=== PATIENT | female | born 1975 | race Caucasian/White ===

== ENCOUNTER 2022-04-02 11:13 | Emergency (ER) | payer OTHER, SELFPAY ==
[2022-04-02 11:27] VITALS: BP 131/81; PULSE 88; RESP 18; TEMP 36.6; O2SAT 99; BMI 35.7
--- NOTE | 2022-04-02 11:56 | CRLHL7_ITS ---
For Patients: As a result of the Century Cures Act, medical imaging exams and procedure reports are released immediately into your electronic medical record. You may view this report before your referring provider. If you have questions, please contact your health care provider. INDICATION: Left lower quadrant pain, nausea. TECHNIQUE: CT abdomen and pelvis without contrast. Coronal and sagittal reformats were generated. COMPARISON: None. FINDINGS: Lower chest: Unremarkable. Liver: Unremarkable. Gallbladder and bile ducts: Unremarkable. No stones or inflammation. No biliary dilation. Spleen: Unremarkable. Splenule in the hilum. Pancreas: Unremarkable. Adrenal glands: Unremarkable. No nodules. Kidneys and Ureters: Bilateral nonobstructing renal calculi, the largest in the interpolar region of the right kidney measures approximately 3 mm (2/65). Fat-density lesion projects exophytically from the interpolar region of the left kidney, compatible with an angiomyolipoma. No hydronephrosis on either side. Lymph Nodes and Retroperitoneum: Unremarkable. Vasculature: Unremarkable. GI tract: Short-segment masslike thickening of the sigmoid colon (2/133). Several diverticula project from the distal descending and sigmoid colon and a small amount of inflammatory changes surround the sigmoid colon in the region of mucosal thickening. Proximal bowel loops are normal in appearance. Normal appendix. Peritoneum/Abdominal Wall: Unremarkable. No mass or infiltration. No free air or free fluid. Pelvic Viscera: Unremarkable. Bladder: Unremarkable. Bones: Unremarkable for age. IMPRESSION: 1. Findings favored to be mild acute sigmoid diverticulitis. However, the sigmoid colon shows short-segment mucosal thickening and follow-up imaging after appropriate therapy would be helpful to exclude underlying mass. 2. Bilateral nonobstructing renal calculi. 3. No other significant CT abnormality within limitations of lack of contrast. Please note that all CT scans at this facility use dose modulation, iterative reconstruction, and/or weight-based dosing when appropriate to reduce radiation dose to as low as reasonably achievable. Dictated by Sergei Marrero MD @ 04/02/2022 1:40:56 PM (Electronically Signed)
[2022-04-02 12:18] LABS: Lactate* 0.9 mmol/L (0.5-1.9)
[2022-04-02 12:24] LABS: Appearance Urine Clear (Clear); Bilirubin Urine Negative (Negative); Blood Urine Trace-intact (Negative); Color Urine Yellow (Yellow); Glucose Urine Negative (Negative); Ketones Urine Negative (Negative); Leukocyte Esterase Urine Negative (Negative); Nitrite Urine Negative (Negative); Protein Urine Negative (Negative); Specific Gravity Urine >= 1.030 (1.000-1.030); Urobilinogen Urine 0.2 (0.2-1.0)
--- NOTE | 2022-04-02 12:27 | ED.ABDPAIN ---
HPI - Abdominal Pain General Date Seen: 04/02/22 Chief Complaint: Abdominal Pain Stated Complaint: lower abdomin pain, dizzy Time Seen by Provider: 04/02/22 11:18 Source: patient Mode of arrival: ambulatory Limitations: no limitations History of Present Illness HPI narrative: Patient is a 46-year-old female, who presents here with left lower quadrant pain, she has had this for 2-3 days but definitely worsening over the last 12 hours, associated with some nausea, but no vomiting, normal bowel movements no dysuria frequency. Feels a little bit like kidney stones in the past, but also a little different. Denies a fevers chills, no chest pain no shortness of breath, no other focal issue such as sore throat runny nose. 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 She does have a history of a hysterectomy in the past but has both ovaries Take some stomach medicine but is really taking no other Tylenol ibuprofen MD elicited complaint: abdominal pain Pertinent past history: kidney stones Onset (ago): day(s) Pain Consistency: constant Location: LLQ Severity: moderate Quality: cramping, stabbing and aching Radiation: none Migration to: no migration Exacerbating factors: movement Relieving factors: nothing Associated symptoms: nausea Treatments prior to arrival: antacids Related Data Hx Last Menstrual Period: Hysterectomy Patient : No Home Medications Medication Instructions Recorded Confirmed cholecalciferol (vitamin D3) 25 25 mcg PO DAILY 01/29/22 03/06/22 mcg (1,000 unit) tablet Previous Rx's Medication Instructions Recorded duloxetine 30 mg capsule,delayed 30 mg PO QDAY #90 caps 03/06/22 release (Cymbalta) methylphenidate HCl 10 mg tablet 10 mg PO BID #60 tabs 03/06/22 Allergies Allergy/AdvReac Type Severity Reaction Status Date / Time No Known Allergies Allergy Unknown Verified 03/06/22 15:44 Review of Systems Status of ROS Reports: 10 or more systems reviewed and unremarkable except as noted in History and below [facility] Medical History (Updated 04/02/22 @ 14:14 by Chema Wren MD) Arthralgia of temporomandibular joint Attention deficit hyperactivity disorder (ADHD), predominantly hyperactive type (~11/2020) Calculus of kidney Chronic migraine Depression Difficulty concentrating (11/2020) History of endometriosis Insomnia Surgical History (Updated 03/06/22 @ 09:04 by Arminda Nevarez MD) History of arthroscopy (1994) History of bilateral breast reduction surgery (2013) History of cystoscopy (2015) History of loop electrical excision procedure (LEEP) (2012) History of suburethral sling procedure (08/08/20) History of tonsillectomy (1997) History of total hysterectomy (2016) Family History (Updated 03/06/22 @ 09:07 by Arminda Nevarez MD) Paternal Grandmother Breast cancer, Onset Age: 80 Maternal Grandfather Colon cancer, Onset Age: 60 Mother Melanoma Depression Aunt Melanoma Maternal Grandmother Melanoma Father Depression Uncle Alcoholism Other Diabetes High blood pressure Stroke Social History (Updated 03/06/22 @ 16:25 by Arminda Nevarez MD) Narrative: Exercise by walking 4 times a week 2 miles Non-smoker Single, 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 [employer], 2 children Social drinker- varies Smoking Status: Never smoker Do you use any of these nicotine containing products: None How often do you have a drink containing alcohol: never How often do you have six or more drinks on one occasion: Never AUDIT-C Alcohol total score: 0 Non-prescribed substance use: denies use Little interest or pleasure in doing things: several days Feeling down, depressed, or hopeless: several days Exam Narrative: Exam Narrative: Patient is a hernan lady seen in room 1, vital signs are reviewed and normal, pupils equal round reactive to light there is no scleral icterus or redness, TMs are normal, oropharynx is normal, neck is supple full range of motion is elicited with absence of meningismus, no lymphadenopathy anterior posterior chains. Cranial nerves 3-12 are normal, chest is good air entry bilaterally with no wheezing crackles noted, heart sounds are normal, abdomen is soft tenderness is noted on mild palpation in the left lower quadrant, no peritoneal signs, bowel sounds are quiet, there is no organomegaly, no hernias noted. Lower extremities are all normal as are upper extremities with symmetrical strength, distally and proximally normal normal cap refill and normal sensation. Const: Vital Signs, click to edit/add: Vital Signs - 24 hr 04/02/22 11:27 Temperature 97.8 F Pulse Rate [Right Pulse Oximeter] 88 Respiratory Rate 18 Blood Pressure [Ri ght Upper Arm] 131/81 Pulse Oximetry 99 Oxygen Delivery Me thod Room Air Documenting provider has reviewed patient's vital signs: yes Course Course Hospital Course: I discussed with the patient that the CT was confirmatory for diverticulitis, no evidence of perforation or abscess. We can least try this as an outpatient, we went over medications use, and worsening condition, when to follow up in the emergency room. Do recommend following up in 10 days with primary care, consideration a follow-up CT as there was thickening of her sigmoid, to exclude other causes. She was comfortable this plan, we will give her little bit more pain medication as her pain came back. Vital Signs Vital signs: Initial Vital Signs Temperature 97.8 F 04/02/22 11:27 Temperature Source Temporal Artery Scan 04/02/22 11:27 Pulse Rate 88 04/02/22 11:27 Respiratory Rate 18 04/02/22 11:27 Blood Pressure 131/81 04/02/22 11:27 Blood Pressure Mean 97 04/02/22 11:27 Blood Pressure Position Sitting 04/02/22 11:27 Pulse Oximetry 99 04/02/22 11:27 Oxygen Delivery Method 04/02/22 11:27 Vital Signs Temperature 97.8 F 04/02/22 11:27 Pulse Rate 88 04/02/22 11:27 Respiratory Rate 18 04/02/22 11:27 Blood Pressure 131/81 04/02/22 11:27 Pulse Oximetry 99 04/02/22 11:27 Oxygen Delivery Method 04/02/22 11:27 Temperature 97.8 F 04/02/22 11:27 Pulse Rate 88 04/02/22 11:27 Respiratory Rate 18 04/02/22 11:27 Blood Pressure 131/81 04/02/22 11:27 Pulse Oximetry 99 04/02/22 11:27 Oxygen Delivery Method 04/02/22 11:27 MDM - Abdominal Pain MDM Narrative Medical decision making narrative: I discussed with the patient that we will proceed with a workup IV will be started given her level obtain I think at Toradol and morphine would be appropriate along with some Zofran for nausea, IV fluids NPO status and CT along with a blood tests. Urinalysis will also be ordered. Differential Diagnosis Differential diagnosis: Likely abdominal pain, acute appendicitis, calculus of kidney, constipation, diverticulitis, endometriosis, gastroenteritis and small bowel obstruction Medical Records Attestation: I reviewed the patient's medical records. Lab Data Attestation: I reviewed the patient's lab results. Labs: Lab Results 04/02/22 04/02/22 04/02/22 Range/Units 12:10 12:10 12:10 WBC 10.54 (4.50-11.00) K/uL RBC 4.41 (4.00-5.20) m/uL Hgb 13.3 (12.0-16.0) gm/dL Hct 40.3 (33.0-51.0) % MCV 91 (80-100) fL MCH 30 (26-34) pg MCHC 33 (32-36) gm/dL RDW Coeff of Reg 12.4 (11.5-15.5) % Plt Count 400 (140-440) K/uL Neut % (Auto) 76.1 H (42.0-72.0) % Lymph % (Auto) 13.2 L (20-44) % Elliott % (Auto) 8.5 (0.0-11.0) % Eos % (Auto) 1.6 (0.0-7.0) % Baso % (Auto) 0.4 (0.0-3.0) % Neut # (Auto) 8.00 H (1.7-7.0) K/uL Lymph # (Auto) 1.40 (0.90-2.90) K/uL Elliott # (Auto) 0.90 (0.00-0.90) K/UL Eos # (Auto) 0.17 (0.00-0.50) K/uL Baso # (Auto) 0.04 (0.00-0.30) K/uL Abs Immat Gran (auto) 0.02 (0.00-0.30) K/uL Sodium 135 (135-149) mmol/L Potassium 4.6 (3.6-5.1) mmol/L Chloride 103 (96-114) mmol/L Carbon Dioxide 25 (20-32) mmol/L BUN 17 (5-24) mg/dL Creatinine 0.7 (0.5-1.5) mg/dL Estimated Creat Clear 96.01 Estimated GFR 109 ml/min Glucose 85 (60-115) mg/dL Lactate 0.9 (0.5-1.9) mmol/L Calcium 8.0 L (8.4-10.6) mg/dL Total Bilirubin 0.5 (0.1-1.5) mg/dL Direct Bilirubin 0.0 (0.0-0.5) mg/dL AST 17 (12-35) U/L ALT 9 (4-35) U/L Alkaline Phosphatase 59 (40-150) U/L C-Reactive Protein 4.5 H (0.5-1.0) mg/dL Total Protein 7.1 (6.0-8.3) g/dL Albumin 4.4 (3.3-5.0) g/dL Lipase 79 (23-300) U/L Urine Color (Yellow) Urine Appearance (Clear) Urine pH (5.0-8.5) Ur Specific [place] (1.000-1.030) Urine Protein (Negative) Urine Glucose (UA) (Negative) Urine Ketones (Negative) Urine Blood (Negative) Urine Nitrite (Negative) Urine Bilirubin (Negative) Urine Urobilinogen (0.2-1.0) Ur Leukocyte Esterase (Negative) Urine RBC (0-2) Urine WBC (0-5) Ur Squamous Epith Cells (None-Few) Urine Bacteria (None) SARS-CoV-2 (PCR) (Negative) Influenza Type A (PCR) (Negative) Influenza Type B (PCR) (Negative) RSV (PCR) (Negative) 04/02/22 04/02/22 Range/Units 12:10 12:10 WBC (4.50-11.00) K/uL RBC (4.00-5.20) m/uL Hgb (12.0-16.0) gm/dL Hct (33.0-51.0) % MCV (80-100) fL MCH (26-34) pg MCHC (32-36) gm/dL RDW Coeff of Reg (11.5-15.5) % Plt Count (140-440) K/uL Neut % (Auto) (42.0-72.0) % Lymph % (Auto) (20-44) % Elliott % (Auto) (0.0-11.0) % Eos % (Auto) (0.0-7.0) % Baso % (Auto) (0.0-3.0) % Neut # (Auto) (1.7-7.0) K/uL Lymph # (Auto) (0.90-2.90) K/uL Elliott # (Auto) (0.00-0.90) K/UL Eos # (Auto) (0.00-0.50) K/uL Baso # (Auto) (0.00-0.30) K/uL Abs Immat Gran (auto) (0.00-0.30) K/uL Sodium (135-149) mmol/L Potassium (3.6-5.1) mmol/L Chloride (96-114) mmol/L Carbon Dioxide (20-32) mmol/L BUN (5-24) mg/dL Creatinine (0.5-1.5) mg/dL Estimated Creat Clear Estimated GFR ml/min Glucose (60-115) mg/dL Lactate (0.5-1.9) mmol/L Calcium (8.4-10.6) mg/dL Total Bilirubin (0.1-1.5) mg/dL Direct Bilirubin (0.0-0.5) mg/dL AST (12-35) U/L ALT (4-35) U/L Alkaline Phosphatase (40-150) U/L C-Reactive Protein (0.5-1.0) mg/dL Total Protein (6.0-8.3) g/dL Albumin (3.3-5.0) g/dL Lipase (23-300) U/L Urine Color Yellow (Yellow) Urine Appearance Clear (Clear) Urine pH 6.0 (5.0-8.5) Ur Specific [place] >= 1.030 (1.000-1.030) Urine Protein Negative (Negative) Urine Glucose (UA) Negative (Negative) Urine Ketones Negative (Negative) Urine Blood Trace-intact A (Negative) Urine Nitrite Negative (Negative) Urine Bilirubin Negative (Negative) Urine Urobilinogen 0.2 (0.2-1.0) Ur Leukocyte Esterase Negative (Negative) Urine RBC 2-5 A (0-2) Urine WBC 2-5 (0-5) Ur Squamous Epith Cells Few (None-Few) Urine Bacteria Moderate A (None) SARS-CoV-2 (PCR) Negative SARS-CoV-2 (Negative) Influenza Type A (PCR) Negative PCR FLU A (Negative) Influenza Type B (PCR) Negative PCR FLU B (Negative) RSV (PCR) Negative PCR RSV (Negative) Imaging Data CT Chest/Ab/Pelvis: Attestation: I have reviewed the pertinent imaging results. My impression: Diverticulitis of the sigmoid, with no perforation or abscess, nonobstructing renal calculi Radiologist's impression: Patient: JUAN CARLOS VALDEZ Facility: [facility] Site . Site : [id number] Study: CT Abdomen/Pelvis WITHOUT-04/02/2022 12:26:28 PM Ordering Physician: Siena Bear Final Report: INDICATION: Left lower quadrant pain, nausea. TECHNIQUE: CT abdomen and pelvis without contrast. Coronal and sagittal reformats were generated. COMPARISON: None. FINDINGS: Lower chest: Unremarkable. Liver: Unremarkable. Gallbladder and bile ducts: Unremarkable. No stones or inflammation. No biliary dilation. Spleen: Unremarkable. Splenule in the hilum. Pancreas: Unremarkable. Adrenal glands: Unremarkable. No nodules. Kidneys and Ureters: Bilateral nonobstructing renal calculi, the largest in the interpolar region of the right kidney measures approximately 3 mm (2/65). Fat-density lesion projects exophytically from the interpolar region of the left kidney, compatible with an angiomyolipoma. No hydronephrosis on either side. Lymph Nodes and Retroperitoneum: Unremarkable. Vasculature: Unremarkable. GI tract: Short-segment masslike thickening of the sigmoid colon (2/133). Several diverticula project from the distal descending and sigmoid colon and a small amount of inflammatory changes surround the sigmoid colon in the region of mucosal thickening. Proximal bowel loops are normal in appearance. Normal appendix. Peritoneum/Abdominal Wall: Unremarkable. No mass or infiltration. No free air or free fluid. Pelvic Viscera: Unremarkable. Bladder: Unremarkable. Bones: Unremarkable for age. IMPRESSION: 1. Findings favored to be mild acute sigmoid diverticulitis. However, the sigmoid colon shows short-segment mucosal thickening and follow-up imaging after appropriate therapy would be helpful to exclude underlying mass. 2. Bilateral nonobstructing renal calculi. 3. No other significant CT abnormality within limitations of lack of contrast. Please note that all CT scans at this facility use dose modulation, iterative reconstruction, and/or weight-based dosing when appropriate to reduce radiation dose to as low as reasonably achievable. Dictated by Sergei Marrero MD @ 04/02/2022 1:40:56 PM (Electronic Signature) Discharge Plan Discharge Clinical Impression: Diverticulitis large intestine Patient Disposition: Home w/ Parent or Adult Condition: Stable Instructions: Diverticulitis (ED), GI (Gastrointestinal) Soft Diet (ED) Additional Instructions: Home, rest, use of medications as directed, I would recommend off work for the next 2 -3 days, follow-up with primary care after you improved usually in about 7-10 days, and consideration of repeating imaging, to ensure that the thickening was only due to the diverticulitis. Return here if increasing abdominal pain fevers chills nausea vomiting Prescriptions: No Action cholecalciferol (vitamin D3) 25 mcg (1,000 unit) tablet 25 mcg PO DAILY methylphenidate HCl 10 mg tablet 10 mg PO BID Qty: 60 0RF Rx Instructions: 1 tab breakfast and one with lunch, in person appointment August duloxetine [Cymbalta] 30 mg capsule,delayed release(DR/EC) 30 mg PO QDAY Qty: 90 1RF Follow Up/Referrals: Arminda Nevarez MD [Primary Care Provider] - Stand Alone Forms: [facility] Info Instructions
[2022-04-02 12:28] LABS: Basophils Absolute Auto 0.04 K/uL (0.00-0.30); Basophils Percent Auto 0.4 % (0.0-3.0); Eosinophils Absolute Auto 0.17 K/uL (0.00-0.50); Eosinophils Percent Auto 1.6 % (0.0-7.0); Hematocrit 40.3 % (33.0-51.0); Hemoglobin* 13.3 gm/dL (12.0-16.0); Immature Granulocytes Abs Auto 0.02 K/uL (0.00-0.30); Lymphocytes Percent Auto 13.2 % (20-44); Mean Corpuscular HGB Conc 33 gm/dL (32-36); Mean Corpuscular Hemoglobin 30 pg (26-34); Mean Corpuscular Volume 91 fL (80-100); Monocytes Percent Auto 8.5 % (0.0-11.0); Neutrophils Percent Auto 76.1 % (42.0-72.0); RDW Coefficient of Variation % 12.4 % (11.5-15.5); Red Blood Count 4.41 m/uL (4.00-5.20); White Blood Count* 10.54 K/uL (4.50-11.00)
[2022-04-02 12:34] LABS: Chloride* 103 mmol/L (96-114)
[2022-04-02 12:35] LABS: Albumin* 4.4 g/dL (3.3-5.0); Potassium* 4.6 mmol/L (3.6-5.1); Sodium* 135 mmol/L (135-149)
[2022-04-02] MEDS: KETOROLAC 30 MG/ML inj IVP (12:35)
[2022-04-02] MEDS: ONDANSETRON 2 MG/ML inj 4 MG IVP (12:35)
[2022-04-02 12:37] LABS: Creatinine* 0.7 mg/dL (0.5-1.5); Est. Creatinine Clearance* 96.01; Estimated Glomerular Filt Rate 109 ml/min
[2022-04-02 12:38] LABS: Alkaline Phosphatase* 59 U/L (40-150); Aspartate Amino Transferase* 17 U/L (12-35); Bilirubin Total* 0.5 mg/dL (0.1-1.5); Blood Urea Nitrogen* 17 mg/dL (5-24); Carbon Dioxide* 25 mmol/L (20-32); Lipase* 79 U/L (23-300); Total Protein* 7.1 g/dL (6.0-8.3)
[2022-04-02 12:39] LABS: Alanine Aminotransferase* 9 U/L (4-35); Glucose* 85 mg/dL (60-115)
[2022-04-02] MEDS: 0.9 % SODIUM CHLORIDE 1000 ml 1,000 ML IV (12:39)
[2022-04-02] MEDS: MORPHINE 2 MG/ML inj IVP (12:39)
[2022-04-02 12:41] LABS: C Reactive Protein* 4.5 mg/dL (0.5-1.0)
--- OUTSIDE RECORDS SUMMARY | 2022-04-02 12:41 | XMS_ITS | Encounter Summary ---
:1975 Author Organization [place] Address [address] [facility] [place] [address] Care Team Providers Name Role Phone Esmer Roland MD Primary Care Provider [phone] Reason for Visit Reason Comments Recheck Medication Encounter Details Date Type Department Care Team Description 06/16/2015 Office Visit [facility] Esmer Roland d epressive disorder, recurrent episode, mild (H) (Primary Dx); Clinic Sara Byrd MD Anxiety; [place] [address] [facility] [place] Routine general medical examination at a health care facility; [facility], [address] [place], [place] Vitamin D deficiency; [place] [address] CARDIOVASCULAR SCREENING; LDL GOAL LESS THAN 160; [id number] obesity due to excess calori ([facility]) Social History Tobacco Use Types Packs/Day Years Used Date Smoking Tobacco: Former Smokeless Tobacco: Never Comments: Very Occasional Alcohol Use Standard Drinks/Week Comments Yes 0 (1 standard drink = 0.6 oz pure 1 TIME A a week(1 glass of wine) 1 alcohol) qo weekend Sex Assigned at Date Recorded Not on file documented as of this encounter Last Filed Vital Signs Vital Sign Reading Time Taken Comments Blood Pressure 110/60 06/16/2015 8:36 AM STUDIO CONTROL OPERATOR Pulse 70 06/16/2015 8:36 AM STUDIO CONTROL OPERATOR Temperature - - Respiratory Rate 16 06/16/2015 8:36 AM STUDIO CONTROL OPERATOR Oxygen Saturation - - Inhaled Oxygen Concentration - - Weight 107.5 kg (237 lb) 06/16/2015 8:36 AM STUDIO CONTROL OPERATOR Height 167.6 cm (5' 6) 06/16/2015 8:36 AM STUDIO CONTROL OPERATOR Body Mass Index 38.25 06/16/2015 8:36 AM STUDIO CONTROL OPERATOR documented in this encounter Progress Notes Esmer Roland MD - 06/16/2015 8:04 AM CST SUBJECTIVE: Dariana Osman is a 39 year old female who presents to clinic today for the following health issues: Depression and Anxiety Follow-Up ?? Status since last visit: Worsened , not as activity, staying at home more, withdrawing some, goesto bed early, sleeping to much, but wakes up during the night often, on lexapro for a long time now,x 2 yrs now, last time she used xanax was the summer. Wondering if she needs to change the lexapro now. Taking 40mg daily. ?? Other associated symptoms:None ?? Complicating factors: ?? Significant life event: No ?? Current substance abuse: Alcohol, used to be a few times per week, now down to once per week, is not a problem PHQ-9 SCORE 05/27/2014 07/06/2014 01/06/2015 Total Score 6 - 6 Total Score MyChart - 2 - EUGENE-7 SCORE 05/09/2014 05/27/2014 01/06/2015 Total Score 2 4 4 PHQ-9 South Korean PHQ-9 Any Language GAD7 ?? Amount of exercise or physical activity: None ?? Problems taking medications regularly: No ?? Medication side effects: none ?? Diet: eats out a lot, over eating, skips breakfast, weight gain lately PROBLEMS TO ADD ON...reviewed pap, seeing OBGYN regularly Problem list and histories reviewed & adjusted, as indicated. Additional history: as documented BP Readings from Last 3 Encounters: 06/16/15 110/60 02/02/15 104/66 01/06/15 110/66 Wt Readings from Last 3 Encounters: 06/16/15 237 lb (107.502 kg) 02/02/15 229 lb 4.8 oz (104.01 kg) 01/06/15 229 lb (103.874 kg) ROS: Constitutional, HEENT, cardiovascular, pulmonary, gi and gu systems are negative, except as otherwise noted. OBJECTIVE: BP 110/60 mmHg Pulse 70 Resp 16 Ht 5' 6 (1.676 m) Wt 237 lb (107.502 kg) BMI 38.27 kg/m2 Body mass index is 38.27 kg/(m^2). GENERAL: healthy, alert and no distress MS: no gross musculoskeletal defects noted, no edema SKIN: no suspicious lesions or rashes NEURO: Normal strength and tone, mentation intact and speech normal PSYCH: mentation appears normal, affect normal/bright Diagnostic Test Results: none ASSESSMENT/PLAN: 1. Major depressive disorder, recurrent episode, mild (HCC) Stop lexapro Potential medication side effects were discussed with the patient; let me know if any occur. - DULoxetine (CYMBALTA) 60 MG capsule; Take 1 capsule (60 mg) by mouth daily Dispense: 90 capsule; Refill: 1 - Comprehensive metabolic panel - CBC with platelets - TSH with free T4 reflex 2. Anxiety stable Refilled OCPs - norgestimate-ethinyl estradiol (ORTHO-CYCLEN, SPRINTEC) 0.25-35 MG-MCG per tablet; Take 1 tablet by mouth daily Dispense: 90 tablet; Refill: 3 4. Vitamin D deficiency rechecking - Vitamin D Deficiency 5. CARDIOVASCULAR SCREENING; LDL GOAL LESS THAN 160 - Lipid panel reflex to direct LDL Work on weight loss Regular exercise Follow up 1 month Esmer Roland MD [facility] IO CONTROL OPERATOR documented in this encounter Nursing Notes Mayela Reese RN - 06/16/2015 8:37 AM CST Chief Complaint Patient presents with ??? Recheck Medication Initial BP 110/60 mmHg Pulse 70 Resp 16 Ht 5' 6 (1.676 m) Wt 237 lb (107.502 kg) BMI 38.27 kg/m2 Estimated body mass index is 38.27 kg/(m^2) as calculated from the following: Height as of this encounter: 5' 6 (1.676 m). Weight as of this encounter: 237 lb (107.502 kg). BP completed using cuff size: everton Reese RN IO CONTROL OPERATOR documented in this encounter Plan of Treatment Not on filedocumented as of this encounter Procedures Procedure Name Priority Date/Time Associated Diagnosis Comme nts VITAMIN D DEFICIENCY Routine 06/16/2015 8:31 Vitamin D deficie ncy Results for this SCREENING AM STUDIO CONTROL OPERATOR procedure are i n the results section. TSH WITH FREE T4 Routine 06/16/2015 8:31 Major depressive Resu lts for this REFLEX AM STUDIO CONTROL OPERATOR disorder, recurrent procedur e are in episode, mild (H) the result s section. LIPID REFLEX TO Routine 06/16/2015 8:31 CARDIOVASCULAR Results for this DIRECT LDL PANEL AM STUDIO CONTROL OPERATOR SCREENING; LDL GOAL proc edure are in LESS THAN 160 the results section. COMPREHENSIVE Routine 06/16/2015 8:31 Major depressive Results for this METABOLIC PANEL AM STUDIO CONTROL OPERATOR disorder, recurrent proce dure are in episode, mild (H) the result s section. CBC WITH PLATELETS Routine 06/16/2015 8:31 Major depressive Re sults for this AM STUDIO CONTROL OPERATOR disorder, recurrent procedur e are in episode, mild (H) the result s section. documented in this encounter Results (ABNORMAL) Lipid panel reflex to direct LDL (06/16/2015 8:31 AM STUDIO CONTROL OPERATOR) Analysis Performed At Patho logist Time Signature Cholesterol 158 <200 mg/dL [facility] Triglycerides 204 (H) <150 mg/dL [facility] Comment: Borderline high: ??150-199 mg/dl High: ? 200-499 mg/dl Very high: ? >499 mg/dl Fasting specimen HDL Cholesterol 37 (L) >49 mg/dL [facility] LDL Cholesterol Calculated 80 <100 mg/dL [facility] Comment: Desirable: <100 mg/dl Non HDL Cholesterol 121 <130 mg/dL [facility] Specimen Anatomical Collection Method Collection Time Receive d Time (Source) Location / / Volume Laterality Blood specimen 06/16/2015 8:31 AM 016 8:32 (specimen) STUDIO CONTROL OPERATOR AM STUDIO CONTROL OPERATOR Esmer Roland MD LAB - BLOOD ORDERABLES Performing Organization Address City/State/ZIP Code Phon e Number [facility] [address] [place] [address] TSH with free T4 reflex (06/16/2015 8:31 AM STUDIO CONTROL OPERATOR) athologist Signature TSH 2.98 0.40 - 4.00 [facility] mU/L [facility] Specimen Anatomical Collection Method Collection Time Receive d Time (Source) Location / / Volume Laterality Blood specimen 06/16/2015 8:31 AM 016 8:32 (specimen) STUDIO CONTROL OPERATOR AM STUDIO CONTROL OPERATOR Esmer Roland MD LAB - BLOOD ORDERABLES Performing Organization Address City/[facility]/ZIP Code Phon e Number [facility] [address] [place] [address] CBC with platelets (06/16/2015 8:31 AM STUDIO CONTROL OPERATOR) athologist Signature WBC 9.2 4.0 - 11.0 [place] 10e9/L [facility] RBC Count 4.77 3.8 - 5.2 [place] 10e12/L [facility] Hemoglobin 14.2 11.7 - [facility] 15.7 g/dL [facility] Hematocrit 42.5 35.0 - [facility] 47.0 % [facility] MCV 89 78 - 100 [place] fl [facility] MCH 29.8 26.5 - [facility] 33.0 pg [facility] MCHC 33.4 31.5 - [facility] 36.5 g/dL [facility] RDW 12.3 10.0 - [place] 15.0 % [facility] Platelet Count 292 150 - 450 [place] 10e9/L [facility] Specimen Anatomical Collection Method Collection Time Receive d Time (Source) Location / / Volume Laterality Blood specimen 06/16/2015 8:31 AM 016 8:32 (specimen) STUDIO CONTROL OPERATOR AM STUDIO CONTROL OPERATOR Esmer Roland MD LAB - BLOOD ORDERABLES Performing Organization Address City/[facility]/ZIP Code Phon e Number [facility] [place] [address] (ABNORMAL) Comprehensive metabolic panel (06/16/2015 8:31 AM STUDIO CONTROL OPERATOR) athologist Signature Sodium 140 133 - 144 [place] mmol/L [facility] Potassium 4.4 3.4 - 5.3 [place] mmol/L [facility] Chloride 107 94 - 109 [place] mmol/L [facility] Carbon Dioxide 24 20 - 32 [place] mmol/L [facility] Anion Gap 9 3 - 14 [place] mmol/L [facility] Glucose 87 70 - 99 [place] mg/dL [facility] Urea Nitrogen 13 7 - 30 [place] mg/dL [facility] Creatinine 0.94 0.52 - [place] 1.04 mg/dL [facility] GFR Estimate 66 >60 [place] mL/min/1.[address] [facility] Comment: Non GFR Calc GFR Estimate If Black 80 >60 mL/min/1.7m2 [facility] Comment: GFR Calc Calcium 8.4 (L) 8.5 - 10.1 mg/dL [facility] Bilirubin Total 0.2 0.2 - 1.3 mg/dL [facility] Albumin 3.5 3.4 - 5.0 g/dL [facility] Protein Total 6.8 6.8 - 8.8 g/dL [facility] Alkaline Phosphatase 66 40 - 150 U/L [facility] ALT 17 0 - 50 U/L [facility] AST 10 0 - 45 U/L [facility] Specimen Anatomical Collection Method Collection Time Receive d Time (Source) Location / / Volume Laterality Blood specimen 06/16/2015 8:31 AM 016 8:32 (specimen) STUDIO CONTROL OPERATOR AM STUDIO CONTROL OPERATOR Esmer Roland MD LAB - BLOOD ORDERABLES Performing Organization Address City/State/ZIP Code Phon e Number [facility] [address] [place] [address] Vitamin D Deficiency (06/16/2015 8:31 AM STUDIO CONTROL OPERATOR) athologist Signature Vitamin D 28 20 - 75 [facility] Deficiency ug/L [place] [facility] Comment: Season, race, dietary intake, and treatm ent affect the concentration of 91-imcqwcr-Cmfisvr D. Values may decrea se during winter months and increase during summer months. Values 20-29 ug/L may indicate Vitamin D insufficiency and values <20 ug/L may indicate Vitami n D deficiency. Vitamin D determination is routinely pe rformed by an immunoassay specific for 25 hydroxyvitamin D3. ??If an individua l is on vitamin D2 (ergocalciferol) supplementation, please specify 25 [place] v itamin D2 and D3 level determination by LCMSMS test VITD23. Specimen Anatomical Collection Method Collection Time Receive d Time (Source) Location / / Volume Laterality Blood specimen 06/16/2015 8:31 AM 016 8:32 (specimen) STUDIO CONTROL OPERATOR AM STUDIO CONTROL OPERATOR Esmer Roland MD LAB - BLOOD ORDERABLES Performing Organization Address City/State/ZIP Code Phon e Number [facility] [address] documented in this encounter Visit Diagnoses Diagnosis Major depressive disorder, recurrent epi sode, mild (H) - Primary Major depressive disorder, recurrent epi sode, mild Anxiety Anxiety state, unspecified Routine general medical examination at a health care facility Vitamin D deficiency Unspecified vitamin D deficiency CARDIOVASCULAR SCREENING; LDL GOAL LESS THAN 160 obesity due to excess calories (HCC) documented in this encounter Additional Health Concerns Assessment Noted Time PHQ-9 Depression Total Score: 12 06/17/2015 7:51 AM CS T documented as of this encounter Care Teams Software Verification Engineer Relationship Specialty Start Date End Date Esmer Roland MD PCP - General Family Practice 09/21/10 01/29/17 documented as of this encounter
--- OUTSIDE RECORDS SUMMARY | 2022-04-02 12:41 | XMS_ITS | Encounter Summary ---
:1975 Author Organization [place] Address [facility] [place] [address] Care Team Providers Name Role Phone Esmer Roland MD Primary Care Provider [phone] Encounter Details Date Type Department Care Team Description 04/04/2015 E-Visit [facility] Yony Garcia (Primary Clinic [place]C [place]) [address] [facility], [address] [place] [address] [address] [place] [address] [place], [place] [phone] (Wo rk) [address] [phone] Social History Tobacco Use Types Packs/Day Years Used Date Smoking Tobacco: Former Smokeless Tobacco: Never Comments: Very Occasional Alcohol Use Standard Drinks/Week Comments Yes 0 (1 standard drink = 0.6 oz pure 1 TIME A a week(1 glass of wine) 1 alcohol) qo weekend Sex Assigned at Date Recorded Not on file documented as of this encounter Plan of Treatment Not on filedocumented as of this encounter Visit Diagnoses Diagnosis Foot swelling - Primary Swelling of limb documented in this encounter Care Teams Dermatology Specialist Relationship Specialty Start Date End Date Esmer Roland MD PCP - General Family Practice 09/21/10 01/29/17 documented as of this encounter
--- OUTSIDE RECORDS SUMMARY | 2022-04-02 12:41 | XMS_ITS | Encounter Summary ---
:1975 Author Organization [place] Address [address] [place] [address] Care Team Providers Name Role Phone Esmer Roland MD Primary Care Provider Reason for Visit Reason Onset Date Comments Refill Request 06/05/2015 lexapro Encounter Details Date Type Department Care Team Description 06/05/[address] [facility] Esmer Roland Refill Request Clinic [place] MD [place] (lexapro) [address] [place] [address] SONJA BENAVIDEZ 5 5068 [id number] [phone] Social History Tobacco Use Types Packs/Day Years Used Date Smoking Tobacco: Former Smokeless Tobacco: Never Comments: Very Occasional Alcohol Use Standard Drinks/Week Comments Yes 0 (1 standard drink = 0.6 oz pure 1 TIME A a week(1 glass of wine) 1 alcohol) qo weekend Sex Assigned at Date Recorded Not on file documented as of this encounter Miscellaneous Notes Telephone Encounter - Anni Marquez [facility] - 06/06/2015 12:19 PM RELAY ENGINEER Prescription approved per [facility] Refill Protocol - should address further refills at Jun 16 appointment. Juli Marquez, Pharm.D. [facility] Flo Pharmacist On behalf of [facility] Y ENGINEER Telephone Encounter - Deidre Alas - 06/05/2015 12:12 PM CST Last Written Prescription Date: 01/06/15 Last Fill Quantity: 180, # refills: 0 Last Office Visit with [facility] primary care provider: 01/06/15 Next 5 appointments (look out 90 days) Jun 16, 2015 8:00 AM MyChart Long with Esmer Roland MD [facility] [id number] [place] [address], [address] [facility] [phone] Jul 20, 2015 2:15 PM SHORT with Jeimy Christensen DO [facility] ([facility] [address] [place] [phone] Last PHQ-9 score on record= PHQ-9 SCORE 01/06/2015 Total Score 6 Total Score MyChart - Y ENGINEER documented in this encounter Plan of Treatment Not on filedocumented as of this encounter Visit Diagnoses Diagnosis MDD (major depressive disorder), recurre nt episode, mild (H) - Primary Major depressive disorder, recurrent epi sode, mild documented in this encounter Care Teams Geochemist Relationship Specialty Start Date End Date Esmer Roland MD PCP - General Family Practice 09/21/10 01/29/17 documented as of this encounter
--- OUTSIDE RECORDS SUMMARY | 2022-04-02 12:41 | XMS_ITS | Encounter Summary ---
:1975 Author Organization [place] Address [address] [facility] [place] [address] Care Team Providers Name Role Phone Esmer Roland MD Primary Care Provider Encounter Details Date Type Department Care Team Description 04/28/2015 Radiant Appointment [facility] Jeimy Christensen xcessive or frequent Clinic [facility] menstruation [address] [facility] [phone] Social History Tobacco Use Types Packs/Day Years [...] Name Priority Date/Time Associated Diagnosis Comme nts US PELVIC Routine 07/20/2015 2:26 Excessive or Results for this TRANSABDOMINAL AND PM HAND OUTSIDE CUTTER frequent procedure are in TRANSVAGINAL menstruation the results section. documented in this encounter Results US Pelvic Complete with Transvaginal (07/20/2015 2:26 PM HAND OUTSIDE CUTTER) Anatomical Region Laterality Modality Abdomen/Pelvis Ultrasound Specimen (Source) Anatomical Location Collection Method / Collectio n Time Received Time / Laterality Volume Impressions 07/21/2015 6:20 AM HAND OUTSIDE CUTTER #: [id number] Study Notes ? Lizzette Bell on 07/20/2015 2:29 PM [facility] [address] [place] [address] ULTRASOUND - PELVIC STUDENT ASSISTANT Referring MD: Jeimy Christensen Primary Clinic: [facility] CLINICAL INFORMATION Indications for ultrasound: Bleeding/Menses - Menorrhagia (heavy men ses) LMP: 24 Jun 2015 Hormones: OCP's Measurements: Uterus: 9.9 x 3.9 x 5.2 cm. Position is anteverted. Contour is smth/ reg. Endo cav: 11.6 mm Irregular Cervix: Wnl Right ovary: 4.4 x 3.6 x 3.5 cm. Simple cyst 3.6 x 3.0 x 2.9cm Left ovary: Nv Cul de sac: no free fluid Complete pelvic ultrasound using realtim e transabdominal and transvaginal scanning Simple cyst R ovary; otherwise, normal p elvic sonographic findings. ?Suggest repeat ultrasound in 2- 3 months or as clinically indicated Lois BANERJEE Narrative 07/21/2015 6:20 AM HAND OUTSIDE CUTTER Order Jeimy Christensen DO IMG US ORDERABLES documented in this encounter Visit Diagnoses Diagnosis Excessive or frequent menstruation documented in this encounter Care Teams Rivet Flunky Relationship Specialty Start Date End Date Esmer Roland MD PCP - General Family Practice 09/21/10 01/29/17 documented as of this encounter
--- OUTSIDE RECORDS SUMMARY | 2022-04-02 12:41 | XMS_ITS | Encounter Summary ---
:1975 Author Organization [place] Address [address] [facility] [place] [address] Care Team Providers Name Role Phone Esmer Roland MD Primary Care Provider [phone] Reason for Visit Reason Comments Minor Procedure endometrial biopsy Encounter Details Date Type Department Care Team Description 07/20/2015 Office Visit [facility] Jeimy Christensen Abnormal uterine [facility] DO Verito bleeding (AUB) [place] [address] (Primary Dx) [address] [place], [place] [address] [address] [place], [place] [phone] [address] (Work) [phone] Social History Tobacco Use Types Packs/Day Years [...] Sign Reading Time Taken Comments Blood Pressure 124/84 07/20/2015 1:49 PM ELA TEACHER Pulse 78 07/20/2015 1:49 PM ELA TEACHER Temperature 36.9 ??C (98.5 ??F) 07/20/2015 1:49 PM ELA TEACHER Respiratory Rate - - Oxygen Saturation 97% 07/20/2015 1:49 PM ELA TEACHER Inhaled Oxygen Concentration - - Weight 109.1 kg (240 lb 9.6 oz) 07/20/2015 1:49 PM ELA TEACHER Height 167.6 cm (5' 6) 07/20/2015 1:49 PM ELA TEACHER Body Mass Index 38.83 07/20/2015 1:49 PM ELA TEACHER documented in this encounter Patient Instructions Patient InstructionsJeimy Christensen DO - 07/20/2015 2:26 PM CST reyna will call you Dr. Jeimy Christensen DO Obstetrics and Gynecology [facility] TEACHER documented in this encounter Progress Notes Jeimy Christensen DO - 07/20/2015 2:20 PM CST S: Menorrhagia O: BP 124/84 mmHg Pulse 78 Temp(Src) 98.5 ??F (36.9 ??C) (Oral) Ht 5' 6 (1.676 m) Wt 240 lb9.6 oz (109.135 kg) BMI 38.85 kg/m2 SpO2 97% LMP 06/29/2015 Procedure: Endometrial biopsy Indication: Menometrorrhagia with age >35 Endometrial cells on pap and age >40 Discussed risk of bleeding, infection, uterine perforation, cramping pain. Pt agreed to proceed withprocedure after all questions answered. Speculum placed and cervix visualized. Cervix cleansed with betadine x 3. Tenaculum placed on anterior lip of the cervix. Endometrial biopsy pipelle passed through cervix and uterus sounded to 7 cm. Biopsy specimen collected with one pass with return of moderate amount of pink tissue. Specimen placed in a labeled container and set aside to be sent to pathology. Tenaculum removed from the cervix and sites hemostatic. No bleeding noted from cervical os. Patient tolerated the procedure well. There were no apparent complications and bleeding was minimal. She is instructed to use no tampons and have no intercourse for the next 5 days. Assessment: 39 y/o Plan: Will notify of pathology Dr. Jeimy Christensen DO Obstetrics and Gynecology [facility] TEACHER documented in this encounter Nursing Notes Mary Diego CMA - 07/20/2015 1:53 PM CST Chief Complaint Patient presents with ??? Minor Procedure endometrial biopsy Initial BP 124/84 mmHg Pulse 78 Temp(Src) 98.5 ??F (36.9 ??C) (Oral) Ht 5' 6 (1.676 m) Wt 240 lb 9.6 oz (109.135 kg) BMI 38.85 kg/m2 SpO2 97% LMP 06/29/2015 Estimated body mass index is 38.85 kg/(m^2) as calculated from the following: Height as of this encounter: 5' 6 (1.676 m). Weight as of this encounter: 240 lb 9.6 oz (109.135 kg). BP completed using cuff size: everton Diego CMA TEACHER documented in this encounter Miscellaneous Notes Addendum Note - Mary Diego CMA - 07/20/2015 2:31 PM ELA TEACHER Addended by: MAYR DIEGO on: 07/20/2015 02:31 PM Modules accepted: Orders TEACHER documented in this encounter Plan of Treatment Not on filedocumented as of this encounter Procedures Procedure Name Priority Date/Time Associated Comments Diagnosis SURGICAL PATHOLOGY Routine 07/20/2015 2:30 PM Abnormal uterine Results for this EXAM ELA TEACHER bleeding (AUB) procedure are in the results section. HC ENDOMETRIAL BIOPSY Routine 07/20/2015 2:27 PM Abnormal uter ine W/O CERVICAL DILATION ELA TEACHER bleeding (AUB) documented in this encounter Results Surgical pathology exam (07/20/2015 2:30 PM ELA TEACHER) Component Value Ref Test Analysis Performed At [facility] Range Method Time Signature Copath Report Patient Name: DARIANA VALDEZ MR#: [id number] Specimen #: [id number] Collected: 07/20/2015 Received: 07/20/2015 Reported: 07/21/2015 15:38 Ordering Phy(s): JEIMY CHRISTENSEN SPECIMEN(S): Endometrial biopsy FINAL DIAGNOSIS: Endometrium, biopsy- - Fragments of weakly proliferative endometrium. - Negative for diagnostic polyp formation, hyperplasia, atyp ia, and malignancy. Electronically signed out by: Litzy Mejia M.D. CLINICAL HISTORY: Abnormal uterine bleeding. GROSS: The specimen labeled endometrial biopsy consists of severa l pink irregular soft tissue fragments with an aggregate dimension of 0.5 x 0.5 x 0.3 cm. ??Entirely submitted in a single cassette.(Dictate d by: Litzy Mejia MD 07/20/2015 03:57 PM) MICROSCOPIC: Microscopic examination is performed. CPT Codes: A: 42586-DQ6 TESTING LAB LOCATION: [address] ??[id number] COLLECTION SITE: Client: [facility] Location: [facility] (R) Specimen Anatomical Collection Method Collection Time Receive d Time (Source) Location / / Volume Laterality 07/20/2015 2:30 PM 6 3:46 ELA TEACHER PM ELA TEACHER Jeimy SHETTY - [facility] Performing Organization Address City/State/ZIP Code Phon e Number COPATH documented in this encounter Visit Diagnoses Diagnosis Abnormal uterine bleeding (AUB) - Primar y documented in this encounter Additional Health Concerns Assessment Noted Time PHQ-9 Depression Total Score: 12 06/17/2015 7:51 AM CS T documented as of this encounter Care Teams System Trainer Relationship Specialty Start Date End Date Esmer Roland MD PCP - General Family Practice 09/21/10 01/29/17 documented as of this encounter
--- OUTSIDE RECORDS SUMMARY | 2022-04-02 12:41 | XMS_ITS | Encounter Summary ---
:1975 Author Organization [place] Address [address] [facility] [place] [address] Care Team Providers Name Role Phone Esmer Roland MD Primary Care Provider [phone] Encounter Details Date Type Department Care Team Description 07/20/2015 Radiant Appointment [facility] Jeimy Christensen Jamie Sellers, DO [address] [facility] [id number] [place] [address] [address] [place], [place] [address] [address] [place], [place] [phone] [address] (Work) [phone] Social History Tobacco Use Types Packs/Day Years [...] or Results for this TRANSABDOMINAL AND PM OPEN CUT EXAMINER frequent procedure are in TRANSVAGINAL menstruation the results section. documented in this encounter Results US Pelvic Complete with Transvaginal (07/20/2015 2:26 PM OPEN CUT EXAMINER) Anatomical Region Laterality Modality Abdomen/Pelvis Ultrasound Specimen (Source) Anatomical Location Collection Method / Collectio n Time Received Time / Laterality Volume Impressions 07/21/2015 6:20 AM OPEN CUT EXAMINER #: [id number] Study Notes ? Lizzette Bell on 07/20/2015 2:29 PM [facility] Obstetrics & Gynecology [address] [place] [address] ULTRASOUND - PELVIC OIL SEPARATOR Referring MD: Jeimy Christensne Primary Clinic: [facility] CLINICAL INFORMATION Indications for ultrasound: Bleeding/Menses - [...] indicated Lois BANERJEE Narrative 07/21/2015 6:20 AM OPEN CUT EXAMINER Order Jeimy Christensen DO IMG US ORDERABLES documented in this encounter Visit Diagnoses Not on filedocumented in this encounter Additional Health Concerns Assessment Noted Time PHQ-9 Depression Total Score: 12 06/17/2015 7:51 AM CS T documented as of this encounter Care Teams Stud Beef Cattle Farmer Relationship Specialty Start Date End Date Esmer Roland MD PCP - General Family Practice 09/21/10 01/29/17 documented as of this encounter
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
--- OUTSIDE RECORDS SUMMARY | 2022-04-02 12:42 | XMS_ITS | Encounter Summary ---
:1975 Author Organization [place] Address [address] [place] [address]. [place] [address] Care Team Providers Name Role Phone Esmer Roland MD Primary Care Provider [phone] Reason for Visit Reason Onset Date Comments Refill Request 11/04/2014 Lexapro 20mg Encounter Details Date Type Department Care Team Description 11/04/2014 Refill [facility] Esmer Roland Refill Request (Lexapro Clinic [place] MD [place] 20mg) [address] [facility], [address] [place] [address] [address] [place] [address] [place], [place] [phone] (Wo rk) [address] [phone] Social History Tobacco Use Types Packs/Day Years [...] Telephone Encounter - Mayela Reese RN - 11/04/2014 9:25 AM CDT Patient calling stating she has weaned off of the Zoloft completely. States she is feeling much better. Would like a script for Lexapro 20mg 2 tablets daily to be sent to her pharmacy. Patient states that she will schedule a follow up appointment next week. Mayela Reese RN documented in this encounter Plan of Treatment Not on filedocumented as of this encounter Visit Diagnoses Diagnosis MDD (major depressive disorder), recurre nt episode, mild (H) - Primary Major depressive disorder, recurrent epi sode, mild documented in this encounter Care Teams Exhibits Coordinator Relationship Specialty Start Date End Date Esmer Roland MD PCP - General Family Practice 09/21/10 01/29/17 documented as of this encounter
--- OUTSIDE RECORDS SUMMARY | 2022-04-02 12:42 | XMS_ITS | Encounter Summary ---
:1975 Author Organization [place] Address [address] [facility] [place] [address] Care Team Providers Name Role Phone Esmer Roland MD Primary Care Provider [phone] Encounter Details Date Type Department Care Team Description 04/06/2014 Hospital Pathology [facility] TerrellMD Results [facility] [address] [place] [address] (Wo rk) Social History Tobacco Use Types Packs/Day Years Used Date Smoking Tobacco: Former Smokeless Tobacco: Never Comments: Very Occasional Alcohol Use Standard Drinks/Week Comments Yes 0 (1 standard drink = 0.6 oz pure 2-3 ti mes a week(1 glass of wine) 1 alcohol) qo weekend Sex Assigned at Date Recorded Not on file documented as of this encounter Plan of Treatment Not on filedocumented as of this encounter Procedures Procedure Name Priority Date/Time Associated Diagnosis Comme nts SURGICAL PATHOLOGY Routine 04/06/2014 9:00 AM Res ults for this EXAM CDT procedure are i n the results section. documented in this encounter Results Surgical pathology exam (04/06/2014 9:00 AM CDT) Component Value Ref Test Analysis Performed At [facility] Method Time Signature Copath Report Patient Name: DARIANA VALDEZ MR#: [id number] Specimen #: [id number] Collected: 04/06/2014 Received: 04/06/2014 Reported: 04/08/2014 16:16 Ordering Phy(s): ROMMEL WASHINGTON SPECIMEN(S): A: Breast, left B: Breast, right FINAL DIAGNOSIS: A: Left breast, reduction mammoplasty - 196 g specimen - Scar formation, benign breast tissue and fat necrosis - No evidence of malignancy B: Right breast, reduction mammoplasty - 194 g specimen - Benign breast tissue - No evidence of malignancy Electronically signed out by: Shankar Santamaria M.D. GROSS: A.: The specimen is received in formalin, and is labeled le ft breast tissue with the patient's name and proper identification. ? ?The specimen consists of multiple similar appearing yellow-pink fibrofatt y breast fragments weighing 196 grams. ??The largest breast fragment measures up to 9.6 x 8.0 x 4.3 cm with attached sanchez irregular shaped ski n fragments measuring up to 10.0 x 3.3 cm. ??Upon serial section, the sp ecimen has a yellow-pink fibrofatty center throughout with areas of yello w fat necrosis and scarring. ??The fibrous tissue accounts for raul roximately five % of the total volume. ??No mass lesions are identified grossly. Whizzer Hand sections are submitted in two cassettes. B.: The specimen is received in formalin, and is labeled ri ght breast tissue with the patient's name and proper identification. ? ?The specimen consists of multiple similar appearing yellow-pink fibrofatt y breast fragments weighing 194 grams. ??The largest breast fragment measures up to 14.3 x 6.5 x 2.9 cm with attached sanchez irregular shaped sk in fragments measuring up to 11.5 x 4.1 cm. ??Upon serial section, the sp ecimen has a yellow-pink fibrofatty center throughout. ??The fibrous tiss ue accounts for approximately five % of the total volume. ??No mass lesi ons are identified grossly. ??Whizzer Hand sections are submitted in two cassettes. (Dictated by: Blake Schofield 04/07/2014 10:15 AM) MICROSCOPIC: A and B. Microscopic performed CPT Codes: A: 92224-LB0 B: 97104-HN9 TESTING LAB LOCATION: [facility] [employer] [address] ??[id number] COLLECTION SITE: Client: [facility] Location: S223 (F) Specimen Anatomical Collection Method Collection Time Receive d Time (Source) Location / / Volume Laterality 04/06/2014 9:00 AM 4 3:46 CDT PM CDT Rommel Washington [facility] Performing Organization Address City/State/ZIP Code Phon e Number COPATH documented in this encounter Visit Diagnoses Not on filedocumented in this encounter Care Teams Bulk Materials Handling Plant Operator Relationship Specialty Start Date End Date Esmer Roland MD PCP - General Family Practice 09/21/10 01/29/17 documented as of this encounter
--- OUTSIDE RECORDS SUMMARY | 2022-04-02 12:42 | XMS_ITS | Encounter Summary ---
:1975 Author Organization [place] Address [address] [place] [address] Care Team Providers Name Role Phone Esmer Roland MD Primary Care Provider [phone] Reason for Visit Reason Onset Date Comments Refill Request 07/16/2013 sola oconnell Encounter Details Date Type Department Care Team Description 07/16/2013 Refill [facility] Esmer Roland Refill Request (anish, [facility] MD sola Byrd) [address] [place] [address] [place] [id number] [phone] Social History Tobacco Use Types Packs/Day Years Used Date Smoking Tobacco: Former Smokeless Tobacco: Never Comments: Very Occasional Alcohol Use Standard Drinks/Week Comments Yes 0 (1 standard drink = 0.6 oz pure 2-3 ti mes a week(1 glass of wine) 1 alcohol) qo weekend Sex Assigned at Date Recorded Not on file documented as of this encounter Miscellaneous Notes Telephone Encounter - Jonathan Patel - 07/19/2013 3:42 PM CST Both Rx's faxed to [facility] [employer] Telephone Encounter - Deidre Alas - 07/16/2013 12:03 PM CST LAST FILL DATE: ambien=02/19/13, phentermine=04/14/13 QTY: zolpidem=90, phentermine=30 Camilo Hammonds [facility] [employer] documented in this encounter Plan of Treatment Not on filedocumented as of this encounter Visit Diagnoses Diagnosis Insomnia - Primary Insomnia, unspecified Obesity Obesity, unspecified documented in this encounter Care Teams Degree Clerk Relationship Specialty Start Date End Date Esmer Roland MD PCP - General Family Practice 09/21/10 01/29/17 documented as of this encounter
--- OUTSIDE RECORDS SUMMARY | 2022-04-02 12:42 | XMS_ITS | Encounter Summary ---
:1975 Author Organization [place] Address [facility] [place] [address] Care Team Providers Name Role Phone Esmer Roland MD Primary Care Provider [phone] Reason for Visit Reason Onset Date Comments Refill Request 01/05/2013 Phentermine Encounter Details Date Type Department Care Team Description 01/05/2013 Refill [facility] Esmer Roland Refill Request Clinic Sara Byrd MD (Phentermine) [address] [place] [address], [address] [place] [address] [address] [place] [address] [place], [place] [phone] (Wo rk) [address] [phone] Social History Tobacco Use Types Packs/Day Years [...] Notes Telephone Encounter - Jonathan Patel - 01/05/2013 4:18 PM CDT Rx Faxed Telephone Encounter - Mayela Reese - 01/05/2013 3:43 PM CDT Patient calling requesting rx refill of Phentermine. Wt Readings from Last 4 Encounters: 12/25/12 203 lb (92.08 kg) 11/23/12 203 lb 8 oz (92.307 kg) 11/05/12 199 lb 8 oz (90.493 kg) 09/22/12 212 lb (96.163 kg) Last OV: 12/25/2012 Mayela Reese RN documented in this encounter Plan of Treatment Not on filedocumented as of this encounter Visit Diagnoses Diagnosis Obesity - Primary Obesity, unspecified documented in this encounter Care Teams Activity Assistant Relationship Specialty Start Date End Date Esmer Roland MD PCP - General Family Practice 09/21/10 01/29/17 documented as of this encounter
--- OUTSIDE RECORDS SUMMARY | 2022-04-02 12:42 | XMS_ITS | Encounter Summary ---
:1975 Author Organization [place] Address [address] [place] [address] Care Team Providers Name Role Phone Esmer Roland MD Primary Care Provider [phone] Reason for Visit Reason Comments Recheck Medication Phentermine Encounter Details Date Type Department Care Team Description 01/06/2014 Allied Health/[facility]urse [facility] [place] Rec heck Medication Visit Clinic [place] (Phentermine) [facility], [address] [place] [address] Social History Tobacco Use Types Packs/Day Years [...] Sign Reading Time Taken Comments Blood Pressure 118/75 01/06/2014 10:14 AM CDT Pulse 88 01/06/2014 10:14 AM CDT Temperature - - Respiratory Rate - - Oxygen Saturation 98% 01/06/2014 10:14 AM CDT Inhaled Oxygen Concentration - - Weight 97.1 kg (214 lb) 01/06/2014 10:14 AM CDT Height - - Body Mass Index 33.77 10/29/2013 7:56 AM CDT documented in this encounter Progress Notes Mayela Reese RN - 01/06/2014 10:15 AM CDT Patient here for weight/bp/pulse check for med check on Phentermine. Mayela Reese RN documented in this encounter Plan of Treatment Not on filedocumented as of this encounter Visit Diagnoses Diagnosis Obesity - Primary Obesity, unspecified documented in this encounter Care Teams Nurse Transitional Relationship Specialty Start Date End Date Esmer Roland MD PCP - General Family Practice 09/21/10 01/29/17 documented as of this encounter
--- OUTSIDE RECORDS SUMMARY | 2022-04-02 12:42 | XMS_ITS | Encounter Summary ---
:1975 Author Organization [place] Address [address] [facility] [address] Care Team Providers Name Role Phone Esmer Roland MD Primary Care Provider Reason for Visit Reason Onset Date Comments Refill Request 02/18/2013 Escitalopram 20, Phe ntermine, Zolpidem Encounter Details Date Type Department Care Team Description 02/18/2013 Refill [facility] Esmer Roland Refill Request Clinic [place] MD [place] (Escitalopram 20, [address] [place] [address] Phentermine, Zolpidem) [place], [place] [id number] [phone] Social History Tobacco Use Types Packs/Day Years [...] Miscellaneous Notes Telephone Encounter - Mayela Reese - 02/19/2013 1:29 PM CDT Verified with patient that she wanted the prescriptions to go to [facility]. RX's faxed to pharmacy. Mayela Hugh, RN Telephone Encounter - Esmer Roland MD - 02/19/2013 11:59 AM CDT Sent to [facility] and printed Telephone Encounter - Elva Grissom - 02/18/2013 3:38 PM CDT Escitalopram Last Fill Date: 01/25/13 Last Fill Quantity: 30 Last Office Visit: 12/25/12 Phentermine Last Fill Date: 01/06/13 Last Fill Quantity: 30 Last Office Visit: 12/25/12 Zolpidem Last Fill Date: 08/13/12 Last Fill Quantity: 90 Last Office Visit: 12/25/12 Elva Grissom, Hospital Superintendent [address] [place] [address] documented in this encounter Plan of Treatment Not on filedocumented as of this encounter Visit Diagnoses Diagnosis Major Depress Dis, Severe - Primary Major depressive disorder, single episod e, severe, without mention of psychotic behavior Obesity Obesity, unspecified Insomnia Insomnia, unspecified documented in this encounter Care Teams Mass Spectroscopist Relationship Specialty Start Date End Date Esmer Roland MD PCP - General Family Practice 09/21/10 01/29/17 documented as of this encounter
--- OUTSIDE RECORDS SUMMARY | 2022-04-02 12:42 | XMS_ITS | Encounter Summary ---
:1975 Author Organization [place] Address [address] [place] [address] Care Team Providers Name Role Phone Esmer Roland MD Primary Care Provider [phone] Reason for Visit Reason Comments Refill Request (6) months of refills. Recheck Medication Depression Increase the dose on the DIPIKA APRO. Encounter Details Date Type Department Care Team Description 04/02/2013 Office Visit [facility] Esmer Roland Insomni a (Primary Dx); Clinic Sara Byrd MD Obesity; [place] [address] Need for prophylactic vaccination and in oculation against influenza; Road, [address] [place], [place] ANXIETY STATE NOS; [place] [address] Major Depress Dis, Severe [id number] Social History Tobacco Use Types Packs/Day [...] Sign Reading Time Taken Comments Blood Pressure 116/78 04/02/2013 9:08 AM CDT Pulse 67 04/02/2013 9:08 AM CDT Temperature 37.3 ??C (99.1 ??F) 04/02/2013 9:08 AM CDT Respiratory Rate 16 04/02/2013 9:08 AM CDT Oxygen Saturation 98% 04/02/2013 9:08 AM CDT Inhaled Oxygen Concentration - - Weight 90 kg (198 lb 8 oz) 04/02/2013 9:08 AM CDT Height 169.5 cm (5' 6.75) 04/02/2013 9:08 AM CDT Body Mass Index 31.32 04/02/2013 9:08 AM CDT documented in this encounter Progress Notes Esmer Roland MD - 04/02/2013 9:12 AM CDT SUBJECTIVE: Dariana Osman is a 37 year old female who presents to clinic today for the following health issues: Depression Follow-Up ?? Status since last visit: Worsened , stressed, working, kids are having a hard time at school, shefinds herself snapping at them ?? See PHQ-9 for current symptoms. ?? Other associated symptoms:None ?? Complicating factors: Significant life event: No Current substance abuse: None Anxiety / Panic / Manic symptoms: Yes- anxiety PHQ-9 Bulgarian PHQ-9 Any Language ?? Amount of exercise or daily activities, outside of work: 1-2 day(s) per week(walking) ?? Problems taking medications regularly No ?? Medication side effects: none ?? Diet: less carbs History Substance Use Topics ??? Smoking status: Former Smoker ??? Smokeless tobacco: Never Used Comment: Very Occasional ??? Alcohol Use: Yes Comment: 2-3 times a week(1 glass of wine) 1 qo weekend Medication Followup of all meds. ?? Taking Medication as prescribed: yes ?? Side Effects: None ?? Medication Helping Symptoms: NO-Patient requesting a increase in the LEXAPRO. Problem list and histories reviewed & adjusted, as indicated. Additional history: as documented PROBLEMS TO ADD ON... Problem list, Medication list, Allergies, and Medical/Social/Surgical histories reviewed in EPIC andupdated as appropriate. ROS: C: NEGATIVE for fever, chills, change in weight E/M: NEGATIVE for ear, mouth and throat problems R: NEGATIVE for significant cough or SOB CV: NEGATIVE for chest pain, palpitations or peripheral edema OBJECTIVE: BP 116/78 Pulse 67 Temp 99.1 ??F (37.3 ??C) (Oral) Resp 16 Ht 5' 6.75 (1.695 m) Wt 198 lb8 oz (90.039 kg) BMI 31.32 kg/m2 SpO2 98% LMP 03/27/2013 Body mass index is 31.32 kg/(m^2). GENERAL: healthy, alert, well nourished, well hydrated, no distress MS: extremities- no gross deformities noted, no edema PSYCH: Alert and oriented times 3; speech- coherent , normal rate and volume; able to articulate logical thoughts, able to abstract reason, no tangential thoughts, no hallucinations or delusions, affect- normal ASSESSMENT/PLAN: 780.52 Insomnia (primary encounter diagnosis) Comment: refilled med Plan: ALPRAZolam (XANAX) 0.5 MG tablet 278.00 Obesity Comment: printed med, walking daily Plan: phentermine 37.5 MG capsule V04.81 Need for prophylactic vaccination and inoculation against influenza Comment: Plan: FLU VACCINE, 3 YRS +, IM 300.00 ANXIETY STATE NOS Comment: Plan: escitalopram (LEXAPRO) 20 MG tablet Ok to raise dose to 40mg 296.23 Major Depress Dis, Severe Comment: see above Plan: See Patient Instructions Esmer Roland MD [facility] documented in this encounter Nursing Notes 04/02/2013 9:00 AM CDT >> MELISSA JANSEN Fri Apr 02, 2013 9:16 AM Patient presents with: Refill Request - (6) months of refills. Recheck Medication Depression - Increase the dose on the LEXAPRO. Initial BP 116/78 Pulse 67 Temp 99.1 ??F (37.3 ??C) (Oral) Resp 16 Ht 5' 6.75 (1.695 m) Wt 198 lb 8 oz (90.039 kg) BMI 31.32 kg/m2 SpO2 98% LMP 03/27/2013 Estimated Body mass index is 31.32 kg/(m^2) as calculated from the following: Height as of this encounter: 5' 6.75(1.695 m). Weight as of this encounter: 198 lb 8 oz(90.039 kg). BP completed using cuff size large right arm. Melissa Jansen CMA documented in this encounter Miscellaneous Notes Addendum Note - Sidney Patel - 04/06/2013 11:19 AM CDT Addended by: SIDNEY PATEL on: 04/06/2013 11:19 AM Modules accepted: Orders, SmartSet documented in this encounter Plan of Treatment Not on filedocumented as of this encounter Visit Diagnoses Diagnosis Insomnia - Primary Insomnia, unspecified Obesity Obesity, unspecified Need for prophylactic vaccination and in oculation against influenza ANXIETY STATE NOS Anxiety state, unspecified Major Depress Dis, Severe Major depressive disorder, single episod e, severe, without mention of psychotic behavior documented in this encounter Care Teams Shearing Supervisor Relationship Specialty Start Date End Date Esmer Roland MD PCP - General Family Practice 09/21/10 01/29/17 documented as of this encounter
--- OUTSIDE RECORDS SUMMARY | 2022-04-02 12:42 | XMS_ITS | Encounter Summary ---
:1975 Author Organization [place] Address [address] [place] [address] Care Team Providers Name Role Phone Esmer Roland MD Primary Care Provider [phone] Reason for Visit Reason Comments RECHECK Wt,bp, pulse Encounter Details Date Type Department Care Team Description 01/28/2013 Allied Health/Nurse [facility] REC HECK (Wt,bp, pulse) Visit Clinic [address], [address] [place] [address] Social History Tobacco Use Types [...] Sign Reading Time Taken Comments Blood Pressure 123/76 01/28/2013 8:50 AM CDT Pulse 84 01/28/2013 8:50 AM CDT Temperature - - Respiratory Rate - - Oxygen Saturation - - Inhaled Oxygen Concentration - - Weight 91.7 kg (202 lb 1.6 oz) 01/28/2013 8:50 AM CDT Height - - Body Mass Index 31.89 12/25/2012 8:37 AM CDT documented in this encounter Plan of Treatment Not on filedocumented as of this encounter Visit Diagnoses Diagnosis Obesity - Primary Obesity, unspecified documented in this encounter Care Teams Bdr Relationship Specialty Start Date End Date Esmer Roland MD PCP - General Family Practice 09/21/10 01/29/17 documented as of this encounter
--- OUTSIDE RECORDS SUMMARY | 2022-04-02 12:42 | XMS_ITS | Encounter Summary ---
:1975 Author Organization [place] Address [address] [facility] [place] [address] Care Team Providers Name Role Phone Esmer Roland MD Primary Care Provider [phone] Reason for Visit Reason Onset Date Comments Results 02/25/2013 Encounter Details Date Type Department Care Team Description 02/25/2013 Telephone [facility] Women's Jeimy Christensen, Results [facility] [address] [place] [address] [facility] [address] [place] [address] [place] [address] [phone] Social History Tobacco Use Types Packs/Day Years Used Date Smoking Tobacco: Former Smokeless Tobacco: Never Comments: Very Occasional Alcohol Use Standard Drinks/Week Comments Yes 0 (1 standard drink = 0.6 oz pure 2-3 ti mes a week(1 glass of wine) 1 alcohol) qo weekend Sex Assigned at Date Recorded Not on file documented as of this encounter Miscellaneous Notes Telephone Encounter - Jeimy Christensen DO - 02/25/2013 12:56 PM CDT Negative LEEP specimen Healing from LEEP is ok Repeat pap in 6 months/12 months Also discussed endometrial biopsy. Dr. Jeimy Christensen DO Obstetrics and Gynecology [facility] [place] documented in this encounter Plan of Treatment Not on filedocumented as of this encounter Visit Diagnoses Diagnosis Vaginitis - Primary Vaginitis and vulvovaginitis, unspecifie d documented in this encounter Care Teams Sleep Scientist Relationship Specialty Start Date End Date Esmer Roland MD PCP - General Family Practice 09/21/10 01/29/17 documented as of this encounter
--- OUTSIDE RECORDS SUMMARY | 2022-04-02 12:42 | XMS_ITS | Encounter Summary ---
:1975 Author Organization [place] Address [address] [place] [address]. [place] [address] Care Team Providers Name Role Phone Esmer Roland MD Primary Care Provider [phone] Yony Garcia PA-C Primary Care Provider [phone] Yony Garcia PA-C Unavailable [phone] Yony Garcia PA-C Unavailable [phone] Encounter Details Date Type Department Care Team Description 06/27/2014 Result Follow [facility] Esmer Roland Dx: Ab normal Pap smear, Up Clinic [place] [address] [place] [address] [address] intraepit [facility], [address] (ASC-H) (Primary Dx) [place] [address] [id number] Social History Tobacco Use Types Packs/Day Years Used Date Smoking Tobacco: Former Smokeless Tobacco: Never Comments: Very Occasional Alcohol Use Standard Drinks/Week Comments Yes 0 (1 standard drink = 0.6 oz pure 1 TIME A a week(1 glass of wine) 1 alcohol) qo weekend Sex Assigned at Date Recorded Not on file documented as of this encounter Progress Notes Sridevi Magallon RN - 06/27/2014 4:04 PM CST 11/23/12 ASC-H. 12/25/12 [place]= BRIGID 2. Referred to Ob~Bi Consultant, Dr. Christensen 02/18/13 LEEP= Negative, R/P pap in 6 and 12 months. Due 08/2013 and 02/201410/01/13 Dx pap= Normal. Repeat co-testing in 6 months. 06/27/14 Pap reminder sent per [facility] 07/08/14 Pap= NIL, Neg HPV. Co-test 1 yr 01/25/16 [facility] pap reminder message sent. (es) 08/08/16 Spoke with pt, reminded her of need for pap and offered [facility] phone number for scheduling. Pt declined phone number and thanked for the call. ([facility]) 11/21/16 Would consider patient to be lost to follow-up. Routed to provider for review. ([facility]) 12/24/16 ASCUS pap, neg HR HPV. 02/05/17 Hysterectomy- Negative for dysplasia or malignancy. Per ASCCP recommendations, vaginal pap every 3 yrs for 20 years post treatment. Source: ASCCP Practice FAQs. Patient with total hysterectomy - (cervix removed) hx of BRIGID 2 or greater, ???continue vaginal paps every 3 years following hysterectomy in women with a hx of BRIGID 2 or worse for 20 years from treatment?? . Refer to p. 9 ACOG Practice Bulletin # 131, Apr 2012. CHAR CONVEYOR TENDER Esmer Roland MD - 06/27/2014 4:03 PM CST Please call pt and see if she is going elsewhere for her paps or offer to schedule appt with me Thank you Caroline Bryant RN - 06/27/2014 4:03 PM CST LM on to call back. Caroline Burns RN, BSN, PHN [facility] RN CHAR CONVEYOR TENDER Caroline Bryant RN - 06/27/2014 4:03 PM CST Pt. Informed of 01/25/2016 [employer] message that was sent. Triage reviewed patient chart with her on the phone. Pt. Expressed understanding and will schedule avisit with Dr. Christensen as she also has other concerns. Caroline Burns RN, BSN, PHN [facility] RN CHAR CONVEYOR TENDER documented in this encounter Plan of Treatment Not on filedocumented as of this encounter Visit Diagnoses Diagnosis Abnormal Pap smear, can't excl hi gd sq intraepithelial lesion (ASC-H) - Primary Papanicolaou smear of cervix with atypic al squamous cells cannot exclude high grade squamous intraepithelial lesion (ASC-H) documented in this encounter Care Teams Separator Operator [employer] Relationship Specialty Start Date End Date Esmer Roland, PCP - General Family Practice 09/21/10 01/29/17 Yony Garcia, PCP - General Physician Ladle Puller - 01/30/17 07/23/18 PA-C Medical Yony Garcia, PCP - Assigned PCP 09/01/16 08/11/18 PA-C [id number] [place] [address] Yony Garcia, Assigned PCP 09/01/16 PA-C [id number] [place] [id number] documented as of this encounter
--- OUTSIDE RECORDS SUMMARY | 2022-04-02 12:42 | XMS_ITS | Encounter Summary ---
:1975 Author Organization [place] Address [facility] [place] [address] Care Team Providers Name Role Phone Esmer Roland MD Primary Care Provider Reason for Visit Reason Onset Date Comments Refill Request 12/29/2012 Encounter Details Date Type Department Care Team Description 12/29/2012 Refill [facility] Esmer Roland, Refill Request Sraa BANERJEE [address] [place] [address], [address] [place] [address] [address] [place] [address] [place] [address] [phone] Social History Tobacco Use Types Packs/Day Years [...] on filedocumented in this encounter Care Teams Machine Operator Hop Picker Relationship Specialty Start Date End Date Esmer Roland MD PCP - General Family Practice 09/21/10 01/29/17 documented as of this encounter
--- OUTSIDE RECORDS SUMMARY | 2022-04-02 12:42 | XMS_ITS | Encounter Summary ---
:1975 Author Organization [facility] Address [address] [place] [address] Care Team Providers Name Role Phone Esmer Roland MD Primary Care Provider [phone] Reason for Visit Reason Comments Recheck Medication Encounter Details Date Type Department Care Team Description 01/06/[address] [facility] Yony Garcia Major depressive disorder, single episode, moderate (H) (Primary Dx); Clinic [place] ZENON Hoyos Migraine without aura and without status migrainosus, not intractable; [place] [address] [address] MDD (major depressive disorder), recurre nt episode, mild (H) [address], [address] [place] [address] [place], [place] [phone] (Wo rk) [address] [phone] Social History Tobacco Use Types Packs/Day Years [...] Sign Reading Time Taken Comments Blood Pressure 110/66 01/06/2015 2:43 PM CDT Pulse 68 01/06/2015 2:43 PM CDT Temperature 37.1 ??C (98.7 ??F) 01/06/2015 2:43 PM CDT Respiratory Rate 16 01/06/2015 2:43 PM CDT Oxygen Saturation - - Inhaled Oxygen Concentration - - Weight 103.9 kg (229 lb) 01/06/2015 2:43 PM CDT Height - - Body Mass Index 36.41 07/08/2014 9:54 AM 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 Status since last visit: No change ?? Other associated symptoms:None ?? Complicating factors: ?? Significant life event: Yes- Recent move, high stress at work ?? Current substance abuse: None PHQ-9 SCORE ([facility] [place] 05/09/2014 05/27/2014 07/06/2014 Total Score 8 6 - Total Score - - 2 EUGENE-7 SCORE 04/06/2013 05/09/2014 05/27/2014 Total Score 5 2 4 PHQ-9 Mosotho PHQ-9 Any Language GAD7 ?? Amount of exercise or physical activity: 2-3 days/week for an average of 45- 60 minutes ?? Problems taking medications regularly: No ?? Medication side effects: none ?? Diet: regular (no restrictions) Doing well on Lexapro- tolerating dose well. Possibly a little flat but would rather feel like this than previous. Some current stress at work and with recent move. PROBLEMS TO ADD ON... Migraine Follow-Up ?? Headaches symptoms: Worsened - had imitrex in early s for headaches but almost none recently ?? Frequency: 2-3 times in past month or so ?? Duration of headaches: 1 day ?? Able to do normal daily activities/work with migraines: Yes ?? Rescue/Relief medication:naproxyn (Aleve) Effectiveness: moderate relief ?? Preventative medication: None ?? Neurologic complications: numbness ?? In the past 4 weeks, how often have you gone to Urgent Care or the emergency room because of yourheadaches? 0 Problem list and histories reviewed & adjusted, as indicated. Additional history: as documented Problem list, Medication list, Allergies, and Medical/Social/Surgical histories reviewed in EPIC andupdated as appropriate. ROS: Constitutional, HEENT, cardiovascular, pulmonary, gi and gu systems are negative, except as otherwise noted. OBJECTIVE: BP 110/66 mmHg Pulse 68 Temp(Src) 98.7 ??F (37.1 ??C) (Oral) Resp 16 Wt 229 lb (103.874 kg) ? No Body mass index is 36.41 kg/(m^2). GENERAL: healthy, alert and no distress MS: no gross musculoskeletal defects noted, no edema SKIN: no suspicious lesions or rashes NEURO: Normal strength and tone, mentation intact and speech normal PSYCH: mentation appears normal, affect normal/bright Diagnostic Test Results: none ASSESSMENT/PLAN: Problem List Items Addressed This Visit MDD (major depressive disorder) - Primary Relevant Medications escitalopram (LEXAPRO) tablet Other Visit Diagnoses Migraine without aura and without status migrainosus, not intractable Relevant Medications escitalopram (LEXAPRO) tablet MDD (major depressive disorder), recurrent episode, mild Relevant Medications escitalopram (LEXAPRO) tablet MEDICATIONS: Orders Placed This Encounter Medications ??? escitalopram (LEXAPRO) 20 MG tablet Sig: Take 2 tablets (40 mg) by mouth daily Dispense: 180 tablet Refill: 0 - Continue other medications without change. Follow up 3 months, phone visit OK. She will follow up if headaches continue with any frequency and neurologically concerning sx. Did not want new Rx for Imitrex at this time but will call if she changes her mind. Yony Garcia PA-C [facility] Physical Exam documented in this encounter Nursing Notes Yuliya Richard MA - 01/06/2015 2:51 PM CDT Chief Complaint Patient presents with ??? Recheck Medication Initial BP 110/66 mmHg Pulse 68 Temp(Src) 98.7 ??F (37.1 ??C) (Oral) Resp 16 Wt 229 lb (103.874 kg) ? No Estimated body mass index is 36.41 kg/(m^2) as calculated from the following: Height as of 15: 5' 6.5 (1.689 m). Weight as of this encounter: 229 lb (103.874 kg). BP completed using cuff size: large Yuliya Richard MA documented in this encounter Miscellaneous Notes Addendum Note - Melissa Jansen CMA - 01/06/2015 4:13 PM CDT Addended by: MELISSA JANSEN on: 01/06/2015 04:13 PM Modules accepted: Orders, SmartSet documented in this encounter Plan of Treatment Not on filedocumented as of this encounter Visit Diagnoses Diagnosis Major depressive disorder, single episod e, moderate (H) - Primary Major depressive disorder, single episod e, moderate Migraine without aura and without status migrainosus, not intractable Migraine without aura, without mention o f intractable migraine without mention of status migrainosus MDD (major depressive disorder), recurre nt episode, mild (H) Major depressive disorder, recurrent epi sode, mild documented in this encounter Care Teams Seam Presser Relationship Specialty Start Date End Date Esmer Roland MD PCP - General Family Practice 09/21/10 01/29/17 documented as of this encounter
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
--- OUTSIDE RECORDS SUMMARY | 2022-04-02 12:42 | XMS_ITS | Encounter Summary ---
:1975 Author Organization [facility] Address [address] [place] [address] Care Team Providers Name Role Phone Esmer Roland MD Primary Care Provider [phone] Reason for Visit Reason Comments Recheck Medication LEXAPRO Depression Encounter Details Date Type Department Care Team Description 05/27/2014 Office Visit [facility] Esmer Roland ANXIETY STATE NOS (Primary Dx); Clinic Sara Byrd MD MDD (major depressive disorder) [place] [address] [facility], [address] [place] [address] [place], [place] [phone] (Wo rk) [address] [phone] Social History Tobacco Use Types Packs/Day Years [...] Sign Reading Time Taken Comments Blood Pressure 112/70 05/27/2014 9:42 AM LOAN SERVICING OFFICER Pulse 65 05/27/2014 9:42 AM LOAN SERVICING OFFICER Temperature 37.2 ??C (98.9 ??F) 05/27/2014 9:42 AM LOAN SERVICING OFFICER Respiratory Rate 16 05/27/2014 9:42 AM LOAN SERVICING OFFICER Oxygen Saturation 97% 05/27/2014 9:42 AM LOAN SERVICING OFFICER Inhaled Oxygen Concentration - - Weight 99.8 kg (220 lb 1.6 oz) 05/27/2014 9:42 AM LOAN SERVICING OFFICER Height 169.5 cm (5' 6.75) 05/27/2014 9:42 AM LOAN SERVICING OFFICER Body Mass Index 34.73 05/27/2014 9:42 AM LOAN SERVICING OFFICER documented in this encounter Progress Notes Esmer Roland MD - 05/27/2014 9:46 AM CST HPI SUBJECTIVE: Dariana Osman is a 38 year old female who presents to clinic today for the following health issues: Breast surgery twice now, incisions have opened and had infections, seeing surgeon, but this has been over several months, since October and revision in Mar. paps are now improving and seeing CLERK RATING regularly, very heavy periods, would like to have hysterectomy, but D@C is likely to be planned in the near future Depression and Anxiety Follow-Up ?? Status since last visit: Worsened -DEPRESSION , due to all the above, does not like to go out anymore, no hobbies, not calling friends, feels more irritable, happy at home with her kids ?? 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 Other associated symptoms:None ?? Complicating factors: ?? Significant life event: Yes- Complications after surgery. ?? Current substance abuse: None ?? lexapro 40mg, hx of prozac in the past ?? Has gained a lot of weight in the past few yrs PHQ-9 SCORE ([facility] [place] 04/02/2013 10/01/2013 05/09/2014 Total Score 8 6 8 Total Score - - - EUGENE-7 SCORE 04/06/2013 05/09/2014 Total Score 5 2 PHQ-9 Swiss PHQ-9 Any Language GAD7 ?? Amount of exercise or physical activity: None ?? Problems taking medications regularly: No ?? Medication side effects: none ?? Diet: regular (no restrictions) PROBLEMS TO ADD ON... Problem list and histories reviewed & adjusted, as indicated. Additional history: as documented Labs reviewed in [facility] Problem list, Medication list, Allergies, and Medical/Social/Surgical histories reviewed in [facility] andupdated as appropriate. ROS: Constitutional, HEENT, cardiovascular, pulmonary, gi and gu systems are negative, except as otherwise noted. OBJECTIVE: BP 112/70 Pulse 65 Temp(Src) 98.9 ??F (37.2 ??C) (Oral) Resp 16 Ht 5' 6.75 (1.695 m) Wt 220 lb 1.6 oz (99.837 kg) BMI 34.75 kg/m2 SpO2 97% LMP 05/24/2014 Body mass index is 34.75 kg/(m^2). GENERAL: healthy, alert and no distress, obese, in tears at times NECK: no adenopathy, no asymmetry, masses, or scars and thyroid normal to palpation RESP: lungs clear to auscultation - no rales, rhonchi or wheezes CV: regular rate and rhythm, normal S1 S2, no S3 or S4, no murmur, click or rub, no peripheral edemaand peripheral pulses strong MS: no gross musculoskeletal defects noted, no edema SKIN: no suspicious lesions or rashes NEURO: Normal strength and tone, mentation intact and speech normal Diagnostic Test Results: none ASSESSMENT/PLAN: ICD-9-CM 1. ANXIETY STATE NOS 300.00 Taper off lexapro, change to zoloft 2. MDD (major depressive disorder) 296.20 PHQ-9 ORDER - select when completing PHQ-9 GENERAL ANXIETY DISORDER QUESTIONNAIRE ([place]) Due for pap, on current period, follow up in 1 month for pap and recheck PHQ-9 Follow up 1 month Esmer Roland MD [facility] Physical Exam SERVICING OFFICER documented in this encounter Nursing Notes Melissa Leal, REFERENCE SERVICES HEAD - 05/27/2014 9:46 AM CST Chief Complaint Patient presents with ??? Recheck Medication LEXAPRO ??? Depression Initial BP 112/70 Pulse 65 Temp(Src) 98.9 ??F (37.2 ??C) (Oral) Resp 16 Ht 5' 6.75 (1.695 m) Wt 220 lb 1.6 oz (99.837 kg) BMI 34.75 kg/m2 SpO2 97% LMP 05/24/2014 Estimated body mass index is 34.75 kg/(m^2) as calculated from the following: Height as of this encounter: 5' 6.75 (1.695 m). Weight as of this encounter: 220 lb 1.6 oz (99.837 kg). BP completed using cuff size large RIGHT arm. Melissa Leal CMA SERVICING OFFICER documented in this encounter Plan of Treatment Not on filedocumented as of this encounter Visit Diagnoses Diagnosis ANXIETY STATE NOS - Primary Anxiety state, unspecified MDD (major depressive disorder) Major depressive disorder, single episod e, unspecified documented in this encounter Care Teams Vp Platforms Relationship Specialty Start Date End Date Esmer Roland MD PCP - General Family Practice 09/21/10 01/29/17 documented as of this encounter
--- OUTSIDE RECORDS SUMMARY | 2022-04-02 12:42 | XMS_ITS | Encounter Summary ---
:1975 Author Organization [place] Address [facility] [place] [address] Care Team Providers Name Role Phone Esmer Roland MD Primary Care Provider [phone] Reason for Visit Reason Onset Date Comments Nurse Advice Line 02/14/2014 Encounter Details Date Type Department Care Team Description 02/14/2014 Telephone [facility] Esmer Roland Nurse Advice Line Sara Byrd MD [address] [place] [address], [address] [place] [address] [address] [place] [address] [place], [place] [phone] (Wo rk) [address] [phone] Social History Tobacco Use Types Packs/Day Years Used Date Smoking Tobacco: Former Smokeless Tobacco: Never Comments: Very Occasional Alcohol Use Standard Drinks/Week Comments Yes 0 (1 standard drink = 0.6 oz pure 2-3 ti mes a week(1 glass of wine) 1 alcohol) qo weekend Sex Assigned at Date Recorded Not on file documented as of this encounter Miscellaneous Notes Telephone Encounter - Pau Gaxiola RN - 02/14/2014 1:24 PM CDT RN Close Contact Pertussis ExposureTreatment Protocol Dariana Osman, a 38 year old female, has been exposed to a known positive pertussis case. ASSESSMENT/PLAN: 1. Antibiotic treatment is indicated as per close contact guidelines. Adults- Primary- Azithromycin 500 mg in a single dose on day 1 then 250 mg per day on days 2-5 2. Follow-up: Asymptomatic contacts recieving prophylaxis should not be excluded from their usual activities SUBJECTIVE: Symptoms: no sx of pertussis Shortness of breath: NO Cough: NO Exposure to infectious person was 4 day(s) ago. Predisposing conditions include: Seasonal allergies In addition notes: None Complicating Factors or Serious Symptoms: Patient reports: none Patient denies: age under 1 year, age over 65, immunocompromised/ cancer/HIV/COPD, ALLERGIES: Allergies Allergen Reactions ??? Codeine OBJECTIVE: Weight: 0 lbs 0 oz Education provided. Patient verbalizes understanding of this plan and is agreeable. Encounter handled by: Nurse Triage. Pau Gaxiola RN documented in this encounter Plan of Treatment Not on filedocumented as of this encounter Visit Diagnoses Diagnosis Contact with or exposure to other commun icable diseases(V01.89) - Primary Contact with or exposure to other commun icable diseases documented in this encounter Care Teams Filler Sifter Helper Relationship Specialty Start Date End Date Esmer Roland MD PCP - General Family Practice 09/21/10 01/29/17 documented as of this encounter
--- OUTSIDE RECORDS SUMMARY | 2022-04-02 12:42 | XMS_ITS | Encounter Summary ---
:1975 Author Organization [place] Address [facility] [place] [address] Care Team Providers Name Role Phone Esmer Roland MD Primary Care Provider [phone] Reason for Visit Reason Onset Date Comments Formulary Issue 07/23/2013 pa on lexapro Encounter Details Date Type Department Care Team Description 07/23/2013 Telephone [facility] Esmer Roland Formula ry Issue (pa on Clinic [place] MD Rochelle lexapro) [address] [place] [address] 5 5068 [id number] [phone] Social History Tobacco Use Types Packs/Day Years Used Date Smoking Tobacco: Former Smokeless Tobacco: Never Comments: Very Occasional Alcohol Use Standard Drinks/Week Comments Yes 0 (1 standard drink = 0.6 oz pure 2-3 ti mes a week(1 glass of wine) 1 alcohol) qo weekend Sex Assigned at Date Recorded Not on file documented as of this encounter Miscellaneous Notes Telephone Encounter - Deidre Alas - 07/23/2013 2:58 PM CST Pa for Lexapro (generic) was approved through [facility] from 06/23/13 - 07/23/14 Mechelle LE LOOM OPERATOR HELPER documented in this encounter Plan of Treatment Not on filedocumented as of this encounter Visit Diagnoses Not on filedocumented in this encounter Care Teams Aquatics Director Relationship Specialty Start Date End Date Esmer Roland MD PCP - General Family Practice 09/21/10 01/29/17 documented as of this encounter
--- OUTSIDE RECORDS SUMMARY | 2022-04-02 12:42 | XMS_ITS | Encounter Summary ---
:1975 Author Organization [place] Address [address] [place] [address]. [place] [address] Care Team Providers Name Role Phone Esmer Roland MD Primary Care Provider [phone] Reason for Visit Reason Onset Date Comments Call To Schedule Appointment 09/22/2013 Pap due 08/08 014 Encounter Details Date Type Department Care Team Description 09/22/2013 Telephone [facility] Esmer Roland Call To Schedule Clinic Sara Byrd MD Appointment (Pap due [facility], [address] [place] [address] 08/2013) [address] [place] [address] [place], [place] [phone] (Wo rk) [address] [phone] Social History Tobacco Use Types Packs/Day Years Used Date Smoking Tobacco: Former Smokeless Tobacco: Never Comments: Very Occasional Alcohol Use Standard Drinks/Week Comments Yes 0 (1 standard drink = 0.6 oz pure 2-3 ti mes a week(1 glass of wine) 1 alcohol) qo weekend Sex Assigned at Date Recorded Not on file documented as of this encounter Miscellaneous Notes Telephone Encounter - Sridevi Magallon RN - 10/18/2013 8:21 AM CDT Pap completed on 10/01/13, see updated problem list. Sridevi Magallon RN Telephone Encounter - Mayela Reese RN - 09/22/2013 2:00 PM CDT 11/23/12 ASC-H. Colposcopy scheduled 12/25/12 02/18/13 LEEP= Negative, R/P pap in 6 and 12 months. Due 08/2013 and 02/201409/22/2013 No pap done. Will send Zollo message. Will post pone x 3 weeks. documented in this encounter Plan of Treatment Not on filedocumented as of this encounter Visit Diagnoses Diagnosis Abnormal Pap smear, can't excl hi gd sq intraepithelial lesion (ASC-H) - Primary Papanicolaou smear of cervix with atypic al squamous cells cannot exclude high grade squamous intraepithelial lesion (ASC-H) documented in this encounter Care Teams Performance Architect Relationship Specialty Start Date End Date Esmer Roland MD PCP - General Family Practice 09/21/10 01/29/17 documented as of this encounter
--- OUTSIDE RECORDS SUMMARY | 2022-04-02 12:42 | XMS_ITS | Encounter Summary ---
:1975 Author Organization [place] Address [facility] [place] [address] Care Team Providers Name Role Phone Esmer Roland MD Primary Care Provider [phone] Encounter Details Date Type Department Care Team Description 03/13/2015 E-Visit [facility] Yony Garcia Dysuria (Primary Dx) Sara Hoyos PA-C [address] [place] [address], [address] [place] [address] [address]VE [address] [place] [address] [place], [place] [phone] (Wo rk) [address] [phone] Social History Tobacco Use Types Packs/Day Years [...] as of this encounter Visit Diagnoses Diagnosis Dysuria - Primary documented in this encounter Care Teams Managed Care Manager Relationship Specialty Start Date End Date Esmer Roland MD PCP - General Family Practice 09/21/10 01/29/17 documented as of this encounter
--- OUTSIDE RECORDS SUMMARY | 2022-04-02 12:42 | XMS_ITS | Encounter Summary ---
:1975 Author Organization [place] Address [address] [place] [address] Care Team Providers Name Role Phone Esmer Roland MD Primary Care Provider [phone] Reason for Referral Consultation - Closed Specialty Diagnoses / Procedures Referred By Contact Refer red To Contact Diagnoses Large breasts Upper back pain Esmer Roland [facility] [address] [facility], [phone] [place] [phone] [place]NAVIDEZ [address] Phone: [phone] Referral ID Status Reason Start Date Expiration Date Visits Requ ested Visits Authorized [id number] Closed 07/23/2013 01/19/2014 1 1 ET SEWING MACHINE OPERATOR Reason for Visit Reason Comments Consult discuss surgery options Encounter Details Date Type Department Care Team Description 07/23/2013 Office Visit [facility] Esmer Roland b ack pain (Primary Dx); Clinic Sara Byrd MD Large breasts; [id number] [place], [place] [address] [address] MICHELLE MONCADA Abnormal uterine bleeding; Road, [address] [place] [address] Insomnia; [place] [phone] (Wo rk) ANXIETY STATE NOS [address] [phone] Social History Tobacco Use Types Packs/Day Years [...] Sign Reading Time Taken Comments Blood Pressure 114/80 07/23/2013 9:09 AM CARPET SEWING MACHINE OPERATOR Pulse 89 07/23/2013 9:09 AM CARPET SEWING MACHINE OPERATOR Temperature 37.2 ??C (99 ??F) 07/23/2013 9:09 AM CARPET SEWING MACHINE OPERATOR Respiratory Rate 16 07/23/2013 9:09 AM CARPET SEWING MACHINE OPERATOR Oxygen Saturation 96% 07/23/2013 9:09 AM CARPET SEWING MACHINE OPERATOR Inhaled Oxygen Concentration - - Weight 92.1 kg (203 lb) 07/23/2013 9:09 AM CARPET SEWING MACHINE OPERATOR Height - - Body Mass Index 32.03 04/02/2013 9:08 AM CDT documented in this encounter Progress Notes Esmer Roland MD - 07/23/2013 9:05 AM CST SUBJECTIVE: Dariana Osman is a 37 year old female who presents to clinic today for the following health issues: DISCUSS SURGERY OPTIONS Taking aleve for mid and upper back pain, seeing chiropractor, and working part time. Has large breasts, and 40 DDD and has pain in the upper shoulders, weight has been up and down, but even when she weighed more, will have upper and mid back pain. 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 Taking ibu and aleve every day and twice daily. Takes ambien prn, and not every night, taking lexapro and this helps a lot. Must have PA for this med. Failed many meds in the past Problem list and histories reviewed & adjusted, as indicated. Additional history: as documented PROBLEMS TO ADD ON... Problem list, Medication list, Allergies, and Medical/Social/Surgical histories reviewed in [facility] andupdated as appropriate. ROS: C: NEGATIVE for fever, chills, change in weight E/M: NEGATIVE for ear, mouth and throat problems R: NEGATIVE for significant cough or SOB CV: NEGATIVE for chest pain, palpitations or peripheral edema OBJECTIVE: BP 114/80 Pulse 89 Temp 99 ??F (37.2 ??C) (Oral) Resp 16 Wt 203 lb (92.08 kg) SpO2 96% There is no height on file to calculate BMI. GENERAL: healthy, alert, well nourished, well hydrated, no distress HENT: ear canals- normal; TMs- normal; Nose- normal; Mouth- no ulcers, no lesions NECK: no tenderness, no adenopathy, no asymmetry, no masses, no stiffness; thyroid- normal to palpation RESP: lungs clear to auscultation - no rales, no rhonchi, no wheezes CV: regular rates and rhythm, normal S1 S2, no S3 or S4 and no murmur, no click or rub - MS: extremities- no gross deformities noted, no edema SKIN: no suspicious lesions, no rashes Upper back with deep churchill from bra strap, tender muscles along paraspinal, mid and upper back, Tight deltoids as well ASSESSMENT/PLAN: 724.1 Upper back pain (primary encounter diagnosis) Comment: agree that breast reduction would help her back pain Plan: PLASTIC SURGERY REFERRAL 611.1 Large breasts Comment: see above Plan: PLASTIC SURGERY REFERRAL 626.9 Abnormal uterine bleeding Comment: due for pap next month Plan: norgestimate-ethinyl estradiol (ORTHO-CYCLEN, SPRINTEC) 0.25-35 MG-MCG tablet 780.52 Insomnia Comment: pt does not take this daily Plan: zolpidem (AMBIEN) 5 MG tablet 300.00 ANXIETY STATE NOS Comment: cont same Plan: escitalopram (LEXAPRO) 20 MG tablet Follow up with Provider - next month, 2 weeks recheck phentermine Esmer Roland MD [facility] ET SEWING MACHINE OPERATOR documented in this encounter Nursing Notes 07/23/2013 9:00 AM CST >> RIC PARR Fri Jul 23, 2013 9:13 AM Patient presents with: Consult - discuss surgery options Initial BP 114/80 Pulse 89 Temp 99 ??F (37.2 ??C) (Oral) Resp 16 Wt 203 lb (92.08 kg) QcY902% Estimated Body mass index is 32.05 kg/(m^2) as calculated from the following: Height as of 04/02/13: 5' 6.75(1.695 m). Weight as of this encounter: 203 lb(92.08 kg). BP completed using cuff size: everton Parr LPN documented in this encounter Plan of Treatment Scheduled Referrals Name Type Priority Associated Diagnoses Order S chedule PLASTIC SURGERY Referral Routine Large breasts Ordered: 07/23/2013 REFERRAL Upper back pain documented as of this encounter Visit Diagnoses Diagnosis Upper back pain - Primary Pain in thoracic spine Large breasts Hypertrophy of breast Abnormal uterine bleeding Unspecified disorder of menstruation and other abnormal bleeding from female genital tract Insomnia Insomnia, unspecified ANXIETY STATE NOS Anxiety state, unspecified documented in this encounter Care Teams Oil Heater Operator Relationship Specialty Start Date End Date Esmer Roland MD PCP - General Family Practice 09/21/10 01/29/17 documented as of this encounter
--- OUTSIDE RECORDS SUMMARY | 2022-04-02 12:42 | XMS_ITS | Encounter Summary ---
:1975 Author Organization [place] Address [address] [place] [address]. [place] [address] Care Team Providers Name Role Phone Esmer Roland MD Primary Care Provider [phone] Reason for Visit Reason Onset Date Comments Refill Request 05/09/2014 LEXAPRO 20MG and Amb ien Encounter Details Date Type Department Care Team Description 05/09/2014 Refill [facility] Esmer Roland Refill Request (LEXAPRO [facility] [place] MD Rochelle 20MG and Ambien ) [address] [facility], [address] [place] [address] [address] [place] [address] [place], [place] [phone] (Wo rk) [address] [phone] Social History Tobacco Use Types Packs/Day Years Used Date Smoking Tobacco: Former Smokeless Tobacco: Never Comments: Very Occasional Alcohol Use Standard Drinks/Week Comments Yes 0 (1 standard drink = 0.6 oz pure 2-3 ti mes a week(1 glass of wine) 1 alcohol) qo weekend Sex Assigned at Date Recorded Not on file documented as of this encounter Miscellaneous Notes Telephone Encounter - Maricarmen Gamble - 05/10/2014 1:29 PM CST Ambian RX faxed to [facility] Maricarmen SMALL [employer]pet [facility] TRICAL LOGGING ENGINEER Telephone Encounter - Esmer Cavanaugh RN - 05/09/2014 1:11 PM CST Refilled Lexapro PSO for quanity of #60 the pt also requested a refill on her Ambien 5mg. Last Seen: 10/01/[address] Roland Last PHQ-9 score on record= PHQ[place]9 SCORE [place] 05/09/2014 Total Score 8 Total Score - EUGENE-7 ([employer], 2002; Used with Permission) 05/09/2014 Over the last 2 weeks, how often have you been bothered by feeling nervous, anxious or on edge? 0=Not at all Over the last 2 weeks, how often have you been bothered by not being able to stop or control worrying? 0=Not at all Over the last 2 weeks, how often have you been bothered by worrying too much about different things?1=Several Days Over the last 2 weeks, how often have you been bothered by trouble relaxing? 0=Not at all Over the last 2 weeks, how often have you been bothered by being so restless that it is hard to sit still? 0=Not at all Over the last 2 weeks, how often have you been bothered by becoming easily annoyed or irritable? 1=Several days Over the last 2 weeks, how often have you been bothered by feeling afraid as if something awful might happen? 0=Not at all EUGENE-7 Total Score = 2 Rtc instructions: 3 months the pt will f/u prior to running out of the Lexapro Esmer Cavanaugh RN. TRICAL LOGGING ENGINEER Telephone Encounter - Lennie Haddad - 05/09/2014 1:00 PM CST PT called requesting refill of Lexapro 20MG to [facility]. Please call her when done [phone]. TRICAL LOGGING ENGINEER documented in this encounter Plan of Treatment Not on filedocumented as of this encounter Visit Diagnoses Diagnosis ANXIETY STATE NOS Anxiety state, unspecified Adjustment disorder with anxiety Insomnia Insomnia, unspecified documented in this encounter Care Teams Audit Associate Relationship Specialty Start Date End Date Esmer Roland MD PCP - General Family Practice 09/21/10 01/29/17 documented as of this encounter
--- OUTSIDE RECORDS SUMMARY | 2022-04-02 12:42 | XMS_ITS | Encounter Summary ---
:1975 Author Organization [place] Address [address] [facility] [place] [address] Care Team Providers Name Role Phone Esmer Roland MD Primary Care Provider [phone] Reason for Visit Reason Comments Pre-Op Exam Encounter Details Date Type Department Care Team Description 10/29/2013 Office Visit [facility] Kenneth Couch Pre gen eral Clinic Sara Booth MD physical exam [id number] [place] [address] [facility] (Primary Dx) Road, [address] [place] [address] [place], [place] [phone] (Wo rk) [address] [phone] Social History Tobacco Use Types Packs/Day Years [...] Sign Reading Time Taken Comments Blood Pressure 128/74 10/29/2013 7:56 AM CDT Pulse 77 10/29/2013 7:56 AM CDT Temperature 37.1 ??C (98.8 ??F) 10/29/2013 7:56 AM CDT Respiratory Rate 14 10/29/2013 7:56 AM CDT Oxygen Saturation - - Inhaled Oxygen Concentration - - Weight 98 kg (216 lb) 10/29/2013 7:56 AM CDT Height 169.5 cm (5' 6.75) 10/29/2013 7:56 AM CDT Body Mass Index 34.08 10/29/2013 7:56 AM CDT documented in this encounter Progress Notes Kenneth Couch MD - 10/29/2013 8:01 AM CDT [address], [address] [facility] [address] Dept: [phone] PRE-OP EVALUATION: Today's date: 10/29/2013 Dariana Osman (: 1975) presents for pre-operative evaluation assessment as requested by Dr. Washington. She requires evaluation and anesthesia risk assessment prior to undergoing surgery/procedure Breast reduction Date of Surgery/ Procedure: 11/03/13 Time of Surgery/ Procedure: 1000 Hospital/Surgical Facility: [facility] Fax number for surgical facility: [phone] Primary Physician: Esmer Roland Type of Anesthesia Anticipated: General Patient has a Health Care Directive or Living Will: NO HPI: 1. NO - Do you have a history of heart attack, stroke, stent, bypass or surgery on an artery in the head, neck, heart or legs? 2. NO - Do you ever have any pain or discomfort in your chest? 3. NO - Have you ever had a severe pain across the front of your chest lasting for half an hour or more? 4. NO - Do you have a history of Congestive Heart Failure? 5. NO - Are you troubled by shortness of breath when: walking on the level/ up a slight hill/ at night? 6. NO - Does your chest ever sound wheezy or whistling? 7. NO - Do you currently have a cold, bronchitis or other respiratory infection? 8. NO - Have you had a cold, bronchitis or other respiratory infection within the last 2 weeks? 9. NO - Do you usually have a cough? 10. NO - Do you sometimes get pains in the calves of your legs when you walk? 11. NO - Do you or anyone in your family have previous history of blood clots? 12. NO - Do you or does anyone in your family have a serious bleeding problem such as prolonged bleeding following surgeries or cuts? 13. NO - Have you ever had problems with anemia or been told to take iron pills? 14. NO - Have you had any abnormal blood loss such as black, tarry or bloody stools, or abnormal vaginal bleeding? 15. NO - Have you ever had a blood transfusion? 16. NO - Have you or any of your relatives ever had problems with anesthesia? 17. NO - Do you have sleep apnea, excessive snoring or daytime drowsiness? 18. NO - Do you have any prosthetic heart valves? 19. NO - Do you have prosthetic joints? 20. NO - Is there any chance that you may be ? See problem list for active medical problems. Problems all longstanding and stable, except as noted/documented. See ROS for pertinent symptoms related to these conditions. . MEDICAL HISTORY: Patient Active Problem List Diagnosis Date Noted ??? Abnormal Pap smear, can't excl hi gd sq intraepithelial lesion (ASC-H) 11/23/2012 Priority: Medium 11/23/12 ASC-H. 12/25/12 [place]= BRIGID 2. Referred to [facility], Dr. Christensen 02/18/13 LEEP= Negative, R/P pap [...] Outpatient Prescriptions Medication Sig Dispense Refill ??? norgestimate-ethinyl estradiol (ORTHO-CYCLEN, SPRINTEC) 0.25-35 MG-MCG tablet Take 1 tablet by mouth daily 4 Package 3 ??? escitalopram (LEXAPRO) 20 MG tablet Take 2 tablets (40 mg) by mouth daily 180 tablet 1 ??? ALPRAZolam (XANAX) 0.5 MG tablet Take 1 tablet (0.5 mg) by mouth nightly as needed for anxiety 40 tablet 0 ??? phentermine 37.5 MG capsule Take 1 capsule (37.5 mg) by mouth every morning 30 capsule 0 ??? zolpidem (AMBIEN) 5 MG tablet Take 1 tablet (5 mg) by mouth nightly as needed 90 tablet 0 ??? Cholecalciferol (VITAMIN D3) 2000 UNITS TABS Take 4,000 Int'l Units by mouth. OTC products: no recent use of OTC ASA, NSAIDS or Steroids Allergies Allergen Reactions ??? Codeine Latex Allergy: NO History Substance Use Topics ??? Smoking status: Former Smoker ??? Smokeless tobacco: Never Used Comment: Very Occasional ??? Alcohol Use: Yes Comment: 2-3 times a week(1 glass of wine) 1 qo weekend History Drug Use No REVIEW OF SYSTEMS: C: NEGATIVE for fever, chills, change in weight E/M: NEGATIVE for ear, mouth and throat problems R: NEGATIVE for significant cough or SOB CV: NEGATIVE for chest pain, palpitations or peripheral edema EXAM: BP 128/74 Pulse 77 Temp(Src) 98.8 ??F (37.1 ??C) (Oral) Resp 14 Ht 5' 6.75 (1.695 m) Wt 216 lb (97.977 kg) BMI 34.1 kg/m2 LMP 09/26/2013 GENERAL APPEARANCE: healthy, alert and no distress HENT: ear canals and TM's normal and nose and mouth without ulcers or lesions RESP: lungs clear to auscultation - no rales, rhonchi or wheezes CV: regular rate and rhythm, normal S1 S2, no S3 or S4 and no murmur, click or rub ABDOMEN: soft, nontender, no HSM or masses and bowel sounds normal NEURO: Normal strength and tone, sensory exam grossly normal, mentation intact and speech normal DIAGNOSTICS: EKG: Not indicated due to non-vascular surgery and low risk of event (age <65 and without cardiacrisk factors) IMPRESSION: Reason for surgery/procedure: Breast reduction Diagnosis/reason for consult: preoperative clearance The proposed surgical procedure is considered LOW risk. REVISED CARDIAC RISK INDEX The patient has the following serious cardiovascular risks for perioperative complications such as (ID, PE, VFib and 3?? AV Block): No serious cardiac risks INTERPRETATION: 0 risks: Class I (very low risk - 0.4% complication rate) The patient has the following additional risks for perioperative complications: No identified additional risks No diagnosis found. RECOMMENDATIONS: --Approval given to proceed with proposed procedure, without further diagnostic evaluation Signed Electronically by: Kenneth Couch MD Copy of this evaluation report is provided to requesting physician. [facility] Preop Guidelines 2013 documented in this encounter Plan of Treatment Not on filedocumented as of this encounter Visit Diagnoses Diagnosis Preop general physical exam - Primary Other specified pre-operative examinatio n documented in this encounter Care Teams Boat Wrapper Relationship Specialty Start Date End Date Esmer Roland MD PCP - General Family Practice 09/21/10 01/29/17 documented as of this encounter
--- OUTSIDE RECORDS SUMMARY | 2022-04-02 12:42 | XMS_ITS | Encounter Summary ---
:1975 Author Organization [facility] Address [address] [place] [address] Care Team Providers Name Role Phone Esmer Roland MD Primary Care Provider [phone] Reason for Visit Reason Comments Recheck Medication Phentermine Encounter Details Date Type Department Care Team Description 02/10/2013 Allied Health/Nurse [facility] Rec heck Medication Visit Clinic [place] (Phentermine) [facility], [address] [place] [address] Social History Tobacco Use Types [...] Sign Reading Time Taken Comments Blood Pressure 119/74 02/10/2013 1:55 PM CDT Pulse 77 02/10/2013 1:55 PM CDT Temperature - - Respiratory Rate - - Oxygen Saturation - - Inhaled Oxygen Concentration - - Weight 90.1 kg (198 lb 11.2 oz) 02/10/2013 1:55 PM CDT Height - - Body Mass Index 31.35 12/25/2012 8:37 AM CDT documented in this encounter Plan of Treatment Not on filedocumented as of this encounter Visit Diagnoses Diagnosis Obesity - Primary Obesity, unspecified documented in this encounter Care Teams Immigration Investigator Relationship Specialty Start Date End Date Esmer Roland MD PCP - General Family Practice 09/21/10 01/29/17 documented as of this encounter
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
--- OUTSIDE RECORDS SUMMARY | 2022-04-02 12:42 | XMS_ITS | Encounter Summary ---
:1975 Author Organization [place] Address [address] [facility] [place] [address] Care Team Providers Name Role Phone Esmer Roland MD Primary Care Provider [phone] Reason for Referral [facility] Physical Therapy - Closed Specialty Diagnoses / Procedures Referred By Contact Refer red To Contact Diagnoses Pfs (patellofemoral syndrome), unspecified laterality Pes anserine bursitis Kenneth Couch, [facility] [id number] [address] ADMIN OFFICE [place] [address] Phone: [phone] Referral ID Status Reason Start Date Expiration Date Visits Requ ested Visits Authorized [id number] Closed 02/21/2014 08/20/2014 1 1 Reason for Visit Reason Comments Knee Pain Encounter Details Date Type Department Care Team Description [facility]2014 [facility]ser [facility]e burs[facility] (Primary Dx); Clinic Sara Booth MD PFS (patellofemoral syndrome), unspecifi ed laterality [place] [address] [facility], [address] [place] [address] [place] [phone] (Wo rk) [address] [phone] Social History Tobacco Use Types Packs/Day Years [...] Sign Reading Time Taken Comments Blood Pressure 122/80 02/21/2014 1:45 PM CDT Pulse 78 02/21/2014 1:45 PM CDT Temperature 37 ??C (98.6 ??F) 02/21/2014 1:45 PM CDT Respiratory Rate 16 02/21/2014 1:45 PM CDT Oxygen Saturation - - Inhaled Oxygen Concentration - - Weight 98.4 kg (217 lb) 02/21/2014 1:45 PM CDT Height 169.5 cm (5' 6.75) 02/21/2014 1:45 PM CDT Body Mass Index 34.24 02/21/2014 1:45 PM CDT documented in this encounter Progress Notes Kenneth Couch MD - 02/21/2014 1:47 PM CDT HPI SUBJECTIVE: Dariana Osman is a 38 year old female who presents to clinic today for the following health issues: Joint Pain ?? Onset: 6 months ?? Description: Location: left knee and right knee Character: Sharp and burning ?? Intensity: moderate ?? Progression of Symptoms: worse ?? Accompanying Signs & Symptoms: Other symptoms: none ?? History: Previous similar pain: no ?? Precipitating factors: Trauma or overuse: YES- was running but not any more working 2 jobs one standing for most of shift ?? Alleviating factors: Improved by: rest/inactivity, ice and NSAID - ibuprofen [id number]/day started fish oil by chiropractor recommendation ?? Recurrent knee pain - TOD. Had initially a problem when running, but has stopped that. Works two jobs, on her feet all day. Pain is worse at the end of the day, bad overnight. Pain is along lower edge of knee cap, TOD, equal. No swelling, hearing some grinding in R knee, popping in both knees when standing up. Seem particularly tight after sitting for a while. Links to starting with running program. Had been seeing chiropractor, stretching seemed helpful. Using ibuprofen and ice. Meds reveiwed - Lexapro, OCP, fish oil. Does not smoke. Review of Systems Constitutional: Negative for fever and chills. Respiratory: Negative. Cardiovascular: Negative. Musculoskeletal: Positive for joint pain. Neurological: Negative. Physical Exam Constitutional: She is oriented to person, place, and time and well-developed, well-nourished, and in no distress. Eyes: Conjunctivae and EOM are normal. Cardiovascular: Normal rate, regular rhythm and normal heart sounds. Pulmonary/Chest: Effort normal and breath sounds normal. Musculoskeletal: She exhibits no edema. Right knee: She exhibits normal range of motion, no swelling, no effusion, no LCL laxity, normal patellar mobility and no MCL laxity. Tenderness found. Lateral joint line tenderness noted. Left knee: She exhibits normal range of motion, no swelling, no effusion, no LCL laxity, normal patellar mobility and no MCL laxity. Tenderness found. Lateral joint line tenderness noted. TTP Pes anserine bursa TOD Neurological: She is alert and oriented to person, place, and time. Skin: Skin is warm and dry. Vitals reviewed. (726.61) Pes anserine bursitis (primary encounter diagnosis) Comment: Plan: NIRAJ PT, HAND, AND CHIROPRACTIC REFERRAL (719.46) PFS (patellofemoral syndrome), unspecified laterality Comment: Plan: NIRAJ PT, HAND, AND CHIROPRACTIC REFERRAL Cont ibuprofena dn ice, but back off a bit and use more tylenol RTC in Kenneth Couch MD documented in this encounter Plan of Treatment Scheduled Referrals Name Type Priority Associated Diagnoses Order S chedule NIRAJ PT, HAND, AND Referral Routine PFS (patellofemoral Ord ered: 02/21/2014 CHIROPRACTIC REFERRAL syndrome), unspecif ied laterality Pes anserine bursitis documented as of this encounter Visit Diagnoses Diagnosis Pes anserine bursitis - Primary Pes anserinus tendinitis or bursitis Pfs (patellofemoral syndrome), unspecifi ed laterality documented in this encounter Care Teams Flower Cheniller Relationship Specialty Start Date End Date Esmer Roland MD PCP - General Family Practice 09/21/10 01/29/17 documented as of this encounter
--- OUTSIDE RECORDS SUMMARY | 2022-04-02 12:42 | XMS_ITS | Encounter Summary ---
:1975 Author Organization [place] Address [address] [facility] [place] [address] Care Team Providers Name Role Phone Esmer Roalnd MD Primary Care Provider [phone] Yony Garcia PA-C Primary Care Provider [phone] Yony Garcia PA-C Unavailable [phone] Erik Rivas Primary Care Provider Yony Garcia PA-C Unavailable [phone] Reason for Visit Reason Onset Date Comments Refill Request 09/28/2013 Phentermine 37.5mg Encounter Details Date Type Department Care Team Description 09/28/2013 Refill [facility] Esmer Roland Refill Request Clinic Sara Byrd MD (Phentermine 37.5mg) [address] [place] [address] [place], [place] [phone] (Wo rk) [address] [phone] Social History Tobacco Use Types Packs/Day Years Used Date Smoking Tobacco: Former Smokeless Tobacco: Never Comments: Very Occasional Alcohol Use Standard Drinks/Week Comments Yes 0 (1 standard drink = 0.6 oz pure 2-3 ti mes a week(1 glass of wine) 1 alcohol) qo weekend Sex Assigned at Date Recorded Not on file documented as of this encounter Miscellaneous Notes Telephone Encounter - Ban Monge - 09/28/2013 10:51 AM CDT Last Fill Date: 07/19/13 Last Fill Quantity: 30 Last Office Visit: 07/23/13 [facility] High Risk Case Manager [facility] [email or web address] Thank you! documented in this encounter Plan of Treatment Not on filedocumented as of this encounter Visit Diagnoses Diagnosis Obesity Obesity, unspecified documented in this encounter Care Teams Audiology Assistant Relationship Specialty Start Date End Date Esmer Roland, PCP - General Family Practice 09/21/10 01/29/17 Yony Garcia, PCP - General Physician Customer Sales Consultant - 01/30/17 07/23/18 PA-C Medical Yony Garcia, PCP - Assigned PCP 09/01/16 08/11/18 PA-C [id number] [place] [id number] Erik Rivas PCP - General Family Practice 07/24/[address] [address] Yony Garcia, Assigned PCP 09/01/16 PA-C [id number] [address] [place] [id number] documented as of this encounter
--- OUTSIDE RECORDS SUMMARY | 2022-04-02 12:42 | XMS_ITS | Encounter Summary ---
:1975 Author Organization [place] Address [address] [facility] [place] [address] Care Team Providers Name Role Phone Esmer Roland MD Primary Care Provider [phone] Reason for Visit Reason Onset Date Comments Call To Schedule Appointment 02/03/2015 ultrasound Encounter Details Date Type Department Care Team Description 02/03/2015 Telephone [facility] Jeimy Christensen Call To Schedule Clinic Jamie Sellers DO Appointment [address] [facility] [address] (ultrasound) [place], [place] [address] [address] [place], [place] [phone] [address] (Work) [phone] Social History Tobacco Use Types Packs/Day Years Used Date Smoking Tobacco: Former Smokeless Tobacco: Never Comments: Very Occasional Alcohol Use Standard Drinks/Week Comments Yes 0 (1 standard drink = 0.6 oz pure 1 TIME A a week(1 glass of wine) 1 alcohol) qo weekend Sex Assigned at Date Recorded Not on file documented as of this encounter Miscellaneous Notes Telephone Encounter - Airam Billy - 02/07/2015 7:34 AM CDT Letter sent for Dariana to return our call and schedule an Ultrasound as per order from Dr. Christensen on 02/02/15. Telephone Encounter - Airam Billy - 02/06/2015 9:19 AM CDT Left message for Dariana to return call to schedule an Ultrasound. Telephone Encounter - Airam Billy - 02/03/2015 2:11 PM CDT Left message for Dariana to return call to schedule an Ultrasound. documented in this encounter Plan of Treatment Not on filedocumented as of this encounter Visit Diagnoses Not on filedocumented in this encounter Care Teams Grain Weigher Relationship Specialty Start Date End Date Esmer Roland MD PCP - General Family Practice 09/21/10 01/29/17 documented as of this encounter
--- OUTSIDE RECORDS SUMMARY | 2022-04-02 12:42 | XMS_ITS | Encounter Summary ---
:1975 Author Organization [facility] Address [address] [facility] [place] [address] Care Team Providers Name Role Phone Fawad Roland MD Primary Care Provider [phone] Reason for Visit Reason Comments Physical fasting Encounter Details Date Type Department Care Team Description [facility] Routine general medical examination at a health care facility (Primary Dx); Clinic Sara Byrd MD Family history of thyroid disease in fat her; [place] [id number] [address] BMI 34.0-34.9,adult; Road, [address] [place] [address] ANXIETY STATE N[place], [place] [phone] (Wo rk) [id number] [phone] Social History Tobacco Use Types Packs/Day Years [...] Reading Time Taken Comments Blood Pressure 122/80 07/08/2014 9:54 AM PARTS COUNTER REPRESENTATIVE Pulse 71 07/08/2014 9:54 AM PARTS COUNTER REPRESENTATIVE Temperature 37.3 ??C (99.1 ??F) 07/08/2014 9:54 AM PARTS COUNTER REPRESENTATIVE Respiratory Rate - - Oxygen Saturation 100% 07/08/2014 9:54 AM PARTS COUNTER REPRESENTATIVE Inhaled Oxygen Concentration - - Weight 99.8 kg (220 lb) 07/08/2014 9:54 AM PARTS COUNTER REPRESENTATIVE Height 168.9 cm (5' 6.5) 07/08/2014 9:54 AM PARTS COUNTER REPRESENTATIVE Body Mass Index 34.98 07/08/2014 9:54 AM PARTS COUNTER REPRESENTATIVE documented in this encounter Patient Instructions Patient InstructionsTimothy Herrera CMA - 07/08/2014 9:47 AM CST Preventive Health Recommendations Female Ages 26 - 39 Yearly exam: See your health care provider every year in order to ??? Review health changes. ??? Discuss preventive care. ??? Review your medicines if you your doctor has prescribed any. Until age 30: Get a Pap test every three years (more often if you have had an abnormal result). After age 30: Talk to your doctor about whether you should have a Pap test every 3 years or have a Pap test with HPV screening every 5 years. You do not need a Pap test if your uterus was removed (hysterectomy) and you have not had cancer. You should be tested each year for STDs (sexually transmitted diseases), if you're at risk. Talk to your provider about how often to have your cholesterol checked. If you are at risk for diabetes, you should have a diabetes test (fasting glucose). Shots: Get a flu shot each year. Get a tetanus shot every 10 years. Nutrition: ??? Eat at least 5 servings of fruits and vegetables each day. ??? Eat whole-grain bread, whole-wheat pasta and brown rice instead of white grains and rice. ??? For bone health: Eat calcium-rich foods or take calcium pills (500 to 600 mg) twice a day with food. Also take vitamin D (1000 IUs) each day. Lifestyle ??? Exercise at least 150 minutes a week (30 minutes a day, 5 days of the week). This will help you control your weight and prevent disease. ??? Limit alcohol to one drink per day. ??? No smoking. ?? Wear sunscreen to prevent skin cancer. ?? See your dentist every six months for an exam and cleaning. ?? S COUNTER REPRESENTATIVE documented in this encounter Progress Notes Fawad Roland MD - 07/08/2014 9:44 AM CST SUBJECTIVE: CC: Dariana Valdez is an 38 year old woman who presents for preventive health visit. Physical Annual: Getting at least 3 servings of Calcium per day:: NO Bi-annual eye exam:: Yes Dental care twice a year:: NO Sleep apnea or symptoms of sleep apnea:: None Diet:: Regular (no restrictions) Frequency of exercise:: 1 day/week Taking medications regularly:: Yes Additional concerns today:: No discuss phentermine. Today's PHQ-2 Score: 4 Abuse: Current or Past(Physical, Sexual or Emotional)- No Do you feel safe in your environment - Yes History Substance Use Topics ??? Smoking status: Former Smoker ??? Smokeless tobacco: Never Used Comment: Very Occasional ??? Alcohol Use: Yes Comment: 1 TIME A a week(1 glass of wine) 1 qo weekend The patient does not drink >3 drinks per day nor >7 drinks per week. Recent Labs Lab Test 10/01/13 1013 11/23/12 1215 CHOL 146 154 HDL 41* 50 LDL 89 64 TRIG 80 200* CHOLHDLRATIO 3.6 3.1 Reviewed orders with patient. Reviewed health maintenance and updated orders accordingly - Yes Mammo Decision Support: Mammogram not appropriate for this patient based on age. Last Mammo:No results found. History of abnormal Pap smear: YES - updated in Problem List and Health Maintenance accordingly All Histories reviewed and updated in [facility]. Depression Follow-Up ?? Status since last visit: Worsened slightly, doing ok, changed from lexapro to zoloft, not feelingsociable lately, no energy ?? See PHQ-9 for current symptoms. ?? Other associated symptoms:None ?? Complicating factors: Significant life event: No Current substance abuse: None Anxiety / Panic symptoms: No PHQ-9 Guatemalan PHQ-9 Any Language ROS: C: NEGATIVE for fever, chills, change in weight I: NEGATIVE for worrisome rashes, moles or lesions E: NEGATIVE for vision changes or irritation ENT: NEGATIVE for ear, mouth and throat problems R: NEGATIVE for significant cough or SOB B: NEGATIVE for masses, tenderness or discharge CV: NEGATIVE for chest pain, palpitations or peripheral edema GI: NEGATIVE for nausea, abdominal pain, heartburn, or change in bowel habits : NEGATIVE for unusual urinary or vaginal symptoms. Periods are regular. M: NEGATIVE for significant arthralgias or myalgia N: NEGATIVE for weakness, dizziness or paresthesias P: NEGATIVE for changes in mood or affect Problem list, Medication list, Allergies, and Medical/Social/Surgical histories reviewed in [facility] andupdated as appropriate. Labs reviewed in [facility] OBJECTIVE: BP 122/80 Pulse 71 Temp(Src) 99.1 ??F (37.3 ??C) (Oral) Ht 5' 6.5 (1.689 m) Wt 220 lb (99.791 kg) BMI 34.98 kg/m2 SpO2 100% LMP 06/23/2014 GENERAL APPEARANCE: healthy, alert and no distress EYES: Eyes grossly normal to inspection, PERRL and conjunctivae and sclerae normal HENT: ear canals and TM's normal, nose and mouth without ulcers or lesions, oropharynx clear and oral mucous membranes moist NECK: no adenopathy, no asymmetry, masses, or scars and thyroid normal to palpation RESP: lungs clear to auscultation - no rales, rhonchi or wheezes BREAST: normal without masses, tenderness or nipple discharge and no palpable axillary masses or adenopathy, scarring noted from breast reduction, right side scar with larger than normal scar and redness, nontender, no odor, dry CV: regular rates and rhythm, normal S1 S2, no S3 or S4, no murmur, click or rub, no peripheral edema and peripheral pulses strong ABDOMEN: soft, nontender, no hepatosplenomegaly, no masses and bowel sounds normal (female): normal female external genitalia, vaginal mucosa pink, moist, well rugated and normal cervix, adnexae, and uterus without masses. Normal vaginal discharge MS: no musculoskeletal defects are noted and gait is age appropriate without ataxia SKIN: no suspicious lesions or rashes NEURO: Normal strength and tone, sensory exam grossly normal, mentation intact and speech normal PSYCH: mentation appears normal and affect normal/bright ASSESSMENT/PLAN: 1. Routine general medical examination at a health care facility Normal exam, other then weight and right breast scar - LIPID REFLEX TO DIRECT LDL PANEL - PAP IMAGED THIN LAYER SCREEN - TSH with free T4 reflex - Comprehensive metabolic panel - norgestimate-ethinyl estradiol (ORTHO-CYCLEN, SPRINTEC) 0.25-35 MG-MCG tablet; Take 1 tablet by mouth daily Dispense: 4 Package; Refill: 3 2. Family history of thyroid disease in father Checking today, due to weight, depression - TSH with free T4 reflex 3. BMI 34.0-34.9,adult Continue to work on exercise, diet, follow up 1 month - TSH with free T4 reflex - phentermine 37.5 MG capsule; Take 1 capsule (37.5 mg) by mouth every morning Dispense: 30 capsule;Refill: 0 4. ANXIETY STATE NOS Continue same for now, follow up 1 month - sertraline (ZOLOFT) 100 MG tablet; Take 1 tablet (100 mg) by mouth daily Dispense: 90 tablet; Refill: 1 Counseling Resources: ATP IV Guidelines Pooled Cohorts Equation Calculator Breast Cancer Risk Calculator FRAX Risk Assessment ICSI Preventive Guidelines Dietary Guidelines for Americans, 2009 [employer] MyPlate regular exercise healthy diet/nutrition contraception-options discussed reports that she has quit smoking. She has never used smokeless tobacco. Estimated body mass index is 34.98 kg/(m^2) as calculated from the following: Height as of this encounter: 5' 6.5 (1.689 m). Weight as of this encounter: 220 lb (99.791 kg). Weight management plan: Diet regimen was discussed and plan is self-directed dieting: reduce carbs, increase fruits/vegetables and avoid sweets. Fawad Roland MD [facility] S COUNTER REPRESENTATIVE documented in this encounter Nursing Notes Timothy Herrera CMA - 07/08/2014 9:55 AM CST Chief Complaint Patient presents with ??? Physical fasting Initial BP 122/80 Pulse 71 Temp(Src) 99.1 ??F (37.3 ??C) (Oral) Ht 5' 6.5 (1.689 m) Wt 220 lb (99.791 kg) BMI 34.98 kg/m2 SpO2 100% LMP 06/23/2014 Estimated body mass index is 34.98 kg/(m^2) as calculated from the following: Height as of this encounter: 5' 6.5 (1.689 m). Weight as of this encounter: 220 lb (99.791 kg). BP completed using cuff size: large.Timothy Post MA S COUNTER REPRESENTATIVE documented in this encounter Plan of Treatment Not on filedocumented as of this encounter Procedures Procedure Name Priority Date/Time Associated Comments Diagnosis TSH WITH FREE T4 Routine 07/08/2014 10:36 Routine General Resu lts for this REFLEX AM PARTS COUNTER REPRESENTATIVE Medical Examination procedur e are in [facility] the results Facility section. Family history of thyroid disease in father BMI 34.0-34.9,adult LIPID REFLEX TO DIRECT Routine 07/08/2014 10:36 Routine Genera l Results for this LDL PANEL AM PARTS COUNTER REPRESENTATIVE Medical Examination procedur e are in [facility] the results Facility section. COMPREHENSIVE Routine 07/08/2014 10:36 Routine General Results for this METABOLIC PANEL AM PARTS COUNTER REPRESENTATIVE Medical Examination proce mehul are in At [facility] the results Facility section. PAP IMAGED THIN LAYER Routine 07/08/2014 12:00 Routine General Results for this SCREEN AM PARTS COUNTER REPRESENTATIVE Medical Examination procedur e are in At [facility] the results Facility section. HPV SCR W REF TO TIEN Routine 07/08/2014 12:00 Re sults for this ANAL PAP OR TISSUE AM PARTS COUNTER REPRESENTATIVE procedure are in the results section. documented in this encounter Results Comprehensive metabolic panel (07/08/2014 10:36 AM PARTS COUNTER REPRESENTATIVE) P athologist Signature Sodium 139 133 - 144 [facility] mmol/L [facility] Potassium 4.8 3.4 - 5.3 [facility] mmol/L [facility] Chloride 108 94 - 109 [facility] mmol/L [facility] Carbon Dioxide 24 20 - 32 [facility] S mmol/L [facility] Anion Gap 7 3 - 14 [facility] mmol/L [facility] Glucose 83 70 - 99 [facility] mg/dL [facility] Comment: Effective 01/05/2014, the reference range for this assay has changed to reflect new instrumentation/methodology. Urea Nitrogen 11 7 - 30 mg/dL [facility] ICS [facility] Comment: Effective 01/05/2014, the reference range for this assay has changed to reflect new instrumentation/methodology. Creatinine 0.81 0.52 - 1.04 mg/dL [facility] GFR Estimate 80 >60 mL/min/1.7m2 [facility] Comment: Non GFR Calc GFR Estimate If >90 >60 mL/min/1.7m2 [facility] Black GFR Calc [facility] Calcium 9.0 8.5 - 10.1 mg/dL [facility] Comment: Effective 01/05/2014, the reference range for this assay has changed to reflect new instrumentation/methodology. Bilirubin Total 0.3 0.2 - 1.3 mg/dL [facility] Albumin 3.7 3.4 - 5.0 g/dL [facility] S [facility] Protein Total 7.3 6.8 - 8.8 g/dL [facility] Alkaline Phosphatase 70 40 - 150 U/L [facility] ALT 24 0 - 50 U/L [facility] AST 11 0 - 45 U/L [facility] Specimen Anatomical Collection Method Collection Time Receive d Time (Source) Location / / Volume Laterality Blood specimen 07/08/2014 10:36 5 (specimen) AM PARTS COUNTER REPRESENTATIVE 10:37 AM PARTS COUNTER REPRESENTATIVE Fawad Roland MD LAB - BLOOD ORDERABLES Performing Organization Address City/State/ZIP Code Phon e Number [facility] [address] [place] [address] TSH with free T4 reflex (07/08/2014 10:36 AM PARTS COUNTER REPRESENTATIVE) P athologist Signature TSH 3.44 0.40 - 4.00 [facility] mU/L [facility] Comment: Effective 01/05/2014, the reference range for this assay has changed to reflect new instrumentation/methodology. Specimen Anatomical Collection Method Collection Time Receive d Time (Source) Location / / Volume Laterality Blood specimen 07/08/2014 10:36 5 (specimen) AM PARTS COUNTER REPRESENTATIVE 10:37 AM PARTS COUNTER REPRESENTATIVE Fawad Roland MD LAB - BLOOD ORDERABLES Performing Organization Address City/State/ZIP Code Phon e Number [facility] [address] [place] [address] (ABNORMAL) LIPID REFLEX TO DIRECT LDL PANEL (07/08/2014 10:36 AM PARTS COUNTER REPRESENTATIVE) P athologist Signature Cholesterol 155 <200 mg/dL [facility] Comment: LDL Cholesterol is the primary guide to therapy. The NCEP recommends further evaluation of: patients with cholesterol greater than 200 mg/dL if additional risk facto rs are present, cholesterol greater than 240 mg/dL, triglycerides greater than 1 50 mg/dL, or HDL less than 40 mg/dL. Triglycerides 159 (H) 0 - 150 mg/dL [facility] HDL Cholesterol 46 (L) >50 mg/dL [facility] LDL Cholesterol Calculated 77 0 - 129 mg/dL [facility] Comment: LDL Cholesterol is the primary guide to therapy: LDL-cholesterol goal in high risk patients is <100 mg/dL and in very high risk patients is <70 mg/dL. VLDL-Cholesterol 32 (H) 0 - 30 mg/dL [facility] Cholesterol/HDL Ratio 3.4 0.0 - 5.0 [facility] Specimen Anatomical Collection Method Collection Time Receive d Time (Source) Location / / Volume Laterality Blood specimen 07/08/2014 10:36 5 (specimen) AM PARTS COUNTER REPRESENTATIVE 10:37 AM PARTS COUNTER REPRESENTATIVE Fawad Roland MD LAB - BLOOD ORDERABLES Performing Organization Address City/State/ZIP Code Phon e Number [facility] [address] [place] [address] HPV screen with reflex to genotype (07/08/2014 12:00 AM PARTS COUNTER REPRESENTATIVE) Component Value Ref Test Analysis Performed At [facility]olo [facility]ist Range Method Time Signature Copath Report Patient Name: DARIANA VALDEZ MR#: [id number] Specimen #: [id number] Collected: 07/08/2014 00:00 Received: 07/14/2014 11:28 Reported: 07/14/2014 16:18 Ordering Phy(s): FAWAD ROLAND TEST(S) REQUESTED: Human Papillomavirus Screen Analysis SPECIMEN DESCRIPTION: Cervical Cells RESULTS: HPV 16 DNA: ?? NEGATIVE HPV 18 DNA: ??NEGATIVE OTHER HR HPV DNA: ??NEGATIVE FINAL DIAGNOSIS: ?? This patient's sample is negative for HP V DNA. ?? The [place] (ACOG) r ecommends any woman between 30-65 years old who receives negative test results on both Pap cytology screening and HPV DNA testing should be re screened in 5 years. METHODOLOGY: ??The [employer] cheng 4800 system uses automated ex traction, simultaneous amplification of HPV (L1 region) and beta-globi n, ??followed by ??real time detection of fluorescent labeled HPV and beta globin using specific oligonucleotide probes . The test specifically iden tifies types HPV16 and HPV18 while concurrently detecting the rest of the high risk types (31, 33, 35, 39, 45, 51, 52, 56, 58, 59, 66 or 68). COMMENTS: ??This test is not intended for use as a screening device for women under age 30 with normal cervical cytology. ??Results should be correlated with cytologic and histologic findings. ??Close c linical follow up is recommended. This test was developed and its performance characteristics determined by the [facility]. It has not been cleared or approved by the FDA. The laboratory is regulated under CLIA as qualified to perform high-complexity testing. This test is used for clinical purp oses. It should not be regarded as investigational or for research. Electronically Signed Out By: DAVIS [employer]eter[employer] Associate CPT Codes: A: 71678- HPVSC TESTING LAB LOCATION: [facility] [address] [facility] [address] [place] [address] COLLECTION SITE: Client: ??[facility] Location: ??[facility] (R) Specimen (Source) Anatomical Collection Method Collection Time Re ceived Time Location / / Volume Laterality 07/08/2014 07/14/2014 11:2 8 AM PARTS COUNTER REPRESENTATIVE Fawad Roland MD LAB - GENOMICS Performing Organization Address City/State/ZIP Code Phon e Number [facility] PAP IMAGED THIN LAYER SCREEN (07/08/2014 12:00 AM PARTS COUNTER REPRESENTATIVE) Component Value Ref Test Analysis Performed At [facility] Range Method Time Signature PAP NIL [facility] Copath Report [facility] Patient Name: DARIANA VALDEZ MR#: [id number] Specimen #: [id number] Collected: 07/08/2014 Received: 07/11/2014 Reported: 07/13/2014 13:17 Ordering Phy(s): FAWAD ROLAND SPECIMEN/STAIN PROCESS: Pap imaged thin layer prep screening (Surepath, FocalPoint w ith guided screening) ? Pap-Cyto x 1, Reflex HPV if NIL/ASCUS/LSIL x 1 SOURCE: Cervical, endocervical ---- Pap imaged thin layer prep screening (Surepath, FocalPoint with guided screening) SPECIMEN ADEQUACY: Satisfactory for evaluation. -Transformation zone component present. CYTOLOGIC INTERPRETATION: Negative for Intraepithelial Lesion or Malignancy Electronically signed out by: LAVON Centeno (ASCP) Processed and screened at [facility] CLINICAL HISTORY: Previous normal pap Date of Last Pap: 10/01/13 Previous abnormal pap: HGSIL, LEEP: in 2012, Papanicolaou Test Limitations: ??Cervical cytology is a scre ening test with limited sensitivity; regular screening is critical for cancer prevention; Pap tests are primarily effective for the diagnosis/prevention of squamous cell carcinoma, not adenoca rcinomas or other cancers. TESTING LAB LOCATION: [address] ??[id number] COLLECTION SITE: Client: ??[facility] Location: [facility] (R) Specimen (Source) Anatomical Collection Method Collection Time Re ceived Time Location / / Volume Laterality Cytologic 07/08/2014 07/11/2014 2:26 material PM PARTS COUNTER REPRESENTATIVE (specimen) Fawad Roland MD LAB - OPTIME CLINICAL SPECIM EN Performing Organization Address City/State/ZIP Code Phon e Number [facility] documented in this encounter Visit Diagnoses Diagnosis Routine general medical examination at a health care facility - Primary Family history of thyroid disease in fat her BMI 34.0-34.9,adult Body Mass Index 34.0-34.9, adult ANXIETY STATE NOS Anxiety state, unspecified documented in this encounter Care Teams Faculty Criminal Justice Relationship Specialty Start Date End Date Fawad Roland MD PCP - General Family Practice 09/21/10 01/29/17 documented as of this encounter
--- OUTSIDE RECORDS SUMMARY | 2022-04-02 12:42 | XMS_ITS | Encounter Summary ---
:1975 Author Organization [place] Address [address] [place] [address] Care Team Providers Name Role Phone Esmer Roland MD Primary Care Provider [phone] Reason for Visit Reason Onset Date Comments Prior Authorization 01/05/2014 Escitalopram needs P A Encounter Details Date Type Department Care Team Description 01/05/2014 Telephone [facility] Esmer Roland Prior A uthorization Clinic Sara Byrd MD (Escitalopram needs [place]) [address] [address] [facility], [address] [place] [address] [place], [place] [phone] (Wo rk) [address] [phone] Social History Tobacco Use Types Packs/Day Years [...] Telephone Encounter - Mayela Reese RN - 01/06/2014 9:08 AM CDT Called number listed and PA effective til 07/23/2014. Advised pharmacy got a DUR rejection and needs to call . Called Deidre in pharmacy and she re-ran script and rx went through. Mayela Reese, RN Telephone Encounter - Esmer Roland MD - 01/06/2014 7:19 AM CDT Ok, please start this, thank you Telephone Encounter - Elva Grissom - 01/05/2014 1:24 PM CDT Insurance is requiring a PA for Dariana to take 2 of her escitalopram daily. If you would call to begin the process Her ID is [id number] Thank you! documented in this encounter Plan of Treatment Not on filedocumented as of this encounter Visit Diagnoses Not on filedocumented in this encounter Care Teams Management Nurse Rn Relationship Specialty Start Date End Date Esmer Roland MD PCP - General Family Practice 09/21/10 01/29/17 documented as of this encounter
--- OUTSIDE RECORDS SUMMARY | 2022-04-02 12:42 | XMS_ITS | Encounter Summary ---
:1975 Author Organization [place] Address [address] [facility] [place] [address] Care Team Providers Name Role Phone Fawad Roland MD Primary Care Provider [phone] Reason for Visit Reason Comments Physical Physical and Pap. Blood Draw Labs. Patient is fasting. Refill Request Encounter Details Date Type Department Care Team Description 10/[facility]2013 [facility] Routine general medical examination at a health care facility (Primary Dx); Clinic Sara Byrd MD ANXIETY STATE NOS; [place] [address] [address]; [address], [address] [place] [address] Screening for malignant neoplasm of the cervix [place], [place] [phone] (Wo rk) [id number] [phone] Social History Tobacco Use Types Packs/Day Years [...] Sign Reading Time Taken Comments Blood Pressure 122/78 10/01/2013 9:34 AM CDT Pulse 80 10/01/2013 9:34 AM CDT Temperature 37.1 ??C (98.8 ??F) 10/01/2013 9:34 AM CDT Respiratory Rate 16 10/01/2013 9:34 AM CDT Oxygen Saturation 98% 10/01/2013 9:34 AM CDT Inhaled Oxygen Concentration - - Weight 95.8 kg (211 lb 4.8 oz) 10/01/2013 9:34 AM CDT Height 169.5 cm (5' 6.75) 10/01/2013 9:34 AM CDT Body Mass Index 33.34 10/01/2013 9:34 AM CDT documented in this encounter Patient Instructions Patient InstructionsMelissa Leal, GUY - 10/01/2013 9:35 AM CDT Preventive Health Recommendations Female Ages 26 - [...] months for an exam and cleaning. ?? documented in this encounter Progress Notes Fawad Roland MD - 10/01/2013 9:35 AM CDT SUBJECTIVE: CC: Dariana Valdez is an 37 year old woman who presents for preventive health visit. Healthy Habits: ?? Do you get at least three servings of calcium containing foods daily (dairy, green leafy vegetables, etc.)? no, taking calcium and/or vitamin D supplement: no ?? Amount of exercise or daily activities, outside of work: every other day per week ?? Problems taking medications regularly No ?? Medication side effects: No ?? Have you had an eye exam in the past two years? yes ?? Do you see a dentist twice per year? no ?? Do you have sleep apnea, excessive snoring or daytime drowsiness?no Other concerns to address: Obesity, patient is trying to run with Moms on the run, will be taking phentermine as well, felt drymouth in the past, so needs to drink more water, no anxiety. Today's PHQ-2 Score: Abuse: Current or Past(Physical, Sexual or Emotional)- NO Do you feel safe in your environment - YES History Substance Use Topics ??? Smoking status: Former Smoker ??? Smokeless tobacco: Never Used Comment: Very Occasional ??? Alcohol Use: Yes Comment: 2-3 times a week(1 glass of wine) 1 qo weekend The patient does not drink >3 drinks per day nor >7 drinks per week. Recent Labs Lab Test 11/23/12 1215 03/05/12 1006 CHOL 154 184 HDL 50 46* LDL 64 111 TRIG 200* 135 CHOLHDLRATIO 3.1 4.0 Reviewed orders with patient. Reviewed health maintenance and updated orders accordingly - Yes Mammo Decision Support: Mammogram not appropriate for this patient based on age. Last Mammo:No results found. History of abnormal Pap smear: YES - updated in Problem List and Health Maintenance accordingly All Histories reviewed and updated in [facility]. ROS: C: NEGATIVE for fever, chills, change [...] list, Allergies, and Medical/Social/Surgical histories reviewed in [facility] andupdated as appropriate. Labs reviewed in [facility] OBJECTIVE: BP 122/78 Pulse 80 Temp(Src) 98.8 ??F (37.1 ??C) (Oral) Resp 16 Ht 5' 6.75 (1.695 m) Wt 211 lb 4.8 oz (95.845 kg) BMI 33.36 kg/m2 SpO2 98% LMP 08/30/2013 Estimated body mass index is 33.36 kg/(m^2) as calculated from the following: Height as of this encounter: 5' 6.75 (1.695 m). Weight as of this encounter: 211 lb 4.8 oz (95.845 kg). GENERAL APPEARANCE: healthy, alert and no distress [...] discharge and no palpable axillary masses or adenopathy CV: regular rate and rhythm, normal S1 S2, no S3 or S4, no murmur, click or rub, no peripheral edemaand peripheral pulses strong ABDOMEN: soft, nontender, no hepatosplenomegaly, no masses and bowel sounds normal (female): normal female external genitalia, vaginal mucosa pink, moist, well rugated and normal cervix, adnexae, and uterus without masses or discharge MS: no musculoskeletal defects are noted and gait is age appropriate without ataxia SKIN: no suspicious lesions or rashes NEURO: Normal strength and tone, sensory exam grossly normal, mentation intact and speech normal PSYCH: mentation appears normal and affect normal/bright ASSESSMENT/PLAN: (V70.0) Routine general medical examination at a health care facility (primary encounter diagnosis) Comment: normal exam, other than obesity Plan: PAP imaged thin layer, diagnostic, PHQ-9 ORDER - select when completing PHQ-9, norgestimate-ethinyl estradiol (ORTHO-CYCLEN, SPRINTEC) 0.25-35 MG-MCG tablet, Lipid panel reflex to direct LDL, Comprehensive metabolic panel, TSH with free T4 reflex, CBC with platelets, Vitamin D Deficiency (300.00) ANXIETY STATE NOS Comment: continue 40mg, advised to try to lwoer dose, but patient having to much anxiety at this time to try a change Plan: escitalopram (LEXAPRO) 20 MG tablet Follow up 3 months (780.52) Insomnia Comment: use rarely, not nightly, discussed other options, patient will think about it Plan: ALPRAZolam (XANAX) 0.5 MG tablet Discussed trazadone or restoril, try to avoid xanax every night (V76.2) Screening for malignant neoplasm of the cervix Comment: Plan: pap done today, 6 month follow up Counseling Resources: ATP III Guidelines Breast Cancer Risk Calculator FRAX Risk Assessment ICSI Preventive Guidelines Dietary Guidelines for Americans, 2010 [employer] regular exercise healthy diet/nutrition reports that she has quit smoking. She has never used smokeless tobacco. Estimated body mass index is 33.36 kg/(m^2) as calculated from the following: Height as of this encounter: 5' 6.75 (1.695 m). Weight as of this encounter: 211 lb 4.8 oz (95.845 kg). Weight management plan: Diet regimen was discussed and plan is commercial programs and self-directeddieting: reduce carbs, increase fruits/vegetables and avoid sweets. Fawad Roland MD [facility] documented in this encounter Nursing Notes Melissa Leal, GUY - 10/01/2013 9:38 AM CDT Chief Complaint Patient presents with ??? Physical Physical and Pap. ??? Blood Draw Labs. Patient is fasting. ??? Refill Request Initial BP 122/78 Pulse 80 Temp(Src) 98.8 ??F (37.1 ??C) (Oral) Resp 16 Ht 5' 6.75 (1.695 m) Wt 211 lb 4.8 oz (95.845 kg) BMI 33.36 kg/m2 SpO2 98% LMP 08/30/2013 Estimated body mass index is 33.36 kg/(m^2) as calculated from the following: Height as of this encounter: 5' 6.75 (1.695 m). Weight as of this encounter: 211 lb 4.8 oz (95.845 kg). BP completed using cuff size large right arm. Melissa Leal CMA documented in this encounter Miscellaneous Notes Addendum Note - Cathy Sams MA - 10/01/2013 10:08 AM CDT Addended by: CATHY SAMS on: 10/01/2013 10:08 AM Modules accepted: Orders, SmartSet documented in this encounter Plan of Treatment Not on filedocumented as of this encounter Procedures Procedure Name Priority Date/Time Associated Comments Diagnosis VITAMIN D DEFICIENCY Routine 10/01/2013 10:13 Routine general Results for this SCREENING AM CDT medical examination procedur e are in at a health care the results facility section. TSH WITH FREE T4 Routine 10/01/2013 10:13 Routine general Resu lts for this REFLEX AM CDT medical examination procedur e are in at a health care the results facility section. LIPID REFLEX TO DIRECT Routine 10/01/2013 10:13 Routine genera l Results for this LDL PANEL AM CDT medical examination procedur e are in at a health care the results facility section. COMPREHENSIVE Routine 10/01/2013 10:13 Routine general Results for this METABOLIC PANEL AM CDT medical examination proce dure are in at a health care the results facility section. CBC WITH PLATELETS Routine 10/01/2013 10:13 Routine general Re sults for this AM CDT medical examination procedur e are in at a health care the results facility section. PAP IMAGED THIN LAYER, Routine 10/01/2013 12:00 Routine genera l Results for this DIAGNOSTIC AM CDT medical examination procedur e are in at a health care the results facility section. documented in this encounter Results Vitamin D Deficiency (10/01/2013 10:13 AM CDT) athologist Signature Vitamin D 53 30 - 75 [facility] Deficiency ug/L [facility] screening Comment: Season, race, dietary intake, and treatm ent affect the concentration of 31-acsuwyn-Ijsaqwc D. Values may decrea se during winter months and increase during summer months. Values less than 30 ug/L may indicate Vitamin D deficiency. Vitamin D determiniation is routinely p erformed by an immunoassay specific for 25 hydroxyvitamin D3. ??If an individua l is on vitamin D2 (ergocalciferol) supplementation, please specify 25 OH v itamin D2 and D3 level determination by LCMSMS test VITD23. ??For questions, pl ease contact the laboratory at [phone]. Specimen Anatomical Collection Method Collection Time Receive d Time (Source) Location / / Volume Laterality Blood specimen 10/01/2013 10:13 4 (specimen) AM CDT 10:14 AM CDT Fawad Roland MD LAB - BLOOD ORDERABLES Performing Organization Address City/State/ZIP Code Phon e Number [address] LABS CBC with platelets (10/01/2013 10:13 AM CDT) athologist Signature WBC 7.2 4.0 - 11.0 [facility] 10e9/L [facility] RBC Count 4.29 3.8 - 5.2 [facility] 10e12/L [facility] Hemoglobin 13.4 11.7 - [facility] 15.7 g/dL [facility] Hematocrit 39.4 35.0 - [facility] 47.0 % [facility] MCV 92 78 - 100 [facility] fl [facility] MCH 31.2 26.5 - [facility] 33.0 pg [facility] MCHC 34.0 31.5 - [facility] 36.5 g/dL [facility] RDW 12.5 10.0 - [facility] 15.0 % [facility] Platelet Count 300 150 - 450 [facility] 10e9/L [facility] Specimen Anatomical Collection Method Collection Time Receive d Time (Source) Location / / Volume Laterality Blood specimen 10/01/2013 10:13 4 (specimen) AM CDT 10:14 AM CDT Fawad Roland MD LAB - BLOOD ORDERABLES Performing Organization Address City/State/ZIP Code Phon e Number [facility] [place] [address] TSH with free T4 reflex (10/01/2013 10:13 AM CDT) athologist Signature TSH 1.76 0.4 - 5.0 [facility] mU/L [place] Specimen Anatomical Collection Method Collection Time Receive d Time (Source) Location / / Volume Laterality Blood specimen 10/01/2013 10:13 4 (specimen) AM CDT 10:14 AM CDT Fawad Roland MD LAB - BLOOD ORDERABLES Performing Organization Address City/[facility]/ZIP Code Phon e Number [facility] [place] [address] [place] [id number] [facility] [address] [place] [address] [phone] (ABNORMAL) Comprehensive metabolic panel (10/01/2013 10:13 AM CDT) P athologist Signature Sodium 138 133 - 144 [facility] mmol/L [facility] Potassium 4.3 3.4 - 5.3 [facility] mmol/L [facility] Chloride 102 94 - 109 [facility] mmol/L [facility] Carbon Dioxide 24 20 - 32 [facility] mmol/L [facility] Anion Gap 11 6 - 17 [facility] mmol/L [facility] Glucose 85 60 - 99 [facility] mg/dL [facility] Urea Nitrogen 9 5 - 24 [facility] mg/dL [facility] Creatinine 0.88 0.52 - [facility] 1.04 mg/dL [facility] GFR Estimate 73 >60 [facility] mL/min/1.7 [facility] m2 GFR Estimate If 88 >60 [facility] Black mL/min/1.7 [facility] m2 Calcium 8.6 8.5 - 10.4 [facility] mg/dL [facility] Bilirubin Total 0.3 0.2 - 1.3 [facility] mg/dL [facility] Albumin 3.6 (L) 3.9 - 5.1 [facility] g/dL [facility] Comment: Reference range changed on 02/08. Protein Total 6.4 (L) 6.8 - 8.8 g/dL [facility] [place] Comment: As of 07, reference range reflects plasma specimen type. Alkaline Phosphatase 56 40 - 150 U/L [facility] ALT 20 0 - 50 U/L [facility] EA [place] AST 17 0 - 45 U/L [facility] EA [place] Specimen Anatomical Collection Method Collection Time Receive d Time (Source) Location / / Volume Laterality Blood specimen 10/01/2013 10:13 4 (specimen) AM CDT 10:14 AM CDT Fawad Roland MD LAB - BLOOD ORDERABLES Performing Organization Address City/State/ZIP Code Phon e Number [facility] [address] [place] [address] (ABNORMAL) Lipid panel reflex to direct LDL (10/01/2013 10:13 AM CDT) P athologist Signature Cholesterol 146 <200 mg/dL [facility] Comment: LDL Cholesterol is the primary guide to therapy. The NCEP recommends further evaluation of: patients with cholesterol greater than 200 mg/dL if additional risk facto rs are present, cholesterol greater than 240 mg/dL, triglycerides greater than 1 50 mg/dL, or HDL less than 40 mg/dL. Triglycerides 80 0 - 150 mg/dL [facility] [place] HDL Cholesterol 41 (L) >50 mg/dL [facility] [place] LDL Cholesterol Calculated 89 0 - 129 mg/dL [facility] Comment: LDL Cholesterol is the primary guide to therapy: LDL-cholesterol goal in high risk patients is <100 mg/dL and in very high risk patients is <70 mg/dL. VLDL-Cholesterol 16 0 - 30 mg/dL [facility] Cholesterol/HDL Ratio 3.6 0.0 - 5.0 [facility] Specimen Anatomical Collection Method Collection Time Receive d Time (Source) Location / / Volume Laterality Blood specimen 10/01/2013 10:13 4 (specimen) AM CDT 10:14 AM CDT Fawad Roland MD LAB - BLOOD ORDERABLES Performing Organization Address City/State/ZIP Code Phon e Number [facility] [address] [place] [address] PAP imaged thin layer, diagnostic (10/01/2013 12:00 AM CDT) Component Value Ref Test Analysis Performed At [facility] Range Method Time Signature PAP NIL COPATH Copath Report COPATH Patient Name: DARIANA VALDEZ MR#: [id number] Specimen #: [id number] Collected: 10/01/2013 Received: 10/04/2013 Reported: 10/06/2013 10:42 Ordering Phy(s): FAWAD ROLAND SPECIMEN/STAIN PROCESS: Pap Imaged thin layer prep diagnostic (SurePath, FocalPoint with guided screening) ? Pap-Cyto x 1, Reflex HPV if ASCUS/LSIL x 1 SOURCE: Cervical, endocervical ---- Pap Imaged thin layer prep diagnostic (SurePath, FocalPoint with guided screening) SPECIMEN ADEQUACY: Satisfactory for evaluation. -Transformation zone component absent. CYTOLOGIC INTERPRETATION: Negative for Intraepithelial Lesion or Malignancy Electronically signed out by: LAVON Whittington ??(ASCP) Processed and screened at [facility] CLINICAL HISTORY: Previous abnormal pap: ASC-H Date of Last Pap: 11/23/12, Papanicolaou Test Limitations: ??Cervical cytology is a scre ening test with limited sensitivity; regular screening is critical for cancer prevention; Pap tests are primarily effective for the diagnosis/prevention of squamous cell carcinoma, not adenoca rcinomas or other cancers. TESTING LAB LOCATION: [address] ??[address] COLLECTION SITE: Client: ??[facility] Location: [facility] (R) Specimen (Source) Anatomical Collection Method Collection Time Re ceived Time Location / / Volume Laterality Cytologic 10/01/2013 10/04/2013 10:0 5 material AM CDT (specimen) Fawad Roland MD LAB - OPTIME CLINICAL SPECIM EN Performing Organization Address City/State/ZIP Code Phon e Number [facility] documented in this encounter Visit Diagnoses Diagnosis Routine general medical examination at a health care facility - Primary ANXIETY STATE NOS Anxiety state, unspecified Insomnia Insomnia, unspecified Screening for malignant neoplasm of the cervix documented in this encounter Care Teams Nursery Attendant Relationship Specialty Start Date End Date Fawad Roland MD PCP - General Family Practice 09/21/10 01/29/17 documented as of this encounter
--- OUTSIDE RECORDS SUMMARY | 2022-04-02 12:42 | XMS_ITS | Encounter Summary ---
:1975 Author Organization [place] Address [address] [place] [address]. [place] [address] Care Team Providers Name Role Phone Esmer Roland MD Primary Care Provider [phone] Reason for Visit Reason Onset Date Comments Medication Request 10/13/2014 Lexapro 20mg Encounter Details Date Type Department Care Team Description 10/13/[address] [facility] Esmer Roland Medicat ion Request Clinic Sara Byrd MD (Lexapro 20mg) [address] [place] [address] [address] [place] [address] [place], [place] [phone] (Wo rk) [address] [phone] Social History Tobacco Use Types Packs/Day Years [...] Telephone Encounter - Mayela Reese RN - 10/14/2014 10:17 AM CDT Patient notified. Mayela Reese RN Telephone Encounter - Yony Garcia PA-C - 10/14/2014 9:57 AM CDT She will need to taper off the zoloft. Go to 50mg daily and can add 10mg lexapro. Do this for a couple weeks. Then 25mg zoloft and 20mg lexapro for 1-2 weeks. Then can stop zoloft if feeling OK. Telephone Encounter - Mayela Reese RN - 10/14/2014 8:[address] Luan Bhakta is out of the office today. Can you please review this message and approve rx? Thank you, Mayela Reese RN Telephone Encounter - Mayela Reese RN - 10/13/2014 8:50 AM CDT Patient calling requesting to go back to Lexapro 20mg. She states that she switched to Sertraline 100mg and is just not doing well on it. She feels like her heart is racing, has difficulty breathing attimes and her anxiety has increased. Please approve rx. Mayela Reese RN documented in this encounter Plan of Treatment Not on filedocumented as of this encounter Visit Diagnoses Diagnosis ANXIETY STATE NOS - Primary Anxiety state, unspecified documented in this encounter Care Teams Cnc Machine Programmer Relationship Specialty Start Date End Date Esmer Roland MD PCP - General Family Practice 09/21/10 01/29/17 documented as of this encounter
--- OUTSIDE RECORDS SUMMARY | 2022-04-02 12:42 | XMS_ITS | Encounter Summary ---
:1975 Author Organization [place] Address [facility] [place] [address] Care Team Providers Name Role Phone Esmer Roland MD Primary Care Provider Reason for Visit Reason Onset Date Comments Refill Request 02/27/2015 Xanax Encounter Details Date Type Department Care Team Description 02/27/2015 Refill [facility] Esmer Roland Refill Request (Xanax) Clinic [place] MD [place] [address] [place] [address], [address] [place] [address] [address] [place] [address] [place], [place] [phone] (Wo rk) [address] [phone] Social History Tobacco Use Types Packs/Day Years [...] Notes Telephone Encounter - Maricarmen Gamble - 03/01/2015 2:59 PM CDT RX faxed to pharmacy Maricarmen SMALL Director Family [facility] Telephone Encounter - Mayela Reese RN - 03/01/2015 1:45 PM CDT Patient under a lot of stress over the last 2 weeks. Has been crying often and having a hard time catching her breath off/on. She recently broke up with her boyfriend, her insurance just got cancelled and she does not have enough money to pay for it out of pocket right now. Patient requesting just a few (10) to get her through. Please approve. Mayela Reese RN Telephone Encounter - Yony Garcia PA-C - 02/28/2015 2:12 PM CDT I've only seen her once. Why is she crying on the phone? ajp Telephone Encounter - Nohemi Avalos - 02/27/2015 2:42 PM CDT Ph. [phone] Patient crying on the phone and does not have insurance Pending Prescriptions: Disp Refills ALPRAZolam (XANAX) 0.5 MG tablet 40 tab*0 Sig: Take 1 tablet (0.5 mg) by mouth nightly as needed for anxiety Last Written Prescription Date: 10/01/2013 Last Fill Quantity: 40, # refills: 0 Last Office Visit with [facility] primary care provider: 01/06/2015 Future Office visit: Routing refill request to provider for review/approval because: Drug not on the [facility] refill protocol or controlled substance Nohemi Avalos Director Family documented in this encounter Plan of Treatment Not on filedocumented as of this encounter Visit Diagnoses Diagnosis Insomnia - Primary Insomnia, unspecified documented in this encounter Care Teams Dogger Relationship Specialty Start Date End Date Esmer Roland MD PCP - General Family Practice 09/21/10 01/29/17 documented as of this encounter
--- OUTSIDE RECORDS SUMMARY | 2022-04-02 12:42 | XMS_ITS | Encounter Summary ---
:1975 Author Organization [place] Address [address] [place] [address]. [place] [address] Care Team Providers Name Role Phone Esmer Roland MD Primary Care Provider [phone] Reason for Visit Reason Onset Date Comments Refill Request 01/06/2014 Phentermine 37.5mg Encounter Details Date Type Department Care Team Description 01/06/2014 Refill [facility] Esmer Roland Refill Request Clinic Sara Byrd MD (Phentermine 37.5mg) [address] [place] [address] [place], [place] [phone] (Wo rk) [address] [phone] Social History Tobacco Use Types Packs/Day Years [...] Encounter - Mayela Reese RN - 01/06/2014 3:45 PM CDT RX faxed and patient notified. Mayela Reese RN Telephone Encounter - Esmer Roland MD - 01/06/2014 11:00 AM CDT I can refill this today, if patient will also do a food journal every day, jotting down the time sheeats, what, and measuring how much. Also daily exercise(which she has been very good about in the past, so should not be a problem) Also will need a follow up appointment with her food journal in 1 month If she can do this, will refill Telephone Encounter - Mayela Reese RN - 01/06/2014 10:17 AM CDT Patient here today for nurse only weight and blood pressure check to get refill of phentermine. States that she has not been consistently taking it but plans on it now. Please refill. Last OV: Nurse only visit 01/06/2014 Wt Readings from Last 2 Encounters: 01/06/14 214 lb (97.07 kg) 10/29/13 216 lb (97.977 kg) BP Readings from Last 3 Encounters: 01/06/14 118/75 10/29/13 128/74 10/01/13 122/78 Mayela Reese, RN documented in this encounter Plan of Treatment Not on filedocumented as of this encounter Visit Diagnoses Diagnosis Obesity Obesity, unspecified documented in this encounter Care Teams Director Service Relationship Specialty Start Date End Date Esmer Roland MD PCP - General Family Practice 09/21/10 01/29/17 documented as of this encounter
--- OUTSIDE RECORDS SUMMARY | 2022-04-02 12:43 | XMS_ITS | Encounter Summary ---
:1975 Author Organization Section Address [address] [place] [address] Care Team Providers Name Role Phone Esmer Roland MD Primary Care Provider [phone] Reason for Visit Reason Onset Date Comments Social Work Services 12/31/2010 Care Coordintion Encounter Details Date Type Department Care Team Description 12/31/2010 Telephone [facility] Martin Hauser ocial Work Services [facility] [place] Shane Garcia MD (Care Coordintion) [address] [place] [id number] [address] [phone] [place], [place] [address] (Wo rk) Social History Tobacco Use Types Packs/Day Years Used Date Smoking Tobacco: Some Days Smokeless Tobacco: Never Comments: Very Occasional Alcohol Use Standard Drinks/Week Comments Yes 0 (1 standard drink = 0.6 oz pure alcoho l) 1 qo weekend Sex Assigned at Date Recorded Not on file documented as of this encounter Miscellaneous Notes Telephone Encounter - Kourtney Haynes - 01/02/2011 1:49 PM CDT No outreach to patient as patient is set up with services. CAITLIN Kahn, CCM Telephone Encounter - AnalisaMartin españa MD - 01/01/2011 8:12 AM CDT Will follow-up with Luan or myself in 1 month She has counselor Martin Hauser MD [facility] Telephone Encounter - Kourtney Haynes - 12/31/2010 5:11 PM CDT Care Coordination Initial Continuous Improvement Facilitator Assessment PCP: BHUMI HAUSER Referral Source: Patient identified from ED DC Census from [facility]. Utilization: Patient seen in ED on 12/30/2010. Notes from ED visit not available in EMR. Patient seen in [facility] today (12/31/2010) by PCP. No future PCP visits scheduled. Patient is to follow up with counselor in next 2 weeks. Patient last ED visit on 07/01/2010 at [facility] & admitted for depression. Only 1 ED in 2009. Disease State: Anxiety, depression (patient denies this & last PHQ ( done in 02/2009 with score of 19) Medications: patient started on ativan at ED Psychosocial: Patient is process of divorce & has 2 children ages (8 & 6). Plan: 1) No call out today as patient seen today by PCP. 2) Continuous Improvement Facilitator to call out to patient on next business day. SONI KahnW, [facility] documented in this encounter Plan of Treatment Not on filedocumented as of this encounter Visit Diagnoses Not on filedocumented in this encounter Care Teams Service Worker Helper Relationship Specialty Start Date End Date Esmer Roland MD PCP - General Family Practice 09/21/10 01/29/17 documented as of this encounter
--- OUTSIDE RECORDS SUMMARY | 2022-04-02 12:43 | XMS_ITS | Encounter Summary ---
:1975 Author Organization [place] Address [address] [place] [address]. [place] [address] Care Team Providers Name Role Phone Esmer Roland MD Primary Care Provider Reason for Visit Reason Onset Date Comments Refill Request 05/06/2011 Tori Esteban Encounter Details Date Type Department Care Team Description 05/06/2011 Refill [facility] Esmer Roland Refill Request (Carlito, [facility] [place] Ativan) [address] [facility], [address] [place] [address] [address] [place] [address] [place], [place] [phone] (Wo rk) [address] [phone] Social History Tobacco Use Types Packs/Day Years Used Date Smoking Tobacco: Former Smokeless Tobacco: Never Comments: Very Occasional Alcohol Use Standard Drinks/Week Comments Yes 0 (1 standard drink = 0.6 oz pure alcoho l) 1 qo weekend Sex Assigned at Date Recorded Not on file documented as of this encounter Miscellaneous Notes Telephone Encounter - Esmer Roland MD - 05/06/2011 2:45 PM 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 Thank you, Mayela Reese RN IR ELECTRIC MOTOR ASSEMBLER documented in this encounter Plan of Treatment Not on filedocumented as of this encounter Visit Diagnoses Diagnosis ANXIETY STATE NOS Anxiety state, unspecified Insomnia Insomnia, unspecified documented in this encounter Care Teams Political Analyst Relationship Specialty Start Date End Date Esmer Roland MD PCP - General Family Practice 09/21/10 01/29/17 documented as of this encounter
--- OUTSIDE RECORDS SUMMARY | 2022-04-02 12:43 | XMS_ITS | Encounter Summary ---
:1975 Author Organization [place] Address [facility] [place] [address] Care Team Providers Name Role Phone Esmer Roland MD Primary Care Provider [phone] Reason for Visit Reason Onset Date Comments Refill Request 11/06/2011 Carlito Juarez Encounter Details Date Type Department Care Team Description 11/06/2011 Refill [facility] Esmer Roland Refill Request (Ann, [facility] MD Carlito Byrd) [address] [facility], [address] [place] [address] [address] [place] [address] [place], [place] [phone] (Wo rk) [address] [phone] Social History Tobacco Use Types Packs/Day Years Used Date Smoking Tobacco: Former Smokeless Tobacco: Never Comments: Very Occasional Alcohol Use Standard Drinks/Week Comments Yes 0 (1 standard drink = 0.6 oz pure alcoho l) 1 qo weekend Sex Assigned at Date Recorded Not on file documented as of this encounter Miscellaneous Notes Telephone Encounter - Mayela Reese - 11/07/2011 1:29 PM CDT PHQ-9 completed. Pt currently without insurance. She will schedule an appointment soon when she hopefully gets insurance. Mayela Reese RN Telephone Encounter - Esmer Roland MD - 11/07/2011 8:02 AM CDT Over due for PHQ-9, if above 5, then needs appt, will refill for now Telephone Encounter - Mayela Reese - 11/06/2011 11:04 AM CDT Pt stopped in requesting rx refills of medications. Mayela Reese RN documented in this encounter Plan of Treatment Not on filedocumented as of this encounter Visit Diagnoses Diagnosis ANXIETY STATE NOS Anxiety state, unspecified Insomnia Insomnia, unspecified documented in this encounter Care Teams Trust Evaluation Supervisor Relationship Specialty Start Date End Date Esmer Roland MD PCP - General Family Practice 09/21/10 01/29/17 documented as of this encounter
--- OUTSIDE RECORDS SUMMARY | 2022-04-02 12:43 | XMS_ITS | Encounter Summary ---
:1975 Author Organization [place] Address [facility] [place] [address] Care Team Providers Name Role Phone Fawad Roland MD Primary Care Provider [phone] Reason for Visit Reason Comments Colposcopy Encounter Details Date Type Department Care Team Description 12/25/2012 Office Visit [facility] Fawad Roland l Pap smear, Clinic [place] [address] [place] [address] [facility], [address] (ASC-H) (Primary Dx) [place] [address] [id number] Social History Tobacco Use Types Packs/Day Years [...] Reading Time Taken Comments Blood Pressure 120/70 12/25/2012 8:37 AM CDT Pulse 76 12/25/2012 8:37 AM CDT Temperature - - Respiratory Rate 12 12/25/2012 8:37 AM CDT Oxygen Saturation - - Inhaled Oxygen Concentration - - Weight 92.1 kg (203 lb) 12/25/2012 8:37 AM CDT Height 169.5 cm (5' 6.75) 12/25/2012 8:37 AM CDT Body Mass Index 32.03 12/25/2012 8:37 AM CDT documented in this encounter Progress Notes Fawad Roland MD - 12/25/2012 2:21 PM CDT Dariana Valdez is a 37 year old female who presents for initial colposcopy, referred by myself. Pap smear 1 months ago showed: ASC-US with HR HPV , cannot rule out high grade changes. The prior pap showed normal. Past Medical History Diagnosis Date ??? Calculus of kidney ??? Depressive disorder, not elsewhere classified ??? Anxiety state, unspecified ??? Abnormal Pap smear, can't excl hi gd sq intraepithelial lesion (ASC-H) 11/23/12 Family History Problem Relation Age of Onset ??? Family History Negative ??? Heart Mother Previous history of abnormal paps?: No History of cryotherapy (freezing)?: : No History of veneral diseases: : No Do you desire testing for any of these diseases? : No History of genital warts: No Visible warts now?: No Previously treated? If so, how?: No Patient's last menstrual period was 12/03/2012. Type of contraception: oral contraceptive History Smoking status ??? Former Smoker Smokeless tobacco ??? Never Used Comment: Very Occasional History of sexual abuse: No Allergies as of 12/25/2012 - reviewed 12/25/2012 Allergen Reaction Noted ??? Codeine 03/11/2003 PROCEDURE: Before the procedure, it was ensured that the patient was educated regarding the nature of her findings to date, the implications of them, and what was to be done. She has been made aware of the role of HPV, the natural history of infection, ways to minimize her future risk, the effect of HPV on the cervix, and treatment options available should they be indicated. The pathophysiology of the cervix, including a discussion of squamous vs. endometrial cells, and squamous metaplasia have all been reviewed, using illustrations and sketches. The details of the colposcopicprocedure were reviewed, as well as the risks of missed diagnoses, pain, infection and bleeding. Allquestions were answered before proceeding, and informed consent was therefore obtained. Bimanual examination: was performed and was unremarkable. Unenhanced examination of the cervix was abnormal: showing abnormal blood vessels, Pap smear and endocervical sampling not obtained due to: not due Please refer to images section for details! Pap repeated?: No SCJ seen?: yes Endocervical speculum needed?: No ECC done?: Yes Lugol's solution used?: No Satisfactory examination?: yes Vaginal vault: normal to cursory inspection Urethra normal?: yes Labia normal?: yes Perineum normal?: yes Rectum normal?: yes FINDINGS: Please see image Cervix: HPV effect at 12:00 and abnormal vessels at 6-9:00 Procedure: biopsies taken (not including ECC): 4. Procedure summary: Patient tolerated procedure well Assessment: HPV related changes and BRIGID 1 Plan: Specimens labelled and sent to pathology., Will base further treatment on pathology findings.,treatment options discussed with patient, post biopsy instructions given to patient and call to discuss Pathology results documented in this encounter Nursing Notes 12/25/2012 8:40 AM CDT >> CHELSEA MENDOZA Fri Dec 25, 2012 8:41 AM Patient presents with: Colposcopy Initial BP 120/70 Pulse 76 Resp 12 Ht 5' 6.75 (1.695 m) Wt 203 lb (92.08 kg) BMI 32.03 kg/m2 LMP 12/03/2012 ? No Estimated Body mass index is 32.03 kg/(m^2) as calculated from the following: Height as of this encounter: 5' 6.75(1.695 m). Weight as of this encounter: 203 lb(92.08 kg).. Last office visit: 12/02/2012 Chelsea Mendoza CMA ([facility]) documented in this encounter Plan of Treatment Not on filedocumented as of this encounter Procedures Procedure Name Priority Date/Time Associated Diagnosis Comme nts COLP Routine 12/25/2012 2:23 Abnormal Pap smear, CERVIX/UPPER VAGINA PM CDT can't excl hi gd sq W BX intraepithelial lesion CERVIX/ENDOCERV (ASC-H) CURETT HCG QUALITATIVE Routine 12/25/2012 8:31 Results f or this URINE AM CDT procedure are i n the results section. SURGICAL PATHOLOGY Routine 12/25/2012 8:00 Result s for this EXAM AM CDT procedure are i n the results section. documented in this encounter Results HCG qualitative, urine (12/25/2012 8:31 AM CDT) Analysis Performed At Patho logist Time Signature HCG Qual Urine Negative NEG [facility] Specimen Anatomical Collection Method Collection Time Receive d Time (Source) Location / / Volume Laterality Urine specimen 12/25/2012 8:31 AM 013 8:33 (specimen) CDT AM CDT Fawad Roland MD LAB - URINE ORDERABLES Performing Organization Address City/State/ZIP Code Phon e Number [facility] [place], [place] [id number] [facility] [place], [place] [id number] LAB Surgical pathology exam (12/25/2012 8:00 AM CDT) Component Value Ref Test Analysis Performed At [facility] gist Range Method Time Signature Copath Report Patient Name: DARIANA VALDEZ MR#: [id number] Specimen #: [id number] Collected: 12/25/2012 Received: 12/25/2012 Reported: 12/28/2012 15:59 Ordering Phy(s): FAWAD ROLAND SPECIMEN(S): A: Cervical biopsy, 12 o'clock B: Cervical biopsy, 9 o'clock C: Cervical biopsy, 3 o'clock D: Cervical biopsy, 6 o'clock E: Endocervical curettings FINAL DIAGNOSIS: A. ??Cervix, at 12:00, biopsy - ? 1. ??Ectocervix, transformation zone and endocervix p resent. ? 2. ??High grade squamous intraepithelial lesion (BRIGID- 2/moderate dysplasia). B. ??Cervix, at 9:00, biopsy - ? 1. ??Ectocervix, transformation zone and endocervix p resent. ? 2. ??Negative for viral changes, dysplasia and malign juni. C. ??Cervix, at 3:00, biopsy - ? 1. ??Ectocervix, transformation zone and endocervix p resent. ? 2. ??Negative for viral changes, dysplasia and malign juni. D. ??Cervix, at 6:00, biopsy - ? 1. ??Transformation zone and endocervix present. ? 2. ??Negative for viral changes, dysplasia and malign juni. E. ??Endocervix, curettings - ? 1. ??Endocervical tissue present. ? 2. ??Negative for viral changes, dysplasia and malign juni. COMMENT: Previous Pap. Smear ([id number]) was signed as atypical squam ous cells, cannot rule out high grade squamous intraepithelial lesion. ??The Pap. Smear was reviewed and the abnormalities were confirmed. Electronically signed out by: Jame Jolly M.D. CLINICAL HISTORY: Abnormal Pap. Smear. GROSS: A. ??The specimen, labeled cervical biopsy at 12:00, consi sts of a fragment of sanchez to light brown soft tissue measuring 0.3 cm in diameter. The specimen is bisected and submitted in its entirety in o ne cassette. The specimen also includes fragments of translucent and hem orrhagic mucoid material. ??The specimen is submitted in its entirety in one cassette. B. ??The specimen, labeled cervical biopsy at 9:00, consis ts of a fragment of sanchez to light brown soft tissue measuring 0.2 cm in diameter. The specimen also includes fragments of hemorrhagic and tra nslucent mucoid tissue. ??The solid component is bisected. ??The spec imen is submitted in its entirety in one cassette. C. ??The specimen, labeled cervical biopsy at 3:00, consis ts of a single fragment of soft white tissue measuring 0.3 cm in rhoda meter. ??The specimen is bisected and submitted in its entirety in one ca ssette. D. ??The specimen, labeled cervical biopsy at 6:00, consis ts of a fragment of white to brown mucoid tissue measuring 0.3 cm in diameter. The specimen is submitted in its entirety. E. ??The specimen, labeled endocervical curettings, consis ts of fragments of hemorrhagic mucoid tissue measuring 1 cm in agg regate diameter. ??The specimen is filtered, wrapped in filter catarina r and submitted in its entirety in one cassette. MGP/kd MICROSCOPIC: A through E. ??Microscopic examination was performed. MGP/kd 12-28-12 TESTING LAB LOCATION: [facility] [address] [address] [place], [place] ??[phone] COLLECTION SITE: Client: [facility] Location: [facility] (R) Specimen Anatomical Collection Method Collection Time Receive d Time (Source) Location / / Volume Laterality 12/25/2012 8:00 AM 3 3:13 CDT PM CDT Fawad Roland MD LAB - [place] Performing Organization Address City/State/ZIP Code Phon e Number [place] documented in this encounter Visit Diagnoses Diagnosis Abnormal Pap smear, can't excl hi gd sq intraepithelial lesion (ASC-H) - Primary Papanicolaou smear of cervix with atypic al squamous cells cannot exclude high grade squamous intraepithelial lesion (ASC-H) documented in this encounter Care Teams Broaching Machine Operator Relationship Specialty Start Date End Date Fawad Roland MD PCP - General Family Practice 09/21/10 01/29/17 documented as of this encounter
--- OUTSIDE RECORDS SUMMARY | 2022-04-02 12:43 | XMS_ITS | Encounter Summary ---
:1975 Author Organization [place] Address [address] [place] [address]. [place] [address] Care Team Providers Name Role Phone Esmer Roland MD Primary Care Provider [phone] Reason for Visit Reason Onset Date Comments Refill Request 08/06/2011 Zolpidem Encounter Details Date Type Department Care Team Description 08/06/2011 Refill [facility] Esmer Roland Refill Request Clinic Sara Byrd MD (Zolpidem) [address] [facility], [address] [place] [address] [address] [place] [address] [place], [place] [phone] (Wo rk) [address] [phone] Social History Tobacco Use Types Packs/Day Years Used Date Smoking Tobacco: Former Smokeless Tobacco: Never Comments: Very Occasional Alcohol Use Standard Drinks/Week Comments Yes 0 (1 standard drink = 0.6 oz pure alcoho l) 1 qo weekend Sex Assigned at Date Recorded Not on file documented as of this encounter Miscellaneous Notes Telephone Encounter - Ernestine Salinas - 08/06/2011 1:02 PM CST See below, not pso, routed, need to fax Ernestine Salinas RN, BSN Message handled by Nurse Triage. [employer] SALES ENGINEER Telephone Encounter - Kristine Alston - 08/06/2011 12:27 PM CST Last Fill Date: 05/06/11 Last Fill Quantity: 90 Last Office Visit: 01/21/11 Kristine Alston, Pharmacy Float Angiographer [facility] Des Carreon [email or web address] [employer] SALES ENGINEER documented in this encounter Plan of Treatment Not on filedocumented as of this encounter Visit Diagnoses Diagnosis Insomnia Insomnia, unspecified documented in this encounter Care Teams Weather Analyst Relationship Specialty Start Date End Date Esmer Roland MD PCP - General Family Practice 09/21/10 01/29/17 documented as of this encounter
--- OUTSIDE RECORDS SUMMARY | 2022-04-02 12:43 | XMS_ITS | Encounter Summary ---
:1975 Author Organization [place] Address [address] [facility] [place] [address] Care Team Providers Name Role Phone Esmer Roland MD Primary Care Provider [phone] Reason for Visit Reason Comments Recheck Medication Blood Draw Patient requesting labs to mouna glover drawn. Patient has thyroid concerns. Abnormal Bleeding Problem Irregular periods. Patient w as bleeding most of December. Alot of vaginal pressure. Constipation Encounter Details Date Type Department Care Team Description 03/05/2012 Office Visit [facility] Esmer Roland uterine bleeding (Primary Dx); Clinic Sara Byrd MD Insomnia; [place] [address] [facility], [address] [place] [address] [place], [place] [phone] (Wo rk) [address] [phone] Social History Tobacco Use Types Packs/Day Years [...] Reading Time Taken Comments Blood Pressure 112/70 03/05/2012 9:29 AM CDT Pulse 65 03/05/2012 9:29 AM CDT Temperature 36.9 ??C (98.5 ??F) 03/05/2012 9:29 AM CDT Respiratory Rate 16 03/05/2012 9:29 AM CDT Oxygen Saturation 98% 03/05/2012 9:29 AM CDT Inhaled Oxygen Concentration - - Weight 90.9 kg (200 lb 6.4 oz) 03/05/2012 9:29 AM CDT Height 170.2 cm (5' 7) 03/05/2012 9:29 AM CDT Body Mass Index 31.39 03/05/2012 9:29 AM CDT documented in this encounter Progress Notes Esmer Roland MD - 03/05/2012 9:41 AM CDT SUBJECTIVE: Dariana Osman is a 36 year old female who presents to clinic today for the following health issues: Heavy period, back pain, and irregular periods, on ortho tricyclic, not working since break through bleeding all the time. Unable to loose weight, would like thyroid checked, feels tired all the time, eating better. Depression Follow-Up ?? Status since last visit: Improved ?? See PHQ-9 for current symptoms. ?? Other associated symptoms:None ?? Complicating factors: Significant life event: Yes- Employment Current substance abuse: None Anxiety / Panic / Manic symptoms: No ?? Patient education: hx of seeing specialist but not now, doing very well PHQ-9 Czech PHQ-9 Any Language ?? Amount of exercise or daily activities, outside of work: walking every day. ?? Problems taking medications regularly No ?? Medication side effects: No Other concerns to address: 1. Is patient on the right BC. Staff Signature:Melissa Jansen CMA ROS: C: NEGATIVE for fever, chills, change in weight E/M: NEGATIVE for ear, mouth and throat problems R: NEGATIVE for significant cough or SOB CV: NEGATIVE for chest pain, palpitations or peripheral edema Problem list, Medication list, Allergies, and Medical/Social/Surgical histories reviewed in [facility] andupdated as appropriate. Labs reviewed in [facility] OBJECTIVE: BP 112/70 Pulse 65 Temp(Src) 98.5 ??F (36.9 ??C) (Oral) Resp 16 Ht 5' 7 (1.702 m) Wt 200 lb 6.4 oz (90.901 kg) BMI 31.39 kg/m2 SpO2 98% LMP 03/04/2012 Body mass index is 31.39 kg/(m^2). GENERAL:: healthy, alert, well nourished, well hydrated, no [...] no murmur, no click or rub - No edema ASSESSMENT/PLAN: Abnormal uterine bleeding (primary encounter diagnosis) Comment: suspect due to OCPs, will change types, and if not improving, will need pelvic u/s pt without insurance and not sure she wants to get that u/s done at this time Plan: norgestimate-ethinyl estradiol (ORTHO-CYCLEN, SPRINTEC) 0.25-35 MG-MCG tablet, DISCONTINUED: norgestimate-ethinyl estradiol (ORTHO-CYCLEN, SPRINTEC) 0.25-35 MG-MCG tablet Insomnia Comment: works well Plan: zolpidem (AMBIEN) 5 MG tablet, DEPRESSION ACTION PLAN (DAP), TSH with free T4 reflex, Basic metabolic panel Obesity Comment: discussed diet Plan: TSH with free T4 reflex, Basic metabolic panel, Lipid Profile with reflex to direct LDL Risks, benefits and alternatives of treatments discussed. Plan agreed on. Next Provider visit: Follow up in 3 months. Esmer Roland documented in this encounter Nursing Notes 03/05/2012 9:30 AM CDT >> MELISSA JANSEN [facility] Mar 05, 2012 9:43 AM Patient presents with: Recheck Medication Blood Draw - Patient requesting labs to be drawn. Patient has thyroid concerns. Abnormal Bleeding Problem - Irregular periods. Patient was bleeding most of December. Alot of vaginal pressure. Constipation Initial BP 112/70 Pulse 65 Temp(Src) 98.5 ??F (36.9 ??C) (Oral) Resp 16 Ht 5' 7 (1.702 m) Wt 200 lb 6.4 oz (90.901 kg) BMI 31.39 kg/m2 SpO2 98% LMP 03/04/2012 Estimated Body mass indexis 31.39 kg/(m^2) as calculated from the following: Height as of this encounter: 5' 7(1.702 m). Weight as of this encounter: 200 lb 6.4 oz(90.901 kg). BP completed using cuff size large right arm. Melissa Jansen CMA documented in this encounter Plan of Treatment Not on filedocumented as of this encounter Procedures Procedure Name Priority Date/Time Associated Diagnosis Comme nts TSH WITH FREE T4 Routine 03/05/2012 10:06 AM Insomnia Results for this REFLEX CDT Obesity procedure are i n the results section. LIPID REFLEX TO Routine 03/05/2012 10:06 AM Obesity Resul ts for this DIRECT LDL PANEL CDT procedure a re in the results section. BASIC METABOLIC Routine 03/05/2012 10:06 AM Insomnia Results for this PANEL CDT Obesity procedure are i n the results section. documented in this encounter Results (ABNORMAL) Lipid Profile with reflex to direct LDL (03/05/2012 10:06 AM CDT) athologist Signature Cholesterol 184 0 - 200 [facility] mg/dL CLINIC [facility] Comment: LDL Cholesterol is the primary guide to therapy. The NCEP recommends further evaluation of: patients with cholesterol greater than 200 mg/dL if additional risk facto rs are present, cholesterol greater than 240 mg/dL, triglycerides greater than 1 50 mg/dL, or HDL less than 40 mg/dL. Triglycerides 135 0 - 150 mg/dL [facility] HDL Cholesterol 46 (L) 50 - 110 mg/dL [facility] LDL Cholesterol Calculated 111 0 - 129 mg/dL [facility] Comment: LDL Cholesterol is the primary guide to therapy: LDL-cholesterol goal in high risk patients is <100 mg/dL and in very high risk patients is <70 mg/dL. VLDL-Cholesterol 27 0 - 30 mg/dL [facility] Cholesterol/HDL Ratio 4.0 0.0 - 5.0 [facility] Specimen Anatomical Collection Method Collection Time Receive d Time (Source) Location / / Volume Laterality Blood specimen 03/05/2012 10:06 2 (specimen) AM CDT 10:08 AM CDT Esmer Roland MD LAB - BLOOD ORDERABLES Performing Organization Address [facility]/ZIP Code Phon e Number [address] [address] [phone] [facility] Basic metabolic panel (03/05/2012 10:06 AM CDT) P athologist Signature Sodium 141 133 - 144 [facility] mmol/L [facility] Potassium 4.8 3.4 - 5.3 [facility] mmol/L [facility] Chloride 106 94 - 109 [facility] mmol/L [facility] Carbon Dioxide 24 20 - 32 [facility] mmol/L [facility] Anion Gap 11 6 - 17 [place] mmol/L [facility] Glucose 83 60 - 99 [place] mg/dL [facility] Urea Nitrogen 11 5 - 24 [facility] mg/dL [facility] Creatinine 0.90 0.52 - [facility] 1.04 mg/dL [facility] GFR Estimate 72 >60 [place] mL/min/1.7 [facility] m2 GFR Estimate If 87 >60 [facility] Black mL/min/1.7 [facility] m2 Calcium 9.4 8.5 - 10.4 [facility] mg/dL [facility] Specimen Anatomical Collection Method Collection Time Receive d Time (Source) Location / / Volume Laterality Blood specimen 03/05/2012 10: 2 (specimen) AM CDT 10:08 AM CDT Esmer Roland MD LAB - BLOOD ORDERABLES Performing Organization Address City/[facility]/ZIP Code Phon e Number [address] [address] [phone] [facility] TSH with free T4 reflex (03/05/2012 10:06 AM CDT) athologist Signature TSH 1.21 0.4 - 5.0 [facility] [place] mU/L [facility] Specimen Anatomical Collection Method Collection Time Receive d Time (Source) Location / / Volume Laterality Blood specimen 03/05/2012 10: 2 (specimen) AM CDT 10:08 AM CDT Esmer Roland MD LAB - BLOOD ORDERABLES Performing Organization Address City/State/ZIP Code Phon e Number [facility] [address] [place] [address] [facility] documented in this encounter Visit Diagnoses Diagnosis Abnormal uterine bleeding - Primary Unspecified disorder of menstruation and other abnormal bleeding from female genital tract Insomnia Insomnia, unspecified Obesity Obesity, unspecified documented in this encounter Care Teams Revenue Liaison Relationship Specialty Start Date End Date Esmer Roland MD PCP - General Family Practice 09/21/10 01/29/17 documented as of this encounter
--- OUTSIDE RECORDS SUMMARY | 2022-04-02 12:43 | XMS_ITS | Encounter Summary ---
:1975 Author Organization [place] Address [address] [place] [address] Care Team Providers Name Role Phone Esmer Roland MD Primary Care Provider Encounter Details Date Type Department Care Team Description 12/30/2010 Emergency room [facility] Results EMERGENCY [facility] MELINA ROMERO [address] [place], [place] [address] Social History Tobacco Use Types Packs/Day Years Used Date Smoking Tobacco: Former Smokeless Tobacco: Never Comments: Quit September last year. Alcohol Use Standard Drinks/Week Comments Yes 0 (1 standard drink = 0.6 oz pure alcoho l) 1 qo week Sex Assigned at Date Recorded Not on file documented as of this encounter Progress Notes Interface, Information Systems Security Specialist - 01/01/2011 8:56 PM CDT FINAL Chief Complaint - History of Present Illness - MD Time:: 13:39 - Chief Complaint: chest pain and palpitations - HPI: Dariana Valdez is a 35 y. o. female who presents to the ED for evaluation of chest pain and palpitations. The patient states she has been having palpitations which she describes as a slow heart rate with skipped beats for the last week intermittently but much more frequently for the last two days. She also notes some associated constant chest pain which she developed yesterday afternoon she describes at pressure in her mid chest with some associated shortness of breath, dizziness, weakness and fatigue. She explains she has been stressed lately. She currently rates her chest pressure as 3-4/10 in severity and notes it worse with deep breath and she feels like she can't get a deep breath. She notes she has been drinking less coffee lately. The patient denies fever, chills, nausea, vomiting, falls, injury to the area, heavy lifting, diaphoresis, suicidal ideation, leg pain or swelling, numbness, tingling or focal weakness. Cardiac/PE/DVT Risk Factors: The patient has no history of hypertension, hyperlipidemia or diabetes but smokes socially. She reports no family history of heart disease but notes her mother has tachycardia occasionally. The patient denies any personal or familial history of PE, DVT, or clotting disorder as well as recent travel, surgery, or other immobilizations. Medications - Medications: Trazadone Seroquel Ortho tricycline Allergies Codeine; Other IVP Dye; Hives Past Medical/Family History - H is positive for: anxiety/depression - Family History: No family history of heart disease. Mother has occasional tachycardia. Social History - Is positive for Alcohol use, social smoking - Is negative for Illicit drug use Review of Systems - - All other systems negative except - General Negative for fever, Negative for chills, Positive for malaise/fatigue, Negative for diaphoresis, Positive for weakness - HENT Positive for congestion - Cardiovascular Positive for chest pain, Positive for palpitations, Negative for leg swelling - Respiratory Positive for shortness of breath - Gastrointestinal Negative for nausea, Negative for vomiting, Negative for abdominal pain - Musculoskeletal Negative for back pain - Neurological Negative for tingling, Negative for sensory change, Negative for focal weakness Vital Signs-Triage Temp F: 98.2 degrees F Temp C: 36.7 degrees C Temp site: Temporal Artery Heart Rate: 97 bpm Resp Rate: 22 Pulse Oximetry: 96 Physical Exam - Vital Signs Blood pressure right: 157/112 Blood pressure left: 124/88 - Constitutional Pleasant and appropriate. - HENT right external ear normal, left external ear normal, oropharynx clear and moist, Congested. - Eyes conjunctiva normal, Pupils round and reactive. - Neck no meningismus present, no cervical adenopathy present - Cardiovascular normal rate, regular rhythm - Pul/Chest Wall breath sounds normal, Chest is tender to palpation. - Abdominal no distention present, no tenderness present, no rebound present, no guarding present - Musculoskeletal no deformity present - Neurologic Alert, oriented, Normal gross motor function. - Skin non-diaphoretic, no rash present, normal color present, No petechiae - Psychiatric Tearful. - Heme/Lymph no lymphadenopathy Laboratory information - -: CBC: Monos 14.9 high, o/w WNL (WBC 5.1, HGB 12.9, Plts 230) BMP: Glucose 107 high, Calcium 8.4 low, o/w WNL (Creatinine 0.77) d-Dimer: 0.4 INR: 0.91 Troponin: <0.012 Diagnostic information - -: ECG: Rate 92 bpm. AZ interval 112. QRS duration 82. QT/QTc 332/410. P-R-T axes 42 69 -36. Sinus rhythm with sinus arrhythmia with premature ventricular complexes or fusion complexes. Nonspecific ST segments. Abnormal ECG. Imaging: CXR: Within normal limits. ED Course: Interventions/Consultations/Procedures - -: Interventions: NS 1L IV Ativan 0.5 mg IV ED Course: IV inserted and blood drawn. The patient was placed on continuous cardiac and blood pressure monitoring and pulse oximetry. The patient was sent for a CXR while in the emergency department, findings above. The patient reported good relief of symptoms after the above interventions. Rechecked the patient, findings and plan explained to the patient. Patient discharged home, status improved, with instructions regarding supportive care, medications, and reasons to return as well as the importance of close follow-up were reviewed. Medical Decision Making - -: The patient complains of fatigue, has a history of depression, says she has been under increased stress but says denies suicidal ideation. I considered in the differential the possibility of costochondritis, chest wall pain, pleurisy. ACS would be unlikely in a patient with constant pain over the last 24 hours and her troponin is normal. There are also no signs of a PE with her d-dimer being normal. The patient felt better with Ativan here and was discharged with one more dose to take at home. She's instructed to followup as an outpatient with her PMD and return if any problems. Diagnosis - -: 1. Palpitations. 2. Chest pain. 3. Fatigue. 4. Increased stress with history of depression. Disposition Plan - -: Use Ativan x1 at home, rest, return if problems, followup with PMD in 2 days. Scribe Disclosure I, Jose Mercado, am serving as a scribe to document services personally performed by Dr. Farley, based on my observations and the provider's statements to me. Electronically signed on 01/01/2011 20:55 by JAZMIN FARLEY MD As dictated by JOSE MERCADO MT: Name: DARIANA VALDEZ Account: [id number] : 1975 Visit Date: 12/30/2010 Document: [id number] documented in this encounter Plan of Treatment Not on filedocumented as of this encounter Visit Diagnoses Not on filedocumented in this encounter Care Teams Traffic Maintenance Supervisor Relationship Specialty Start Date End Date Esmer Roland MD PCP - General Family Practice 09/21/10 01/29/17 documented as of this encounter
--- OUTSIDE RECORDS SUMMARY | 2022-04-02 12:43 | XMS_ITS | Encounter Summary ---
:1975 Author Organization [place] Address [facility] [place] [address] Care Team Providers Name Role Phone Esmer Roland MD Primary Care Provider [phone] Reason for Visit Reason Onset Date Comments Refill Request 03/10/2012 [place] Encounter Details Date Type Department Care Team Description 03/10/2012 Refill [facility] Esmer Rloand Refill Request ([place]) Clinic Sara Byrd MD [address] [place] [address], [address] [place] [address] [address] [place] [address] [place], [place] [phone] (Wo rk) [address] [phone] Social History Tobacco Use Types Packs/Day Years Used Date Smoking Tobacco: Former Smokeless Tobacco: Never Comments: Very Occasional Alcohol Use Standard Drinks/Week Comments Yes 0 (1 standard drink = 0.6 oz pure 2-3 ti mes a week(1 glass of wine) 1 alcohol) qo weekend Sex Assigned at Date Recorded Not on file documented as of this encounter Miscellaneous Notes Telephone Encounter - Jose Castle - 03/10/2012 2:15 PM CDT Last Fill Date 11/07/11 Qty 90 Last Office Visit 03/05/12 Thank You Jose Castle [facility] Float Tech documented in this encounter Plan of Treatment Not on filedocumented as of this encounter Visit Diagnoses Diagnosis Insomnia - Primary Insomnia, unspecified documented in this encounter Care Teams Contract Clerk Relationship Specialty Start Date End Date Esmer Roland MD PCP - General Family Practice 09/21/10 01/29/17 documented as of this encounter
--- OUTSIDE RECORDS SUMMARY | 2022-04-02 12:43 | XMS_ITS | Encounter Summary ---
:1975 Author Organization [place] Address [address] [place] [address] Care Team Providers Name Role Phone Esmer Roland MD Primary Care Provider [phone] Reason for Visit Reason Comments Refill Request Encounter Details Date Type Department Care Team Description 01/21/2011 Office Visit [facility] Esmer Roland ANXIETY STATE NOS (Primary Dx); Clinic Sara Byrd MD Palpitations; [place] [address] [facility], [address] [place] [address] [place], [place] [phone] (Wo rk) [address] [phone] Social History Tobacco Use Types Packs/Day Years Used Date Smoking Tobacco: Former Smokeless Tobacco: Never Comments: Very Occasional Alcohol Use Standard Drinks/Week Comments Yes 0 (1 standard drink = 0.6 oz pure alcoho l) 1 qo weekend Sex Assigned at Date Recorded Not on file documented as of this encounter Last Filed Vital Signs Vital Sign Reading Time Taken Comments Blood Pressure 110/70 01/21/2011 7:35 AM CDT Pulse 60 01/21/2011 7:35 AM CDT Temperature 37 ??C (98.6 ??F) 01/21/2011 7:35 AM CDT Respiratory Rate 16 01/21/2011 7:35 AM CDT Oxygen Saturation 97% 01/21/2011 7:35 AM CDT Inhaled Oxygen Concentration - - Weight 80.6 kg (177 lb 12.8 oz) 01/21/2011 7:35 AM CDT Height - - Body Mass Index 27.85 12/31/2010 10:57 AM CDT documented in this encounter Progress Notes Meme Rolandlupillo Lang[place]n - 01/21/2011 12:13 PM CDT Dariana Osman is a 35 year old female who presents due to chest pain and anxiety. Improved now on medications, not even needing her ativan over the week- end, paxil seems to be kicking in. Pleasereview chart, She had an normal ECG with palpitations and normal labs. No fevers, chills, nausea, orvomiting. She is had some chest congestion but chest x-ray is negative. She was given ativan which helped relieve her symptoms. She is seeing a counselor every 2 weeks. She denies depression. ROS:4 point ROS including Respiratory, CV, GI and , other than that noted in the HPI, is negative Past Medical History Diagnosis Date ??? Calculus of kidney ??? Depressive disorder, not elsewhere classified ??? Anxiety state, unspecified Current outpatient prescriptions Medication Sig ??? lorazepam (ATIVAN) 1 MG tablet Take 0.5-1 tablets by mouth every 8 hours as needed for anxiety. Do not operate a vehicle after taking this medication ??? zolpidem (AMBIEN) 5 MG tablet Take 1 tablet by mouth nightly as needed. ??? paroxetine (PAXIL) 20 MG tablet Take 1 tablet by mouth At Bedtime. ??? paroxetine (PAXIL) 10 MG tablet Take 1 tablet by mouth At Bedtime. Take 1 tablet by mouth At Bedtime for 1 week, then increase to 2 tablets daily. ??? Norgestim-Eth Estrad Triphasic (ORTHO TRI-CYCLEN, 28,) 0.18/0.215/0.25 MG-35 MCG TABS Take 1 tablet by mouth daily. ??? TRAZodone (DESYREL) 50 MG tablet Take by mouth. 1/2 tab OBJECTIVE: BP 110/70 Pulse 60 Temp(Src) 98.6 ??F (37 ??C) (Oral) Resp 16 Wt 177 lb 12.8 oz (80.65 kg) SpO2 97% LMP 12/27/2010 Exam: GENERAL APPEARANCE: healthy, alert and no distress EYES: EOMI, PERRL HENT: ear canals and TM's normal and nose and mouth without ulcers or lesions NECK: no adenopathy, no asymmetry, masses, or scars and thyroid normal to palpation RESP: lungs clear to auscultation - no rales, rhonchi or wheezes CV: regular rates and rhythm, normal S1 S2, no S3 or S4 and no murmur, click or rub MS: extremities normal- no gross deformities noted, no evidence of inflammation in joints, FROM in all extremities. PSYCH: mentation appears normal and not flat ASSESSMENT/PLAN: 300.00 ANXIETY STATE NOS Comment: moderate, Improved! Plan: lorazepam (ATIVAN) 1 MG tablet, paroxetine (PAXIL) 10 MG tablet 785.1 Palpitations Comment: related to anxiety, PACs on EKG, now resolved on medications Plan:cont paroxetine (PAXIL) 10 MG tablet documented in this encounter Nursing Notes 01/21/2011 7:45 AM CDT >> MELISSA JANSEN Mon Jan 21, 2011 7:40 AM Patient presents with: Refill Request Initial BP 110/70 Pulse 60 Temp(Src) 98.6 ??F (37 ??C) (Oral) Resp 16 Wt 177 lb 12.8 oz (80.65 kg) SpO2 97% LMP 12/27/2010 Estimated Body mass index is 27.85 kg/(m^2) as calculated from thefollowing: Height as of 12/31/10: 5' 7(1.702 m). Weight as of this encounter: 177 lb 12.8 oz(80.65 kg). BP completed using cuff size large right arm. Melissa Jansen CMA documented in this encounter Plan of Treatment Not on filedocumented as of this encounter Visit Diagnoses Diagnosis ANXIETY STATE NOS - Primary Anxiety state, unspecified Palpitations Insomnia Insomnia, unspecified documented in this encounter Care Teams Program Manager Relationship Specialty Start Date End Date Esmer Roland MD PCP - General Family Practice 09/21/10 01/29/17 documented as of this encounter
--- OUTSIDE RECORDS SUMMARY | 2022-04-02 12:43 | XMS_ITS | Encounter Summary ---
:1975 Author Organization [place] Address [address] [place] [address]. [place] [address] Care Team Providers Name Role Phone Esmer Roland MD Primary Care Provider [phone] Reason for Visit Reason Onset Date Comments Refill Request 12/17/2011 b/c Encounter Details Date Type Department Care Team Description 12/17/[address] [facility] Esmer Roland Refill Request (b/c) [place] [address] [place] [address] SONJA BENAVIDEZ [id number] [phone] Social History Tobacco Use Types Packs/Day Years Used Date Smoking Tobacco: Former Smokeless Tobacco: Never Comments: Very Occasional Alcohol Use Standard Drinks/Week Comments Yes 0 (1 standard drink = 0.6 oz pure alcoho l) 1 qo weekend Sex Assigned at Date Recorded Not on file documented as of this encounter Miscellaneous Notes Telephone Encounter - Anni Garcia - 12/18/2011 9:07 AM CDT Please advise. Last pap was done on 11/09/2010. Kaitlin Hough [facility] Telephone Encounter - Deidre Alas - 12/17/2011 4:53 PM CDT LAST FILL DATE: 09/24/11 QTY: 84 Last office appt:02/14/11 Camilo Hammonds [facility] documented in this encounter Plan of Treatment Not on filedocumented as of this encounter Visit Diagnoses Diagnosis Abnormal uterine bleeding - Primary Unspecified disorder of menstruation and other abnormal bleeding from female genital tract documented in this encounter Care Teams Shore Worker Relationship Specialty Start Date End Date Esmer Roland MD PCP - General Family Practice 09/21/10 01/29/17 documented as of this encounter
--- OUTSIDE RECORDS SUMMARY | 2022-04-02 12:43 | XMS_ITS | Encounter Summary ---
:1975 Author Organization [place] Address [facility] [place] [address] Care Team Providers Name Role Phone Esmer Roland MD Primary Care Provider [phone] Reason for Visit Reason Onset Date Comments Forms 04/18/2011 FMLA recert Encounter Details Date Type Department Care Team Description 04/18/2011 Telephone [facility] Esmer Roland Forms ( FMLA recert) Clinic [place] Byrd [place] [id number] [place] [address], [address] [place] [address] [address] [place] [address] [place], [place] [phone] (Wo rk) [phone] Social History Tobacco Use Types Packs/Day Years Used Date Smoking Tobacco: Former Smokeless Tobacco: Never Comments: Very Occasional Alcohol Use Standard Drinks/Week Comments Yes 0 (1 standard drink = 0.6 oz pure alcoho l) 1 qo weekend Sex Assigned at Date Recorded Not on file documented as of this encounter Miscellaneous Notes Telephone Encounter - Dariana Osman - 04/18/2011 1:24 PM CST I placed FMLA paper work on your desk. FMLA dept is auditing a few dates and would like you to confirm the dates listed were medically necessary and sign. On the last page of the packet, I have edited to allow 1 -2 days a month for possible JEYSON time. I really hope the time is not needed! Dariana CREW DECK HAND documented in this encounter Plan of Treatment Not on filedocumented as of this encounter Visit Diagnoses Not on filedocumented in this encounter Care Teams Tier Truck Driver Relationship Specialty Start Date End Date Esmer Roland MD PCP - General Family Practice 09/21/10 01/29/17 documented as of this encounter
--- OUTSIDE RECORDS SUMMARY | 2022-04-02 12:43 | XMS_ITS | Encounter Summary ---
:1975 Author Organization [place] Address [address] [place] [address]. [place] [address] Care Team Providers Name Role Phone Esmer Roland MD Primary Care Provider Reason for Visit Reason Onset Date Comments Refill Request 11/05/2012 Phentermine 37.5mg Encounter Details Date Type Department Care Team Description 11/05/2012 Refill [facility] Esmer Roland Refill Request Clinic Sara Byrd MD (Phentermine 37.5mg) [address] [place] [address] [place], [place] [phone] (Wo rk) [address] [phone] Social History Tobacco Use Types Packs/Day Years Used Date Smoking Tobacco: Former Smokeless Tobacco: Never Comments: Very Occasional Alcohol Use Standard Drinks/Week Comments Yes 0 (1 standard drink = 0.6 oz pure 2-3 ti mes a week(1 glass of wine) 1 alcohol) qo weekend Sex Assigned at Date Recorded Not on file documented as of this encounter Miscellaneous Notes Telephone Encounter - Andreea Rodriguez - 11/06/2012 10:43 AM CDT Faxed Andreea Rodriguez/[place] Telephone Encounter - Mayela Reese - 11/05/2012 1:16 PM CDT Med: Phentermine 37.5mg Last OV: 08/07/2012 Reason: Anxiety Last filled: 09/22/2012 Patient had vital sign done today: Wt Readings from Last 2 Encounters: 11/05/12 199 lb 8 oz (90.493 kg) 09/22/12 212 lb (96.163 kg) BP: 128/86 Pulse: 88 Mayela Reese RN documented in this encounter Plan of Treatment Not on filedocumented as of this encounter Visit Diagnoses Diagnosis Obesity - Primary Obesity, unspecified documented in this encounter Care Teams Extender Relationship Specialty Start Date End Date Esmer Roland MD PCP - General Family Practice 09/21/10 documented as of this encounter
--- OUTSIDE RECORDS SUMMARY | 2022-04-02 12:43 | XMS_ITS | Encounter Summary ---
:1975 Author Organization [place] Address [address] [place] [address]. [place] [address] Care Team Providers Name Role Phone Esmer Roland MD Primary Care Provider [phone] Reason for Visit Reason Onset Date Comments Refill Request 02/16/2011 LORAZEPAM 1MG Encounter Details Date Type Department Care Team Description 02/16/2011 Refill [facility] Esmer Roland Refill Request Clinic Sara Byrd MD (LORAZEPAM 1MG) [address] [place] [address] [address] [place] [address] [place], [place] [phone] (Wo rk) [phone] [phone] Social History Tobacco Use Types Packs/Day Years Used Date Smoking Tobacco: Former Smokeless Tobacco: Never Comments: Very Occasional Alcohol Use Standard Drinks/Week Comments Yes 0 (1 standard drink = 0.6 oz pure alcoho l) 1 qo weekend Sex Assigned at Date Recorded Not on file documented as of this encounter Miscellaneous Notes Telephone Encounter - Kristine Bermudez - 02/16/2011 11:35 AM CDT Last filled 01/21/11 Qty 30 Kristine [facility] RX documented in this encounter Plan of Treatment Not on filedocumented as of this encounter Visit Diagnoses Diagnosis ANXIETY STATE NOS Anxiety state, unspecified documented in this encounter Care Teams Fish Culturist Relationship Specialty Start Date End Date Esmer Roland MD PCP - General Family Practice 09/21/10 01/29/17 documented as of this encounter
--- OUTSIDE RECORDS SUMMARY | 2022-04-02 12:43 | XMS_ITS | Encounter Summary ---
:1975 Author Organization [place] Address [facility] [place] [address] Care Team Providers Name Role Phone Esmer Roland MD Primary Care Provider [phone] Reason for Visit Reason Onset Date Comments Refill Request 04/06/2012 Xanax Encounter Details Date Type Department Care Team Description 04/06/[address] [facility] Esmer Roland Refill Request (Xanax) Clinic Sara Byrd MD [address] [place] [address], [address] [place] [address] [address] [place] [address] [place], [place] [phone] (Wo rk) [phone] [phone] Social History Tobacco Use Types Packs/Day Years [...] Notes Telephone Encounter - Mayela Reese - 04/06/2012 11:22 AM CDT Faxed. Mayela Reese RN Telephone Encounter - Esmer Roland MD - 04/06/2012 9:44 AM CDT printed Telephone Encounter - HughRosyMayela - 04/06/2012 9:32 AM CDT Pt requesting rx refill of Xanax. Having a really hard time with Anxiety. Mayela Reese RN documented in this encounter Plan of Treatment Not on filedocumented as of this encounter Visit Diagnoses Diagnosis Insomnia - Primary Insomnia, unspecified documented in this encounter Care Teams Fur Trapper Relationship Specialty Start Date End Date Esmer Roland MD PCP - General Family Practice 09/21/10 01/29/17 documented as of this encounter
--- OUTSIDE RECORDS SUMMARY | 2022-04-02 12:43 | XMS_ITS | Encounter Summary ---
:1975 Author Organization [place] Address [address] [place] [address] Care Team Providers Name Role Phone Esmer Roland MD Primary Care Provider [phone] Reason for Visit Reason Comments Contraception Depo injection Encounter Details Date Type Department Care Team Description 04/19/2011 [facility] ion (Depo Health/Nurse Visit Clinic [facility]) [facility], [address] [place] [address] Social History Tobacco Use Types [...] Sign Reading Time Taken Comments Blood Pressure 143/76 04/19/2011 2:38 PM DIRECTOR TALENT MANAGEMENT Pulse 74 04/19/2011 2:38 PM DIRECTOR TALENT MANAGEMENT Temperature - - Respiratory Rate - - Oxygen Saturation - - Inhaled Oxygen Concentration - - Weight 83 kg (183 lb) 04/19/2011 2:38 PM DIRECTOR TALENT MANAGEMENT Height - - Body Mass Index 28.66 03/12/2011 1:14 PM CDT documented in this encounter Progress Notes aMyela Reese - 04/19/2011 2:43 PM CST Initial Depo Injection Is the patient within 1st 5 days of a normal period? Yes: taking sugar pills Is the patient post delivery ? No If yes, is she ? N/A If yes , shot given within 6 weeks after delivery? N/A. If no , shot given within 5 days of delivery? N/A BP Readings from Last 1 Encounters: 04/19/11 143/76 Patient's last menstrual period was 04/14/2011. Date range to return is given to patient for her next dose: 07/05/2011 - 07/19/2011 See Medication Note for administration information Staff Sig: Mayela Reese RN CTOR TALENT MANAGEMENT documented in this encounter Plan of Treatment Not on filedocumented as of this encounter Visit Diagnoses Diagnosis Contraception management Unspecified contraceptive management Menorrhagia Excessive or frequent menstruation documented in this encounter Care Teams Social Sciences Instructor Relationship Specialty Start Date End Date Esmer Roland MD PCP - General Family Practice 09/21/10 01/29/17 documented as of this encounter
--- OUTSIDE RECORDS SUMMARY | 2022-04-02 12:43 | XMS_ITS | Encounter Summary ---
:1975 Author Organization [place] Address [address] [place] [address]. [place] [address] Care Team Providers Name Role Phone Esmer Roland MD Primary Care Provider [phone] Reason for Visit Reason Onset Date Comments Refill Request 03/16/2012 zolpidem 5mg Encounter Details Date Type Department Care Team Description 03/16/2012 Refill [facility] Esmer Roland Refill Request Clinic Sara Byrd MD (zolpidem 5mg) [address] [facility], [address] [place] [address] [address] [place] [address] [place], [place] [phone] (Wo rk) [address] [phone] Social History Tobacco Use Types Packs/Day Years [...] Notes Telephone Encounter - Jonathan Patel - 03/17/2012 4:11 PM CDT Rx faxed Telephone Encounter - Ara Liz - 03/16/2012 2:06 PM CDT Last Fill Date: 11/07/2011 Last Fill Quantity: 90 Last Office Visit: 03/05/2012 Ara Liz CPhT [facility] documented in this encounter Plan of Treatment Not on filedocumented as of this encounter Visit Diagnoses Diagnosis Insomnia - Primary Insomnia, unspecified documented in this encounter Care Teams Monogram Technician Relationship Specialty Start Date End Date Esmer Roland MD PCP - General Family Practice 09/21/10 01/29/17 documented as of this encounter
--- OUTSIDE RECORDS SUMMARY | 2022-04-02 12:43 | XMS_ITS | Encounter Summary ---
:1975 Author Organization [place] Address [address] [place] [address]. [place] [address] Care Team Providers Name Role Phone Esmer Roland MD Primary Care Provider [phone] Reason for Visit Reason Comments ER F/U Was in the ER last night for chest discomfort/congestion/aplpatations. Feels bruised. SOB. ?? Anxiety rel ated. Was given Ativan in the ER and had relief. Encounter Details Date Type Department Care Team Description 12/31/2010 Office Visit [facility] Martin Hauser NXIETY STATE NOS; Clinic [place] Shane Garcia MD Palpitations; [address] [facility] ARIJA AESTHETIC Chest pain [place], [place] [address] [address] [phone] [place], [place] [address] (Wo rk) Social History [...] Sign Reading Time Taken Comments Blood Pressure 110/62 12/31/2010 10:57 AM CDT Pulse 102 12/31/2010 10:57 AM CDT Temperature 37 ??C (98.6 ??F) 12/31/2010 10:57 AM CDT Respiratory Rate 24 12/31/2010 10:57 AM CDT Oxygen Saturation 99% 12/31/2010 10:57 AM CDT Inhaled Oxygen Concentration - - Weight 79.8 kg (176 lb) 12/31/2010 10:57 AM CDT Height 170.2 cm (5' 7) 12/31/2010 10:57 AM CDT Body Mass Index 27.57 12/31/2010 10:57 AM CDT documented in this encounter Progress Notes Martin Hauser MD - 12/31/2010 11:17 AM CDT Dariana Osman is a 35 year old female who presents due to chest pain and anxiety. She has been under stress due to work and has to move. She noticed started 2 days ago and progressed to palpitations. She had an abnormal ECG with palpitations and normal labs. No fevers, chills, nausea, or vomiting. She is having some chest congestion but chest x-ray is negative. She was given ativan which helped relieve her symptoms. She is seeing a counselor every 2 weeks. She denies depression. Past Medical History Diagnosis Date ??? Calculus of kidney ??? Depressive disorder, not elsewhere classified ??? Anxiety state, unspecified Current outpatient prescriptions Medication Sig ??? TRAZodone (DESYREL) 50 MG tablet Take by mouth. 1/2 tab ??? zolpidem (AMBIEN) 5 MG tablet Take 1 tablet by mouth nightly as needed. ??? Norgestim-Eth Estrad Triphasic (ORTHO TRI-CYCLEN, 28,) 0.18/0.215/0.25 MG-35 MCG TABS Take 1 tablet by mouth daily. ??? quetiapine (SEROQUEL) 25 MG tablet Take 1 tablet by mouth. 1/2 tab prn OBJECTIVE: BP 110/62 Pulse 102 Temp(Src) 98.6 ??F (37 ??C) (Oral) Resp 24 Ht 5' 7 (1.702 m) Wt 176 lb (79.833 kg) BMI 27.57 kg/m2 SpO2 99% LMP 12/27/2010 Exam: GENERAL APPEARANCE: healthy, alert [...] all extremities. PSYCH: mentation appears normal and affect flat ASSESSMENT/PLAN: 300.00 ANXIETY STATE NOS Comment: moderate Plan: lorazepam (ATIVAN) 1 MG tablet, paroxetine (PAXIL) 10 MG tablet 785.1 Palpitations Comment: related to anxiety Plan: paroxetine (PAXIL) 10 MG tablet 786.50F Chest pain Comment: viral cold Plan: symptomatic and supportive care. Martin Hauser MD [facility] documented in this encounter Nursing Notes 12/31/2010 3:30 PM CDT >> UTE CORNELIUS Mon Dec 31, 2010 10:59 AM Patient presents with: ER F/U - Was in the ER last night for chest discomfort/congestion/aplpatations. Feels bruised. SOB.?? Anxiety related. Was given Ativan in the ER and had relief. Initial BP 110/62 Pulse 102 Temp(Src) 98.6 ??F (37 ??C) (Oral) Resp 24 Ht 5' 7 (1.702 m) Wt 176 lb (79.833 kg) BMI 27.57 kg/m2 SpO2 99% LMP 12/27/2010 Estimated Body mass index is 27.57 kg/(m^2) as calculated from the following: Height as of this encounter: 5' 7(1.702 m). Weight as of this encounter: 176 lb(79.833 kg). BP completed using cuff size large Right Arm Health Maintenance Updated with Patient: Yes Tobacco Verified: Yes Payor/Verify RX Benefits/Reconcile Disp Completed if allowed: Yes Family History Updated: Yes Immunizations Up to Date: Yes [place]NVFC does apply for the following reason: Has insurance that covers the cost of all vaccines (Not [place] eligible because insurance already covers vaccines) Mychart Offered: Yes Jeimy Bowman CHILDBIRTH AND INFANT CARE TEACHER documented in this encounter Plan of Treatment Not on filedocumented as of this encounter Visit Diagnoses Diagnosis ANXIETY STATE NOS Anxiety state, unspecified Palpitations Chest pain Chest pain, unspecified documented in this encounter Care Teams Advertising Editor Relationship Specialty Start Date End Date Esmer Roland MD PCP - General Family Practice 09/21/10 01/29/17 documented as of this encounter
--- OUTSIDE RECORDS SUMMARY | 2022-04-02 12:43 | XMS_ITS | Encounter Summary ---
:1975 Author Organization [place] Address [address] [facility] 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) Esmer Roland, [facility] [address] [place] [address] Referral ID Status Reason Start Date Expiration Date Visits Requ ested Visits Authorized [id number] Closed 12/28/2012 06/26/2013 1 1 Reason for Visit Reason Onset Date Comments Results 12/28/2012 Encounter Details Date Type Department Care Team Description 12/28/2012 Telephone [facility] Esmer Roland, Results Sara BANERJEE [address] [facility], [address] [place] [address] [place] [address] [phone] Social History Tobacco Use Types Packs/Day Years [...] Notes Telephone Encounter - Mayela Reese - 12/29/2012 1:38 PM CDT Patient notified and phone number for OBGYN in [place] given. Mayela Reese RN Telephone Encounter - Esmer Roland MD - 12/28/2012 4:15 PM CDT Pt with high grade changes on colposcopy, pt needs referral and f/u with NET APPLICATION SUPPORT SPECIALIST. Please call pt documented in this encounter Plan of Treatment Scheduled Referrals Name Type Priority Associated Diagnoses Order S chedule SHINGLES ROOFER HELPER REFERRAL Referral Routine Papanicolaou smear of vag enrique Ordered: 12/28/2012 with high grade squamous intraepithelial lesion (HGSI L) documented as of this encounter Visit Diagnoses Diagnosis Papanicolaou smear of vagina with high g rade squamous intraepithelial lesion (HGSIL) - Primary documented in this encounter Care Teams Professor Of Religion Relationship Specialty Start Date End Date Esmer Roland MD PCP - General Family Practice 09/21/10 01/29/17 documented as of this encounter
--- OUTSIDE RECORDS SUMMARY | 2022-04-02 12:43 | XMS_ITS | Encounter Summary ---
:1975 Author Organization [place] Address [address] [place] [address]. [place] [address] Care Team Providers Name Role Phone Esmer Roland MD Primary Care Provider [phone] Reason for Visit Reason Onset Date Comments Refill Request 09/22/2012 Phentermine 37.5mg Encounter Details Date Type Department Care Team Description 09/22/2012 Refill [facility] Esmer Roland Refill Request Clinic Sara Byrd MD (Phentermine 37.5mg) [address] [facility], [address] [place] [address] [address] [place] [address] [place], [place] [phone] (Wo rk) [address] [phone] Social History Tobacco Use Types Packs/Day Years [...] Notes Telephone Encounter - Mayela Reese - 09/22/2012 1:40 PM CDT Med: Phentermine 37.5mg Last OV: 08/07/2012 Reason: Anxiety Last filled: 08/20/2012 Wt Readings from Last 2 Encounters: 04/16/13 212 lb (96.163 kg) 03/01/13 216 lb (97.977 kg) BP Readings from Last 3 Encounters: 09/22/12 120/81 08/07/12 112/62 03/05/12 112/70 Mayela Reese RN documented in this encounter Plan of Treatment Not on filedocumented as of this encounter Visit Diagnoses Diagnosis Obesity - Primary Obesity, unspecified documented in this encounter Care Teams Carrier Loader Relationship Specialty Start Date End Date Esmer Roland MD PCP - General Family Practice 09/21/10 01/29/17 documented as of this encounter
--- OUTSIDE RECORDS SUMMARY | 2022-04-02 12:43 | XMS_ITS | Encounter Summary ---
:1975 Author Organization [facility] Address [address] [place] [address] Care Team Providers Name Role Phone Esmer Roland MD Primary Care Provider [phone] Reason for Visit Reason Comments Depression med check/follow up, increas ed weight Pre Visit Planning - Done aet mychart 08/06/12 Encounter Details Date Type Department Care Team Description 08/07/2012 Office Visit [facility] Esmer Roland ANXIETY STATE NOS (Primary Dx); Clinic Sara Byrd MD Insomnia; [place] [address] Abnormal uterine bleeding; Road, [address] [place] [address] Mild major depression (H); [place], [place] [phone] (Wo rk) Vitamin d deficiency [id number] [phone] Social History Tobacco Use Types Packs/Day Years [...] Sign Reading Time Taken Comments Blood Pressure 112/62 08/07/2012 8:23 AM [employer] CHIP SACKING MACHINE 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 Pulse 68 08/07/2012 8:23 AM [employer] CHIP SACKING MACHINE OPERATOR Temperature 37 ??C (98.6 ??F) 08/07/2012 8:23 AM [employer] CHIP SACKING MACHINE OPERATOR Respiratory Rate 14 08/07/2012 8:23 AM [employer] CHIP SACKING MACHINE OPERATOR Oxygen Saturation - - Inhaled Oxygen Concentration - - Weight 98 kg (216 lb) 08/07/2012 8:23 AM [employer] CHIP SACKING MACHINE OPERATOR Height 170.2 cm (5' 7) 08/07/2012 8:23 AM [employer] CHIP SACKING MACHINE OPERATOR Body Mass Index 33.83 08/07/2012 8:23 AM [employer] CHIP SACKING MACHINE OPERATOR documented in this encounter Patient Instructions Patient InstructionsDoEsmer dunham MD - 08/07/2012 8:43 AM [employer] CHIP SACKING MACHINE OPERATOR The Mediterranean Diet can reduce your risk of Heart Disease and Stroke Recommended: [place] oil >4 Tbs/day Tree nuts >3 handfuls/wk, prefer once daily 1/4 cup, Almonds, Walnuts, Hazelnuts preferred Fresh Fruits >3/day Vegetables >2/day Fish, seafood >3/week Legumes >3/week White meat Instead of red meat Wine with meals, optional, only for those who wish to drink, up to 7 drinks per week Discouraged; Limit the following Soda drinks <1/day Commercial baked goods, sweets, pastries <3/week Spread fats <1/day Red meat <1/day Or processed meats <1/day Taken from [place] [employer] Jul 2012 TO CHIP SACKING MACHINE OPERATOR documented in this encounter Progress Notes Esmer Roland MD - 08/07/2012 8:26 AM CST SUBJECTIVE: Dariana Osman is a 36 year old female who presents to clinic today for the following health issues: Needs xanax refill, Does not take it every day, rarely needs it, will have a few days in a row, whenshe takes it once daily. Will get very anxious and then will feel palpitations, and SOB. Is taking 2paxil and no negative thoughts. Hx of PVS, see last ekg Depression Follow-Up ?? Status since last visit: Improved, does not want to change at this time ?? See PHQ-9 for current symptoms. ?? Other associated symptoms:None ?? Complicating factors: Significant life event: No Current substance abuse: None Anxiety / Panic / Manic symptoms: Yes- anxiety PHQ-9 [place] PHQ-9 Any Language ?? Amount of exercise or daily activities, outside of work: 2 day(s) per week ?? Problems taking medications regularly No ?? Medication side effects: Yes still having a lot of break through bleeding ?? Diet: regular (no restrictions) Sleeping better, not taking ambein daily. History Substance Use Topics ??? Smoking status: Former Smoker ??? Smokeless tobacco: Never Used Comment: Very Occasional ??? Alcohol Use: Yes 2-3 times a week(1 glass of wine) 1 qo weekend Problem list and histories reviewed & adjusted, as indicated. Additional history: as documented ROS: C: NEGATIVE for fever, chills, change in weight E/M: NEGATIVE for ear, mouth and throat problems R: NEGATIVE for significant cough or SOB CV: NEGATIVE for chest pain, palpitations or peripheral edema Problem list, Medication list, Allergies, and Medical/Social/Surgical histories reviewed in [facility] andupdated as appropriate. Labs reviewed in [facility] OBJECTIVE: BP 112/62 Pulse 68 Temp(Src) 98.6 ??F (37 ??C) (Oral) Resp 14 Ht 5' 7 (1.702 m) Wt 216 lb(97.977 kg) BMI 33.83 kg/m2 ? No Body mass index is 33.83 kg/(m^2). GENERAL: healthy, alert, well nourished, well [...] extremities- no gross deformities noted, no edema ASSESSMENT/PLAN: 300.00 ANXIETY STATE NOS (primary encounter diagnosis) Comment: controlled Plan: PHQ-9 ORDER - select when completing PHQ-9, PARoxetine (PAXIL) 20 MG tablet 780.52 Insomnia Comment: doing better Plan: ALPRAZolam (XANAX) 0.5 MG tablet, zolpidem (AMBIEN) 5 MG tablet 626.9 Abnormal uterine bleeding Comment: refilled for the yr Plan: norgestimate-ethinyl estradiol (ORTHO-CYCLEN, SPRINTEC) 0.25-35 MG-MCG tablet 296.21 Mild major depression Comment: Plan: PHQ-9 ORDER - select when completing PHQ-9 paxil is working, will need to decrease to 20mg at some point, pt not willing to lower dose now 268.9 Vitamin d deficiency Comment: Plan: cont same See Patient Instructions Estimated Body mass index is 33.83 kg/(m^2) as calculated from the following: Height as of this encounter: 5' 7(1.702 m). Weight as of this encounter: 216 lb(97.977 kg). Weight management plan: Diet regimen was discussed and plan is self-directed dieting: increase fruits/vegetables and avoid sweets. Esmer Roland [facility] TO CHIP SACKING MACHINE OPERATOR documented in this encounter Nursing Notes 08/07/2012 8:15 AM CST >> ARIELLE SHARIF Fri Aug 07, 2012 8:28 AM Patient presents with: Depression - med check/follow up, increased weight Pre Visit Planning - Done - aet mychart 08/06/12 Initial BP 112/62 Pulse 68 Temp(Src) 98.6 ??F (37 ??C) (Oral) Resp 14 Ht 5' 7 (1.702 m) Wt 216 lb (97.977 kg) BMI 33.83 kg/m2 ? No Estimated Body mass index is 33.83 kg/(m^2) as calculated from the following: Height as of this encounter: 5' 7(1.702 m). Weight as of this encounter: 216 lb(97.977 kg).. BP completed using cuff size: large Arielle Sharif CMA documented in this encounter Plan of Treatment Not on filedocumented as of this encounter Visit Diagnoses Diagnosis ANXIETY STATE NOS - Primary Anxiety state, unspecified Insomnia Insomnia, unspecified Abnormal uterine bleeding Unspecified disorder of menstruation and other abnormal bleeding from female genital tract Mild major depression (H) Major depressive disorder, single episod e, mild Vitamin D deficiency Unspecified vitamin D deficiency documented in this encounter Care Teams Pressing Machine Operator Relationship Specialty Start Date End Date Esmer Roland MD PCP - General Family Practice 09/21/10 01/29/17 documented as of this encounter
--- OUTSIDE RECORDS SUMMARY | 2022-04-02 12:43 | XMS_ITS | Encounter Summary ---
:1975 Author Organization [facility] Address [address] [place] [id number] Care Team Providers Name Role Phone Fawad Roland MD Primary Care Provider Reason for Visit Reason Comments Dysuria Encounter Details Date Type Department Care Team Description 03/12/2011 Allied Health/Nurse [facility] Dysuria Visit [address], [address] [place] [address] Social History Tobacco Use Types Packs/Day Years Used Date Smoking Tobacco: Former Smokeless Tobacco: Never Comments: Very Occasional Alcohol Use Standard Drinks/Week Comments Yes 0 (1 standard drink = 0.6 oz pure alcoho l) 1 qo weekend Sex Assigned at Date Recorded Not on file documented as of this encounter Last Filed Vital Signs Vital Sign Reading Time Taken Comments Blood Pressure 124/66 03/12/2011 1:14 PM CDT Pulse 76 03/12/2011 1:14 PM CDT Temperature 37.6 ??C (99.6 ??F) 03/12/2011 1:14 PM CDT Respiratory Rate 15 03/12/2011 1:14 PM CDT Oxygen Saturation - - Inhaled Oxygen Concentration - - Weight 80.4 kg (177 lb 4.8 oz) 03/12/2011 1:14 PM CDT Height 170.2 cm (5' 7) 03/12/2011 1:14 PM CDT Body Mass Index 27.77 03/12/2011 1:14 PM CDT documented in this encounter Patient Instructions Patient Arnold Ramsayan - 03/12/2011 1:40 PM CDT What is vaginitis? Vaginitis is the medical name for swelling, burning, itching, or an infection of the vagina. When the vulva is also affected, it is called vulvovaginitis. (The vulva is the fold of skin around the opening of the vagina.) Vaginitis is a very common problem that can occur in females of any age. How does it occur? Vaginitis can be caused by organisms that infect the vagina, such as bacteria, viruses, protozoa, oryeast. It can also be caused by irritants such as soap, powders, or lubricants. Sexually transmitted diseases (STDs) that cause vaginal infections are: trichomoniasis chlamydial infections gonorrhea syphilis genital herpes human papillomavirus (genital warts). Yeast infections of the vagina are caused by overgrowth of a fungus called Wiht. Vaginitis can also be caused by an overgrowth of bacteria normally found in the vagina. This is a condition called bacterial vaginosis or nonspecific vaginitis. Irritants that can cause vaginitis include: control products such as condoms, diaphragms, and spermicides feminine hygiene products such as perfumed sprays, powders, or douches perfumed soaps, detergents, or fabric softeners nonabsorbent, heat-retaining clothing such as nylon pantyhose and tights antibiotics tampons sexual devices injury. foreign objects in the vagina, such as a lost tampon Vaginitis can also be caused by psychological stress, poor hygiene, or a decrease in estrogen hormone (known as atrophic vaginitis). Sometimes the cause of vaginitis is not known. What are the symptoms? The main symptom of vaginitis is a lot of whitish, cheney, or yellowish discharge from the vagina. Some milky vaginal discharge is normal for females of all ages, but infections cause an abnormal amount of discharge. The discharge may have a bad odor. You may also have: an unpleasant odor from the vagina itching a swollen, red vulva, which may be painful or itchy painful intercourse bleeding in the vaginal area. symptoms of a urinary tract infection, such as pain when you urinate. If you have pain in your lower abdomen or irregular bleeding with these symptoms, see your healthcare provider right away. If you are at risk for a sexually transmitted disease and have the above symptoms, you should also see your provider right away. How is it diagnosed? Your healthcare provider will examine you and do lab tests. The lab tests may include tests of vaginal discharge, urine tests, and blood tests. How is it treated? The goal of treatment is to eliminate the organisms or irritants that are causing the symptoms. Infections are treated with antibiotic pills or shots, antifungal or antibacterial creams or gels, vaginal tablets, or vaginal inserts. Your healthcare provider may ask you to stop sexual activity for a time. Your provider may also ask that your partner be treated to prevent reinfection or spread of the infection. Vaginitis caused by irritants can usually be treated by stopping exposure to the irritant. Some irritations are treated with steroid or hormone creams. For women in menopause, vaginal dryness (atrophic vaginitis) can be treated with hormone pills or cream. Do not treat vaginitis with nonprescription medicine without the approval of your healthcare provider. It could be the wrong treatment. How long will the effects last? The symptoms usually start to decrease after a day of treatment. Infections clear up in about a week. It is very important that you take all of your prescribed medicine, even if your symptoms are gone.This will help to prevent recurrence. If you stop taking your medicine after the symptoms are relieved but before the scheduled end of treatment, the infection or irritation may come back. How can I take care of myself? To help relieve the symptoms you can: Bathe with nonirritating, unscented soap. Use water that is warm but not hot. Rinse the genital areathoroughly but gently. Pat dry without rubbing. Wear loose-fitting, all-cotton underwear or cotton-crotch underwear. Keep your genital area dry. Use a vaginal lubricant if you have vaginal dryness during sex. Call your healthcare provider if you notice a change in color, odor, consistency, or quantity of vaginal discharge. How can I help prevent vaginitis? Practice good personal hygiene: Bathe daily with mild soap and warm water. Wear all-cotton underwear or underwear with cotton crotches. Change underwear and pantyhose every day. Avoid wearing pantyhose or tights for too many hours, especially in hot, humid weather. Use deodorant-free white toilet paper to avoid perfume and dye that might irritate. Avoid using feminine hygiene products (such as sprays and powders) and bath additives (such as bubble baths and oils). Avoid douching more than once a month. Douching is not necessary. Use deodorant-free sanitary pads or tampons. Avoid spermicidal foams, gels, and creams. If you tend to get yeast infections when you take antibiotics, use an antiyeast cream while you are taking antibiotic medicine. Have just 1 sexual partner who is not sexually active with anyone else, and practice safe sex. Use a condom during sexual intercourse Wipe from top to bottom (front to back) after using the restroom. If you get a yeast infection when taking antibiotics, use vaginal antifungal creams when taking antibiotics. Bladder Infection (Cystitis) What is a bladder infection? A bladder infection, also called cystitis, is a type of urinary tract infection. The inner lining ofthe bladder becomes inflamed (red and swollen) and the urine is full of bacteria. How does it occur? Bacteria are the usual cause of infection. Normally there should be no bacteria in the urinary tract. A bladder infection occurs when bacteria travel up the urethra and into the bladder. Women are more likely to have bladder infections than men because their urethra is shorter. The short urethra makes it easier for bacteria from the anus or genital area to reach the bladder. This can happen during such activities as sexual intercourse or wiping after using the toilet. Most infections of the urinary tract are caused this way. Bladder infections often occur in young women who have just become sexually active. Bacteria may grow in the urine if the flow of urine is blocked. For example, in women the pressure from a baby during can cause this problem. In men, an enlarged prostate may cause such a blockage. What are the symptoms? Possible symptoms of a bladder infection include: urinating more often feeling an urgent need to urinate a burning, stinging, or pressure sensation during urination a crampy pain or discomfort in the lower abdomen just above the pubic bone or sometimes in the lowerback a need to urinate more often in the night cloudy urine that smells bad blood in the urine leaking of urine fever and occasionally chills. How is it diagnosed? Your healthcare provider will examine you and may ask for a urine sample. You may also have blood tests. More tests may be done if you have had several infections. Also, when men have a bladder infection usually more tests are done because cystitis is less common in men. The tests will check for possible causes of the infection. How is it treated? Bladder infection is a common problem that is usually easily treated. Your healthcare provider will prescribe an antibiotic to kill bacteria and prevent the spread of infection to your kidneys. If your case is more serious with fever, pain, or vomiting, you may have to spend a day or two in the hospital and take your antibiotics by vein (IV). If you are not , you may also try over the counter Pyridium, a medicine that helps reduce the pain and spasm of the bladder during the first couple of days. Pyridium will turn your urine orangeand may stain your clothing. In some cases your healthcare provider may ask you to have a follow-up visit after you have taken all of the antibiotic so another sample of your urine can be tested. This is to make sure the infectionis gone. How long will the effects last? Prompt treatment of a bladder infection with antibiotics usually relieves the symptoms in 24 to 48 hours. If your case is more serious, you may take several days to feel better. How can I take care of myself? Take all of the antibiotic that your healthcare provider prescribes, even when you feel better. Do not take medicine left over from previous prescriptions. If your provider prescribed Pyridium, use it to feel better while you are waiting for the antibioticto work. Drink more fluids, especially water, to help flush the bacteria from your system. Follow your healthcare provider's directions for a follow-up urine test. Your provider may want to test your urine soon after you finish taking the antibiotic. Follow your healthcare provider's recommendation for regular urine testing to check for recurrence, if necessary. If you have a fever: Rest in bed if your temperature is over 100??F (38??C). Ask your healthcare provider if you should take aspirin or acetaminophen to control your fever. Anyone under the age of 18 with a fever should not take aspirin because of an increased risk of a severe illness called David's syndrome. Keep a record of your daily temperature. Call your healthcare provider if you are not getting better after you have taken the antibiotic for 48 hours. Call sooner if you are getting worse. What can I do to help prevent bladder infection? To help prevent a bladder infection from recurring, urinate often during the day and empty your bladder completely each time. In addition, women who tend to have bladder infections often should follow these guidelines: Talk to your healthcare provider. You may need extra tests to find out why you often have bladder infections. Your provider may prescribe medicine that helps prevent infections. Drink plenty of water. Do not delay urinating when you feel the need to urinate. Keep the vaginal area clean. Wipe from front to back after using the toilet. Be sure to gently wash the genital area each time you bathe or shower. However, use soap only on the outside of your vagina.The chemicals in soap may cause additional irritation. Urinate after intercourse. Never combine anal and vaginal intercourse. Wear cotton underwear, which allows better air circulation than nylon. Wear pantyhose with cotton crotches. Avoid tight clothes in the genital area, such as control-top pantyhose and tight jeans. Do not wear a wet bathing suit for long periods of time. During , tell your healthcare provider if you have a history of urinary tract problems. Your provider may order tests for bacteria in your urine before you have symptoms of infection. If you have stopped having your periods because of menopause and are not taking estrogen, your provider might suggest a vaginal cream. Sometimes this cream helps prevent bladder infections after menopause. Men should always wash the penis during baths or showers. If you are not circumcised, gently pull back the foreskin and wash the tip of the penis when you bathe. documented in this encounter Progress Notes Amadeo Lemus - 03/13/2011 7:42 AM CDT Addended by: AMADEO LEMUS on: 03/13/2011 Modules accepted: Orders, Medications Fawad Roland - 03/12/2011 3:01 PM CDT Addended by: FAWAD ROLAND on: 03/12/2011 Modules accepted: Orders Amadeo Lemus - 03/12/2011 10:29 AM CDT RN UTI Protocol: Female Ages 16 to 65 years SUBJECTIVE: Dariana Osman is a 35 year old female who presents clinic for a possible UTI. Patient Reports: Symptoms:dysuria, frequency, back pain, nausea and vomiting Onset of symptoms: 4 days ago with sudden onset Hematuria?: Yes. LMP: unknown ?: No. (if yes, or possible, schedule appointment with provider) Sexually active? Yes - offer GC/chlam. ENCOURAGE STRONGLY if age <24 and/or new sex partner. Patient agrees to Chlamydia and/or GC testing? No. Vaginal discharge present?: Yes - have patient do self wet prep. Patient Denies: Complicating factors including: (if yes to any of the following, schedule appt with a provider) None Patient will wait for the results. OBJECTIVE: Wt Readings from Last 1 Encounters: 03/12/11 177 lb 4.8 oz (80.423 kg) LAB ORDERS: UA Micro if positive UC as indicated Wet Prep as indicated Chlamydia and/or GC as indicated ALLERGIES: Allergies Allergen Reactions ??? Codeine TREATMENT: UA: >10 WBC = lab will order culture, treat for UTI NO Sulfa Allergy: Septra DS one tablet twice daily for 3 days WET PREP: Clue cells: Flagyl 500 BID x 7 days (absolutely no alcohol intake) PLAN: Medications ordered as indicated per treatment protocol If no abnormal labs, recommend increase fluid intake and advise patient to follow-up with provider if not resolved 2-3d or sooner if worsen Symptomatic therapy recommended: Over the counter Pyridium (contraindicated in and ), Cranberry juice prn (contraindicated in Coumadin patients), Increase fluid intake (if kidneyfunction is normal) and OTC advil or tylenol Education provided. Patient verbalizes understanding of this plan and is agreeable. Encounter handled by: Nurse Triage with [facility] - provider name: Dr. Roland. Amadeo Lemus RN documented in this encounter Plan of Treatment Not on filedocumented as of this encounter Procedures Procedure Name Priority Date/Time Associated Comments Diagnosis WET PREPARATION Routine 03/12/2011 1:25 PM Dysuria Result s for this CDT procedure are i n the results section. UA MACROSCOPIC WITH Routine 03/12/2011 11:08 Dysuria Results for this REFLEX TO MICRO AM CDT UTI (urinary tract proced ure are in infection) the results section. URINE MICROSCOPIC Routine 03/12/2011 11:08 Dysuria Results for this EXAM AM CDT UTI (urinary tract procedure are in infection) the results section. URINE CULTURE Routine 03/12/2011 11:08 Dysuria Results for this AM CDT UTI (urinary tract procedure are in infection) the results section. documented in this encounter Results Wet prep (03/12/2011 1:25 PM CDT) Component Value Ref Test Analysis Performed At [facility] Range Method Time Signature Specimen Vagina [facility] Description [facility] Wet Prep Clue cells seen [place] No yeast seen [place] No Trichomonas seen [facility] Micro Report FINAL [place] Status 03/12/2011 [facility] Specimen Anatomical Collection Method Collection Time Receive d Time (Source) Location / / Volume Laterality 03/12/2011 1:25 PM 1 1:26 CDT PM CDT Fawad Roland MD LAB - MICRO GENERAL ORDERABL ES Performing Organization Address [facility] Phon e Number [address] [address] [facility] (ABNORMAL) Microscopic exam urine (03/12/2011 11:08 AM CDT) [facility] Method Time Signature WBC Urine 10-25 (A) 0 - 2 [facility] /HPF [facility] RBC Urine 2-5 (A) 0 - 2 [facility] /H[facility] Squamous Few [facility] Epithelial [place] /[facility] Bacteria Urine Moderate (A) NEG /HPF [facility] Mucous Urine Present (A) NEG /LPF [facility] Specimen Anatomical Collection Method Collection Time Receive d Time (Source) Location / / Volume Laterality 03/12/2011 11:08 03/12/2011 AM CDT 11:09 AM CDT Fawad Roland MD LAB - URINE ORDERABLES Performing Organization Address [facility] Phon e Number [address] [address] [facility] Urine culture (03/12/2011 11:08 AM CDT) [facility] Method Time Signature Specimen Midstream [place] Description Urine [facility] Culture Micro No growth [facility] Micro Report FINAL [place] Status 03/14/2011 [facility] Specimen Anatomical Collection Method Collection Time Receive d Time (Source) Location / / Volume Laterality 03/12/2011 11:08 03/12/2011 AM CDT 11:10 AM CDT Fawad Roland MD LAB - MICRO GENERAL ORDERABL ES Performing Organization Address City/State/ZIP Code Phon e Number [facility] [address] [place] [address] [facility] (ABNORMAL) UA macroscopic with reflex to micro (03/12/2011 11:08 AM CDT) [facility] Method Time Signature Color Urine Yellow [facility] Appearance Urine Slightly [place] Cloudy [facility] Glucose Urine Negative NEG mg/dL [facility] Bilirubin Urine Negative NEG [facility] Ketones Urine Trace (A) NEG mg/dL [facility] Specific [place] 1.020 1.003 - [place] Urine 1.035 [facility] Blood Urine Small (A) NEG [facility] pH Urine 6.0 5.0 - 7.0 [place] pH [facility] Protein Albumin Trace (A) NEG mg/dL [facility] Urobilinogen 1.0 0.2 - 1.0 [place] Urine EU/dL [facility] Nitrite Urine Negative NEG [facility] Leukocyte Moderate (A) NEG [place] Esterase Urine [facility] Source Midstream [place] Urine [facility] Specimen Anatomical Collection Method Collection Time Receive d Time (Source) Location / / Volume Laterality Urine specimen 03/12/2011 11:08 1 (specimen) AM CDT 11:09 AM CDT Fawad Roland MD LAB - URINE ORDERABLES Performing Organization Address City/State/ZIP Code Phon e Number [facility] [id number] [place] [phone] [facility] documented in this encounter Visit Diagnoses Diagnosis Vaginitis - Primary Vaginitis and vulvovaginitis, unspecifie d Dysuria UTI (urinary tract infection) Urinary tract infection, site not specif ied documented in this encounter Care Teams Sharepoint Analyst Relationship Specialty Start Date End Date Fawad Roland MD PCP - General Family Practice 09/21/10 01/29/17 documented as of this encounter
--- OUTSIDE RECORDS SUMMARY | 2022-04-02 12:43 | XMS_ITS | Encounter Summary ---
:1975 Author Organization [facility] Address [address] [place] [address] Care Team Providers Name Role Phone Esmer Roland MD Primary Care Provider [phone] Reason for Visit Reason Comments URI swollen glands Encounter Details Date Type Department Care Team Description 02/14/2011 Office Visit [facility] Esmer Roland PHARYNG ITIS (Primary Dx); Clinic Sara Byrd MD Major depress dis, severe [place] [address] [facility], [address] [place] [address] [place], [place] [phone] (Wo rk) [address] [phone] Social History Tobacco Use Types Packs/Day Years Used Date Smoking Tobacco: Former Smokeless Tobacco: Never Comments: Very Occasional Alcohol Use Standard Drinks/Week Comments Yes 0 (1 standard drink = 0.6 oz pure alcoho l) 1 qo weekend Sex Assigned at Date Recorded Not on file documented as of this encounter Last Filed Vital Signs Vital Sign Reading Time Taken Comments Blood Pressure 128/70 02/14/2011 12:07 PM CDT Pulse 68 02/14/2011 12:07 PM CDT Temperature 37.6 ??C (99.7 ??F) 02/14/2011 12:07 PM CDT Respiratory Rate 16 02/14/2011 12:07 PM CDT Oxygen Saturation 97% 02/14/2011 12:07 PM CDT Inhaled Oxygen Concentration - - Weight 80.4 kg (177 lb 3.2 oz) 02/14/2011 12:07 PM CDT Height 167.6 cm (5' 6) 02/14/2011 12:07 PM CDT Body Mass Index 28.6 02/14/2011 12:07 PM CDT documented in this encounter Progress Notes Esmer Roland - 02/14/2011 12:09 PM CDT SUBJECTIVE: Dariana Osman is a 35 year old female who presents with a complaint of Sore Throat. Onset of symptoms was 2 days ago. Treatment measures tried include None tried. Course of illness is worsening. Associated symptoms: Otalgia: present, side: bilateral and mild Rhinorrhea: present: and clear Fever: fevers up to 99.7 degrees and hot and cold spells Cough: none Sore throat: Yes: neck is swollen as well, glands enlarged Nausea/emesis: No Diarrhea: No Other symptoms: No Recent illnesses: none Exposures to: none applicable at none known. Predisposing conditions include: None PE: Temp(Src) 99.7 ??F (37.6 ??C) (Tympanic) General appearance: alert, no acute distress Eyes: Conjunctiva without erythema or mattering. Ears: Tympanic membranes with good landmarks bilaterally. Normal color. Nose: Nares without erythema or drainage. Throat: without erythema or exudate. No tonsilar hypertrophy. Tonsils removed Neck: No lymphadenopathy or masses, is tender along the anterior cervical chain. Lungs: clear to auscultation. Heart: regular rate and rhythm without murmurs, rubs or gallops ASSESSMENT: URI and Viral Syndrome Depression -stable per PHQ-9 PLAN: See orders: lab, imaging, med and follow-up plans for this encounter. Strep test negative documented in this encounter Nursing Notes 02/14/2011 1:15 PM CDT >> MELISSA JANSEN Halley Feb 14, 2011 1:01 PM Patient presents with: URI - swollen glands Initial BP 128/70 Pulse 68 Temp(Src) 99.7 ??F (37.6 ??C) (Tympanic) Resp 16 Ht 5' 6 (1.676 m) Wt 177 lb 3.2 oz (80.377 kg) BMI 28.60 kg/m2 SpO2 97% Estimated Body mass index is 28.60 kg/(m^2) as calculated from the following: Height as of this encounter: 5' 6(1.676 m). Weight as of this encounter: 177 lb 3.2 oz(80.377 kg). BP completed using cuff size large right arm. Melissa Jansen CMA documented in this encounter Plan of Treatment Not on filedocumented as of this encounter Procedures Procedure Name Priority Date/Time Associated Diagnosis Comme nts RAPID STREP SCREEN Routine 02/14/2011 12:26 PM Pharyngitis Re sults for this THROAT SWAB CDT procedure are i n the results section. BETA HEMOLYTIC Routine 02/14/2011 12:26 PM Pharyngitis Result s for this STREP GROUP A CDT procedure are in CULTURE the results section. documented in this encounter Results Beta strep group A culture (02/14/2011 12:26 PM CDT) Component Value Ref Test Analysis Performed At [facility] gist Range Method Time Signature Specimen Throat [facility] LAB Culture Micro No Beta [place] Streptococcus [facility] isolated LAB Micro Report FINAL 02/16/2011 [place] Status [facility] LAB Specimen Anatomical Collection Method Collection Time Receive d Time (Source) Location / / Volume Laterality Specimen from 02/14/2011 12:26 02/14/2011 throat PM CDT 12:28 PM CDT (specimen) Esmer Roland MD LAB - MICRO GENERAL ORDERABL ES Performing Organization Address City/State/ZIP Code Phon e Number [address] [address] [facility] Rapid strep screen (02/14/2011 12:26 PM CDT) Component Value Ref Test Analysis [facility]formed [facility] Range Method Time Signature Specimen Throat [place] Description [facility] LAB Rapid Strep A NEGATIVE: No Group A strepto coccal antigen detected by immunoassay, await [place] Screen culture report. [facility] LAB Micro Report FINAL 02/14/2011 [place] Status [facility] LAB Specimen Anatomical Collection Method Collection Time Receive d Time (Source) Location / / Volume Laterality Specimen from 02/14/2011 12:26 02/14/2011 throat PM CDT 12:28 PM CDT (specimen) Esmer Roland MD LAB - MICRO GENERAL ORDERABL ES Performing Organization Address City/State/ZIP Code Phon e Number [facility] [place] [address] [facility] documented in this encounter Visit Diagnoses Diagnosis Pharyngitis - Primary Acute pharyngitis Major depressive disorder, single episod e, severe, without mention of psychotic behavior documented in this encounter Care Teams Garage Manager Relationship Specialty Start Date End Date Esmer Roland MD PCP - General Family Practice 09/21/10 01/29/17 documented as of this encounter
--- OUTSIDE RECORDS SUMMARY | 2022-04-02 12:43 | XMS_ITS | Encounter Summary ---
:1975 Author Organization [facility] Address [address] [place] [address] Care Team Providers Name Role Phone Esmer Roland MD Primary Care Provider [phone] Yony Garcia PA-C Primary Care Provider [phone] Yony Garcia PA-C Unavailable [phone] Erik Rivas Primary Care Provider Yony Garcia PA-C Unavailable [phone] Reason for Visit Reason Onset Date Comments Refill Request 06/08/2012 Paxil 20mg Encounter Details Date Type Department Care Team Description 06/08/2012 MyC Refill [facility] Esmer Roland Refill Request ([facility] Valier MD [place] 20mg) [address] [place] [address] [address] [place] [address] [place], [place] [phone] (Wo rk) [address] [phone] Social History Tobacco Use Types Packs/Day Years [...] Notes Telephone Encounter - Mayela Reese - 06/08/2012 3:28 PM CST PHQ-9 updated. Medication approved per standing orders. Mayela Reese RN TIC ASSEMBLER Telephone Encounter - Mayela Reese - 06/08/2012 1:52 PM CST Last Office Visit R/T Diagnosis: 03/05/2012 Last PHQ-9 score on record= 9 Date: 11/06/2011 SSRI: Celexa, Lexapro, Luvox, Paxil, Prozac/Sarafem, Zoloft OV: 6mths or as indicated in chart. If <18 yrs of age q 3 mths or as indicated in chart Should have OV 1-2 mths after initial RX ANXIETY: follow up q 12 mths Tests: PHQ-9 q 6 mths If PHQ9 has been done once in the last 6 mths, and if score is 5 or less, OK to refill for 12 mths ANXIETY: if SSRI for anxiety, PHQ9 is not needed Max Refills: 6mths Need updated PHQ-9. [employer] message sent. Mayela Reese RN TIC ASSEMBLER Telephone Encounter - Rosy Reeseique - 06/08/2012 1:51 PM ELASTIC ASSEMBLER Message from [employer]: Original authorizing provider: MD Dariana Man Verito Jacqui would like a refill of the following medications: PARoxetine (PAXIL) 20 MG tablet [Esmer Roland MD] Preferred pharmacy: [facility] Comment: TIC ASSEMBLER documented in this encounter Plan of Treatment Not on filedocumented as of this encounter Visit Diagnoses Diagnosis ANXIETY STATE NOS - Primary Anxiety state, unspecified documented in this encounter Care Teams Motion Picture Printer Relationship Specialty Start Date End Date Esmer Roland, PCP - General Family Practice 09/21/10 01/29/17 Yony Garcia, PCP - General Physician Container Crane Operator - 01/30/17 07/23/18 [facility] Yony Garcia, PCP - Assigned PCP 09/01/16 08/11/18 [facility] [id number] [address] [id number] Erik Rivas PCP - General Family Practice 07/24/[address] [address] Yony Garcia, Assigned PCP 09/01/16 [facility] [id number] [address] [id number] documented as of this encounter
--- OUTSIDE RECORDS SUMMARY | 2022-04-02 12:43 | XMS_ITS | Encounter Summary ---
:1975 Author Organization [facility] Address [address] [place] [address] Care Team Providers Name Role Phone Esmer Roland MD Primary Care Provider Reason for Visit Reason Comments Weight Check Encounter Details Date Type Department Care Team Description 09/22/2012 Allied Health/Nurse [facility] Weight Check Visit [address], [address] [place] [address] Social History Tobacco Use Types Packs/Day [...] Sign Reading Time Taken Comments Blood Pressure 120/81 09/22/2012 1:36 PM CDT Pulse 90 09/22/2012 1:36 PM CDT Temperature - - Respiratory Rate - - Oxygen Saturation - - Inhaled Oxygen Concentration - - Weight 96.2 kg (212 lb) 09/22/2012 1:36 PM CDT Height - - Body Mass Index 33.2 08/07/2012 8:23 AM 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 Mayela Reese RN documented in this encounter Plan of Treatment Not on filedocumented as of this encounter Visit Diagnoses Diagnosis Obesity - Primary Obesity, unspecified documented in this encounter Care Teams Construction Sales Representative Relationship Specialty Start Date End Date Esmer Roland MD PCP - General Family Practice 09/21/10 01/29/17 documented as of this encounter
--- OUTSIDE RECORDS SUMMARY | 2022-04-02 12:43 | XMS_ITS | Encounter Summary ---
:1975 Author Organization [place] Address [facility] [facility] [place] [address] Care Team Providers Name Role Phone Esmer Roland MD Primary Care Provider [phone] Reason for Visit Reason Onset Date Comments Refill Request 02/08/2012 Encounter Details Date Type Department Care Team Description 02/08/2012 Refill [facility] Esmer Roland, Refill Request Carmen Brewer MD [address] [place] [phone] [place] [address] (Wo rk) Social History Tobacco Use Types Packs/Day Years Used Date Smoking Tobacco: Former Smokeless Tobacco: Never Comments: Very Occasional Alcohol Use Standard Drinks/Week Comments Yes 0 (1 standard drink = 0.6 oz pure alcoho l) 1 qo weekend Sex Assigned at Date Recorded Not on file documented as of this encounter Miscellaneous Notes Telephone Encounter - Amandosaadia Anni K - 02/08/2012 11:58 AM CDT Last Fill Date: 11/07/11 Last Fill Quantity: 90 Last Office Visit: 02/14/2011 Date of Last PHQ-9 score:12/31/2010 Last PHQ-9 score on record= 0 AST 22 07/01/2010 ALT 16 07/01/2010 ok'd one time - pt needs to be seen documented in this encounter Plan of Treatment Not on filedocumented as of this encounter Visit Diagnoses Diagnosis ANXIETY STATE NOS - Primary Anxiety state, unspecified documented in this encounter Care Teams Manager Dialysis Relationship Specialty Start Date End Date Esmer Roland MD PCP - General Family Practice 09/21/10 01/29/17 documented as of this encounter
--- OUTSIDE RECORDS SUMMARY | 2022-04-02 12:43 | XMS_ITS | Encounter Summary ---
:1975 Author Organization [place] Address [address] [facility] [place] [address] Care Team Providers Name Role Phone Esmer Roland MD Primary Care Provider [phone] Reason for Visit Reason Comments Depression follow up med check Pre Visit Planning - Done aet mychart 07/27/12 Abnormal Uterine Bleeding breakthrough bleeding 3-5 da ys per month and after intercourse Encounter Details Date Type Department Care Team Description 07/31/2012 Office Visit [facility] Sara Byrd MD ENCOUNTER--DISREGARD [place] [address] [facility] (Primary Dx) [facility], [address] [place] [address] [place], [place] [phone] (Wo rk) [address] [phone] Social History Tobacco Use Types Packs/Day Years Used Date Smoking Tobacco: Former Smokeless Tobacco: Never Comments: Very Occasional Alcohol Use Standard Drinks/Week Comments Yes 0 (1 standard drink = 0.6 oz pure 2-3 ti mes a week(1 glass of wine) 1 alcohol) qo weekend Sex Assigned at Date Recorded Not on file documented as of this encounter Progress Notes Esmer Roland MD - 08/03/2012 10:05 AM CST error INE OPERATOR CANE CUTTER documented in this encounter Plan of Treatment Not on filedocumented as of this encounter Visit Diagnoses Diagnosis ERRONEOUS ENCOUNTER--DISREGARD - Primary documented in this encounter Care Teams Environmental Engineering Professor Relationship Specialty Start Date End Date Esmer Roland MD PCP - General Family Practice 09/21/10 01/29/17 documented as of this encounter
--- OUTSIDE RECORDS SUMMARY | 2022-04-02 12:43 | XMS_ITS | Encounter Summary ---
:1975 Author Organization [facility] Address [address] [place] [address]. [place] [address] Care Team Providers Name Role Phone Esmer Roland MD Primary Care Provider [phone] Reason for Visit Reason Onset Date Comments Hives 03/13/2011 Encounter Details Date Type Department Care Team Description 03/13/2011 Telephone [facility] [place] [address] [facility], [address] [place] [address] [address] [place] [address] [place] [address] [phone] Social History Tobacco Use Types Packs/Day Years Used Date Smoking Tobacco: Former Smokeless Tobacco: Never Comments: Very Occasional Alcohol Use Standard Drinks/Week Comments Yes 0 (1 standard drink = 0.6 oz pure alcoho l) 1 qo weekend Sex Assigned at Date Recorded Not on file documented as of this encounter Miscellaneous Notes Telephone Encounter - Esmer Roland - 03/13/2011 8:31 AM CDT Hives since this am, only thing different is the metronidazole taken as of yesterday for BV. Very itchy, and even eye lids feel puffy. Pt having no trouble swallowing or breathing and otherwise feels fine. Advise given, take claritin this am and a benadryl tonight, stop oral flagyl, will order vaginal gelinstead for BV. Call back if having any further concerns or not improving documented in this encounter Plan of Treatment Not on filedocumented as of this encounter Visit Diagnoses Diagnosis Vaginitis - Primary Vaginitis and vulvovaginitis, unspecifie d Hives Urticaria, unspecified documented in this encounter Care Teams Communications Specialist Relationship Specialty Start Date End Date Esmer Roland MD PCP - General Family Practice 09/21/10 01/29/17 documented as of this encounter
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
--- OUTSIDE RECORDS SUMMARY | 2022-04-02 12:43 | XMS_ITS | Encounter Summary ---
:1975 Author Organization [place] Address [address] [place] [address] Care Team Providers Name Role Phone Esmer Roland MD Primary Care Provider [phone] Reason for Visit Reason Onset Date Comments Contraception 04/19/2011 Depo injection Encounter Details Date Type Department Care Team Description 04/19/2011 Telephone [facility] Esmer Roland Contrac eption (Depo Clinic Sara Byrd MD injection) [place] [address] [facility], [address] [place] [address] [place], [place] [phone] (Wo rk) [address] [phone] Social History Tobacco Use Types Packs/Day Years Used Date Smoking Tobacco: Former Smokeless Tobacco: Never Comments: Very Occasional Alcohol Use Standard Drinks/Week Comments Yes 0 (1 standard drink = 0.6 oz pure alcoho l) 1 qo weekend Sex Assigned at Date Recorded Not on file documented as of this encounter Miscellaneous Notes Telephone Encounter - Mayela Reese - 04/19/2011 10:08 AM CST Pt notified. Mayela Reese RN OR DATA WAREHOUSE ARCHITECT Telephone Encounter - Esmer Roland - 04/19/2011 10:04 AM CST Ordered, please notify pt OR DATA WAREHOUSE ARCHITECT Telephone Encounter - HughMayela - 04/19/2011 9:58 AM CST Pt calls requesting order for Depo Provera injection. She is currently on oral contraceptives and isstill getting her period twice a month. She was on the Depo many years ago and did just fine. She iscurrently bleeding and will be taking her last sugar pill tomorrow. Pt willing to get the injection today. Please order and advise. Mayela Reese RN OR DATA WAREHOUSE ARCHITECT documented in this encounter Plan of Treatment Not on filedocumented as of this encounter Visit Diagnoses Diagnosis Contraception - Primary Unspecified contraceptive management documented in this encounter Care Teams Automotive Service Manager Relationship Specialty Start Date End Date Esmer Roland MD PCP - General Family Practice 09/21/10 01/29/17 documented as of this encounter
--- OUTSIDE RECORDS SUMMARY | 2022-04-02 12:43 | XMS_ITS | Encounter Summary ---
:1975 Author Organization [place] Address [address] [place] [address] Care Team Providers Name Role Phone Esmer Roland MD Primary Care Provider [phone] Reason for Visit Reason Comments Hypertension Blood pressure check Encounter Details Date Type Department Care Team Description 11/05/2012 [facility] Hypertensi on (Blood Health/Nurse Visit Clinic [place] pressure check) [facility], [address] [place] [address] Social History Tobacco Use Types [...] Sign Reading Time Taken Comments Blood Pressure 128/86 11/05/2012 1:13 PM CDT Pulse 88 11/05/2012 1:13 PM CDT Temperature - - Respiratory Rate - - Oxygen Saturation - - Inhaled Oxygen Concentration - - Weight 90.5 kg (199 lb 8 oz) 11/05/2012 1:13 PM CDT Height - - Body Mass Index 31.25 08/07/2012 8:23 AM TECHNICAL SUPPORT CONSULTANT documented in this encounter Progress Notes Mayela Reese - 11/05/2012 1:14 PM CDT Patient here to check weight, bp and pulse for continuing medication Phentermine. Mayela Reese RN documented in this encounter Plan of Treatment Not on filedocumented as of this encounter Visit Diagnoses Diagnosis Obesity - Primary Obesity, unspecified documented in this encounter Care Teams Special Procedures Technologist Relationship Specialty Start Date End Date Esmer Roland MD PCP - General Family Practice 09/21/10 01/29/17 documented as of this encounter
--- OUTSIDE RECORDS SUMMARY | 2022-04-02 12:43 | XMS_ITS | Encounter Summary ---
:1975 Author Organization [place] Address [address] [facility] [place] [address] Care Team Providers Name Role Phone Esmer Roland MD Primary Care Provider Reason for Visit Reason Onset Date Comments Refill Request 04/11/2011 lorazepam Encounter Details Date Type Department Care Team Description 04/11/2011 Refill [facility] Esmer Roland Refill Request Clinic [place] MD Rochelle (lorazepam) [address] [place] [address] SONJA BENAVIDEZ 5 [address]68 [phone] Social History Tobacco Use Types Packs/Day Years Used Date Smoking Tobacco: Former Smokeless Tobacco: Never Comments: Very Occasional Alcohol Use Standard Drinks/Week Comments Yes 0 (1 standard drink = 0.6 oz pure alcoho l) 1 qo weekend Sex Assigned at Date Recorded Not on file documented as of this encounter Miscellaneous Notes Telephone Encounter - Kristine Alston - 04/11/2011 9:20 AM CDT Last Fill Date: 03/07/11 Last Fill Quantity: 30 Last Office Visit: 02/14/11 Kristine Alston, Pharmacy Float Vice President Of Consulting Services [facility] documented in this encounter Plan of Treatment Not on filedocumented as of this encounter Visit Diagnoses Diagnosis ANXIETY STATE NOS Anxiety state, unspecified documented in this encounter Care Teams Team Primary Care Physician Relationship Specialty Start Date End Date Esmer Roland MD PCP - General Family Practice 09/21/10 01/29/17 documented as of this encounter
--- OUTSIDE RECORDS SUMMARY | 2022-04-02 12:43 | XMS_ITS | Encounter Summary ---
:1975 Author Organization [place] Address [facility] [place] [address] Care Team Providers Name Role Phone Esmer Roland MD Primary Care Provider [phone] Reason for Visit Reason Onset Date Comments Depression 02/05/2011 Encounter Details Date Type Department Care Team Description 02/05/2011 Telephone [facility] Esmer Roland, Depression Sara BANERJEE [address] [facility], [address] [place] [address] [address] [place] [address] [place] [address] [phone] Social History Tobacco Use Types Packs/Day Years Used Date Smoking Tobacco: Former Smokeless Tobacco: Never Comments: Very Occasional Alcohol Use Standard Drinks/Week Comments Yes 0 (1 standard drink = 0.6 oz pure alcoho l) 1 qo weekend Sex Assigned at Date Recorded Not on file documented as of this encounter Miscellaneous Notes Telephone Encounter - Melissa Leal - 02/05/2011 4:01 PM CDT PHQ-9 questionaire completed. Melissa Leal CMA Telephone Encounter - Esmer Roland - 02/05/2011 11:13 AM CDT Over due for PHQ-9 documented in this encounter Plan of Treatment Not on filedocumented as of this encounter Visit Diagnoses Diagnosis Major depressive disorder, single episod e, severe, without mention of psychotic behavior - Primary documented in this encounter Care Teams Terrazzo Mechanic Relationship Specialty Start Date End Date Esmer Roland MD PCP - General Family Practice 09/21/10 01/29/17 documented as of this encounter
--- OUTSIDE RECORDS SUMMARY | 2022-04-02 12:43 | XMS_ITS | Encounter Summary ---
:1975 Author Organization [place] Address [address] [place] [address]. [place] [address] Care Team Providers Name Role Phone Esmer Roland MD Primary Care Provider [phone] Reason for Visit Reason Onset Date Comments Refill Request 12/29/2012 LEXAPRO 20MG Encounter Details Date Type Department Care Team Description 12/29/2012 Refill [facility] Esmer Roland Refill Request (LEXAPRO Clinic [place] MD Rochelle 20MG) [address] [facility], [address] [place] [address] [address] [place] [address] [place], [place] [phone] (Wo rk) [address] [phone] Social History Tobacco Use Types Packs/Day Years Used Date Smoking Tobacco: Former Smokeless Tobacco: Never Comments: Very Occasional Alcohol Use Standard Drinks/Week Comments Yes 0 (1 standard drink = 0.6 oz pure 2-3 ti mes a week(1 glass of wine) 1 alcohol) qo weekend Sex Assigned at Date Recorded Not on file documented as of this encounter Miscellaneous Notes Telephone Encounter - Fariha Olsen RPH - 12/29/2012 10:13 AM CDT Patient already has a prescription on file at pharmacy. [facility] Telephone Encounter - Shankar Durham - 12/29/2012 9:10 AM CDT LEXAPRO 20MG Last Fill Date: 11-23-2012 Last Fill Quantity: 30 Last Office Visit: 12-25-2012 Date of Last PHQ-9 score: 08-07-2012 Last PHQ-9 score on record= [address] [facility] [address] [place] [address] documented in this encounter Plan of Treatment Not on filedocumented as of this encounter Visit Diagnoses Diagnosis Major Depress Dis, Severe - Primary Major depressive disorder, single episod e, severe, without mention of psychotic behavior documented in this encounter Care Teams Boarding Mother Relationship Specialty Start Date End Date Esmer Roland MD PCP - General Family Practice 09/21/10 01/29/17 documented as of this encounter
--- OUTSIDE RECORDS SUMMARY | 2022-04-02 12:43 | XMS_ITS | Encounter Summary ---
:1975 Author Organization [place] Address [facility] [place] [address] Care Team Providers Name Role Phone Esmer Roland MD Primary Care Provider [phone] Encounter Details Date Type Department Care Team Description 06/04/2012 E-Visit [facility] Esmer Roland D epress Dis, Clinic Sara Byrd MD Severe (Primary Dx) [facility], [address] [place] [address] [address] [place] [address] [place], [place] [phone] (Wo rk) [address] [phone] Social History Tobacco Use Types Packs/Day Years [...] Telephone Encounter - Esmer Roland MD - 06/11/2012 10:09 AM WINDOWS PHONE DEVELOPER Refills of paxil were sent over [employer] PHONE DEVELOPER documented in this encounter Plan of Treatment Not on filedocumented as of this encounter Visit Diagnoses Diagnosis Major Depress Dis, Severe - Primary Major depressive disorder, single episod e, severe, without mention of psychotic behavior documented in this encounter Care Teams Nurse Unit Manager Relationship Specialty Start Date End Date Emser Roland MD PCP - General Family Practice 09/21/10 01/29/17 documented as of this encounter
--- OUTSIDE RECORDS SUMMARY | 2022-04-02 12:43 | XMS_ITS | Encounter Summary ---
:1975 Author Organization [place] Address [address] [place] [address] Care Team Providers Name Role Phone Esmer Roland MD Primary Care Provider [phone] Reason for Visit Reason Onset Date Comments Medication Request 03/21/2011 AMBIEN 1OMG VS 5MG Encounter Details Date Type Department Care Team Description 03/21/2011 Telephone [facility] Esmer Roland Medicat ion Request Clinic [place] Byrd MD (AMBIEN 1OMG VS 5MG) [address] [place] [address] [place] [phone] Social History Tobacco Use Types Packs/Day Years Used Date Smoking Tobacco: Former Smokeless Tobacco: Never Comments: Very Occasional Alcohol Use Standard Drinks/Week Comments Yes 0 (1 standard drink = 0.6 oz pure alcoho l) 1 qo weekend Sex Assigned at Date Recorded Not on file documented as of this encounter Miscellaneous Notes Telephone Encounter - Esmer Roland - 03/21/2011 1:09 PM CDT Spoke to Dariana, since she is a single mom, she does not want to go higher on this medication, she was not aware that it is a hypnotic. She has taken ativan in the past for anxiety, she will try this at bedtime. If this helps we can refill this. I recommended a f/u appt after tying that a few times. Telephone Encounter - Kristine Bermudez - 03/21/2011 9:14 AM CDT DARIANA CALLED AND IS REQUESTING AMBIEN 10MG TO BE PRESCRIBED VS THE 5MG. IF THIS IS OKAY, WE JUST NEED A NEW RX SENT OVER. THANKS! [facility] documented in this encounter Plan of Treatment Not on filedocumented as of this encounter Visit Diagnoses Diagnosis Insomnia - Primary Insomnia, unspecified documented in this encounter Care Teams Mining Engineering Technologist Relationship Specialty Start Date End Date Esmer Roland MD PCP - General Family Practice 09/21/10 01/29/17 documented as of this encounter
--- OUTSIDE RECORDS SUMMARY | 2022-04-02 12:43 | XMS_ITS | Encounter Summary ---
:1975 Author Organization [place] Address [address] [place] [address]. [place] [address] Care Team Providers Name Role Phone Esmer Roland MD Primary Care Provider [phone] Reason for Visit Reason Onset Date Comments Refill Request 03/06/2011 LORAZEPAM 1MG Encounter Details Date Type Department Care Team Description 03/06/2011 Refill [facility] Esmer Roland Refill Request Clinic Sara Byrd MD (LORAZEPAM 1MG) [address] [place] [address], [address] [place] [address] [address] [place] [address] [place], [place] [phone] (Wo rk) [address] [phone] Social History Tobacco Use Types Packs/Day Years Used Date Smoking Tobacco: Former Smokeless Tobacco: Never Comments: Very Occasional Alcohol Use Standard Drinks/Week Comments Yes 0 (1 standard drink = 0.6 oz pure alcoho l) 1 qo weekend Sex Assigned at Date Recorded Not on file documented as of this encounter Miscellaneous Notes Telephone Encounter - Maricarmen Srinivasan - 03/06/2011 1:42 PM CDT To for auth. Telephone Encounter - Kristine Bermudez - 03/06/2011 10:37 AM CDT Last filled 01/21/11 Qty 30 Kristine [facility] documented in this encounter Plan of Treatment Not on filedocumented as of this encounter Visit Diagnoses Diagnosis ANXIETY STATE NOS Anxiety state, unspecified documented in this encounter Care Teams Southeast Regional Sales Manager Relationship Specialty Start Date End Date Esmer Roland MD PCP - General Family Practice 09/21/10 01/29/17 documented as of this encounter
--- OUTSIDE RECORDS SUMMARY | 2022-04-02 12:44 | XMS_ITS | Encounter Summary ---
:1975 Author Organization [place] Address [address] [place] [address] Care Team Providers Name Role Phone Esmer Roland MD Primary Care Provider Encounter Details Date Type Department Care Team Description 12/30/2010 Results Only INTERFACED REPORT Unknown, Doctor, Social History Tobacco Use Types Packs/Day Years [...] Name Priority Date/Time Associated Diagnosis Comme nts EKG 12-LEAD, Routine 12/30/2010 1:03 PM Results f or this TRACING ONLY CDT procedure are i n the results section. documented in this encounter Results EKG 12-lead, tracing only (12/30/2010 1:03 PM CDT) Component Value Ref Range Test Analysis Performed Pathologis t Method Time At Signature Ventricular Rate 92 BPM RADIOLOGY RESULTS Atrial Rate 92 BPM RADIOLOGY RESULTS MO Interval 112 ms RADIOLOGY RESULTS QRS Duration 82 ms RADIOLOGY RESULTS QT 332 ms RADIOLOGY RESULTS QTc 410 ms RADIOLOGY RESULTS P [place] 42 degrees RADIOLOGY RESULTS R AXIS 69 degrees RADIOLOGY RESULTS T [place] -36 degrees RADIOLOGY RESULTS Interpretation AGE AND RADIOLOGY ECG GENDER SPECIFIC RESULTS ECG ANALYSIS Interpretation Sinus rhythm with RADIOLO GY ECG sinus arrhythmia RESULTS with Premature ventricular complexes or Interpretation Fusion complexes RADIOLOG Y ECG RESULTS Interpretation ST & T wave RADIOLOGY ECG abnormality, RESULTS consider inferior ischemia Interpretation Abnormal ECG RADIOLOGY ECG RESULTS Interpretation Unconfirmed report - interpr etation of this ECG is computer generated - see RADIOLOGY ECG medical record for final interpretation RESULTS Specimen (Source) Anatomical Collection Method Collection Time Re ceived Time Location / / Volume Laterality 12/30/2010 1:03 PM CDT Doctor Unknown MD ECG ORDERABLES Performing Organization Address City/State/ZIP Code Phon e Number RADIOLOGY RESULTS documented in this encounter Visit Diagnoses Not on filedocumented in this encounter Care Teams Agronomy Internship Relationship Specialty Start Date End Date Esmer Roland MD PCP - General Family Practice 09/21/10 01/29/17 documented as of this encounter
--- OUTSIDE RECORDS SUMMARY | 2022-04-02 12:44 | XMS_ITS | Encounter Summary ---
:1975 Author Organization [place] Address [address] [place] [address] Care Team Providers Name Role Phone Fawad Roland MD Primary Care Provider [phone] Reason for Visit Reason Comments Lesion Removal Mole removal right forearm. Encounter Details Date Type Department Care Team Description 09/21/2010 Office Visit [facility] Fawad Roland l mole Clinic Saar Byrd MD (Primary Dx) [place] [address] [facility], [address] [place] [address] [place], [place] [phone] (Wo rk) [address] [phone] Social History Tobacco Use Types Packs/Day Years [...] Sign Reading Time Taken Comments Blood Pressure 108/74 09/21/2010 11:14 AM CDT Pulse 69 09/21/2010 11:14 AM CDT Temperature 36.9 ??C (98.5 ??F) 09/21/2010 11:14 AM CDT Respiratory Rate 16 09/21/2010 11:14 AM CDT Oxygen Saturation 99% 09/21/2010 11:14 AM CDT Inhaled Oxygen Concentration - - Weight 75.8 kg (167 lb) 09/21/2010 11:14 AM CDT Height - - Body Mass Index 26.16 08/14/2010 8:[address] documented in this encounter Progress Notes Fawad Roland - 09/21/2010 11:35 AM CDT SUBJECTIVE: Dariana Valdez is a 34 year old female who would like a complete skin check today. There is nopersonal history of skin cancer. There is no family history of skin cancer. See below for history and description of each lesion. Right forearm mole for years, now bigger, itchy, bleeding, larger for 2weeks now. OBJECTIVE: Appears well, alert, oriented, pleasant and cooperative. Vitals are as noted by the nurse. Complete skin exam is performed. Lesion on right forearm with patient's observations stated as increasing diameter, increasing thickness, darkening color, exam of this area shows atypical nevus, features irregular border, irregularly pigmented, raised, red, bleeding, inflamed, size 5 mm. ASSESSMENT: atypical nevus PLAN: excision or biopsy is indicated. 5mm punch bx done, under sterile conditions, no complications, f/u in 1 week for suture removal, 2 of them. Wound instructions given, path sent. Sun protection with sunscreens and clothing to prevent skin cancer is discussed. The signs and symptoms of malignant skin lesions are reviewed with her today. documented in this encounter Nursing Notes 09/21/2010 11:15 AM CDT >> MELISSA JANSEN FriSep 21, 2010 11:16 AM Patient presents with: Lesion Removal - Mole removal right forearm. Initial BP 108/74 Pulse 69 Temp(Src) 98.5 ??F (36.9 ??C) (Oral) Resp 16 Wt 167 lb (75.751 kg) SpO2 99% Estimated Body mass index is 26.16 kg/(m^2) as calculated from the following: Height as of 11: 5' 7(1.702 m). Weight as of this encounter: 167 lb(75.751 kg). BP completed using cuff size large right arm. Melissa Jansen CMA documented in this encounter Plan of Treatment Not on filedocumented as of this encounter Procedures Procedure Name Priority Date/Time Associated Diagnosis Comme nts HC BIOPSY Routine 09/21/2010 11:33 AM Atypical mole SKIN/SUBQ/MUC MEM, CDT SINGLE LESION SURGICAL PATHOLOGY Routine 09/21/2010 11:15 AM Atypical mole R esults for this EXAM CDT procedure are i n the results section. documented in this encounter Results Surgical pathology exam (09/21/2010 11:15 AM CDT) Component Value Ref Test Analysis Performed At [facility] gist Range Method Time Signature Copath Report Patient Name: DARIANA VALDEZ MR#: [id number] Specimen #: [id number] Collected: 09/21/2010 Received: 09/22/2010 Reported: 09/24/2010 18:22 Ordering Phy(s): FAWAD ROLAND SPECIMEN(S): Mole, right forearm FINAL DIAGNOSIS: Skin, right forearm, shave biopsy - 1. ?Compound nevus with features of conge nital onset, extending into biopsy margins. 2. ? No evidence of malignancy. Electronically signed out by: Litzy Mejia M.D. CLINICAL HISTORY: Atypical mole. GROSS: The specimen, labeled right forearm mole, consists of a 0. 2 cm shave biopsy of sanchez skin. ??DCS/tw MICROSCOPIC: Microscopic examination was performed. ??Internal consultati on obtained (MGP). SA/imani 09-24-10 TESTING LAB LOCATION: [address] ??[id number] COLLECTION SITE: Client: [facility] Location: [facility] (R) Specimen Anatomical Collection Method Collection Time Receive d Time (Source) Location / / Volume Laterality 09/21/2010 11:15 09/22/2010 9:18 AM CDT AM CDT Fawad [place] Performing Organization Address City/State/ZIP Code Phon e Number COPATH documented in this encounter Visit Diagnoses Diagnosis Atypical mole - Primary Benign neoplasm of skin, site unspecifie d documented in this encounter Care Teams Internet Network Specialist Relationship Specialty Start Date End Date Fawad Roland MD PCP - General Family Practice 09/21/10 01/29/17 documented as of this encounter
--- OUTSIDE RECORDS SUMMARY | 2022-04-02 12:44 | XMS_ITS | Encounter Summary ---
:1975 Author Organization [place] Address [address] [place] [address] Care Team Providers Name Role Phone Esmer Roland MD Primary Care Provider [phone] Reason for Visit Reason Onset Date Comments Refill Request 11/20/2010 orlando oconnell Encounter Details Date Type Department Care Team Description 11/20/2010 Refill [facility] Harris Jung MD Refill Request (Jamie oconnell [address] [facility] ANAMARIA perry) [address] [facility] 100 1 31 [address] [place] [phone] Social History Tobacco Use Types Packs/Day Years Used Date Smoking Tobacco: Former Smokeless Tobacco: Never Comments: Quit September last year. Alcohol Use Standard Drinks/Week Comments Yes 0 (1 standard drink = 0.6 oz pure alcoho l) 1 qo week Sex Assigned at Date Recorded Not on file documented as of this encounter Miscellaneous Notes Telephone Encounter - Katy Sandoval - 11/27/2010 3:09 PM CDT Pt will be notified by the pharmacy, as she requested the refill. Karol Sandoval RN Telephone Encounter - Harris Jung MD - 11/21/2010 10:27 AM CDT please notify pt that I authorized the med refill and have phoned the rx into the [facility] pharmacy HARRIS JUNG MD Telephone Encounter - Triston Sandoval - 11/20/2010 1:15 PM CDT Trazodone LAST FILL DATE: 10/03/2010 LAST FILL QTY: 30 Zolpidem LAST FILL DATE: 10/03/2010 LAST FILL QTY: 30 FLOAT TREATING INSPECTOR TRISTON SANDOVAL [facility] documented in this encounter Plan of Treatment Not on filedocumented as of this encounter Visit Diagnoses Diagnosis Major depressive disorder, single episod e, severe, without mention of psychotic behavior Influenza A Influenza with other respiratory manifes tations Insomnia Insomnia, unspecified documented in this encounter Care Teams Mimeograph Operator Relationship Specialty Start Date End Date Esmer Roland MD PCP - General Family Practice 09/21/10 01/29/17 documented as of this encounter
--- OUTSIDE RECORDS SUMMARY | 2022-04-02 12:44 | XMS_ITS | Encounter Summary ---
:1975 Author Organization [place] Address [address] [place] [address] Care Team Providers Name Role Phone Esmer Roland MD Primary Care Provider Reason for Visit Reason Comments Radiology Visit Encounter Details Date Type Department Care Team Description 12/13/2010 Orders Only [facility] Rig ht foot pain (Primary [place] Dx) [facility], [address] [place] [address] Social History Tobacco Use [...] Name Priority Date/Time Associated Diagnosis Comme nts XR FOOT RIGHT G/E 3 Routine 12/13/2010 9:40 AM Right foot pain Results for this VIEWS CDT procedure are i n the results section. documented in this encounter Results X-ray rt Foot G/E 3 vws* (12/13/2010 9:40 AM CDT) Anatomical Region Laterality Modality Foot, Ankle Right Other Specimen (Source) Anatomical Collection Method Collection Time Re ceived Time Location / / Volume Laterality 12/13/2010 9:40 AM CDT Impressions 12/13/2010 10:09 AM CDT FOOT G/E 3 VIEWS RIGHT* ??Dec 13, 2010 9: 40:00 AM HISTORY: ??Pain. COMPARISON: ??None. IMPRESSION: ??Negative. Esmre Roland MD IMG DIAGNOSTIC IMAGING ORDER VERONICA documented in this encounter Visit Diagnoses Diagnosis Right foot pain - Primary Pain in limb documented in this encounter Care Teams Park Warden Relationship Specialty Start Date End Date Esmer Roland MD PCP - General Family Practice 09/21/10 01/29/17 documented as of this encounter
--- OUTSIDE RECORDS SUMMARY | 2022-04-02 12:44 | XMS_ITS | Encounter Summary ---
:1975 Author Organization [place] Address [address] [place] [address] Care Team Providers Name Role Phone Esmer Roland MD Primary Care Provider [phone] Reason for Visit Reason Comments UTI RN protocol UTI Encounter Details Date Type Department Care Team Description 10/10/2010 Allied Health/Nurse [facility] UTI (RN protocol UTI) Visit Clinic [address], [address] [place] [address] Social History Tobacco Use Types [...] Sign Reading Time Taken Comments Blood Pressure - - Pulse - - Temperature 37.4 ??C (99.4 ??F) 10/10/2010 9:44 AM CDT Respiratory Rate - - Oxygen Saturation - - Inhaled Oxygen Concentration - - Weight - - Height - - Body Mass Index - - documented in this encounter Progress Notes Mayela Reese - 10/10/2010 9:43 AM CDT RN UTI Protocol: Female Ages 16 to 65 SUBJECTIVE: Dariana Osman is a 34 year old female who presents clinic for a possible UTI. Symptoms:dysuria, frequency, burning, suprapubic pain and pressure, back pain, fever and voiding in small amounts Onset of symptoms: last night with sudden onset and still present Patient denies complicating factors including: (if yes to any of the following, schedule appt with aprovider) long duration, rigors, flank pain, temperature > 101 degrees F. and Vomiting, significant nausea or diarrhea Hematuria?: No.. LMP: unknown ?: No. (if yes, or possible, schedule appointment with provider) Sexually active? Yes - offer GC/chlam. ENCOURAGE STRONGLY if age <27 and/or new sex partner. Patient agrees to chlamydia testing No. Vaginal discharge present?: No . Patient does qualify for nurse only appointment. Patient will wait for the results. OBJECTIVE: Wt Readings from Last 1 Encounters: 09/21/10 167 lb (75.751 kg) LAB ORDERS: UA Micro if positive UC as indicated Wet Prep as indicated Chlamydia as indicated ALLERGIES: Allergies Allergen Reactions ??? Codeine TREATMENT: UA: 5-10 WBC = order UC and treat for UTI NO Sulfa Allergy: Septra DS one tablet twice daily for 3 days WET PREP: No treatment for negative results PLAN: Medications ordered as indicated per treatment protocol If no abnormal labs, recommend increase fluid intake and advise patient to follow-up with provider if not resolved 2-3d or sooner if worsen Symptomatic therapy recommended: Cranberry juice prn (contraindicated in Coumadin patients), Increase fluid intake and OTC advil or tylenol Education provided. Patient verbalizes understanding of this plan and is agreeable. Encounter handled by: Nurse Triage. Maylea Reese RN documented in this encounter Plan of Treatment Not on filedocumented as of this encounter Procedures Procedure Name Priority Date/Time Associated Diagnosis Comme nts URINE CULTURE Routine 10/10/2010 9:23 AM Other nonspecific Res ults for this CDT finding on procedure are i n examination of urine the res ults section. UA MACROSCOPIC WITH Routine 10/10/2010 9:13 AM Dysuria Re sults for this REFLEX TO MICRO CDT procedure ar e in the results section. URINE MICROSCOPIC Routine 10/10/2010 9:13 AM Resu lts for this EXAM CDT procedure are i n the results section. documented in this encounter Results URINE CULTURE (10/10/2010 9:23 AM CDT) [facility] Method Time Signature Specimen Midstream [place] Description Urine [facility] Culture Micro No growth [facility] Micro Report FINAL [place] Status 10/12/2010 [facility] Specimen Anatomical Collection Method Collection Time Receive d Time (Source) Location / / Volume Laterality 10/10/2010 9:23 AM 1 9:25 CDT AM CDT Esmer Roland MD LAB - MICRO GENERAL ORDERABL ES Performing Organization Address City/[facility]/ZIP [facility] [place] Phon [place] Number M [facility] [address] [place] [address] [facility] (ABNORMAL) Microscopic exam urine (10/10/2010 9:13 AM CDT) [facility] Method Time Signature WBC Urine 5-10 (A) 0 - 2 [place] /HPF [facility] RBC Urine 5-10 (A) 0 - 2 [place] /HPF [facility] Squamous Moderate (A) FEW /LPF [place] Epithelial [place] /LPF Urine CLINIC LAB Bacteria Urine Few (A) NEG /HPF [facility] Mucous Urine Present (A) NEG /LPF [facility] Specimen Anatomical Collection Method Collection Time Receive d Time (Source) Location / / Volume Laterality 10/10/2010 9:13 AM 1 9:15 CDT AM CDT Esmer Roland MD LAB - URINE ORDERABLES Performing Organization Address City/[facility] Phon e Number [facility] [place] [address] [facility] (ABNORMAL) UA macroscopic with reflex to micro (10/10/2010 9:13 AM CDT) [facility] Method Time Signature Color Urine Cathy [facility] Appearance Urine Slightly [place] Cloudy [facility] Glucose Urine Negative NEG mg/dL [facility] Bilirubin Urine Negative NEG [facility] Ketones Urine Trace (A) NEG mg/dL [facility] Specific [place] 1.025 1.003 - [place] Urine 1.035 [facility] Blood Urine Small (A) NEG [facility] pH Urine 5.5 5.0 - 7.0 [place] pH [facility] Protein Albumin Trace (A) NEG mg/dL [place] Urine [facility] Urobilinogen 1.0 0.2 - 1.0 [place] Urine EU/dL [facility] Nitrite Urine Negative NEG [facility] Leukocyte Trace (A) NEG [place] Esterase Urine [facility] Source Midstream [place] Urine [facility] Specimen Anatomical Collection Method Collection Time Receive d Time (Source) Location / / Volume Laterality Urine specimen 10/10/2010 9:13 AM 011 9:15 (specimen) CDT AM CDT Esmer Roland MD LAB - URINE ORDERABLES Performing Organization Address City/State/ZIP Code Phon e Number [facility] [place] [address] [facility] documented in this encounter Visit Diagnoses Diagnosis Dysuria - Primary Other nonspecific finding on examination of urine documented in this encounter Care Teams Clinical Laboratory Technologist Relationship Specialty Start Date End Date Esmer Roland MD PCP - General Family Practice 09/21/10 01/29/17 documented as of this encounter
--- OUTSIDE RECORDS SUMMARY | 2022-04-02 12:44 | XMS_ITS | Encounter Summary ---
:1975 Author Organization [place] Address [facility] [place] [address] Care Team Providers Name Role Phone Esmer Roland MD Primary Care Provider [phone] Reason for Visit Reason Onset Date Comments Injury 12/13/2010 pinky toe rt foot Encounter Details Date Type Department Care Team Description 12/13/2010 Telephone [facility] Esmer Roland Injury (pinky toe rt Clinic Sara Byrd MD foot) [address] [facility], [address] [place] [address] [address] [place] [address] [place], [place] [phone] (Wo rk) [address] [phone] Social History Tobacco Use Types Packs/Day Years Used Date Smoking Tobacco: Former Smokeless Tobacco: Never Comments: Quit September last year. Alcohol Use Standard Drinks/Week Comments Yes 0 (1 standard drink = 0.6 oz pure alcoho l) 1 qo week Sex Assigned at Date Recorded Not on file documented as of this encounter Miscellaneous Notes Telephone Encounter - Esmer Roland - 12/13/2010 1:37 PM CDT No fracture noted Telephone Encounter - Esmer Roland - 12/13/2010 9:46 AM CDT Ok to get x-ray done. Telephone Encounter - Jonathan Patel - 12/13/2010 8:18 AM CDT Pt stubbed toe about two weeks ago and thinks her toe may be broken. Pt requesting xray. documented in this encounter Plan of Treatment Scheduled Orders Name Type Priority Associated Diagnoses Order S chedule X-ray rt toe(s) G/E 2 views Imaging Routine Toe injury Ordered: 12/13/2010 documented as of this encounter Visit Diagnoses Diagnosis Toe injury - Primary Injury, other and unspecified, knee, leg , ankle, and foot documented in this encounter Care Teams Director Of Emergency Nursing Relationship Specialty Start Date End Date Esmer Roland MD PCP - General Family Practice 09/21/10 01/29/17 documented as of this encounter
--- OUTSIDE RECORDS SUMMARY | 2022-04-02 12:44 | XMS_ITS | Encounter Summary ---
:1975 Author Organization [facility] Address [address] [place] [address] Care Team Providers Name Role Phone Esmer Roland MD Primary Care Provider [phone] Reason for Visit Reason Comments STD Encounter Details Date Type Department Care Team Description 10/12/2010 Office Visit [facility] Esmer Roland is (Primary Clinic Sara Byrd MD Dx) [address] [place] [address] [facility], [address] [place] [address] [place], [place] [phone] (Wo rk) [address] [phone] Social History Tobacco Use Types Packs/Day Years [...] Reading Time Taken Comments Blood Pressure 110/70 10/12/2010 8:26 AM CDT Pulse 97 10/12/2010 8:26 AM CDT Temperature 37.4 ??C (99.3 ??F) 10/12/2010 8:26 AM CDT Respiratory Rate 16 10/12/2010 8:26 AM CDT Oxygen Saturation 97% 10/12/2010 8:26 AM CDT Inhaled Oxygen Concentration - - Weight 75 kg (165 lb 4.8 oz) 10/12/2010 8:26 AM CDT Height - - Body Mass Index 25.89 08/14/2010 8:58 AM INVESTIGATOR WELFARE documented in this encounter Progress Notes Esmer Roland - 10/12/2010 8:48 AM CDT SUBJECTIVE: 34 year old female complains of white vaginal discharge for 3 days. Denies abnormal vaginal bleeding or significant pelvic pain or fever. No UTI symptoms. Denies history of known exposure to STD. Denies dyspareunia. Patient's last menstrual period was 09/21/2010. OBJECTIVE: She appears well, afebrile. Abdomen: benign, soft, nontender, no masses. Pelvic Exam: normal vagina and vulva, vaginal discharge described as white and yellow, normal cervixwithout lesions or tenderness. Urine dipstick: not done. Wet prep negative, previous urine Cx back today, is normal ASSESSMENT: rule out GC or chlamydia and nonspecific vaginitis PLAN: GC and chlamydia genprobe swabs sent to lab. Treatment: see orders for additional treatments ROV prn if symptoms persist or worsen. documented in this encounter Nursing Notes 10/12/2010 8:30 AM CDT >> MELISSA JANSEN Fri October 12, 2010 8:30 AM Patient presents with: STD Initial BP 110/70 Pulse 97 Temp(Src) 99.3 ??F (37.4 ??C) (Oral) Resp 16 Wt 165 lb 4.8 oz (74.98 kg) SpO2 97% LMP 09/21/2010 Estimated Body mass index is 25.89 kg/(m^2) as calculated from the following: Height as of 11: 5' 7(1.702 m). Weight as of this encounter: 165 lb 4.8 oz(74.98 kg). BP completed using cuff size large right arm. Melissa Jansen CMA documented in this encounter Plan of Treatment Not on filedocumented as of this encounter Procedures Procedure Name Priority Date/Time Associated Comments Diagnosis WET PREPARATION Routine 10/12/2010 8:48 AM Vaginitis Result s for this CDT procedure are i n the results section. NEISSERIA GONORRHOEAE Routine 10/12/2010 8:48 AM Vaginitis Results for this PCR CDT procedure are i n the results section. CHLAMYDIA TRACHOMATIS Routine 10/12/2010 8:48 AM Vaginitis Results for this PCR CDT procedure are i n the results section. documented in this encounter Results Chlamydia trachomatis PCR (10/12/2010 8:48 AM CDT) Component Value Ref Test Analysis Performed At [facility] Method Time Signature Specimen Vagina [facility] Chlamydia Negative for C. trachomatis rRNA by collective bargaining specialist mediated amplification. [facility] Trachomatis A negative result by transc ription mediated amplification does not preclude the [place] PCR presence of C. trachomatis infection because results are dependent on proper CAMPUS LABS and adequate collection, absence of inhibitors, and suffici ent rRNA to be detected. Specimen Anatomical Collection Method Collection Time Receive d Time (Source) Location / / Volume Laterality 10/12/2010 8:48 AM 1 8:50 CDT AM CDT Esmer Roland MD LAB - MICRO ORDERABL ES Performing Organization Address City/[facility]/ZIP Code Phon e Number [address] [facility]S Neisseria gonorrhoeae PCR (10/12/2010 8:48 AM CDT) Component Value Ref Test Analysis Performed At [facility] Method Time Signature Specimen Vagina [facility] LAB N Gonorrhea Negative for N. gonorrhoeae rRNA by collective bargaining specialist mediated amplification. [facility] PCR A negative result by transc ription mediated amplification does not preclude the [place] presence of N. gonorrhoeae infection because re sults are dependent on proper CAMPUS LABS and adequate collection, absence of inhibitors, and suffici ent rRNA to be detected. Specimen Anatomical Collection Method Collection Time Receive d Time (Source) Location / / Volume Laterality 10/12/2010 8:48 AM 1 8:50 CDT AM CDT Esmer Roland MD LAB - MICRO GENERAL ORDERABL ES Performing Organization Address City/[facility]/ZIP Code Phon e Number [address] [facility] Wet prep (10/12/2010 8:48 AM CDT) Component Value Ref Test Analysis Performed At [facility] Method Time Signature Specimen Vagina [place] Description [facility] Wet Prep No Trichomonas seen [place] No clue cells seen [place] No yeast seen [facility] Micro Report FINAL [place] Status 10/12/2010 [facility] Specimen Anatomical Collection Method Collection Time Receive d Time (Source) Location / / Volume Laterality 10/12/2010 8:48 AM 1 8:50 CDT AM CDT Esmer Roland MD LAB - MICRO GENERAL ORDERABL ES Performing Organization Address City/State/ZIP Code Phon e Number [facility] [place] [address] [facility] documented in this encounter Visit Diagnoses Diagnosis Vaginitis - Primary Vaginitis and vulvovaginitis, unspecifie d documented in this encounter Care Teams Copy Operator Relationship Specialty Start Date End Date Esmer Roland MD PCP - General Family Practice 09/21/10 01/29/17 documented as of this encounter
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
--- OUTSIDE RECORDS SUMMARY | 2022-04-02 12:44 | XMS_ITS | Encounter Summary ---
:1975 Author Organization [place] Address [address] [place] [address] Care Team Providers Name Role Phone Melvin Palacios MD Primary Care Provider Encounter Details Date Type Department Care Team Description 07/05/2010 Historic Notes INTERFACED REPORT James Bautista MD [address] [facility] [address] [place] [address] (Wo rk) Social History Tobacco Use Types Packs/Day Years Used Date Smoking Tobacco: Every Day Comments: 1-2 every other day Alcohol Use Standard Drinks/Week Comments Yes 0 (1 standard drink = 0.6 oz pure alcoho l) 1 qo week Sex Assigned at Date Recorded Not on file documented as of this encounter Progress Notes Allen Bautista - 08/23/2010 10:28 PM CDT Problem List MENTAL HEALTH: ; Active Admitting; MENTAL HEALTH OVERDOSE: ; Inactive Admitting; OVERDOSE Interval History - Interval History: adhere to medication prepare for discharge coordinate with contract loader Review of Systems - Constitutional: Negative - Skin: Negative - Musculoskeletal: Negative - Eyes: Negative - ENT: Negative - Endocrine: Negative - Respiratory: Negative - Heme: Negative - Lymph: Negative - GI: Negative - : Negative - Neuro: Negative - Psych: Negative - Psych Comments: FOR NOW has accepted the current station to her relationship Mental Status Exam - Appearance: alert - [...] of Knowledge: intact - Formal Mental Status adhere to medictions Exam Remarkable for: Vital Signs/Labs/Imaging/Culture Results - Vital Signs: Vital Signs reviewed past 24 hours. VS 1. Vital Signs Adult Med Surg 12:00 - BP Sitting Systolic 124 mmHg - BP Sitting Diastolic 70 mmHg - BP Sitting HR bpm 62 - BP Standing Systolic 118 mmHg - BP Standing 75 Diastolic mmHg - BP Standing HR bpm 73 Risk Assessment - Discussion/Plan of still hypersensitive to light and noise Care: Signatures ALLEN BAUTISTA)[Signed 14:35] Authored: Problem List, Interval History, Review of Systems, Mental Status Exam, Vital Signs/Labs/Imaging/Culture Results, VS, Risk Assessment documented in this encounter Plan of Treatment Not on filedocumented as of this encounter Visit Diagnoses Not on filedocumented in this encounter Care Teams Cash Room Clerk Relationship Specialty Start Date End Date Melvin Palacios MD PCP - General 06/22/99 09/20/10 [address] [id number] documented as of this encounter
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
--- OUTSIDE RECORDS SUMMARY | 2022-04-02 12:44 | XMS_ITS | Encounter Summary ---
:1975 Author Organization [facility] Address [address] [place] [address] Care Team Providers Name Role Phone Melvin Palacios MD Primary Care Provider Esmer Roland MD Primary Care Provider [phone] Encounter Details Date Type Department Care Team Description 09/17/2010 Orders Only [facility] Fat igue; [facility] Family history of thyroid di noellee [facility], [address] [place] [address] Social History Tobacco Use [...] Comme nts TSH WITH FREE T4 Routine 09/17/2010 2:04 PM Fatigue Results for this REFLEX CDT Family history of procedure are in thyroid disease the results section. documented in this encounter Results TSH with free T4 reflex (09/17/2010 2:04 PM CDT) P athologist Signature TSH 1.47 0.4 - 5.0 [facility] LAB Specimen Anatomical Collection Method Collection Time Receive d Time (Source) Location / / Volume Laterality Blood specimen 09/17/2010 2:04 PM 011 2:06 (specimen) CDT PM CDT Esmer Roland MD LAB - BLOOD ORDERABLES Performing Organization Address City/State/ZIP Code Phon e Number [facility] [address] [place] [address] [facility] documented in this encounter Visit Diagnoses Diagnosis Fatigue Other malaise and fatigue Family history of thyroid disease Family history of other endocrine and me tabolic diseases documented in this encounter Care Teams Hoisting Engineer Pile Driving Relationship Specialty Start Date End Date Melvin Palacios MD PCP - General 06/22/99 09/20/10 [address] [place] [address] Esmer Roland MD PCP - General Family Practice 09/21/10 01/29/17 documented as of this encounter
--- OUTSIDE RECORDS SUMMARY | 2022-04-02 12:44 | XMS_ITS | Encounter Summary ---
:1975 Author Organization [facility] Address [address] [place] [address] Care Team Providers Name Role Phone Esmer Roland MD Primary Care Provider Encounter Details Date Type Department Care Team Description 12/30/2010 [facility] [address] [phone] (Wo rk) Social History Tobacco Use Types [...] Procedure Name Priority Date/Time Associated Comments Diagnosis TROPONIN POCT Routine 12/30/2010 3:28 PM Results for this CDT procedure are i n the results section. CBC WITH PLATELETS & STAT 12/30/2010 1:25 PM R esults for this DIFFERENTIAL CDT procedure are i n the results section. TROPONIN I Routine 12/30/2010 1:25 PM Results f or this CDT procedure are i n the results section. INR STAT 12/30/2010 1:25 PM Results f or this CDT procedure are i n the results section. D DIMER QUANTITATIVE STAT 12/30/2010 1:25 PM R esults for this CDT procedure are i n the results section. BASIC METABOLIC PANEL Routine 12/30/2010 1:25 PM Results for this CDT procedure are i n the results section. documented in this encounter Results Troponin POCT (12/30/2010 3:28 PM CDT) athologist Signature Troponin I 0.00 0.00 - 0.10 [facility] ug/[facility] Specimen Anatomical Collection Method Collection Time Receive d Time (Source) Location / / Volume Laterality 12/30/2010 3:28 PM 1 3:55 CDT PM CDT Esmer Roland MD LAB - ENTER/EDIT POCT Performing Organization Address City/[facility] Phon e [facility] [address] [place], [place] [address] [facility] Troponin I (12/30/2010 1:25 PM CDT) [place] [facility] Method Time Signature Troponin I ES <0.012 0.000 - [place] Reviewed, acceptable 0.034 [facility] Specimen Anatomical Collection Method Collection Time Receive d Time (Source) Location / / Volume Laterality 12/30/2010 1:25 PM 1 3:11 CDT PM CDT Esmer Roland MD LAB - BLOOD ORDERABLES Performing Organization Address City/[facility] Phon e [facility] [address] [place], [place] [address] [facility] (ABNORMAL) Basic metabolic panel (12/30/2010 1:25 PM CDT) athologist Signature Sodium 140 133 - 144 [place] mmol/L [facility] Potassium 4.0 3.4 - 5.3 [place] mmol/L [facility] Chloride 107 94 - 109 [place] mmol/L [facility] Carbon Dioxide 24 20 - 32 [place] mmol/L [facility] Anion Gap 8 6 - 17 [place] mmol/L [facility] Glucose 107 (H) 60 - 99 [place] mg/dL [facility] Urea Nitrogen 9 5 - 24 [place] mg/dL [facility] Creatinine 0.77 0.52 - [place] 1.04 mg/dL [facility] GFR Estimate 86 >60 [place] mL/min/1.[address] LAB GFR Estimate If >90 >60 [place] Black mL/min/1.[address] LAB Calcium 8.4 (L) 8.5 - 10.4 [place] mg/dL [facility] Specimen Anatomical Collection Method Collection Time Receive d Time (Source) Location / / Volume Laterality 12/30/2010 1:25 PM 1 3:11 CDT PM CDT Esmer Roland MD LAB - BLOOD ORDERABLES Performing Organization Address City/[facility]/ZIP [place] [address] [address] [place], [place] [address] [facility] INR (12/30/2010 1:25 PM CDT) P athologist Signature INR 0.91 0.86 - 1.14 [facility] Specimen Anatomical Collection Method Collection Time Receive d Time (Source) Location / / Volume Laterality 12/30/2010 1:25 PM 1 2:07 CDT PM CDT Martin Blair MD LAB - BLOOD ORDERABLES Performing Organization Address City/[facility]/ZIP [place] [address] [address] [place], [place] [address] [facility] (ABNORMAL) CBC with platelets differential (12/30/2010 1:25 PM CDT) Patholo gist Method Time Signature WBC 5.1 4.0 - [place] 11.0 [facility] 10e9/L [facility] RBC Count 4.29 3.8 - 5.2 [place] 10e12/L [facility] Hemoglobin 12.9 11.7 - [place] 15.7 g/dL [facility] Hematocrit 38.2 35.0 - [place] 47.0 % [facility] MCV 89 78 - 100 [place] fl [facility] MCH 30.1 26.5 - [facility] 33.0 pg [facility] MCHC 33.8 31.5 - [place] 36.5 g/dL [facility] RDW 12.8 10.0 - [facility] 15.0 % [facility] Platelet Count 230 150 - 450 [place] 10e9/L [facility] Diff Method Automated [facility] % Neutrophils 56.7 40 - 75 % [facility] % Lymphocytes 23.9 20 - 48 % [facility] % Monocytes 14.9 (H) 0 - 12 % [facility] % Eosinophils 3.7 0 - 6 % [facility] % Basophils 0.8 0 - 2 % [facility] Absolute 2.9 1.6 - 8.3 [place] Neutrophil 10e9/L [facility] Absolute 1.2 0.8 - 5.3 [place] Lymphocytes 10e9/L [facility] Absolute 0.8 0.0 - 1.3 [place] Monocytes 10e9/L [facility] Absolute 0.2 0.0 - 0.7 [place] Eosinophils 10e9/L [facility] Absolute 0.0 0.0 - 0.2 [place] [facility] Basophils [address] [place] [address] LAB Specimen Anatomical Collection Method Collection Time Receive d Time (Source) Location / / Volume Laterality 12/30/2010 1:25 PM 1 2:07 CDT PM CDT Martin Blair MD LAB - BLOOD ORDERABLES Performing Organization Address City/[facility]/ZIP [facility] Phon e Vicki Rodgers [place] [address] [address] [place], [place] [address] [facility] D dimer quantitative (12/30/2010 1:25 PM CDT) P athologist Signature D Dimer 0.4 0.0 - 0.50 [facility] ug/ml [facility] Specimen Anatomical Collection Method Collection Time Receive d Time (Source) Location / / Volume Laterality 12/30/2010 1:25 PM 1 2:07 CDT PM CDT Martin Blair MD LAB - BLOOD ORDERABLES Performing Organization Address City/[facility]/ZIP [facility] Phon e Number [place] [address] [address] [place], [place] [address] [facility] documented in this encounter Visit Diagnoses Not on filedocumented in this encounter Care Teams Aquatic Ecologist Relationship Specialty Start Date End Date Esmer Roland MD PCP - General Family Practice 09/21/10 01/29/17 documented as of this encounter
--- OUTSIDE RECORDS SUMMARY | 2022-04-02 12:44 | XMS_ITS | Encounter Summary ---
:1975 Author Organization [facility] Address [address] [place] [address] Care Team Providers Name Role Phone Esmer Roland MD Primary Care Provider Encounter Details Date Type Department Care Team Description 12/30/2010 [facility] [address] [phone] [...] Priority Date/Time Associated Diagnosis Comme nts XR CHEST 2 VIEWS Routine 12/30/2010 3:05 PM Resul ts for this CDT procedure are i n the results section. documented in this encounter Results X-ray Chest 2 vws* (12/30/2010 3:05 PM CDT) Anatomical Region Laterality Modality Chest Other Specimen (Source) Anatomical Collection Method Collection Time Re ceived Time Location / / Volume Laterality 12/30/2010 3:05 PM CDT Impressions 12/31/2010 7:16 AM CDT CHEST TWO VIEW* Dec 30, 2010 3:05:00 PM HISTORY: Chest pain. FINDINGS: Negative. Martin Blair MD IMG DIAGNOSTIC IMAGING ORDER VERONICA documented in this encounter Visit Diagnoses Not on filedocumented in this encounter Care Teams Key Maker Relationship Specialty Start Date End Date Esmer Roland MD PCP - General Family Practice 09/21/10 01/29/17 documented as of this encounter
--- OUTSIDE RECORDS SUMMARY | 2022-04-02 12:44 | XMS_ITS | Encounter Summary ---
:1975 Author Organization [place] Address [address] [place] [address] Care Team Providers Name Role Phone Melvin Palacios MD Primary Care Provider Reason for Visit Reason Comments URI Encounter Details Date Type Department Care Team Description 08/14/2010 Office Visit [facility] Emser Roland A (Primary Dx); Clinic Sara Byrd MD Major depress dis, severe [place] [address] [address], [address] [place] [address] [place], [place] [phone] (Wo rk) [id number] [phone] Social History Tobacco Use Types Packs/Day Years [...] Sign Reading Time Taken Comments Blood Pressure 120/62 08/14/2010 8:58 AM VIDEO POKER FLOORMAN Pulse 94 08/14/2010 8:58 AM VIDEO POKER FLOORMAN Temperature 37.2 ??C (98.9 ??F) 08/14/2010 8:58 AM VIDEO POKER FLOORMAN Respiratory Rate 16 08/14/2010 8:58 AM VIDEO POKER FLOORMAN Oxygen Saturation 99% 08/14/2010 8:58 AM VIDEO POKER FLOORMAN Inhaled Oxygen Concentration - - Weight 74.8 kg (165 lb) 08/14/2010 8:58 AM VIDEO POKER FLOORMAN Height 170.2 cm (5' 7) 08/14/2010 8:58 AM VIDEO POKER FLOORMAN Body Mass Index 25.84 08/14/2010 8:58 AM VIDEO POKER FLOORMAN documented in this encounter Progress Notes Esmer Roland Rochelle - 08/14/2010 10:20 AM CST SUBJECTIVE: Dariana Osman is a 34 year old female who presents with a complaint of Flu. Onset of symptoms was 2 days ago. Treatment measures tried include OTC meds. Course of illness is worsening. Associated symptoms: Otalgia: absent Rhinorrhea: present: and clear Fever: tactile fevers, chills, hot and cold spells and myalgias Cough: strong and hacky Sore throat: Yes: Nausea/emesis: No Diarrhea: No Other symptoms: Yes: headache Recent illnesses: none Exposures to: none applicable at none known. Predisposing conditions include: None PE: BP 120/62 Pulse 94 Temp(Src) 98.9 ??F (37.2 ??C) (Oral) Resp 16 Ht 5' 7 (1.702 m) Wt 165 lb (74.844 kg) SpO2 99% General appearance: alert, no acute distress Eyes: Conjunctiva without erythema or mattering. Ears: Tympanic membranes with good landmarks bilaterally. Normal color. Mildly red Nose: Nares without erythema , clear drainage. Throat: with erythema , but no exudate. No tonsilar hypertrophy. Neck: No lymphadenopathy or masses. Lungs: clear to auscultation. Heart: regular rate and rhythm without murmurs, rubs or gallops ASSESSMENT: Influenza-A 487.1AH Influenza A (primary encounter diagnosis) Comment: Plan: Influenza A/B antigen, guaiFENesin/codeine (ROBITUSSIN AC) 100-10 MG/5ML SOLN, oseltamivir (TAMIFLU) 75 MG capsule 296.23 Major depress dis, severe Comment: doing well, cont same, seeing specialist Plan: f/u prn PLAN: See orders: lab, imaging, med and follow-up plans for this encounter. If not improving, or if worse, or if better, then gets worse again, needs to be seen. Discussed implications of influenza and signs/symptoms of respiratory distress, dehydration and sepsis. If any of these occur, they will seek care immediately. O POKER FLOORMAN documented in this encounter Plan of Treatment Not on filedocumented as of this encounter Procedures Procedure Name Priority Date/Time Associated Diagnosis Comme nts INFLUENZA A/B Routine 08/14/2010 10:07 AM Major depress dis, R esults for this ANTIGEN VIDEO POKER FLOORMAN severe procedure are in Influenza A the results section. documented in this encounter Results (ABNORMAL) Influenza A/B antigen (08/14/2010 10:07 AM VIDEO POKER FLOORMAN) [facility] Method Time Signature Influenza A/B Nasopharyngeal [place] Agn Specimen [facility] Influenza A Positive (A) NEG [facility] Influenza B Negative NEG [facility] Specimen Anatomical Collection Method Collection Time Receive d Time (Source) Location / / Volume Laterality 08/14/2010 10:07 08/14/2010 AM VIDEO POKER FLOORMAN 10:12 AM VIDEO POKER FLOORMAN Esmer Roland MD LAB - MICRO GENERAL ORDERABL ES Performing Organization Address City/State/ZIP Code Phon e Number [facility] [place] [address] [facility] documented in this encounter Visit Diagnoses Diagnosis Influenza A - Primary Influenza with other respiratory manifes tations Major depressive disorder, single episod e, severe, without mention of psychotic behavior documented in this encounter Care Teams Marketing Professor Relationship Specialty Start Date End Date Melvin Palacios MD PCP - General 06/22/99 09/20/10 [address] [id number] documented as of this encounter
--- OUTSIDE RECORDS SUMMARY | 2022-04-02 12:45 | XMS_ITS | Encounter Summary ---
:1975 Author Organization [place] Address [address] [place] [address] Care Team Providers Name Role Phone Melvin Palacios MD Primary Care Provider Encounter Details Date Type Department Care Team Description 09/20/2009 Historic Results [facility] Shane Garcia MD [address] [address] [address] [phone] [place], [place] [address] (Wo rk) Social History [...] Priority Date/Time Associated Comments Diagnosis WET PREPARATION STAT 09/20/2009 3:39 PM Result s for this CDT procedure are i n the results section. NEISSERIA GONORRHOEAE STAT 09/20/2009 3:39 PM Results for this PCR CDT procedure are i n the results section. CHLAMYDIA TRACHOMATIS STAT 09/20/2009 3:39 PM Results for this PCR CDT procedure are i n the results section. LIPASE STAT 09/20/2009 1:15 PM Results f or this CDT procedure are i n the results section. COMPREHENSIVE STAT 09/20/2009 1:15 PM Results for this METABOLIC PANEL CDT procedure ar e in the results section. HCG QUALITATIVE URINE STAT 09/20/2009 11:50 Re sults for this AM CDT procedure are i n the results section. URINE CULTURE Routine 09/20/2009 11:50 Results fo r this AM CDT procedure are i n the results section. documented in this encounter Results Wet prep (09/20/2009 3:39 PM CDT) [facility] Method Time Signature Specimen Vagina MISYS Description Micro Report FINAL MISYS Status 09/20/2009 Wet Prep Many PMNs MISYS seen Comment: No yeast seen No clue cells seen No Trichomonas seen Specimen Anatomical Collection Method Collection Time Receive d Time (Source) Location / / Volume Laterality 09/20/2009 3:39 PM 0 3:56 CDT PM CDT Martin Hauser MD LAB - MICRO GENERA L ORDERABLES Performing Organization Address City/[facility]/ZIP Code Phon e Number MISYS Chlamydia trachomatis PCR (09/20/2009 3:39 PM CDT) Component Value Ref Test Analysis Performed At [facility] [employer] Range Method Time Signature Specimen Cervical MISYS Description Chlamydia Negative for C. MISYS Trachomatis PCR trachomatis rRNA by combine driver mediated amplification. Comment: A negative result by combine driver medi ated amplification does not preclude the presence of C. trachomatis infection be cause results are dependent on proper and adequate collection, absence of inh ibitors, and sufficient rRNA to be detected. Specimen Anatomical Collection Method Collection Time Receive d Time (Source) Location / / Volume Laterality 09/20/2009 3:39 PM 0 3:56 CDT PM CDT Martin Hauser MD LAB - MICRO GENERA L ORDERABLES Performing Organization Address City/State/ZIP Code Phon e Number MISYS Neisseria gonorrhoeae PCR (09/20/2009 3:39 PM CDT) [facility] Method Time Signature Specimen Cervical MISYS Descrip N Gonorrhea Negative for N. MISYS PCR gonorrhoeae rRNA by combine driver mediated amplification. Comment: A negative result by combine driver medi ated amplification does not preclude the presence of N. gonorrhoeae infection be cause results are dependent on proper and adequate collection, absence of inh ibitors, and sufficient rRNA to be detected. Specimen Anatomical Collection Method Collection Time Receive d Time (Source) Location / / Volume Laterality 09/20/2009 3:39 PM 0 3:56 CDT PM CDT Martin Hauser MD LAB - MICRO GENERA L ORDERABLES Performing Organization Address City/State/ZIP Code Phon e Number MISYS Comprehensive metabolic panel (09/20/2009 1:15 PM CDT) athologist Signature Sodium 137 133 - 144 M[facility] mmol/L Potassium 3.6 3.4 - 5.3 MIS[facility] mmol/L Chloride 104 94 - 109 [facility] mmol/L Carbon Dioxide 23 20 - 32 MIS[facility] mmol/L Glucose 82 60 - 99 MIS[facility] mg/dL Urea Nitrogen 10 5 - 24 MISYS mg/dL Creatinine 0.87 0.52 - 1.04 MISYS mg/dL Comment: New IDMS-traceable calibration beginning 10/08/07 GFR Estimate 76 >60 mL/min/1.7m2 MISYS GFR Estimate If Black >90 >60 mL/min/1.7m2 M ISYS Calcium 9.9 8.5 - 10.4 mg/dL MISYS AST 36 0 - 45 U/L MISYS Protein Total 7.6 6.8 - 8.8 g/dL MISYS Anion Gap 10 6 - 17 mmol/L MISYS Albumin 4.8 3.9 - 5.1 g/dL MIS[facility] ALT 11 0 - 50 U/L MISYS Alkaline Phosphatase 64 40 - 150 U/L MISYS Bilirubin Total 0.6 0.2 - 1.3 mg/dL MISYS Specimen Anatomical Collection Method Collection Time Receive d Time (Source) Location / / Volume Laterality 09/20/2009 1:15 PM 0 1:11 CDT PM CDT Harris James MD LAB - BLOOD ORDERABLES Performing Organization Address City/State/ZIP Code Phon e Number MISYS (ABNORMAL) Lipase (09/20/2009 1:15 PM CDT) athologist Signature Lipase 251 (H) 20 - 250 MIS[facility] U/L Specimen Anatomical Collection Method Collection Time Receive d Time (Source) Location / / Volume Laterality 09/20/2009 1:15 PM 0 1:11 CDT PM CDT Harris James MD LAB - BLOOD ORDERABLES Performing Organization Address City/State/ZIP Code Phon e Number MISYS HCG qualitative urine (09/20/2009 11:50 AM CDT) P athologist Signature HCG Qual Urine Negative NEG MISYS Comment: This test provides a presumptive diagno sis of or non-. A confirmed diagnosis should on ly be made by a physician after all clinical and laboratory findings have b een evaluated. Specimen Anatomical Collection Method Collection Time Receive d Time (Source) Location / / Volume Laterality 09/20/2009 11:50 09/20/2009 AM CDT 11:52 AM CDT Harris James MD LAB - URINE ORDERABLES Performing Organization Address City/State/ZIP Code Phon e Number MISYS Urine culture (09/20/2009 11:50 AM CDT) Component Value Ref Test Analysis Performed At Patholo gist Range Method Time Signature Specimen Unspecified MISYS Description Urine Culture Micro <10,000 MISYS colonies/mL Beta hemolytic Streptococcus group B Comment: 10 to 50,000 colonies/mL Multiple specie s present, probable perineal contamination. Micro Report Status FINAL 09/23/2009 MIS YS Specimen Anatomical Collection Method Collection Time Receive d Time (Source) Location / / Volume Laterality 09/20/2009 11:50 09/20/2009 4:23 AM CDT PM CDT Organism Antibiotic Method Susceptibility <10,000 colonies/ml beta hemolytic Ampicillin 0.12 Susceptible streptococcus group b (kirsten gram pos panel) <10,000 colonies/ml beta hemolytic Ceftriaxone <=0.25 Susceptible streptococcus group b (kirsten gram pos panel) <10,000 colonies/ml beta hemolytic Cefotaxime <=0.25 Susceptible streptococcus group b (kirsten gram pos panel) <10,000 colonies/ml beta hemolytic Levofloxacin 1 Susceptible streptococcus group b (kirsten gram pos panel) <10,000 colonies/ml beta hemolytic Penicillin 0.06 Susceptible streptococcus group b (kirsten gram pos panel) <10,000 colonies/ml beta hemolytic Tetracycline <=0.5 Susceptible streptococcus group b (kirsten gram pos panel) <10,000 colonies/ml beta hemolytic Vancomycin 0.5 Susceptible streptococcus group b (kirsten gram pos panel) Martin Hauser MD LAB - MICRO GENERA L ORDERABLES Performing Organization Address City/State/ZIP Code Phon e Number MISYS documented in this encounter Visit Diagnoses Not on filedocumented in this encounter Care Teams Retail Wireless Sales Consultant Relationship Specialty Start Date End Date Melvin Palacios MD PCP - General 06/22/99 09/20/10 [id number] [id number] documented as of this encounter
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
--- OUTSIDE RECORDS SUMMARY | 2022-04-02 12:45 | XMS_ITS | Encounter Summary ---
:1975 Author Organization [facility] Address [address] [place] [id number] Care Team Providers Name Role Phone Melvin Palacios MD Primary Care Provider Reason for Visit Reason Comments Abdominal Pain LLQ Pain x 3 days-1week. Sha rp. Has had a Mirena since 11/2008. ? Ovarian Cyst. Encounter Details Date Type Department Care Team Description 09/20/2009 Office Visit [facility] Martin Hauser Abdominal Pain (Primary Dx); Clinic [place] Shane Garcia MD Ovarian Cyst [facility], [address] [place], [place] [address] [address] [facility] [phone] [place], [place] [address] (Wo rk) Social History [...] Sign Reading Time Taken Comments Blood Pressure 108/78 09/20/2009 9:27 AM CDT Pulse 61 09/20/2009 9:27 AM CDT Temperature 36.9 ??C (98.4 ??F) 09/20/2009 9:27 AM CDT Respiratory Rate - - Oxygen Saturation 99% 09/20/2009 9:27 AM CDT Inhaled Oxygen Concentration - - Weight 66.7 kg (147 lb) 09/20/2009 9:27 AM CDT Height - - Body Mass Index 23.37 06/19/2009 3:40 PM DIE BAKER documented in this encounter Progress Notes Harshal Hauserdonykatherin - 09/20/2009 9:56 AM CDT SUBJECTIVE HPI: Dariana Osman is a 33 year old female who presents with the CC of abdominal/pelvic pain. Pain is located in the LLQ area, with radiation to None. The pain is characterized as sharp, and at worst is a level 8 on a scale of 1-10. Pain has been present for 3 day(s) and is slowly progressive. EXACERBATING FACTORS: sitting RELIEVING FACTORS: nothing. ASSOCIATED SX: no nausea, vomiting, diarrhea, constipation, melena, hematochezia, dysuria, frequency, belching, flatus, fever, chills and sweats. She has an IUD. Past Medical History Diagnosis Date ??? Calculus of Kidney ??? Depressive Disorder, not Elsewhere Classified ??? Anxiety State, Unspecified Current outpatient prescriptions Medication Sig ??? MIRENA 20 MCG/24HR IU IUD 1 x 5 years- to be removed 11/2013 ??? ZOLPIDEM TARTRATE 10 MG OR TABS 1 TABLET AT BEDTIME ??? KLONOPIN 1 MG OR TABS 1 TABLET PO q8hr prn anxiety ??? OMEPRAZOLE 40 MG OR CPDR ONE DAILY at dinner ??? CELEXA 40 MG OR TABS 1 tab PO day for depression History Substance Use Topics ??? Tobacco Use: Yes 1-2 every other day ??? Alcohol Use: Yes 1 qo week ROS: Review of systems negative except as stated above. OBJECTIVE: BP 108/78 Pulse 61 Temp(Src) 98.4 ??F (36.9 ??C) (Oral) Wt 147 lb (66.679 kg) SpO2 99% GENERAL APPEARANCE: alert, moderate distress and cooperative NECK: supple, nontender, no lymphadenopathy RESP: lungs clear to auscultation - no rales, rhonchi or wheezes CV: regular rates and rhythm, normal S1 S2, no murmur noted ABDOMEN: soft, tenderness moderate LLQ, normal bowel sounds, mild guarding SKIN: no suspicious lesions or rashes WBC 5.2 09/20/2009 RBC 4.54 09/20/2009 HGB 13.9 09/20/2009 HCT 41.2 09/20/2009 No components found with this name: mct MCV 91 09/20/2009 MCH 30.6 09/20/2009 MCHC 33.7 09/20/2009 RDW 12.7 09/20/2009 PLT 274 09/20/2009 ASSESSMENT/PLAN: 789.04C LLQ Abdominal Pain (primary encounter diagnosis) Plan: MIRENA 20 MCG/24HR IU IUD, UA MICRO IF POSITIVE, MICRO EXAM-URINE, SONO PELVIS COMPLETE, DILAUDID 2 MG OR TABS, SONO EXAM, TRANSVAGINAL, CBC WITH PLATELETS, SED RATE, AUTO, SONO PELVIS COMPLETE Comment: ovarian cyst? 620.2S Ovarian Cyst Plan: SONO EXAM, TRANSVAGINAL, CBC WITH PLATELETS, SED RATE, AUTO Comment: left Martin Hauser MD [facility] documented in this encounter Nursing Notes 09/20/2009 9:15 AM CDT >> UTE BOWMAN Wed Sep 20, 2009 9:29 AM Patient presents with: Abdominal Pain - LLQ Pain x 3 days-1week. Sharp. Has had a Mirena since 11/2008. ? Ovarian Cyst. Initial BP 108/78 Pulse 61 Temp(Src) 98.4 ??F (36.9 ??C) (Oral) Wt 147 lb (66.679 kg) SpO2 99% Estimated Body mass index is 23.37 kg/(m^2) as calculated from the following: Height as of 06/19/09: 5' 6.5(1.689 m). Weight as of this encounter: 147 lb(66.679 kg). BP completed using cuff size large Right Arm Health Maintenance Updated with Patient: Yes Tobacco Verified: Yes Payor/Verify RX Benefits/Reconcile Disp Completed if allowed: Yes Family History Updated: Yes Immunizations Up to Date: Yes Mychart Offered: Yes Jeimy Bowman CMA documented in this encounter Plan of Treatment Not on filedocumented as of this encounter Procedures Procedure Name Priority Date/Time Associated Diagnosis Comme nts HC US PELVIC HAYDE 09/20/2009 11:39 AM LLQ abdominal pain Re sults for this NON-OB, COMPLETE CDT procedure a re in the results section. CL AFF CBC WITH Routine 09/20/2009 11:28 AM LLQ Abdomina l Pain Results for this PLATELETS CDT Ovarian Cyst procedure are i n the results section. HCL SED RATE (ESR) Routine 09/20/2009 11:28 AM LLQ Abdom inal Pain Results for this CDT Ovarian Cyst procedure are i n the results section. HCL UA MICRO IF Routine 09/20/2009 9:39 AM LLQ Abdominal Pain Results for this POSITIVE CDT procedure are i n the results section. CL AFF MICRO Routine 09/20/2009 9:39 AM LLQ Abdominal Pain Res ults for this EXAM-URINE CDT procedure are i n the results section. documented in this encounter Results SONO PELVIS COMPLETE (09/20/2009 11:39 AM CDT) Anatomical Region Laterality Modality Other Specimen (Source) Anatomical Collection Method Collection Time Re ceived Time Location / / Volume Laterality 09/20/2009 11:39 AM CDT Impressions 09/20/2009 1:42 PM CDT ULTRASOUND PELVIC WITH TRANSVAGINAL Apri l 2009 11:39:00 AM ?? HISTORY: Left lower quadrant abdominal p ain. Evaluate for ovarian cyst. COMPARISON: None. FINDINGS: Transabdominal and transvagina l imaging performed. Transvaginal imaging performed to better visualize the ovaries. The uterus is normal in size and position me asuring 8.3 x 4.5 x 5.9 cm. The endometrium is normal in thickness a t 3 mm. There is an IUD in the endometrial cavity in the upper uterine segment. The left ovary is not identified. The right ovary contains a m inimally complex cyst measuring 1.5 x 1.1 x 1.2 cm. There is n o left adnexal mass. No free pelvic fluid. IMPRESSION: 1. There is slightly complex 1.5 cm righ t ovarian cyst. This likely a hemorrhagic cyst. Followup ultrasound in two to three menstrual cycles is recommended. 2. The left ovary is not identified. The re is no adnexal mass. 3. Intrauterine device in place. Martin Hauser MD SPECIAL IM[facility] SED RATE, AUTO (09/20/2009 11:28 AM CDT) athologist Signature Sed Rate 5 0 - 20 mm/h [facility] Specimen Anatomical Collection Method Collection Time Receive d Time (Source) Location / / Volume Laterality 09/20/2009 11:28 09/20/2009 AM CDT 11:29 AM CDT Martin Hauser MD LABORATORY Performing Organization Address City/State/ZIP Code Phon e Number [address] [id number] [facility] CBC WITH PLATELETS (09/20/2009 11:28 AM CDT) athologist Signature WBC 5.2 4.0 - 11.0 [place] 10e9/L [facility] RBC Count 4.54 3.8 - 5.2 [place] 10e12/L [facility] Hemoglobin 13.9 11.7 - [facility] 15.7 g/dL [facility] Hematocrit 41.2 35.0 - [facility] 47.0 % [facility] MCV 91 78 - 100 [facility] MCH 30.6 26.5 - [facility] 33.0 pg [facility] MCHC 33.7 31.5 - [facility] 36.5 g/dL [facility] RDW 12.7 10.0 - [place] 15.0 % [facility] Platelet Count 274 150 - 450 [place] 10e9/L [facility] Specimen Anatomical Collection Method Collection Time Receive d Time (Source) Location / / Volume Laterality 09/20/2009 11:28 09/20/2009 AM CDT 11:29 AM CDT Martin Hauser MD LABORATORY Performing Organization Address City/[facility]/ZIP Code Phon e Number [address] [id number] [facility] (ABNORMAL) MICRO EXAM-URINE (09/20/2009 9:39 AM CDT) [facility] [employer] gist Method Time Signature WBC Urine 2-5 (A) 0 - 2 [place] /HPF [facility] RBC Urine O - 2 0 - 2 [place] /[facility] Hyaline Casts O - 2 0 - 2 [place] /F [facility] Squamous Many (A) FEW /LPF [place] Epithelial [facility] Urine CLINIC LAB Bacteria Urine Few (A) NEG /HPF [facility] Mucous Urine Present (A) NEG /LPF [facility] Specimen Anatomical Collection Method Collection Time Receive d Time (Source) Location / / Volume Laterality 09/20/2009 9:39 AM 0 9:40 CDT AM CDT Martin Hauser MD LABORATORY Performing Organization Address [facility]/ZIP Code Phon e Number [address] [address] [facility] (ABNORMAL) UA MICRO IF POSITIVE (09/20/2009 9:39 AM CDT) [facility] Method Time Signature Color Urine Cathy [facility] Appearance Urine Clear [facility] Glucose Urine Negative NEG mg/dL [facility] Bilirubin Urine Negative NEG [facility] Ketones Urine 40 (A) NEG mg/dL [facility] Specific [place] 1.025 1.003 - [place] Urine 1.035 [facility] Blood Urine Trace (A) NEG [facility] pH Urine 5.5 5.0 - 7.0 [place] pH [facility] Protein Albumin 30 (A) NEG mg/dL [place] Urine [facility] Urobilinogen 0.2 0.2 - 1.0 [place] Urine EU/dL [facility] Nitrite Urine Negative NEG [facility] Leukocyte Trace (A) NEG [place] Esterase Urine [facility] Source Midstream [place] Urine [facility] Specimen Anatomical Collection Method Collection Time Receive d Time (Source) Location / / Volume Laterality 09/20/2009 9:39 AM 0 9:40 CDT AM CDT Martin Hauser MD LABORATORY Performing Organization Address City/[facility]/ZIP Code Phon e Number [facility] [id number] [place] [phone] [facility] documented in this encounter Visit Diagnoses Diagnosis LLQ abdominal pain - Primary Abdominal pain, left lower quadrant Ovarian cyst Other and unspecified ovarian cyst documented in this encounter Care Teams Waterproof Material Folder Relationship Specialty Start Date End Date Melvin Palacios MD PCP - General 06/22/99 09/20/10 [id number] [id number] documented as of this encounter
--- OUTSIDE RECORDS SUMMARY | 2022-04-02 12:45 | XMS_ITS | Encounter Summary ---
:1975 Author Organization [facility] Address [address] [place] [address] Care Team Providers Name Role Phone Melvin Palacios MD Primary Care Provider Reason for Visit Reason Comments Forms Encounter Details Date Type Department Care Team Description 08/16/2009 Office Visit [facility] Melvin Palacios MD Adjustment Disorder with Depressed Mood; Clinic [address] Migraine Headaches [address] [place], [place] [phone] Social History Tobacco Use Types Packs/Day Years Used Date Smoking Tobacco: Every Day Comments: 1-2 every other day Alcohol Use Standard Drinks/Week Comments Yes 0 (1 standard drink = 0.6 oz pure alcoho l) social Sex Assigned at Date Recorded Not on file documented as of this encounter Last Filed Vital Signs Vital Sign Reading Time Taken Comments Blood Pressure 118/65 08/16/2009 2:54 PM PEAR PICKER Pulse 82 08/16/2009 2:54 PM PEAR PICKER Temperature - - Respiratory Rate - - Oxygen Saturation - - Inhaled Oxygen Concentration - - Weight 69.9 kg (154 lb) 08/16/2009 2:54 PM PEAR PICKER Height - - Body Mass Index 24.48 06/19/2009 3:40 PM PEAR PICKER documented in this encounter Progress Notes Melvin Palacios - 08/16/2009 3:16 PM CST Pt here for completion of two separate FMLA forms for migraine HAYES intermittent absence issues and 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 Her igraines have improved markedly as she has not had migraine in nearly 3 months. Pt is now in counselling at [facility] and has developed an excellent rapport with therapist. EXAM: PSYCH: euthymic. No violent ideation. No delusions or hallucinations. A/P; 1- Migraine HAYES hx. Stable. 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 Doing well. Maintain curent medications, her use of prn meds imarkedly reduced. No refill given today. F/u in 2 months. PICKER documented in this encounter Nursing Notes 08/16/2009 3:00 PM CST >> DIVINE COREAS Wed Aug 16, 2009 2:55 PM Patient presents with: Forms Initial BP 118/65 Pulse 82 Wt 154 lb (69.854 kg) Estimated Body mass index is 24.48 kg/(m^2) as calculated from the following: Height as of 06/19/09: 5' 6.5(1.689 m). Weight as of this encounter: 154 lb(69.854 kg).. BP completed using cuff size regular HEALTH MAINTENANCE REVIEWED. Divine Coreas CMA documented in this encounter Plan of Treatment Not on filedocumented as of this encounter Visit Diagnoses Diagnosis Adjustment disorder with depressed mood Migraine headaches Migraine, unspecified, without mention o f intractable migraine without mention of status migrainosus documented in this encounter Care Teams Merit System Director Relationship Specialty Start Date End Date Melvin Palacios MD PCP - General 06/22/99 09/20/10 [id number] [id number] documented as of this encounter
--- OUTSIDE RECORDS SUMMARY | 2022-04-02 12:45 | XMS_ITS | Encounter Summary ---
:1975 Author Organization [facility] Address [address] [place] [address]. [place] [address] Care Team Providers Name Role Phone Melvin Palacios MD Primary Care Provider Encounter Details Date Type Department Care Team Description 07/05/2010 Historic Notes INTERFACED REPORT Brian Shukla MD [address] [facility] [address] [place] [address] (Wo rk) Social History Tobacco Use Types Packs/Day Years Used Date Smoking Tobacco: Every Day Comments: 1-2 every other day Alcohol Use Standard Drinks/Week Comments Yes 0 (1 standard drink = 0.6 oz pure alcoho l) 1 qo week Sex Assigned at Date Recorded Not on file documented as of this encounter Progress Notes Otoniel Shukla MD - 08/23/2010 10:27 PM CDT ATTENDING PHYSICIAN - Consulting Service: We are continuing to follow and manage the patient at the request of the attending. Interval History - Interval History: Notified regarding 3 days of unremitting circumferential band like HAYES. Similar HAYES's chronically, albeit less prolonged typically relieved with 2 excedrin. Pounding quality. Photophobia and phonophobia. Otherwise no visual cordero. No nausea. Associated neck/ shoulder discomfort. Physical Exam - General: Alert. In lounge. Not acutely distressed. - Eyes: EOM's, pupils normal - Musculoskeletal: Tender paracervical/ trapezius ligaments. - Neuro: Nonfocal. Labs Laboratory 18:40 Sodium Level * 141 Potassium Level * 4.4 Chloride Level * 108 CO2 Total * 24 Glucose Level * 90 Urea Nitrogen Level* 12 Creatinine 0.90 GFR estimated 73 GFR estimated if 88 -[place] Calcium Level* 8.5 AST 22 GGT 16 Protein Total 6.2 Anion Gap 9.2 TSH Reflex 1.64 Albumin Level* 3.5 ALT 16 Alkaline Phosphatase* 46 Bilirubin Conjugated 0.0 Bilirubin Delta 0.0 Bilirubin Total <0.1 Acetaminophen Level <10 Ethanol Level <0.01 MCV 90 MCH 30.3 MCHC 33.6 RDW 12.5 WBC Count 7.4 RBC Count 4.16 Hemoglobin * 12.6 Hematocrit* 37.5 Platelet Count 286 VS 1. Vital Signs Adult Med Surg 12:00 - BP Sitting Systolic 124 mmHg - BP Sitting Diastolic 70 mmHg - BP Sitting HR bpm 62 - BP Standing Systolic 118 mmHg - BP Standing 75 Diastolic mmHg - BP Standing HR bpm 73 08:00 - Temperature degrees 36.8 C - Temperature degrees 98.4 F - Heart Rate Heart Rate 73 beats/min - BP Cuff Systolic BP 120 mmHg - BP Cuff Diastolic BP 68 mmHg - BP Cuff Mean BP mmHg 85 - Resp, Pulse Ox Resp 16 Rate - Pain head Assessment/Number Scale (0-10) (Adult) Pain Radiation To - Pain 7 Assessment/Number Scale (0-10) (Adult) Pain Rating: Rest - BP Sitting Systolic 120 mmHg - BP Sitting Diastolic 68 mmHg - BP Sitting HR bpm 73 - BP Standing Systolic 107 mmHg - BP Standing 62 Diastolic mmHg - BP Standing HR bpm 88 Assessment and Plan - Assessment/Plan: 1) HAYES - likely mixed with tension/ muscle contraction and vascular component. Plan: 1) Trial midrin. 2) Robaxin prn for muscle relaxation. 3) MRI ordered by psychiatry. Signatures OTONIEL SHUKLA)[Signed 16:27] Authored: ATTENDING PHYSICIAN, Interval History, Physical Exam, Labs, VS, Assessment and Plan Entered: ATTENDING PHYSICIAN, Interval History, Physical Exam, VS, Assessment and Plan documented in this encounter Plan of Treatment Not on filedocumented as of this encounter Visit Diagnoses Not on filedocumented in this encounter Care Teams Gas Appliance Adjuster Relationship Specialty Start Date End Date Melvin Palacios MD PCP - General 06/22/99 09/20/10 [address] [id number] documented as of this encounter
--- OUTSIDE RECORDS SUMMARY | 2022-04-02 12:45 | XMS_ITS | Encounter Summary ---
:1975 Author Organization [address] [place] [address] Care Team Providers Name Role Phone Mevlin Palacios MD Primary Care Provider Encounter Details Date Type Department Care Team Description 07/01/2010 Historic Results [facility] Ángela Rodriguez Emergency Department MD L[place] [address] [address] [place] [address] (Wo rk) Social History Tobacco [...] Procedure Name Priority Date/Time Associated Comments Diagnosis HCG QUALITATIVE URINE STAT 07/01/2010 7:20 PM Results for this REAL ESTATE TRANSACTION COORDINATOR procedure are i n the results section. DRUG ABUSE SCREEN 8 Routine 07/01/2010 7:20 PM Re sults for this URINE (UR) REAL ESTATE TRANSACTION COORDINATOR procedure are i n the results section. TSH WITH FREE T4 Routine 07/01/2010 6:40 PM Resul ts for this REFLEX REAL ESTATE TRANSACTION COORDINATOR procedure are i n the results section. HEPATIC FUNCTION PANEL Routine 07/01/2010 6:40 PM Results for this REAL ESTATE TRANSACTION COORDINATOR procedure are i n the results section. GGT Routine 07/01/2010 6:40 PM Results f or this REAL ESTATE TRANSACTION COORDINATOR procedure are i n the results section. ETHYL ALCOHOL LEVEL STAT 07/01/2010 6:40 PM Re sults for this REAL ESTATE TRANSACTION COORDINATOR procedure are i n the results section. ACETAMINOPHEN LEVEL STAT 07/01/2010 6:40 PM Re sults for this REAL ESTATE TRANSACTION COORDINATOR procedure are i n the results section. BASIC METABOLIC PANEL STAT 07/01/2010 6:40 PM Results for this REAL ESTATE TRANSACTION COORDINATOR procedure are i n the results section. CBC WITH PLATELETS Routine 07/01/2010 6:40 PM Res ults for this REAL ESTATE TRANSACTION COORDINATOR procedure are i n the results section. documented in this encounter Results HCG qualitative urine (07/01/2010 7:20 PM REAL ESTATE TRANSACTION COORDINATOR) P athologist Signature HCG Qual Urine Negative NEG [place] Specimen Anatomical Collection Method Collection Time Receive d Time (Source) Location / / Volume Laterality 07/01/2010 7:20 PM 1 6:23 REAL ESTATE TRANSACTION COORDINATOR PM REAL ESTATE TRANSACTION COORDINATOR Ángela Rodriguez MD LAB - URINE ORDERABLES Performing Organization Address City/State/ZIP Code Phon e Number MIS[place] (ABNORMAL) Drug abuse screen 8 urine (UR) (07/01/2010 7:20 PM REAL ESTATE TRANSACTION COORDINATOR) Patholo gist Method Time Signature Amphetamine Qual Negative NEG [place] Urine Comment: Cutoff for a negative amphetam ine is 500 ng/mL or less. Ethanol Qual Urine Negative NEG [place] Comment: Cutoff for a negative urine et hanol is 50 mg/dL or less. Opiates Qualitative Urine Positive (A) NEG M ISYS Comment: Cutoff for a positive opiate is greater than 300 ng/mL. This is an unconfirmed screening result to be used for medical purposes only. PCP Qual Urine Negative NEG [place] Comment: Cutoff for a negative PCP is 2 5 ng/mL or less. Benzodiazepine Qual Urine Negative NEG MISY S Comment: Cutoff for a negative benzodia zepine is 200 ng/mL or less. Barbiturates Qual Urine Negative NEG MISYS Comment: Cutoff for a negative barbitur ate is 200 ng/mL or less. Cocaine Qual Urine Negative NEG MISYS Comment: Cutoff for a negative cocaine is 300 ng/mL or less. Cannabinoids Qual Urine Negative NEG MISYS Comment: Cutoff for a negative cannabin oid is 50 ng/mL or less. Specimen Anatomical Collection Method Collection Time Receive d Time (Source) Location / / Volume Laterality 07/01/2010 7:20 PM 1 9:36 REAL ESTATE TRANSACTION COORDINATOR PM REAL ESTATE TRANSACTION COORDINATOR Ángela Rodriguez MD LAB - URINE ORDERABLES Performing Organization Address [facility] Code Phon e Number MISYS Basic metabolic panel (07/01/2010 6:40 PM REAL ESTATE TRANSACTION COORDINATOR) P athologist Signature Sodium 141 133 - 144 [place] mmol/L Potassium 4.4 3.4 - 5.3 [place] mmol/L Chloride 108 94 - 109 [place] mmol/L Carbon Dioxide 24 20 - 32 [place] mmol/L Glucose 90 60 - 99 [place] mg/dL Urea Nitrogen 12 5 - 24 [place] mg/dL Creatinine 0.90 0.52 - 1.04 [place] mg/dL Comment: New IDMS-traceable calibration beginning 10/08/07 GFR Estimate 73 >60 mL/min/1.7m2 MIS[facility] GFR Estimate If Black 88 >60 mL/min/1.7m2 M ISYS Calcium 8.5 8.5 - 10.4 mg/dL MIS[facility] Anion Gap 9.2 6 - 17 mmol/L MIS[facility] Specimen Anatomical Collection Method Collection Time Receive d Time (Source) Location / / Volume Laterality 07/01/2010 6:40 PM 1 6:23 REAL ESTATE TRANSACTION COORDINATOR PM REAL ESTATE TRANSACTION COORDINATOR Ángela Rodriguez MD LAB - BLOOD ORDERABLES Performing Organization Address [facility] Phon e Number MIS[place] Acetaminophen level (07/01/2010 6:40 PM REAL ESTATE TRANSACTION COORDINATOR) Analysis Performed At Patho logist Time Signature Acetaminophen <10 mg/L MIS[facility] Level Specimen Anatomical Collection Method Collection Time Receive d Time (Source) Location / / Volume Laterality 07/01/2010 6:40 PM 1 6:23 REAL ESTATE TRANSACTION COORDINATOR PM REAL ESTATE TRANSACTION COORDINATOR Ángela Rodriguez MD LAB - BLOOD ORDERABLES Performing Organization Address [facility] Code Phon e Number MISYS Alcohol ethyl (07/01/2010 6:40 PM REAL ESTATE TRANSACTION COORDINATOR) P athologist Signature Ethanol g/dL <0.01 0.01 g/dL MIS[facility] Specimen Anatomical Collection Method Collection Time Receive d Time (Source) Location / / Volume Laterality 07/01/2010 6:40 PM 1 6:23 REAL ESTATE TRANSACTION COORDINATOR PM REAL ESTATE TRANSACTION COORDINATOR Ángela Rodriguez MD LAB - BLOOD ORDERABLES Performing Organization Address City/State/ZIP Code Phon e Number [place] (ABNORMAL) Hepatic panel (07/01/2010 6:40 PM REAL ESTATE TRANSACTION COORDINATOR) Patholo gist Method Time Signature AST 22 0 - 45 U/L M[facility] Protein Total 6.2 (L) 6.8 - 8.8 [place] g/dL Albumin 3.5 (L) 3.9 - 5.1 [place]IS[facility] g/dL ALT 16 0 - 50 U/L MIS[facility] Alkaline 46 40 - 150 [place] Phosphatase U/L Bilirubin 0.0 0.0 - 0.3 [place] Conjugated mg/dL Bilirubin Delta 0.0 0.0 - 0.4 [place] mg/dL Bilirubin Total <0.1 (L) 0.2 - 1.3 [place] mg/dL Specimen Anatomical Collection Method Collection Time Receive d Time (Source) Location / / Volume Laterality 07/01/2010 6:40 PM 1 REAL ESTATE TRANSACTION COORDINATOR 11:58 PM REAL ESTATE TRANSACTION COORDINATOR Ángela Rodriguez MD LAB - BLOOD ORDERABLES Performing Organization Address [facility]/ZIP Code Phon e Number MIS[place] CBC with platelets (07/01/2010 6:40 PM REAL ESTATE TRANSACTION COORDINATOR) P athologist Signature MCV 90 78 - 100 fl MISYS MCH 30.3 26.5 - 33.0 MIS[place] pg MCHC 33.6 31.5 - 36.5 MIS[place] g/dL RDW 12.5 10.0 - 15.0 MIS[place] % WBC 7.4 4.0 - 11.0 MIS[place] 10e9/L RBC Count 4.16 3.8 - 5.2 MIS[place] 10e12/L Hemoglobin 12.6 11.7 - 15.7 MIS[place] g/dL Hematocrit 37.5 35.0 - 47.0 MISYS % Platelet Count 286 150 - 450 MIS[facility] 10e9/L Specimen Anatomical Collection Method Collection Time Receive d Time (Source) Location / / Volume Laterality 07/01/2010 6:40 PM 1 REAL ESTATE TRANSACTION COORDINATOR 11:58 PM REAL ESTATE TRANSACTION COORDINATOR Ángela Rodriguez MD LAB - BLOOD ORDERABLES Performing Organization Address City/State/ZIP Code Phon e Number [place]IS[place] GGT (07/01/2010 6:40 PM REAL ESTATE TRANSACTION COORDINATOR) P athologist Signature GGT 16 0 - 40 U/L MIS[facility] Specimen Anatomical Collection Method Collection Time Receive d Time (Source) Location / / Volume Laterality 07/01/2010 6:40 PM 1 REAL ESTATE TRANSACTION COORDINATOR 11:58 PM REAL ESTATE TRANSACTION COORDINATOR Ángela Rodriguez MD LAB - BLOOD ORDERABLES Performing Organization Address City/[facility] Phon e Number MISYS TSH with free T4 reflex (07/01/2010 6:40 PM REAL ESTATE TRANSACTION COORDINATOR) P athologist Signature TSH 1.64 0.4 - 5.0 MISYS mU/L Specimen Anatomical Collection Method Collection Time Receive d Time (Source) Location / / Volume Laterality 07/01/2010 6:40 PM 1 REAL ESTATE TRANSACTION COORDINATOR 11:58 PM REAL ESTATE TRANSACTION COORDINATOR Ángela Rodriguez MD LAB - BLOOD ORDERABLES Performing Organization Address [facility] Phon e Number MISYS documented in this encounter Visit Diagnoses Not on filedocumented in this encounter Care Teams Tank Car Loader Relationship Specialty Start Date End Date Melvin Palacios MD PCP - General 06/22/99 09/20/10 [address] [id number] documented as of this encounter
--- OUTSIDE RECORDS SUMMARY | 2022-04-02 12:45 | XMS_ITS | Encounter Summary ---
:1975 Author Organization [facility] Address [address] [place] [address]. [place] [address] Care Team Providers Name Role Phone Melvin Palacios MD Primary Care Provider Reason for Visit Reason Comments Urgent Care UTI since fri Encounter Details Date Type Department Care Team Description 11/11/2009 Office Visit [facility] Whit Vasquez MD Dysuria (Primary Dx); Care 2019 E UTI (Urinary Tract Infection ) [address] [address] [place], [place] [phone] [address] Social History Tobacco Use Types Packs/Day Years Used Date Smoking Tobacco: Every Day Comments: 1-2 every other day Alcohol Use Standard Drinks/Week Comments Yes 0 (1 standard drink = 0.6 oz pure alcoho l) 1 qo week Sex Assigned at Date Recorded Not on file documented as of this encounter Last Filed Vital Signs Vital Sign [facility] Time Taken Comments Blood Pressure 110/68 11/11/2009 2:26 PM CDT Pulse 64 11/11/2009 2:26 PM CDT Temperature 37.2 ??C (99 ??F) 11/11/2009 2:26 PM CDT Respiratory Rate - - Oxygen Saturation - - Inhaled Oxygen Concentration - - Weight - - Height - - Body Mass Index - - documented in this encounter Progress Notes Franck Vasquez - 11/11/2009 2:51 PM CDT SUBJECTIVE: Dariana Osman is a 34 year old female who presents today for a possible UTI. Symptoms of dysuria (severe pain), urgency and burning have been going on for 4day(s). Hematuria unsure. still present and worseningand severe. There is no history of fever, chills, nausea or vomiting. No history of vaginal discharge. This patient does not have a history of urinary tract infections. Patient denies long duration, rigors, flank pain, temperature > 101 degrees F. and Vomiting, significant nausea or diarrhea. Past Medical History Diagnosis Date ??? Calculus of Kidney ??? Depressive Disorder, not Elsewhere Classified ??? Anxiety State, Unspecified Current outpatient prescriptions Medication Sig ??? PRISTIQ 50 MG PO TB24 1 TABLET DAILY ??? KLONOPIN 0.5 MG PO TABS ONE TABLET AT BEDTIME ??? SHANTAL 3-0.02 MG PO TABS ONE TABLET DAILY ??? VITAMIN D (ERGOCALCIFEROL) 93896 UNIT PO CAPS 1 CAPSULE WEEKLY for 12 weeks ??? KLONOPIN 1 MG PO TABS 1 TABLET PO q8hr prn anxiety ??? ZOLPIDEM TARTRATE 10 MG PO TABS 1 TABLET AT BEDTIME ??? OMEPRAZOLE 40 MG OR CPDR ONE DAILY at dinner ??? CELEXA 40 MG OR TABS 1 tab PO day for depression ??? DISCONTD: UNKNOWN MED DOSAGE abilify don't know dosage of medication History Substance Use Topics ??? Tobacco Use: Yes 1-2 every other day ??? Alcohol Use: Yes 1 qo week ROS: Review of systems negative except as stated above. OBJECTIVE: BP 110/68 Pulse 64 Temp(Src) 99 ??F (37.2 ??C) (Oral) GENERAL APPEARANCE: healthy, alert and no distress UA: Cloudy appearance. There are trace ketones, moderate blood, 100 mg/dL Protein, Moderate Leukocyte Esterase. The micro exam showed > 100 WBC/HPF, 10-25 RBC/HPF, few renal tubular epithelial cells, there is also mucus present in the urine. ASSESSMENT: Lower, uncomplicated urinary tract infection. PLAN: Rx: Nitrofurantoin and Pyridium per Epic orders. Drink plenty of fluids. Prevention and treatment of UTI's discussed.Signs and symptoms of pyelonephritis mentioned. Follow up with primary care physician if not improving Urine CX pending. Franck Vasquez MD documented in this encounter Nursing Notes 11/11/2009 2:30 PM CDT >> NIURKA ARANA Sat Nov 11, 2009 2:29 PM Patient presents with: Urgent Care UTI - since fri Initial BP 110/68 Pulse 64 Temp(Src) 99 ??F (37.2 ??C) (Oral) Estimated Body mass index is 23.45kg/(m^2) as calculated from the following: Height as of 11/07/09: 5' 6.5(1.689 m). Weight as of 11/07/09: 147 lb 8 oz(66.906 kg).. BP completed using cuff size regular-l Court Arana CMA documented in this encounter Plan of Treatment Not on filedocumented as of this encounter Procedures Procedure Name Priority Date/Time Associated Diagnosis Comme nts HCL CULTURE, URINE Routine 11/11/2009 2:21 PM Dysuria Res ults for this CDT procedure are i n the results section. HCL UA MICRO IF Routine 11/11/2009 2:21 PM Dysuria Result s for this POSITIVE CDT procedure are i n the results section. CL AFF MICRO Routine 11/11/2009 2:21 PM Results f or this EXAM-URINE CDT procedure are i n the results section. documented in this encounter Results URINE CULTURE (11/11/2009 2:21 PM CDT) [facility] gist Method Time Signature Specimen Midstream Urine [facility] Description [facility] Culture Micro 10 to 50,000 [place] colonies/mL [facility] coli Micro Report FINAL [facility] Status 11/14/2009 [facility] Specimen Anatomical Collection Method Collection Time Receive d Time (Source) Location / / Volume Laterality 11/11/2009 2:21 PM 0 2:39 CDT PM CDT Organism Antibiotic Method Susceptibility 10 to 50,000 colonies/ml Ampicillin <=2 Tami ceptible escherichia coli (kirsten) 10 to 50,000 colonies/ml Cefazolin <=4 Tami ceptible escherichia coli (kirsten) 10 to 50,000 colonies/ml Cefoxitin <=4 Tami ceptible escherichia coli (kirsten) 10 to 50,000 colonies/ml Ceftriaxone <=1 Tami ceptible escherichia coli (kirsten) 10 to 50,000 colonies/ml Ciprofloxacin <=0.25 Susceptible escherichia coli (kirsten) 10 to 50,000 colonies/ml Gentamicin <=1 Tami ceptible escherichia coli (kirsten) 10 to 50,000 colonies/ml Levofloxacin <=0.12 Susceptible escherichia coli (kirsten) 10 to 50,000 colonies/ml Nitrofurantoin <=16 [place] sceptible escherichia coli (kirsten) 10 to 50,000 colonies/ml Tobramycin <=1 Tami ceptible escherichia coli (kirsten) 10 to 50,000 colonies/ml Trimethoprim/Sulfamethoxazole <=1/19 Susceptible escherichia coli (kirsten) 10 to 50,000 colonies/ml Ampicillin/Sulbactam <= 2 Susceptible escherichia coli (kirsten) 10 to 50,000 colonies/ml Cefotaxime Suscept ible escherichia coli (kirsten) 10 to 50,000 colonies/ml Piperacillin/Tazo <=4 S usceptible escherichia coli (kirsten) Franck Vasquez MD LABORATORY Performing Organization Address City/[facility]/ZIP Code Phon e Number [facility] [address] [facility] S[place] Andres [id number] [address] (ABNORMAL) MICRO EXAM-URINE (11/11/2009 2:21 PM CDT) [facility] Method Time Signature WBC Urine >100 (A) 0 - 2 [facility] RBC Urine 10-25 (A) 0 - 2 [facility] /[facility] Squamous Few FEW /LPF [facility] Epithelial /LPF [facility] LAB Renal Tub Epi Few (A) NEG /HPF [facility] Mucous Urine Present (A) NEG /LPF [facility] Specimen Anatomical Collection Method Collection Time Receive d Time (Source) Location / / Volume Laterality 11/11/2009 2:21 PM 0 2:27 CDT PM CDT Franck Vasquez MD LABORATORY Performing Organization Address City/[facility]/ZIP Code Phon e Number [facility] [address] [facility] SONJA Juárez [address] [facility] (ABNORMAL) UA MICRO IF POSITIVE (11/11/2009 2:21 PM CDT) [facility] Method Time Signature Color Urine Yellow [facility] Appearance Urine Cloudy [facility] Glucose Urine Negative NEG mg/dL [facility] Bilirubin Urine Negative NEG [facility] Ketones Urine Trace (A) NEG mg/dL [facility] Specific [place] >1.030 1.003 - [facility] Urine 1.035 [facility] Blood Urine Moderate (A) NEG [facility] pH Urine 5.5 5.0 - 7.0 [facility] pH [facility] Protein Albumin 100 (A) NEG mg/dL [facility] Urine [facility] Urobilinogen 1.0 0.2 - 1.0 [place] Urine EU/dL [facility] Nitrite Urine Negative NEG [facility] Leukocyte Moderate (A) NEG [facility] Esterase Urine [facility] Source Midstream [facility] Urine [facility] Specimen Anatomical Collection Method Collection Time Receive d Time (Source) Location / / Volume Laterality 11/11/2009 2:21 PM 11/11/201 0 2:27 CDT PM CDT Franck Vasquez MD LABORATORY Performing Organization Address City/State/ZIP Code Phon e Number [facility] [address] [place] [address] [place] [address] [facility] documented in this encounter Visit Diagnoses Diagnosis Dysuria - Primary UTI (urinary tract infection) Urinary tract infection, site not specif ied documented in this encounter Care Teams Head Of Ethics And Compliance Relationship Specialty Start Date End Date Melvin Palacios MD PCP - General 06/22/99 09/20/10 [address] [id number] documented as of this encounter
--- OUTSIDE RECORDS SUMMARY | 2022-04-02 12:45 | XMS_ITS | Encounter Summary ---
:1975 Author Organization [place] Address [address] [place] [address]. [place] [address] Care Team Providers Name Role Phone Melvin Palacios MD Primary Care Provider Encounter Details Date Type Department Care Team Description 07/03/2010 Historic Notes INTERFACED REPORT James Bautista MD [address] [place] [address] (Wo rk) Social History Tobacco Use Types Packs/Day Years Used Date Smoking Tobacco: Every Day Comments: 1-2 every other day Alcohol Use Standard Drinks/Week Comments Yes 0 (1 standard drink = 0.6 oz pure alcoho l) 1 qo week Sex Assigned at Date Recorded Not on file documented as of this encounter Progress Notes Allen Bautista - 08/23/2010 10:38 PM CDT Problem List MENTAL HEALTH: ; Active Admitting; MENTAL HEALTH OVERDOSE: ; Inactive Admitting; OVERDOSE Interval History - Interval History: has still been reaching out to her ;and that she had given him some warning as to her call ;that he elected to go over to 'her' house and thus was seeking support or alternately had been defer the answer and the repsonse rx;patient has not violated the bonds ;had admitted to x2 individuals that she had dated total of x6 dates ;with patient indicates that she did invite these men for own 'sex 'needs; we have not talked as to this was such a area in the marriage ;with just no spark anymore Review of Systems - Constitutional: Negative - Skin: Negative - Musculoskeletal: Negative - Eyes: Negative - ENT: Negative - Endocrine: Negative - Respiratory: Negative - Cardiovascular: Negative - Heme: Negative - Lymph: Negative - GI: Negative - : Negative - Neuro: Negative - Psych: Negative - Psych Comments: patient has commented as to marraige of being prvileges of remaining in the relationship Mental Status Exam - Appearance: alert [...] of Knowledge: intact - Formal Mental Status do address the family stressore;with Exam Remarkable for: father dying at age 61 and was 32 ;amber has x1 sister and then stepbrother and stepsister ;and that the biological sister was always very controllong and thus a very negative interaction for %99 Vital Signs/Labs/Imaging/Culture Results - Vital Signs: Vital Signs reviewed past 24 hours. VS 1. Vital Signs Adult Med Surg 08:00 - Temperature degrees 36.7 C - Temperature degrees 98.1 F - Heart Rate Heart Rate 80 beats/min - BP Cuff Systolic BP 126 mmHg - BP Cuff Diastolic BP 65 mmHg - BP Cuff Mean BP mmHg 85 - Resp, Pulse Ox Resp 16 Rate - Pain head Assessment/Number Scale (0-10) (Adult) Pain Radiation To - Pain 9 Assessment/Number Scale (0-10) (Adult) Pain Rating: Rest - BP Sitting Systolic 126 mmHg - BP Sitting Diastolic 65 mmHg - BP Sitting HR bpm 80 - BP Standing Systolic 115 mmHg - BP Standing 70 Diastolic mmHg - BP Standing HR bpm 90 - Ht, Wt, BSA Weight: 73.93 kg - Ht, Wt, BSA Weight: 163 lbs Risk Assessment - Discussion/Plan of stay with same medications Care: Signatures ALLEN BAUTISTA)[Signed 11:43] Authored: Problem List, Interval History, Review of Systems, Mental Status Exam, Vital Signs/Labs/Imaging/Culture Results, VS, Risk Assessment documented in this encounter Plan of Treatment Not on filedocumented as of this encounter Visit Diagnoses Not on filedocumented in this encounter Care Teams Personal Lines Account Manager Relationship Specialty Start Date End Date Melvin Palacios MD PCP - General 06/22/99 09/20/10 [address] [id number] documented as of this encounter
--- OUTSIDE RECORDS SUMMARY | 2022-04-02 12:45 | XMS_ITS | Encounter Summary ---
:1975 Author Organization [place] Address [address] [place] [address] Care Team Providers Name Role Phone Melvin Palacios MD Primary Care Provider Reason for Visit Reason Onset Date Comments Refill Request 02/26/2010 VITAMIN D 50,000 Encounter Details Date Type Department Care Team Description 02/26/2010 Refill [facility] Melvin Palacios MD Refill Request ([facility] [place] [address] [place] [address] 50,000) [address] [place], [place] S[place] KRUEGER [phone] Social History Tobacco Use Types Packs/Day Years [...] on filedocumented in this encounter Care Teams Blending Plant Operator Relationship Specialty Start Date End Date Melvin Palacios MD PCP - General 06/22/99 09/20/10 [address] [place] [id number] documented as of this encounter
--- OUTSIDE RECORDS SUMMARY | 2022-04-02 12:45 | XMS_ITS | Encounter Summary ---
:1975 Author Organization [place] Address [address] [place] [address]. [place] [address] Care Team Providers Name Role Phone Melvin Palacios MD Primary Care Provider Encounter Details Date Type Department Care Team Description 07/02/2010 Historic Notes INTERFACED REPORT Brian Shukla MD [address] [facility] [address] [place], [place] [id number] (Wo rk) Social History Tobacco Use Types Packs/Day Years Used Date Smoking Tobacco: Every Day Comments: 1-2 every other day Alcohol Use Standard Drinks/Week Comments Yes 0 (1 standard drink = 0.6 oz pure alcoho l) 1 qo week Sex Assigned at Date Recorded Not on file documented as of this encounter Progress Notes Otoniel Shukla MD - 08/23/2010 10:42 PM CDT Medicine consult dictated. Thanks. [Signature] Author: OTONIEL SHUKLA) [Signed 12:56] documented in this encounter Plan of Treatment Not on filedocumented as of this encounter Visit Diagnoses Not on filedocumented in this encounter Care Teams Raw Stock Dyeing Machine Tender Relationship Specialty Start Date End Date Melvin Palacios MD PCP - General 06/22/99 09/20/10 [address] [id number] documented as of this encounter
--- OUTSIDE RECORDS SUMMARY | 2022-04-02 12:45 | XMS_ITS | Encounter Summary ---
:1975 Author Organization [place] Address [address] [place] [address] Care Team Providers Name Role Phone Melvin Palacios MD Primary Care Provider Encounter Details Date Type Department Care Team Description 07/02/2010 Historic Notes INTERFACED REPORT Interface, Transcript on, Social History Tobacco Use Types Packs/Day Years Used Date Smoking Tobacco: Every Day Comments: 1-2 every other day Alcohol Use Standard Drinks/Week Comments Yes 0 (1 standard drink = 0.6 oz pure alcoho l) 1 qo week Sex Assigned at Date Recorded Not on file documented as of this encounter Progress Notes Interface, Audio Video Technician - 08/23/2010 10:44 PM CDT Safety Precautions Initiated (NOTE: MD Order Needed every 24 hours) - Date/Time Safety 21:15 Precautions Initiated: - supervisor food checkers and cashiers of Need Patient admitted with SI. for Safety Precautions: Signatures Moshe Gonzalez (SHAREE)[Signed 00:40] Authored: Safety Precautions Initiated (NOTE: MD Order Needed every 24 hours) Interface, Audio Video Technician - 08/23/2010 10:43 PM CDT Summary of Progress and Discharge Plan - Summary: You were admitted to hospital after overdosing on Dilaudid and Klonopin. You were feeling overwhelmed with suicidal thoughts, depression and anxiety. During your hospitalization, your medications were adjusted and you attended unit programming. You are planning to go out on short-term disability and have been given donated PTO time. In addition, you spoke with your sheeter waxer operator at [facility] and will start a Divorce Care Group. - Main Diagnosis: Major Depressive Disorder Generalized anxiety - Major Treatments, Discussed the medication Robaxin that she has Procedures and been started to help with her headaches. Pt. Findings: states that she will talk to her primary M.D. if she wants the medication to be available to her. - Symptoms to Report: losing more sleep, mood getting worse, thoughts of suicide Psychiatry Follow-Up - Psychiatrist/Primary Liliya Mckeon GANTRY RIGGER Inspector Bullet Slugs: - Psychiatrist Address: [facility] - Psychiatrist Number: - Psychiatrist 11:30 Appointment Date/Time: - Therapist: Thelma - Therapist Address: [facility] - Therapist Number: - Therapist Appointment 02:00 Date/Time: - Other Referrals: Divorce Care Group - Other Referrals [facility] Address: Provider Information - Discharged From: [facility] - Unit: [address] [place] [address] - Unit - Method: ambulatory - Transportation: private - Discharged To: home - - Accompanied by: family Discharge Teaching Checklist - Patient/Family Patient/family states reasons for or Understands: demonstrates ability to manage medications and side effects., Patient/family understands how to care for self (i.e. pain managements, diet change, activity)., Patient/family understands who will be responsible for their care upon discharge. - Valuables Returned: yes - Medications Returned: no, none - General Medication See your medication sheet(s) for instructions. Instructions: Take all medicines as directed. Make no changes unless your doctor suggests them. Go to all your doctor visits. Be sure to have all your required lab tests. This way, your medicines can be refilled on time. Do not use any drugs not prescribed by your doctor. Avoid alcohol. Resources - Resources Crisis Intervention: 946.415.4126 or 653 734-9639 (TTY: 361.694.7357); call anytime for help. National [place] on Mental Illness (www.[place].serene.org):: 222.368.6725 or 454-104-9546. National Suicide Prevention Line (www.mentalhealthmn.org): 044-908-UPLZ [8255] Mental Health Association of [place] (www.mentalhealth.org): 602.862.8865 or 750-724-8999. Signatures EMIGDIO LEE (RN)[Signed 11:57] Authored: Summary of Progress and Discharge Plan, Discharge Teaching Checklist NEMEA MARTE (Clinical Pathology Laboratory Aide)[Signed 16:35] Authored: Summary of Progress and Discharge Plan, Psychiatry Follow-Up, Provider Information, Resources Interface, Audio Video Technician - 08/23/2010 10:43 PM CDT Clinical Pathology Laboratory Aide Note - :: Pt admitted with suicidal ideation having overdosed on Dilaudid and Klonopin. Very depressed and overwhelmed with divorce of one year and worries about finances. Caring for two sons whom she shares joint custody with ex-. 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 Parents concerned because the depression and hopeless outlook on life has been life long. Mother reports that pt has struggled with feeling happy and contented since she was a young child. Pt very teary today and does not like being . This weekend she went to ex-'s home to ask for another chance with him presenting him with the [place] Plaque he gave her and their [place] Candle from their wedding. Her ex told her he was moving on and didn't know what else to say. She then saw his new girlfriend playing with her children on the floor and left going home and impulsively taking her overdose. Patient shares custody of her two boys: Zev age 8 and Ankur age 6. They are currently residing with father and grandparents. Pt does report using alcohol socially. 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 Parents help financially and also help her care for her children. This is patient's first inpatient admission. She has been encouraged to attend all unit programming and meet with her staff as needed. She sees Liliya DAVIDSON and will schedule therapist at [facility] in [place]. Flowsheets #1 and #4 completed and the Patient Profile has been updated. NEEMA Bledsoe (Clinical Pathology Laboratory Aide)[Signed 16:07] Authored: Clinical Pathology Laboratory Aide Note Interface, Audio Video Technician - 08/23/2010 10:41 PM CDT General Information - Date initially 00:00 attended OT: Clinical Impression - Affect: restricted - Orientation: oriented to/ person/ place/ time - Appearance & ADLs: general cleanliness observed in most areas - Attention to Internal no observed signs Stimuli: - Interaction Skills: interacts with prompts, minimal response - Ability to does so with prompts Communicate Needs: - Verbal Content: appropriate to topic - Ability to Maintain maintains appropriate physical boundaries; Boundaries: maintains appropriate verbal boundaries - Participation: Participated with occasional encouragement. - Concentration: concentrates 15 minutes, with structure, Pt reports difficulty concentrating. - Follows and independently follows 1 step verbal directions Comprehends Directions: - Memory: long and short term memory intact - Organization: needs occasional assistance - Decision Making: Made simple choices during OT clinic; pt reports difficulty making decsions outside structured setting. - Planning and Problem occasionally needs assist/feedback Solving: - Ability to Apply and applies within group structure Learn Concepts: - Frustrations/Stress utilizes coping skills with assistance Tolerance: - Level of Insight: identifies needs with structure/support - Self Esteem: needs further assessment - Social Supports: has knowledge of support systems - General Observations: Pt attended OT sessions today, participating in group re: goal planning and overcoming obstacles. Offered comments when encouraged and supported. Appropriate with peers and staff. Pt also participated in OT clinic group, selecting individual task and proceeding with work process toward completion. Plan - Plan: Provide stucture, support and encouragement. Will offer education on coping strategies and life management skills. Assist pt. to increase self awareness regarding mental health issues and self care strategies. MAGDA Tiwari (TRIVEDI)[Signed Az-24-2011 15:08] Authored: General Information, Clinical Impression, Plan documented in this encounter Plan of Treatment Not on filedocumented as of this encounter Visit Diagnoses Not on filedocumented in this encounter Care Teams Dean For Student Affairs Relationship Specialty Start Date End Date Melvin Palacios MD PCP - General 06/22/99 09/20/10 [id number] [id number] documented as of this encounter
--- OUTSIDE RECORDS SUMMARY | 2022-04-02 12:45 | XMS_ITS | Encounter Summary ---
:1975 Author Organization [place] Address [address] [facility] [place] [address] Care Team Providers Name Role Phone Melvin Palacios MD Primary Care Provider Encounter Details Date Type Department Care Team Description 07/04/2010 Historic Notes INTERFACED REPORT Interface, Transcript onMD Social History Tobacco Use Types Packs/Day Years Used Date Smoking Tobacco: Every Day Comments: 1-2 every other day Alcohol Use Standard Drinks/Week Comments Yes 0 (1 standard drink = 0.6 oz pure alcoho l) 1 qo week Sex Assigned at Date Recorded Not on file documented as of this encounter Progress Notes Interface, Sdet - 08/23/2010 10:32 PM CDT Clinical Actuarial Mathematician Note - :: Met with patient to dicuss her treatment plan and outpatient supports. She spoke with the software integrator of her sabianist and will now join a divorce care group to help her move on after her divorce. She and the boys will be living with her parents until she feels more stable. She is not suicidal today and seems to be looking forward to the sabianist divorce group. She found out that a [employer] employee donated some PTO time to her and she will apply for short-term disability. Pt would like to discharge on evening so she will discuss this with Dr. Rose. Pts discharge paperwork is completed. NEEMA Bledsoe (Clinical Actuarial Mathematician)[Signed 17:11] Authored: Clinical Actuarial Mathematician Note documented in this encounter Plan of Treatment Not on filedocumented as of this encounter Visit Diagnoses Not on filedocumented in this encounter Care Teams Players Assistant Relationship Specialty Start Date End Date Melvin Palacios MD PCP - General 06/22/99 09/20/10 [id number] [id number] documented as of this encounter
--- OUTSIDE RECORDS SUMMARY | 2022-04-02 12:45 | XMS_ITS | Encounter Summary ---
:1975 Author Organization [place] Address [address] [place] [address] Care Team Providers Name Role Phone Melvin Palacios MD Primary Care Provider Reason for Visit Reason Onset Date Comments Patient/info Update 11/14/2009 Encounter Details Date Type Department Care Team Description 11/14/2009 Telephone [facility] Harris Jung MD Patient/info Update [address] [phone] (Wo rk) Social History Tobacco Use Types Packs/Day Years Used Date Smoking Tobacco: Every Day Comments: 1-2 every other day Alcohol Use Standard Drinks/Week Comments Yes 0 (1 standard drink = 0.6 oz pure alcoho l) 1 qo week Sex Assigned at Date Recorded Not on file documented as of this encounter Miscellaneous Notes Telephone Encounter - Harris Jung - 11/14/2009 4:37 PM CDT I did remove the IUD to do the bx HARRIS JUNG MD Telephone Encounter - Harris Jung - 11/14/2009 4:37 PM CDT Message copied by HARRIS JUNG on FriNov 14, 2009 4:37 PM ------ Message from: SARI VAZQUEZ Created: FriNov 14, 2009 2:26 PM Regarding: IUD removal, endometial bx, DOS: 11/07/09 Documentation is not clear about the IUD removal if it was done or not. Endometrial bx looks like it may have been done if I check the path; but unclear in the chart. I will hold this one until clarification is made. sari documented in this encounter Plan of Treatment Not on filedocumented as of this encounter Visit Diagnoses Not on filedocumented in this encounter Care Teams Transitional Studies Instructor Relationship Specialty Start Date End Date Melvin Palacios MD PCP - General 06/22/99 09/20/10 [id number] [id number] documented as of this encounter
--- OUTSIDE RECORDS SUMMARY | 2022-04-02 12:45 | XMS_ITS | Encounter Summary ---
:1975 Author Organization [place] Address [address] [place] [address] Care Team Providers Name Role Phone Melvin Palacios MD Primary Care Provider Encounter Details Date Type Department Care Team Description 09/20/2009 Emergency room [facility] Harris Mcmahan MD Hospital Results [facility] [address] [place], [place] [address] (Wo rk) Social History Tobacco Use Types Packs/Day Years Used Date Smoking Tobacco: Every Day Comments: 1-2 every other day Alcohol Use Standard Drinks/Week Comments Yes 0 (1 standard drink = 0.6 oz pure alcoho l) 1 qo week Sex Assigned at Date Recorded Not on file documented as of this encounter Progress Notes Harris Mcmahan - 09/21/2009 3:38 PM CDT FINAL CHIEF COMPLAINT: Left-sided abdominal pain. HISTORY OF PRESENT ILLNESS: Dariana Valdez is a 33-year-old female who developed onset of left-sided abdominal pain three days ago, tolerable until today when it became much worse and crampy. Her employer drove her to the ED, Dr. Hauser from [facility]. She states that she does not know when her last normal menstrual period was because she is on Mirena contraceptive, she has an IUD in. She says the pain is worse with walking. She had a 6 mm stone removed on the right. Still has her appendix.She has had no fever, nausea or vomiting, no symptoms, no new vaginal discharge, no malodorous discharge. Again, it is not new or unchanged. Last normal bowel movement was last night, not hard. She h as not felt constipated. Bumps in the car hurt coming in. PAST MEDICAL HISTORY: Depression, anxiety. She is a 2, para 2. MEDICATIONS: Klonopin, Celexa, Ambien, Mirena. ALLERGIES: Intolerant to codeine. Apparently, intolerant to IVP dye (got hot and shaky, no hives orshortness of breath). SOCIAL HISTORY: . Sexually active with her boyfriend. Never had any STDs. Smokes a half pack per day. Occasional alcohol. Has two children. REVIEW OF SYSTEMS: See HPI. All other systems negative. OBJECTIVE: VITAL SIGNS: Temperature 98.4, heart rate 73, respiratory rate 18, blood pressure 129/88, room air sat 99%. CONSTITUTIONAL: Appears her stated age, alert and oriented x3. She is quite uncomfortable. Points to the left lateral abdomen, just lateral to the umbilicus. SKIN: [place], warm, dry. EYES: Pupils are equal, round and respond to light. EOMI. Lids and conjunctivae normal. ENT: TMs and canals clear. Pharynx clear. Moist oral mucosa. Nares patent. LYMPHATICS: No cervical adenopathy. CARDIOVASCULAR: Regular S1, S2, no extra sounds. RESPIRATORY: No increased work of breathing. Lungs clear. GASTROINTESTINAL: Abdomen soft. Tender just left of midline. No involuntary guarding or rebound tenderness. BACK: No CV angle tenderness. NEUROLOGIC: Nonfocal. Cranial nerves intact. PELVIC: Exam revealed normal perineum, normal vaginal mucosa, no blood, no discharge. Normal-appearing cervix except for the IUD string coming down. No cervical motion tenderness. Minimally tender on bimanual exam at the left superior adnexal region. This was after pain medicine. EMERGENCY ROOM COURSE: Ultrasound had been done in clinic, and she was sent over. They did not visualize the left ovary. I did a CT scan that showed the left ovary with a 1.6 cm cyst which was felt to be physiologic. A tiny nonobstructing stone in the upper pole of the left kidney, measuring 0.3 cm. Tiny probable cortical cyst in the left mid kidney laterally; it is too small to characterize definitively. IUD in uterus. Comprehensive metabolic profile normal. Lipase at upper limits of normal at 251. hCG negative. CBC with differential normal. Sed rate normal. Urine showed a lot of squamous epithelial cells, so the minimally increased 2-5 white cells in the urine with trace leukocyte esterase are probably unremarkable, but I will do a lab add-on for a culture just in case. Currently pending are her GC, chlamydia and wet prep. If these are normal, I am going to send her home on anti-inflammatory analgesic medications, and probably start Cipro for possible UTI. If the wetprep is negative, nothing further, but she will need to follow up at Dr. Hauser's office, where she is a patient, in 1-2 days for reevaluation, sooner return to the ED if new or worsening symptoms. IMPRESSION: Subacute left-sided abdominal/pelvic pain. PLAN: As outlined above. Electronically signed on 09/21/2009 15:37 by HARRIS MCMAHAN MD MT: [id number] Name: DARIANA VALDEZ MRN: [id number] Account: [id number] : 1975 Visit Date: 09/20/2009 Document: [id number] documented in this encounter Plan of Treatment Not on filedocumented as of this encounter Visit Diagnoses Not on filedocumented in this encounter Care Teams Physical Science Aide Relationship Specialty Start Date End Date Melvin Palacios MD PCP - General 06/22/99 09/20/10 [address] [id number] documented as of this encounter
--- OUTSIDE RECORDS SUMMARY | 2022-04-02 12:45 | XMS_ITS | Encounter Summary ---
:1975 Author Organization [place] Address [address] [place] [id number] Care Team Providers Name Role Phone Melvin Palacios MD Primary Care Provider Esmer Roland MD Primary Care Provider Encounter Details Date Type Department Care Team Description 07/01/2010 Historic Press Set Up INTERFACED REPORT Cooper MD 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 IDENTIFICATION: Juan Carlos Valdez is a 34-year-old female, mother of 2 minor children, ages 8 and 6, residing in the household by herself, in the process of a divorce. CHIEF COMPLAINT AND PRESENT MEDICAL HISTORY: Of her own accord called 911 after ingesting 6 tablets of Dilaudid 2 mg and Klonopin 0.5 mg x5 tablets. Stressors: She is going through a difficult divorce for the past 2 years, sharing custody of 2 children, ages 8 and 6, 50/50 and basically is working at 2 jobs. She delineates that she works at least full-time basis at the [employer] and then a 2nd clinic, [facility] [employer], in the evening until 10 p.m.; therefore, [facility] [employer] [facility] from 8 until 4 p.m. She identifies that on the day of admission she was unable to make the house payment for the month. So, her ex- suggested that they make a new commitment. Had gone over with a plaque that they had both vouched to, additionally also the candle that they had lit at their wedding, but she discovered his new girlfriend was playing on the floor with her children. This individual had slighted her and has caused a rift in the patient. She reiterates, It was a 3rd constitution party. They were sitting on the floor, playing with my children, playing my games. She indicates she had an object with her, including an mai, and also some of her wedding paraphernalia, including the candle that they had lit. She indicates that also 12 years of her life she met her ex-, age 40, in 1998. They have been together ever since. He works 2 jobs at [employer] making bands in the shop, 2nd job at [employer]. He too is a resident in [place] and lives independently. She indicates his girlfriend and him had reunited on Facebook in the summer of 2008. She had discovered some phone calls and that he would use the computer in a sly manner. I would come downstairs, and the computer would be turned. She indicates that last year actually was a good year. She invited him over, and she begged him to try again, but he promptly told her that he was not in the same place. This prompted her to go to her own house and overdose. Her current medication regimen has been stable, as prescribed by her primary nurse practitioner at [facility]. She reiterates that one undermining factor is she uses wine to medicate, particularly the month of May she drank excessively and reports drinking every other week and very tearful throughout the interview. Additional information provided by the family members; both of her parents, who stand by her, additionally also 2 brothers and particularly her older brother, then the ex-'s sister. It would appear that certainly at the present time the family sees that she knows she needs help and counseling, works at 2 jobs. The result is that she just generally feels overwhelmed with her current station. 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 The main focus has been the financial distress, and he still pays half of the activities of the various scholastic events of the 2 sons. REVIEW OF SYSTEMS: From a medical standpoint, kidney stone removed in 2008; she identifies 7 mm and had crumbled. PSYCHIATRIC REVIEW OF SYSTEMS: She has also been given to panic sensation and panic attacks despite the medications. The outpatient therapist, she has very good rapport with and feels that it is a good anchor in her station. MENTAL STATUS EXAMINATION: Shows the patient quite anxious and markedly emotionally labile and throughout the interview is commenting on the fact that she needs to start over. One does remind her to remove the variable of the alcohol and see what extent this induces undo depression. PAST MEDICAL HISTORY: It should be noted, at least for the present time, past medical history: Kidney stone, last one was 2008, at which time the patient required surgery for removal, then the history of depression and panic sensation, particularly panic attacks, a bad one at the beginning of 05/2010. ALLERGIES: Codeine. SOCIAL HISTORY: Does smoke, admits to 1 pack a day, 1 cigarette today. Likes to drink, and it gives her comfort. The formal review of systems from a medical standpoint per primary care. The formal mental status examination shows her well oriented to person, place and time with clear insight and introspective ability. Speech is lucid, and her thoughts are clear and linear. No psychotic symptoms, hallucinations or delusions. Suicidal thoughts are denounced and no homicidal ideation and intention. Judgment, foresight and planning appear compromised because of her unresolved distress. DIAGNOSES: [place] I: 1. Depression, major, recurrent. 2. Panic disorder, part of anxiety. [place] III: Per primary care. [place] IV: Stressors: Moderate. [place] V: Global Assessment of Functioning at 10-20 at the time of admission. Last year's highest: 30-40. TREATMENT: 1. Restart the Pristiq 50 mg q.a.m. 2. Lexapro 20 mg at bedtime. 3. Klonopin 0.5 each day at bedtime. 4. Ambien at 5 each day at bedtime. Will increase to 10 each day at bedtime, may repeat. 5. Add trazodone 100 each day at bedtime. 6. Kalyn 1 daily at bedtime. 7. Consideration for major tranquilizer because of the breakthrough symptoms of anxiety appears in order. In this regard, will use Seroquel at 25 mg t.i.d. Electronically signed on 07/08/2010 21:51 by ALLEN BAUTISTA MD MT: as Name: JUAN CARLOS VALDEZ MRN: [id number] Account: [id number] : 1975 Admitted: [id number] Document: [id number] cc: [facility] Ángela Hammonds RN HMOVING PLANT OPERATOR documented in this encounter Plan of Treatment Not on filedocumented as of this encounter Visit Diagnoses Not on filedocumented in this encounter Care Teams Pourer Buggy Ladle Relationship Specialty Start Date End Date Melvin Palacios MD PCP - General 06/22/99 09/20/10 [id number] [id number] Esmer Roland MD PCP - General Family Practice 09/21/10 01/29/17 documented as of this encounter
--- OUTSIDE RECORDS SUMMARY | 2022-04-02 12:45 | XMS_ITS | Encounter Summary ---
:1975 Author Organization [place] Address [address] [place] [address] Care Team Providers Name Role Phone Melvin Palacios MD Primary Care Provider Reason for Visit Reason Comments Abnormal Uterine Bleeding abnormal bleeding for severa l months Encounter Details Date Type Department Care Team Description 11/07/2009 Office Visit [facility] Cayetano Jung Adjustm ent Disorder with Anxiety (Primary Dx); [facility] [place] Abnormal Uterine Bleeding [id number] [address] [facility] [address] [place], [place] [address] Social History Tobacco Use Types Packs/Day Years Used Date Smoking Tobacco: Every Day Comments: 1-2 every other day Alcohol Use Standard Drinks/Week Comments Yes 0 (1 standard drink = 0.6 oz pure alcoho l) 1 qo week Sex Assigned at Date Recorded Not on file documented as of this encounter Last Filed Vital Signs Vital Sign Reading Time Taken Comments Blood Pressure 118/70 11/07/2009 3:55 PM CDT Pulse 92 11/07/2009 3:55 PM CDT Temperature 37.1 ??C (98.8 ??F) 11/07/2009 3:55 PM CDT Respiratory Rate - - Oxygen Saturation 99% 11/07/2009 3:55 PM CDT Inhaled Oxygen Concentration - - Weight 66.9 kg (147 lb 8 oz) 11/07/2009 3:55 PM CDT Height 168.9 cm (5' 6.5) 11/07/2009 3:55 PM CDT Body Mass Index 23.45 11/07/2009 3:55 PM CDT documented in this encounter Progress Notes Cayetano Jung - 11/07/2009 4:56 PM CDT Dariana Valdez is a 34 year old female Mirena IUD for contraception presents for eval of a several month hx of menometrorrhagia. She has noted post coital bleeding lasting several days requiring her to change protection q 2 hrs. In the last month she states that she has bled > than 1/2 of the days. She notes tiredness and fatigue w her menses. She had a Hgb 13.9 on 09/20/09. I also rev the results of the abd pelvic CT and U/S from 09/20/09 when she was seen in the ER for pelvic and LLQ pain. She denies a hx of thyroid sx, galactorhea but does note more oilyness to her complexion and some scant dark hairs on her upper lip. Past Medical History Diagnosis Date ??? Calculus of Kidney ??? Depressive Disorder, not Elsewhere Classified ??? Anxiety State, Unspecified History Social History ??? Marital Status: Single Spouse Name: N/A Number of Children: N/A ??? Years of Education: N/A Social History Main Topics ??? Tobacco Use: Yes 1-2 every other day ??? Alcohol Use: Yes 1 qo week ??? Drug Use: No ??? Sexually Active: Yes -- Male partner(s) Control/ Protection: IUD Other Topics Concern ??? Not on file Social History Narrative ??? No narrative on file EXAM: Constitutional: healthy, alert and no distress Head: Normocephalic. No masses, lesions, tenderness or abnormalities Neck: Neck supple. No adenopathy. Thyroid symmetric, normal size,, Carotids without bruits. ENT: NEGATIVE for ear, mouth and throat problems Cardiovascular: negative, PMI normal. No lifts, heaves, or thrills. RRR. No murmurs, clicks gallops or rub Respiratory: negative, Percussion normal. Good diaphragmatic excursion. Lungs clear Gastrointestinal: Abdomen soft, non-tender. BS normal. No masses, organomegaly Genitourinary: EG BUS wnl, Spec exam, nl rugae no lesions, multip cx, IUD removed no lesions, endometrial bx done, BM exam parous uterus smooth non tender, adenexa without masses or tenderness, RV exam: nl sphincter tone, min hemorhoid tissue, no U/S lig nodularity or masses after obtaining informed co nsent pt prepped in the usual sterile fashion and endometrial biopsy preformed w a pipelle type sampler without difficulty or complication w a thorough sampling and acceptable specimen. The uterus sounded to 7 cm. the pt tolerated the procedure well and was D/C'd in good condition. Signs and Sx's of complications disc, pt to call. pt will call in 1 week to rev path report and develope an approp plan. 309.24 Adjustment Disorder with Anxiety (primary encounter diagnosis) Comment: stable at present Plan: cont w present meds 626.9BB Abnormal Uterine Bleeding Comment: Risks, benefits, and alternative modes of therapy discussed at length. Pathophysiology of the disease process reviewed, all of the patients questions answered and informed consent obtained. Pt would like to remove the IUD, do an endometrial bx and begin Halima. Instrucitons and indications for backup were thoroughly rev. All her ?'s were answered. Alt to Halima were also rev she would like to start Halima Plan: HALIMA 3-0.02 MG PO TABS, TSH W/FREE T4 REFLEX, SURGICAL PATHOLOGY Will call in 1 wk to rev path and RTC in 1 month for annual exam , pap and to rev bleeding calender documented in this encounter Nursing Notes 11/07/2009 3:45 PM CDT >> MAGDA Goldman Nov 07, 2009 4:22 PM Patient presents with: Abnormal Uterine Bleeding - abnormal bleeding for several months Initial BP 118/70 Pulse 92 Temp(Src) 98.8 ??F (37.1 ??C) (Oral) Ht 5' 6.5 (1.689 m) Wt 147 lb 8 oz (66.906 kg) SpO2 99% Estimated Body mass index is 23.45 kg/(m^2) as calculated from the following: Height as of this encounter: 5' 6.5(1.689 m). Weight as of this encounter: 147 lb 8 oz(66.906 kg).. BP completed using cuff size: regular documented in this encounter Plan of Treatment Not on filedocumented as of this encounter Procedures Procedure Name Priority Date/Time Associated Diagnosis Comme nts HCL TSH W/FREE T4 Routine 11/07/2009 4:36 PM Abnormal Uterine Results for this REFLEX CDT Bleeding procedure are i n the results section. CL AFF SURGICAL Routine 11/07/2009 12:00 AM Abnormal Uterine R esults for this PATHOLOGY CDT Bleeding procedure are i n the results section. documented in this encounter Results TSH W/FREE T4 REFLEX (11/07/2009 4:36 PM CDT) P athologist Signature TSH 1.14 0.4 - 5.0 [facility] Specimen Anatomical Collection Method Collection Time Receive d Time (Source) Location / / Volume Laterality 11/07/2009 4:36 PM 0 4:37 CDT PM CDT Cayetano Jung MD LABORATORY Performing Organization Address City/State/ZIP Code Phon e Number [facility] [address] [place] [address] [facility] SURGICAL PATHOLOGY (11/07/2009 12:00 AM CDT) Component Value Ref Test Analysis Performed At [facility] gist Range Method Time Signature Copath Report Patient Name: DARIANA VALDEZ MR#: [id number] Specimen #: [id number] Collected: 11/07/2009 Received: 11/08/2009 Reported: 11/09/2009 14:35 Ordering Phy(s): CAYETANO JUNG SPECIMEN(S): Endometrial biopsy FINAL DIAGNOSIS: Endometrium, biopsy - Inactive appearing endometrium with st romal changes suggestive of exogenous hormonal effect. ??Stromal d egeneration and breakdown present. ??No evidence of hyperplasia or malig glenn. Electronically signed out by: Blake Scruggs M.D. CLINICAL HISTORY: Abnormal uterine bleeding for several months. GROSS: The specimen is labeled endometrial biopsy and it consists of friable fragments of mucoid sanchez to nichols material aggregating to 1 x 1 by less than 0.1 cm. ??Entirely submitted. ??KARLEE/imani MICROSCOPIC: There are fragments of inactive appearing endometrium with s tromal changes consistent with exogenous hormonal effect. ??Areas o f stromal degeneration and breakdown are present. ??Small fragments of benign endocervical tissue are present. ??An endometrial polyp is n ot identified. KARLEE/imani 11-09-09 TESTING LAB LOCATION: [facility] [address] [place], [place] ??[address] COLLECTION SITE: Client: [facility] Location: LVOB (R) Specimen (Source) Anatomical Collection Method Collection Time Re ceived Time Location / / Volume Laterality 11/07/2009 11/08/2009 3:23 PM CDT Cayetano Jung MD LABORATORY Performing Organization Address City/State/ZIP Code Phon e Number [facility] documented in this encounter Visit Diagnoses Diagnosis Adjustment disorder with anxiety - Prima ry Abnormal uterine bleeding Unspecified disorder of menstruation and other abnormal bleeding from female genital tract documented in this encounter Care Teams Biztalk Software Developer Relationship Specialty Start Date End Date Melvin Palacios MD PCP - General 06/22/99 09/20/10 [address] [id number] documented as of this encounter
--- OUTSIDE RECORDS SUMMARY | 2022-04-02 12:45 | XMS_ITS | Encounter Summary ---
:1975 Author Organization [place] Address [facility] access hospital0 [facility] [place] [address] Care Team Providers Name Role Phone Melvin Palacios MD Primary Care Provider Esmer Roland MD Primary Care Provider [phone] Encounter Details Date Type Department Care Team Description 07/01/2010 Historic Results [facility] Pancho Rodriguez Emergency Department MD [place] [address] [facility] [address] [place] [address] [place] [address] (Wo rk) Social History Tobacco [...] Priority Date/Time Associated Diagnosis Comme nts EKG 12 LEAD Routine 07/01/2010 6:30 PM Results f or this SWITCH ENGINEER procedure are i n the results section . documented in this encounter Results EKG 12 LEAD (07/01/2010 6:30 PM SWITCH ENGINEER) Component Value Ref Range Test Analysis Performed Pathologis t Method Time At Signature Ventricular Rate 77 BPM RADIOLOGY RESULTS Atrial Rate 77 BPM RADIOLOGY RESULTS [place] Interval 112 ms RADIOLOGY RESULTS QRS Duration 88 ms RADIOLOGY RESULTS QT 366 ms RADIOLOGY RESULTS QTc 414 ms RADIOLOGY RESULTS P [place] 16 degrees RADIOLOGY RESULTS R AXIS 66 degrees RADIOLOGY RESULTS T [place] 24 degrees RADIOLOGY RESULTS Interpretation Sinus rhythm RADIOLOGY ECG Normal ECG RESULTS Unconfirmed report - interpretation of this ECG is compute r generated - see medical record for final interpretation Specimen Anatomical Collection Method Collection Time Receive d Time (Source) Location / / Volume Laterality 07/01/2010 6:30 PM 1 6:23 SWITCH ENGINEER PM SWITCH ENGINEER Ángela Rodriguez MD ECG ORDERABLES Performing Organization Address City/State/[facility] Code Phon e Number RADIOLOGY RESULTS documented in this encounter Visit Diagnoses Not on filedocumented in this encounter Care Teams Hooking Machine Operator Relationship Specialty Start Date End Date Melvin Palacios MD PCP - General 06/22/99 09/20/10 [address] [place] [address] Esmer Roland MD PCP - General Family Practice 09/21/10 01/29/17 documented as of this encounter
--- OUTSIDE RECORDS SUMMARY | 2022-04-02 12:45 | XMS_ITS | Encounter Summary ---
:1975 Author Organization [place] Address [address] [place] [address] Care Team Providers Name Role Phone Melvin Palacios MD Primary Care Provider Reason for Visit Reason Onset Date Comments Refill Request 10/23/2009 Sonu Encounter Details Date Type Department Care Team Description 10/23/2009 Refill [facility] Melvin Palacios MD Refill Request ([facility] [place] [address] anish) [address] [place] [address] [place] [address] [phone] Social History Tobacco Use Types Packs/Day Years Used Date Smoking Tobacco: Every Day Comments: 1-2 every other day Alcohol Use Standard Drinks/Week Comments Yes 0 (1 standard drink = 0.6 oz pure alcoho l) 1 qo week Sex Assigned at Date Recorded Not on file documented as of this encounter Miscellaneous Notes Telephone Encounter - Arlene Lopez - 10/23/2009 12:09 PM CDT Walked scripts for klonopin and zolpidem to [facility] pharmacy. Arlene Lopez RN Telephone Encounter - Lissette Hobbs - 10/23/2009 11:15 AM CDT Gave refill Sushma Hobbs M.D Telephone Encounter - Maricarmen Srinivasan - 10/23/2009 10:30 AM CDT RF request from pharmacy for Klonopin and Ambien. Last OV with PCP 08/16/09. Unable to refill per SO protocol, to MD for auth, PCP out of office so forwarded to another MD for review. Telephone Encounter - Deidre Alas - 10/23/2009 9:43 AM CDT LAST FILL DATE: KLONOPIN=07/31/09, AMBIEN=09/11/09 QTY: KLONOPIN=40, AMBIEN=30 Camilo Hammonds [facility] documented in this encounter Plan of Treatment Not on filedocumented as of this encounter Visit Diagnoses Diagnosis Adjustment disorder with anxiety - Prima ry documented in this encounter Care Teams Manager Financial Systems Relationship Specialty Start Date End Date Melvin Palacios MD PCP - General 06/22/99 09/20/10 [address] [id number] documented as of this encounter
--- OUTSIDE RECORDS SUMMARY | 2022-04-02 12:45 | XMS_ITS | Encounter Summary ---
:1975 Author Organization [place] Address [address] [place] [address] Care Team Providers Name Role Phone Melvin Palacios MD Primary Care Provider Encounter Details Date Type Department Care Team Description 07/02/2010 Historic Notes INTERFACED REPORT James Bautista MD [address] [facility]. [address] [place] [address] (Wo rk) Social History Tobacco Use Types Packs/Day Years Used Date Smoking Tobacco: Every Day Comments: 1-2 every other day Alcohol Use Standard Drinks/Week Comments Yes 0 (1 standard drink = 0.6 oz pure alcoho l) 1 qo week Sex Assigned at Date Recorded Not on file documented as of this encounter Progress Notes Allen Bautista - 08/23/2010 10:41 PM CDT Problem List MENTAL HEALTH: ; Active Admitting; MENTAL HEALTH OVERDOSE: ; Inactive Admitting; OVERDOSE Interval History - Interval History: admission dictation done Signatures ALLEN BAUTISTA)[Signed 17:56] Authored: Problem List, Interval History documented in this encounter Plan of Treatment Not on filedocumented as of this encounter Visit Diagnoses Not on filedocumented in this encounter Care Teams Cut Filer Relationship Specialty Start Date End Date Melvin Palacios MD PCP - General 06/22/99 09/20/10 [address] [id number] documented as of this encounter
--- OUTSIDE RECORDS SUMMARY | 2022-04-02 12:45 | XMS_ITS | Encounter Summary ---
:1975 Author Organization [facility] Address [address] [place] [address] Care Team Providers Name Role Phone Melvin Palacios MD Primary Care Provider Encounter Details Date Type Department Care Team Description 09/20/2009 Results Only [facility] Harris James MD Hospital Results EMERGENCY PHYSI [facility] [address] [place], [place] [address] (Wo rk) Social History [...] Name Priority Date/Time Associated Diagnosis Comme nts CT SCAN Routine 09/20/2009 2:53 PM Results f or this ABDOMEN/PELVIS CDT procedure are in the results section. documented in this encounter Results CT SCAN ABDOMEN/PELVIS (09/20/2009 2:53 PM CDT) Anatomical Region Laterality Modality Other Specimen (Source) Anatomical Collection Method Collection Time Re ceived Time Location / / Volume Laterality 09/20/2009 2:53 PM CDT Impressions 09/20/2009 4:[address] ABDOMEN AND PELVIS WITH CONTRAST Apri l 2009 2:53 PM HISTORY: Left-sided abdominal pain. Hist ory of renal stones and ovarian cysts. TECHNIQUE: 100 mL Optiray 350 IV was adm inistered without complication. After contrast administrat ion, volumetric helical sections were acquired from the lung bas es to the ischial tuberosities. Coronal images were also r econstructed. COMPARISON: Ultrasound of the pelvis per formed earlier today. CT of the abdomen and pelvis dated 04/06/2008. FINDINGS: The lung bases are clear. The liver, gallbladder, spleen, adrenal glands, and pancreas are unremar kable. A few tiny probable cortical cysts in the left kidney are to o small to characterize. Mildly prominent left renal pelvis may r epresent an anatomic variant extrarenal pelvis. There is a 0.3 cm non obstructing stone in the upper pole of the left kidney (series 2 image 30). Normal caliber small bowel and colon. No evidence for bowel o bstruction. Unremarkable appendix is noted. IUD appears to be in good position within the uterus. The right ovary has an unremarka ble CT appearance. The left ovary, which was not seen on the ultraso und performed earlier today, is located somewhat anteriorly (series 2 image 73). There is a 1.6 cm left ovarian cyst, which is likely physi ologic. The left ovary is otherwise unremarkable. No free fluid is seen in the pelvis. No aggressive appearing bone lesions are se en. IMPRESSION: 1. Tiny nonobstructing stone in the uppe r pole of the left kidney measures 0.3 cm. 2. Tiny probable cortical cyst in the le ft mid kidney laterally is too small to characterize definitively. 3. IUD in the uterus. 4. A 1.6 cm left ovarian cyst is most li alejandro physiologic. Harris James MD [employer] documented in this encounter Visit Diagnoses Not on filedocumented in this encounter Care Teams Customer Quality Engineer Relationship Specialty Start Date End Date Melvin Palacios MD PCP - General 06/22/99 09/20/10 [address] [id number] documented as of this encounter
--- OUTSIDE RECORDS SUMMARY | 2022-04-02 12:45 | XMS_ITS | Encounter Summary ---
:1975 Author Organization [facility] Address [address] [place] [address] Care Team Providers Name Role Phone Melvin Palacios MD Primary Care Provider Encounter Details Date Type Department Care Team Description 02/26/2010 [facility] Vit jeffries D Deficiency [facility], [address] [place] [address] Social History Tobacco Use [...] Procedure Name Priority Date/Time Associated Comments Diagnosis HCL 25 HYDROXYVITAMIN Routine 02/26/2010 4:05 PM Vitamin D Results for this D2 & D3 CDT Deficiency procedure are i n the results section. documented in this encounter Results VITAMIN D DEFICIENCY SCREENING (02/26/2010 4:05 PM CDT) P athologist Signature 25 [place] Vit D2 47 ug/L [facility] 25 [place] Vit D3 13 ug/L [facility] 25 [place] Vit D 60 30 - 75 [facility] total ug/L [facility] Comment: Season, race, dietary intake, and treatm ent affect the concentration of 93-lczqvep-Pspgcdl D. Values may decrea se during winter months and increase during summer months. Values less than 30 ug/L may indicate Vitamin D deficiency. Specimen Anatomical Collection Method Collection Time Receive d Time (Source) Location / / Volume Laterality 02/26/2010 4:05 PM 0 4:07 CDT PM CDT Aleksandra Jimenez PA-C LABORATORY Performing Organization Address City/State/ZIP Code Phon e Number [facility] [address] [place] [address] [facility] documented in this encounter Visit Diagnoses Diagnosis Vitamin D deficiency Unspecified vitamin D deficiency documented in this encounter Care Teams Assistant Art Director Relationship Specialty Start Date End Date Melvin Palacios MD PCP - General 06/22/99 09/20/10 [address] [place] [address] documented as of this encounter
--- OUTSIDE RECORDS SUMMARY | 2022-04-02 12:45 | XMS_ITS | Encounter Summary ---
:1975 Author Organization [place] Address [address] [place] [address] Care Team Providers Name Role Phone Melvin Palacios MD Primary Care Provider Reason for Visit Reason Onset Date Comments Sinus Problem 06/11/2010 Sinus infection Encounter Details Date Type Department Care Team Description 06/11/2010 Telephone [facility] Melvin Palacios MD Sinus Problem ([facility] [place] [address] [place] infection) [address] 67[address] [phone] Social History Tobacco Use Types Packs/Day Years Used Date Smoking Tobacco: Every Day Comments: 1-2 every other day Alcohol Use Standard Drinks/Week Comments Yes 0 (1 standard drink = 0.6 oz pure alcoho l) 1 qo week Sex Assigned at Date Recorded Not on file documented as of this encounter Miscellaneous Notes Telephone Encounter - sEmer Roland - 06/11/2010 4:29 PM CST I will send it over. This maybe viral, if she can wait and see if improving, after 7 days, then start the abx, that would be best ELAIN ENAMELING SUPERVISOR Telephone Encounter - Mayela Reese - 06/11/2010 4:03 PM CST Pt thinks she may have a sinus infection. She has been complaining of a sore throat and neck pain x 2 days. Really bad headache behind left eye yesterday. Increased sinus congestion which is worse in the am. Left eye feels pressure like. Strep test was negative. Low grade fever. Temp here at the clinic is 99.3. Pt wondering if you could call in an antibiotic for her. Mayela Reese RN ELAIN ENAMELING SUPERVISOR documented in this encounter Plan of Treatment Not on filedocumented as of this encounter Visit Diagnoses Diagnosis Acute maxillary sinusitis - Primary documented in this encounter Care Teams Pizzamaker Relationship Specialty Start Date End Date Melvin Palacios MD PCP - General 06/22/99 09/20/10 [address] [id number] documented as of this encounter
--- OUTSIDE RECORDS SUMMARY | 2022-04-02 12:45 | XMS_ITS | Encounter Summary ---
:1975 Author Organization [facility] Address [address] [place] [address] Care Team Providers Name Role Phone Melvin Palacios MD Primary Care Provider Reason for Visit Reason Onset Date Comments Refill Request 09/09/2009 ZOLPIDEM 10MG Encounter Details Date Type Department Care Team Description 09/09/2009 Refill [facility] Melvin Palacios MD Refill Request (ZOLPIDEM [facility] [place] [address] [place] 10MG) [address] [place], [place] [address] [phone] Social History Tobacco Use Types Packs/Day Years Used Date Smoking Tobacco: Every Day Comments: 1-2 every other day Alcohol Use Standard Drinks/Week Comments Yes 0 (1 standard drink = 0.6 oz pure alcoho l) social Sex Assigned at Date Recorded Not on file documented as of this encounter Miscellaneous Notes Telephone Encounter - Melissa Pickett - 09/11/2009 11:15 AM CDT Last office visit: Reason for visit: adjustment disorder with depression Date last filled: see below NOT A ISHMAEL Pickett RN Telephone Encounter - Kristine Bermudez - 09/09/2009 9:05 AM CDT Last filled 08/07/09 Qty 30 Kristine [facility] documented in this encounter Plan of Treatment Not on filedocumented as of this encounter Visit Diagnoses Diagnosis Adjustment disorder with anxiety - Prima ry documented in this encounter Care Teams Burlapper Relationship Specialty Start Date End Date Melvin Palacios MD PCP - General 06/22/99 09/20/10 [address] [phone] documented as of this encounter
--- OUTSIDE RECORDS SUMMARY | 2022-04-02 12:45 | XMS_ITS | Encounter Summary ---
:1975 Author Organization [place] Address [address] [place] [address] Care Team Providers Name Role Phone Melvin Palacios MD Primary Care Provider Encounter Details Date Type Department Care Team Description 10/19/2009 Orders Only [facility] DEP RESSIVE DISORDER NEC; [facility] Adjustment Disorder with Dep ressed Mood [facility], [address] [place] [address] Social History Tobacco Use [...] Associated Comments Diagnosis HCL 25 HYDROXYVITAMIN Routine 10/19/2009 11:04 Adjustment Re sults for this D2 & D3 AM CDT Disorder with procedure are in Depressed Mood the results section. HCL PROGESTERONE Routine 10/19/2009 11:04 DEPRESSIVE Results for this AM CDT DISORDER NEC procedure are in Adjustment the results Disorder with section. Depressed Mood HCL ESTROGENS TOTAL Routine 10/19/2009 11:04 Adjustment Resu lts for this AM CDT Disorder with procedure are in Depressed Mood the results section. HCL VITAMIN B12 Routine 10/19/2009 11:04 DEPRESSIVE Results for this AM CDT DISORDER NEC procedure are i n the results section. documented in this encounter Results PROGESTERONE (10/19/2009 11:04 AM CDT) P athologist Signature Progesterone 0.8 ng/mL [facility] Comment: Progesterone Reference Range Female Non ? Follicular ?0.15-1.4 ? Luteal ?3.4-25 .6 ? Postmenopausal ??<0.15-0.73 ? 1st Trimester ?? 11.2-90.0 ? 2nd Trimester ?? 25.6-89.4 ? 3rd Trimester ?? 48.4-422.5 Specimen Anatomical Collection Method Collection Time Receive d Time (Source) Location / / Volume Laterality 10/19/2009 11:04 10/19/2009 AM CDT 11:06 AM CDT Aleksandra Jimenez PA-C LABORATORY Performing Organization Address City/[facility]/ZIP Code Phon e Number [facility] [address] LABS VITAMIN B12, SERUM (10/19/2009 11:04 AM CDT) athologist Signature Vitamin B12 285 >210 pg/mL [facility] Comment: Interp: [phone] = Normal Specimen Anatomical Collection Method Collection Time Receive d Time (Source) Location / / Volume Laterality 10/19/2009 11:04 10/19/2009 AM CDT 11:06 AM CDT Aleksandra Jimenez PA-C LABORATORY Performing Organization Address City/State/ZIP Code Phon e Number [facility] [address] LABS (ABNORMAL) VITAMIN D DEFICIENCY SCREENING (10/19/2009 11:04 AM CDT) Component Value Ref Test Analysis Performed At Patholo gist Range Method Time Signature 25 OH Vit D2 <5 ug/L [facility] 25 OH Vit D3 24 ug/L [facility] 25 OH Vit D <29 30 - 75 [facility] total Season, race, dietary intake, and treatm ent affect the concentration of ug/L [facility]. Values may decrease during odalis er months and increase [facility] during summer months. Values less than 30 ug/L may indicate Vitamin D deficiency. (L) Specimen Anatomical Collection Method Collection Time Receive d Time (Source) Location / / Volume Laterality 10/19/2009 11:04 10/19/2009 AM CDT 11:06 AM CDT Aleksandra Jimenez PA-C LABORATORY Performing Organization Address City/[facility]/ZIP Code Phon e Number [facility] [address] [place] [address] [facility] ESTROGENS, TOTAL, SERUM (10/19/2009 11:04 AM CDT) [facility] gist Method Time Signature Estrogen (Note) [facility] Total Test ?Result ??Units JAL Estrogen, Total, Serum ?254 ? pg/mL [facility] Reference Range Ranges For Total Estrogen: ??Early Follicular Phase: ?? 70-400 pg/mL ??Late Follicular Phase: ?? 100-900 pg/ml ??Luteal Phase: ? 70-700 pg/mL ??Postmenopausal: ? < or = 130 pg/mL The total estrogen assay is not recommended for use in pre-p ubertal children. Asayed at: [place] [address] Specimen Anatomical Collection Method Collection Time Receive d Time (Source) Location / / Volume Laterality 10/19/2009 11:04 10/19/2009 AM CDT 11:06 AM CDT Aleksandra Jimenez PA-C LABORATORY Performing Organization Address City/[facility] Code Phon e Number [facility] [address] [place] [address] [facility] documented in this encounter Visit Diagnoses Diagnosis DEPRESSIVE DISORDER NEC Depressive disorder, not elsewhere class ified Adjustment disorder with depressed mood documented in this encounter Care Teams Semiautomatic Stitcher Operator Relationship Specialty Start Date End Date Melvin Palacios MD PCP - General 06/22/99 09/20/10 [address] [place] [id number] documented as of this encounter
--- OUTSIDE RECORDS SUMMARY | 2022-04-02 12:45 | XMS_ITS | Encounter Summary ---
:1975 Author Organization [place] Address [address] [place] [address] Care Team Providers Name Role Phone Melvin Palacios MD Primary Care Provider Reason for Visit Reason Onset Date Comments Refill Request 06/05/2010 ZOLPIDEM 10MG Encounter Details Date Type Department Care Team Description 06/05/2010 Refill [facility] Lissette Hobbs, Refill Request Clinic Carmen Brewer MD (ZOLPIDEM 10MG) [address] [place], [place] [address] [facility] [phone] [place] [address] [place] [address] (Wo rk) Social History Tobacco Use Types Packs/Day Years Used Date Smoking Tobacco: Every Day Comments: 1-2 every other day Alcohol Use Standard Drinks/Week Comments Yes 0 (1 standard drink = 0.6 oz pure alcoho l) 1 qo week Sex Assigned at Date Recorded Not on file documented as of this encounter Miscellaneous Notes Telephone Encounter - Petrona Bruce - 06/06/2010 9:28 AM CST Walked over to [facility] Bruce ER REPAIRMAN Telephone Encounter - Stacey Torres - 06/05/2010 2:07 PM CST Last OV: 08/16/09 with CL Reason for visit: adjustment disorder Date last filled: see below Unable to fill PSO Stacey Torres RN ER REPAIRMAN Telephone Encounter - Kristine Bermudez - 06/05/2010 1:47 PM CST Last filled 10/22/09 Qty 30 Kristine [facility] RX ER REPAIRMAN documented in this encounter Plan of Treatment Not on filedocumented as of this encounter Visit Diagnoses Diagnosis Adjustment disorder with anxiety documented in this encounter Care Teams Vacuum Furnace Operator Relationship Specialty Start Date End Date Melvin Palacios MD PCP - General 06/22/99 09/20/10 [address] [id number] documented as of this encounter
--- OUTSIDE RECORDS SUMMARY | 2022-04-02 12:45 | XMS_ITS | Encounter Summary ---
:1975 Author Organization [place] Address [address] [place] [address]. [place] [address] Care Team Providers Name Role Phone Melvin Palacios MD Primary Care Provider Encounter Details Date Type Department Care Team Description 07/04/2010 Historic Notes INTERFACED REPORT James Bautista MD [address] [place] [address] (Wo rk) Social History Tobacco Use Types Packs/Day Years Used Date Smoking Tobacco: Every Day Comments: 1-2 every other day Alcohol Use Standard Drinks/Week Comments Yes 0 (1 standard drink = 0.6 oz pure alcoho l) 1 qo week Sex Assigned at Date Recorded Not on file documented as of this encounter Progress Notes Allen Bautista - 08/23/2010 10:33 PM CDT Problem List MENTAL HEALTH: ; Active Admitting; MENTAL HEALTH OVERDOSE: ; Inactive Admitting; OVERDOSE Interval History - Interval History: adhere to medication has still been holding unto the ; ( patient to do homework in and around upbringing and his family of origine dynamics increas of the headache even in the morning has been able to attain good sleep still quite labile depression has noticed increase to the intensity and intrusiveness for now move with parents ;and then start to cancel lease ;and also start with contract once per week ;start membership with parents and also the same group including 'Divorce [employer]re' Review of Systems - Constitutional: Negative - Skin: Negative - Musculoskeletal: Negative - Eyes: Negative - ENT: Negative - Endocrine: Negative - Respiratory: Negative - Cardiovascular: Negative - Heme: Negative - Lymph: Negative - GI: Negative - : Negative - Neuro: Negative - Psych: Negative - Psych Comments: adhere to medications Mental Status Exam - Appearance: alert - [...] of Knowledge: intact - Formal Mental Status for present time has shown self in a needy way ; Exam Remarkable for: Vital Signs/Labs/Imaging/Culture Results - Vital Signs: Vital Signs reviewed past 24 hours. VS 1. Vital Signs Adult Med Surg 08:00 - Temperature degrees 36.1 C - Temperature degrees 97 F - Resp, Pulse Ox Resp 16 Rate - BP Sitting Systolic 108 mmHg - BP Sitting Diastolic 63 mmHg - BP Sitting HR bpm 81 - BP Standing Systolic 93 mmHg - BP Standing 70 Diastolic mmHg - BP Standing HR bpm 110 Risk Assessment - Discussion/Plan of at least for now has not been turing to Care: alcohol or drugs ;that the relationship had stagnated in an area of 'sexual appeal' Signatures ALLEN BAUTISTA)[Signed 13:51] Authored: Problem List, Interval History, Review of Systems, Mental Status Exam, Vital Signs/Labs/Imaging/Culture Results, VS, Risk Assessment documented in this encounter Plan of Treatment Not on filedocumented as of this encounter Visit Diagnoses Not on filedocumented in this encounter Care Teams Chain Mortiser Operator Relationship Specialty Start Date End Date Melvin Palacios MD PCP - General 06/22/99 09/20/10 [address] [id number] documented as of this encounter
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
--- OUTSIDE RECORDS SUMMARY | 2022-04-02 12:45 | XMS_ITS | Encounter Summary ---
:1975 Author Organization [place] Address [address] [place] [address] Care Team Providers Name Role Phone Melvin Palacios MD Primary Care Provider Reason for Visit Reason Onset Date Comments Refill Request 07/29/2009 Encounter Details Date Type Department Care Team Description 07/29/2009 MyC Refill [facility] Zena Palacios MD Refill Request [address] [phone] (W ork) [address] [phone] Social History Tobacco Use Types Packs/Day Years Used Date Smoking Tobacco: Every Day Comments: 1-2 every other day Alcohol Use Standard Drinks/Week Comments Yes 0 (1 standard drink = 0.6 oz pure alcoho l) social Sex Assigned at Date Recorded Not on file documented as of this encounter Miscellaneous Notes Telephone Encounter - Melissa Pickett - 07/31/2009 11:33 AM CST Last office visit: Reason for visit: adjustment disorder w/anxiety Date last filled: [id number] KLONOPIN IS NOT A PSO MED FILLED OMEPRAZOLE PER PSO Laina Pickett RN FITTER APPRENTICE Telephone Encounter - Melissa Pickett - 07/31/2009 11:31 AM GAS FITTER APPRENTICE Message from Appointedd: Dariana Osman would like a refill of the following medications: OMEPRAZOLE 40 MG OR CPDR [Melvin Palacios MD] KLONOPIN 1 MG OR TABS [Melvin Palacios MD] Preferred pharmacy: [facility] Comment: Dr Palacios - I have noticed a little more use than PRN for my Klonopin and Omeprazole. It seems to be the week when the boys are with their father.Dariana FITTER APPRENTICE documented in this encounter Plan of Treatment Not on filedocumented as of this encounter Visit Diagnoses Diagnosis Gastropareses Gastroparesis GERD (gastroesophageal reflux disease) Esophageal reflux Nausea Nausea alone Adjustment disorder with anxiety documented in this encounter Care Teams Field Sales Associate Relationship Specialty Start Date End Date Melvin Palacios MD PCP - General 06/22/99 09/20/10 [address] [id number] documented as of this encounter
--- OUTSIDE RECORDS SUMMARY | 2022-04-02 12:45 | XMS_ITS | Encounter Summary ---
:1975 Author Organization [facility] Address [address] [place] [address] Care Team Providers Name Role Phone Melvin Palacios MD Primary Care Provider Reason for Visit Reason Onset Date Comments Medication Request 10/23/2009 Vitamin D Encounter Details Date Type Department Care Team Description 10/23/2009 Telephone [facility] Melvin Palacios MD Medication Request Clinic [address] (Vitamin D) [address] [place] [address] [phone] Social History Tobacco Use Types Packs/Day Years Used Date Smoking Tobacco: Every Day Comments: 1-2 every other day Alcohol Use Standard Drinks/Week Comments Yes 0 (1 standard drink = 0.6 oz pure alcoho l) 1 qo week Sex Assigned at Date Recorded Not on file documented as of this encounter Miscellaneous Notes Telephone Encounter - Mayela Reese - 10/23/2009 4:23 PM CDT Message copied by MAYELA REESE on FriOctober 23, 2009 4:23 PM ------ Message from: DARIANA VALDEZ Created: FriOctober 23, 2009 1:35 PM Regarding: RX for Vit D [place] I am open to the RX for the Vitamin D. I would like to try it for a month or two and then do a follow up with you. How does that sound? [facility] Dariana documented in this encounter Plan of Treatment Not on filedocumented as of this encounter Visit Diagnoses Diagnosis Vitamin D deficiency - Primary Unspecified vitamin D deficiency documented in this encounter Care Teams Agricultural Equipment Design Engineer Relationship Specialty Start Date End Date Melvin Palacios MD PCP - General 06/22/99 09/20/10 [address] [phone] documented as of this encounter
--- OUTSIDE RECORDS SUMMARY | 2022-04-02 12:45 | XMS_ITS | Encounter Summary ---
:1975 Author Organization [place] Address [address] [place] [address] Care Team Providers Name Role Phone Melvin Palacios MD Primary Care Provider Reason for Visit Reason Onset Date Comments Refill Request 02/26/2010 VIT D Encounter Details Date Type Department Care Team Description 02/26/2010 Refill [facility] uGrmeet Jimenez th, Refill Request (VIT D) [facility] [id number] [place] [address] [place] [address] [place], [place] [phone] [phone] (Wo rk) Social History Tobacco Use Types Packs/Day Years Used Date Smoking Tobacco: Every Day Comments: 1-2 every other day Alcohol Use Standard Drinks/Week Comments Yes 0 (1 standard drink = 0.6 oz pure alcoho l) 1 qo week Sex Assigned at Date Recorded Not on file documented as of this encounter Miscellaneous Notes Telephone Encounter - Desire Bishop - 02/27/2010 11:37 AM CDT Date of last OV at our clinic: 09/20/09 Reason for visit: abd pain, with CB Date last filled: see below Labs pertaining to med: none, approved. Desire Bishop RN Telephone Encounter - Deidre Alas - 02/26/2010 11:27 AM CDT LAST FILL DATE: 01/25/10 QTY: 4 Camilo Hammonds [facility] documented in this encounter Plan of Treatment Not on filedocumented as of this encounter Visit Diagnoses Diagnosis Vitamin D deficiency - Primary Unspecified vitamin D deficiency documented in this encounter Care Teams Spool Hauler Relationship Specialty Start Date End Date Melvin Palacios MD PCP - General 06/22/99 09/20/10 [address] [id number] documented as of this encounter
--- OUTSIDE RECORDS SUMMARY | 2022-04-02 12:45 | XMS_ITS | Encounter Summary ---
:1975 Author Organization [place] Address [address] [place] [address] Care Team Providers Name Role Phone Melvin Palacios MD Primary Care Provider Reason for Visit Reason Onset Date Comments Refill Request 08/04/2009 ZOLPIDEM Encounter Details Date Type Department Care Team Description 08/04/2009 Refill [facility] Melvin Palacios MD Refill Request Clinic [place] [address] (ZOLPIDEM) [address] [place] [address] [phone] Social History Tobacco Use Types Packs/Day Years Used Date Smoking Tobacco: Every Day Comments: 1-2 every other day Alcohol Use Standard Drinks/Week Comments Yes 0 (1 standard drink = 0.6 oz pure alcoho l) social Sex Assigned at Date Recorded Not on file documented as of this encounter Miscellaneous Notes Telephone Encounter - Stacey Torres - 08/07/2009 10:04 AM CST Walked to pharmacy. Stacey Torres RN H GATHERER Telephone Encounter - Desire Bishop - 08/04/2009 12:18 PM CST Date of last OV: 07/07/09 Reason for visit: adjustment disorder Date last filled: per epic 07/07/09 #30 Labs pertaining to med: none, Unable to approve per standing orders, routed to provider. Desire Bishop RN H GATHERER Telephone Encounter - Ban Monge - 08/04/2009 9:28 AM CST LAST FILL DATE: 07/07/09 LAST QTY: 30 TIERA HERNANDEZ [facility] H GATHERER documented in this encounter Plan of Treatment Not on filedocumented as of this encounter Visit Diagnoses Diagnosis Adjustment disorder with anxiety documented in this encounter Care Teams Basketball Referee Relationship Specialty Start Date End Date Melvin Palacios MD PCP - General 06/22/99 09/20/10 [address] [id number] documented as of this encounter
--- OUTSIDE RECORDS SUMMARY | 2022-04-02 12:45 | XMS_ITS | Encounter Summary ---
:1975 Author Organization [facility] Address [address] [place] [address]. [place] [address] Care Team Providers Name Role Phone Melvin Palacios MD Primary Care Provider Encounter Details Date Type Department Care Team Description 07/02/2010 Consultation [facility] Brian Shukla MD [address] MB Results [address] [place] [address] (Wo rk) Social History Tobacco Use Types Packs/Day Years Used Date Smoking Tobacco: Every Day Comments: 1-2 every other day Alcohol Use Standard Drinks/Week Comments Yes 0 (1 standard drink = 0.6 oz pure alcoho l) 1 qo week Sex Assigned at Date Recorded Not on file documented as of this encounter Progress Notes Otoniel Shukla MD - 08/12/2010 4:33 PM STOREPERSON FINAL REQUESTING PHYSICIAN: Allen Rose MD. HISTORY OF PRESENT ILLNESS: Dariana Valdez is a 34-year-old female admitted to inpatient psychiatrythrough the emergency department where she presented subsequent to an alleged polydrug overdose in the setting of depression with a desire to numb her feelings. We were asked by admitting psychiatrist, Dr. Allen Rose, to see patient for a general medical evaluation. Details regarding circumstances leading up to present hospitalization as per Psychiatry. First mental health hospitalization. Outpatient medical management for depression since undergoing a separationand divorce in 2008. Increase in situational stress. Financial issues. Working 2 jobs. Mother of 2 children, ages 8 and 6. At approximately 2:30 p.m. on 07/01, the patient ingested 5-6 tablets of 2 mg Dilaudid and 5 tabs of 0.5 mg of clonazepam. Subsequent dizziness/lightheadedness. Prompted a call to911. Presented to the emergency department where patient was hemodynamically stable with blood pressure 120/82, heart rate 70s, respirations normal, temperature normal. O2 sat 100% on room air. Review of ER record indicates electrocardiogram showed a normal sinus rhythm. No evidence of prolonged QT orQRS. Pertinent laboratory data includes acetaminophen level less than 10. Ethanol level less than 0.01. Urine tox screen positive for opiates. Clinically, the patient felt to be stable. Admission to inpatient Psychiatry. Denies other drug ingestion. No lingering major ill effects. No subsequent issue with nausea or vomiting. PAST MEDICAL HISTORY: 1. Depression (as above). Details per Psychiatry. 2. History of prior urinary tract infection. 3. Renal calculus disease with cystoscopy, laser lithotripsy with stent placement for removal of left ureteral stone in 03/2008. No subsequent sequela. PAST SURGICAL HISTORY: 1. Two vaginal deliveries. 2. Renal calculus surgery (as above). Without known heart disease, diabetes, asthma, hypertension, intrinsic renal disease, peptic ulcer disease, hepatitis, gallbladder disease, thyroid disease, seizure, tuberculosis, or anemia. ALLERGIES: Codeine sensitivity (passes out), also, IV contrast. MEDICATIONS: 1. Pristiq 50 mg q.a.m. 2. Lexapro 20 mg each day at bedtime. 3. Kalyn control pills. 4. Routine p.r.n. meds. FAMILY HISTORY: Father with undiagnosed depression. Scleroderma, Sjogren's syndrome and neuropathy. HABITS: Former smoker. One year abstention. Resumption on 07/01. Social alcohol intake. Last use on06/30, usually consisting of 1-2 drinks. No other drug use. SOCIAL HISTORY: . Two children. Sexually active. No concern regarding sexually transmitted disease. REVIEW OF SYSTEMS: Tends to feel cold. No fever or sweats. Frontal/bitemporal headaches. Use of p.r.n. Excedrin up to 2 tablets per day. No dizziness or visual change. Wears glasses. Denies chest discomfort, dyspnea, cough. Has had palpitations previously correlating with anxiety. Denies nausea, vomiting, dyspepsia or abdominal pain, no diarrhea or constipation. No signs of GI blood loss. No voidingcomplaints. Last menses control pill in 02/2010. No rash, no focal neurologic complaint. OBJECTIVE: GENERAL: Generally healthy-appearing adult female in no distress. Alert and oriented. Pleasant demeanor. VITAL SIGNS: Blood pressure 122/71 sitting, 141/85 standing, heart rate 60s-80s and regular, respirations normal, temperature normal. HEENT: Extraocular movements are full. There is no nystagmus. Pupils equal and reacting symmetrically. Sclerae nonicteric. Fundi deferred. Oropharynx is clear. Dentition adequate repair. Mucosal membranes are moist. Carotid upstroke brisk. No thyromegaly or lymphadenopathy. SKIN: No rash (exposed areas). CHEST: Clear lung holliday. CARDIAC: Regular without audible gallop or murmur. No click, no jugular venous distention. BREASTS:Exam deferred. ABDOMEN: Benign, without tenderness, guarding, organomegaly or mass. Bowel sounds normal. EXTREMITIES: Distal lower extremities are well perfused, no cyanosis or clubbing, no edema. MUSCULOSKELETAL: No synovitis. PELVIC/RECTAL: Deferred. NEUROLOGIC: Nonfocal. No tremor or rigidity. LABORATORY DATA: In addition to the above includes normal basic metabolic profile with BUN of 12, creatinine 0.9, glucose 90. Normal liver profile. Normal CBC with hemoglobin of 12.6. TSH of 1.64. Negative urine test. ASSESSMENT: A 34-year-old female admitted with the followin. Depression (as above). Rule out major depressive disorder, recurrent. Deferred to Psychiatry. 2.Polydrug ingestion (Dilaudid and clonazepam) without serious/lingering clinical sequela. 3. History of renal calculus disease with left-sided stone extraction 03/2008 (as above). No recurrence. 4. History of urinary tract infection (no symptoms presently). 5. Tension/muscle contraction headaches. PLAN: 1. Psychiatric intervention as per Dr. Rose. 2. Excedrin p.r.n. headaches. 3. Copy of labs to patient at discharge for primary MD followup. 4. Clinical observation. Thank you for the consultation. Will follow along as indicated. Electronically signed on 08/12/2010 16:33 by OTONIEL SHUKLA MD MT: [place] Name: DARIANA VALDEZ MRN: [id number] Account: [id number] : 1975 Consult Date: 07/02/2010 Document: [id number] cc: Allen Rose MD EPERSON documented in this encounter Plan of Treatment Not on filedocumented as of this encounter Visit Diagnoses Not on filedocumented in this encounter Care Teams Medical Superintendent Relationship Specialty Start Date End Date Melvin Palacios MD PCP - General 06/22/99 09/20/10 [address] [id number] documented as of this encounter
--- OUTSIDE RECORDS SUMMARY | 2022-04-02 12:45 | XMS_ITS | Encounter Summary ---
:1975 Author Organization [facility] Address [address] [place] [address]. [place] [address] Care Team Providers Name Role Phone Melvin Palacios MD Primary Care Provider Encounter Details Date Type Department Care Team Description 07/01/2010 [facility] Ruffin Results [address] [place] [address] (Wo rk) Social History Tobacco Use Types Packs/Day Years Used Date Smoking Tobacco: Every Day Comments: 1-2 every other day Alcohol Use Standard Drinks/Week Comments Yes 0 (1 standard drink = 0.6 oz pure alcoho l) 1 qo week Sex Assigned at Date Recorded Not on file documented as of this encounter Progress Notes Ángela Rodriguez - 07/26/2010 11:56 PM ROOM SERVICE WAITER/WAITRESS FINAL ADDENDUM TO T-NOTE CHIEF COMPLAINT: Depression and drug ingestion. HISTORY OF PRESENT ILLNESS: Dariana Valdez is a 34-year-old female with history of anxiety and depression, presenting after intentional drug ingestion. The patient at approximately 2:30 p.m. today, the day of presentation took 5 to 6 tabs of 2 mg strength Dilaudid and 5 tabs of 0.5 mg strength of clonazepam. The patient states that she started to feel lightheaded and dizzy after she took these medications and called 911. She states she took these medications because she wanted to numb her feelings. The patient has been going through a divorce over the past 2 years. She saw her ex- today for the first time in a while, and discussed with him about getting back together. She stated she wanted to get back together because she missed her family and she was relieving memories of their wedding,where they promised to work through problems together. Apparently, her extensor and did not feel similarly and the patient became very despondent and depressed after this conversation, at which time she went home and took these medications. The patient has also been under a significant amount of stress recently with financial stressors. She has been unable to pay her mortgage this month. She is currently working 2 jobs. She is also the mother of 2 children, ages 8 and 6, of whom she shared custody with her . Her family is presentwith her in the room and they endorse the patient who has been very tearful and depressed recently. The patient sleeps for a long period at a time and largely stays in bed when her children are not home or she does not have to work. The patient currently sees a regular mental health therapist, this person is Liliya Hammonds, who is an RN at [facility] and [facility]. Review of systems otherwise negative. PAST MEDICAL HISTORY: 1. The patient has a history of kidney stones, with the last stone in 2008, at which time the patient required surgery for removal. 2. History of anxiety with panic attacks. The patient states that when she is doing well without any stressor she usually has not had panic attacks; however, when she has a significant stressor she has increased amounts of panic attacks. States last time her panic attacks are bad were in the beginning of 05/2010. 3. History of depression. The patient sees by mental health therapist regularly for this. She has no history of inpatient treatment for depression in the past. She has no history of previous suicide attempts or gestures. MEDICATIONS: 1. Pristiq. 2. Klonopin. 3. Lexapro. 4. control pills. Of note, the patient is not currently prescribed hydromorphone, this was left over from a previous surgery, the patient had years ago. ALLERGIES: Codeine. SOCIAL HISTORY: The patient denies current smoking. She states she quit smoking last spring. Statesshe does smoke 1 cigarette today. The patient states that she drinks alcohol currently 1 drink everyother week. She states that she does like drinking and it gives her comfort. She states that in May she was drinking to what she considered an excessive amount, a couple of nights per week. She cut back on this because she was worried it is interactive with her medications. 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 PHYSICAL EXAMINATION: VITAL SIGNS: Reveals initial blood pressure 120/82, pulse 75, respirations 18, temperature 98.7 orally, sat 100% on room air. GENERAL: This is a tearful female in no acute distress. HEENT: Within normal limits. MENTAL STATUS EXAM: The patient has good eye contact. She is tearful. She has regular rate and rhythm of speech. She is cooperative. She has a depressed mood and affect, is tearful. She has linear andlogical thoughts. She denies any current suicidal ideation or psychoses. She appears to have normal insight and judgment into her illness. She is alert and oriented x3. Cranial nerves are grossly intact. Sensory, motor exam is grossly intact. CARDIAC: Regular rate and rhythm, no murmurs, rubs or gallops. PULMONARY: Reveals lungs clear to auscultation bilaterally, no wheezing or rales. ABDOMEN: Soft, nontender, no rebound or guarding. SKIN: Within normal limits. EXTREMITIES: Within normal limits. LABORATORY DATA: The patient has electrocardiogram showing normal sinus rhythm, no evidence of prolonged QT or prolonged QRS, rate of 77. She has a chemistry panel which is normal. Acetaminophen levelis less than 10. Ethanol level is less than 0.01. UPT at this time is negative. CLINICAL IMPRESSION: 1. Major depression. The patient has a history of major depression for which she is currently on anantidepressant for. She also has a history of anxiety and is on Klonopin for that. She does see a mental health therapist on a regular basis. She has significant stressors in her life recently with relationship and financial stressors. She does not appear to be doing well with her first suicide gesture today. At this time, the patient would like to be evaluated as an inpatient, and states that she needs help. She will be admitted for evaluation of depression voluntarily. Of note, she has also shown increasing signs of depression recently at home with fatigue, sleeping more, tearfulness and hopeles sness. 2. Intentional drug overdose, possible suicidal gesture. The patient states that she just wanted to numb her feelings. She did call 911 for herself. At this time, this amount of Dilaudid and Klonopin should have reached its peak effect by the time she presents to the Emergency Department appro ximately 4 hours after her ingestion. She is slightly somnolent but alert and oriented, able to answer all questions. She is in no respiratory distress and has normal O2 sats. Her EKG and acetaminophenlevels are within normal limits. She has no evidence of acidosis on her panel. I did discuss this patient with the [facility] Control [facility] who states that the peak effect of the drug should have occurredby now and that she would be cleared to be admitted to a psychiatric floor as further observation would not be warranted. The patient is admitted to the Psychiatry Service for evaluation of drug overdose and major depression. Electronically signed on 07/26/2010 23:56 by ÁNGELA RODRIGUEZ MD MT: TOSHA Name: DARIANA VALDEZ Account: [id number] : 1975 Visit Date: 07/01/2010 Document: [id number] cc: [facility] SERVICE WAITER/WAITRESS documented in this encounter Plan of Treatment Not on filedocumented as of this encounter Visit Diagnoses Not on filedocumented in this encounter Care Teams Stone Layout Marker Relationship Specialty Start Date End Date Melvin Palacios MD PCP - General 06/22/99 09/20/10 [address] [id number] documented as of this encounter
--- OUTSIDE RECORDS SUMMARY | 2022-04-02 12:46 | XMS_ITS | Encounter Summary ---
:1975 Author Organization [facility] Address [address] [place] [address] Care Team Providers Name Role Phone Melvin Palacios MD Primary Care Provider Encounter Details Date Type Department Care Team Description 07/11/2009 Orders Only [facility] Melvin Palacios MD Routine Physical Clinic [place] [address] [place] [address] Examination (Primary [facility]) [address] [place] [phone] Social History Tobacco Use Types Packs/Day Years Used Date Smoking Tobacco: Every Day Comments: 1-2 every other day Alcohol Use Standard Drinks/Week Comments Yes 0 (1 standard drink = 0.6 oz pure alcoho l) social Sex Assigned at Date Recorded Not on file documented as of this encounter Plan of Treatment Not on filedocumented as of this encounter Visit Diagnoses Diagnosis Routine physical examination - Primary Routine general medical examination at a health care facility documented in this encounter Care Teams Information Technology Specialist Relationship Specialty Start Date End Date Melvin Palacios MD PCP - General 06/22/99 09/20/10 [address] [place] [address] documented as of this encounter
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
--- OUTSIDE RECORDS SUMMARY | 2022-04-02 12:46 | XMS_ITS | Encounter Summary ---
:1975 Author Organization [facility] Address [address] [place] [address] Care Team Providers Name Role Phone Melvin Palacios MD Primary Care Provider Reason for Visit Reason Onset Date Comments Refill Request 06/01/2009 [facility] Encounter Details Date Type Department Care Team Description 06/01/2009 Refill [facility] Melvin Palacios MD Refill Request (Ambien) Clinic [address] [place] [address] [phone] Social History Tobacco Use Types Packs/Day Years Used Date Smoking Tobacco: Every Day Comments: 1-2 every other day Alcohol Use Standard Drinks/Week Comments Yes 0 (1 standard drink = 0.6 oz pure alcoho l) social Sex Assigned at Date Recorded Not on file documented as of this encounter Miscellaneous Notes Telephone Encounter - Cris Bowman - 06/01/2009 11:28 AM CST Already completed. Jeimy Bowman BREAD JOCKEY [employer] TIRE AND TUBES SUPERVISOR documented in this encounter Plan of Treatment Not on filedocumented as of this encounter Visit Diagnoses Diagnosis Adjustment disorder with anxiety documented in this encounter Care Teams Manager Internal Relationship Specialty Start Date End Date Melvin Palacios MD PCP - General 06/22/99 09/20/10 [address] [id number] documented as of this encounter
--- OUTSIDE RECORDS SUMMARY | 2022-04-02 12:46 | XMS_ITS | Encounter Summary ---
:1975 Author Organization [facility] Address [address] [place] [address] Care Team Providers Name Role Phone Melvin Palacios MD Primary Care Provider Reason for Visit Reason Onset Date Comments Refill Request 06/01/2009 ZOLPIDEM 10MG Encounter Details Date Type Department Care Team Description 06/01/2009 Refill [facility] Melvin Palacios MD Refill Request (ZOLPIDEM Clinic [place] [address] 10MG) [address] [place], [place] [address] [phone] Social History Tobacco Use Types Packs/Day Years Used Date Smoking Tobacco: Every Day Comments: 1-2 every other day Alcohol Use Standard Drinks/Week Comments Yes 0 (1 standard drink = 0.6 oz pure alcoho l) social Sex Assigned at Date Recorded Not on file documented as of this encounter Miscellaneous Notes Telephone Encounter - Melissa Pickett - 06/01/2009 9:55 AM CST Last office visit: [id number] Reason for visit: adj. disorder Date last filled: see below NOT A PSO MED ROUTED TO MACHINE COIL ASSEMBLER-SINDHU Pickett RN ING SERVICES ADVISOR Telephone Encounter - Kristine Bermudez - 06/01/2009 9:50 AM CST Last filled 05/02/09 Qty 30 Kristine [facility] RX PLEASE WALK OVER TO THE PHARMACY ING SERVICES ADVISOR documented in this encounter Plan of Treatment Not on filedocumented as of this encounter Visit Diagnoses Diagnosis Adjustment disorder with anxiety - Prima ry documented in this encounter Care Teams Sand Wheeler Relationship Specialty Start Date End Date Melvin Palacios MD PCP - General 06/22/99 09/20/10 [address] [id number] documented as of this encounter
--- OUTSIDE RECORDS SUMMARY | 2022-04-02 12:46 | XMS_ITS | Encounter Summary ---
:1975 Author Organization [facility] Address [address] [place] [address]. [place] [address] Care Team Providers Name Role Phone Melvin Palacios MD Primary Care Provider Reason for Visit Reason Onset Date Comments Refill Request 06/10/2009 CLONAZEPAM Encounter Details Date Type Department Care Team Description 06/10/[facility] Nemesio Mcguire Refill Request Clinic [place] MD Ajit (CLONAZEPAM) [address] [place] [phone] (Wo rk) Social History Tobacco Use Types Packs/Day Years Used Date Smoking Tobacco: Every Day Comments: 1-2 every other day Alcohol Use Standard Drinks/Week Comments Yes 0 (1 standard drink = 0.6 oz pure alcoho l) social Sex Assigned at Date Recorded Not on file documented as of this encounter Miscellaneous Notes Telephone Encounter - Felicia Mcintyre - 06/12/2009 12:18 PM CST RX faxed to [facility] per patient Felicia Mcintyre/GUY K TECHNICIAN Telephone Encounter - Nemesio Mcguire - 06/12/2009 11:40 AM CST Note she's on two benzodiazepines -I asked her to follow up within two weeks with Dr. Palacios to review her meds K TECHNICIAN Telephone Encounter - Ernestine Salinas - 06/12/2009 10:13 AM CST See below Last OV: 05/17/09 Reason for visit: adjustment disorder Date last filled: 05/01/09 Not pso, routed Ernestine Salinas RN K TECHNICIAN Telephone Encounter - Ban Monge - 06/10/2009 11:15 AM CST LAST FILL DATE: 05/02/2009 LAST QTY: 60 TIERA HERNANDEZ [facility] K TECHNICIAN documented in this encounter Plan of Treatment Not on filedocumented as of this encounter Visit Diagnoses Diagnosis Adjustment disorder with anxiety - Prima ry documented in this encounter Care Teams Crystal Mounter Relationship Specialty Start Date End Date Melvin Palacios MD PCP - General 06/22/99 09/20/10 [address] [id number] documented as of this encounter
--- OUTSIDE RECORDS SUMMARY | 2022-04-02 12:46 | XMS_ITS | Encounter Summary ---
:1975 Author Organization [facility] Address [address] [place] [address] Care Team Providers Name Role Phone Melvin Palacios MD Primary Care Provider Reason for Visit Reason Onset Date Comments Refill Request 05/17/2009 ALPRAZOLAM Encounter Details Date Type Department Care Team Description 05/17/2009 Refill [facility] Melvin Palacios MD Refill Request Clinic [place] [address] (ALPRAZOLAM) [address] [place] [phone] [phone] Social History Tobacco Use Types Packs/Day Years Used Date Smoking Tobacco: Every Day Comments: 1-2 every other day Alcohol Use Standard Drinks/Week Comments Yes 0 (1 standard drink = 0.6 oz pure alcoho l) social Sex Assigned at Date Recorded Not on file documented as of this encounter Miscellaneous Notes Telephone Encounter - Melissa Pickett - 05/18/2009 10:11 AM CST Signed rx hand faxed Melissa Pickett RN SURVEYOR MANAGER Telephone Encounter - Ernestine Salinas - 05/17/2009 4:33 PM CST Last OV: 05/17/09 Reason for visit: adjustment disorder Date last filled: 04/20/09 Not pso, routed, need to walk over Ernestine Salinas RN SURVEYOR MANAGER Telephone Encounter - Deidre Alas - 05/17/2009 3:49 PM CST LAST FILL DATE: 04/21/09 QTY: 40 Mechelle Alas, [facility] SURVEYOR MANAGER documented in this encounter Plan of Treatment Not on filedocumented as of this encounter Visit Diagnoses Diagnosis Routine gynecological examination documented in this encounter Care Teams Electroplating Worker Relationship Specialty Start Date End Date Melvin Palacios MD PCP - General 06/22/99 09/20/10 [address] [id number] documented as of this encounter
--- OUTSIDE RECORDS SUMMARY | 2022-04-02 12:46 | XMS_ITS | Encounter Summary ---
:1975 Author Organization [facility] Address [address] [place] [address] Care Team Providers Name Role Phone Melvin Palacios MD Primary Care Provider Reason for Visit Reason Onset Date Comments Refill Request 05/01/2009 SUSAN Encounter Details Date Type Department Care Team Description 05/01/2009 Refill [facility] Melvin Palacios MD Refill Request (AMBIEN) Clinic [address] [place] [phone] Social History Tobacco Use Types Packs/Day Years Used Date Smoking Tobacco: Every Day Comments: 1-2 every other day Alcohol Use Standard Drinks/Week Comments Yes 0 (1 standard drink = 0.6 oz pure alcoho l) social Sex Assigned at Date Recorded Not on file documented as of this encounter Miscellaneous Notes Telephone Encounter - Ernestine Salinas - 05/01/2009 2:14 PM CST Added to previous refill for Esther, encounter closed Ernestine Salinas RN [place] SURVEYOR Telephone Encounter - Deidre Alas - 05/01/2009 2:09 PM CST LAST FILL DATE: 03/22/09 QTY: 30 Camilo Hammonds [facility] [place] SURVEYOR documented in this encounter Plan of Treatment Not on filedocumented as of this encounter Visit Diagnoses Diagnosis Adjustment disorder with anxiety documented in this encounter Care Teams Freight Sorter Relationship Specialty Start Date End Date Melvin Palacios MD PCP - General 06/22/99 09/20/10 [address] [id number] documented as of this encounter
--- OUTSIDE RECORDS SUMMARY | 2022-04-02 12:46 | XMS_ITS | Encounter Summary ---
:1975 Author Organization [facility] Address [address] [place] [address] Care Team Providers Name Role Phone Melvin Palacios MD Primary Care Provider Reason for Visit Reason Onset Date Comments Refill Request 07/03/2009 francis Encounter Details Date Type Department Care Team Description 07/03/2009 MyC Refill [facility] Refill Sejal robertsest (ambien [facility] [place] [facility]) [address] [place] [phone] [phone] Social History Tobacco Use Types Packs/Day Years Used Date Smoking Tobacco: Every Day Comments: 1-2 every other day Alcohol Use Standard Drinks/Week Comments Yes 0 (1 standard drink = 0.6 oz pure alcoho l) social Sex Assigned at Date Recorded Not on file documented as of this encounter Miscellaneous Notes Telephone Encounter - Melvin Palacios - 07/05/2009 9:28 AM CST She should come in DENTIAL PROPERTY MANAGER Telephone Encounter - Pau Ribeiro - 07/04/2009 1:37 PM CST Dariana states she would like these to go to Dr Palacios for review Last ov 06/19/2009 Last filled klonopin #30 on 06/10/09-takes bid Last filled ambien #30 on 06/01/09 Unable to fill this medication. Selected to print out at your station for signature-please handfax to pharmacy number listed on hardcopy. Thanks Pau Ribeiro RN DENTIAL PROPERTY MANAGER Telephone Encounter - Tobi Beltran - 07/03/2009 4:33 PM RESIDENTIAL PROPERTY MANAGER I cant fill this rx. Please check with Dariana to see who is managing her anxiety medications and direct refill there. DENTIAL PROPERTY MANAGER Telephone Encounter - Stacey Torres - 07/03/2009 4:16 PM CST Last OV: 06/19/09 Reason for visit: mult concerns Date last filled: klonopin 06/10/09 Ambien 06/01/09 Unable to fill PSO Stacey Torres RN DENTIAL PROPERTY MANAGER Telephone Encounter - Stacey Torres - 07/03/2009 4:14 PM RESIDENTIAL PROPERTY MANAGER Message from [facility]: Dariana Osman would like a refill of the following medications: KLONOPIN 1 MG OR TABS [Nemesio Mcguire MD] ZOLPIDEM TARTRATE 10 MG OR TABS [Melvin Palacios MD] Preferred pharmacy: [facility] Comment: DENTIAL PROPERTY MANAGER documented in this encounter Plan of Treatment Not on filedocumented as of this encounter Visit Diagnoses Diagnosis Adjustment disorder with anxiety documented in this encounter Care Teams Ui Ux Engineer Relationship Specialty Start Date End Date Melvin Palacios MD PCP - General 06/22/99 09/20/10 [address] [id number] documented as of this encounter
--- OUTSIDE RECORDS SUMMARY | 2022-04-02 12:46 | XMS_ITS | Encounter Summary ---
:1975 Author Organization [place] Address [address] [place] [address] Care Team Providers Name Role Phone Melvin Palacios MD Primary Care Provider Reason for Visit Reason Onset Date Comments Refill Request 07/04/2009 CLONAZEPAM 1MG Refill Request 07/04/2009 AMBIEN Encounter Details Date Type Department Care Team Description 07/04/2009 Refill [facility] Melvin Palacios MD Refill Request Clinic [place] [address] (CLONAZEPAM 1MG); Refill [phone] [facility] Request (AMBIEN[facility] [place] [place] [address] [phone] Social History Tobacco Use Types Packs/Day Years Used Date Smoking Tobacco: Every Day Comments: 1-2 every other day Alcohol Use Standard Drinks/Week Comments Yes 0 (1 standard drink = 0.6 oz pure alcoho l) social Sex Assigned at Date Recorded Not on file documented as of this encounter Miscellaneous Notes Telephone Encounter - Stacey Torres - 07/04/2009 9:48 AM CST Last OV: 06/19/09 Reason for visit: GERD Date last filled: see below Unable to fill PSO Stacey Torres RN UME AND TOILET WATER MAKER Telephone Encounter - Mary Monge - 07/04/2009 9:40 AM CST CLONAZEPAM LAST FILL DATE: 06/12/2009 LAST QTY: 30 [facility] AMBIEN LAST FILL DATE: 06/01/2009 LAST QTY: 30 [facility] UME AND TOILET WATER MAKER documented in this encounter Plan of Treatment Not on filedocumented as of this encounter Visit Diagnoses Diagnosis Adjustment disorder with anxiety - Prima ry documented in this encounter Care Teams Die Set Up Worker Relationship Specialty Start Date End Date Melvin Palacios MD PCP - General 06/22/99 09/20/10 [address] [address] documented as of this encounter
--- OUTSIDE RECORDS SUMMARY | 2022-04-02 12:46 | XMS_ITS | Encounter Summary ---
:1975 Author Organization [facility] Address [address] [place] [address] Care Team Providers Name Role Phone Melvin Palacios MD Primary Care Provider Reason for Visit Reason Onset Date Comments Refill Request 06/17/2009 CITALOPRAM 40MG Encounter Details Date Type Department Care Team Description 06/17/2009 Refill [facility] Melvin Palacios MD Refill Request Clinic [place] [address] [place] [address] (CITALOPRAM 40MG) [id number] [place] [address] [place] [address] [phone] Social History Tobacco Use Types Packs/Day Years Used Date Smoking Tobacco: Every Day Comments: 1-2 every other day Alcohol Use Standard Drinks/Week Comments Yes 0 (1 standard drink = 0.6 oz pure alcoho l) social Sex Assigned at Date Recorded Not on file documented as of this encounter Miscellaneous Notes Telephone Encounter - Stacey Torres - 06/19/2009 8:43 AM CST Last OV: 05/17/09 Reason for visit: adjustment disorder Date last filled: see below Last PHQ-9 score on record= 19 Unable to fill PSO Stacey Torres RN TAILER Telephone Encounter - Kristine Bermudez - 06/17/2009 10:26 AM CST Last filled 05/17/09 Qty 30 Kristine [facility] RX TAILER documented in this encounter Plan of Treatment Not on filedocumented as of this encounter Visit Diagnoses Diagnosis DEPRESSIVE DISORDER NEC Depressive disorder, not elsewhere class ified ANXIETY STATE NOS Anxiety state, unspecified documented in this encounter Care Teams Angledozer Operator Relationship Specialty Start Date End Date Melvin Palacios MD PCP - General 06/22/99 09/20/10 [address] [id number] documented as of this encounter
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
--- OUTSIDE RECORDS SUMMARY | 2022-04-02 12:46 | XMS_ITS | Encounter Summary ---
:1975 Author Organization [facility] Address [address] [place] [address] Care Team Providers Name Role Phone Melvin Palacios MD Primary Care Provider Esmer Roland MD Primary Care Provider [phone] Yony Garcia PA-C Primary Care Provider [phone] Yony Garcia PA-C Unavailable [phone] Erik Rivas Primary Care Provider Yony Garcia PA-C Unavailable [phone] Reason for Visit Reason Onset Date Comments Patient Inquiry 06/27/[address] [facility] Encounter Details Date Type Department Care Team Description 06/27/2009 [facility] Melvin Palacios MD Patient Inquiry Clinic [facility] [address] ([facility] - [address] [place] [address]) [place], [place] [phone] (Wo rk) Social History Tobacco Use Types Packs/Day Years Used Date Smoking Tobacco: Every Day Comments: 1-2 every other day Alcohol Use Standard Drinks/Week Comments Yes 0 (1 standard drink = 0.6 oz pure alcoho l) social Sex Assigned at Date Recorded Not on file documented as of this encounter Miscellaneous Notes Telephone Encounter - Amy Arlene - 06/27/2009 2:20 PM CST Arlene Reyes, Cheese Maker Adalgisa with [facility] [phone] called regarding a release of information Dariana was requesting her records be faxed to her [facility]. Adalgisa states that she has been missing her appointments. Has had some no shows. Cancelled her Fridayappointment 30 mins before appt. Late session 05/16/09. Adalgisa has called her and left messages to return her call but she doesn't call back. They have a strick attendance agreement. FYI - you can close the encounter when finished. TAL GAZER documented in this encounter Plan of Treatment Not on filedocumented as of this encounter Visit Diagnoses Not on filedocumented in this encounter Care Teams Razor Sharpener Relationship Specialty Start Date End Date Melvin Palacios MD PCP - General 06/22/99 09/20/10 [address] [place] [address] Esmer Roland, PCP - General Family Practice 09/21/10 01/29/17 Yony Garcia, PCP - General Physician [facility] - 01/30/17 07/23/18 PA-C Medical Yony Garcia, PCP - Assigned PCP 09/01/16 08/11/18 PA-C [address] [place] [address] Erik Rivas PCP - General Family Practice 07/24/[address] [address] Yony Garcia, Assigned PCP 09/01/16 [place] [address] [address], SONJA [address] documented as of this encounter
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
--- OUTSIDE RECORDS SUMMARY | 2022-04-02 12:46 | XMS_ITS | Encounter Summary ---
:1975 Author Organization [facility] Address [address] [place] [address] Care Team Providers Name Role Phone Melvin Palacios MD Primary Care Provider Encounter Details Date Type Department Care Team Description 04/26/2009 Medical Correspondence [facility] Melvin Palacios , Report of Clinic Carmen BANERJEE [address] [place] [address] [phone] Social History Tobacco Use Types Packs/Day Years [...] on filedocumented in this encounter Care Teams Box Tender Relationship Specialty Start Date End Date Melvin Palacios MD PCP - General 06/22/99 09/20/[address] [place], [place] [address]SONJA Seaman [address] documented as of this encounter
--- OUTSIDE RECORDS SUMMARY | 2022-04-02 12:46 | XMS_ITS | Encounter Summary ---
:1975 Author Organization [place] Address [address] [place] [address] Care Team Providers Name Role Phone Melvin Palacios MD Primary Care Provider Encounter Details Date Type Department Care Team Description 07/11/2009 Orders Only [facility], [address] [place] [address] Social History Tobacco Use [...] Procedure Name Priority Date/Time Associated Comments Diagnosis CL AFF CBC WITH Routine 07/11/2009 9:48 AM Routine Physical Re sults for this PLATELETS MANAGER WINTER Examination procedure are i n the results section. HCL COMPREHENSIVE Routine 07/11/2009 9:48 AM Routine Physical Results for this METABOLIC PANEL MANAGER WINTER Examination procedure ar e in the results section. HCL TSH W/FREE T4 Routine 07/11/2009 9:48 AM Routine Physical Results for this REFLEX MANAGER WINTER Examination procedure are i n the results section. CL AFF A.M.A. LIPID Routine 07/11/2009 9:48 AM Routine Physica l Results for this PANEL MANAGER WINTER Examination procedure are i n the results section. documented in this encounter Results CBC WITH PLATELETS (07/11/2009 9:48 AM MANAGER WINTER) athologist Signature WBC 5.5 4.0 - 11.0 FELDA 10e9/L [facility] RBC Count 4.68 3.8 - 5.2 FELDA 10e12/L [facility] Hemoglobin 14.3 11.7 - [facility] 15.7 g/dL [facility] Hematocrit 42.4 35.0 - [facility] 47.0 % [facility] MCV 91 78 - 100 FELDA fl [facility] MCH 30.6 26.5 - [facility] 33.0 pg [facility] MCHC 33.7 31.5 - [facility] 36.5 g/dL [facility] RDW 12.4 10.0 - [facility] 15.0 % [facility] Platelet Count 275 150 - 450 FELDA 10e9/L [facility] Specimen Anatomical Collection Method Collection Time Receive d Time (Source) Location / / Volume Laterality 07/11/2009 9:48 AM 0 9:51 MANAGER WINTER AM MANAGER WINTER Aleksandra Jimenez PA-C LABORATORY Performing Organization Address City/State/ZIP Code Phon e Number [facility] [address] [place] [address] [facility] TSH W/FREE T4 REFLEX (07/11/2009 9:48 AM MANAGER WINTER) athologist Signature TSH 1.36 0.4 - 5.0 [facility] mU/L [facility] Specimen Anatomical Collection Method Collection Time Receive d Time (Source) Location / / Volume Laterality 07/11/2009 9:48 AM 0 9:51 MANAGER WINTER AM MANAGER WINTER Aleksandra Jimenez PA-C LABORATORY Performing Organization Address City/State/ZIP Code Phon e Number [facility] [address] [place] [address] [facility] A.M.A. COMPREHENSIVE MET.PANEL (07/11/2009 9:48 AM MANAGER WINTER) athologist Signature Sodium 143 133 - 144 [facility] [place] mmol/L [facility] Potassium 4.4 3.4 - 5.3 [facility] [place] mmol/L [facility] Chloride 105 94 - 109 [facility] [place] mmol/L [facility] Carbon Dioxide 26 20 - 32 [facility] [place] mmol/L [facility] Anion Gap 11 6 - 17 [facility] [place] mmol/L [facility] Glucose 85 60 - 99 [place] [place] mg/dL [facility] Urea Nitrogen 9 5 - 24 [facility] mg/dL [facility] Creatinine 0.91 0.52 - [facility] 1.04 mg/dL CLIN[facility] LAB Comment: New IDMS-traceable calibration beginning 10/08/07 GFR Estimate 72 >60 mL/min/1.7m2 FELDA E AGAN [facility] GFR Estimate If Black 87 >60 mL/min/1.7m2 [facility] Calcium 9.5 8.5 - 10.4 mg/dL FELDA EAGA N [facility] Bilirubin Total 0.7 0.2 - 1.3 mg/dL [facility] Albumin 4.7 3.9 - 5.1 g/dL [facility] Comment: Reference range changed on 02/08. Protein Total 7.5 6.8 - 8.8 g/dL [facility]ELDA EA [facility] Comment: As of 07, reference range reflects plasma specimen type. Alkaline Phosphatase 46 40 - 150 U/L [facility] ALT <6 0 - 50 U/L [facility] CLIN IC LAB AST 13 0 - 45 U/L [facility] CLIN IC LAB Specimen Anatomical Collection Method Collection Time Receive d Time (Source) Location / / Volume Laterality 07/11/2009 9:48 AM 0 9:51 MANAGER WINTER AM MANAGER WINTER Aleksandra Jimenez PA-C LABORATORY Performing Organization Address City/State/ZIP Code Phon e Number [facility] [address] [place] [address] [facility] (ABNORMAL) A.M.A. LIPID PANEL (07/11/2009 9:48 AM MANAGER WINTER) athologist Signature Cholesterol 156 0 - 200 [facility] mg/dL CLINIC LAB Comment: LDL Cholesterol is the primary guide to therapy: LDL-cholesterol goal in high risk patients is <100 mg/dL and in very high risk patients is <70 mg/dL. The NCEP recommends further evaluation of: patients with cholesterol <200 mg/dL if additional risk factors are present, cholesterol >240 mg/dL, triglycerides >150 mg/dL, or HDL <40 mg/dL. Triglycerides 117 0 - 150 mg/dL [facility] HDL Cholesterol 42 (L) 50 - 110 mg/dL [facility] LDL Cholesterol Calculated 91 0 - 129 mg/dL [facility] Comment: LDL Cholesterol is the primary guide to therapy: LDL-cholesterol goal in high risk patients is <100 mg/dL and in very high risk patients is <70 mg/dL. VLDL-Cholesterol 23 0 - 30 mg/dL [facility] Cholesterol/HDL Ratio 3.7 0.0 - 5.0 [facility] Specimen Anatomical Collection Method Collection Time Receive d Time (Source) Location / / Volume Laterality 07/11/2009 9:48 AM 0 9:51 MANAGER WINTER AM MANAGER WINTER Aleksandra Jimenez PA-C LABORATORY Performing Organization Address City/State/ZIP Code Phon e Number [facility] [address] [place] [address] [facility] documented in this encounter Visit Diagnoses Diagnosis Routine physical examination Routine general medical examination at a health care facility documented in this encounter Care Teams Scenic Arts Supervisor Relationship Specialty Start Date End Date Melvin Palacios MD PCP - General 06/22/99 09/20/10 [address] [id number] documented as of this encounter
--- OUTSIDE RECORDS SUMMARY | 2022-04-02 12:46 | XMS_ITS | Encounter Summary ---
:1975 Author Organization [facility] Address [address] [place] [address] Care Team Providers Name Role Phone Melvin Palacios MD Primary Care Provider Reason for Visit Reason Comments Forms return to work papers Encounter Details Date Type Department Care Team Description 04/20/2009 Office Visit [facility] Melvin Palacios MD Adjustment Disorder Clinic [place] [address] with Depressed Mood [id number] [facility] (Primary Dx) [place] [place] [facility] [place] [phone] [id number] Social History Tobacco Use Types Packs/Day Years Used Date Smoking Tobacco: Every Day Comments: 1-2 every other day Alcohol Use Standard Drinks/Week Comments Yes 0 (1 standard drink = 0.6 oz pure alcoho l) social Sex Assigned at Date Recorded Not on file documented as of this encounter Last Filed Vital Signs Vital Sign Reading Time Taken Comments Blood Pressure 114/70 04/20/2009 3:16 PM HVAC JOURNEYMAN Pulse 66 04/20/2009 3:16 PM HVAC JOURNEYMAN Temperature - - Respiratory Rate - - Oxygen Saturation - - Inhaled Oxygen Concentration - - Weight 74.4 kg (164 lb) 04/20/2009 3:16 PM HVAC JOURNEYMAN Height - - Body Mass Index 26.47 03/22/2009 3:02 PM CDT documented in this encounter Progress Notes Melvin Palacios - 04/20/2009 3:44 PM CST Pt here for f/u with regard to her adjustment DO with mixed features. She has done well this week and appears, upon questioning of reaction to stressors, coped better with the unexpected. She is sleeping well. EXAM: PSYC: Affect is mildly flat. Voice is stable, speech flows. Attentive. Not crying. Nontangential. Noviolent ideation. No identified delusions or hallucinations. A/P: 1- Adjustment DO with mixed features. She may RTW 04-24-2009 without restriction. I require to see her in 2-3 weeks as she maintains her weekly visits with her therapist. JOURNEYMAN documented in this encounter Nursing Notes 04/20/2009 3:00 PM CST >> [facility] Apr 20, 2009 3:18 PM Patient presents with: Forms - return to work papers Initial BP 114/70 Pulse 66 Wt 164 lb (74.39 kg) Estimated Body [...] Primary documented in this encounter Care Teams Marriage Counselor Minister Relationship Specialty Start Date End Date Melvin Palacios MD PCP - General 06/22/99 09/20/10 [address] [id number] documented as of this encounter
--- OUTSIDE RECORDS SUMMARY | 2022-04-02 12:46 | XMS_ITS | Encounter Summary ---
:1975 Author Organization [place] Address [address] [place] [address] Care Team Providers Name Role Phone Melvin Palacios MD Primary Care Provider Reason for Visit Reason Onset Date Comments Patient/info Update 04/03/2009 with counseling Ctr Encounter Details Date Type Department Care Team Description 04/03/2009 Telephone [facility] Patient/ info Update Clinic [place] [facility] (with counseling Ctr) [address] [place] [id number] Social History Tobacco Use Types Packs/Day Years Used Date Smoking Tobacco: Every Day Comments: 1-2 every other day Alcohol Use Standard Drinks/Week Comments Yes 0 (1 standard drink = 0.6 oz pure alcoho l) social Sex Assigned at Date Recorded Not on file documented as of this encounter Miscellaneous Notes Telephone Encounter - Rashida Bishop - 04/03/2009 12:21 PM CDT Pt has started seeing Polly and she would like to corroborate some information regarding Pt. Times available to call her back are: now through 1:00, and 3:15-3:45. (Otherwise she is with Pt's too) Call at [phone] Routed to CL who saw her for the last 3 OV's. Rashida Bishop RN Telephone Encounter - Rashida Bishop - 04/03/2009 12:17 PM CDT Staff Message copied by RASHIDA BISHOP on FriApr 03, 2009 12:17 PM ------ Message from: ASHLEIGH FORBES Created: FriApr 03, 2009 11:16 AM Regarding: AW-FV Simon First and Last name of caller: Polly Leija Relationship to patient: [employer] -Edinaceason for call: wants to speak with provider Is it in regards to a medication: would not say Med Name: n/a Pharmacy name and location: n/a Provider they see: Tobi Phone number they can be reached at: [phone] Ok to leave a message: please call Polly Guardado documented in this encounter Plan of Treatment Not on filedocumented as of this encounter Visit Diagnoses Not on filedocumented in this encounter Care Teams Egg Tester Relationship Specialty Start Date End Date Melvin Palacios MD PCP - General 06/22/99 09/20/10 [address] [id number] documented as of this encounter
--- OUTSIDE RECORDS SUMMARY | 2022-04-02 12:46 | XMS_ITS | Encounter Summary ---
:1975 Author Organization [facility] Address [address] [place] [address] Care Team Providers Name Role Phone Melvin Palacios MD Primary Care Provider Reason for Visit Reason Onset Date Comments Refill Request 04/20/2009 ALPRAZOLAM Encounter Details Date Type Department Care Team Description 04/20/[address] [facility] Melvin Palacios MD Refill Request Clinic [place] [address] (ALPRAZOLAM) [address] [place], [place] [address] [phone] Social History Tobacco Use Types Packs/Day Years Used Date Smoking Tobacco: Every Day Comments: 1-2 every other day Alcohol Use Standard Drinks/Week Comments Yes 0 (1 standard drink = 0.6 oz pure alcoho l) social Sex Assigned at Date Recorded Not on file documented as of this encounter Miscellaneous Notes Telephone Encounter - Deidre Alas - 04/20/2009 4:20 PM CST LAST FILL DATE: 02/14/09 QTY: 40 Camilo Hammonds [facility] documented in this encounter Plan of Treatment Not on filedocumented as of this encounter Visit Diagnoses Diagnosis Routine gynecological examination documented in this encounter Care Teams Residence Hall Director Relationship Specialty Start Date End Date Melvin Palacios MD PCP - General 06/22/99 09/20/10 [address] [id number] documented as of this encounter
--- OUTSIDE RECORDS SUMMARY | 2022-04-02 12:46 | XMS_ITS | Encounter Summary ---
:1975 Author Organization [facility] Address [address] [place] [address] Care Team Providers Name Role Phone Melvin Palacios MD Primary Care Provider Reason for Visit Reason Comments Medication Request wondering if she can have an increase in med celexa and discuss migraines Encounter Details Date Type Department Care Team Description 05/17/2009 Office Visit [facility] Melvin Palacios MD Adjustment Disorder Clinic [place] [address] with Mixed Anxiety and [address] [facility] Depressed Mood [place], [place] [facility] (Primary Dx) [phone] Social History Tobacco Use Types Packs/Day Years Used Date Smoking Tobacco: Every Day Comments: 1-2 every other day Alcohol Use Standard Drinks/Week Comments Yes 0 (1 standard drink = 0.6 oz pure alcoho l) social Sex Assigned at Date Recorded Not on file documented as of this encounter Last Filed Vital Signs Vital Sign Reading Time Taken Comments Blood Pressure 114/80 05/17/2009 3:08 PM ROTARY SAW OPERATOR Pulse - - Temperature - - Respiratory Rate - - Oxygen Saturation - - Inhaled Oxygen Concentration - - Weight 72.6 kg (160 lb) 05/17/2009 3:08 PM ROTARY SAW OPERATOR Height 167.6 cm (5' 6) 05/17/2009 3:08 PM ROTARY SAW OPERATOR Body Mass Index 25.82 05/17/2009 3:08 PM ROTARY SAW OPERATOR documented in this encounter Progress Notes Melvin Palacios - 05/17/2009 3:44 PM CST SUBJECTIVE: Dariana Osman 33 year old female presents for depression due to marital stress.She has experienced some episodes of emotinal lability, though no violent thoughts. This lability only occurs Histories Udpated through 05-16-2009: Past Medical History Diagnosis Date ??? Calculus [...] as noted PSYCH: Pt affect is mildly flat. Patient's speech is mildly slowed. Patient displays no delusions orhallucinations. Patient denies any suicidal or homicidal ideation. Patient continues to contract to contact us if any thought of violent ideation occurs. ASSESSMENT/PLAN: 1- ADjustmetn disorder with mixed features. Pt told to use the prescribed xanax q6 hr prn for use when lability occurs.. F/U in 10-14 days. She is to contiue with her psychotherapy RY SAW OPERATOR documented in this encounter Nursing Notes 05/17/2009 3:00 PM CST >> BRENDALaw COX FriMay 17, 2009 3:11 PM Patient presents with: Medication Request - wondering if she can have an increase in med celexa and discuss migraines Initial BP 114/80 Ht 5' 6 (1.676 m) Wt 160 lb (72.576 kg) Body mass index is 25.82 kg/(m^2).. BP completed using cuff size regular Health Maintenance Updated with Patient: Yes Tobacco Verified: Yes Payor/Verify RX Benefits/Reconcile Disp Completed if allowed: Yes Family History Updated: Yes Immunizations Up to Date: Yes Mychart Offered: Yes Brenda Cox CMA documented in this encounter Plan of Treatment Not on filedocumented as of this encounter Visit Diagnoses Diagnosis Adjustment disorder with mixed anxiety a nd depressed mood - Primary documented in this encounter Care Teams Souvenir And Novelty Maker Relationship Specialty Start Date End Date Melvin Palacios MD PCP - General 06/22/99 09/20/10 [address] [id number] documented as of this encounter
--- OUTSIDE RECORDS SUMMARY | 2022-04-02 12:46 | XMS_ITS | Encounter Summary ---
:1975 Author Organization [place] Address [address] [place] [address] Care Team Providers Name Role Phone Melvin Palacios MD Primary Care Provider Reason for Visit Reason Onset Date Comments Refill Request 05/01/2009 JUANAONOMALCOLM Encounter Details Date Type Department Care Team Description 05/01/2009 Refill [facility] Melvin Palacios MD Refill Request Clinic [address] ([place]) [address] [place] [address] [place] [phone] Social History Tobacco Use Types Packs/Day Years Used Date Smoking Tobacco: Every Day Comments: 1-2 every other day Alcohol Use Standard Drinks/Week Comments Yes 0 (1 standard drink = 0.6 oz pure alcoho l) social Sex Assigned at Date Recorded Not on file documented as of this encounter Miscellaneous Notes Telephone Encounter - Ernestine Salinas - 05/01/2009 2:13 PM CST Also needs zolpidem refilled Ernestine Salinas RN R INSTALLER Telephone Encounter - Ernestine Salinas - 05/01/2009 2:05 PM CST See below Last OV: 04/20/09 Reason for visit: adjustment disorder Not pso, routed, need to walk rx over, Suzanne gone, routed to Ernestine Salinas RN R INSTALLER Telephone Encounter - Deidre Alas - 05/01/2009 1:58 PM CST LAST FILL DATE: 04/03/09 QTY: 60 Mechelle Alas [facility] R INSTALLER documented in this encounter Plan of Treatment Not on filedocumented as of this encounter Visit Diagnoses Diagnosis Adjustment disorder with anxiety - Prima ry documented in this encounter Care Teams Compensation Agent Relationship Specialty Start Date End Date Melvin Palacios MD PCP - General 06/22/99 09/20/10 [address] [phone] documented as of this encounter
--- OUTSIDE RECORDS SUMMARY | 2022-04-02 12:47 | XMS_ITS | Encounter Summary ---
:1975 Author Organization [place] Address [address] [place] [address] Care Team Providers Name Role Phone Melvin Palacios MD Primary Care Provider Reason for Visit Reason Onset Date Comments Refill Request 02/14/2009 ALPRAZOLAM Encounter Details Date Type Department Care Team Description 02/14/2009 Refill [facility] Melvin Palacios MD Refill Request Clinic [place] [address] (ALPRAZOLAM) [address] [place] [phone] Social History Tobacco Use Types Packs/Day Years Used Date Smoking Tobacco: Former Alcohol Use Standard Drinks/Week Comments Yes 0 (1 standard drink = 0.6 oz pure alcoho l) social Sex Assigned at Date Recorded Not on file documented as of this encounter Miscellaneous Notes Telephone Encounter - Stacey Torres - 02/14/2009 11:10 AM CDT Last OV: 12/29/08 Reason for visit: wrist pain Date last filled: see below Unable to fill PSO Stacey Torres RN Telephone Encounter - Deidre Alas - 02/14/2009 10:40 AM CDT LAST FILL DATE: 12/27/08 QTY: 40 Camilo Hammonds [facility] documented in this encounter Plan of Treatment Not on filedocumented as of this encounter Visit Diagnoses Diagnosis Routine gynecological examination - Prim harpal documented in this encounter Care Teams College Counselor Relationship Specialty Start Date End Date Melvin Palacios MD PCP - General 06/22/99 09/20/10 [address] [id number] documented as of this encounter
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
--- OUTSIDE RECORDS SUMMARY | 2022-04-02 12:47 | XMS_ITS | Encounter Summary ---
:1975 Author Organization [place] Address [address] [facility] [place] [address] Care Team Providers Name Role Phone Melvin Palacios MD Primary Care Provider Reason for Visit Reason Comments Recheck Medication FU on depression meds Encounter Details Date Type Department Care Team Description 12/15/2008 Office Visit [facility] ANXIETY STATE NOS; [facility] [place] ZENON Maddox Insomnia; [address] [facility] [id number] [place] [address] Major Depress Dis, [place] [id number] Social History Tobacco Use Types Packs/Day Years Used Date Smoking Tobacco: Former Alcohol Use Standard Drinks/Week Comments Yes 0 (1 standard drink = 0.6 oz pure alcoho l) social Sex Assigned at Date Recorded Not on file documented as of this encounter Last Filed Vital Signs Vital Sign Reading Time Taken Comments Blood Pressure 120/70 12/15/2008 3:54 PM CDT Pulse - - Temperature - - Respiratory Rate - - Oxygen Saturation - - Inhaled Oxygen Concentration - - Weight 77.6 kg (171 lb) 12/15/2008 3:54 PM CDT Height 168.3 cm (5' 6.25) 12/15/2008 3:54 PM CDT Body Mass Index 27.39 12/15/2008 3:54 PM CDT documented in this encounter Progress Notes Tobi Beltran Varsha - 12/25/2008 2:55 PM CDT Dariana Osman presents to clinic today for evaluation of Depression, anxiety and insomnia. We switched Dariana from Lexapro 30mg to Celexa 40mg approximately 6 months ago. She had been doing well/felt depression and anxiety sxs were under good control until recently. She and are in the initial stages of divorce proceedings. She has developed intermittent full blown panic attacks that seem related to this situational stress. She has been following with Dr. Palacios for mgmt of Xanax. She is needing 1-2 Xanax daily/couple of times per week on average. Dariana is following with counselor and is finding this very helpful. Dariana Denies any thoughts of self harm. Denies any suicidal or homicidal thoughts. Denies any manic behavior or other unusual behaviors since starting Celexa medication. Dariana and her children are living with her parents and she feels she has an excellent support network. She is hoping to have psychiatric care managed here. She strongly prefers following here vs psychiatry. Dariana has NO hx of IP psychiatric tx. NO hx of suicide attempts. No hx of bipolar or any other psychiatric hx. PSYCHIATRIC MED HX: Dariana now feels that she had headaches and some problmes with concentration while taking the Lexapro. These sxs resolved when she switched to Celexa. She has tried Wellbutrin (made mood darker and made pt snappy), Prozac (sexual SE), Effexor (I believe she stated headaches). INSOMNIA: Trazodone works well but sometimes has hangover SE with full dose. She does ok with 1/2 tab (25mg dose). OBJECTIVE: BP 120/70 Ht 5' 6.25 (1.683 m) Wt 171 lb (77.565 kg) Today's (12-15-08) PHQ-9 score on record= 11 (05-19-) PHQ-9 score on record= 13 (--) PHQ-9 score on record= 9 (10/15/07) PHQ-9 score on record= 15 (4-24-08) PHQ-9 score= 18 GENERAL: Very pleasant, comfortable and generally well appearing. PSYCH: Mood is good. Thought content is logical, organized and appropriate throughout the interview today. ASSESSMENT/PLAN: 300.00 ANXIETY STATE NOS Plan: CELEXA 40 MG OR TABS Rx x 6 months given. F/u sooner if any changes/worsening in mood or if any adverse medication SE develop. Dariana is educated, again, today that I do not have prescribing authority to rx Xanax. She will continue to follow with Dr. Palacios if she has ongoing need of this medication. If she has any escalating need of this medication, she is advised that her Celexa or another prevention medication should beadjusted. 311 DEPRESSIVE DISORDER NEC Plan: CELEXA 40 MG OR TABS Rx x 6 months given. F/u sooner if any changes/worsening in mood or if any adverse medication SE develop. Continue counseling. [phone] Insomnia Plan: TRAZODONE HCL 50 MG OR TABS Continue same prn 1/2 dose. Recheck in 6 months or sooner prn. documented in this encounter Nursing Notes 12/15/2008 3:45 PM CDT >> MELISSA RICKS Halley Dec 15, 2008 3:56 PM Patient presents with: Recheck Medication - FU on depression meds Initial BP 120/70 Ht 5' 6.25 (1.683 m) Wt 171 lb (77.565 kg) Body mass index is 27.39 kg/(m^2). BP completed using cuff size large Melissa Ricks/PIPE BENDING MACHINE OPERATOR documented in this encounter Plan of Treatment Not on filedocumented as of this encounter Visit Diagnoses Diagnosis ANXIETY STATE NOS Anxiety state, unspecified Insomnia Insomnia, unspecified Major depressive disorder, single episod e, severe, without mention of psychotic behavior documented in this encounter Care Teams City Treasurer Relationship Specialty Start Date End Date Melvin Palacios MD PCP - General 06/22/99 09/20/10 [address] [id number] documented as of this encounter
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
--- OUTSIDE RECORDS SUMMARY | 2022-04-02 12:47 | XMS_ITS | Encounter Summary ---
:1975 Author Organization [facility] Address [address] [place] [address] Care Team Providers Name Role Phone Melvin Palacios MD Primary Care Provider Reason for Visit Reason Comments Forms FMLA Forms Encounter Details Date Type Department Care Team Description 03/17/2009 Office Visit [facility] Melvin Palacios MD DEPRESSIVE DISORDER NEC; [facility] [place] [address] Adjustment Disorder with Anx iety [address] [place], [place] [address] [address] [phone] Social History Tobacco Use Types Packs/Day Years Used Date Smoking Tobacco: Former Alcohol Use Standard Drinks/Week Comments Yes 0 (1 standard drink = 0.6 oz pure alcoho l) social Sex Assigned at Date Recorded Not on file documented as of this encounter Last Filed Vital Signs Vital Sign Reading Time Taken Comments Blood Pressure 112/68 03/17/2009 9:30 AM CDT Pulse - - Temperature - - Respiratory Rate - - Oxygen Saturation - - Inhaled Oxygen Concentration - - Weight 76.2 kg (168 lb) 03/17/2009 9:30 AM CDT Height 167.6 cm (5' 6) 03/17/2009 9:30 AM CDT Body Mass Index 27.12 03/17/2009 9:30 AM CDT documented in this encounter Progress Notes Melvin Palacios - 03/17/2009 10:38 AM CDT SUBJECTIVE: Dariana Osman 33 year old female presents for hx of depression with adjustment DOoverlaid due to marital difficulty and imminent divorce. She will be moving out to anew home with her two minor children (being the primary caregiver shortly) and this has caused increasing frequency of breakthrough anxiety that has impaired her ability to effectively communicate with clients at work.She has been wisely advised by her Facetor to consider FMLA before any adverse events occur. HIsories Updated through 03-17-2009: Past Medical History Diagnosis Date ??? Calculus [...] signs as noted PSYCH: Pt affect is moderately flat. Patient's speech is soft but normal flow. Patient displays no delusions or hallucinations. Patient denies any suicidal or homicidal ideation. Patient continues to contract to contact us if any thought of violent ideation occurs. Her insight ids reasonable. She remains in counselling as well. ASSESSMENT/PLAN: 1- Pt with hx of depression (stable) experiencing adjustment disorder with anxiety features due to marital difficulties. FMLA supported. Forms comleted. Start date 03-16-2009 and tentative end date 04-22-2009. Pt to f/u q2 weeks and continue counselling. documented in this encounter Nursing Notes 03/17/2009 9:30 AM CDT >> STEVEN MONTOYA Fri Mar 17, 2009 9:35 AM Patient presents with: Forms - FMLA Forms Initial BP 112/68 Ht 5' 6 (1.676 m) Wt 168 lb (76.204 kg) Body mass index is 27.12 kg/(m^2).. BP completed using cuff size: regular HEALTH MAINTENANCE REVIEWED WITH PT Steven Montoya CMA documented in this encounter Plan of Treatment Not on filedocumented as of this encounter Visit Diagnoses Diagnosis DEPRESSIVE DISORDER NEC Depressive disorder, not elsewhere class ified Adjustment disorder with anxiety documented in this encounter Care Teams Electroencephalographic Technologist Relationship Specialty Start Date End Date Melvin Palacios MD PCP - General 06/22/99 09/20/10 [address] [id number] documented as of this encounter
--- OUTSIDE RECORDS SUMMARY | 2022-04-02 12:47 | XMS_ITS | Encounter Summary ---
:1975 Author Organization [facility] Address [address] [place] [address] Care Team Providers Name Role Phone Melvin Palacios MD Primary Care Provider Reason for Visit Reason Comments IUD Encounter Details Date Type Department Care Team Description 11/18/2008 Office Visit [facility] Harris Jung Inserti on of IUD [facility] (Primary Dx) [place] [address] [address] [place] [facility] [address] [facility] [address] [place] [address] [phone] Social History Tobacco Use Types Packs/Day Years Used Date Smoking Tobacco: Former Alcohol Use Standard Drinks/Week Comments Yes 0 (1 standard drink = 0.6 oz pure alcoho l) social Sex Assigned at Date Recorded Not on file documented as of this encounter Last Filed Vital Signs Vital Sign Reading Time Taken Comments Blood Pressure 120/70 11/18/2008 4:11 PM CDT Pulse - - Temperature - - Respiratory Rate - - Oxygen Saturation - - Inhaled Oxygen Concentration - - Weight 79.4 kg (175 lb 1.6 oz) 11/18/2008 4:11 PM CDT Height - - Body Mass Index 28.26 11/07/2008 3:44 PM CDT documented in this encounter Progress Notes Harris Jung - 11/20/2008 6:48 AM CDT Dariana Osman is a 33 year old white female P2002, vas for contraception who presents for an IUD placement (Mirena). She is undergoing a divorce and while she is not seeing anyone else at this time she is interesteed in contraception. She has used OCP's in the past and is interested in the Mirena IUD. Options and risks and benefits disc at length and pt ed info given. The pt has her menses at this time. After obtaining informed consent an exam was done,, the pt prepped in the usual sterile fashion, the anterior lip of the cervix grasped w a tenaculum and a mirena IUD placed without concerns or complications, the string trimmed to approx 1 inch from the os and the speculum removed. The pt was instructed as to the signs of complications as well as how to check her string. She will RTC after her next menses for a recheck or prn concerns. V25.1B Insertion of IUD (primary encounter diagnosis) Comment: sx's of complications disc pt to call Plan: as above documented in this encounter Nursing Notes 11/18/2008 4:00 PM CDT >> MAGDA SANDOVAL FriNov 18, 2008 4:43 PM Mirena IUD insertion, lot# [id number], exp 03/2011 >> MAGDA SANDOVAL FriNov 18, 2008 4:14 PM Patient presents with: IUD insertion Intial BP 120/70 Wt 175 lb 1.6 oz (79.425 kg) LMP 11/17/2008 Estimated Body mass index is 28.26kg/(m^2) as calculated from: Height of 5' 6 (1.676 m) as of 11/07/08 Weight of 175 lb 1.6 oz (79.425 kg) as of this encounter BP completed using cuff size: large. Az Sandoval RN. documented in this encounter Plan of Treatment Not on filedocumented as of this encounter Visit Diagnoses Diagnosis Insertion of IUD - Primary Insertion of intrauterine contraceptive device documented in this encounter Care Teams Medical Advisor Relationship Specialty Start Date End Date Melvin Palacios MD PCP - General 06/22/99 09/20/10 [address] [id number] documented as of this encounter
--- OUTSIDE RECORDS SUMMARY | 2022-04-02 12:47 | XMS_ITS | Encounter Summary ---
:1975 Author Organization [facility] Address [address] [place] [address] Care Team Providers Name Role Phone Melvin Palacios MD Primary Care Provider Reason for Visit Reason Onset Date Comments Refill Request 09/09/2008 Celexa Encounter Details Date Type Department Care Team Description 09/09/2008 Refill [facility] Request (Celexa) [place] [address] [address] [phone] (Wo rk) Social History Tobacco Use Types Packs/Day Years Used Date Smoking Tobacco: Former Alcohol Use Standard Drinks/Week Comments Yes 0 (1 standard drink = 0.6 oz pure alcoho l) social Sex Assigned at Date Recorded Not on file documented as of this encounter Miscellaneous Notes Telephone Encounter - Sridevi Magallon - 09/09/2008 2:28 PM CDT Date of Last OV: 05/19/08 -has been seen since then but for different reason Reason for visit: Depression Provider seen: AW When advised to RTC: na Labs pertaining to med: PHQ9 done 05/19/08 Refilled through November 2007, patient coming into see AW on Friday09/12/08 for follow up. Sridevi Naun RN documented in this encounter Plan of Treatment Not on filedocumented as of this encounter Visit Diagnoses Diagnosis DEPRESSIVE DISORDER NEC Depressive disorder, not elsewhere class ified ANXIETY STATE NOS Anxiety state, unspecified documented in this encounter Care Teams Pc Maintenance Technician Relationship Specialty Start Date End Date Melvin Palacios MD PCP - General 06/22/99 09/20/10 [address] [id number] documented as of this encounter
--- OUTSIDE RECORDS SUMMARY | 2022-04-02 12:47 | XMS_ITS | Encounter Summary ---
:1975 Author Organization [facility] Address [address] [place] [address] Care Team Providers Name Role Phone Melvin Palacios MD Primary Care Provider Encounter Details Date Type Department Care Team Description 08/02/2008 Telephone [facility] Gurmeet Jimenez, [place] [address] [facility], [facility] [[email or web address]] [facility] [address] [place] [address] [place] [address] (Wo rk) Social History Tobacco Use Types Packs/Day Years Used Date Smoking Tobacco: Former Alcohol Use Standard Drinks/Week Comments Yes 0 (1 standard drink = 0.6 oz pure alcoho l) social Sex Assigned at Date Recorded Not on file documented as of this encounter Miscellaneous Notes Telephone Encounter - Aleksandra Jimenez - 08/02/2008 9:00 AM CST Abx sent to pharm for probable sinus infection [employer] Telephone Encounter - Aleksandra Jimenez - 08/02/2008 8:59 AM [employer]OUNT [employer] Staff Message copied by ALEKSANDRA JIMENEZ on FriAug 02, 2008 8:59 AM ------ Message from: DARIANA VALDEZ Created: Fri Aug 02, 2008 7:59 AM Regarding: antibiotic [place] I was wondering if you wouldn't mind sending a antibiotic RX to [facility]. My glands are still swollen and painful. I have been taking sudafed and Robitusin DM. My sinuses still are stuffy. Does the color of the mucus that is brought up from coughing make any difference? Thecolor is green (yuk)! At night the cough has become worse when laying down. Let me know what you think. Dariana [employer] documented in this encounter Plan of Treatment Not on filedocumented as of this encounter Visit Diagnoses Diagnosis Acute maxillary sinusitis - Primary documented in this encounter Care Teams Hydro Mechanic Relationship Specialty Start Date End Date Melvin Palacios MD PCP - General 06/22/99 09/20/10 [address] [id number] documented as of this encounter
--- OUTSIDE RECORDS SUMMARY | 2022-04-02 12:47 | XMS_ITS | Encounter Summary ---
:1975 Author Organization [facility] Address [address] [place] [address] Care Team Providers Name Role Phone Melvin Palacios MD Primary Care Provider Encounter Details Date Type Department Care Team Description 03/13/2009 Orders Only [facility] Dys uria; [facility] Other Nonspecific Finding on Examination of Urine [facility], [address] [place] [address] Social History Tobacco Use [...] Diagnosis Comme nts HCL CULTURE, URINE Routine 03/13/2009 9:15 AM Other Nonspecifi c Results for this CDT Finding on procedure are i n Examination of Urine the res ults section. HCL UA MICRO IF Routine 03/13/2009 9:15 AM Dysuria Result s for this POSITIVE CDT procedure are i n the results section. CL AFF MICRO Routine 03/13/2009 9:15 AM Results f or this EXAM-URINE CDT procedure are i n the results section. documented in this encounter Results (ABNORMAL) MICRO EXAM-URINE (03/13/2009 9:15 AM CDT) Component Value Ref Test Analysis Performed At [facility] Range Method Time Signature WBC Urine 10-25 0 - 2 [place] Clumps of WBC's seen (A) /HPF [facility] RBC Urine 50-100 (A) 0 - 2 [place] /HPF [facility] Squamous EPI Few FEW /LPF [facility] Bacteria Many (A) NEG /HPF [place] Urine [facility] Comment Urine was tested [place] [facility] because <10 ml CLINIC LAB was received. Specimen Anatomical Collection Method Collection Time Receive d Time (Source) Location / / Volume Laterality 03/13/2009 9:15 AM 9 9:17 CDT AM CDT Aleksandra Jimenez PA-C LABORATORY Performing Organization Address City/State/ZIP Code Phon e Number [facility] [place] [address] [facility] URINE CULTURE (03/13/2009 9:15 AM CDT) Component Value Ref Test Analysis Performed At Patholo gist Range Method Time Signature Specimen Midstream Urine [place] Description [facility] Culture Micro >100,000 [place] colonies/mL [facility] coli Report status FINAL [place] 03/14/2009 [facility] Specimen Anatomical Collection Method Collection Time Receive d Time (Source) Location / / Volume Laterality 03/13/2009 9:15 AM 9 9:17 CDT AM CDT Organism Antibiotic Method Susceptibility >100,000 colonies/ml Amoxicillin/Clav Resistant escherichia coli (kirsten) >100,000 colonies/ml Ampicillin >=32 Resist ant escherichia coli (kirsten) >100,000 colonies/ml Cefazolin <=4 Suscept ible escherichia coli (kirsten) >100,000 colonies/ml Cefoxitin <=4 Suscept ible escherichia coli (kirsten) >100,000 colonies/ml Ceftriaxone <=1 Suscept ible escherichia coli (kirsten) >100,000 colonies/ml Ciprofloxacin >=4 Resista nt escherichia coli (kirsten) >100,000 colonies/ml Gentamicin <=1 Suscept ible escherichia coli (kirsten) >100,000 colonies/ml Levofloxacin >=8 Resista nt escherichia coli (kirsten) >100,000 colonies/ml Nitrofurantoin <=16 Suscep tible escherichia coli (kirsten) >100,000 colonies/ml Tobramycin <=1 Suscept ible escherichia coli (kirsten) >100,000 colonies/ml Trimethoprim/Sulfamethoxazole <=1/19 Susceptible escherichia coli (kirsten) >100,000 colonies/ml Ampicillin/Sulbactam >=32 R esistant escherichia coli (kirsten) >100,000 colonies/ml Cefotaxime (meningitis) Tami ceptible escherichia coli (kirsten) >100,000 colonies/ml Piperacillin/Tazo <=4 Susce ptible escherichia coli (kirsten) Aleksandra Jimenez PA-C LABORATORY Performing Organization Address City/State/ZIP Code Phon e Number [facility] [address] [place] [phone] HOSPITAL [facility] (ABNORMAL) UA MICRO IF POSITIVE (03/13/2009 9:15 AM CDT) [facility] Method Time Signature Color Urine Yellow [facility] Appearance Urine Slightly [place] Cloudy [facility] Glucose Urine Negative NEG mg/dL [facility] Bilirubin Urine Negative NEG [facility] Ketones Urine Trace (A) NEG mg/dL [facility] Specific [place] >1.030 1.003 - [place] Urine 1.035 [facility] Blood Urine Large (A) NEG [facility] pH Urine 5.0 5.0 - 7.0 [place] pH [facility] Protein Albumin 30 (A) NEG mg/dL [facility] Urobilinogen 0.2 0.2 - 1.0 [place] Urine EU/dL [facility] Nitrite Urine Negative NEG [facility] Leukocyte Moderate (A) NEG [place] Esterase Urine [facility] Source Midstream [facility] Specimen Anatomical Collection Method Collection Time Receive d Time (Source) Location / / Volume Laterality 03/13/2009 9:15 AM 9:17 CDT AM CDT Authorizing Provider Result Ester Jimenez PA-C LABORATORY Performing Organization Address City/[facility]/ZIP Code Phon e Number [facility] [place], [place] [phone] [facility] documented in this encounter Visit Diagnoses Diagnosis Dysuria Other nonspecific finding on examination of urine documented in this encounter Care Teams Tire Finisher Relationship Specialty Start Date End Date Melvin Palacios MD PCP - General 06/22/99 09/20/10 [address] [id number] documented as of this encounter
--- OUTSIDE RECORDS SUMMARY | 2022-04-02 12:47 | XMS_ITS | Encounter Summary ---
:1975 Author Organization [facility] Address [address] [place] [address] Care Team Providers Name Role Phone Melvin Palacios MD Primary Care Provider Reason for Referral - Closed Specialty Diagnoses / Procedures Referred By Contact Refer red To Contact Diagnoses Adjustment disorder with anxiety Melvin Palacios MD [address] [place] [address] Referral ID Status Reason Start Date Expiration Date Visits Requ ested Visits Authorized [id number] Closed 02/27/2009 06/08/2011 1 1 Reason for Visit Reason Comments Anxiety Encounter Details Date Type Department Care Team Description 02/27/2009 Office Visit [facility] Melvin Palacios MD [facility] [place] [address] Janie with Anxiety (Primary [address] [place] [address] Dx) [place], [place] [address] [phone] Social History Tobacco Use Types Packs/Day Years Used Date Smoking Tobacco: Former Alcohol Use Standard Drinks/Week Comments Yes 0 (1 standard drink = 0.6 oz pure alcoho l) social Sex Assigned at Date Recorded Not on file documented as of this encounter Last Filed Vital Signs Vital Sign Reading Time Taken Comments Blood Pressure 120/74 02/27/2009 11:20 AM CDT Pulse 86 02/27/2009 11:20 AM CDT Temperature - - Respiratory Rate - - Oxygen Saturation - - Inhaled Oxygen Concentration - - Weight 79.8 kg (176 lb) 02/27/2009 11:20 AM CDT Height 168.3 cm (5' 6.25) 02/27/2009 11:20 AM CDT Body Mass Index 28.19 02/27/2009 11:20 AM CDT documented in this encounter Progress Notes Melvin Palacios - 02/27/2009 12:57 PM CDT SUBJECTIVE: Dariana Osman 33 year old female presents for flareup of her anxiety manifesting in someanger issues as the day goes on. She is currently in marital difficulty and her sleep is not regular even with use of trazadone, which only last her 5 hours. She is accompanied by her mother. [employer] Udpated through 02-27-2009: Past Medical History Diagnosis Date ??? Calculus [...] file Current outpatient prescriptions Medication Sig ??? KLONOPIN 1 MG OR TABS 1 TABLET PO BID ??? ZOLPIDEM TARTRATE 10 MG OR TABS 1 TABLET AT BEDTIME ??? ALPRAZOLAM 0.5 MG OR TABS 1 TABLET 3 TIMES DAILY ??? ORDER FOR DME rt thumb spica ??? CELEXA 40 MG OR TABS 1 tab PO day for depression ??? TRAZODONE HCL 50 MG OR TABS ONE TO TWO TABLETS AT BEDTIME NEEDED FOR SLEEP ??? SALICYLIC ACID 40 % EX MISC Please compound 40% salicylic acid in eucerin base--patient to applythin layer to warts once per day. Allergies as of 02/27/2009 - reviewed 12/29/2008 Allergen Reaction Noted ??? Codeine 03/11/2003 ROS: [...] GENERAL APPEARANCE: healthy, alert and no distress NECK: no adenopathy, no asymmetry, masses, or scars and thyroid normal to palpation RESP: lungs clear to auscultation - no rales, rhonchi or wheezes CV: regular rates and rhythm, normal S1 S2, no S3 or S4 and no murmur, click or rub ABDOMEN: soft, nontender, without hepatosplenomegaly or masses and bowel sounds normal NEURO: Normal strength and tone, mentation intact and speech normal PSYCH: flat affect. No violent ideation. GAF>80. No delusions or hallucinations. ASSESSMENT/PLAN: 1- Adjustment DO with mixed mood disorder and anger issue flareup. We will add klonopin BID scheduled to cover. Pt may contiue to use canax for breakthrough. Hld trazadone and add ambien for sleep for now. If not efficacious, may reinstitute half tab of trazadone WITH the ambien (zolpidem) for sleep. Pt accepts referral to Psychotherapy. F/U in 7-10 days. documented in this encounter Nursing Notes 02/27/2009 11:15 AM CDT >> BRENDA COX Mon Feb 27, 2009 11:28 AM Patient presents with: Anxiety Initial BP 120/74 Pulse 86 Ht 5' 6.25 (1.683 m) Wt 176 lb (79.833 kg) Body mass index is 28.19 kg/(m^2).. BP completed using cuff size regular Health Maintenance Updated with Patient: Yes Tobacco Verified: Yes Payor/Verify RX Benefits/Reconcile Disp Completed if allowed: Yes Family History Updated: Yes Immunizations Up to Date: Yes Mychart Offered: Yes Brenda Cox CMA documented in this encounter Plan of Treatment Not on filedocumented as of this encounter Procedures Procedure Name Priority Date/Time Associated Diagnosis Comme nts ZZ CONSULT MENTAL HEALTH Routine 11/01/2009 Adjustment Di sorder with Anxiety documented in this encounter Results CONSULT MENTAL HEALTH (11/01/2009) Narrative This result has an attachment that is no t available. Melvin Palacios MD REFERRAL documented in this encounter Visit Diagnoses Diagnosis Adjustment disorder with anxiety - Prima ry documented in this encounter Care Teams Admissions Counselor Relationship Specialty Start Date End Date Melvin Palacios MD PCP - General 06/22/99 09/20/10 [address] [id number] documented as of this encounter
--- OUTSIDE RECORDS SUMMARY | 2022-04-02 12:47 | XMS_ITS | Encounter Summary ---
:1975 Author Organization [facility] Address [address] [place] [address] Care Team Providers Name Role Phone Melvin Palacios MD Primary Care Provider Encounter Details Date Type Department Care Team Description 03/13/2009 Orders Only [facility] [place], Dysuria (P rimary Dx); [facility] [place] UTI (Urinary Tract Infection) [facility] [address] [place], [place] [phone] Social History Tobacco Use Types Packs/Day Years [...] ied documented in this encounter Care Teams Millwright Helper Relationship Specialty Start Date End Date Melvin Palacios MD PCP - General 06/22/99 09/20/10 [address] [id number] documented as of this encounter
--- OUTSIDE RECORDS SUMMARY | 2022-04-02 12:47 | XMS_ITS | Encounter Summary ---
:1975 Author Organization [place] Address [address] [place] [address]. [place] [address] Care Team Providers Name Role Phone Melvin Palacios MD Primary Care Provider Reason for Visit Reason Onset Date Comments Refill Request 03/14/2009 Encounter Details Date Type Department Care Team Description 03/14/2009 [place] Refadrian [facility] [place] efadrian Request [place] [address] [place] [phone] Social History Tobacco Use Types Packs/Day Years Used Date Smoking Tobacco: Former Alcohol Use Standard Drinks/Week Comments Yes 0 (1 standard drink = 0.6 oz pure alcoho l) social Sex Assigned at Date Recorded Not on file documented as of this encounter Miscellaneous Notes Telephone Encounter - Pau Ribeiro - 03/14/2009 1:34 PM CDT Message from Marcela: Dariana Osman would like a refill of the following medications: CELEXA 40 MG OR TABS [Tobi Barber PA-C] Preferred pharmacy: [facility] Comment: Last ov 02/27/09 for adj disorder Note:referral to Psychotherapy. F/U in 7-10 days. Pt has appt with Dr Palacios 03/22/09 Medication approved per standing orders/Pau Ribeiro RN documented in this encounter Plan of Treatment Not on filedocumented as of this encounter Visit Diagnoses Diagnosis DEPRESSIVE DISORDER NEC Depressive disorder, not elsewhere class ified ANXIETY STATE NOS Anxiety state, unspecified documented in this encounter Care Teams Clinical Physician Assistant Relationship Specialty Start Date End Date Melvin Palacios MD PCP - General 06/22/99 09/20/10 [address] [id number] documented as of this encounter
--- OUTSIDE RECORDS SUMMARY | 2022-04-02 12:47 | XMS_ITS | Encounter Summary ---
:1975 Author Organization [facility] Address [address] [place] [address] Care Team Providers Name Role Phone Melvin Palacios MD Primary Care Provider Reason for Visit Reason Onset Date Comments Refill Request 12/13/2008 [id number] Encounter Details Date Type Department Care Team Description 12/12/2008 MyC Refill [facility] [place] [facility] [place] ([id number]/PSOaab) [address] [place] [phone] [phone] Social History Tobacco Use Types Packs/Day Years Used Date Smoking Tobacco: Former Alcohol Use Standard Drinks/Week Comments Yes 0 (1 standard drink = 0.6 oz pure alcoho l) social Sex Assigned at Date Recorded Not on file documented as of this encounter Miscellaneous Notes Telephone Encounter - Lilibeth Orosco - 12/13/2008 9:39 AM CDT Last PHQ-9 score on record= 13 on 05/19/08. Will route to CL. Last OV: 11/04/08 by CL Reason for visit: Panic Attack Last filled: #30 with 2RF on 10/06/08 Lilibeth Orosco RN Telephone Encounter - Lilibeth Orosco - 12/13/2008 9:37 AM CDT Message from [employer]: Dariana Osman would like a refill of the following medications: CELEXA 40 MG OR TABS [Tobi Barber PA-C] Preferred pharmacy: [facility] Comment: documented in this encounter Plan of Treatment Not on filedocumented as of this encounter Visit Diagnoses Diagnosis DEPRESSIVE DISORDER NEC Depressive disorder, not elsewhere class ified ANXIETY STATE NOS Anxiety state, unspecified documented in this encounter Care Teams Harbor Master Relationship Specialty Start Date End Date Melvin Palacios MD PCP - General 06/22/99 09/20/10 [address] [phone] documented as of this encounter
--- OUTSIDE RECORDS SUMMARY | 2022-04-02 12:47 | XMS_ITS | Encounter Summary ---
:1975 Author Organization [facility] Address [address] [place] [address] Care Team Providers Name Role Phone Melvin Palacios MD Primary Care Provider Encounter Details Date Type Department Care Team Description 09/27/2008 Orders Only [facility] Dys uria (Primary Dx) [facility] [place], [address] [place] [address] Social History Tobacco Use [...] Diagnosis Comme nts HCL CULTURE, URINE Routine 09/27/2008 3:52 PM Dysuria Res ults for this CDT procedure are i n the results section. HCL UA MICRO IF Routine 09/27/2008 3:52 PM Dysuria Result s for this POSITIVE CDT procedure are i n the results section. CL AFF MICRO Routine 09/27/2008 3:52 PM Results f or this EXAM-URINE CDT procedure are i n the results section. documented in this encounter Results (ABNORMAL) MICRO EXAM-URINE (09/27/2008 3:52 PM CDT) [facility] Method Time Signature WBC Urine 5-10 (A) 0 - 2 [place] /[facility] RBC Urine 10-25 (A) 0 - 2 [facility] /HPF [facility] Squamous EPI Few FEW /LPF [facility] Bacteria Moderate (A) NEG /HPF [place] Urine [facility] Specimen Anatomical Collection Method Collection Time Receive d Time (Source) Location / / Volume Laterality 09/27/2008 3:52 PM 9 3:54 CDT PM CDT Aleksandra Jimenez PA-C LABORATORY Performing Organization Address City/State/ZIP Code Phon e Number [facility] [address] [place] [address] [facility] URINE CULTURE (09/27/2008 3:52 PM CDT) Component Value Ref Test Analysis Performed At [facility] gist Range Method Time Signature Specimen Midstream Urine [place] Description [facility] Culture Micro <10,000 colonies/mL Escherichia coli [place] Sent report to [facility] on 10.01.08 [facility] Report status FINAL [place] 09/29/[address] [facility] Specimen Anatomical Collection Method Collection Time Receive d Time (Source) Location / / Volume Laterality 09/27/2008 3:52 PM 9 3:55 CDT PM CDT Organism Antibiotic Method Susceptibility <10,000 colonies/ml Amoxicillin/Clav 16 Intermed iate escherichia coli (kirsten) <10,000 colonies/ml Ampicillin >=32 Resista nt escherichia coli (kirsten) <10,000 colonies/ml Cefazolin <=4 Suscepti ble escherichia coli (kirsten) <10,000 colonies/ml Cefoxitin <=4 Suscepti ble escherichia coli (kirsten) <10,000 colonies/ml Ceftriaxone <=1 Suscepti ble escherichia coli (kirsten) <10,000 colonies/ml Cefuroxime Axetil 4 Suscepti ble escherichia coli (kirsten) <10,000 colonies/ml Cefuroxime Sodium 4 Suscepti ble escherichia coli (kirsten) <10,000 colonies/ml Ciprofloxacin >=4 Resistan t escherichia coli (kirsten) <10,000 colonies/ml Gentamicin <=1 Suscepti ble escherichia coli (kirsten) <10,000 colonies/ml Levofloxacin >=8 Resistan t escherichia coli (kirsten) <10,000 colonies/ml Nitrofurantoin <=16 Suscept ible escherichia coli (kirsten) <10,000 colonies/ml Ticarcillin >=128 Resist ant escherichia coli (kirsten) <10,000 colonies/ml Tobramycin <=1 Suscepti ble escherichia coli (kristen) <10,000 colonies/ml Trimethoprim/Sulfamethoxazole <=1/19 Susceptible escherichia coli (kirsten) <10,000 colonies/ml Ampicillin/Sulbactam Interme diate escherichia coli (kirsten) <10,000 colonies/ml Cefotaxime (meningitis) Susc eptible escherichia coli (kirsten) Aleksandra Jimenez PA-C LABORATORY Performing Organization Address City/State/ZIP Code Phon e Number [facility] [address] [place] [address] HOSPITAL [facility] (ABNORMAL) UA MICRO IF POSITIVE (09/27/2008 3:52 PM CDT) [facility] Method Time Signature Color Urine Yellow [facility] Appearance Urine Clear [facility] Glucose Urine Negative NEG mg/dL [facility] Bilirubin Urine Negative NEG [facility] Ketones Urine Negative NEG mg/dL [facility] Specific [place] 1.025 1.003 - [place] Urine 1.035 [facility] Blood Urine Moderate (A) NEG [facility] pH Urine 7.0 5.0 - 7.0 [place] pH [facility] Protein Albumin Negative NEG mg/dL [facility] Urobilinogen 1.0 0.2 - 1.0 [place] Urine EU/dL [facility] Nitrite Urine Negative NEG [facility] Leukocyte Small (A) NEG [place] Esterase Urine [facility] Source Midstream [facility] Specimen Anatomical Collection Method Collection Time Receive d Time (Source) Location / / Volume Laterality 09/27/2008 3:52 PM 9 3:54 CDT PM CDT Aleksandra Jimenez PA-C LABORATORY Performing Organization Address City/State/ZIP Code Phon e Number [facility] [place] [address] [facility] documented in this encounter Visit Diagnoses Diagnosis Dysuria - Primary documented in this encounter Care Teams Button Attaching Machine Operator Relationship Specialty Start Date End Date Melvin Palacios MD PCP - General 06/22/99 09/20/10 [address] [id number] documented as of this encounter
--- OUTSIDE RECORDS SUMMARY | 2022-04-02 12:47 | XMS_ITS | Encounter Summary ---
:1975 Author Organization [place] Address [address] [place] [address] Care Team Providers Name Role Phone Melvin Palacios MD Primary Care Provider Reason for Referral Referral not Required - Closed Specialty Diagnoses / Procedures Referred By Contact Refer red To Contact Diagnoses Other specified viral warts Kenneth Cannon DPM [facility] [address] [place], [place] [phone] Phone: [phone] Fax: Referral ID Status Reason Start Date Expiration Date Visits Requ ested Visits Authorized [id number] Closed 09/28/2008 06/08/2011 1 1 Reason for Visit Reason Comments Musculoskeletal Problem right heel- possible plantar wart. She states she had the wart treated and now has olamide n and what looks like a callus. Encounter Details Date Type Department Care Team Description 09/20/[address] [facility] Kenneth Cannon Other [facility] Carmen Dietrich DPM Warts (Primary Dx) [address] [facility] [address] [place] [address] E [phone] [address] [place], [place] [address] Social History Tobacco Use Types Packs/Day Years Used Date Smoking Tobacco: Former Alcohol Use Standard Drinks/Week Comments Yes 0 (1 standard drink = 0.6 oz pure alcoho l) social Sex Assigned at Date Recorded Not on file documented as of this encounter Last Filed Vital Signs Vital Sign Reading Time Taken Comments Blood Pressure 108/60 09/20/2008 8:46 AM CDT Pulse 60 09/20/2008 8:46 AM CDT Temperature - - Respiratory Rate - - Oxygen Saturation - - Inhaled Oxygen Concentration - - Weight - - Height - - Body Mass Index - - documented in this encounter Progress Notes Kenneth Cannon F - 09/28/2008 8:46 PM CDT Subjective: Pt is seen today as a new pt referral with the c/c of painful lesions on the plantar aspect right foot. This has been problematic for the past several months Denies drainage, erythema or puncture wounds to this area. Slightly tender to upon long periods of standing/ambulating. Has tried freezing by MDwithout alleviation of lesion/symptoms. Patient is requesting more definitive treatment. PMH, meds, all, PSH, PFH, and soc hx were reviewed REVIEW OF SYSTEMS: CONSTITUTIONAL:NEGATIVE for fever, chills, change in weight INTEGUMENTARY/SKIN: NEGATIVE for worrisome rashes, moles or lesions MUSCULOSKELETAL:See HPI above NEURO: NEGATIVE for weakness, dizziness or paresthesias Exam: Pulses are palpable +2/4 DP & PT b/l. CMS intact to right and left feet +5/5 muscle strength in all quads. Lesions are located plantar rt foot and have cauliflower appearance with obliterated skin lines and pain with lateral compression. Petechia capillary impingement noted within the lesions. Lesions number 3. No sign of infections or open wounds. No drainage noted. ASSESSMENT:/PLAN: Verrucous lesions X 3 right foot. Discussed treatment options and etiology of verrucous lesions at length. Explained to the patient that this may be a series of treatments. Patient gave verbal understanding. No guarantees for outcome give. Will start treatment with Rx for topical anton acid 40% q day. Also disucssed pulsed dye laser treatment Dr. Turk in the future. RTC 3-4 wks. documented in this encounter Nursing Notes 09/20/2008 8:30 AM CDT >> NOEMY Goldman Sep 20, 2008 8:47 AM Patient presents with: Musculoskeletal Problem - right heel- possible plantar wart. She states she had the wart treated and now has pain and what looks like a callus. Initial BP 108/60 Pulse 60 Estimated Body mass index is 28.14 kg/(m^2) as calculated from: Height of 5' 6.5 (1.689 m) as of 01/26/08 Weight of 177 lb (80.287 kg) as of 05/19/08 bp completed using cuff size: regular right Noemy Foster CMA documented in this encounter Plan of Treatment Not on filedocumented as of this encounter Visit Diagnoses Diagnosis Other specified viral warts - Primary documented in this encounter Care Teams Wood Heel Back Liner Relationship Specialty Start Date End Date Melvin Palacios MD PCP - General 06/22/99 09/20/10 [address] [id number] documented as of this encounter
--- OUTSIDE RECORDS SUMMARY | 2022-04-02 12:47 | XMS_ITS | Encounter Summary ---
:1975 Author Organization [place] Address [address] [place] [address] Care Team Providers Name Role Phone Melvin Palacios MD Primary Care Provider Reason for Visit Reason Onset Date Comments Refill Request 12/26/2008 ALPRAZOLPAM Encounter Details Date Type Department Care Team Description 12/26/2008 Refill [facility] Melvin Palacios MD Refill Request Clinic [place] [address] (ALPRAZOLPAM) [address] [place], [place] [address] [phone] Social History Tobacco Use Types Packs/Day Years Used Date Smoking Tobacco: Former Alcohol Use Standard Drinks/Week Comments Yes 0 (1 standard drink = 0.6 oz pure alcoho l) social Sex Assigned at Date Recorded Not on file documented as of this encounter Miscellaneous Notes Telephone Encounter - Deidre Alas - 12/26/2008 2:24 PM CDT LAST FILL DATE: 11/04/08 QTY: 30 [address] Hammonds [facility] documented in this encounter Plan of Treatment Not on filedocumented as of this encounter Visit Diagnoses Diagnosis Routine gynecological examination documented in this encounter Care Teams Technology Officer Relationship Specialty Start Date End Date Melvin Palacios MD PCP - General 06/22/99 09/20/10 [address] [id number] documented as of this encounter
--- OUTSIDE RECORDS SUMMARY | 2022-04-02 12:47 | XMS_ITS | Encounter Summary ---
:1975 Author Organization [place] Address [address] [place] [address] Care Team Providers Name Role Phone Melvin Palacios MD Primary Care Provider Reason for Visit Reason Comments Headache Encounter Details Date Type Department Care Team Description 07/18/2008 Office Visit [facility] Barbara, [facility] [place] (Primary Dx) [facility] [address] [place], [place] [phone] Social History Tobacco Use Types Packs/Day Years Used Date Smoking Tobacco: Former Alcohol Use Standard Drinks/Week Comments Yes 0 (1 standard drink = 0.6 oz pure alcoho l) social Sex Assigned at Date Recorded Not on file documented as of this encounter Last Filed Vital Signs Vital Sign Reading Time Taken Comments Blood Pressure 90/60 07/18/2008 3:30 PM DIGITAL MARKETER Pulse 70 07/18/2008 3:30 PM DIGITAL MARKETER Temperature - - Respiratory Rate - - Oxygen Saturation - - Inhaled Oxygen Concentration - - Weight - - Height - - Body Mass Index - - documented in this encounter Progress Notes Aleksandra Jimenez - 07/18/2008 12:51 PM CST SUBJECTIVE: Dariana is a 32 year old female presenting with onset this morning of headache in bilat temples, nowwith incresaed pain to rt side and under both eyes. Sharp pain, light and sound sensitive. No nauseaand vomiting. No significant cold symptoms. No fever or body aches. Currently at end of menses. Hx of infrequent migraines, imitrex shots in past have helped. Past Medical History Diagnosis Date ??? Calculus of Kidney ??? Depressive Disorder, not Elsewhere Classified ??? Anxiety State, Unspecified Current Outpatient Rx Name Route Sig Dispense Refill ??? TORADOL 30 MG/ML IM SOLN Intramuscular 60 mg IM now 60mg 0 ??? HYDROXYZINE HCL 25 MG/ML IM SOLN Intramuscular 25 mg now 1 0 ??? MACROBID 100 MG OR CAPS Oral 1 tab po bid x 7 days 14 0 ??? CELEXA 40 MG OR TABS Oral 1 tab PO day for depression 30 2 ??? TRAZODONE HCL 50 MG OR TABS Oral ONE TO TWO TABLETS AT BEDTIME NEEDED FOR SLEEP 60 2 ??? LUNESTA 3 MG OR TABS Oral 1 TABLET AT BEDTIME 30 1 Allergies Allergen Reactions ??? Codeine OBJECTIVE: Appears in pain, sitting in darkened room; vitals stable; ENT: TMs normal, nose with mild congestion, pink mucosa, pharynx clear Neck supple, no adenopathy, normal chin to chest Heart RRR Lungs cTA Neuro: DTRs and strength symmetrical, CN 2-12 normal, pupils equal ASSESSMENT:/PLAN: 346.90G Migraine Headaches (primary encounter diagnosis) Comment: Plan: HYDROXYZINE HCL INJ (25 MG), TORADOL 30 MG/ML IM SOLN, HYDROXYZINE HCL 25 MG/ML IM SOLN, HYDROXYZINE HCL 25 MG/ML IM SOLN, HYDROXYZINE HCL 25 MG/ML IM SOLN Since it has been 6-7 hours since onset of migraine, will not treat with imitrex but instead use toradol and vistaril. Friend to drive her home, follow up tomorrow if symptoms persist TAL MARKETER documented in this encounter Nursing Notes 07/18/2008 3:30 PM CST >> MELISSA JANSEN Mon Jul 18, 2008 1:13 PM Injections given per EH. See mednotes for details. Melissa Robersonill, [facility] >> LIBRADO STEVENSON [facility] Jul 18, 2008 11:24 AM Darianasa Verito Osman presents for vitals declined, ongoing migraine, requesting imitrex. No LMP recorded. BP 90/60 Pulse 70 Estimated Body mass index is 28.14 kg/(m^2) as calculated from: Height of 5' 6.5 (1.689 m) as of 01/26/08 Weight of 177 lb (80.287 kg) as of 05/19/08 BP completed using cuff size: large. Librado Stevenson MA documented in this encounter Plan of Treatment Not on filedocumented as of this encounter Visit Diagnoses Diagnosis Migraine headaches - Primary Migraine, unspecified, without mention o f intractable migraine without mention of status migrainosus documented in this encounter Care Teams Wage And Hour Investigator Relationship Specialty Start Date End Date Melvin Palacios MD PCP - General 06/22/99 09/20/10 [address] [id number] documented as of this encounter
--- OUTSIDE RECORDS SUMMARY | 2022-04-02 12:47 | XMS_ITS | Encounter Summary ---
:1975 Author Organization [place] Address [address] [place] [address] Care Team Providers Name Role Phone Melvin Palacios MD Primary Care Provider Encounter Details Date Type Department Care Team Description 12/29/2008 Office Visit [facility] Barbara Wrist Pain (Primary Dx) Clinic [place] PA-C [id number] [place] [address] [address] [place], [place] [phone] Social History Tobacco Use Types Packs/Day Years Used Date Smoking Tobacco: Former Alcohol Use Standard Drinks/Week Comments Yes 0 (1 standard drink = 0.6 oz pure alcoho l) social Sex Assigned at Date Recorded Not on file documented as of this encounter Last Filed Vital Signs Vital Sign Reading Time Taken Comments Blood Pressure 106/60 12/29/2008 2:14 PM CDT Pulse 80 12/29/2008 2:14 PM CDT Temperature - - Respiratory Rate - - Oxygen Saturation - - Inhaled Oxygen Concentration - - Weight - - Height - - Body Mass Index - - documented in this encounter Progress Notes Aleksandra Jimenez - 12/29/2008 2:33 PM CDT SUBJECTIVE: Dariana Osman is a 33 year old female who c/o right wrist pain for 1 week. Mechanism of injury: none known of. 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 Symptoms have been unchanged since that time. Prior history of related problems: no prior problems with this area in the past. OBJECTIVE: Vital signs as noted above. Appearance: in no apparent distress. Wrist exam: mild tenderness over proximal thenar eminence and lateral carpal- metacarpal joint area, no swelling, tenderness, instability; ligaments intact, FROM all hand, wrist, finger joints. Mild discomfort with finkelsteins test. X-ray: not indicated. ASSESSMENT: Rt wrist strain PLAN: rest the injured area as much as practical, apply ice packs, IBU BID, trial with thumb spica splint,follow up if symptoms persist or worsen in 2 weeks. See orders in [facility]. documented in this encounter Nursing Notes 12/29/2008 2:15 PM CDT >> RACHID YIP Halley Dec 29, 2008 2:16 PM Dariana Osman presents for right wrist pain for the past qcouple of weeks. No LMP recorded. BP 106/60 Pulse 80 Estimated Body mass index is 27.39 kg/(m^2) as calculated from: Height of 5' 6.25 (1.683 m) as of 12/15/08 Weight of 171 lb (77.565 kg) as of 12/15/08 BP completed using cuff size: regular. Rachid Yip MA documented in this encounter Plan of Treatment Not on filedocumented as of this encounter Visit Diagnoses Diagnosis Wrist pain - Primary Pain in joint, forearm documented in this encounter Care Teams Tank Welder Relationship Specialty Start Date End Date Melvin Palacios MD PCP - General 06/22/99 09/20/10 [address] [id number] documented as of this encounter
--- OUTSIDE RECORDS SUMMARY | 2022-04-02 12:47 | XMS_ITS | Encounter Summary ---
:1975 Author Organization [place] Address [address] [place] [address] Care Team Providers Name Role Phone Melvin Palacios MD Primary Care Provider Reason for Visit Reason Comments Pharyngitis Urgent Care Encounter Details Date Type Department Care Team Description 10/05/2008 Office Visit [facility]e Funez Sor e Throat (Viral) Care ZENON [place] (Primary Dx) [email or web address] [facility] [place] [place]rez [phone] [place]UÁREZ [address] (Wo rk) Social History Tobacco Use Types Packs/Day Years Used Date Smoking Tobacco: Former Alcohol Use Standard Drinks/Week Comments Yes 0 (1 standard drink = 0.6 oz pure alcoho l) social Sex Assigned at Date Recorded Not on file documented as of this encounter Last Filed Vital Signs Vital Sign Reading Time Taken Comments Blood Pressure - - Pulse 76 10/05/2008 7:15 PM CDT Temperature 36.8 ??C (98.3 ??F) 10/05/2008 7:15 PM CDT Respiratory Rate - - Oxygen Saturation - - Inhaled Oxygen Concentration - - Weight - - Height - - Body Mass Index - - documented in this encounter Progress Notes Janee Funez - 10/05/2008 8:12 PM CDT SUBJECTIVE: Dariana Osman is a 32 year old female presenting with a chief complaint of nasal congestion, cold symptoms, sore throat and headache. NO fever noted. Wants to rule out strep. NO significant sinus pain or pressure Onset of symptoms was 2 day(s) ago. Course of illness is same. Severity mild Current and Associated symptoms: none Treatment measures tried include fluids, OTC meds and rest. Predisposing factors include son with similar sx. Past Medical History Diagnosis Date ??? Calculus of Kidney ??? Depressive Disorder, not Elsewhere Classified ??? Anxiety State, Unspecified Current outpatient prescriptions Medication Sig ??? CELEXA 40 MG OR TABS 1 tab PO day for depression ??? TRAZODONE HCL 50 MG OR TABS ONE TO TWO TABLETS AT BEDTIME NEEDED FOR SLEEP ??? SALICYLIC ACID 40 % EX MISC Please compound 40% salicylic acid in eucerin base--patient to applythin layer to warts once per day. ??? AMOXICILLIN 500 MG OR TABS 2 tabs po bid x 10 days ??? TORADOL 30 MG/ML IM SOLN 60 mg IM now ??? HYDROXYZINE HCL 25 MG/ML IM SOLN 25 mg now ??? LUNESTA 3 MG OR TABS 1 TABLET AT BEDTIME History Substance Use Topics ??? Tobacco Use: Quit ??? Alcohol Use: Yes social ROS: Review of systems negative except as stated above. OBJECTIVE :Pulse 76 Temp (Src) 98.3 ??F (36.8 ??C) (Oral) GENERAL APPEARANCE: healthy, alert and no distress EYES: EOMI, PERRL, conjunctiva clear HENT: ear canals and TM's normal. Nose and mouth without ulcers, erythema or lesions. NO sinus tenderness NECK: supple, nontender, no lymphadenopathy RESP: lungs clear to auscultation - no rales, rhonchi or wheezes CV: regular rates and rhythm, normal S1 S2, no murmur noted NEURO: Normal strength and tone, sensory exam grossly normal, normal speech and mentation SKIN: no suspicious lesions or rashes RST - negative ASSESSMENT: Viral Syndrome PLAN: OTC supportive care. Culture pending. OTC supportive care. Fu with PCp as needed if sx persist or worsen See orders in [facility]. documented in this encounter Nursing Notes 10/05/2008 6:45 PM CDT >> JANEE DAS FriOct 05, 2008 7:22 PM Dariana Osman is a 32 year old female Patient presents with: Pharyngitis Urgent Care Sore throat: Yes. Fever: No. Rhinorrhea: No. Cough: No. Sinus: No. Headache: Yes. Stomach ache: No. Also sore, swollen glands. ONSET: 2 days ago. Initial Vital Signs Pulse 76 Temp (Src) 98.3 ??F (36.8 ??C) (Oral) BP completed using cuff size: NA (Not Taken) Janee Das RN documented in this encounter Plan of Treatment Not on filedocumented as of this encounter Procedures Procedure Name Priority Date/Time Associated Diagnosis Comme nts HCL STREP GROUP A Routine 10/05/2008 7:36 PM Sore Throat (Kimmie l) Results for this ANTIGEN (RAPID) CDT procedure ar e in the results section. HCL BETA STREP Routine 10/05/2008 7:36 PM Sore Throat (Viral) Results for this CONFIRM CDT procedure are i n the results section. documented in this encounter Results BETA STREP CONFIRM (10/05/2008 7:36 PM CDT) Component Value Ref Test Analysis Performed At [facility] gist Range Method Time Signature Specimen Throat [facility] Culture Micro No Beta EUNICE Streptococcus [facility] isolated LAB Report status FINAL 10/07/2008 [facility] Specimen Anatomical Collection Method Collection Time Receive d Time (Source) Location / / Volume Laterality 10/05/2008 7:36 PM 9 7:41 CDT PM CDT Stefanie Rojas MD LABORATORY Performing Organization Address City/State/ZIP Code Phon e Number [facility] [address] [place] [address] [facility] STREP GROUP A ANTIGEN (RAPID) (10/05/2008 7:36 PM CDT) Component Value Ref Test Analysis Performed At [facility] Roseonly Range Method Time Signature Specimen Throat [facility] Rapid Strep A NEGATIVE: No Group A strepto coccal antigen detected by immunoassay, await EUNICE Screen culture report. [facility] Report status FINAL 10/05/2008 [facility] Specimen Anatomical Collection Method Collection Time Receive d Time (Source) Location / / Volume Laterality 10/05/2008 7:36 PM 9 7:41 CDT PM CDT Stefanie Rojas MD LABORATORY Performing Organization Address City/State/ZIP Code Phon e Number [facility] [address] [place] [address] [facility] documented in this encounter Visit Diagnoses Diagnosis Sore throat (viral) - Primary Acute pharyngitis documented in this encounter Care Teams Power Plant Supervisor Relationship Specialty Start Date End Date Melvin Palacios MD PCP - General 06/22/99 09/20/10 [address] [id number] documented as of this encounter
--- OUTSIDE RECORDS SUMMARY | 2022-04-02 12:47 | XMS_ITS | Encounter Summary ---
:1975 Author Organization [place] Address [address] [facility] [place] [address] Care Team Providers Name Role Phone Melvin Palacios MD Primary Care Provider Reason for Visit Reason Comments Medication Problem with her ambien- she takes i t at 10 30 or 11 pm and she is up by 4 am. Her panic attacks have d ecreased- however she is not working anymore. Encounter Details Date Type Department Care Team Description 03/22/2009 Office Visit [facility] Melvin Palacios MD Adjustment Disorder Clinic [place] [address] with Anxiety (Primary [address] [facility]) [place] [address] [phone] Social History Tobacco Use Types Packs/Day Years Used Date Smoking Tobacco: Every Day Comments: 1-2 every other day Alcohol Use Standard Drinks/Week Comments Yes 0 (1 standard drink = 0.6 oz pure alcoho l) social Sex Assigned at Date Recorded Not on file documented as of this encounter Last Filed Vital Signs Vital Sign Reading Time Taken Comments Blood Pressure 110/60 03/22/2009 3:02 PM CDT Pulse - - Temperature - - Respiratory Rate - - Oxygen Saturation - - Inhaled Oxygen Concentration - - Weight 74.4 kg (164 lb) 03/22/2009 3:02 PM CDT Height 167.6 cm (5' 6) 03/22/2009 3:02 PM CDT Body Mass Index 26.47 03/22/2009 3:02 PM CDT documented in this encounter Progress Notes Melvin Palacios - 03/22/2009 3:19 PM CDT SUBJECTIVE: Dariana Osman 33 year old female presents for adjsutment DO.She is off work on FMLA. She is sleeping with zolpidem around 6 hours a night. She has begun napping in the afternoon. Herpanic attacks have decreased in frequency and severity. Histories Udpated through 03-22-2009: Past Medical History Diagnosis Date ??? Calculus [...] affect is mildly flat. Patient's speech is normal. Patient displays no delusions or hallucinations. Patient denies any suicidal or homicidal ideation. Patient continues to contract to contactus if any thought of violent ideation occurs. ASSESSMENT/PLAN: 1- Adjustment DO. Improved. Maintain current regimen. Will not icnrease celexa for now. Have the pt exercise in midafternoon to avoid tiring and napping. Renew zolpide. F?U in 2 weeks. documented in this encounter Nursing Notes 03/22/2009 2:45 PM CDT >> TOBY THAO Wed Mar 22, 2009 3:04 PM Patient presents with: Medication Problem - with her ambien- she takes it at 10 30 or 11 pm and she is up by 4 am. Her panic attacks have decreased- however she is not working anymore. Initial BP 110/60 Ht 5' 6 (1.676 m) Wt 164 lb (74.39 kg) Body mass index is 26.47 kg/(m^2).. BP completed using cuff size: regular Toby Thao CMA documented in this encounter Plan of Treatment Not on filedocumented as of this encounter Visit Diagnoses Diagnosis Adjustment disorder with anxiety - Prima ry documented in this encounter Care Teams Global Program Manager Relationship Specialty Start Date End Date Melvin Palacios MD PCP - General 06/22/99 09/20/10 [address] [id number] documented as of this encounter
--- OUTSIDE RECORDS SUMMARY | 2022-04-02 12:47 | XMS_ITS | Encounter Summary ---
:1975 Author Organization [place] Address [address] [address]. [place] [address] Care Team Providers Name Role Phone Melvin Palacios MD Primary Care Provider Encounter Details Date Type Department Care Team Description 11/04/2008 Office Visit [facility] Melvin Palacios MD Panic Attack (Primary Clinic [place] [address] [place]) [address] [place], [place] [phone] [id number] Social History Tobacco Use Types Packs/Day Years Used Date Smoking Tobacco: Former Alcohol Use Standard Drinks/Week Comments Yes 0 (1 standard drink = 0.6 oz pure alcoho l) social Sex Assigned at Date Recorded Not on file documented as of this encounter Progress Notes Melvin Palacios - 11/04/2008 10:41 AM CDT Pt seen due to panic attack incited by marital crisis. She just took xanax for the first time in several months and is feeling better. Her citalopram has been doing well for her. EXAM: Psych: affect labile. No violent ideation. No delusions or hallucinations. Sppech normal melyssa andspeed. She is fatigued, but has good to excellent insight. A/P; 1- Panic attack. Discussed with pt. She is claming down. She is to rest appropriately and maiintain consistent schedule. F/U prn. documented in this encounter Plan of Treatment Not on filedocumented as of this encounter Visit Diagnoses Diagnosis Panic attack - Primary Panic disorder without agoraphobia documented in this encounter Care Teams Adjunct Writing Instructor Relationship Specialty Start Date End Date Melvin Palacios MD PCP - General 06/22/99 09/20/10 [address] [id number] documented as of this encounter
--- OUTSIDE RECORDS SUMMARY | 2022-04-02 12:48 | XMS_ITS | Encounter Summary ---
:1975 Author Organization [place] Address [facility] [place] [address] Care Team Providers Name Role Phone Melvin Palacios MD Primary Care Provider Reason for Referral Referral not Required - Closed Specialty Diagnoses / Procedures Referred By Contact Refer red To Contact Diagnoses Gross hematuria Aleksandra Jimenez PA-C [facility] [address] [place] [address] [address] [facility] [address] [place] [phone] [place] [address] Phone: [phone] Fax: Referral ID Status Reason Start Date Expiration Date Visits Requ ested Visits Authorized [id number] Closed 03/17/2008 06/08/2011 1 1 Reason for Visit Reason Comments Urinary Problem Encounter Details Date Type Department Care Team Description [facility] [place] Yeast Infection of the Vagina [facility] [address] [place], [place] [phone] Social History Tobacco Use Types Packs/Day Years Used Date Smoking Tobacco: Former Alcohol Use Standard Drinks/Week Comments Yes 0 (1 standard drink = 0.6 oz pure alcoho l) social Sex Assigned at Date Recorded Not on file documented as of this encounter Progress Notes Aleksandra Jimenez - 03/17/2008 12:12 PM CDT SUBJECTIVE: Dariana is a 32 year old female presenting with left lower pelvic pain, flank pain and hematuria, onset yesterday. Treated one week ago with rocephin for UTI and these symptoms seemed to resolve. Notessome vaginal itching but no burning. No fever. No hx of significant bladder problems or infections but has had renal stones in past Past Medical History Diagnosis Date ??? Calculus of Kidney ??? Depressive Disorder, not Elsewhere Classified ??? Anxiety State, Unspecified Current Outpatient Rx Name Route Sig Dispense Refill ??? MACROBID 100 MG OR CAPS Oral 1 tab po bid x 7 days 14 0 ??? DIFLUCAN 150 MG OR TABS Oral 1 tab po q3 days until symptoms resolved 3 0 ??? ROCEPHIN 1 GM IJ SOLR Injection 1 gm now 1 0 ??? PYRIDIUM 200 MG OR TABS Oral 1 TABLET 3 TIMES DAILY AFTER MEALS 6 0 ??? CELEXA 40 MG OR TABS Oral 1 tab PO day 30 11 ??? LUNESTA 3 MG OR TABS Oral 1 TABLET AT BEDTIME 30 1 ??? TORADOL 30 MG/ML IM SOLN Intramuscular 30 MG EVERY 6 HOURS NEEDED 20 0 ??? IMITREX 6 MG/0.5ML IJ SOLN Injection 0.5 ML 1 TIME ONLY .5 0 ??? SKELAXIN 800 MG OR TABS Oral 1 TABLET 3 TIMES DAILY prn for back pain 90 0 ??? LEXAPRO 20 MG OR TABS Oral ONE and 1/2 tablets daily 45 0 ??? LEXAPRO 10 MG OR TABS Oral 2 tabs daily 60 1 YEAR ??? IMITREX 6 MG/0.5ML IJ SOLN Injection 0.5 ML 1 TIME ONLY .5 0 Allergies Allergen Reactions ??? Codeine OBJECTIVE: Well appearing though concerned, NAD; vitals stable; Abdomen with mild-mod left sided and left pelvic pain, and mild rt sided pelvic pain. No guarding. UA shows >100RBCs, and yeast CT this morning shows no ureteral stone ASSESSMENT:/PLAN: 599.71 Gross Hematuria (primary encounter diagnosis) Comment: Plan: UA MICRO IF POSITIVE, CULTURE, URINE (MISYS), MACROBID 100 MG OR CAPS, CT SCAN ABDOMEN/PELVIS, MICRO EXAM-URINE Discussed test results, possibly passed a stone already vs unresolved UTI. Start abx and push fluids, urology referral if symptoms persist. after today's appt, Dariana asks if she can see urology [facility] so we have called and she has an appttoday with them. 112.1AY Yeast Infection of the Vagina Comment: Plan: DIFLUCAN 150 MG OR TABS documented in this encounter Nursing Notes 03/17/2008 11:15 AM CDT >> LIBRADO STEVENSON [facility] Mar 17, 2008 11:46 AM Dariana Osman presents for vitals deferred per patient, sent straight to hospital for CT per . No LMP recorded. There were no vitals taken for this visit. Estimated Body mass index is 29.25 kg/(m^2) as calculated from: Height of 5' 6.5 (1.689 m) as of 01/26/08 Weight of 184 lb (83.462 kg) as of 01/26/08 BP completed using cuff size:NA. Librado Stevenson MA documented in this encounter Plan of Treatment Not on filedocumented as of this encounter Procedures Procedure Name Priority Date/Time Associated Diagnosis Comme nts ZZ CONSULT Routine 04/07/2008 Gross Hematuria UROLOGY HCL CULTURE, URINE Routine 03/17/2008 8:49 AM Gross Hematuria Results for this (MISYS) CDT procedure are i n the results section. HCL UA MICRO IF Routine 03/17/2008 8:49 AM Gross Hematuria Res ults for this POSITIVE CDT procedure are i n the results section. CL AFF MICRO Routine 03/17/2008 8:49 AM Gross Hematuria Result s for this EXAM-URINE CDT procedure are i n the results section. documented in this encounter Results CONSULT UROLOGY (04/07/2008) Narrative This result has an attachment that is no t available. Aleksandra Jimenez PA-C REFERRAL (ABNORMAL) MICRO EXAM-URINE (03/17/2008 8:49 AM CDT) [facility] Method Time Signature WBC Urine O - 2 0 - 2 [facility] RBC Urine >100 (A) 0 - 2 [facility] Squamous EPI Few FEW /LPF [facility] Bacteria Moderate (A) NEG /HPF [place] Urine [facility] Yeast Urine Few (A) NEG /HPF [facility] Mucous Urine Present (A) NEG /LPF [facility] Specimen Anatomical Collection Method Collection Time Receive d Time (Source) Location / / Volume Laterality 03/17/2008 8:49 AM 8 8:51 CDT AM CDT Aleksandra Jimenez PA-C LABORATORY Performing Organization Address City/[facility]/ZIP Code Phon e Number [facility] [id number] [place] [address] [phone] [facility] CULTURE, URINE (MISYS) (03/17/2008 8:49 AM CDT) [facility] Method [place] Signature Specimen Midstream [place] Description Urine [facility] Culture Micro No growth [facility] Report status FINAL [place] 03/19/2008 [facility] Specimen Anatomical Collection Method Collection Time Receive d Time (Source) Location / / Volume Laterality 03/17/2008 8:49 AM 8 8:51 CDT AM CDT Authorizing Provider Result Ester Jimenez PA-C LABORATORY Performing Organization Address City/State/ZIP Code Phon e Number [facility] [phone] [id number] [facility] (ABNORMAL) UA MICRO IF POSITIVE (03/17/2008 8:49 AM CDT) [facility] Method Time Signature Color Urine Red [facility] Appearance Urine Cloudy [facility] Glucose Urine Negative NEG mg/dL [facility] Bilirubin Urine Negative NEG [facility] Ketones Urine Negative NEG mg/dL [facility] Specific Vestal 1.025 1.003 - [place] Urine 1.035 [facility] Blood Urine Large (A) NEG [facility] pH Urine 5.5 5.0 - 7.0 [place] pH [facility] Protein Albumin >=300 (A) NEG mg/dL [place] U[facility] Urobilinogen 0.2 0.2 - 1.0 [place] Urine EU/dL [facility] Nitrite Urine Negative NEG [facility] Leukocyte Negative NEG [facility] Esterase Urine [facility] Source Midstream [facility] Urine [facility] Specimen Anatomical Collection Method Collection Time Receive d Time (Source) Location / / Volume Laterality 03/17/2008 8:49 AM 8 8:51 CDT AM CDT Aleksandra Jimenez PA-C LABORATORY Performing Organization Address City/State/ZIP Code Phon e Number [facility] [phone] [place] [address] [phone] [facility] documented in this encounter Visit Diagnoses Diagnosis Gross hematuria - Primary Yeast infection of the vagina Candidiasis of vulva and vagina documented in this encounter Care Teams Home Appliances Mechanic Relationship Specialty Start Date End Date Melvin Palacios MD PCP - General 06/22/99 09/20/10 [address] [id number] documented as of this encounter
--- OUTSIDE RECORDS SUMMARY | 2022-04-02 12:48 | XMS_ITS | Encounter Summary ---
:1975 Author Organization [place] Address [address] [facility] [place] [address] Care Team Providers Name Role Phone Melvin Palacios MD Primary Care Provider Encounter Details Date Type Department Care Team Description 04/08/2008 Operative Report [facility] William Black, (Supply Officer) [facility] Results [facility] [id number] [place] [id number] (Wo rk) Social History Tobacco Use Types Packs/Day Years Used Date Smoking Tobacco: Former Alcohol Use Standard Drinks/Week Comments Yes 0 (1 standard drink = 0.6 oz pure alcoho l) social Sex Assigned at Date Recorded Not on file documented as of this encounter Progress Notes William Black - 04/23/2008 8:20 AM CERTIFIED FIRST ASSISTANT FINAL PREOPERATIVE DIAGNOSIS: Left ureteral stone. POSTOPERATIVE DIAGNOSIS: Left ureteral stone. Ureteral stricture. PROCEDURE: Cystoscopy, balloon dilation of ureteral stricture, holmium laser lithotripsy of stone, retrograde pyelogram, left stent. ANESTHESIA: General. INDICATIONS: Dariana Valdez is a 32-year-old female who has failed to pass a stone over a number ofweeks. She currently has a left renal colic. FINDINGS: Distal ureteral stricture at about the level of where the ureter enters the bladder. She also had stricture around the stone which was very dense and hard. TECHNIQUE: The patient was taken to the cysto suite and placed in the dorsal lithotomy position andthe perineum was prepped and draped in sterile fashion. Her CT scan was up in the room for visualization. A Glidewire was passed up the kidney and the second wire was also passed. Eventually two Bentsons were placed up the kidney and the ureteroscope passed over one of these. The scope could not be advanced past the stricture and therefore, the balloon dilator was used. At this point, the stone could be e ncountered but it was snug fit around the proximal scope where the stricture had been. The stone washit with a laser fiber but it was very mobile in an effort to keep it from migrating to the kidney, it was grasped with a nitinol basket and pulled to the distal ureter. At the area of the dilated stricture, it did become lodged again and therefore, the basket was disassembled and the ureteroscope passed alongside of it and while the basket was holding the stone, the stone was broken with the laser fiber. It was very dense and hard and black on the inside. It was broken into fragments all less than 1 mm in size. The scope was removed and then the retrograde performed and a 6 Urdu x 24 cm double-Jureteral stent was passed over the remaining guidewire and verified to be in position by fluoroscopyand direct vision. The bladder was emptied and the procedure was complete. Electronically signed on 04/23/2008 08:20 by WILLIAM BLACK MD MT: [email or web address] Name: DARIANA VALDEZ Account: [id number] : 1975 Procedure Date: 04/08/2008 Document: [id number] IFIED FIRST ASSISTANT documented in this encounter Plan of Treatment Not on filedocumented as of this encounter Visit Diagnoses Not on filedocumented in this encounter Care Teams Teacher Of The Hearing Impaired Relationship Specialty Start Date End Date Melvin Palacios MD PCP - General 06/22/99 09/20/10 [address] [place] [id number] documented as of this encounter
--- OUTSIDE RECORDS SUMMARY | 2022-04-02 12:48 | XMS_ITS | Encounter Summary ---
:1975 Author Organization [place] Address [address] [place] [address] Care Team Providers Name Role Phone Melvin Palacios MD Primary Care Provider Encounter Details Date Type Department Care Team Description 03/17/2008 Results Only [facility] Gurmeet Jimenez , Hospital Results PA-C [facility] [address] [place] [address] (Wo rk) Social History Tobacco Use [...] Associated Diagnosis Comme nts CT SCAN Routine 03/17/2008 9:46 AM Results f or this ABDOMEN/PELVIS CDT procedure are in the results section. documented in this encounter Results CT SCAN ABDOMEN/PELVIS (03/17/2008 9:46 AM CDT) Anatomical Region Laterality Modality Other Specimen (Source) Anatomical Collection Method Collection Time Re ceived Time Location / / Volume Laterality 03/17/2008 9:46 AM CDT Impressions 03/17/2008 3:[address] ABDOMEN/PELVIS WITHOUT CONTRAST ?? Oc t 2007, 9:46 AM HISTORY: Gross hematuria. Left back pain . History of renal stones. TECHNIQUE: 5 mm thick axial slices were obtained from the lung bases to the ischial tuberosities. Coronal valerie ges were also reconstructed. Renal stone protocol. COMPARISON: 08/21/2006 FINDINGS: The lung bases are clear. The liver, gallbladder, pancreas and adrenal glands have normal noncontra st appearances. Small accessory spleen. The spleen is otherwis e normal. The right kidney, collecting system and ureter are normal. There is a 6 mm stone within the left renal pelvis just above the UPJ , which does not appear to cause obstruction. There are two tiny ca lculi in the left kidney, one at the upper pole, and the other in the left mid kidney. No other urinary calculi are seen. Tiny cortical cyst in the left mid kidney laterally. The bladder has a normal nonc ontrast appearance. Normal caliber small bowel and colon. Normal ap pendix. IMPRESSION: 1. ??A 6 mm stone within the left renal pelvis just above the ureteropelvic junction, which does not a ppear to cause obstruction. 2. ??Two tiny calculi located in the lef t mid kidney and left upper pole. Aleksandra Jimenez PA-C [facility] IMAGING STUDIES documented in this encounter Visit Diagnoses Not on filedocumented in this encounter Care Teams Hotel Baggage Handler Relationship Specialty Start Date End Date Melvin Palacios MD PCP - General 06/22/99 09/20/10 [address] [address] [id number] documented as of this encounter
--- OUTSIDE RECORDS SUMMARY | 2022-04-02 12:48 | XMS_ITS | Encounter Summary ---
:1975 Author Organization [place] Address [address] [place] [address] Care Team Providers Name Role Phone Melvin Palacios MD Primary Care Provider Encounter Details Date Type Department Care Team Description 04/08/2008 Results Only [facility] William Gamez MD [facility] Results [id number] [place] [id number] (Wo rk) Social History Tobacco Use Types Packs/Day Years Used Date Smoking Tobacco: Former Alcohol Use Standard Drinks/Week Comments Yes 0 (1 standard drink = 0.6 oz pure alcoho l) social Sex Assigned at Date Recorded Not on file documented as of this encounter Plan of Treatment Not on filedocumented as of this encounter Procedures Procedure Name Priority Date/Time Associated Comments Diagnosis HC UROGRAPHY, Routine 04/08/2008 12:44 PM Results for this RETROGRADE W/WO KUB CDT procedur e are in the results section. documented in this encounter Results X-RAY RETROGRADE PYELOGRAM (04/08/2008 12:44 PM CDT) Anatomical Region Laterality Modality Other Specimen (Source) Anatomical Collection Method Collection Time Re ceived Time Location / / Volume Laterality 04/08/2008 12:44 PM CDT Impressions 04/08/2008 1:16 PM CDT SURG RETRO 1 FILM Apr 08, 2008 12:44:00 PM HISTORY: Left retrograde pyelogram and s tent placement. 21 seconds fluoroscopy. COMPARISON: CT of pelvis 04/06/2008 FINDINGS: Two films from left retrograde pyelogram are submitted for interpretation. The first demonstrates o pacification of the mid and distal left ureter which are nondistende d. The proximal left ureter is not opacified but there is contrast in a nondistended left pelvicalyceal system. A left ureter sten t is noted on both films. The second film demonstrates continued opaci fication of nondistended left collecting system and drainage of the le ft ureter around the stent. William Gamez MD [facility] documented in this encounter Visit Diagnoses Not on filedocumented in this encounter Care Teams Leakage Tester Relationship Specialty Start Date End Date Melvin Palacios MD PCP - General 06/22/99 09/20/10 [address] [address] [id number] documented as of this encounter
--- OUTSIDE RECORDS SUMMARY | 2022-04-02 12:48 | XMS_ITS | Encounter Summary ---
:1975 Author Organization [place] Address [address] [place] [address] Care Team Providers Name Role Phone Melvin Palacios MD Primary Care Provider Reason for Visit Reason Onset Date Comments Formulary Issue 02/17/2008 LUNESTA 3MG Encounter Details Date Type Department Care Team Description 02/17/2008 Telephone [facility] Melvin Palacios MD Formulary Issue [facility] [place] [address] (LUNESTA 3MG) [address] [place] [address] [id number] (Wo rk) Social History Tobacco Use Types Packs/Day Years Used Date Smoking Tobacco: Former Alcohol Use Standard Drinks/Week Comments Yes 0 (1 standard drink = 0.6 oz pure alcoho l) social Sex Assigned at Date Recorded Not on file documented as of this encounter Miscellaneous Notes Telephone Encounter - Laine Lemus - 02/25/2008 5:53 PM CDT NICK Lemus CMA Telephone Encounter - Cris Bowman - 02/19/2008 9:57 AM CDT PA Forms Filled Out and Re-Faxed to Insurance Company. Awaiting Approval and/or Denial Note. Sonny Bowman [employer] TOP INSTALLER Telephone Encounter - Laine Lemus - 02/18/2008 3:25 PM CDT PA faxed to [employer] Lemus CMA Telephone Encounter - Kristine Bermudez - 02/17/2008 1:03 PM CDT PA NEEDED ON: LUNESTA 3MG INS IS: [employer] ([employer]) PHONE # IS: ID# IS: [id number] PLEASE LET US KNOW WHEN PA IS EITHER GRANTED OR DENIED. THANK YOU. KRISTINE BERMUDEZ [facility] documented in this encounter Plan of Treatment Not on filedocumented as of this encounter Visit Diagnoses Diagnosis Depressive disorder, not elsewhere class ified Insomnia Insomnia, unspecified documented in this encounter Care Teams Road Consultant Relationship Specialty Start Date End Date Melvin Palacios MD PCP - General 06/22/99 09/20/10 [address] [id number] documented as of this encounter
--- OUTSIDE RECORDS SUMMARY | 2022-04-02 12:48 | XMS_ITS | Encounter Summary ---
:1975 Author Organization [place] Address [address] [place] [id number] Care Team Providers Name Role Phone Melvin Palacios MD Primary Care Provider Encounter Details Date Type Department Care Team Description 04/13/2008 Historic Results INTERFACED REPORT Admit, Unknown Social History Tobacco Use Types Packs/Day Years Used Date Smoking Tobacco: Former Alcohol Use Standard Drinks/Week Comments Yes 0 (1 standard drink = 0.6 oz pure alcoho l) social Sex Assigned at Date Recorded Not on file documented as of this encounter Plan of Treatment Not on filedocumented as of this encounter Procedures Procedure Name Priority Date/Time Associated Comments Diagnosis URINE CULTURE Routine 04/13/2008 6:07 AM Results for this DIE SETTER procedure are i n the results section. CBC WITH PLATELETS & STAT 04/13/2008 6:02 AM R esults for this DIFFERENTIAL DIE SETTER procedure are i n the results section. ROUTINE UA WITH STAT 04/13/2008 6:02 AM Result s for this MICROSCOPIC DIE SETTER procedure are i n the results section. BASIC METABOLIC PANEL STAT 04/13/2008 6:02 AM Results for this DIE SETTER procedure are i n the results section. documented in this encounter Results Urine culture (04/13/2008 6:07 AM DIE SETTER) [facility] Method Time Signature Specimen Midstream Urine MISYS Description Culture Micro <10,000 MISYS colonies/mL Escherichia coli Comment: Faxed to [phone] on 04/15/08 H M Micro Report Status FINAL 04/15/2008 MIS YS Specimen Anatomical Collection Method Collection Time Receive d Time (Source) Location / / Volume Laterality 04/13/2008 6:07 AM 8 7:08 DIE SETTER AM DIE SETTER Organism Antibiotic Method Susceptibility <10,000 colonies/ml Ampicillin >=32 Resista nt escherichia coli (kirsten) <10,000 colonies/ml Amoxicillin/Clav 16 Intermed iate escherichia coli (kirsten) <10,000 colonies/ml Ceftriaxone <=1 Suscepti ble escherichia coli (kirsten) <10,000 colonies/ml Cefotaxime Deduced Susc eptible escherichia coli (kirsten) <10,000 colonies/ml Cefazolin <=4 Suscepti ble escherichia coli (kirsten) <10,000 colonies/ml Ciprofloxacin >=4 Resistan t escherichia coli (kirsten) <10,000 colonies/ml Nitrofurantoin <=16 Suscept ible escherichia coli (kirsten) <10,000 colonies/ml Gentamicin <=1 Suscepti ble escherichia coli (kirsten) <10,000 colonies/ml Levofloxacin >=8 Resistan t escherichia coli (kirsten) <10,000 colonies/ml Trimethoprim/Sulfamethoxazole <=1/19 Susceptible escherichia coli (kirsten) <10,000 colonies/ml Ticarcillin >=128 Resist ant escherichia coli (kirsten) <10,000 colonies/ml Ticarcillin/Clav 16 Suscepti ble escherichia coli (kirsten) <10,000 colonies/ml Tobramycin <=1 Suscepti ble escherichia coli (kirsten) <10,000 colonies/ml Cefuroxime Axetil 4 Suscepti ble escherichia coli (kirsten) Dr Unknown Admit LAB - MICRO GENERAL ORDERABL ES Performing Organization Address City/State/ZIP Code Phon e Number MISYS (ABNORMAL) CBC with platelets differential (04/13/2008 6:02 AM DIE SETTER) [facility] Method Time Signature MCV 89 78 - 100 MISYS fl MCH 29.9 26.5 - MISYS 33.0 pg MCHC 33.7 31.5 - MISYS 36.5 g/dL RDW 12.9 10.0 - MISYS 15.0 % WBC 9.7 4.0 - MISYS 11.0 10e9/L RBC Count 4.73 3.8 - 5.2 MISYS 10e12/L Hemoglobin 14.1 11.7 - MISYS 15.7 g/dL Hematocrit 41.9 35.0 - MISYS 47.0 % % Neutrophils 79 (H) 40 - 75 % MISYS % Lymphocytes 12 (L) 20 - 48 % MISYS % Monocytes 7 0 - 12 % MISYS % Eosinophils 2 0 - 6 % MISYS % Basophils 0 0 - 2 % MISYS Platelet Count 330 150 - 450 MISYS 10e9/L Absolute 7.6 1.6 - 8.3 MISYS Neutrophil 10e9/L Absolute 1.2 0.8 - 5.3 MISYS Lymphocytes 10e9/L Absolute 0.7 0.0 - 1.3 MISYS Monocytes 10e9/L Absolute 0.2 0.0 - 0.7 MISYS Eosinophils 10e9/L Absolute 0.0 0.0 - 0.2 MISYS Basophils 10e9/L Diff Method Automated MISYS Method Specimen Anatomical Collection Method Collection Time Receive d Time (Source) Location / / Volume Laterality 04/13/2008 6:02 AM 8 6:10 DIE SETTER AM DIE SETTER Donal Marie MD LAB - BLOOD ORDERABLES Performing Organization Address City/State/ZIP Code Phon e Number MISYS Basic metabolic panel (04/13/2008 6:02 AM DIE SETTER) P athologist Signature Sodium 141 133 - 144 MISYS mmol/L Potassium 3.4 3.4 - 5.3 MISYS mmol/L Chloride 104 94 - 109 MISYS mmol/L Carbon Dioxide 21 20 - 32 MISYS mmol/L Glucose 97 60 - 99 MISYS mg/dL Urea Nitrogen 10 5 - 24 MISYS mg/dL Creatinine 0.97 0.52 - 1.04 MISYS mg/dL Comment: New IDMS-traceable calibration beginning 10/08/07 GFR Estimate 67 >60 mL/min/1.7m2 MISYS GFR Estimate If Black 82 >60 mL/min/1.7m2 M ISYS Calcium 9.8 8.5 - 10.4 mg/dL MISYS Anion Gap 17 6 - 17 mmol/L MISYS Specimen Anatomical Collection Method Collection Time Receive d Time (Source) Location / / Volume Laterality 04/13/2008 6:02 AM 8 6:10 DIE SETTER AM DIE SETTER Donal Marie MD LAB - BLOOD ORDERABLES Performing Organization Address City/State/ZIP Code Phon e Number MISYS (ABNORMAL) Routine UA with microscopic (04/13/2008 6:02 AM DIE SETTER) [facility] Method Time Signature Source Midstream MISYS Urine Color Urine Yellow MISYS Appearance Urine Clear MISYS Glucose Urine Negative NEG mg/dL MISYS Bilirubin Urine Negative NEG MISYS Ketones Urine 40 (A) NEG mg/dL MISYS Specific [place] 1.026 1.003 - MISYS Urine 1.035 Blood Urine Large (A) NEG MISYS pH Urine 6.0 5.0 - 7.0 MISYS pH Protein Albumin 100 (A) NEG mg/dL MISYS Urine Urobilinogen Normal 0.0 - 2.0 MISYS mg/dL mg/dL Nitrite Urine Negative NEG MISYS Leukocyte Moderate (A) NEG MISYS Esterase Urine WBC Urine >182 (H) 0 - 2 MISYS /HPF RBC Urine >182 (H) 0 - 2 MISYS /HPF Squamous 27 (H) 0 - 1 MISYS Epithelial /HPF /HPF Urine Mucous Urine Present (A) NEG /LPF MISYS Specimen Anatomical Collection Method Collection Time Receive d Time (Source) Location / / Volume Laterality 04/13/2008 6:02 AM 8 6:10 DIE SETTER AM DIE SETTER Donal H Frank BANERJEE LAB - URINE ORDERABLES Performing Organization Address City/[facility] Phon e Number MISYS documented in this encounter Visit Diagnoses Not on filedocumented in this encounter Care Teams Web Production Manager Relationship Specialty Start Date End Date Melvin Palacios MD PCP - General 06/22/99 09/20/10 [address] [id number] documented as of this encounter
--- OUTSIDE RECORDS SUMMARY | 2022-04-02 12:48 | XMS_ITS | Encounter Summary ---
:1975 Author Organization [facility] Address [address] [place] [address] Care Team Providers Name Role Phone Melvin Palacios MD Primary Care Provider Encounter Details Date Type Department Care Team Description 03/17/2008 [facility] Tobi West NOT YET [facility] [place] ZENON Maddox DEFINED (Primary Dx) [id number] [place] [id number] [phone] Social History Tobacco Use Types Packs/Day Years Used Date Smoking Tobacco: Former Alcohol Use Standard Drinks/Week Comments Yes 0 (1 standard drink = 0.6 oz pure alcoho l) social Sex Assigned at Date Recorded Not on file documented as of this encounter Plan of Treatment Not on filedocumented as of this encounter Procedures Procedure Name Priority Date/Time Associated Diagnosis Comme [facility] X-RAY ABDOMEN AP VIEW (KUB) Routine 03/17/2008 DIAGNOSIS NOT YET DEFINED documented in this encounter Results X-RAY ABDOMEN 1 VW (03/17/2008) Anatomical Region Laterality Modality Other Narrative This result has an attachment that is no t available. Tobi West PA-C GENERAL IMAGING documented in this encounter Visit Diagnoses Diagnosis DIAGNOSIS NOT YET DEFINED - Primary documented in this encounter Care Teams Inspector Clip On Sunglasses Relationship Specialty Start Date End Date Melvin Palacios MD PCP - General 06/22/99 09/20/10 [address] [id number] documented as of this encounter
--- OUTSIDE RECORDS SUMMARY | 2022-04-02 12:48 | XMS_ITS | Encounter Summary ---
:1975 Author Organization [facility] Address [address] [place] [address] Care Team Providers Name Role Phone Melvin Palacios MD Primary Care Provider Encounter Details Date Type Department Care Team Description 04/13/2008 Historic Notes INTERFACED REPORT Interface, Transcript onMD Social History Tobacco Use Types Packs/Day Years Used Date Smoking Tobacco: Former Alcohol Use Standard Drinks/Week Comments Yes 0 (1 standard drink = 0.6 oz pure alcoho l) social Sex Assigned at Date Recorded Not on file documented as of this encounter Progress Notes Interface, Whitewasher - 08/26/2010 2:09 PM CDT Allergies ?? IVP Dye;Hives f0?? Codeine;Other pard par Basic Medication Information - History taken from:: Patient Medications (#1-10) - Medication: Tramadol - Medication: Compazine - Medication: Tylenol ES RIC Hill (RN)[Signed 05:45] Authored: Allergies, Basic Medication Information, Medications (#1-10) Interface, Whitewasher - 08/26/2010 2:08 PM CDT General Information - How to be addressed Dariana - Temporary living None required arrangements - Source of reliable Patient information - Arrived from Emergency department - personal care aid to Jose lees: - Phone 1: [phone] - Patient's Spoken Language, [place] communication style Advance Directive - Do you have a Advance No Health Care Directive? - Would you like to No receive information about Advanced Directives? Valuables - Valuables No Health and Illness History - Reason for flank pain admission/chief complaint as stated by patient - Expected length of Day(s) hospitalization - Describe previous Excellent general health - How do you heal? Fast - What helps you heal Rest faster? - Previous reaction to No anesthesia - Prosthetic Implants None - Does the patient have No a VAD (Vascular Access Device)? Allergies Drug ?? IVP Dye;Hives, Active f0?? Codeine;Other, Active pard par Substance Use - Tobacco Use None - Caffeine Use Yes - Caffeine Type Coffee - Caffeine Amount < 3 cups/day - History of Alcohol Yes Use - Alcohol Frequency Monthly or less - History of street No drug/inhalant/ medication abuse Review of Systems - Cardiac Problems No - Pulmonary Problems No - Peripheral Vascular No Problems - Neuro Muscular No Problems - ENT Problems No - GI Problems No - Bowel Program No - Problems Yes - Enuresis; kidney stones Conditions/Problems - Comments Stent placed 04/08 & removed 04/11 - Bladder Program No - Immune Problems No - Influenza vaccine Has not received for this flu season - Influenca vaccine No indication for vaccination Patient is a indications (check healthcare worker all that apply) - Influenca vaccine No contraindications contraindications (check all that apply) - Pneumococcal Vaccine Never immunized - Pneumococcal vaccine None of the above indications (offer year round) indications: check all that apply - Skin Problems Yes - Skin Tattoo Conditions/Problems - Endocrine Problems No - Mental Health Yes Problems - Mental Health Depression Conditions/Symptoms Cognitive Perceptual - Preferred Pain Scale Numerical 0-10 - Acceptable Comfort 2 is acceptable comfort level rating Level - Aggravating Factors Movement - History of Chronic No Pain - Alterations in No Sensation - Vision Problems No - Use of Sensory No Assistive Devices - Reading Problems No - Speech/Communication No Problems - Changes in thought No Process/Behavior - Factors influencing No factors identified readiness to learn - Factors that impact No barriers identified ability to learn - Learning Preferences Prefers written material; Prefers demonstration - Cultural Learning None Considerations - Developmental None Learning Considerations - [facility] Learning None Considerations Activity-Exercise/Self Care - Ambulation 0 - Independent with ambulation - Transferring 0 - Independent with transfers - Toileting 0- Independent with toileting - Bathing 0- Independent with bathing - Dressing 0- Independent with dressing - Eating 0- Independent with eating - Swallowing none - Fall history within No history of falls last six months - Which of the above None functional risks had a recent onset or change? - Important activities Family - Lives with Children - Describe living House environment Nutrition/Metabolic - Diet Regular - Nutrition Risk Screen No risk indicators present - Dental/Oral Status Teeth intact, good condition - Dentures No Sleep/Relaxation - Problems Sleeping No Role Relationships - QUESTION TO PATIENT: No. Are you now or have you ever been in a relationship where you have been abused physically, emotionally or sexually? - NURSE OBSERVATION: Is No there reasonable cause to believe the patient has been abused, assaulted, is self abusive, neglected or exploited? Coping-Stress Tolerance - Have you had a recent No major change/significant loss/stressor in your life Values/Beliefs/Spiritual Care - Would you like Does not wish to have anyone contacted pastoral care/clergy/nuclear plant technical advisor notified? Mutuality/Individual Preferences - What information none would help us give you more personalized care? - What if any None limitations on visitors, TV or phone calls would you like Signatures JACI JORGE (RN)[Signed 10:54] Authored: General Information, Advance Directive, Valuables, Health and Illness History, Allergies, Substance Use, Review of Systems, Cognitive Perceptual, Activity-Exercise/Self Care, Nutrition/Metabolic, Sleep/Relaxation, Role Relationships, Coping-Stress Tolerance, Values/Beliefs/Spiritual Care, Mut uality/Individual Preferences documented in this encounter Plan of Treatment Not on filedocumented as of this encounter Visit Diagnoses Not on filedocumented in this encounter Care Teams Ditch Digger Relationship Specialty Start Date End Date Melvin Palacios MD PCP - General 06/22/99 09/20/10 [address] [id number] documented as of this encounter
--- OUTSIDE RECORDS SUMMARY | 2022-04-02 12:48 | XMS_ITS | Encounter Summary ---
:1975 Author Organization [place] Address [address] [place] [address] Care Team Providers Name Role Phone Melvin Palacios MD Primary Care Provider Reason for Visit Reason Onset Date Comments Nurse Advice Line 03/02/2008 celexa Encounter Details Date Type Department Care Team Description 03/02/2008 [facility] Melvin Palacios MD Nurse Advice Line [facility] [place] [address] (celexa) [address] [facility] [place] [address] [phone] (Wo rk) Social History Tobacco Use Types Packs/Day Years Used Date Smoking Tobacco: Former Alcohol Use Standard Drinks/Week Comments Yes 0 (1 standard drink = 0.6 oz pure alcoho l) social Sex Assigned at Date Recorded Not on file documented as of this encounter Miscellaneous Notes Telephone Encounter - Ernestine Salinas - 03/02/2008 2:15 PM CDT Last OV: 01/26/08 Reason for visit: depression, anxiety Date last filled: 01/26/08 Last PHQ-9 score on record= 9 from 02/26/08 Cannot PSO, routed Ernestine Salinas RN Telephone Encounter - Ernestine Salinas - 03/02/2008 2:13 PM CDT Message from [employer]: Original authorizing provider: Tobi Barber PA-Csa Vishal Osman would like a refill of the following medications: CELEXA 40 MG OR TABS [Tobi Barber PA-C] Preferred pharmacy: other Comment: documented in this encounter Plan of Treatment Not on filedocumented as of this encounter Visit Diagnoses Diagnosis DEPRESSIVE DISORDER NEC Depressive disorder, not elsewhere class ified ANXIETY STATE NOS Anxiety state, unspecified documented in this encounter Care Teams Customer Solutions Specialist Relationship Specialty Start Date End Date Melvin Palacios MD PCP - General 06/22/99 09/20/10 [address] [id number] documented as of this encounter
--- OUTSIDE RECORDS SUMMARY | 2022-04-02 12:48 | XMS_ITS | Encounter Summary ---
:1975 Author Organization [facility] Address [address] [place] [address] Care Team Providers Name Role Phone Melvin Palacios MD Primary Care Provider Encounter Details Date Type Department Care Team Description 04/06/2008 Results Only [facility] [address] [place], [place] [address] (Wo rk) Social History [...] Associated Diagnosis Comme nts CT SCAN Routine 04/06/2008 9:24 PM Results f or this ABDOMEN/PELVIS CDT procedure are in the results section. documented in this encounter Results CT SCAN ABDOMEN/PELVIS (04/06/2008 9:24 PM CDT) Anatomical Region Laterality Modality Other Specimen (Source) Anatomical Collection Method Collection Time Re ceived Time Location / / Volume Laterality 04/06/2008 9:24 PM CDT Impressions 04/06/2008 11:[address] ABDOMEN/PELVIS WITHOUT CONTRAST ?? Oc tober 2007 9:24:00 PM HISTORY: Right abdominal and flank pain. Blood in the urine. History of renal calculi. TECHNIQUE: Noncontrast CT abdomen and pe lvis was performed. COMPARISON: 03/17/2008. FINDINGS: Abdomen/Pelvis: The lung bases are clear . No focal aggressive bony lesions. Four punctate calcifications in volving the left kidney are consistent with nonobstructive calculi, the largest measuring 3 mm at the left midkidney. The previously ident ified left renal pelvic calculus is now located within the mid t o distal left ureter, image 64 series 2. It measures 5-6 mm. There is n o evidence for significant left-sided hydronephrosis or hydroureter . No right-sided intrarenal calculi. No ri ght ureteral calculi. No right hydronephrosis or hydroureter. Noncontrast appearance of the renal pare nchyma shows no definite solid lesions. Probable cortical cyst in the l eft midkidney is stable. The liver, gallbladder, spleen, pancreas and adrenals appear normal. Appendix is normal. No small bowel obstruction. No free flui d. No evidence for lymphadenopathy which reaches CT size cr iteria for significance. IMPRESSION: 1. Previously identified left pelvic ronak culus has moved inferiorly and is now located within the mid to distal left ureter. No associated left hydronephrosis or hydroureter ident ified. 2. No significant change of other tiny l eft-sided nonobstructive renal calculi. 3. No right-sided calculi identified. Delta Bhat MD SPECIAL IMAGING STUDIES documented in this encounter Visit Diagnoses Not on filedocumented in this encounter Care Teams Charge Master Specialist Relationship Specialty Start Date End Date Melvin Palacios MD PCP - General 06/22/99 09/20/10 [address] [id number] documented as of this encounter
--- OUTSIDE RECORDS SUMMARY | 2022-04-02 12:48 | XMS_ITS | Encounter Summary ---
:1975 Author Organization [facility] Address [address] [place] [address] Care Team Providers Name Role Phone Melvin Palacios MD Primary Care Provider Encounter Details Date Type Department Care Team Description 04/06/2008 Historic Notes INTERFACED REPORT Interface, Transcript on, Social History Tobacco Use Types Packs/Day Years Used Date Smoking Tobacco: Former Alcohol Use Standard Drinks/Week Comments Yes 0 (1 standard drink = 0.6 oz pure alcoho l) social Sex Assigned at Date Recorded Not on file documented as of this encounter Progress Notes Interface, Ror Engineer - 08/26/2010 2:27 PM CDT Allergies ?? IVP Dye;Hives f0?? Codeine;Other pard par Discharge Orders Pharmacy - General Medications ?? Ondansetron -;ODT for ZOFRAN 4 mg dissolve tab(s) By Mouth Every 6 Hours PRN for Nausea/Vomiting Do not push through foil backing: PEEL BACK foil and GENTLY remove. Place on tongue immediately. Administration with liquid is unnecessary., , Active f0?? Tamsulosin -;SA for FLOMAX 400 mcg capsule(s) By Mouth Every Day PRN kidney stone pain, , Active pard par Pharmacy - Analgesic([facility] ONLY) ?? Oxycodone/Acetaminophen -;5/325 mg for PERCOCET 1 to 2 tablet(s) By Mouth Every 6 Hours PRN for Pain, , Active Destination - Destination: Home. The above information was obtained from available resources. Review this list with your primary physician and take all medications as directed. Signatures RIC JIMENEZ (RN)[Signed 22:49] Authored: Allergies, Discharge Orders, Destination documented in this encounter Plan of Treatment Not on filedocumented as of this encounter Visit Diagnoses Not on filedocumented in this encounter Care Teams Grocery Clerk Stocking Relationship Specialty Start Date End Date Melvin Palacios MD PCP - General 06/22/99 09/20/10 [address] [id number] documented as of this encounter
--- OUTSIDE RECORDS SUMMARY | 2022-04-02 12:48 | XMS_ITS | Encounter Summary ---
:1975 Author Organization [facility] Address [address] [place] [address] Care Team Providers Name Role Phone Melvin Palacios MD Primary Care Provider Encounter Details Date Type Department Care Team Description 04/06/2008 Historic Results INTERFACED REPORT Viajya Bhat MD [facility] [address] [place], [place] [address] (Wo rk) Social History [...] Procedure Name Priority Date/Time Associated Comments Diagnosis BASIC METABOLIC PANEL Routine 04/06/2008 8:00 PM Results for this CDT procedure are i n the results section. CBC WITH PLATELETS & STAT 04/06/2008 7:10 PM R esults for this DIFFERENTIAL CDT procedure are i n the results section. BASIC METABOLIC PANEL STAT 04/06/2008 7:10 PM Results for this CDT procedure are i n the results section. HCG QUALITATIVE URINE STAT 04/06/2008 7:00 PM Results for this CDT procedure are i n the results section. ROUTINE UA WITH STAT 04/06/2008 7:00 PM Result s for this MICROSCOPIC CDT procedure are i n the results section. URINE CULTURE STAT 04/06/2008 7:00 PM Results for this CDT procedure are i n the results section. documented in this encounter Results (ABNORMAL) Basic metabolic panel (04/06/2008 8:00 PM CDT) P athologist Signature Sodium 137 133 - 144 [place] mmol/L Potassium 4.0 3.4 - 5.3 [place] mmol/L Chloride 105 94 - 109 [place] mmol/L Carbon Dioxide 24 20 - 32 [place] mmol/L Glucose 78 60 - 99 [place] mg/dL Urea Nitrogen 11 5 - 24 [place] mg/dL Creatinine 0.96 0.52 - 1.04 [place] mg/dL Comment: New IDMS-traceable calibration beginning 10/08/07 GFR Estimate 68 >60 mL/min/1.7m2 M[facility] GFR Estimate If Black 83 >60 mL/min/1.7m2 M ISYS Calcium 8.3 (L) 8.5 - 10.4 mg/dL M[facility] Anion Gap 8 6 - 17 mmol/L [facility] Specimen Anatomical Collection Method Collection Time Receive d Time (Source) Location / / Volume Laterality 04/06/2008 8:00 PM 8 7:[address] Unknown Admit LAB - BLOOD ORDERABLES Performing Organization Address City/State/ZIP Code Phon e Number MIS[place] CBC with platelets differential (04/06/2008 7:10 PM CDT) Patholo gist Method Time Signature MCV 88 78 - 100 [place] fl MCH 30.1 26.5 - [place] 33.0 pg MCHC 34.1 31.5 - [place] 36.5 g/dL RDW 13.1 10.0 - [place] 15.0 % WBC 7.6 4.0 - [place] 11.0 10e9/L RBC Count 4.25 3.8 - 5.2 [place] 10e12/L Hemoglobin 12.8 11.7 - [place] 15.7 g/dL Hematocrit 37.5 35.0 - [place] 47.0 % % Neutrophils 63 40 - 75 % MIS[facility] % Lymphocytes 25 20 - 48 % [place] % Monocytes 7 0 - 12 % [place] % Eosinophils 4 0 - 6 % [place]IS[facility] % Basophils 1 0 - 2 % [facility] Platelet Count 305 150 - 450 [place] 10e9/L Absolute 4.7 1.6 - 8.3 [place] Neutrophil 10e9/L Absolute 1.9 0.8 - 5.3 [place] Lymphocytes 10e9/L Absolute 0.5 0.0 - 1.3 [place] Monocytes 10e9/L Absolute 0.3 0.0 - 0.7 [place] Eosinophils 10e9/L Absolute 0.1 0.0 - 0.2 [facility] Basophils 10e9/L Diff Method Automated [facility] Method Specimen Anatomical Collection Method Collection Time Receive d Time (Source) Location / / Volume Laterality 04/06/2008 7:10 PM 8 6:55 CDT PM CDT Delta Bhat MD LAB - BLOOD ORDERABLES Performing Organization Address City/State/ZIP Code Phon e Number M[facility] Basic metabolic panel (04/06/2008 7:10 PM CDT) P athologist Signature Sodium Canceled, 133 - 144 [facility] Test credited mmol/L Comment: Unsatisfactory specimen - hemolyzed [facility] [address] [place] Potassium Canceled, Test credited 3.4 - 5.3 mmol/L [facility] Comment: Unsatisfactory specimen - hemolyzed [facility] [place] Chloride Canceled, Test credited 94 - 109 mmol/L [facility] Comment: Unsatisfactory specimen - hemolyzed [facility] [place] Carbon Dioxide Canceled, Test credited 20 - 32 mmol/L [facility] Comment: Unsatisfactory specimen - hemolyzed [facility] [place] Glucose Canceled, Test credited 60 - 99 mg/dL [place] SYS Comment: Unsatisfactory specimen - hemolyzed [facility] [place] Urea Nitrogen Canceled, Test credited 5 - 24 mg/dL [facility] Comment: Unsatisfactory specimen - hemolyzed [facility] [place] Creatinine Canceled, Test credited 0.52 - 1.04 mg/dL [facility] Comment: Unsatisfactory specimen - hemolyzed [facility] [place] GFR Estimate Canceled, Test credited >60 mL/min/1.7m2 [facility] Comment: Unsatisfactory specimen - hemolyzed [facility] [place] GFR Estimate If Black Canceled, Test credited >60 mL/min/1.7m2 [facility] Comment: Unsatisfactory specimen - hemolyzed [facility] [place] Calcium Canceled, Test credited 8.5 - 10.4 mg/dL [facility] Comment: Unsatisfactory specimen - hemolyzed [facility] [place] Anion Gap Canceled, Test credited 6 - 17 mmol/L [place] SYS Comment: Unsatisfactory specimen - hemolyzed [facility] [place] Specimen Anatomical Collection Method Collection Time Receive d Time (Source) Location / / Volume Laterality 04/06/2008 7:10 PM 8 6:55 CDT PM CDT Delta Bhat MD LAB - BLOOD ORDERABLES Performing Organization Address City/State/ZIP Code Phon e Number MIS[place] (ABNORMAL) Routine UA with microscopic (04/06/2008 7:00 PM CDT) Component Value Ref Test Analysis Performed At Patholo gist Range Method Time Signature Source Unspecified [facility] Urine Color Urine Yellow [facility] Appearance Urine Slightly Cloudy [facility] Glucose Urine Negative NEG [facility] mg/dL Bilirubin Urine Negative NEG [facility] Ketones Urine Negative NEG [facility] mg/dL Specific [place] 1.014 1.003 - MIS[facility] Urine 1.035 Blood Urine Large (A) NEG [facility] pH Urine 5.5 5.0 - MIS[place] 7.0 pH Protein Albumin 10 (A) NEG [place] Urine mg/dL Urobilinogen Normal 0.0 - [place] mg/dL 2.0 mg/dL Nitrite Urine Negative NEG [place] Leukocyte Trace (A) NEG [place] Esterase Urine WBC Urine 11 (H) 0 - 2 [place] /HPF RBC Urine >182 (H) 0 - 2 [place] /HPF Squamous 2 (H) 0 - 1 [place] Epithelial /HPF /HPF Urine Specimen Anatomical Collection Method Collection Time Receive d Time (Source) Location / / Volume Laterality 04/06/2008 7:00 PM 8 6:55 CDT PM CDT Delta Bhat MD LAB - URINE ORDERABLES Performing Organization Address City/State/ZIP Code Phon e Number MIS[place] HCG qualitative urine (04/06/2008 7:00 PM CDT) P athologist Signature HCG Qual Urine Negative NEG [place] Specimen Anatomical Collection Method Collection Time Receive d Time (Source) Location / / Volume Laterality 04/06/2008 7:00 PM 8 6:55 CDT PM CDT Delta Bhat MD LAB - URINE ORDERABLES Performing Organization Address City/State/ZIP Code Phon e Number [place] Urine culture (04/06/2008 7:00 PM CDT) [facility] Method Time Signature Specimen Unspecified [facility] Description Urine Culture Micro No growth [facility] Micro Report FINAL [facility] Status 04/08/2008 Specimen Anatomical Collection Method Collection Time Receive d Time (Source) Location / / Volume Laterality 04/06/2008 7:00 PM 8 6:55 CDT PM CDT Delta Bhat MD LAB - MICRO GENERAL OSBALDO JOSEPH Performing Organization Address City/State/ZIP Code Phon e Number MIS[place] documented in this encounter Visit Diagnoses Not on filedocumented in this encounter Care Teams Material Attendant Relationship Specialty Start Date End Date Melvin Palacios MD PCP - General 06/22/99 09/20/10 [address] [id number] documented as of this encounter
--- OUTSIDE RECORDS SUMMARY | 2022-04-02 12:48 | XMS_ITS | Encounter Summary ---
:1975 Author Organization [facility] Address [address] [place] [address] Care Team Providers Name Role Phone Melvin Palacios MD Primary Care Provider Reason for Visit Reason Comments Urinary Problem Encounter Details Date Type Department Care Team Description 03/10/[address] [facility] [place], UTI (Urina ry Tract Infection) (Primary Dx); [facility] [place] [facility] [address] [place], [place] S[place] [id number] Social History Tobacco Use Types Packs/Day Years Used Date Smoking Tobacco: Former Alcohol Use Standard Drinks/Week Comments Yes 0 (1 standard drink = 0.6 oz pure alcoho l) social Sex Assigned at Date Recorded Not on file documented as of this encounter Last Filed Vital Signs Vital Sign Reading Time Taken Comments Blood Pressure 110/70 03/10/2008 11:15 AM CDT Pulse 80 03/10/2008 11:15 AM CDT Temperature 36.9 ??C (98.5 ??F) 03/10/2008 11:15 AM CDT Respiratory Rate - - Oxygen Saturation - - Inhaled Oxygen Concentration - - Weight - - Height - - Body Mass Index - - documented in this encounter Progress Notes Mayela Reese - 03/15/2008 3:34 PM CDT Addended by: MAYELA REESE on: 03/15/2008 3:34:26 PM Modules accepted: Orders, Medications Librado Yip - 03/10/2008 8:15 AM CDT SUBJECTIVE: Dariana Osman is a 32 year old female who presents today for a possible UTI. Symptoms:dysuria, frequency, burning, nausea and gross hematuria Onset of symptoms: 2 ago with mild dysuria, today sudden onset with all other symptoms Severity: severe. Discharge present?: yesterday Hematuria?: yes just this am. LMP: No LMP recorded. No fever, chills. No back pain. This patient does not have a history of urinary tract infections. Patient denies long duration, rigors, flank pain, temperature > 101 degrees F. and Vomiting, significant nausea or diarrhea Patient agrees to chlamydia testing N/A -- History Sexual Activity ??? Sexually Active: Yes -- Male partner(s) ??? Control/ Protection: Surgical had vasectomy OBJECTIVE: BP 110/70 Pulse 80 Temp (Src) 98.5 ??F (36.9 ??C) (Oral) GENERAL APPEARANCE: tired, tearful RESP: lungs clear to auscultation - no rales, rhonchi or wheezes CV: regular rates and rhythm, normal S1 S2, no murmur noted ABDOMEN: soft, nontender, no HSM or masses and bowel sounds normal BACK: No CVA tenderness SKIN: no suspicious lesions or rashes UA indicates infection ASSESSMENT/PLAN: 599.0C UTI (Urinary Tract Infection) (primary encounter diagnosis) Comment: Plan: ROCEPHIN 1 GM IJ SOLR, PYRIDIUM 200 MG OR TABS Rocephin for quickest relief. Push fluids. 599.70F Hematuria Comment: Plan: UA MICRO IF POSITIVE, CULTURE, URINE (MISYS), MICRO EXAM-URINE documented in this encounter Plan of Treatment Not on filedocumented as of this encounter Procedures Procedure Name Priority Date/Time Associated Diagnosis Comme nts HCL CULTURE, URINE Routine 03/10/2008 8:10 AM Hematuria Res ults for this (MISYS) CDT procedure are i n the results section. HCL UA MICRO IF Routine 03/10/2008 8:10 AM Hematuria Result s for this POSITIVE CDT procedure are i n the results section. CL AFF MICRO Routine 03/10/2008 8:10 AM Hematuria Results f or this EXAM-URINE CDT procedure are i n the results section. documented in this encounter Results (ABNORMAL) MICRO EXAM-URINE (03/10/2008 8:10 AM CDT) [facility] Method Time Signature WBC Urine >100 (A) 0 - 2 [place] /HPF [facility] RBC Urine >100 (A) 0 - 2 [place] /HPF [facility] Squamous EPI Few FEW /LPF [facility] Bacteria Urine Many (A) NEG /HPF [facility] Mucous Urine Present (A) NEG /LPF [facility] Specimen Anatomical Collection Method Collection Time Receive d Time (Source) Location / / Volume Laterality 03/10/2008 8:10 AM 8 8:12 CDT AM CDT Aleksandra Jimenez PA-C LABORATORY Performing Organization Address City/State/[place] [address] [facility] CULTURE, URINE (MISYS) (03/10/2008 8:10 AM CDT) Component Value Ref Test Analysis Performed At [facility] Range Method Time Signature Specimen Midstream [facility] Culture Micro 50 to 100,000 [place] colonies/mL [facility] coli Report status FINAL [place] 03/12/2008 [facility] Specimen Anatomical Collection Method Collection Time Receive d Time (Source) Location / / Volume Laterality 03/10/2008 8:10 AM 8 8:12 CDT AM CDT Organism Antibiotic Method Susceptibility 50 to 100,000 colonies/ml Amoxicillin/Clav 16 In termediate escherichia coli (kirsten) 50 to 100,000 colonies/ml Ampicillin >=32 R esistant escherichia coli (kirsetn) 50 to 100,000 colonies/ml Cefazolin <=4 [place] sceptible escherichia coli (kirsten) 50 to 100,000 colonies/ml Ceftriaxone <=1 [place] sceptible escherichia coli (kirsten) 50 to 100,000 colonies/ml Cefuroxime Axetil 4 [place] sceptible escherichia coli (kirsten) 50 to 100,000 colonies/ml Ciprofloxacin >=4 Re sistant escherichia coli (kirsten) 50 to 100,000 colonies/ml Gentamicin <=1 [place] sceptible escherichia coli (kirsten) 50 to 100,000 colonies/ml Levofloxacin >=8 Re sistant escherichia coli (kirsten) 50 to 100,000 colonies/ml Nitrofurantoin <=16 S usceptible escherichia coli (kirsten) 50 to 100,000 colonies/ml Ticarcillin >=128 Resistant escherichia coli (kirsten) 50 to 100,000 colonies/ml Ticarcillin/Clav 16 [place] sceptible escherichia coli (kirsten) 50 to 100,000 colonies/ml Tobramycin <=1 [place] sceptible escherichia coli (kirsten) 50 to 100,000 colonies/ml Trimethoprim/Sulfamethoxazole <=1/19 Susceptible escherichia coli (kirsten) 50 to 100,000 colonies/ml Cefotaxime Deduce d Susceptible escherichia coli (kirsten) Aleksandra Jimenez PA-C LABORATORY Performing Organization Address City/State/ZIP Code Phon e Number [facility] [address] [place] [address] [facility] (ABNORMAL) UA MICRO IF POSITIVE (03/10/2008 8:10 AM CDT) [facility] Method Time Signature Color Urine Red [facility] Appearance Urine Cloudy [facility] Glucose Urine Negative NEG mg/dL [facility] Bilirubin Urine Negative NEG [facility] Ketones Urine Trace (A) NEG mg/dL [facility] Specific [place] 1.025 1.003 - [place] Urine 1.035 [facility] Blood Urine Large (A) NEG [facility] pH Urine 5.5 5.0 - 7.0 [place] pH [facility] Protein Albumin 100 (A) NEG mg/dL [place] Urine [facility] Urobilinogen 0.2 0.2 - 1.0 [place] Urine EU/dL [facility] Nitrite Urine Positive (A) NEG [facility] Leukocyte Small (A) NEG [place] Esterase Urine [facility] Source Midstream [place] Urine [facility] Specimen Anatomical Collection Method Collection Time Receive d Time (Source) Location / / Volume Laterality 03/10/2008 8:10 AM 8:12 CDT AM CDT Aleksandra Jimenez PA-C LABORATORY Performing Organization Address City/State/ZIP Code Phon e Number [facility] [place] [address] [facility] documented in this encounter Visit Diagnoses Diagnosis UTI (urinary tract infection) - Primary Urinary tract infection, site not specif ied Hematuria Hematuria, unspecified documented in this encounter Care Teams Radiator Cleaner Relationship Specialty Start Date End Date Melvin Palacios MD PCP - General 06/22/99 09/20/10 [address] [id number] documented as of this encounter
--- OUTSIDE RECORDS SUMMARY | 2022-04-02 12:48 | XMS_ITS | Encounter Summary ---
:1975 Author Organization [facility] Address [address] [place] [address]. [place] [address] Care Team Providers Name Role Phone Melvin Palacios MD Primary Care Provider Encounter Details Date Type Department Care Team Description 03/17/2008 Telephone [facility] [phone] [place] [address] (Wo rk) Social History Tobacco Use Types Packs/Day Years Used Date Smoking Tobacco: Former Alcohol Use Standard Drinks/Week Comments Yes 0 (1 standard drink = 0.6 oz pure alcoho l) social Sex Assigned at Date Recorded Not on file documented as of this encounter Miscellaneous Notes Telephone Encounter - Divine Coreas - 03/17/2008 2:40 PM CDT Pt calling, requesting copies of lab results. Divine Coreas CMA documented in this encounter Plan of Treatment Not on filedocumented as of this encounter Visit Diagnoses Not on filedocumented in this encounter Care Teams Forgeman Helper Relationship Specialty Start Date End Date Melvin Palacios MD PCP - General 06/22/99 09/20/10 [address] [id number] documented as of this encounter
--- OUTSIDE RECORDS SUMMARY | 2022-04-02 12:48 | XMS_ITS | Encounter Summary ---
:1975 Author Organization [facility] Address [address] [place] [address]. [place] [address] Care Team Providers Name Role Phone Melvin Palacios MD Primary Care Provider Reason for Visit Reason Comments Medication Request Depression Encounter Details Date Type Department Care Team Description 05/19/2008 Office Visit [facility] [place] DEPRESSYobani VE DISORDER NEC; [facility] [place] ANXIETY STATE NOS; [address] [facility] [address] [facility] [place] [address] [phone] Social History Tobacco Use Types Packs/Day Years Used Date Smoking Tobacco: Former Alcohol Use Standard Drinks/Week Comments Yes 0 (1 standard drink = 0.6 oz pure alcoho l) social Sex Assigned at Date Recorded Not on file documented as of this encounter Last Filed Vital Signs Vital Sign Reading Time Taken Comments Blood Pressure 110/66 05/19/2008 3:45 PM KETTLE FRY COOK OPERATOR Pulse 64 05/19/2008 3:45 PM KETTLE FRY COOK OPERATOR Temperature - - Respiratory Rate - - Oxygen Saturation - - Inhaled Oxygen Concentration - - Weight 80.3 kg (177 lb) 05/19/2008 3:45 PM KETTLE FRY COOK OPERATOR Height - - Body Mass Index 28.14 01/26/2008 9:45 AM CDT documented in this encounter Progress Notes Tobi Beltran - 05/19/2008 7:08 PM CST Dariana Osman presents to clinic today for evaluation of Depression and anxiety. We switched Dariana from Lexapro 30mg to Celexa 40mg approximately 3 months ago. Her mood was initially good but she feels that her depression has been worsening recently. She mostly notes middle insomnia despite Lunesta, lack of interest in social activities and low energy. Denies any thoughts of self harm. Denies any suicidal or homicidal thoughts. Denies any manic behavior or other unusual behaviors since starting Celexa medication. She has not set up apts for psychiatry or counseling yet. Dariana has NO hx of IP psychiatric [...] SE), Effexor (I believe she stated headaches). Pt has a good support network. She has access to family/friends who can help with children if needed. OBJECTIVE: BP 110/66 Pulse 64 Wt 177 lb (80.287 kg) Today's (05-19-08) PHQ-9 score on record= 13 (8-19-08) PHQ-9 score on record= 9 (10/15/07) PHQ-9 score on record= 15 (4-24-08) PHQ-9 score= 18 GENERAL: Very pleasant, comfortable and generally well appearing. PSYCH: Mood is good. Thought content logical, organized and appropriate throughout the interview today. ASSESSMENT/PLAN: 311 DEPRESSIVE DISORDER NEC Plan: CELEXA 40 MG OR TABS Pt agrees to set up apts for counseling and psychiatry med mgmt. Several referral options are givenfor both today. She will continue with Celexa 40 mg daily for now. We will try Trazodone for insomnia. Potential adverse SE were discussed in detail. F/u STAT if any increased anxiety/depression or if any other unusual mood changes occur following medication start. 300.00 ANXIETY STATE NOS Plan: CELEXA 40 MG OR TABS As per above. 780.52A Insomnia Plan: TRAZODONE HCL 50 MG OR TABS As per above. LE FRY COOK OPERATOR documented in this encounter Nursing Notes 05/19/2008 3:45 PM CST >> NIURKA ARANA [facility] May 19, 2008 3:51 PM Patient presents with: Medication Request Depression Initial BP 110/66 Pulse 64 Wt 177 lb (80.287 kg) Estimated Body mass index is 28.14 kg/(m^2) as calculated from: Height of 5' 6.5 (1.689 m) as of 01/26/08 Weight of 177 lb (80.287 kg) as of this encounter. BP completed using cuff size everotn-romelia Arana CMA documented in this encounter Plan of Treatment Not on filedocumented as of this encounter Visit Diagnoses Diagnosis DEPRESSIVE DISORDER NEC Depressive disorder, not elsewhere class ified ANXIETY STATE NOS Anxiety state, unspecified Insomnia Insomnia, unspecified documented in this encounter Care Teams Basin Cleaner Relationship Specialty Start Date End Date Melvin Palacios MD PCP - General 06/22/99 09/20/10 [address] [id number] documented as of this encounter
--- OUTSIDE RECORDS SUMMARY | 2022-04-02 12:48 | XMS_ITS | Encounter Summary ---
:1975 Author Organization [facility] Address [address] [place] [address] Care Team Providers Name Role Phone Melvin Palacios MD Primary Care Provider Reason for Visit Reason Onset Date Comments Refill Request 04/25/2008 Encounter Details Date Type Department Care Team Description 04/25/2008 Refill [facility] Gurmeet Jimenez th, Refill Request [place] [id number] [facility], [facility] [address] [place] [address] [place]ON[place]H [phone] (Wo rk) Social History Tobacco Use Types Packs/Day Years Used Date Smoking Tobacco: Former Alcohol Use Standard Drinks/Week Comments Yes 0 (1 standard drink = 0.6 oz pure alcoho l) social Sex Assigned at Date Recorded Not on file documented as of this encounter Plan of Treatment Not on filedocumented as of this encounter Visit Diagnoses Diagnosis Yeast infection of the vagina - Primary Candidiasis of vulva and vagina documented in this encounter Care Teams Analyst Relationship Specialty Start Date End Date Melvin Palacios MD PCP - General 06/22/99 09/20/10 [address] [id number] documented as of this encounter
--- OUTSIDE RECORDS SUMMARY | 2022-04-02 12:48 | XMS_ITS | Encounter Summary ---
:1975 Author Organization [facility] Address [address] [place] [address] Care Team Providers Name Role Phone Melvin Palacios MD Primary Care Provider Encounter Details Date Type Department Care Team Description 04/13/[address] [facility] zoran Marie MD [facility] EMERGENCY EVELYNY CHRISTOPHER PA Results [address] [place], [place] [address] (Wo rk) Social History [...] Priority Date/Time Associated Diagnosis Comme nts US Routine 04/13/2008 7:19 AM Results f or this RETROPERITONEAL, DEPUTY GENERAL COUNSEL procedure a re in COMPLETE the results section. documented in this encounter Results SONO RETROPERITONEAL (04/13/2008 7:19 AM DEPUTY GENERAL COUNSEL) Anatomical Region Laterality Modality Other Specimen (Source) Anatomical Collection Method Collection Time Re ceived Time Location / / Volume Laterality 04/13/2008 7:19 AM DEPUTY GENERAL COUNSEL Impressions 04/13/2008 7:29 AM DEPUTY GENERAL COUNSEL US RETROPERITONEAL COMP Apr 13, 2008 7:19 :00 AM HISTORY: Left flank pain. Status post li thotripsy and stent removal COMPARISON: CT 04/06/2008 FINDINGS: Right kidney appears normal 9. 9 cm in length without hydronephrosis or shadowing renal calcul i. The left kidney is 11.1 cm in length. Th ere is moderate left hydronephrosis and the left ureter is di lated and visualized in the midabdomen. The distal ureter could not be visualized. There are small rounded echogenic foci which are nonshad owing in many of the calyces. Appearance would raise the question of r enal papillary necrosis. Bladder is poorly distended but grossly normal. IMPRESSION: 1. Moderate left hydronephrosis and visu alized portions of proximal and midleft ureter are also dilated. 2. Echogenic foci in the calyces as desc ribed above. Etiology is uncertain but would ??raise the question of renal papillary necrosis. Donal Marie MD [employer] documented in this encounter Visit Diagnoses Not on filedocumented in this encounter Care Teams Ticker Maintainer Relationship Specialty Start Date End Date Melvin Palacios MD PCP - General 06/22/99 09/20/10 [address] [id number] documented as of this encounter
--- OUTSIDE RECORDS SUMMARY | 2022-04-02 12:48 | XMS_ITS | Encounter Summary ---
:1975 Author Organization [place] Address [address] [place] [address] Care Team Providers Name Role Phone Melvin Palacios MD Primary Care Provider Encounter Details Date Type Department Care Team Description 04/13/2008 Admission H&P M [facility] William Black, (Security Control Assessor) [facility] Results [facility] [id number] [address] (Wo rk) Social History Tobacco Use Types Packs/Day Years Used Date Smoking Tobacco: Former Alcohol Use Standard Drinks/Week Comments Yes 0 (1 standard drink = 0.6 oz pure alcoho l) social Sex Assigned at Date Recorded Not on file documented as of this encounter Progress Notes William Black - 04/23/2008 8:21 AM STORAGE ENGINEER FINAL Dariana Valdez is a 32-year-old female admitted to the hospital with left flank pain. She has a history of a left ureteral stone and stricture. She underwent cystoscopy, balloon dilation of the ureteral stricture, holmium laser lithotripsy of the stone, and a retrograde pyelogram and left stent placement with Dr. Black on 04/08/08. She then saw Dr. Black in the office on 04/11/08 for stent removal. The patient came to the Emergency Department with left flank pain. She was found to have moderate left hydronephrosis on ultrasound. She was admitted for pain control. She reports that the pain is in her left flank and it is intermittently sharp and radiates into her abdomen and groin. She has had nausea and vomiting. She has also had hematuria. She denies any dysuria and reports that she is voidingwell. PAST MEDICAL HISTORY: Urinary tract infections, renal stones, depression, migraines. MEDICATIONS: 1. Toradol 2. Levaquin, 3. Zofran 4. Dilaudid 5. Celexa. ALLERGIES: IVP dye and codeine. REVIEW OF SYSTEMS: The patient denies any chest pain, palpitations, wheezing, coughing, or constipation. She does report that she has some lightheadedness with the pain medication. LABORATORY DATA: White blood cell count 9.7, hemoglobin 14.1, sodium 141, potassium 3.4, creatinine0.97. Urinalysis is positive for blood and leukocytes. Renal ultrasound shows moderate left hydronephrosis with proximal and mid ureteral dilation. PHYSICAL EXAMINATION: VITAL SIGNS: Temperature 97.9, pulse 69, respirations 16, blood pressure 124/67. GENERAL: The patient is lying in bed. HEART: Regular rate and rhythm, no murmurs. LUNGS: Clear to auscultation bilaterally. ABDOMEN: Positive bowel sounds, soft, nontender. Left CVA tenderness. : No groin tenderness. EXTREMITIES: No lower extremity tenderness or edema. ASSESSMENT/PLAN: Left flank pain, left hydronephrosis, likely due to ureteral spasm. 1. Will have the patient admitted for pain control. This patient was reviewed with Dr. Black and will be admitted to his service. Electronically signed on 04/23/2008 08:20 by WILLIAM BLACK MD As dictated by EFREN SMITH PA-C MT: alise Name: DARIANA VALDEZ Account: [id number] : 1975 Admitted: [id number] Document: [id number] AGE ENGINEER documented in this encounter Plan of Treatment Not on filedocumented as of this encounter Visit Diagnoses Not on filedocumented in this encounter Care Teams Research Group Director Relationship Specialty Start Date End Date Melvin Palacios MD PCP - General 06/22/99 09/20/10 [address] [id number] documented as of this encounter
--- OUTSIDE RECORDS SUMMARY | 2022-04-02 12:48 | XMS_ITS | Encounter Summary ---
:1975 Author Organization [place] Address [address] [place] [address] Care Team Providers Name Role Phone Melvin Palacios MD Primary Care Provider Encounter Details Date Type Department Care Team Description 04/14/2008 Historic Notes INTERFACED REPORT Interface, Transcript on, Social History Tobacco Use Types Packs/Day Years Used Date Smoking Tobacco: Former Alcohol Use Standard Drinks/Week Comments Yes 0 (1 standard drink = 0.6 oz pure alcoho l) social Sex Assigned at Date Recorded Not on file documented as of this encounter Progress Notes Interface, Combat Systems Engineer - 08/26/2010 2:04 PM CDT Patient Status - Diagnosis/Procedure Nausea/Vomitting and Flank Pain - Physical status Stable (s/s of potential complications absent or manageable) Discharge Planning - Discharge From: [facility] - Patient Care Unit: [facility] 66 - U - Discharge To: Home/Alternative home - Phone number after [phone] discharge: - Method of discharge: Wheel Chair - Transportation: Private Discharge Information - Discharge information Discharge instructions reviewed with pt/family/so - Accompanied by Spouse - Mode of Travel Wheelchair Medications and Prescriptions - Medications and Prescriptions given to patient Prescriptions Special Care Needs and Instructions - Diet Instructions: Resume your home diet - Activity Resume normal activities slowly as tolerated Instructions: - Report temp if 101 degrees F greater than: - Symptoms/Problems to Increasing pain, nausea and/or vomitting look for at home- call the physician about: - Who patient should Dr Gamez call: - [facility] [phone] patient should call: Follow Up Care - Physician/clinician Dr Gamez name: - - When to see as scheduled physician/clinician: MARY Sellers (RN)[Signed 13:30] Authored: Patient Status, Discharge Planning, Discharge Information, Medications and Prescriptions, Special Care Needs and Instructions, Follow Up Care documented in this encounter Plan of Treatment Not on filedocumented as of this encounter Visit Diagnoses Not on filedocumented in this encounter Care Teams Nailing Machine Operator Relationship Specialty Start Date End Date Melvin Palacios MD PCP - General 06/22/99 09/20/10 [address] [id number] documented as of this encounter
--- OUTSIDE RECORDS SUMMARY | 2022-04-02 12:48 | XMS_ITS | Encounter Summary ---
:1975 Author Organization [place] Address Formerly [facility] [place] [address] Care Team Providers Name Role Phone Melvin Palacios MD Primary Care Provider Reason for Visit Reason Onset Date Comments UTI 04/06/2008 Encounter Details Date Type Department Care Team Description 04/06/2008 Telephone [facility] [place], MEREDITH [place] [address] [address] [facility], [address] [facility] [address] [place] [address] [place] [address] [phone] Social History Tobacco Use Types Packs/Day Years Used Date Smoking Tobacco: Former Alcohol Use Standard Drinks/Week Comments Yes 0 (1 standard drink = 0.6 oz pure alcoho l) social Sex Assigned at Date Recorded Not on file documented as of this encounter Miscellaneous Notes Telephone Encounter - Martin Hauser - 04/06/2008 12:09 PM CDT Will use Cipro 500mg BID x [address] MD [facility] Telephone Encounter - Melissa Leal - 04/06/2008 12:07 PM CDT Patient was wondering if she could please get a perscription for an antibiotic for hematuria. Melissa Leal CMA documented in this encounter Plan of Treatment Not on filedocumented as of this encounter Visit Diagnoses Diagnosis UTI (urinary tract infection) - Primary Urinary tract infection, site not specif ied documented in this encounter Care Teams Rib Knitter Relationship Specialty Start Date End Date Melvin Palacios MD PCP - General 06/22/99 09/20/10 [address] [id number] documented as of this encounter
--- OUTSIDE RECORDS SUMMARY | 2022-04-02 12:48 | XMS_ITS | Encounter Summary ---
:1975 Author Organization [place] Address [address] [place] [address] Care Team Providers Name Role Phone Melvin Palacios MD Primary Care Provider Encounter Details Date Type Department Care Team Description 04/09/2008 Historic Notes INTERFACED REPORT Interface, Transcript MD cyril Social History Tobacco Use Types Packs/Day Years Used Date Smoking Tobacco: Former Alcohol Use Standard Drinks/Week Comments Yes 0 (1 standard drink = 0.6 oz pure alcoho l) social Sex Assigned at Date Recorded Not on file documented as of this encounter Progress Notes Interface, Drop Wire Aliner - 08/26/2010 2:19 PM CDT Other Discharge Education, Materials, and Instructions - Other Education, same day surgery discharge instructions sheet, Materials, and stent and cystoscopy discharge instructions and Instructions: care sheet. Signatures DA LEWIS (RN)[Signed 10:56] Authored: Other Discharge Education, Materials, and Instructions documented in this encounter Plan of Treatment Not on filedocumented as of this encounter Visit Diagnoses Not on filedocumented in this encounter Care Teams Supervisor Asbestos Removal Relationship Specialty Start Date End Date Melvin Palacios MD PCP - General 06/22/99 09/20/10 [address] [id number] documented as of this encounter
--- OUTSIDE RECORDS SUMMARY | 2022-04-02 12:48 | XMS_ITS | Encounter Summary ---
:1975 Author Organization [place] Address [address] [place] [address] Care Team Providers Name Role Phone Melvin Palacios MD Primary Care Provider Encounter Details Date Type Department Care Team Description 06/28/2008 Office Visit [facility] Barbara, UTI ([facility] [place] Infection) (Primary Dx) [facility] [address] [place], [place] [address] Social History Tobacco Use Types Packs/Day Years Used Date Smoking Tobacco: Former Alcohol Use Standard Drinks/Week Comments Yes 0 (1 standard drink = 0.6 oz pure alcoho l) social Sex Assigned at Date Recorded Not on file documented as of this encounter Progress Notes Aleksandra Jimenez - 06/28/2008 12:10 PM CST SUBJECTIVE: Dariana Osman is a 32 year old female who complains of urinary frequency, urgencyand dysuria x 1 days, without flank pain, fever, chills. Previous kidney problems have resolved, still occas mild pain. OBJECTIVE: Appears well, in no apparent distress. Vital signs are normal. Heart RRR. Lungs CTA. The abdomen is soft with mild suprapubic tenderness, no guarding, mass, rebound or organomegaly. No CVA tenderness or inguinal adenopathy noted. Urine dipstick shows positive for leukocytes. Micro exam: 50-1 00 WBC's per HPF and greater then 100 RBC's per HPF. ASSESSMENT: UTI uncomplicated without evidence of pyelonephritis PLAN: Treatment per orders - also push fluids, may use Pyridium OTC prn. Call or return to clinic prn if these symptoms worsen or fail to improve as anticipated. SE INSTRUCTOR documented in this encounter Plan of Treatment Not on filedocumented as of this encounter Procedures Procedure Name Priority Date/Time Associated Diagnosis Comme nts HCL CULTURE, URINE Routine 06/28/2008 9:52 AM UTI (Urinary Tra ct Results for this COURSE INSTRUCTOR Infection) procedure are i n the results section. HCL UA MICRO IF Routine 06/28/2008 9:43 AM UTI (Urinary Tract Results for this POSITIVE COURSE INSTRUCTOR Infection) procedure are i n the results section. CL AFF MICRO Routine 06/28/2008 9:43 AM UTI (Urinary Tract Res ults for this EXAM-URINE COURSE INSTRUCTOR Infection) procedure are i n the results section. documented in this encounter Results URINE CULTURE (06/28/2008 9:52 AM COURSE INSTRUCTOR) [facility] Method Time Signature Specimen Midstream [place] Description Urine [facility] Culture Micro No growth [facility] Report status FINAL [place] 06/30/2008 [facility] Specimen Anatomical Collection Method Collection Time Receive d Time (Source) Location / / Volume Laterality 06/28/2008 9:52 AM 9 9:54 COURSE INSTRUCTOR AM COURSE INSTRUCTOR Aleksandra Jimenez PA-C LABORATORY Performing Organization Address City/State/ZIP Code Phon e Number M [facility] [address] [place] [address] HOSPITAL [facility] (ABNORMAL) MICRO EXAM-URINE (06/28/2008 9:43 AM COURSE INSTRUCTOR) [facility] Method Time Signature WBC Urine 50-100 (A) 0 - 2 [place] /HPF [facility] RBC Urine >100 (A) 0 - 2 [place] /HPF [facility] Squamous EPI Few FEW /LPF [facility] Bacteria Urine Few (A) NEG /HPF [facility] Mucous Urine Present (A) NEG /LPF [facility] Specimen Anatomical Collection Method Collection Time Receive d Time (Source) Location / / Volume Laterality 06/28/2008 9:43 AM 9 9:45 COURSE INSTRUCTOR AM COURSE INSTRUCTOR Aleksandra Jimenez PA-C LABORATORY Performing Organization Address City/[facility] Code Phon e Number [facility] [place] [address] [facility] (ABNORMAL) UA MICRO IF POSITIVE (06/28/2008 9:43 AM COURSE INSTRUCTOR) [facility] Method Time Signature Color Urine Yellow [facility] Appearance Urine Cloudy [facility] Glucose Urine Negative NEG mg/dL [facility] Bilirubin Urine Negative NEG [facility] Ketones Urine Negative NEG mg/dL [facility] Specific [place] 1.025 1.003 - [place] Urine 1.035 [facility] Blood Urine Large (A) NEG [facility] pH Urine 5.0 5.0 - 7.0 [place] pH [facility] Protein Albumin Trace (A) NEG mg/dL [facility] Urobilinogen 0.2 0.2 - 1.0 [place] Urine EU/dL [facility] Nitrite Urine Negative NEG [facility] Leukocyte Moderate (A) NEG [place] Esterase Urine [facility] Source Midstream [facility] Specimen Anatomical Collection Method Collection Time Receive d Time (Source) Location / / Volume Laterality 06/28/2008 9:43 AM 9 9:45 COURSE INSTRUCTOR AM COURSE INSTRUCTOR Aleksandra Jimenez PA-C LABORATORY Performing Organization Address City/[facility] Code Phon e Number [facility] [place] [address] [facility] documented in this encounter Visit Diagnoses Diagnosis UTI (urinary tract infection) - Primary Urinary tract infection, site not specif ied documented in this encounter Care Teams Production Manufacturing Worker Relationship Specialty Start Date End Date Melvin Palacios MD PCP - General 06/22/99 09/20/10 [address] [id number] documented as of this encounter
--- OUTSIDE RECORDS SUMMARY | 2022-04-02 12:48 | XMS_ITS | Encounter Summary ---
:1975 Author Organization [place] Address [address] [place] [address] Care Team Providers Name Role Phone Melvin Palacios MD Primary Care Provider Encounter Details Date Type Department Care Team Description 04/08/2008 Historic Notes INTERFACED REPORT Interface, Transcript onMD Social History Tobacco Use Types Packs/Day Years Used Date Smoking Tobacco: Former Alcohol Use Standard Drinks/Week Comments Yes 0 (1 standard drink = 0.6 oz pure alcoho l) social Sex Assigned at Date Recorded Not on file documented as of this encounter Progress Notes Interface, Fishing Vessel Operator - 08/26/2010 2:20 PM CDT General Information - How to be addressed Dariana - match up person to Jose Osman () notify: - Phone 1: [phone] - Patient's Spoken Language, Moroccan communication style Advance Directive - Do you have a Advance No Health Care Directive? - Can patient name a Yes Surrogate Decision Maker? (Not legally binding) - Surrogate Name: Jose Osman () - Would you like to No receive information about Advanced Directives? Health and Illness History - Reason for surgery admission/chief complaint as stated by patient Signatures NATALIA MCPHERSON (RN)[Signed 20:55] Authored: General Information, Advance Directive, Health and Illness History documented in this encounter Plan of Treatment Not on filedocumented as of this encounter Visit Diagnoses Not on filedocumented in this encounter Care Teams Cytology Manager Relationship Specialty Start Date End Date Melvin Palacios MD PCP - General 06/22/99 09/20/10 [address] [id number] documented as of this encounter
--- OUTSIDE RECORDS SUMMARY | 2022-04-02 12:48 | XMS_ITS | Encounter Summary ---
:1975 Author Organization [place] Address [address] [facility] [place] [address] Care Team Providers Name Role Phone Melvin Palacios MD Primary Care Provider Encounter Details Date Type Department Care Team Description 04/06/[address] [facility] Delta Coello [facility] MD Negro Results Emergency Physic ians N[place] [address] [place], [place] [address] (Wo rk) Social History Tobacco Use Types Packs/Day Years Used Date Smoking Tobacco: Former Alcohol Use Standard Drinks/Week Comments Yes 0 (1 standard drink = 0.6 oz pure alcoho l) social Sex Assigned at Date Recorded Not on file documented as of this encounter Progress Notes Delta Coello - 05/02/2008 5:30 AM SKI INSTRUCTOR FINAL CHIEF COMPLAINT: Abdominal pain. HISTORY OF PRESENT ILLNESS: Ms. Gasper Valdez is a 32-year-old female who comes in today accompanied by her via private transportation for evaluation of back and abdominal pain. The patient was diagnosed with a kidney stone via CT on 03/17. The stone was in the left renal pelvis. She had a UTI at that time that was treated with antibiotics. She improved with this. She was supposed to see Dr. Gamez to have this kidney stone evaluated potentially with lithotripsy. Nevertheless, her symptomsresolved, but recur on Friday she comes in today on Friday, 4 days later. Her pain is in the leftflank associated with urgency, frequency and hematuria, no dysuria, no fevers, chills, myalgias, night sweats. No nausea, vomiting, diarrhea. This feels like her previous. She otherwise feels well. No cough, chest pain, shortness of breath. Her pain is a 6/10. PAST MEDICAL HISTORY: 1. Depression. 2. Anxiety. MEDICATIONS: Celexa, Lunesta p.r.n. ALLERGIES: NONE. SOCIAL HISTORY: She drinks but does not smoke or use drugs. She is here with her . FAMILY HISTORY: Negative. REVIEW OF SYSTEMS: As per HPI, all other systems negative. PHYSICAL EXAMINATION: GENERAL: Young, thin, female who appears in pain . VITAL SIGNS: Blood pressure 139/86, pulse 76, respirations 16, temperature 98.0, satting 97% on room air. HEENT: Normocephalic, atraumatic. Pupils are equal and reactive, sclerae anicteric, conjunctivae pink. Posterior oropharynx was clear, mucous membranes moist. NECK: Supple. CHEST: Clear to auscultation bilaterally. CARDIAC: Regular rate and rhythm without murmurs, rubs or gallops. ABDOMEN: Soft, nontender, nondistended without rebound, tenderness or guarding. BACK: She had mild tenderness to deep palpation in the left costophrenic margin. EXTREMITIES: Atraumatic without cyanosis, clubbing or edema. NEUROLOGIC: Intact with 5/5 strength LABS AND DIAGNOSTICS: Urinalysis showed greater than 182 red cells, 11 white cells, trace leukocyteesterase, large blood, negative nitrates, 2 squamous epithelial cells, otherwise normal. Urine culture pending. White count 7.6, hemoglobin 12.8, normal differential. CT abdomen and pelvis, renal stone protocol, did show a 5-6 mm stone that was previously in the left kidney and was located in the mid to distal left ureter without hydronephrosis. EMERGENCY DEPARTMENT COURSE: The patient was uncomfortable. She was able to get a hold of her who came in to drive her home. She was given aliquots of morphine 4 mg at a time x3. She is more comfortable. She was given Zofran for nausea, a liter of normal saline and 30 mg of Toradol. Her pain is improved. She is ambulatory. I did speak to Dr. Herrera on -call for Dr. Gamez. He has recommendedthat the patient come in tomorrow morning at 9:00 a.m. for evaluation or calling his office after 9 a.m. In the interim, if she has any worsening pain, nausea, vomiting or fevers, to come back to the emergency department. She was was given a strainer to collect the stone, taking [id number] ibuprofen 800 mg p.o. t.i.d. Flomax p.r.n. kidney stone pain Percocet. This is addicting, not to drink or driving with this and Zofran for nausea and increasing amount of p.o. fluids Differential diagnosis includes ureterolithiasis, pyelonephritis, ectopic , shingles, diverticulitis, back strain. At this point I think this represents a simple but significant urolithiasis.She should do fine as an outpatient. DIAGNOSIS: Urolithiasis. PLAN: As above. Electronically signed on 05/02/2008 05:29 by DELTA COELLO MD MT: CATERINA Name: JUAN CARLOS VALDEZ Account: [id number] : 1975 Visit Date: 04/06/2008 Document: [id number] cc: Primary Care Physician INSTRUCTOR documented in this encounter Plan of Treatment Not on filedocumented as of this encounter Visit Diagnoses Not on filedocumented in this encounter Care Teams General Practitioner Relationship Specialty Start Date End Date Melvin Palacios MD PCP - General 06/22/99 09/20/10 [address] [id number] documented as of this encounter
--- OUTSIDE RECORDS SUMMARY | 2022-04-02 12:48 | XMS_ITS | Encounter Summary ---
:1975 Author Organization [place] Address [address] [place] [address] Care Team Providers Name Role Phone Melvin Palacios MD Primary Care Provider Encounter Details Date Type Department Care Team Description 04/13/2008 Emergency room [facility] Se zoran Marie MD [facility] EMERGENCY PHY CHRISTOPHER PA Results [address] [phone] (Wo rk) Social History Tobacco Use Types Packs/Day Years Used Date Smoking Tobacco: Former Alcohol Use Standard Drinks/Week Comments Yes 0 (1 standard drink = 0.6 oz pure alcoho l) social Sex Assigned at Date Recorded Not on file documented as of this encounter Progress Notes Deandre Marie - 04/16/2008 7:26 AM REVIEW ANALYST FINAL CHIEF COMPLAINT: Left flank pain. HISTORY OF PRESENT ILLNESS: Dariana Valdez is a 32-year-old female who comes in by private vehicle for further evaluation of left flank pain. She was diagnosed with a left ureteral kidney stone on CT scan on 03/17/2008. She subsequently came to the Emergency Department on 04/06/2008 and subsequently had followup with Dr. Gamez. On 04/08/2008 she had a cystoscopy, dilatation of urethral stricture and lithotripsy followed by stent placement. The stent was removed yesterday. During this entire courseshe has continued to have left flank pain. However, this morning at about 0200 hrs the pain became much worse. She has been vomiting again. She has had no fevers. She continues to have blood in her urine. PAST MEDICAL HISTORY: 1. Kidney stone as above. 2. Depression. MEDICATIONS: Tramadol, Compazine, Tylenol. ALLERGIES: Codeine and IV dye. SOCIAL HISTORY: The patient does not smoke or use illicit drugs, does rinks alcohol occasionally, She is . REVIEW OF SYSTEMS: See HPI. All others are negative. PHYSICAL EXAMINATION: VITAL SIGNS: Afebrile at 97.6, blood pressure 111/80, heart rate 58, respiratory rate 16, satting 100% on room air. GENERAL: This is a young female who is awake, alert, cooperative, appears uncomfortable, but nontoxic. HEENT: Head is atraumatic. Pupils are equal and reactive, sclerae nonicteric, conjunctivae normalin appearance. NECK: Supple, nontender. CARDIAC: Regular rate and rhythm, no murmurs, rubs or gallops appreciated. LUNGS: Clear to auscultation bilaterally. ABDOMEN: Positive bowel sounds, soft, nontender, nondistended, no rebound or guarding. BACK: Atraumatic with some left flank tenderness to palpation. EXTREMITIES: Normal. LABORATORY AND DIAGNOSTIC STUDIES: 1. White blood cell count 9.7, hemoglobin 14.1, platelet count 338, 79% neutrophils. 2. Basic metabolic panel is normal. 3. Urinalysis shows 40 ketones, 100 protein, large amount of blood, negative nitrites, moderate leukocyte esterase, greater than 182 WBC/hpf, greater than 182 RBC/hpf, 27 squamous epithelial cells andmucus present. This was a midstream urine. 4. Urine culture is pending. 5. Ultrasound of the retroperitoneum shows moderate left hydronephrosis with the visualized portions of the proximal and mid left ureter dilated and echogenic foci in the calices. EMERGENCY DEPARTMENT COURSE: The patient was seen and examined. She had an IV established, and bloods were drawn and sent. She was given morphine IV for her pain and Zofran IV for her nausea. She was also given normal saline through the IV to help rehydrate her. She had a urinalysis obtained. I proceeded to do an ultrasound as I did not want to repeat the CT scan given the number of CT scans that she has had and the fact that she had a recent CT scan and procedure. Her urinalysis clearly is a contaminated sample; however, I did give her a dose of Levaquin 500 mg IV despite that. She had a urine culture sent as well, and that is pending. PLAN: I spoke with Dr. William Gamez who agreed to admit the patient for pain control and observation. IMPRESSION: 1. Left flank pain. 2. Left hydronephrosis. 3. Status post left ureteral stent removal. Electronically signed on 04/16/2008 07:26 by DEANDRE MARIE MD MT: [id number] Name: DARIANA VALDEZ MRN: [id number] Account: [id number] : 1975 Visit Date: 04/13/2008 Document: [id number] cc: William Gamez MD [facility] EW ANALYST documented in this encounter Plan of Treatment Not on filedocumented as of this encounter Visit Diagnoses Not on filedocumented in this encounter Care Teams Water Service Supervisor Relationship Specialty Start Date End Date Melvin Palacios MD PCP - General 06/22/99 09/20/10 [address] [id number] documented as of this encounter
--- OUTSIDE RECORDS SUMMARY | 2022-04-02 12:49 | XMS_ITS | Encounter Summary ---
:1975 Author Organization [place] Address [address] [place] [address]. [place] [address] Care Team Providers Name Role Phone Melvin Palacios MD Primary Care Provider Encounter Details Date Type Department Care Team Description 01/18/2008 Office Visit [facility] without [facility] [place] PA-C Infection (Primary Dx) [facility] [address] [place], [place] [phone] Social History Tobacco Use Types Packs/Day Years Used Date Smoking Tobacco: Former Alcohol Use Standard Drinks/Week Comments Yes 0 (1 standard drink = 0.6 oz pure alcoho l) social Sex Assigned at Date Recorded Not on file documented as of this encounter Progress Notes Aleksandra Jimenez - 01/18/2008 9:41 AM CDT SUBJECTIVE: Dariana is a 32 year old female presenting with a painful black bump on heel of her right foot. Had warts treated with liquid nitrogen [address] Chapman while working here. Area became more and more painful as the evening went on, could hardly walk all weekend. Applied ice which helped. Past Medical History Diagnosis Date ??? Calculus of Kidney ??? Depressive Disorder, not Elsewhere Classified ??? Anxiety State, Unspecified Current Outpatient Rx Name Route Sig Dispense Refill ??? XANAX 0.5 MG OR TABS Oral ONE TABLET EVERY 6 HOURS NEEDED FOR ANXIETY 30 1 ??? SKELAXIN 800 MG OR TABS Oral 1 TABLET 3 TIMES DAILY prn for back pain 90 0 ??? LEXAPRO 20 MG OR TABS Oral ONE and 1/2 tablets daily 45 0 ??? PROTONIX 40 MG OR TBEC Oral ONE DAILY 20 0 ??? LEXAPRO 10 MG OR TABS Oral 2 tabs daily 60 1 YEAR ??? IMITREX 6 MG/0.5ML IJ SOLN Injection 0.5 ML 1 TIME ONLY .5 0 ??? LUNESTA 3 MG OR TABS Oral 1 TABLET AT BEDTIME [id number] EXP 10/14 10 0 Allergies Allergen Reactions ??? Codeine OBJECTIVE: Well appearing; NAD; vitals stable; Plantar aspect of rt heel with 2cm round swollen, very tender blood blister. ASSESSMENT:/PLAN: 917.2B Blister of Foot without Infection (primary encounter diagnosis) Comment: blood filled vesicle Plan: PUNCTURE DRAINAGE OF LESION Area wiped with alcohol. Vesicle punctured with 18G needle w/ immediate blood release. Slight pressure applied and drained as much of the blood as possible. Area cleaned and dressed. Advised abx ointment and clean dressings, follow up prn documented in this encounter Nursing Notes 01/18/2008 8:15 AM CDT >> RACHID STEVENSON Mon Jan 18, 2008 8:29 AM Darianasa Vishal Osman presents for denied weight. No LMP recorded. There were no vitals taken for this visit. Estimated Body mass index is 28.83 kg/(m^2) as calculated from: Height of 5' 6.25 (1.683 m) as of 10/15/07 Weight of 180 lb (81.647 kg) as of 10/27/07 BP completed using cuff size: NA (Not Taken). Rachid Stevenson MA documented in this encounter Plan of Treatment Not on filedocumented as of this encounter Procedures Procedure Name Priority Date/Time Associated Diagnosis Comme nts HC PUNCTURE ASPIRATION Routine 01/18/2008 9:33 AM CDT Blister of Foot ABSCESS/HEMATOMA/CYST without Infection documented in this encounter Visit Diagnoses Diagnosis Blister of foot without infection - Prim harpal Foot and toe(s), blister, without mentio n of infection documented in this encounter Care Teams Setter Automatic Spinning Lathe Relationship Specialty Start Date End Date Melvin Palacios MD PCP - General 06/22/99 09/20/10 [address] [id number] documented as of this encounter
--- OUTSIDE RECORDS SUMMARY | 2022-04-02 12:49 | XMS_ITS | Encounter Summary ---
:1975 Author Organization [place] Address [address] [place] [address] Care Team Providers Name Role Phone Melvin Palacios MD Primary Care Provider Reason for Visit Reason Onset Date Comments Refill Request 08/04/2007 LEXAPRO Encounter Details Date Type Department Care Team Description 08/04/2007 Refill [facility] Melvin Palacios MD Refill Request (LEXAPRO) Clinic [address] [place] [address] [phone] Social History Tobacco Use Types Packs/Day Years Used Date Smoking Tobacco: Former Alcohol Use Standard Drinks/Week Comments Yes 0 (1 standard drink = 0.6 oz pure alcoho l) social Sex Assigned at Date Recorded Not on file documented as of this encounter Miscellaneous Notes Telephone Encounter - Maricarmen Anne - 08/04/2007 2:53 PM CST Last OV:06-03-07 Reason:anxiety Provider:YESENIA Last depression OV: 03-18-07 Ok'd PSO Maricarmen Geller, RN, BSN OSOFT DYNAMICS DEVELOPER Telephone Encounter - Venita Dowell - 08/04/2007 2:23 PM CST LAST FILL DATE: 06/24/2007 LAST QTY: 30 VENITA FVCR RX OSOFT DYNAMICS DEVELOPER documented in this encounter Plan of Treatment Not on filedocumented as of this encounter Visit Diagnoses Diagnosis Depressive disorder, not elsewhere class ified Generalized anxiety disorder documented in this encounter Care Teams Branding Machine Operator Relationship Specialty Start Date End Date Melvin Palacios MD PCP - General 06/22/99 09/20/10 [address] [id number] documented as of this encounter
--- OUTSIDE RECORDS SUMMARY | 2022-04-02 12:49 | XMS_ITS | Encounter Summary ---
:1975 Author Organization [place] Address [address] [place] [address] Care Team Providers Name Role Phone Melvin Palacios MD Primary Care Provider Reason for Referral Referral not Required - Closed Specialty Diagnoses / Procedures Referred By Contact Refer red To Contact Diagnoses Back pain without radiation Aleksandra Jimenez [facility] PA-C MED [facility] [address] [place] [phone] Fax: Referral ID Status Reason Start Date Expiration Date Visits Requ ested Visits Authorized [id number] Closed 11/23/2007 06/08/2011 1 1 Encounter Details Date Type Department Care Team Description 11/23/2007 Orders Only [facility] Barbara, Back Pain without Clinic [place] PA-C Radiation (Primary Dx) [facility] [address] [place] [address] [phone] Social History Tobacco Use Types Packs/Day Years Used Date Smoking Tobacco: Former Alcohol Use Standard Drinks/Week Comments Yes 0 (1 standard drink = 0.6 oz pure alcoho l) social Sex Assigned at Date Recorded Not on file documented as of this encounter Plan of Treatment Not on filedocumented as of this encounter Visit Diagnoses Diagnosis Back pain without radiation - Primary Backache, unspecified documented in this encounter Care Teams Field Ironworker Relationship Specialty Start Date End Date Melvin Palacios MD PCP - General 06/22/99 09/20/10 [address] [id number] documented as of this encounter
--- OUTSIDE RECORDS SUMMARY | 2022-04-02 12:49 | XMS_ITS | Encounter Summary ---
:1975 Author Organization [place] Address [address] [place] [address]. [place] [address] Care Team Providers Name Role Phone Melvin Palacios MD Primary Care Provider Encounter Details Date Type Department Care Team Description 08/11/2007 Telephone [facility] Tobi West[phone] [place] [address] (Wo rk) Social History Tobacco Use Types Packs/Day Years Used Date Smoking Tobacco: Former Alcohol Use Standard Drinks/Week Comments Yes 0 (1 standard drink = 0.6 oz pure alcoho l) social Sex Assigned at Date Recorded Not on file documented as of this encounter Miscellaneous Notes Telephone Encounter - Librado Yip - 08/11/2007 1:54 PM CST Pt requesting sign up for Pledge51HART, form filled out and sent to abstracting. ER PIPE COVERING documented in this encounter Plan of Treatment Not on filedocumented as of this encounter Visit Diagnoses Not on filedocumented in this encounter Care Teams Filter Cleaner Relationship Specialty Start Date End Date Melvin Palacios MD PCP - General 06/22/99 09/20/10 [address] [address] documented as of this encounter
--- OUTSIDE RECORDS SUMMARY | 2022-04-02 12:49 | XMS_ITS | Encounter Summary ---
:1975 Author Organization [place] Address [address] [place] [address] Care Team Providers Name Role Phone Melvin Palacios MD Primary Care Provider Reason for Visit Reason Onset Date Comments Refill Request 09/10/2007 pt requesting sample s please Encounter Details Date Type Department Care Team Description 09/10/2007 Refill [facility] Melvin Palacios MD Refill Request (pt Clinic [place] [address] requesting samples [address] [facility] please) [place] [phone] Social History Tobacco Use Types Packs/Day Years Used Date Smoking Tobacco: Former Alcohol Use Standard Drinks/Week Comments Yes 0 (1 standard drink = 0.6 oz pure alcoho l) social Sex Assigned at Date Recorded Not on file documented as of this encounter Miscellaneous Notes Telephone Encounter - Felicia Mcintyre - 09/10/2007 1:59 PM CDT Pt called and states she had an appt with Dr. PATTERSON today 09/10/2007 for refill on her Lexapro, pt requesting samples if possible AW: We have samples of Lexapro 10mg and would have to take two tabs daily, can you please authorize,samples at [facility] Felicia Mcintyre/GUY documented in this encounter Plan of Treatment Not on filedocumented as of this encounter Visit Diagnoses Diagnosis Depressive disorder, not elsewhere class ified Generalized anxiety disorder documented in this encounter Care Teams Label Stitcher Relationship Specialty Start Date End Date Melvin Palacios MD PCP - General 06/22/99 09/20/10 [address] [id number] documented as of this encounter
--- OUTSIDE RECORDS SUMMARY | 2022-04-02 12:49 | XMS_ITS | Encounter Summary ---
:1975 Author Organization [place] Address [address] [place] [address] Care Team Providers Name Role Phone Melvin Palacios MD Primary Care Provider Reason for Visit Reason Onset Date Comments Refill Request 01/05/2008 XANAX Encounter Details Date Type Department Care Team Description 01/05/2008 Refill [facility] Zena Palacios MD Refill Request (XANAX) [address] [place] [address] [phone] Social History Tobacco Use Types Packs/Day Years Used Date Smoking Tobacco: Former Alcohol Use Standard Drinks/Week Comments Yes 0 (1 standard drink = 0.6 oz pure alcoho l) social Sex Assigned at Date Recorded Not on file documented as of this encounter Miscellaneous Notes Telephone Encounter - Sridevi Magallon - 01/05/2008 1:49 PM CDT Date of Last OV: 10/15/07 Reason for visit: Depressive sx's Provider seen: Tobi West PA-C When advised to RTC: 3-4 weeks Labs pertaining to med: none Sridevi Magallon RN Telephone Encounter - Deidre Alas - 01/05/2008 1:28 PM CDT LAST FILL DATE: 10/28/07 QTY: 30 [facility] documented in this encounter Plan of Treatment Not on filedocumented as of this encounter Visit Diagnoses Diagnosis Anxiety state, unspecified documented in this encounter Care Teams Registered Respiratory Technician Relationship Specialty Start Date End Date Melvin Palacios MD PCP - General 06/22/99 09/20/10 [address] [id number] documented as of this encounter
--- OUTSIDE RECORDS SUMMARY | 2022-04-02 12:49 | XMS_ITS | Encounter Summary ---
:1975 Author Organization [place] Address [address] [place] [address] Care Team Providers Name Role Phone Melvin Palacios MD Primary Care Provider Esmer Roland MD Primary Care Provider [phone] Yony Garcia PA-C Primary Care Provider [phone] Yony Garcia PA-C Unavailable [phone] Erik Rivas Primary Care Provider Yony Garcia PA-C Unavailable [phone] Reason for Visit Reason Onset Date Comments Refill Request 02/16/2008 Lunesta Encounter Details Date Type Department Care Team Description 02/16/2008 MyC Refill [facility] Melvin Palacios MD Refill Request [facility] [place] [address] [place] [address] (Lunesta) [address] [place] [address] [place] [address] [phone] (Wo rk) Social History Tobacco Use Types Packs/Day Years Used Date Smoking Tobacco: Former Alcohol Use Standard Drinks/Week Comments Yes 0 (1 standard drink = 0.6 oz pure alcoho l) social Sex Assigned at Date Recorded Not on file documented as of this encounter Miscellaneous Notes Telephone Encounter - Tobi Beltran - 02/16/2008 5:42 PM CDT My PA agreement with Dr. Mcguire does not allow me to rx sleeping medications like Lunesta. I have never prescribed this medication for Dariana. I believe Dr. Palacios has rx'd this medication for her. Will you check with either Dr. Mcguire or Dr. Palacios about possible refill. Telephone Encounter - Sridevi Magallon - 02/16/2008 11:04 AM CDT Date of Last OV: 01/26/08 Reason for visit: Depression Provider seen: Tobi West PA-C When advised to RTC: Follow up in 3 months Labs pertaining to med: none Will route to Tobi West PA-C as has seen her more recently for these issues. Sridevi Magallon RN Telephone Encounter - Sridevi Magallon - 02/16/2008 11:01 AM CDT Message from Carbonated Content: Original authorizing provider: Tobi Barber PA-C Dariana Osman would like a refill of the following medications: LUNESTA 3 MG OR TABS [Tobi Barber PA-C] Preferred pharmacy: [facility] Comment: I have been using my anxiety RX to help me sleep but I would like to go back to using the Lunesta RX. My anxiety has been very low and I do not feel I need to keep taking the aniety RX on a regular basis. I am having trouble getting to sleep and staying asleep. documented in this encounter Plan of Treatment Not on filedocumented as of this encounter Visit Diagnoses Diagnosis Depressive disorder, not elsewhere class ified Insomnia Insomnia, unspecified documented in this encounter Care Teams Behavioral Health Professional Relationship Specialty Start Date End Date Melvin Palacios MD PCP - General 06/22/99 09/20/10 [address] [address] Esmer Roland, PCP - General Family Practice 09/21/10 01/29/17 Yony Garcia, PCP - General Physician Condenser Operator - 01/30/17 07/23/18 PA-C Medical Yony Garcia, PCP - Assigned PCP 09/01/16 08/11/18 PA-C [address] [address] Erik Riavs PCP - General Family Practice 07/24/[address] [address] Yony Garcia, Assigned PCP 09/01/16 PA-C [address] [id number] documented as of this encounter
--- OUTSIDE RECORDS SUMMARY | 2022-04-02 12:49 | XMS_ITS | Encounter Summary ---
:1975 Author Organization [facility] Address [address] [place] [address] Care Team Providers Name Role Phone Melvin Palacios MD Primary Care Provider Encounter Details Date Type Department Care Team Description 11/16/[address] [facility] Gurmeet Jimenez, [place] [address] [facility] [address] [place] [address] [place] [address] (Wo rk) Social History Tobacco Use Types Packs/Day Years Used Date Smoking Tobacco: Former Alcohol Use Standard Drinks/Week Comments Yes 0 (1 standard drink = 0.6 oz pure alcoho l) social Sex Assigned at Date Recorded Not on file documented as of this encounter Miscellaneous Notes Telephone Encounter - Aleksandra Jimenez - 11/16/2007 10:13 AM CDT Staff Message copied by ALEKSANDRA JIMENEZ on FriNov 16, 2007 10:13 AM ------ Message from: DARIANA VALDEZ Created: FriNov 16, 2007 10:00 AM Regarding: MRI Contact: Ada I have an appointment with you 11/27 @ 830 at to go over my back. SX still have progressed, pinching and loosing balance. I was wondering could you order a MRI? This wasy we have something to look at at the apt. Dariana documented in this encounter Plan of Treatment Not on filedocumented as of this encounter Procedures Procedure Name Priority Date/Time Associated Diagnosis Comme [facility] MRI LUMBAR SPINE Routine 11/20/2007 5:25 PM Back pain Re sults for this W/O CONTRAST CDT procedure are i n the results section. documented in this encounter Results MRI LUMBAR SPINE (11/20/2007 5:25 PM CDT) Anatomical Region Laterality Modality Other Specimen (Source) Anatomical Collection Method Collection Time Re ceived Time Location / / Volume Laterality 11/20/2007 5:25 PM CDT Impressions 11/21/2007 7:36 AM CDT MRI OF THE LUMBAR SPINE ??November 20, 2007 5:25:00 PM HISTORY: Low back pain. COMPARISON: None. TECHNIQUE: Sagittal T1 and T2 and transv erse proton density and T2-weighted images were obtained through the lumbar spine. FINDINGS: Numbering of the levels is bas ed on what appear to be five lumbar-type vertebral bodies. The verteb ral bodies are well aligned with no fracture or osseous lesion demon strated. The conus medullaris terminates at the level of the T12 verte bral body. No intrathecal abnormality is demonstrated, and the adj acent soft tissues are unremarkable. Findings by specific level: T10-T11 and T11-T12: There is a mild dis c bulge with no disc herniation or stenosis seen. T12-L1, L1-L2, L2-L3 and L4-L5: Normal. L5-S1: The disc is well hydrated and its head is well preserved. There is a mild disc bulge with no focal herni ation seen. No stenosis is demonstrated. IMPRESSION: There are mild disc bulges a t L5-S1 and at T11-T12 as described above. No disc herniation or s tenosis is demonstrated. Aleksandra Jimenez PA-C [employer]IES documented in this encounter Visit Diagnoses Diagnosis Back pain - Primary Backache, unspecified documented in this encounter Care Teams Buckle Stapler Relationship Specialty Start Date End Date Melvin Palacios MD PCP - General 06/22/99 09/20/10 [address] [address] documented as of this encounter
--- OUTSIDE RECORDS SUMMARY | 2022-04-02 12:49 | XMS_ITS | Encounter Summary ---
:1975 Author Organization [place] Address [address] [place] [address]. [place] [address] Care Team Providers Name Role Phone Melvin Palacios MD Primary Care Provider Encounter Details Date Type Department Care Team Description 11/09/2007 Telephone [facility] Gurmeet Jimenez , [place] ZENON [address] [facility], [facility] [address] [place] [address] [place] [address] (Wo rk) Social History Tobacco Use Types Packs/Day Years Used Date Smoking Tobacco: Former Alcohol Use Standard Drinks/Week Comments Yes 0 (1 standard drink = 0.6 oz pure alcoho l) social Sex Assigned at Date Recorded Not on file documented as of this encounter Miscellaneous Notes Telephone Encounter - Aleksandra Jimenez - 11/09/2007 10:43 AM CDT Thanks stephy! Telephone Encounter - Stephy Avalos - 11/09/2007 10:40 AM CDT Aleksandra, we have no samples of Skelaxin and haven't for quite awhile. I see you sent in a script to the pharmacy. I will call dariana and let her know. Stephy Hough Telephone Encounter - Aleksandra Jimenez - 11/09/2007 9:38 AM CDT I have sent in an rx for skelaxin, may give samples also if we have them. Will advise Dariana to have an appt to discuss further. Telephone Encounter - Aleksandra Jimenez - 11/09/2007 9:36 AM CDT Staff Message copied by ALEKSANDRA JIMENEZ on FriNov 09, 2007 9:36 AM ------ Message from: DARIANA VALDEZ Created: FriNov 09, 2007 8:27 AM Regarding: Skelaxin Contact: Renzo Lake Let me know what you think. This past year I have had many problems with my upper back and lower back. This past couple of months have been horrible. I actually have concidered but scared to try again a chiropractor. I have had much trouble bending, putting on pants, lifting my youngest, even going from sitting to standing. This past weekend I really had a tough time. Friday night I was in so much pain (location was lower backand tail bone area) I was nausated. Friday was just as bad, both nights my mom gave me a Flexeral this did not touch anything. Friday morning my mom gave me some samples you had given her, Skelaxin..... I have been in heaven (sort of) after two dosages. Friday as long as I kept up on the dosage I was able to play, work, etc... I was wondering if you would consider making an encounter and write up aRX for Skelaxin? Mom also mentioned if there is a RX written up she can look for samples for me. I am wondering if maybe I should have an MRI done to see what is happening? Please let me know what you think? Dariana If you need a nurse to do anything please forward to APRIL Summers (I would prefer not to have any FM staff in chart, thanks) documented in this encounter Plan of Treatment Not on filedocumented as of this encounter Visit Diagnoses Diagnosis Back pain - Primary Backache, unspecified documented in this encounter Care Teams Cyber Incident Analyst Relationship Specialty Start Date End Date Melvin Palacios MD PCP - General 06/22/99 09/20/10 [address] [id number] documented as of this encounter
--- OUTSIDE RECORDS SUMMARY | 2022-04-02 12:49 | XMS_ITS | Encounter Summary ---
:1975 Author Organization [place] Address [address] [place] [address]. [place] [address] Care Team Providers Name Role Phone Melvin Palacios MD Primary Care Provider Reason for Visit Reason Comments Depression FU on Depression meds - hasn 't noticed a lot of change. Seems to be a little bit more relaxed. Encounter Details Date Type Department Care Team Description 10/15/2007 Office Visit [facility] Tobi West DEPRESSYobani VE DISORDER NEC; [facility] [place] ZENON Maddox GENERALIZED ANXIETY DIS [address] [place] [phone] [id number] Social History Tobacco Use Types Packs/Day Years Used Date Smoking Tobacco: Former Alcohol Use Standard Drinks/Week Comments Yes 0 (1 standard drink = 0.6 oz pure alcoho l) social Sex Assigned at Date Recorded Not on file documented as of this encounter Last Filed Vital Signs Vital Sign Reading Time Taken Comments Blood Pressure 100/54 10/15/2007 10:00 AM CDT Pulse - - Temperature - - Respiratory Rate - - Oxygen Saturation - - Inhaled Oxygen Concentration - - Weight 80.7 kg (178 lb) 10/15/2007 10:00 AM CDT Height 168.3 cm (5' 6.25) 10/15/2007 10:00 AM CDT Body Mass Index 28.51 10/15/2007 10:00 AM CDT documented in this encounter Progress Notes Corie West Tobi Hernandezhelle - 10/22/2007 6:12 AM CDT Dariana Osman presents to clinic today for evaluation of Depression and anxiety. We increased Dariana's dose of Lexapro to 30mg daily approx 3 weeks ago. She has noted small improvement--seems less easily provoked/more relaxed. She also notes adverse SE of feeling tired (pt is currently taking medication in the am). No other adverse SE. She has not set up apts for psychiatry or counseling yet. Dariana has had lots of social stress recently including financial problems, marital difficulties and loss of home/moving in with her parents. She has experienced exacerbation of her depression sxs related to above. Dariana has NO hx of IP psychiatric tx. NO hx of suicide attempts. No hx of bipolar or any other psychiatric hx. PSYCHIATRIC MED HX: Dariana has had NO adverse SE with Lexapro. She has tried Wellbutrin (made mood darker and made pt snappy), Prozac (sexual SE), Effexor (I believe she stated headaches). Dariana denies any thoughts of self harm. Denies any suicidal or homicidal thoughts. Denies any manic behavior or other unusual behaviors while taking Lexapro or any other psychiatric medication. Pt has a good support network. She has access to family/friends who can help with children if needed. GI: The previous dyspepsia/mid-epigastric pain she was experiencingt totally resolved with Protonix samples given at last apt. OBJECTIVE: BP 100/54 Ht 5' 6.25 (1.683 m) Wt 178 lb (80.74 kg) Today's 10/15/07) PHQ-9 score on record= 15 (4-24-08) PHQ-9 score= 18 GENERAL: Very pleasant, comfortable and generally well appearing. PSYCH: Mood is good. Thought content logical, organized and appropriate throughout the interview today. ASSESSMENT/PLAN: 311 DEPRESSIVE DISORDER NEC Comment: Still less than optimal control. Plan: Move med dosing to late afternoon/evening (as she typically feels tired about 3-4 hours after taking medication). Contiue with Lexapro 30mg daily dose pending psychiatry consult. Pt agrees to tryto set up apt today. Schedule counseling also. F/u with me for recheck in 3-4 weeks, unless psychiatry is able to her in within that timeframe. F/usooner if any changes or worsening. 300.02 GENERALIZED ANXIETY DIS Plan: As per above. documented in this encounter Nursing Notes 10/15/2007 10:00 AM CDT >> MELISSA RICKS 10/15/2007 10:29 am Patient presents with: Depression - FU on Depression meds - hasn't noticed a lot of change. Seems to be a little bit more relaxed. Initial BP 100/54 Ht 5' 6.25 (1.68m) Wt 178 lbs (80.7kg) Body mass index is 28.50 kg/(m^2). BP completed using cuff size large Melissa Ricks/GUY documented in this encounter Plan of Treatment Not on filedocumented as of this encounter Visit Diagnoses Diagnosis Depressive disorder, not elsewhere class ified Generalized anxiety disorder documented in this encounter Care Teams Spray Ii Painter Relationship Specialty Start Date End Date Melvin Palacios MD PCP - General 06/22/99 09/20/10 [address] [id number] documented as of this encounter
--- OUTSIDE RECORDS SUMMARY | 2022-04-02 12:49 | XMS_ITS | Encounter Summary ---
:1975 Author Organization [facility] Address [address] [place] [address] Care Team Providers Name Role Phone Melvin Palacios MD Primary Care Provider Reason for Visit Reason Comments Imm/Inj Injection. Melissa Nuñez [facility] Encounter Details Date Type Department Care Team Description 07/27/2007 Allied Health/Nurse [facility] Imm /Inj (Injection. Visit Clinic [place] Melissa Nuñez [facility]) [facility], [address] [place] [address] Social History Tobacco Use Types Packs/Day Years Used Date Smoking Tobacco: Former Alcohol Use Standard Drinks/Week Comments Yes 0 (1 standard drink = 0.6 oz pure alcoho l) social Sex Assigned at Date Recorded Not on file documented as of this encounter Plan of Treatment Not on filedocumented as of this encounter Visit Diagnoses Diagnosis Headache(784.0) - Primary Headache documented in this encounter Care Teams Data Systems Analyst Relationship Specialty Start Date End Date Melvin Palacios MD PCP - General 06/22/99 09/20/10 [address] [id number] documented as of this encounter
--- OUTSIDE RECORDS SUMMARY | 2022-04-02 12:49 | XMS_ITS | Encounter Summary ---
:1975 Author Organization [facility] Address [address] [place] [address] Care Team Providers Name Role Phone Melvin Palacios MD Primary Care Provider Reason for Visit Reason Comments Derm Problem Encounter Details Date Type Department Care Team Description 01/19/2008 Office Visit [facility] Thomas Jimenezister of Foot without Clinic Sara Lake PA-C Infection (Primary Dx) [facility] IC [address] [place], [place] [phone] Social History Tobacco Use Types Packs/Day Years Used Date Smoking Tobacco: Former Alcohol Use Standard Drinks/Week Comments Yes 0 (1 standard drink = 0.6 oz pure alcoho l) social Sex Assigned at Date Recorded Not on file documented as of this encounter Last Filed Vital Signs Vital Sign Reading Time Taken Comments Blood Pressure - - Pulse - - Temperature 37 ??C (98.6 ??F) 01/19/2008 11:30 AM CDT Respiratory Rate - - Oxygen Saturation - - Inhaled Oxygen Concentration - - Weight - - Height - - Body Mass Index - - documented in this encounter Progress Notes Aleksandra Jimenez - 01/19/2008 12:59 PM CDT SUBJECTIVE: Dariana is a 32 year old female presenting with persistent blood blister on bottom of rt foot where a cluster of warts was previously treated. Yesterday, the blister was drained through an 18G puncturebut today is swollen with increased pain and swelling again, no drainage. Past Medical History Diagnosis Date ??? Calculus [...] OR TABS Oral 1 TABLET AT BEDTIME [id number] EXP 10/14 10 0 Allergies Allergen Reactions ??? Codeine OBJECTIVE: Well appearing; NAD; vitals stable; As described yesterday ASSESSMENT:/PLAN: 917.2B Blister of Foot without Infection (primary encounter diagnosis) Comment: Plan: initially, the thick callous was incisied with #11 blade, approx 3mm with good drainage. The area was cleaned and dressed. Then throughout the day, it became swollen with increased tenderness again. We decided to try to cut away the central warty tissue. I cleaned the area with betadine, injected 1%lido/epi under the calloused skin and started to cut with an iris scissors. However, after a 5mm cut was made, I examined the tissue below and it appeared to be very red deep tissue and therefore decided to stop. No skin or callous was removed. We discussed warm soaks twice daily in soapy water, keeping the area clean and dry with application of topical abx, dressing changes few times daily. Will o ccas puncture to allow for fluid drainage if needed. documented in this encounter Nursing Notes 01/19/2008 11:30 AM CDT >> RACHID Goldman Jan 19, 2008 11:38 AM Dariana Osman presents for pt derm issue. No LMP recorded. Temp (Src) 98.6 ??F (37 ??C) (Oral) Estimated Body mass index is 28.83 kg/(m^2) as calculated from: Height of 5' 6.25 (1.683 m) as of 10/15/07 Weight of 180 lb (81.647 kg) as of 10/27/07 BP completed using cuff size: NA. Rachid Yip MA documented in this encounter Plan of Treatment Not on filedocumented as of this encounter Procedures Procedure Name Priority Date/Time Associated Diagnosis Comme nts HC PUNCTURE ASPIRATION Routine 01/19/2008 12:59 PM Blister of Foot ABSCESS/HEMATOMA/CYST CDT without Infection documented in this encounter Visit Diagnoses Diagnosis Blister of foot without infection - Prim harpal Foot and toe(s), blister, without mentio n of infection documented in this encounter Care Teams Charter Coordinator Relationship Specialty Start Date End Date Melvin Palacios MD PCP - General 06/22/99 09/20/10 [address] [id number] documented as of this encounter
--- OUTSIDE RECORDS SUMMARY | 2022-04-02 12:49 | XMS_ITS | Encounter Summary ---
:1975 Author Organization Agency Address [address] [facility] [place] [address] Care Team Providers Name Role Phone Melvin Palacios MD Primary Care Provider Reason for Referral - Closed Specialty Diagnoses / Procedures Referred By Contact Refer red To Contact Diagnoses Depressive disorder, not elsewhere classified Anxiety state, unspecified Tobi West PA-C [address] [place], [place] [address] Referral ID Status Reason Start Date Expiration Date Visits Requ ested Visits Authorized [id number] Closed 09/24/2007 06/08/2011 1 1 Reason for Visit Reason Comments Medication Request pt is over stressed with samuel colon problems- would like to discuss med upgrade or additional me d Depression Encounter Details Date Type Department Care Team Description 09/24/2007 Office Visit [facility] Tobi West VE DISORDER NEC; [facility] [place] ZENON Maddox ANXIETY STATE NOS; [address] [facility] [address] [facility] [place] [address] [phone] Social History Tobacco Use Types Packs/Day Years Used Date Smoking Tobacco: Former Alcohol Use Standard Drinks/Week Comments Yes 0 (1 standard drink = 0.6 oz pure alcoho l) social Sex Assigned at Date Recorded Not on file documented as of this encounter Last Filed Vital Signs Vital Sign Reading Time Taken Comments Blood Pressure 102/70 09/24/2007 11:00 AM CDT Pulse - - Temperature - - Respiratory Rate - - Oxygen Saturation - - Inhaled Oxygen Concentration - - Weight 78 kg (172 lb) 09/24/2007 11:00 AM CDT Height 167.6 cm (5' 6) 09/24/2007 11:00 AM CDT Body Mass Index 27.76 09/24/2007 11:00 AM CDT documented in this encounter Progress Notes oTbi Beltran - 10/01/2007 5:19 AM CDT Dariana Osman presents to clinic today for evaluation of Depression and anxiety. Dariana has had lots of social stress [...] can help with children if needed. GI: Dariana also c/o mid-epigastric pain (gnawing discomfort). No abdominal pain elsewhere. She has sensation of chronic nausea. No emesis. No diarrhea. NO GERD. No hx of PUD. Patient denies any weight loss, early satiety, dysphagia or black/bloody stools. OBJECTIVE: BP 102/70 Ht 5' 6 (1.68m) Wt 172 lbs (78.0kg) Today's (10-01-07) PHQ-9 score= 18 GENERAL: Very pleasant, comfortable and generally well appearing. PSYCH: Mood is good. Thought content logical, organized and appropriate throughout the interview today. ASSESSMENT/PLAN: 311 DEPRESSIVE DISORDER NEC Note: Depression exacerbation. Plan: CBC WITH PLATELETS, TSH W/FREE T4 REFLEX, CONSULT PSYCHIATRY ([facility]) Increased to Lexapro 30mg daily. F/u in 2-3 weeks for recheck. Potential adverse SE related to medication adjustment are discussed in detail. F/u STAT if any increased anxiety/depression or if any other unusual mood changes occur following medication start. Pt agrees to make apts to f/u with psychiatry and with counselor. 300.00 ANXIETY STATE NOS Plan: CONSULT PSYCHIATRY ([facility]) As per above. 789.06 ABDOMINAL PAIN EPIGASTRIC Note: Gastritis vs PUD Plan: HELICOBACTER PYLORI SITA IGG Samples of Protonix 40mg given x 3 weeks. Pt will f/u for recheck in 2-3 weeks. F/u sooner if sxs fail to improve or if sxs worsen. documented in this encounter Nursing Notes 09/24/2007 11:00 AM CDT >> BRENDA COX 09/24/2007 11:13 am Patient presents with: Medication Request - pt is over stressed with marriage problems- would like to discuss med upgrade or additional med Initial BP 102/70 Ht 5' 6 (1.68m) Wt 172 lbs (78.0kg) Body mass index is 27.77 kg/(m^2).. BP completed using cuff size regular Brenda Cox CMA documented in this encounter Plan of Treatment Not on filedocumented as of this encounter Procedures Procedure Name Priority Date/Time Associated Comments Diagnosis HCL HELICOBACTER Routine 09/24/2007 12:05 Abdominal Pain Resul ts for this PYLORI SITA IGG PM CDT Epigastric procedure are in the results section. CL AFF CBC WITH Routine 09/24/2007 12:04 Depressive Disorder R esults for this PLATELETS PM CDT Nec procedure are i n the results section. HCL TSH W/FREE T4 Routine 09/24/2007 12:04 Depressive Disorder Results for this REFLEX PM CDT Nec procedure are i n the results section. documented in this encounter Results HELICOBACTER PYLORI SITA IGG (09/24/2007 12:05 PM CDT) Component Value Ref Test Analysis Performed At [facility] gist Range Method Time Signature Specimen Whole Blood [facility] Description [facility] Heliobacter No detectable IgG antibody t o Helicobacter pylori. If current infection is ZUNI pylori Antibody suspected, please submit a new specimen in 4 to 6 we eks. [facility] Report status FINAL 09/24/2007 [facility] Specimen Anatomical Collection Method Collection Time Receive d Time (Source) Location / / Volume Laterality 09/24/2007 12:05 09/24/2007 PM CDT 12:08 PM CDT Tobi West PA-C LABORATORY Performing Organization Address City/[facility]/ZIP Code Phon e Number [facility] [id number] [place] [address] [facility] TSH W/FREE T4 REFLEX (09/24/2007 12:04 PM CDT) athologist Signature TSH 1.24 0.4 - 5.0 [facility] mU/L [facility] Specimen Anatomical Collection Method Collection Time Receive d Time (Source) Location / / Volume Laterality 09/24/2007 12:04 09/24/2007 PM CDT 12:08 PM CDT Tobi West PA-C LABORATORY Performing Organization Address City/[facility]/ZIP Code Phon e Number [facility] [address] [place] [address] [facility] CBC WITH PLATELETS (09/24/2007 12:04 PM CDT) P athologist Signature WBC 5.8 4.0 - 11.0 [facility]/L [facility] RBC Count 4.42 3.8 - 5.2 [facility] 10[facility]12/L [facility] Hemoglobin 13.1 11.7 - [facility] 15.[facility] g/dL [facility] Hematocrit 39.8 35.0 - [place] 47.0 % [facility] MCV 90 78 - 100 [facility] fl [facility] MCH 29.6 26.5 - [place] 33.0 pg [facility] MCHC 32.9 31.5 - [place] 36.5 g/dL [facility] RDW 12.9 10.0 - [place] 15.0 % [facility] Platelet Count 287 150 - 450 [facility] 10e9/L [facility] Specimen Anatomical Collection Method Collection Time Receive d Time (Source) Location / / Volume Laterality 09/24/2007 12:04 09/24/2007 PM CDT 12:08 PM CDT Tobi West PA-C LABORATORY Performing Organization Address City/State/[facility] Code Phon e Number [facility] [address] [place] [address] [facility] documented in this encounter Visit Diagnoses Diagnosis Depressive disorder, not elsewhere class ified Anxiety state, unspecified Abdominal pain, epigastric documented in this encounter Care Teams Usability Architect Relationship Specialty Start Date End Date Melvin Palacios MD PCP - General 06/22/99 09/20/10 [address] [id number] documented as of this encounter
--- OUTSIDE RECORDS SUMMARY | 2022-04-02 12:49 | XMS_ITS | Encounter Summary ---
:1975 Author Organization [facility] Address [address] [place] [address] Care Team Providers Name Role Phone Melvin Palacios MD Primary Care Provider Encounter Details Date Type Department Care Team Description 07/27/2007 Orders Only [facility] Barbara, MIGRAINE N OS W/O MENTN [facility] [place] ZENON Lake INTRACTABLE (Primary [facility] IC Dx) [address] [place] [address] SONJA YEH [phone] Social History Tobacco Use Types Packs/Day Years Used Date Smoking Tobacco: Former Alcohol Use Standard Drinks/Week Comments Yes 0 (1 standard drink = 0.6 oz pure alcoho l) social Sex Assigned at Date Recorded Not on file documented as of this encounter Progress Notes Aleksandra Jimenez - 07/27/2007 11:32 AM CST Dariana with migraine started this morning. Will give imitrex shot now H PIECER documented in this encounter Plan of Treatment Not on filedocumented as of this encounter Visit Diagnoses Diagnosis Migraine, unspecified, without mention o f intractable migraine without mention of status migrainosus - Primary documented in this encounter Care Teams Die Mechanic Relationship Specialty Start Date End Date Melvin Palacios MD PCP - General 06/22/99 09/20/10 [address] [id number] documented as of this encounter
--- OUTSIDE RECORDS SUMMARY | 2022-04-02 12:49 | XMS_ITS | Encounter Summary ---
:1975 Author Organization [facility] Address [address] [place] [address]. [place] [address] Care Team Providers Name Role Phone Melvin Palacios MD Primary Care Provider Reason for Visit Reason Onset Date Comments Refill Request 10/08/2007 Encounter Details Date Type Department Care Team Description 10/08/2007 Refill [facility] Tobi West, Refill Request [address] [phone] [place] [address] (Wo rk) Social History Tobacco Use Types Packs/Day Years Used Date Smoking Tobacco: Former Alcohol Use Standard Drinks/Week Comments Yes 0 (1 standard drink = 0.6 oz pure alcoho l) social Sex Assigned at Date Recorded Not on file documented as of this encounter Miscellaneous Notes Telephone Encounter - Divine Coreas - 10/08/2007 1:38 PM CDT Informed pt. Divine Coreas CMA Telephone Encounter - Tobi Beltran - 10/08/2007 10:38 AM CDT Please call Dariana to let her know i sent the requested rx. If we have enough samples to get her to next weeks f/u apt, I am fine with providing her with samples also. Telephone Encounter - Hiwot Avalos - 10/08/2007 9:06 AM CDT Pt out of medication. Is now taking the 30mg of Lexapro. Pt has appt to see you next week. Karol Avalos LPN documented in this encounter Plan of Treatment Not on filedocumented as of this encounter Visit Diagnoses Diagnosis Depressive disorder, not elsewhere class ified Generalized anxiety disorder documented in this encounter Care Teams Solution Design Engineer Relationship Specialty Start Date End Date Melvin Palacios MD PCP - General 06/22/99 09/20/10 [address] [id number] documented as of this encounter
--- OUTSIDE RECORDS SUMMARY | 2022-04-02 12:49 | XMS_ITS | Encounter Summary ---
:1975 Author Organization [place] Address [address] [place] [address] Care Team Providers Name Role Phone Melvin Palacios MD Primary Care Provider Reason for Visit Reason Comments Depression FU on Lexapro dosage Anxiety Encounter Details Date Type Department Care Team Description 01/26/2008 Office Visit [facility] [place] DEPRESSYobani VE DISORDER NEC; [facility] [place] ZENON [place]ox [place]XI[place]Y STATE NOS [address] [facility] [id number] [place] [phone] [phone] Social History Tobacco Use Types Packs/Day Years Used Date Smoking Tobacco: Former Alcohol Use Standard Drinks/Week Comments Yes 0 (1 standard drink = 0.6 oz pure alcoho l) social Sex Assigned at Date Recorded Not on file documented as of this encounter Last Filed Vital Signs Vital Sign Reading Time Taken Comments Blood Pressure 124/66 01/26/2008 9:45 AM CDT Pulse - - Temperature - - Respiratory Rate - - Oxygen Saturation - - Inhaled Oxygen Concentration - - Weight 83.5 kg (184 lb) 01/26/2008 9:45 AM CDT Height 168.9 cm (5' 6.5) 01/26/2008 9:45 AM CDT Body Mass Index 29.25 01/26/2008 9:45 AM CDT documented in this encounter Progress Notes Tobi Beltranle - 01/30/2008 8:04 AM CDT Dariana Osman presents to clinic today for evaluation of Depression and anxiety. Since we increased Dariana's dose of Lexapro to 30mg daily she has noted significantimprovement. Shereportedly seems less easily provoked/more relaxed. She does note some adverse SE of feeling tired but that has improved some with moving dose to evening meal time. No other adverse SE. She has not set up apts for psychiatry or counseling yet. Dariana has NO hx of IP psychiatric tx. NO hx of suicide attempts. No hx of bipolar or any other psychiatric hx. PSYCHIATRIC MED HX: Dariana has had NO adverse SE with Lexapro other than possible fatigue noted above. She has tried Wellbutrin (made mood darker [...] help with children if needed. OBJECTIVE: BP 124/66 Ht 5' 6.5 (1.689 m) Wt 184 lb (83.462 kg) Today's (01-26-08) PHQ-9 score on record= 9 (10/15/07) PHQ-9 score on record= 15 (10-01-07) PHQ-9 score= 18 GENERAL: Very pleasant, comfortable and generally well appearing. PSYCH: Mood is good. Thought content logical, organized and appropriate throughout the interview today. ASSESSMENT/PLAN: 311 DEPRESSIVE DISORDER NEC Comment: Good control. Plan: CELEXA 40 MG OR TABS Pt is given another month of Lexapro 30mg samples. She will try switch to Celexa thereafter due to formulary coverage problems with Lexapro. Pt will f/u in 3 months for recheck or sooner of any mood changes or problems. F/u with counseling. 300.00 ANXIETY STATE NOS Comment: Good Control. Plan: CELEXA 40 MG OR TABS As per above. documented in this encounter Nursing Notes 01/26/2008 9:45 AM CDT >> MELISSA Goldman Jan 26, 2008 10:30 AM Patient presents with: Depression - FU on Lexapro dosage Anxiety Initial BP 138/74 Ht 5' 6.5 (1.689 m) Wt 184 lb (83.462 kg) Body mass index is 29.25 kg/(m^2). BP completed using cuff size large Melissa Ricks/FREELANCE GRAPHIC DESIGNER documented in this encounter Plan of Treatment Not on filedocumented as of this encounter Visit Diagnoses Diagnosis DEPRESSIVE DISORDER NEC Depressive disorder, not elsewhere class ified ANXIETY STATE NOS Anxiety state, unspecified documented in this encounter Care Teams Head Of Marketing Adometry Relationship Specialty Start Date End Date Melvin Palacios MD PCP - General 06/22/99 09/20/10 [address] [id number] documented as of this encounter
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
--- OUTSIDE RECORDS SUMMARY | 2022-04-02 12:49 | XMS_ITS | Encounter Summary ---
:1975 Author Organization [facility] Address [address] [place] [address] Care Team Providers Name Role Phone Melvin Palacios MD Primary Care Provider Reason for Visit Reason Onset Date Comments Referral 01/01/2008 pt requesting her re ferral faxed to her Encounter Details Date Type Department Care Team Description 01/01/2008 Telephone [facility] Melvin Palacios MD Referral (pt requesting [facility] [place] [address] her referral faxed to [address] [place] [address]) [place] [address] [phone] (Wo rk) Social History Tobacco Use Types Packs/Day Years Used Date Smoking Tobacco: Former Alcohol Use Standard Drinks/Week Comments Yes 0 (1 standard drink = 0.6 oz pure alcoho l) social Sex Assigned at Date Recorded Not on file documented as of this encounter Miscellaneous Notes Telephone Encounter - Felicia Mcintyre - 01/01/2008 1:02 PM CDT Pt calling and states would like her referral for faxed to her at [phone]--referral faxed Felicia Mcintyre/GUY documented in this encounter Plan of Treatment Not on filedocumented as of this encounter Visit Diagnoses Not on filedocumented in this encounter Care Teams Sap Data Analyst Relationship Specialty Start Date End Date Melvin Palacios MD PCP - General 06/22/99 09/20/10 [address] [id number] documented as of this encounter
--- OUTSIDE RECORDS SUMMARY | 2022-04-02 12:50 | XMS_ITS | Encounter Summary ---
:1975 Author Organization [facility] Address [address] [place] [address] Care Team Providers Name Role Phone Melvin Palacios MD Primary Care Provider Reason for Visit Reason Onset Date Comments Refill Request 12/11/2006 lunesta and lexapro samples Encounter Details Date Type Department Care Team Description 12/11/2006 Refill [facility] [place] efill Request (lunesta Cord ZENON [place]ox and lexapro samples) [address] [place] [phone] (Wo rk) Social History Tobacco Use Types Packs/Day Years Used Date Smoking Tobacco: Former Alcohol Use Standard Drinks/Week Comments Yes 0 (1 standard drink = 0.6 oz pure alcoho l) social Sex Assigned at Date Recorded Not on file documented as of this encounter Miscellaneous Notes Telephone Encounter - Ernestine Salinas - 12/11/2006 4:22 PM CDT Pt calls for samples of lunesta and lexapro, do have lunesta 3 mg samples #10 and lexapro starter kits (pt will have to take 2 qd) Last OV: 08/01/06 Reason for visit: depressive, adjustment disorder Date last filled: n/a WILL PSO LEXAPRO LI PLEASE SIGN OFF LUNESTA AND ROUTE BACK TO TRIAGE AND WILL SUPPLY MOM WITH SAMPLES, WILL KEEP IN TRIAGE Ernestine Salinas RN documented in this encounter Plan of Treatment Not on filedocumented as of this encounter Visit Diagnoses Diagnosis Depressive disorder, not elsewhere class ified Generalized anxiety disorder documented in this encounter Care Teams Small Parts Assembler Relationship Specialty Start Date End Date Melvin Palacios MD PCP - General 06/22/99 09/20/10 [address] [id number] documented as of this encounter
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
--- OUTSIDE RECORDS SUMMARY | 2022-04-02 12:50 | XMS_ITS | Encounter Summary ---
:1975 Author Organization [facility] Address [address] [facility] [place] [address] Care Team Providers Name Role Phone Melvin Palacios MD Primary Care Provider Reason for Visit Reason Comments RECHECK medication - Wellbutrin Encounter Details Date Type Department Care Team Description 05/17/2004 Office Visit [facility] [place] DEPRESSYobani VE DISORDER Clinic [place] ZENON Maddox [facility] (Primary Dx) [address] [address] [phone] Social History Tobacco Use Types Packs/Day Years Used Date Smoking Tobacco: Never Alcohol Use Standard Drinks/Week Comments Yes 0 (1 standard drink = 0.6 oz pure alcoho l) social Sex Assigned at Date Recorded Not on file documented as of this encounter Last Filed Vital Signs Vital Sign Reading Time Taken Comments Blood Pressure 110/64 05/17/2004 9:51 AM LOCAL SALES ASSOCIATE Pulse - - Temperature - - Respiratory Rate - - Oxygen Saturation - - Inhaled Oxygen Concentration - - Weight - - Height - - Body Mass Index - - documented in this encounter Progress Notes 05/17/2004 9:30 AM LOCAL SALES ASSOCIATE Dariana Osman presents to clinic today for evaluation of depression. See previous dications for sxs. Dariana and her family members have noted significant mood improvement since she started Wellbutrin about 6 weeks ago. Initially, pt had headaches. Those have resolved. No other adverse SE. she denies any thoughts of self harm. Denies any suicidal or homicidal thoughts. Denies any manic behavior or other unusual behaviors since starting medication. OBJECTIVE: BP 110/64 GENERAL: Very pleasant, comfortable and generally well appearing. PSYCH: Mood is good. Thought content logical, organized and appropriate throughout the interview today. ASSESSMENT/PLAN: 311 DEPRESSIVE DISORDER NEC (primary encounter diagnosis) Plan: WELLBUTRIN XL 300MG f/u 3 months for a recheck or sooner if problems. documented in this encounter Nursing Notes 05/17/2004 9:30 AM CST >> AGUSTIN DYER 05/17/04 9:52 am Dariana Osman presents for f/u on medication - Wellbutrin. Initial BP 110/64. BP completed using cuff size: regular. Agustin Dyer MA documented in this encounter Plan of Treatment Not on filedocumented as of this encounter Visit Diagnoses Diagnosis Depressive disorder, not elsewhere class ified - Primary documented in this encounter Care Teams Metal Extrusion Supervisor Relationship Specialty Start Date End Date Melvin Palacios MD PCP - General 06/22/99 09/20/10 [address] [id number] documented as of this encounter
--- OUTSIDE RECORDS SUMMARY | 2022-04-02 12:50 | XMS_ITS | Encounter Summary ---
:1975 Author Organization [facility] Address [address] [place] [address] Care Team Providers Name Role Phone [place] Palacios MD Primary Care Provider Reason for Visit Reason Comments Recheck Medication prescription needed Encounter Details Date Type Department Care Team Description 08/01/2006 Office Visit [facility] [place] Palacios MD DEPRESSIVE DISORDER NEC; Clinic [place] [address] [place] [address] GENERALIZED ANXIETY DIS; [address] [place] [address] OTHER GENERAL SYMPTOMS [place], [place] [address] [phone] Social History Tobacco Use Types Packs/Day Years Used Date Smoking Tobacco: Former Alcohol Use Standard Drinks/Week Comments Yes 0 (1 standard drink = 0.6 oz pure alcoho l) social Sex Assigned at Date Recorded Not on file documented as of this encounter Last Filed Vital Signs Vital Sign Reading Time Taken Comments Blood Pressure 106/62 08/01/2006 9:30 AM PERINATAL SPECIALIST Pulse - - Temperature - - Respiratory Rate - - Oxygen Saturation - - Inhaled Oxygen Concentration - - Weight 76.7 kg (169 lb) 08/01/2006 9:30 AM PERINATAL SPECIALIST Height 167.6 cm (5' 6) 08/01/2006 9:30 AM PERINATAL SPECIALIST Body Mass Index 27.28 08/01/2006 9:30 AM PERINATAL SPECIALIST documented in this encounter Progress Notes [place] Palacios - 08/01/2006 10:34 AM CST SUBJECTIVE: Dariana Osman 30 year old female presents for Depression f/u... Doing well. She does note, however, some mood swings over the last 2 months (nearly 3 months after stopping Seasonale as directed by Dr. Guerra). Her periods are regular but heavy. She notes cold intolerance. Father has hx of thyroid disorder. Histories Updated through 08-01-2006: Past Medical History Diagnosis Date ??? CALCULUS OF KIDNEY ??? DEPRESSIVE DISORDER NEC ??? ANXIETY STATE NOS Past Surgical History Procedure Date ??? Nonspecific [...] file Current outpatient prescriptions Medication Sig ??? LEXAPRO 20 MG OR TABS ONE DAILY ??? LEXAPRO 10 MG OR TABS 2 TABLET DAILY ??? LUNESTA 3 MG OR TABS 1 TABLET AT BEDTIME Allergies as of 08/01/2006 - reviewed 08/01/2006 Allergen Reaction Noted ??? Codeine 03/11/2003 ROS: [...] S4 and no murmur, click or rub NEURO: Normal strength and tone, mentation intact and speech normal PSYCH: mentation appears normal and affect normal/bright ASSESSMENT/PLAN: 1- depression/Anxiety, doing well. After d/w pt regarding risks and benefits as well as possible side effects, drug interactions and adverse reactions, pt accepts prescription for Lexapro refill per HS orders. 2- Cold intolerance. Labs per HS orders. NATAL SPECIALIST documented in this encounter Nursing Notes 08/01/2006 9:30 AM CST >> PHUONG FLORES 08/01/2006 9:44 am [place] presents for medication follow up with refills. Pt states she has concerns regarding mood swings from nice to mean. Initial BP 106/62 Ht 5' 6 (1.68m) Wt 169 lbs (76.7kg) Body mass index is 27.29 kg/(m^2). BP completed using cuff size: regular. GUY Aldridge documented in this encounter Plan of Treatment Not on filedocumented as of this encounter Procedures Procedure Name Priority Date/Time Associated Diagnosis Comme nts CL AFF CBC WITH Routine 08/01/2006 10:10 AM OTHER GENERAL Resu lts for this PLATELETS PERINATAL SPECIALIST SYMPTOMS procedure are i n the results section. HCL TSH W/FREE T4 Routine 08/01/2006 10:10 AM OTHER GENERAL Re sults for this REFLEX PERINATAL SPECIALIST SYMPTOMS procedure are i n the results section. documented in this encounter Results CBC WITH PLATELETS (08/01/2006 10:10 AM PERINATAL SPECIALIST) athologist Signature WBC 6.0 4.0 - 11.0 [facility] 10e9/L [facility] RBC Count 4.47 3.8 - 5.2 [place] 10e12/L [facility] Hemoglobin 13.5 11.7 - [facility] 15.7 g/dL [facility] Hematocrit 39.5 35.0 - [place] 47.0 % [facility] MCV 88 78 - 100 [place] fl [facility] MCH 30.2 26.5 - [facility] [place] 33.0 pg [facility] MCHC 34.2 32.0 - [facility] [place] 36.0 g/dL [facility] RDW 13.2 10.0 - [facility] 15.0 % [facility] Platelet Count 236 150 - 450 [facility]L [facility] Specimen Anatomical Collection Method Collection Time Receive d Time (Source) Location / / Volume Laterality 08/01/2006 10:10 08/01/2006 AM PERINATAL SPECIALIST 10:15 AM PERINATAL SPECIALIST [place] Palacios MD LABORATORY Performing Organization Address City/State/ZIP Code Phon e Number [facility] [address] [place] [address] [facility] TSH W/FREE T4 REFLEX (08/01/2006 10:10 AM PERINATAL SPECIALIST) P athologist Signature TSH 1.50 0.4 - 5.0 [facility] mU/L [facility] Specimen Anatomical Collection Method Collection Time Receive d Time (Source) Location / / Volume Laterality 08/01/2006 10:10 08/01/2006 AM PERINATAL SPECIALIST 10:15 AM PERINATAL SPECIALIST [place] Palacios MD LABORATORY Performing Organization Address City/State/ZIP Code Phon e Number [facility] [address] [place] [address] [facility] documented in this encounter Visit Diagnoses Diagnosis Depressive disorder, not elsewhere class ified Generalized anxiety disorder Other general symptoms(780.99) Other general symptoms documented in this encounter Care Teams Metalizing Machine Operator Automatic Relationship Specialty Start Date End Date [place] Palacios MD PCP - General 06/22/99 09/20/10 [address] [id number] documented as of this encounter
--- OUTSIDE RECORDS SUMMARY | 2022-04-02 12:50 | XMS_ITS | Encounter Summary ---
:1975 Author Organization [facility] Address [address] [place] [address] Care Team Providers Name Role Phone [place] Palacios MD Primary Care Provider Reason for Visit Reason Onset Date Comments Medication Request 03/25/2006 lexapro needed Encounter Details Date Type Department Care Team Description 03/25/[facility] [place] ZENON [place]ox (lexapro needed) [address] [place] [phone] Social History Tobacco Use Types Packs/Day Years Used Date Smoking Tobacco: Former Alcohol Use Standard Drinks/Week Comments Yes 0 (1 standard drink = 0.6 oz pure alcoho l) social Sex Assigned at Date Recorded Not on file documented as of this encounter Miscellaneous Notes Telephone Encounter - Melissa Ricks - 03/25/2006 11:33 AM CDT Spoke with Dariana and relayed info. Ying/GUY Telephone Encounter - Tobi Beltran - 03/25/2006 11:20 AM CDT Please call Dariana. Dr Palacios's last note (01-15-06) states that he increse her Lexapro to 20mg dose and directed her to f/u in 4 weeks for recheck. She should make an apt to be seen in the next 1-2 weeks. Please confirm the above dose increase. Please let Dariana know that,pending her f/u apt, I have BOTH sent an rx to [facility] AND given samples (enough for 20mg daily x 2 weeks) Telephone Encounter - Hiwot Avalos - 03/25/2006 9:12 AM CDT Last office visit 03/07/06 with CL. I have bagged up samples for her to picking machine operator and left them with radiology receptionist. Karol Avalos LPN Telephone Encounter - Hiwot Avalos - 03/25/2006 9:04 AM CDT Staff Message copied by HIWOT AVALOS on 03/25/2006 at 9:04 AM ------ Message from: LE TYSON Created: 03/25/2006 at 8:49 AM Regarding: marci Dariana would like more samples of lexapro or a rx sent to [facility] she has enougt for today any questions pls call [phone] thanks documented in this encounter Plan of Treatment Not on filedocumented as of this encounter Visit Diagnoses Diagnosis Adjustment disorder with depressed mood Generalized anxiety disorder Depressive disorder, not elsewhere class ified documented in this encounter Care Teams Online Editor Relationship Specialty Start Date End Date [place] Palacios MD PCP - General 06/22/99 09/20/10 [id number] [id number] documented as of this encounter
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
--- OUTSIDE RECORDS SUMMARY | 2022-04-02 12:50 | XMS_ITS | Encounter Summary ---
:1975 Author Organization [place] Address [address] [place] [address] Care Team Providers Name Role Phone [place] Palaciso MD Primary Care Provider Reason for Visit Reason Onset Date Comments Refill Request 01/18/2005 Wellbutrin Encounter Details Date Type Department Care Team Description 01/18/2005 Refill [facility] [place] Request [place] ZENON Maddox (Wellbutrin) [address] [place] [phone] (Wo rk) Social History Tobacco Use Types Packs/Day Years Used Date Smoking Tobacco: Never Alcohol Use Standard Drinks/Week Comments Yes 0 (1 standard drink = 0.6 oz pure alcoho l) social Sex Assigned at Date Recorded Not on file documented as of this encounter Miscellaneous Notes Telephone Encounter - Stefanie Soriano - 01/18/2005 4:28 PM CDT Pt's insurance no longer covering Wellbutrin XL. Would like samples otherwise has to pay out of pocket. Pt requesting samples. Samples approved by CL. Pt notified Stefanie Soriano CMA Telephone Encounter - Sridevi Magallon - 01/18/2005 9:48 AM CDT Refill requested for Wellbutrin XL 300mg Last OV was 05/17/04 with AW Was given a refill in October with instructions that she needed to be seen again in 4-6 weeks for followup- has not Unable to do PSO Sridevi Magallon RN documented in this encounter Plan of Treatment Not on filedocumented as of this encounter Visit Diagnoses Diagnosis Depressive disorder, not elsewhere class ified documented in this encounter Care Teams Mechanical Maintenance Engineer Relationship Specialty Start Date End Date [place] Palaicos MD PCP - General 06/22/99 09/20/10 [address] [id number] documented as of this encounter
--- OUTSIDE RECORDS SUMMARY | 2022-04-02 12:50 | XMS_ITS | Encounter Summary ---
:1975 Author Organization [facility] Address [address] [place] [address]. [place] [address] Care Team Providers Name Role Phone [place] Palacios MD Primary Care Provider Reason for Visit Reason Onset Date Comments Medication Request 11/06/2004 wellbutrin Encounter Details Date Type Department Care Team Description 11/06/2004 Telephone [facility] [place] on Request Clinic [place] ZENON Maddox (wellbutrin) [address] [place] [phone] Social History Tobacco Use Types Packs/Day Years Used Date Smoking Tobacco: Never Alcohol Use Standard Drinks/Week Comments Yes 0 (1 standard drink = 0.6 oz pure alcoho l) social Sex Assigned at Date Recorded Not on file documented as of this encounter Miscellaneous Notes Telephone Encounter - [place] Beltran - 11/06/2004 11:47 AM CDT My note states that Dariana was previously on Wellbutrin XL 300mg daily. I suggest she restart at Wellbutrin XL 150mg daily x 1-2 weeks; then she may increase to 300mg dose. I gave Hiwot samples (of 150mg dose) for her x 2 weeks and left message for her to phone clinic for restart directions. I sent rx to her pharmacy for the 300mg dose. Please have Dariana see me for a med check in 4-6 weeks or sooner if she is having problems. Telephone Encounter - Hiwot Avalos - 11/06/2004 11:11 AM CDT Jannette called wanting to restart the Wellbutrin she was previously on in the fall of 2003. She is seeing a therapist later today and will be seeing you later in November.I selected the 150mg dose it looks like that is what she was started with previously then worked up to the 300mg. Karol Avalos LPN documented in this encounter Plan of Treatment Not on filedocumented as of this encounter Visit Diagnoses Diagnosis Depressive disorder, not elsewhere class ified - Primary documented in this encounter Care Teams Lan/Wan Engineer Relationship Specialty Start Date End Date [place] Palacios MD PCP - General 06/22/99 09/20/10 [id number] [id number] documented as of this encounter
--- OUTSIDE RECORDS SUMMARY | 2022-04-02 12:50 | XMS_ITS | Encounter Summary ---
:1975 Author Organization [facility] Address [address] [place] [address] Care Team Providers Name Role Phone [place] Palacios MD Primary Care Provider Reason for Visit Reason Onset Date Comments Medication Request 04/24/2006 Lexapro samples Encounter Details Date Type Department Care Team Description 04/24/2006 Telephone [facility] [place] Palacios MD Medication Request Clinic [place] [address] (Lexapro samples) [id number] [place] [phone] (Wo rk) Social History Tobacco Use Types Packs/Day Years Used Date Smoking Tobacco: Former Alcohol Use Standard Drinks/Week Comments Yes 0 (1 standard drink = 0.6 oz pure alcoho l) social Sex Assigned at Date Recorded Not on file documented as of this encounter Miscellaneous Notes Telephone Encounter - [place] Palacios - 04/24/2006 3:43 PM CST Give lotsa samples E MONITORING Telephone Encounter - Stefanie Palumbo - 04/24/2006 2:57 PM NURSE MONITORING Staff Message copied by STEFANIE PALUMBO on 04/24/2006 at 2:57 PM ------ Message from: LE TYSON Created: 04/24/2006 at 2:13 PM Regarding: cl Dariana would like more samples of lexapro sh is all out. Pt does have appt w/ Dr Palacios on 04-28 Pls call [phone] thanks E MONITORING documented in this encounter Plan of Treatment Not on filedocumented as of this encounter Visit Diagnoses Not on filedocumented in this encounter Care Teams Inspector Bullet Slugs Relationship Specialty Start Date End Date [place] Palacios MD PCP - General 06/22/99 09/20/10 [address] [id number] documented as of this encounter
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
--- OUTSIDE RECORDS SUMMARY | 2022-04-02 12:50 | XMS_ITS | Encounter Summary ---
:1975 Author Organization [facility] Address [address] [place] [address] Care Team Providers Name Role Phone Melvin Palacios MD Primary Care Provider Encounter Details Date Type Department Care Team Description 02/18/2006 Results Only [facility] Harris James MD Hospital Results EMERG[facility]Y [facility] [address] [place], [place] [address] (Wo rk) Social History [...] Priority Date/Time Associated Diagnosis Comme nts CT ABDOMEN W/O Routine 02/18/2006 9:29 PM Resu lts for this CONTRAST CDT procedure are i n the results section. HC US PELVIC Routine 02/18/2006 7:52 PM Results f or this NON-OB, COMPLETE CDT procedure a re in the results section. documented in this encounter Results CT SCAN ABDOMEN (02/18/2006 9:29 PM CDT) Anatomical Region Laterality Modality Other Specimen (Source) Anatomical Collection Method Collection Time Re ceived Time Location / / Volume Laterality 02/18/2006 9:29 PM CDT Impressions 02/18/2006 11:39 PM CDT ABDOMEN AND PELVIC CT WITHOUT I.V. CONTR AST ? CLINICAL HISTORY: ??Abdominal pain. ? FINDINGS: ??Helical CT through the abdom en and pelvis was performed using renal stone protocol. ??The left ariane bingham is showing two nonobstructing stones located in the upp er pole on image 21 and in the lower pole on image 31. ??A tiny sto ne is also located in the mid portion of the left kidney on image 26. ??The right kidney appeared unremarkable without hydronephrosis or r enal lithiasis. ??There is no evidence of ureteral lithiasis or bladde r stones. ? The appendix can be seen and appeared no rmal on image 50. ??The remainder of the study appeared otherwis e unremarkable. ? CONCLUSION: ?? 1) ?Nonobstructive left renal lit hiasis. ??No ureteral lithiasis or bladder stones noted. ?? 2) ?Normal appendix. 3) ?No other acute findings are s een on this unenhanced abdomen/pelvic CT exam. 4) ?There is little interval eid ge relative to the prior study from 08/16/05. ?? Harris James MD [employer] [employer] SONO PELVIS COMPLETE (02/18/2006 7:52 PM CDT) Anatomical Region Laterality Modality Other Specimen (Source) Anatomical Collection Method Collection Time Re ceived Time Location / / Volume Laterality 02/18/2006 7:52 PM CDT Impressions 02/18/2006 11:39 PM CDT PELVIC ULTRASOUND ? CLINICAL HISTORY: ??Left lower quadrant pain. ?? FINDINGS: ??Sonographic evaluation of e pelvis was performed using transabdominal and transvaginal approach . ??Transvaginal assessment was utilized to better see the uterus, o varies and endometrium. ? The uterus was seen in the midline and a ppeared normal. ??Endometrial stripe is normal measuring 12 mm. ??Righ t ovary is unremarkable. ??Left ovary is showing a hypoechoic area measu ring 1.8 x 1.5 x 1.6 cm. ?? This is most likely a complex ovarian cy st. ??Sonographic follow-up to ensure clearing, however, is recommended . ??There is good vascular flow seen to both ovaries indicating no sign of torsion. ? No other adnexal masses or fluid collect ions are noted. ?? CONCLUSION: ??A 1.8 cm hypoechoic area w ithin the left ovary. ??This likely represents a complex cyst. ??A tu boovarian abscess would be unlikely without any other reactive eid ges such as free fluid in the pelvis. ??Endometrioma is part of the di fferential. ??Sonographic follow-up to ensure clearing is recommen ded. Harris James MD [employer]IES documented in this encounter Visit Diagnoses Not on filedocumented in this encounter Care Teams Packer Inspector Relationship Specialty Start Date End Date Melvin Palacios MD PCP - General 06/22/99 09/20/10 [address] [id number] documented as of this encounter
--- OUTSIDE RECORDS SUMMARY | 2022-04-02 12:50 | XMS_ITS | Encounter Summary ---
:1975 Author Organization [facility] Address [address] [place] [address] Care Team Providers Name Role Phone Melvin Palacios MD Primary Care Provider Reason for Visit Reason Comments Cough x 4 wks- also would like to have xanax refilled Encounter Details Date Type Department Care Team Description 06/03/2007 Office Visit [facility] Melvin Palacios MD ANXIETY STATE NOS; Clinic [address] ACUTE BRONCHITIS; [address] [place] [address] ACUTE [place] [address] [phone] (Wo rk) Social History Tobacco Use Types Packs/Day Years Used Date Smoking Tobacco: Former Alcohol Use Standard Drinks/Week Comments Yes 0 (1 standard drink = 0.6 oz pure alcoho l) social Sex Assigned at Date Recorded Not on file documented as of this encounter Last Filed Vital Signs Vital Sign Reading Time Taken Comments Blood Pressure 102/72 06/03/2007 10:00 AM ELECTRONIC REPAIR TROUBLESHOOTER Pulse - - Temperature 37 ??C (98.6 ??F) 06/03/2007 10:00 AM ELECTRONIC REPAIR TROUBLESHOOTER Respiratory Rate - - Oxygen Saturation - - Inhaled Oxygen Concentration - - Weight 78 kg (172 lb) 06/03/2007 10:00 AM ELECTRONIC REPAIR TROUBLESHOOTER Height 167.6 cm (5' 6) 06/03/2007 10:00 AM ELECTRONIC REPAIR TROUBLESHOOTER Body Mass Index 27.76 06/03/2007 10:00 AM ELECTRONIC REPAIR TROUBLESHOOTER documented in this encounter Progress Notes Melvin Palacios - 06/03/2007 10:22 AM CST SUBJECTIVE: Dariana Osman is a 31 year old female who complains of coryza, productive cough, (cough is keeping awake at night), chest congestion and hard to take deep breath for 12 days. She denies a history ofno other unusual symptoms and denies a history of asthma. Patient does not smoke cigarettes. OBJECTIVE: She appears well, vital signs are as noted by the nurse. Ears normal. Throat and pharynx normal. Neck supple. No adenopathy in the neck. Nose is congested. Sinuses non tender. The chest is clear, without wheezes or rales. ASSESSMENT: Bronchitis and Bronchospasm PLAN: After d/w pt regarding risks and benefits as well as possible side effects, drug interactions and adverse reactions, pt accepts prescription for zithromax and prednisone per hs orders. Symptomatic therapy suggested: push fluids, rest and use vaporizer or mist needed . Call or return to clinic prn if these symptoms worsen or fail to improve as anticipated. TRONIC REPAIR TROUBLESHOOTER documented in this encounter Nursing Notes 06/03/2007 10:00 AM CST >> BRENDA COX 06/03/2007 10:00 am Patient presents with: Cough - x 4 wks- also would like to have xanax refilled Initial BP 102/72 Temp (Src) 98.6 (Oral) Ht 5' 6 (1.68m) Wt 172 lbs (78.0kg) Body mass index is 27.77 kg/(m^2).. BP completed using cuff size regular Brenda Cox CMA documented in this encounter Plan of Treatment Not on filedocumented as of this encounter Visit Diagnoses Diagnosis Anxiety state, unspecified Acute bronchitis Acute bronchospasm documented in this encounter Care Teams Assistant Chief Of Police Relationship Specialty Start Date End Date Melvin Palacios MD PCP - General 06/22/99 09/20/10 [address] [id number] documented as of this encounter
--- OUTSIDE RECORDS SUMMARY | 2022-04-02 12:50 | XMS_ITS | Encounter Summary ---
:1975 Author Organization [employer] Address [address] [place] [address] Care Team Providers Name Role Phone Melvin Palacios MD Primary Care Provider Encounter Details Date Type Department Care Team Description 08/21/2006 Results Only [facility] Will Zacarias, Hospital [place] [address] Social History Tobacco Use Types Packs/Day Years Used Date Smoking Tobacco: Former Alcohol Use Standard Drinks/Week Comments Yes 0 (1 standard drink = 0.6 oz pure alcoho l) social Sex Assigned at Date Recorded Not on file documented as of this encounter Plan of Treatment Not on filedocumented as of this encounter Procedures Procedure Name Priority Date/Time Associated Diagnosis Comme [facility] CT ABDOMEN W/O Routine 08/21/2006 11:08 PM Res ults for this CONTRAST CDT procedure are i n the results section. documented in this encounter Results CT SCAN ABDOMEN (08/21/2006 11:08 PM CDT) Anatomical Region Laterality Modality Other Specimen (Source) Anatomical Collection Method Collection Time Re ceived Time Location / / Volume Laterality 08/21/2006 11:08 PM CDT Impressions 08/22/2006 6:47 PM CDT Exam: CT ABDOMEN/PELVIS WITHOUT CONTRAST * Aug 21, 2006 11:08:00 PM Indication: ??Bilateral flank pain, kidn ey stone. ?? Technique: 5 mm images through the kidne ys, ureters and bladder without contrast per renal stone protoco l. Comparison: CT dated 02/18/2006. Findings: Tiny bilateral renal calculi i ncluding three stones in the left kidney and one in the lower pole of the right kidney. No hydronephrosis. The tiny right renal sto ne is new. No other urinary calculi. 1.7 cm cyst or follicle right a dnexal region likely a physiologic ovarian cyst. No other acute findings within limits of a noncontrast CT. Impression: 1. Tiny bilateral renal calculi, more nu merous on the left. No hydronephrosis. 2. Small cyst/follicle right ovary, like ly physiologic. Preliminary report relayed to referring physician by radiologist manager loss prevention. Will Zacarias MD [employer]IES documented in this encounter Visit Diagnoses Not on filedocumented in this encounter Care Teams Relay Telegrapher Relationship Specialty Start Date End Date Melvin Palacios MD PCP - General 06/22/99 09/20/10 [address] [id number] documented as of this encounter
--- OUTSIDE RECORDS SUMMARY | 2022-04-02 12:50 | XMS_ITS | Encounter Summary ---
:1975 Author Organization [facility] Address [address] [place] [address] Care Team Providers Name Role Phone Melvin Palacios MD Primary Care Provider Encounter Details Date Type Department Care Team Description 02/18/2006 Historic Results [facility] Jana Palacios MD [place] [address] [place] [address] (W ork) [id number] [phone] Social History Tobacco Use Types Packs/Day Years Used Date Smoking Tobacco: Former Alcohol Use Standard Drinks/Week Comments Yes 0 (1 standard drink = 0.6 oz pure alcoho l) social Sex Assigned at Date Recorded Not on file documented as of this encounter Plan of Treatment Not on filedocumented as of this encounter Procedures Procedure Name Priority Date/Time Associated Comments Diagnosis WET PREPARATION Routine 02/18/2006 7:00 PM Result s for this CDT procedure are i n the results section. NEISSERIA GONORRHOEAE Routine 02/18/2006 7:00 PM Results for this PCR CDT procedure are i n the results section. CHLAMYDIA TRACHOMATIS Routine 02/18/2006 7:00 PM Results for this PCR CDT procedure are i n the results section. HEMOGRAM DIFFERENTIAL STAT 02/18/2006 6:45 PM Results for this AND PLATELET CDT procedure are i n the results section. HCG QUALITATIVE STAT 02/18/2006 6:45 PM Result s for this CDT procedure are i n the results section. BASIC METABOLIC PANEL STAT 02/18/2006 6:45 PM Results for this CDT procedure are i n the results section. HCG QUALITATIVE URINE STAT 02/18/2006 6:13 PM Results for this CDT procedure are i n the results section. ROUTINE UA WITH STAT 02/18/2006 6:13 PM Result s for this MICROSCOPIC CDT procedure are i n the results section. documented in this encounter Results Chlamydia trachomatis PCR (02/18/2006 7:00 PM CDT) Component Value Ref Test Analysis Performed At [facility] Range Method Time Signature Specimen Cervical MISYS Description Chlamydia Negative for C. MISYS Trachomatis PCR trachomatis rRNA by crusher feeder mediated amplification. Comment: A negative result by crusher feeder medi ated amplification does not preclude the presence of C. trachomatis infection be cause results are dependent on proper and adequate collection, absence of inh ibitors, and sufficient rRNA to be detected. Specimen Anatomical Collection Method Collection Time Receive d Time (Source) Location / / Volume Laterality 02/18/2006 7:00 PM 6 7:06 CDT PM CDT Melvin Palacios MD LAB - MICRO GENERAL ORDERABL ES Performing Organization Address City/State/ZIP Code Phon e Number MISYS Neisseria gonorrhoeae PCR (02/18/2006 7:00 PM CDT) [facility] Method Time Signature Specimen Cervical MISYS Descrip N Gonorrhea Negative for N. MISYS PCR gonorrhoeae rRNA by crusher feeder mediated amplification. Comment: A negative result by crusher feeder medi ated amplification does not preclude the presence of N. gonorrhoeae infection be cause results are dependent on proper and adequate collection, absence of inh ibitors, and sufficient rRNA to be detected. Specimen Anatomical Collection Method Collection Time Receive d Time (Source) Location / / Volume Laterality 02/18/2006 7:00 PM 6 7:06 CDT PM CDT Melvin Palacios MD LAB - MICRO GENERAL ORDERABL ES Performing Organization Address City/State/ZIP Code Phon e Number MISYS Wet prep (02/18/2006 7:00 PM CDT) [facility] Method Time Signature Specimen Vagina MISYS Description Micro Report FINAL MISYS Status [id number] Wet Prep Many PMNs MISYS seen Comment: No yeast seen No Trichomonas seen No clue cells seen Specimen Anatomical Collection Method Collection Time Receive d Time (Source) Location / / Volume Laterality 02/18/2006 7:00 PM 6 7:06 CDT PM CDT Melvin Palacios MD LAB - MICRO GENERAL ORDERABL ES Performing Organization Address City/State/ZIP Code Phon e Number MISYS Hemogram differential and platelet (02/18/2006 6:45 PM CDT) [facility] gist Method Time Signature MCV 90 78 - 100 MISYS fl MCH 30.3 26.5 - MISYS 33.0 pg MCHC 33.7 32.0 - MISYS 36.0 g/dL RDW 11.5 10.0 - MISYS 15.0 % WBC 7.1 4.0 - MISYS 11.0 10e9/L RBC Count 4.25 3.8 - 5.2 MISYS 10e12/L Hemoglobin 12.9 11.7 - MISYS 15.7 g/dL Hematocrit 38.3 35.0 - MISYS 47.0 % % Neutrophils 57 40 - 75 % MISYS % Lymphocytes 30 20 - 48 % MISYS % Monocytes 7 0 - 12 % MISYS % Eosinophils 5 0 - 6 % MISYS % Basophils 1 0 - 2 % MISYS Platelet Count 271 150 - 450 MISYS 10e9/L Absolute 4.0 1.6 - 8.3 MISYS Neutrophil 10e9/L Absolute 2.1 0.8 - 5.3 MISYS Lymphocytes 10e9/L Absolute 0.5 0.0 - 1.3 MISYS Monocytes 10e9/L Absolute 0.4 0.0 - 0.7 MISYS Eosinophils 10e9/L Absolute 0.1 0.0 - 0.2 MISYS Basophils 10e9/L Diff Method Automated MISYS Method Specimen Anatomical Collection Method Collection Time Receive d Time (Source) Location / / Volume Laterality 02/18/2006 6:45 PM 6 6:36 CDT PM CDT Harris James MD LAB - BLOOD ORDERABLES Performing Organization Address City/State/ZIP Code Phon e Number MISYS Basic metabolic panel (02/18/2006 6:45 PM CDT) athologist Signature Sodium 140 133 - 144 MISYS mmol/L Potassium 4.2 3.4 - 5.3 MISYS mmol/L Chloride 105 94 - 109 MISYS mmol/L Carbon Dioxide 27 20 - 32 MISYS mmol/L Glucose 80 60 - 110 MISYS mg/dL Urea Nitrogen 10 5 - 24 MISYS mg/dL Creatinine 0.87 0.60 - MISYS 1.30 mg/dL GFR Estimate 82 >60 MISYS mL/min/1.7 m2 GFR Estimate If >90 >60 MISYS Black mL/min/1.7 m2 Calcium 8.9 8.5 - 10.4 MISYS mg/dL Anion Gap 8 6 - 17 MISYS mmol/L Specimen Anatomical Collection Method Collection Time Receive d Time (Source) Location / / Volume Laterality 02/18/2006 6:45 PM 6 6:36 CDT PM CDT Harris James MD LAB - BLOOD ORDERABLES Performing Organization Address City/[facility] Code Phon e Number MISYS HCG qualitative (02/18/2006 6:45 PM CDT[facility] Time Signature HCG Qualitative Negative NEG MISYS Serum Specimen Anatomical Collection Method Collection Time Receive d Time (Source) Location / / Volume Laterality 02/18/2006 6:45 PM 6 6:36 CDT PM CDT Harris James MD LAB - BLOOD ORDERABLES Performing Organization Address City/State/ZIP Code Phon e Number MISYS (ABNORMAL) Routine UA with microscopic (02/18/2006 6:13 PM CDT) [facility] Method Time Signature Source Midstream MISYS Urine Color Urine Yellow MISYS Appearance Urine Clear MISYS Glucose Urine Negative NEG mg/dL MISYS Bilirubin Urine Negative NEG MISYS Ketones Urine Negative NEG mg/dL MISYS Specific [place] 1.018 1.003 - MISYS Urine 1.035 Blood Urine Small (A) NEG MISYS pH Urine 5.0 5.0 - 7.0 MISYS pH Protein Albumin Negative NEG mg/dL MISYS Urine Urobilinogen Normal 0.0 - 2.0 MISYS mg/dL mg/dL Nitrite Urine Negative NEG MISYS Leukocyte Negative NEG MISYS Esterase Urine WBC Urine 1 0 - 2 MISYS /HPF RBC Urine 10 (H) 0 - 2 MISYS /HPF Squamous 1 0 - 1 MISYS Epithelial /HPF /HPF Urine Specimen Anatomical Collection Method Collection Time Receive d Time (Source) Location / / Volume Laterality 02/18/2006 6:13 PM 6 6:13 CDT PM CDT Harris James MD LAB - URINE ORDERABLES Performing Organization Address City/[facility]/ZIP Code Phon e Number MISYS HCG qualitative urine (02/18/2006 6:13 PM CDT) P athologist Signature HCG Qual Urine Negative NEG MISYS Specimen Anatomical Collection Method Collection Time Receive d Time (Source) Location / / Volume Laterality 02/18/2006 6:13 PM 6 6:13 CDT PM CDT Harris James MD LAB - URINE ORDERABLES Performing Organization Address City/[facility]/ZIP Code Phon e Number MISYS documented in this encounter Visit Diagnoses Not on filedocumented in this encounter Care Teams Technology Applications Teacher Relationship Specialty Start Date End Date Melvin Palacios MD PCP - General 06/22/99 09/20/10 [address] [id number] documented as of this encounter
--- OUTSIDE RECORDS SUMMARY | 2022-04-02 12:50 | XMS_ITS | Encounter Summary ---
:1975 Author Organization [facility] Address [address] [place] [address] Care Team Providers Name Role Phone Melvin Palacios MD Primary Care Provider Encounter Details Date Type Department Care Team Description 08/16/2005 Historic Results INTERFACED REPORT Pau Moreno [address] [place] [address] Social History Tobacco Use Types Packs/Day Years [...] Associated Comments Diagnosis HCG QUALITATIVE URINE STAT 08/16/2005 8:15 PM Results for this FERMENTATION SCIENTIST procedure are i n the results section. ROUTINE UA WITH STAT 08/16/2005 8:15 PM Result s for this MICROSCOPIC FERMENTATION SCIENTIST procedure are i n the results section. documented in this encounter Results (ABNORMAL) Routine UA with microscopic (08/16/2005 8:15 PM FERMENTATION SCIENTIST) [facility] Method Time Signature Source Midstream MISYS Urine Color Urine Yellow MISYS Appearance Urine Clear MISYS Glucose Urine Negative NEG mg/dL MISYS Bilirubin Urine Negative NEG MISYS Ketones Urine 5 (A) NEG mg/dL MISYS Specific [place] 1.019 1.003 - MISYS Urine 1.035 Blood Urine Small (A) NEG MISYS pH Urine 6.0 5.0 - 7.0 MISYS pH Protein Albumin 10 (A) NEG mg/dL MISYS Urine Urobilinogen Normal 0.0 - 2.0 MISYS mg/dL mg/dL Nitrite Urine Negative NEG MISYS Leukocyte Negative NEG MISYS Esterase Urine WBC Urine 2 0 - 2 MISYS /HPF RBC Urine 21 (H) 0 - 2 MISYS /HPF Hyaline Casts 1 0 - 2 MISYS /LPF Squamous 2 (H) 0 - 1 MISYS Epithelial /HPF /HPF Urine Bacteria Urine Few (A) NEG /HPF MISYS Mucous Urine Present (A) NEG /LPF MISYS Specimen Anatomical Collection Method Collection Time Receive d Time (Source) Location / / Volume Laterality 08/16/2005 8:15 PM 6 8:19 FERMENTATION SCIENTIST PM FERMENTATION SCIENTIST Giovani Robertsench LAB - URINE ORDERABLES Performing Organization Address City/[facility]/ZIP Code Phon e Number MISYS HCG qualitative urine (08/16/2005 8:15 PM FERMENTATION SCIENTIST) P athologist Signature HCG Qual Urine Negative NEG MISYS Specimen Anatomical Collection Method Collection Time Receive d Time (Source) Location / / Volume Laterality 08/16/2005 8:15 PM 6 8:19 FERMENTATION SCIENTIST PM FERMENTATION SCIENTIST Giovani Moreno LAB - URINE ORDERABLES Performing Organization Address City/[facility] Phon e Number MISYS documented in this encounter Visit Diagnoses Not on filedocumented in this encounter Care Teams Consulting Sme Relationship Specialty Start Date End Date Melvin Palacios MD PCP - General 06/22/99 09/20/10 [address] [id number] documented as of this encounter
--- OUTSIDE RECORDS SUMMARY | 2022-04-02 12:50 | XMS_ITS | Encounter Summary ---
:1975 Author Organization [facility] Address [address] [place] [address] Care Team Providers Name Role Phone Melvin Palacios MD Primary Care Provider Reason for Visit Reason Comments RECHECK medication Refill Request Encounter Details Date Type Department Care Team Description 01/22/2005 Office Visit [facility] [place] Z[facility]ox [facility] (Primary Dx) [address] [phone] [phone] Social History Tobacco Use Types Packs/Day Years Used Date Smoking Tobacco: Every Day Comments: socially Alcohol Use Standard Drinks/Week Comments Yes 0 (1 standard drink = 0.6 oz pure alcoho l) social Sex Assigned at Date Recorded Not on file documented as of this encounter Last Filed Vital Signs Vital Sign Reading Time Taken Comments Blood Pressure 124/70 01/22/2005 11:45 AM CDT Pulse - - Temperature - - Respiratory Rate - - Oxygen Saturation - - Inhaled Oxygen Concentration - - Weight 73.9 kg (163 lb) 01/22/2005 11:45 AM CDT Height 170.2 cm (5' 7) 01/22/2005 11:45 AM CDT Body Mass Index 25.53 01/22/2005 11:45 AM CDT documented in this encounter Progress Notes Tobi Beltranle - 01/22/2005 12:58 PM CDT Dariana Osman presents to clinic today to f/u on depression. She restarted Wellbutrin XL 300mg daily approximately 2 1/2 months ago. Dariana reports excellent control of depression sxs since medication restart. She initially had headaches, at the 150mg dose. Headaches resolved with 300mg dose. No other adverse medication SE. She has been through counseling (single and with ) and reports that homelife is generally going well. Dariana denies any thoughts of self harm. Denies any suicidal or homicidal thoughts. Denies any manic behavior or other unusual behaviors since re-starting Wellbutrin medication. Her insurance has poor coverage for Wellbutrin XL but they will cover Wellbutrin SR. Pt would like to try switch. OBJECTIVE: BP 124/70 Ht 5' 7 (1.70m) Wt 163 lbs (73.9kg) GENERAL: Very pleasant, comfortable and generally well appearing. PSYCH: Mood is very upbeat today. Thought content is logical, organized and appropriate throughout the interview today. ASSESSMENT/PLAN: 311 DEPRESSIVE DISORDER NEC (primary encounter diagnosis) Note: Excellent control. Plan: WELLBUTRIN XL 300MG, WELLBUTRIN XL 300MG, WELLBUTRIN SR 150 MG OR TBCR, WELLBUTRIN SR 150 MG OR TBCR Rx x 1 year given. F/u sooner if any mood problems or medication problems. documented in this encounter Nursing Notes 01/22/2005 11:45 AM CDT >> AGUSTIN DYER 01/22/2005 11:57 am Dariana Osman presents for f/u on medication and refill request. Initial BP 124/70 Ht 5' 7 (1.70m) Wt 163 lbs (73.9kg) Body Mass Index is 25.52 kg/(m^2).. BP completed using cuff size: regular Agustin Dyer CMA documented in this encounter Plan of Treatment Not on filedocumented as of this encounter Visit Diagnoses Diagnosis Depressive disorder, not elsewhere class ified - Primary documented in this encounter Care Teams Supervisor Functional Testing Relationship Specialty Start Date End Date Melvin Palacios MD PCP - General 06/22/99 09/20/10 [address] [phone] documented as of this encounter
--- OUTSIDE RECORDS SUMMARY | 2022-04-02 12:50 | XMS_ITS | Encounter Summary ---
:1975 Author Organization [facility] Address [address] [place] [address] Care Team Providers Name Role Phone Melvin Palacios MD Primary Care Provider Encounter Details Date Type Department Care Team Description 08/21/2006 Historic Results INTERFACED REPORT Paul Zacarias [place] [address] Social History Tobacco Use Types Packs/Day Years Used Date Smoking Tobacco: Former Alcohol Use Standard Drinks/Week Comments Yes 0 (1 standard drink = 0.6 oz pure alcoho l) social Sex Assigned at Date Recorded Not on file documented as of this encounter Plan of Treatment Not on filedocumented as of this encounter Procedures Procedure Name Priority Date/Time Associated Comments Diagnosis COMPREHENSIVE STAT 08/21/2006 10:30 Results fo r this METABOLIC PANEL PM CDT procedure ar e in the results section. HCG QUALITATIVE URINE STAT 08/21/2006 9:58 PM Results for this CDT procedure are i n the results section. ROUTINE UA WITH STAT 08/21/2006 9:58 PM Result s for this MICROSCOPIC CDT procedure are i n the results section. documented in this encounter Results Comprehensive metabolic panel (08/21/2006 10:30 PM CDT) P athologist Signature Sodium 140 133 - 144 MISYS mmol/L Potassium 3.6 3.4 - 5.3 MISYS mmol/L Chloride 101 94 - 109 MISYS mmol/L Carbon Dioxide 30 20 - 32 MISYS mmol/L Glucose 71 60 - 110 MISYS mg/dL Urea Nitrogen 11 5 - 24 MISYS mg/dL Creatinine 0.87 0.60 - MISYS 1.30 mg/dL GFR Estimate 82 >60 MISYS mL/min/1.7 m2 GFR Estimate If >90 >60 MISYS Black mL/min/1.7 m2 Calcium 9.1 8.5 - 10.4 MISYS mg/dL AST 17 0 - 45 U/L MISYS Protein Total 7.6 6.0 - 8.2 MISYS g/dL Anion Gap 8 6 - 17 MISYS mmol/L Albumin 4.5 3.3 - 4.6 MISYS g/dL ALT 21 0 - 50 U/L MISYS Alkaline 51 40 - 150 MISYS Phosphatase U/L Bilirubin Total 0.2 0.2 - 1.3 MISYS mg/dL Specimen Anatomical Collection Method Collection Time Receive d Time (Source) Location / / Volume Laterality 08/21/2006 10:30 08/21/2006 PM CDT 10:46 PM CDT Will Zacarias MD LAB - BLOOD ORDERABLES Performing Organization Address City/State/[facility] Phon e Number MISYS (ABNORMAL) Routine UA with microscopic (08/21/2006 9:58 PM CDT) Component Value Ref Test Analysis Performed At [facility] Range Method Time Signature Source Unspecified MISYS Urine Color Urine Straw MISYS Appearance Urine Clear MISYS Glucose Urine Negative NEG MISYS mg/dL Bilirubin Urine Negative NEG MISYS Ketones Urine Negative NEG MISYS mg/dL Specific [place] 1.001 (L) 1.003 - MISYS Urine 1.035 Blood Urine Negative NEG MISYS pH Urine 6.0 5.0 - MISYS 7.0 pH Protein Albumin Negative NEG MISYS Urine mg/dL Urobilinogen Normal 0.0 - MISYS mg/dL 2.0 mg/dL Nitrite Urine Negative NEG MISYS Leukocyte Negative NEG MISYS Esterase Urine WBC Urine <1 0 - 2 MISYS /HPF RBC Urine <1 0 - 2 MISYS /HPF Squamous <1 0 - 1 MISYS Epithelial /HPF /HPF Urine Specimen Anatomical Collection Method Collection Time Receive d Time (Source) Location / / Volume Laterality 08/21/2006 9:58 PM 7 CDT 10:46 PM CDT Will Zacarias MD LAB - URINE ORDERABLES Performing Organization Address City/State/ZIP Code Phon e Number MISYS HCG qualitative urine (08/21/2006 9:58 PM CDT) P athologist Signature HCG Qual Urine Negative NEG MISYS Specimen Anatomical Collection Method Collection Time Receive d Time (Source) Location / / Volume Laterality 08/21/2006 9:58 PM 7 CDT 10:46 PM CDT Will Zacarias MD LAB - URINE ORDERABLES Performing Organization Address City/[facility] Phon e Number MISYS documented in this encounter Visit Diagnoses Not on filedocumented in this encounter Care Teams Sex Therapist Relationship Specialty Start Date End Date Melvin Palacios MD PCP - General 06/22/99 09/20/10 [address] [id number] documented as of this encounter
--- OUTSIDE RECORDS SUMMARY | 2022-04-02 12:50 | XMS_ITS | Encounter Summary ---
:1975 Author Organization [facility] Address [address] [place] [address] Care Team Providers Name Role Phone Melvin Palacios MD Primary Care Provider Reason for Visit Reason Comments RECHECK follow-up on effexpaty - nandini jones for the anxiety, fatigue during the day - very low engery, HAYES - discuss if side effects could be due to stress Encounter Details Date Type Department Care Team Description 05/28/2005 Office Visit [facility] [place] VE DISORDER NEC; [facility] [place] ZENON Maddox HEADACHE [address] [place] [id number] Social History Tobacco Use Types Packs/Day Years Used Date Smoking Tobacco: Every Day Comments: socially Alcohol Use Standard Drinks/Week Comments Yes 0 (1 standard drink = 0.6 oz pure alcoho l) social Sex Assigned at Date Recorded Not on file documented as of this encounter Last Filed Vital Signs Vital Sign Reading Time Taken Comments Blood Pressure 104/72 05/28/2005 10:30 AM CATERPILLAR OPERATOR Pulse - - Temperature - - Respiratory Rate - - Oxygen Saturation - - Inhaled Oxygen Concentration - - Weight 71.7 kg (158 lb) 05/28/2005 10:30 AM CATERPILLAR OPERATOR Height 170.2 cm (5' 7) 05/28/2005 10:30 AM CATERPILLAR OPERATOR Body Mass Index 24.75 05/28/2005 10:30 AM CATERPILLAR OPERATOR documented in this encounter Progress Notes Tobi Beltran - 05/28/2005 10:49 AM CST Dariana Osman is here for evaluation of headaches and anxiety. HEADAHES: Dariana has been experiencing significant headaches over the past several months. Character: bitemporal throbbing. Intensity: 6-7/10. Frequency: 2/month (one every 2 weeks). Triggers: No known triggers. Pt notes that sxs did begin after starting Effexor for anxiety. Associated sxs: Light sensitivity, nausea (no vomiting). OTC meds are not helping. She has no previous hx of frequent headaches or migraine headaches. FMHX MIGRAINE: Mom and brother. ANXIETY: Dariana notes that Effexor is working extremely well. She does report some somnulence. However,she also notes taht the somnulence may be related to a child waking her from sleep 3-4x/night. Noother adverse SE. Denies any thoughts of self harm. Denies any suicidal or homicidal thoughts. Denies any manic behavior or other unusual behaviors since starting medication. GENERAL: Very pleasant, comfortable and generally well appearing. NEURO: PERRLA. Alert and oriented. Undilated fundoscopic exam within normal limits. CN II/XII grossly intact. Gait within normal limits. UE/LE strength, DTR's and sensation to light touch good and equal bilaterally. Normal [id number] testing. Normal Rhomberg and pronator drift testing. PSYCH: Mood is good. Thought content is logical, organized and appropriate throughout the interview today. ASSESSMENT/PLAN: 311 DEPRESSIVE DISORDER NEC Note: Anxiety. Good relief of sxs. Possible SE as noted above. Plan: EFFEXOR XR 75 MG OR CP24 Pt prefers to continue same medication for now. Will try to switch Effexor to p.m. dosing to see ifthis improves daytime energy level. 784.0 HEADACHE Note: Migraine features. Plan: IMITREX 50 MG OR TABS Keep headache diary. Recheck in 1 month. Try to I.D. any potential migraine triggers. Educational handout regarding migraines and migraine triggers given. F/u in 1 month for recheck. RPILLAR OPERATOR documented in this encounter Nursing Notes 05/28/2005 10:30 AM CST >> KELLI ANTONIO 05/28/2005 10:34 am Patient presents with: RECHECK - follow-up on effexor - working for the anxiety, fatigue during the day - very low engery,HAYES - discuss if side effects could be due to stress Initial BP 104/72 Ht 5' 7 (1.70m) Wt 158 lbs (71.7kg) Body Mass Index is 24.74 kg/(m^2).. BP completed using cuff size regular. Kelli Antonio, Associate Professor Of Kinesiology documented in this encounter Plan of Treatment Not on filedocumented as of this encounter Visit Diagnoses Diagnosis Depressive disorder, not elsewhere class ified Headache(784.0) Headache documented in this encounter Care Teams Consulting Psychologist Relationship Specialty Start Date End Date Melvin Palacios MD PCP - General 06/22/99 09/20/10 [address] [id number] documented as of this encounter
--- OUTSIDE RECORDS SUMMARY | 2022-04-02 12:50 | XMS_ITS | Encounter Summary ---
:1975 Author Organization [place] Address [address] [facility] [address] Care Team Providers Name Role Phone Melvin Palacios MD Primary Care Provider Encounter Details Date Type Department Care Team Description 08/16/2005 Emergency room Giovani Moreno [address] [place] [address] Social History Tobacco Use Types Packs/Day Years Used Date Smoking Tobacco: Every Day Comments: socially Alcohol Use Standard Drinks/Week Comments Yes 0 (1 standard drink = 0.6 oz pure alcoho l) social Sex Assigned at Date Recorded Not on file documented as of this encounter Progress Notes Interface, Auditing Specialist - 08/19/2005 6:33 AM NET MAKING SUPERVISOR FINAL CHIEF COMPLAINT: I have left flank and left lower quadrant pain. HISTORY OF PRESENT ILLNESS: This 29-year-old female presents with a 2 day history of left lower quadrant, left flank pain. States it worsened today and it has been difficult moving around. She rates the pain as a 6-7/10. She had prior kidney stones. She cannot really remember what they were like as this was when she was a teenager. She has no fever, headache, cough or problems breathing, no sore throat and no chest pain. She does have this back and abdominal pain, no nausea or vomiting and no pain when she urinates or blood in urine and no vaginal bleeding. Her last menstrual period end this past Friday. REVIEW OF SYSTEMS: Ten-point review of systems is negative except as noted in her HPI. PAST MEDICAL HISTORY: Significant for kidney stones. MEDICATIONS: None. ALLERGIES: Codeine and IV dye. SOCIAL HISTORY: Nonsmoker. PHYSICAL EXAMINATION: VITAL SIGNS: Blood pressure 117/75, pulse 88, respirations 18, temperature 97.4 and room air sats 100%. GENERAL: She is an awake, alert, nontoxic female sitting upright. HEENT: Sclerae nonicteric. She has good eye contact. LUNGS: Clear. HEART: Regular rate and rhythm. ABDOMEN: Soft and nondistended. She has mild left lower quadrant tenderness. No peritoneal signs orguarding. She has left CVA tenderness. EXTREMITIES: Without cyanosis or edema. SKIN: Without petechiae or rash. NEUROLOGIC: She is awake and alert. Neurologically, no focal deficits. LABORATORY AND RADIOGRAPHIC EXAMINATION: Urinalysis reveals small blood. She was 21 and RBCs, negative test. CT scan of her abdomen and pelvis without contrast was obtained which shows no evidence of hydronephrosis or hydroureter. She has several small renal stones bilaterally. There is no free fluid seen and her bladder and pelvic structures were normal. EMERGENCY DEPARTMENT COURSE: IV access was established. She was given a liter of normal saline. Shewas given 30 mg of Toradol. Her pain went from a 5 to a 4 range. She was also given 1 mg of Dilaudidand a subsequent 1 mg of Dilaudid. I talked with her about her CT results and given no other etiology and with this hematuria this is likely still a small ureteral stone and possibly not picked up on these 5 mm slices. I talked with her about having her return with fever, vomiting or worsening pain. She is to take Percocet at home. She was given standard warnings regarding the Percocet and told to follow-up with primary doctor on Friday. PROVISIONAL DIAGNOSIS: 1. Acute left flank pain with hematuria. 2. Probable left ureteral stone. Electronically signed on 08/19/2005 06:33 by GIOVANI MORENO MD MT: [id number] Name: DARIANA VALDEZ Account: [id number] : 1975 Visit Date: 08/16/2005 Document: [id number] MAKING SUPERVISOR Interface, Auditing Specialist - 08/18/2005 4:15 AM NET MAKING SUPERVISOR PRELIMINARY CHIEF COMPLAINT: I have left flank and left lower quadrant pain. HISTORY OF PRESENT ILLNESS: This 29-year-old female presents with a 2 day history of left lower quadrant, left flank pain. States it worsened today and it has been difficult moving around. She rates the pain as a 6-7/10. She had prior kidney stones. She cannot really remember what they were like as this was when she was a teenager. She has no fever, headache, cough or problems breathing, no sore throat and no chest pain. She does have this back and abdominal pain, no nausea or vomiting and no pain when she urinates or blood in urine and no vaginal bleeding. Her last menstrual period end this past Friday. REVIEW OF SYSTEMS: Ten-point review of systems is negative except as noted in her HPI. PAST MEDICAL HISTORY: Significant for kidney stones. MEDICATIONS: None. ALLERGIES: Codeine and IV dye. SOCIAL HISTORY: Nonsmoker. PHYSICAL EXAMINATION: VITAL SIGNS: Blood pressure 117/75, pulse 88, respirations 18, temperature 97.4 and room air sats 100%. GENERAL: She is an awake, alert, nontoxic female sitting upright. HEENT: Sclerae nonicteric. She has good eye contact. LUNGS: Clear. HEART: Regular rate and rhythm. ABDOMEN: Soft and nondistended. She has mild left lower quadrant tenderness. No peritoneal signs orguarding. She has left CVA tenderness. EXTREMITIES: Without cyanosis or edema. SKIN: Without petechiae or rash. NEUROLOGIC: She is awake and alert. Neurologically, no focal deficits. LABORATORY AND RADIOGRAPHIC EXAMINATION: Urinalysis reveals small blood. She was 21 and RBCs, negative test. CT scan of her abdomen and pelvis without contrast was obtained which shows no evidence of hydronephrosis or hydroureter. She has several small renal stones bilaterally. There is no free fluid seen and her bladder and pelvic structures were normal. EMERGENCY DEPARTMENT COURSE: IV access was established. She was given a liter of normal saline. Shewas given 30 mg of Toradol. Her pain went from a 5 to a 4 range. She was also given 1 mg of Dilaudidand a subsequent 1 mg of Dilaudid. I talked with her about her CT results and given no other etiology and with this hematuria this is likely still a small ureteral stone and possibly not picked up on these 5 mm slices. I talked with her about having her return with fever, vomiting or worsening pain. She is to take Percocet at home. She was given standard warnings regarding the Percocet and told to follow-up with primary doctor on Friday. PROVISIONAL DIAGNOSIS: 1. Acute left flank pain with hematuria. 2. Probable left ureteral stone. GIOVANI MORENO MD MT: [id number] Name: DARIANA VALDEZ Account: [id number] : 1975 Visit Date: 08/16/2005 Document: [id number] MAKING SUPERVISOR documented in this encounter Plan of Treatment Not on filedocumented as of this encounter Visit Diagnoses Not on filedocumented in this encounter Care Teams Car Shifter Relationship Specialty Start Date End Date Melvin Palacios MD PCP - General 06/22/99 09/20/10 [address] [id number] documented as of this encounter
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
--- OUTSIDE RECORDS SUMMARY | 2022-04-02 12:50 | XMS_ITS | Encounter Summary ---
:1975 Author Organization [place] Address [address] [place] [address]. [place] [address] Care Team Providers Name Role Phone Melvin Palacios MD Primary Care Provider Encounter Details Date Type Department Care Team Description 08/16/2005 Orders Only [facility] NOT YET [facility] [place] ZENON Maddox DEFINED (Primary Dx) [address] [facility] [address] [place] [phone] Social History Tobacco Use Types Packs/Day Years [...] Name Priority Date/Time Associated Diagnosis Comme nts ABSTRACT [facility] REPORT Routine 08/16/2005 DIAGNOSIS NOT YET DEFINED documented in this encounter Results ABSTRACT [facility]ARE REPORT (08/16/2005) Specimen (Source) Anatomical Location Collection Method / Collectio n Time Received Time / Laterality Volume 08/16/2005 Narrative This result has an attachment that is no t available. Tobi West PA-C LABORATORY Performing Organization Address City/State/ZIP Code Phon e Number MISYS documented in this encounter Visit Diagnoses Diagnosis DIAGNOSIS NOT YET DEFINED - Primary documented in this encounter Care Teams Marketing Finance Specialist Relationship Specialty Start Date End Date Melvin Palacios MD PCP - General 06/22/99 09/20/10 [address] [id number] documented as of this encounter
--- OUTSIDE RECORDS SUMMARY | 2022-04-02 12:50 | XMS_ITS | Encounter Summary ---
:1975 Author Organization [place] Address [address] [place] [address] Care Team Providers Name Role Phone Melvin Palacios MD Primary Care Provider Reason for Visit Reason Onset Date Comments Refill Request 06/13/2005 effexor xr Encounter Details Date Type Department Care Team Description 06/13/2005 Refill [facility] efill Request (effexor [place] ZENON Maddox xr) [address] [place] [phone] (Wo rk) Social History Tobacco Use Types Packs/Day Years Used Date Smoking Tobacco: Every Day Comments: socially Alcohol Use Standard Drinks/Week Comments Yes 0 (1 standard drink = 0.6 oz pure alcoho l) social Sex Assigned at Date Recorded Not on file documented as of this encounter Miscellaneous Notes Telephone Encounter - Maricarmen Anne - 06/13/2005 4:28 PM CST Last OV:05-28-05 Reason:depression Provider:ITA Last Refill:05-10-05 refill ok'd PSO. Maricarmen Geller RN BUILDER documented in this encounter Plan of Treatment Not on filedocumented as of this encounter Visit Diagnoses Diagnosis Depressive disorder, not elsewhere class ified documented in this encounter Care Teams Denture Processor Relationship Specialty Start Date End Date Melvin Palacios MD PCP - General 06/22/99 09/20/10 [address] [phone] documented as of this encounter
--- OUTSIDE RECORDS SUMMARY | 2022-04-02 12:50 | XMS_ITS | Encounter Summary ---
:1975 Author Organization [place] Address [address] [facility] [place] [address] Care Team Providers Name Role Phone Melvin Palacios MD Primary Care Provider Reason for Visit Reason Onset Date Comments Patient Request 02/20/2005 Wants to switch from Wellbutrin to Effexor Slk Encounter Details Date Type Department Care Team Description 02/20/2005 Telephone [facility] Tobi West Patient Request (Wants [facility] [place] ZENON Maddox to switch from [address] [place] [address] Wellbutrin to Effexor [place], [place] Slk) [phone] Social History Tobacco Use Types Packs/Day Years Used Date Smoking Tobacco: Every Day Comments: socially Alcohol Use Standard Drinks/Week Comments Yes 0 (1 standard drink = 0.6 oz pure alcoho l) social Sex Assigned at Date Recorded Not on file documented as of this encounter Miscellaneous Notes Telephone Encounter - Maricarmen Anne - 02/21/2005 9:26 AM CDT called and spoke with pt, let her know to stop wellbutrin, start Effexor and enoch with AW in 3 weeks. agrees to treatment. Maricarmen Geller RN Telephone Encounter - Nemesio Mcguire - 02/20/2005 5:08 PM CDT ok to just stop it then start the effexor the next day see tobi three weeks or prn see me sooner Telephone Encounter - Esmer Cavanaugh - 02/20/2005 4:20 PM CDT Pt. called and said that she is on Wellbutrin and said that she is very irrational and doesn't like the way she is behaving on this med, she said that every little thing bothers her. She would like to switch Effexor. Please call her on her cell # [phone]. Or work number [phone].Tobi Westis on vac. so I will send this to Dr. Mcguire.Esmer Cavanaugh RN. documented in this encounter Plan of Treatment Not on filedocumented as of this encounter Visit Diagnoses Diagnosis Depressive disorder, not elsewhere class ified - Primary documented in this encounter Care Teams Cold Strip Feeder Relationship Specialty Start Date End Date Melvin Palacios MD PCP - General 06/22/99 09/20/10 [address] [id number] documented as of this encounter
--- OUTSIDE RECORDS SUMMARY | 2022-04-02 12:50 | XMS_ITS | Encounter Summary ---
:1975 Author Organization [place] Address [address] [place] [address] Care Team Providers Name Role Phone Melvin Palacios MD Primary Care Provider Encounter Details Date Type Department Care Team Description 04/01/2007 Abstract [facility] Abstract, Provider Asha falcon Stencil Machine Operator [facility] [place] [address] [place] [address] Social History Tobacco Use Types Packs/Day Years Used Date Smoking Tobacco: Former Alcohol Use Standard Drinks/Week Comments Yes 0 (1 standard drink = 0.6 oz pure alcoho l) social Sex Assigned at Date Recorded Not on file documented as of this encounter Plan of Treatment Not on filedocumented as of this encounter Procedures Procedure Name Priority Date/Time Associated Diagnosis Comme nts HCL LDL-CHOLESTEROL Routine 04/01/2007 DIAGNOSIS NOT YET Res ults for this DEFINED procedure are i n the results section . ABSTRACT PAP (HIM Routine 04/01/2007 DIAGNOSIS NOT YET EXTERNAL RESULT) DEFINED HCL TSH Routine 04/01/2007 DIAGNOSIS NOT YET Results fo r this DEFINED procedure are i n the results section . HCL GLUCOSE Routine 04/01/2007 DIAGNOSIS NOT YET Results fo r this DEFINED procedure are i n the results section . HCL TRIGLYCERIDES Routine 04/01/2007 DIAGNOSIS NOT YET Resul ts for this DEFINED procedure are i n the results section . HCL HDL CHOLESTEROL Routine 04/01/2007 DIAGNOSIS NOT YET Res ults for this DEFINED procedure are i n the results section . HCL CHOLESTEROL Routine 04/01/2007 DIAGNOSIS NOT YET Results for this DEFINED procedure are i n the results section . documented in this encounter Results ABSTRACT PAP-NO CHARGE (04/01/2007) Specimen (Source) Anatomical Location Collection Method / Collectio n Time Received Time / Laterality Volume 04/01/2007 Narrative This result has an attachment that is no t available. Provider Abstract LAB - HIM EXTERNAL RESULT TSH [[id number]] (04/01/2007) P athologist Signature TSH 2.56@ mcU/mL MISYS Provider Abstract LABORATORY Performing Organization Address [facility]/[place]IP [facility] Number [place] GLUCOSE [[id number]] (04/01/2007) P athologist Signature Glucose 77@ mg/dL MISYS Provider Abstract LABORATORY Performing Organization Address [facility] Phon e Number MISYS TRIGLYCERIDES [[id number]] (04/01/2007) P athologist Signature Triglycerides 113@ mg/dL MISYS Provider Abstract LABORATORY Performing Organization Address [facility] Phon e Number MISYS HDL CHOLESTEROL [[id number]] (04/01/2007) P athologist Signature HDL Cholesterol 46@ mg/dL MISYS Provider Abstract LABORATORY Performing Organization Address [facility] Phon e Number MISYS LDL-CHOLESTEROL [[id number]] (04/01/2007) P athologist Signature LDL Cholesterol 66@ mg/dL MISYS Calculated Provider Abstract LABORATORY Performing Organization Address [facility] Phon e Number MISYS CHOLESTEROL [[id number]] (04/01/2007) P athologist Signature Cholesterol 135@ 115 - 199 MISYS mg/dL Provider Abstract LABORATORY Performing Organization Address [facility] Phon e Number MISYS documented in this encounter Visit Diagnoses Diagnosis DIAGNOSIS NOT YET DEFINED - Primary documented in this encounter Care Teams Protective Signal Installer Relationship Specialty Start Date End Date Melvin Palacios MD PCP - General 06/22/99 09/20/10 [address] [id number] documented as of this encounter
--- OUTSIDE RECORDS SUMMARY | 2022-04-02 12:50 | XMS_ITS | Encounter Summary ---
:1975 Author Organization [place] Address [address] [place] [address] Care Team Providers Name Role Phone Melvin Palacios MD Primary Care Provider Reason for Visit Reason Comments Medication Request Encounter Details Date Type Department Care Team Description 03/07/2005 Office Visit [facility]obi [place] VE DISORDER [facility] [place] ZENON Maddox NEC (Primary Dx) [address] [address] [phone] Social History Tobacco Use Types Packs/Day Years Used Date Smoking Tobacco: Every Day Comments: socially Alcohol Use Standard Drinks/Week Comments Yes 0 (1 standard drink = 0.6 oz pure alcoho l) social Sex Assigned at Date Recorded Not on file documented as of this encounter Last Filed Vital Signs Vital Sign Reading Time Taken Comments Blood Pressure 112/60 03/07/2005 11:15 AM CDT Pulse - - Temperature - - Respiratory Rate - - Oxygen Saturation - - Inhaled Oxygen Concentration - - Weight 71.7 kg (158 lb) 03/07/2005 11:15 AM CDT Height 170.2 cm (5' 7) 03/07/2005 11:15 AM CDT Body Mass Index 24.75 03/07/2005 11:15 AM CDT documented in this encounter Progress Notes Tobi Beltran - 03/07/2005 12:50 PM CDT Dariana Osman presents to clinic today to f/u on depression, following recent medication change. She D/c'd Wellbutrin and started Efexxor XR. She has been on the 75mg dose now for approximately 3 weeks with excellent relief of sxs. She previously felt somewhat irritable and snappy on Wellbutrin. That has now resolved. She deniesany other adverse medication SE. Dariana denies any thoughts of self harm. Denies any suicidal or homicidal thoughts. Denies any manic behavior or other unusual behaviors since starting medication. OBJECTIVE: BP 112/60 Ht 5' 7 (1.70m) Wt 158 lbs (71.7kg) GENERAL: Very pleasant, comfortable and generally well appearing. PSYCH: Mood is good. Thought content logical, organized and appropriate throughout the interview today. ASSESSMENT/PLAN: 311 DEPRESSIVE DISORDER NEC (primary encounter diagnosis) Plan: EFFEXOR XR 75 MG OR CP24 Rx x 3 months for same. Call to discuss depression control and screen for adverse SE in 3 months. Will extend rx per that phone conversation. documented in this encounter Nursing Notes 03/07/2005 11:15 AM CDT >> SAM AVALOS 03/07/2005 10:59 am Dariana Osman presents for medication check. Initial BP 112/60 Ht 5' 7 (1.70m) Wt 158 lbs (71.7kg) Body Mass Index is 24.74 kg/(m^2).. BP completed using cuff size: regular Karol Avalos [employer] documented in this encounter Plan of Treatment Not on filedocumented as of this encounter Visit Diagnoses Diagnosis Depressive disorder, not elsewhere class ified - Primary documented in this encounter Care Teams Inspector Integrated Circuits Relationship Specialty Start Date End Date Melvin Palacios MD PCP - General 06/22/99 09/20/10 [address] [id number] documented as of this encounter
--- OUTSIDE RECORDS SUMMARY | 2022-04-02 12:50 | XMS_ITS | Encounter Summary ---
:1975 Author Organization [facility] Address [address] [place] [address]. [place] [address] Care Team Providers Name Role Phone Melvin Palacios MD Primary Care Provider Reason for Visit Reason Onset Date Comments Patient Inquiry 07/24/2004 Encounter Details Date Type Department Care Team Description 07/24/2004 Telephone [facility] Tobi West atient Inquiry Withams ZENON Maddox [address] [place] [address] N [id number] [phone] Social History Tobacco Use Types Packs/Day Years Used Date Smoking Tobacco: Never Alcohol Use Standard Drinks/Week Comments Yes 0 (1 standard drink = 0.6 oz pure alcoho l) social Sex Assigned at Date Recorded Not on file documented as of this encounter Miscellaneous Notes Telephone Encounter - Melissa Pickett - 07/27/2004 1:25 PM CST Pt informed. Melissa Pickett RN D SERVICE SUPERVISOR Telephone Encounter - Tobi Beltran - 07/26/2004 8:25 PM FIELD SERVICE SUPERVISOR please call Dariana know that I sent 1 year rx of OrthoTriCyclen to [facility]. If she would prefer to go back to the patch for any particular reason, I would be happy to change rx. I attempted to reachher coburn, but she was unavailable. D SERVICE SUPERVISOR Telephone Encounter - Sridevi Magallon - 07/26/2004 9:56 AM CST Wanted to know if Tobi could Rx some control for her-mostly to regulate my hormones. She states that her moods are so up and down. She is currently on Wellbutrin but is going to go off of this as is not working for her. 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 Used to be on Ortho Tri Cyclen and then Ortho Evra. Is going to be coming in on Friday with her son, she said she could talk to you at this time too ifyou needed her to. Sridevi Magallon RN D SERVICE SUPERVISOR Telephone Encounter - 07/24/2004 10:20 AM FIELD SERVICE SUPERVISOR Staff Message copied by PAU FRANKLIN on 07/24/2004 at 10:20 AM ------ Message from: DILLON RODAS Created: 07/24/2004 at 10:05 AM Regarding: AW-pres [phone] Wants to get a pres for regulating hormones.....ALso has a question about Wellbutrin D SERVICE SUPERVISOR documented in this encounter Plan of Treatment Not on filedocumented as of this encounter Visit Diagnoses Diagnosis Other general counseling and advice for contraceptive management - Primary documented in this encounter Care Teams Campus Recruiting Intern Relationship Specialty Start Date End Date Melvin Palacios MD PCP - General 06/22/99 09/20/10 [address] [id number] documented as of this encounter
--- OUTSIDE RECORDS SUMMARY | 2022-04-02 12:50 | XMS_ITS | Encounter Summary ---
:1975 Author Organization [place] Address [address] [facility] [place] [address] Care Team Providers Name Role Phone Melvin Palacios MD Primary Care Provider Encounter Details Date Type Department Care Team Description 02/18/2006 Emergency room Harris Mcmahan MD [facility] [address] [place], [place] [address] (Wo rk) Social History Tobacco Use Types Packs/Day Years Used Date Smoking Tobacco: Former Alcohol Use Standard Drinks/Week Comments Yes 0 (1 standard drink = 0.6 oz pure alcoho l) social Sex Assigned at Date Recorded Not on file documented as of this encounter Progress Notes Harris Mcmahan - 03/16/2006 4:22 PM CDT FINAL CHIEF COMPLAINT: Left side pain in front. 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 She says her back hurts on the left side a little bit but mainly in the left frontal region, down low, she says next to my ovary. It started about 3:00 p.m. It came on reasonably suddenly in the left lower quadrant. She has had no history of ovarian cysts. She has had some nausea with it, no vomiting. Last normal bowel movement this morning, no color change, no symptoms. Last normal menstrual period mid January. She has had no abdominal surgery ever. She is 4, para 2002. Walking makes it worse, bet ter with palpation. PAST MEDICAL HISTORY: Kidney stones as above, depression, migraine. MEDICATIONS: Lexapro, Imitrex. ALLERGIES: Intolerant to codeine. SOCIAL HISTORY: Works in [employer] as above, nursing agency manager. Nonsmoker, occasional alcohol. She had a vaginal delivery 2001 and 2003. at home, 2 children. REVIEW OF SYSTEMS: See HPI. All other systems negative. OBJECTIVE: VITAL SIGNS: Temperature is 97, heart rate 70, respiratory rate 16, blood pressure 124/71, room airsat 100% CONSTITUTIONAL: Appears stated age, alert and oriented x3. HEENT: PERRLA, EOMI, moderately uncomfortable. TMs clear. Pharynx is clear. Moist oral mucosa. Nares patent. NECK: No adenopathy. CARDIOVASCULAR: Regular S1 and S2, no added sounds. RESPIRATORY: Increased work of breathing. LUNGS: Clear. GASTROINTESTINAL: Abdomen soft, but tender in the left lower quadrant. No involuntary guarding or rebound tenderness. BACK: No CV angle tenderness. PELVIC: Revealed normal-appearing vaginal vault, no blood. Cervix appeared slightly friable with a little bit of bleeding in the cervical mucosa, not around the os. Cervical os appears closed and clear of any discharge. No cervical motion tenderness on exam. Uterus palpated to be small orange size. Ri ght adnexa and ovary nonpalpable but no fullness or masses palpable. Left ovary area is tender to palpation, no fullness or masses palpated. EMERGENCY ROOM COURSE: IV established, normal saline 1 liter bolus given, Toradol 30 mg IV, Zofran 4 mg IV and MS 4 mg IV with near complete relief of her pain. GC and chlamydia pending. Wet prep negative except for many PMNs. She has had no vaginal discharge. HCG is negative. Basic metabolic profilenormal. CBC with differential normal. test negative. Urine, 10 red cells, small blood. An ultrasound revealed a 1.8 cm hypoechoic area within the left ovary. This likely represents a complex cyst. A tubal ovarian abscess would be unlikely without any reactive changes, such as free fluid in the pelvis. Endometrioma is part of the differential. Sonographic followup to ensure clearing is recomm ended. PLAN: Because the patient still had blood in her urine and she had been moderately uncomfortable, anoncontrast spiral CT stone study was done to rule out kidney stone. I spoke with the patient and since I do not think that a 1.8 cm cyst without any free fluid could be causing the pain that she has been having, or could be entirely response for it, I am going to get a noncontrast spiral CT since shedoes have blood in her urine. If this is negative, then she will go home with instructions that I have already written up, which is ibuprofen 600 mg p.o. q.8h. with food. Add Vicodin 1-2 p.o. q.4-6h. p.r.n. pain. Follow with INSURANCE LOSS ADJUSTER for reevaluation in the next 7 days. Return for fever, new symptoms orworse symptoms. If it is a stone, will also her strain all urine, keep stone and take to her PMD. Electronically signed on 03/16/2006 16:22 by HARRIS MCMAHAN MD MT: [id number] Name: DARIANA VALDEZ MRN: [id number] Account: [id number] : 1975 Visit Date: 02/18/2006 Document: [id number] cc: [facility] documented in this encounter Plan of Treatment Not on filedocumented as of this encounter Visit Diagnoses Not on filedocumented in this encounter Care Teams Industrial Arts Teacher Relationship Specialty Start Date End Date Melvin Palacios MD PCP - General 06/22/99 09/20/10 [address] [id number] documented as of this encounter
--- OUTSIDE RECORDS SUMMARY | 2022-04-02 12:50 | XMS_ITS | Encounter Summary ---
:1975 Author Organization [facility] Address [address] [place] [address] Care Team Providers Name Role Phone Melvin Palacios MD Primary Care Provider Reason for Visit Reason Onset Date Comments Refill Request 11/12/2005 lexapro samples, not due to come in for follow up for 2 months Encounter Details Date Type Department Care Team Description 11/12/2005 Refill [facility] Melvin Palacios MD Refill Request (lexapro [facility] [place] [address] samples, not due to come [id number] [place] [address] in for follow up for 2 [place] [address] months) [phone] Social History Tobacco Use Types Packs/Day Years Used Date Smoking Tobacco: Former Alcohol Use Standard Drinks/Week Comments Yes 0 (1 standard drink = 0.6 oz pure alcoho l) social Sex Assigned at Date Recorded Not on file documented as of this encounter Miscellaneous Notes Telephone Encounter - Hiwot Avalos - 11/12/2005 10:31 AM CDT Pt requesting samples of Lexapro 10mg. Pt last seen 10/12 and due to come back in 2 months. 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 Karol Avalos LPN documented in this encounter Plan of Treatment Not on filedocumented as of this encounter Visit Diagnoses Diagnosis Adjustment disorder with depressed mood Generalized anxiety disorder Depressive disorder, not elsewhere class ified documented in this encounter Care Teams Mulcher Operator Relationship Specialty Start Date End Date Melvin Palacios MD PCP - General 06/22/99 09/20/10 [address] [id number] documented as of this encounter
--- OUTSIDE RECORDS SUMMARY | 2022-04-02 12:51 | XMS_ITS | Encounter Summary ---
:1975 Author Organization [place] Address [address] [facility] [place] [address] Care Team Providers Name Role Phone Melvin Palacios MD Primary Care Provider Reason for Visit Reason Comments Medication Request prozac Encounter Details Date Type Department Care Team Description 11/15/2002 [facility] [place] (prozac ) [address] [place] [address] ISAIAS MONCADA [facility] [phone] [facility] [phone] [place], [place] [address] (Wo rk) Social History Tobacco Use Types Packs/Day Years Used Date Smoking Tobacco: Never Assessed Sex Assigned at Date Recorded Not on file documented as of this encounter Miscellaneous Notes Telephone Encounter - 11/15/2002 11:59 PM CDT >> DAMARI Goldman Nov 16, 2002 8:57 AM pt. states she was already notified. Nikolas Bowman CLINICAL ANALYST >> SRIDEVI MAGALLON FriNov 15, 2002 4:43 PM LMTCB to [facility] desk. Sridevi Magallon RN >> DARLINE QUEEN FriNov 15, 2002 3:33 PM O.K. to increase dose, will do for 3mos and then should reevaluate. Tiff >> DESIRE BISHOP [facility] Nov 15, 2002 1:57 PM Started prozac 20 mgs 09/02/00, last visit c Dr Otero on 11/04/02 for stomach prob. She states meds not working as well anymore, more emotional and breaking down, irritable, family noticing more irritable, less patient with child. Feels like she's plateaued, would like to double the dose and see if that helps. Desire Bishop RN >> CARLOS MARQUEZ FriNov 15, 2002 11:32 AM >> CALL RECEIVED. Contact: >> CARLOS MARQUEZ FriNov 15, 2002 11:31 AM Staff Message copied by CARLOS MARQUEZ on 11/15/2002 at 11:31 AM ------ Message from: SIDNEY HAMMER Created: 11/15/2002 at 8:57 AM Regarding: TM ??S about higher dose prozac/dmo Pt on 20 mg prozac wants to up the dose/ please cll to discuss #[id number]/ chart requested documented in this encounter Plan of Treatment Not on filedocumented as of this encounter Visit Diagnoses Not on filedocumented in this encounter Care Teams Brace End Mainspring Former Relationship Specialty Start Date End Date Melvin Palacios MD PCP - General 06/22/99 09/20/10 [address] [id number] documented as of this encounter
--- OUTSIDE RECORDS SUMMARY | 2022-04-02 12:51 | XMS_ITS | Encounter Summary ---
:1975 Author Organization [facility] Address [address] [place] [address]. [place] [address] Care Team Providers Name Role Phone Melvin Palacios MD Primary Care Provider Reason for Visit Reason Comments Refill Request Encounter Details Date Type Department Care Team Description 03/23/2003 Refill [facility] Edilia Carlos PA-C Refill Request [address] [place], [place] [phone] Social History Tobacco Use Types Packs/Day Years Used Date Smoking Tobacco: Never Assessed Sex Assigned at Date Recorded Not on file documented as of this encounter Miscellaneous Notes Telephone Encounter - 03/23/2003 11:59 PM CDT >> EDILIA CARLOS [facility] Mar 24, 2003 4:43 PM Rx faxed. Tiff >> DAMARI Cruz Mar 23, 2003 9:46 AM >> CALL RECEIVED. Contact: Pt. is requesting to go down to 20 mg of prozac, pharmacy in place. Nikolas Bowman CMA documented in this encounter Plan of Treatment Not on filedocumented as of this encounter Visit Diagnoses Not on filedocumented in this encounter Care Teams Mailing Section Clerk Relationship Specialty Start Date End Date Melvin Palacios MD PCP - General 06/22/99 09/20/10 [address] [id number] documented as of this encounter
--- OUTSIDE RECORDS SUMMARY | 2022-04-02 12:51 | XMS_ITS | Encounter Summary ---
:1975 Author Organization [facility] Address [address] [place] [address] Care Team Providers Name Role Phone Melvin Palacios MD Primary Care Provider Reason for Visit Reason Comments Consult Encounter Details Date Type Department Care Team Description 03/29/2004 Office Visit [facility] DEPRESSYobani VE DISORDER Clinic Bethany ZENON Maddox NEC (Primary Dx) [address] [facility] [address] [place] [phone] [phone] Social History Tobacco Use Types Packs/Day Years Used Date Smoking Tobacco: Never Alcohol Use Standard Drinks/Week Comments Yes 0 (1 standard drink = 0.6 oz pure alcoho l) social Sex Assigned at Date Recorded Not on file documented as of this encounter Last Filed Vital Signs Vital Sign Reading Time Taken Comments Blood Pressure 108/56 03/29/2004 10:26 AM CDT Pulse - - Temperature - - Respiratory Rate - - Oxygen Saturation - - Inhaled Oxygen Concentration - - Weight 78 kg (172 lb) 03/29/2004 10:26 AM CDT Height - - Body Mass Index - - documented in this encounter Progress Notes 03/29/2004 10:15 AM CDT Dariana Osman presents to clinic today to discuss depression. Pt has has some low level depression throughout her adult lifetime. She has had a significant increase in social stress recently and sxs are worsening. Her and mother encouraged her to f/u to discuss starting medication. Dariana's sxs include general blue mood, fatigue, crying, decreased interest in things that normally bring pleasure, increased irritabililty and some social withdrawal. She had been on Prozac previously with some relief of depression. However, she D/c'd Prozac secondary to sexual SE. No other adverse rxn to Prozac. No hx of IP tx. No hx of suicide attempts. Denies any thoughts of self harm. Denies any suicidal or homicidal thoughts. Denies any manic behavior or other unusual behaviors. OBJECTIVE: BP 108/56 Wt 172 lbs (78.0kg) GENERAL: Very pleasant, comfortable and generally well appearing. PSYCH: Mood somewhat flat affected. Otherwise, thought content logical, organized and appropriate throughout the interview today. ASSESSMENT/PLAN: 311 DEPRESSIVE DISORDER NEC (primary encounter diagnosis) Plan: WELLBUTRIN XL 150MG Samples of Wellbutrin XL (start 150mg x 1 week;then 300mg thereafter) given x 6 weeks. Pt to f/u for med check in 4-6 weeks or sooner if problems. Possible SE were reviewed with pt today. documented in this encounter Nursing Notes 03/29/2004 10:15 AM CDT >> KYLE PORTILLO 03/29/04 10:27 am Dariana Osman presents for consult on medication. Initial BP 108/56 Wt 172 lbs (78.0kg). BP completed using cuff size: large.KYLE PORTILLO CMA documented in this encounter Plan of Treatment Not on filedocumented as of this encounter Visit Diagnoses Diagnosis Depressive disorder, not elsewhere class ified - Primary documented in this encounter Care Teams Habilitation Training Specialist Relationship Specialty Start Date End Date Melvin Palacios MD PCP - General 06/22/99 09/20/10 [address] [id number] documented as of this encounter
--- OUTSIDE RECORDS SUMMARY | 2022-04-02 12:51 | XMS_ITS | Encounter Summary ---
:1975 Author Organization [facility] Address [address] [place] [address] Care Team Providers Name Role Phone Melvin Palacios MD Primary Care Provider Reason for Visit Reason Comments UTI Encounter Details Date Type Department Care Team Description 03/11/2003 Office Visit [facility] Harris Garcia DYSURIA (Primary Dx); [facility] [place] MD Otoniel SPRYOSSI SHOULDER/ARM NOS; [address] [facility] IRREGULAR MENSTRUATION [place], [place] [address] [place] [phone] [address] [place] [address] Social History Tobacco Use Types Packs/Day Years Used Date Smoking Tobacco: Never Assessed Sex Assigned at Date Recorded Not on file documented as of this encounter Last Filed Vital Signs Vital Sign Reading Time Taken Comments Blood Pressure 94/50 03/11/2003 10:00 AM CDT Pulse - - Temperature 36.9 ??C (98.5 ??F) 03/11/2003 10:00 AM CDT Respiratory Rate - - Oxygen Saturation - - Inhaled Oxygen Concentration - - Weight - - Height - - Body Mass Index - - documented in this encounter Progress Notes 03/11/2003 10:00 AM CDT SUBJECTIVE: 27 year old patient presents with chief complaint of: no period w/o contraception OBJECT JORDAN: EXAM: BP 94/50 Temp (Src) 98.5 (Oral) LMP 01/09/2003 appears comfortable ASSESSMENT/PLAN 7 88.1 DYSURIA (primary encounter diagnosis) Note: lower pelvic cramping, no period x 2 mo + upt neg 3 wks ago Plan: UA MICRO IF POSITIVE confirmed 840.9 SPRAIN SHOULDER/ARM NOS Note: r t side parascapular x 6 day, tight and painful Plan: physical measures reviewed 626.4 IRREGULAR ME NSTRUATION Note: no contraception Plan: HCG, QUAL URINE documented in this encounter Nursing Notes 03/11/2003 10:00 AM CDT >> DENA MURPHY 03/11/2003 10:04 am dysuria with back pain, onset 1 week. Dena Murphy LPN documented in this encounter Plan of Treatment Not on filedocumented as of this encounter Procedures Procedure Name Priority Date/Time Associated Diagnosis Comme nts ZZCL AFF HCG, QUAL Routine 03/11/2003 10:26 Irregular Resul ts for this URINE AM CDT Menstruation procedure are i n the results section. HCL UA MICRO IF Routine 03/11/2003 10:08 Dysuria Results for this POSITIVE AM CDT procedure are i n the results section. documented in this encounter Results (ABNORMAL) HCG, QUAL URINE (03/11/2003 10:26 AM CDT) [facility] gist Method Time Signature HCG Qual Urine Positive (A) NEG [facility] Specimen Anatomical Collection Method Collection Time Receive d Time (Source) Location / / Volume Laterality 03/11/2003 10:26 03/11/2003 AM CDT 10:27 AM CDT Harris Garcia MD LABORATORY Performing Organization Address City/State/RUST Code Phon e Number [facility] [id number] [place], [place] [phone] [facility] UA MICRO IF POSITIVE (03/11/2003 10:08 AM CDT) Analysis Performed At [facility] logist Time Signature Color Urine Yellow [place] Yellow [facility] Appearance Clear [place] Urine Clear [facility] Glucose Urine Negative NEG mg/dL [place] Negative [facility] Bilirubin Urine Negative NEG [place] Negative [facility] Ketones Urine Negative NEG mg/dL [place] Negative [facility] Specific 1.025 1.001 - [place] Urine 1.035 [facility] Comment: 1.025 Blood Urine Negative [facility]G [facility] Negative pH Urine 5.0 5.0 - 7.0 pH [facility] RI DGE [facility] Comment: 5.0 Protein Albumin Urine Negative NEG mg/dL [facility] Negative Urobilinogen Urine 0.2 0.2 - 1.0 EU/dL [facility] Comment: 0.2 Nitrite Urine Negative NEG [facility] R IDGE [facility] Negative Leukocyte Esterase Urine Negative NEG [facility] Negative Source Midstream Urine [facility] Midstream Urine Specimen Anatomical Collection Method Collection Time Receive d Time (Source) Location / / Volume Laterality 03/11/2003 10:08 03/11/2003 AM CDT 10:13 AM CDT Harris Garcia MD LABORATORY Performing Organization Address City/State/ZIP Code Phon e Number [facility] [address] [place] [address] [facility] documented in this encounter Visit Diagnoses Diagnosis Dysuria - Primary Sprain and strain of unspecified site of shoulder and upper arm Irregular menstrual cycle documented in this encounter Care Teams Presetter Operator Relationship Specialty Start Date End Date Melvin Palacios MD PCP - General 06/22/99 09/20/10 [address] [id number] documented as of this encounter
--- OUTSIDE RECORDS SUMMARY | 2022-04-02 12:51 | XMS_ITS | Encounter Summary ---
:1975 Author Organization [place] Address [address] [place] [address]. [place] [address] Care Team Providers Name Role Phone Melvin Palacios MD Primary Care Provider Encounter Details Date Type Department Care Team Description 11/16/2003 Delivery Summary [facility] Pilar Sandy, (Night Shift Manager) Night Shift Manager [address] [facility] [phone] [facility] [place] [address] [place] [address] (Wo rk) Social History Tobacco Use Types Packs/Day Years Used Date Smoking Tobacco: Never Assessed Sex Assigned at Date Recorded Not on file documented as of this encounter Miscellaneous Notes L&D Delivery Note - Pilar Sandy - 11/16/2003 12:00 AM CDT : 79 COURSE: The patient is a 28-year-old II, Para 1- 0-0-1 with an EDC of 11/15/03. She was first seen at 7 weeks gestation. She had ultrasound done which established her due date as she had an unknown last menstrual period. She had a normal ultrasound at 20 weeks gestation although a follow up ultrasound was needed to re- evaluate the renal pelvises which on follow up ultrasound was normal. She was admitted to the hospital at term in active labor. She is Group B Strep negative. LABOR: At the time of admission the patient was 6 cm dilated, artificial rupture of membranes produced clear amniotic fluid which had a very light greenish tint. First stage of labor progressed without complication, external heart rate monitoring showed a good heart rate with good variability and there were no decelerations. She received Nubain 20 mg IV for when she was 7-8 cm dilated. On 11/16/03 at 0454 the patient delivered a healthy male weighing 8 lbs. 10 oz. with Apgars of 9 at 1 minute and 9 at 5 minutes. A midline episiotomy was performed prior to delivery of the head under 1% Carbocaine local anesthesia. There are no extensions of the episiotomy. The placenta followed spontaneously, was intact and had a three vessel cord. Ten units of Pitocin was given IM following delivery of the placenta. The episiotomy was repaired in the usual manner with a running #3-0 Vicryl. Mother and infant were both stable following delivery. First stage of labor 2 hours, 35 minutes, second stage 19 minutes, third stage 7 minutes for a total labor of 3 hours and 2 minutes. [id number] _ PILAR SANDY MD MT: Document: [id number] [place], [place] Name: DARIANA VALDEZ DELIVERY SUMMARY Page 2 of 1 LCN: ASHLEY DSC: 11/18/2003 [place], [place] Name: MR#: : Admit Date: DARIANA VALDEZ [id number] 1975 11/16/2003 Doctor: PILAR SANDY MD DELIVERY SUMMARY Page 1 of 1 documented in this encounter Plan of Treatment Not on filedocumented as of this encounter Visit Diagnoses Not on filedocumented in this encounter Care Teams Water Resources Project Manager Relationship Specialty Start Date End Date Melvin Palacios MD PCP - General 06/22/99 09/20/10 [address] [id number] documented as of this encounter
--- OUTSIDE RECORDS SUMMARY | 2022-04-02 12:51 | XMS_ITS | Encounter Summary ---
:1975 Author Organization [place] Address [address] [place] [address] Care Team Providers Name Role Phone Melvin Palacios MD Primary Care Provider Encounter Details Date Type Department Care Team Description 11/04/2002 Office Visit [facility] DINORA GNOSIS NOT YET DEFINED [place] (Primary Dx) [address] [place] [address] Social History Tobacco Use Types Packs/Day Years Used Date Smoking Tobacco: Never Assessed Sex Assigned at Date Recorded Not on file documented as of this encounter Plan of Treatment Not on filedocumented as of this encounter Procedures Procedure Name Priority Date/Time Associated Diagnosis Comme nts HCL BETA STREP Routine 11/04/2002 9:28 AM DIAGNOSIS NOT YET Re sults for this CONFIRM CDT DEFINED procedure are i n the results section. HCL STREP GROUP A Routine 11/04/2002 9:28 AM DIAGNOSIS NOT YET Results for this AG (RAPID) CDT DEFINED procedure are i n the results section. documented in this encounter Results BETA STREP CONFIRM (11/04/2002 9:28 AM CDT) Component Value Ref Test Analysis Performed At [facility] gist Range Method Time Signature Specimen Throat FRESNO Description [facility] Culture Micro No Beta FRESNO Streptococcus [facility] Report status FINAL [id number] [facility] Specimen Anatomical Collection Method Collection Time Receive d Time (Source) Location / / Volume Laterality 11/04/2002 9:28 AM 3 9:33 CDT AM CDT Transcripton Interface LABORATORY Performing Organization Address City/[facility]/ZIP Code Phon e Number [facility] [id number] [place] [address] [facility] STREP GROUP A AG (RAPID) (11/04/2002 9:28 AM CDT) Component Value Ref Test Analysis Performed At [facility] Range Method Time Signature Specimen Throat FRESNO Description [facility] Rapid Strep A NEGATIVE: No Group A strepto coccal antigen detected by immunoassay, await FRESNO Screen culture report. [facility] Report status FINAL [id number] [facility] Specimen Anatomical Collection Method Collection Time Receive d Time (Source) Location / / Volume Laterality 11/04/2002 9:28 AM 3 9:33 CDT AM CDT Transcripton Interface LABORATORY Performing Organization Address [facility]/ZIP Code Phon e Number [facility] [id number] [place] [address] [facility] documented in this encounter Visit Diagnoses Diagnosis DIAGNOSIS NOT YET DEFINED - Primary documented in this encounter Care Teams Carpenter Cradle And Dolly Relationship Specialty Start Date End Date Melvin Palacios MD PCP - General 06/22/99 09/20/10 [address] [id number] documented as of this encounter
--- OUTSIDE RECORDS SUMMARY | 2022-04-02 12:51 | XMS_ITS | Encounter Summary ---
:1975 Author Organization [place] Address [address] [place] [address] Care Team Providers Name Role Phone Melvin Palacios MD Primary Care Provider Reason for Visit Reason Comments Imm/Inj record Encounter Details Date Type Department Care Team Description 10/18/1999 Telephone [facility] N Imm/Inj (record) Physicians [address] [address] Social History Tobacco Use Types Packs/Day Years Used Date Smoking Tobacco: Never Assessed Sex Assigned at Date Recorded Not on file documented as of this encounter Miscellaneous Notes Telephone Encounter - 10/18/1999 11:59 PM CDT CALL RECEIVED. Contact: Needs dates of all shots. Informed that we only have her first Hep B-date given. pt. will check wi old clinic for dates. Encouraged to come for 2nd and 3rd Hep B. - Uon Chhim Started and completed on FriOctober 18, 1999 3:14 PM documented in this encounter Plan of Treatment Not on filedocumented as of this encounter Visit Diagnoses Not on filedocumented in this encounter Care Teams Behavioral Therapy Coordinator Relationship Specialty Start Date End Date Melvin Palacios MD PCP - General 06/22/99 09/20/10 [address] [id number] documented as of this encounter
--- OUTSIDE RECORDS SUMMARY | 2022-04-02 12:51 | XMS_ITS | Encounter Summary ---
:1975 Author Organization [place] Address [address] [place] [address] Care Team Providers Name Role Phone Melvin Palacios MD Primary Care Provider Encounter Details Date Type Department Care Team Description 12/17/2002 Located Within [facility] Laly [facility] [place] ENCOUNTER--DISREGARD [address] [facility] (Primary Dx) [place] [address] Social History Tobacco Use Types Packs/Day Years Used Date Smoking Tobacco: Never Assessed Sex Assigned at Date Recorded Not on file documented as of this encounter Plan of Treatment Not on filedocumented as of this encounter Visit Diagnoses Diagnosis ERRONEOUS ENCOUNTER--DISREGARD - Primary documented in this encounter Care Teams Capacity Manager Relationship Specialty Start Date End Date Melvin Palacios MD PCP - General 06/22/99 09/20/10 [address] [id number] documented as of this encounter
--- OUTSIDE RECORDS SUMMARY | 2022-04-02 12:51 | XMS_ITS | Encounter Summary ---
:1975 Author Organization [place] Address [address] [place] [address]. [place] [address] Care Team Providers Name Role Phone Melvin Palacios MD Primary Care Provider Reason for Visit Reason Onset Date Comments Medication Request 01/25/2004 pertussis exposure, z pack Encounter Details Date Type Department Care Team Description 01/25/2004 Telephone [facility] Tobi [facility] on Request Clinic [facility] ZENON [place] ([place] [address] [address] [facility] S pack) [place] [address] [phone] Social History Tobacco Use Types Packs/Day Years Used Date Smoking Tobacco: Never Assessed Sex Assigned at Date Recorded Not on file documented as of this encounter Miscellaneous Notes Telephone Encounter - 01/25/2004 3:03 PM CDT >> DENA MURPHY Wed Jan 25, 2004 3:05 PM request z pack due to pertussis exposure. Dena Murphy LPN documented in this encounter Plan of Treatment Not on filedocumented as of this encounter Visit Diagnoses Not on filedocumented in this encounter Care Teams Sales And Marketing Intern Relationship Specialty Start Date End Date Melvin Palacios MD PCP - General 06/22/99 09/20/10 [address] [id number] documented as of this encounter
--- OUTSIDE RECORDS SUMMARY | 2022-04-02 12:51 | XMS_ITS | Encounter Summary ---
:1975 Author Organization [place] Address [address] [facility] [place] [address] Care Team Providers Name Role Phone Melvin Palacios MD Primary Care Provider Reason for Visit Reason Comments Refill Request Breanna kathleen [place] Encounter Details Date Type Department Care Team Description 02/18/2003 Refill [facility] Reed Carlos PA-C Refill Request [facility] INTEGRATIVE (Breanna kathleen [place] [address] [place] [address] ISAIAS MONCADA [facility] [address] [facility] [phone] [place], [place] [address] (Wo rk) Social History Tobacco Use Types Packs/Day Years Used Date Smoking Tobacco: Never Assessed Sex Assigned at Date Recorded Not on file documented as of this encounter Miscellaneous Notes Telephone Encounter - 02/18/2003 11:59 PM CDT >> DAMARI BOWMAN FriFeb 18, 2003 4:24 PM notified needs appt. Nikolas Bowman PRIVATE BANKER >> MELVIN PALACIOS FriFeb 18, 2003 4:14 PM needs to be seen within 1 month >> ERIKA WEBB FriFeb 18, 2003 4:02 PM >> CALL RECEIVED. Contact: LAST FILLED 01/20/03 LAST SEEN 03/15/03 Erika Webb CNA documented in this encounter Plan of Treatment Not on filedocumented as of this encounter Visit Diagnoses Not on filedocumented in this encounter Care Teams Tool And Die Maker/Designer Relationship Specialty Start Date End Date Melvin Palacios MD PCP - General 06/22/99 09/20/10 [address] [id number] documented as of this encounter
--- OUTSIDE RECORDS SUMMARY | 2022-04-02 12:51 | XMS_ITS | Encounter Summary ---
:1975 Author Organization [place] Address [address] [place] [address] Care Team Providers Name Role Phone Melvin Palacios MD Primary Care Provider Encounter Details Date Type Department Care Team Description 11/04/2002 [facility] Andreea Keita [address] [place], [place] [address] Social History Tobacco Use Types Packs/Day Years Used Date Smoking Tobacco: Never Assessed Sex Assigned at Date Recorded Not on file documented as of this encounter Plan of Treatment Not on filedocumented as of this encounter Procedures Procedure Name Priority Date/Time Associated Diagnosis Comme nts ABSTRACT PAP (HIM EXTERNAL RESULT) Routine 12/18/2001 documented in this encounter Results ABSTRACT PAP-NO CHARGE (12/18/2001) And[facility] LAB - HIM EXTERNAL RESULT documented in this encounter Visit Diagnoses Not on filedocumented in this encounter Care Teams Can Repairer Relationship Specialty Start Date End Date Melvin Palacios MD PCP - General 06/22/99 09/20/10 [address] [id number] documented as of this encounter
--- OUTSIDE RECORDS SUMMARY | 2022-04-02 12:51 | XMS_ITS | Encounter Summary ---
:1975 Author Organization [place] Address [address] [place] [address] Care Team Providers Name Role Phone Melvin Palacios MD Primary Care Provider Encounter Details Date Type Department Care Team Description 05/15/2004 Telephone [facility] [place] [address] [place] [phone] Social History Tobacco Use Types Packs/Day Years Used Date Smoking Tobacco: Never Alcohol Use Standard Drinks/Week Comments Yes 0 (1 standard drink = 0.6 oz pure alcoho l) social Sex Assigned at Date Recorded Not on file documented as of this encounter Miscellaneous Notes Telephone Encounter - 05/15/2004 10:09 AM INTERNET APPLICATION DEVELOPER >> PAU Goldman May 15, 2004 10:14 AM rx refilled x 10 days only-pt called and will make f/u appt as directed per AW last visit 03/12 Pau Franklin RN >> PAU Goldman May 15, 2004 10:09 AM Staff Message copied by PAU FRANKLIN on 05/15/2004 at 10:09 AM ------ Message from: DILLON RODAS Created: 05/15/2004 at 9:51 AM Regarding: AW-pres Prescription for Wellbutrin faxed to [facility] in [place], 300 mg. [phone] if you need to talk with her otherwise just fax this in. Needs by today if possible......tomorrow is okay too documented in this encounter Plan of Treatment Not on filedocumented as of this encounter Visit Diagnoses Diagnosis Depressive disorder, not elsewhere class ified documented in this encounter Care Teams Automotive Design Drafter Relationship Specialty Start Date End Date Melvin Palacios MD PCP - General 06/22/99 09/20/10 [address] [id number] documented as of this encounter
[2022-04-02 12:55] LABS: PCR FLU A Negative PCR FLU A (Negative); PCR FLU B Negative PCR FLU B (Negative); PCR RSV Negative PCR RSV (Negative)
[2022-04-02 12:59] LABS: Platelet Count* 400 K/uL (140-440)
[2022-04-02 13:02] LABS: Bacteria Urine Moderate; Squamous Epithelial Cell Urine Few (None-Few)
[2022-04-02 13:21] LABS: SARS PCR* Negative SARS-CoV-2 (Negative)
[2022-04-02] MEDS: HYDROmorphone 0.5 mg/0.5 ml inj IVP (14:27)
[2022-04-02 18:56] LABS: Slide Review Reflex No
== END 2022-04-02 14:54 | disposition home or self-care (01) ==
PROVIDERS: Emergency Provider Family Medicine; PCP Family Medicine
DX: K57.32 Diverticulitis of large intestine without perforation or abscess without bleeding (principal)
CPT/HCPCS: 36415; 74176; 80048; 80076; 81001; 83605; 83690; 85025; 86140; 87086; 87502; 87634; 87635; 96374; 96375; 99284; J1170; J1885; J2270; J2405; J7030

== ENCOUNTER 2022-04-11 21:01 | Emergency (ER) | payer OTHER, SELFPAY ==
[2022-04-11 21:10] VITALS: BP 136/85; PULSE 94; RESP 18; TEMP 37.2; O2SAT 99; BMI 35.7
--- NOTE | 2022-04-11 21:26 | ED.GENADULT ---
HPI - General Adult General Time Seen by Provider: 21:27 Date Seen: 04/11/22 Chief complaint: Abdominal Pain Stated complaint: pain in lower left abdomen Time Seen by Provider: 04/11/22 21:18 Source: patient Mode of arrival: ambulatory Limitations: no limitations History of Present Illness HPI narrative: Jannette is a 46-year-old female past medical history includes depression and anxiety, ADHD, migraines, presents emergency department with abdominal pain. Patient was seen here last Friday for the same, diagnosed with diverticulitis, uncomplicated, was placed on Augmentin, given Tylenol 3 for pain. Pain is usually in the left lower quadrant, constant dull ache, this is unchanged, patient developed some diarrhea multiple episodes nonbloody watery this morning. She has also had overall body aches and chills, her oral intake has decreased, she feels dehydrated, she has had associated nausea but no vomiting. She had some chicken broth today. Patient has had a hysterectomy. No other surgeries. Related Data Home Medications Medication Instructions Recorded Confirmed cholecalciferol (vitamin D3) 25 25 mcg PO DAILY 01/29/22 04/11/22 mcg (1,000 unit) tablet amoxicillin 875 mg-potassium 1 tab PO BID 04/10/22 04/11/22 clavulanate 125 mg tablet Previous Rx's Medication Instructions Recorded duloxetine 30 mg capsule,delayed 30 mg PO QDAY #90 caps 03/06/22 release (Cymbalta) methylphenidate HCl 10 mg tablet 10 mg PO BID #60 tabs 03/06/22 vancomycin 125 mg capsule 125 mg PO QID 10 days #40 caps 04/11/22 Allergies Allergy/AdvReac Type Severity Reaction Status Date / Time No Known Allergies Allergy Unknown Verified 04/10/22 13:22 Review of Systems Status of ROS: Reports: 10 or more systems reviewed and unremarkable except as noted in History and below [facility] Medical History Arthralgia of temporomandibular joint Attention deficit hyperactivity disorder (ADHD), predominantly hyperactive type (~11/2020) Calculus of kidney Chronic migraine Depression Difficulty concentrating (11/2020) History of endometriosis Insomnia Surgical History History of arthroscopy (1994) History of bilateral breast reduction surgery (2013) History of cystoscopy (2015) History of loop electrical excision procedure (LEEP) (2012) History of suburethral sling procedure (08/08/20) History of tonsillectomy (1997) History of total hysterectomy (2016) Family History (Updated 03/06/22 @ 09:07 by Arminda Nevarez MD) Paternal Grandmother Breast cancer, Onset Age: 80 Maternal Grandfather Colon cancer, Onset Age: 60 Mother Melanoma Depression Aunt Melanoma Maternal Grandmother Melanoma Father Depression Uncle Alcoholism Other Diabetes High blood pressure Stroke Social History (Updated 03/06/22 @ 16:25 by Arminda Nevarez MD) Narrative: Exercise by walking 4 times a week 2 miles Non-smoker Single, 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, 2 children Social drinker- varies Smoking Status: Never smoker Do you use any of these nicotine containing products: None How often do you have a drink containing alcohol: never How often do you have six or more drinks on one occasion: Never AUDIT-C Alcohol total score: 0 Non-prescribed substance use: denies use Little interest or pleasure in doing things: several days Feeling down, depressed, or hopeless: several days Exam Narrative: Exam Narrative: General: No obvious distress sitting comfortably, nontoxic in appearance HEENT: Tympanic membranes within normal limits, pupils equal round reactive light, extraocular muscles intact Neck: Supple full range of motion Lungs: Clear to auscultation bilaterally Heart: Normal sinus rhythm S1-S2 Abdomen: Bowel sounds present, no guarding or rebound, tender to palpation the left lower quadrant, Muscle skeletal: +5 strength upper lower extremities :Neuro a within normal limits, alert awake and oriented x3 Const: Vital Signs, click to edit/add: Vital Signs - 24 hr 04/11/22 21:10 04/11/22 21:30 04/11/22 22:26 Temperature 98.9 F 98.9 F Pulse Rate [Right Pulse Oximeter] 94 Respiratory Rate 18 Blood Pressure [Ri ght Upper Arm] 136/85 Pulse Oximetry 99 97 Oxygen Delivery Me thod Room Air 04/11/22 22:32 Temperature Pulse Rate [Right Pulse Oximeter] 87 Respiratory Rate 18 Blood Pressure [Ri ght Upper Arm] 128/89 Pulse Oximetry 97 Oxygen Delivery Me thod Room Air Course Course Hospital Course: 9:30 PM: AIDET performed. Vitals stable, workup will include IV peripheral, 0.9 normal saline bolus, 0.5 mg IV Dilaudid 4 mg IV Zofran, will obtain CBC, CRP, CMP lipase, blood culture x2,, C diff PCR and GI panel. Imaging from last Friday showed mild acute sigmoid diverticulitis. However, the sigmoid colon shows short-segment mucosal thickening and follow-up imaging after appropriate therapy would be helpful to exclude underlying mass. Reevaluation(s) Reevaluation #1: Patient was updated on her lab results, they were similar to previous, CBC showed no leukocytosis, elevated neutrophil percentage similar to previous, neutrophil number normal, mildly elevated CRP at 2.3, COVID/influenza/RSV were negative, C diff and GI panel still pending, she is feeling better after above care given. Time: 22:47 Reevaluation #2: Patient was given additional 0.5 mg IV Dilaudid for pain, C diff PCR was positive, patient given oral dose of vancomycin 125 mg, plan would be to discharge 125 mg vancomycin every 6 hours over the next 10 days, she should follow up with her primary care provider in the next 5-7 days for ER followup and recheck. Time: 23:38 Vital Signs Vital signs: Initial Vital Signs Temperature 98.9 F 04/11/22 21:10 Temperature Source Temporal Artery Scan 04/11/22 21:10 Pulse Rate 94 04/11/22 21:10 Respiratory Rate 18 04/11/22 21:10 Blood Pressure 136/85 04/11/22 21:10 Blood Pressure Mean 102 04/11/22 21:10 Blood Pressure Position Sitting 04/11/22 21:10 Pulse Oximetry 99 04/11/22 21:10 Oxygen Delivery Method 04/11/22 21:10 Vital Signs Temperature 98.9 F 04/11/22 21:10 Pulse Rate 94 04/11/22 21:10 Respiratory Rate 18 04/11/22 21:10 Blood Pressure 136/85 04/11/22 21:10 Pulse Oximetry 99 04/11/22 21:10 Oxygen Delivery Method 04/11/22 21:10 Temperature 98.9 F 04/11/22 22:26 Pulse Rate 87 04/11/22 22:32 Respiratory Rate 18 04/11/22 22:32 Blood Pressure 128/89 04/11/22 22:32 Pulse Oximetry 97 04/11/22 22:32 Oxygen Delivery Method 04/11/22 22:32 Medical Decision Making Lab Data Labs: Lab Results 04/11/22 04/11/22 04/11/22 Range/Units 21:20 21:20 21:25 WBC 7.98 (4.50-11.00) K/uL RBC 4.66 (4.00-5.20) m/uL Hgb 13.9 (12.0-16.0) gm/dL Hct 41.4 (33.0-51.0) % MCV 89 (80-100) fL MCH 30 (26-34) pg MCHC 34 (32-36) gm/dL RDW Coeff of Reg 12.4 (11.5-15.5) % Plt Count 312 (140-440) K/uL Neut % (Auto) 75.6 H (42.0-72.0) % Lymph % (Auto) 15.2 L (20-44) % [place] % (Auto) 7.8 (0.0-11.0) % Eos % (Auto) 0.6 (0.0-7.0) % Baso % (Auto) 0.5 (0.0-3.0) % Neut # (Auto) 6.00 (1.7-7.0) K/uL Lymph # (Auto) 1.20 (0.90-2.90) K/uL [place] # (Auto) 0.60 (0.00-0.90) K/UL Eos # (Auto) 0.05 (0.00-0.50) K/uL Baso # (Auto) 0.04 (0.00-0.30) K/uL Abs Immat Gran (auto) 0.02 (0.00-0.30) K/uL Imm/Tot Granulo (auto) 0.3 % Sodium 138 (135-149) mmol/L Potassium 4.1 (3.6-5.1) mmol/L Chloride 107 (96-114) mmol/L Carbon Dioxide 21 (20-32) mmol/L BUN 13 (5-24) mg/dL Creatinine 0.8 (0.5-1.5) mg/dL Estimated Creat Clear 84.01 Estimated GFR 93 ml/min Glucose 103 (60-115) mg/dL Calcium 9.5 (8.4-10.6) mg/dL Total Bilirubin 0.3 (0.1-1.5) mg/dL AST 24 (12-35) U/L ALT 23 (4-35) U/L Alkaline Phosphatase 54 (40-150) U/L C-Reactive Protein 2.3 H (0.5-1.0) mg/dL Total Protein 7.2 (6.0-8.3) g/dL Albumin 4.4 (3.3-5.0) g/dL Lipase 144 (23-300) U/L Stl C.difficile Tox PCR POSITIVE A* (Negative) St C. diff Tox Epid 027 PRESUMPTIVE NEGATIVE (Negative) SARS-CoV-2 (PCR) (Negative) Influenza Type A (PCR) (Negative) Influenza Type B (PCR) (Negative) 04/11/22 Range/Units 21:47 WBC (4.50-11.00) K/uL RBC (4.00-5.20) m/uL Hgb (12.0-16.0) gm/dL Hct (33.0-51.0) % MCV (80-100) fL MCH (26-34) pg MCHC (32-36) gm/dL RDW Coeff of Reg (11.5-15.5) % Plt Count (140-440) K/uL Neut % (Auto) (42.0-72.0) % Lymph % (Auto) (20-44) % [place] % (Auto) (0.0-11.0) % Eos % (Auto) (0.0-7.0) % Baso % (Auto) (0.0-3.0) % Neut # (Auto) (1.7-7.0) K/uL Lymph # (Auto) (0.90-2.90) K/uL [place] # (Auto) (0.00-0.90) K/UL Eos # (Auto) (0.00-0.50) K/uL Baso # (Auto) (0.00-0.30) K/uL Abs Immat Gran (auto) (0.00-0.30) K/uL Imm/Tot Granulo (auto) % Sodium (135-149) mmol/L Potassium (3.6-5.1) mmol/L Chloride (96-114) mmol/L Carbon Dioxide (20-32) mmol/L BUN (5-24) mg/dL Creatinine (0.5-1.5) mg/dL Estimated Creat Clear Estimated GFR ml/min Glucose (60-115) mg/dL Calcium (8.4-10.6) mg/dL Total Bilirubin (0.1-1.5) mg/dL AST (12-35) U/L ALT (4-35) U/L Alkaline Phosphatase (40-150) U/L C-Reactive Protein (0.5-1.0) mg/dL Total Protein (6.0-8.3) g/dL Albumin (3.3-5.0) g/dL Lipase (23-300) U/L Stl C.difficile Tox PCR (Negative) St C. diff Tox Epid 027 (Negative) SARS-CoV-2 (PCR) Negative SARS-CoV-2 (Negative) Influenza Type A (PCR) Negative PCR FLU A (Negative) Influenza Type B (PCR) Negative PCR FLU B (Negative) Discharge Plan Discharge Clinical Impression: C. difficile diarrhea, Diverticulitis Patient Disposition: Home, Self-Care Condition: Improved Instructions: C. Diff (Clostridioides Difficile) Infection (ED) Additional Instructions: Vancomycin 125 mg four times daily for 10 days. To continue with home regimen of pain medications, to follow up with primary care provider in the next 5-7 days. Return if worsening symptoms. Activity Level: No Restrictions Prescriptions: New vancomycin 125 mg capsule 125 mg PO QID 10 Days Qty: 40 0RF No Action cholecalciferol (vitamin D3) 25 mcg (1,000 unit) tablet 25 mcg PO DAILY methylphenidate HCl 10 mg tablet 10 mg PO BID Qty: 60 0RF Rx Instructions: 1 tab breakfast and one with lunch, in person appointment August duloxetine [Cymbalta] 30 mg capsule,delayed release(DR/EC) 30 mg PO QDAY Qty: 90 1RF amoxicillin-pot clavulanate 875-125 mg tablet 1 tab PO BID Follow Up/Referrals: Arminda Nevarez MD [Primary Care Provider] - Stand Alone Forms: [email or web address] Info Instructions
[2022-04-11 21:29] LABS: Basophils Absolute Auto 0.04 K/uL (0.00-0.30); Basophils Percent Auto 0.5 % (0.0-3.0); Eosinophils Absolute Auto 0.05 K/uL (0.00-0.50); Eosinophils Percent Auto 0.6 % (0.0-7.0); Hematocrit 41.4 % (33.0-51.0); Hemoglobin* 13.9 gm/dL (12.0-16.0); Immature Granulocytes Abs Auto 0.02 K/uL (0.00-0.30); Immature Granulocytes Pct Auto 0.3 %; Lymphocytes Percent Auto 15.2 % (20-44); Mean Corpuscular HGB Conc 34 gm/dL (32-36); Mean Corpuscular Hemoglobin 30 pg (26-34); Mean Corpuscular Volume 89 fL (80-100); Monocytes Percent Auto 7.8 % (0.0-11.0); Neutrophils Percent Auto 75.6 % (42.0-72.0); Platelet Count* 312 K/uL (140-440); RDW Coefficient of Variation % 12.4 % (11.5-15.5); Red Blood Count 4.66 m/uL (4.00-5.20); Slide Review Reflex No; White Blood Count* 7.98 K/uL (4.50-11.00)
[2022-04-11 21:30] VITALS: O2SAT 97
[2022-04-11] MEDS: 0.9 % SODIUM CHLORIDE 1000 ml 1,000 ML IV ×2 (21:30)
[2022-04-11] MEDS: ONDANSETRON 2 MG/ML inj 4 MG IVP (21:32)
[2022-04-11] MEDS: HYDROmorphone 0.5 mg/0.5 ml inj IVP (21:33)
[2022-04-11 21:41] LABS: Albumin* 4.4 g/dL (3.3-5.0); Chloride* 107 mmol/L (96-114)
[2022-04-11 21:42] LABS: Potassium* 4.1 mmol/L (3.6-5.1); Sodium* 138 mmol/L (135-149)
--- OUTSIDE RECORDS SUMMARY | 2022-04-11 21:42 | XMS_ITS | Encounter Summary ---
:1975 Author Organization [place] Address [address] [place] [address]. [place] [address] Care Team Providers Name Role Phone Yony Garcia PA-C Primary Care Provider [phone] Yony Garcia PA-C Unavailable [phone] Yony Garcia PA-C Unavailable [phone] Reason for Visit Reason Onset Date Comments Refill Request 07/17/2017 Encounter Details Date Type Department Care Team Description 07/17/2017 [facility] Yony Garcia, Refill Request Sara YARBROUGH [address] [facility], [address] [place] [address] [address] [place] [address] [place] [address] [phone] Social History Tobacco Use Types Packs/Day Years [...] Telephone Encounter - Mayela Reese RN - 07/17/2017 3:47 PM CST Duplicate K DYER Telephone Encounter - Mayela Reese RN - 07/17/2017 3:47 PM SPECK DYER Message from [facility]: Original authorizing provider: ZENON Balderas VishalCasper Osman would like a refill of the following medications: DULoxetine (CYMBALTA) 60 MG EC capsule [Yony Garcia PA-C] Preferred pharmacy: [facility] SONJA AYALA - [id number] [address] Comment: K DYER documented in this encounter Plan of Treatment Not on filedocumented as of this encounter Visit Diagnoses Diagnosis Major depressive disorder, recurrent epi sode, mild (H) Major depressive disorder, recurrent epi sode, mild documented in this encounter Additional Health Concerns Assessment Noted Time PHQ-9 Depression Total Score: 2 07/18/2017 8:08 AM SPECK DYER documented as of this encounter Care Teams Foxpro Developer Relationship Specialty Start Date End Date Yony Garcia, PCP - General Physician High Climber - 01/30/17 07/23/18 Z[facility] Medical Yony Garcia, PCP - Assigned PCP 09/01/16 08/11/18 ZENON [id number] [address] [address] Yony Garcia, Assigned PCP 09/01/16 ZENON [id number] [address] [address] documented as of this encounter
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
--- OUTSIDE RECORDS SUMMARY | 2022-04-11 21:42 | XMS_ITS | Encounter Summary ---
:1975 Author Organization [facility] Address [address] [place] [address] Care Team Providers Name Role Phone Yony Garcia PA-C Unavailable [phone] Erik Rivas Primary Care Provider Yony Garcia PA-C Unavailable [phone] Reason for Visit Reason Onset Date Comments Hospital F/U 07/27/2018 Dx: right Kidney sto ne D/c 07/25/18 Encounter Details Date Type Department Care Team Description 07/27/2018 Telephone [facility] Yony Garcia sd F/U (Dx: [facility] right Kidney stone D/c [facility], [address] [place] [address] 07/25/18) [address] [place] [address] [place], [place] [phone] (Wo rk) [address] [phone] Social History Tobacco Use Types Packs/Day Years Used Date Smoking Tobacco: Former Smokeless Tobacco: Never Comments: Very Occasional Alcohol Use Standard Drinks/Week Comments Yes 0 (1 standard drink = 0.6 oz pure alcoho l) occasional Sex Assigned at Date Recorded Not on file documented as of this encounter Miscellaneous Notes Telephone Encounter - Mayela Reese RN - 07/29/2018 11:55 AM CST Hospital/TCU/ED for chronic condition Discharge Protocol Hi, my name is Mayela Reese, a registered nurse, and I am calling from [facility]. I am calling to follow up and see how things are going for you after your recent emergency visit/hospital/TCU stay. Tell me how you are doing now that you are home? Feeling much better. Discharge Instructions Let's review your discharge instructions. What is/are the follow-up recommendations? Pt. Response: f/u with PCP if no improvement or worsening. Has an appointment with your primary care provider been scheduled? Not at this time. All is good. Will follow up as I need to. When you see the provider, I would recommend that you bring your medications with you. Medications Tell me what changed about your medicines when you discharged? Changes to chronic meds? 0-1 What questions do you have about your medications? None New diagnoses of heart failure, COPD, diabetes, or [place]? No Medication reconciliation completed? Yes Was MTM referral placed (*Make sure to put transitions as reason for referral)? No Call Summary What questions or concerns do you have about your recent visit and your follow- up care? none If you have questions or things don't continue to improve, we encourage you contact us through the main clinic number (give number). Even if the clinic is not open, triage nurses are available 30/12 tohelp you. We would like you to know that our clinic has extended hours (provide information). We also have urgent care (provide details on closest location and hours/contact info) Thank you for your time and take care! Mayela Reese RN UCTION PATTERN MAKER Telephone Encounter - Mayela Reese RN - 07/28/2018 10:57 AM CST ED / Discharge Outreach Protocol Patient Contact Attempt # 1 Was call answered? No. Left message on voicemail with information to call me back. Mayela Reese RN UCTION PATTERN MAKER Telephone Encounter - Missy Rolle - 07/27/2018 1:11 PM PRODUCTION PATTERN MAKER Follow up with Urology as directed Dx: right Kidney stone No future appointments with [facility] at this time. Fady Rolle Manager Programming 07/27/18 1:21 PM UCTION PATTERN MAKER documented in this encounter Plan of Treatment Not on filedocumented as of this encounter Visit Diagnoses Not on filedocumented in this encounter Additional Health Concerns Assessment Noted Time PHQ-9 Depression Total Score: 2 07/18/2017 8:08 AM PRODUCTION PATTERN MAKER documented as of this encounter Care Teams Lighting Specialist Relationship Specialty Start Date End Date Yony Garcia PA-C PCP - Assigned PCP 09/01/16 08/11/18 [id number] [address] [id number] Erik Rivas PCP - General Family Practice 07/24/[address] [address] Yony Garcia PA-C Assigned PCP 09/01/16 02/05/20 [address] S[address] KRAUSE [id number] documented as of this encounter
--- OUTSIDE RECORDS SUMMARY | 2022-04-11 21:42 | XMS_ITS | Clinical Summary ---
:1975 Author Organization [facility] Address [address] [place] [address] Care Team Providers Name Role Phone Erik Rivas Primary Care Provider Allergies No known active allergies Medications Medication Sig Dispensed Refills Start Date End Date Status DULoxetine (CYMBALTA) Take 1 capsule (60 90 capsule 0 07/21/19 18 Active 60 MG EC mg) by mouth daily capsuleIndications: Major depressive disorder, recurrent episode, mild (H) Additional Information Patient taking differently: 90 mg Oral AT BEDTIME, Reported on 07/24/2018 ibuprofen 200 MG capsule Take 800 mg by mouth every 120 capsule 0 09/24/2017 Active 8 hours as needed for fever melatonin 3 MG tablet Take 3 mg by mouth At 0 Active Bedtime Active Problems Problem Noted Date Ureterolithiasis 07/24/2018 Renal colic 01/18/2016 Chronic migraine without aura without status migrainos us, not intractable 09/19/2015 obesity due to excess calories 06/16/2015 Major depressive disorder, recurrent episode, mild 01/2016 Family history of thyroid disease in father 07/08/2014 BMI 34.0-34.9,adult 07/08/2014 BRIGID II (cervical intraepithelial neoplasia II) 013 Overview: Formatting of this note is dif ferent from the original. 2008 NIL paps (ajk) 11/07/09 EMB - neg for dysplasia (ajk) 11/09/10 NIL pap (ajk) 11/23/12 ASC-H. 12/25/12 [place]= BRIGID 2. Referred to Ob~Medical Reviewer , Dr. Christensen 02/18/13 LEEP= Negative, R/P pap in 6 an d 12 months. Due 08/2013 and 02/201410/01/13 Dx pap= Normal. Repeat co-testi ng in 6 months. 07/08/14 Pap= Normal, Neg HPV. 1 yr co-t esting per guidelines. 07/20/15 EMB - neg for dysplasia (ajk) 11/21/16 Would consider patient to be lo st to follow-up. 12/24/16 ASCUS pap, neg HR HPV (ajk). Shira n: colp within 3 months or cotest in 1 year 02/05/17 Hysterectomy- Negative for malig glenn or dysplasia. Pap q 3 yrs for 20 years post hysterectomy per ASCCP recommendations. Source: ASCCP Practice FAQs. Patient with total hysterectomy - (cervi x removed) hx of BRIGID 2 or greater, ? continue vaginal paps every 3 years following hysterectomy in women with a hx of BRIGID 2 or worse for 20 years from treatment? . Refer to p. 9 ACOG Practice Bulletin # 131, Apr 2012. Obesity 03/11/2012 Abnormal uterine bleeding 11/09/2010 CARDIOVASCULAR SCREENING; LDL GOAL LESS THAN 160 04/08 Vitamin D deficiency 10/24/2009 Insomnia 05/19/2008 Anxiety state Overview: Problem list name updated by automated p rocess. Provider to review Resolved Problems Problem Noted Date Resolved Date MDD (major depressive disorder) 05/27/2014 06/16/19 16 Major depressive disorder, single episode, severe 12/12/2009 06/16/2015 Overview: Problem list name updated by automated p rocess. Provider to review Encounter for routine gynecological examination 2007 03/13/2011 Overview: Problem list name updated by automated p rocess. Provider to review Female stress incontinence 2007 08/14/2010 Overview: (Problem list name updated by automated process. Provider to review and confirm.) Adjustment disorder with depressed mood 11/01/2005 08/14/2010 Depressive disorder, not elsewhere classified 05/17/2004 12/12/2009 Immunizations Name Administration Dates Next Due HepB 05/19/1998 Influenza Vaccine IM > 6 months Valent IIV4 04/02/2013 (Alfuria,Fluzone) TDAP Vaccine (Adacel) 11/25/2016 Tdap (Adacel,Boostrix) 03/07/2006 Family History Medical History Relation Comments Thyroid Disease Brother 3 Diabetes Father Hypertension Father Neurologic Disorder Father Neuropathy Scleroderma Father Sjogren's Father Thyroid Disease Father Heart Disease Mother Hypertension Mother Family History Negative Other Breast Cancer Paternal Grandmother Relation Status Comments Brother 1 Alive Brother 2 Alive Brother 3 Father Alive Maternal Grandfather Maternal Grandmother Mother Alive Other Paternal Grandfather Paternal Grandmother Sister Alive Son 1 Alive Son 2 Alive Social History Tobacco Use Types Packs/Day Years Used Date Smoking Tobacco: Former Smokeless Tobacco: Never Comments: Very Occasional Alcohol Use Standard Drinks/Week Comments Yes 0 (1 standard drink = 0.6 oz pure alcoho l) occasional Sex Assigned at Date Recorded Not on file Last Filed Vital Signs Vital Sign Reading Time Taken Comments Blood Pressure 136/92 07/25/2018 5:45 PM WEB SITE SPECIALIST Pulse 72 07/25/2018 5:45 PM WEB SITE SPECIALIST Temperature 36.8 ??C (98.3 ??F) 07/25/2018 5:45 PM WEB SITE SPECIALIST Respiratory Rate 13 07/25/2018 5:45 PM WEB SITE SPECIALIST Oxygen Saturation 99% 07/25/2018 5:45 PM WEB SITE SPECIALIST Inhaled Oxygen Concentration - - Weight 94.8 kg (209 lb) 07/24/2018 6:40 PM WEB SITE SPECIALIST Height 167.6 cm (5' 6) 07/24/2018 11:33 PM WEB SITE SPECIALIST Body Mass Index 33.73 07/24/2018 6:40 PM WEB SITE SPECIALIST Plan of Treatment Health Maintenance Due Date Last Done Comments ADVANCE CARE PLANNING 1975 ANNUAL REVIEW OF HM ORDERS 1975 COVID-19 Vaccine (#1) 04/29/1978 HIV SCREENING 1992 HEPATITIS C SCREENING 10/28/1995 YEARLY PREVENTIVE VISIT 07/08/2015 07/08/2014, 10/01/2013, 11/23/2012, Additional history exists HEPATITIS B IMMUNIZATION (3 10/23/2017 08/28/2017, 05/19/19 98 of 3 - 3-dose series) PHQ-9 12/11/2017 06/13/2017, 10/31/2016, 01/30/2016, Additional history exists HPV TEST 12/25/2019 12/24/2016 PAP 12/25/2019 12/24/2016, 12/24/2016, 07/08/2014, Additional history exists INFLUENZA VACCINE (#1) 2022 03/11/2018, 04/02/2013 DTAP/TDAP/TD IMMUNIZATION 11/25/2026 11/25/2016, 03/07/2006 (3 - Td or Tdap) MIGRAINE ACTION PLAN Completed 12/18/2015 DEPRESSION ACTION PLAN Completed 11/25/2016, 07/21/2015, 05/27/2014, Additional history exists IPV IMMUNIZATION Aged Out No longer eligi ble based on patient 's age to complete this topic MENINGITIS IMMUNIZATION Aged Out No longe r eligible based on patient 's age to complete this topic Pneumococcal Vaccine: Aged Out No longer eligible Pediatrics (0 to 5 Years) based on patient's age and At-Risk Patients (6 to to co mplete this topic 64 Years) Medical Devices Implanted Type Area Eyeglass Frames Inspector Device Shelf Model / Identifier Expiration Serial / Date Lot Stent Ureteral Dbl Pigtail Inlay [id number] Stent, Left: CR BARD 04/11/2020 [id number] / Implanted: Qty: 1 on 01/18/2016 by Otoniel Soler MD at [facility] Non-Vasc Ureter INC-UROLOG[employer] / ular [id number] Explanted Type Area Eyeglass Frames Inspector Device Shelf Model / Identifier Expiration Serial / Date Lot Stent Ureteral Dbl Pigtail Inlay [id number] Stent, Left: CR BARD 07/05/2020 [id number] / Implanted: Qty: 1 Non-Vasc Ureter [employer]UR[employer] / Explanted: Qty: 1 on 01/18/2016 at [facility] u lar [id number] Insurance Payer Benefit Plan / Group Subscriber ID Effective Phone Addre ss Type Dates PREFERREDONE PREFERREDONE NON [id number] 2017-Pre [phone] [address] [facility] sent [phone] [place] [address] Dariana Valdez Personal/Famil Self 1975 [id number] y (Home) [place] [address] DARIANA VALDEZ Personal/Famil Self [address] [place] [address] y ([place]) [place] [address] Advance Directives For more information, please contact: [phone] Latest Code Status on File Code Status Date Activated Date Inactivated Comments Full Code 07/25/2018 10:18 AM Question Answer Comments Code status determined by: Discussion with patient/legal dec ision maker Code Status History Code Status Date Activated Date Inactivated Comments Full Code 07/24/2018 11:14 PM 07/25/2018 10:18 AM Question Answer Comments Code status determined by: Discussion with patient/legal dec ision maker Full Code 01/18/2016 9:35 AM 01/18/2016 7:42 PM Care Teams Superintendent Generating Plant Relationship Specialty Start Date End Date Erik Rivas PCP - General Family Practice 07/24/18 [facility] [address] [place] [address]
--- OUTSIDE RECORDS SUMMARY | 2022-04-11 21:42 | XMS_ITS | Encounter Summary ---
:1975 Author Organization [place] Address [address] [facility] [place] [address] Care Team Providers Name Role Phone Erik Rivas Primary Care Provider Yony Garcia PA-C Unavailable [phone] Reason for Visit Reason Onset Date Comments Outreach 01/02/2019 VIP MAMMO - ATT 1 Encounter Details Date Type Department Care Team Description 01/02/2019 Telephone [place] Centralized Erik Rivas Outreach ([facility] [address] [id number] [place], [place] [phone] [id number] Social History Tobacco Use Types Packs/Day Years Used Date Smoking Tobacco: Former Smokeless Tobacco: Never Comments: Very Occasional Alcohol Use Standard Drinks/Week Comments Yes 0 (1 standard drink = 0.6 oz pure alcoho l) occasional Sex Assigned at Date Recorded Not on file documented as of this encounter Miscellaneous Notes Telephone Encounter - Lowell Verdugo - 01/02/2019 4:24 PM CDT 01/02/2019 Attempt 1 Contacted patient in regards to scheduling VIP mammogram screening at on 01/11/19 Message on voicemail Patient is also due for - Preventive Health Screening PHYSICAL Comments: 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
--- OUTSIDE RECORDS SUMMARY | 2022-04-11 21:42 | XMS_ITS | Encounter Summary ---
:1975 Author Organization [facility] Address [address] [place] [id number] Care Team Providers Name Role Phone Yony Garcia PA-C Unavailable [phone] Erik Rivas Primary Care Provider Yony Garcia PA-C Unavailable [phone] Reason for Visit Reason Comments Flank Pain Encounter Details Date Type Department Care Team Description 07/24/2018 - [facility] Orion Akers MD [facility] [address] [place] [address] Right kidney stone 07/25/2018 [facility] PreOP/PostOP Andrea Dumas, DO [address] [place] [address] [address] [place] [address] Social History Tobacco Use Types Packs/Day Years [...] Comments Blood Pressure 136/92 07/25/2018 5:45 PM MICROSOFT NET DEVELOPER Pulse 72 07/25/2018 5:45 PM MI[employer]OS[employer] NET DEVELOPER Temperature 36.8 ??C (98.3 ??F) 07/25/2018 5:45 PM MI[employer]OS[employer]FT NET DEVELOPER Respiratory Rate 13 07/25/2018 5:45 PM [employer] DEVELOPER Oxygen Saturation 99% 07/25/2018 5:45 PM MICROS[employer] NET DEVELOPER Inhaled Oxygen Concentration - - Weight 94.8 kg (209 lb) 07/24/2018 6:40 PM MICROS[employer]FT NET DEVELOPER Height 167.6 cm (5' 6) 07/24/2018 11:33 PM MI[employer]OS[employer] NET DEVELOPER Body Mass Index 33.73 07/24/2018 6:40 PM MICROS[employer] NET DEVELOPER documented in this encounter Discharge Summaries Gwendolyn Iyer PA-C - 07/25/2018 10:19 AM CST [facility] Hospitalist Discharge Summary Date of Admission: 07/24/2018 Date of Discharge: 07/25/2018 Discharging Provider: Gwendolyn Iyer PA-C Discharge Diagnoses Ureterolithiasis Mood disorder Follow-ups Needed After Discharge Follow-up Appointments Follow-up and recommended labs and tests Follow up with urology as directed. Unresulted Labs Ordered in the Past 30 Days of this Admission No orders found for last 61 day(s). These results will be followed up by [facility] Course This is a 42 year-old woman with history of nephrolithiasis admitted for right flank pain and found to have right ureterolithiasis. Proceeded to urologic procedure 07/25/2018 for management with no complications. Should follow-up with urology as directed. Consultations This Hospital Stay UROLOGY IP CONSULT Code Status Full Code Time Spent on this Encounter I, Gwendolyn Iyer, personally saw the patient today and spent less than or equal to 30 minutes discharging this patient. Gwendolyn Iyer PA-C [facility] Physical Exam Vital Signs: Temp: 97.6 ??F (36.4 ??C) Temp src: Oral BP: 114/66 Pulse: 76 Heart Rate: 65 Resp: 12 SpO2: 96 % O2 Device: None (Room air) Weight: 209 lbs 0 oz Constitutional: nontoxic appearing woman sitting up in bed. Eyes: no icterus HEENT: mucous membranes moist. Respiratory: clear bilaterally Cardiovascular: RRR GI: normoactive bowel sounds Lymph/Hematologic: no bruiding or bleeding Genitourinary: no catheter Skin: warm and dry Musculoskeletal: normal muscle bulk and tone Neurologic: nonfocal Psychiatric: alert, oriented, appropriate. Primary Care Physician Erik Rivas Discharge Disposition Discharged to home Condition at discharge: Stable Significant Results and Procedures Most Recent 3 BMP's: Recent Labs Lab Test 07/25/18 0555 07/24/18 1904 01/18/16 0700 NA 142 134 137 POTASSIUM 3.9 3.8 3.8 CHLORIDE 113* 104 104 CO2 26 25 25 BUN 9 12 10 CR 0.80 0.90 0.83 ANIONGAP 3 5 8 RONAK 7.5* 8.8 8.5 GLC 99 84 103* , Results for orders placed or performed during the hospital encounter of 07/24/18 CT Abdomen Pelvis w/o Contrast Narrative CT ABDOMEN/PELVIS WITHOUT CONTRAST July 24, 2018 7:55 PM HISTORY: Right flank pain, hematuria. TECHNIQUE: Axial images with reconstructions. No IV contrast. Radiation dose for this scan was reduced using automated exposure control, adjustment of the mA and/or kV according to patient size, or iterative reconstruction technique. COMPARISON: 01/18/2016. FINDINGS: There is a 1.4 cm left renal lesion; this has fatty density consistent with an angiomyolipoma. There is right hydroureteronephrosis related to a distal ureter stone (adjacent to the UVJ) measuring 3 mm. There are two tiny right renal calculi. Impression IMPRESSION: 1. 3 mm distal right ureter stone with obstruction. 2. Small left renal angiomyolipoma. MANUEL ALMAZAN MD Discharge Orders Reason for your hospital stay You were in the hospital for flank pain related to ureteral stone. Follow-up and recommended labs and tests Follow up with urology as directed. Activity Your activity upon discharge: activity as tolerated When to contact your care team Call your urology doctor if you have any of the following: temperature greater than 101 degrees, increased pain, or difficulty emptying bladder. Full Code Diet Follow this diet upon discharge: Orders Placed This Encounter Regular Discharge Medications Current Discharge Medication List CONTINUE these medications which have NOT CHANGED Details DULoxetine (CYMBALTA) 60 MG EC capsule Take 1 capsule (60 mg) by mouth daily Qty: 90 capsule, Refills: 0 Associated Diagnoses: Major depressive disorder, recurrent episode, mild (H) ibuprofen 200 MG capsule Take 800 mg by mouth every 8 hours as needed for fever Qty: 120 capsule, Refills: 0 melatonin 3 MG tablet Take 3 mg by mouth At Bedtime Allergies No Known Allergies OSOFT NET DEVELOPER documented in this encounter Discharge Instructions Discharge InstructionsHannah Shaffer RN - 07/25/2018 4:49 PM CST CYSTOSCOPY DISCHARGE INSTRUCTIONS [facility] / UROLOGY [facility] [phone] YOU MAY GO BACK TO YOUR NORMAL DIET AND ACTIVITY, UNLESS YOUR DOCTOR TELLS YOU NOT TO. FOR THE NEXT TWO DAYS, YOU MAY NOTICE: SOME BLOOD IN YOUR URINE. SOME BURNING WHEN YOU URINATE (USE THE TOILET). AN URGE TO URINATE MORE OFTEN. BLADDER SPASMS. THESE ARE NORMAL AFTER THE PROCEDURE. THEY SHOULD GO AWAY AFTER A DAY OR TWO. TO RELIEVE THESE PROBLEMS: DRINK 6 TO 8 LARGE GLASSES OF WATER EACH DAY (INCLUDES DRINKS AT MEALS). THIS WILL HELP CLEAR THE URINE. TAKE WARM BATHS TO RELIEVE PAIN AND BLADDER SPASMS. DO NOT ADD ANYTHING TO THE BATH WATER. YOUR DOCTOR MAY PRESCRIBE PAIN MEDICINE. YOU MAY ALSO TAKE TYLENOL (ACETAMINOPHEN) FOR PAIN. CALL YOUR SURGEON IF YOU HAVE: A FEVER OVER 101 DEGREES. CHECK YOUR TEMPERATURE UNDER YOUR TONGUE. CHILLS. FAILURE TO URINATE (NO URINE COMES OUT WHEN YOU TRY TO USE THE TOILET). TRY SOAKING IN A BATHTUB FULL OF WARM WATER. IF STILL NO URINE, CALL YOUR DOCTOR. A LOT OF BLOOD IN THE URINE, OR BLOOD CLOTS LARGER THAN A NICKEL. PAIN IN THE BACK OR BELLY AREA (ABDOMEN). PAIN OR SPASMS THAT ARE NOT RELIEVED BY WARM TUB BATHS AND PAIN MEDICINE. SEVERE PAIN, BURNING OR OTHER PROBLEMS WHILE PASSING URINE. PAIN THAT GETS WORSE AFTER TWO DAYS. GENERAL ANESTHESIA OR SEDATION ADULT DISCHARGE INSTRUCTIONS SPECIAL PRECAUTIONS FOR 24 HOURS AFTER SURGERY IT IS NOT UNUSUAL TO FEEL LIGHT-HEADED OR FAINT, UP TO 24 HOURS AFTER SURGERY OR WHILE TAKING PAIN MEDICATION. IF YOU HAVE THESE SYMPTOMS; SIT FOR A FEW MINUTES BEFORE STANDING AND HAVE SOMEONE ASSIST YOU WHEN YOU GET UP TO WALK OR USE THE BATHROOM. YOU SHOULD REST AND RELAX FOR THE NEXT 24 HOURS AND YOU MUST MAKE ARRANGEMENTS TO HAVE SOMEONE STAY WITH YOU FOR AT LEAST 24 HOURS AFTER YOUR DISCHARGE. AVOID HAZARDOUS AND STRENUOUS ACTIVITIES. DO NOTMAKE IMPORTANT DECISIONS FOR [address] ANY VEHICLE OR OPERATE MECHANICAL EQUIPMENT FOR 24 HOURS FOLLOWING THE END OF YOUR SURGERY. EVEN THOUGH YOU MAY FEEL NORMAL, YOUR REACTIONS MAY BE AFFECTED BY THE MEDICATION YOU HAVE RECEIVED. DO NOT DRINK ALCOHOLIC BEVERAGES FOR 24 HOURS FOLLOWING YOUR SURGERY. DRINK CLEAR LIQUIDS (APPLE JUICE, JAVAN ROMARIO, 7-UP, BROTH, ETC.). PROGRESS TO YOUR REGULAR DIET YOU FEEL ABLE. YOU MAY HAVE A DRY MOUTH, A SORE THROAT, MUSCLES ACHES OR TROUBLE SLEEPING. THESE SHOULD GO AWAY AFTER 24 HOURS. CALL YOUR DOCTOR FOR ANY OF THE FOLLOWING: SIGNS OF INFECTION (FEVER, GROWING TENDERNESS AT THE SURGERY SITE, A LARGE AMOUNT OF DRAINAGE OR BLEEDING, SEVERE PAIN, FOUL-SMELLING DRAINAGE, REDNESS OR SWELLING. IT HAS BEEN OVER 8 TO 10 HOURS SINCE SURGERY AND YOU ARE STILL NOT ABLE TO URINATE (PASS WATER). OSOFT NET DEVELOPER documented in this encounter Medications at Time of Discharge Medication Sig Dispensed Refills Start Date End Date DULoxetine (CYMBALTA) 60 Take 1 capsule (60 90 capsule 0 05/2018 MG EC mg) by mouth daily capsuleIndications: Major depressive disorder, recurrent episode, mild (H) ibuprofen 200 MG capsule Take 800 mg by mouth 120 capsule 0 09/24/2017 every 8 hours as needed for fever melatonin 3 MG tablet Take 3 mg by mouth At 0 Bedtime documented as of this encounter Progress Notes Tobi Burgos RN - 07/25/2018 1:01 PM CST OBSERVATION PRE-OP NOTE Discharge Plan (Initial) - plan is for pt to discharge from Same Day Surgery: Yes. Discharge Order - has been entered by the attending hospitalist or P.A.: Yes. Ride Home/Caregiver - pt has someone to take them home and stay with them for 24 hours: Pt's mother-see demographics Belongings/Valuables - Will be sent to PeriOp with pt. Railroad Police Officer - Pt DOES NOT need an rollway worker.. Beta Glenys - Pt is NOT on a beta glenys. LABS Last Labs Recent Labs Lab 07/25/18 0555 POTASSIUM 3.9 BUN 9 CR 0.80 HCG - Pt had hysterectomy Abnormal Labs - N/A NPO - Pt has been NPO since 07/25/18 at 12:00 AM. Shower/Bath - PreOp shower or NAN bath has not been done on day of surgery. Consent Status (if pt unable to sign consent) - Pt able to sign OBS Nurse Completing Pre-Op Handoff: Tobi Burgos, 1:02 PM Above Pre Op Nurse Handoff Report was reviewed by: OSOFT NET DEVELOPER Connie Jerry RN - 07/24/2018 11:41 PM CST ROOM # [id number] Living Situation (if not independent, order SW consult): in [place] with nallely Facility name: salesperson pets and pet supplies: Connie hodge Activity level at baseline: Ind Activity level on admit: Ind Patient registered to observation; given Patient Bill of Rights; given the opportunity to ask questions about observation status and their plan of care. Patient has been oriented to the observation room, bathroom and call light is in place. Discussed discharge goals and expectations with patient/family. OSOFT NET DEVELOPER documented in this encounter H&P Notes Andrea Dumas DO - 07/24/2018 11:18 PM CST [facility] History and Physical - Hospitalist Service Date of Admission: 07/24/2018 Assessment & Plan Dariana Osman is a 42 year old female admitted on 07/24/2018. She has a history of recurrent kidney stones. She presents to emergency room with right flank pain. She is found to have ureterolithiasis. 1. Ureterolithiasis. Continuous IV fluids. Pain medications as needed. Urology consult. N.p.o. aftermidnight. Diet: NPO for Medical/Clinical Reasons Except for: No Exceptions DVT Prophylaxis: Ambulate every shift Danielle Catheter: not present Code Status: Full Code Disposition Plan Expected discharge: Tomorrow Entered: Andrea Dumas DO 07/24/2018, 11:14 PM Andrea Dumas DO [facility] Chief Complaint Right flank pain. History is obtained from the patient History of Present Illness Dariana Osman is a 42 year old female who has a history of recurrent kidney stones. She had been noticing cloudiness in her urine for the past several days. Today, developed pain in her right flank that radiated into her right groin area. Had some nausea with this. Pain felt very similar to previous episodes of kidney stones. Nothing at home was helping with pain. She presented to emergency room for further evaluation. Pain medications given in the emergency room have helped quite a bit. No longer having any nausea. She has not had any fevers or chills with this. No other complaints. Review of Systems The 10 point Review of Systems is negative other than noted in the HPI Past Medical History I have reviewed this patient's medical history and updated it with pertinent information if needed. Past Medical History: Diagnosis Date ??? Anxiety state, unspecified ??? ASCUS of cervix with negative high risk HPV 12/24/2016 ??? Calculus of kidney kidney stones ??? Depressive disorder ??? Depressive disorder, not elsewhere classified ??? Papanicolaou smear of cervix with atypical squamous cells cannot exclude high grade squamous intraepithelial lesion (ASC-H) 11/23/2012 BRIGID 2 on colp Past Surgical History I have reviewed this patient's surgical history and updated it with pertinent information if needed. Past Surgical History: Procedure Laterality Date ??? [...] ??? ORTHOPEDIC SURGERY Arthoscopy on right ankle Social History I have reviewed this patient's social history and updated it with pertinent information if needed. Social History Tobacco Use ??? Smoking status: Former Smoker ??? Smokeless tobacco: Never Used ??? Tobacco comment: Very Occasional Substance Use Topics ??? Alcohol use: Yes Alcohol/week: 0.0 oz Comment: occasional ??? Drug use: No Family History I have reviewed this patient's family history and updated it with pertinent information if needed. Family History Problem Relation Age of Onset ??? Heart Disease Mother ??? Hypertension Mother ??? Diabetes Father ??? Hypertension Father ??? Thyroid Disease Father ??? Sjogren's Father ??? Scleroderma Father ??? Neurologic Disorder Father Neuropathy ??? Breast Cancer Paternal Grandmother ??? Family History Negative Other ??? Thyroid Disease Brother Prior to Admission Medications Prior to Admission Medications Prescriptions Last Dose Informant Patient Reported? Taking? DULoxetine (CYMBALTA) 60 MG EC capsule 07/23/2018 at HS No Yes Sig: Take 1 capsule (60 mg) by mouth daily Patient taking differently: Take 90 mg by mouth At Bedtime ibuprofen 200 MG capsule 07/24/2018 at 1100 Yes Yes Sig: Take 800 mg by mouth every 8 hours as needed for fever melatonin 3 MG tablet 07/23/2018 at HS Yes Yes Sig: Take 3 mg by mouth At Bedtime Facility-Administered Medications: None Allergies No Known Allergies Physical Exam Vital Signs: Temp: 98.1 ??F (36.7 ??C) Temp src: Oral BP: 134/77 Pulse: 76 Heart Rate: 75 Resp: 16 SpO2: 99 % O2 Device: None (Room air) Weight: 209 lbs 0 oz Gen: NAD, A&Ox3. Eyes: PERRL, sclera anicteric. OP: MMM, no lesions. Neck: Supple. CV: Regular, no murmurs. Lung: CTA b/l, normal effort. Ab: +BS, soft. Skin: Warm, dry to touch. No rash. Ext: No pitting edema LE b/l. Data Data reviewed today: I reviewed all medications, new labs and imaging results over the last 24 hours. Recent Labs Lab 07/24/18 1904 NA 134 POTASSIUM 3.8 CHLORIDE 104 CO2 25 BUN 12 CR 0.90 ANIONGAP 5 RONAK 8.8 GLC 84 OSOFT NET DEVELOPER documented in this encounter Consult Notes Angel Bartlett MD - 07/25/2018 3:10 PM CST Consult Date: 07/25/2018 UROLOGY INPATIENT CONSULTATION REASON FOR CONSULTATION: Right ureteral stone. HISTORY OF PRESENT ILLNESS: Dariana Osman is a 42-year-old woman with a prior history of kidney stones that have required extractions. Her most recent extraction was in 2015 when she had multiple stones ranging in size from 3-5 mm in the left ureter. These were removed by Dr. Hernadez at that time, andshe had a stent in place for a week after the procedure. She has had no problems since that time evens yesterday had the acute onset of right-sided flank pain. She came to the Emergency Department, stating that she had a kidney stone, and a CT scan revealed a 3 mm distal right ureteral stone. Otherwise, her lab work was unremarkable with a normal white blood cell count and urinalysis showing hematu dagoberto in the absence of pyuria. She required admission to the hospital for pain control and has continued to have a fair amount of pain since being admitted to the hospital. She has had no fevers, chills, nausea or vomiting. PAST MEDICAL HISTORY: Prior history of kidney stones as above. PAST SURGICAL HISTORY: She has had multiple prior stone extractions and stents previously. She has had a LEEP procedure and a hysterectomy. HOME MEDICATIONS: Cymbalta, ibuprofen and melatonin. ALLERGIES: NKDA. FAMILY HISTORY: No family history of kidney stones or urologic malignancy. SOCIAL HISTORY: She is a former smoker. REVIEW OF SYSTEMS: She has had no fevers, chills, nausea or vomiting. She has had no constitutional symptoms. She has had the flank pain only. IMAGING STUDIES: I reviewed her CT scan images, and there is a 3 mm stone in the very distal right ureter. This caused hydronephrosis and hydroureter. In the interpolar region of the left kidney, thereis a small angiomyolipoma. No other stones identified. LABORATORY STUDIES: Urinalysis shows hematuria with no pyuria. Serum white blood count is 9.5 and creatinine 0.8. IMPRESSION AND PLAN: This is a 42-year-old woman with a 3 mm distal right ureteral stone. We discussed her options, which include trial of passage versus stone extraction. She understands that the stone is small and fairly close to passing. It would be expected to pass at some point, although the timing of this is difficult to predict. She says that she really needs to get out of the hospital and getback to her children, so she would not like to undergo any sort of trial of passage and instead would like to have the stone treated as soon as possible. I recommended a cystoscopy with a right-sided ureteroscopy, stone extraction and stent placement in the operating room. I discussed the procedure indetail today along with its risks and expected recovery. She wishes to proceed. She is n.p.o. for her procedure later today. She will be able to discharge home after her procedure later today. ANGEL BARTLETT MD MT: Name: DARIANA OSMAN MRN: [id number] Account: [id number] : 1975 Consult Date: 07/25/2018 Document: [id number] OSOFT NET DEVELOPER documented in this encounter ED Notes Connie Jerry RN - 07/24/2018 10:27 PM CST [facility] ED Nurse Handoff Report Dariana Osman is a 42 year old female ED Chief complaint: Flank Pain . ED Diagnosis: Final diagnoses: None Allergies: No Known Allergies Code Status: Full Code Activity level - Baseline/Home: Independent. Activity Level - Current: Stand with Assist. Lift room needed: No. Bariatric: No Railroad Police Officer Needed: No Isolation: No. Infection: Not Applicable. Vital Signs: Vitals: 07/24/183 07/24/18 2100 07/24/18 2147 07/24/18 2200 BP: 136/81 149/90 139/78 Pulse: 81 82 76 Resp: 20 Temp: TempSrc: SpO2: 100% 100% 100% 100% Weight: Cardiac Rhythm: , Pain level: 0-10 Pain Scale: 4 Patient confused: No. Patient Falls Risk: Yes. Elimination Status: Has voided Patient Report - Initial Complaint: Flank pain. Focused Assessment: - Right sided flank pain starting this morning, radiating to groin. Has had cloudy urine with a burning sensation for about a week.Hx of kidney stones. Tests Performed: Labs, Ct. Abnormal Results: Labs Ordered and Resulted from Time of ED Arrival Up to the Time of Departure from the ED ROUTINE UA WITH MICROSCOPIC - Abnormal; Notable for the following components: Result Value Ketones Urine 5 (*) Blood Urine Large (*) RBC Urine >182 (*) Mucous Urine Present (*) All other components within normal limits BASIC METABOLIC PANEL CT Abdomen Pelvis w/o Contrast Final Result IMPRESSION: 1. 3 mm distal right ureter stone with obstruction. 2. Small left renal angiomyolipoma. MANUEL ALMAZAN MD . Treatments provided: 2 L bolus NS, 15 mg Toradol, 4 mg Zofran, 0.5 mg dilaudid x 3 Family Comments: Mother at bedside OBS brochure/video discussed/provided to patient: Yes ED Medications: Medications HYDROmorphone (PF) (DILAUDID) injection 0.5 mg (0.5 mg Intravenous Given 07/24/182145) ketorolac (TORADOL) injection 15 mg (15 mg Intravenous Given 07/24/181921) ondansetron (ZOFRAN) injection 4 mg (4 mg Intravenous Given 07/24/181918) HYDROmorphone (PF) (DILAUDID) injection 0.5 mg (0.5 mg Intravenous Given 07/24/181917) Drips infusing: Yes For the majority of the shift, the patient's behavior Green. Interventions performed were N/A. Severe Sepsis OR Septic Shock Diagnosis Present: No ED Nurse Name/Phone Number: Jaylene Sanchez, 10:27 PM RECEIVING UNIT ED HANDOFF REVIEW Above ED Nurse Handoff Report was reviewed: Yes Reviewed by: Connie Jerry on July 24, 2018 at 10:35 PM OSOFT NET DEVELOPER Karrie Newton RN - 07/24/2018 6:43 PM CST Patient to ED with right flank pain, radiates to groin. Started today. Has h/o kidney stones. OSOFT NET DEVELOPER Orion Akers MD - 07/24/2018 6:12 PM CST History Chief Complaint: Flank Pain HPI Dariana Osman is a 42 year old female who presents to the emergency department today with flank pain. Patient presents with right flank pain that radiates to the groin, which started today. She has a history of kidney stones and this feels similar. Allergies: No Known Drug Allergies Medications: Cymbalta Ibuprofen Melatonin Past Medical History: ASCUS of cervix with negative high risk HPV Abnormal Uterine Bleeding Anxiety State Calculus of kidney Cervical Intraepithelial Neoplasia II Chronic Migraine Without Aura Without Status Migrainosus, Not Intractable Depressive disorder Insomnia Obesity Papanicolaou smear of cervix with atypical squamous cells cannot exclude high grade squamous intraepithelial lesion Renal Colic Vitamin D Deficiency Past Surgical History: Biopsy LEEP Colposcopy Breast reduction x 2 Tonsillectomy Arthroscopy Combined Cystoscopy, Retrogrades, Ureteroscopy, Insert Stent Cosmetic Surgery Cystoscopy,ureteroscopy,stone Remv Davinci Hysterectomy Total Ent Surgery Hc Tooth Extraction W/forcep Leep Tx, Cervical Orthopedic Surgery Family History: Heart Disease Hypertension Diabetes Thyroid Disease Sjogren's Scleroderma Neurologic Disorder Breast Cancer Social History: The patient was accompanied to the ED by mother. Smoking Status: Former Smokeless Tobacco: Never Alcohol Use: Yes Marital Status: Single Review of Systems Genitourinary: Positive for flank pain (right, radiates to groin). All other systems reviewed and are negative. Physical Exam Patient Vitals for the past 24 hrs: BP Temp Temp src Pulse Heart Rate Resp SpO2 Weight 07/24/182099 136/81 -- -- 81 -- -- 100 % -- 07/24/182022 -- -- -- -- -- -- 100 % -- 07/24/182021 136/87 -- -- 68 -- -- -- -- 07/24/181923 -- -- -- -- -- -- 100 % -- 07/24/181921 (!) 130/101 -- -- 78 -- -- -- -- 07/24/181843 139/89 -- -- -- -- -- -- -- 07/24/181839 -- 98.2 ??F (36.8 ??C) Temporal -- 86 24 100 % 94.8 kg (209 lb) Physical Exam Uncomfortable secondary to pain HEENT: mmm Neck: supple CV: ppi, regular Resp: speaking in full sentences with any resp distress Abd: + ttp RLQ, no distension, no rigidty Ext: peripheral edema present: No Skin: warm dry well perfused Neuro: Alert, no gross motor or sensory deficits, gait stable Emergency Department Course Imaging: Radiology findings were communicated with the patient and family who voiced understanding of the findings. CT Abdomen Pelvis w/o Contrast Preliminary Result IMPRESSION: 1. 3 mm distal right ureter stone with obstruction. 2. Small left renal angiomyolipoma. Report per radiology Laboratory: Laboratory findings were communicated with the patient and family who voiced understanding of the findings. UA: slightly cloudy, yellow urine with 5 ketones, large blood, >182 RBC, mucous present o/w WNL BMP: AWNL (Creatinine 0.90) Interventions: 1917: Dilaudid 0.5mg IV 1918: Zofran 4mg IV 1921: Toradol 15 mg IV 2019: Dilaudid 0.5mg IV Medications HYDROmorphone (PF) (DILAUDID) injection 0.5 mg (0.5 mg Intravenous Given 07/24/182019) ketorolac (TORADOL) injection 15 mg (15 mg Intravenous Given 07/24/181921) ondansetron (ZOFRAN) injection 4 mg (4 mg Intravenous Given 07/24/181918) HYDROmorphone (PF) (DILAUDID) injection 0.5 mg (0.5 mg Intravenous Given 07/24/181917) Emergency Department Course: Nursing notes and vitals reviewed. 2020: I performed an exam of the patient as documented above. The patient was sent for a CT Abdomen Pelvis while in the emergency department, results above. IV was inserted and blood was drawn for laboratory testing, results above. The patient provided a urine sample here in the emergency department. This was sent for laboratory testing, findings above. I personally reviewed the laboratory and imaging results with the Patient and answered all related questions prior to admission. Impression & Plan Flank pain found to have obstructing right distal ureteral stone no concomitant renal failure or urinary tract infection. Struggled with pain control likely will not transition home well and so admitted to observation here for symptom control. Diagnosis: ICD-10-CM 1. Right kidney stone N20.0 Disposition: Admitted to Observation Scribe Disclosure: IAshlee, am serving as a scribe at 8:39 PM on 07/24/2018 to document services personally performed by Orion Akers, based on my observations and the provider's statements to me. 07/24/2018 [facility] EMERGENCY DEPARTMENT Orion Akers MD 07/25/18 0044 OSOFT NET DEVELOPER documented in this encounter Miscellaneous Notes Op Note - Angel Bartlett MD - 07/25/2018 4:49 PM CST Procedure Date: 07/25/2018 SURGEON: Angel Bartlett MD PREOPERATIVE DIAGNOSIS: Right ureteral stone. POSTOPERATIVE DIAGNOSIS: Right ureteral stone. PROCEDURE PERFORMED: Cystoscopy, basketing of stone from the right ureteral orifice, right retrograde pyelogram, interpretation of fluoroscopic images, ANESTHESIA: General. COMPLICATIONS: None. INDICATIONS FOR PROCEDURE: Dariana Osman is a 42-year-old female with a 3 mm distal right ureteral stone who now presents for removal. DETAILS OF THE PROCEDURE: The risks and benefits of the procedure were explained in detail to the patient and informed consent was obtained. The patient was brought to the operating room and placed supine on the table, where she underwent general endotracheal anesthetic. She was then moved down to thedorsal lithotomy position where she was prepped and draped in standard sterile fashion. The procedure began by introducing a 22 Bulgarian rigid cystoscope through the urethra into the bladderfor cystoscopy. There were no urothelial abnormalities identified. I looked at the right ureteral orifice and the stone was at the right ureteral orifice. I was able to slip a basket just pastthe stone and then open the basket. I was then able to nudge the stone out of the ureteral orifice. This unblocked the right ureter. I basketed the stone out of the bladder and sent it for analysis. I reinserted the scope and observed the right ureteral orifice. I cannulated the orifice with ureteral catheter and performed retrograde pyelogram. There were found to be no filling defects on the pyelogra m. I removed the ureteral catheter and there was good efflux of contrast and urine from the right ureteral orifice. I drained the bladder and the scope was removed. The procedure was concluded. The patient tolerated the procedure without complications. She went to post- anesthetic care in good condition. She will go home from there. ANGEL BARTLETT MD MT: RONDA Name: DARIANA OSMAN MRN: [id number] Account: [id number] : 1975 Procedure Date: 07/25/2018 Document: [id number] OSOFT NET DEVELOPER Plan of Care - Tobi Burgos RN - 07/25/2018 12:46 PM CST PRIMARY DIAGNOSIS: ACUTE RENAL COLIC OUTPATIENT/OBSERVATION GOALS TO BE MET BEFORE DISCHARGE 1. Pain Status: Improved but still requiring IV narcotics. 2. Tolerating adequate PO diet: NPO 3. Surgical Intervention planned: Yes 4. Cleared by consultants (if involved): No 5. Return to near baseline physical activity: Yes Strategy Director Nurse Safe discharge environment identified: Yes Barriers to discharge: Yes-OR at 1400 Entered by: Tobi Burgos 07/25/2018 12:47 PM BP 114/63 (BP Location: Left arm) Pulse 68 Temp 97.6 ??F (36.4 ??C) (Oral) Resp 16 Ht 1.676 m (5' 6) Wt 94.8 kg (209 lb) LMP 11/17/2016 SpO2 100% BMI 33.73 kg/m?? A & 0 x 4. VSS on RA. Pt tearful regarding need for surgical intervention. 0.5 mg IV Ativan given for anxiety with good effect. IV Zofran given x 1 for nausea, no emesis. Getting prn Dilaudid (0.2 mg) for pain. Up to bathroom with SBA. Voiding adequately, urine being strained. Plan for OR at 1500 and then discharge after surgery. Pt has been NPO and IVFs infusing. Continue to monitor and provide supportive cares. Pt's mom at bedside. Please review provider order for any additional goals. Nurse to notify provider when observation goals have been met and patient is ready for discharge. OSOFT NET DEVELOPER Plan of Care - Tobi Burgos RN - 07/25/2018 8:30 AM CST PRIMARY DIAGNOSIS: ACUTE RENAL COLIC OUTPATIENT/OBSERVATION GOALS TO BE MET BEFORE DISCHARGE 1. Pain Status: Improved but still requiring IV narcotics. 2. Tolerating adequate PO diet: Pt NPO for Urology consult 3. Surgical Intervention planned: Yes-OR at 1405 4. Cleared by consultants (if involved): No 5. Return to near baseline physical activity: Yes Strategy Director Nurse Safe discharge environment identified: Yes Barriers to discharge: Yes-OR at 1405 Entered by: Tobi Burgos 07/25/2018 0900 BP 114/66 (BP Location: Left arm) Pulse 76 Temp 97.6 ??F (36.4 ??C) (Oral) Resp 12 Ht 1.676 m (5' 6) Wt 94.8 kg (209 lb) LMP 11/17/2016 SpO2 96% BMI 33.73 kg/m?? A & 0 x 4, VSS on RA. Rating right sided flank pain at 5-6/10 with movement. Getting 0.2 mg Dilaudid q 2 hours with adequate relief. Also using T pump intermittently. Up independently to bathroom,reports dysuria. Denies nausea. Voiding adequately, urine pale yellow in color, will continue to strain. IVFs infusing at 100 ml/hour. NPO for OR at 1405. Continue to monitor and provide supportive cares. Please review provider order for any additional goals. Nurse to notify provider when observation goals have been met and patient is ready for discharge. OSOFT NET DEVELOPER Plan of Care - Connie Jerry RN - 07/25/2018 5:01 AM CST PRIMARY DIAGNOSIS: ACUTE RENAL COLIC OUTPATIENT/OBSERVATION GOALS TO BE MET BEFORE DISCHARGE 1. Pain Status: Improved but still requiring IV narcotics. Pt given one dose of PRN 0.2mg Dilaudid, which helped relieve pain. T-pump in place. 2. Tolerating adequate PO diet: NPO at midnight 3. Surgical Intervention planned: N/A 4. Cleared by consultants (if involved): No, urology to consult 5. Return to near baseline physical activity: Yes, ind for activity - up ad praveen Strategy Director Nurse Safe discharge environment identified: Yes Barriers to discharge: Yes Entered by: Connie Jerry 07/25/2018 5:01 AM Please review provider order for any additional goals. Nurse to notify provider when observation goals have been met and patient is ready for discharge. BP 113/62 (BP Location: Left arm) Pulse 76 Temp 97.6 ??F (36.4 ??C) (Oral) Resp 16 Ht 1.676 m (5' 6) Wt 94.8 kg (209 lb) LMP 11/17/2016 SpO2 96% BMI 33.73 kg/m?? Plan: continuing to strain urine - no stone or sediment noted, IVF, urology in AM, NPO OSOFT NET DEVELOPER Plan of Care - Connie Jerry RN - 07/25/2018 12:00 AM CST PRIMARY DIAGNOSIS: ACUTE RENAL COLIC OUTPATIENT/OBSERVATION GOALS TO BE MET BEFORE DISCHARGE 1. Pain Status: Improved but still requiring IV narcotics. Reporting pain 4/10 in R) flank radiatingto R) groin 2. Tolerating adequate PO diet: NPO at midnight 3. Surgical Intervention planned: N/A 4. Cleared by consultants (if involved): No, urology to consult 5. Return to near baseline physical activity: Yes, ind for activity - up ad praveen Strategy Director Nurse Safe discharge environment identified: Yes Barriers to discharge: Yes Entered by: Connie Jerry 07/25/2018 12:00 AM Please review provider order for any additional goals. Nurse to notify provider when observation goals have been met and patient is ready for discharge. BP 134/77 (BP Location: Left arm) Pulse 76 Temp 98.1 ??F (36.7 ??C) (Oral) Resp 16 Ht 1.676 m (5' 6) Wt 94.8 kg (209 lb) LMP 11/17/2016 SpO2 99% BMI 33.73 kg/m?? Orientation: A&Ox4 Neuro: in tact, denies numbness/tingling Activity: up ad praveen Lungs: clear on auscultation, no SOB reported or assessed Cardiac: WNL : WNL GI: WNL Skin: in tact IVF: NS 125mL/hr Meds: IV dilaudid PRN Q2hr Labs/imaging: CT per radiology resulted 3 mm distal right ureter stone with obstruction. Diet: NPO Consults: urology in AM Plan: strain urine, IVF, urology in AM, NPO OSOFT NET DEVELOPER Pharmacy-Admission Medication History - Vera Duvall, [facility] - 07/24/2018 11:07 PM CST .Admission medication history interview status for this patient is complete. See [facility] admission navigator for allergy information, prior to admission medications and immunization status. Medication history interview source(s):Patient Medication history resources (including written lists, pill bottles, clinic record):None Primary pharmacy: Not ID'd Changes made to FALSEWORK BUILDER medication list: Added: None Deleted: None Changed: Duloxetine (90mg PO at bedtime), Ibuprofen (800mg PO Q8H PRN), Melatonin (3 mg PO at bedtime) Actions taken by pharmacist (provider contacted, etc):None Additional medication history information:None Medication reconciliation/reorder completed by provider prior to medication history? No Prior to Admission medications Medication Sig Last Dose Taking? Auth Provider DULoxetine (CYMBALTA) 60 MG EC capsule Take 1 capsule (60 mg) by mouth daily Patient taking differently: Take 90 mg by mouth At Bedtime 07/23/2018 at HS Yes Yony Garcia PA-C ibuprofen 200 MG capsule Take 800 mg by mouth every 8 hours as needed for fever 07/24/2018 at 1100 Yes Yony Garcia PA-C melatonin 3 MG tablet Take 3 mg by mouth At Bedtime 07/23/2018 at HS Yes Reported, Patient OSOFT NET DEVELOPER documented in this encounter Plan of Treatment Not on filedocumented as of this encounter Procedures Procedure Name Priority Date/Time Associated Comments Diagnosis SURGICAL PATHOLOGY Routine 07/25/2018 4:54 PM Res ults for this EXAM MICROSOFT NET DEVELOPER procedure are i n the results section. STONE ANALYSIS Routine 07/25/2018 4:54 PM Right kidney stone R esults for this MICROSOFT NET DEVELOPER procedure are i n the results section. XR SURGERY TAMMY Routine 07/25/2018 4:50 PM Result s for this FLUORO LESS THAN 5 MICROSOFT NET DEVELOPER procedure are in MIN W STILLS the results section. CYSTOSCOPY, WITH 07/25/2018 4:16 PM unknown RETROGRADE PYELOGRAM MICROSOFT NET DEVELOPER AND CALCULUS REMOVAL BASIC METABOLIC PANEL Routine 07/25/2018 5:55 AM Right kidney stone Results for this MICROSOFT NET DEVELOPER procedure are i n the results section. CT ABDOMEN PELVIS W/O STAT 07/24/2018 7:55 PM Results for this CONTRAST MICROSOFT NET DEVELOPER procedure are i n the results section. BASIC METABOLIC PANEL STAT 07/24/2018 7:04 PM Results for this MICROSOFT NET DEVELOPER procedure are i n the results section. ROUTINE UA WITH STAT 07/24/2018 7:00 PM Result s for this MICROSCOPIC MICROSOFT NET DEVELOPER procedure are i n the results section. documented in this encounter Results Surgical pathology exam (07/25/2018 4:54 PM MICROSOFT NET DEVELOPER) Component Value Ref Test Analysis Performed At [facility] Range Method Time Signature Copath Report Patient Name: DARIANA OSMAN MR#: [id number] Specimen #: [id number] Collected: 07/25/2018 Received: 07/27/2018 Reported: 07/27/2018 12:02 Ordering Phy(s): ANDREA DUMAS For improved result formatting, select 'View Enhanced Report Format' under Linked Documents section. SPECIMEN(S): Stone, right ureteral FINAL DIAGNOSIS: Material submitted as right ureteral stone. - Calculus present. ??Specimen sent entirely for chemi ronak/stone analysis. ?? See separate forthcoming stone analysis report. Electronically signed out by: Blake Scruggs M.D. CLINICAL HISTORY: Right ureteral stone. GROSS: The specimen is received fresh, labeled with the patient's n tad proper identifying information and designated right ureteral stone. ??It consists of a 0.4 cm black irre gular, firm calculus. ??The specimen is sent entirely for chemical/stone analysis. ??Gross only exam. See separate forthcoming stone analysis report. (Dictated by: NICK Mei 07/27/2018 09:48 AM)/KARLEE The technical component of this testing was completed at the [facility], with the professional compo nent performed at the [facility], [address] [place] [address] ??[phone] ([phone]) CPT Codes: A: 77645-WD COLLECTION SITE: Client: [facility] Location: RHPRE (R) Specimen Anatomical Collection Method Collection Time Receive d Time (Source) Location / / Volume Laterality 07/25/2018 4:54 PM 9 8:00 MICROSOFT NET DEVELOPER AM MICROSOFT NET DEVELOPER Andrea SHETTY - [facility] Performing Organization Address City/State/ZIP Code Phon e Number COPATH Stone analysis (07/25/2018 4:54 PM MICROSOFT NET DEVELOPER) [facility] Method Time Signature Stone SEE NOTE 07/31/2018 [place] Composition 9:[address] [facility] Comment: (Note) Calculi composed primarily of calcium oxalate monohydrate. INTERPRETIVE INFORMATION: Calculi (Stone ) analysis Calculi are the products of physiologica l processes that yield crystalline compounds in a matrix of biological compounds and blood. ??Matrix components are not reported. ?? The clinically significant crystalline c omponents identified in calculi specimens are repo rted. ??Gross description may not be consistent with c omposition determined by FTIR analysis. Performed by [facility], [address] [place] [id number] [email or web address], Oswaldo Pierson MD, Lab. Director Calculi Number 1 07/31/2018 9:30 AM MICROSOFT NET DEVELOPER [facility] Calculi Size 1 to 4 mm 07/31/2018 9:30 AM MICROSOFT NET DEVELOPER [facility] Calculi Description SEE NOTE 07/31/2018 9:[address] [facility] Comment: (Note) Specimen consists of a single, small, brown/asnchez, irregular calculus. Stone Mass 18 mg 07/31/2018 9:30 AM MICROSOFT NET DEVELOPER [facility] Specimen (Source) Anatomical Collection Method Collection Time Re ceived Time Location / / Volume Laterality Calculus specimen STRUCTURE OF RIGHT 07/25/2018 4:54 P M (specimen) URETER / Unknown MICROSOFT NET DEVELOPER Angel Bartlett MD LAB - BODY FLUIDS ORDERABLES Performing Organization Address City/State/ZIP Code Phon e Number M [facility] [address] [address] [facility] [address] [phone] XR Surgery TAMMY L/T 5 Min Fluoro w Stills (07/25/2018 4:50 PM MICROSOFT NET DEVELOPER) Anatomical Region Laterality Modality Abdomen/Pelvis Radio Fluoroscopy Specimen (Source) Anatomical Location Collection Method / Collectio n Time Received Time / Laterality Volume Impressions 07/25/2018 5:22 PM MICROSOFT NET DEVELOPER IMPRESSION: Single provided image of retrograde ureterogram without significant hydronephrosis. Filling defe ct in the distal ureter presumably represents an air bubble. Ple ase see operative report for further details. ALLAN HANNA MD Narrative 07/25/2018 5:22 PM MICROSOFT NET DEVELOPER SURGERY C-ARM FLUOROSCOPY LESS THAN 5 MINUTES WITH STILLS ??07/25/2018 4:50 PM COMPARISON: 01/18/2016. HISTORY: CT abdomen pelvis 07/24/2018. NUMBER OF IMAGES ACQUIRED: 1 VIEWS: 1 FLUOROSCOPY TIME: .01 minutes. Procedure Note Allan Hanna MD - 07/25/2018 SURGERY C-ARM FLUOROSCOPY LESS THAN 5 TX NUTES WITH STILLS 07/25/2018 4:50 PM COMPARISON: 01/18/2016. HISTORY: CT abdomen pelvis 07/24/2018. NUMBER OF IMAGES ACQUIRED: 1 VIEWS: 1 FLUOROSCOPY TIME: .01 minutes. IMPRESSION: Single provided image of ret rograde ureterogram without significant hydronephrosis. Filling defe ct in the distal ureter presumably represents an air bubble. Ple ase see operative report for further details. ALLAN HANNA MD Andrea Dumas DO IMG DIAGNOSTIC IMAGING ORDER VERONICA (ABNORMAL) Basic metabolic panel (07/25/2018 5:55 AM [facility]) athologist Signature Sodium 142 133 - 144 07/25/2018 [facility] mmol/L 6:[address] [facility] Potassium 3.9 3.4 - 5.3 07/25/2018 [facility] mmol/L 6:[address] [facility] Chloride 113 (H) 94 - 109 07/25/2018 [facility] mmol/L 6:[address] [facility] Carbon Dioxide 26 20 - 32 07/25/2018 [facility] mmol/L 6:[address] [facility] Anion Gap 3 3 - 14 07/25/2018 [facility] mmol/L 6:[address] [facility] Glucose 99 70 - 99 07/25/2018 [facility] mg/dL 6:[address] [facility] Urea Nitrogen 9 7 - 30 07/25/2018 [facility] mg/dL 6:[address] [facility] Creatinine 0.80 0.52 - 07/25/2018 [facility] 1.04 mg/dL 6:[address] [facility] GFR Estimate >90 >60 07/25/2018 [place] mL/min/{1. 6:29 AM [facility] 73_m2} HOSPITAL Comment: Non GFR Calc Starting 05/26/2018, serum creatinine ba sed estimated GFR (eGFR) will be calculated using the Chronic Kidney Dise [facility] Epidemiology Collaboration (CKD-EPI) equation. GFR Estimate If >90 >60 mL/min/{1.73_m2} 07/25/2018 6: 29 AM [facility] Comment: GFR Calc Starting 05/26/2018, serum creatinine ba sed estimated GFR (eGFR) will be calculated using the Chronic Kidney Dise [facility] Epidemiology Collaboration (CKD-EPI) equation. Calcium 7.5 (L) 8.5 - 10.1 mg/dL 07/25/2018 6:29 AM [facility] Specimen Anatomical Collection Method Collection Time Receive d Time (Source) Location / / Volume Laterality Blood specimen 07/25/2018 5:55 AM 019 5:56 (specimen) MICROSOFT NET DEVELOPER AM MICROSOFT NET DEVELOPER Andreaemmett Dumas DO LAB - BLOOD ORDERABLES Performing Organization Address City/State/ZIP Code Phon e Number M [facility] [address], [place] [address] [facility] [address] [place], [place] [address] [facility] [phone] CT Abdomen Pelvis w/o Contrast (07/24/2018 7:55 PM MICROSOFT NET DEVELOPER) Anatomical Region Laterality Modality Abdomen/Pelvis, SUBRAD CT BODY, UMP CT ABDOMEN PELVIS, Computed Tomography RAD CT Specimen (Source) Anatomical Location Collection Method / Collectio n Time Received Time / Laterality Volume Impressions 07/24/2018 10:19 PM MICROSOFT NET DEVELOPER IMPRESSION: 1. 3 mm distal right ureter stone with o bstruction. 2. Small left renal angiomyolipoma. MANUEL ALMAZAN MD Narrative 07/24/2018 10:[address] [address] [address] ABDOMEN/PELVIS WITHOUT CONTRAST July 24, 2018 7:55 PM HISTORY: Right flank pain, hematuria. TECHNIQUE: Axial images with reconstruct ions. No IV contrast. Radiation dose for this scan was reduced using automated exposure control, adjustment of the mA and/or kV according to patient size, or iterative reconstruction technique. COMPARISON: 01/18/2016. FINDINGS: There is a 1.4 cm left renal l esion; this has fatty density consistent with an angiomyolipoma. There is right hydroureteronephrosis related to a dista l ureter stone (adjacent to the UVJ) measuring 3 mm. There are two t iny right renal calculi. Procedure Note Mnauel Almazan MD - 07/24/2018Formatting o f this note might be different from the original. CT ABDOMEN/PELVIS WITHOUT CONTRAST 2018 7:55 PM HISTORY: Right flank pain, hematuria. TECHNIQUE: Axial images with reconstruct ions. No IV contrast. Radiation dose for this scan was reduced using automated exposure control, adjustment of the mA and/or kV according to patient size, or iterative reconstruction technique. COMPARISON: 01/18/2016. FINDINGS: There is a 1.4 cm left renal l esion; this has fatty density consistent with an angiomyolipoma. There is right hydroureteronephrosis related to a dista l ureter stone (adjacent to the UVJ) measuring 3 mm. There are two t iny right renal calculi. IMPRESSION: 1. 3 mm distal right ureter stone with o bstruction. 2. Small left renal angiomyolipoma. MANUEL ALMAZAN MD Orion Akers MD IMG CT ORDERABLES Basic metabolic panel (07/24/2018 7:04 PM [facility]) athologist Signature Sodium 134 133 - 144 07/24/2018 [facility] mmol/L 7:[address] [facility] Potassium 3.8 3.4 - 5.3 07/24/2018 [facility] mmol/L 7:[address] [facility] Chloride 104 94 - 109 07/24/2018 [facility] mmol/L 7:[address] [facility] Carbon Dioxide 25 20 - 32 07/24/2018 [facility] mmol/L 7:[address] [facility] Anion Gap 5 3 - 14 07/24/2018 [facility] mmol/L 7:[address] [facility] Glucose 84 70 - 99 07/24/2018 [facility] mg/dL 7:[address] [facility] Urea Nitrogen 12 7 - 30 07/24/2018 [facility] mg/dL 7:[address] [facility] Creatinine 0.90 0.52 - 07/24/2018 [facility] 1.04 mg/dL 7:[address] [facility] GFR Estimate 80 >60 07/24/2018 [place] mL/min/{1. 7:43 PM [facility] 73_m2} HOSPITAL Comment: Non GFR Calc Starting 05/26/2018, serum creatinine ba sed estimated GFR (eGFR) will be calculated using the Chronic Kidney Dise [facility] Epidemiology Collaboration (CKD-EPI) equation. GFR Estimate If >90 >60 mL/min/{1.73_m2} 07/24/2018 7: 43 PM [facility] Comment: GFR Calc Starting 05/26/2018, serum creatinine ba sed estimated GFR (eGFR) will be calculated using the Chronic Kidney Dise [facility] Epidemiology Collaboration (CKD-EPI) equation. Calcium 8.8 8.5 - 10.1 mg/dL 07/24/2018 7:43 PM [facility] Specimen Anatomical Collection Method Collection Time Receive d Time (Source) Location / / Volume Laterality Blood specimen 07/24/2018 7:04 PM 019 7:14 (specimen) MICROSOFT NET DEVELOPER PM MICROSOFT NET DEVELOPER Orion Akers MD LAB - BLOOD ORDERABLES Performing Organization Address City/State/ZIP Code Phon e Number M [facility] [address], [place] [address] [facility] [address] [phone] (ABNORMAL) UA with Microscopic (07/24/2018 7:00 PM MICROSOFT NET DEVELOPER) [facility] Method Time Signature Color Urine Yellow 07/24/[address] [facility] 7:[address] [facility] Appearance Urine Slightly 07/24/2018 [facility] Cloudy 7:[address] [facility] Glucose Urine Negative NEG^Negat 07/24/2018 [facility] bakari mg/dL 7:[address] [facility] Bilirubin Urine Negative NEG^Negat 07/24/2018 [facility] bakari 7:[address] [facility] Ketones Urine 5 (A) NEG^Negat 07/24/2018 [facility] bakari mg/dL 7:[address] [facility] Specific Rudolph 1.028 1.003 - 07/24/2018 [facility] Urine 1.035 7:[address] [facility] Blood Urine Large (A) NEG^Negat 07/24/2018 [facility] bakari 7:[address] [facility] pH Urine 5.0 5.0 - 7.0 07/24/2018 [facility] pH 7:[address] [facility] Protein Albumin Negative NEG^Negat 07/24/2018 [facility] Urine bakari mg/dL 7:[address] [facility] Urobilinogen Negative 0.0 - 2.0 07/24/2018 [facility] mg/dL mg/dL 7:[address] [facility] Nitrite Urine Negative NEG^Negat 07/24/2018 [facility] bakari 7:[address] [facility] Leukocyte Negative NEG^Negat 07/24/2018 [facility] Esterase Urine bakari 7:[address] [facility] Source Midstream 07/24/2018 [facility] Urine 7:[address] [facility] WBC Urine 3 0 - 5 07/24/2018 [facility] /HPF 7:[address] [facility] RBC Urine >182 (H) 0 - 2 07/24/2018 [facility] /HPF 7:[address] [facility] Squamous 1 0 - 1 07/24/2018 [place] Epithelial /HPF /HPF 7:36 PM [facility] Mucous Urine Present (A) NEG^Negat 07/24/2018 [place]ari /LPF 7:[address] [facility] Specimen (Source) Anatomical Collection Method Collection Time Re ceived Time Location / / Volume Laterality Examination of 07/24/2018 7:00 07/24/2018 7:21 midstream urine PM MICROSOFT NET DEVELOPER PM MICROSOFT NET DEVELOPER specimen (procedure) Orion Akers MD LAB - URINE ORDERABLES Performing Organization Address City/State/ZIP Code Phon e Number M [place] [address] [address] [facility] [address] [phone] documented in this encounter Visit Diagnoses Diagnosis Right kidney stone Calculus of kidney Ureterolithiasis Calculus of ureter documented in this encounter Administered Medications Inactive Administered Medications - up to 3 most recent administrations Medication Order MAR Action Action Date Dose Rate Site 0.9% sodium chloride BOLUS New Bag 07/25/2018 1:49 AM MICROSOFT NET DEVELOPER 500 mLs 500 mL/hr Intravenous, 500 mL, ONCE, at 500 mL/hr, Administer over 1 Hours, On 07/24/18 at 2315, For 1 dose, Wide Open unless duration is otherwise specified ceFAZolin (ANCEF) intermittent infusion 1 g Routine, 1 g, Intravenous, SEE ADMIN INS TRUCTIONS, Starting on 07/25/18 at 1702, Intra-Op Dose.?Give every 2 hours while patient in surgery, starting 2 hours after pre-op dose.?DO NOT GIVE intra-op dose if CrC l less than 10 mL/min (on dialysis).?If CrCL less than 50 mL/mi n, double the time interval between doses., Indications: Perioperative Pharmacoprophylaxis, Pre-pr ocedure ceFAZolin (ANCEF) intermittent infusion 2 g in 100 mL dextrose PRE-MIX Routine, 2 g, Intravenous, PRE-OP/PRE-AR OCEDURE, Starting on Fri07/25/18 at 1702, For 1 dose, Give first dose within 1 bibi r PRIOR to incision. If patient weight is greater than or equal to 120 kg increase dose to 3 g., Indications: Perioperative Pharmacoprophylaxis, Pre-procedure HYDROmorphone (PF) (DILAUDID) injection 0.2 Given 07/10 12:54 PM [employer] 0.2 mg mg 0.2 mg, Intravenous, EVERY 2 HOURS PRN, moderate to severe pain, IF unable to take PO.??Pain control or improvement in physical function., Starting on Fri07/24/18 at 2313, Hold dose for analgesic side effects., If needing IV pain meds for 2 or more doses call provider to have oral medications adjusted to get pain controlled on oral regimen prior to discharge. Give when patient is unable to take oral opioid for pain control. For ordered IV doses 0.1-4 mg give IV Push undiluted. Administer each 2mg over 2-5 minutes. Given 07/25/2018 9:02 AM [employer] 0.2 mg Given 07/25/2018 6:23 AM [employer] 0.2 mg HYDROmorphone (PF) (DILAUDID) injection 0.5 Given 07/24/2018 9:46 PM [employer] 0.5 mg mg 0.5 mg, Intravenous, EVERY 30 MIN PRN, moderate to severe pain, Starting on Fri07/24/18 at 1907, For 3 doses, For ordered IV doses 0.1-4 mg give IV Push undiluted. Administer each 2mg over 2-5 minutes. Given 07/24/2018 8:20 PM [employer] 0.5 mg HYDROmorphone (PF) (DILAUDID) injection 0.5 Given 07/24/2018 7:18 PM [employer] 0.5 mg mg 0.5 mg, Intravenous, ONCE, On Fri07/24/18 at 1911, For 1 dose, For ordered IV doses 0.1-4 mg give IV Push undiluted. Administer each 2mg over 2-5 minutes. ketorolac (TORADOL) injection 15 mg Given 07/24/2018 7:22 PM [employer] 15 mg 15 mg, Intravenous, ONCE, On Fri07/24/18 at 1908, For 1 dose, Can cause pain on injection. If ordered intravenously (IV) : administer through a running maintenance fluid over 1 minute followed by a flush. If patient complains of pain on injection, may dilute 15-30 mg in 5 mL and push over 1 to 2 minutes. LORazepam (ATIVAN) injection 0.5 mg Given 07/25/2018 11:25 AM [employer] 0.5 mg 0.5 mg, Intravenous, EVERY 6 HOURS PRN, muscle spasms, nausea, Starting on Fri07/24/18 at 2313, This drug may cause significant respiratory depression. Monitor respiratory status and vital signs carefully for 1 hour after each dose. naloxone (NARCAN) injection 0.1-0.4 mg 0.1-0.4 mg, Intravenous, EVERY 2 MIN PRN , opioid reversal, Starting on 07/25/18 at 1702, For 24 hours, For apnea or imminent respirato ry arrest: give 0.4 mg IV undiluted Q 2 minutes PRN until desired degree of reversal is obtained, stop opioid and notify provider. Continue monitoring until dischar ge criteria are met for a minimum of 2 hours. For severe sedation, decrease in respiratory depth, quality or respiratory rate less than 8: give 0.1 m g IV Q 2 minutes x 3 doses, stop opioid and notify provider. Try to minimize reversa l of analgesia especially in end-of-life patients For ordered IV doses 0.1-2mg gi ve IVP. Give each 0.4mg over 15 seconds in emergency situations. For non-emergent s ituations further dilute in 9mL of NS to facilitate titration of response., Post-procedure ondansetron (ZOFRAN) injection 4 mg Given 07/24/2018 7:19 PM [employer] 4 mg 4 mg, Intravenous, ONCE, Administer over 2-5 Minutes, On Fri07/24/18 at 1908, For 1 dose, Irritant. For ordered IV doses 0.1-4 mg, give IV Push undiluted over 2-5 minutes. ondansetron (ZOFRAN) injection 4 mg Given 07/25/2018 12:43 PM [employer] 4 mg 4 mg, Intravenous, EVERY 6 HOURS PRN, nausea, vomiting, Administer over 2-5 Minutes, Starting on Fri07/24/18 at 2311, This is Step 1 of nausea and vomiting management. If nausea not resolved in 15 minutes, go to Step 2 prochlorperazine (COMPAZINE). Irritant. For ordered IV doses 0.1-4 mg, give IV Push undiluted over 2-5 minutes. ondansetron (ZOFRAN-ODT) ODT tab 4 mg 4 mg, Oral, EVERY 6 HOURS PRN, nausea, v omiting, Starting on Fri07/24/18 at 2311, This is Step 1 of nausea and vomiting management. If n ausea not resolved in 15 minutes, go to Step 2 prochlorperazine (COMPAZINE). Do not push through foil backing. Peel back foil and gently remove. Place on to ngue immediately. Administration with liquid unnecessary W ith dry hands, peel back foil backing and gently remove tablet; do not push oral d isintegrating tablet through foil backing; administer immediately on tongue and oral disintegrati ng tablet dissolves in seconds; then swallow with saliva; liquid not required . prochlorperazine (COMPAZINE) injection 1 0 mg 10 mg, Intravenous, EVERY 6 HOURS PRN, nausea, vomitin g, Administer over 1-2 Minutes, Starting on Fri07/24/18 at 2313, This is Step 2 of nausea and vomiting management. Give if nausea not resolved 15 minutes aft er giving ondansetron (ZOFRAN). If nausea not resolved in 15 minutes, go to Step 3 metoclopramide (REGLAN), if ordered. For ordered IV dos es 0.1-10 mg, give IV Push undiluted. Each 5mg over 1 minute. prochlorperazine (COMPAZINE) Suppository 25 mg 25 mg, Rectal, EVERY 12 HOURS PRN, nausea, vomiting, S tarting on Fri07/24/18 at 2313, This is Step 2 of nausea and vomit ing management. Give if nausea not resolved 15 minutes after giving ondansetron (ZOF RAN). If nausea not resolved in 15 minutes, go to Step 3 metoclopramide (REGLAN), if ordered. prochlorperazine (COMPAZINE) tablet 10 m g 10 mg, Oral, EVERY 6 HOURS PRN, vomiting , Starting on Fri07/24/18 at 2313, This is Step 2 of nausea and vomiting management . Give if nausea not resolved 15 minutes after giving ondansetron (ZOFRAN). If na usea not resolved in 15 minutes, go to Step 3 metoclopramide (REGLAN), if ordered. senna-docusate (SENOKOT-S/PERICOLACE) 8. 6-50 MG per tablet 1 tablet 1 tablet, Oral, 2 TIMES DAILY PRN, const ipation, Starting on 07/24/18 at 2313, If no bowel movement in 24 hours, increa se to 2 tablets PO. Hold for loose stools. This is the first step of a three step constipation tr eatment. senna-docusate (SENOKOT-S/PERICOLACE) 8. 6-50 MG per tablet 2 tablet 2 tablet, Oral, 2 TIMES DAILY PRN, const ipation, Starting on Fri07/24/18 at 2313, Hold for loose stools. This is the first step of a thr ee step constipation treatment. sodium chloride 0.9% infusion New Bag 07/25/2018 9:01 AM [employer] 125 mL/hr at 125 mL/hr, Intravenous, CONTINUOUS, Starting on Fri07/24/18 at 2315, Until 07/25/18 at 1959 Rate/Dose Verify 07/25/2018 8:13 AM [employer] 125 mL/hr New Bag 07/24/2018 11:54 PM [employer] 125 mL/hr documented in this encounter Active and Recently Administered Medications Times are shown in [employer]. Scheduled Medication Order 07/23/2018 07/24/2018 07/25/2018 0.9% sodium chloride BOLUS (COMPLETED) 0149 (New Bag - Provider: Connie Jerry RN) Intravenous, 500 mL, ONCE, at 500 mL/hr, Administer over 1 Hours, 07/24/18 at 2315, For 1 dose, Wide Open unless duration is otherwise specified ceFAZolin (ANCEF) intermittent infusion 1 g 1 g, Intravenous, SEE ADMIN INSTRUCTIONS , Starting 07/25/18 at 1702, Intra-Op Dose.?Give every 2 hours while patient in surgery, starting 2 hours after pre-op dose.?DO NOT GIVE intra-op dose if CrCl less than 10 mL/min (on dialysis). ?If CrCL less than 50 mL/min, double the time interval between doses., Indications: Perioperative Pharmacoprophylaxis, Pre-procedure ceFAZolin (ANCEF) intermittent infusion 2 g in 100 mL dextrose P RE-MIX 2 g, Intravenous, PRE-OP/PRE-PROCEDURE, Starting 07/25/18 at 1702, For 1 dose, Give first dose within 1 hour PRIOR to incision. If patient weight is greater than or equal to 120 kg increase dose to 3 g., Indications: Perioperative Pharmacoprophylaxis, Pre-procedu re HYDROmorphone (PF) (DILAUDID) injection 0.5 mg (COMPLETED) 1917 (Given - Provider: Jaylene Sanchez RN) 0.5 mg, Intravenous, ONCE, 1 dose, Fri at 1911, For ordered IV doses 0.1-4 mg give IV Push undiluted. Administer each 2mg over 2-5 minutes. ketorolac (TORADOL) injection 15 mg (COMPLETED) 1921 (Given - Provider: Jaylene Sanchez RN) 15 mg, Intravenous, ONCE, 07/24/18 at 1908, For 1 dose, Can cause pain on injection. If ordered intravenously (IV) : administer through a running maintenance fluid over 1 minute followed by a flush. If patient complains of pain on injectio n, may dilute 15-30 mg in 5 mL and push over 1 to 2 minutes. ondansetron (ZOFRAN) injection 4 mg (COMPLETED) 1918 (Given - Provider: Jaylene Sanchez RN) 4 mg, Intravenous, ONCE, Administer over 2-5 Minutes, 07/24/18 at 1908, For 1 dose, Irritant. For ordered IV doses 0.1-4 mg, give IV Push undiluted over 2-5 minutes. 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)1659 (Anesthesia Volume Adjustment - Provider: Cj Reyes APRN CRNA) at 100 mL/hr, Intravenous, CONTINUOUS, C ontinue until IV catheter is weaned, PACU, Starting 07/25/18 at 1615, Until 07/25/18 at 1737 sodium chloride 0.9% infusion 2354 (New Bag - Pr ovider: Connie Jerry RN) 0813 (Rate/Dose Verify - Provider: Tobi Burgos, RN)0901 (New Bag - Provider: Tobi Burgos, RN)1501 (Stopped - Provider: Tobi Burgos RN) at 125 mL/hr, Intravenous, CONTINUOUS, S tarting 07/24/18 at 2315, Until 07/25/18 at 1959 PRN Medication Order 07/23/2018 07/24/2018 07/25/2018 acetaminophen (TYLENOL) Suppository 650 mg 1548 (Auto Hold - Provider: Orders Generic Provider - Reason: Transfer to a procedural area)1958 (Unhold - Provider: [employer]) 650 mg, Rectal, EVERY 4 HOURS PRN, mild pain, Starting 07/24/18 at 2311, Alternate ibuprofen (if ordered) with acetaminophen. Maximum acetaminophen dose from all sources = 75 mg/kg/day not to exceed 4 grams/day. acetaminophen (TYLENOL) tablet 650 mg 154 (Auto Hold - Provider: Orders Generic Provider - Reason: Transfer to a procedural area)1958 (Unhold - Provider: [employer]) 650 mg, Oral, EVERY 4 HOURS PRN, mild pa in, Starting 07/24/18 at 2311, Alternate ibuprofen (if ordered) with acetaminophen. Maximum acetaminophen dose from all sources = 75 mg/kg/day not to exceed 4 grams/day. bisacodyl (DULCOLAX) Suppository 10 mg 154 (Auto Hold - Provider: Orders Generic Provider - Reason: Transfer to a procedural area)1958 (Unhold - Provider: [employer]) 10 mg, Rectal, DAILY PRN, constipation, Starting 07/24/18 at 2313, Hold for loose stools. This is the third step of a three step constipation treatment. HYDROmorphone (PF) (DILAUDID) injection 0.2 mg 2354 (Given - Provider: Connie Jerry RN) 0623 (Given - Provider: Connie león RN)0902 (Given - Provider: Tobi Burgos, SHAREE)1254 (Given - Provider: Tobi Burgos, SHAREE)1548 (Auto Hold - Provider: Orders Generic Provider - Reason: Transfer to a procedural area) 0.2 mg, Intravenous, EVERY 2 HOURS PRN, Starting 07/24/18 at 2313, Until 07/25/18 at 1959, moderate to severe pain, IF unable to take PO.??Pain control or improvement in physical function., Hold d 1958 (Unhold - Provider: [employer]) ose for analgesic side effects., If need ing IV pain meds for 2 or more doses call provider to have oral medications adjusted to get pain controlled on oral regimen prior to discharge. Give when patient is unable to take oral opioid for pain c ontrol. For ordered IV doses 0.1-4 mg give IV Push undiluted. Administer each 2mg over 2-5 minutes. HYDROmorphone (PF) (DILAUDID) injection 0.5 mg (CANCELED) 2019 (Given - Provider: Jaylene Sanchez, SHAREE)2145 (Given - Provider: Aide Delgado RN) 0.5 mg, Intravenous, EVERY 30 MIN PRN, 3 doses, Starting 07/24/18 at 1907, Until 07/24/18 at 2314, moderate to severe pain, For ordered IV doses 0.1-4 mg give IV Push undiluted. Administer each 2mg over 2-5 minutes. iopamidol 61% (ISOVUE 300) 50 mL + steri le water for irrigation 50 mL (CANCELED) 1650 (Given - Provid er: Angel Bartlett MD) PRN, Starting 07/25/18 at 1651, Intra-procedure LORazepam (ATIVAN) injection 0.5 mg 1125 (Given - Provider: Tobi Burgos, SHAREE)1548 (Auto Hold - Provider: Orders Generic Provider - Reason: Transfer to a procedural area)1958 (Unhold - Provider: [employer]) 0.5 mg, Intravenous, EVERY 6 HOURS PRN, muscle spasms, nausea, Starting 07/24/18 at 2313, This drug may cause significant respiratory depression. Monitor respiratory status and vital signs carefully for 1 hour after each dose. melatonin tablet 1 mg 1548 (Auto Hold - Provider: Orders Generic Provider - Reason: Transfer to a procedural area)1958 (Unhold - Provider: [employer]) 1 mg, Oral, AT BEDTIME PRN, sleep, Start ing 07/24/18 at 2311, Do not give unless at least 6 hours of uninterrupted sleep is expected. naloxone (NARCAN) injection 0.1-0.4 mg 1547 (Auto Hold - Provider: Orders Generic Provider - Reason: Transfer to a procedural area)1958 (Unhold - Provider: [employer]) 0.1-0.4 mg, Intravenous, EVERY 2 MIN PRN , opioid reversal, Starting 07/24/18 at 2311, For respiratory rate LESS than or EQUAL to 8. Partial reversal dose: 0.1 mg titrated q 2 minutes for Analgesia Si de Effects Monitoring Sedation Level of 3 (frequently drowsy, arousable, drifts to sleep during conversation).Full reversal dose: 0.4 mg bolus for Analgesia Side Effects Monitoring Sedation Level of 4 ( somnolent, minimal or no response to sti mulation). For ordered IV doses 0.1-2mg give IVP. Give each 0.4mg over 15 seconds in emergency situations. For non- emergent situations further dilute in 9mL of NS to facilitate titration of response. naloxone (NARCAN) injection 0.1-0.4 mg 0.1-0.4 mg, Intravenous, EVERY 2 MIN PRN , opioid reversal, Starting 07/25/18 at 1702, For 24 hours, For apnea or imminent respiratory arrest: give 0.4 mg IV undiluted Q 2 minutes PRN until desired de gree of reversal is obtained, stop opioi d and notify provider. Continue monitoring until discharge criteria are met for a minimum of 2 hours. For severe sedation, decrease in respiratory depth, quality or respiratory rate less than 8: give 0. 1 mg IV Q 2 minutes x 3 doses, stop opioid and notify provider. Try to minimize reversal of analgesia especially in end-of-life patients For ordered IV doses 0.1- 2mg give IVP. Give each 0.4mg over 15 se conds in emergency situations. For non- emergent situations further dilute in 9mL of NS to facilitate titration of response., Post-procedure ondansetron (ZOFRAN) injection 4 mg(Linked Group 1) 1243 (Given - Provider: Tobi Burgos RN)1547 (Auto Hold - Provider: Orders Generic Provider - Reason: Transfer to a procedural area)1958 (Unhold - Provider: [employer]) 4 mg, Intravenous, EVERY 6 HOURS PRN, na usea, vomiting, Administer over 2-5 Minutes, Starting 07/24/18 at 2311, This is Step 1 of nausea and vomiting management. If nausea not resolved in 15 minutes, go to Step 2 prochlorperazine (COMPAZIN E). Irritant. For ordered IV doses 0.1-4 mg, give IV Push undiluted over 2-5 minutes. ondansetron (ZOFRAN-ODT) ODT tab 4 mg(Linked Group 1) 1243 (See Alternative - Provider: Tobi Burgos RN)1547 (Auto Hold - Provider: Orders Generic Provider - Reason: Transfer to a procedural area)1958 (Unhold - Provider: [employer]) 4 mg, Oral, EVERY 6 HOURS PRN, nausea, v omiting, Starting 07/24/18 at 2311, This is Step 1 of nausea and vomiting management. If nausea not resolved in 15 minutes, go to Step 2 prochlorperazine (COMP AZINE). Do not push through foil backing . Peel back foil and gently remove. Place on tongue immediately. Administration with liquid unnecessary With dry hands, peel back foil backing and gently remove t ablet; do not push oral disintegrating t ablet through foil backing; administer immediately on tongue and oral disintegrating tablet dissolves in seconds; then swallow with saliva; liquid not required. oxyCODONE (ROXICODONE) tablet 5-10 mg 1547 (Auto Hold - Provider: Orders Generic Provider - Reason: Transfer to a procedural area)1958 (Unhold - Provider: [employer]) 5-10 mg, Oral, EVERY 3 HOURS PRN, pain c ontrol or improvement in physical function., Starting Fri07/24/18 at 2312, Start with the lowest dose. May adjust dose by 5 mg every 3 hours as needed for pain co ntrol or improvement in physical functio n. Hold dose for analgesic side effects. Notify provider to assess for uncontrolled pain or analgesic side effects. polyethylene glycol (MIRALAX/GLYCOLAX) Packet 17 g 1547 (Auto Hold - Provider: Orders Generic Provider - Reason: Transfer to a procedural area)1958 (Unhold - Provider: [employer]) 17 g, Oral, DAILY PRN, constipation, Sta rting 07/24/18 at 2313, Give in 8oz of water, juice, or soda. Hold for loose stools. This is the second step of a three step constipation treatment. 1 Packet = 17 grams. Mixed prescribed dose in 8 ou nces of water. Follow with 8 oz. of water. prochlorperazine (COMPAZINE) injection 10 mg(Linked Group 2) 1547 (Auto Hold - Provider: Orders Generic Provider - Reason: Transfer to a procedural area)1958 (Unhold - Provider: [employer]) 10 mg, Intravenous, EVERY 6 HOURS PRN, n ausea, vomiting, Administer over 1-2 Minutes, Starting 07/24/18 at 2313, This is Step 2 of nausea and vomiting management. Give if nausea not resolved 15 minut es after giving ondansetron (ZOFRAN). If nausea not resolved in 15 minutes, go to Step 3 metoclopramide (REGLAN), if ordered. For ordered IV doses 0.1-10 mg, give IV Push undiluted. Each 5mg over 1 minute. prochlorperazine (COMPAZINE) Suppository 25 mg(Linked Group 2) 1547 (Auto Hold - Provider: Orders Generic Provider - Reason: Transfer to a procedural area)1958 (Unhold - Provider: [employer]) 25 mg, Rectal, EVERY 12 HOURS PRN, nause a, vomiting, Starting 07/24/18 at 2313, This is Step 2 of nausea and vomiting management. Give if nausea not resolved 15 minutes after giving ondansetron (ZOFR AN). If nausea not resolved in 15 minute s, go to Step 3 metoclopramide (REGLAN), if ordered. prochlorperazine (COMPAZINE) tablet 10 mg(Linked Group 2) 1547 (Auto Hold - Provider: Orders Generic Provider - Reason: Transfer to a procedural area)1958 (Unhold - Provider: [employer]) 10 mg, Oral, EVERY 6 HOURS PRN, vomiting , Starting 07/24/18 at 2313, This is Step 2 of nausea and vomiting management. Give if nausea not resolved 15 minutes after giving ondansetron (ZOFRAN). If [place] not resolved in 15 minutes, go to St ep 3 metoclopramide (REGLAN), if ordered. senna-docusate (SENOKOT-S/PERICOLACE) 8. 6-50 MG per tablet 1 tablet(Linked Group 3) 154 (Auto Hold - Pr ovider: Orders Generic Provider - Reason: Transfer to a procedural area)1958 (Unhold - Provider: [employer]) 1 tablet, Oral, 2 TIMES DAILY PRN, const ipation, Starting 07/24/18 at 2313, If no bowel movement in 24 hours, increase to 2 tablets PO. Hold for loose stools. This is the first step of a three step constipation treatment. senna-docusate (SENOKOT-S/PERICOLACE) 8. 6-50 MG per tablet 2 tablet(Linked Group 3) 154 (Auto Hold - Pr ovider: Orders Generic Provider - Reason: Transfer to a procedural area)1958 (Unhold - Provider: [employer] Epic) 2 tablet, Oral, 2 TIMES DAILY PRN, const ipation, Starting 07/24/18 at 2313, Hold for loose stools. This is the first step of a three step constipation treatment. sodium chloride 0.9% (bag) irrigation (CANCELED) 1651 (Given - Provider: Angel Bartlett MD) PRN, Starting 07/25/18 at 1652, Intra-procedure Linked Groups Order Group 1: ondansetron (ZOFRAN-ODT) ODT tab 4 mgJump to med 4 mg, Oral, EVERY 6 HOURS PRN, nausea, v omiting, Starting 07/24/18 at 2311
This is Step 1 of nausea and vomiting management. If nausea not resolved in 15 minutes, go to St ep 2 prochlorperazine (COMPAZINE). Do no t push through foil backing. Peel back foil and gently remove. Place on tongue immediately. Administration with liquid unnecessary With dry hands, peel b ack foil backing and gently remove table t; do not push oral disintegrating tablet through foil backing; administer immediately on tongue and oral disintegrating tablet dissolves in seconds; then swallow with saliva; liquid not required.
Or ondansetron (ZOFRAN) injection 4 mgJump to med 4 mg, Intravenous, EVERY 6 HOURS PRN, na usea, vomiting, Administer over 2-5 Minutes, Starting 07/24/18 at 2311
This is Step 1 of nausea and vomiting management. If nausea not resolved in 15 minutes, go to Step 2 prochlorperazine (COMPAZINE). Irritant. For ordered IV doses 0.1-4 mg, give IV Push undiluted over 2-5 minutes.
Group 2: prochlorperazine (COMPAZINE) injection 10 mgJump to med 10 mg, Intravenous, EVERY 6 HOURS PRN, n ausea, vomiting, Administer over 1-2 Minutes, Starting 07/24/18 at 2313
This is Step 2 of nausea and vomiting management. Give if nausea not resolved 15 minutes after giving ondansetron (ZOF RAN). If nausea not resolved in 15 minutes, go to Step 3 metoclopramide (REGLAN), if ordered. For ordered IV doses 0.1-10 mg, give IV Push undiluted. Each 5mg over 1 minute.
Or prochlorperazine (COMPAZINE) tablet 10 mgJump to med 10 mg, Oral, EVERY 6 HOURS PRN, vomiting , Starting 07/24/18 at 2313
This is Step 2 of nausea and vomiting management. Give if nausea not resolved 15 minutes after giving ondansetron (ZOFRAN) . If nausea not resolved in 15 jayce [place], go to Step 3 metoclopramide (REGLAN), if ordered.
Or prochlorperazine (COMPAZINE) Suppository 25 mgJump to med 25 mg, Rectal, EVERY 12 HOURS PRN, nause a, vomiting, Starting Fri07/24/18 at 2313
This is Step 2 of nausea and vomiting management. Give if nausea not resolved 15 minutes after giving ondansetr on (ZOFRAN). If nausea not resolved in 15 minutes, go to Step 3 metoclopramide (REGLAN), if ordered.
Group 3: senna-docusate (SENOKOT-S/PERICOLACE) 8.6-50 MG per tablet 1 tabletJump to med 1 tablet, Oral, 2 TIMES DAILY PRN, const ipation, Starting 2/15/19 at 2313
If no bowel movement in 24 hours, increase to 2 tablets PO. Hold for loose stools. This is the first step of a three step constipation treatment.
Or senna-docusate (SENOKOT-S/PERICOLACE) 8.6-50 MG per tablet 2 tabletJump to med 2 tablet, Oral, 2 TIMES DAILY PRN, const ipation, Starting 07/24/18 at 2313
Hold for loose stools. This is the first step of a three step constipation treatment.
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
--- OUTSIDE RECORDS SUMMARY | 2022-04-11 21:42 | XMS_ITS | Encounter Summary ---
:1975 Author Organization [place] Address [address] [facility] [place] [address] Care Team Providers Name Role Phone Yony Garcia PA-C Primary Care Provider [phone] Yony Garcia PA-C Unavailable [phone] Yony Garcia PA-C Unavailable [phone] Reason for Visit Reason Onset Date Comments Medication Refill 06/13/2017 DULoxetine (CYMBALTA ) 60 MG EC capsule Encounter Details Date Type Department Care Team Description 06/12/2017 Refill [facility] Yony Garcia [facility] ZENON Hoyos (DULoxetine (CYMBALTA) [address] 60 MG EC capsule) [address] [place] [address] [place], [place] [phone] (Wo rk) [id number] [phone] Social History Tobacco Use Types Packs/Day Years Used Date Smoking Tobacco: Former Smokeless Tobacco: Never Comments: Very Occasional Alcohol Use Standard Drinks/Week Comments Yes 0 (1 standard drink = 0.6 oz pure 1 TIME A a week(1 glass of wine) 1 alcohol) qo weekend Sex Assigned at Date Recorded Not on file documented as of this encounter Miscellaneous Notes Telephone Encounter - Anais Hinojosa RN - 06/13/2017 10:01 AM CST Medication is being filled for 1 time refill only due to: Patient needs to be seen because Coming due for 6 month depression follow up . Anais Hinojosa RN -- [facility] HOLE DIGGER Telephone Encounter - Madina Douglas - 06/13/2017 8:43 AM CST Requested Prescriptions Pending Prescriptions Disp Refills ??? DULoxetine (CYMBALTA) 60 MG EC capsule [Pharmacy Med Name: DULOXETINE HCL 60MG CPEP] 90 capsule 1 Last Written Prescription Date: 11/25/16 Last Fill Quantity: 90, # refills: 1 Last Office Visit with [facility], [facility] or [facility] prescribing provider: 01/30/2017 Future Office Visit: Sig: TAKE ONE CAPSULE BY MOUTH EVERY DAY Serotonin-Norepinephrine Reuptake Inhibitors Failed 06/12/2017 9:18 PM Failed - PHQ-9 score of less than 5 in past 6 months PHQ-9 SCORE 01/30/2016 02/01/2016 11/01/2016 Total Score - - - Total Score MyChart 3 (Minimal depression) - - Total Score - 5 2 EUGENE-7 SCORE 09/01/2015 01/30/2016 02/01/2016 Total Score - - - Total Score - 5 (mild anxiety) - Total Score 2 - 5 Passed - Blood pressure under 140/90 BP Readings from Last 3 Encounters: 02/18/17 110/60 02/05/17 137/71 01/30/17 110/80 Passed - Patient is age 18 or older Passed - No active on record Passed - No positive test in past 12 months Passed - Recent (6 mo) or future visit with authorizing provider's specialty Patient had office visit in the last 6 months or has a visit in the next 30 days with authorizing provider. See chart review. HOLE DIGGER documented in this encounter Plan of Treatment Not on filedocumented as of this encounter Visit Diagnoses Diagnosis Major depressive disorder, recurrent epi sode, mild (H) Major depressive disorder, recurrent epi sode, mild documented in this encounter Additional Health Concerns Assessment Noted Time PHQ-9 Depression Total Score: 2 11/02/2016 7:17 AM CDT documented as of this encounter Care Teams Weir Fisher Relationship Specialty Start Date End Date Yony Garcia, PCP - General Physician Feeder/Folder - 01/30/17 07/23/18 [facility] Yony Garcia, PCP - Assigned PCP 09/01/16 08/11/18 [facility] [id number] SONJA KRAUSE [id number] Yony Garcia, Assigned PCP 09/01/16 [facility] [id number] SONJA KRAUSE [id number] documented as of this encounter
--- OUTSIDE RECORDS SUMMARY | 2022-04-11 21:42 | XMS_ITS | Encounter Summary ---
:1975 Author Organization [place] Address [address] [facility] [place] [address] Care Team Providers Name Role Phone Yony Garcia PA-C Unavailable [phone] Erik Rivas Primary Care Provider Yony Garcia PA-C Unavailable [phone] Reason for Visit Reason Comments Flank Pain Encounter Details Date Type Department Care Team Description 07/25/2018 Surgery [facility] Angel Bartlett Cystos copy, basketing of [place] PeriOp Servic cindy Conde MD stone from the right [address] ureteral orifice, right [place], [place] [address] retrograde pyelogram, [id number] [place] [address] interpretation of [phone] (Wo rk) fluoroscopic images Surgery Details Date/Time Status Location OR Service Patient Class Case Case Trauma Class Type Case? 07/25/18 4:10 Posted [facility] OR OR 14 Laser Inpatient PM Urology Panel 1 Procedure LRB Anes Op Region Wound Class Commen ts Cystoscopy, basketing of stone Right General Ureter II-Cl nacho Contaminated from the right ureteral orifice, right retrograde pyelogram, interpretation of fluoroscopic images Surgeon Surgeon Role Service Panel Angel Bartlett MD Primary Laser Urology 1 documented in this encounter Social History Tobacco [...] Sign Reading Time Taken Comments Blood Pressure 129/79 07/25/2018 5:15 PM INFORMATION SECURITY ENGINEER Pulse 65 07/25/2018 5:15 PM INFORMATION SECURITY ENGINEER Temperature 36.1 ??C (97 ??F) 07/25/2018 4:59 PM INFORMATION SECURITY ENGINEER Respiratory Rate 26 07/25/2018 5:15 PM INFORMATION SECURITY ENGINEER Oxygen Saturation 100% 07/25/2018 5:15 PM INFORMATION SECURITY ENGINEER Inhaled Oxygen Concentration - - Weight 94.8 kg (209 lb) 07/24/2018 6:40 PM INFORMATION SECURITY ENGINEER Height 167.6 cm (5' 6) 07/24/2018 11:33 PM INFORMATION SECURITY ENGINEER Body Mass Index 33.73 07/24/2018 6:40 PM INFORMATION SECURITY ENGINEER documented in this encounter Discharge Summaries Gwendolyn Iyer PA-C - 07/25/2018 10:19 AM CST [facility] Hospitalist Discharge Summary Date of Admission: [...] These results will be followed up by [facility] Course This is a 42 year-old woman with history of nephrolithiasis admitted for right flank pain and found to have right ureterolithiasis. Proceeded to urologic procedure 07/25/2018 for management with no complications. Should follow-up with urology as directed. Consultations This Hospital Stay UROLOGY IP CONSULT Code Status Full Code Time Spent on this Encounter IGwendolyn, personally saw the patient today and spent less than or equal to 30 minutes discharging this patient. Gwendolyn Iyer PA-C [facility] Physical Exam Vital Signs: Temp: 97.6 [...] mouth At Bedtime Allergies No Known Allergies RMATION SECURITY ENGINEER documented in this encounter Discharge Instructions Discharge InstructionsHannah Shaffer RN - 07/25/2018 4:49 PM CST CYSTOSCOPY DISCHARGE INSTRUCTIONS [facility] / UROLOGY [facility] [phone] YOU MAY GO BACK TO YOUR NORMAL [...] STILL NOT ABLE TO URINATE (PASS WATER). RMATION SECURITY ENGINEER documented in this encounter Medications at Time [...] Will be sent to PeriOp with pt. Validation Analyst - Pt DOES NOT need an language interpreter.. 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 Patient has been oriented to the observation room, bathroom and call light is in place. Discussed discharge goals and expectations with patient/family. RMATION SECURITY ENGINEER documented in this encounter H&P Notes Andrea Dumas DO - 07/24/2018 11:18 PM CST [facility] History and Physical - Hospitalist Service [...] DO 07/24/2018, 11:14 PM Andrea Dumas DO [facility] Chief Complaint Right flank pain. History [...] 0.90 ANIONGAP 5 RONAK 8.8 GLC 84 RMATION SECURITY ENGINEER documented in this encounter Consult Notes Angel [...] removed by Dr. Hernadez at that time, andvincente had a stent in place for a [...] procedure later today. ANGEL BARTLETT MD MT: [place] Name: DARIANA OSMAN MRN: [id number] Account: [id number] : 1975 Consult Date: 07/25/2018 Document: [id number] RMATION SECURITY ENGINEER documented in this encounter ED Notes Connie Jerry RN - 07/24/2018 10:27 PM CST [facility] ED Nurse Handoff Report Dariana Osman is a 42 year old female ED Chief complaint: Flank Pain . ED Diagnosis: Final diagnoses: None Allergies: No Known Allergies Code Status: Full Code Activity level - Baseline/Home: Independent. Activity Level - Current: Stand with Assist. Lift room needed: No. Bariatric: No Validation Analyst Needed: No Isolation: No. Infection: Not Applicable. Vital Signs: Vitals: 07/24/18202207/24/18 2100 07/24/18214607/24/18 2200 BP: 136/81 149/90 139/78 Pulse: 81 [...] on July 24, 2018 at 10:35 PM RMATION SECURITY ENGINEER Karrie Newton RN - 07/24/2018 6:43 PM CST Patient to ED with right flank pain, radiates to groin. Started today. Has h/o kidney stones. RMATION SECURITY ENGINEER Orion Akers MD - 07/24/2018 6:12 PM [...] src Pulse Heart Rate Resp SpO2 Weight 07/24/18 2100 136/81 -- -- 81 -- -- 100 [...] N20.0 Disposition: Admitted to Observation Scribe Disclosure: I, Ashlee Jenkins, am serving as a scribe at 8:39 PM on 07/24/2018 to document services personally performed by Orion Akers, based on my observations and the provider's statements to me. 07/24/2018 [facility] EMERGENCY DEPARTMENT Orion Akers MD 07/25/18 0044 RMATION SECURITY ENGINEER documented in this encounter Miscellaneous Notes Op [...] The procedure began by introducing a 22 Andorran rigid cystoscope through the urethra into the [...] BARTLETT MD MT: [place]ONDA Name: DARIANA OSMAN Account: [id number] : 1975 Procedure Date: 07/25/2018 Document: [id number] RMATION SECURITY ENGINEER Plan of Care - Tobi Burgos RN - 07/25/2018 12:46 PM CST PRIMARY DIAGNOSIS: ACUTE RENAL COLIC OUTPATIENT/OBSERVATION GOALS TO BE MET BEFORE DISCHARGE 1. Pain Status: Improved but still requiring IV narcotics. 2. Tolerating adequate PO diet: NPO 3. Surgical Intervention planned: Yes 4. Cleared by consultants (if involved): No 5. Return to near baseline physical activity: Yes Blower Feeder [employer]ed Raw Stock Nurse Safe discharge environment identified: Yes Barriers [...] met and patient is ready for discharge. RMATION SECURITY ENGINEER Plan of Care - Tobi Burgos RN [...] Return to near baseline physical activity: Yes Blower Feeder Dyed Raw Stock Nurse Safe discharge environment identified: Yes Barriers [...] met and patient is ready for discharge. RMATION SECURITY ENGINEER Plan of Care - Connie Jerry RN [...] ind for activity - up ad praveen Blower Feeder Dyed Raw Stock Nurse Safe discharge environment identified: Yes Barriers [...] sediment noted, IVF, urology in AM, NPO RMATION SECURITY ENGINEER Plan of Care - Connie Jerry RN [...] ind for activity - up ad praveen Blower Feeder Dyed Raw Stock Nurse Safe discharge environment identified: Yes Barriers [...] strain urine, IVF, urology in AM, NPO RMATION SECURITY ENGINEER Pharmacy-Admission Medication History - Vera Duvall [facility] - 07/24/2018 11:07 PM CST .Admission medication history interview status for this patient is complete. See [facility] admission navigator for allergy information, prior to admission medications and immunization status. Medication history interview source(s):Patient Medication history resources (including written lists, pill bottles, clinic record):None Primary pharmacy: Not ID'd Changes made to [facility] medication list: Added: None Deleted: None Changed: [...] for fever 07/24/2018 at 1100 Yes Yony Gracia PA-C melatonin 3 MG tablet Take 3 mg by mouth At Bedtime 07/23/2018 at HS Yes Reported, Patient RMATION SECURITY ENGINEER documented in this encounter Plan of Treatment Not on filedocumented as of this encounter Procedures Procedure Name Priority Date/Time Associated Comments Diagnosis SURGICAL PATHOLOGY Routine 07/25/2018 4:54 PM Res ults for this EXAM INFORMATION SECURITY ENGINEER procedure are i n the results section. STONE ANALYSIS Routine 07/25/2018 4:54 PM Right kidney stone R esults for this INFORMATION SECURITY ENGINEER procedure are i n the results section. XR SURGERY TAMMY Routine 07/25/2018 4:50 PM Result s for this FLUORO LESS THAN 5 INFORMATION SECURITY ENGINEER procedure are in MIN W STILLS the results section. CYSTOSCOPY, WITH 07/25/2018 4:16 PM unknown RETROGRADE PYELOGRAM INFORMATION SECURITY ENGINEER AND CALCULUS REMOVAL BASIC METABOLIC PANEL Routine 07/25/2018 5:55 AM Right kidney stone Results for this INFORMATION SECURITY ENGINEER procedure are i n the results section. CT ABDOMEN PELVIS W/O STAT 07/24/2018 7:55 PM Results for this CONTRAST INFORMATION SECURITY ENGINEER procedure are i n the results section. BASIC METABOLIC PANEL STAT 07/24/2018 7:04 PM Results for this INFORMATION SECURITY ENGINEER procedure are i n the results section. ROUTINE UA WITH STAT 07/24/2018 7:00 PM Result s for this MICROSCOPIC INFORMATION SECURITY ENGINEER procedure are i n the results section. documented in this encounter Results Surgical pathology exam (07/25/2018 4:54 PM INFORMATION SECURITY ENGINEER) Component Value Ref Test Analysis Performed At [facility] Range Method Time Signature Copath Report Patient Name: EDELEN, DARIANA CAMILA COPATH MR#: [id number] Specimen #: [id number] Collected: 07/25/2018 Received: 07/27/2018 Reported: 07/27/2018 12:02 [...] of this testing was completed at the [facility], with the professional compo nent performed at the [facility], [address] [place] [address] ??[phone] ([phone]) CPT Codes: A: 52848-AB COLLECTION SITE: Client: [facility] Location: RHPRE (R) Specimen Anatomical Collection Method Collection Time Receive d Time (Source) Location / / Volume Laterality 07/25/2018 4:54 PM 9 8:00 INFORMATION SECURITY ENGINEER AM INFORMATION SECURITY ENGINEER Andrea SHETTY - BELEANN AP Performing Organization Address City/State/ZIP Code Phon e Number [place] Stone analysis (07/25/2018 4:54 PM INFORMATION SECURITY ENGINEER) [facility] Method Time Signature Stone SEE NOTE 07/31/2018 [place] Composition 9:30 AM [facility] Comment: (Note) Calculi composed primarily of [...] omposition determined by FTIR analysis. Performed by [employer], [address] [place] [id number] [email or web address], Oswaldo Pierson MD, Lab. Director Calculi Number 1 07/31/2018 9:30 AM INFORMATION SECURITY ENGINEER [facility] Calculi Size 1 to 4 mm 07/31/2018 9:30 AM INFORMATION SECURITY ENGINEER [facility] Calculi Description SEE NOTE 07/31/2018 9:[address] [facility] Comment: (Note) Specimen consists of a single, small, brown/sanchez, irregular calculus. Stone Mass 18 mg 07/31/2018 9:30 AM INFORMATION SECURITY ENGINEER [facility] Specimen (Source) Anatomical Collection Method Collection Time Re ceived Time Location / / Volume Laterality Calculus specimen STRUCTURE OF RIGHT 07/25/2018 4:54 P M (specimen) URETER / Unknown INFORMATION SECURITY ENGINEER Angel Bartlett MD LAB - BODY FLUIDS ORDERABLES Performing Organization Address City/State/ZIP Code Phon e Number M [facility] [address] [address] [facility] [address] [phone] XR Surgery TAMMY L/T 5 Min Fluoro w Stills (07/25/2018 4:50 PM INFORMATION SECURITY ENGINEER) Anatomical Region Laterality Modality Abdomen/Pelvis Radio Fluoroscopy Specimen (Source) Anatomical Location Collection Method / Collectio n Time Received Time / Laterality Volume Impressions 07/25/2018 5:22 PM INFORMATION SECURITY ENGINEER IMPRESSION: Single provided image of retrograde ureterogram without significant hydronephrosis. Filling defe ct in the distal ureter presumably represents an air bubble. Ple ase see operative report for further details. ALLAN HANNA MD Narrative 07/25/2018 5:22 PM INFORMATION SECURITY ENGINEER SURGERY C-ARM FLUOROSCOPY LESS THAN 5 MINUTES WITH STILLS ??07/25/2018 4:50 PM COMPARISON: 01/18/2016. HISTORY: CT abdomen pelvis 07/24/2018. NUMBER OF IMAGES ACQUIRED: 1 VIEWS: 1 FLUOROSCOPY TIME: .01 minutes. Procedure Note Allan Hanna MD - 07/25/2018 SURGERY C-ARM FLUOROSCOPY LESS THAN 5 MS NUTES WITH STILLS 07/25/2018 4:50 PM COMPARISON: [...] (ABNORMAL) Basic metabolic panel (07/25/2018 5:55 AM [facility]) athologist Signature Sodium 142 133 - 144 07/25/2018 [facility] mmol/L 6:23 AM [facility] Potassium 3.9 3.4 - 5.3 07/25/2018 [facility] mmol/L 6:23 AM [facility] Chloride 113 (H) 94 - 109 07/25/2018 [facility] mmol/L 6:23 AM [facility] Carbon Dioxide 26 20 - 32 07/25/2018 [facility] mmol/L 6:29 AM [facility] Anion Gap 3 3 - 14 07/25/2018 [facility] mmol/L 6:29 AM [facility] Glucose 99 70 - 99 07/25/2018 [facility] mg/dL 6:29 AM [facility] Urea Nitrogen 9 7 - 30 07/25/2018 [facility] mg/dL 6:29 AM [facility] Creatinine 0.80 0.52 - 07/25/2018 [facility] 1.04 mg/dL 6:29 AM [facility] GFR Estimate >90 >60 07/25/2018 [place] mL/min/{1. 6:29 AM [facility] 73_m2} [facility]OS[facility] Comment: Non GFR Calc Starting 05/26/2018, serum creatinine ba sed estimated GFR (eGFR) will be calculated using the Chronic Kidney Dise ase Epidemiology Collaboration (CKD-EPI) equation. GFR Estimate If >90 >60 mL/min/{1.73_m2} 07/25/2018 6: 29 AM [facility] Comment: GFR Calc Starting 05/26/2018, serum creatinine ba sed estimated GFR (eGFR) will be calculated using the Chronic Kidney Dise ase Epidemiology Collaboration (CKD-EPI) equation. Calcium 7.5 (L) 8.5 - 10.1 mg/dL 07/25/2018 6:29 AM [facility] Specimen Anatomical Collection Method Collection Time Receive d Time (Source) Location / / Volume Laterality Blood specimen 07/25/2018 5:55 AM 019 5:56 (specimen) INFORMATION SECURITY ENGINEER AM INFORMATION SECURITY ENGINEER Andrea Dumas DO LAB - BLOOD ORDERABLES Performing Organization Address City/State/ZIP Code Phon e Number [address] [address] [address] [address] [place], [place] [address] [phone] [facility] [address] [place], [place] [address] [place] [address] CT Abdomen Pelvis w/o Contrast (07/24/2018 7:55 PM INFORMATION SECURITY ENGINEER) Anatomical Region Laterality Modality Abdomen/Pelvis, SUBRAD CT BODY, UMP CT ABDOMEN PELVIS, Computed Tomography RAD CT Specimen (Source) Anatomical Location Collection Method / Collectio n Time Received Time / Laterality Volume Impressions 07/24/2018 10:19 PM INFORMATION SECURITY ENGINEER IMPRESSION: 1. 3 mm distal right ureter stone with o bstruction. 2. Small left renal angiomyolipoma. MANUEL ALMAZAN MD Narrative 07/24/2018 10:19 PM INFORMATION SECURITY ENGINEER CT ABDOMEN/PELVIS WITHOUT CONTRAST July 24, 2018 [...] t iny right renal calculi. Procedure Note Manuel Almazan MD - 07/24/2018Formatting o f this [...] ORDERABLES Basic metabolic panel (07/24/2018 7:04 PM [facility]) athologist Signature Sodium 134 133 - 144 07/24/2018 [facility] mmol/L 7:37 PM [facility] Potassium 3.8 3.4 - 5.3 07/24/2018 [facility] mmol/L 7:37 PM [facility] Chloride 104 94 - 109 07/24/2018 [facility] mmol/L 7:37 PM [facility] Carbon Dioxide 25 20 - 32 07/24/2018 [facility] mmol/L 7:43 PM [facility] Anion Gap 5 3 - 14 07/24/2018 [facility] mmol/L 7:43 PM [facility] Glucose 84 70 - 99 07/24/2018 [facility] mg/dL 7:43 PM [facility] Urea Nitrogen 12 7 - 30 07/24/2018 [facility] mg/dL 7:43 PM [facility] Creatinine 0.90 0.52 - 07/24/2018 [facility] 1.04 mg/dL 7:43 PM [facility] GFR Estimate 80 >60 07/24/2018 [place] mL/min/{1. 7:43 PM [facility] 73_m2} [facility]OS[facility] Comment: Non GFR Calc Starting 05/26/2018, serum creatinine ba sed estimated GFR (eGFR) will be calculated using the Chronic Kidney Dise ase Epidemiology Collaboration (CKD-EPI) equation. GFR Estimate If >90 >60 mL/min/{1.73_m2} 07/24/2018 7: 43 PM [facility] Comment: GFR Calc Starting 05/26/2018, serum creatinine ba sed estimated GFR (eGFR) will be calculated using the Chronic Kidney Dise ase Epidemiology Collaboration (CKD-EPI) equation. Calcium 8.8 8.5 - 10.1 mg/dL 07/24/2018 7:43 PM [facility] Specimen Anatomical Collection Method Collection Time Receive d Time (Source) Location / / Volume Laterality Blood specimen 07/24/2018 7:04 PM 019 7:14 (specimen) INFORMATION SECURITY ENGINEER PM INFORMATION SECURITY ENGINEER Orion Akers MD LAB - BLOOD ORDERABLES Performing Organization Address City/State/ZIP Code Phon e Number [place] [address] [address] [facility] [address] [phone] (ABNORMAL) UA with Microscopic (07/24/2018 7:00 PM INFORMATION SECURITY ENGINEER) [facility] Method Time Signature Color Urine Yellow 07/24/2018 [facility] 7:36 PM [facility] Appearance Urine Slightly 07/24/2018 [facility] Cloudy 7:36 PM [facility] Glucose Urine Negative NEG^Negat 07/24/2018 [place] bakari mg/dL 7:36 PM [facility] Bilirubin Urine Negative NEG^Negat 07/24/2018 [facility] bakari 7:36 PM [facility] Ketones Urine 5 (A) NEG^Negat 07/24/2018 [place] mg/dL 7:36 PM [facility] Specific [place] 1.028 1.003 - 07/24/2018 [place] Urine 1.035 7:36 PM [facility] Blood Urine Large (A) NEG^Negat 07/24/2018 [facility] bakari 7:36 PM [facility] pH Urine 5.0 5.0 - 7.0 07/24/2018 [place] pH 7:36 PM [facility] Protein Albumin Negative NEG^Negat 07/24/2018 [place] Urine bakari mg/dL 7:36 PM [facility] Urobilinogen Negative 0.0 - 2.0 07/24/2018 [place] mg/dL mg/dL 7:35 PM [facility] Nitrite Urine Negative NEG^Negat 07/24/2018 [place] bakari 7:36 PM [facility] Leukocyte Negative NEG^Negat 07/24/2018 [place] Esterase Urine bakari 7:36 PM [facility] Source Midstream 07/24/2018 [place] Urine 7:21 PM [facility] WBC Urine 3 0 - 5 07/24/2018 [facility] /HPF 7:36 PM [facility] RBC Urine >182 (H) 0 - 2 07/24/2018 [facility] /HPF 7:36 PM [facility] Squamous 1 0 - 1 07/24/2018 [place] Epithelial /HPF /HPF 7:36 PM [facility][1] Mucous Urine Present (A) NEG^Negat 07/24/2018 [place]ari /LPF 7:36 PM [facility] Specimen (Source) Anatomical Collection Method Collection Time Re ceived Time Location / / Volume Laterality Examination of 07/24/2018 7:00 07/24/2018 7:21 midstream urine PM INFORMATION SECURITY ENGINEER PM INFORMATION SECURITY ENGINEER specimen (procedure) Orion Akers MD LAB - URINE ORDERABLES Performing Organization Address City/State/ZIP Code Phon e Number M [facility] [address] [address] [facility] [address] [phone] documented in this encounter Visit Diagnoses Not on filedocumented in this encounter Administered Medications Inactive Administered Medications - up to 3 most recent administrations Medication Order MAR Action Action Date Dose Rate Site 0.9% sodium chloride BOLUS New Bag 07/25/2018 1:49 AM INFORMATION SECURITY ENGINEER 500 mLs 500 mL/hr Intravenous, 500 mL, ONCE, at 500 mL/hr, Administer over 1 Hours, On Fri07/24/18 at 2315, For 1 dose, Wide Open [...] mL dextrose PRE-MIX Routine, 2 g, Intravenous, PRE-OP/PRE-NM OCEDURE, Starting on Fri07/25/18 at 1702, For 1 dose, Give first dose within 1 bibi r PRIOR to incision. If patient weight is greater than or equal to 120 kg increase dose to 3 g., Indications: Perioperative Pharmacoprophylaxis, Pre-procedure HYDROmorphone (PF) (DILAUDID) injection 0.2 Given 07/10 12:54 PM INFORMATION SECURITY ENGINEER 0.2 mg mg 0.2 mg, Intravenous, EVERY [...] over 2-5 minutes. Given 07/25/2018 9:02 AM INFORMATION SECURITY ENGINEER 0.2 mg Given 07/25/2018 6:23 AM INFORMATION SECURITY ENGINEER 0.2 mg HYDROmorphone (PF) (DILAUDID) injection 0.5 Given 07/24/2018 9:46 PM INFORMATION SECURITY ENGINEER 0.5 mg mg 0.5 mg, Intravenous, EVERY 30 MIN PRN, moderate to severe pain, Starting on Fri07/24/18 at 1907, For 3 doses, For ordered IV doses 0.1-4 mg give IV Push undiluted. Administer each 2mg over 2-5 minutes. Given 07/24/2018 8:20 PM INFORMATION SECURITY ENGINEER 0.5 mg HYDROmorphone (PF) (DILAUDID) injection 0.5 Given 07/24/2018 7:18 PM INFORMATION SECURITY ENGINEER 0.5 mg mg 0.5 mg, Intravenous, ONCE, On Fri07/24/18 at 1911, For 1 dose, For ordered IV doses 0.1-4 mg give IV Push undiluted. Administer each 2mg over 2-5 minutes. iopamidol 61% (ISOVUE Given 07/25/2018 4:51 PM 15 ml given Operative 300) 50 mL + sterile INFORMATION SECURITY ENGINEER Site /Surgical Site water for irrigation 50 mL PRN, Starting on 07/25/18 at 1651, Intra-procedure ketorolac (TORADOL) injection 15 mg Given 07/24/2018 7:22 PM INFORMATION SECURITY ENGINEER 15 mg 15 mg, Intravenous, ONCE, On [...] injection 0.5 mg Given 07/25/2018 11:25 AM INFORMATION SECURITY ENGINEER 0.5 mg 0.5 mg, Intravenous, EVERY 6 [...] injection 4 mg Given 07/24/2018 7:19 PM INFORMATION SECURITY ENGINEER 4 mg 4 mg, Intravenous, ONCE, Administer over 2-5 Minutes, On Fri07/24/18 at 1908, For 1 dose, Irritant. For ordered IV doses 0.1-4 mg, give IV Push undiluted over 2-5 minutes. ondansetron (ZOFRAN) injection 4 mg Given 07/25/2018 12:43 PM INFORMATION SECURITY ENGINEER 4 mg 4 mg, Intravenous, EVERY 6 [...] 6 HOURS PRN, vomiting , Starting on 07/24/18 at 2313, This is Step 2 of nausea and vomiting management . Give if nausea not resolved 15 minutes after giving ondansetron (ZOFRAN). If na usea not resolved in 15 minutes, go to Step 3 metoclopramide (REGLAN), if ordered. senna-docusate (SENOKOT-S/PERICOLACE) 8. 6-50 MG per tablet 1 tablet 1 tablet, Oral, 2 TIMES DAILY PRN, const ipation, Starting on Fri07/24/18 at 2313, If no bowel movement in [...] ee step constipation treatment. sodium chloride 0.9% (bag) Given 07/25/2018 4:52 PM 200 mLs Operative Site/Surgical irrigation INFORMATION SECURITY ENGINEER Site PRN, Starting on 07/25/18 at 1652, Intra-procedure sodium chloride 0.9% infusion New Bag 07/25/2018 9:01 AM INFORMATION SECURITY ENGINEER 125 mL/hr at 125 mL/hr, Intravenous, CONTINUOUS, Starting on Fri07/24/18 at 2315, Until 07/25/18 at 1959 Rate/Dose Verify 07/25/2018 8:13 AM INFORMATION SECURITY ENGINEER 125 mL/hr New Bag 07/24/2018 11:54 PM INFORMATION SECURITY ENGINEER 125 mL/hr documented in this encounter Active and Recently Administered Medications Times are shown in INFORMATION SECURITY ENGINEER. Scheduled Medication Order 07/23/2018 07/24/2018 07/25/2018 0.9% [...] Jaylene Sanchez RN) 15 mg, Intravenous, ONCE, Fri07/24/18 at 1908, For 1 dose, Can [...] mg, Intravenous, ONCE, Administer over 2-5 Minutes, Fri07/24/18 at 1908, For 1 dose, Irritant. For ordered IV doses 0.1-4 mg, give IV Push undiluted over 2-5 minutes. Continuous Medication Order 07/23/2018 07/24/2018 07/25/2018 lactated ringers infusion (CANCELED) 1626 (New Bag - Provider: Cj Reyes APRN CRNA)1659 (Anesthesia Volume Adjustment - Provider: Cj Reyes APRN CRNA) at 100 mL/hr, Intravenous, CONTINUOUS, C ontinue until IV catheter is weaned, PACU, Starting 07/25/18 at 1615, Until 07/25/18 at 1737 sodium chloride 0.9% infusion 2354 (New Bag - Pr ovider: Connie Jerry, SHAREE) 0813 (Rate/Dose Verify - Provider: Tobi Burgos, RN)0901 (New Bag - Provider: Tobi Burgos, RN)1501 (Stopped - Provider: Tobi Burgos, RN) at 125 mL/hr, Intravenous, CONTINUOUS, S [...] 4 grams/day. acetaminophen (TYLENOL) tablet 650 mg 1548 (Auto Hold - Provider: Orders Generic Provider - Reason: Transfer to a procedural area)1958 (Unhold - Provider: [employer] Epic) 650 mg, Oral, EVERY 4 HOURS PRN, mild pa in, Starting 07/24/18 at 2311, Alternate ibuprofen (if ordered) with acetaminophen. Maximum acetaminophen dose from all sources = 75 mg/kg/day not to exceed 4 grams/day. bisacodyl (DULCOLAX) Suppository 10 mg 1548 (Auto Hold - Provider: Orders Generic Provider - Reason: Transfer to a procedural area)1958 (Unhold - Provider: [employer]) 10 mg, Rectal, DAILY PRN, constipation, Starting 07/24/18 at 2313, Hold for loose stools. This is the third step of a three step constipation treatment. HYDROmorphone (PF) (DILAUDID) injection 0.2 mg 2354 (Given - Provider: Connie Jerry, SHAREE) 0623 (Given - Provider: Connie león RN)0902 [...] mg (CANCELED) 2019 (Given - Provider: Jaylene Sanchez RN)2145 (Given - Provider: Aide Delgado RN) 0.5 [...] 0.5 mg 1125 (Given - Provider: Tobi Burgos RN)154 (Auto Hold - Provider: Orders Generic Provider - Reason: Transfer to a procedural area)1958 (Unhold - Provider: [employer] [facility]) 0.5 mg, Intravenous, EVERY 6 HOURS PRN, muscle spasms, nausea, Starting Fri07/24/18 at 2313, This drug may cause significant respiratory depression. Monitor respiratory status and vital signs carefully for 1 hour after each dose. melatonin tablet 1 mg 1547 (Auto Hold - Provider: Orders Generic Provider - Reason: Transfer to a procedural area)1958 (Unhold - Provider: [employer]) 1 mg, Oral, AT BEDTIME PRN, sleep, Start ing Fri07/24/18 at 2311, Do not give unless at least 6 hours of uninterrupted sleep is expected. naloxone (NARCAN) injection 0.1-0.4 mg 1547 (Auto Hold - Provider: Orders Generic Provider - Reason: Transfer to a procedural area)1958 (Unhold - Provider: [employer] [facility]) 0.1-0.4 mg, Intravenous, EVERY 2 MIN PRN , opioid reversal, Starting Fri07/24/18 at 2311, For respiratory rate LESS than [...] 1) 1243 (Given - Provider: Tobi Burgos RN)154 (Auto Hold - Provider: Orders Generic Provider [...] not required. oxyCODONE (ROXICODONE) tablet 5-10 mg 154 (Auto Hold - Provider: Orders Generic Provider - Reason: Transfer to a procedural area)1959 (Unhold - Provider: [employer]) 5-10 mg, [...] g, Oral, DAILY PRN, constipation, Sta rting Fri07/24/18 at 2313, Give in 8oz of water, [...] ausea, vomiting, Administer over 1-2 Minutes, Starting Fri07/24/18 at 2313, This is Step 2 [...] PRN, nause a, vomiting, Starting Fri07/24/18 at 2313, This is Step 2 [...] MG per tablet 1 tablet(Linked Group 3) 1547 (Auto Hold - Pr ovider: Orders Generic [...] MG per tablet 2 tablet(Linked Group 3) 1547 (Auto Hold - Pr ovider: Orders Generic [...] PRN, nause a, vomiting, Starting 07/24/18 at 2313
This is Step [...] PRN, const ipation, Starting 07/24/18 at 2313
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
--- OUTSIDE RECORDS SUMMARY | 2022-04-11 21:42 | XMS_ITS | Encounter Summary ---
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
--- OUTSIDE RECORDS SUMMARY | 2022-04-11 21:43 | XMS_ITS | Encounter Summary ---
:1975 Author Organization [place] Address [address] [facility] [place] [address] Care Team Providers Name Role Phone Yony Garcia PA-C Primary Care Provider [phone] Yony Garcia PA-C Unavailable [phone] Yony Garcia PA-C Unavailable [phone] Reason for Visit Auth/Cert Specialty Diagnoses / Procedures Referred By Contact Refer red To Contact Surgery Diagnoses post ablation pain syndrome Rh Periop Services Procedures DAVINCI HYSTERECTOMY TOTAL [address] [place] [phone] Phone: Fax: Referral ID Status Reason Start Date Expiration Date Visits Requ ested Visits Authorized [id number] 1 1 Encounter Details Date Type Department Care Team Description 02/05/2017 Hospital Encounter [facility] Jeimy Christensen S/ P hysterectomy [place] PreOP/PostOP DO [place] (Primary Dx) [address] [facility] [address] [facility] [id number] [facility] [phone] [place] [address] Social History Tobacco Use Types Packs/Day Years [...] Sign Reading Time Taken Comments Blood Pressure 137/71 02/05/2017 1:50 PM CDT Pulse 82 02/05/2017 6:28 AM CDT Temperature 36.2 ??C (97.2 ??F) 02/05/2017 2:20 PM CDT Respiratory Rate 14 02/05/2017 2:20 PM CDT Oxygen Saturation 94% 02/05/2017 2:20 PM CDT Inhaled Oxygen Concentration - - Weight 104.3 kg (230 lb) 02/05/2017 6:28 AM CDT Height 167.6 cm (5' 6) 02/05/2017 6:28 AM CDT pt state d Body Mass Index 37.12 02/05/2017 6:28 AM CDT documented in this encounter Discharge Summaries Jeimy Christensen DO - 02/05/2017 9:55 AM CDT 41 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 Jeimy Christensen DO Obstetrics and Gynecology [facility] and [place] documented in this encounter Discharge Instructions Discharge InstructionsAndreia Angelo RN - 02/05/2017 1:16 PM CDT Follow up in 1-2 weeks Call [phone] or [phone] for appointment Call and ask to be seen or talk to a doctor for the following: (You can go to the ob triage button On answering service line) . Increased bleeding, fever, general unwell feeling or increased pain. Dr. Jeimy Christensen DO CAFE OPERATOR [facility] GENERAL ANESTHESIA OR SEDATION ADULT DISCHARGE INSTRUCTIONS [...] STILL NOT ABLE TO URINATE (PASS WATER). LAPAROSCOPIC HYSTERECTOMY DISCHARGE INSTRUCTIONS PLEASE RETURN TO THE CLINIC IN: ____1-2 WEEKS MAKE THIS APPOINTMENT AFTER YOU GET HOME IF IT HAS NOT ALREADY BEEN SCHEDULED. YOU HAVE HAD A HYSTERECTOMY (SURGERY TO REMOVE YOUR UTERUS). YOU CANNOT HAVE CHILDREN AFTER THIS SURGERY. YOU WILL NO LONGER HAVE MONTHLY PERIODS, UNLESS YOU STILL HAVE YOUR CERVIX (CALLED SUBTOTAL HYSTERECTOMY). IN THIS CASE, YOU MAY HAVE LIGHT MONTHLY BLEEDING. DIET YOU MAY FEEL LESS HUNGRY AT FIRST. TRY TO EAT A WELL-BALANCED DIET WITH LOTS OF PROTEINS, FRUITS, VEGETABLES AND WHOLE GRAINS. AVOID SPICY AND GREASY FOODS. DRINK PLENTY OF FLUIDS--AT LEAST 8 TALL GLASSES A DAY. WATER IS BEST. TRY TO LIMIT CAFFEINE (FOUND IN COFFEE, TEA AND COLA DRINKS). THIS HELPS PREVENT CONSTIPATION (HARD STOOLS THAT ARE DIFFICULT TO PASS). IF CONSTIPATION IS A PROBLEM, YOU MAY TAKE ONE OF THESE MEDICINES: DOCUSATE (COLACE), DOCUSATE WITH CASANTHRANOL (OSCAR-COLACE), PSYLLIUM (METAMUCIL) OR MILK OF MAGNESIA. YOU CAN BUY THESE AT THE DRUG STORE. FOLLOW THE INSTRUCTIONS LISTED ON THE LABEL. ACTIVITY YOU WILL NEED PLENTY OF REST AT FIRST. SLOWLY GO BACK TO YOUR NORMAL ACTIVITIES. IT WILL HELP TO TAKE SEVERAL SHORT WALKS DURING THE DAY. IT IS OKAY TO CLIMB STAIRS, BUT USE THE HANDRAIL IN CASE YOU GET DIZZY. DO NOT DRIVE WHILE USING STRONG PAIN MEDICINE (NARCOTICS). AFTER THAT, DO NOT DRIVE UNTIL YOU CAN STOMP ON THE BRAKES WITHOUT PAIN. DO NOT USE TAMPONS, DOUCHE OR HAVE SEX (INTERCOURSE) UNTIL YOU SEE YOUR DOCTOR AGAIN. DON'T LIFT OR PUSH ANYTHING OVER 20 POUNDS UNTIL YOUR DOCTOR SAYS IT'S SAFE. AVOID HEAVY OR STRENUOUS EXERCISE. YOUR DOCTOR WILL TELL YOU WHEN YOU CAN SAFELY RETURN TO WORK. PAIN CONTROL YOU MAY HAVE PAIN AROUND YOUR INCISIONS (SURGERY WOUNDS). THIS SHOULD IMPROVE OVER THE NEXT WEEK. USE YOUR PAIN MEDICINE DIRECTED. IF YOU HAVE INCREASED PAIN, PLEASE CALL YOUR CLINIC. IT IS NORMAL TO FEEL A LITTLE SORE AFTER MILD EXERCISE. FOR THE NEXT TWO DAYS, YOU MAY HAVE SOME PAIN IN YOUR SHOULDERS AND UPPER CHEST. THIS IS FROM THE AIR PUMPED INTO YOUR BODY DURING THE SURGERY. TO RELIEVE THIS TYPE OF PAIN, YOU MAY TAKE TYLENOL (ACETAMINOPHEN) OR ADVIL (IBUPROFEN). FOLLOW THE INSTRUCTIONS LISTED ON THE LABEL. DRINK A FULL GLASS OF WATER WITH EACH DOSE. YOU CAN ALSO TRY LYING FLAT OR RAISING YOUR HIPS ABOVE SHOULDER LEVEL. BATHING YOU MAY SHOWER OR BATHE AT ANY TIME. IF YOU TAKE A BATH, DON'T ADD ANYTHING TO THE BATH WATER. CARING FOR YOUR STITCHES YOUR BODY WILL ABSORB YOUR STITCHES OVER TIME. KEEP THEM CLEAN AND DRY. WEAR LOOSE, COMFORTABLE CLOTHES. NORMAL SYMPTOMS YOU MAY NOTICE A SMALL AMOUNT OF BLEEDING FROM YOUR VAGINA. THIS COULD LAST UP TO A WEEK. YOU MAY ALSO HAVE BROWN FLUID LEAKING FROM THE VAGINA. THIS COULD LAST FOR A FEW WEEKS. WEAR PADS NEEDED. YOU MAY HAVE BRUISING ON YOUR BELLY. YOU MIGHT ALSO HAVE A PUFFY FEELING IN YOUR BELLY. YOU MAY SEE A LITTLE BLOOD OR FLUID OOZING FROM THE INCISION. HORMONES IF WE REMOVED YOUR OVARIES, YOU MAY NEED HORMONE MEDICINE (HT, OR HORMONE THERAPY). DISCUSS THIS WITH YOUR DOCTOR. IF WE DID NOT REMOVE YOUR OVARIES, YOU SHOULD REACH MENOPAUSE AT THE NORMAL TIME (IN GENERAL, BETWEEN AGES 40 AND 55). CALL YOUR DOCTOR IF YOU HAVE: SEVERE CHILLS AND FEVER OF 100.4 DEGREES FAHRENHEIT OR HIGHER, TAKEN UNDER THE TONGUE. BRIGHT RED BLOOD OR LARGE CLOTS COMING OUT OF THE VAGINA--ENOUGH TO SOAK ONE PAD IN AN HOUR. INCREASED PAIN, WARMTH, SWELLING, REDNESS, BLEEDING OR FLUID LEAKING FROM THE SURGERY SITE. URINE OR VAGINAL FLUID THAT SMELLS BAD. YOU CANNOT URINATE (USE THE TOILET), IT VALLEJO WHEN YOU URINATE OR YOU NEED TO GO MORE OFTEN. SEVERE NAUSEA (FEELING SICK TO YOUR STOMACH) OR VOMITING (THROWING UP). INCREASED PAIN THAT YOU CANNOT CONTROL WITH MEDICINE. CYSTOSCOPY DISCHARGE INSTRUCTIONS YOU MAY GO BACK TO YOUR NORMAL [...] SURGEON IF YOU HAVE: A FEVER OVER 100 DEGREES FOR MORE THAN A DAY. CHECK YOUR TEMPERATURE UNDER YOUR TONGUE. CHILLS. [...] PAIN THAT GETS WORSE AFTER TWO DAYS. MEDICATIONS YOU RECEIVED: You received Toradol, an IV form of ibuprofen (Motrin) at 7:00 am. Do not take any ibuprofen products until 1:00 pm. Maximum acetaminophen (Tylenol) dose from all sources should not exceed 4 grams (4000 mg) per day. So far today you've had 975 mg. Since you received Pyridium prior to surgery, your urine may be a red/orange color for the remainderof today. You received 1 Oxycodone (5 mg) at 12:00 PM. documented in this encounter Medications at Time of Discharge Medication Sig Dispensed Refills Start Date End Date docusate sodium (COLACE) Take 100 mg by mouth 60 tablet 1 0 02/05/2017 09/24/2017 100 MG daily tabletIndications: S/P hysterectomy DULoxetine (CYMBALTA) 60 Take 1 capsule (60 90 capsule 1 06/12/2017 MG EC mg) by mouth daily capsuleIndications: Major depressive disorder, recurrent episode, mild (H) ibuprofen (ADVIL/MOTRIN) Take 1 tablet (800 90 tablet 1 09/24/2017 800 MG mg) by mouth every 8 tabletIndications: S/P hours as needed for hysterectomy moderate pain oxyCODONE (ROXICODONE) 5 Take 1 tablet (5 mg) 30 tablet 0 0 02/05/2017 09/24/2017 MG IR tabletIndications: by mouth every 4 S/P hysterectomy hours as needed for pain maximum 6 tablet(s) per day documented as of this encounter H&P Notes Merna Enriquez - 02/04/2017 10:57 AM CDT This note is for the purpose of making the H&P performed in clinic within the last 30 days available in the hospital surgical encounter. Source Note - Yony Garcia PA-C - 01/30/2017 8:34 AM CDT [address], [address] [facility] [id number] Dept: [phone] PRE-OP EVALUATION: Today's date: 01/30/2017 Dariana Osman (: 1975) presents for pre-operative evaluation assessment as requested by Dr. Jeimy Christensen. 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 Proposed procedure: davinci hysterectomy total Date of Surgery/ Procedure: 02/05/2017 Time of Surgery/ Procedure: 940am Hospital/Surgical Facility: [place] Fax number for surgical facility: Primary Physician: Esmer Roland Type of Anesthesia Anticipated: General Patient has a Health Care Directive or Living Will: YES code status on file Preop Questions 01/29/2017 1. Do you have a history of heart attack, stroke, stent, bypass or surgery on an artery in the head,neck, heart or legs? No 2. Do you ever have any pain or discomfort in your chest? No 3. Do you have a history of Heart Failure? No 4. Are you troubled by shortness of breath when: walking on a level surface, or up a slight hill, orat night? No 5. Do you currently have a cold, bronchitis or other respiratory infection? No 6. Do you have a cough, shortness of breath, or wheezing? No 7. Do you sometimes get pains in the calves of your legs when you walk? No 8. Do you or anyone in your family have previous history of blood clots? No 9. Do you or does anyone in your family have a serious bleeding problem such as prolonged bleeding following surgeries or cuts? No 10. Have you ever had problems with anemia or been told to take iron pills? No 11. Have you had any abnormal blood loss such as black, tarry or bloody stools, or abnormal vaginal bleeding? No 12. Have you ever had a blood transfusion? No 13. Have you or any of your relatives ever had problems with anesthesia? No 14. Do you have sleep apnea, excessive snoring or daytime drowsiness? No 15. Do you have any prosthetic heart valves? No 16. Do you have prosthetic joints? No 17. Is there any chance that you may be ? No HPI: Brief HPI related to upcoming procedure: Dariana will be having a hysterectomy on Feb 05 due to a history of pain and heavy bleeding. She does not have any current complaints. She has a history of depression that is currently well controlled on Cymbalta. See problem list for active medical problems. Problems all longstanding and stable, except as noted/documented. See ROS for pertinent symptoms related to these conditions. . MEDICAL HISTORY: Patient Active Problem List Diagnosis Date Noted ??? Renal colic 01/18/2016 Priority: Medium ??? Chronic migraine without aura without status migrainosus, not intractable 09/19/2015 Priority: Medium ??? obesity due to excess calories (HCC) 06/16/2015 Priority: Medium ??? Major depressive disorder, recurrent episode, mild (H) 06/16/2015 Priority: Medium ??? Family history of thyroid disease in father 07/08/2014 Priority: Medium ??? BMI 34.0-34.9,adult 07/08/2014 Priority: Medium ??? BRIGID II (cervical intraepithelial neoplasia II) 11/23/2012 Priority: Medium 2008 NIL paps (ajk) 11/07/09 EMB - neg for dysplasia (ajk) 11/09/10 NIL pap (ajk) 11/23/12 ASC-H. 12/25/12 [place]= BRIGID 2. Referred to Ob~General Supervisor, Dr. Christensen 02/18/13 LEEP= Negative, R/P pap in 6 and 12 months. Due 08/2013 and 02/201410/01/13 Dx pap= Normal. Repeat co-testing in 6 months. 07/08/14 Pap= Normal, Neg HPV. 1 yr co-testing per guidelines. 07/20/15 EMB - neg for dysplasia (ajk) 11/21/16 Would consider patient to be lost to follow-up. 12/24/16 ASCUS pap, neg HR HPV (ajk). Plan: colp within 3 months or cotest in 1 year ??? Obesity 03/11/2012 Priority: Medium ??? Abnormal uterine bleeding 11/09/2010 Priority: Medium ??? CARDIOVASCULAR SCREENING; LDL GOAL LESS THAN 160 04/08/2010 Priority: Medium ??? Vitamin D deficiency 10/24/2009 Priority: Medium ??? Insomnia 05/19/2008 Priority: Medium ??? Anxiety state Priority: Medium Problem list name updated by automated process. Provider to review Past Medical History: Diagnosis Date ??? Anxiety state, unspecified ??? ASCUS of cervix with negative high risk HPV 12/24/2016 ??? Calculus of kidney ??? Depressive disorder ??? Depressive disorder, not [...] REMV 04/08/08 Left. Ureterscopic laser. Stent. ??? ENT SURGERY Removal of tonsils and adnoids when I was younger ??? HC TOOTH EXTRACTION W/FORCEP ??? LEEP TX, CERVICAL 02/18/13 Negative ??? ORTHOPEDIC SURGERY Arthoscopy on right ankle Current Outpatient Prescriptions Medication Sig Dispense Refill ??? DULoxetine (CYMBALTA) 60 MG EC capsule Take 1 capsule (60 mg) by mouth daily 90 capsule 1 ??? [DISCONTINUED] DULoxetine (CYMBALTA) 30 MG EC capsule Take 1 capsule (30 mg) by mouth daily Takeone capsule by mouth every day with 60 mg tablet if needed to wean down. (Patient not taking: Reported on 12/24/2016) 30 capsule 0 OTC products: None, except as noted above No Known Allergies Latex Allergy: NO Social History Substance Use Topics ??? Smoking status: Former Smoker ??? Smokeless tobacco: Never Used Comment: Very Occasional ??? Alcohol use 0.0 oz/week Comment: 1 TIME A a week(1 glass of wine) 1 qo weekend History Drug Use No REVIEW OF SYSTEMS: Constitutional, HEENT, cardiovascular, pulmonary, gi and gu systems are negative, except as otherwise noted. EXAM: BP 110/80 (BP Location: Right arm, Patient Position: Chair, Cuff Size: Adult Large) Pulse 81 Temp 98.2 ??F (36.8 ??C) (Oral) Resp 16 Ht 5' 6 (1.676 m) Wt 233 lb (105.7 kg) SpO2 97% BMI 37.61 kg/m2 GENERAL APPEARANCE: healthy, alert and no distress [...] and affect normal/bright LYMPHATICS: No axillary, cervical, or supraclavicular nodes DIAGNOSTICS: Labs Drawn and in Process: CBC Recent Labs Lab Test 01/18/16 0700 12/16/15 1427 12/30/10 1325 HGB 13.9 14.4 < > 12.9 PLT 271 305 < > 230 INR -- -- -- 0.91 NA 137 140 < > 140 POTASSIUM 3.8 4.6 < > 4.0 CR 0.83 1.00 < > 0.77 < > = values in this interval not displayed. IMPRESSION: Reason for surgery/procedure: abnormal uterine bleeding Diagnosis/reason for consult: pre op exam The proposed surgical procedure is considered INTERMEDIATE risk. REVISED CARDIAC RISK INDEX The patient has the following serious cardiovascular risks for perioperative complications such as (NC, PE, VFib and 3?? AV Block): No serious cardiac risks INTERPRETATION: 0 risks: Class I (very low risk - 0.4% complication rate) The patient has the following additional risks for perioperative complications: No identified additional risks ICD-10-CM 1. Preop general physical exam Z01.818 RECOMMENDATIONS: --Patient is to take all scheduled medications on the day of surgery EXCEPT for modifications listedbelow. APPROVAL GIVEN to proceed with proposed procedure, without further diagnostic evaluation Signed Electronically by: Yony Garcia PA-C Copy of this evaluation report is provided to requesting physician. [facility] Preop Guidelines documented in this encounter Nursing Notes Awilda Shook RN - 02/05/2017 9:55 AM CDT Late Entry: No pre op EKG needed per Dr. Us. 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 Radiological Metallurgist: Allyson Holloway SA PROCEDURES: 1. Robotic-assisted total laparoscopic hysterectomy. 2. Endometriosis resection 3. Cystoscopy. 4. Adhesion prevention with Seprafilm/Slurry. COMPLICATIONS: None. ESTIMATED BLOOD LOSS: 50 cc. IV FLUIDS: 1200 cc of lactated Ringer's. COMPLICATIONS: None apparent at time of procedure. FINDINGS: Approximately 12-week size uterus. Normal bowel and liver. The appendix was not visualized. Lesions suspicious for endometriosis on the right pelvic sidewall, on the colon and on the right uterine cornua. Uterus is boggy which is suspicious for adenomyosis. Findings upon cystoscopy include normal bladder epithelium, bilateral extrusion of pyridium from theright and left ureteral orifice. INDICATION: TE is very pleasant 41 year-old, , who comes in with post ablation syndrome, pelvic pain. She has had a previous endometrial ablation and laparoscopic bilateral tubal ligation via salpingectomy. PATHOLOGY FINDINGS: pending DESCRIPTION OF PROCEDURE: After informed consent was signed, the patient was taken to the operating room where she was placed in dorsal supine position, placed under general anesthesia without difficulty. The patient was prepped and draped in normal sterile fashion and placed in dorsal lithotomy position. A time out was performed. Exam under anesthesia reveals a 12 week size anteverted uterus. The patient was prepped and draped in normal sterile fashion. Full timeout was performed. The patient was given Ancef, clindamycin preoperatively. A Brock catheter was placed. [place] speculum was placed in the patient's vaginal vault. Anterior lip of cervix was grasped with a single-tooth tenaculum, and a duafrz-sf-okzca suture of 0 monocryl is placed on the anterior lip of the cervix, and then the x-largeVCare manipulator was placed. The bivalve speculum was removed. Attention was turned to the patient's abdomen, where the Ethan clamps were clamped on umbilicus and a Veress needle was placed directly jacome praumbilically. The saline is placed to flow through, and it flowed through nicely. Intraoperative pressure when the gas was placed on was noted to be 1 mmHg, 3.5 liters of CO2 was insufflated. A 12 mmincision was made with the scalpel in the umbilicus, and the 12 mm trocar was placed directly. Confirmation of intraabdominal placement is obtained via laparoscope. Two 8 mm incisions were made bilaterally 2 cm anterior and superior to the ASIS and then the ports were placed. An air-seal assistant plant manager port was placed in the right medial lateral port. Peritoneal mapping was performed with lidocaine beforeall of this. The patient was then placed into Trendelenburg, and the bowel was swept. The robot was docked, and the instruments were placed. The finding are noted above. The ureters are identified prior to beginning and peristalsis is noted. Attention was then turned toward the right uterine ovarian ligament and round ligament, which are identified, coagulated and incised. Anterior and posterior leafof the broad ligament are incised. The uterine artery is identified and incised. The bladder flap was created. Attention then turned to the left side, where the left uteroovarian ligament and the roundligament were identified, coagulated and incised. The anterior and posterior leaf of the broad ligament on the left side was then incised, and the uterine artery is identified, coagulated and incised. The bladder flap was then created across as I dissected down. The colpotomy was then made with monopolar cautery on cut power, and when this was completely done, the uterus was delivered through the vagina. The vaginal cuff was closed with a O V-lock suture in a running fashion, a 2 layer closure was performed incorporating the uterosacral ligaments in to the closure and then bladder peritoneum was re-approximated to the posterior peritoneum with a continuation of the same suture. Hemostasis was assured with cautery and then last was applied for some bleeding on the left corner of the vaginal cuff. Hemostasis is noted. The right pelvic sidewall endometriotic lesion was resected. Hemostasis is noted. Bilateral ureteral peristalsis is noted. I then scrubbed back in. The robot was undocked. Lidocaine mixture and seprafilm slurry was placed into the abdomen. The 12 mm port was removed and the fascia was closed with a volodymyr- deras device with excellent closure of the fascia noted. Then the remaining trocars were then removed, and the skin was closed with a subq 4-0 Monocryl tissue and Dermabondwas applied. Sponge, lap and needle counts were correct x2. I then removed the brock catheter and performed a cystoscopy. I saw bilateral extrusion of pyridium from the right and left ureteral orifice,along with normal bladder epithelium. and normal distention of the bladder. Cystoscopy was terminated. The vaginal cuff was inspected and found to be hemostatic with excellent vaginal support. Sponge, lab and needle counts were correct x 2 The patient tolerated the procedure well. Dr. Jeimy Christensen DO CAFE OPERATOR [facility] Brief Op Note - Jeimy Christensen DO - 02/05/2017 9:50 AM CDT [facility] Brief Operative Note Pre-operative diagnosis: post ablation pain syndrome Post-operative diagnosis 41 y/o female with post ablation syndrome, pelvic pain s/p robotic assistedtotal laparoscopic hysterectomy cystoscopy, endometriosis resection Procedure: Procedure(s): DAVINCI HYSTERECTOMY TOTAL, cystoscopy - Wound Class: II-Clean Contaminated Surgeon(s): Surgeon(s) and Role: * Jeimy Christensen DO - Primary Estimated blood loss: 100 mL Specimens: ID Type Source Tests Collected by Time Destination A : Tissue Uterus and Cervix SURGICAL PATHOLOGY EXAM Jeimy Christensen DO 02/05/2017 8:48 AM B : Right pelvic sidewall Tissue Pelvic Sidewall SURGICAL PATHOLOGY EXAM Jeimy Christensen DO 02/05/2017 9:19 AM Findings: Uterus boggy with signs of adenomyosis, normal ovaries, fallopian tubes are surgically absent Brief Op Note - Jeimy Christensen DO - 02/05/2017 9:48 AM CDT [facility] Brief Operative Note Pre-operative diagnosis: post ablation pain syndrome Post-operative diagnosis 41 y/o female with post ablation syndrome, pelvic pain s/p robotic assistedtotal laparoscopic hysterectomy cystoscopy Procedure: Procedure(s): DAVINCI HYSTERECTOMY TOTAL, cystoscopy - Wound Class: II-Clean Contaminated Surgeon(s): Surgeon(s) and Role: * Jeimy Christensen DO - Primary Estimated blood loss: 100 mL Specimens: ID Type Source Tests Collected by Time Destination A : Tissue Uterus and Cervix SURGICAL PATHOLOGY EXAM Jeimy Christensen DO 02/05/2017 8:48 AM B : Right pelvic sidewall Tissue Pelvic Sidewall SURGICAL PATHOLOGY EXAM Jeimy Christensen DO 02/05/2017 9:19 AM Findings: Uterus boggy signs of adenomyosis, fallopian tubes surgically absent, normal ovaries, endometriosis on uterus, colon and right pelvic sidewall documented in this encounter Plan of Treatment Not on filedocumented as of this encounter Procedures Procedure Name Priority Date/Time Associated Diagnosis Comme nts SURGICAL PATHOLOGY Routine 02/05/2017 8:48 AM Res ults for this EXAM CDT procedure are i n the results section. HYSTERECTOMY, 02/05/2017 7:31 AM 41 y/o female with TOTAL, CDT post ablation ROBOT-ASSISTED syndrome, pelvic pain s/p robotic assisted total laparoscopic hysterectomy cystoscopy, endometriosis resection Special Needs Ht- 5'6 Wt- 233# Per H&P BM I=37.6 HCG QUALITATIVE URINE STAT 02/05/2017 6:15 AM CDT Results for this procedure are in the results sec tion. documented in this encounter Results Surgical pathology exam (02/05/2017 8:48 AM CDT) Component Value Ref Test Analysis Performed At [facility] Method Time Signature Copath Report Patient Name: DARIANA OSMAN MR#: [id number] Specimen #: [id number] Collected: 02/05/2017 Received: 02/05/2017 Reported: 02/06/2017 11:14 Ordering Phy(s): JEIMY CHRISTENSEN For improved result formatting, select 'View Enhanced Report Format' under Linked Documents section. SPECIMEN(S): A: Uterus and cervix B: Right pelvic sidewall biopsy FINAL DIAGNOSIS: A: Uterus and cervix, hysterectomy. - Cervix without evidence of dysplasia with focal cervical endometriosis. - Secretory endometrium without evidence of hyperplasia. - Uterine adenomyosis. - Negative for malignancy. B: Right pelvic sidewall, biopsy. - Endometriosis. ??Negative for malignancy. Electronically signed out by: Blake Scruggs M.D. CLINICAL HISTORY: Post ablation pain syndrome. GROSS: A: ??The specimen is received in formalin with patient ident ification and labeled uterus and cervix . ??It consists of a 167 g, 8.5 x 6.5 x 4.5 cm hysterectomy specimen. ??The serosa is pink-purple, focal ly hemorrhagic with few wispy adhesions. ??The ectocervical muc isaac is pink-sancehz and smooth. The triangular partially stenotic is li gildardo by pink, lush endometrium which is up to 0.3 cm thick. ??No masses or polyps are identified. The myometrium is pink, rubbery with vaguely dem arcated, coarsely trabeculated areas. Summary of Sections: 1 - anterior cervix. 2 - posterior cervix. 3-4 - anterior endomyometrium with associated vaguely trabec ulated myometrium. 5-6 - posterior endomyometrium with associated vaguely trabe cular myometrium. 7 - additional section of the vaguely trabeculated myometriu m. B: ??The specimen is received in formalin labeled with the p atient's name, identifying information and right pelvic sidewall. ? ?It consists of a 0.8 cm pink rubbery tissue fragment. ??Submitted entire ly in one block. (Dictated by: Сергей Gonzalez 02/05/2017 03:18 PM) MICROSCOPIC: A and B. Microscopic evaluation performed. CPT Codes: A: 11269-SO4 B: 61917-FK3 TESTING LAB LOCATION: [address] ??[address] COLLECTION SITE: Client: [facility] Location: [facility] (R) Specimen (Source) Anatomical Collection Method Collection Time Re ceived Time Location / / Volume Laterality Tissue specimen UTERUS AND CERVIX, 02/05/2017 8:48 AM (specimen) CS / Unknown CDT Tissue specimen PELVIC WALL 02/05/2017 9:19 AM (specimen) STRUCTURE / CDT Unknown Jeimy Christensen DO LAB - BEAKER AP Performing Organization Address City/State/ZIP Code Phon e Number COPATH HCG qualitative urine (02/05/2017 6:15 AM CDT) athologist Signature HCG Qual Urine Negative NEG^Negati 02/05/2017 [facility] 6:34 AM CDT [facility] Comment: This test is for screening purposes. ??R esults should be interpreted along with the clinical picture. ??Confirmation te sting is available if warranted by ordering [id number], HCG Quantitative Pregna ncy. 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 documented in this encounter Administered Medications Inactive Administered Medications - up to 3 most recent administrations Medication Order MAR Action Action Date Dose Rate Site acetaminophen (TYLENOL) tablet 975 Given 02/05/2017 6:49 AM CDT 975 mg mg 975 mg, Oral, ONCE, On Fri02/05/17 at 0645, For 1 dose, Maximum acetaminophen dose from all sources = 75 mg/kg/day not to exceed 4 grams/day., Pre-procedure fentaNYL (PF) (SUBLIMAZE) injection 25-50 Given 02/05/2017 11:40 AM CDT 50 mcg mcg 25-50 mcg, Intravenous, EVERY 5 MIN PRN, other, acute pain while in PACU., Starting on Fri02/05/17 at 1008, MAX cumulative dose = 250 mcg. Use Fentanyl initially, as a short acting agent for acute pain control. If insufficient, or a longer acting agent is needed, begin Morphine or Hydromorphone if ordered. , PACU Given 02/05/2017 10:54 AM CDT 50 mcg Given 02/05/2017 10:36 AM CDT 50 mcg HYDROmorphone (PF) (DILAUDID) injection Given 02/05/2017 11:20 A M CDT 0.5 mg 0.3-0.5 mg 0.3-0.5 mg, Intravenous, EVERY 10 MIN PRN, other, acute pain.?May administer if Respiratory Rate is greater than 10, Starting on Fri02/05/17 at 1009, If fentanyl is also ordered, use HYDROmorphone if pain control insufficient with fentanyl or a longer acting agent is needed. Max cumulative dose = 2 mg, PACU/Phase II Given 02/05/2017 10:43 AM CDT 0.5 mg Given 02/05/2017 10:30 AM CDT 0.5 mg ketorolac (TORADOL) injection 30 mg Given 02/05/2017 6:58 AM CDT 30 mg 30 mg, Intravenous, ONCE, On Fri02/05/17 at 0645, For 1 dose, For pain. Give 1 hour prior to procedure., Pre-procedure lactated ringers infusion New Bag 02/05/2017 10:55 AM CDT 100 mL/hr at 100 mL/hr, Intravenous, CONTINUOUS, Continue until IV catheter is weaned, PACU/Phase II, Starting on Fri02/05/17 at 1015, Until Fri02/05/17 at 1639 ondansetron (ZOFRAN) injection 4 mg Given 02/05/2017 1:10 PM CDT 4 mg 4 mg, Intravenous, EVERY 30 MIN PRN, nausea, vomiting, Administer over 2-5 Minutes, Starting on Fri02/05/17 at 1009, For 2 doses, MAX total dose = 8 mg, including OR dosing. This is step 1 of the nausea and vomiting protocol. If not resolved in 15 minutes, then go to step 2 (Prochlorperazine if ordered). Irritant., PACU/Phase II ondansetron (ZOFRAN-ODT) ODT tab 4 mg 4 mg, Oral, EVERY 30 MIN PRN, nausea, vo miting, Starting on Fri02/05/17 at 1009, For 2 doses, MAX total dose = 8 mg, including OR dosin g. This is step 1 of the nausea and vomiting protocol. If not resolved in 15 mi nutes, then go to step 2 (Prochlorperazine if ordered)., PACU/Phase II oxyCODONE (ROXICODONE) IR tablet 5 mg Given 02/05/2017 12:01 PM CDT 5 mg 5 mg, Oral, EVERY 4 HOURS PRN, moderate to severe pain, Starting on Fri02/05/17 at 1201, Post-procedure phenazopyridine (PYRIDIUM) tablet 200 mg Given 02/05/2017 6:49 AM CDT 200 mg 200 mg, Oral, ONCE, On Fri02/05/17 at 0645, For 1 dose, Give in preop holding room with small sip of water., Pre-procedure documented in this encounter Active and Recently Administered Medications Times are shown in CDT. Scheduled Medication Order 02/03/2017 02/04/2017 02/05/2017 acetaminophen (TYLENOL) tablet 975 mg (COMPLETED) 648 (Given - Provider: Awilda Shook RN) 975 mg, Oral, ONCE, Fri02/05/17 at 0645, For 1 dose, Maximum acetaminophen dose from all sources = 75 mg/kg/day not to exceed 4 grams/day., Pre-procedure ceFAZolin sodium-dextrose (ANCEF) infusion 2 g (COMPLETED) 801 (Given - Provider: Clare Das, OPHTHALMIC ASSISTANT WOOD CUTTER) 2 g, Intravenous, PRE-OP/PRE-PROCEDURE, Starting Fri02/05/17 at 0633, For 1 dose, Give first dose within 1 hour PRIOR to incision. If patient weight is greater than or equal to 120 kg increase dose to 3 g., Indications: Surgical Prophylaxis, Pre-procedure ketorolac (TORADOL) injection 30 mg (COMPLETED) 58 (Given - Provider: Awilda Shook RN) 30 mg, Intravenous, ONCE, Fri02/05/17 at 0645, For 1 dose, For pain. Give 1 hour prior to procedure., Pre-procedure phenazopyridine (PYRIDIUM) tablet 200 mg (COMPLETED) 49 (Given - Provider: Awilda Shook RN) 200 mg, Oral, ONCE, Fri02/05/17 at 0645, For 1 dose, Give in preop holding room with small sip of water., Pre-procedure Continuous Medication Order 02/03/2017 02/04/2017 02/05/2017 lactated ringers infusion 1055 ( New Bag - Provider: Agnieszka Pretty, SHAREE) at 100 mL/hr, Intravenous, CONTINUOUS, C ontinue until IV catheter is weaned, PACU/Phase II, Starting Fri02/05/17 at 1015, Until Fri02/05/17 at 1639 PRN Medication Order 02/03/2017 02/04/2017 02/05/2017 bupivacaine (MARCAINE) 0.25 % injection (CANCELED) 0930 (Given - Provider: Jeimy Christensen DO) PRN, Starting Fri02/05/17 at 0930, Intra-procedure bupivacaine 0.5 % - EPINEPHrine 1:200,000 injection (CANCELED) 0900 (Given - Provider: Jeimy Christensen DO) PRN, Starting Fri02/05/17 at 0900, Intra-procedure fentaNYL (PF) (SUBLIMAZE) injection 25-50 mcg (CANCELED) 1016 (Given - Provider: Awilda Shook RN)1023 (Given - Provider: Awilda Shook RN)1036 (Given - Provider: Agnieszka Pretty RN)1054 (Given - Provider: Agnieszka Pretty, RN)1140 (Given - Provider: Agnieszka Pretty RN) 25-50 mcg, Intravenous, EVERY 5 MIN PRN, Starting Fri02/05/17 at 1008, other, acute pain while in PACU., MAX cumulative dose = 250 mcg. Use Fentanyl initially, as a short acting agent for acute pain con trol. If insufficient, or a longer actin g agent is needed, begin Morphine or Hydromorphone if ordered. , PACU fentaNYL (PF) (SUBLIMAZE) injection 25-50 mcg 25-50 mcg, Intravenous, EVERY 15 MIN PRN , Starting Fri02/05/17 at 1009, other, acute pain while in Phase II, MAX cumulative dose = 250 mcg. Use Fentanyl initially, as a short acting agent for acute pain control. If insufficient, or a longer a cting agent is needed, begin Morphine or Hydromorphone if ordered., Phase ll HYDROmorphone (PF) (DILAUDID) injection 0.3-0.5 mg 1030 (Given - Provider: Agnieszka M Petit, RN)1043 (Given - Provider: Agnieszka Pretty, RN)1120 (Given - Provider: Agnieszka Pretty, RN) 0.3-0.5 mg, Intravenous, EVERY 10 MIN WI N, Starting Fri02/05/17 at 1009, Until Fri02/05/17 at 1639, other, acute pain.?May administer if Respiratory Rate is greater than 10, PACU/Phase II, If fentany l is also ordered, use HYDROmorphone if pain control insufficient with fentanyl or a longer acting agent is needed. Max cumulative dose = 2 mg ketorolac (TORADOL) injection 30 mg 30 mg, Intravenous, EVERY 6 HOURS PRN, S tarting Fri02/05/17 at 1009, For 5 days, other, pain for age less than 65 years, IF celecoxib was given pre-operatively, start ketorolac 12 hours after celecoxib given No ketorolac if patient is greater than 65 years old. May give only if patient did not receive a dose intraoperatively., PACU/Phase II lidocaine 1 % 1 mL (CANCELED) 07 56 (Given - Provider: Freedom Us MD) 1 mL, Other, EVERY 1 HOUR PRN, mild pain with VAD insertion or accessing implanted port, Starting Fri02/05/17 at 0633, Do NOT give if patient has a history of allergy to any local anesthetic or any joanne ne product. MAX dose 1 mL subcutaneous OR intradermal in divided doses., Pre-procedure meperidine (DEMEROL) injection 12.5 mg 12.5 mg, Intravenous, EVERY 15 MIN PRN, 2 doses, Starting Fri02/05/17 at 1009, Until Fri02/05/17 at 1639, post anesthesia shivering, PACU/Phase II naloxone (NARCAN) injection 0.1-0.4 mg 0.1-0.4 mg, Intravenous, EVERY 2 MIN PRN , opioid reversal, Starting Fri02/05/17 at 1009, For 24 hours, For apnea or imminent respiratory arrest: give 0.4 mg IV undiluted Q 2 minutes PRN until desired de gree of reversal is obtained, stop opioi d and notify provider. Continue monitoring until discharge are criteria met for a minimum of 2 hours. For severe sedation, decrease in respiratory depth, quality or Respiratory Rate greater than 8: give 0.1 mg IV Q 2 minutes x 3 doses, stop opioid and notify provider. Try to minimize reversal of analgesia especially in end-of-life patients. Continue monitoring u ntil discharge criteria are met for a minimum of 2 hours., PACU/ Phase II ondansetron (ZOFRAN) injection 4 mg(Linked Group 1) 1310 (Given - Provider: Cecilia Arrington RN) 4 mg, Intravenous, EVERY 30 MIN PRN, chantelle sea, vomiting, Administer over 2-5 Minutes, Starting Fri02/05/17 at 1009, For 2 doses, MAX total dose = 8 mg, including OR dosing. This is step 1 of the nausea an d vomiting protocol. If not resolved in 15 minutes, then go to step 2 (Prochlorperazine if ordered). Irritant., PACU/Phase II ondansetron (ZOFRAN-ODT) ODT tab 4 mg(Linked Group 1) 1310 (See Alternative - Provider: Cecilia Arrington RN) 4 mg, Oral, EVERY 30 MIN PRN, nausea, vo miting, Starting Fri02/05/17 at 1009, For 2 doses, MAX total dose = 8 mg, including OR dosing. This is step 1 of the nausea and vomiting protocol. If not resolved in 15 minutes, then go to step 2 (Prochlorperazine if ordered)., PACU/Phase II ORAL Pain Medications - may administer as ordered by surgeon for take home use CONTINUOUS PRN, Starting Fri02/05/17 at 1009, Until Fri02/05/17 at 1639, May administer oral pain medications as ordered by surgeon for take home use. Discontinue IV pain medication prior to administration of oral pain medication., PACU/Phase II oxyCODONE (ROXICODONE) IR tablet 5 mg 1201 (Given - Provider: Agnieszka Pretty RN) 5 mg, Oral, EVERY 4 HOURS PRN, moderate to severe pain, Starting Fri02/05/17 at 1201, Post-procedure prochlorperazine (COMPAZINE) injection 5-10 mg 5-10 mg, Intravenous, EVERY 6 HOURS PRN, nausea, vomiting, Starting Fri02/05/17 at 1009, This is Step 2 of the nausea and vomiting protocol. If nausea not resolved in 15 minutes, give Metoclopramide if ordered (step 3 of nausea and vomiting protocol) , PACU/Phase II Linked Groups Order Group 1: ondansetron (ZOFRAN-ODT) ODT tab 4 mgJump to med 4 mg, Oral, EVERY 30 MIN PRN, nausea, vo miting, Starting Fri02/05/17 at 1009, For 2 doses
MAX total dose = 8 mg, including OR dosing. This is step 1 of the nausea and vomiting protocol.&nbs p; If not resolved in 15 minutes, t hen go to step 2 (Prochlorperazine if ordered).
PACU/Phase II Or ondansetron (ZOFRAN) injection 4 mgJump to med 4 mg, Intravenous, EVERY 30 MIN PRN, chantelle sea, vomiting, Administer over 2-5 Minutes, Starting Fri02/05/17 at 1009, For 2 doses
MAX total dose = 8 mg, including OR dosing. This is step 1 of the n ausea and vomiting protocol. If not resolved in 15 minutes, then go to step 2 (Prochlorperazine if ordered). Irritant.
PACU/Phase II documented in this encounter Additional Health Concerns Assessment Noted Time PHQ-9 Depression Total Score: 2 11/02/2016 7:17 AM CDT documented as of this encounter Care Teams Flight Mechanic Relationship Specialty Start Date End Date Yony Garcia, PCP - General Physician Radiological Metallurgist - 01/30/17 07/23/18 PA-C Medical Yony Garcia, PCP - Assigned PCP 09/01/16 08/11/18 PA-C [id number] [place] [place] [id number] Yony Garcia, Assigned PCP 09/01/16 PA-C [id number] [place] [id number] documented as of this encounter
--- OUTSIDE RECORDS SUMMARY | 2022-04-11 21:43 | XMS_ITS | Encounter Summary ---
:1975 Author Organization [place] Address [address] [facility] [place] [address] Care Team Providers Name Role Phone Esmer Roland MD Primary Care Provider [phone] Reason for Visit Reason Comments Cystoscopy Stent Removal Encounter Details Date Type Department Care Team Description 02/02/2016 Office Visit [facility] Otoniel Hernadez, Calc ium urolithiasis (Primary Dx); [facility] Kidney stone [address] [place] [address] [place] [phone] [address] Social History Tobacco Use Types Packs/Day Years [...] Sign Reading Time Taken Comments Blood Pressure 132/80 02/02/2016 1:37 PM CDT Pulse 64 02/02/2016 1:37 PM CDT Temperature - - Respiratory Rate - - Oxygen Saturation - - Inhaled Oxygen Concentration - - Weight 102.1 kg (225 lb) 02/02/2016 1:37 PM CDT Height 167.6 cm (5' 6) 02/02/2016 1:37 PM CDT Body Mass Index 36.32 02/02/2016 1:37 PM CDT documented in this encounter Progress Notes Otoniel Hernadez MD - 02/02/2016 1:47 PM CDT Jannette is a 40-year-old female with a history of a stone 8 years ago. She recently underwent left ureteroscopy with extraction of 2 left ureteral stones and renoscopy with extraction of one of 2 renal stones.she has normal serum calcium and creatinine. Past medical history: depression, anxiety, history of abnormal Pap smear Medications reviewed Allergies none Exam: Alert and oriented, normal appearance, vital signs normal. Normal respirations, normal external genitalia Flexible cystoscopy and stent removal easily accomplished Assessment: Calcium oxalate urolithiasis, recurrent Plan: Cipro 250 mg ??1 today 24-hour urine collection KUB in 6 months documented in this encounter Nursing Notes Luda Yan CMA - 02/02/2016 2:47 PM CDT Prior to the start of the procedure and with procedural staff participation, I verbally confirmed the patient???s identity using two indicators, relevant allergies, that the procedure was appropriate and matched the consent or emergent situation, and that the correct equipment/implants were available. Immediately prior to starting the procedure I conducted the Time Out with the procedural staff and re-confirmed the patient???s name, procedure, and site/side. (The Joint Commission universal protocol was followed.) Yes Sedation (Moderate or Deep): None Luda Yan MA documented in this encounter Plan of Treatment Not on filedocumented as of this encounter Procedures Procedure Name Priority Date/Time Associated Comments Diagnosis URINE MACROSCOPIC Routine 02/02/2016 1:32 PM Calcium Resu lts for this ONLY CDT urolithiasis procedure are in Kidney stone the results section. documented in this encounter Results (ABNORMAL) UA without Microscopic [[id number]] (02/02/2016 1:32 PM CDT) Component Value Ref Test Analysis Performed At [facility] Range Method Time Signature Color Urine Red [facility] Appearance Urine Turbid [facility] Glucose Urine Negative NEG [facility] mg/dL [facility] Bilirubin Urine Large NEG [facility] This is an unconfirmed screening test result. A positive result may be false. [facility] Ketones Urine 15 (A) NEG [facility] mg/dL [facility] Specific Freer 1.025 1.003 - [facility] Urine 1.035 [facility] Blood Urine Large (A) NEG [facility] pH Urine 5.5 5.0 - [facility] 7.0 pH [facility] Protein Albumin >=300 (A) NEG [facility] Urine mg/dL [facility] Urobilinogen 1.0 0.2 - [facility] Urine 1.0 [facility] Nitrite Urine Negative NEG [facility] Leukocyte Large (A) NEG [facility] Esterase Urine [facility] Source Midstream [facility] Urine [facility] Specimen Anatomical Collection Method Collection Time Receive d Time (Source) Location / / Volume Laterality Urine specimen 02/02/2016 1:32 PM 016 1:40 (specimen) CDT PM CDT Otoniel Hernadez MD LAB - URINE ORDERABLES Performing Organization Address City/State/ZIP Code Phon e Number [facility] [address] [place] [address] [address] documented in this encounter Visit Diagnoses Diagnosis Calcium urolithiasis - Primary Urinary calculus, unspecified Kidney stone Calculus of kidney documented in this encounter Additional Health Concerns Assessment Noted Time PHQ-9 Depression Total Score: 3 04/11/2022 7:03 AM CDT documented as of this encounter Care Teams Flame Cutter Relationship Specialty Start Date End Date Esmer Roland MD PCP - General Family Practice 09/21/10 01/29/17 documented as of this encounter
--- OUTSIDE RECORDS SUMMARY | 2022-04-11 21:43 | XMS_ITS | Encounter Summary ---
:1975 Author Organization [place] Address [address] [facility] [place] [address] Care Team Providers Name Role Phone Esmer Roland MD Primary Care Provider [phone] Reason for Visit Reason Onset Date Comments Results 02/27/2016 US results Encounter Details Date Type Department Care Team Description 02/27/[address] [facility] Yony Garcia Result s (US results) Clinic Sara Hoyos PA-C [address] [place] [address], [address] [place] [address] [address] [place] [address] [place], [place] [phone] (Wo rk) [id number] [phone] Social History Tobacco Use Types Packs/Day Years [...] Telephone Encounter - Mayela Reese RN - 02/27/2016 5:37 PM CDT Spoke with patient and results given. Information also given. She will follow up by the end of the week. Mayela Reese RN Telephone Encounter - Yony Garcia PA-C - 02/27/2016 3:12 PM CDT Left msg re: normal US results. Would like her to call back to discuss plan. Compression stockings, low salt diet and elevation of leg. Can add diuretic as well. I will pend order for RN to sign if possible. Follow up end of week or sooner if not improving. Thanks, ajp documented in this encounter Plan of Treatment Not on filedocumented as of this encounter Visit Diagnoses Diagnosis Ankle edema - Primary Edema documented in this encounter Additional Health Concerns Assessment Noted Time PHQ-9 Depression Total Score: 3 04/11/2022 7:03 AM CDT documented as of this encounter Care Teams Gas And Oil Servicer Relationship Specialty Start Date End Date Esmer Roland MD PCP - General Family Practice 09/21/10 01/29/17 documented as of this encounter
--- OUTSIDE RECORDS SUMMARY | 2022-04-11 21:43 | XMS_ITS | Encounter Summary ---
:1975 Author Organization [place] Address [facility] [place] [address] Care Team Providers Name Role Phone Esmer Roland MD Primary Care Provider Encounter Details Date Type Department Care Team Description 01/18/2016 Anesthesia Event [facility] Patricio Mccauley MD [facility] [address] [place], [place] [id number] [facility] Delmer Berrios, DO [facility] [address] [place], [place] [address] [address] [place] [address] Anesthesia Record Procedure Summary Procedure Name Responsible Anesthesia Start Anesthesia Stop Anesthesiologist Time Time COMBINED CYSTOSCOPY, Patricio Davis, 01/18/16 1458 0 01/18/16 1552 LEFT URETEROSCOPY, LASER HOLMIUM LITHOTRIPSY ON STAND BY LEFT URETER(S), INSERT STENT, balloon dilation (Left: Flank) Events Date Time Event Comment 01/18/2016 1352 1458 An Start 1458 An Start Data 1501 An Induction 1501 MD Present 1502 AN START SEVO 1502 An LMA 1503 MD Present 1538 AN END SEVO 1544 an stop data 1552 An Stop Electronically s igned by Jose Walters on January 18, 2016 3:52 PM 1552 MD Present Name Total midazolam 1mg/mL 2 mg fentaNYL (SUBLIMAZE) injection 150 mcg lidocaine 1% 50 mg propofol (DIPRIVAN) injection 10 mg/mL vial 250 mg glycopyrrolate 0.2mg/mL 0.2 mg dexamethasone 4mg/mL 4 mg ondansetron 2mg/mL 4 mg ciprofloxacin (CIPRO) intermittent infusion 400 mg 400 mg LR 300 mL Agents Name O2 Air Exp Sevoflurane Blood No blood administrations on file. Lines, Drains, and Airways Type Details Placement Removal Peripheral IV 01/18/16; 0657; 20 G; 01/18/16 0657 by 01/18/16 1737 by Right; Median cubital Josee Ricardo, SHAREE Petit, S meño Rodgers RN vein (antecubital fossa); Chlorhexidine Retired Non-Surgical 01/18/16; 1502; 01/18/16 1502 by 01/18/16 1 547 by Airway Intravenous; 4; mm; Pauline Leahy, OWEN ferrer, laryngeal mask airway; PASTORAL COUNSELOR Jose negron APRN Spontaneous ventilation, PASTORAL COUNSELOR Follows commands, Transported with oxygen, Purposeful movement documented in this encounter Social History Tobacco [...] Postprocedure Evaluation - Patricio Davis MD - 01/18/2016 5:16 PM CDT Patient: Dariana Osman COMBINED CYSTOSCOPY, RETROGRADES, URETEROSCOPY, LASER HOLMIUM LITHOTRIPSY URETER(S), INSERT STENT (Left Flank) Additional InformationProcedure(s): COMBINED CYSTOSCOPY, LEFT URETEROSCOPY, LASER HOLMIUM LITHOTRIPSY ON STAND BY LEFT URETER(S), INSERTSTENT, balloon dilation - Wound Class: II-Clean Contaminated Diagnosis:unknown Diagnosis Additional Information: left ureteral calculi, left renal calculi Anesthesia Type: General Note: Anesthesia Post Evaluation Patient location during evaluation: PACU Patient participation: Able to fully participate in evaluation Level of consciousness: awake and alert Pain management: adequate Airway patency: patent Cardiovascular status: acceptable Respiratory status: acceptable Hydration status: acceptable PONV: none Anesthetic complications: None Last vitals: Filed Vitals: 01/18/16 1630 01/18/16 1645 01/18/16 1707 BP: 133/83 128/78 127/93 Pulse: Temp: 97.4 ??F (36.3 ??C) 98.4 ??F (36.9 ??C) Resp: SpO2: 100% 96% 96% Electronically Signed By: Patricio Davis MD January 18, 2016 5:16 PM Anesthesia Preprocedure Evaluation - Delmer Berrios, DO - 01/18/2016 1:50 PM CDT Anesthesia Evaluation . ROS/MED HX ENT/Pulmonary: - neg pulmonary ROS Neurologic: - neg neurologic ROS Cardiovascular: - neg cardiovascular ROS METS/Exercise Tolerance: Hematologic: - neg hematologic ROS Musculoskeletal: - neg musculoskeletal ROS GI/Hepatic: - neg GI/hepatic ROS Renal/Genitourinary: - ROS Renal section negative Endo: Comment: BMI-35 (+) Obesity, . Psychiatric: (+) psychiatric history anxiety and depression Infectious Disease: Malignancy: Other: Comment: .Lab Test 01/18/16 12/16/15 09/01/15 -- 12/30/10 0700 1427 1028 -- 1325 WBC 6.5 10.2 9.0 < > 5.1 HGB 13.9 14.4 15.1 < > 12.9 MCV 90 91 89 < > 89 PLT 271 305 367 < > 230 INR -- -- -- -- 0.91 < > = values in this interval not displayed. Lab Test 01/18/16 12/16/15 06/16/15 0700 1427 0831 NA 137 140 140 POTASSIUM 3.8 4.6 4.4 CHLORIDE 104 100 107 CO2 25 25 24 BUN 10 12 13 CR 0.83 1.00 0.94 ANIONGAP 8 15* 9 MICHELE 8.5 9.2 8.4* GLC 103* 82 87 - neg other ROS Physical Exam Normal systems: cardiovascular and pulmonary Airway Mallampati: II Dental Cardiovascular Rhythm and rate: regular and normal Pulmonary breath sounds clear to auscultation Anesthesia Plan History & Physical Review History and physical reviewed and following examination; no interval change. ASA Status: 2 . Plan for General with Intravenous induction. Maintenance will be Inhalation and Balanced. PONV prophylaxis: Ondansetron and Dexamethasone Postoperative Care Consents Anesthetic plan, risks, benefits and alternatives discussed with: Patient or jewelry sales representative.. . documented in this encounter Miscellaneous Notes Anesthesia Care Transfer Note - Jose Walters APRN CRNA - 01/18/2016 3:52 PM CDT Patient: Dariana Osman COMBINED CYSTOSCOPY, RETROGRADES, URETEROSCOPY, LASER HOLMIUM LITHOTRIPSY URETER(S), INSERT STENT (Left Flank) Additional InformationProcedure(s): COMBINED CYSTOSCOPY, LEFT URETEROSCOPY, LASER HOLMIUM LITHOTRIPSY ON STAND BY LEFT URETER(S), INSERTSTENT, balloon dilation - Wound Class: II-Clean Contaminated Diagnosis: unknown Diagnosis Additional Information: No value filed. Anesthesia Type: General Note: Airway :Face Mask Patient transferred to:PACU Comments: vss Electronically Signed By: Jose Walters APRN CRNA January 18, 2016 3:52 PM documented in this encounter Plan of Treatment Not on filedocumented as of this encounter Visit Diagnoses Not on filedocumented in this encounter Administered Medications Inactive Administered Medications - up to 3 most recent administrations Medication Order MAR Action Action Date Dose Rate Site ciprofloxacin (CIPRO) intermittent Given 01/18/2016 2:58 PM CDT 400 mg infusion 400 mg STAT, 400 mg, Intravenous, SCREEN ROOM OPERATOR TO O.R., Starting on Halley 01/18/16 at 0859, For 1 dose, Indications: Perioperative Pharmacoprophylaxis dexamethasone (DECADRON) injection Given 01/18/2016 3:01 PM CDT 4 mg PRN, Administer over 1-4 Minutes, Starting on Halley 01/18/16 at 1501, Anesthesia Intra-op fentaNYL Citrate (PF) (SUBLIMAZE) inject ion Given 01/18/2016 3:06 PM CDT 50 mcg PRN, moderate to severe pain, Starting on Halley 01/18/16 at 1501, Anesthesia Intra-op Given 01/18/2016 3:01 PM CDT 100 mcg glycopyrrolate (ROBINUL) injection Given 01/18/2016 3:15 PM CDT 0.2 mg PRN, Starting on Halley 16 at 1515, Anesthesia Intra-op lactated ringers infusion New Bag 01/18/2016 1:50 PM CDT Intravenous, CONTINUOUS PRN, Anesthesia Intra-op, Starting on Halley 01/18/16 at 1350, Until Halley 01/18/16 at 1552 lidocaine 1 % injection Given 01/18/2016 3:01 PM CDT 50 mg PRN, Starting on Halley 01/18/16 at 1501, Anesthesia Intra-op midazolam (VERSED) injection Given 01/18/2016 2:58 PM CDT 2 mg PRN, anxiety, Starting on Halley 01/18/16 at 1458, Anesthesia Intra-op ondansetron (ZOFRAN) injection Given 01/18/2016 3:41 PM CDT 4 mg PRN, nausea, vomiting, Administer over 2-5 Minutes, Starting on Halley 16 at 1541, Anesthesia Intra-op propofol (DIPRIVAN) injection 10 mg/mL v ial Given 01/18/2016 3:19 PM CDT 50 mg PRN, Starting on Halley 01/18/16 at 1501, Anesthesia Intra-op Given 01/18/2016 3:01 PM CDT 200 mg documented in this encounter Additional Health Concerns Assessment Noted Time PHQ-9 Depression Total Score: 4 09/02/2015 7:59 AM CDT documented as of this encounter Care Teams Vacuum Closing Machine Operator Relationship Specialty Start Date End Date Esmer Roland MD PCP - General Family Practice 09/21/10 01/29/17 documented as of this encounter
--- OUTSIDE RECORDS SUMMARY | 2022-04-11 21:43 | XMS_ITS | Encounter Summary ---
:1975 Author Organization [place] Address [address] [facility] [place] [address] Care Team Providers Name Role Phone Esmer Roland MD Primary Care Provider [phone] Reason for Visit Reason Onset Date Comments Patient Reminder 08/08/2016 Past due for pap sme ar Encounter Details Date Type Department Care Team Description 08/08/2016 Telephone [facility] Esmer Roland Patient Reminder (Past Clinic Sara Byrd MD due for pap smear) [address] [place] [address], [address] [place] [address] [address] [place] [address] [place], [place] [phone] (Wo rk) [address] [phone] Social History Tobacco Use Types Packs/Day Years Used Date Smoking Tobacco: Former Smokeless Tobacco: Never Comments: Very Occasional Alcohol Use Standard Drinks/Week Comments Yes 0 (1 standard drink = 0.6 oz pure 1 TIME A a week(1 glass of wine) 1 alcohol) qo weekend Sex Assigned at Date Recorded Not on file documented as of this encounter Miscellaneous Notes Telephone Encounter - Yolis Betancourt - 08/08/2016 10:58 AM CST Pt is past due for f/u pap smear. Reminder MyChart was sent 01/25/16. Spoke with pt, reminded her of need for pap and offered [facility] phone number for scheduling. Pt declined phone number and thanked for the call. If no appt within 2 weeks (08/22)17 pt will be considered lost to pap tracking f/u. Yolis Betancourt, Mechanic Welder Truck Driver Pap Tracking RESSIONAL ASSISTANT documented in this encounter Plan of Treatment Not on filedocumented as of this encounter Visit Diagnoses Not on filedocumented in this encounter Additional Health Concerns Assessment Noted Time PHQ-9 Depression Total Score: 3 04/11/2022 7:03 AM CDT documented as of this encounter Care Teams Healthcare Facility Administrator Relationship Specialty Start Date End Date Esmer Roland MD PCP - General Family Practice 09/21/10 01/29/17 documented as of this encounter
--- OUTSIDE RECORDS SUMMARY | 2022-04-11 21:43 | XMS_ITS | Encounter Summary ---
:1975 Author Organization [place] Address [address] [place] [address] Care Team Providers Name Role Phone Esmer Roland MD Primary Care Provider [phone] Reason for Visit Reason Comments Musculoskeletal Problem knee and foot pain Encounter Details Date Type Department Care Team Description 02/27/2016 Office Visit [facility] Yony Garcia eg swelling [facility] [place] ZENON [place]oyos (Primary Dx) [address] [address] [facility], [address] [place] [address] [place], [place] [phone] (Wo rk) [address] [phone] Social History Tobacco Use Types Packs/Day Years [...] Sign Reading Time Taken Comments Blood Pressure 130/80 02/27/2016 11:39 AM CDT Pulse 77 02/27/2016 11:39 AM CDT Temperature 37 ??C (98.6 ??F) 02/27/2016 11:39 AM CDT Respiratory Rate - - Oxygen Saturation 97% 02/27/2016 11:39 AM CDT Inhaled Oxygen Concentration - - Weight 104.6 kg (230 lb 11.2 oz) 02/27/2016 11:39 AM CDT Height 167.6 cm (5' 6) 02/27/2016 11:39 AM CDT Body Mass Index 37.24 02/27/2016 11:39 AM CDT documented in this encounter Progress Notes Yony Garcia PA-C - 02/27/2016 11:42 AM CDT SUBJECTIVE: Dariana Osman is a 40 year old female who presents to clinic today for the following health issues: Musculoskeletal problem/pain ?? Duration: since Friday ?? Description Location: left lower leg and foot ?? Intensity: mild ?? Accompanying signs and symptoms: swelling ?? History Previous similar problem: YES- prior and it went away a lot faster and traveled at that time as well Previous evaluation: none ?? Precipitating or alleviating factors: Trauma or overuse: YES- walked for 5 days in [facility] Aggravating factors include: walking, overuse and possible high sodium intake ?? Therapies tried and outcome: ice and elevating Dariana is here to discuss swelling in her left leg and foot. This started over the weekend and has not gotten any better so she is here for eval. She had just returned from a work trip in [place] where she was walking a lot, also notes maybe not eating very well. This swelling is more pronounced onthe left than the right. It is not painful but feels tight. No warmth, bruising or erythema noted. There is a little area of swelling and tenderness medial and just below the knee that is concerning her and making her wonder about a DVT. The swelling does not respond a whole lot to elevation or ice. She denies CP or SOB. Problem list and histories reviewed & adjusted, as indicated. Additional history: as documented BP Readings from Last 3 Encounters: 02/27/16 130/80 02/02/16 132/80 01/18/16 131/90 Wt Readings from Last 3 Encounters: 02/27/16 230 lb 11.2 oz (104.645 kg) 02/02/16 225 lb (102.059 kg) 01/18/16 225 lb (102.059 kg) Labs reviewed in [facility] Problem list, Medication list, Allergies, and Medical/Social/Surgical histories reviewed in [facility] andupdated as appropriate. ROS: C: NEGATIVE for fever, chills, change in weight E/M: NEGATIVE for ear, mouth and throat problems R: NEGATIVE for significant cough or SOB CV: NEGATIVE for chest pain, palpitations or peripheral edema OBJECTIVE: BP 130/80 mmHg Pulse 77 Temp(Src) 98.6 ??F (37 ??C) (Oral) Ht 5' 6 (1.676 m) Wt 230 lb 11.2oz (104.645 kg) BMI 37.25 kg/m2 SpO2 97% LMP 02/21/2016 ? No Body mass index is 37.25 kg/(m^2). GENERAL: healthy, alert and no distress MS: lower extremities with both calves measuring essentially the same 43 cm on right 43.5 on left- left left with edema at ankle and foot, cannot appreciate DP pulse, no erythema or skin change, edema is not pitting. ROM of ankle is normal. Calf is non tender. SKIN: no suspicious lesions or rashes NEURO: Normal strength and tone, mentation intact and speech normal PSYCH: mentation appears normal, affect normal/bright Diagnostic Test Results: US pending ASSESSMENT/PLAN: 1. Left leg swelling LE US was negative for DVT. Recommend low salt diet, elevation of legs above heart 30 minutes daily at night. Compression stockings to be purchased. HCTZ- Rx through phone note. Follow up one week. - US Lower Extremity Venous Duplex Left; Future Yony Garcia PA-C [facility] documented in this encounter Nursing Notes Kalee Trejo - 02/27/2016 11:42 AM CDT Chief Complaint Patient presents with ??? Musculoskeletal Problem knee and foot pain Initial BP 130/80 mmHg Pulse 77 Temp(Src) 98.6 ??F (37 ??C) (Oral) Ht 5' 6 (1.676 m) Wt 230lb 11.2 oz (104.645 kg) BMI 37.25 kg/m2 SpO2 97% LMP 02/21/2016 ? No Estimated body mass index is 37.25 kg/(m^2) as calculated from the following: Height as of this encounter: 5' 6 (1.676 m). Weight as of this encounter: 230 lb 11.2 oz (104.645 kg). BP completed using cuff size: large right arm ALEXI Turk documented in this encounter Plan of Treatment Not on filedocumented as of this encounter Results US Lower Extremity Venous Duplex Left (02/27/2016 2:16 PM CDT) Anatomical Region Laterality Modality Vascular, Thigh, Leg Ultrasound Specimen (Source) Anatomical Location Collection Method / Collectio n Time Received Time / Laterality Volume Impressions 02/27/2016 4:24 PM CDT IMPRESSION: No evidence for DVT within the left leg. MICHELLE EVANS MD Narrative 02/27/2016 4:24 PM CDT ULTRASOUND LEFT LOWER EXTREMITY VENOUS DUPLEX ??02/27/2016 2:16 PM HISTORY: Other specified soft tissue dis orders. COMPARISON: None. FINDINGS: Mathew-scale, color and Doppler spectral analysis ultrasound was performed of the left leg. Compressi on and augmentation imaging was performed. There is no evidence for deep venous thr ombosis. Procedure Note Michelle Evans MD - 02/27/2016Forma tting of this note might be different from the original. ULTRASOUND LEFT LOWER EXTREMITY VENOUS D UPLEX 02/27/2016 2:16 PM HISTORY: Other specified soft tissue dis orders. COMPARISON: None. FINDINGS: Mathew-scale, color and Doppler spectral analysis ultrasound was performed of the left leg. Compressi on and augmentation imaging was performed. There is no evidence for deep venous thr ombosis. IMPRESSION: No evidence for DVT within t he left leg. MICHELLE EVANS MD Yony VAN US ORDERABLES documented in this encounter Visit Diagnoses Diagnosis Left leg swelling - Primary Left leg swelling documented in this encounter Additional Health Concerns Assessment Noted Time PHQ-9 Depression Total Score: 3 04/11/2022 7:03 AM CDT documented as of this encounter Care Teams Civil Attorney Relationship Specialty Start Date End Date Esmer Roland MD PCP - General Family Practice 09/21/10 01/29/17 documented as of this encounter
--- OUTSIDE RECORDS SUMMARY | 2022-04-11 21:43 | XMS_ITS | Encounter Summary ---
:1975 Author Organization [place] Address [address] [facility] [place] [address] Care Team Providers Name Role Phone Esmer Roland MD Primary Care Provider [phone] Yony Garcia PA-C Unavailable [phone] Yony Garcia PA-C Unavailable [phone] Encounter Details Date Type Department Care Team Description 01/17/2017 Radiant Appointment [facility] Jeimy Christensen pain in Clinic [place] DO [place] female [address] [facility] [phone] Social History Tobacco Use Types Packs/Day Years [...] Procedure Name Priority Date/Time Associated Comments Diagnosis US PELVIC Routine 01/17/2017 11:00 Pelvic pain in Results f or this TRANSABDOMINAL AND AM CDT female procedure are in TRANSVAGINAL the results section. documented in this encounter Results (ABNORMAL) US Pelvic Complete with Transvaginal (01/17/2017 11:00 AM CDT) Anatomical Region Laterality Modality Abdomen/Pelvis Ultrasound Specimen (Source) Anatomical Location Collection Method / Collectio n Time Received Time / Laterality Volume Narrative 01/18/2017 12:[address] [facility] [address] Seamus Garcia [facility]. [address] [place] [address] ?? ULTRASOUND - PELVIC SQUARE CUTTER ?? Referring MD: Jeimy Christensen Primary Clinic: [facility] ? CLINICAL INFORMATION ?? Indications for ultrasound: Pelvic pain ?? LMP: 14 Jan 2017 ?Hormones: none ?? Measurements: Uterus: 9.7 x 5.3 x 7.1 cm. ?? Position is anteverted. ??Contour is irr eg w myomata: 1) fundal intramural 1.4 x 1.1 cm. ?? Endo cav: 9.1 mm ? Irregular Cervix: Wnl ?? Right ovary: 2.8 x 1.7 x 2.1 cm. ?? Wnl Left ovary: Nv ?? Cul de sac: no free fluid ?? Complete pelvic ultrasound using realtim e transabdominal and transvaginal scanning Bladder appears normal Myomatous uterus: Endometrial cavity not affected Ovarian cysts resolved with normal bilat eral adnexa. Dr. Jeimy Christensen, DO ?? Obstetrics and Gynecology [facility] Jeimy Christensen DO IMG US ORDERABLES documented in this encounter Visit Diagnoses Diagnosis Pelvic pain in female Unspecified symptom associated with fema le genital organs documented in this encounter Additional Health Concerns Assessment Noted Time PHQ-9 Depression Total Score: 2 11/02/2016 7:17 AM CDT documented as of this encounter Care Teams Big Data Engineer Relationship Specialty Start Date End Date Esmer Roland MD PCP - General Family Practice 09/21/10 01/29/17 Yony Garcia PA-C PCP - Assigned PCP 09/01/16 08/11/18 [id number] SONJA KRAUSE [id number] Yony Garcia PA-C Assigned PCP 09/01/16 02/05/20 [id number] SONJA KRAUSE [id number] documented as of this encounter
--- OUTSIDE RECORDS SUMMARY | 2022-04-11 21:43 | XMS_ITS | Encounter Summary ---
:1975 Author Organization [place] Address [address] [place] [address]. [place] [address] Care Team Providers Name Role Phone Esmer Roland MD Primary Care Provider [phone] Reason for Visit Reason Onset Date Comments Refill Request 04/09/2016 duloxetine 30 and 60 Encounter Details Date Type Department Care Team Description 04/09/[address] [facility] Esmer Roland Refill Request Clinic Sara Byrd MD (duloxetine 30 and 60) [address] [address], [address] [place] [address] [address] [place] [address] [place], [place] [phone] (Wo rk) [address] [phone] Social History Tobacco Use Types Packs/Day Years [...] Telephone Encounter - Esmer Roland MD - 04/09/2016 10:30 AM CDT done Telephone Encounter - Kavita Marcus - 04/09/2016 9:14 AM CDT Patient is on a total of 90 mg of duloxetine. Duloxetine 30 Last Written Prescription Date: 09/01/15 Last Fill Quantity: 30, # refills: 5 Last [place] [facility] [place] or Health prescribing provider: 09/01/15 Duloxetine 60 Last Written Prescription Date: 09/01/15 Last Fill Quantity: 30, # refills: 5 Last [place] [facility] [place] [facility] or Health prescribing provider: 09/01/15 Kavita Marcus [facility] [phone] documented in this encounter Plan of Treatment Not on filedocumented as of this encounter Visit Diagnoses Diagnosis Major depressive disorder, recurrent epi sode, mild (H) - Primary Major depressive disorder, recurrent epi sode, mild documented in this encounter Additional Health Concerns Assessment Noted Time PHQ-9 Depression Total Score: 3 04/11/2022 7:03 AM CDT documented as of this encounter Care Teams Parts Analyst Relationship Specialty Start Date End Date Esmer Roland MD PCP - General Family Practice 09/21/10 01/29/17 documented as of this encounter
--- OUTSIDE RECORDS SUMMARY | 2022-04-11 21:43 | XMS_ITS | Encounter Summary ---
:1975 Author Organization [place] Address [address] [place] [address] Care Team Providers Name Role Phone Esmer Roland MD Primary Care Provider [phone] Yony Garcia PA-C Unavailable [phone] Yony Garcia PA-C Unavailable [phone] Reason for Visit Reason Onset Date Comments Schedule Surgery 12/24/2016 Encounter Details Date Type Department Care Team Description 12/24/2016 Telephone [facility] Jeimy Christensen, Schedule Surgery Clinic [place] [address] [place] [address] [facility] [address] [place] [phone] (Wo rk) Social History Tobacco Use [...] Notes Telephone Encounter - Airam Billy - 12/24/2016 3:04 PM CDT Surgery: ROBOTIC ASSISTED TOTAL LAPAROSCOPIC HYSTERECTOMY, CYSTOSCOPY Date: 02/05/17 Time: 10:15 AM Hospital: [facility] Patient advised of the following: The hospital will contact you 24-48 hours prior to surgery to discuss any pre op instructions. Contact your insurance company to see if a prior authorization or second opinion is needed. Please schedule a pre op appointment with your primary physician within 7 days of surgery. No aspirin or Ibuprofen 10 days prior to surgery. Make arrangement to have someone drive you home from the hospital. Follow bowel prep instructions the day before surgery. Surgery specific and hospital information mailed to patient. Information was placed on the surgery calendar in [place]. Telephone Encounter - Airam Billy - 12/24/2016 3:03 PM CDT Patient prefers to schedule on 02/12, 02/05 or 02/19. Telephone Encounter - Airam Billy - 12/24/2016 1:19 PM CDT Left message for patient to return the call to discuss possible dates to schedule surgery. Telephone Encounter - Airam Billy - 12/24/2016 10:50 AM CDT Surgeon:JEIMY CHRISTENSEN Assist: Yes Location: [facility] Date/time preference: January if possible, otherwise february ?? Surgery: Robotic assisted total laparoscopic hysterectomy, cystoscopy. d Length of Surgery: 1.5 hours Diagnosis: Post ablation pain syndrome Anesthesia type: GENERAL ?? Special instructions / equipment: Am admit or same day: SAME DAY Bowel prep: Yes Pre op: PCP Office visit with surgeon prior to surgery: No documented in this encounter Plan of Treatment Not on filedocumented as of this encounter Visit Diagnoses Not on filedocumented in this encounter Additional Health Concerns Assessment Noted Time PHQ-9 Depression Total Score: 2 11/02/2016 7:17 AM CDT documented as of this encounter Care Teams Anthropologist Physical Relationship Specialty Start Date End Date Esmer Roland MD PCP - General Family Practice 09/21/10 01/29/17 Yony Garcia PA-C PCP - Assigned PCP 09/01/16 08/11/18 [id number] SONJA KRAUSE [id number] Yony Garcia PA-C Assigned PCP 09/01/16 02/05/20 58082 SONJA KRAUSE [id number] documented as of this encounter
--- OUTSIDE RECORDS SUMMARY | 2022-04-11 21:43 | XMS_ITS | Encounter Summary ---
:1975 Author Organization [facility] Address [address] [place] [address] Care Team Providers Name Role Phone Esmer Roland MD Primary Care Provider [phone] Reason for Visit Reason Onset Date Comments Pain 01/26/2016 stent discomfort Encounter Details Date Type Department Care Team Description 01/26/2016 Telephone [facility] Otoniel Hernadez, Pain (stent discomfort) [facility] Jessenia BANERJEE [address] [place] [address] [place] [phone] [id number] (Wo rk) Social History Tobacco Use Types [...] this encounter Miscellaneous Notes Telephone Encounter - Sarita Carrizales MA - 01/26/2016 1:41 PM CDT Pt c/o stent discomfort post surgery. Per protocol I am sending in Oxybutynin. 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
--- OUTSIDE RECORDS SUMMARY | 2022-04-11 21:43 | XMS_ITS | Encounter Summary ---
:1975 Author Organization [facility] Address [address] [place] [address] Care Team Providers Name Role Phone Esmer Roland MD Primary Care Provider [phone] Yony Garcia PA-C Primary Care Provider [phone] Yony Garcia PA-C Unavailable [phone] Yony Garcia PA-C Unavailable [phone] Reason for Referral NIRAJ Physical Therapy - Closed Specialty Diagnoses / Procedures Referred By Contact Refer red To Contact Diagnoses Stress incontinence of urine Jeimy Christensen, [facility] DO [facility] [address] [place], [place] [address] [place] [address] Phone: [phone] Referral ID Status Reason Start Date Expiration Date Visits Requ ested Visits Authorized [id number] Closed 12/24/2016 12/24/2017 1 1 Encounter Details Date Type Department Care Team Description 12/24/2016 [facility] Dx[facility] [place] Stress incontinence of urine [place] [address] [place], [place] [address] [address] [place], [place] [phone] (Work) [phone] Social History Tobacco Use Types Packs/Day Years Used Date Smoking Tobacco: Former Smokeless Tobacco: Never Comments: Very Occasional Alcohol Use Standard Drinks/Week Comments Yes 0 (1 standard drink = 0.6 oz pure 1 TIME A a week(1 glass of wine) 1 alcohol) qo weekend Sex Assigned at Date Recorded Not on file documented as of this encounter Patient Instructions Patient InstructionsJeimy Christensen DO - 12/24/2016 10:24 AM CDT Make p.t. Appointment Consider having a urinary study with Dr. Fabiana Christensen DO Obstetrics and Gynecology [facility] documented in this encounter Progress Notes Jeimy Christensen DO - 12/24/2016 10:24 AM CDT Surgeon:JEIMY CHRISTENSEN Assist: Yes Location: [facility] Date/time preference: January if possible, otherwise february Surgery: Robotic assisted total laparoscopic hysterectomy, cystoscopy. 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 documented in this encounter Plan of Treatment Scheduled Referrals Name Type Priority Associated Diagnoses Order S chedule NIRAJ PT, HAND, AND Referral Routine Stress incontinence of Ordered: 12/24/2016 CHIROPRACTIC REFERRAL urine documented as of this encounter Results (ABNORMAL) US Pelvic Complete with Transvaginal (01/17/2017 11:00 AM CDT) Anatomical Region Laterality Modality Abdomen/Pelvis Ultrasound Specimen (Source) Anatomical Location Collection Method / Collectio n Time Received Time / Laterality Volume Narrative 01/18/2017 12:27 PM CDT [facility] Ob[facility]etrics [facility] Gynecology [address] [place] [address] ?? ULTRASOUND - PELVIC SENIOR PRODUCT ANALYST ?? Referring MD: Jeimy Christensen Primary Clinic: [facility] ? CLINICAL INFORMATION ?? Indications for ultrasound: [...] Jeimy Christensen, DO ?? Obstetrics and Gynecology [facility] Jeimy Christensen DO IMG US ORDERABLES documented in this encounter Visit Diagnoses Diagnosis Pelvic pain in female - Primary Unspecified symptom associated with fema le genital organs Stress incontinence of urine Pelvic pain in female Unspecified symptom associated with fema le genital organs documented in this encounter Additional Health Concerns Assessment Noted Time PHQ-9 Depression Total Score: 2 11/02/2016 7:17 AM CDT documented as of this encounter Care Teams Medical [facility] Health [facility] Manager Relationship Specialty Start Date End Date Esmer Roland, PCP - General Family Practice 09/21/10 01/29/17 Yony Garcia, PCP - General Physician [employer] - 01/30/17 07/23/18 [facility] Yony Garcia, PCP - Assigned PCP 09/01/16 08/11/18 [facility] [id number] [address] [id number] Yony Garcia, Assigned PCP 09/01/16 [facility] [id number] [address] [id number] documented as of this encounter
--- OUTSIDE RECORDS SUMMARY | 2022-04-11 21:43 | XMS_ITS | Encounter Summary ---
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 --- Actions taken by pharmacist (provider contacted, etc):None Additional medication history information:None Medication reconciliation/reorder completed by provider prior to medication history? Yes, sticky note left for md Prior to Admission medications Medication Sig Last Dose Taking? Auth Provider DULoxetine HCl (CYMBALTA PO) Take 90 mg by mouth every evening 01/17/2016 at 2200 Yes Unknown, Entered By History documented in this encounter Plan of Treatment Not on filedocumented as of this encounter Procedures Procedure Name Priority Date/Time Associated Comments Diagnosis XR SURGERY TAMMY Routine 01/18/2016 3:42 PM Result s for this FLUORO LESS THAN 5 CDT procedure are in MIN W STILLS the results section. SURGICAL PATHOLOGY Routine 01/18/2016 3:28 PM Res ults for this EXAM CDT procedure are i n the results section. STONE ANALYSIS Routine 01/18/2016 3:28 PM Calculus of kidney R esults for this CDT and ureter procedure are i n the results section. CYSTOURETEROSCOPY, 01/18/2016 2:48 PM left ureteral WITH RETROGRADE CDT calculi, left renal PYELOGRAM AND STENT calculi INSERTION CT ABDOMEN PELVIS W/O STAT 01/18/2016 7:25 AM Results for this CONTRAST CDT procedure are i n the results section. CBC WITH PLATELETS & STAT 01/18/2016 7:00 AM R esults for this DIFFERENTIAL CDT procedure are i n the results section. BASIC METABOLIC PANEL STAT 01/18/2016 7:00 AM Results for this CDT procedure are i n the results section. HCG QUALITATIVE URINE STAT 01/18/2016 6:34 AM Results for this CDT procedure are i n the results section. ROUTINE UA WITH STAT 01/18/2016 6:34 AM Result s for this MICROSCOPIC CDT procedure are i n the results section. URINE CULTURE Routine 01/18/2016 6:34 AM Calculus of kidney Re sults for this CDT and ureter procedure are i n the results section. documented in this encounter Results XR Surgery TAMMY L/T 5 Min Fluoro w Stills (01/18/2016 3:42 PM CDT) Anatomical Region Laterality Modality Abdomen/Pelvis Computed Radiography Specimen (Source) Anatomical Location Collection Method / Collectio n Time Received Time / Laterality Volume Impressions 01/19/2016 9:01 AM CDT IMPRESSION: Fluoroscopy for stent placement. ALYSSA KHAN MD Narrative 01/19/2016 9:01 AM CDT XR SURGERY TAMMY FLUORO LESS THAN 5 MIN W STILLS 01/18/2016 3:42 PM HISTORY: Cysto Procedure Note Alyssa Khan MD - 01/19/2016Formatt ing of this note might be different from the original. XR SURGERY TAMMY FLUORO LESS THAN 5 MIN W STILLS 01/18/2016 3:42 PM HISTORY: Cysto IMPRESSION: Fluoroscopy for stent placem ent. ALYSSA KHAN MD Tito Marr MD IMG DIAGNOSTIC IMAGING ORDER VERONICA Surgical pathology exam (01/18/2016 3:28 PM CDT) Component Value Ref Test Analysis Performed At [facility] Method Time Signature Copath Report Patient Name: DARIANA OSMAN MR#: [id number] Specimen #: [id number] Collected: 01/18/2016 Received: 01/18/2016 Reported: 01/18/2016 16:34 Ordering Phy(s): TITO MARR Additional Phy(s): AMADEO MILLER SPECIMEN(S): Stones, left ureter and left kidney FINAL DIAGNOSIS: Left ureter and kidney stones: -Calculi, gross examination and description only. -Chemical analysis ordered. ??See separate report. Electronically signed out by: Jame Jolly M.D. CLINICAL HISTORY: Left ureter and left kidney stones. GROSS: The specimen, labeled left ureter and left kidney stones, co nsists of four concretions made of sanchez to dark brown firm material rose suring between 0.3 cm and 0.5 cm in diameter each. ??The specimen i s sent for chemical analysis. ??No microscopic sections were made. CPT Codes: A: 14280-TD TESTING LAB LOCATION: [address] ??[address] COLLECTION SITE: Client: [facility] Location: [facility]OR (R) Specimen Anatomical Collection Method Collection Time Receive d Time (Source) Location / / Volume Laterality 01/18/2016 3:28 PM 6 3:53 CDT PM CDT Tito Marr MD LAB - [facility] Performing Organization Address City/State/ZIP Code Phon e Number [place] Stone analysis (01/18/2016 3:28 PM CDT) Component Value Ref Test Analysis Performed At [facility] Method Time Signature Stone SEE NOTE [place] Composition (Note) [facility] Light brown calculus composed primarily of: HOSPITAL 80% calcium oxalate monohydrate, and 20% calcium oxalate dihydrate. Dark brown calculi composed primarily of calcium oxalate monohydrate. INTERPRETIVE INFORMATION: Calculi (Stone) analysis Calculi are the products of physiological processes that yield crystalline compounds in a matrix of biological compounds and blood. ??Matrix components are not reported. The clinically significant crystalline components identified in calculi specimens are reported. ??Gross description may not be consistent with composition determined by FTIR analysis. Performed by [facility], [address] [place] [id number] [email or web address], Eduard Rivas MD, Lab. Director Calculi Number 3 [facility] Calculi Size 5 to 9 [place] Unit: [facility] Calculi SEE NOTE [place] Description (Note) [facility] Specimen consists of three, medium, HOSPITAL light brown/dark brown, irregular calculi. Stone Mass 123 mg [facility] Specimen (Source) Anatomical Collection Method Collection Time Re ceived Time Location / / Volume Laterality Calculus specimen LEFT KIDNEY 01/18/2016 3:28 PM (specimen) STRUCTURE / CDT Unknown Tito Marr MD LAB - BODY FLUIDS ORDERABLES Performing Organization Address City/State/ZIP Code Phon e Number M [facility] [address] [address] [facility] [address] [place], [place] [address] [place] [address] Abd/pelvis CT no contrast - Stone Protocol (01/18/2016 7:25 AM CDT) Anatomical Region Laterality Modality Abdomen/Pelvis, SUBRAD CT BODY, UMP CT ABDOMEN PELVIS Computed Tomography Specimen (Source) Anatomical Location Collection Method / Collectio n Time Received Time / Laterality Volume Impressions 01/18/2016 7:52 AM CDT IMPRESSION: ? 1. Mild left hydronephrosis and hydroure ter with 3 ureteral calculi identified one at the distal left ureter and 2 in the mid left ureter. 2. Additional intrarenal calculi more pr ominent on the left. 3. No other acute appearing abnormality. ? CHARLENE HAN MD Narrative 01/18/2016 7:[address] ABDOMEN PELVIS W/O CONTRAST 01/18/2016 7:25 AM TECHNIQUE: Images from diaphragm to pubi c symphysis without oral or IV contrast, renal stone protocol ? Radiation dose for this scan was reduced using automated exposure control, adjustment of the mA and/or kV according to patient size, or iterative reconstruction technique. HISTORY: right flank pain and hematuria COMPARISON: 09/20/2009 CT abdomen pelvis FINDINGS: Abdomen and Pelvis: Left urinary tract; 2 adjacent calculi i n the mid left ureter 0.3 cm in size and a 0.5 cm left distal ureter stone with mild hydronephrosis and hydroureter. 2 additional left intra renal kidney stones are identified 0.6 cm in the mid left kidney and 0.4 cm in the lower pole left kidney. The number of urinary tract calculi on the left has increased significantly since the prior CT of 2009. 1 cm fat attenuation mass lateral mid left kidney compatible with an angiomyolipoma. Right urinary tract; 2 tiny 0.1 cm densi ties in the mid to lower right kidney could be very tiny intrarenal kid christine stones without evidence for obstruction. No hydroureter or urete ral calculi. Bladder; unremarkable. Remainder the abdomen or pelvis; ? L nahomy bases clear. Within the limits of a noncontrast CT the liver, ga llbladder, spleen, pancreas, and adrenal glands appear normal. No per iaortic or pelvic adenopathy, no free fluid or acute bowel abnormality . The appendix appears normal. No aggressive bone lesions. ? Procedure Note Charlene Han MD - 01/18/2016For matting of this note might be different from the original. CT ABDOMEN PELVIS W/O CONTRAST 01/18/2016 7:25 AM TECHNIQUE: Images from diaphragm to pubi c symphysis without oral or IV contrast, renal stone protocol Radiation dose for this scan was reduced using automated exposure control, adjustment of the mA and/or kV according to patient size, or iterative reconstruction technique. HISTORY: right flank pain and hematuria COMPARISON: 09/20/2009 CT abdomen pelvis FINDINGS: Abdomen and Pelvis: Left urinary tract; 2 adjacent calculi i n the mid left ureter 0.3 cm in size and a 0.5 cm left distal ureter stone with mild hydronephrosis and hydroureter. 2 additional left intra renal kidney stones are identified 0.6 cm in the mid left kidney and 0.4 cm in the lower pole left kidney. The number of urinary tract calculi on the left has increased significantly since the prior CT of 2009. 1 cm fat attenuation mass lateral mid left kidney compatible with an angiomyolipoma. Right urinary tract; 2 tiny 0.1 cm densi ties in the mid to lower right kidney could be very tiny intrarenal kid christine stones without evidence for obstruction. No hydroureter or urete ral calculi. Bladder; unremarkable. Remainder the abdomen or pelvis; Lung ba ses clear. Within the limits of a noncontrast CT the liver, ga llbladder, spleen, pancreas, and adrenal glands appear normal. No per iaortic or pelvic adenopathy, no free fluid or acute bowel abnormality . The appendix appears normal. No aggressive bone lesions. IMPRESSION: 1. Mild left hydronephrosis and hydroure ter with 3 ureteral calculi identified one at the distal left ureter and 2 in the mid left ureter. 2. Additional intrarenal calculi more pr ominent on the left. 3. No other acute appearing abnormality. CHARLENE HAN MD Saranya Hicks MD IMG CT ORDERABLES (ABNORMAL) Basic metabolic panel (01/18/2016 7:00 AM CDT) athologist Signature Sodium 137 133 - 144 [place] mmol/L [facility] Potassium 3.8 3.4 - 5.3 [place] mmol/L [facility] Chloride 104 94 - 109 [place] mmol/L [facility] Carbon Dioxide 25 20 - 32 [place] mmol/L [facility] Anion Gap 8 3 - 14 [place] mmol/L [facility] Glucose 103 (H) 70 - 99 [place] mg/dL [facility] Urea Nitrogen 10 7 - 30 [place] mg/dL [facility] Creatinine 0.83 0.52 - [place] 1.04 mg/dL [facility] GFR Estimate 77 >60 [place] mL/min/1.[address] Comment: Non GFR Calc GFR Estimate If Black >90 >60 mL/min/1.7m2 F [facility] GFR Calc HOSP ITAL Calcium 8.5 8.5 - 10.1 mg/dL [facility] Specimen Anatomical Collection Method Collection Time Receive d Time (Source) Location / / Volume Laterality Blood specimen 01/18/2016 7:00 AM 016 7:03 (specimen) CDT AM CDT Saranya Hicks MD LAB - BLOOD ORDERABLES Performing Organization Address City/State/ZIP Code Phon e Number M [place] [address] [place], [place] [address] [facility] [address] [place], [place] [address] [facility] [phone] CBC + differential (01/18/2016 7:00 AM CDT) [facility] gist Method Time Signature WBC 6.5 4.0 - [place] 11.[address] RBC Count 4.67 3.8 - 5.2 [place] 10e12/L [facility] Hemoglobin 13.9 11.7 - [place] 15.7 g/dL [facility] Hematocrit 41.9 35.0 - [place] 47.0 % [facility] MCV 90 78 - 100 [facility] MCH 29.8 26.5 - [place] 33.0 pg [facility] MCHC 33.2 31.5 - [place] 36.5 g/dL [facility] RDW 12.6 10.0 - [place] 15.0 % [facility] Platelet Count 271 150 - [address] Diff Method Automated [facility] % Neutrophils 57.5 % [facility] % Lymphocytes 28.5 % [facility] % Monocytes 8.1 % [facility] % Eosinophils 4.0 % [facility] % Basophils 1.4 % [facility] % Immature 0.5 % [place] Granulocytes [facility] Nucleated RBCs 0 0 /100 [facility] Absolute 3.8 1.6 - 8.[address] [place] Neutrophil [address] [place] [address] Absolute 1.9 0.8 - 5.3 [place] Lymphocytes [address] [place] [address] Absolute 0.5 0.0 - 1.3 [place] Monocytes [address] [place] [address] Absolute 0.3 0.0 - 0.7 [place] Eosinophils [address] [place] [address] Absolute 0.1 0.0 - 0.2 [place] Basophils [address] [place] [address] Abs Immature 0.0 0 - 0.4 [place] Granulocytes [address] [place] [address] Absolute 0.0 [place] Nucleated RBC [facility] Specimen Anatomical Collection Method Collection Time Receive d Time (Source) Location / / Volume Laterality Blood specimen 01/18/2016 7:00 AM 016 7:03 (specimen) CDT AM CDT Saranya Hicks MD LAB - BLOOD ORDERABLES Performing Organization Address City/State/ZIP Code Phon e Number M [facility] [address] [place], [place] [address] [facility] [address] [place], [place] [address] [facility] [phone] Urine Culture Aerobic Bacterial (01/18/2016 6:34 AM CDT) [facility] Method Time Signature Specimen [facility] Culture Micro No growth INFECTIOUS DISEASE DIAGNOSTIC LABORATORY Micro Report FINAL INFECTIOUS Status 01/19/2016 DISEASE DIAGNOSTIC LABORATORY Specimen Anatomical Collection Method Collection Time Receive d Time (Source) Location / / Volume Laterality 01/18/2016 6:34 AM 6 8:41 CDT AM CDT Tito Marr MD LAB - MICRO GENERAL ORDERABL ES Performing Organization Address City/[facility] Phon e Number INFECTIOUS DISEASES [address] [place] [address] DIAGNOSTIC LABORATORY, [facility] [address] [place], [place] [address], [facility] [phone] INFECTIOUS DISEASE [address] [place] [address], [facility] DIAGNOSTIC LABORATORY HCG qualitative urine (01/18/2016 6:34 AM CDT) athologist Signature HCG Qual Urine Negative NEG [facility] Specimen Anatomical Collection Method Collection Time Receive d Time (Source) Location / / Volume Laterality Urine specimen URINE SPECIMEN 01/18/2016 6:34 AM 01/17 6:37 (specimen) OBTAINED BY CLEAN CDT AM CDT CATCH PROCEDURE / Unknown Saranya Hicks MD LAB - URINE ORDERABLES Performing Organization Address City/[facility]/ZIP [facility] Phon e Number M [facility] [address] [place], [place] [address] [facility] [address] [place], [place] [address] [facility] [phone] (ABNORMAL) UA with Microscopic (01/18/2016 6:34 AM CDT) [facility] Method Time Signature Color Urine Bloody [facility] Appearance Urine Turbid [facility] Glucose Urine Negative NEG mg/dL [facility] Bilirubin Urine Negative NEG [facility] Ketones Urine Negative NEG mg/dL [facility] Specific [place] 1.015 1.003 - [place] Urine 1.035 [facility] Blood Urine Large (A) NEG [facility] pH Urine 5.5 5.0 - 7.0 [place] pH [facility] Protein Albumin 30 (A) NEG mg/dL [facility] Urobilinogen Normal 0.0 - 2.0 [place] mg/dL mg/dL [facility] Nitrite Urine Negative NEG [facility] Leukocyte Negative NEG [place] Esterase Urine [facility] Source Midstream [facility] WBC Urine 36 (H) 0 - 2 [facility] RBC Urine >182 (H) 0 - 2 [facility] Bacteria Urine Few (A) NEG /HPF [facility] Squamous 5 (H) 0 - 1 [place] Epithelial /HPF /[facility] Mucous Urine Present (A) NEG /LPF [facility] Specimen Anatomical Collection Method Collection Time Receive d Time (Source) Location / / Volume Laterality Urine specimen URINE SPECIMEN 01/18/2016 6:34 AM 01/17 6:37 (specimen) OBTAINED BY CLEAN CDT AM CDT CATCH PROCEDURE / Unknown Saranya Zoey Hicks MD LAB - URINE ORDERABLES Performing Organization Address City/State/ZIP Code Phon e Number M [place] [address] [phone] documented in this encounter Visit Diagnoses Diagnosis Calculus of kidney and ureter Calculus of kidney Angiomyolipoma Benign neoplasm of kidney, except pelvis Renal colic documented in this encounter Administered Medications Inactive Administered Medications - up to 3 most recent administrations Medication Order MAR Action Action Date Dose Rate Site 0.9% sodium chloride + KCl 20 New Bag 01/18/2016 10:04 AM CDT 100 mL/hr mEq/L infusion at 100 mL/hr, Intravenous, CONTINUOUS, Starting on [place] 01/18/16 at 0935, Until [place] 01/18/16 at 1942 0.9% sodium chloride BOLUS New Bag 01/18/2016 7:03 AM CDT 1,000 mLs Intravenous, 1,000 mL, ONCE, On [place] 01/18/16 at 0638, For 1 dose fentaNYL Citrate (PF) (SUBLIMAZE) injection Given 01/18/2016 4:28 PM CDT 50 mcg 25-50 mcg 25-50 mcg, Intravenous, EVERY 2 MIN PRN, other, acute pain while in PACU., Starting on [place] 01/18/16 at 1548, MAX cumulative dose = 250 mcg. Use Fentanyl initially, as a short acting agent for acute pain control. If insufficient, or a longer acting agent is needed, begin Morphine or Hydromorphone if ordered., PACU Given 01/18/2016 3:55 PM CDT 50 mcg ketorolac (TORADOL) injection 30 mg Given 01/18/2016 7:04 AM CDT 30 mg 30 mg, Intravenous, ONCE, On [place] 01/18/16 at 0638, For 1 dose documented in this encounter Active and Recently Administered Medications Times are shown in CDT. 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 [place] 01/18/16 at 0859, For 1 dose, Indications: Surgical Prophylaxis ketorolac (TORADOL) injection 30 mg (COMPLETED) 0704 (Given - Provider: Josee Ricardo RN) 30 mg, Intravenous, ONCE, [place] 01/18/16 at 0638, For 1 dose Continuous Medication Order 01/16/2016 01/17/2016 01/18/2016 0.9% sodium chloride + KCl 20 mEq/L infusion (CANCELED) 1004 (New Bag - Provider: Ernestine Penny, SHAREE)1331 (ED Infusing on Admission/transfer - Provider: Ernestine Penny RN - Comment: to or) at 100 mL/hr, Intravenous, CONTINUOUS, S tarting [place] 01/18/16 at 0935, Until [place] 01/18/16 at 1942 PRN Medication Order 01/16/2016 01/17/2016 01/18/2016 fentaNYL Citrate (PF) (SUBLIMAZE) injection 25-50 mcg (CANCELED) 1555 (Given - Provider: Hannah Shaffer, RN)1628 (Given - Provider: Hannah Shaffer RN) 25-50 mcg, Intravenous, EVERY 2 MIN PRN, Starting [place] 01/18/16 at 1548, other, acute pain while in PACU., MAX cumulative dose = 250 mcg. Use Fentanyl initially, as a short acting agent for acute pain con trol. If insufficient, or a longer actin g agent is needed, begin Morphine or Hydromorphone if ordered., PACU opium-belladonna (B&O SUPPRETTES) 30-16.2 MG suppository (CANCEL ED) 1528 (Given - Provider: Tito Marr MD - Comment: 30mg) PRN, Starting [place] 01/18/16 at 1528, Intra-procedure sterile water irrigation (bag) (CANCELED) 1529 (Given - Provider: Tito Marr MD) PRN, Intra-procedure, Starting [place] 01/18/16 at 1529, Until [place] 04/24 at 1706 documented in this encounter Additional Health Concerns Assessment Noted Time PHQ-9 Depression Total Score: 4 09/02/2015 7:59 AM CDT documented as of this encounter Care Teams Ditching Machine Operating Engineer Relationship Specialty Start Date End Date Esmer Roland MD PCP - General Family Practice 09/21/10 01/29/17 documented as of this encounter
--- OUTSIDE RECORDS SUMMARY | 2022-04-11 21:43 | XMS_ITS | Encounter Summary ---
:1975 Author Organization [place] Address [address] [place] [address] Care Team Providers Name Role Phone Esmer Roland MD Primary Care Provider [phone] Reason for Visit (Routine) - Closed Specialty Diagnoses / Procedures Referred By Contact Refer red To Contact Radiology / Diagnoses [facility] ORDER, sb SHANIKA - [phone] READ AND CALL: YONY SANDOVAL - [phone] ANGELES OJHANSEN Ultrasound cc Radiology. Procedures US LWR EXT VENOUS DUPLEX LEFT [address] [place] [address] Phone: Fax: Referral ID Status Reason Start Date Expiration Date Visits Requ ested Visits Authorized [id number] Closed 02/27/2016 02/26/2017 1 1 Encounter Details Date Type Department Care Team Description 02/27/2016 [facility] [place] [facility] [id number] [place], [place] [id number] Social History Tobacco Use Types Packs/Day Years Used Date Smoking Tobacco: Former Smokeless Tobacco: Never Comments: Very Occasional Alcohol Use Standard Drinks/Week Comments Yes 0 (1 standard drink = 0.6 oz pure 1 TIME A a week(1 glass of wine) 1 alcohol) qo weekend Sex Assigned at Date Recorded Not on file documented as of this encounter Medications at Time of Discharge Medication Sig Dispensed Refills Start Date End Date DULoxetine HCl (CYMBALTA PO) Take 90 mg by 0 10/31/2016 mouth every evening hydrochlorothiazide 12.5 MG Take 1 tablet 30 tablet 0 02/2611/25/2016 TABSIndications: Ankle edema (12.5 mg) by mouth daily phentermine 37.5 MG Take 1 capsule 30 capsule 0 02/15/2016 0 11/25/2016 capsuleIndications: Morbid (37.5 mg) by obesity due to excess mouth every calories (H) morning documented as of this encounter Plan of Treatment Not on filedocumented as of this encounter Procedures Procedure Name Priority Date/Time Associated Diagnosis Comme nts US LOWER EXTREMITY Routine 02/27/2016 2:16 PM Left leg sweyesseniain g Results for this VENOUS DUPLEX LEFT CDT procedure are in the results section. documented in this encounter Results US Lower Extremity Venous [...] he left leg. MICHELLE EVANS MD Yony Sandoval PA-C IMLaura US ORDERABLES documented in this encounter Visit Diagnoses Diagnosis Left leg swelling documented in this encounter Additional Health Concerns Assessment Noted Time PHQ-9 Depression Total Score: 3 04/11/2022 7:03 AM CDT documented as of this encounter Care Teams Supervisor Wound Relationship Specialty Start Date End Date Esmer Roland MD PCP - General Family Practice 09/21/10 01/29/17 documented as of this encounter
--- OUTSIDE RECORDS SUMMARY | 2022-04-11 21:43 | XMS_ITS | Encounter Summary ---
:1975 Author Organization [facility] Address [address] [place] [address] Care Team Providers Name Role Phone Esmer Roland MD Primary Care Provider [phone] Yony Garcia PA-C Unavailable [phone] Yony Garcia PA-C Unavailable [phone] Reason for Visit Reason Comments Recheck Medication Encounter Details Date Type Department Care Team Description 11/25/2016 Office Visit [facility] Yony Garcia Major depressive disorder, recurrent episode, mild (H) (Primary Dx); Clinic Sara Hoyos PA-C Need for xygbacgnne-pgqxfeb-yltbuznym (T dap) vaccine [place] [address] [address], [address] [place] [address] [place], [place] [phone] (Wo rk) [address] [phone] Social History Tobacco Use Types Packs/Day Years [...] Reading Time Taken Comments Blood Pressure 114/70 11/25/2016 8:26 AM CDT Pulse 84 11/25/2016 8:26 AM CDT Temperature 37.4 ??C (99.3 ??F) 11/25/2016 8:26 AM CDT Respiratory Rate 20 11/25/2016 8:26 AM CDT Oxygen Saturation - - Inhaled Oxygen Concentration - - Weight 104.8 kg (231 lb) 11/25/2016 8:26 AM CDT Height 167.6 cm (5' 6) 11/25/2016 8:26 AM CDT Body Mass Index 37.28 11/25/2016 8:26 AM CDT documented in this encounter Progress Notes Yony Garcia PA-C - 11/25/2016 8:20 AM CDT SUBJECTIVE: Dariana Osman is a 41 year old female who presents to clinic today for the following health issues: Depression and Anxiety Follow-Up ?? Status since last visit: No change ?? Other associated symptoms:lack of energy ?? Complicating factors: ?? Significant life event: No ?? Current substance abuse: None PHQ-9 SCORE 01/30/2016 02/01/2016 11/01/2016 Total Score - - - Total Score MyChart 3 (Minimal depression) - - Total Score - 5 2 EUGENE-7 SCORE 09/01/2015 01/30/2016 02/01/2016 Total Score - - - Total Score - 5 (mild anxiety) - Total Score 2 - 5 PHQ-9 Kenyan PHQ-9 Any Language GAD7 Patient here to discuss her medication. Would like to consider decreasing dose. Dose went up to 90mgin Jul 2015 and has been doing well on that dose, stressors in life have decreased since that time. Mentions that she has terrible side effects when she misses a dose- violent illness, vomiting etc. Does not like effect on weight either. Trying to diet and exercise and her weight is not changing at all. She would like to try going back down to 60mg. Problem list and histories reviewed & adjusted, as indicated. Additional history: as documented Reviewed and updated as needed this visit by clinical staff Tobacco Allergies Meds Problems Med Hx Surg Hx Fam Hx Soc Hx Reviewed and updated as needed this visit by Provider ROS: Constitutional, HEENT, cardiovascular, pulmonary, gi and gu systems are negative, except as otherwise noted. OBJECTIVE: BP 114/70 (BP Location: Right arm, Patient Position: Chair, Cuff Size: Adult Large) Pulse 84 Temp 99.3 ??F (37.4 ??C) (Oral) Resp 20 Ht 5' 6 (1.676 m) Wt 231 lb (104.8 kg) BMI 37.28 kg/m2 Body mass index is 37.28 kg/(m^2). GENERAL: healthy, alert and no distress MS: no gross musculoskeletal defects noted, no edema SKIN: no suspicious lesions or rashes PSYCH: mentation appears normal, affect normal/bright Diagnostic Test Results: none ASSESSMENT/PLAN: 1. Major depressive disorder, recurrent episode, mild (H) She will try to wean down to 60mg using the 30mg cap every other day as needed and then stop. Pleasewatch mood and follow up as needed. Could consider using Wellbutrin as an added agent in the future. - DULoxetine (CYMBALTA) 60 MG EC capsule; Take 1 capsule (60 mg) by mouth daily Dispense: 90 capsule; Refill: 1 - DULoxetine (CYMBALTA) 30 MG EC capsule; Take 1 capsule (30 mg) by mouth daily Take one capsule by mouth every day with 60 mg tablet if needed to wean down. Dispense: 30 capsule; Refill: 0 2. Need for tdhgmjginv-xclvhmo-cquohkvrt (Tdap) vaccine - TDAP VACCINE (ADACEL) Yony Garcia PA-C [facility] documented in this encounter Nursing Notes Yuliya Richard MA - 11/25/2016 8:20 AM CDT Chief Complaint Patient presents with ??? Recheck Medication Initial BP 114/70 (BP Location: Right arm, Patient Position: Chair, Cuff Size: Adult Large) Pulse 84 Temp 99.3 ??F (37.4 ??C) (Oral) Resp 20 Ht 5' 6 (1.676 m) Wt 231 lb (104.8 kg) BMI 37.28 kg/m2 Estimated body mass index is 37.28 kg/(m^2) as calculated from the following: Height as of this encounter: 5' 6 (1.676 m). Weight as of this encounter: 231 lb (104.8 kg). Medication Reconciliation: complete Yuliya Richard MA documented in this encounter Plan of Treatment Not on filedocumented as of this encounter Visit Diagnoses Diagnosis Major depressive disorder, recurrent epi sode, mild (H) - Primary Major depressive disorder, recurrent epi sode, mild Need for llasjxxftn-etmswic-qxdfjfpxe (T dap) vaccine Need for prophylactic vaccination with c ombined vmobxjqfkl-cbudnlj-rnmibwepa (DTP) vaccine documented in this encounter Additional Health Concerns Assessment Noted Time PHQ-9 Depression Total Score: 2 11/02/2016 7:17 AM CDT documented as of this encounter Care Teams Multimedia Author Relationship Specialty Start Date End Date Esmer Roland MD PCP - General Family Practice 09/21/10 01/29/17 Yony Garcia PA-C PCP - Assigned PCP 09/01/16 08/11/18 [id number] SONJA KRAUSE [id number] Yony Garcia PA-C Assigned PCP 09/01/16 02/05/20 [id number] SONJA KRAUSE [id number] documented as of this encounter
--- OUTSIDE RECORDS SUMMARY | 2022-04-11 21:43 | XMS_ITS | Encounter Summary ---
:1975 Author Organization [facility] Address [address] [place] [address] Care Team Providers Name Role Phone Yony Garcia PA-C Primary Care Provider [phone] Yony Garcia PA-C Unavailable [phone] Yony Garcia PA-C Unavailable [phone] Reason for Visit Reason Comments Surgical Followup hysterectomy 02/05/17 Encounter Details Date Type Department Care Team Description 02/18/2017 Office Visit [facility] Jeimy Christensen S/P hyst erectomy (Primary Dx); [facility] Mor[facility] due to excess [facility] (H ) [address] [address] [place], [place] [phone] [address] Social History Tobacco Use Types Packs/Day Years [...] Reading Time Taken Comments Blood Pressure 110/60 02/18/2017 4:10 PM CDT Pulse - - Temperature 37.4 ??C (99.4 ??F) 02/18/2017 4:10 PM CDT Respiratory Rate - - Oxygen Saturation - - Inhaled Oxygen Concentration - - Weight 104.9 kg (231 lb 4.8 oz) 02/18/2017 4:10 PM CDT Height 167.6 cm (5' 6) 02/18/2017 4:10 PM CDT Body Mass Index 37.33 02/18/2017 4:10 PM CDT documented in this encounter Patient Instructions Patient InstructionsJeimy Christensen DO - 02/18/2017 4:30 PM CDT Return in [address] Jeimy Christensen DO Obstetrics and Gynecology [facility] documented in this encounter Progress Notes Dee Geiger - 02/18/2017 4:30 PM CDT Subjective: 41 year old female status post robotic assisted total laparoscopic hysterectomy cystoscopy, endometriosis resection on 02/05/17, here for incision check. Doing well, denies fever, significant pain. Is not taking pain medications. Denies vaginal bleeding. Patient reports she thinks she overdid it on Friday. She worked from 9:30 to 3 and states her symptoms felt as if she had a UTI, so she requests a work note stating she should only work half days. C/o of uncomfortable feelings. In addition, she mentions the glue is falling off the incision. Denies pain or bleeding. Patient would also like a diet pill prescribed. She recently got a membership at [employer] and would like assistance losing weight. This document serves as a record of the services and decisions personally performed and made by Jeimy Christensen DO. It was created on his/her behalf by Evonne Geiger, a trained medical record librarians teacher. The creation of this document is based the provider's statements to the medical record librarians teacher. Sasha Geiger 4:21 PM, February 18, 2017 Objective: EXAM: BP 110/60 Temp 99.4 ??F (37.4 ??C) (Oral) Ht 1.676 m (5' 6) Wt 104.9 kg (231 lb 4.8 oz) LMP06/04/2017 BMI 37.33 kg/m2 Constitutional: healthy, alert and no distress Gastrointestinal: Abdomen soft, non-tender. Incision intact, no erthema, drainage. Assessment/Plan: 41 year old female status post robotic assisted total laparoscopic hysterectomy cystoscopy, endometriosis resection on 02/05/17. V67.00C Surgery Follow-Up Examination (primary encounter diagnosis) Comment: Plan: 1) Incision healing well 2) Work note given today 3) Patient desires diet pill: Rx contrave or phentermine 4) Return to clinic in 8 weeks for follow-up or if fever occurs Rx: Contrave 8-90 mg tab po q 12 hr Phentermine 37.5 mg capsule po q morning The information in this document, created by the medical record librarians teacher for me, accurately reflects the services I personally performed and the decisions made by me. I have reviewed and approved this document for accuracy prior to leaving the patient care area. Jeimy Christensen DO 4:22 PM, 02/18/17 documented in this encounter Nursing Notes Solange Diego CMA - 02/18/2017 4:30 PM CDT . Chief Complaint Patient presents with ??? Surgical Followup hysterectomy 02/05/17 Initial BP 110/60 Temp 99.4 ??F (37.4 ??C) (Oral) Ht 5' 6 (1.676 m) Wt 231 lb 4.8 oz (104.9 kg) LMP 11/17/2016 BMI 37.33 kg/m2 Estimated body mass index is 37.33 kg/(m^2) as calculated from the following: Height as of this encounter: 5' 6 (1.676 m). Weight as of this encounter: 231 lb 4.8 oz (104.9 kg). 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
--- OUTSIDE RECORDS SUMMARY | 2022-04-11 21:43 | XMS_ITS | Encounter Summary ---
:1975 Author Organization [facility] Address [address] [place] [address] Care Team Providers Name Role Phone Yony Garcia PA-C Primary Care Provider [phone] Yony Garcia PA-C Unavailable [phone] Yony Garcia PA-C Unavailable [phone] Reason for Visit Reason Comments Pre-Op Exam Encounter Details Date Type Department Care Team Description 01/30/2017 Office Visit [facility] Yony Garcia Preop general physical exam (Primary Dx); Clinic Sara Hoyos PA-C Abnormal uterine bleeding [place] [address] [address], [address] [place] [address] [place], [place] [phone] (Wo rk) [address] [phone] Social History Tobacco Use Types Packs/Day Years [...] Sign Reading Time Taken Comments Blood Pressure 110/80 01/30/2017 8:42 AM CDT Pulse 81 01/30/2017 8:42 AM CDT Temperature 36.8 ??C (98.2 ??F) 01/30/2017 8:42 AM CDT Respiratory Rate 16 01/30/2017 8:42 AM CDT Oxygen Saturation 97% 01/30/2017 8:42 AM CDT Inhaled Oxygen Concentration - - Weight 105.7 kg (233 lb) 01/30/2017 8:42 AM CDT Height 167.6 cm (5' 6) 01/30/2017 8:42 AM CDT Body Mass Index 37.61 01/30/2017 8:42 AM CDT documented in this encounter Patient Instructions Patient InstructionsTimothy Herrera CMA - 01/30/2017 8:34 AM CDT Before Your Surgery ??? Call [...] ??? Eating and drinking prior to surgery: follow the instructions from your surgeon ??? Take a shower or bath the night before surgery. Use the soap your surgeon gave you to gently clean your skin. If you do not have soap from your surgeon, use your regular soap. Do not shave or scrubthe surgery site. Wear clean pajamas and have clean sheets on your bed. documented in this encounter Progress Notes Yony Garcia PA-C - 01/30/2017 8:34 AM CDT [address], [address] [facility] [address] Dept: [phone] PRE-OP EVALUATION: Today's date: 01/30/2017 Dariana Osman (: 1975) presents for pre-operative evaluation assessment as requested by Dr. Jeimy Christensen. 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 Proposed procedure: davinci hysterectomy total Date [...] (cervical intraepithelial neoplasia II) 11/23/2012 Priority: Medium 2006, 2008 NIL paps (ajk) 11/07/09 EMB - neg for dysplasia (ajk) 11/09/10 NIL pap (ajk) 11/23/12 ASC-H. 12/25/12 [place]= BRIGID 2. Referred to Ob~[facility], Dr. Christensen 02/18/13 LEEP= Negative, R/P pap [...] cardiovascular risks for perioperative complications such as (NV, PE, VFib and 3?? AV Block): No [...] evaluation report is provided to requesting physician. [place] Preop Guidelines documented in this encounter Nursing Notes Timothy Herrera CMA - 01/30/2017 8:40 AM CDT Chief Complaint Patient presents with ??? Pre-Op Exam Initial BP 110/80 (BP Location: Right arm, Patient Position: Chair, Cuff Size: Adult Large) Pulse 81 Temp 98.2 ??F (36.8 ??C) (Oral) Resp 16 Ht 5' 6 (1.676 m) Wt 233 lb (105.7 kg) SpO2 97% BMI 37.61 kg/m2 Estimated body mass index is 37.61 kg/(m^2) as calculated from the following: Height as of this encounter: 5' 6 (1.676 m). Weight as of this encounter: 233 lb (105.7 kg). Medication Reconciliation: complete.Timothy Post MA documented in this encounter Plan of Treatment Not on filedocumented as of this encounter Procedures Procedure Name Priority Date/Time Associated Diagnosis Comme nts CBC WITH PLATELETS Routine 01/30/2017 9:09 AM Preop general Re sults for this CDT physical exam procedure are in the results section. documented in this encounter Results CBC with platelets (01/30/2017 9:09 AM CDT) athologist Signature WBC 9.5 4.0 - 11.0 01/30/2017 [facility] 10e9/L 9:21 AM CDT [facility] RBC Count 4.92 3.8 - 5.2 01/30/2017 [facility] 10e12/L 9:21 AM CDT [facility] Hemoglobin 14.8 11.7 - 01/30/2017 [facility] 15.7 g/dL 9:21 AM CDT [facility] Hematocrit 43.4 35.0 - 01/30/2017 [facility] 47.0 % 9:21 AM CDT [facility] MCV 88 78 - 100 01/30/2017 [facility] [place] 9:21 AM CDT [facility] MCH 30.1 26.5 - 01/30/2017 [facility] 33.0 pg 9:21 AM CDT [facility] MCHC 34.1 31.5 - 01/30/2017 [facility] 36.5 g/dL 9:21 AM CDT [facility] RDW 12.6 10.0 - 01/30/2017 [facility] 15.0 % 9:21 AM CDT [facility] Platelet Count 309 150 - 450 01/30/2017 [facility] 10e9/L 9:21 AM CDT [facility] Specimen Anatomical Collection Method Collection Time Receive d Time (Source) Location / / Volume Laterality Blood specimen 01/30/2017 9:09 AM 017 9:10 (specimen) CDT AM CDT Yony Garcia PA-C LAB - BLOOD ORDERABLES Performing Organization Address City/State/ZIP Code Phon e Number [facility] [address] [place], [place] [id number] documented in this encounter Visit Diagnoses Diagnosis Preop general physical exam - Primary Other specified pre-operative examinatio n Abnormal uterine bleeding Unspecified disorder of menstruation and other abnormal bleeding from female genital tract documented in this encounter Additional Health Concerns Assessment Noted Time PHQ-9 Depression Total Score: 2 11/02/2016 7:17 AM CDT documented as of this encounter Care Teams Homicide Squad Commanding Officer Relationship Specialty Start Date End Date Yony Garcia, PCP - General Physician [employer]er - 01/30/17 07/23/18 [facility] Yony Garcia, PCP - Assigned PCP 09/01/16 08/11/18 [place] [id number] SONJA KRAUSE [id number] Yony Garcia, Assigned PCP 09/01/16 [place] [id number] SONJA KRAUSE [id number] documented as of this encounter
--- OUTSIDE RECORDS SUMMARY | 2022-04-11 21:43 | XMS_ITS | Encounter Summary ---
:1975 Author Organization [facility] Address [address] [address] Care Team Providers Name Role Phone Esmer Roland MD Primary Care Provider [phone] Yony Garcia PA-C Unavailable [phone] Yony Garcia PA-C Unavailable [phone] Reason for Visit Reason Comments Medication Refill DULoxetine (CYMBALTA) 60 MG and 30 MG cap Encounter Details Date Type Department Care Team Description 10/31/2016 Refill [facility] Esmer Roland Medicat ion Refill Clinic Sara Byrd MD (DULoxetine (CYMBALTA) [facility], [address] [place] [address] AVE 60 MG and 30 MG cap) [address] [place] [address] [place], [place] [phone] (Wo rk) [address] [phone] Social History Tobacco Use Types Packs/Day Years Used Date Smoking Tobacco: Former Smokeless Tobacco: Never Comments: Very Occasional Alcohol Use Standard Drinks/Week Comments Yes 0 (1 standard drink = 0.6 oz pure 1 TIME A a week(1 glass of wine) 1 alcohol) qo weekend Sex Assigned at Date Recorded Not on file documented as of this encounter Miscellaneous Notes Telephone Encounter - Shantel Byers RN - 11/01/2016 9:18 AM CDT Pt returned call PHQ 9 completed PHQ-9 SCORE 01/30/2016 02/01/2016 11/01/2016 Total Score - - - Total Score MyChart 3 (Minimal depression) - - Total Score - 5 2 Agrees to make appt, will check work schedule and make appt on line Medication is being filled for 1 time refill only due to: due for f/u appt Shantel Byers RN, BS Clinical Nurse Triage. Telephone Encounter - Mayela Reese RN - 11/01/2016 7:58 AM CDT Patient due for PHQ-9. Telephone Encounter - Madina Douglas - 11/01/2016 7:40 AM CDT Pharm is requesting 1 60mg cap and 1 30mg cap, med list states 3 caps of 30mg daily. DULoxetine (CYMBALTA) 30 MG EC capsule Sig: Take 3 capsules (90 mg) by mouth daily Last Written Prescription Date: 04/09/16 Last Fill Quantity: 90, # refills: 5 Last Office Visit with G, P or [facility] prescribing provider: 02/27/2016 BP Readings from Last 3 Encounters: 02/27/16 130/80 02/02/16 132/80 01/18/16 131/90 Pulse: (for Fetzima) Creatinine Date Value Ref Range Status 01/18/2016 0.83 0.52 - 1.04 mg/dL Final Last PHQ-9 score on record= PHQ-9 SCORE 02/01/2016 Total Score MyChart - Total Score 5 DICK Liu November 01, 2016 7:41 AM documented in this encounter Plan of Treatment Not on filedocumented as of this encounter Visit Diagnoses Diagnosis Major depressive disorder, recurrent epi sode, mild (H) Major depressive disorder, recurrent epi sode, mild documented in this encounter Additional Health Concerns Assessment Noted Time PHQ-9 Depression Total Score: 2 11/02/2016 7:17 AM CDT documented as of this encounter Care Teams Houseman Relationship Specialty Start Date End Date Esmer Roland MD PCP - General Family Practice 09/21/10 01/29/17 Yony Garcia PA-C PCP - Assigned PCP 09/01/16 08/11/18 [id number] SONJA KRAUSE [id number] Yony Garcia PA-C Assigned PCP 09/01/16 02/05/20 [id number] SONJA KRAUSE [id number] documented as of this encounter
--- OUTSIDE RECORDS SUMMARY | 2022-04-11 21:43 | XMS_ITS | Encounter Summary ---
:1975 Author Organization [place] Address [address] [facility] [place] [address] Care Team Providers Name Role Phone Esmer Roland MD Primary Care Provider [phone] Reason for Visit Reason Comments Hematuria Encounter Details Date Type Department Care Team Description 01/18/2016 Surgery [facility] Tito Marr COMB INED CYSTOSCOPY, [facility] BANERJEE LEFT URETEROSCOPY, [address] [place], [place] [address] [place] [id number] SONJA SWIFT [id number] LEFT URETER(S), INSERT [phone] (Wo rk) STENT, balloon dilation Surgery Details Date/Time Status Location OR Service Patient Class Case Case Trauma Class Type Case? 01/18/16 2:30 Posted [facility] OR OR 14 Laser Inpatient PM Urology Panel 1 Procedure LRB Anes Op Region Wound Class Commen ts COMBINED CYSTOSCOPY, Left General Flank II-Clean Contam inated COMBINED CYSTOSCOPY, LEFT URETEROSCOPY, LEFT U RETEROSCOPY, LASER HOLMIUM LASER HOLMI UM LITHOTRIPSY ON STAND LITH OTRIPSY ON STAND BY LEFT URETER(S), BY LEF T URETER(S), INSERT STENT, balloon INS ERT STENT, dilation balloon dilati on Surgeon Surgeon Role Service Panel Tito Marr MD Primary Laser Urology 1 documented in [...] Sign Reading Time Taken Comments Blood Pressure 136/94 01/18/2016 1:36 PM CDT Pulse 68 01/18/2016 9:30 AM CDT Temperature 36.5 ??C (97.7 ??F) 01/18/2016 1:36 PM CDT Respiratory Rate 14 01/18/2016 1:36 PM CDT Oxygen Saturation 100% 01/18/2016 1:36 PM CDT Inhaled Oxygen Concentration - - Weight 102.1 kg (225 lb) 01/18/2016 1:36 PM stated by anthony crocker CDT Height 169.5 cm (5' 6.75) 01/18/2016 [...] no new meds unless prescribed by Urology. Amdaeo Miller MD documented in this encounter Discharge Instructions Discharge InstructionsAgnieszka Pretty RN - 01/18/2016 5:18 PM CDT CYSTOSCOPY DISCHARGE INSTRUCTIONS [facility] [phone] YOU MAY GO BACK TO YOUR NORMAL [...] Miller MD - 01/18/2016 12:02 PM CDT [facility] History and Physical Hospitalist Date of Admission: [...] after OR Amadeo Miller MD, Hospitalist Pager: [phone] Disposition: Expected discharge this afternoon after procedure [...] it with pertinent information if needed. Dariana Sellers Jacqui reports that she has quit smoking. She [...] JR, MD MT: #[id number] Name: DARIANA OSMAN Account: [id number] : 1975 Consult Date: 01/18/2016 Document: [id number] cc: Esmer Marr Jr, MD documented in [...] bathroom, and call light is in place. person investigator: connie hodge Ernestine Penny RN - 01/18/2016 [...] update in regards to her ED course. 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 She was taken to the cystoscopy suite and placed in the supine position. After adequate general laryngeal mask anesthesia, the patient was placed in lithotomy position and her genitalia were prepped and draped enrique sterile fashion. A #22 Singaporean Storz cystoscope with obturator was gently introduced [...] removed the cystoscope and passed a 6.9 Singaporean ureteroscope into the ureter visualized 3 stones [...] Iremoved that stent and passed a 4.7 Singaporean x 26 cm stent, which just reached. [...] that time. TITO MARR JR, MD MT: [id number] Name: DARIANA OSMAN Account: [id number] : 1975 Procedure Date: 01/18/2016 Document: [id number] cc: [facility] Tito Marr Jr, MD Brief Op Note - Tito Marr MD - 01/18/2016 3:48 PM CDT [facility] Brief Operative Note Pre-operative diagnosis: Left [...] extracted Pharmacy-Admission Medication History - Katheryn Caba [facility] - 01/18/2016 8:57 AM CDT Admission medication history interview status for this patient is complete. See [facility] admission navigator for allergy information, prior to admission medications and immunization status. 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 CPT Codes: A: 47207-JA TESTING LAB LOCATION: [address] ??[id number] COLLECTION SITE: Client: [facility] Location: RHOR (R) Specimen Anatomical Collection Method Collection Time Receive d Time (Source) Location / / Volume Laterality 01/18/2016 3:28 PM 6 3:53 CDT PM CDT Tito Marr MD [facility] Performing Organization Address City/State/ZIP Code Phon e Number [place] Stone analysis (01/18/2016 3:28 PM CDT) Component Value Ref Test Analysis Performed At [facility] Range Method Time Signature Stone SEE NOTE [facility] Composition (Note) [place] Light brown calculus composed primarily of: HOSPITAL [...] composition determined by FTIR analysis. Performed by [facility], [address] [place] [id number] [email or web address], Eduard Rivas MD, Lab. Director Calculi Number 3 [facility] Calculi Size 5 to 9 [facility] Unit: [facility] Calculi SEE NOTE [facility] Description (Note) [facility] Specimen consists of three, medium, HOSPITAL light brown/dark brown, irregular calculi. Stone Mass 123 mg [facility] Specimen (Source) Anatomical Collection Method Collection Time Re ceived Time Location / / Volume Laterality Calculus specimen LEFT KIDNEY 01/18/2016 3:28 PM (specimen) STRUCTURE / CDT Unknown Tito Marr MD LAB - BODY FLUIDS ORDERABLES Performing Organization Address City/State/ZIP Code Phon e Number [facility] [address] [phone] [facility] [address] [phone] Abd/pelvis CT no contrast - Stone Protocol [...] athologist Signature Sodium 137 133 - 144 [place] mmol/L [facility] Potassium 3.8 3.4 - 5.3 [place] mmol/L [facility] Chloride 104 94 - 109 [place] mmol/L [facility] Carbon Dioxide 25 20 - 32 [facility] mmol/L [facility] Anion Gap 8 3 - 14 [facility] mmol/L [facility] Glucose 103 (H) 70 - 99 [facility] mg/dL [facility] Urea Nitrogen 10 7 - 30 [facility] mg/dL [facility] Creatinine 0.83 0.52 - [facility] 1.04 mg/dL [facility] GFR Estimate 77 >60 [facility] mL/min/1.7 [facility] m2 [facility] Comment: Non GFR Calc GFR Estimate If Black >90 >60 mL/min/1.7m2 F [facility] GFR Calc HOSP ITAL Calcium 8.5 8.5 - 10.1 mg/dL [facility] Specimen Anatomical Collection Method Collection Time Receive d Time (Source) Location / / Volume Laterality Blood specimen 01/18/2016 7:00 AM 016 7:03 (specimen) CDT AM CDT Saranya Hicks MD LAB - BLOOD ORDERABLES Performing Organization Address City/State/ZIP Code Phon e Number [facility] [address] [place], [place] [address] [facility] [address] [phone] CBC + differential (01/18/2016 7:00 AM CDT) [facility] gist Method Time Signature WBC 6.5 4.0 - [facility] 11.0 [facility] 10e9/[facility] RBC Count 4.67 3.8 - 5.2 [facility] 10e12/L [facility] Hemoglobin 13.9 11.7 - [facility] 15.7 g/dL [facility] Hematocrit 41.9 35.0 - [facility] 47.0 % [facility] MCV 90 78 - 100 [facility] MCH 29.8 26.5 - [facility] 33.0 pg [facility] MCHC 33.2 31.5 - [place] 36.5 g/dL [facility] RDW 12.6 10.0 - [facility] 15.0 % [facility] Platelet Count 271 150 - [address]9/[facility] Diff Method Automated [facility] % Neutrophils 57.5 % [facility] % Lymphocytes 28.5 % [facility] % Monocytes 8.1 % [facility] % Eosinophils 4.0 % [facility] % Basophils 1.4 % [facility] % Immature 0.5 % [facility] Granulocytes [facility] Nucleated RBCs 0 0 /100 [facility] Absolute 3.8 1.6 - 8.3 [facility] Neutrophil 10e9/L [facility] Absolute 1.9 0.8 - 5.3 [facility] Lymphocytes 10e9/L [facility] Absolute 0.5 0.0 - 1.3 [facility] Monocytes 10e9/L [facility] Absolute 0.3 0.0 - 0.7 [facility] Eosinophils 10e9/L [facility] Absolute 0.1 0.0 - 0.2 [facility] Basophils 10e9/L [facility] Abs Immature 0.0 0 - 0.4 [facility] Granulocytes [address] [place] [address] Absolute 0.0 [facility] Nucleated RBC [facility] Specimen Anatomical Collection Method Collection Time Receive d Time (Source) Location / / Volume Laterality Blood specimen 01/18/2016 7:00 AM 016 7:03 (specimen) CDT AM CDT Saranya Hicks MD LAB - BLOOD ORDERABLES Performing Organization Address City/State/ZIP Code Phon e Number [facility] [address] [place], [place] [address] H[facility] [address] [address] [facility] [phone] Urine Culture Aerobic Bacterial (01/18/2016 6:34 AM CDT) Patholo gist Method Time Signature Specimen [facility] Culture Micro No growth INFECTIOUS DISEASE DIAGNOSTIC LABORATORY Micro Report FINAL INFECTIOUS Status 01/19/2016 DISEASE DIAGNOSTIC LABORATORY Specimen Anatomical Collection Method Collection Time Receive d Time (Source) Location / / Volume Laterality 01/18/2016 6:34 AM 6 8:41 CDT AM CDT Tito Marr MD LAB - MICRO GENERAL ORDERABL ES Performing Organization Address City/[facility]/ZIP [facility] Phon e Number INFECTIOUS DISEASES [address] [place] [address] DIAGNOSTIC LABORATORY, [facility] [address] [phone], [facility] [phone] INFECTIOUS DISEASE [address] DIAGNOSTIC LABORATORY HCG qualitative urine (01/18/2016 6:34 AM CDT) P athologist Signature HCG Qual Urine Negative NEG [facility] Specimen Anatomical Collection Method Collection Time Receive d Time (Source) Location / / Volume Laterality Urine specimen URINE SPECIMEN 01/18/2016 6:34 AM 01/17 6:37 (specimen) OBTAINED BY CLEAN CDT AM CDT CATCH PROCEDURE / Unknown Saranya Hicks MD LAB - URINE ORDERABLES Performing Organization Address City/State/ZIP Code Phon e Number [facility] [address] [place], [place] [address] [facility] [address] [phone] [facility] [phone] (ABNORMAL) UA with Microscopic (01/18/2016 6:34 AM CDT) [facility] Method Time Signature Color Urine Bloody [facility] Appearance Urine Turbid [facility] Glucose Urine Negative NEG mg/dL [facility] Bilirubin Urine Negative NEG [facility] Ketones Urine Negative NEG mg/dL [facility] Specific [place] 1.015 1.003 - [facility] Urine 1.035 [facility] Blood Urine Large (A) NEG [facility] pH Urine 5.5 5.0 - 7.0 [facility] Protein Albumin 30 (A) NEG mg/dL [facility] Urobilinogen Normal 0.0 - 2.0 [place] mg/dL mg/dL [facility] Nitrite Urine Negative NEG [facility] Leukocyte Negative NEG [facility] Esterase Urine [facility] Source Midstream [facility] WBC Urine 36 (H) 0 - 2 [facility] RBC Urine >182 (H) 0 - 2 [facility] Bacteria Urine Few (A) NEG /HPF [facility] Squamous 5 (H) 0 - 1 [facility] Epithelial /HPF /HPF [facility] Mucous Urine Present (A) NEG /LPF [facility] Specimen Anatomical Collection Method Collection Time Receive d Time (Source) Location / / Volume Laterality Urine specimen URINE SPECIMEN 01/18/2016 6:34 AM 01/17 6:37 (specimen) OBTAINED BY CLEAN CDT AM CDT CATCH PROCEDURE / Unknown Saranya Hicks MD LAB - URINE ORDERABLES Performing Organization Address City/State/ZIP Code Phon e Number [address] [place] [address] [place], [place] [address] [facility] [address] [place], [place] [address] [facility] [phone] documented in this encounter Visit Diagnoses Not [...] [place] 01/18/16 at 0638, For 1 dose opium-belladonna (B&O SUPPRETTES) Given 01/18/2016 3:28 PM CDT 1 suppository 30-16.2 MG suppository PRN, Starting on [place] 01/18/16 at 1528, Intra-procedure sterile water irrigation (bag) Given 01/18/2016 3:29 PM CDT 2,500 mLs PRN, Intra-procedure, Starting on [place] 01/18/16 at 1529, Until [place] 01/18/16 at 1706 documented in this encounter Active and Recently Administered Medications Times are shown in CDT. Scheduled Medication Order 01/16/2016 01/17/2016 01/18/2016 0.9% sodium chloride BOLUS (COMPLETED) 0703 (New Bag - Provider: Josee Ricardo RN)0915 (Stopped - Provider: Dalila Melo) Intravenous, 1,000 mL, ONCE, [place] 01/18/16 at 0638, For 1 dose ciprofloxacin (CIPRO) intermittent infusion 400 mg (COMPLETED) 1333 (Auto Hold - Provider: Orders Generic Provider - Reason: Transfer to a procedural area)1458 (Given - Provider: Pauline Leahy APRN CRNA) 400 mg, Intravenous, CAD DESIGN ENGINEER [facility] [place] 01/18/16 at 0859, For 1 dose, Indications: Surgical Prophylaxis ketorolac (TORADOL) injection 30 mg (COMPLETED) 0704 (Given - Provider: Josee Ricardo, SHAREE) 30 mg, Intravenous, ONCE, [place] 01/18/16 at 0638, For 1 dose Continuous Medication Order 01/16/2016 01/17/2016 01/18/2016 0.9% sodium chloride + KCl 20 mEq/L infusion (CANCELED) 1004 (New Bag - Provider: Ernestine Penny, RN)1331 (ED Infusing on Admission/transfer - Provider: Ernestine Penny, RN - Comment: to or) at 100 mL/hr, Intravenous, CONTINUOUS, S tarting [place] 01/18/16 at 0935, Until [place] 01/18/16 at 1942 PRN Medication Order 01/16/2016 01/17/2016 01/18/2016 fentaNYL Citrate (PF) (SUBLIMAZE) injection 25-50 mcg (CANCELED) 1555 (Given - Provider: Hannah Shaffer, SHAREE)1628 (Given - Provider: Hannah Shaffer RN) 25-50 [...] documented as of this encounter Care Teams Dental Sales Representative Relationship Specialty Start Date End Date Esmer Roland MD PCP - General Family Practice 09/21/10 01/29/17 documented as of this encounter
--- OUTSIDE RECORDS SUMMARY | 2022-04-11 21:43 | XMS_ITS | Encounter Summary ---
:1975 Author Organization [place] Address [address] [facility] [place] [address] Care Team Providers Name Role Phone Esmer Roland MD Primary Care Provider + [phone] Yony Garcia PA-C Unavailable + [phone] Yony Garcia PA-C Unavailable + [phone] Reason for Visit Reason Comments Consult lower back pain and bloating since last fall--pt have Novasure--still gets period and has sharp pain Encounter Details Date Type Department Care Team Description 12/24/[address] [facility] ÁlvaroJeimy ashley Pelvic p ain in female (Primary Dx); [facility] DO Verito S/P endometrial ablation; [place] [address] [address] S Pap smear for cervical cancer screening [address] [place], [place] [address] [address] [place], [place] [phone] (Work) [phone] Social History Tobacco Use Types Packs/Day Years [...] Sign Reading Time Taken Comments Blood Pressure 116/70 12/24/2016 10:17 AM CDT Pulse - - Temperature - - Respiratory Rate - - Oxygen Saturation - - Inhaled Oxygen Concentration - - Weight 105.9 kg (233 lb 6.4 oz) 12/24/2016 10:17 AM CDT Height 167.6 cm (5' 6) 12/24/2016 10:17 AM CDT Body Mass Index 37.67 12/24/2016 10:17 AM CDT documented in this encounter Patient Instructions Patient InstructionsJeimy Christensen DO - 12/24/2016 10:15 AM CDT Make p.t. Appointment Consider having a urinary study with Dr. Fabiana Christensen DO Obstetrics and Gynecology [facility] documented in this encounter Progress Notes Jeimy Christensen DO - 12/24/2016 10:15 AM CDT SUBJECTIVE: Dariana Osman is an 41 year old woman who presents for gynecology consult for ongoing lower abdominal pain. Patient's last menstrual period was 11/17/2016.Periods are regular q 28-30 days. Dysmenorrhea:severe, occurring throughout cycle and radiating to lower back. Cyclic symptoms include bloating. No intermenstrual bleeding, spotting, or discharge. Endorses urinary incontinence that increases during menses. Denies dyspareunia. Current contraception: tubal ligation History of abnormal Pap smear: Yes BRIGID 2 with colp and neg LEEP Family history of uterine or ovarian cancer: No History of abnormal mammogram: No Family history of breast cancer: Grandmother Concerns today: Patient is s/p laparoscopic bilateral salpingectomy, hysteroscopy with novasure ablation on 09/26/15. Today she notes that three months after procedure her cycle returned with associatedbloating and severe sharp abdominal pain that radiates to her lower back. She reports that it has been going on for 8 months and is now affecting her home and work life. Reports no improvement with ibuprofen. Patient states she desires a hysterectomy. Past Medical History: Diagnosis Date ??? Abnormal Pap smear, can't excl hi gd sq intraepithelial lesion (ASC-H) 11/23/12 BRIGID 2 on colp ??? Anxiety state, unspecified ??? Calculus of kidney ??? Depressive disorder ??? Depressive disorder, not elsewhere classified Family History Problem Relation Age of Onset ??? HEART DISEASE Mother ??? Hypertension Mother ??? DIABETES Father ??? Hypertension Father ??? Thyroid Disease Father ??? Sjogren's Father ??? Scleroderma Father ??? Neurologic Disorder Father Neuropathy ??? Breast Cancer Paternal Grandmother ??? Family History Negative Other ??? Thyroid Disease Brother Past Surgical History: Procedure Laterality Date ??? [...] on right ankle Current Outpatient Prescriptions Medication ??? DULoxetine (CYMBALTA) 60 MG EC capsule ??? DULoxetine (CYMBALTA) 30 MG EC capsule No current facility-administered medications for this visit. No Known Allergies Social History Substance Use Topics ??? Smoking status: Former Smoker ??? Smokeless tobacco: Never Used Comment: Very Occasional ??? Alcohol use 0.0 oz/week Comment: 1 TIME A a week(1 glass of wine) 1 qo weekend Review Of Systems Ears/Nose/Throat: negative Respiratory: No shortness of breath, dyspnea on exertion, cough, or hemoptysis Cardiovascular: negative Gastrointestinal: positive for abdominal pain Genitourinary: negative This document serves as a record of the services and decisions personally performed and made by Jeimy Christensen DO. It was created on his/her behalf by Erika Ruelas, a trained medical billing clerk. The creation of this document is based the provider's statements to the medical billing clerk. Rashibelen RosasErikaalyssa Ruelas 10:15 AM, December 24, 2016 OBJECTIVE: BP 116/70 Ht 1.676 m (5' 6) Wt 105.9 kg (233 lb 6.4 oz) LMP 11/17/2016 BMI 37.67 kg/m2 General appearance: healthy, alert and no distress Lungs: negative, Percussion normal. Good diaphragmatic excursion. Lungs clear Heart: negative, PMI normal. No lifts, heaves, or thrills. RRR. No murmurs, clicks gallops or rub Abdomen: Abdomen soft, non-tender. BS normal. No masses, organomegaly Pelvic Exam with PAP: External genitalia normal and vagina normal rugatted not atrophic Grade 1 cystocele, no rectocele Examination of urethra normal no masses, tenderness, scarring bladder, no masses or tenderness, mild relaxation noted Cervix no lesions or discharge, Cervical motion tenderness with pap smear. Bimanual exam with Uterus 6 weeks size, mid position, mobile,non-tenderness, no descent Adnexa/parametria Normal, no masses ASSESSMENT: Dariana Osman is an 41 year old woman who presents for gynecology consult for ongoing lower abdominal pain. Concerns today PLAN: Dx: 1) Post ablation pain syndrome: Discussed possible treatment options such as continuous contraceptive pills for cycle control vs. Surgical intervention such as hysterectomy and patient desires robotic assisted laparoscopic total hysterectomy with cystoscopy, she is considering sling procedure, but will start with physical therapy . Pelvic US ordered Pap smear pending 2) Urinary incontinence: referral to PT given, Discussed sling procedure and patient to follow up with Dr. Jung, Advised patient to keep track of episodes of leaking 3) Return for surgery The information in this document, created by the medical billing clerk for me, accurately reflects the services I personally performed and the decisions made by me. I have reviewed and approved this document for accuracy prior to leaving the patient care area. Jeimy Christensen DO 10:12 AM, 12/24/16 Dr. Jeimy Christensen DO Obstetrics and Gynecology [facility] [place] documented in this encounter Nursing Notes Solange Diego CMA - 12/24/2016 10:15 AM CDT Chief Complaint Patient presents with ??? Consult lower back pain and bloating since last fall--pt have Novasure--still gets period and has sharp pain Initial BP 116/70 Ht 5' 6 (1.676 m) Wt 233 lb 6.4 oz (105.9 kg) LMP 11/17/2016 BMI 37.67 kg/m2 Estimated body mass index is 37.67 kg/(m^2) as calculated from the following: Height as of this encounter: 5' 6 (1.676 m). Weight as of this encounter: 233 lb 6.4 oz (105.9 kg). Medication Reconciliation: complete Solange Diego CMA documented in this encounter Plan of Treatment Pending Results Name Type Priority Associated Diagnoses Date/Ti me Pap imaged thin layer Lab Routine Pap smear for cervi ronak 12/24/2016 10:50 AM screen with HPV - cancer screening CDT recommended age 30 - 65 years (select HPV order below) documented as of this encounter Procedures Procedure Name Priority Date/Time Associated Diagnosis Comme nts PAP IMAGED THIN Routine 12/24/2016 10:50 AM Pap smear for LAYER SCREEN CDT cervical cancer screening A PAP THIN LAYER Routine 12/24/2016 10:50 AM Resu lts for this SCREEN CDT procedure are i n the results section. HPV HIGH RISK TYPES Routine 12/24/2016 10:45 AM Pap smear for Results for this DNA CERVICAL CDT cervical cancer procedure ar e in screening the results section. documented in this encounter Results (ABNORMAL) A pap thin layer screen (12/24/2016 10:50 AM CDT) Component Value Ref Test Analysis Performed At [facility] Range Method Time Signature PAP ASC-US (A) COPATH Copath Report COPATH Patient Name: DARIANA OSMAN MR#: [id number] Specimen #: [id number] Collected: 12/24/2016 Received: 12/25/2016 Reported: 12/26/2016 14:50 Ordering Phy(s): JEIMY CHRISTENSEN For improved result formatting, select 'View Enhanced Report Format' under Linked Documents section. SPECIMEN/STAIN PROCESS: Pap thin layer prep screening (Surepath) ? Pap-Cyto x 1, HPV ordered x 1 SOURCE: Cervical, endocervical ---- Pap thin layer prep screening (Surepath) SPECIMEN ADEQUACY: Satisfactory for evaluation. ??Specimen was unable to be valerie ged on the Focal[employer] Slide Mastic Floor Layer. -Transformation zone component present. CYTOLOGIC INTERPRETATION: Epithelial cell abnormality: ??squamous cell: ??atypical squ amous cells-of undetermined significance (ASC-US). Electronically signed out by: Blake Scruggs M.D. Processed and screened at [facility] CLINICAL HISTORY: LMP: 11/17/2016 Ablation, Previous normal pap Date of Last Pap: 07/08/2014, Papanicolaou Test Limitations: ??Cervical cytology is a scre ening test with limited sensitivity; regular screening is critical for cancer prevention; Pap tests are primarily effective for the diagnosis/prevention of squamous cell carcinoma, not adenoca rcinomas or other cancers. TESTING LAB LOCATION: [address] ??[address] COLLECTION SITE: Client: ??[facility] Location: RIOB (R) Specimen Anatomical Collection Method Collection Time Receive d Time (Source) Location / / Volume Laterality 12/24/2016 10:50 12/25/2016 9:34 AM CDT AM CDT Jeimy Christensen DO LAB - OPTIME CLINICAL SPECIM EN Performing Organization Address City/State/ZIP Code Phon e Number COPATH HPV High Risk Types DNA Cervical (12/24/2016 10:45 AM CDT) Component Value Ref Test Analysis Performed At [facility] Range Method Time Signature HPV 16 DNA Negative NEG [facility] HPV 18 DNA Negative NEG [facility] Other HR HPV Negative NEG [facility] Final This patient's sample is negative for HPV DNA. [facility]ITY Diagnosis (Note) OF [place] METHODOLOGY: ??The German cheng 4800 system uses automated extraction, MEDICAL simultaneous amplification of HPV (L1 region) and beta-globi n, [facility] followed by ??real time detection of fluorescent labeled H PV and beta CAMPUS globin using specific oligonucleotide probes . The test spec ifically identifies types HPV 16 DNA and HPV 18 DNA while concurrentl y detecting the rest of the high risk types (31, 33, 35, 39, 4 5, 51, 52, 56, 58, 59, 66 or 68). COMMENTS: ??This test is not intended for use as a screening device for women under age 30 with normal cervical cytology. ??Resu lts should be correlated with cytologic and histologic findings. Close clinical followup is recommended. This test was developed and its performance characteristics determined by the [facility]. It has not been cleared or approved by the FDA. The laboratory is regulated under CLIA as qualified to perform high-complexity testing. This test is used for clinical purp oses. It should not be regarded as investigational or for research. Specimen Cervical Cells [place] Description [id number] OF [facility] Specimen Anatomical Collection Method Collection Time Receive d Time (Source) Location / / Volume Laterality Cervical Cells 12/24/2016 10:45 7 AM CDT 12:10 PM CDT Jeimy Christensen DO LAB - BLOOD ORDERABLES Performing Organization Address City/State/ZIP Code Phon e Number [facility] [address] [place], [place] [id number] [place] [address] documented in this encounter Visit Diagnoses Diagnosis Pelvic pain in female - Primary Unspecified symptom associated with fema le genital organs S/P endometrial ablation Other postprocedural status Pap smear for cervical cancer screening Screening for malignant neoplasm of the cervix documented in this encounter Additional Health Concerns Assessment Noted Time PHQ-9 Depression Total Score: 2 11/02/2016 7:17 AM CDT documented as of this encounter Care Teams Dried Yeast Supervisor Relationship Specialty Start Date End Date Esmer Roland MD PCP - General Family Practice 09/21/10 01/29/17 Yony Garcia PA-C PCP - Assigned PCP 09/01/16 08/11/18 [id number] [place] [place] [id number] Yony Garcia PA-C Assigned PCP 09/01/16 02/05/20 [id number] SONJA KRAUSE [id number] documented as of this encounter
--- OUTSIDE RECORDS SUMMARY | 2022-04-11 21:43 | XMS_ITS | Encounter Summary ---
:1975 Author Organization [place] Address [address] [facility] [place] [address] Care Team Providers Name Role Phone Yony Garcia PA-C Primary Care Provider [phone] Yony Garcia PA-C Unavailable [phone] Yony Garcia PA-C Unavailable [phone] Reason for Visit Auth/Cert Specialty Diagnoses / Procedures Referred By Contact Refer red To Contact Surgery Diagnoses post ablation pain syndrome Rh Periop Services Procedures DAVINCI HYSTERECTOMY TOTAL [address] [place], [place] [address] Phone: Fax: Referral ID Status Reason Start Date Expiration Date Visits Requ ested Visits Authorized [id number] 1 1 Encounter Details Date Type Department Care Team Description 02/05/2017 Anesthesia Event M [facility] Freedom Us MD PeriOp Services [facility] [address] [place] [address] [place], [place] [address] (Wo rk) Anesthesia Record Procedure Summary Procedure Name Responsible Anesthesia Start Anesthesia Stop Anesthesiologist Time Time DAVINCI HYSTERECTOMY Freedom Us MD 02/05/17 0751 02/05/17 1004 TOTAL, cystoscopy, Endometriosis Resection (Abdomen) Events Date Time Event Comment 02/05/2017 0725 0751 An Start 0753 An Start Data 0756 An Induction 0758 AN START SEVO 0801 MD Present 0801 An Intubation 0821 AN INCISION 0826 MD Present 0838 Quick Note Robot docked. 0919 MD Present 0945 AN END SEVO 0955 an stop data 1002 Present 1004 An Stop Electronically s igned by Clare Das on February 05, 2017 10:04 AM Name Total midazolam 1mg/mL 2 mg fentaNYL (SUBLIMAZE) injection 150 mcg propofol (DIPRIVAN) injection 10 mg/mL vial 200 mg rocuronium 10mg/mL 70 mg glycopyrrolate 0.2mg/mL 0.6 mg neostigmine 1mg/mL 5 mg dexamethasone 4mg/mL 4 mg ondansetron 2mg/mL 4 mg HYDROmorphone 1 mg ceFAZolin sodium-dextrose (ANCEF) infusion 2 g 2 g lidocaine 1 % 1 mL 50 mg clindamycin 900 mg/50mL 900 mg ketamine injection 10 mg/mL 30 mg propofol infusion (mcg/kg/min) 500.64 mg LR PIV #1 1,700 mL Agents Name NO HELIOX O2 N2O Air Exp Sevoflurane Exp Isoflurane Exp Desflurane Exp N2O O2 Delivery Device Ins Sevoflurane Ins Isoflurane Ins Desflurane O2 Auxiliary Blood No blood administrations on file. Lines, Drains, and Airways Type Details Placement Removal Peripheral IV 20 G; Left; Hand 02/05/17 0725 by 02/05/17 1427 by Agnieszka Pretty RN Incision/Surgical Site 02/05/17; 0825; Midline, 02/05/17 0825 by 07/24/18 191 by Bilateral; Abdomen; Akua Jones RN [place], Erica, laparoscopic port sites RN x 4; 07/24/18; 1912 Urethral Catheter 02/05/17; 0842; No; 02/05/17 0842 by 02/05/17 0930 by /GI/COPY HOLDER Pelvic Akua Jones RN [place], Shei la organizational effectiveness director; 16 fr Incision/Surgical Site 02/05/17; 0953; Abdomen; 02/05/17 0953 by 07/24/18 1914 by 07/24/18; 1913 Akua Jones RN [place], E r[place], RN RETIRED ETT 02/05/17; 0955; Mask 02/05/17 0955 by 02/05/17 0 958 by Ventilation: Easy; Ease Clare Ochoa Ma rinello, Abby of Intubation: Easy; OWEN Sheppard APRN CRNA Airway Size: 7; Cuffed; Oral; Blade Type: Dat; Blade Size: 3; Place by: Deysi Das; Insertion Attempts: 1; Secured at (cm)to lip: 22 cm; Breath Sounds: Equal, clear and bilateral; End Tidal CO2: Present; Dentition: Intact, Unchanged; Grade View of Cords: 1 Retired Non-Surgical 02/05/17; 1011; 02/05/17 1011 by 02/05/17 1 022 by Airway nasopharyngeal; right AntlAwilda RN Antl, Debby Rodgers RN nostril; SUPERVISOR SHUTTLE PREPARATION; End of therapy documented in this encounter Social History Tobacco [...] encounter OR Notes Anesthesia Postprocedure Evaluation - Freedom Us MD - 02/05/2017 10:23 AM CDT Patient: Dariana Osman Procedure(s): DAVINCI HYSTERECTOMY TOTAL, cystoscopy - Wound Class: II-Clean Contaminated Diagnosis:post ablation pain syndrome Diagnosis Additional Information: Pre-procedure dx: 41 y/o female with post ablation syndrome, pelvic pain Post-procedure dx: 41 y/o female with post ablation syndrome, pelvic pain, lesions suspicious for endometriosis SURGEON: Jeimy Christensen DO. Fringe Weaver: Allyson Holloway SA, PROCEDURES: 1. Robotic-assisted total laparoscopic hysterectomy. 2. Endometriosis resection 3. Cystoscopy. 4. Adhesion prevention with Seprafilm/Slurry. Anesthesia Type: General, ETT Note: Anesthesia Post Evaluation Patient location during evaluation: PACU Patient participation: Able to fully participate in evaluation Level of consciousness: awake Pain management: adequate Airway patency: patent Cardiovascular status: acceptable Respiratory status: acceptable Hydration status: acceptable PONV: controlled Anesthetic complications: None Last vitals: Vitals: 02/05/17 1010 02/05/17 1015 02/05/17 1016 BP: (!) 154/100 Pulse: Resp: 16 17 18 Temp: SpO2: 100% 100% Electronically Signed By: Freedom Us MD February 05, 2017 10:23 AM Anesthesia Preprocedure Evaluation - Freedom Us MD - 02/05/2017 7:24 AM CDT Anesthesia Evaluation . Pt has had prior anesthetic. Type: General No history of anesthetic complications ROS/MED HX ENT/Pulmonary: Neurologic: (+)migraines, Cardiovascular: METS/Exercise Tolerance: Hematologic: Musculoskeletal: GI/Hepatic: Renal/Genitourinary: Endo: (+) Obesity, . Psychiatric: (+) psychiatric history anxiety and depression Infectious Disease: Malignancy: Other: Physical Exam Airway Mallampati: II TM distance: >3 FB Neck ROM: full Dental Cardiovascular Rhythm and rate: regular and normal Pulmonary breath sounds clear to auscultation Anesthesia Plan History & Physical Review History and physical reviewed and following examination; no interval change. ASA Status: 1 . NPO Status: > 8 hours Plan for General and ETT with Intravenous and Propofol induction. Maintenance will be Balanced. PONV prophylaxis: Ondansetron (or other 5HT-3) and Dexamethasone or Solumedrol Postoperative Care Postoperative pain management: IV analgesics, Oral pain medications and Multi- modal analgesia. Consents Anesthetic plan, risks, benefits and alternatives discussed with: Patient.. . documented in this encounter Miscellaneous Notes Anesthesia Care Transfer Note - Clare Das APRN CRNA - 02/05/2017 10:03 AM CDT Patient: Dariana Osman Procedure(s): DAVINCI HYSTERECTOMY TOTAL, cystoscopy - Wound Class: II-Clean Contaminated Diagnosis: post ablation pain syndrome Diagnosis Additional Information: No value filed. Anesthesia Type: General, ETT Note: Airway :ETT, T-piece, Oral Airway and Nasopharyngeal Airway Patient transferred to:PACU Comments: VSS, exchanging through ETT and T piece, report to RN, ETT removed shortly after. Airway patent. Vitals: (Last set prior to Anesthesia Care Transfer) SUPERVISOR SHUTTLE PREPARATION VITALS 02/05/2017 0925 - 02/05/2017 1003 02/05/2017 NIBP: (!) 154/98 NIBP Mean: 119 Electronically Signed By: Clare Das APRN CRNA February 05, 2017 10:03 AM documented in this encounter Plan of Treatment Not on filedocumented as of this encounter Visit Diagnoses Not on filedocumented in this encounter Administered Medications Inactive Administered Medications - up to 3 most recent administrations Medication Order MAR Action Action Date Dose Rate Site ceFAZolin sodium-dextrose (ANCEF) Given 02/05/2017 8:02 AM CDT 2 g infusion 2 g Routine, 2 g, Intravenous, PRE-OP/PRE-PROCEDURE, Starting on Fri02/05/17 at 0633, For 1 dose, Give first dose within 1 hour PRIOR to incision. If patient weight is greater than or equal to 120 kg increase dose to 3 g., Indications: Perioperative Pharmacoprophylaxis, Pre-procedure clindamycin (CLEOCIN) infusion Given 02/05/2017 8:20 AM CDT 900 mg Routine, PRN, Starting on Fri02/05/17 at 0820, Anesthesia Intra-op dexamethasone (DECADRON) injection Given 02/05/2017 7:56 AM CDT 4 mg PRN, Administer over 1-4 Minutes, Starting on Fri02/05/17 at 0756, Anesthesia Intra-op fentaNYL (PF) (SUBLIMAZE) injection Given 02/05/2017 8:36 AM CDT 50 mcg PRN, moderate to severe pain, Starting on Fri02/05/17 at 0756, Anesthesia Intra-op Given 02/05/2017 7:56 AM CDT 100 mcg glycopyrrolate (ROBINUL) injection Given 02/05/2017 9:46 AM CDT 0.6 mg PRN, Starting on Fri02/05/17 at 0946, Anesthesia Intra-op HYDROmorphone (DILAUDID) injection Given 02/05/2017 7:56 AM CDT 1 mg PRN, moderate to severe pain, Starting on Fri02/05/17 at 0756, Anesthesia Intra-op ketamine (KETALAR) injection Given 02/05/2017 8:12 AM CDT 30 mg PRN, Administer over 2-5 Minutes, Starting on Fri02/05/17 at 0812, Anesthesia Intra-op lactated ringers infusion New Bag 02/05/2017 8:42 AM CDT Intravenous, CONTINUOUS PRN, Anesthesia Intra-op, Starting on Fri02/05/17 at 0716, Until Fri02/05/17 at 1004 New Bag 02/05/2017 7:16 AM CDT lidocaine 1 % 1 mL Given 02/05/2017 7:56 AM CDT 50 mg 1 mL, Other, EVERY 1 HOUR PRN, mild pain with VAD insertion or accessing implanted port, Starting on Fri02/05/17 at 0633, Do NOT give if patient has a history of allergy to any local anesthetic or any dina product. MAX dose 1 mL subcutaneous OR intradermal in divided doses., Pre-procedure midazolam (VERSED) injection Given 02/05/2017 7:51 AM CDT 2 mg PRN, anxiety, Starting on Fri02/05/17 at 0751, Anesthesia Intra-op neostigmine (PROSTIGMINE) injection Given 02/05/2017 9:46 AM CDT 5 mg Intravenous, PRN, Starting on Fri02/05/17 at 0946, Anesthesia Intra-op ondansetron (ZOFRAN) injection Given 02/05/2017 9:38 AM CDT 4 mg PRN, nausea, vomiting, Administer over 2-5 Minutes, Starting on Fri02/05/17 at 0938, Anesthesia Intra-op propofol (DIPRIVAN) infusion New Bag 02/05/2017 9:09 AM CDT Intravenous, CONTINUOUS PRN, Starting on Fri02/05/17 at 0817, Anesthesia Intra-op Rate/Dose Change 02/05/2017 8:57 AM CDT 50 mcg/kg/min 31.3 mL/hr New Bag 02/05/2017 8:17 AM CDT 80 mcg/kg/min 50.1 mL/hr propofol (DIPRIVAN) injection 10 mg/mL v ial Given 02/05/2017 7:56 AM CDT 200 mg PRN, Starting on Fri02/05/17 at 0756, Anesthesia Intra-op rocuronium (ZEMURON) injection Given 02/05/2017 9:23 AM CDT 10 mg PRN, Starting on Fri02/05/17 at 0756, Anesthesia Intra-op Given 02/05/2017 8:57 AM CDT 10 mg Given 02/05/2017 8:19 AM CDT 15 mg documented in this encounter Additional Health Concerns Assessment Noted Time PHQ-9 Depression Total Score: 2 11/02/2016 7:17 AM CDT documented as of this encounter Care Teams Ore Trimmer Relationship Specialty Start Date End Date Yony Garcia, PCP - General Physician Fringe Weaver - 01/30/17 07/23/18 [facility] Yony Garcia, PCP - Assigned PCP 09/01/16 08/11/18 [place] [id number] SONJA KRAUSE [id number] Yony Garcia, Assigned PCP 09/01/16 [place] [id number] SONJA KRAUSE [id number] documented as of this encounter
--- OUTSIDE RECORDS SUMMARY | 2022-04-11 21:43 | XMS_ITS | Encounter Summary ---
:1975 Author Organization [place] Address [address] [facility] [place] [address] Care Team Providers Name Role Phone Esmer Roland MD Primary Care Provider [phone] Encounter Details Date Type Department Care Team Description 01/19/2016 Telephone [facility] Kenneth Couch MD [place] [address] [address] [address] [place] [address] [phone] Social History Tobacco Use Types Packs/Day Years [...] Notes Telephone Encounter - Andreea Rodriguez - 01/19/2016 8:14 AM CDT Patient called and just wanted you to know that you were right and she had 4 kidney stones removed! Andreea Rodriguez/Finished Goods Planner documented in this encounter Plan of Treatment Not on filedocumented as of this encounter Visit Diagnoses Not on filedocumented in this encounter Additional Health Concerns Assessment Noted Time PHQ-9 Depression Total Score: 4 09/02/2015 7:59 AM CDT documented as of this encounter Care Teams E Commerce Analyst Relationship Specialty Start Date End Date Esmer Roland MD PCP - General Family Practice 09/21/10 01/29/17 documented as of this encounter
--- OUTSIDE RECORDS SUMMARY | 2022-04-11 21:43 | XMS_ITS | Encounter Summary ---
:1975 Author Organization [place] Address [address] [facility] [place] [address] Care Team Providers Name Role Phone Yony Garcia PA-C Primary Care Provider [phone] Yony Garcia PA-C Unavailable [phone] Yony Garcia PA-C Unavailable [phone] Reason for Visit Auth/Cert Specialty Diagnoses / Procedures Referred By Contact Refer red To Contact Surgery Diagnoses post ablation pain syndrome Rh Periop Services Procedures DAVINCI HYSTERECTOMY TOTAL [address] [place], [place] [address] Phone: Fax: Referral ID Status Reason Start Date Expiration Date Visits Requ ested Visits Authorized [id number] 1 1 Encounter Details Date Type Department Care Team Description 02/05/2017 Surgery [facility] Jeimy Christensen DAVINCYobani HYSTERECTOMY [place] [facility] cindy Sellres, TOTAL, cystoscopy, [address] [place] [address] [id number] Surgery Details Date/Time Status Location OR Service Patient Case Case Traum a Class Class Type Case? 02/05/17 7:30 Posted RH OR OR 15 daVINCI Same Day AM Gynecology Surgery Panel 1 Procedure LRB Anes Op Region Wound Class Commen ts DAVINCI HYSTERECTOMY N/A General Abdomen II-Clean LISA NCI HYSTERECTOMY TOTAL, cystoscopy, Contaminated TOTA L, cystoscopy, Endometriosis Endometrios is Resection Resection Surgeon Surgeon Role Service Panel Jeimy Christensen DO Primary daVINCI Gynecology 1 Special Needs Ht- 5'6 Wt- 233# Per H&P BMI=37.6 documented in this encounter Social History Tobacco [...] Sign Reading Time Taken Comments Blood Pressure 134/83 02/05/2017 6:28 AM CDT Pulse 82 02/05/2017 6:28 AM CDT Temperature 37 ??C (98.6 ??F) 02/05/2017 6:28 AM CDT Respiratory Rate 20 02/05/2017 6:28 AM CDT Oxygen Saturation 99% 02/05/2017 6:28 AM CDT Inhaled Oxygen Concentration - - [...] Dr. Jeimy Christensen DO Obstetrics and Gynecology [facility] documented in this encounter Discharge Instructions Discharge Andreia Dave RN - 02/05/2017 1:16 PM CDT Follow up in 1-2 weeks Call [phone] or [phone] for appointment Call and ask to be seen or talk to a doctor for the following: (You can go to the ob triage button On answering service line) . Increased bleeding, fever, general unwell feeling or increased pain. Dr. Jeimy Christensen, DO FIELD SEISMOLOGIST [facility] GENERAL ANESTHESIA OR SEDATION ADULT DISCHARGE INSTRUCTIONS [...] Garcia PA-C - 01/30/2017 8:34 AM CDT [facility], [address] [facility] [id number] Dept: [phone] PRE-OP EVALUATION: Today's date: 01/30/2017 Dariana Osman (: 1975) presents for pre-operative evaluation assessment as requested by Dr. Jeimy Christensen. 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 Proposed procedure: davinci hysterectomy total Date [...] 11/09/10 NIL pap (ajk) 11/23/12 ASC-H. 12/25/12 [place]= BRIGID 2. Referred to Ob~Glove Maker, Dr. Christensen 02/18/13 LEEP= Negative, R/P pap [...] cardiovascular risks for perioperative complications such as (GA, PE, VFib and 3?? AV Block): No [...] evaluation report is provided to requesting physician. [place] Preop Guidelines documented in this encounter Nursing [...] suspicious for endometriosis SURGEON: Jeimy Christensen DO. Draw In Hand: Allyson Holloway SA PROCEDURES: 1. Robotic-assisted total [...] clindamycin preoperatively. A Brock catheter was placed. Leopold speculum was placed in the patient's vaginal vault. Anterior lip of cervix was grasped with a single-tooth tenaculum, and a nwytmd-xd-bamuu suture of 0 monocryl is placed on the anterior lip of the cervix, and then the x-largeVCare manipulator was placed. The bivalve speculum was removed. Attention was turned to the patient's abdomen, where the [place] clamps were clamped on umbilicus and a [...] then the ports were placed. An air-seal social media assistant port was placed in the right medial [...] patient tolerated the procedure well. Dr. Jeimy Christensen, FIELD SEISMOLOGIST [facility] Brief Op Note - Jeimy Christensen DO - 02/05/2017 9:50 AM CDT [facility] Brief Operative Note Pre-operative diagnosis: post [...] Christensen DO - 02/05/2017 9:48 AM CDT [facility] Brief Operative Note Pre-operative diagnosis: post [...] Component Value Ref Test Analysis Performed At [facility] gist Range Method Time Signature Copath Report Patient Name: DARIANA OSMAN MR#: [id number] Specimen #: [id number] Collected: 02/05/2017 Received: 02/05/2017 Reported: 02/06/2017 11:14 Ordering Phy(s): JEIMY CAMILA MARLON For improved result formatting, select 'View Enhanced [...] wispy adhesions. ??The ectocervical muc isaac is pink-sanchez and smooth. The triangular partially stenotic is [...] B. Microscopic evaluation performed. CPT Codes: A: 49313-VP0 B: 80524-JR7 TESTING LAB LOCATION: [address] ??[address] COLLECTION SITE: Client: [facility] Location: RHOR (R) Specimen (Source) Anatomical Collection Method Collection Time Re ceived Time Location / / Volume Laterality Tissue specimen UTERUS AND CERVIX, 02/05/2017 8:48 AM (specimen) CS / Unknown CDT Tissue specimen PELVIC WALL 02/05/2017 9:19 AM (specimen) STRUCTURE / CDT Unknown Jeimy Christensen DO LAB - BEAKER AP Performing Organization Address City/[facility]/ZIP [facility] [place] Number [place] HCG qualitative urine (02/05/2017 6:15 AM CDT) P athologist Signature HCG Qual Urine Negative NEG^Negati 02/05/2017 [facility] 6:34 AM CDT [facility] Comment: This test is for screening purposes. ??R esults should be interpreted along with the clinical picture. ??Confirmation te sting is available if warranted by ordering [id number], HCG Quantitative Pregna ncy. Specimen Anatomical Collection Method Collection Time Receive d Time (Source) Location / / Volume Laterality Urine specimen URINE SPECIMEN / 02/05/2017 6:15 AM 6:24 (specimen) Unknown CDT AM CDT Claudy Villalobos MD LAB - URINE ORDERABLES Performing Organization Address City/[facility]/ZIP [facility] Phon [place] Number M [address] [place] [address] documented in this encounter Visit Diagnoses Not [...] mg/kg/day not to exceed 4 grams/day., Pre-procedure bupivacaine (MARCAINE) Given 02/05/2017 9:30 AM 30 mLs Operative Site/Surgical 0.25 % injection CDT Site PRN, Starting on Fri02/05/17 at 0930, Intra-procedure bupivacaine 0.5 % - Given 02/05/2017 9:00 AM 10 mLs Operative Site/Surgical EPINEPHrine 1:200,000 CDT Sit e injection PRN, Starting on Fri02/05/17 at 0900, Intra-procedure fentaNYL (PF) (SUBLIMAZE) injection 25-50 Given 02/05/2017 [...] 02/05/2017 acetaminophen (TYLENOL) tablet 975 mg (COMPLETED) 0649 (Given - Provider: Awilda Shook RN) 975 mg, Oral, ONCE, Fri02/05/17 at 0645, For 1 dose, Maximum acetaminophen dose from all sources = 75 mg/kg/day not to exceed 4 grams/day., Pre-procedure ceFAZolin sodium-dextrose (ANCEF) infusion 2 g (COMPLETED) 801 (Given - Provider: Clare Das, OWEN BLENDING TECHNICIAN) 2 g, Intravenous, PRE-OP/PRE-PROCEDURE, Starting Fri02/05/17 at 0633, For 1 dose, Give first dose within 1 hour PRIOR to incision. If patient weight is greater than or equal to 120 kg increase dose to 3 g., Indications: Surgical Prophylaxis, Pre-procedure ketorolac (TORADOL) injection 30 mg (COMPLETED) 657 (Given - Provider: Awilda Shook RN) 30 mg, Intravenous, ONCE, Fri02/05/17 at 0645, For 1 dose, For pain. Give 1 hour prior to procedure., Pre-procedure phenazopyridine (PYRIDIUM) tablet 200 mg (COMPLETED) 648 (Given - Provider: Awilda Shook RN) 200 [...] injection (CANCELED) 0930 (Given - Provider: Jeimy hCristensen DO) PRN, Starting Fri02/05/17 at 0930, Intra-procedure bupivacaine 0.5 % - EPINEPHrine 1:200,000 injection (CANCELED) 0900 (Given - Provider: Jeimy Christensen DO) PRN, Starting Fri02/05/17 at 0900, Intra-procedure fentaNYL (PF) (SUBLIMAZE) injection 25-50 mcg (CANCELED) 1016 (Given - Provider: Awilda Shook RN)1023 (Given - Provider: Awilda Shook, SHAREE)1036 (Given - Provider: Agnieszka Pertty RN)1054 (Given - Provider: Agnieszka Pretty RN)1140 (Given - Provider: Agnieszka Pretty RN) [...] 0.3-0.5 mg 1030 (Given - Provider: Agnieszka Pretty RN)1043 (Given - Provider: Agnieszka Pretty RN)1120 (Given - Provider: Agnieszka Pretty RN) 0.3-0.5 mg, Intravenous, EVERY 10 MIN AR N, Starting Fri02/05/17 at 1009, Until Fri02/05/17 [...] 5 mg 1201 (Given - Provider: Agnieszka Pretty, RN) 5 mg, Oral, EVERY 4 HOURS [...] documented as of this encounter Care Teams Special Librarian Relationship Specialty Start Date End Date Yony Garcia, PCP - General Physician Draw In Hand - 01/30/17 07/23/18 [facility] Yony Garcia, PCP - Assigned PCP 09/01/16 08/11/18 [facility] [id number] [address] [id number] Yony Garcia, Assigned PCP 09/01/16 [facility] [address] [address]USE [id number] documented as of this encounter
[2022-04-11 21:44] LABS: Creatinine* 0.8 mg/dL (0.5-1.5); Est. Creatinine Clearance* 84.01; Estimated Glomerular Filt Rate 93 ml/min
--- OUTSIDE RECORDS SUMMARY | 2022-04-11 21:44 | XMS_ITS | Encounter Summary ---
:1975 Author Organization [place] Address [address] [facility] [place] [address] Care Team Providers Name Role Phone Esmer Roland MD Primary Care Provider [phone] Reason for Visit Reason Comments Minor Procedure endometrial biopsy Encounter Details Date Type Department Care Team Description 07/20/[address] [facility] Jeimy Christensen Abnormal uterine [facility] DO [place] bleeding (AUB) [place] [address] (Primary Dx) [address] [place], [place] [address] [address] [place], [place] [phone] [address] (Work) [phone] Social History Tobacco Use Types Packs/Day Years [...] Comments Blood Pressure 124/84 07/20/2015 1:49 PM EDUCATION TRAINER Pulse 78 07/20/2015 1:49 PM EDUCATION TRAINER Temperature 36.9 ??C (98.5 ??F) 07/20/2015 1:49 PM EDUCATION TRAINER Respiratory Rate - - Oxygen Saturation 97% 07/20/2015 1:49 PM EDUCATION TRAINER Inhaled Oxygen Concentration - - Weight 109.1 kg (240 lb 9.6 oz) 07/20/2015 1:49 PM EDUCATION TRAINER Height 167.6 cm (5' 6) 07/20/2015 1:49 PM EDUCATION TRAINER Body Mass Index 38.83 07/20/2015 1:49 PM EDUCATION TRAINER documented in this encounter Patient Instructions Patient InstructionsJeimy Christensen DO - 07/20/2015 2:26 PM CST reyna will call you Dr. Jeimy Christensen DO Obstetrics and Gynecology [facility] ATION TRAINER documented in this encounter Progress Notes Jeimy [...] Dr. Jeimy Christensen DO Obstetrics and Gynecology [facility] ATION TRAINER documented in this encounter Nursing Notes Mary [...] completed using cuff size: everton Diego CMA ATION TRAINER documented in this encounter Miscellaneous Notes Addendum Note - Mary Diego CMA - 07/20/2015 2:31 PM EDUCATION TRAINER Addended by: MARY DIEGO on: 07/20/2015 02:31 PM Modules accepted: Orders ATION TRAINER documented in this encounter Plan of Treatment Not on filedocumented as of this encounter Procedures Procedure Name Priority Date/Time Associated Comments Diagnosis SURGICAL PATHOLOGY Routine 07/20/2015 2:30 PM Abnormal uterine Results for this EXAM EDUCATION TRAINER bleeding (AUB) procedure are in the results section. HC ENDOMETRIAL BIOPSY Routine 07/20/2015 2:27 PM Abnormal uter ine W/O CERVICAL DILATION EDUCATION TRAINER bleeding (AUB) documented in this encounter Results Surgical pathology exam (07/20/2015 2:30 PM EDUCATION TRAINER) Component Value Ref Test Analysis Performed At [facility] Range Method Time Signature Copath Report Patient Name: DARIANA VALDEZ MR#: [id number] Specimen #: [id number] Collected: 07/20/2015 Received: 07/20/2015 [...] Microscopic examination is performed. CPT Codes: A: 96419-WV6 TESTING LAB LOCATION: [address] ??[address] COLLECTION SITE: Client: [facility] Location: [facility] (R) Specimen Anatomical Collection Method Collection Time Receive d Time (Source) Location / / Volume Laterality 07/20/2015 2:30 PM 6 3:46 EDUCATION TRAINER PM EDUCATION TRAINER Jeimy SHETTY - [facility] HEBERT Performing Organization Address City/State/ZIP Code Phon e Number [place] documented in this encounter Visit Diagnoses Diagnosis Abnormal uterine bleeding (AUB) - Primar y documented in this encounter Additional Health Concerns Assessment Noted Time PHQ-9 Depression Total Score: 12 06/17/2015 7:51 AM CS T documented as of this encounter Care Teams Cash Application Clerk Relationship Specialty Start Date End Date Esmer Roland MD PCP - General Family Practice 09/21/10 01/29/17 documented as of this encounter
--- OUTSIDE RECORDS SUMMARY | 2022-04-11 21:44 | XMS_ITS | Encounter Summary ---
:1975 Author Organization [place] Address [address] [place] [address]. [place] [address] Care Team Providers Name Role Phone Esmer Roland MD Primary Care Provider [phone] Reason for Visit Reason Onset Date Comments Refill Request 11/04/2014 Lexapro 20mg Encounter Details Date Type Department Care Team Description 11/04/2014 Refill [facility] Esmer Roland Refill Request (Lexapro Clinic Geyser MD Rochelle 20mg) [address] [facility], [address] [place] [address] [address] [place] [address] (Wo rk) [address] [phone] Social History Tobacco Use Types Packs/Day Years [...] mild documented in this encounter Care Teams Silicator Relationship Specialty Start Date End Date Esmer Roland MD PCP - General Family Practice 09/21/10 01/29/17 documented as of this encounter
--- OUTSIDE RECORDS SUMMARY | 2022-04-11 21:44 | XMS_ITS | Encounter Summary ---
:1975 Author Organization [place] Address [address] [place] [address] Care Team Providers Name Role Phone Esmer Roland MD Primary Care Provider Reason for Visit Reason Comments Recheck Medication Encounter Details Date Type Department Care Team Description 06/16/2015 Office Visit [facility] Esmer Roland d epressive disorder, recurrent episode, mild (H) (Primary Dx); Clinic Sara Byrd MD Anxiety; [place] [address] [facility] Routine general medical examination at a health care facility; [facility], [address] [place], [place] Vitamin D deficiency; [place] [address] CARDIOVASCULAR SCREENING; LDL GOAL LESS THAN 160; [address] obesity due to excess calori ([facility]) Social History Tobacco Use Types Packs/Day Years [...] Comments Blood Pressure 110/60 06/16/2015 8:36 AM SAFE DEPOSIT BOX RENTAL CLERK Pulse 70 06/16/2015 8:36 AM SAFE DEPOSIT BOX RENTAL CLERK Temperature - - Respiratory Rate 16 06/16/2015 8:36 AM SAFE DEPOSIT BOX RENTAL CLERK Oxygen Saturation - - Inhaled Oxygen Concentration - - Weight 107.5 kg (237 lb) 06/16/2015 8:36 AM SAFE DEPOSIT BOX RENTAL CLERK Height 167.6 cm (5' 6) 06/16/2015 8:36 AM SAFE DEPOSIT BOX RENTAL CLERK Body Mass Index 38.25 06/16/2015 8:36 AM SAFE DEPOSIT BOX RENTAL CLERK documented in this encounter Progress Notes Esmer [...] 01/06/2015 Total Score 2 4 4 PHQ-9 Kyrgyz PHQ-9 Any Language GAD7 ?? Amount of [...] Follow up 1 month Esmer Roland MD [facility] DEPOSIT BOX RENTAL CLERK documented in this encounter Nursing Notes Mayela [...] completed using cuff size: everton Reese RN DEPOSIT BOX RENTAL CLERK documented in this encounter Plan of Treatment Not on filedocumented as of this encounter Procedures Procedure Name Priority Date/Time Associated Diagnosis Comme nts VITAMIN D DEFICIENCY Routine 06/16/2015 8:31 Vitamin D deficie ncy Results for this SCREENING AM SAFE DEPOSIT BOX RENTAL CLERK procedure are i n the results section. TSH WITH FREE T4 Routine 06/16/2015 8:31 Major depressive Resu lts for this REFLEX AM SAFE DEPOSIT BOX RENTAL CLERK disorder, recurrent procedur e are in episode, mild (H) the result s section. LIPID REFLEX TO Routine 06/16/2015 8:31 CARDIOVASCULAR Results for this DIRECT LDL PANEL AM SAFE DEPOSIT BOX RENTAL CLERK SCREENING; LDL GOAL proc edure are in LESS THAN 160 the results section. COMPREHENSIVE Routine 06/16/2015 8:31 Major depressive Results for this METABOLIC PANEL AM SAFE DEPOSIT BOX RENTAL CLERK disorder, recurrent proce dure are in episode, mild (H) the result s section. CBC WITH PLATELETS Routine 06/16/2015 8:31 Major depressive Re sults for this AM SAFE DEPOSIT BOX RENTAL CLERK disorder, recurrent procedur e are in episode, mild (H) the result s section. documented in this encounter Results (ABNORMAL) Lipid panel reflex to direct LDL (06/16/2015 8:31 AM SAFE DEPOSIT BOX RENTAL CLERK) Analysis Performed At Patho logist Time Signature Cholesterol 158 <200 mg/dL [facility] Triglycerides 204 (H) <150 mg/dL [facility] Comment: Borderline high: ??150-199 mg/dl High: ? 200-499 mg/dl Very high: ? >499 mg/dl Fasting specimen HDL Cholesterol 37 (L) >49 mg/dL [place] [facility] LDL Cholesterol Calculated 80 <100 mg/dL FA [facility] Comment: Desirable: <100 mg/dl Non HDL Cholesterol 121 <130 mg/dL [facility] Specimen Anatomical Collection Method Collection Time Receive d Time (Source) Location / / Volume Laterality Blood specimen 06/16/2015 8:31 AM 016 8:32 (specimen) SAFE DEPOSIT BOX RENTAL CLERK AM SAFE DEPOSIT BOX RENTAL CLERK Esmer Roland MD LAB - BLOOD ORDERABLES Performing Organization Address City/State/ZIP Code Phon e Number [facility] [address] [place] [address] TSH with free T4 reflex (06/16/2015 8:31 AM SAFE DEPOSIT BOX RENTAL CLERK) athologist Signature TSH 2.98 0.40 - 4.00 [facility] mU/L [facility] Specimen Anatomical Collection Method Collection Time Receive d Time (Source) Location / / Volume Laterality Blood specimen 06/16/2015 8:31 AM 016 8:32 (specimen) SAFE DEPOSIT BOX RENTAL CLERK AM SAFE DEPOSIT BOX RENTAL CLERK Esmer Roland MD LAB - BLOOD ORDERABLES Performing Organization Address City/[facility]/ZIP Code Phon e Number [facility] [address] [place] [address] CBC with platelets (06/16/2015 8:31 AM SAFE DEPOSIT BOX RENTAL CLERK) athologist Signature WBC 9.2 4.0 - 11.0 [place] 10e9/L [facility] RBC Count 4.77 3.8 - 5.2 [place] 10e12/L [facility] Hemoglobin 14.2 11.7 - [facility] 15.7 g/dL [facility] Hematocrit 42.5 35.0 - [facility] 47.0 % [facility] MCV 89 78 - 100 [place] fl [facility] MCH 29.8 26.5 - [facility] 33.0 pg [facility] MCHC 33.4 31.5 - [facility] 36.5 g/dL [facility] RDW 12.3 10.0 - [place] 15.0 % [facility] Platelet Count 292 150 - 450 [place] 10e9/L [facility] Specimen Anatomical Collection Method Collection Time Receive d Time (Source) Location / / Volume Laterality Blood specimen 06/16/2015 8:31 AM 016 8:32 (specimen) SAFE DEPOSIT BOX RENTAL CLERK AM SAFE DEPOSIT BOX RENTAL CLERK Esmer Roland MD LAB - BLOOD ORDERABLES Performing Organization Address City/[facility]/ZIP Code Phon e Number [place] [address] (ABNORMAL) Comprehensive metabolic panel (06/16/2015 8:31 AM SAFE DEPOSIT BOX RENTAL CLERK) athologist Signature Sodium 140 133 - 144 [place] mmol/L [facility] Potassium 4.4 3.4 - 5.3 [place] mmol/L [facility] Chloride 107 94 - 109 [place] mmol/L [facility] Carbon Dioxide 24 20 - 32 [place] mmol/L [facility] Anion Gap 9 3 - 14 [place] mmol/L [facility] Glucose 87 70 - 99 [place] mg/dL [facility] Urea Nitrogen 13 7 - 30 [place] mg/dL [facility] Creatinine 0.94 0.52 - [place] 1.04 mg/dL [facility] GFR Estimate 66 >60 [place] mL/min/1.7 CLINICS m2 [facility] Comment: Non GFR Calc GFR Estimate If Black 80 >60 mL/min/1.7m2 F [facility] Comment: GFR Calc Calcium 8.4 (L) 8.5 - 10.1 mg/dL [place] [facility] I[facility] Bilirubin Total 0.2 0.2 - 1.3 mg/dL [facility] Albumin 3.5 3.4 - 5.0 g/dL [facility] Protein Total 6.8 6.8 - 8.8 g/dL [place] [facility] IN[facility] Alkaline Phosphatase 66 40 - 150 U/L [facility] ALT 17 0 - 50 U/L [facility] AST 10 0 - 45 U/L [facility] Specimen Anatomical Collection Method Collection Time Receive d Time (Source) Location / / Volume Laterality Blood specimen 06/16/2015 8:31 AM 016 8:32 (specimen) SAFE DEPOSIT BOX RENTAL CLERK AM SAFE DEPOSIT BOX RENTAL CLERK Esmer Roland MD LAB - BLOOD ORDERABLES Performing Organization Address City/State/ZIP Code Phon e Number [facility] [address] [place] [address] Vitamin D Deficiency (06/16/2015 8:31 AM SAFE DEPOSIT BOX RENTAL CLERK) athologist Signature Vitamin D 28 20 - 75 [facility] Deficiency ug/L [facility] Comment: Season, race, dietary intake, and treatm ent affect the concentration of 44-kmymmzf-Vtzkerb D. Values may decrea se during winter [...] specimen 06/16/2015 8:31 AM 016 8:32 (specimen) SAFE DEPOSIT BOX RENTAL CLERK AM SAFE DEPOSIT BOX RENTAL CLERK Esmer Roland MD LAB - BLOOD ORDERABLES Performing Organization Address City/State/ZIP Code Phon e Number [facility] [address] documented in this encounter Visit Diagnoses [...] documented as of this encounter Care Teams Railroad Hand Relationship Specialty Start Date End Date Esmer Roland MD PCP - General Family Practice 09/21/10 01/29/17 documented as of this encounter
--- OUTSIDE RECORDS SUMMARY | 2022-04-11 21:44 | XMS_ITS | Encounter Summary ---
:1975 Author Organization [place] Address [address] [place] [address]. [place] [address] Care Team Providers Name Role Phone Esmer Roland MD Primary Care Provider [phone] Reason for Visit Reason Onset Date Comments Refill Request 01/06/2014 Phentermine 37.5mg Encounter Details Date Type Department Care Team Description 01/06/2014 Refill [facility] Esmer Roland Refill Request Clinic Sara Byrd MD (Phentermine 37.5mg) [address] [place] [address] [place], [place] [phone] (Wo rk) [address] [phone] Social History Tobacco Use Types Packs/Day Years [...] unspecified documented in this encounter Care Teams Neurodiagnostic Tech Relationship Specialty Start Date End Date Esmer Roland MD PCP - General Family Practice 09/21/10 01/29/17 documented as of this encounter
--- OUTSIDE RECORDS SUMMARY | 2022-04-11 21:44 | XMS_ITS | Encounter Summary ---
:1975 Author Organization [place] Address [address] [place] [address] Care Team Providers Name Role Phone Esmer Roland MD Primary Care Provider [phone] Reason for Visit Reason Comments Hospital F/U Encounter Details Date Type Department Care Team Description 10/10[facility]2015 [facility] Fifi Sellers DO (Primary Dx) [address] [id number] [phone] Social History Tobacco Use Types Packs/Day Years [...] Reading Time Taken Comments Blood Pressure 124/70 10/10/2015 1:02 PM CDT Pulse - - Temperature - - Respiratory Rate - - Oxygen Saturation - - Inhaled Oxygen Concentration - - Weight 107.3 kg (236 lb 9.6 oz) 10/10/2015 1:02 PM CDT Height - - Body Mass Index 38.19 07/20/2015 1:49 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 Jeimy Christensen DO Obstetrics and Gynecology [facility] documented in this encounter Progress Notes Jeimy Christensen DO - 10/10/2015 1:09 PM CDT Subjective: 39 year old female status post laparoscopic bilateral salpingectomy, hysteroscopy with novasure ablation on 09/26/15 some abdominal pain Occuring over the last weekend, started the postop weeks #2, but now better, here for incision check. Doing well, denies fever, significant pain. Is not taking pain medications. States some light vaginal bleeding. Objective: EXAM: BP 124/70 mmHg Wt 107.321 kg (236 lb 9.6 oz) ? No Constitutional: healthy, alert and no distress Gastrointestinal: Abdomen soft, non-tender. Incision intact, no erthema, drainage. FOOD PRODUCTS TESTER PELVIC: NEGATIVE, normal external genitalia, normal vaginal mucosa, normal cervix and normal uterus, adnexa, no masses or tenderness Assessment/Plan: 39 year old female status post laparoscopic bilateral salpingectomy, hysteroscopy with novasure ablation on 09/26/15 some abdominal pain Occuring over the last weekend, started the postop weeks #2, but now better, here for incision check. V67.00C Surgery Follow-Up Examination (primary encounter diagnosis) Comment: Plan: Cramping is better, ok to resume intercourse. Dr. Jeimy Christensen DO Obstetrics and Gynecology [facility] documented in this encounter Nursing Notes Anais Hart CMA - 10/10/2015 1:04 PM CDT Chief Complaint Patient presents with ??? Hospital F/U Initial BP 124/70 mmHg Wt 236 lb 9.6 oz (107.321 kg) ? No Estimated body mass indexis 38.21 kg/(m^2) as calculated from the following: Height as of 16: 5' 6 (1.676 m). Weight as of this encounter: 236 lb 9.6 oz (107.321 kg). BP completed using cuff size: regular right arm. Anais Hart CMA Health Maintenance- Reviewed. documented in this encounter Plan of Treatment Not on filedocumented as of this encounter Visit Diagnoses Diagnosis S/P laparoscopy - Primary Other postprocedural status documented in this encounter Additional Health Concerns Assessment Noted Time PHQ-9 Depression Total Score: 4 09/02/2015 7:59 AM CDT documented as of this encounter Care Teams Collision Repair Technician Relationship Specialty Start Date End Date Esmer Roland MD PCP - General Family Practice 09/21/10 01/29/17 documented as of this encounter
--- OUTSIDE RECORDS SUMMARY | 2022-04-11 21:44 | XMS_ITS | Encounter Summary ---
:1975 Author Organization [place] Address [address] [place] [address]. [place] [address] Care Team Providers Name Role Phone Esmer Roland MD Primary Care Provider [phone] Reason for Visit Reason Onset Date Comments Medication Request 10/13/2014 Lexapro 20mg Encounter Details Date Type Department Care Team Description 10/13/2014 Telephone [facility] Esmer Roland Medicat ion Request Clinic Sara Byrd MD (Lexapro 20mg) [address] [place] [address] [address] [place] [address] [place], [place] [phone] (Wo rk) [address] [phone] Social History Tobacco Use Types Packs/Day Years [...] unspecified documented in this encounter Care Teams Cold Food Packer Relationship Specialty Start Date End Date Esmer Roland MD PCP - General Family Practice 09/21/10 01/29/17 documented as of this encounter
--- OUTSIDE RECORDS SUMMARY | 2022-04-11 21:44 | XMS_ITS | Encounter Summary ---
:1975 Author Organization [place] Address [address] [facility] 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 documented in this encounter Results US Pelvic Complete with Transvaginal (07/20/2015 2:26 PM LINE PILOT) Anatomical Region Laterality Modality Abdomen/Pelvis Ultrasound Specimen (Source) Anatomical Location Collection Method / Collectio n Time Received Time / Laterality Volume Impressions 07/21/2015 6:20 AM LINE PILOT #: [id number] Study Notes ? Lizzette Bell on 07/20/2015 2:29 PM [facility] Obstetrics & Gynecology 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
--- OUTSIDE RECORDS SUMMARY | 2022-04-11 21:44 | XMS_ITS | Encounter Summary ---
:1975 Author Organization [place] Address [address] [place] [address] Care Team Providers Name Role Phone Esmer Roland MD Primary Care Provider Reason for Visit Reason Comments Depression Encounter Details Date Type Department Care Team Description 07/21/2015 Office Visit [facility] Esmer Roland epressive Clinic Sara Byrd MD disorder, recurrent [place] [address] episode, mild [address] [place] [address] (Primary Dx) [place], [place] [phone] (Wo rk) [address] [phone] Social History Tobacco Use Types Packs/Day Years [...] Sign Reading Time Taken Comments Blood Pressure 112/80 07/21/2015 11:[address] PASSENGER FIRER Pulse 85 07/21/2015 11:[address] PASSENGER FIRER Temperature 37.2 ??C (98.9 ??F) 07/21/2015 11:[address] PASSENGER FIRER Respiratory Rate 16 07/21/2015 11:[address] PASSENGER FIRER Oxygen Saturation 96% 07/21/2015 11:[address] PASSENGER FIRER Inhaled Oxygen Concentration - - Weight 107.8 kg (237 lb 11.2 oz) 07/21/2015 11:[address] PASSENGER FIRER Height - - Body Mass Index 38.37 07/20/2015 1:[address] PASSENGER FIRER documented in this encounter Progress Notes Esmer Roland MD - 07/21/2015 11:19 AM CST SUBJECTIVE: Dariana Osman is a 39 year old female who presents to clinic today for the following health issues: Depression and Anxiety Follow-Up ?? Status since last visit: Worsened -depression ?? Crabby, irritable at work, ?? Other associated symptoms:None ?? Complicating factors: ?? Significant life event: No ?? Current substance abuse: None PHQ-9 SCORE 07/06/2014 01/06/2015 06/16/2015 Total Score - 6 - Total Score MyChart 2 - - Total Score - - 12 EUGENE-7 SCORE 05/27/2014 01/06/2015 06/16/2015 Total Score 4 4 - Total Score - - 5 PHQ-9 Citizen Of The [place] PHQ-9 Any Language GAD7 ?? Amount of exercise or physical activity: None ?? Problems taking medications regularly: No ?? Medication side effects: none ?? Diet: regular (no restrictions) PROBLEMS TO ADD ON...see OBGYN, see chart, tubal and ablation scheduled Problem list and histories reviewed & adjusted, as indicated. Additional history: as documented BP Readings from Last 3 Encounters: 07/21/15 112/80 07/20/15 124/84 06/16/15 110/60 Wt Readings from Last 3 Encounters: 07/21/15 237 lb 11.2 oz (107.82 kg) 07/20/15 240 lb 9.6 oz (109.135 kg) 06/16/15 237 lb (107.502 kg) Labs reviewed in [facility] Problem list, Medication list, Allergies, and Medical/Social/Surgical histories reviewed in [facility] andupdated as appropriate. ROS: C: NEGATIVE for fever, chills, change in weight E/M: NEGATIVE for ear, mouth and throat problems R: NEGATIVE for significant cough or SOB CV: NEGATIVE for chest pain, palpitations or peripheral edema OBJECTIVE: BP 112/80 mmHg Pulse 85 Temp(Src) 98.9 ??F (37.2 ??C) (Oral) Resp 16 Wt 237 lb 11.2 oz (107.82 kg) SpO2 96% LMP 06/29/2015 Body mass index is 38.38 kg/(m^2). GENERAL: healthy, alert and no distress MS: no gross musculoskeletal defects noted, no edema SKIN: no suspicious lesions or rashes NEURO: Normal strength and tone, mentation intact and speech normal PSYCH: mentation appears normal, affect normal/bright Diagnostic Test Results: none ASSESSMENT/PLAN: 1. Major depressive disorder, recurrent episode, mild (HCC) Raise to 90mg Follow up 2 wks - DULoxetine (CYMBALTA) 30 MG capsule; Take 3 capsules (90 mg) by mouth daily Dispense: 90 capsule; Refill: 5 Esmer Roland MD [facility] PASSENGER FIRER documented in this encounter Plan of Treatment Not on filedocumented as of this encounter Visit Diagnoses Diagnosis Major depressive disorder, recurrent epi sode, mild (H) - Primary Major depressive disorder, recurrent epi sode, mild documented in this encounter Additional Health Concerns Assessment Noted Time PHQ-9 Depression Total Score: 12 06/17/2015 7:51 AM CS T documented as of this encounter Care Teams Commercial Parts Professional Relationship Specialty Start Date End Date Esmer Roland MD PCP - General Family Practice 09/21/10 01/29/17 documented as of this encounter
--- OUTSIDE RECORDS SUMMARY | 2022-04-11 21:44 | XMS_ITS | Encounter Summary ---
:1975 Author Organization [place] Address [address] [place] [address] Care Team Providers Name Role Phone Esmer Roland MD Primary Care Provider [phone] Reason for Visit Reason Comments Urinary Problem Urgent Care sx started this am and has b lood in the urine - may have had mild sx last week Encounter Details Date Type Department Care Team Description 12/16/2015 Office Visit [facility] Urgent Tobi West ulus of kidney (Primary Dx); Care ZENON Maddox Hematuria; [address] [address] [address] Bacteria in urine SONJA Juárez [address] [place], [place] [phone] [address] Social History Tobacco Use Types Packs/Day Years [...] Reading Time Taken Comments Blood Pressure 110/70 12/16/2015 1:51 PM CDT Pulse 80 12/16/2015 1:51 PM CDT Temperature 37.3 ??C (99.2 ??F) 12/16/2015 1:51 PM CDT Respiratory Rate 14 12/16/2015 1:51 PM CDT Oxygen Saturation 98% 12/16/2015 1:51 PM CDT Inhaled Oxygen Concentration - - Weight 102.1 kg (225 lb) 12/16/2015 1:51 PM CDT Height - - Body Mass Index 36.32 07/20/2015 1:49 PM 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 Blood In The Urine Blood in the urine (hematuria) has many possible causes. If it occurs after an injury (such as a car accident or fall), it is most often a sign of bruising to the kidney or bladder. Common medical causes of blood in the urine include urinary tract infection, kidney stone, inflammation, tumors, or certain other diseases of the kidney or bladder. Menstruation can cause blood to appear in the urine sample, although it is not coming from the urinary tract. If only a trace amount of blood is present, it will show up on the urine test, even though the urinemay be yellow and not pink or red. This may occur with any of the above conditions, as well as heavyexercise or high fever. In this case, your doctor may want to repeat the urine test on another day. This will show if the blood is still present. If so, then other tests can be done to find out the cause. Home Care: 1. If your urine does not appear bloody (pink, brown or red) then you do not need to restrict your activity in any way. 2. If you can see blood in your urine, rest and avoid heavy exertion until your next exam. Do not use aspirin or anti-inflammatory medicine like ibuprofen (Motrin, Advil) or naproxen (Naprosyn, Aleve).These thin the blood and may increase bleeding. Follow Up with your doctor or as advised by our staff. If you were injured and had blood in your urine, you should have a repeat urine test in 1-2 days. Contact your doctor or return to this facility for this test. [NOTE: A radiologist will review any X-rays that were taken. We will notify you of any new findings that may affect your care.] Get Prompt Medical Attention if any of the following occur: ?? Bright red blood or blood clots in the urine (if a new symptom) ?? Weakness, dizziness or fainting ?? New groin, abdominal or back pain ?? Fever of 100.4??F (38??C) or higher, or as directed by your healthcare provider ?? Repeated vomiting ?? Bleeding from nose, gums or easy bruising ?? [phone] [employer]. [address] [place] [address], [place] [address]. All rights reserved. This information is not intended as a substitute for professional medical care. Always follow your healthcare professional's instructions. 12/16/15 URGENT CARE FOLLOW-UP PLAN: 1. Follow-up immediately in ER if any increase in your temperature, flank pain, obstructive voiding symptoms (ie difficulty emptying your bladder), N/V/D, increased low-back discomfort or any supra-pubic/pelvic pain or abdominal pain. 2. Strain your urine to see if you can catch a stone 3. Push plain, non-carbonated, water 4. Start the antibiotics I prescribed (Cipro) 5. You absolutely need follow-up with your primary care doctor (Dr. Roland) Friday or your urologistdue to the large volume blood in your urine. In my opinion, at a minimum, you need a CT scan for evaluation. documented in this encounter Progress Notes Tobi Beltran PA-C - 12/18/2015 12:51 PM CDT SUBJECTIVE: Dariana Osman presents to today for evaluation of gross hematuria. Patient reports she passed bright red blood in urine this morning. She has had 1 or 2 subsequent voids with dark brown bloodbut no further bright red blood. She has had a few days of mild bladder irritability sxs (slight increase in urinary frequency and atypical and intermittent mild dysuria). Denies any obstructive voiding sxs. Admits to some mild, bilateral back cramping (similar to menstrual cramp type pain). No severelow back pain. No flank pain. Patient denies any fever (although slight fever of 99.2 noted here today). She has not noted fever at home. No C/N/V/D, rash, abdominal pain or any other acute illness sxs. Positive personal hx of kidney stones: Below is copy from 04/08/08 Op note on file in [facility] Expand All Collapse All FINAL PREOPERATIVE DIAGNOSIS: ??Left ureteral stone. POSTOPERATIVE DIAGNOSIS: ??Left ureteral stone. ??Ureteral stricture. PROCEDURE: ??Cystoscopy, balloon dilation of ureteral stricture, holmium laser lithotripsy of stone,retrograde pyelogram, left stent. 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 Denies any vaginal bleeding or spotting. S/p status post laparoscopic bilateral salpingectomy, hysteroscopy with novasure ablation on 09/26/15. No pelvic pain or abnormal vaginal d/c GI: No abdominal pain. No N/V/D. Appetite is good. Normal BM's OBJECTIVE: BP 110/70 mmHg Pulse 80 Temp(Src) 99.2 ??F (37.3 ??C) (Oral) Resp 14 Wt 225 lb (102.059 kg) SpO2 98% General appearance: alert and no apparent distress Skin color is pink and without rash. No jaundice. Sclera clear. HEENT: Conjunctiva not injected. Sclera clear. NECK: No JVD. No adenopathy. CARDIAC:NORMAL - regular rate and rhythm without murmur. RESP: Normal - CTA without rales, rhonchi, or wheezing. ABDOMEN: Abdomen soft, non-tender. BS normal. No masses, organomegaly. No CVA tenderness ULTRASONIC WELDING MACHINE OPERATOR: Normal external female genitalia. No lesions. Normal pink vaginal mucosa. Cervix well visualized and unremarkable. NO blood in vaginal vault. No CMT. Uterus normal sized and mobile. Adnexa also negative for masses or pain. CBC w DIFF: Component Latest Ref Rng 12/16/2015 WBC 4.0 - 11.0 10e9/L 10.2 RBC Count 3.8 - 5.2 10e12/L 4.79 Hemoglobin 11.7 - 15.7 g/dL 14.4 Hematocrit 35.0 - 47.0 % 43.5 MCV 78 - 100 fl 91 MCH 26.5 - 33.0 pg 30.1 MCHC 31.5 - 36.5 g/dL 33.1 RDW 10.0 - 15.0 % 12.8 Platelet Count 150 - 450 10e9/L 305 Diff Method Automated Method % Neutrophils 64.9 % Lymphocytes 23.8 % Monocytes 7.2 % Eosinophils 3.5 % Basophils 0.6 Absolute Neutrophil 1.6 - 8.3 10e9/L 6.6 Absolute Lymphocytes 0.8 - 5.3 10e9/L 2.4 Absolute Monocytes 0.0 - 1.3 10e9/L 0.7 Absolute Eosinophils 0.0 - 0.7 10e9/L 0.4 Absolute Basophils 0.0 - 0.2 10e9/L 0.1 Component Latest Ref Rng 12/16/2015 Sodium 133 - 144 mmol/L 140 Potassium 3.4 - 5.3 mmol/L 4.6 Chloride 94 - 109 mmol/L 100 Carbon Dioxide 20 - 32 mmol/L 25 Anion Gap 3 - 14 mmol/L 15 (H) Glucose 70 - 99 mg/dL 82 Urea Nitrogen 7 - 30 mg/dL 12 Creatinine 0.52 - 1.04 mg/dL 1.00 GFR Estimate >60 mL/min/1.7m2 62 GFR Estimate If Black >60 mL/min/1.7m2 75 Calcium 8.5 - 10.1 mg/dL 9.2 Component Latest Ref Rng 12/16/2015 WBC Urine 0 - 2 /HPF O - 2 RBC Urine 0 - 2 /HPF >100 (A) Squamous Epithelial /LPF Urine FEW /LPF Few Bacteria Urine NEG /HPF Few (A) ASSESSMENT/PLAN: SUMMARY: Gross hematuria in a minimally symptomatic and otherwise healthy 40 y.o. Woman. Patient educated that I do think hematuria is kidney stone related and that she needs short interval follow-up assessmentwith PCP or ER in next 24-48 hours. Push H2O and strain urine for stone (strainer provided). Minimally symptomatic/no need for narcotic pain medication. Advised I want her to go to ER if increased pain. Very low likelihood of concomitant bacterial infection. However, as there is some bacteria in urine,will cover with abx pending UCX as presence of stone and infection would significantly increase riskof pyelonephritis. Patient advised I suspect pending UCX will be negative but she agrees that she would like to cover with Cipro for a couple of days until we have definitive evidence. See additional patient directions below. 12/16/15 URGENT CARE FOLLOW-UP PLAN (printed copy provided to patient): 1. Follow-up immediately in ER if any increase in your temperature, flank pain, obstructive voiding symptoms (ie difficulty emptying your bladder), N/V/D, increased low-back discomfort or any supra-pubic/pelvic pain or abdominal pain. 2. Strain your urine to see if you can catch a stone 3. Push plain, non-carbonated, water 4. Start the antibiotics I prescribed (Cipro) 5. You absolutely need follow-up with your primary care doctor (Dr. Roland) Friday or your urologistdue to the large volume blood in your urine. In my opinion, at a minimum, you need a CT scan for evaluation. In addition to the above, hematuria/kidney stone and UTI red flag signs and sxs are reviewed withpt both verbally and by way of printed educational material for home review. Pt verbalizes understanding of and agrees to the above plan. (N20.0) Calculus of kidney (primary encounter diagnosis) (R31.9) Hematuria Plan: UA reflex to Microscopic and Culture, Urine Microscopic, CBC with platelets differential, Basic metabolic panel (Ca, Cl, CO2, Creat, Gluc, K, Na, BUN), Urine Culture Aerobic Bacterial (N39.0) Bacteria in urine documented in this encounter Nursing Notes Stephani Dupree, GUY - 12/16/2015 1:54 PM CDT Dariana Osman is a 40 year old female. Chief Complaint Patient presents with ??? Urinary Problem ??? Urgent Care sx started this am and has blood in the urine - may have had mild sx last week Initial BP 110/70 mmHg Pulse 80 Temp(Src) 99.2 ??F (37.3 ??C) (Oral) Resp 14 Wt 225 lb (102.059 kg) SpO2 98% Estimated body mass index is 36.33 kg/(m^2) as calculated from the following: Height as of 07/20/15: 5' 6 (1.676 m). Weight as of this encounter: 225 lb (102.059 kg). BP completed using cuff size: large Questioned patient about current smoking habits. Pt. has never smoked. Stephani Dupree CMA documented in this encounter Plan of Treatment Not on filedocumented as of this encounter Procedures Procedure Name Priority Date/Time Associated Comments Diagnosis CBC WITH PLATELETS & Routine 12/16/2015 2:27 PM Hematuria R esults for this DIFFERENTIAL CDT procedure are i n the results section. BASIC METABOLIC PANEL STAT 12/16/2015 2:27 PM Hematuria Results for this CDT procedure are i n the results section. URINE MICROSCOPIC Routine 12/16/2015 2:02 PM Hem[place]ia Resu lts for this CDT procedure are i n the results section. UA MACROSCOPIC WITH Routine 12/16/2015 2:02 PM Hematuria Re sults for this REFLEX TO MICROSCOPIC CDT proced ure are in AND CULTURE the results section. URINE CULTURE Routine 12/16/2015 2:02 PM Hematuria Results for this CDT procedure are i n the results section. documented in this encounter Results (ABNORMAL) Basic metabolic panel (Ca, Cl, CO2, Creat, Gluc, K, Na, BUN) (12/16/2015 2:27 PM CDT) athologist Signature Sodium 140 133 - 144 [facility] mmol/L [facility] Potassium 4.6 3.4 - 5.3 [facility] mmol/L [facility] Chloride 100 94 - 109 [facility] mmol/L [facility] Carbon Dioxide 25 20 - 32 [facility] mmol/L [facility] Anion Gap 15 (H) 3 - 14 [facility] mmol/L [facility] Glucose 82 70 - 99 [facility] mg/dL [facility] Urea Nitrogen 12 7 - 30 [facility] mg/dL [facility] Creatinine 1.00 0.52 - [facility] 1.04 mg/dL [facility] GFR Estimate 62 >60 [facility] mL/min/1.7 [facility] m2 GFR Estimate If 75 >60 [facility] Black mL/min/1.7 [facility] m2 Calcium 9.2 8.5 - 10.1 [facility] mg/dL [facility] Comment: Testing performed on Kimmie at [facility] lab. Specimen Anatomical Collection Method Collection Time Receive d Time (Source) Location / / Volume Laterality Blood specimen 12/16/2015 2:27 PM 016 2:33 (specimen) CDT PM CDT Tobi West PA-C LAB - BLOOD ORDERABLES Performing Organization Address City/[facility]/ZIP Code Phon e Number [facility] [address] [place] [address] CBC with platelets differential (12/16/2015 2:27 PM CDT) [facility] gist Method Time Signature WBC 10.2 4.0 - [facility] 11.0 [facility] 10e9/L [facility] RBC Count 4.79 3.8 - 5.2 [facility] 10[facility] Hemoglobin 14.4 11.7 - [facility] 15.7 g/dL [facility] Hematocrit 43.5 35.0 - [place] 47.0 % [facility] MCV 91 78 - 100 [place] fl [facility] MCH 30.1 26.5 - [facility] 33.0 pg [facility] MCHC 33.1 31.5 - [place] 36.5 g/dL [facility] RDW 12.8 10.0 - [place] 15.0 % [facility] Platelet Count 305 150 - 450 [place] 10e9/L [facility] Diff Method Automated [place] Method [facility] % Neutrophils 64.9 % [place] [facility] % Lymphocytes 23.8 % [place] [facility] % Monocytes 7.2 % [place] [facility] % Eosinophils 3.5 % [facility] % Basophils 0.6 % [facility] Absolute 6.6 1.6 - 8.3 [place] Neutrophil 10e9/L [facility] Absolute 2.4 0.8 - 5.3 [place] Lymphocytes 10e9/L [facility] Absolute 0.7 0.0 - 1.3 [place] Monocytes 10e9/L [facility] Absolute 0.4 0.0 - 0.7 [place] Eosinophils 10e9/L [facility] Absolute 0.1 0.0 - 0.2 [place] Basophils 10e9/L [facility] Specimen Anatomical Collection Method Collection Time Receive d Time (Source) Location / / Volume Laterality Blood specimen 12/16/2015 2:27 PM 016 2:33 (specimen) CDT PM CDT Tobi West PA-C LAB - BLOOD ORDERABLES Performing Organization Address City/[facility]/ZIP Code Phon e Number [facility] [address] [place] [address] [phone] Urine Culture Aerobic Bacterial (12/16/2015 2:02 PM CDT) Component Value Ref Test Analysis Performed At Patholo gist Range Method Time Signature Specimen Midstream Urine [facility] Culture Micro <10,000 colonies/mL mixed ur ogenital benjamin Susceptibility testing not routinely INFECTIOUS done DISEASE DIAGNOSTIC LABORATORY Micro Report FINAL 12/17/2015 INFECTIOUS Status DISEASE DIAGNOSTIC LABORATORY Specimen Anatomical Collection Method Collection Time Receive d Time (Source) Location / / Volume Laterality Urine specimen 12/16/2015 2:02 PM 016 3:00 (specimen) CDT PM CDT Tobi West PA-C LAB - MICRO GENERAL ORDERA BLES Performing Organization Address City/[facility]/ZIP Code Phon e Number INFECTIOUS DISEASES [address] [place] [address] DIAGNOSTIC LABORATORY, [facility] [address] [place] [address] [phone] INFECTIOUS DISEASE [address] DIAGNOSTIC LABORATORY (ABNORMAL) Urine Microscopic (12/16/2015 2:02 PM CDT) Analysis Performed At Patho logist Time Signature WBC Urine O - 2 0 - 2 /HPF [facility] RBC Urine >100 (A) 0 - 2 /HPF [facility] Squamous Few FEW /LPF [place] Epithelial /LPF [facility] Urine Bacteria Urine Few (A) NEG /HPF [facility] Specimen Anatomical Collection Method Collection Time Receive d Time (Source) Location / / Volume Laterality 12/16/2015 2:02 PM 6 2:07 CDT PM CDT Tobi West PA-C LAB - URINE ORDERABLES Performing Organization Address City/[facility]/ZIP Code Phon e Number [facility] [address] [place] [address] [phone] (ABNORMAL) UA reflex to Microscopic and Culture (12/16/2015 2:02 PM CDT) Component Value Ref Test Analysis Performed At Patholo gist Range Method Time Signature Color Urine Brown [facility] Appearance Urine Cloudy [facility] Glucose Urine Negative NEG [place] mg/dL [facility] Bilirubin Urine Small NEG [place] This is an unconfirmed screening test result. A positive result may be false. [facility]IN[facility] (A) [facility] Ketones Urine 15 (A) NEG [place] mg/dL [facility] Specific [place] 1.025 1.003 - [place] Urine 1.035 [facility] Blood Urine Large (A) NEG [facility] pH Urine 5.5 5.0 - [place] 7.0 pH [facility] Protein Albumin >=300 (A) NEG [place] Urine mg/dL [facility] Urobilinogen 0.2 0.2 - [place] Urine 1.0 CLINICS EU/dL [facility] Nitrite Urine Negative NEG [facility] Leukocyte Negative NEG [place] Esterase Urine [facility] Source Midstream Urine [facility] Specimen Anatomical Collection Method Collection Time Receive d Time (Source) Location / / Volume Laterality Urine specimen 12/16/2015 2:02 PM 016 2:07 (specimen) CDT PM CDT Tobi West PA-C LAB - URINE ORDERABLES Performing Organization Address City/State/ZIP Code Phon e Number [facility] [address] [place] [address] documented in this encounter Visit Diagnoses Diagnosis Calculus of kidney - Primary Hematuria Hematuria, unspecified Bacteria in urine Other nonspecific finding on examination of urine documented in this encounter Additional Health Concerns Assessment Noted Time PHQ-9 Depression Total Score: 4 09/02/2015 7:59 AM CDT documented as of this encounter Care Teams Glue Sprayer Relationship Specialty Start Date End Date Esmer Roland MD PCP - General Family Practice 09/21/10 01/29/17 documented as of this encounter
--- OUTSIDE RECORDS SUMMARY | 2022-04-11 21:44 | XMS_ITS | Encounter Summary ---
:1975 Author Organization [place] Address [address] [place] [address] Care Team Providers Name Role Phone Esmer Roland MD Primary Care Provider [phone] Reason for Visit Reason Comments Pre-Op Exam breast reduction/ repair Encounter Details Date Type Department Care Team Description 04/01/2014 Office Visit [facility] Yony Garcia Preop general physical exam (Primary Dx); Clinic Sara Hoyos PA-C Need for immunization against influenza [place] [address] [facility], [address] [place] [address] [phone] Social History Tobacco Use Types Packs/Day Years [...] Gambino PA-C - 04/01/2014 9:39 AM CDT [address], [address] [facility] [address] Dept: [phone] PRE-OP EVALUATION: Today's date: 04/01/2014 Dariana Osman (: 1975) presents for pre-operative evaluation assessment as requested by Dr. Chuck Washington. She requires evaluation and anesthesia risk assessment prior to undergoing surgery/procedure for treatment of breast correction/reduction . Proposed procedure: breast repair/reduction Date of Surgery/ Procedure: 04/06/14 Time of Surgery/ Procedure: 6:45 AM Hospital/Surgical Facility: [facility] Fax number for surgical facility: [phone] Primary Physician: Esmer Roland Type of Anesthesia [...] ([facility]) 11/23/2012 Priority: Medium 11/23/12 [facility]. 12/25/12 [place]= BRIGID 2. Referred to Ob~Oil Spot Washer, Dr. Christensen 02/18/13 LEEP= Negative, R/P pap [...] cardiovascular risks for perioperative complications such as (MO, PE, VFib and 3?? AV Block): No [...] - 04/01/2014 11:04 AM CDT Addended by: OYNY GAMBINO on: 04/01/2014 11:04 AM Modules accepted: [...] athologist Signature Hemoglobin 14.4 11.7 - 15.7 [place] g/dL [facility] Specimen Anatomical Collection Method Collection Time Receive d Time (Source) Location / / Volume Laterality Blood specimen 04/01/2014 11:05 4 (specimen) AM CDT 11:06 AM CDT Yony Garcia PA-C LAB - BLOOD ORDERABLES Performing Organization Address City/State/ZIP Code Phon e Number [facility] [id number] [place] [address] documented in this encounter Visit Diagnoses Diagnosis Preop general physical exam - Primary Other specified pre-operative examinatio n Need for immunization against influenza Need for prophylactic vaccination and in oculation against influenza documented in this encounter Care Teams Electrocardiograph Repairer Relationship Specialty Start Date End Date Esmer Roland MD PCP - General Family Practice 09/21/10 01/29/17 documented as of this encounter
--- OUTSIDE RECORDS SUMMARY | 2022-04-11 21:44 | XMS_ITS | Encounter Summary ---
:1975 Author Organization [place] Address [facility] [place] [address] Care Team Providers Name Role Phone Esmer Roland MD Primary Care Provider [phone] Encounter Details Date Type Department Care Team Description 04/04/2015 E-Visit [facility] Yony Garcia ([place]C Dx) [address] [facility], [address] [place] [address] AVE [address] [place] [address] [place], [place] [phone] (Wo rk) [address] [phone] Social History Tobacco Use Types Packs/Day Years [...] limb documented in this encounter Care Teams Accounts Payable Lead Relationship Specialty Start Date End Date Esmer Roland MD PCP - General Family Practice 09/21/10 01/29/17 documented as of this encounter
--- OUTSIDE RECORDS SUMMARY | 2022-04-11 21:44 | XMS_ITS | Encounter Summary ---
:1975 Author Organization [place] Address [address] [facility] [place] [address] Care Team Providers Name Role Phone Esmer Roland MD Primary Care Provider [phone] Reason for Visit Reason Onset Date Comments Call To Schedule Appointment 02/03/2015 ultrasound Encounter Details Date Type Department Care Team Description 02/03/2015 Telephone [facility] Jeimy Christensen Call To Schedule Clinic Jamie Sellers DO Appointment [address] [facility] [address] ([address]) [place], [place] [address] [address] [place], [place] [phone] [address] (Work) [phone] Social History Tobacco Use Types Packs/Day Years [...] on filedocumented in this encounter Care Teams Capture Manager Relationship Specialty Start Date End Date Esmer Roland MD PCP - General Family Practice 09/21/10 01/29/17 documented as of this encounter
--- OUTSIDE RECORDS SUMMARY | 2022-04-11 21:44 | XMS_ITS | Encounter Summary ---
:1975 Author Organization [place] Address [address] [facility] [place] [address] Care Team Providers Name Role Phone Esmer Roland MD Primary Care Provider [phone] Encounter Details Date Type Department Care Team Description 04/06/2014 Hospital Pathology [facility] TerrellMD Results [facility] [address] [place] [phone] (Wo rk) Social History Tobacco Use Types [...] Component Value Ref Test Analysis Performed At [facility] Method Time Signature Copath Report Patient Name: DARIANA VALDEZ MR#: [id number] Specimen #: [id number] Collected: 04/06/2014 Received: 04/06/2014 Reported: 04/08/2014 16:16 [...] volume. ??No mass lesions are identified grossly. Sound Mixer sections are submitted in two cassettes. B.: [...] ??No mass lesi ons are identified grossly. ??Sound Mixer sections are submitted in two cassettes. (Dictated by: Blake Schofield 04/07/2014 10:15 AM) MICROSCOPIC: A and B. Microscopic performed CPT Codes: A: 06822-ZW8 B: 19279-WV3 TESTING LAB LOCATION: [place] [employer] [address] ??[address] COLLECTION SITE: Client: [facility]on [facility] Location: S223 (F) Specimen Anatomical Collection Method Collection Time Receive d Time (Source) Location / / Volume Laterality 04/06/2014 9:00 AM 4 3:46 CDT PM CDT Rommel Washington MD LAB - [facility] Performing Organization Address City/State/ZIP Code Phon e Number [facility] documented in this encounter Visit Diagnoses Not on filedocumented in this encounter Care Teams Graduate Student Instructor Relationship Specialty Start Date End Date Esmer Roland MD PCP - General Family Practice 09/21/10 01/29/17 documented as of this encounter
--- OUTSIDE RECORDS SUMMARY | 2022-04-11 21:44 | XMS_ITS | Encounter Summary ---
:1975 Author Organization [place] Address [address] [facility] [place] [address] Care Team Providers Name Role Phone Esmer Roland MD Primary Care Provider Reason for Referral NIRAJ Physical Therapy - Closed Specialty Diagnoses / Procedures Referred By Contact Refer red To Contact Diagnoses Pfs (patellofemoral syndrome), unspecified laterality Pes anserine bursitis Kenneth Couch, [facility] [id number] [address] ADMIN OFFICE JAM[place]SONJA [address] Phone: [phone] Referral ID Status Reason Start Date Expiration Date Visits Requ ested Visits Authorized [id number] Closed 02/21/2014 08/20/2014 1 1 Reason for Visit Reason Comments Knee Pain Encounter Details Date Type Department Care Team Description 02/21/2014 [facility] Pes anser ine bursitis (Primary Dx); Clinic Sara Booth MD PFS (patellofemoral syndrome), unspecifi ed laterality [place] [address] [facility], [address] [place] [address] [place] [phone] (Wo rk) [address] [phone] Social History Tobacco Use Types Packs/Day Years [...] by: rest/inactivity, ice and NSAID - ibuprofen 6533-4613/day started fish oil by chiropractor recommendation ?? [...] laterality documented in this encounter Care Teams Engine Setter Relationship Specialty Start Date End Date Esmer Roland MD PCP - General Family Practice 09/21/10 01/29/17 documented as of this encounter
--- OUTSIDE RECORDS SUMMARY | 2022-04-11 21:44 | XMS_ITS | Encounter Summary ---
:1975 Author Organization [place] Address [address] [place] [address]. [place] [address] Care Team Providers Name Role Phone Esmer Roland MD Primary Care Provider [phone] Reason for Visit Reason Comments Consult heavy periods and long--cons ult for ablation or D&C procedure Encounter Details Date Type Department Care Team Description 02/02/2015 Office Visit [facility] Jeimy Christensen or frequent [facility] DO [place] menstruation (Primary [place] [address] Dx) [address] [place] [address] [phone] Social History Tobacco Use Types Packs/Day Years [...] biopsy Dr. Jeimy Christensen, Obstetrics and Gynecology [facility] [place] documented in this encounter Progress Notes Jeimy [...] Dr. Jeimy Christensen, DO Obstetrics and Gynecology [facility] documented in this encounter Nursing Notes Solange [...] Pelvic Complete with Transvaginal (07/20/2015 2:26 PM EDUCATIONAL TECHNOLOGY SPECIALIST) Anatomical Region Laterality Modality Abdomen/Pelvis Ultrasound Specimen (Source) Anatomical Location Collection Method / Collectio n Time Received Time / Laterality Volume Impressions 07/21/2015 6:20 AM EDUCATIONAL TECHNOLOGY SPECIALIST #: [id number] Study Notes ? Lizzette Bell on 07/20/2015 2:29 PM [facility] Obstetrics & Gynecology [address] [place] [address]. [address] [place] [address] ULTRASOUND - PELVIC STEEL ANALYST Referring MD: Jeimy Christensen Primary Clinic: [facility] CLINICAL INFORMATION Indications for ultrasound: [...] indicated Lois BANERJEE Narrative 07/21/2015 6:20 AM EDUCATIONAL TECHNOLOGY SPECIALIST Order Jeimy Christensen DO IMG US ORDERABLES documented in this encounter Visit Diagnoses Diagnosis Excessive or frequent menstruation - Mel rangel documented in this encounter Care Teams Copyright Manager Relationship Specialty Start Date End Date Esmer Roland MD PCP - General Family Practice 09/21/10 01/29/17 documented as of this encounter
--- OUTSIDE RECORDS SUMMARY | 2022-04-11 21:44 | XMS_ITS | Encounter Summary ---
:1975 Author Organization [place] Address [address] [facility] [place] [address] Care Team Providers Name Role Phone Esmer Roland MD Primary Care Provider [phone] Encounter Details Date Type Department Care Team Description 07/20/2015 Radiant Appointment [facility] Jeimy Christensen Jamie Sellers, DO [address] [facility] [id number] [place] [address] [address] [place], [place] [address] [address] [place], [place] [phone] [address] (Work) [phone] Social History Tobacco Use Types Packs/Day Years [...] or Results for this TRANSABDOMINAL AND PM DANDY OPERATOR frequent procedure are in TRANSVAGINAL menstruation the results section. documented in this encounter Results US Pelvic Complete with Transvaginal (07/20/2015 2:26 PM DANDY OPERATOR) Anatomical Region Laterality Modality Abdomen/Pelvis Ultrasound Specimen (Source) Anatomical Location Collection Method / Collectio n Time Received Time / Laterality Volume Impressions 07/21/2015 6:20 AM DANDY OPERATOR #: [id number] Study Notes ? Lizzette Bell on 07/20/2015 2:29 PM [facility] Obstetrics & Gynecology [address] [place] [address] ULTRASOUND - PELVIC DIETARY SERVER Referring MD: Jeimy Christensen Primary Clinic: [facility] CLINICAL INFORMATION Indications for ultrasound: [...] indicated Lois BANERJEE Narrative 07/21/2015 6:20 AM DANDY OPERATOR Order Jeimy Christensen DO IMG US ORDERABLES documented in this encounter Visit Diagnoses Not on filedocumented in this encounter Additional Health Concerns Assessment Noted Time PHQ-9 Depression Total Score: 12 06/17/2015 7:51 AM CS T documented as of this encounter Care Teams Final Assembly And Packing Supervisor Relationship Specialty Start Date End Date Esmer Roland MD PCP - General Family Practice 09/21/10 01/29/17 documented as of this encounter
--- OUTSIDE RECORDS SUMMARY | 2022-04-11 21:44 | XMS_ITS | Encounter Summary ---
:1975 Author Organization [place] Address [address] [place] [address] Care Team Providers Name Role Phone Esmer Roland MD Primary Care Provider [phone] Reason for Visit Reason Comments Recheck Medication Encounter Details Date Type Department Care Team Description 01/06/2015 Office Visit [facility] Yony Garcia Major depressive disorder, single episode, moderate (H) (Primary Dx); Clinic [place] ZENON Hoyos Migraine without aura and without status migrainosus, not intractable; [place] [address] MIC[address] SHEA MDD (major depressive disorder), recurre nt episode, mild (H) Road, [address] [place] [address] [place], [place] [phone] (Wo rk) [address] [phone] Social History Tobacco Use Types Packs/Day Years [...] Body Mass Index 36.41 07/08/2014 9:54 AM PHYSICIST ACOUSTICS documented in this encounter Progress Notes Yony [...] ?? Current substance abuse: None PHQ-9 SCORE ([facility]) 05/09/2014 05/27/2014 07/06/2014 Total Score 8 6 - Total Score - - 2 EUGENE-7 SCORE 04/06/2013 05/09/2014 05/27/2014 Total Score 5 2 4 PHQ-9 Armenian PHQ-9 Any Language GAD7 ?? Amount of [...] she changes her mind. Yony Garcia PA-C [facility] Physical Exam documented in this [...] mild documented in this encounter Care Teams Naval Marine Engineer Relationship Specialty Start Date End Date Esmer Roland MD PCP - General Family Practice 09/21/10 01/29/17 documented as of this encounter
--- OUTSIDE RECORDS SUMMARY | 2022-04-11 21:44 | XMS_ITS | Encounter Summary ---
:1975 Author Organization [place] Address [facility] [place] [address] Care Team Providers Name Role Phone Esmer Roland MD Primary Care Provider [phone] Reason for Visit Reason Onset Date Comments Refill Request 02/27/2015 Xanax Encounter Details Date Type Department Care Team Description 02/27/2015 Refill [facility] Esmer Roland Refill Request (Xanax) Clinic [place] MD [place] [address] [place] [address], [address] [place] [address] [address] [place] [address] [place], [place] [phone] (Wo rk) [address] [phone] Social History Tobacco Use Types Packs/Day Years [...] CDT RX faxed to pharmacy [facility] SMALL Wire Harness Design Engineer [facility] Telephone Encounter - Mayela Reese RN - [...] Avalos - 02/27/2015 2:42 PM CDT Ph. [phone] Patient crying on the phone and does not have insurance Pending Prescriptions: Disp Refills ALPRAZolam (XANAX) 0.5 MG tablet 40 tab*0 Sig: Take 1 tablet (0.5 mg) by mouth nightly as needed for anxiety Last Written Prescription Date: 10/01/2013 Last Fill Quantity: 40, # refills: 0 Last Office Visit with [facility] primary care provider: 01/06/2015 Future Office visit: Routing refill request to provider for review/approval because: Drug not on the [facility] refill protocol or controlled substance Nohemi Avalos Wire Harness Design Engineer documented in this encounter Plan of Treatment Not on filedocumented as of this encounter Visit Diagnoses Diagnosis Insomnia - Primary Insomnia, unspecified documented in this encounter Care Teams Billing Clerk Relationship Specialty Start Date End Date Esmer Roland MD PCP - General Family Practice 09/21/10 01/29/17 documented as of this encounter
--- OUTSIDE RECORDS SUMMARY | 2022-04-11 21:44 | XMS_ITS | Encounter Summary ---
:1975 Author Organization [place] Address [facility] [place] [address] Care Team Providers Name Role Phone Esmer Roland MD Primary Care Provider [phone] Reason for Visit Reason Onset Date Comments Nurse Advice Line 02/14/2014 Encounter Details Date Type Department Care Team Description 02/14/2014 Telephone [facility] Esmer Roland Nurse Advice Line Sara Byrd MD [address] [place] [address], [address] [place] [address] [address] [place] [address] [place], [place] [phone] (Wo rk) [address] [phone] Social History Tobacco Use Types Packs/Day Years [...] diseases documented in this encounter Care Teams Manager Staffing Relationship Specialty Start Date End Date Esmer Roland MD PCP - General Family Practice 09/21/10 01/29/17 documented as of this encounter
--- OUTSIDE RECORDS SUMMARY | 2022-04-11 21:44 | XMS_ITS | Encounter Summary ---
:1975 Author Organization [place] Address [address] [place] [address]. [place] [address] Care Team Providers Name Role Phone Esmer Roland MD Primary Care Provider [phone] Reason for Visit Reason Onset Date Comments Nurse Advice Line 04/04/2015 edema top of foot an d ankle Encounter Details Date Type Department Care Team Description 04/04/2015 Telephone [facility] Esmer Roland Nurse A dvice Line Clinic Sara Byrd MD (edema top of foot and [facility], [id number] [place] [address] AV ankle) [address] [place] [address] [place], [place] [phone] (Wo rk) [address] [phone] Social History Tobacco Use Types Packs/Day Years [...] coverage. We recommended she contact PCP via [employer] for an e-visit. Caller agrees to plan. Amadeo Weiss RN documented in this encounter Plan of Treatment Not on filedocumented as of this encounter Visit Diagnoses Not on filedocumented in this encounter Care Teams Head Sugar Reprocess Operator Relationship Specialty Start Date End Date Esmer Roland MD PCP - General Family Practice 09/21/10 01/29/17 documented as of this encounter
--- OUTSIDE RECORDS SUMMARY | 2022-04-11 21:44 | XMS_ITS | Encounter Summary ---
:1975 Author Organization [place] Address [address] [facility] [place] [address] Care Team Providers Name Role Phone Esmer Roland MD Primary Care Provider [phone] Reason for Visit Reason Onset Date Comments Refill Request 06/05/2015 lexapro Encounter Details Date Type Department Care Team Description 06/05/2015 Refill [facility] Esmer Roland Refill Request Clinic [place] MD [place]helle (lexapro) [address] [place] [address] SONJA BENAVIDEZ 5 [id number] [phone] Social History Tobacco Use Types Packs/Day Years [...] Miscellaneous Notes Telephone Encounter - Anni Marquez [facility] - 06/06/2015 12:19 PM BUSINESS INFO CONSULTANT Prescription approved per [facility] Refill Protocol - should address further refills at Jun 16 appointment. Juli Marquez, Pharm.D. [facility] Flo Pharmacist On behalf of [facility] NESS INFO CONSULTANT Telephone Encounter - Deidre Alas - 06/05/2015 12:12 PM CST Last Written Prescription Date: 01/06/15 Last Fill Quantity: 180, # refills: 0 Last Office Visit with [facility] primary care provider: 01/06/15 Next 5 appointments (look out 90 days) Jun 16, 2015 8:00 AM MyChart Long with Esmer Roland MD [facility] [address] [place] [address], [address] [facility] [id number] Jul 20, 2015 2:15 PM SHORT with Jeimy Christensen DO [facility] [address] [place] [phone] Last PHQ-9 score on record= PHQ-9 SCORE 01/06/2015 Total Score 6 Total Score MyChart - NESS INFO CONSULTANT documented in this encounter Plan of Treatment Not on filedocumented as of this encounter Visit Diagnoses Diagnosis MDD (major depressive disorder), recurre nt episode, mild (H) - Primary Major depressive disorder, recurrent epi sode, mild documented in this encounter Care Teams Luster Repairer Relationship Specialty Start Date End Date Esmer Roland MD PCP - General Family Practice 09/21/10 01/29/17 documented as of this encounter
--- OUTSIDE RECORDS SUMMARY | 2022-04-11 21:44 | XMS_ITS | Encounter Summary ---
:1975 Author Organization [place] Address [address] [place] [address]. [place] [address] Care Team Providers Name Role Phone Esmer Roland MD Primary Care Provider [phone] Reason for Visit Reason Onset Date Comments Refill Request 05/09/2014 LEXAPRO 20MG and Amb ien Encounter Details Date Type Department Care Team Description 05/09/2014 Refill [facility] Esmer Roland Refill Request (LEXAPRO [facility] [place] 20MG and Ambien ) [address] [facility], [address] [place] [address] [address] [place] [address] [place], [place] [phone] (Wo rk) [address] [phone] Social History Tobacco Use Types Packs/Day Years [...] RX faxed to [facility] SMALL [employer] Rep[employer] Mechanic [facility] DROUS AMMONIA PRODUCTION SUPERVISOR Telephone Encounter - Esmer Cavanaugh RN - 05/09/2014 1:11 PM CST Refilled Lexapro PSO for quanity of #60 the pt also requested a refill on her Ambien 5mg. Last Seen: 10/01/[address] Roland Last PHQ-9 score on record= PHQ-9 SCORE ([facility] 05/09/2014 Total Score 8 Total Score - [...] out of the Lexapro Esmer Cavanaugh RN. DROUS AMMONIA PRODUCTION SUPERVISOR Telephone Encounter - Lennie Haddad - 05/09/2014 1:00 PM CST PT called requesting refill of Lexapro 20MG to [place] [facility]. Please call her when done [phone]. DROUS AMMONIA PRODUCTION SUPERVISOR documented in this encounter Plan of Treatment Not on filedocumented as of this encounter Visit Diagnoses Diagnosis ANXIETY STATE NOS Anxiety state, unspecified Adjustment disorder with anxiety Insomnia Insomnia, unspecified documented in this encounter Care Teams Addiction Specialist Relationship Specialty Start Date End Date Esmer Roland MD PCP - General Family Practice 09/21/10 01/29/17 documented as of this encounter
--- OUTSIDE RECORDS SUMMARY | 2022-04-11 21:44 | XMS_ITS | Encounter Summary ---
:1975 Author Organization [place] Address [address] [place] [address]. [place] [address] Care Team Providers Name Role Phone Esmer Roland MD Primary Care Provider [phone] Encounter Details Date Type Department Care Team Description 09/26/2015 Hospital Pathology [facility] Hospital Results DO [place] [address] [place] [address] (Wo rk) Social History Tobacco Use Types [...] Associated Diagnosis Comme nts SURGICAL PATHOLOGY Routine 09/26/2015 8:30 AM Res ults for this EXAM CDT procedure are i n the results section. documented in this encounter Results Surgical pathology exam (09/26/2015 8:30 AM CDT) Component Value Ref Test Analysis Performed At [facility] Range Method Time Signature Copath Report Patient Name: DARIANA VALDEZ MR#: [id number] Specimen #: [id number] Collected: 09/26/2015 Received: 09/26/2015 Reported: 09/27/2015 14:08 Ordering Phy(s): JEIMY CHRISTENSEN SPECIMEN(S): Fallopian tubes, right and left FINAL DIAGNOSIS: Fallopian tubes, right and left, salpingectomies. - Two transected benign fallopian tubes present. Electronically signed out by: Blake Scruggs M.D. CLINICAL HISTORY: Menorrhagia, desires permanent sterilization GROSS: The specimen is received in formalin labeled with the patien t's name, identifying information and portion of right and left fallo pian tubes . ??It consists of two, unoriented fimbriated fallopian tub es each 4.5 cm long by up to 0.6 cm in diameter. ??Both fallopian tubes are surface by pink edematous serosa with multiple minute paratubal cyst s. ??A complete lumen is identified. ??Me[employer]anger sections of e ach tube are submitted in 2 blocks. (Dictated by: Сергей Gonzalez 09/26/2015 01:32 PM) MICROSCOPIC: Microscopic evaluation performed. CPT Codes: A: 63713-OL4 TESTING LAB LOCATION: [facility] [address] ??[phone] COLLECTION SITE: Client: [facility] Location: R548 (F) Specimen Anatomical Collection Method Collection Time Receive d Time (Source) Location / / Volume Laterality 09/26/2015 8:30 AM 6 1:13 CDT PM CDT Jeimy Christensen DO LAB - [facility] Performing Organization Address City/State/ZIP Code Phon e Number COPATH documented in this encounter Visit Diagnoses Not on filedocumented in this encounter Additional Health Concerns Assessment Noted Time PHQ-9 Depression Total Score: 4 09/02/2015 7:59 AM CDT documented as of this encounter Care Teams Forest Landscape Ecology Professor Relationship Specialty Start Date End Date Esmer Roland MD PCP - General Family Practice 09/21/10 01/29/17 documented as of this encounter
--- OUTSIDE RECORDS SUMMARY | 2022-04-11 21:44 | XMS_ITS | Encounter Summary ---
:1975 Author Organization [place] Address [address] [place] [address] Care Team Providers Name Role Phone Esmer Roland MD Primary Care Provider Reason for Visit Reason Comments Allied Health Visit Here to sign MA form for T.L Casper Encounter Details Date Type Department Care Team Description 07/27/2015 Allied Health/Nurse [facility] All ied Health Visit Visit Clinic [place] (Here to sign MA form [address] [place] [address] Social History Tobacco Use Types Packs/Day Years Used Date Smoking Tobacco: Former Smokeless Tobacco: Never Comments: Very Occasional Alcohol Use Standard Drinks/Week Comments Yes 0 (1 standard drink = 0.6 oz pure 1 TIME A a week(1 glass of wine) 1 alcohol) qo weekend Sex Assigned at Date Recorded Not on file documented as of this encounter Nursing Notes Lolly Mendoza LPN - 07/27/2015 8:42 AM CST Pt. [place] a TCasperLCasper MCasperACasper form signed. Copy to PtCasper [facility] Central Business Office Scanner to scan into chart A.S.AMeme Alegria the medical office scheduler Envelope in nursing station ERCIAL LOAN PROCESSOR documented in this encounter Plan of Treatment Not on filedocumented as of this encounter Visit Diagnoses Diagnosis Contraceptive management - Primary Unspecified contraceptive management documented in this encounter Additional Health Concerns Assessment Noted Time PHQ-9 Depression Total Score: 12 06/17/2015 7:51 AM CS T documented as of this encounter Care Teams Laboratory Chemical Assistant Relationship Specialty Start Date End Date Esmer Roland MD PCP - General Family Practice 09/21/10 01/29/17 documented as of this encounter
--- OUTSIDE RECORDS SUMMARY | 2022-04-11 21:44 | XMS_ITS | Encounter Summary ---
:1975 Author Organization [place] Address [facility] [place] [address] Care Team Providers Name Role Phone Esmer Roland MD Primary Care Provider [phone] Reason for Visit Reason Onset Date Comments Panel Management 01/08/2016 EUGENE-7 and PHQ9 Encounter Details Date Type Department Care Team Description 01/08/2016 Telephone [facility] Esmer Roland [facility] Sara Byrd MD (EUGENE-7 and PHQ9) [address] [place] [address], [address] [place] [address] [address] [place] [address] [place], [place] [phone] (Wo rk) [address] [phone] Social History Tobacco Use Types Packs/Day Years Used Date Smoking Tobacco: Former Smokeless Tobacco: Never Comments: Very Occasional Alcohol Use Standard Drinks/Week Comments Yes 0 (1 standard drink = 0.6 oz pure 1 TIME A a week(1 glass of wine) 1 alcohol) qo weekend Sex Assigned at Date Recorded Not on file documented as of this encounter Miscellaneous Notes Telephone Encounter - Missy Rolle - 02/07/2016 2:42 PM CDT 3rd attempt, letter sent. Fady Rolle Personnel And Payroll Technician Telephone Encounter - Missy Rolle - 01/30/2016 11:46 AM CDT Second attempt, sent [employer] message with questionnaires. Fady Rolle Personnel And Payroll Technician Telephone Encounter - Polly Duron - 01/30/2016 11:33 AM CDT 2nd attempt: Spoke to patient, she has been dealing with sickness and does not have time or energy to deal with this right now. I would suggest we wait 2 weeks and if she still has not scheduled then we can send a follow up letter Telephone Encounter - Melissa Leal CMA - 01/08/2016 4:00 PM CDT Panel Management Review Patient has the following on her problem list: Depression / Dysthymia review PHQ-9 SCORE 01/06/2015 06/16/2015 09/01/2015 Total Score 6 - - Total Score MyChart - - - Total Score - 12 4 Patient is due for: PHQ9 and EUGENE-7 Composite cancer screening Chart review shows that this patient is due/due soon for the following None Summary: Patient is due/failing the following: EUGENE-7 and PHQ9 Action needed: Patient needs to do PHQ9. Type of outreach: Sent [employer] message. Questions for provider review: None Melissa Leal CMA Chart routed to Care Team . documented in this encounter Plan of Treatment Not on filedocumented as of this encounter Visit Diagnoses Not on filedocumented in this encounter Additional Health Concerns Assessment Noted Time PHQ-9 Depression Total Score: 4 09/02/2015 7:59 AM CDT documented as of this encounter Care Teams Rehab Trainer Relationship Specialty Start Date End Date Esmer Roland MD PCP - General Family Practice 09/21/10 01/29/17 documented as of this encounter
--- OUTSIDE RECORDS SUMMARY | 2022-04-11 21:44 | XMS_ITS | Encounter Summary ---
:1975 Author Organization [place] Address [facility] [place] [address] Care Team Providers Name Role Phone Esmer Roland MD Primary Care Provider [phone] Encounter Details Date Type Department Care Team Description 03/13/2015 E-Visit [facility] Yony Garcia Dysuria (Primary Dx) Sara Hoyos PA-C [address] [place] [address], [address] [place] [address] [address]VE [address] [place] [address] [place], [place] [phone] (Wo rk) [address] [phone] Social History Tobacco Use Types Packs/Day Years [...] Primary documented in this encounter Care Teams Library Paraprofessional Relationship Specialty Start Date End Date Esmer Roland MD PCP - General Family Practice 09/21/10 01/29/17 documented as of this encounter
--- OUTSIDE RECORDS SUMMARY | 2022-04-11 21:44 | XMS_ITS | Encounter Summary ---
:1975 Author Organization [facility] Address [address] [place] [address]. [place] [address] Care Team Providers Name Role Phone Esmer Roland MD Primary Care Provider [phone] Yony Garcia PA-C Primary Care Provider [phone] Yony Garcia PA-C Unavailable [phone] Yony Garcia PA-C Unavailable [phone] Encounter Details Date Type Department Care Team Description 06/27/2014 Result Follow [facility] Esmer Roland Dx: Ab normal Pap smear, Up Clinic [place] [id number] [place] [address] [place] intraepit [facility], [address] (ASC-H) (Primary Dx) [place] [phone] [id number] Social History Tobacco Use Types Packs/Day Years [...] 06/27/2014 4:04 PM CST 11/23/12 ASC-H. 12/25/12 [place]= BRIGID 2. Referred to Ob~Robotic Weld Technician, Dr. Christensen 02/18/13 LEEP= Negative, R/P pap in 6 and 12 months. Due 08/2013 and 02/201410/01/13 Dx pap= Normal. Repeat co-testing in 6 months. 06/27/14 Pap reminder sent per [facility] 07/08/14 Pap= NIL, Neg HPV. Co-test 1 yr 01/25/16 [facility] pap reminder message sent. (es) 08/08/16 Spoke with pt, reminded her of need for pap and offered [facility] phone number for scheduling. Pt declined phone number and thanked for the call. ([facility]) 11/21/16 Would consider patient to be lost to follow-up. Routed to provider for review. ([facility]) 12/24/16 ASCUS pap, neg HR HPV. 02/05/17 [...] ACOG Practice Bulletin # 131, Apr 2012. TALLOGRAPHER Esmer Roland MD - 06/27/2014 4:03 PM CST Please call pt and see if she is going elsewhere for her paps or offer to schedule appt with me Thank you Caroline Bryant RN - 06/27/2014 4:03 PM CST LM on to call back. Caroline Burns RN, BSN, PHN [facility] RN TALLOGRAPHER Caroline Bryant RN - 06/27/2014 4:03 PM CST Pt. Informed of 01/25/2016 [employer] message that was sent. Triage reviewed patient chart with her on the phone. Pt. Expressed understanding and will schedule avisit with Dr. Christensen as she also has other concerns. Caroline Burns RN, BSN, PHN [facility] RN TALLOGRAPHER documented in this encounter Plan of Treatment Not on filedocumented as of this encounter Visit Diagnoses Diagnosis Abnormal Pap smear, can't excl hi gd sq intraepithelial lesion (ASC-H) - Primary Papanicolaou smear of cervix with atypic al squamous cells cannot exclude high grade squamous intraepithelial lesion (ASC-H) documented in this encounter Care Teams Graphic Arts Instructor Relationship Specialty Start Date End Date Esmer Roland, PCP - General Family Practice 09/21/10 01/29/17 Yony Garcia, PCP - General Physician Fortune Teller - 01/30/17 07/23/18 PA-C Medical Yony Garcia, PCP - Assigned PCP 09/01/16 08/11/18 PA-C [id number] [place] [id number] Yony Garcia, Assigned PCP 09/01/16 PA-C [id number] [place] KRAUSE [id number] documented as of this encounter
--- OUTSIDE RECORDS SUMMARY | 2022-04-11 21:44 | XMS_ITS | Encounter Summary ---
:1975 Author Organization [place] Address [address] [place] [address] Care Team Providers Name Role Phone Esmer Roland MD Primary Care Provider [phone] Reason for Visit Reason Comments Recheck Medication LEXAPRO Depression Encounter Details Date Type Department Care Team Description 05/27/2014 Office Visit [facility] Esmer Roland ANXIETY STATE NOS (Primary Dx); Clinic Sara Byrd MD MDD (major depressive disorder) [place] [address] [facility], [address] [place] [address] [place], [place] [phone] (Wo rk) [address] [phone] Social History Tobacco Use Types Packs/Day Years [...] Comments Blood Pressure 112/70 05/27/2014 9:42 AM MINE SUPERVISOR Pulse 65 05/27/2014 9:42 AM MINE SUPERVISOR Temperature 37.2 ??C (98.9 ??F) 05/27/2014 9:42 AM MINE SUPERVISOR Respiratory Rate 16 05/27/2014 9:42 AM MINE SUPERVISOR Oxygen Saturation 97% 05/27/2014 9:42 AM MINE SUPERVISOR Inhaled Oxygen Concentration - - Weight 99.8 kg (220 lb 1.6 oz) 05/27/2014 9:42 AM MINE SUPERVISOR Height 169.5 cm (5' 6.75) 05/27/2014 9:42 AM MINE SUPERVISOR Body Mass Index 34.73 05/27/2014 9:42 AM MINE SUPERVISOR documented in this encounter Progress Notes Esmer [...] Mar. paps are now improving and seeing KENO WRITER / RUNNER regularly, very heavy periods, would like to have hysterectomy, but D@C is likely to be planned in the near future Depression and Anxiety Follow-Up ?? Status since last visit: Worsened -DEPRESSION , due to all the above, does not like to go out anymore, no hobbies, not calling friends, feels more irritable, happy at home with her kids ?? 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 Other associated symptoms:None ?? Complicating factors: ?? Significant life event: Yes- Complications after surgery. ?? Current substance abuse: None ?? lexapro 40mg, hx of prozac in the past ?? Has gained a lot of weight in the past few yrs PHQ-9 SCORE ([facility] 04/02/2013 10/01/2013 05/09/2014 Total Score 8 6 8 Total Score - - - EUGENE-7 SCORE 04/06/2013 05/09/2014 Total Score 5 2 PHQ-9 Gambian PHQ-9 Any Language GAD7 ?? Amount of exercise or physical activity: None ?? Problems taking medications regularly: No ?? Medication side effects: none ?? Diet: regular (no restrictions) PROBLEMS TO ADD ON... Problem list and histories reviewed & adjusted, as indicated. Additional history: as documented Labs reviewed in [facility] Problem list, Medication list, Allergies, and Medical/Social/Surgical histories reviewed in [facility] andupdated as appropriate. ROS: Constitutional, HEENT, [...] Follow up 1 month Esmer Roland MD [facility] Physical Exam SUPERVISOR documented in this encounter Nursing Notes Melissa Leal, AUTOMATIC TRANSMISSION MECHANIC - 05/27/2014 9:46 AM CST Chief Complaint [...] size large RIGHT arm. Melissa Leal CMA SUPERVISOR documented in this encounter Plan of Treatment Not on filedocumented as of this encounter Visit Diagnoses Diagnosis ANXIETY STATE NOS - Primary Anxiety state, unspecified MDD (major depressive disorder) Major depressive disorder, single episod e, unspecified documented in this encounter Care Teams Farmer [employer] Relationship Specialty Start Date End Date Esmer Roland MD PCP - General Family Practice 09/21/10 01/29/17 documented as of this encounter
--- OUTSIDE RECORDS SUMMARY | 2022-04-11 21:44 | XMS_ITS | Encounter Summary ---
:1975 Author Organization [facility] Address [address] [place] [address] Care Team Providers Name Role Phone Fawad Roland MD Primary Care Provider [phone] Reason for Visit Reason Comments Physical fasting Encounter Details Date Type Department Care Team Description [facility]/08[facility]2014 [facility] Routine general medical examination at a health care facility (Primary Dx); Clinic Sara Byrd MD Family history of thyroid disease in fat her; [place] [address] [address] BMI 34.0-34.9,adult; Road, [address] [place] [address] ANXIETY STATE NOS [place], [place] [phone] (Wo rk) [address] [phone] Social History Tobacco Use Types Packs/Day Years [...] Comments Blood Pressure 122/80 07/08/2014 9:54 AM HEALTH INFORMATION ADMINISTRATOR Pulse 71 07/08/2014 9:54 AM HEALTH INFORMATION ADMINISTRATOR Temperature 37.3 ??C (99.1 ??F) 07/08/2014 9:54 AM HEALTH INFORMATION ADMINISTRATOR Respiratory Rate - - Oxygen Saturation 100% 07/08/2014 9:54 AM HEALTH INFORMATION ADMINISTRATOR Inhaled Oxygen Concentration - - Weight 99.8 kg (220 lb) 07/08/2014 9:54 AM HEALTH INFORMATION ADMINISTRATOR Height 168.9 cm (5' 6.5) 07/08/2014 9:54 AM HEALTH INFORMATION ADMINISTRATOR Body Mass Index 34.98 07/08/2014 9:54 AM HEALTH INFORMATION ADMINISTRATOR documented in this encounter Patient Instructions Patient [...] months for an exam and cleaning. ?? TH INFORMATION ADMINISTRATOR documented in this encounter Progress Notes Fawad [...] accordingly All Histories reviewed and updated in [facility]. Depression Follow-Up ?? Status since last visit: Worsened slightly, doing ok, changed from lexapro to zoloft, not feelingsociable lately, no energy ?? See PHQ-9 for current symptoms. ?? Other associated symptoms:None ?? Complicating factors: Significant life event: No Current substance abuse: None Anxiety / Panic symptoms: No PHQ-9 Jordanian PHQ-9 Any Language ROS: C: NEGATIVE for [...] list, Allergies, and Medical/Social/Surgical histories reviewed in [facility] andupdated as appropriate. Labs reviewed in [facility] OBJECTIVE: BP 122/80 Pulse 71 Temp(Src) 99.1 [...] Preventive Guidelines Dietary Guidelines for Americans, 2009 Local [employer] regular exercise healthy diet/nutrition contraception-options discussed [...] fruits/vegetables and avoid sweets. Fawad Roland MD [facility] TH INFORMATION ADMINISTRATOR documented in this encounter Nursing Notes Timothy [...] completed using cuff size: large.Timothy Post MA TH INFORMATION ADMINISTRATOR documented in this encounter Plan of Treatment Not on filedocumented as of this encounter Procedures Procedure Name Priority Date/Time Associated Comments Diagnosis TSH WITH FREE T4 Routine 07/08/2014 10:36 Routine General Resu lts for this REFLEX AM HEALTH INFORMATION ADMINISTRATOR Medical Examination procedur e are in [facility] the results Facility section. Family history of thyroid disease in father BMI 34.0-34.9,adult LIPID REFLEX TO DIRECT Routine 07/08/2014 10:36 Routine Genera l Results for this LDL PANEL AM HEALTH INFORMATION ADMINISTRATOR Medical Examination procedur e are in [facility] the results Facility section. COMPREHENSIVE Routine 07/08/2014 10:36 Routine General Results for this METABOLIC PANEL AM HEALTH INFORMATION ADMINISTRATOR Medical Examination proce mehul are in At [facility] the results Facility section. PAP IMAGED THIN LAYER Routine 07/08/2014 12:00 Routine General Results for this SCREEN AM HEALTH INFORMATION ADMINISTRATOR Medical Examination procedur e are in At [facility] the results Facility section. HPV SCR W REF TO TIEN Routine 07/08/2014 12:00 Re sults for this ANAL PAP OR TISSUE AM HEALTH INFORMATION ADMINISTRATOR procedure are in the results section. documented in this encounter Results Comprehensive metabolic panel (07/08/2014 10:36 AM HEALTH INFORMATION ADMINISTRATOR) P athologist Signature Sodium 139 133 - 144 [facility] mmol/L [facility] Potassium 4.8 3.4 - 5.3 [facility] mmol/L [facility] Chloride 108 94 - 109 [facility] mmol/L [facility] Carbon Dioxide 24 20 - 32 [facility] mmol/L [facility] Anion Gap 7 3 - 14 [facility] mmol/L [facility] Glucose 83 70 - 99 [facility] mg/dL [facility] Comment: Effective 01/05/2014, the reference range for this assay has changed to reflect new instrumentation/methodology. Urea Nitrogen 11 7 - 30 mg/dL [facility] Comment: Effective 01/05/2014, the reference range for this assay has changed to reflect new instrumentation/methodology. Creatinine 0.81 0.52 - 1.04 mg/dL [facility] GFR Estimate 80 >60 mL/min/1.7m2 [facility] Comment: Non GFR Calc GFR Estimate If >90 >60 mL/min/1.7m2 [facility] Black GFR Calc [facility] Calcium 9.0 8.5 - 10.1 mg/dL [facility] Comment: Effective 01/05/2014, the reference range for this assay has changed to reflect new instrumentation/methodology. Bilirubin Total 0.3 0.2 - 1.3 mg/dL [facility] Albumin 3.7 3.4 - 5.0 g/dL [facility] S [facility] Protein Total 7.3 6.8 - 8.8 g/dL [facility] Alkaline Phosphatase 70 40 - 150 U/L [facility] ALT 24 0 - 50 U/L [facility] AST 11 0 - 45 U/L [facility] Specimen Anatomical Collection Method Collection Time Receive d Time (Source) Location / / Volume Laterality Blood specimen 07/08/2014 10:36 5 (specimen) AM HEALTH INFORMATION ADMINISTRATOR 10:37 AM HEALTH INFORMATION ADMINISTRATOR Fawad Roland MD LAB - BLOOD ORDERABLES Performing Organization Address City/State/ZIP Code Phon e Number [facility] [address] [place] [address] TSH with free T4 reflex (07/08/2014 10:36 AM HEALTH INFORMATION ADMINISTRATOR) P athologist Signature TSH 3.44 0.40 - 4.00 [facility] mU/L [facility] Comment: Effective 01/05/2014, the reference range for this assay has changed to reflect new instrumentation/methodology. Specimen Anatomical Collection Method Collection Time Receive d Time (Source) Location / / Volume Laterality Blood specimen 07/08/2014 10:36 5 (specimen) AM HEALTH INFORMATION ADMINISTRATOR 10:37 AM HEALTH INFORMATION ADMINISTRATOR Fawad Roland MD LAB - BLOOD ORDERABLES Performing Organization Address City/State/ZIP Code Phon e Number [facility] [address] [place] [address] (ABNORMAL) LIPID REFLEX TO DIRECT LDL PANEL (07/08/2014 10:36 AM HEALTH INFORMATION ADMINISTRATOR) P athologist Signature Cholesterol 155 <200 mg/dL [facility] Comment: LDL Cholesterol is the primary guide to therapy. The NCEP recommends further evaluation of: patients with cholesterol greater than 200 mg/dL if additional risk facto rs are present, cholesterol greater than 240 mg/dL, triglycerides greater than 1 50 mg/dL, or HDL less than 40 mg/dL. Triglycerides 159 (H) 0 - 150 mg/dL [facility] HDL Cholesterol 46 (L) >50 mg/dL [facility] LDL Cholesterol Calculated 77 0 - 129 mg/dL [facility] Comment: LDL Cholesterol is the primary guide to therapy: LDL-cholesterol goal in high risk patients is <100 mg/dL and in very high risk patients is <70 mg/dL. VLDL-Cholesterol 32 (H) 0 - 30 mg/dL [facility] Cholesterol/HDL Ratio 3.4 0.0 - 5.0 [facility] Specimen Anatomical Collection Method Collection Time Receive d Time (Source) Location / / Volume Laterality Blood specimen 07/08/2014 10:36 5 (specimen) AM HEALTH INFORMATION ADMINISTRATOR 10:37 AM HEALTH INFORMATION ADMINISTRATOR Fawad Roland MD LAB - BLOOD ORDERABLES Performing Organization Address City/State/ZIP Code Phon e Number [facility] [address] [place] [address] HPV screen with reflex to genotype (07/08/2014 12:00 AM HEALTH INFORMATION ADMINISTRATOR) Component Value Ref Test Analysis Performed At Patholo gist Range Method Time Signature Copath Report Patient Name: DARIANA VALDEZ MR#: [id number] Specimen #: [id number] Collected: 07/08/2014 00:00 Received: 07/14/2014 11:28 Reported: 07/14/2014 16:18 Ordering Phy(s): FAWAD ROLAND TEST(S) REQUESTED: Human Papillomavirus Screen Analysis SPECIMEN DESCRIPTION: Cervical Cells RESULTS: HPV 16 DNA: ?? NEGATIVE HPV 18 DNA: ??NEGATIVE OTHER HR HPV DNA: ??NEGATIVE FINAL DIAGNOSIS: ?? This patient's sample is negative for HP V DNA. ?? The [place] [employer] (ACOG) r [...] and its performance characteristics determined by the [facility]. It has not been cleared or approved by the FDA. The laboratory is regulated under CLIA as qualified to perform high-complexity testing. This test is used for clinical purp oses. It should not be regarded as investigational or for research. Electronically Signed Out By: DAVIS Pacs Administrator CPT Codes: A: 90026- HPVSC TESTING LAB LOCATION: [facility] [address] [facility] [address] [place] [address] COLLECTION SITE: Client: ??[facility] Location: ??[facility] (R) Specimen (Source) Anatomical Collection Method Collection Time Re ceived Time Location / / Volume Laterality 07/08/2014 07/14/2014 11:2 8 AM HEALTH INFORMATION ADMINISTRATOR Fawad Roland MD LAB - GENOMICS Performing Organization Address City/State/ZIP Code Phon e Number [facility] PAP IMAGED THIN LAYER SCREEN (07/08/2014 12:00 AM HEALTH INFORMATION ADMINISTRATOR) Component Value Ref Test Analysis Performed At [facility] Range Method Time Signature PAP NIL COPATH Copath Report [facility] Patient Name: DARIANA VALDEZ MR#: [id number] Specimen #: [id number] Collected: 07/08/2014 Received: 07/11/2014 Reported: 07/13/2014 13:17 [...] [place] [facility] (ASCP) Processed and screened at [facility] CLINICAL HISTORY: Previous normal pap Date of Last Pap: 10/01/13 Previous abnormal pap: HGSIL, LEEP: in 2012, Papanicolaou Test Limitations: ??Cervical cytology is a scre ening test with limited sensitivity; regular screening is critical for cancer prevention; Pap tests are primarily effective for the diagnosis/prevention of squamous cell carcinoma, not adenoca rcinomas or other cancers. TESTING LAB LOCATION: [address] ??[address] COLLECTION SITE: Client: ??[facility] Location: [facility] (R) Specimen (Source) Anatomical Collection Method Collection Time Re ceived Time Location / / Volume Laterality Cytologic 07/08/2014 07/11/2014 2:26 material PM HEALTH INFORMATION ADMINISTRATOR (specimen) Fawad Roland MD LAB - OPTIME [...] unspecified documented in this encounter Care Teams Gun Numberer Relationship Specialty Start Date End Date Fawad Roland MD PCP - General Family Practice 09/21/10 01/29/17 documented as of this encounter
--- OUTSIDE RECORDS SUMMARY | 2022-04-11 21:44 | XMS_ITS | Encounter Summary ---
:1975 Author Organization [place] Address [address] [facility] [place] [address] Care Team Providers Name Role Phone Esmer Roland MD Primary Care Provider [phone] Reason for Visit Reason Onset Date Comments Nurse Advice Line 12/18/2015 F/u from visit (H ematuria) Encounter Details Date Type Department Care Team Description 12/18/2015 Telephone [facility] Esmer Roland A dvice Line (F/u Clinic [place] MD Rochelle from visit [facility], [address] [place] [address] [place] (Hematuria)) [address] [place] [address] [place], [place] [phone] (Wo rk) [address] [phone] Social History Tobacco Use Types Packs/Day Years Used Date Smoking Tobacco: Former Smokeless Tobacco: Never Comments: Very Occasional Alcohol Use Standard Drinks/Week Comments Yes 0 (1 standard drink = 0.6 oz pure 1 TIME A a week(1 glass of wine) 1 alcohol) qo weekend Sex Assigned at Date Recorded Not on file documented as of this encounter Miscellaneous Notes Telephone Encounter - Kenneth Couch MD - 12/18/2015 11:54 AM CDT Sx and labs is much more consistent with stone than infection - no real role for abx in stone. Will discuss with pt at visit. Kenneth Couch MD Telephone Encounter - Suyapa Terrell RN - 12/18/2015 11:18 AM CDT FYI for Dr. Couch: pt scheduled with you today at 2:45 Pt calling to follow up on her UC visit from 12/16/15 (Hematuria). Pt states she was advised to start on Cipro, but Rx was never sent to her pharmacy.Pt states she is experiencing flank pain today. Pt denies blood in the urine, weakness/dizziness/fainting, N/V, diarrhea, bleeding from nose, gums or easy bruising, diarrhea, abdominal pain, obstructive voiding symptoms, supra-pubic/pelvic pain. Fever unknown, states she hasn't checked but doesn't feel warm - will check at work 12/16/15 URGENT CARE FOLLOW-UP PLAN: 1.?? Follow-up immediately in ER if any increase in your temperature, flank pain, obstructive voiding symptoms (ie difficulty emptying your bladder), N/V/D, increased low-back discomfort or any supra-pubic/pelvic pain or abdominal pain. 2.?? Strain your urine to see if you can catch a stone 3.?? Push plain, non-carbonated, water 4.?? Start the antibiotics I prescribed (Cipro) 5.?? You absolutely need follow-up with your primary care doctor (Dr. Roland)?? Friday or your urologist due to the large volume blood in your urine.?? In my opinion, at a minimum, you need a CT scan for evaluation. Pt aware of UC follow up plan. Pt has not scheduled follow up appointment. States she currently doesnot have a urologist, was seen by a urologist but was years ago. Huddled with Dr. Roland - advised to have patient follow up today in clinic for further evaluation/treatment. Scheduled with Dr. Couch today at 2:45. Advised pt with any new or worsening symptoms to return call to clinic. Pt verbalized understanding of reasons to be seen in the ER. Pt expressed understanding and acceptance of the plan. Pt had no further questions at this time. Advised can call back to clinic at any time with concerns. Aide Terrell, RN, BSN documented in this encounter Plan of Treatment Not on filedocumented as of this encounter Visit Diagnoses Not on filedocumented in this encounter Additional Health Concerns Assessment Noted Time PHQ-9 Depression Total Score: 4 09/02/2015 7:59 AM CDT documented as of this encounter Care Teams Natural Sciences Department Chair Relationship Specialty Start Date End Date Esmer Roland MD PCP - General Family Practice 09/21/10 01/29/17 documented as of this encounter
--- OUTSIDE RECORDS SUMMARY | 2022-04-11 21:44 | XMS_ITS | Encounter Summary ---
:1975 Author Organization [place] Address [address] [facility] [place] [address] Care Team Providers Name Role Phone Esmer Roland MD Primary Care Provider Reason for Visit Reason Onset Date Comments Schedule Surgery 07/20/2015 Encounter Details Date Type Department Care Team Description 07/20/2015 Telephone [facility] Women's Jeimy Christensen, Schedule Surgery Clinic [place] [address] [place] [place] [address] [facility] [address] [place] [phone] (Wo rk) Social [...] Notes Telephone Encounter - Airam Billy - 07/21/2015 11:47 AM CST Patient has a nurse appointment on 07/27/15 at 8:30 to sign the sterilization consent. Surgery: LAPAROSCOPIC BILATERAL TUBAL LIGATION WITH SALPINGECTOMY, UTERINE ABLATION WITH NOVASURE Date: 09/26/15 Time: 7:30 AM Hospital: [facility] Patient advised of the following: The surgery center will contact you prior to surgery to discuss any pre op instructions. Contact your insurance company to see if a prior authorization or second opinion is needed. Please schedule a pre op appointment with your primary physician within 7 days of surgery. No aspirin or Ibuprofen 10 days prior to surgery. Make arrangements to have someone drive you home from the hospital. Surgery specific and surgery center information mailed to patient. Information was placed on the surgery calendar in [place]. LESOFT DEVELOPER Telephone Encounter - Airam Billy - 07/20/2015 2:46 PM CST Left message for patient to return the call. Patient will need to schedule a nurse only appointment to sign the Sterilization Consent form. LESOFT DEVELOPER Telephone Encounter - Airam Billy - 07/20/2015 2:45 PM CST Surgeon:JEIMY CHRISTENSEN Assist: Yes, if ruddy available Location: [facility] Date/time preference: September (prefers or ) Surgery: Laparoscopic bilateral tubal ligation with salpingectomy, uterine ablation with novasure Please have rep available Length of Surgery: 1.5 hours Diagnosis: Menorrhagia, multiparity desires permanent Anesthesia type: GENERAL Special instructions / equipment: Am admit or same day: SAME DAY Bowel prep: No Pre op: PCP Office visit with surgeon prior to surgery: No LESOFT DEVELOPER documented in this encounter Plan of Treatment Not on filedocumented as of this encounter Visit Diagnoses Not on filedocumented in this encounter Additional Health Concerns Assessment Noted Time PHQ-9 Depression Total Score: 12 06/17/2015 7:51 AM CS T documented as of this encounter Care Teams Instructor Nurse Relationship Specialty Start Date End Date Esmer Roland MD PCP - General Family Practice 09/21/10 01/29/17 documented as of this encounter
--- OUTSIDE RECORDS SUMMARY | 2022-04-11 21:44 | XMS_ITS | Encounter Summary ---
:1975 Author Organization [place] Address [address] [facility] [place] [address] Care Team Providers Name Role Phone Esmer Roland MD Primary Care Provider [phone] Reason for Visit Reason Comments Pre-Op Exam Encounter Details Date Type Department Care Team Description 09/01/2015 Office Visit [facility] Esmer Roland Preop g eneral physical exam (Primary Dx); Clinic Sara Byrd MD Abnormal uterine bleeding; [place] [address] [address] Major depressive disorder, recurrent epi sode, mild [address], [address] [place] [address] [place], [place] [phone] (Wo rk) [address] [phone] Social History Tobacco Use Types Packs/Day Years [...] Reading Time Taken Comments Blood Pressure 118/70 09/01/2015 9:36 AM CDT Pulse 108 09/01/2015 9:36 AM CDT Temperature 36.7 ??C (98.1 ??F) 09/01/2015 9:36 AM CDT Respiratory Rate 16 09/01/2015 9:36 AM CDT Oxygen Saturation 95% 09/01/2015 9:36 AM CDT Inhaled Oxygen Concentration - - Weight 107 kg (235 lb 14.4 oz) 09/01/2015 9:36 AM CDT Height - - Body Mass Index 38.08 07/20/2015 1:49 PM 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 Call [...] bed. documented in this encounter Progress Notes Esmer Roland MD - 09/01/2015 9:35 AM CDT [address], [address] [facility] [address] Dept: [phone] PRE-OP EVALUATION: Today's date: 09/01/2015 Dariana Osman (: 1975) presents for pre-operative evaluation assessment as requested by Dr. Gutierrez. She requires evaluation and anesthesia risk assessment prior to undergoing surgery/procedure for treatment of very heavy periods. Proposed procedure: ablation and Tubal Date of Surgery/ Procedure: 09/26/15 Time of Surgery/ Procedure: unknown Hospital/Surgical Facility: [facility] Fax number for surgical facility: Primary Physician: Esmer Roland Type of Anesthesia Anticipated: to be determined Patient has a Health Care Directive or [...] any chance that you may be ? Melissa Leal CMA HPI: Brief HPI related to upcoming procedure: She has a long history of heavy bleeding during her menstrual periods. She is on control and is having periods once a month but these are irregular in length. She has a lot of crampy abdominal pain with the heavy bleeding. In the past she has tried an IUDto help with the bleeding, however she has problems with the IUD and had to take it out. She has been followed by Dr. oDoley at [facility] for this. They have evaluated it with blood work and an US. US showed a normal pelvic US other than a simple right ovarian cyst. Lab work has been unremarkable. They planned for a endometrial ablation and tubal ligation. She had a cold around 2 weeks ago, this resolved completely and she is feeling well. Her anxiety anddepression have been doing well recently and thinks her current dose is doing well. She does note sometimes having leg swelling at night. She denies chest pain, shortness of breath, abdominal pain, n/v, diarrhea, fever, chills. See problem list for active medical problems. Problems all longstanding and stable, except as noted/documented. See ROS for pertinent symptoms related to these conditions. . MEDICAL HISTORY: Patient Active Problem List Diagnosis Date Noted ??? obesity due to excess calories (HCC) 06/16/2015 Priority: Medium ??? Major depressive disorder, recurrent episode, mild (HCC) 06/16/2015 Priority: Medium ??? Family history of thyroid disease in father 07/08/2014 Priority: Medium ??? BMI 34.0-34.9,adult 07/08/2014 Priority: Medium ??? Abnormal Pap smear, can't excl hi gd sq intraepithelial lesion (ASC-H) 11/23/2012 Priority: Medium 11/23/12 ASC-H. 12/25/12 [place]= BRIGID 2. Referred to Ob~Sawmill Or Timber Yard Worker, Dr. Christensen 02/18/13 LEEP= Negative, R/P pap in 6 and 12 months. Due 08/2013 and 02/201410/01/13 Dx pap= Normal. Repeat co-testing in 6 months. 06/27/14 [facility] Pap= Normal, Neg HPV. 1 yr co-testing per guidelines. ??? Obesity 03/11/2012 Priority: Medium ??? Abnormal uterine bleeding 11/09/2010 Priority: Medium ??? CARDIOVASCULAR SCREENING; LDL GOAL LESS THAN 160 04/08/2010 Priority: Medium ??? Vitamin D Deficiency 10/24/2009 Priority: Medium ??? Insomnia 05/19/2008 Priority: Medium ??? Anxiety state Priority: Medium Problem list name updated by automated process. Provider to review Past Medical History Diagnosis Date ??? Calculus [...] ??? Orthopedic surgery Arthoscopy on right ankle Current Outpatient Prescriptions Medication Sig Dispense Refill ??? DULoxetine (CYMBALTA) 30 MG capsule Take 3 capsules (90 mg) by mouth daily 90 capsule 5 ??? ALPRAZolam (XANAX) 0.5 MG tablet Take 1 tablet (0.5 mg) by mouth nightly as needed for anxiety 20 tablet 0 OTC products: She does take Naproxen for back pain and headaches every few days. Allergies Allergen Reactions ??? Codeine Sensitivity, was a young child, passed out. Has had since then and had no problems with it. Yuliya Richard MA 04/01/14 Latex Allergy: NO History Substance Use Topics ??? Smoking status: Former Smoker ??? Smokeless tobacco: Never Used Comment: Very Occasional ??? Alcohol Use: Yes Comment: 1 TIME A a week(1 glass of wine) 1 qo weekend History Drug Use No REVIEW OF SYSTEMS: C: NEGATIVE for fever, chills, change in weight E: NEGATIVE for vision changes or irritation E/M: NEGATIVE for ear, mouth and throat problems R: NEGATIVE for significant cough or SOB CV: NEGATIVE for chest pain, palpitations or peripheral edema GI: NEGATIVE for nausea, abdominal pain, heartburn, or change in bowel habits : NEGATIVE for frequency, dysuria, or hematuria M: NEGATIVE for significant arthralgias or myalgia N: NEGATIVE for weakness, dizziness or paresthesias E: NEGATIVE for temperature intolerance, skin/hair changes H: NEGATIVE for bleeding problems P: NEGATIVE for changes in mood or affect EXAM: BP 118/70 mmHg Pulse 108 Temp(Src) 98.1 ??F (36.7 ??C) (Oral) Resp 16 Wt 235 lb 14.4 oz (107.004 kg) SpO2 95% LMP 08/20/2015 GENERAL APPEARANCE: healthy, alert and no distress EYES: EOMI,- PERRL HENT: ear canals and TM's normal and nose and mouth without ulcers or lesions NECK: no adenopathy, no asymmetry, masses, or scars and thyroid normal to palpation RESP: lungs clear to auscultation - no rales, rhonchi or wheezes CV: regular rates and rhythm during my exam, normal S1 S2, no S3 or S4 [...] appears normal. and affect normal/bright LYMPHATICS: No cervical or supraclavicular nodes DIAGNOSTICS: Labs Drawn and in Process: Unresulted Labs Ordered in the Past 30 Days of this Admission No orders found from 07/04/2015 to 09/02/2015. Recent Labs Lab Test 06/16/15 0831 07/08/14 1036 04/01/14 1105 10/01/13 1013 12/30/10 1325 HGB 14.2 -- 14.4 13.4 < > 12.9 PLT 292 -- -- 300 < > 230 INR -- -- -- -- -- 0.91 NA 140 139 -- 138 < > 140 POTASSIUM 4.4 4.8 -- 4.3 < > 4.0 CR 0.94 0.81 -- 0.88 < > 0.77 < > = values in this interval not displayed. IMPRESSION: Reason for surgery/procedure: Abnormal Uterine Bleeding Diagnosis/reason for consult: clearance The proposed surgical procedure is considered LOW risk. REVISED CARDIAC RISK INDEX The patient has the following serious cardiovascular risks for perioperative complications such as (VA, PE, VFib and 3?? AV Block): No serious cardiac risks INTERPRETATION: 0 risks: Class I (very low risk - 0.4% complication rate) The patient has the following additional risks for perioperative complications: No identified additional risks ICD-10-CM 1. Preop general physical exam Z01.818 CBC with platelets 2. Abnormal uterine bleeding N93.9 3. Major depressive disorder, recurrent episode, mild (HCC) F33.0 DULoxetine (CYMBALTA) 30 MG capsule RECOMMENDATIONS: --Approval given to proceed with proposed procedure, without further diagnostic evaluation Signed Electronically by: Esmer Roland MD Copy of this evaluation report is provided to requesting physician. [place] Preop Guidelines documented in this encounter Nursing Notes Melissa Leal CMA - 09/01/2015 9:45 AM CDT Chief Complaint Patient presents with ??? Pre-Op Exam Initial BP 118/70 mmHg Pulse 108 Temp(Src) 98.1 ??F (36.7 ??C) (Oral) Resp 16 Wt 235 lb 14.4oz (107.004 kg) SpO2 95% LMP 08/20/2015 Estimated body mass index is 38.09 kg/(m^2) as calculated from the following: Height as of 16: 5' 6 (1.676 m). Weight as of this encounter: 235 lb 14.4 oz (107.004 kg). BP completed using cuff size large RIGHT arm. Melissa Leal CMA documented in this encounter Plan of Treatment Not on filedocumented as of this encounter Procedures Procedure Name Priority Date/Time Associated Diagnosis Comme nts CBC WITH PLATELETS Routine 09/01/2015 10:28 AM Preop general R esults for this CDT physical exam procedure are in the results section. documented in this encounter Results CBC with platelets (09/01/2015 10:28 AM CDT) athologist Signature WBC 9.0 4.0 - 11.0 [place] 10e9/L [facility] RBC Count 5.08 3.8 - 5.2 [place] 10e12/L [facility] Hemoglobin 15.1 11.7 - [place] 15.7 g/dL [facility] Hematocrit 45.3 35.0 - [place] 47.0 % [facility] MCV 89 78 - 100 [facility] MCH 29.7 26.5 - [place] 33.0 pg [facility] MCHC 33.3 31.5 - [place] 36.5 g/dL [facility] RDW 12.5 10.0 - [place] 15.0 % [facility] Platelet Count 367 150 - 450 [place] 10e9/L [facility] Specimen Anatomical Collection Method Collection Time Receive d Time (Source) Location / / Volume Laterality Blood specimen 09/01/2015 10:28 6 (specimen) AM CDT 10:33 AM CDT Esmer Roland MD LAB - BLOOD ORDERABLES Performing Organization Address City/State/ZIP Code Phon e Number [place] [address] documented in this encounter Visit Diagnoses Diagnosis Preop general physical exam - Primary Other specified pre-operative examinatio n Abnormal uterine bleeding Unspecified disorder of menstruation and other abnormal bleeding from female genital tract Major depressive disorder, recurrent epi sode, mild (H) Major depressive disorder, recurrent epi sode, mild documented in this encounter Additional Health Concerns Assessment Noted Time PHQ-9 Depression Total Score: 4 09/02/2015 7:59 AM CDT documented as of this encounter Care Teams [employer] Advisor Relationship Specialty Start Date End Date Esmer Roland MD PCP - General Family Practice 09/21/10 01/29/17 documented as of this encounter
--- OUTSIDE RECORDS SUMMARY | 2022-04-11 21:44 | XMS_ITS | Encounter Summary ---
:1975 Author Organization [place] Address [address] [place] [address] Care Team Providers Name Role Phone Esmer Roland MD Primary Care Provider [phone] Reason for Visit Reason Comments ER F/U Urgent care follow up 12/16/15 Encounter Details Date Type Department Care Team Description 12/18/2015 Office Visit [facility] Kenneth Couch Dysuria ( Primary Dx); Clinic Sara Booth MD Chronic migraine without aura without st atus migrainosus, not intractable [place] [address] [facility], [address] [place] [address] [place], [place] [phone] (Wo rk) [address] [phone] Social History Tobacco Use Types Packs/Day Years [...] Sign Reading Time Taken Comments Blood Pressure 120/64 12/18/2015 2:55 PM CDT Pulse 56 12/18/2015 2:55 PM CDT Temperature 36.9 ??C (98.5 ??F) 12/18/2015 2:55 PM CDT Respiratory Rate 10 12/18/2015 2:55 PM CDT Oxygen Saturation 97% 12/18/2015 2:55 PM CDT Inhaled Oxygen Concentration - - Weight 106.3 kg (234 lb 6.4 oz) 12/18/2015 2:55 PM CDT Height 167.6 cm (5' 6) 12/18/2015 2:55 PM CDT Body Mass Index 37.83 12/18/2015 2:55 PM CDT documented in this encounter Progress Notes Alanis Clark - 12/18/2015 2:58 PM CDT Chief Complaint Patient presents with ??? ER F/U Urgent care follow up 12/16/15 Initial BP 120/64 mmHg Pulse 56 Temp(Src) 98.5 ??F (36.9 ??C) (Oral) Resp 10 Ht 5' 6 (1.676m) Wt 234 lb 6.4 oz (106.323 kg) BMI 37.85 kg/m2 SpO2 97% Estimated body mass index is 37.85 kg/(m^2) as calculated from the following: Height as of this encounter: 5' 6 (1.676 m). Weight as of this encounter: 234 lb 6.4 oz (106.323 kg). BP completed using cuff size: large Alanis Clark SMA Kenneth Couch MD - 12/18/2015 11:32 AM CDT HPI SUBJECTIVE: Dariana Osman is a 40 year old female who presents to clinic today for the following health issues: ED/UC Followup: Facility: [facility] Date of visit: 12/16/15 Reason for visit: hematuria Current Status: never given rx for abx. Still having urgency and burning with urination and some back pain. No longer having blood in urine. Has been having some TOD back pain and urgency (but is increasing H2O significantly). No alfredito hematuria, no dysuria, fever, n/v. Does have significant history of kidney stones, s/p lithotripsy approx 2004. Has been straining, no sign of stone. Meds reviewed. Review of Systems Constitutional: Negative for fever. Gastrointestinal: Negative. Genitourinary: Positive for urgency, hematuria and flank pain. Negative for dysuria and frequency. Musculoskeletal: Positive for back pain. Physical Exam Constitutional: She is oriented to person, place, and time and well-developed, well-nourished, and in no distress. Eyes: Conjunctivae and EOM are normal. Cardiovascular: Normal rate, regular rhythm and normal heart sounds. Pulmonary/Chest: Effort normal and breath sounds normal. Abdominal: Soft. Bowel sounds are normal. There is no tenderness. There is no rebound and no guarding. Musculoskeletal: She exhibits no edema. Neurological: She is alert and oriented to person, place, and time. Skin: Skin is warm and dry. Vitals reviewed. (R30.0) Dysuria (primary encounter diagnosis) Comment: Today's UA still not absolute for UTI, but much closer than two days ago. I still think she's either working onor just passed a small stone. Printed rx for PRN within the next 48h Plan: *UA reflex to Microscopic, Urine Microscopic, sulfamethoxazole-trimethoprim (BACTRIM DS,SEPTRA DS) 800-160 MG per tablet (G43.709) Chronic migraine without aura without status migrainosus, not intractable Comment: Plan: MIGRAINE ACTION PLAN RTC in 1w Kenneth Couch MD documented in this encounter Plan of Treatment Not on filedocumented as of this encounter Procedures Procedure Name Priority Date/Time Associated Comments Diagnosis URINE MICROSCOPIC Routine 12/18/2015 2:49 PM Dysuria Resu lts for this CDT procedure are i n the results section. UA MACROSCOPIC WITH Routine 12/18/2015 2:49 PM Dysuria Re sults for this REFLEX TO MICRO CDT procedure ar e in the results section. documented in this encounter Results (ABNORMAL) Urine Microscopic (12/18/2015 2:49 PM CDT) [facility] Method Time Signature WBC Urine 10-25 (A) 0 - 2 [facility] RBC Urine 2-5 (A) 0 - 2 [facility] Hyaline Casts 2-5 (A) 0 - 2 [facility] Squamous Few FEW /LPF [place] Epithelial [facility]INICS /LP[facility] Urine [place] Bacteria Urine Moderate (A) NEG /HPF [facility] Mucous Urine Present (A) NEG /LPF [facility] Specimen Anatomical Collection Method Collection Time Receive d Time (Source) Location / / Volume Laterality 12/18/2015 2:49 PM 6 2:50 CDT PM CDT Kenneth Couch MD LAB - URINE ORDERABLES Performing Organization Address [facility]/ZIP Code Phon e Number [facility] [place] [place] [address] (ABNORMAL) *UA reflex to Microscopic (12/18/2015 2:49 PM CDT) [facility] gist Method Time Signature Color Urine Yellow [facility] Appearance Urine Clear [facility] Glucose Urine Negative NEG mg/dL [facility] Bilirubin Urine Negative NEG [facility] Ketones Urine Negative NEG mg/dL [facility] Specific [place] 1.025 1.003 - [place] Urine 1.035 [facility] Blood Urine Negative NEG [facility] pH Urine 5.0 5.0 - 7.0 [place] pH [facility] Protein Albumin Negative NEG mg/dL [place] Urine [facility] Urobilinogen 0.2 0.2 - 1.0 [place] Urine EU/dL [facility] Nitrite Urine Negative NEG [facility] Leukocyte Trace (A) NEG [place] Esterase Urine [facility] Source Midstream [place] Urine [facility] Specimen Anatomical Collection Method Collection Time Receive d Time (Source) Location / / Volume Laterality Urine specimen 12/18/2015 2:49 PM 016 2:50 (specimen) CDT PM CDT Kenneth Couch MD LAB - URINE ORDERABLES Performing Organization Address City/[facility]/ZIP Code Phon e Number [facility] [place] [address] documented in this encounter Visit Diagnoses Diagnosis Dysuria - Primary Chronic migraine without aura without st atus migrainosus, not intractable Chronic migraine without aura, without m ention of intractable migraine without mention of status migrainosus documented in this encounter Additional Health Concerns Assessment Noted Time PHQ-9 Depression Total Score: 4 09/02/2015 7:59 AM CDT documented as of this encounter Care Teams Work Environment Safety Inspector Relationship Specialty Start Date End Date Esmer Roland MD PCP - General Family Practice 09/21/10 01/29/17 documented as of this encounter
[2022-04-11 21:45] LABS: Alanine Aminotransferase* 23 U/L (4-35); Alkaline Phosphatase* 54 U/L (40-150); Aspartate Amino Transferase* 24 U/L (12-35); Bilirubin Total* 0.3 mg/dL (0.1-1.5); Blood Urea Nitrogen* 13 mg/dL (5-24); Calcium* 9.5 mg/dL (8.4-10.6); Carbon Dioxide* 21 mmol/L (20-32); Glucose* 103 mg/dL (60-115); Lipase* 144 U/L (23-300); Total Protein* 7.2 g/dL (6.0-8.3)
[2022-04-11] MEDS: KETOROLAC 30 MG/ML inj IVP (21:45)
--- OUTSIDE RECORDS SUMMARY | 2022-04-11 21:45 | XMS_ITS | Encounter Summary ---
:1975 Author Organization [place] Address [address] [facility] [place] [address] Care Team Providers Name Role Phone Esmer Roland MD Primary Care Provider [phone] Reason for Visit Reason Onset Date Comments Refill Request 02/18/2013 Escitalopram 20, Phe ntermine, Zolpidem Encounter Details Date Type Department Care Team Description 02/18/2013 Refill [facility] Esmer Roland Refill Request Clinic Safford MD [place] (Escitalopram 20, [address] [place] [address] Phentermine, Zolpidem) [place], [place] [id number] [phone] Social History Tobacco Use Types Packs/Day Years [...] she wanted the prescriptions to go to [facility]. RX's faxed to pharmacy. Mayela Hugh, RN Telephone Encounter - Esmer Roland MD - 02/19/2013 11:59 AM CDT Sent to [facility] and printed Telephone Encounter - Elva Grissom - 02/18/2013 3:38 PM CDT Escitalopram Last Fill Date: 01/25/13 Last Fill Quantity: 30 Last Office Visit: 12/25/12 Phentermine Last Fill Date: 01/06/13 Last Fill Quantity: 30 Last Office Visit: 12/25/12 Zolpidem Last Fill Date: 08/13/12 Last Fill Quantity: 90 Last Office Visit: 12/25/12 Elva Grissmo, [employer] [address] [place] [address] documented in this encounter Plan of Treatment Not on filedocumented as of this encounter Visit Diagnoses Diagnosis Major Depress Dis, Severe - Primary Major depressive disorder, single episod e, severe, without mention of psychotic behavior Obesity Obesity, unspecified Insomnia Insomnia, unspecified documented in this encounter Care Teams Wire Roller Relationship Specialty Start Date End Date Esmer Roland MD PCP - General Family Practice 09/21/10 01/29/17 documented as of this encounter
--- OUTSIDE RECORDS SUMMARY | 2022-04-11 21:45 | XMS_ITS | Encounter Summary ---
:1975 Author Organization [place] Address [address] [facility] [place] [address] Care Team Providers Name Role Phone Esmer Roland MD Primary Care Provider [phone] Reason for Visit Reason Comments Refill Request (6) months of refills. Recheck Medication Depression Increase the dose on the DIPIKA APRO. Encounter Details Date Type Department Care Team Description 04/02/[address] [facility] Esmer Roland Insomni a (Primary Dx); Clinic Sara Byrd MD Obesity; [place] [address] Need for prophylactic vaccination and in oculation against influenza; Road, [address] [place], [place] ANXIETY STATE NOS; [place] [address] Major Depress Dis, Severe [id number] Social History [...] Panic / Manic symptoms: Yes- anxiety PHQ-9 [place] PHQ-9 Any Language ?? Amount of exercise [...] Plan: See Patient Instructions Esmer Roland MD [facility] documented in this encounter Nursing Notes 04/02/2013 [...] behavior documented in this encounter Care Teams Nsh Teacher Relationship Specialty Start Date End Date Esmer Roland MD PCP - General Family Practice 09/21/10 01/29/17 documented as of this encounter
--- OUTSIDE RECORDS SUMMARY | 2022-04-11 21:45 | XMS_ITS | Encounter Summary ---
:1975 Author Organization [place] Address [address] [place] [address]. [place] [address] Care Team Providers Name Role Phone Esmer Roland MD Primary Care Provider [phone] Reason for Visit Reason Onset Date Comments Call To Schedule Appointment 09/22/2013 Pap due 08/08 014 Encounter Details Date Type Department Care Team Description 09/22/2013 Telephone [facility] Esmer Roland Call To Schedule Clinic Sara Byrd MD Appointment (Pap due [facility], [address] [place] [address] 08/2013) [address] [place] [address] [place], [place] [phone] (Wo rk) [address] [phone] Social History Tobacco Use Types Packs/Day Years [...] Sridevi Magallon RN Telephone Encounter - Mayela eRese RN - 09/22/2013 2:00 PM CDT 11/23/12 ASC-H. Colposcopy scheduled 12/25/12 02/18/13 LEEP= Negative, R/P pap in 6 and 12 months. Due 08/2013 and 02/201409/22/2013 No pap done. Will send Stand In message. Will post pone x 3 weeks. documented in this encounter Plan of Treatment Not on filedocumented as of this encounter Visit Diagnoses Diagnosis Abnormal Pap smear, can't excl hi gd sq intraepithelial lesion (ASC-H) - Primary Papanicolaou smear of cervix with atypic al squamous cells cannot exclude high grade squamous intraepithelial lesion (ASC-H) documented in this encounter Care Teams Doctor Of Chiropractic Relationship Specialty Start Date End Date Esmer Roland MD PCP - General Family Practice 09/21/10 01/29/17 documented as of this encounter
--- OUTSIDE RECORDS SUMMARY | 2022-04-11 21:45 | XMS_ITS | Encounter Summary ---
:1975 Author Organization [place] Address [address] [place] [address] Care Team Providers Name Role Phone Esmer Roland MD Primary Care Provider [phone] Reason for Visit Reason Onset Date Comments Prior Authorization 01/05/2014 Escitalopram needs P A Encounter Details Date Type Department Care Team Description 01/05/2014 Telephone [facility] Esmer Roland Prior A uthorization Clinic Sara Byrd MD ([place]op[place] needs [place]) [address] [address] [address] [facility], [address] [place] [address] [place], [place] [phone] (Wo rk) [address] [phone] Social History Tobacco Use Types Packs/Day Years [...] to begin the process Her ID is [id number] Thank you! documented in this encounter Plan of Treatment Not on filedocumented as of this encounter Visit Diagnoses Not on filedocumented in this encounter Care Teams Fuel Handler Relationship Specialty Start Date End Date Esmer Roland MD PCP - General Family Practice 09/21/10 01/29/17 documented as of this encounter
--- OUTSIDE RECORDS SUMMARY | 2022-04-11 21:45 | XMS_ITS | Encounter Summary ---
:1975 Author Organization [place] Address [facility] [place] [address] Care Team Providers Name Role Phone Esmer Roland MD Primary Care Provider [phone] Reason for Visit Reason Onset Date Comments Formulary Issue 07/23/2013 pa on lexapro Encounter Details Date Type Department Care Team Description 07/23/2013 Telephone [facility] Esmer Roland Formula ry Issue (pa on Clinic [place] lexapro) [address] [place] [address] 5 5068 [id number] [phone] Social History Tobacco Use Types Packs/Day Years [...] Pa for Lexapro (generic) was approved through [employer] [facility] from 06/23/13 - 07/23/14 Mechelle R PROCESSING SPECIALIST documented in this encounter Plan of Treatment Not on filedocumented as of this encounter Visit Diagnoses Not on filedocumented in this encounter Care Teams Machine Ironer Relationship Specialty Start Date End Date Esmer Roland MD PCP - General Family Practice 09/21/10 01/29/17 documented as of this encounter
--- OUTSIDE RECORDS SUMMARY | 2022-04-11 21:45 | XMS_ITS | Encounter Summary ---
:1975 Author Organization [place] Address [address] [facility] 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 Jeimy Christensen DO Obstetrics and Gynecology [facility] documented in this encounter Progress Notes [...] Dr. Jeimy Christensen DO Obstetrics and Gynecology [facility] documented in this encounter Nursing Notes 02/18/2013 1:45 PM CDT >> MARY DIEGO [facility] Feb 18, 2013 3:40 PM 2% Xylocaine with epinephrine used for cervical block. Lot: [id number] Exp: 12/20 Mary Diego SHOE DRESSER >> MARY DIEGO [facility] Feb 18, 2013 2:04 PM Patient [...] completed using cuff size: large Mary Diego SHOE DRESSER documented in this encounter Plan of Treatment [...] Component Value Ref Test Analysis Performed At [facility] Method Time Signature Copath Report Patient Name: DARIANA VALDEZ MR#: [id number] Specimen #: [id number] Collected: 02/18/2013 Received: 02/19/2013 Reported: 02/22/2013 13:15 [...] is identified. KARLEE/liseth 02-22-13 TESTING LAB LOCATION: [address] ??[id number] COLLECTION SITE: Client: [facility] Location: RIOB (R) Specimen Anatomical Collection Method Collection Time Receive d Time (Source) Location / / Volume Laterality 02/18/2013 3:00 PM 3 7:12 CDT AM CDT Jeimy Christensen [facility] Performing Organization Address City/State/ZIP Code [...] cervix documented in this encounter Care Teams Engineering Lab Technician Relationship Specialty Start Date End Date Fawad Roland MD PCP - General Family Practice 09/21/10 01/29/17 documented as of this encounter
--- OUTSIDE RECORDS SUMMARY | 2022-04-11 21:45 | XMS_ITS | Encounter Summary ---
:1975 Author Organization [place] Address [address] [place] [address]. [place] [address] Care Team Providers Name Role Phone Esmer Roland MD Primary Care Provider [phone] Reason for Visit Reason Onset Date Comments Refill Request 09/22/2012 Phentermine 37.5mg Encounter Details Date Type Department Care Team Description 09/22/2012 Refill [facility] Esmer Roland Refill Request Clinic Sara Byrd MD (Phentermine 37.5mg) [address] [facility], [address] [place] [address] [address] [place] [address] [place], [place] [phone] (Wo rk) [address] [phone] Social History Tobacco Use Types Packs/Day Years [...] unspecified documented in this encounter Care Teams Supervisor Hard Candy Relationship Specialty Start Date End Date Esmer Roland MD PCP - General Family Practice 09/21/10 01/29/17 documented as of this encounter
--- OUTSIDE RECORDS SUMMARY | 2022-04-11 21:45 | XMS_ITS | Encounter Summary ---
:1975 Author Organization [place] Address [address] [place] [address] Care Team Providers Name Role Phone Esmer Roland MD Primary Care Provider [phone] Reason for Referral Consultation - Closed Specialty Diagnoses / Procedures Referred By Contact Refer red To Contact Diagnoses Large breasts Upper back pain Esmer Roland [facility] [address] [facility], [address] [address] [place] [address] [place] [address] Phone: [phone] Referral ID Status Reason Start Date Expiration Date Visits Requ ested Visits Authorized [id number] Closed 07/23/2013 01/19/2014 1 1 ENSATION VICE PRESIDENT Reason for Visit Reason Comments Consult discuss surgery options Encounter Details Date Type Department Care Team Description 07/23/2013 Office Visit [facility] Esmer Roland b ack pain (Primary Dx); Clinic Sara Byrd MD Large breasts; [id number] [place], [place] [address] [address] MICHELLE MONCADA Abnormal uterine bleeding; Road, [address] [place] [address] Insomnia; [place] [phone] (Wo rk) [place] [address] [phone] Social History Tobacco Use Types Packs/Day Years [...] Comments Blood Pressure 114/80 07/23/2013 9:09 AM COMPENSATION VICE PRESIDENT Pulse 89 07/23/2013 9:09 AM COMPENSATION VICE PRESIDENT Temperature 37.2 ??C (99 ??F) 07/23/2013 9:09 AM COMPENSATION VICE PRESIDENT Respiratory Rate 16 07/23/2013 9:09 AM COMPENSATION VICE PRESIDENT Oxygen Saturation 96% 07/23/2013 9:09 AM COMPENSATION VICE PRESIDENT Inhaled Oxygen Concentration - - Weight 92.1 kg (203 lb) 07/23/2013 9:09 AM COMPENSATION VICE PRESIDENT Height - - Body Mass Index 32.03 04/02/2013 9:08 AM CDT documented in this encounter Progress Notes Esmer Roland MD - 07/23/2013 9:05 AM CST SUBJECTIVE: Dariana Osman is a 37 year old female who presents to clinic today for the following health issues: DISCUSS SURGERY OPTIONS Taking aleve for mid and upper back pain, 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 Has large breasts, and 42 DDD and [...] list, Allergies, and Medical/Social/Surgical histories reviewed in [facility] andupdated as appropriate. ROS: C: NEGATIVE [...] 2 weeks recheck phentermine Esmer Roland MD [facility] ENSATION VICE PRESIDENT documented in this encounter Nursing Notes 07/23/2013 9:00 AM CST >> RIC PARR Fri Jul 23, 2013 9:13 AM Patient presents with: Consult - discuss surgery options Initial BP 114/80 Pulse 89 Temp 99 ??F (37.2 ??C) (Oral) Resp 16 Wt 203 lb (92.08 kg) LaQ420% Estimated Body mass index is 32.05 kg/(m^2) [...] unspecified documented in this encounter Care Teams Education Courses Sales Representative Relationship Specialty Start Date End Date Esmer Roland MD PCP - General Family Practice 09/21/10 01/29/17 documented as of this encounter
--- OUTSIDE RECORDS SUMMARY | 2022-04-11 21:45 | XMS_ITS | Encounter Summary ---
:1975 Author Organization [place] Address [address] [place] [address] Care Team Providers Name Role Phone Esmer Roland MD Primary Care Provider [phone] Reason for Visit Reason Comments Depression follow up med check Pre Visit Planning - Done aet mychart 07/27/12 Abnormal Uterine Bleeding breakthrough bleeding 3-5 da ys per month and after intercourse Encounter Details Date Type Department Care Team Description 07/31/2012 Office Visit [facility] Esmer Roland Clinic Sara Byrd MD ENCOUNTER--DISREGARD [place] [address] [facility] (Primary Dx) [facility], [address] [place] [address] [place], [place] [phone] (Wo rk) [address] [phone] Social History Tobacco Use Types Packs/Day Years [...] MD - 08/03/2012 10:05 AM CST error GER CASH documented in this encounter Plan of Treatment Not on filedocumented as of this encounter Visit Diagnoses Diagnosis ERRONEOUS ENCOUNTER--DISREGARD - Primary documented in this encounter Care Teams Soil Conservation Teacher Relationship Specialty Start Date End Date Esmer Roland MD PCP - General Family Practice 09/21/10 01/29/17 documented as of this encounter
--- OUTSIDE RECORDS SUMMARY | 2022-04-11 21:45 | XMS_ITS | Encounter Summary ---
:1975 Author Organization [place] Address [address] [facility] [place] [address] Care Team Providers Name Role Phone Esmer Roland MD Primary Care Provider [phone] Reason for Visit Reason Onset Date Comments Results 02/25/2013 Encounter Details Date Type Department Care Team Description 02/25/2013 Telephone [facility] Women[facility] Jeimy Christensen, Results [facility] [address] [place] [address] [facility] [address] [place] [address] [place] [address] [phone] Social History Tobacco Use Types Packs/Day Years [...] Jeimy Christensen DO Obstetrics and Gynecology [facility] - [place] [facility] [place] documented in this encounter Plan of Treatment Not on filedocumented as of this encounter Visit Diagnoses Diagnosis Vaginitis - Primary Vaginitis and vulvovaginitis, unspecifie d documented in this encounter Care Teams Civilian Technician Relationship Specialty Start Date End Date Esmer Roland MD PCP - General Family Practice 09/21/10 01/29/17 documented as of this encounter
--- OUTSIDE RECORDS SUMMARY | 2022-04-11 21:45 | XMS_ITS | Encounter Summary ---
:1975 Author Organization [place] Address [facility] [place] [address] Care Team Providers Name Role Phone Esmer Roland MD Primary Care Provider [phone] Encounter Details Date Type Department Care Team Description 06/04/2012 E-Visit [facility] Esmer Roland D epress Dis, Clinic Sara Byrd MD Severe (Primary Dx) [facility], [address] [place] [address] [address] [place] [address] [place], [place] [phone] (Wo rk) [address] [phone] Social History Tobacco Use Types Packs/Day Years [...] Esmer Roland MD - 06/11/2012 10:09 AM STATISTICIAN MATHEMATICAL Refills of paxil were sent over [facility] documented in this encounter Plan of Treatment Not on filedocumented as of this encounter Visit Diagnoses Diagnosis Major Depress Dis, Severe - Primary Major depressive disorder, single episod e, severe, without mention of psychotic behavior documented in this encounter Care Teams Bill Hiker Relationship Specialty Start Date End Date Esmer Roland MD PCP - General Family Practice 09/21/10 01/29/17 documented as of this encounter
--- OUTSIDE RECORDS SUMMARY | 2022-04-11 21:45 | XMS_ITS | Encounter Summary ---
:1975 Author Organization [place] Address [facility] [place] [address] Care Team Providers Name Role Phone Esmer Roland MD Primary Care Provider Reason for Visit Reason Onset Date Comments Refill Request 12/29/2012 Encounter Details Date Type Department Care Team Description 12/29/2012 Refill [facility] Esmer Roland, Refill Request Sara BANERJEE [address] [place] [address], [address] [place] [address] [address] [place] [address] [place] [address] [phone] Social History Tobacco Use Types Packs/Day Years [...] on filedocumented in this encounter Care Teams Administrative Resident Relationship Specialty Start Date End Date Esmer Roland MD PCP - General Family Practice 09/21/10 01/29/17 documented as of this encounter
--- OUTSIDE RECORDS SUMMARY | 2022-04-11 21:45 | XMS_ITS | Encounter Summary ---
:1975 Author Organization [place] Address [address] [place] [address] Care Team Providers Name Role Phone Esmer Roland MD Primary Care Provider [phone] Reason for Visit Reason Onset Date Comments Refill Request 07/16/2013 sola oconnell Encounter Details Date Type Department Care Team Description 07/16/2013 Refill [facility] Esmer Roland Refill Request (anish, [facility] MD sola Byrd) [address] [place] [address] [place] [id number] [phone] Social History Tobacco Use Types Packs/Day Years [...] 3:42 PM CST Both Rx's faxed to [facility] OR WINDOWS ENGINEER Telephone Encounter - Deidre Alas - 07/16/2013 12:03 PM CST LAST FILL DATE: ambien=02/19/13, phentermine=04/14/13 QTY: zolpidem=90, phentermine=30 Camilo Hammonds [facility] OR WINDOWS ENGINEER documented in this encounter Plan of Treatment Not on filedocumented as of this encounter Visit Diagnoses Diagnosis Insomnia - Primary Insomnia, unspecified Obesity Obesity, unspecified documented in this encounter Care Teams Environmental Engineering Intern Relationship Specialty Start Date End Date Esmer Roland MD PCP - General Family Practice 09/21/10 01/29/17 documented as of this encounter
--- OUTSIDE RECORDS SUMMARY | 2022-04-11 21:45 | XMS_ITS | Encounter Summary ---
:1975 Author Organization [place] Address [address] [facility] [place] [address] Care Team Providers Name Role Phone Fawad Roland MD Primary Care Provider [phone] Reason for Visit Reason Comments Physical Physical and Pap. Recheck Medication Patient has questions about the dosage of the phetermine. Refill Request Encounter Details Date Type Department Care Team Description 11/23/2012 [facility] Routine general medical examination at a health care facility (Primary Dx); Clinic Sara Byrd MD Obesity; [place] [address] [address]; [address], [address] [place] [address] Major Depress Dis, Severe [place], [place] [phone] (Wo rk) [address] [phone] Social History Tobacco Use Types Packs/Day Years [...] recommended All Histories reviewed and updated in [facility]. ROS: C: NEGATIVE for fever, chills, change [...] list, Allergies, and Medical/Social/Surgical histories reviewed in [facility] andupdated as appropriate. Labs reviewed in [facility] OBJECTIVE: BP 126/70 Pulse 70 Temp [...] lb 8 oz(92.307 kg). Fawad Roland MD [facility] documented in this encounter Nursing Notes 11/23/2012 [...] examination procedur e are in at a [facility] care the results facility section. WET PREPARATION Routine 11/23/2012 12:22 Routine general Resul ts for this PM CDT medical examination procedur e are in at a [facility] the results facility section. VITAMIN D DEFICIENCY Routine 11/23/2012 12:15 Routine general Results for this SCREENING PM CDT medical examination procedur e are in at a peoples hospital care the results facility section. TSH WITH FREE T4 Routine 11/23/2012 12:15 Routine general Resu lts for this REFLEX PM CDT medical examination procedur e are in at a peoples hospital care the results facility section. LIPID REFLEX TO DIRECT Routine 11/23/2012 12:15 Routine genera l Results for this LDL PANEL PM CDT medical examination procedur e are in at a peoples hospital care the results facility section. COMPREHENSIVE Routine 11/23/2012 12:15 Routine general Results for this METABOLIC PANEL PM CDT medical examination proce dure are in at a peoples hospital care the results facility section. CBC WITH PLATELETS Routine 11/23/2012 12:15 Routine general Re sults for this PM CDT medical examination procedur e are in at a peoples hospital care the results facility section. PAP IMAGED THIN LAYER Routine 11/23/2012 12:00 Routine general Results for this SCREEN AM CDT medical examination procedur e are in at a peoples hospital care the results facility section. documented in this encounter Results (ABNORMAL) Urine Microscopic (11/23/2012 12:24 PM CDT) Analysis Performed At Patho logist Time Signature WBC Urine 2-5 (A) 0 - 2 /HPF [facility] RBC Urine O - 2 0 - 2 /HPF [facility] Squamous Few FEW /LPF [place] Epithelial /LPF [facility] LAB Specimen Anatomical Collection Method Collection Time Receive d Time (Source) Location / / Volume Laterality 11/23/2012 12:24 11/23/2012 PM CDT 12:26 PM CDT Fawad Roland MD LAB - URINE ORDERABLES Performing Organization Address City/[facility]/ZIP Code Phon e Number [facility] [place], [place] [phone] [address] [id number] LAB (ABNORMAL) UA reflex to Microscopic and Culture (11/23/2012 12:24 PM CDT) [facility] Method Time Signature Color Urine Yellow [facility] Appearance Urine Clear [facility] Glucose Urine Negative NEG mg/dL [facility] Bilirubin Urine Negative NEG [facility] Ketones Urine Negative NEG mg/dL [facility] Specific [place] 1.015 1.003 - [place] Urine 1.[address] [facility] Blood Urine Trace (A) NEG [facility] pH Urine 7.5 (H) 5.0 - 7.0 [place] pH [facility] Protein Albumin Negative NEG mg/dL [place] Urine [facility] Urobilinogen 0.2 0.2 - 1.0 [place] Urine EU/dL [facility] Nitrite Urine Negative NEG [facility] Leukocyte Negative NEG [place] Esterase Urine [facility] Source Midstream [place] Urine [facility] Specimen Anatomical Collection Method Collection Time Receive d Time (Source) Location / / Volume Laterality Urine specimen 11/23/2012 12:24 3 (specimen) PM CDT 12:26 PM CDT Fawad Roland MD LAB - URINE ORDERABLES Performing Organization Address City/[facility]/ZIP Code Phon e Number [facility] [place] [address] [id number] [place], [place] [phone] LAB Chlamydia trachomatis PCR (11/23/2012 12:23 PM CDT) Component Value Ref Test Analysis Performed At [facility] Method Time Signature Specimen [place] Description [facility] Chlamydia Negative for C. trachomatis rRNA by foreign language professor mediated amplification. [facility] Trachomatis A negative result [...] MICRO GENERAL ORDERABL ES Performing Organization Address City/[facility] Code Phon e Number [address] [place] [address] LAB [facility] MICROBIOLOGY Neisseria gonorrhoeae PCR (11/23/2012 12:23 PM CDT) Component Value Ref Test Analysis Performed At [facility] Method Benavides Signature Specimen [place] Descrip [facility] N Gonorrhea Negative for N. gonorrhoeae rRNA by foreign language professor mediated amplification. [facility] PCR A negative result [...] MICRO GENERAL ORDERABL ES Performing Organization Address City/[facility] Phon e Number [address] [place] [address] LAB [facility] MICROBIOLOGY Wet prep (11/23/2012 12:22 PM CDT) Component Value Ref Test Analysis Performed At [facility] Method Time Signature Specimen [place] Description [facility] Wet Prep No Trichomonas seen [place] No clue cells seen [place] No yeast seen [facility] LAB Micro Report FINAL [place] Status 11/23/[address] [facility] Specimen Anatomical Collection Method Collection Time Receive d Time (Source) Location / / Volume Laterality 11/23/2012 12:22 11/23/2012 PM CDT 12:24 PM CDT Fawad Roland MD LAB - MICRO GENERAL ORDERABL ES Performing Organization Address City/[facility]/ZIP Code Phon e Number [facility] [place] [address] [facility] [place] [address] LAB Vitamin D Deficiency (11/23/2012 12:15 PM CDT) athologist Signature Vitamin D 52 30 - 75 [facility] Deficiency ug/L [place] [facility]S screening Comment: Season, race, dietary intake, and treatm ent affect the concentration of 54-czhjexc-Porvvsx D. Values may decrea se during winter [...] questions, pl ease contact the laboratory at [phone]. Specimen Anatomical Collection Method Collection Time Receive d Time (Source) Location / / Volume Laterality Blood specimen 11/23/2012 12:15 3 (specimen) PM CDT 12:17 PM CDT Fawad Roland MD LAB - BLOOD ORDERABLES Performing Organization Address City/State/ZIP Code Phon e Number [address] [address] [facility] LABS CBC with platelets (11/23/2012 12:15 PM CDT) athologist Signature WBC 9.0 4.0 - 11.0 [facility] 10e9/L [facility] RBC Count 4.39 3.8 - 5.2 [place] 10e12/L [facility] Hemoglobin 13.7 11.7 - [place] 15.7 g/dL [facility] Hematocrit 39.7 35.0 - [place] 47.0 % [facility] MCV 90 78 - 100 [facility] fl [facility] MCH 31.2 26.5 - [facility] 33.[address] [facility] MCHC 34.5 31.5 - [facility] 36.5 g/dL [facility] RDW 12.5 10.0 - [facility] 15.0 % [facility] Platelet Count 314 150 - 450 [place] 10e9/L [facility] Specimen Anatomical Collection Method Collection Time Receive d Time (Source) Location / / Volume Laterality Blood specimen 11/23/2012 12:15 3 (specimen) PM CDT 12:17 PM CDT Fawad Roland MD LAB - BLOOD ORDERABLES Performing Organization Address City/[facility] Code Phon e Number [facility] [place], [place] [phone] [facility] [place], [place] [phone] LAB TSH with free T4 reflex (11/23/2012 12:15 PM CDT) athologist Signature TSH 2.38 0.4 - 5.0 [place] [facility] mU/L CLINIC LAB Specimen Anatomical Collection Method Collection Time Receive d Time (Source) Location / / Volume Laterality Blood specimen 11/23/2012 12:15 3 (specimen) PM CDT 12:17 PM CDT Fawad Roland MD LAB - BLOOD ORDERABLES Performing Organization Address City/[facility] Code Phon e Number [facility] [address], [place] [address] [facility] [address] [place] [phone] (ABNORMAL) Comprehensive metabolic panel (11/23/2012 12:15 PM CDT) P athologist Signature Sodium 139 133 - 144 [place] mmol/L [facility] Potassium 4.2 3.4 - 5.3 [place] mmol/L [facility] Chloride 101 94 - 109 [place] mmol/L [facility] Carbon Dioxide 26 20 - 32 [place] mmol/L [facility] Anion Gap 12 6 - 17 [place] mmol/L [facility] Glucose 87 60 - 99 [place] mg/dL [facility] Urea Nitrogen 6 5 - 24 [place] mg/dL [facility] Creatinine 0.79 0.52 - [place] 1.04 mg/dL [facility] GFR Estimate 83 >60 [place] mL/min/1.7 [facility] m2 LAB GFR Estimate If >90 >60 [place] Black mL/min/1.7 [facility] m2 LAB Calcium 9.2 8.5 - 10.4 [place] mg/dL [facility] Bilirubin Total 0.2 0.2 - 1.3 [place] mg/dL [facility] Albumin 3.8 (L) 3.9 - 5.1 [place] g/dL [facility] Comment: Reference range changed on 02/08. Protein Total 7.0 6.8 - 8.8 g/dL [facility] Comment: As of 07, reference range reflects plasma specimen type. Alkaline Phosphatase 64 40 - 150 U/L [facility] ALT 28 0 - 50 U/L [facility] AST 25 0 - 45 U/L [facility] Specimen Anatomical Collection Method Collection Time Receive d Time (Source) Location / / Volume Laterality Blood specimen 11/23/2012 12:15 3 (specimen) PM CDT 12:17 PM CDT Fawad Roland MD LAB - BLOOD ORDERABLES Performing Organization Address City/State/ZIP Code Phon e Number [facility] [address] [place] [address] [phone] [facility] [address] [place] [address] (ABNORMAL) Lipid panel reflex to direct LDL (11/23/2012 12:15 PM CDT) athologist Signature Cholesterol 154 0 - 200 [facility] mg/dL CLINIC LAB Comment: LDL Cholesterol is the primary guide to therapy. The NCEP recommends further evaluation of: patients with cholesterol greater than 200 mg/dL if additional risk facto rs are present, cholesterol greater than 240 mg/dL, triglycerides greater than 1 50 mg/dL, or HDL less than 40 mg/dL. Triglycerides 200 (H) 0 - 150 mg/dL [facility] HDL Cholesterol 50 50 - 110 mg/dL [facility] LDL Cholesterol Calculated 64 0 - 129 mg/dL [facility] Comment: LDL Cholesterol is the primary guide to therapy: LDL-cholesterol goal in high risk patients is <100 mg/dL and in very high risk patients is <70 mg/dL. VLDL-Cholesterol 40 (H) 0 - 30 mg/dL [facility] Cholesterol/HDL Ratio 3.1 0.0 - 5.0 [facility] Specimen Anatomical Collection Method Collection Time Receive d Time (Source) Location / / Volume Laterality Blood specimen 11/23/2012 12:15 3 (specimen) PM CDT 12:17 PM CDT Fawad Roland MD LAB - BLOOD ORDERABLES Performing Organization Address City/State/ZIP Code Phon e Number [facility] [address] [place] [address] [phone] [facility] [address] [place] [address] (ABNORMAL) PAP imaged thin layer screen (11/23/2012 12:00 AM CDT) Component Value Ref Test Analysis Performed At [facility] Range Method Time Signature PAP ASC-H (A) COPATH Copath Report COPATH Patient Name: DARIANA VALDEZ MR#: [id number] Specimen #: [id number] Collected: 11/23/2012 Received: 11/24/2012 Reported: 11/26/2012 09:24 [...] Litzy Mejia M.D. Processed and screened at [facility] CLINICAL HISTORY: LMP: 2012 Previous normal pap Date of Last Pap: 11/09/2010, Papanicolaou Test Limitations: ??Cervical cytology is a scre ening test with limited sensitivity; regular screening is critical for cancer prevention; Pap tests are primarily effective for the diagnosis/prevention of squamous cell carcinoma, not adenoca rcinomas or other cancers. TESTING LAB LOCATION: [address] ??[address] COLLECTION SITE: Client: ??[facility] Location: [facility] (R) Specimen (Source) Anatomical Collection Method Collection [...] behavior documented in this encounter Care Teams Chronic Manager Relationship Specialty Start Date End Date Fawad Roland MD PCP - General Family Practice 09/21/10 01/29/17 documented as of this encounter
--- OUTSIDE RECORDS SUMMARY | 2022-04-11 21:45 | XMS_ITS | Encounter Summary ---
:1975 Author Organization [place] Address [address] [place] [address] Care Team Providers Name Role Phone Esmer Roland MD Primary Care Provider [phone] Reason for Visit Reason Comments Hypertension Blood pressure check Encounter Details Date Type Department Care Team Description 11/05/2012 [facility] Hypertensi on (Blood Health/Nurse Visit Clinic [place] pressure check) [facility], [address] [place] [address] Social History Tobacco Use Types [...] Body Mass Index 31.25 08/07/2012 8:23 AM CUSTOMER SERVICER documented in this encounter Progress Notes Mayela Reese - 11/05/2012 1:14 PM CDT Patient here to check weight, bp and pulse for continuing medication Phentermine. Mayela Reese RN documented in this encounter Plan of Treatment Not on filedocumented as of this encounter Visit Diagnoses Diagnosis Obesity - Primary Obesity, unspecified documented in this encounter Care Teams Journalism Internship Relationship Specialty Start Date End Date Esmer Roland MD PCP - General Family Practice 09/21/10 01/29/17 documented as of this encounter
--- OUTSIDE RECORDS SUMMARY | 2022-04-11 21:45 | XMS_ITS | Encounter Summary ---
:1975 Author Organization [place] Address [address] [place] [address] Care Team Providers Name Role Phone Esmer Roland MD Primary Care Provider [phone] Reason for Visit Reason Comments Recheck Medication Phentermine Encounter Details Date Type Department Care Team Description 01/06/2014 Allied Health/Nurse Health [place] Rec heck Medication Visit Clinic [place] (Phentermine) [facility], [address] [place] [address] Social History Tobacco Use Types [...] unspecified documented in this encounter Care Teams Concrete Mixer Operator Relationship Specialty Start Date End Date Esmer Roland MD PCP - General Family Practice 09/21/10 01/29/17 documented as of this encounter
--- OUTSIDE RECORDS SUMMARY | 2022-04-11 21:45 | XMS_ITS | Encounter Summary ---
:1975 Author Organization [place] Address [address] [facility] [place] [address] Care Team Providers Name Role Phone Fawad Roland MD Primary Care Provider [phone] Reason for Visit Reason Comments Physical Physical and Pap. Blood Draw Labs. Patient is fasting. Refill Request Encounter Details Date Type Department Care Team Description 10/01/2013 [facility] Routine general medical examination at a health care facility (Primary Dx); Clinic Sara Byrd MD ANXIETY STATE NOS; [place] [address] [address]; [address], [address] [place] [address] Screening for malignant neoplasm of the cervix [place], [place] [phone] (Wo rk) [address] [phone] Social History Tobacco Use Types Packs/Day Years [...] accordingly All Histories reviewed and updated in [facility]. ROS: C: NEGATIVE for fever, chills, [...] list, Allergies, and Medical/Social/Surgical histories reviewed in [facility] andupdated as appropriate. Labs reviewed in [facility] OBJECTIVE: BP 122/78 Pulse 80 Temp(Src) 98.8 [...] Preventive Guidelines Dietary Guidelines for Americans, 2010 [employer] regular exercise healthy diet/nutrition reports that [...] fruits/vegetables and avoid sweets. Fawad Roland MD [facility] documented in this encounter Nursing Notes Melissa [...] Signature Vitamin D 53 30 - 75 [facility] Deficiency ug/L [place] [facility] screening Comment: Season, race, dietary intake, and treatm ent affect the concentration of 61-oavxbmm-Lzmuolm D. Values may decrea se during winter [...] questions, pl ease contact the laboratory at [phone]. Specimen Anatomical Collection Method Collection Time Receive d Time (Source) Location / / Volume Laterality Blood specimen 10/01/2013 10:13 4 (specimen) AM CDT 10:14 AM CDT Fawad Roland MD LAB - BLOOD ORDERABLES Performing Organization Address City/State/ZIP Code Phon e Number [address] LABS CBC with platelets (10/01/2013 10:13 AM CDT) athologist Signature WBC 7.2 4.0 - 11.0 [facility] 10e9/L [facility] RBC Count 4.29 3.8 - 5.2 [facility] 10e12/L [facility] Hemoglobin 13.4 11.7 - [facility] 15.7 g/dL [facility] Hematocrit 39.4 35.0 - [facility] 47.0 % [facility] MCV 92 78 - 100 [facility] fl [facility] MCH 31.2 26.5 - [facility] 33.0 pg [facility] MCHC 34.0 31.5 - [facility] 36.5 g/dL [facility] RDW 12.5 10.0 - [facility] 15.0 % [facility] Platelet Count 300 150 - 450 [facility] 10e9/L [facility] Specimen Anatomical Collection Method Collection Time Receive d Time (Source) Location / / Volume Laterality Blood specimen 10/01/2013 10:13 4 (specimen) AM CDT 10:14 AM CDT Fawad Roland MD LAB - BLOOD ORDERABLES Performing Organization Address City/State/ZIP Code Phon e Number [facility] [place] [address] TSH with free T4 reflex (10/01/2013 10:13 AM CDT) athologist Signature TSH 1.76 0.4 - 5.0 [facility] mU/L [place] Specimen Anatomical Collection Method Collection Time Receive d Time (Source) Location / / Volume Laterality Blood specimen 10/01/2013 10:13 4 (specimen) AM CDT 10:14 AM CDT Fawad Roland MD LAB - BLOOD ORDERABLES Performing Organization Address City/[facility]/ZIP Code Phon e Number [facility] [address] [place] [address] [address] [facility] [address] [place] [phone] (ABNORMAL) Comprehensive metabolic panel (10/01/2013 10:13 AM CDT) P athologist Signature Sodium 138 133 - 144 [facility] mmol/L [facility] Potassium 4.3 3.4 - 5.3 [facility] mmol/L [facility] Chloride 102 94 - 109 [facility] mmol/L [facility] Carbon Dioxide 24 20 - 32 [facility] mmol/L [facility] Anion Gap 11 6 - 17 [facility] mmol/L [facility] Glucose 85 60 - 99 [facility] mg/dL [facility] Urea Nitrogen 9 5 - 24 [facility] [...] 3.6 (L) 3.9 - 5.1 [facility] g/dL [facility] Comment: Reference range changed on 02/08. Protein Total 6.4 (L) 6.8 - 8.8 g/dL [facility] [place] Comment: As of 07, reference range reflects plasma specimen type. Alkaline Phosphatase 56 40 - 150 U/L [facility] ALT 20 0 - 50 U/L [facility] [place] AST 17 0 - 45 U/L [facility] [place] Specimen Anatomical Collection Method Collection Time Receive d Time (Source) Location / / Volume Laterality Blood specimen 10/01/2013 10:13 4 (specimen) AM CDT 10:14 AM CDT Fawad Roland MD LAB - BLOOD ORDERABLES Performing Organization Address City/State/ZIP Code Phon e Number [facility] [address] [place] [address] (ABNORMAL) Lipid panel reflex to direct LDL (10/01/2013 10:13 AM CDT) P athologist Signature Cholesterol 146 <200 mg/dL [facility] Comment: LDL Cholesterol is the primary guide to therapy. The NCEP recommends further evaluation of: patients with cholesterol greater than 200 mg/dL if additional risk facto rs are present, cholesterol greater than 240 mg/dL, triglycerides greater than 1 50 mg/dL, or HDL less than 40 mg/dL. Triglycerides 80 0 - 150 mg/dL [facility] HDL Cholesterol 41 (L) >50 mg/dL [facility] [place] LDL Cholesterol Calculated 89 0 - 129 mg/dL [facility] Comment: LDL Cholesterol is the primary guide to therapy: LDL-cholesterol goal in high risk patients is <100 mg/dL and in very high risk patients is <70 mg/dL. VLDL-Cholesterol 16 0 - 30 mg/dL [facility] Cholesterol/HDL Ratio 3.6 0.0 - 5.0 [facility] Specimen Anatomical Collection Method Collection Time Receive d Time (Source) Location / / Volume Laterality Blood specimen 10/01/2013 10:13 4 (specimen) AM CDT 10:14 AM CDT Fawad Roland MD LAB - BLOOD ORDERABLES Performing Organization Address City/State/ZIP Code Phon e Number [facility] [address] [place] [address] PAP imaged thin layer, diagnostic (10/01/2013 12:00 AM CDT) Component Value Ref Test Analysis Performed At [facility] Range Method Time Signature PAP NIL COPATH Copath Report COPATH Patient Name: DARIANA VALDEZ MR#: [id number] Specimen #: [id number] Collected: 10/01/2013 Received: 10/04/2013 Reported: 10/06/2013 10:42 [...] [place] ??(ASCP) Processed and screened at [facility] CLINICAL HISTORY: Previous abnormal pap: ASC-H Date of Last Pap: 11/23/12, Papanicolaou Test Limitations: ??Cervical cytology is a scre ening test with limited sensitivity; regular screening is critical for cancer prevention; Pap tests are primarily effective for the diagnosis/prevention of squamous cell carcinoma, not adenoca rcinomas or other cancers. TESTING LAB LOCATION: [address] ??[address] COLLECTION SITE: Client: ??[facility] Location: [facility] (R) Specimen (Source) Anatomical [...] cervix documented in this encounter Care Teams Surgical Oncologist Relationship Specialty Start Date End Date Fawad Roland MD PCP - General Family Practice 09/21/10 01/29/17 documented as of this encounter
--- OUTSIDE RECORDS SUMMARY | 2022-04-11 21:45 | XMS_ITS | Encounter Summary ---
:1975 Author Organization [place] Address [address] [place] [address] Care Team Providers Name Role Phone Esmer Roland MD Primary Care Provider Reason for Visit Reason Comments Recheck Medication Phentermine Encounter Details Date Type Department Care Team Description 02/10/2013 Allied Health/Nurse Health [place] Rec heck Medication Visit Clinic [place] (Phentermine) [facility], [address] [place] [address] Social History Tobacco Use Types [...] unspecified documented in this encounter Care Teams Nuclear Power Reactor Operator Relationship Specialty Start Date End Date Esmer Roland MD PCP - General Family Practice 09/21/10 01/29/17 documented as of this encounter
--- OUTSIDE RECORDS SUMMARY | 2022-04-11 21:45 | XMS_ITS | Encounter Summary ---
:1975 Author Organization [place] Address [address] [place] [address]. [place] [address] Care Team Providers Name Role Phone Esmer Roland MD Primary Care Provider [phone] Reason for Visit Reason Onset Date Comments Refill Request 11/05/2012 Phentermine 37.5mg Encounter Details Date Type Department Care Team Description 11/05/2012 Refill [facility] Esmer Roland Refill Request Clinic Sara Byrd MD (Phentermine 37.5mg) [address] [place] [address] [place], [place] [phone] (Wo rk) [address] [phone] Social History Tobacco Use Types Packs/Day Years [...] - 11/06/2012 10:43 AM CDT Faxed Andreea Rodriguez/Senior Benefits Manager Telephone Encounter - Mayela Reese - 11/05/2012 [...] unspecified documented in this encounter Care Teams Radiology Physician Relationship Specialty Start Date End Date Esmer Roland MD PCP - General Family Practice 09/21/10 documented as of this encounter
--- OUTSIDE RECORDS SUMMARY | 2022-04-11 21:45 | XMS_ITS | Encounter Summary ---
:1975 Author Organization [place] Address [address] [place] [address]. [place] [address] Care Team Providers Name Role Phone Esmer Roland MD Primary Care Provider [phone] Reason for Visit Reason Onset Date Comments Refill Request 12/29/2012 LEXAPRO 20MG Encounter Details Date Type Department Care Team Description 12/29/2012 Refill [facility] Esmer Roland Refill Request (LEXAPRO Clinic [place] MD Rochelle 20MG) [address] [facility], [address] [place] [address] [address] [place] [address] [place], [place] [phone] (Wo rk) [address] [phone] Social History Tobacco Use Types Packs/Day Years [...] on file at pharmacy. Fariha Olsen [facility] Pharmacist Telephone Encounter - Shankar Durham - 12/29/2012 9:10 AM CDT LEXAPRO 20MG Last Fill Date: 11-23-2012 Last Fill Quantity: 30 Last Office Visit: 12-25-2012 Date of Last PHQ-9 score: 08-07-2012 Last PHQ-9 score on record= 9 RONNY RICKETTS [facility] (#[id number]) [address] [place] [address] documented in this encounter Plan of Treatment Not on filedocumented as of this encounter Visit Diagnoses Diagnosis Major Depress Dis, Severe - Primary Major depressive disorder, single episod e, severe, without mention of psychotic behavior documented in this encounter Care Teams Merchant Police Relationship Specialty Start Date End Date Esmer Roland MD PCP - General Family Practice 09/21/10 01/29/17 documented as of this encounter
--- OUTSIDE RECORDS SUMMARY | 2022-04-11 21:45 | XMS_ITS | Encounter Summary ---
:1975 Author Organization [place] Address [facility] [place] [address] Care Team Providers Name Role Phone Fawad Roland MD Primary Care Provider [phone] Reason for Visit Reason Comments Colposcopy Encounter Details Date Type Department Care Team Description 12/25/2012 Office Visit [facility] Fawad Roland l Pap smear, Clinic [place] [address] [place] [address] [facility]epit [facility], [address] (ASC-H) (Primary Dx) [place] [address] [id number] Social History Tobacco Use Types Packs/Day Years [...] office visit: 12/02/2012 Chelsea Mendoza CMA ([facility]) documented in this encounter Plan of [...] Time Signature HCG Qual Urine Negative NEG [facility] Specimen Anatomical Collection Method Collection Time Receive d Time (Source) Location / / Volume Laterality Urine specimen 12/25/2012 8:31 AM 013 8:33 (specimen) CDT AM CDT Fawad Roland MD LAB - URINE ORDERABLES Performing Organization Address City/State/ZIP Code Phon e Number [facility] [place], [place] [id number] [facility] [place], [place] [id number] LAB Surgical pathology exam (12/25/2012 8:00 AM CDT) Component Value Ref Test Analysis Performed At [facility] gist Range Method Time Signature Copath Report Patient Name: DARIANA VALDEZ MR#: [id number] Specimen #: [id number] Collected: 12/25/2012 Received: 12/25/2012 Reported: 12/28/2012 15:59 [...] and malign juni. COMMENT: Previous Pap. Smear ([id number]) was signed as atypical squam ous cells, [...] was performed. MGP/kd 12-28-12 TESTING LAB LOCATION: [facility] [address] [place], [place] ??[address] COLLECTION SITE: Client: [facility] Location: [facility] (R) Specimen Anatomical Collection Method [...] (ASC-H) documented in this encounter Care Teams Commercial Estimator Relationship Specialty Start Date End Date Fawad Roland MD PCP - General Family Practice 09/21/10 01/29/17 documented as of this encounter
--- OUTSIDE RECORDS SUMMARY | 2022-04-11 21:45 | XMS_ITS | Encounter Summary ---
:1975 Author Organization [place] Address [address] [place] [address] Care Team Providers Name Role Phone Esmer Roland MD Primary Care Provider [phone] Reason for Visit Reason Comments RECHECK Wt,bp, pulse Encounter Details Date Type Department Care Team Description 01/28/2013 Allied Health/Nurse [facility] REC HECK (Wt,bp, pulse) Visit Clinic [address], [address] [place] [address] Social History Tobacco Use Types [...] unspecified documented in this encounter Care Teams Metal Miner Blasting Relationship Specialty Start Date End Date Esmer Roland MD PCP - General Family Practice 09/21/10 01/29/17 documented as of this encounter
--- OUTSIDE RECORDS SUMMARY | 2022-04-11 21:45 | XMS_ITS | Encounter Summary ---
:1975 Author Organization [place] Address [address] [place] [address] Care Team Providers Name Role Phone Esmer Roland MD Primary Care Provider Reason for Visit Reason Comments Weight Check Encounter Details Date Type Department Care Team Description 09/22/2012 Allied Health/Nurse [facility] Clinic Weight Check Visit [address], [address] [place] [address] Social History Tobacco Use [...] Body Mass Index 33.2 08/07/2012 8:23 AM CIRCULATION LIBRARIAN documented in this encounter Progress Notes Mayela Reese - 09/22/2012 1:41 PM CDT Weight and blood pressure check. Mayela Reese RN documented in this encounter Plan of Treatment Not on filedocumented as of this encounter Visit Diagnoses Diagnosis Obesity - Primary Obesity, unspecified documented in this encounter Care Teams Forensic Nurse Relationship Specialty Start Date End Date Esmer Roland MD PCP - General Family Practice 09/21/10 01/29/17 documented as of this encounter
--- OUTSIDE RECORDS SUMMARY | 2022-04-11 21:45 | XMS_ITS | Encounter Summary ---
:1975 Author Organization [place] Address [address] [facility] [place] [address] Care Team Providers Name Role Phone Esmer Roland MD Primary Care Provider [phone] Yony Garcia PA-C Primary Care Provider [phone] Yony Garcia PA-C Unavailable [phone] Erik Rivas Primary Care Provider Yony Garcia PA-C Unavailable [phone] Reason for Visit Reason Onset Date Comments Refill Request 09/28/2013 Phentermine 37.5mg Encounter Details Date Type Department Care Team Description 09/28/2013 Refill [facility] Esmer Roland Refill Request Clinic Sara Byrd MD (Phentermine 37.5mg) [address] [place] [address] [place], [place] [phone] (Wo rk) [address] [phone] Social History Tobacco Use Types Packs/Day Years [...] Fill Quantity: 30 Last Office Visit: 07/23/13 [facility] Horticultural Services Supervisor [facility] [email or web address] Thank you! documented in this encounter Plan of Treatment Not on filedocumented as of this encounter Visit Diagnoses Diagnosis Obesity Obesity, unspecified documented in this encounter Care Teams Facilities And Grounds Director Relationship Specialty Start Date End Date Esmer Roland, PCP - General Family Practice 09/21/10 01/29/17 Yony Garcia, PCP - General Physician Natural Resources Specialist - 01/30/17 07/23/18 PA-C Medical Yony Garcia, PCP - Assigned PCP 09/01/16 08/11/18 PA-C [address] [address] [place] [id number] Erik Rivas PCP - General Family Practice 07/24/[address] [address] Yony Garcia, Assigned PCP 09/01/16 PA-C [address] [place] [id number] documented as of this encounter
--- OUTSIDE RECORDS SUMMARY | 2022-04-11 21:45 | XMS_ITS | Encounter Summary ---
:1975 Author Organization [place] Address [address] [facility] 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) Esmre Roland, [facility] [address] [place] [id number] Referral ID Status Reason Start Date Expiration Date Visits Requ ested Visits Authorized [id number] Closed 12/28/2012 06/26/2013 1 1 Reason for Visit Reason Onset Date Comments Results 12/28/2012 Encounter Details Date Type Department Care Team Description 12/28/2012 Telephone [facility] Esmer Roland, Results Sara BANERJEE [address] [facility], [address] [place] [address] [place] [address] [phone] Social History Tobacco Use Types Packs/Day Years [...] notified and phone number for OBGYN in [place] given. Mayela Reese RN Telephone Encounter - Esmer Roland MD - 12/28/2012 4:15 PM CDT Pt with high grade changes on colposcopy, pt needs referral and f/u with AUTO SERVICE STATION ATTENDANT. Please call pt documented in this encounter Plan of Treatment Scheduled Referrals Name Type Priority Associated Diagnoses Order S chedule OPTICAL FABRICATION TECHNICIAN REFERRAL Referral Routine Papanicolaou smear of vag enrique Ordered: 12/28/2012 with high grade squamous intraepithelial lesion (HGSI L) documented as of this encounter Visit Diagnoses Diagnosis Papanicolaou smear of vagina with high g rade squamous intraepithelial lesion (HGSIL) - Primary documented in this encounter Care Teams Child Welfare Consultant Relationship Specialty Start Date End Date Esmer Roland MD PCP - General Family Practice 09/21/10 01/29/17 documented as of this encounter
--- OUTSIDE RECORDS SUMMARY | 2022-04-11 21:45 | XMS_ITS | Encounter Summary ---
:1975 Author Organization [place] Address [address] [facility] [place] [address] Care Team Providers Name Role Phone Esmer Roland MD Primary Care Provider [phone] Reason for Visit Reason Comments Pre-Op Exam Encounter Details Date Type Department Care Team Description 10/29/2013 Office Visit [facility] Kenneth Couch Pre gen eral Clinic Sara Booth MD physical exam [address] [place] [address] [facility] (Primary Dx) [address], [address] [place] [address] [place], [place] [phone] (Wo rk) [address] [phone] Social History Tobacco Use Types Packs/Day Years [...] Couch MD - 10/29/2013 8:01 AM CDT [address], [address] [facility] [address] Dept: [phone] PRE-OP EVALUATION: Today's date: 10/29/2013 Dariana Osman (: 1975) presents for pre-operative evaluation assessment as requested by Dr. [place]. She requires evaluation and anesthesia risk assessment prior to undergoing surgery/procedure Breast reduction Date of Surgery/ Procedure: 11/03/13 Time of Surgery/ Procedure: 1000 Hospital/Surgical Facility: [facility] Fax number for surgical facility: [phone] Primary Physician: Esmer Roland Type of Anesthesia [...] (ASC-H) 11/23/2012 Priority: Medium 11/23/12 ASC-H. 12/25/12 [place]= BRIGID 2. Referred to Ob~Manager Radio, Dr. Christensen 02/18/13 LEEP= Negative, R/P pap [...] cardiovascular risks for perioperative complications such as (WA, PE, VFib and 3?? AV Block): No [...] evaluation report is provided to requesting physician. [place] Preop Guidelines 2013 documented in this encounter Plan of Treatment Not on filedocumented as of this encounter Visit Diagnoses Diagnosis Preop general physical exam - Primary Other specified pre-operative examinatio n documented in this encounter Care Teams Automotive Lube Technician Relationship Specialty Start Date End Date Esmer Roland MD PCP - General Family Practice 09/21/10 01/29/17 documented as of this encounter
--- OUTSIDE RECORDS SUMMARY | 2022-04-11 21:45 | XMS_ITS | Encounter Summary ---
:1975 Author Organization [place] Address [address] [place] [address] Care Team Providers Name Role Phone Esmer Roland MD Primary Care Provider [phone] Yony Garcia PA-C Primary Care Provider [phone] Yony Garcia PA-C Unavailable [phone] Erik Rivas Primary Care Provider Yony Garcia PA-C Unavailable [phone] Reason for Visit Reason Onset Date Comments Refill Request 06/08/2012 Paxil 20mg Encounter Details Date Type Department Care Team Description 06/08/2012 MyC Refill [facility] Esmer Roland Refill Request (Paxil Clinic [place] MD Rochelle 20mg) [address] [place] [address] [address] [place] [address] [place], [place] [phone] (Wo rk) [address] [phone] Social History Tobacco Use Types Packs/Day Years [...] approved per standing orders. Mayela Reese RN MEAT SALTER Telephone Encounter - Mayela Reese - 06/08/2012 [...] needed Max Refills: 6mths Need updated PHQ-9. blogTV message sent. Mayela Reese RN MEAT SALTER Telephone Encounter - Rosy Reeseique - 06/08/2012 1:51 PM HAND MEAT SALTER Message from blogTV: Original authorizing provider: MD Dariana Man Verito Jacqui would like a refill of the following medications: PARoxetine (PAXIL) 20 MG tablet [Esmer Roland MD] Preferred pharmacy: [facility] Comment: MEAT SALTER documented in this encounter Plan of Treatment Not on filedocumented as of this encounter Visit Diagnoses Diagnosis ANXIETY STATE NOS - Primary Anxiety state, unspecified documented in this encounter Care Teams Director Telemetry Relationship Specialty Start Date End Date Esmer Roland, PCP - General Family Practice 09/21/10 01/29/17 Yony Garcia, PCP - General Physician [place] Electronic - 01/30/17 07/23/18 [facility] Yony Garcia, PCP - Assigned PCP 09/01/16 08/11/18 [facility] [address] [address] [id number] Erik Rivas PCP - General Family Practice 07/24/[address] [address] Yony Garcia, Assigned PCP 09/01/16 [facility] [address] [place] [address] documented as of this encounter
--- OUTSIDE RECORDS SUMMARY | 2022-04-11 21:45 | XMS_ITS | Encounter Summary ---
:1975 Author Organization [place] Address [address] [facility] [place] [address] Care Team Providers Name Role Phone Esmer Roland MD Primary Care Provider [phone] Reason for Visit Reason Comments Depression med check/follow up, increas ed weight Pre Visit Planning - Done aet mychart 08/06/12 Encounter Details Date Type Department Care Team Description 08/07/2012 Office Visit [facility] Esmer Roland ANXIETY STATE NOS (Primary Dx); Clinic Sara Byrd MD Insomnia; [place] [address] Abnormal uterine bleeding; Road, [address] [place] [address] Mild major depression (H); [place], [place] [phone] (Wo rk) Vitamin d deficiency [address] [phone] Social History Tobacco Use Types Packs/Day Years [...] Comments Blood Pressure 112/62 08/07/2012 8:23 AM RESEARCH ENGINEER Pulse 68 08/07/2012 8:23 AM RESEARCH ENGINEER Temperature 37 ??C (98.6 ??F) 08/07/2012 8:23 AM RESEARCH ENGINEER Respiratory Rate 14 08/07/2012 8:23 AM RESEARCH ENGINEER Oxygen Saturation - - Inhaled Oxygen Concentration - - Weight 98 kg (216 lb) 08/07/2012 8:23 AM RESEARCH ENGINEER Height 170.2 cm (5' 7) 08/07/2012 8:23 AM RESEARCH ENGINEER Body Mass Index 33.83 08/07/2012 8:23 AM RESEARCH ENGINEER documented in this encounter Patient Instructions Patient InstructionsDoEsmer dunham MD - 08/07/2012 8:43 AM RESEARCH ENGINEER The Mediterranean Diet can reduce your risk of Heart Disease and Stroke Recommended: [place] oil >4 Tbs/day Tree nuts >3 handfuls/wk, [...] <1/day Or processed meats <1/day Taken from [place] Journal of Medicine Jul 2012 ARCH ENGINEER documented in this encounter Progress Notes Esmer [...] Panic / Manic symptoms: Yes- anxiety PHQ-9 Northern Irish PHQ-9 Any Language ?? Amount of exercise [...] list, Allergies, and Medical/Social/Surgical histories reviewed in [facility] andupdated as appropriate. Labs reviewed in [facility] OBJECTIVE: BP 112/62 Pulse 68 Temp(Src) 98.6 [...] increase fruits/vegetables and avoid sweets. Esmer Roland [facility] ARCH ENGINEER documented in this encounter Nursing Notes 08/07/2012 [...] deficiency documented in this encounter Care Teams Sign Language Instructor Relationship Specialty Start Date End Date Esmer Roland MD PCP - General Family Practice 09/21/10 01/29/17 documented as of this encounter
--- OUTSIDE RECORDS SUMMARY | 2022-04-11 21:46 | XMS_ITS | Encounter Summary ---
:1975 Author Organization [place] Address [facility], [facility] [place] [address] Care Team Providers Name Role Phone Esmer Roland MD Primary Care Provider [phone] Reason for Visit Reason Onset Date Comments Depression 02/05/2011 Encounter Details Date Type Department Care Team Description 02/05/2011 Telephone [facility] Esmer Roland, Depression Sara BANERJEE [address] [facility], [address] [place] [address] [address] [place] [address] [place] [address] [phone] Social History Tobacco Use Types Packs/Day Years [...] Primary documented in this encounter Care Teams Is Support Analyst Relationship Specialty Start Date End Date Esmer Roland MD PCP - General Family Practice 09/21/10 01/29/17 documented as of this encounter
--- OUTSIDE RECORDS SUMMARY | 2022-04-11 21:46 | XMS_ITS | Encounter Summary ---
:1975 Author Organization [place] Address [address] [place] [address] Care Team Providers Name Role Phone Fawad Roland MD Primary Care Provider Reason for Visit Reason Comments Dysuria Encounter Details Date Type Department Care Team Description 03/12/2011 Allied Health/Nurse [facility] Clinic Dysuria Visit [address], [address] [place] [address] Social History Tobacco Use Types Packs/Day [...] caused by overgrowth of a fungus called Whit. Vaginitis can also be caused by an [...] Component Value Ref Test Analysis Performed At [facility] Range Method Time Signature Specimen Vagina [facility] Description [facility] Wet Prep Clue cells seen [place] No yeast seen [place] No Trichomonas seen [facility] Micro Report FINAL [place] Status 03/12/2011 [facility] Specimen Anatomical Collection Method Collection Time Receive d Time (Source) Location / / Volume Laterality 03/12/2011 1:25 PM 1 1:26 CDT PM CDT Fawad Roland MD LAB - MICRO GENERAL ORDERABL ES Performing Organization Address [facility] Phon e Number [address] [address] [facility] (ABNORMAL) Microscopic exam urine (03/12/2011 11:08 AM CDT) [facility] Method Time Signature WBC Urine 10-25 (A) 0 - 2 [facility] RBC Urine 2-5 (A) 0 - 2 [facility] Squamous Few [facility] Epithelial [facility] /[facility] Urine CLINIC LAB Bacteria Urine Moderate (A) NEG /HPF [facility] Mucous Urine Present (A) NEG /LPF [facility] Specimen Anatomical Collection Method Collection Time Receive d Time (Source) Location / / Volume Laterality 03/12/2011 11:08 03/12/2011 AM CDT 11:09 AM CDT Fawad Roland MD LAB - URINE ORDERABLES Performing Organization Address [facility] Phon e Number [address] [address] [facility] Urine culture (03/12/2011 11:08 AM CDT) [facility] Method Time Signature Specimen Midstream [place] Description Urine [facility] Culture Micro No growth [facility] Micro Report FINAL [place] Status 03/14/2011 [facility] Specimen Anatomical Collection Method Collection Time Receive d Time (Source) Location / / Volume Laterality 03/12/2011 11:08 03/12/2011 AM CDT 11:10 AM CDT Fawad Roland MD LAB - MICRO GENERAL ORDERABL ES Performing Organization Address City/State/ZIP Code Phon e Number [facility] [address] [place] [address] [facility] (ABNORMAL) UA macroscopic with reflex to micro (03/12/2011 11:08 AM CDT) [facility] Method Time Signature Color Urine Yellow [facility] Appearance Urine Slightly [place] Cloudy [facility] Glucose Urine Negative NEG mg/dL [facility] Bilirubin Urine Negative NEG [facility] Ketones Urine Trace (A) NEG mg/dL [facility] Specific [place] 1.020 1.003 - [place] Urine 1.035 [facility] Blood Urine Small (A) NEG [facility] pH Urine 6.0 5.0 - 7.0 [place] pH [facility] Protein Albumin Trace (A) NEG mg/dL [facility] Urobilinogen 1.0 0.2 - 1.0 [place] Urine EU/dL [facility] Nitrite Urine Negative NEG [facility] Leukocyte Moderate (A) NEG [place] Esterase Urine [facility] Source Midstream [place] Urine [facility] Specimen Anatomical Collection Method Collection Time Receive d Time (Source) Location / / Volume Laterality Urine specimen 03/12/2011 11:08 1 (specimen) AM CDT 11:09 AM CDT Fawad Roland MD LAB - URINE ORDERABLES Performing Organization Address City/State/ZIP Code Phon e Number [facility] [id number] [place] [id number] [facility] documented in this encounter Visit Diagnoses Diagnosis Vaginitis - Primary Vaginitis and vulvovaginitis, unspecifie d Dysuria UTI (urinary tract infection) Urinary tract infection, site not specif ied documented in this encounter Care Teams Safety Investigator Relationship Specialty Start Date End Date Fawad Roland MD PCP - General Family Practice 09/21/10 01/29/17 documented as of this encounter
--- OUTSIDE RECORDS SUMMARY | 2022-04-11 21:46 | XMS_ITS | Encounter Summary ---
:1975 Author Organization [place] Address [address] [place] [address]. [place] [address] Care Team Providers Name Role Phone Esmer Roland MD Primary Care Provider [phone] Reason for Visit Reason Comments ER F/U Was in the ER last night for chest discomfort/congestion/aplpatations. Feels bruised. SOB. ?? Anxiety rel ated. Was given Ativan in the ER and had relief. Encounter Details Date Type Department Care Team Description 12/31/2010 Office Visit [facility] Martin Hauser NXIETY STATE NOS; Clinic [place] Shane Garcia MD Palpitations; [address] [facility] [place] ARIJA AESTHETIC Chest pain [place], [place] [address] [address] [phone] [place], [place] [address] (Wo rk) Social History [...] symptomatic and supportive care. Martin Hauser MD [facility] documented in this encounter Nursing Notes 12/31/2010 [...] covers vaccines) Mychart Offered: Yes Jeimy Bowman SHIPPING CHECKER documented in this encounter Plan of Treatment Not on filedocumented as of this encounter Visit Diagnoses Diagnosis ANXIETY STATE NOS Anxiety state, unspecified Palpitations Chest pain Chest pain, unspecified documented in this encounter Care Teams Jet Engine Mechanic Relationship Specialty Start Date End Date Esmer Roland MD PCP - General Family Practice 09/21/10 01/29/17 documented as of this encounter
--- OUTSIDE RECORDS SUMMARY | 2022-04-11 21:46 | XMS_ITS | Encounter Summary ---
:1975 Author Organization [place] Address [address] [place] [address] Care Team Providers Name Role Phone Esmer Roland MD Primary Care Provider [phone] Reason for Visit Reason Onset Date Comments Contraception 04/19/2011 Depo injection Encounter Details Date Type Department Care Team Description 04/19/2011 Telephone [facility] Esmer Roland Contrac eption (Depo Clinic Sara Byrd MD injection) [place] [address] [facility], [address] [place] [address] [place], [place] [phone] (Wo rk) [address] [phone] Social History Tobacco Use Types Packs/Day Years [...] AM CST Pt notified. Mayela Reese RN NESS CONTROL SPECIALIST Telephone Encounter - Esmer Roland - 04/19/2011 10:04 AM CST Ordered, please notify pt NESS CONTROL SPECIALIST Telephone Encounter - HughMayela - 04/19/2011 9:58 [...] Please order and advise. Mayela Reese RN NESS CONTROL SPECIALIST documented in this encounter Plan of Treatment Not on filedocumented as of this encounter Visit Diagnoses Diagnosis Contraception - Primary Unspecified contraceptive management documented in this encounter Care Teams Bin Tripper Operator Relationship Specialty Start Date End Date Esmer Roland MD PCP - General Family Practice 09/21/10 01/29/17 documented as of this encounter
--- OUTSIDE RECORDS SUMMARY | 2022-04-11 21:46 | XMS_ITS | Encounter Summary ---
:1975 Author Organization [place] Address [address] [place] [address] Care Team Providers Name Role Phone Esmer Roland MD Primary Care Provider [phone] Reason for Visit Reason Comments URI swollen glands Encounter Details Date Type Department Care Team Description 02/14/2011 Office Visit [facility] Esmer Roland PHARYNG ITIS (Primary Dx); Clinic Sara Byrd MD Major depress dis, severe [place] [address] [facility], [address] [place] [address] [place], [place] [phone] (Wo rk) [address] [phone] Social History Tobacco Use Types Packs/Day Years [...] Component Value Ref Test Analysis Performed At [facility] Range Method Time Signature Specimen Throat [facility] LAB Culture Micro No Beta [facility] Streptococcus [facility] isolated LAB Micro Report FINAL 02/16/2011 [facility] Status [facility] LAB Specimen Anatomical Collection Method Collection Time Receive d Time (Source) Location / / Volume Laterality Specimen from 02/14/2011 12:26 02/14/2011 throat PM CDT 12:28 PM CDT (specimen) Esmer Roland MD LAB - MICRO GENERAL ORDERABL ES Performing Organization Address City/State/ZIP Code Phon e Number [address] [address] [facility] Rapid strep screen (02/14/2011 12:26 PM CDT) Component Value Ref Test Analysis [facility] Method Time Signature Specimen Throat [facility] Description [facility] Rapid Strep A NEGATIVE: No Group A strepto coccal antigen detected by immunoassay, await [facility] Screen culture report. [facility] Micro Report FINAL 02/14/2011 [place] Status [facility] Specimen Anatomical Collection Method Collection Time Receive d Time (Source) Location / / Volume Laterality Specimen from 02/14/2011 12:26 02/14/2011 throat PM CDT 12:28 PM CDT (specimen) Esmer Roland MD LAB - MICRO GENERAL ORDERABL ES Performing Organization Address City/State/ZIP Code Phon e Number [facility] [address] [facility] documented in this encounter Visit Diagnoses Diagnosis Pharyngitis - Primary Acute pharyngitis Major depressive disorder, single episod e, severe, without mention of psychotic behavior documented in this encounter Care Teams Underground Miner Relationship Specialty Start Date End Date Esmer Roland MD PCP - General Family Practice 09/21/10 01/29/17 documented as of this encounter
--- OUTSIDE RECORDS SUMMARY | 2022-04-11 21:46 | XMS_ITS | Encounter Summary ---
:1975 Author Organization [place] Address [address] [place] [address]. [place] [address] Care Team Providers Name Role Phone Esmer Roland MD Primary Care Provider [phone] Reason for Visit Reason Onset Date Comments Refill Request 02/16/2011 LORAZEPAM 1MG Encounter Details Date Type Department Care Team Description 02/16/2011 Refill [facility] Esmer Roland Refill Request Clinic Sara Byrd MD (LORAZEPAM 1MG) [address] [place] [address] [address] [place] [address] [place], [place] [phone] (Wo rk) [address] [phone] Social History Tobacco Use Types Packs/Day Years [...] unspecified documented in this encounter Care Teams Blueprint Developer Relationship Specialty Start Date End Date Esmer Roland MD PCP - General Family Practice 09/21/10 01/29/17 documented as of this encounter
--- OUTSIDE RECORDS SUMMARY | 2022-04-11 21:46 | XMS_ITS | Encounter Summary ---
:1975 Author Organization [place] Address [address] [place] [address]. [place] [address] Care Team Providers Name Role Phone Esmer Roland MD Primary Care Provider [phone] Reason for Visit Reason Onset Date Comments Refill Request 03/16/2012 zolpidem 5mg Encounter Details Date Type Department Care Team Description 03/16/2012 Refill [facility] Esmer Roland Refill Request Clinic Sara Byrd MD (zolpidem 5mg) [address] [facility], [address] [place] [address] [address] [place] [address] [place], [place] [phone] (Wo rk) [address] [phone] Social History Tobacco Use Types Packs/Day Years [...] Last Office Visit: 03/05/2012 Ara Liz CPhT [facility] documented in this encounter Plan of Treatment Not on filedocumented as of this encounter Visit Diagnoses Diagnosis Insomnia - Primary Insomnia, unspecified documented in this encounter Care Teams Title Assistant Relationship Specialty Start Date End Date Esmer Roland MD PCP - General Family Practice 09/21/10 01/29/17 documented as of this encounter
--- OUTSIDE RECORDS SUMMARY | 2022-04-11 21:46 | XMS_ITS | Encounter Summary ---
:1975 Author Organization [place] Address [address] [place] [address]. [place] [address] Care Team Providers Name Role Phone Esmer Roland MD Primary Care Provider [phone] Reason for Visit Reason Onset Date Comments Refill Request 12/17/2011 b/c Encounter Details Date Type Department Care Team Description 12/17/2011 Refill [facility] Esmer Roland Refill Request (b/c) [place] [address] [place] [address] [place] [phone] Social History Tobacco Use Types Packs/Day Years [...] pap was done on 11/09/2010. Kaitlin Hough [facility] Telephone Encounter - Deidre Alas - 12/17/2011 4:53 PM CDT LAST FILL DATE: 09/24/11 QTY: 84 Last office appt:02/14/11 Camilo Hammonds [facility] documented in this encounter Plan of Treatment Not on filedocumented as of this encounter Visit Diagnoses Diagnosis Abnormal uterine bleeding - Primary Unspecified disorder of menstruation and other abnormal bleeding from female genital tract documented in this encounter Care Teams Med Admin Relationship Specialty Start Date End Date Esmer Roland MD PCP - General Family Practice 09/21/10 01/29/17 documented as of this encounter
--- OUTSIDE RECORDS SUMMARY | 2022-04-11 21:46 | XMS_ITS | Encounter Summary ---
:1975 Author Organization [place] Address [address] [facility] [place] [address] Care Team Providers Name Role Phone Esmer Roland MD Primary Care Provider Reason for Visit Reason Onset Date Comments Refill Request 04/11/2011 lorazepam Encounter Details Date Type Department Care Team Description 04/11/2011 Refill [facility] Esmer Roland Refill Request Clinic [place] (lorazepam) [address] [place] [address] [place]IDE[place] [phone] Social History Tobacco Use Types Packs/Day Years [...] Office Visit: 02/14/11 Kristine Alston, Pharmacy Float Hearing Aide Technician [facility] documented in this encounter Plan of Treatment Not on filedocumented as of this encounter Visit Diagnoses Diagnosis ANXIETY STATE NOS Anxiety state, unspecified documented in this encounter Care Teams Extension Work Instructor Relationship Specialty Start Date End Date Esmer Roland MD PCP - General Family Practice 09/21/10 01/29/17 documented as of this encounter
--- OUTSIDE RECORDS SUMMARY | 2022-04-11 21:46 | XMS_ITS | Encounter Summary ---
:1975 Author Organization [place] Address [facility] [place] [address] Care Team Providers Name Role Phone Esmer Roland MD Primary Care Provider [phone] Reason for Visit Reason Onset Date Comments Refill Request 04/06/2012 Xanax Encounter Details Date Type Department Care Team Description 04/06/2012 Refill [facility] Esmer Roland Refill Request (Xanax) Clinic Sara Byrd MD [address] [place] [address], [address] [place] [address] [address] [place] [address] [place], [place] [phone] (Wo rk) [address] [phone] Social History Tobacco Use Types Packs/Day Years [...] unspecified documented in this encounter Care Teams Medical Office Coordinator Relationship Specialty Start Date End Date Esmer Roland MD PCP - General Family Practice 09/21/10 01/29/17 documented as of this encounter
--- OUTSIDE RECORDS SUMMARY | 2022-04-11 21:46 | XMS_ITS | Encounter Summary ---
:1975 Author Organization [place] Address [address] [place] [address] Care Team Providers Name Role Phone Esmer Roland MD Primary Care Provider [phone] Reason for Visit Reason Comments Contraception Depo injection Encounter Details Date Type Department Care Team Description 04/19/2011 [facility] ion (Depo Health/Nurse Visit Clinic [facility]) [facility], [address] [place] [address] Social History Tobacco Use Types [...] Comments Blood Pressure 143/76 04/19/2011 2:38 PM CLIN TECH Pulse 74 04/19/2011 2:38 PM CLIN TECH Temperature - - Respiratory Rate - - Oxygen Saturation - - Inhaled Oxygen Concentration - - Weight 83 kg (183 lb) 04/19/2011 2:38 PM CLIN TECH Height - - Body Mass Index 28.66 03/12/2011 1:14 PM CDT documented in this encounter Progress Notes Mayela Reese - 04/19/2011 2:43 PM CST Initial [...] administration information Staff Sig: Mayela Reese RN TECH documented in this encounter Plan of Treatment Not on filedocumented as of this encounter Visit Diagnoses Diagnosis Contraception management Unspecified contraceptive management Menorrhagia Excessive or frequent menstruation documented in this encounter Care Teams Machine Adjuster Leader Case Trim Relationship Specialty Start Date End Date Esmer Roland MD PCP - General Family Practice 09/21/10 01/29/17 documented as of this encounter
--- OUTSIDE RECORDS SUMMARY | 2022-04-11 21:46 | XMS_ITS | Encounter Summary ---
:1975 Author Organization [place] Address [address] [place] [address] Care Team Providers Name Role Phone Esmer Roland MD Primary Care Provider Encounter Details Date Type Department Care Team Description [facility]/30[facility]2010 [facility] [address] [place] [address] [place] [address] [...] on filedocumented in this encounter Care Teams Mechanic Chief Relationship Specialty Start Date End Date Esmer Roland MD PCP - General Family Practice 09/21/10 01/29/17 documented as of this encounter
--- OUTSIDE RECORDS SUMMARY | 2022-04-11 21:46 | XMS_ITS | Encounter Summary ---
:1975 Author Organization [place] Address [address] [place] [address] Care Team Providers Name Role Phone Esmer Roland MD Primary Care Provider Reason for Visit Reason Comments Refill Request Encounter Details Date Type Department Care Team Description 01/21/2011 Office Visit [facility] Esmer Roland ANXIETY STATE NOS (Primary Dx); Clinic Sara Byrd MD Palpitations; [place] [address] [facility], [address] [place] [address] [place], [place] [phone] (Wo rk) [address] [phone] Social History Tobacco Use Types Packs/Day Years [...] unspecified documented in this encounter Care Teams Straw Hat Presser Relationship Specialty Start Date End Date Esmer Roland MD PCP - General Family Practice 09/21/10 01/29/17 documented as of this encounter
--- OUTSIDE RECORDS SUMMARY | 2022-04-11 21:46 | XMS_ITS | Encounter Summary ---
:1975 Author Organization [place] Address [address] [place] [address] Care Team Providers Name Role Phone Esmer Roland MD Primary Care Provider [phone] Encounter Details Date Type Department Care Team Description 12/30/2010 Emergency room [facility] Results EMERGENCY PHYSI MELINA ROMERO [address] [place], [place] [address] Social History Tobacco Use Types Packs/Day Years Used Date Smoking Tobacco: Former Smokeless Tobacco: Never Comments: Quit September last year. Alcohol Use Standard Drinks/Week Comments Yes 0 (1 standard drink = 0.6 oz pure alcoho l) 1 qo week Sex Assigned at Date Recorded Not on file documented as of this encounter Progress Notes Interface, Complex Care Nurse - 01/01/2011 8:56 PM CDT FINAL Chief [...] information - -: ECG: Rate 92 bpm. ME interval 112. QRS duration 82. QT/QTc 332/410. [...] JOSE [place]: Name: DARIANA VALDEZ Account: [id number] : 1975 Visit Date: 12/30/2010 Document: [id number] documented in this encounter Plan of Treatment Not on filedocumented as of this encounter Visit Diagnoses Not on filedocumented in this encounter Care Teams Cancer Center Director Relationship Specialty Start Date End Date Esmer Roland MD PCP - General Family Practice 09/21/10 01/29/17 documented as of this encounter
--- OUTSIDE RECORDS SUMMARY | 2022-04-11 21:46 | XMS_ITS | Encounter Summary ---
:1975 Author Organization [place] Address [address] [facility] [place] [address] Care Team Providers Name Role Phone Esmer Roland MD Primary Care Provider [phone] Reason for Visit Reason Comments Recheck Medication Blood Draw Patient requesting labs to mouna glover drawn. Patient has thyroid concerns. Abnormal Bleeding Problem Irregular periods. Patient w as bleeding most of December. Alot of vaginal pressure. Constipation Encounter Details Date Type Department Care Team Description 03/05/2012 Office Visit [facility] Esmer Roland uterine bleeding (Primary Dx); Clinic Sara Byrd MD Insomnia; [place] [address] [facility], [address] [place] [address] [place], [place] [phone] (Wo rk) [address] [phone] Social History Tobacco Use Types Packs/Day Years [...] but not now, doing very well PHQ-9 South African PHQ-9 Any Language ?? Amount of exercise [...] list, Allergies, and Medical/Social/Surgical histories reviewed in [facility] andupdated as appropriate. Labs reviewed in [facility] OBJECTIVE: BP 112/70 Pulse 65 Temp(Src) 98.5 [...] 03/05/2012 9:30 AM CDT >> MELISSA JANSEN [facility] Mar 05, 2012 9:43 AM Patient [...] athologist Signature Cholesterol 184 0 - 200 [facility] mg/dL CLINIC LAB Comment: LDL Cholesterol is the primary guide to therapy. The NCEP recommends further evaluation of: patients with cholesterol greater than 200 mg/dL if additional risk facto rs are present, cholesterol greater than 240 mg/dL, triglycerides greater than 1 50 mg/dL, or HDL less than 40 mg/dL. Triglycerides 135 0 - 150 mg/dL [facility] HDL Cholesterol 46 (L) 50 - 110 mg/dL [facility] LDL Cholesterol Calculated 111 0 - 129 mg/dL [facility] Comment: LDL Cholesterol is the primary guide to therapy: LDL-cholesterol goal in high risk patients is <100 mg/dL and in very high risk patients is <70 mg/dL. VLDL-Cholesterol 27 0 - 30 mg/dL [facility] Cholesterol/HDL Ratio 4.0 0.0 - 5.0 [facility] Specimen Anatomical Collection Method Collection Time Receive d Time (Source) Location / / Volume Laterality Blood specimen 03/05/2012 10:06 2 (specimen) AM CDT 10:08 AM CDT Esmer Roland MD LAB - BLOOD ORDERABLES Performing Organization Address [facility]/ZIP Code Phon e Number [address] [address] [phone] [facility] Basic metabolic panel (03/05/2012 10:06 AM CDT) P athologist Signature Sodium 141 133 - 144 [facility] mmol/L CLINIC LAB Potassium 4.8 3.4 - 5.3 [facility] mmol/L [facility] Chloride 106 94 - 109 [facility] mmol/L [facility] LAB Carbon Dioxide 24 20 - 32 [facility] mmol/L [facility]IC LAB Anion Gap 11 6 - 17 [facility] mmol/L [facility] LAB Glucose 83 60 - 99 [facility] mg/dL CLINIC LAB Urea Nitrogen 11 5 - 24 [facility] mg/dL CLINIC LAB Creatinine 0.90 0.52 - [facility] 1.04 mg/dL CLINIC LAB GFR Estimate 72 >60 [facility] mL/min/1.7 CLINIC LAB m2 GFR Estimate If 87 >60 [facility] Black mL/min/1.7 CLINIC LAB m2 Calcium 9.4 8.5 - 10.4 [facility] mg/dL CLINIC LAB Specimen Anatomical Collection Method Collection Time Receive d Time (Source) Location / / Volume Laterality Blood specimen 03/05/2012 10: 2 (specimen) AM CDT 10:08 AM CDT Esmer Roland MD LAB - BLOOD ORDERABLES Performing Organization Address City/[facility]/ZIP Code Phon e Number [address] [address] [phone] [facility] TSH with free T4 reflex (03/05/2012 10:06 AM CDT) athologist Signature TSH 1.21 0.4 - 5.0 [facility] [place] mU/L [facility]INIC LAB Specimen Anatomical Collection Method Collection Time Receive d Time (Source) Location / / Volume Laterality Blood specimen 03/05/2012 10: 2 (specimen) AM CDT 10:08 AM CDT Esmer Roland MD LAB - BLOOD ORDERABLES Performing Organization Address City/State/ZIP Code Phon e Number [facility] [address] [place] [address] [facility] documented in this encounter Visit Diagnoses Diagnosis Abnormal uterine bleeding - Primary Unspecified disorder of menstruation and other abnormal bleeding from female genital tract Insomnia Insomnia, unspecified Obesity Obesity, unspecified documented in this encounter Care Teams Lead Producer Relationship Specialty Start Date End Date Esmer Roland MD PCP - General Family Practice 09/21/10 01/29/17 documented as of this encounter
--- OUTSIDE RECORDS SUMMARY | 2022-04-11 21:46 | XMS_ITS | Encounter Summary ---
:1975 Author Organization [place] Address [address] [place] [address]. [place] [address] Care Team Providers Name Role Phone Esmer Roland MD Primary Care Provider [phone] Reason for Visit Reason Onset Date Comments Hives 03/13/2011 Encounter Details Date Type Department Care Team Description 03/13/2011 Telephone [facility] [place] [address] [facility], [address] [place] [address] [address] [place] [address] [place] [address] [phone] Social History Tobacco Use Types Packs/Day Years [...] unspecified documented in this encounter Care Teams Hand Gluer And Slicer Relationship Specialty Start Date End Date Esmer Roland MD PCP - General Family Practice 09/21/10 01/29/17 documented as of this encounter
--- OUTSIDE RECORDS SUMMARY | 2022-04-11 21:46 | XMS_ITS | Encounter Summary ---
:1975 Author Organization [place] Address [address] [place] [address]. [place] [address] Care Team Providers Name Role Phone Esmer Roland MD Primary Care Provider [phone] Reason for Visit Reason Onset Date Comments Refill Request 08/06/2011 Zolpidem Encounter Details Date Type Department Care Team Description 08/06/2011 Refill [facility] Esmer Roland Refill Request Clinic Sara Byrd MD (Zolpidem) [address] [facility], [address] [place] [address] [address] [place] [address] [place], [place] [phone] (Wo rk) [address] [phone] Social History Tobacco Use Types Packs/Day Years [...] RN, BSN Message handled by Nurse Triage. TH LEAD Telephone Encounter - Kristine Alston - 08/06/2011 12:27 PM CST Last Fill Date: 05/06/11 Last Fill Quantity: 90 Last Office Visit: 01/21/11 Kristien Alston, Pharmacy Float Ventilation Worker [facility] Des Carreon [email or web address] documented in this encounter Plan of Treatment Not on filedocumented as of this encounter Visit Diagnoses Diagnosis Insomnia Insomnia, unspecified documented in this encounter Care Teams Custodian Blood Bank Relationship Specialty Start Date End Date Esmer Roland MD PCP - General Family Practice 09/21/10 01/29/17 documented as of this encounter
--- OUTSIDE RECORDS SUMMARY | 2022-04-11 21:46 | XMS_ITS | Encounter Summary ---
:1975 Author Organization [place] Address [address] [place] [address] Care Team Providers Name Role Phone Esmer Roland MD Primary Care Provider [phone] Reason for Visit Reason Onset Date Comments Social Work Services 12/31/2010 Care Coordintion Encounter Details Date Type Department Care Team Description 12/31/2010 Telephone [facility] Martin Hauser ocial Work Services [facility] [place] Shane Garcia MD (Care Coordintion) [address] [place] [phone] [address] [phone] [place], [place] [address] (Wo rk) Social History [...] month She has counselor Martin Hauser MD [facility] Telephone Encounter - Kourtney Haynes - 12/31/2010 5:11 PM CDT Care Coordination Initial Semiconductors Wafer Breaker Assessment PCP: BHUMI HAUSER Referral Source: Patient identified from ED DC Census from [facility]. Utilization: Patient seen in ED on 12/30/2010. Notes from ED visit not available in EMR. Patient seen in [facility] today (12/31/2010) by PCP. No future PCP visits scheduled. Patient is to follow up with counselor in next 2 weeks. Patient last ED visit on 07/01/2010 at [facility] & admitted for depression. Only 1 ED in 2009. Disease State: Anxiety, depression (patient denies this & last PHQ ( done in 02/2009 with score of 19) Medications: patient started on ativan at ED Psychosocial: Patient is process of divorce & has 2 children ages (8 & 6). Plan: 1) No call out today as patient seen today by PCP. 2) Semiconductors Wafer Breaker to call out to patient on next business day. SONI KahnW, [facility] documented in this encounter Plan of Treatment Not on filedocumented as of this encounter Visit Diagnoses Not on filedocumented in this encounter Care Teams Promotions Manager Relationship Specialty Start Date End Date Esmer Roland MD PCP - General Family Practice 09/21/10 01/29/17 documented as of this encounter
--- OUTSIDE RECORDS SUMMARY | 2022-04-11 21:46 | XMS_ITS | Encounter Summary ---
:1975 Author Organization [place] Address [address] [place] [address]. [place] [address] Care Team Providers Name Role Phone Esmer Roland MD Primary Care Provider [phone] Reason for Visit Reason Onset Date Comments Refill Request 03/06/2011 LORAZEPAM 1MG Encounter Details Date Type Department Care Team Description 03/06/2011 Refill [facility] Esmer Roland Refill Request Clinic Sara Byrd MD (LORAZEPAM 1MG) [address] [place] [address], [address] [place] [address] [address] [place] [address] [place], [place] [phone] (Wo rk) [address] [phone] Social History Tobacco Use Types Packs/Day Years [...] documented in this encounter Care Teams Clinical Trial Assistant Relationship Specialty Start Date End Date Esmer Roland MD PCP - General Family Practice 09/21/10 01/29/17 documented as of this encounter
--- OUTSIDE RECORDS SUMMARY | 2022-04-11 21:46 | XMS_ITS | Encounter Summary ---
:1975 Author Organization [place] Address [address] [place] [address]. [place] [address] Care Team Providers Name Role Phone Esmer Roland MD Primary Care Provider [phone] Reason for Visit Reason Onset Date Comments Refill Request 05/06/2011 Tori Esteban Encounter Details Date Type Department Care Team Description 05/06/2011 Refill [facility] Esmer Roland Refill Request ([place], [facility] [place] By[place] MD Ativan) [address] [facility], [address] [place] [address] [address] [place] [address] [place], [place] [phone] (Wo rk) [address] [phone] Social History Tobacco Use Types Packs/Day Years Used Date Smoking Tobacco: Former Smokeless Tobacco: Never Comments: Very Occasional Alcohol Use Standard Drinks/Week Comments Yes 0 (1 standard drink = 0.6 oz pure alcoho l) 1 qo weekend Sex Assigned at Date Recorded Not on file documented as of this encounter Miscellaneous Notes Telephone Encounter - Esmer Roland MD - 05/06/2011 2:[address] Will print, unable to give that much ativan, she should not be taking 90 per month, usually only 30,will give 60 tabs to last longer [address] Telephone Encounter - Mayela Reese - 05/06/2011 2:26 PM CST Pt requesting refills with a 90 day supply as she will be losing her insurance soon. Thank you, Mayela Reese RN [address] documented in this encounter Plan of Treatment Not on filedocumented as of this encounter Visit Diagnoses Diagnosis ANXIETY STATE NOS Anxiety state, unspecified Insomnia Insomnia, unspecified documented in this encounter Care Teams Butadiene Converter Helper Relationship Specialty Start Date End Date Esmer Roland MD PCP - General Family Practice 09/21/10 01/29/17 documented as of this encounter
--- OUTSIDE RECORDS SUMMARY | 2022-04-11 21:46 | XMS_ITS | Encounter Summary ---
:1975 Author Organization [place] Address [address] [place] [address] Care Team Providers Name Role Phone Esmer Roland MD Primary Care Provider [phone] Encounter Details Date Type Department Care [...] RESULTS Atrial Rate 92 BPM RADIOLOGY RESULTS DE Interval 112 ms RADIOLOGY RESULTS QRS Duration 82 ms RADIOLOGY RESULTS QT 332 ms RADIOLOGY RESULTS QTc 410 ms RADIOLOGY RESULTS P [place] 42 degrees RADIOLOGY RESULTS R AXIS 69 degrees RADIOLOGY RESULTS T [place] -36 degrees RADIOLOGY RESULTS Interpretation AGE AND [...] on filedocumented in this encounter Care Teams Tray Service Worker Relationship Specialty Start Date End Date Esmer Roland MD PCP - General Family Practice 09/21/10 01/29/17 documented as of this encounter
--- OUTSIDE RECORDS SUMMARY | 2022-04-11 21:46 | XMS_ITS | Encounter Summary ---
:1975 Author Organization [place] Address [facility] [place] [address] Care Team Providers Name Role Phone Esmer Roland MD Primary Care Provider [phone] Reason for Visit Reason Onset Date Comments Refill Request 03/10/2012 Carlito Encounter Details Date Type Department Care Team Description 03/10/[address] [facility] Esmer Roland Refill Request (Carlito) Clinic Sara Byrd MD [address] [place] [address], [address] [place] [address] [address] [place] [address] [place], [place] [phone] (Wo rk) [address] [phone] Social History Tobacco Use Types Packs/Day Years [...] Office Visit 03/05/12 Thank You Jose [facility] Float Tech [email or web address] documented in this encounter Plan of Treatment Not on filedocumented as of this encounter Visit Diagnoses Diagnosis Insomnia - Primary Insomnia, unspecified documented in this encounter Care Teams Manager Paper Relationship Specialty Start Date End Date Esmer Roland MD PCP - General Family Practice 09/21/10 01/29/17 documented as of this encounter
--- OUTSIDE RECORDS SUMMARY | 2022-04-11 21:46 | XMS_ITS | Encounter Summary ---
:1975 Author Organization [place] Address [address] [place] [address] Care Team Providers Name Role Phone Esmer Roland MD Primary Care Provider [phone] Reason for Visit Reason Onset Date Comments Medication Request 03/21/2011 AMBIEN 1OMG VS 5MG Encounter Details Date Type Department Care Team Description 03/21/[address] [facility] Esmer Roland Medicat ion Request Clinic GeorgeOsman Byrd MD (AMBIEN 1OMG VS 5MG) [address] [place] [address] [place] [phone] Social History Tobacco Use Types Packs/Day Years [...] NEED A NEW RX SENT OVER. THANKS! [facility] documented in this encounter Plan of Treatment Not on filedocumented as of this encounter Visit Diagnoses Diagnosis Insomnia - Primary Insomnia, unspecified documented in this encounter Care Teams Plaster Tender Relationship Specialty Start Date End Date Esmer Roland MD PCP - General Family Practice 09/21/10 01/29/17 documented as of this encounter
--- OUTSIDE RECORDS SUMMARY | 2022-04-11 21:46 | XMS_ITS | Encounter Summary ---
:1975 Author Organization [place] Address [facility] [place] [address] Care Team Providers Name Role Phone Esmer Roland MD Primary Care Provider [phone] Reason for Visit Reason Onset Date Comments Refill Request 02/08/2012 Encounter Details Date Type Department Care Team Description 02/08/[address] [facility] Esmer Roland, Refill Request Carmen Brewer MD [address] [place] [phone] [place] [id number] (Wo rk) Social History Tobacco Use [...] unspecified documented in this encounter Care Teams Anthropology Professor Relationship Specialty Start Date End Date Esmer Roland MD PCP - General Family Practice 09/21/10 01/29/17 documented as of this encounter
--- OUTSIDE RECORDS SUMMARY | 2022-04-11 21:46 | XMS_ITS | Encounter Summary ---
:1975 Author Organization [place] Address [facility] [place] [address] Care Team Providers Name Role Phone Esmer Roland MD Primary Care Provider [phone] Reason for Visit Reason Onset Date Comments Forms 04/18/2011 FMLA recert Encounter Details Date Type Department Care Team Description 04/18/[address] [facility] Esmer Roland Forms ( FMLA recert) Clinic [place]rd [place] [address] [place] [address], [address] [place] [address] [address] [place] [address] [place], [place] [phone] (Wo rk) [address] [phone] Social History Tobacco Use Types Packs/Day Years [...] hope the time is not needed! Dariana CTOR OF USER EXPERIENCE documented in this encounter Plan of Treatment Not on filedocumented as of this encounter Visit Diagnoses Not on filedocumented in this encounter Care Teams Cyber Forensic Specialist Relationship Specialty Start Date End Date Esmer Roland MD PCP - General Family Practice 09/21/10 01/29/17 documented as of this encounter
--- OUTSIDE RECORDS SUMMARY | 2022-04-11 21:47 | XMS_ITS | Encounter Summary ---
:1975 Author Organization [place] Address [address] [place] [address] Care Team Providers Name Role Phone Melvin Palacios MD Primary Care Provider Reason for Visit Reason Onset Date Comments Refill Request 10/23/2009 Sonu Encounter Details Date Type Department Care Team Description 10/23/2009 Refill [facility] Melvin Palacios MD Refill Request (KLONOPIN [facility] [address] Janie [address] anish) [address] [place] [address] [place] [address] [phone] Social History Tobacco Use Types Packs/Day Years [...] Walked scripts for klonopin and zolpidem to [facility] pharmacy. Arlene Lopez RN Telephone Encounter [...] KLONOPIN=07/31/09, AMBIEN=09/11/09 QTY: KLONOPIN=40, AMBIEN=30 Camilo Hammonds [facility] documented in this encounter Plan of Treatment Not on filedocumented as of this encounter Visit Diagnoses Diagnosis Adjustment disorder with anxiety - Prima ry documented in this encounter Care Teams Horse Rider Relationship Specialty Start Date End Date Melvin Palacios MD PCP - General 06/22/99 09/20/10 [address] [id number] documented as of this encounter
--- OUTSIDE RECORDS SUMMARY | 2022-04-11 21:47 | XMS_ITS | Encounter Summary ---
:1975 Author Organization [place] Address [address] [place] [address] Care Team Providers Name Role Phone Melvin Palacios MD Primary Care Provider Reason for Visit Reason Onset Date Comments Sinus Problem 06/11/2010 Sinus infection Encounter Details Date Type Department Care Team Description 06/11/2010 Telephone [facility] Melvin Palacios MD Sinus Problem (Sinus Clinic [place] [address] [place] infection) [address] [address] [phone] Social History Tobacco Use Types Packs/Day Years Used Date Smoking Tobacco: Every Day Comments: 1-2 every other day Alcohol Use Standard Drinks/Week Comments Yes 0 (1 standard drink = 0.6 oz pure alcoho l) 1 qo week Sex Assigned at Date Recorded Not on file documented as of this encounter Miscellaneous Notes Telephone Encounter - Esmer Roland - 06/11/2010 4:29 PM CST I will send it over. This maybe viral, if she can wait and see if improving, after 7 days, then start the abx, that would be best PLATFORM SUPERVISOR Telephone Encounter - Mayela Reese - [...] an antibiotic for her. Mayela Reese RN PLATFORM SUPERVISOR documented in this encounter Plan of Treatment Not on filedocumented as of this encounter Visit Diagnoses Diagnosis Acute maxillary sinusitis - Primary documented in this encounter Care Teams Brine Room Laborer Relationship Specialty Start Date End Date Melvin Palacios MD PCP - General 06/22/99 09/20/10 [address] [id number] documented as of this encounter
--- OUTSIDE RECORDS SUMMARY | 2022-04-11 21:47 | XMS_ITS | Encounter Summary ---
:1975 Author Organization [place] Address [address] [place] [address] Care Team Providers Name Role Phone Melvin Palacios MD Primary Care Provider Reason for Visit Reason Onset Date Comments Refill Request 02/26/2010 VITAMIN D 50,000 Encounter Details Date Type Department Care Team Description 02/26/2010 Refill [facility] Melvin Palacios MD Refill Request (VITAMIN Clinic [place] [address] [place] D 50,000) [address] [place], [place] S[place]UE[place] [phone] Social History Tobacco Use Types Packs/Day Years [...] on filedocumented in this encounter Care Teams Handwriting Expert Relationship Specialty Start Date End Date Melvin Palacios MD PCP - General 06/22/99 09/20/10 [address] [place] [address] [place] [address] documented as of this encounter
--- OUTSIDE RECORDS SUMMARY | 2022-04-11 21:47 | XMS_ITS | Encounter Summary ---
:1975 Author Organization [place] Address [address] [place] [address] Care Team Providers Name Role Phone Fawad Roland MD Primary Care Provider [phone] Reason for Visit Reason Comments Lesion Removal Mole removal right forearm. Encounter Details Date Type Department Care Team Description 09/21/2010 Office Visit [facility] Fawad Roland l mole Clinic Sara Byrd MD (Primary Dx) [place] [address] [facility], [address] [place] [address] [place], [place] [phone] (Wo rk) [address] [phone] Social History Tobacco Use Types Packs/Day Years [...] Body Mass Index 26.16 08/14/2010 8:58 AM BI APPLICATION DEVELOPER documented in this encounter Progress Notes Fawad [...] Component Value Ref Test Analysis Performed At [facility] gist Range Method Time Signature Copath Report Patient Name: DARIANA VALDEZ MR#: [id number] Specimen #: [id number] Collected: 09/21/2010 Received: 09/22/2010 Reported: 09/24/2010 18:22 [...] obtained (MGP). SA/imani 09-24-10 TESTING LAB LOCATION: [address] ??[id number] COLLECTION SITE: Client: [facility] Location: [facility] (R) Specimen Anatomical [...] d documented in this encounter Care Teams Political Research Scientist Relationship Specialty Start Date End Date Fawad Roland MD PCP - General Family Practice 09/21/10 01/29/17 documented as of this encounter
--- OUTSIDE RECORDS SUMMARY | 2022-04-11 21:47 | XMS_ITS | Encounter Summary ---
:1975 Author Organization [place] Address [address] [place] [address]. [place] [address] Care Team Providers Name Role Phone Melvin Palacios MD Primary Care Provider Encounter Details Date Type Department Care Team Description 07/03/2010 Historic Notes INTERFACED REPORT James Bautista MD [address] [place] [address] (Wo rk) Social History Tobacco [...] on filedocumented in this encounter Care Teams Circular Distributor Relationship Specialty Start Date End Date Melvin Palacios MD PCP - General 06/22/99 09/20/10 [address] [id number] documented as of this encounter
--- OUTSIDE RECORDS SUMMARY | 2022-04-11 21:47 | XMS_ITS | Encounter Summary ---
:1975 Author Organization [place] Address [address] [facility] [place] [address] Care Team Providers Name Role Phone Melvin Palacios MD Primary Care Provider Encounter Details Date Type Department Care Team Description 07/05/2010 Discharge Summary [facility] Allen Bautista (Assembler Fishing Floats) [facility] MD Shay Results [address] [place] [address] (Wo rk) Social History Tobacco Use Types Packs/Day Years Used Date Smoking Tobacco: Every Day Comments: 1-2 every other day Alcohol Use Standard Drinks/Week Comments Yes 0 (1 standard drink = 0.6 oz pure alcoho l) 1 qo week Sex Assigned at Date Recorded Not on file documented as of this encounter Progress Notes Allen Bautista - 07/08/2010 9:58 PM TEACHER EDUCATION INSTRUCTOR FINAL IDENTIFICATION: Juan Carlos Valdez is a [...] MT: [place] Name: JUAN CARLOS VALDEZ Account: [id number] : 1975 Admit Date: Discharge Date: 07/06/2010 Document: [id number] cc: Melvin Palacios MD [facility] Az Hodge MD HER EDUCATION INSTRUCTOR documented in this encounter Plan of Treatment Not on filedocumented as of this encounter Visit Diagnoses Not on filedocumented in this encounter Care Teams Trainmaster Relationship Specialty Start Date End Date Melvin Palacios MD PCP - General 06/22/99 09/20/10 [address] [address] documented as of this encounter
--- OUTSIDE RECORDS SUMMARY | 2022-04-11 21:47 | XMS_ITS | Encounter Summary ---
:1975 Author Organization [place] Address [address] [place] [address] Care Team Providers Name Role Phone Esmer Roland MD Primary Care Provider [phone] Reason for Visit Reason Comments UTI RN protocol UTI Encounter Details Date Type Department Care Team Description 10/10/2010 Allied Health/Nurse [facility] UTI (RN protocol UTI) Visit Clinic [address], [address] [place] [address] Social History Tobacco Use Types [...] is agreeable. Encounter handled by: Nurse Triage. Mayela Reese RN documented in this encounter [...] Results URINE CULTURE (10/10/2010 9:23 AM CDT) [facility] Method Time Signature Specimen Midstream [place] Description Urine [facility] Culture Micro No growth [facility] Micro Report FINAL [place] Status 10/12/2010 [facility] Specimen Anatomical Collection Method Collection Time Receive d Time (Source) Location / / Volume Laterality 10/10/2010 9:23 AM 1 9:25 CDT AM CDT Esmer Roland MD LAB - MICRO GENERAL ORDERABL ES Performing Organization Address City/[facility]/ZIP [facility] Phon e Number [facility] [address] [place] [address] [phone] [facility] (ABNORMAL) Microscopic exam urine (10/10/2010 9:13 AM CDT) [facility] Method Time Signature WBC Urine 5-10 (A) 0 - 2 [place] /HPF [facility] RBC Urine 5-10 (A) 0 - 2 [place] /HPF [facility] Squamous Moderate (A) FEW /LPF [place] Epithelial [place] /LPF Urine CLINIC LAB Bacteria Urine Few (A) NEG /HPF [facility] Mucous Urine Present (A) NEG /LPF [facility] Specimen Anatomical Collection Method Collection Time Receive d Time (Source) Location / / Volume Laterality 10/10/2010 9:13 AM 1 9:15 CDT AM CDT Esmer Roland MD LAB - URINE ORDERABLES Performing Organization Address City/[facility] Phon e Number [facility] [place] [address] [facility] (ABNORMAL) UA macroscopic with reflex to micro (10/10/2010 9:13 AM CDT) [facility] Method Time Signature Color Urine Cathy [facility] Appearance Urine Slightly [place] Cloudy [facility] Glucose Urine Negative NEG mg/dL [facility] Bilirubin Urine Negative NEG [facility] Ketones Urine Trace (A) NEG mg/dL [facility] Specific [place] 1.025 1.003 - [place] Urine 1.035 [facility] Blood Urine Small (A) NEG [facility] pH Urine 5.5 5.0 - 7.0 [place] pH [facility] Protein Albumin Trace (A) NEG mg/dL [place] Urine [facility] Urobilinogen 1.0 0.2 - 1.0 [place] Urine EU/dL [facility] Nitrite Urine Negative NEG [facility] Leukocyte Trace (A) NEG [place] Esterase Urine [facility] Source Midstream [place] Urine [facility] Specimen Anatomical Collection Method Collection Time Receive d Time (Source) Location / / Volume Laterality Urine specimen 10/10/2010 9:13 AM 011 9:15 (specimen) CDT AM CDT Esmer Roland MD LAB - URINE ORDERABLES Performing Organization Address City/State/ZIP Code Phon e Number [facility] [place] [address] [facility] documented in this encounter Visit Diagnoses Diagnosis Dysuria - Primary Other nonspecific finding on examination of urine documented in this encounter Care Teams Adult Psychiatrist Relationship Specialty Start Date End Date Esmer Roland MD PCP - General Family Practice 09/21/10 01/29/17 documented as of this encounter
--- OUTSIDE RECORDS SUMMARY | 2022-04-11 21:47 | XMS_ITS | Encounter Summary ---
:1975 Author Organization [place] Address [address] [place] [address]. [place] [address] Care Team Providers Name Role Phone Melvin Palacios MD Primary Care Provider Encounter Details Date Type Department Care Team Description 07/01/2010 [facility] Vishal Ruffin Results [address] [place] [address] (Wo rk) Social History Tobacco Use Types Packs/Day Years Used Date Smoking Tobacco: Every Day Comments: 1-2 every other day Alcohol Use Standard Drinks/Week Comments Yes 0 (1 standard drink = 0.6 oz pure alcoho l) 1 qo week Sex Assigned at Date Recorded Not on file documented as of this encounter Progress Notes Ángela Rodriguez - 07/26/2010 11:56 PM PLASTIC PRINTER FINAL ADDENDUM TO T-NOTE CHIEF COMPLAINT: Depression [...] 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 Review of systems otherwise negative. 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 PHYSICAL EXAMINATION: VITAL [...] MD MT: TOSHA Name: DARIANA VALDEZ Account: [id number] : 1975 Visit Date: 07/01/2010 Document: [id number] cc: [facility] TIC PRINTER documented in this encounter Plan of Treatment Not on filedocumented as of this encounter Visit Diagnoses Not on filedocumented in this encounter Care Teams Housing Assistant Property Manager Relationship Specialty Start Date End Date Melvin Palacios MD PCP - General 06/22/99 09/20/10 [address] [id number] documented as of this encounter
--- OUTSIDE RECORDS SUMMARY | 2022-04-11 21:47 | XMS_ITS | Encounter Summary ---
:1975 Author Organization [place] Address [address] [place] [address]. [place] [address] Care Team Providers Name Role Phone Melvin Palacios MD Primary Care Provider Encounter Details Date Type Department Care Team Description 07/04/2010 Historic Notes INTERFACED REPORT James Bautista MD [address] [place] [address] (Wo rk) Social History Tobacco [...] on filedocumented in this encounter Care Teams Repack Room Worker Relationship Specialty Start Date End Date Melvin Palacios MD PCP - General 06/22/99 09/20/10 [address] [id number] documented as of this encounter
--- OUTSIDE RECORDS SUMMARY | 2022-04-11 21:47 | XMS_ITS | Encounter Summary ---
:1975 Author Organization [place] Address [address] [place] [address]. [place] [address] Care Team Providers Name Role Phone Melvin Palacios MD Primary Care Provider Encounter Details Date Type Department Care Team Description 07/02/2010 Historic Notes INTERFACED REPORT Brian Shukla MD [address] [place] [address] [facility] [address] [place], [place] [address] (Wo rk) Social History Tobacco Use Types [...] Medicine consult dictated. Thanks. [Signature] Author: OTONIEL HSUKLA) [Signed 12:56] documented in this encounter Plan of Treatment Not on filedocumented as of this encounter Visit Diagnoses Not on filedocumented in this encounter Care Teams Carroting Machine Offbearer Relationship Specialty Start Date End Date Melvin Palacios MD PCP - General 06/22/99 09/20/10 [address] [id number] documented as of this encounter
--- OUTSIDE RECORDS SUMMARY | 2022-04-11 21:47 | XMS_ITS | Encounter Summary ---
:1975 Author Organization [facility] Address [address] [place] [address] Care Team Providers Name Role Phone Melvin Palacios MD Primary Care Provider Esmer Roland MD Primary Care Provider [phone] Encounter Details Date Type Department Care Team Description 09/17/2010 Orders Only [facility] Fat igue; [facility] Family history of thyroid di noellee [facility], [address] [place] [address] Social History Tobacco Use [...] athologist Signature TSH 1.47 0.4 - 5.0 [facility] [place]/L [facility]IN[facility] LAB Specimen Anatomical Collection Method Collection Time Receive d Time (Source) Location / / Volume Laterality Blood specimen 09/17/2010 2:04 PM 011 2:06 (specimen) CDT PM CDT Esmer Roland MD LAB - BLOOD ORDERABLES Performing Organization Address City/State/ZIP Code Phon e Number [facility] [address] [place] [address] [facility] LAB documented in this encounter Visit Diagnoses Diagnosis Fatigue Other malaise and fatigue Family history of thyroid disease Family history of other endocrine and me tabolic diseases documented in this encounter Care Teams Csr Technician Relationship Specialty Start Date End Date Melvin Palacios MD PCP - General 06/22/99 09/20/10 [address] [place] [address] Esmer Roland MD PCP - General Family Practice 09/21/10 01/29/17 documented as of this encounter
--- OUTSIDE RECORDS SUMMARY | 2022-04-11 21:47 | XMS_ITS | Encounter Summary ---
:1975 Author Organization [place] Address [address] [place] [address] Care Team Providers Name Role Phone Melvin Palacios MD Primary Care Provider Reason for Visit Reason Comments Abnormal Uterine Bleeding abnormal bleeding for severa l months Encounter Details Date Type Department Care Team Description 11/07/2009 Office Visit [facility] Cayetano Jung Adjustm ent Disorder with Anxiety (Primary Dx); Clinic [place] Abnormal Uterine Bleeding [address] [address] [facility] 100 [address] [place], [place] [address] Social History Tobacco Use Types Packs/Day Years [...] athologist Signature TSH 1.14 0.4 - 5.0 [facility] mU/L [facility] LAB Specimen Anatomical Collection Method Collection Time Receive d Time (Source) Location / / Volume Laterality 11/07/2009 4:36 PM 0 4:37 CDT PM CDT Cayetano Jung MD LABORATORY Performing Organization Address City/State/ZIP Code Phon e Number [facility] [address] [place] [address] [facility] LAB SURGICAL PATHOLOGY (11/07/2009 12:00 AM CDT) Component Value Ref Test Analysis Performed At [facility] gist Range Method Time Signature Copath Report Patient Name: DARIANA VALDEZ MR#: [id number] Specimen #: [id number] Collected: 11/07/2009 Received: 11/08/2009 Reported: 11/09/2009 14:35 [...] ot identified. KARLEE/imani 11-09-09 TESTING LAB LOCATION: [facility] [address] [place], [place] ??[address] COLLECTION SITE: Client: [facility] Location: LVOB (R) Specimen (Source) [...] tract documented in this encounter Care Teams Family Medicine Resident Relationship Specialty Start Date End Date Melvin Palacios MD PCP - General 06/22/99 09/20/10 [address] [address] documented as of this encounter
--- OUTSIDE RECORDS SUMMARY | 2022-04-11 21:47 | XMS_ITS | Encounter Summary ---
:1975 Author Organization [facility] Address [address] [place] [place] [address] Care Team Providers Name Role Phone Melvin Palacios MD Primary Care Provider Reason for Visit Reason Onset Date Comments Refill Request 02/26/2010 VIT D Encounter Details Date Type Department Care Team Description 02/26/2010 Refill [facility] Gurmeet Jimenez th, Refill Request (VIT D) [facility] [address] [place] [address] [place] [address] [place], [place] [phone] [address] (Wo rk) Social History Tobacco Use [...] FILL DATE: 01/25/10 QTY: 4 Camilo Hammonds [facility] documented in this encounter Plan of Treatment Not on filedocumented as of this encounter Visit Diagnoses Diagnosis Vitamin D deficiency - Primary Unspecified vitamin D deficiency documented in this encounter Care Teams Doctor Chiropractic Relationship Specialty Start Date End Date Melvin Palacios MD PCP - General 06/22/99 09/20/10 [address] [address] documented as of this encounter
--- OUTSIDE RECORDS SUMMARY | 2022-04-11 21:47 | XMS_ITS | Encounter Summary ---
:1975 Author Organization [place] Address [address] [place] [address]. [place] [address] Care Team Providers Name Role Phone Melvin Palacios MD Primary Care Provider Encounter Details Date Type Department Care Team Description 07/02/2010 Consultation [facility] Brian Shukla MD [address] [place] Results [address] [place] [address] (Wo rk) Social History Tobacco Use Types Packs/Day Years Used Date Smoking Tobacco: Every Day Comments: 1-2 every other day Alcohol Use Standard Drinks/Week Comments Yes 0 (1 standard drink = 0.6 oz pure alcoho l) 1 qo week Sex Assigned at Date Recorded Not on file documented as of this encounter Progress Notes Otoniel Shukla MD - 08/12/2010 4:33 PM MAT MACHINE OPERATOR FINAL REQUESTING PHYSICIAN: Allen Rose MD. HISTORY [...] AUBREY Name: DARIANA VALDEZ MRN: [id number] Account: [id number] : 1975 Consult Date: 07/02/2010 Document: [id number] cc: Allen Rose MD MACHINE OPERATOR documented in this encounter Plan of Treatment Not on filedocumented as of this encounter Visit Diagnoses Not on filedocumented in this encounter Care Teams Pump Operator Byproducts Relationship Specialty Start Date End Date Melvin Palacios MD PCP - General 06/22/99 09/20/10 [address] [address] documented as of this encounter
--- OUTSIDE RECORDS SUMMARY | 2022-04-11 21:47 | XMS_ITS | Encounter Summary ---
:1975 Author Organization [place] Address [address] [place] [address] Care Team Providers Name Role Phone Melvin Palacios MD Primary Care Provider Esmer Roland MD Primary Care Provider [phone] Encounter Details Date Type Department Care Team Description 07/01/2010 Historic Technology Coach INTERFACED REPORT Cooper MD [address] [facility]. [address] [place] [address] (Wo rk) Social History Tobacco Use Types Packs/Day Years Used Date Smoking Tobacco: Every Day Comments: 1-2 every other day Alcohol Use Standard Drinks/Week Comments Yes 0 (1 standard drink = 0.6 oz pure alcoho l) 1 qo week Sex Assigned at Date Recorded Not on file documented as of this encounter Progress Notes Allen Bautista - 05/13/2011 6:32 PM LOGISTICS RESEARCH ENGINEER FINAL INSURANCE: [place]. IDENTIFICATION: Juan Carlos Valdez is a 34-year-old [...] works at least full-time basis at the [employer] and then a 2nd clinic, [employer] [facility], in the evening until 10 p.m.; therefore, [facility] from 8 until 4 p.m. She identifies [...] ever since. 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 He too is a resident in [place] and lives independently. She indicates his girlfriend [...] prescribed by her primary nurse practitioner at [facility]. 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 The [...] compromised because of her unresolved distress. DIAGNOSES: [place] I: 1. Depression, major, recurrent. 2. Panic disorder, part of anxiety. [place] III: Per primary care. [place] IV: Stressors: Moderate. [place] V: Global Assessment of Functioning at 10-20 [...] Name: JUAN CARLOS VALDEZ MRN: [id number] Account: [id number] : 1975 Admitted: [id number] Document: [id number] cc: [facility] Ángela Hammonds RN STICS RESEARCH ENGINEER documented in this encounter Plan of Treatment Not on filedocumented as of this encounter Visit Diagnoses Not on filedocumented in this encounter Care Teams Curb Hop Relationship Specialty Start Date End Date Melvin Palacios MD PCP - General 06/22/99 09/20/10 [address] [address] Esmer Roland MD PCP - General Family Practice 09/21/10 01/29/17 documented as of this encounter
--- OUTSIDE RECORDS SUMMARY | 2022-04-11 21:47 | XMS_ITS | Encounter Summary ---
:1975 Author Organization [place] Address [address] [place] [address] Care Team Providers Name Role Phone Melvin Palacios MD Primary Care Provider Encounter Details Date Type Department Care Team Description 07/05/2010 Historic Notes INTERFACED REPORT James Bautista MD [address] [facility] [address] [place] [address] (Wo rk) Social History Tobacco [...] to medication prepare for discharge coordinate with team primary care physician Review of Systems - Constitutional: Negative - [...] filedocumented in this encounter Care Teams Supervisor Electronics Inspection Relationship Specialty Start Date End Date Melvin Palacios MD PCP - General 06/22/99 09/20/10 [address] [address] documented as of this encounter
--- OUTSIDE RECORDS SUMMARY | 2022-04-11 21:47 | XMS_ITS | Encounter Summary ---
:1975 Author Organization [place] Address [address] [place] [address] Care Team Providers Name Role Phone Esmer Roland MD Primary Care Provider [phone] Reason for Visit Reason Onset Date Comments Refill Request 11/20/2010 orlando oconnell Encounter Details Date Type Department Care Team Description 11/20/[address] [facility] Harris Jung MD Refill Request (Jamie oconnell [address] [facility] ANAMARIA perry) [address] [place] [address] [facility] 100 1 31 160 [place] [phone] Social History Tobacco Use Types Packs/Day Years [...] and [facility] HARRIS JUNG MD Telephone Encounter - Triston Sandoval - 11/20/2010 1:15 PM CDT Trazodone LAST FILL DATE: 10/03/2010 LAST FILL QTY: 30 Zolpidem LAST FILL DATE: 10/03/2010 LAST FILL QTY: 30 FLOAT JACK TAMP OPERATOR TRISTON SNADOVAL On license of [facility] documented in this encounter Plan of Treatment Not on filedocumented as of this encounter Visit Diagnoses Diagnosis Major depressive disorder, single episod e, severe, without mention of psychotic behavior Influenza A Influenza with other respiratory manifes tations Insomnia Insomnia, unspecified documented in this encounter Care Teams Senior Asp Net Developer Relationship Specialty Start Date End Date Esmer Roland MD PCP - General Family Practice 09/21/10 01/29/17 documented as of this encounter
--- OUTSIDE RECORDS SUMMARY | 2022-04-11 21:47 | XMS_ITS | Encounter Summary ---
:1975 Author Organization [address] [place] [address] Care Team Providers Name Role Phone Melvin Palacios MD Primary Care Provider Encounter Details Date Type Department Care Team Description 07/01/2010 Historic Results [facility] Ángela Rodriguez Emergency Department MD Laly [address] [address] [place] [address] (Wo rk) Social History Tobacco [...] STAT 07/01/2010 7:20 PM Results for this [facility] procedure are i n the results section. DRUG ABUSE SCREEN 8 Routine 07/01/2010 7:20 PM Re sults for this URINE (UR) [facility] procedure are i n the results section. TSH WITH FREE T4 Routine 07/01/2010 6:40 PM Resul ts for this REFLEX [facility] procedure are i n the results section. HEPATIC FUNCTION PANEL Routine 07/01/2010 6:40 PM Results for this [facility] procedure are i n the results section. GGT Routine 07/01/2010 6:40 PM Results f or this [facility] procedure are i n the results section. ETHYL ALCOHOL LEVEL STAT 07/01/2010 6:40 PM Re sults for this [facility] procedure are i n the results section. ACETAMINOPHEN LEVEL STAT 07/01/2010 6:40 PM Re sults for this [facility] procedure are i n the results section. BASIC METABOLIC PANEL STAT 07/01/2010 6:40 PM Results for this [facility] procedure are i n the results section. CBC WITH PLATELETS Routine 07/01/2010 6:40 PM Res ults for this [facility] procedure are i n the results section. documented in this encounter Results HCG qualitative urine (07/01/2010 7:20 PM [facility]) P athologist Signature HCG Qual Urine Negative NEG [place] Specimen Anatomical Collection Method Collection Time Receive d Time (Source) Location / / Volume Laterality 07/01/2010 7:20 PM 1 6:23 [facility] PM [facility] Ángela Rodriguez MD LAB - URINE ORDERABLES Performing Organization Address City/State/ZIP Code Phon e Number [place] (ABNORMAL) Drug abuse screen 8 urine (UR) (07/01/2010 7:20 PM [facility]) Patholo gist Method Time Signature Amphetamine Qual [...] Volume Laterality 07/01/2010 7:20 PM 1 9:36 [facility] PM [facility] Ángela Rodriguez MD LAB - URINE ORDERABLES Performing Organization Address [facility] Code Phon e Number [place] Basic metabolic panel (07/01/2010 6:40 PM [facility]) P athologist Signature Sodium 141 133 - [...] Volume Laterality 07/01/2010 6:40 PM 1 6:23 [facility] PM [facility] Ángela Rodriguez MD LAB - BLOOD ORDERABLES Performing Organization Address [facility] Phon e Number [place] Acetaminophen level (07/01/2010 6:40 PM [facility]) Analysis Performed At Patho logist Time Signature Acetaminophen <10 mg/L [place] Level Specimen Anatomical Collection Method Collection Time Receive d Time (Source) Location / / Volume Laterality 07/01/2010 6:40 PM 1 6:23 [facility] PM [facility] Ángela Rodriguez MD LAB - BLOOD ORDERABLES Performing Organization Address [facility] Code Phon e Number [place] Alcohol ethyl (07/01/2010 6:40 PM [facility]) P athologist Signature Ethanol g/dL <0.01 0.01 g/dL [place] Specimen Anatomical Collection Method Collection Time Receive d Time (Source) Location / / Volume Laterality 07/01/2010 6:40 PM 1 6:23 [facility] PM [facility] Ángela Rodriguez MD LAB - BLOOD ORDERABLES Performing Organization Address City/State/ZIP Code Phon e Number [place] (ABNORMAL) Hepatic panel (07/01/2010 6:40 PM [facility]) Patholo gist Method Time Signature AST 22 [...] / Volume Laterality 07/01/2010 6:40 PM 1 [facility] 11:58 PM [facility] Ángela Rodriguez MD LAB - BLOOD ORDERABLES Performing Organization Address [facility]/ZIP Code Phon e Number [place] CBC with platelets (07/01/2010 6:40 PM [facility]) P athologist Signature MCV 90 78 - [...] / Volume Laterality 07/01/2010 6:40 PM 1 [facility] 11:58 PM [facility] Ángela Rodriguez MD LAB - BLOOD ORDERABLES Performing Organization Address City/State/ZIP Code Phon e Number [place] GGT (07/01/2010 6:40 PM [facility]) P athologist Signature GGT 16 0 - 40 U/L [place] Specimen Anatomical Collection Method Collection Time Receive d Time (Source) Location / / Volume Laterality 07/01/2010 6:40 PM 1 [facility] 11:58 PM [facility] Ángela Rodriguez MD LAB - BLOOD ORDERABLES Performing Organization Address City/[facility] Phon e Number [place] TSH with free T4 reflex (07/01/2010 6:40 PM [facility]) P athologist Signature TSH 1.64 0.4 - 5.0 [place] mU/L Specimen Anatomical Collection Method Collection Time Receive d Time (Source) Location / / Volume Laterality 07/01/2010 6:40 PM 1 [facility] 11:58 PM [facility] Ángela Rodriguez MD LAB - BLOOD ORDERABLES Performing Organization Address [facility] Phon e Number [place] documented in this encounter Visit Diagnoses Not on filedocumented in this encounter Care Teams Application Software Engineer Relationship Specialty Start Date End Date Melvin Palacios MD PCP - General 06/22/99 09/20/10 [address] [id number] documented as of this encounter
--- OUTSIDE RECORDS SUMMARY | 2022-04-11 21:47 | XMS_ITS | Encounter Summary ---
:1975 Author Organization [facility] Address [address] [place] [address] Care Team Providers Name Role Phone Esmer Roland MD Primary Care Provider [phone] Reason for Visit Reason Comments STD Encounter Details Date Type Department Care Team Description 10/12/2010 Office Visit [facility] Esmer Roland is (Primary Clinic Sara Byrd MD Dx) [address] [facility], [address] [place] [address] [place], [place] [phone] (Wo rk) [address] [phone] Social History Tobacco Use Types Packs/Day Years [...] Body Mass Index 25.89 08/14/2010 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 trachomatis rRNA by folded towel machine operator mediated amplification. [facility] Trachomatis A negative result by transc ription mediated amplification does not preclude the [place] PCR presence of C. trachomatis infection because results are dependent on proper CAMPUS LABS and adequate collection, absence of inhibitors, and suffici ent rRNA to be detected. Specimen Anatomical Collection Method Collection Time Receive d Time (Source) Location / / Volume Laterality 10/12/2010 8:48 AM 1 8:50 CDT AM CDT Esmer Roland MD LAB - MICRO ORDERABL ES Performing Organization Address City/[facility]/ZIP Code Phon e Number [address] LAB [facility] Neisseria gonorrhoeae PCR (10/12/2010 8:48 AM CDT) Component Value Ref Test Analysis Performed At [facility] Method Time Signature Specimen Vagina [facility] LAB N Gonorrhea Negative for N. gonorrhoeae rRNA by folded towel machine operator mediated amplification. [facility] PCR A negative result by transc ription mediated amplification does not preclude the [place] presence of N. gonorrhoeae infection because re sults are dependent on proper CAMPUS LABS and adequate collection, absence of inhibitors, and suffici ent rRNA to be detected. Specimen Anatomical Collection Method Collection Time Receive d Time (Source) Location / / Volume Laterality 10/12/2010 8:48 AM 1 8:50 CDT AM CDT Esmer Roland MD LAB - MICRO GENERAL ORDERABL ES Performing Organization Address City/[facility]/ZIP Code Phon e Number [address] LAB [facility] Wet prep (10/12/2010 8:48 AM CDT) Component Value Ref Test Analysis Performed At Patholo gist Range Method Time Signature Specimen Vagina [place] Description [facility] LAB Wet Prep No Trichomonas seen [place] No clue cells seen [place] No yeast seen [facility] LAB Micro Report FINAL [place] Status 10/12/2010 [facility] LAB Specimen Anatomical Collection Method Collection Time Receive d Time (Source) Location / / Volume Laterality 10/12/2010 8:48 AM 1 8:50 CDT AM CDT Esmer Roland MD LAB - MICRO GENERAL ORDERABL ES Performing Organization Address City/State/ZIP Code Phon e Number [facility] [place] [address] [facility] documented in this encounter Visit Diagnoses Diagnosis Vaginitis - Primary Vaginitis and vulvovaginitis, unspecifie d documented in this encounter Care Teams Carpet Inspector Relationship Specialty Start Date End Date Esmer Roland MD PCP - General Family Practice 09/21/10 01/29/17 documented as of this encounter
--- OUTSIDE RECORDS SUMMARY | 2022-04-11 21:47 | XMS_ITS | Encounter Summary ---
:1975 Author Organization [place] Address [address] [place] [address] Care Team Providers Name Role Phone Melvin Palacios MD Primary Care Provider Reason for Visit Reason Onset Date Comments Medication Request 10/23/2009 Vitamin D Encounter Details Date Type Department Care Team Description 10/23/2009 Telephone [facility] Melvin Palacios MD Medication Request Clinic [address] (Vitamin D) [address] [place] [address] [phone] Social History Tobacco Use Types Packs/Day Years [...] up with you. How does that sound? [facility] Dariana documented in this encounter Plan of Treatment Not on filedocumented as of this encounter Visit Diagnoses Diagnosis Vitamin D deficiency - Primary Unspecified vitamin D deficiency documented in this encounter Care Teams Technical Mgr Relationship Specialty Start Date End Date Melvin Palacios MD PCP - General 06/22/99 09/20/10 [address] [id number] documented as of this encounter
--- OUTSIDE RECORDS SUMMARY | 2022-04-11 21:47 | XMS_ITS | Encounter Summary ---
:1975 Author Organization [place] Address [facility] [place] [address] Care Team Providers Name Role Phone Esmer Roland MD Primary Care Provider [phone] Reason for Visit Reason Onset Date Comments Injury 12/13/2010 pinky toe rt foot Encounter Details Date Type Department Care Team Description 12/13/2010 Telephone [facility] Esmer Roland Injury (pinky toe rt Clinic Sara Byrd MD foot) [address] [facility], [address] [place] [address] [address] [place] [address] [place], [place] [phone] (Wo rk) [address] [phone] Social History Tobacco Use Types Packs/Day Years [...] foot documented in this encounter Care Teams City Recorder Relationship Specialty Start Date End Date Esmer Roland MD PCP - General Family Practice 09/21/10 01/29/17 documented as of this encounter
--- OUTSIDE RECORDS SUMMARY | 2022-04-11 21:47 | XMS_ITS | Encounter Summary ---
:1975 Author Organization [place] Address [address] [place] [address]. [place] [address] Care Team Providers Name Role Phone Melvin Palacios MD Primary Care Provider Encounter Details Date Type Department Care Team Description 07/05/2010 Historic Notes INTERFACED REPORT Brian Shukla MD [address] [facility] [address] [place] [address] (Wo rk) Social History Tobacco [...] GFR estimated 73 GFR estimated if 88 -[place]oven[place] Calcium Level* 8.5 AST 22 GGT 16 [...] on filedocumented in this encounter Care Teams Director Of Business Operations Relationship Specialty Start Date End Date Melvin Palacios MD PCP - General 06/22/99 09/20/10 [address] [id number] documented as of this encounter
--- OUTSIDE RECORDS SUMMARY | 2022-04-11 21:47 | XMS_ITS | Encounter Summary ---
:1975 Author Organization [place] Address [address] [place] [address] Care Team Providers Name Role Phone Melvin Palacios MD Primary Care Provider Reason for Visit Reason Onset Date Comments Patient/info Update 11/14/2009 Encounter Details Date Type Department Care Team Description 11/14/2009 Telephone [facility] Harris Jung MD Patient/info Update [address] [phone] (Wo rk) Social History Tobacco Use Types [...] on filedocumented in this encounter Care Teams School Bus Mechanic Relationship Specialty Start Date End Date Melvin Palacios MD PCP - General 06/22/99 09/20/10 [address] [id number] documented as of this encounter
--- OUTSIDE RECORDS SUMMARY | 2022-04-11 21:47 | XMS_ITS | Encounter Summary ---
:1975 Author Organization [place] Address [address] [place] [address] Care Team Providers Name Role Phone Melvin Palacios MD Primary Care Provider Reason for Visit Reason Comments URI Encounter Details Date Type Department Care Team Description 08/14/2010 Office Visit [facility] Esmer Roland A (Primary Dx); Clinic Sara Byrd MD Major depress dis, severe [place] [address] [facility], [address] [place] [address] [place], [place] [phone] (Wo rk) [address] [phone] Social History Tobacco Use Types Packs/Day Years [...] Comments Blood Pressure 120/62 08/14/2010 8:58 AM VELVET STEAMER Pulse 94 08/14/2010 8:58 AM VELVET STEAMER Temperature 37.2 ??C (98.9 ??F) 08/14/2010 8:58 AM VELVET STEAMER Respiratory Rate 16 08/14/2010 8:58 AM VELVET STEAMER Oxygen Saturation 99% 08/14/2010 8:58 AM VELVET STEAMER Inhaled Oxygen Concentration - - Weight 74.8 kg (165 lb) 08/14/2010 8:58 AM VELVET STEAMER Height 170.2 cm (5' 7) 08/14/2010 8:58 AM VELVET STEAMER Body Mass Index 25.84 08/14/2010 8:58 AM VELVET STEAMER documented in this encounter Progress Notes Esmer [...] these occur, they will seek care immediately. ET STEAMER documented in this encounter Plan of Treatment Not on filedocumented as of this encounter Procedures Procedure Name Priority Date/Time Associated Diagnosis Comme nts INFLUENZA A/B Routine 08/14/2010 10:07 AM Major depress dis, R esults for this ANTIGEN VELVET STEAMER severe procedure are in Influenza A the results section. documented in this encounter Results (ABNORMAL) Influenza A/B antigen (08/14/2010 10:07 AM VELVET STEAMER) [facility] Method Time Signature Influenza A/B Nasopharyngeal [place] Agn Specimen [facility] Influenza A Positive (A) NEG [facility] Influenza B Negative NEG [facility] Specimen Anatomical Collection Method Collection Time Receive d Time (Source) Location / / Volume Laterality 08/14/2010 10:07 08/14/2010 AM VELVET STEAMER 10:12 AM VELVET STEAMER Esmer Roland MD LAB - MICRO GENERAL ORDERABL ES Performing Organization Address City/State/ZIP Code Phon e Number [facility] [place] [address] [facility] documented in this encounter Visit Diagnoses Diagnosis Influenza A - Primary Influenza with other respiratory manifes tations Major depressive disorder, single episod e, severe, without mention of psychotic behavior documented in this encounter Care Teams Ambulance Officer Relationship Specialty Start Date End Date Melvin Palacios MD PCP - General 06/22/99 09/20/10 [address] [id number] documented as of this encounter
--- OUTSIDE RECORDS SUMMARY | 2022-04-11 21:47 | XMS_ITS | Encounter Summary ---
:1975 Author Organization [place] Address [address] [facility] [place] [address] Care Team Providers Name Role Phone Melvin [...] as of this encounter Progress Notes Interface, Technology Coach - 08/23/2010 10:44 PM CDT Safety Precautions Initiated (NOTE: MD Order Needed every 24 hours) - Date/Time Safety 21:15 Precautions Initiated: - financial planning consultant of Need Patient admitted with SI. for Safety Precautions: Signatures Moshe Gonzalez (SHAREE)[Signed 00:40] Authored: Safety Precautions Initiated (NOTE: MD Order Needed every 24 hours) Interface, Technology Coach - 08/23/2010 10:43 PM CDT Summary of [...] time. In addition, you spoke with your accountant bookkeeper at [facility] and will start a Divorce Care Group. [...] suicide Psychiatry Follow-Up - Psychiatrist/Primary Liliya Mckeon DYE HOUSE WHEEL OPERATOR Post Adoption Coordinator: - Psychiatrist Address: [facility] - Psychiatrist Number: - Psychiatrist 11:30 Appointment Date/Time: - Therapist: Thelma - Therapist Address: [facility] - Therapist Number: - Therapist Appointment 02:00 Date/Time: - Other Referrals: Divorce Care Group - Other Referrals [facility] Address: Provider Information - Discharged From: [facility] - Unit: [address] [place] [address] - Unit - Method: ambulatory - Transportation: [...] Avoid alcohol. Resources - Resources Crisis Intervention: 708.301.5673 or 194 860-8334 (TTY: 868.279.4854); call anytime for help. National [place] on Mental Illness (www.[place].serene.org):: 224.347.1007 or 265-145-5940. National Suicide Prevention Line (www.mentalhealthmn.org): 369-897-MMEP [8255] Mental Health Association of [place] (www.mentalhealth.org): 446.483.7666 or 639-285-6035. Signatures EMIGDIO LEE (RN)[Signed 11:57] Authored: Summary of Progress and Discharge Plan, Discharge Teaching Checklist NEEMA MARTE (Clinical Anatomy Professor)[Signed 16:35] Authored: Summary of Progress and Discharge Plan, Psychiatry Follow-Up, Provider Information, Resources Interface, Technology Coach - 08/23/2010 10:43 PM CDT Clinical Anatomy Professor Note - :: Pt admitted with suicidal ideation having overdosed on Dilaudid and Klonopin. Very depressed and overwhelmed with divorce of one year and worries about finances. Caring for two sons whom she shares joint custody with ex-. 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 Parents concerned because the depression and hopeless [...] Philip Plaque he gave her and their Fritch Candle from their wedding. Her ex told [...] graduate with one year of college for [employer] Driver. Parents help financially and also help her care for her children. This is patient's first inpatient admission. She has been encouraged to attend all unit programming and meet with her staff as needed. She sees Liliya DAVIDSON and will schedule therapist at [facility] in [place]. Flowsheets #1 and #4 completed and the Patient Profile has been updated. NEEMA Bledsoe (Clinical Anatomy Professor)[Signed 16:07] Authored: Clinical Anatomy Professor Note Interface, Technology Coach - 08/23/2010 10:41 PM CDT General Information [...] on filedocumented in this encounter Care Teams Chief Payroll Clerk Relationship Specialty Start Date End Date Melvin Palacios MD PCP - General 06/22/99 09/20/10 [address] [id number] documented as of this encounter
--- OUTSIDE RECORDS SUMMARY | 2022-04-11 21:47 | XMS_ITS | Encounter Summary ---
:1975 Author Organization [place] Address [address] [place] [address] Care Team Providers Name Role Phone Melvin Palacios MD Primary Care Provider Encounter Details Date Type Department Care Team Description 07/02/2010 Historic Notes INTERFACED REPORT James Bautista MD [address] [facility] [place] [address] (Wo rk) Social History Tobacco [...] on filedocumented in this encounter Care Teams Impregnation Operator Relationship Specialty Start Date End Date Melvin Palacios MD PCP - General 06/22/99 09/20/10 [address] [id number] documented as of this encounter
--- OUTSIDE RECORDS SUMMARY | 2022-04-11 21:47 | XMS_ITS | Encounter Summary ---
:1975 Author Organization [place] Address Critical access hospital0 [facility] [place] [address] Care Team Providers Name Role Phone Melvin Palacios MD Primary Care Provider Esmer Roland MD Primary Care Provider [phone] Encounter Details Date Type Department Care Team Description 07/01/2010 Historic Results [facility] Pancho Rodriguez Emergency Department MD L[place] [address] [facility] [address] [place] [address] [place] [address] (Wo rk) Social History Tobacco [...] 07/01/2010 6:30 PM Results f or this MILL SUPERVISOR procedure are i n the results section . documented in this encounter Results EKG 12 LEAD (07/01/2010 6:30 PM MILL SUPERVISOR) Component Value Ref Range Test Analysis Performed Pathologis t Method Time At Signature Ventricular Rate 77 BPM RADIOLOGY RESULTS Atrial Rate 77 BPM RADIOLOGY RESULTS MA Interval 112 ms RADIOLOGY RESULTS QRS Duration 88 ms RADIOLOGY RESULTS QT 366 ms RADIOLOGY RESULTS QTc 414 ms RADIOLOGY RESULTS P [place] 16 degrees RADIOLOGY RESULTS R AXIS 66 degrees RADIOLOGY RESULTS T [place] 24 degrees RADIOLOGY RESULTS Interpretation Sinus rhythm RADIOLOGY ECG Normal ECG RESULTS Unconfirmed report - interpretation of this ECG is compute r generated - see medical record for final interpretation Specimen Anatomical Collection Method Collection Time Receive d Time (Source) Location / / Volume Laterality 07/01/2010 6:30 PM 1 6:23 MILL SUPERVISOR PM MILL SUPERVISOR Ángela Rodriguez MD ECG ORDERABLES Performing Organization Address City/State/[facility] Code Phon e Number RADIOLOGY RESULTS documented in this encounter Visit Diagnoses Not on filedocumented in this encounter Care Teams Configuration Manager Relationship Specialty Start Date End Date Melvin Palacios MD PCP - General 06/22/99 09/20/10 [address] [place] [address] Esmer Roland MD PCP - General Family Practice 09/21/10 01/29/17 documented as of this encounter
--- OUTSIDE RECORDS SUMMARY | 2022-04-11 21:47 | XMS_ITS | Encounter Summary ---
:1975 Author Organization [place] Address [address] [place] [address]. [place] [address] Care Team Providers Name Role Phone Melvin Palacios MD Primary Care Provider Encounter Details Date Type Department Care Team Description 07/06/2010 Historic Notes INTERFACED REPORT James Bautista MD [address] [place] [address] (Wo rk) Social History Tobacco [...] on filedocumented in this encounter Care Teams Timber Grader Relationship Specialty Start Date End Date Melvin Palacios MD PCP - General 06/22/99 09/20/10 [address] [id number] documented as of this encounter
--- OUTSIDE RECORDS SUMMARY | 2022-04-11 21:47 | XMS_ITS | Encounter Summary ---
:1975 Author Organization [place] Address [address] [place] [address]. [place] [address] Care Team Providers Name Role Phone Melvin Palacios MD Primary Care Provider Reason for Visit Reason Comments Urgent Care UTI since fri Encounter Details Date Type Department Care Team Description 11/11/2009 Office Visit [facility] Whit Vasquez MD Dysuria (Primary Dx); Care 2019 E UTI (Urinary Tract Infection ) [address] [address] [place], [place] [phone] [address] Social History Tobacco Use Types Packs/Day [...] ONE TABLET DAILY ??? VITAMIN D (ERGOCALCIFEROL) [address] [address] CAP[address] 1 CAPSULE WEEKLY for [...] Results URINE CULTURE (11/11/2009 2:21 PM CDT) [facility] gist Method Time Signature Specimen Midstream Urine [facility] Description [facility] Culture Micro 10 to 50,000 [facility] colonies/mL [facility] coli Micro Report FINAL [facility] Status 11/14/2009 [facility] Specimen Anatomical Collection Method Collection [...] Fran[place] Vasquez MD LABORATORY Performing Organization Address City/[facility]/ZIP Code Phon e Number [facility] [address] [facility] [place] [address] [facility] (ABNORMAL) MICRO EXAM-URINE (11/11/2009 2:21 PM CDT) [facility] Method Time Signature WBC Urine >100 (A) 0 - 2 [place] /[facility] RBC Urine 10-25 (A) 0 - 2 [place] [facility] Squamous Few FEW /LPF [place] Epithelial /LPF [facility]rine LAB Renal Tub Epi Few (A) NEG /HPF [facility] Mucous Urine Present (A) NEG /LPF [facility] Specimen Anatomical Collection Method Collection Time Receive d Time (Source) Location / / Volume Laterality 11/11/2009 2:21 PM 0 2:27 CDT PM CDT [facility] Vasquez MD LABORATORY Performing Organization Address City/[facility]/ZIP Code Phon e Number [facility] [address] [facility] [place] [address] [facility] (ABNORMAL) UA MICRO IF POSITIVE (11/11/2009 2:21 PM CDT) [facility] Method Time Signature Color Urine Yellow [facility] Appearance Urine Cloudy [facility] Glucose Urine Negative NEG mg/dL [facility] Bilirubin Urine Negative NEG [facility] Ketones Urine Trace (A) NEG mg/dL [facility] Specific [place] >1.030 1.003 - [place] Urine 1.035 [facility] Blood Urine Moderate (A) NEG [facility] pH Urine 5.5 5.0 - 7.0 [place] pH [facility] Protein Albumin 100 (A) NEG mg/dL [place] Urine [facility] Urobilinogen 1.0 0.2 - 1.0 [place] Urine EU/dL [facility] Nitrite Urine Negative NEG [facility] Leukocyte Moderate (A) NEG [place] Esterase Urine [facility] Source Midstream [place] Urine [facility] Specimen Anatomical Collection Method Collection Time Receive d Time (Source) Location / / Volume Laterality 11/11/2009 2:21 PM 11/11/201 0 2:27 CDT PM CDT [place] Vasquez MD LABORATORY Performing Organization Address City/State/ZIP Code Phon e Number [facility] [address] [place] [address] [place] [address] [facility] documented in this encounter Visit Diagnoses Diagnosis Dysuria - Primary UTI (urinary tract infection) Urinary tract infection, site not specif ied documented in this encounter Care Teams Sample Paster Relationship Specialty Start Date End Date Melvin Palacios MD PCP - General 06/22/99 09/20/10 [address] [id number] documented as of this encounter
--- OUTSIDE RECORDS SUMMARY | 2022-04-11 21:47 | XMS_ITS | Encounter Summary ---
:1975 Author Organization [place] Address [address] [facility] [place] [address] Care Team Providers Name Role Phone Melvin [...] as of this encounter Progress Notes Interface, Tubing Drier - 08/23/2010 10:32 PM CDT Clinical Notched Blade Loader Note - :: Met with patient to dicuss her treatment plan and outpatient supports. She spoke with the fruit picker of her advent and will now join a divorce care group to help her move on after her divorce. She and the boys will be living with her parents until she feels more stable. She is not suicidal today and seems to be looking forward to the advent divorce group. She found out that a [employer] employee donated some PTO time to her and she will apply for short-term disability. Pt would like to discharge on evening so she will discuss this with Dr. Rose. Pts discharge paperwork is completed. NEEMA Bledsoe (Clinical Notched Blade Loader)[Signed 17:11] Authored: Clinical Notched Blade Loader Note documented in this encounter Plan of Treatment Not on filedocumented as of this encounter Visit Diagnoses Not on filedocumented in this encounter Care Teams Marketing Operations Assistant Relationship Specialty Start Date End Date Melvin Palacios MD PCP - General 06/22/99 09/20/10 [address] [id number] documented as of this encounter
--- OUTSIDE RECORDS SUMMARY | 2022-04-11 21:47 | XMS_ITS | Encounter Summary ---
:1975 Author Organization [place] Address [address] [place] [address] Care Team Providers Name Role Phone Melvin [...] as of this encounter Progress Notes Interface, Brake Coupler [address] Freight - 08/23/2010 10:44 PM CDT General Information - How to be Addressed Dariana - Eye Color brown - Hair Color brown - Cultural/Ethnic Background - Source of Information patient; family - Arrived From emergency department - Clothing Search completed, Moshe Coelho RN - Second Staff (name) Ernestine Marina RN - route salesperson #1: Connie Earl - Relationship to Mother patient #1: - Phone 1: H. [phone] - Phone 2: C> [phone] - Patient's spoken language; Jordanian or Bilingual communication style Advance Directive - [...] problems this hospitalization? - Specialty Liliya George [facility] at [facility] Physicians/Other Providers - Do you have [place] Based restrictions for any of the following? [...] none Considerations - Developmental none Considerations - Mormonism none Considerations Risk Assessment - Have you [...] yes (describe), My kids and going to [place] and your life that is I enjoy [...] the past 30 days? - Has your power screwdriver operator's never revoked license been revoked because of [...] Legal History, Mutuality/Individual Preferences NEEMA MARTE (Clinical Edge Bonder)[Signed 11:09] Authored: General Information, Health and Illness documented in this encounter Plan of Treatment Not on filedocumented as of this encounter Visit Diagnoses Not on filedocumented in this encounter Care Teams Currency Machine Operator Relationship Specialty Start Date End Date Melvin Palacios MD PCP - General 06/22/99 09/20/10 [address] [id number] documented as of this encounter
--- OUTSIDE RECORDS SUMMARY | 2022-04-11 21:47 | XMS_ITS | Encounter Summary ---
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 Encounter Details Date Type Department Care Team Description 11/09/2010 Office Visit [facility] Cayetano Jung, Routine gynecological examination (Primary Dx); [facility] Abnormal uterine bleeding; [address] NOS [address] Jose Chacon [address] [facility] 100 131 160 [place] [address] [phone] Social History Tobacco Use Types Packs/Day Years [...] Body Mass Index 26.34 08/14/2010 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 She is doing better She was hospitalized at [facility] in 06/19 for suicide attempt She had [...] gynecological examination (primary encounter diagnosis) Comment: nl emergency department director exam Plan: PAP imaged thin layer screen, [...] 09, 2010 3:45 PM Patient presents with: Senior Financial Reporting Analyst Exam Initial BP 120/60 Wt 168 lb [...] UA with microscopic (11/09/2010 4:41 PM CDT) [facility] gist Method Time Signature Color Urine Yellow [facility] Appearance Urine Clear [facility] Glucose Urine Negative NEG mg/dL [facility] Bilirubin Urine Negative NEG [facility] Ketones Urine 15 (A) NEG mg/dL [facility] Specific [place] >1.030 1.003 - [place] Urine 1.035 [facility] pH Urine 5.5 5.0 - 7.0 [place] pH [facility] Protein Albumin Negative NEG mg/dL [facility] Urobilinogen 1.0 0.2 - 1.0 [place] Urine EU/dL [facility] Nitrite Urine Negative NEG [facility] Blood Urine Negative NEG [facility] Leukocyte Negative NEG [place] Esterase Urine [facility] Source Midstream [facility] WBC Urine O - 2 0 - 2 [place] /HPF [facility] RBC Urine O - 2 0 - 2 [place] /HPF [facility] Squamous Few FEW /LPF [place] Epithelial /LPF [facility] Urine CLINIC LAB Bacteria Urine Few (A) NEG /HPF [facility] Mucous Urine Present (A) NEG /LPF [facility] Specimen Anatomical Collection Method Collection Time Receive d Time (Source) Location / / Volume Laterality Urine specimen 11/09/2010 4:41 PM 011 4:46 (specimen) CDT PM CDT Cayetano Jung MD LAB - URINE ORDERABLES Performing Organization Address City/State/ZIP Code Phon e Number [facility] [address] [place], [place] [address] [address] [facility] PAP imaged thin layer screen (11/09/2010 4:41 PM CDT) Component Value Ref Test Analysis Performed At [facility] Range Method Time Signature PAP NIL COPATH Copath Report COPATH Patient Name: DARIANA VALDEZ MR#: [id number] Specimen #: [id number] Collected: 11/09/2010 Received: 11/13/2010 Reported: 11/14/2010 13:19 [...] HERMES Galo (ASCP) Processed and screened at [facility] CLINICAL HISTORY: LMP: 10/21/2010 Previous normal pap Date of Last Pap: 11/07/2008, [place]apan[place]olaou Test Limitations: ??Cervical cytology is a scre ening test with limited sensitivity; regular screening is critical for cancer prevention; Pap tests are primarily effective for the diagnosis/prevention of squamous cell carcinoma, not adenoca rcinomas or other cancers. TESTING LAB LOCATION: [address] ??[address] COLLECTION SITE: Client: ??[facility] [place]: [place] ([place]) Specimen (Source) Anatomical Collection Method Collection Time Re ceived Time Location / / Volume Laterality Cytologic 11/09/2010 4:41 11/13/2010 material PM CDT 11:03 AM CDT (specimen) Cayetano Jung MD LAB - OPTIME CLINICAL SPECIM EN Performing Organization Address City/State/ZIP Code Phon e Number [place] URINE CULTURE (11/09/2010 4:40 PM CDT) [facility] Method Time Signature Specimen Midstream [facility] Description Urine [facility] Culture Micro 10 to 50,000 colonies/mL Mul tiple species present, probable perineal [facility] contamination. [facility] Micro Report FINAL [facility] Status 11/12/2010 [facility] Specimen Anatomical Collection Method Collection Time Receive d Time (Source) Location / / Volume Laterality 11/09/2010 4:40 PM 1 4:45 CDT PM CDT Cayetano Jung MD LAB - MICRO GENERAL ORDERABL ES Performing Organization Address City/State/ZIP Code Phon e Number [facility] [address] [place] [address] [facility] documented in this encounter Visit Diagnoses Diagnosis Routine gynecological examination - Prim harpal Abnormal uterine bleeding Unspecified disorder of menstruation and other abnormal bleeding from female genital tract ANXIETY STATE NOS Anxiety state, unspecified documented in this encounter Care Teams Parts Driver Relationship Specialty Start Date End Date Esmer Roland MD PCP - General Family Practice 09/21/10 01/29/17 documented as of this encounter
--- OUTSIDE RECORDS SUMMARY | 2022-04-11 21:47 | XMS_ITS | Encounter Summary ---
:1975 Author Organization [place] Address [address] [place] [address] Care Team Providers Name Role Phone Esmer Roland MD Primary Care Provider Encounter Details Date Type Department Care Team Description 12/30/2010 [facility] [address] [...] Signature Troponin I 0.00 0.00 - 0.10 [facility] ug/[facility] LAB Specimen Anatomical Collection Method Collection Time Receive d Time (Source) Location / / Volume Laterality 12/30/2010 3:28 PM 1 3:55 CDT PM CDT Esmer Roland MD LAB - ENTER/EDIT POCT Performing Organization Address City/[place] [facility] Phon e [facility] [address] [place], [place] [address] [facility] LAB Troponin I (12/30/2010 1:25 PM CDT) [facility] Method Time Signature Troponin I ES <0.012 0.000 - [place] Reviewed, acceptable 0.034 [facility] LAB Specimen Anatomical Collection Method Collection Time Receive d Time (Source) Location / / Volume Laterality 12/30/2010 1:25 PM 1 3:11 CDT PM CDT Esmer Roland MD LAB - BLOOD ORDERABLES Performing Organization Address City/[facility] Phon e [facility] [address], [place] [address] [facility] LAB (ABNORMAL) Basic metabolic panel (12/30/2010 1:25 PM CDT) athologist Signature Sodium 140 133 - 144 [place] mmol/L [facility] LAB Potassium 4.0 3.4 - 5.3 [place] mmol/L [facility] LAB Chloride 107 94 - 109 [place] mmol/L [facility] LAB Carbon Dioxide 24 20 - 32 [place] mmol/L [facility] LAB Anion Gap 8 6 - 17 [place] mmol/L [facility] LAB Glucose 107 (H) 60 - 99 [place] mg/dL [facility] LAB Urea Nitrogen 9 5 - 24 [place] mg/dL [facility] LAB Creatinine 0.77 0.52 - [place] 1.04 mg/dL [facility] LAB GFR Estimate 86 >60 [place] mL/min/1.[address] LAB GFR Estimate If >90 >60 [place] Black mL/min/1.[address] LAB Calcium 8.4 (L) 8.5 - 10.4 [place] mg/dL [facility] LAB Specimen Anatomical Collection Method Collection Time Receive d Time (Source) Location / / Volume Laterality 12/30/2010 1:25 PM 1 3:11 CDT PM CDT Esmer Roland MD LAB - BLOOD ORDERABLES Performing Organization Address City/[facility]/ZIP [place] [address], [place] [address] [facility] LAB INR (12/30/2010 1:25 PM CDT) P athologist Signature INR 0.91 0.86 - 1.14 [facility] LAB Specimen Anatomical Collection Method Collection Time Receive d Time (Source) Location / / Volume Laterality 12/30/2010 1:25 PM 1 2:07 CDT PM CDT Martin Blair MD LAB - BLOOD ORDERABLES Performing Organization Address City/[facility]/ZIP [place] [address], [place] [address] [facility] LAB (ABNORMAL) CBC with platelets differential (12/30/2010 1:25 PM CDT) Patholo gist Method Time Signature WBC 5.1 4.0 - [place] 11.0 [facility] 10e9/L [facility] LAB RBC Count 4.29 3.8 - 5.2 [place] 10e12/L [facility] LAB Hemoglobin 12.9 11.7 - [place] 15.7 g/dL [facility] LAB Hematocrit 38.2 35.0 - [place] 47.0 % [facility] MCV 89 78 - 100 [place] fl [facility] MCH 30.1 26.5 - [facility] 33.0 pg [facility] MCHC 33.8 31.5 - [place] 36.5 g/dL [facility] RDW 12.8 10.0 - [facility] 15.0 % [facility] Platelet Count 230 150 - 450 [place] 10e9/L [facility] LAB Diff Method Automated [facility] LAB % Neutrophils 56.7 40 - 75 % [facility] LAB % Lymphocytes 23.9 20 - 48 % [facility] % Monocytes 14.9 (H) 0 - 12 % [facility] % Eosinophils 3.7 0 - 6 % [facility] % Basophils 0.8 0 - 2 % [facility] Absolute 2.9 1.6 - 8.3 [place] Neutrophil 10e9/L [facility] Absolute 1.2 0.8 - 5.3 [place] Lymphocytes 10e9/L [facility] Absolute 0.8 0.0 - 1.3 [place] Monocytes 10e9/L [facility] Absolute 0.2 0.0 - 0.7 [place] Eosinophils 10e9/L [facility] Absolute 0.0 0.0 - 0.2 [place] Basophils [address] [place] [address] LAB Specimen Anatomical Collection Method Collection Time Receive d Time (Source) Location / / Volume Laterality 12/30/2010 1:25 PM 1 2:07 CDT PM CDT Martin Blair MD LAB - BLOOD ORDERABLES Performing Organization Address City/[facility]/ZIP [facility] Phon e Vicki Rodgers [place] [address], [place] [address] [facility] LAB D dimer quantitative (12/30/2010 1:25 PM CDT) P athologist Signature D Dimer 0.4 0.0 - 0.50 [facility] ug/ml [facility] LAB Specimen Anatomical Collection Method Collection Time Receive d Time (Source) Location / / Volume Laterality 12/30/2010 1:25 PM 1 2:07 CDT PM CDT Martin Blair MD LAB - BLOOD ORDERABLES Performing Organization Address City/[place] [facility]/ZIP [facility] Phon e Number [place] [address], [place] [address] [facility] LAB documented in this encounter Visit Diagnoses Not on filedocumented in this encounter Care Teams Distribution Clerk Relationship Specialty Start Date End Date Esmer Roland MD PCP - General Family Practice 09/21/10 01/29/17 documented as of this encounter
--- OUTSIDE RECORDS SUMMARY | 2022-04-11 21:47 | XMS_ITS | Encounter Summary ---
:1975 Author Organization [place] Address [address] [place] [address] Care Team Providers Name Role Phone Melvin Palacios MD Primary Care Provider Reason for Visit Reason Onset Date Comments Refill Request 06/05/2010 ZOLPIDEM 10MG Encounter Details Date Type Department Care Team Description 06/05/2010 Refill [facility] Lissette Hobbs, Refill Request Clinic Carmen Brewer MD (ZOLPIDEM 10MG) [address] [place], [place] [address] [facility] [address] [place] [address] [place] [address] (Wo rk) Social History Tobacco Use Types [...] AM CST Walked over to RISHI Bruce OMICS CONSULTANT Telephone Encounter - Stacey Torres - 06/05/2010 2:07 PM CST Last OV: 08/16/09 with CL Reason for visit: adjustment disorder Date last filled: see below Unable to fill PSO Stacey Torres RN OMICS CONSULTANT Telephone Encounter - Kristine Bermudez - 06/05/2010 1:47 PM CST Last filled 10/22/09 Qty 30 Kristine FV CR RX OMICS CONSULTANT documented in this encounter Plan of Treatment Not on filedocumented as of this encounter Visit Diagnoses Diagnosis Adjustment disorder with anxiety documented in this encounter Care Teams Trial Consultant Relationship Specialty Start Date End Date Melvin Palacios MD PCP - General 06/22/99 09/20/10 [address] [address] [id number] documented as of this encounter
[2022-04-11 21:48] LABS: C Reactive Protein* 2.3 mg/dL (0.5-1.0)
--- OUTSIDE RECORDS SUMMARY | 2022-04-11 21:48 | XMS_ITS | Encounter Summary ---
:1975 Author Organization [place] Address [address] [place] [address] Care Team Providers Name Role Phone Melvin Palacios MD Primary Care Provider Reason for Visit Reason Onset Date Comments Refill Request 08/04/2009 ZOLPIDEM Encounter Details Date Type Department Care Team Description 08/04/2009 Refill [facility] Melvin Palacios MD Refill Request Clinic [place] [address] (ZOLPIDEM) [address] [place] [address] [phone] Social History Tobacco Use Types Packs/Day Years [...] CST Walked to pharmacy. Stacey Torres RN R HEAD PIERCER Telephone Encounter - Desire Bishop - 08/04/2009 12:18 PM CST Date of last OV: 07/07/09 Reason for visit: adjustment disorder Date last filled: per epic 07/07/09 #30 Labs pertaining to med: none, Unable to approve per standing orders, routed to provider. Desire Bishop RN R HEAD PIERCER Telephone Encounter - Ban Monge - 08/04/2009 9:28 AM CST LAST FILL DATE: 07/07/09 LAST QTY: 30 TIERA HERNANDEZ [facility] R HEAD PIERCER documented in this encounter Plan of Treatment Not on filedocumented as of this encounter Visit Diagnoses Diagnosis Adjustment disorder with anxiety documented in this encounter Care Teams Compugraph Operator Relationship Specialty Start Date End Date Melvin Palacios MD PCP - General 06/22/99 09/20/10 [address] [address] [id number] documented as of this encounter
--- OUTSIDE RECORDS SUMMARY | 2022-04-11 21:48 | XMS_ITS | Encounter Summary ---
:1975 Author Organization [place] Address [address] [place] [address] Care Team Providers Name Role Phone Melvin Palacios MD Primary Care Provider Reason for Visit Reason Comments Forms return to work papers Encounter Details Date Type Department Care Team Description 04/20/2009 Office Visit [facility] Melvin Palacios MD Adjustment Disorder Clinic [place] [address] with Depressed Mood [address] [facility] (Primary Dx) [place], [place] [address] [id number] Social History Tobacco Use Types Packs/Day Years [...] Comments Blood Pressure 114/70 04/20/2009 3:16 PM BENDING ROLL HAND Pulse 66 04/20/2009 3:16 PM BENDING ROLL HAND Temperature - - Respiratory Rate - - Oxygen Saturation - - Inhaled Oxygen Concentration - - Weight 74.4 kg (164 lb) 04/20/2009 3:16 PM BENDING ROLL HAND Height - - Body Mass Index 26.47 [...] maintains her weekly visits with her therapist. ING ROLL HAND documented in this encounter Nursing Notes 04/20/2009 3:00 PM CST >> DIVINE COREAS [facility] Apr 20, 2009 3:18 PM Patient presents [...] Primary documented in this encounter Care Teams Belt Puncher Relationship Specialty Start Date End Date Melvin Palacios MD PCP - General 06/22/99 09/20/10 [address] [phone] documented as of this encounter
--- OUTSIDE RECORDS SUMMARY | 2022-04-11 21:48 | XMS_ITS | Encounter Summary ---
:1975 Author Organization [place] Address [address] [place] [address] Care Team Providers Name Role Phone Melvin Palacios MD Primary Care Provider Reason for Visit Reason Comments Medication Request wondering if she can have an increase in med celexa and discuss migraines Encounter Details Date Type Department Care Team Description 05/17/2009 Office Visit [facility] Melvin Palacios MD Adjustment Disorder Clinic [place] [address] with Mixed Anxiety and [address] [facility] Depressed Mood [place], [place] (Primary Dx) [address] [phone] Social History Tobacco Use Types Packs/Day Years [...] Comments Blood Pressure 114/80 05/17/2009 3:08 PM CAT OPERATOR Pulse - - Temperature - - Respiratory Rate - - Oxygen Saturation - - Inhaled Oxygen Concentration - - Weight 72.6 kg (160 lb) 05/17/2009 3:08 PM CAT OPERATOR Height 167.6 cm (5' 6) 05/17/2009 3:08 PM CAT OPERATOR Body Mass Index 25.82 05/17/2009 3:08 PM CAT OPERATOR documented in this encounter Progress Notes [...] She is to contiue with her psychotherapy OPERATOR documented in this encounter Nursing Notes [...] Primary documented in this encounter Care Teams Candy Mixer Relationship Specialty Start Date End Date Melvin Palacios MD PCP - General 06/22/99 09/20/10 [address] [phone] documented as of this encounter
--- OUTSIDE RECORDS SUMMARY | 2022-04-11 21:48 | XMS_ITS | Encounter Summary ---
:1975 Author Organization [facility] Address [address] [place] [address] Care Team Providers Name Role Phone Melvin Palacios MD Primary Care Provider Reason for Visit Reason Comments Forms FMLA Forms Encounter Details Date Type Department Care Team Description 03/17/2009 Office Visit [facility] Melvin Palacios MD DEPRESSIVE DISORDER NEC; Clinic [place] [address] Adjustment Disorder with Anx iety [address] [place], [place] [address] [phone] Social History Tobacco Use Types Packs/Day Years [...] work.She has been wisely advised by her Contact Center Associate to consider FMLA before any adverse events [...] anxiety documented in this encounter Care Teams Credit And Collection Manager Relationship Specialty Start Date End Date Melvin Palacios MD PCP - General 06/22/99 09/20/10 [address] [phone] documented as of this encounter
--- OUTSIDE RECORDS SUMMARY | 2022-04-11 21:48 | XMS_ITS | Encounter Summary ---
:1975 Author Organization [facility] Address [address] [place] [address]. [place] [address] Care Team Providers Name Role Phone Melvin Palacios MD Primary Care Provider Reason for Visit Reason Onset Date Comments Refill Request 03/14/2009 Encounter Details Date Type Department Care Team Description 03/14/2009 [place] [facility] [place] efadrian Request [place] ZENON Maddox [address] [place] [address] N [phone] Social History Tobacco Use Types Packs/Day Years [...] OR TABS [Tobi Barber PA-C] Preferred pharmacy: [facility] Comment: Last ov 02/27/09 [...] unspecified documented in this encounter Care Teams Dining Car Waiter/Waitress Relationship Specialty Start Date End Date Melvin Palacios MD PCP - General 06/22/99 09/20/10 [address] [phone] documented as of this encounter
--- OUTSIDE RECORDS SUMMARY | 2022-04-11 21:48 | XMS_ITS | Encounter Summary ---
:1975 Author Organization [facility] Address [address] [place] [address] Care Team Providers Name Role Phone Melvin Palacios MD Primary Care Provider Reason for Visit Reason Onset Date Comments Refill Request 05/01/2009 SUSAN Encounter Details Date Type Department Care Team Description 05/01/2009 Refill [facility] Melvin Palacios MD Refill Request (AMBIEN) Clinic [address] [place] [address] [phone] Social History Tobacco Use Types Packs/Day Years [...] for Esther, encounter closed Ernestine Salinas RN ATING ROOM NURSE Telephone Encounter - Deidre Alas - 05/01/2009 2:09 PM CST LAST FILL DATE: 03/22/09 QTY: 30 Camilo Hammonds [facility] ATING ROOM NURSE documented in this encounter Plan of Treatment Not on filedocumented as of this encounter Visit Diagnoses Diagnosis Adjustment disorder with anxiety documented in this encounter Care Teams Cullet Crusher Relationship Specialty Start Date End Date Melvin Palacios MD PCP - General 06/22/99 09/20/10 [address] [phone] documented as of this encounter
--- OUTSIDE RECORDS SUMMARY | 2022-04-11 21:48 | XMS_ITS | Encounter Summary ---
:1975 Author Organization [place] Address [address] [place] [address] Care Team Providers Name Role Phone Melvin Palacios MD Primary Care Provider Reason for Visit Reason Comments Forms return to work RECHECK meds Encounter Details Date Type Department Care Team Description 04/12/2009 Office Visit [facility] Melvin Palacios MD Adjustment Disorder Clinic [place] [address] with Depressed Mood [address] [facility] (Primary Dx) [place] [address] [phone] Social History Tobacco Use Types Packs/Day Years [...] Comments Blood Pressure 95/67 04/12/2009 9:01 AM ASSEMBLY INSPECTOR Pulse 89 04/12/2009 9:01 AM ASSEMBLY INSPECTOR Temperature - - Respiratory Rate - - Oxygen Saturation - - Inhaled Oxygen Concentration - - Weight 74.4 kg (164 lb) 04/12/2009 9:01 AM ASSEMBLY INSPECTOR Height - - Body Mass Index 26.47 [...] Continue curent med regimen. Her FML:A ends [id number] and I would support her return no earlier than tihat date MBLY INSPECTOR documented in this encounter Nursing Notes 04/12/2009 [...] Primary documented in this encounter Care Teams Interactive Media Specialist Relationship Specialty Start Date End Date Melvin Palacios MD PCP - General 06/22/99 09/20/10 [address] [phone] documented as of this encounter
--- OUTSIDE RECORDS SUMMARY | 2022-04-11 21:48 | XMS_ITS | Encounter Summary ---
:1975 Author Organization [facility] Address [address] [place] [address] Care Team Providers Name Role Phone Melvin Palacios MD Primary Care Provider Encounter Details Date Type Department Care Team Description 09/20/2009 Historic Results [facility] Royce Hauser [facility] Shane Garcia MD [address] [address] [address] [phone] [place], [place] [address] (Wo rk) Social History [...] Results Wet prep (09/20/2009 3:39 PM CDT) [facility] Stuffle Method Time Signature Specimen Vagina MISYS Description [...] MICRO GENERA L ORDERABLES Performing Organization Address City/[facility]/ZIP Code Phon e Number MISYS Chlamydia trachomatis PCR (09/20/2009 3:39 PM CDT) Component Value Ref Test Analysis Performed At [facility] Stuffle Range Method Time Signature Specimen Cervical MISYS Description Chlamydia Negative for C. MISYS Trachomatis PCR trachomatis rRNA by press bucker mediated amplification. Comment: A negative result by press bucker medi ated amplification does not preclude the [...] Neisseria gonorrhoeae PCR (09/20/2009 3:39 PM CDT) [facility] Stuffle Method Time Signature Specimen Cervical MISYS Descrip N Gonorrhea Negative for N. MISYS PCR gonorrhoeae rRNA by press bucker mediated amplification. Comment: A negative result by press bucker medi ated amplification does not preclude the [...] on filedocumented in this encounter Care Teams Ceramic Sprayer Relationship Specialty Start Date End Date Mlevin Palacios MD PCP - General 06/22/99 09/20/10 [address] [phone] documented as of this encounter
--- OUTSIDE RECORDS SUMMARY | 2022-04-11 21:48 | XMS_ITS | Encounter Summary ---
:1975 Author Organization [place] Address [address] [place] [address] Care Team Providers Name Role Phone Melvin Palacios MD Primary Care Provider Reason for Visit Reason Onset Date Comments Patient/info Update 04/03/2009 with counseling Ctr Encounter Details Date Type Department Care Team Description 04/03/2009 Telephone [facility] Patient/ info Update Clinic [place] ZENON Maddox (with counseling Ctr) [address] [place] [phone] Social History Tobacco Use Types Packs/Day Years [...] she is with Pt's too) Call at [phone] Routed to CL who saw her for the last 3 OV's. Rashida Bishop RN Telephone Encounter - Rashida Bishop - 04/03/2009 12:17 PM CDT Staff Message copied by RASHIDA BISHOP on FriApr 03, 2009 12:17 PM ------ Message from: ASHLEIGH FORBES Created: FriApr 03, 2009 11:16 AM Regarding: AW-FV Ina First and Last name of caller: Polly Leija Relationship to patient: [employer] -Edinaceason for call: wants to speak with provider Is it in regards to a medication: would not say Med Name: n/a Pharmacy name and location: n/a Provider they see: Tobi Phone number they can be reached at: [phone] Ok to leave a message: please call Polly Guardado documented in this encounter Plan of Treatment Not on filedocumented as of this encounter Visit Diagnoses Not on filedocumented in this encounter Care Teams High School Biology Teacher Relationship Specialty Start Date End Date Melvin Palacios MD PCP - General 06/22/99 09/20/10 [address] [phone] documented as of this encounter
--- OUTSIDE RECORDS SUMMARY | 2022-04-11 21:48 | XMS_ITS | Encounter Summary ---
:1975 Author Organization [place] Address [address] [facility] [address] Care Team Providers Name Role Phone Melvin Palacios MD Primary Care Provider Encounter Details Date Type Department Care Team Description 09/20/2009 Emergency room [facility] Harris Mcmahan MD Hospital Results [facility] [address] [place], [place] [address] (Wo rk) Social History [...] her to the ED, Dr. Hauser [facility]. She states that she does not [...] abdomen, just lateral to the umbilicus. SKIN: [place], warm, dry. EYES: Pupils are equal, round [...] SANDRO#[id number] Name: DARIANA VALDEZ MRN: [id number] Account: [id number] : 1975 Visit Date: 09/20/2009 Document: [id number] documented in this encounter Plan of Treatment Not on filedocumented as of this encounter Visit Diagnoses Not on filedocumented in this encounter Care Teams Apparel Manager Relationship Specialty Start Date End Date Melvin Palacios MD PCP - General 06/22/99 09/20/10 [address] [phone] documented as of this encounter
--- OUTSIDE RECORDS SUMMARY | 2022-04-11 21:48 | XMS_ITS | Encounter Summary ---
:1975 Author Organization [place] Address [address] [place] [address] Care Team Providers Name Role Phone Melvin Palacios MD Primary Care Provider Encounter Details Date Type Department Care Team Description 04/26/2009 Medical Correspondence [facility] Melvin Palacios , Report of Clinic Carmen BANERJEE [address] [place] [address] [phone] Social History Tobacco Use Types Packs/Day Years [...] on filedocumented in this encounter Care Teams Deskidding Machine Operator Relationship Specialty Start Date End Date Melvin Palacios MD PCP - General 06/22/99 09/20/[address] [place], [place] [address] [address] documented as of this encounter
--- OUTSIDE RECORDS SUMMARY | 2022-04-11 21:48 | XMS_ITS | Encounter Summary ---
:1975 Author Organization [place] Address [address] [place] [address] Care Team Providers Name Role Phone Melvin Palacios MD Primary Care Provider Reason for Visit Reason Onset Date Comments Refill Request 06/17/2009 CITALOPRAM 40MG Encounter Details Date Type Department Care Team Description 06/17/2009 Refill [facility] Melvin Palacios MD Refill Request Clinic [place] [address] [place] [address] (CITALOPRAM 40MG) [id number] [place] [address] [place] [address] [phone] Social History Tobacco Use Types Packs/Day Years [...] Unable to fill PSO Stacey Torres RN CAL SCRIBE Telephone Encounter - Kristine Bermudez - 06/17/2009 10:26 AM CST Last filled 05/17/09 Qty 30 Kristine FV CR RX CAL SCRIBE documented in this encounter Plan of Treatment Not on filedocumented as of this encounter Visit Diagnoses Diagnosis DEPRESSIVE DISORDER NEC Depressive disorder, not elsewhere class ified ANXIETY STATE NOS Anxiety state, unspecified documented in this encounter Care Teams Merchandising Professor Relationship Specialty Start Date End Date Melvin Palacios MD PCP - General 06/22/99 09/20/10 [address] [phone] documented as of this encounter
--- OUTSIDE RECORDS SUMMARY | 2022-04-11 21:48 | XMS_ITS | Encounter Summary ---
:1975 Author Organization [place] Address [address] [place] [address] Care Team Providers Name Role Phone Melvin Palaicos MD Primary Care Provider Reason for Visit Reason Comments Abdominal Pain LLQ Pain x 3 days-1week. Sha rp. Has had a Mirena since 11/2008. ? Ovarian Cyst. Encounter Details Date Type Department Care Team Description 09/20/2009 Office Visit [facility] Martin Hauser Abdominal Pain (Primary Dx); [facility] [place] Shane Garcia MD [facility] [address] [place], [place] [address] [address] [facility] [[email or web address]] [phone] [place], [place] [address] (Wo rk) Social History [...] Body Mass Index 23.37 06/19/2009 3:40 PM DRAPERY HEMMER AUTOMATIC documented in this encounter Progress Notes Harshal [...] RATE, AUTO Comment: left Martin Hauser MD [facility] documented in this encounter Nursing Notes [...] place. Martin Hauser MD SPECIAL IMAGING [facility] SED RATE, AUTO (09/20/2009 11:28 AM CDT) athologist Signature Sed Rate 5 0 - 20 mm/h [facility] Specimen Anatomical Collection Method Collection Time Receive d Time (Source) Location / / Volume Laterality 09/20/2009 11:28 09/20/2009 AM CDT 11:29 AM CDT Martin Hauser MD LABORATORY Performing Organization Address City/State/ZIP Code Phon e Number [address] [address] [facility] CBC WITH PLATELETS (09/20/2009 11:28 AM CDT) athologist Signature WBC 5.2 4.0 - 11.0 [facility] 10e9/L [facility] RBC Count 4.54 3.8 - 5.2 [facility] 10e12/L [facility] Hemoglobin 13.9 11.7 - [facility] g/dL [facility] Hematocrit 41.2 35.0 - [facility] 47.0 % [facility] MCV 91 78 - 100 [facility] MCH 30.6 26.5 - [facility] 33.0 pg [facility] MCHC 33.7 31.5 - [facility] 36.5 g/dL [facility] RDW 12.7 10.0 - [facility] 15.0 % [facility] Platelet Count 274 150 - 450 [facility] 10e9/L [facility] Specimen Anatomical Collection Method Collection Time Receive d Time (Source) Location / / Volume Laterality 09/20/2009 11:28 09/20/2009 AM CDT 11:29 AM CDT Martin Hauser MD LABORATORY Performing Organization Address City/[facility]/ZIP Code Phon e Number [address] [address] [facility] (ABNORMAL) MICRO EXAM-URINE (09/20/2009 9:39 AM CDT) [facility] gist Method Time Signature WBC Urine 2-5 (A) 0 - 2 [facility] /H[facility] RBC Urine O - 2 0 - 2 [facility] /[facility] Hyaline Casts O - 2 0 - 2 [facility] /F [facility] Squamous Many (A) FEW /LPF [facility] Epithelial [place] [facility] Urine CLINIC LAB Bacteria Urine Few (A) NEG /HPF [facility] Mucous Urine Present (A) NEG /LPF [facility] Specimen Anatomical Collection Method Collection Time Receive d Time (Source) Location / / Volume Laterality 09/20/2009 9:39 AM 0 9:40 CDT AM CDT Martin Hauser MD LABORATORY Performing Organization Address [facility]/ZIP Code Phon e Number [address] [address] [facility] (ABNORMAL) UA MICRO IF POSITIVE (09/20/2009 9:39 AM CDT) [facility] Method Time Signature Color Urine Cathy [facility] Appearance Urine Clear [facility] Glucose Urine Negative NEG mg/dL [facility] Bilirubin Urine Negative NEG [facility] Ketones Urine 40 (A) NEG mg/dL [facility] Specific [place] 1.025 1.003 - [facility] Urine 1.035 [facility] Blood Urine Trace (A) NEG [facility] pH Urine 5.5 5.0 - 7.0 [facility] pH [facility] Protein Albumin 30 (A) NEG mg/dL [facility] Urine [facility] Urobilinogen 0.2 0.2 - 1.0 [facility] Urine EU/dL [facility] Nitrite Urine Negative NEG [facility] Leukocyte Trace (A) NEG [facility] Esterase Urine [facility] Source Midstream [facility] Urine [facility] Specimen Anatomical Collection Method Collection Time Receive d Time (Source) Location / / Volume Laterality 09/20/2009 9:39 AM 0 9:40 CDT AM CDT Martin Hauser MD LABORATORY Performing Organization Address City/[facility]/ZIP Code Phon e Number [facility] [id number] [place] [address] [phone] [facility] documented in this encounter Visit Diagnoses Diagnosis LLQ abdominal pain - Primary Abdominal pain, left lower quadrant Ovarian cyst Other and unspecified ovarian cyst documented in this encounter Care Teams Information Assurance Officer Relationship Specialty Start Date End Date Melvin Palacios MD PCP - General 06/22/99 09/20/10 [address] [id number] documented as of this encounter
--- OUTSIDE RECORDS SUMMARY | 2022-04-11 21:48 | XMS_ITS | Encounter Summary ---
:1975 Author Organization [place] Address [address] [place] [address] Care Team Providers Name Role Phone Melvin Palacios MD Primary Care Provider Encounter Details Date Type Department Care Team Description 12/29/2008 Office Visit [facility] Barbara Wrist Pain (Primary Dx) [facility] [place] PA-C [id number] [place] [address] [address] [place], [place]H [phone] Social History Tobacco Use Types Packs/Day [...] forearm documented in this encounter Care Teams Network Systems Engineer Relationship Specialty Start Date End Date Melvin Palacios MD PCP - General 06/22/99 09/20/10 [address] [id number] documented as of this encounter
--- OUTSIDE RECORDS SUMMARY | 2022-04-11 21:48 | XMS_ITS | Encounter Summary ---
:1975 Author Organization [place] Address [address] [place] [address] Care Team Providers Name Role Phone Melvin Palacios MD Primary Care Provider Encounter Details Date Type Department Care Team Description 07/11/2009 Orders Only [facility] Melvin Palacios MD Routine Physical Clinic [place] [address] [place] [address] Examination (Primary [facility]) [address] [place] [phone] Social History Tobacco Use Types Packs/Day Years [...] facility documented in this encounter Care Teams Tube Cleaner Relationship Specialty Start Date End Date Melvin Palacios MD PCP - General 06/22/99 09/20/10 [address] [place] [address] documented as of this encounter
--- OUTSIDE RECORDS SUMMARY | 2022-04-11 21:48 | XMS_ITS | Encounter Summary ---
:1975 Author Organization [place] Address [address] [place] [address] Care Team Providers Name Role Phone Melvin Palacios MD Primary Care Provider Encounter Details Date Type Department Care Team Description 09/20/2009 Results Only [facility] Results EMERGENCY PHYSI [facility] [address] [place], [place] [address] (Wo rk) Social History [...] on filedocumented in this encounter Care Teams Hospice Home Care Coordinator Relationship Specialty Start Date End Date Melvin Palacios MD PCP - General 06/22/99 09/20/10 [address] [id number] documented as of this encounter
--- OUTSIDE RECORDS SUMMARY | 2022-04-11 21:48 | XMS_ITS | Encounter Summary ---
:1975 Author Organization [place] Address [address] [place] [address] Care Team Providers Name Role Phone Melvin Palacios MD Primary Care Provider Encounter Details Date Type Department Care Team Description 03/13/2009 Orders Only [facility] Barbara, Dysuria (P rimary Dx); Clinic [place] UTI (Urinary Tract Infection) [facility] [address] [place], [place] [phone] Social History Tobacco Use Types Packs/Day Years [...] ied documented in this encounter Care Teams Shredded Filler Machine Wrapper Layer Relationship Specialty Start Date End Date Melvin Palacios MD PCP - General 06/22/99 09/20/10 [address] [id number] documented as of this encounter
--- OUTSIDE RECORDS SUMMARY | 2022-04-11 21:48 | XMS_ITS | Encounter Summary ---
:1975 Author Organization [place] Address [address] [place] [address]. [place] [address] Care Team Providers Name Role Phone Melvin Palacios MD Primary Care Provider Esmer Roland MD Primary Care Provider [phone] Encounter Details Date Type Department Care Team Description 03/27/2009 Historic Roller Stitcher [facility] Heladio, Mental Health & Katey Pineda LP, Addiction [facility] [address] [place] [address] [place] [address] [phone] (Wo rk) Social History Tobacco Use Types Packs/Day Years Used Date Smoking Tobacco: Every Day Comments: 1-2 every other day Alcohol Use Standard Drinks/Week Comments Yes 0 (1 standard drink = 0.6 oz pure alcoho l) social Sex Assigned at Date Recorded Not on file documented as of this encounter Progress Notes Katey Patricia LP, [facility] - 05/14/2011 5:58 AM WIND TURBINE ELECTRICAL ENGINEER FINAL INITIAL ASSESSMENT IDENTIFYING INFORMATION: Dariana is [...] overwhelming. 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 She states her supervisor mold construction recently pointed out to her that Dariana perhaps was coming across as possibly irritable and impatient with the patients at the clinic. By the suggestion of her supervisor mold construction and in conjunction with her family practice doctor, Dariana decided to take a medical leave of absence and she is due to return from her medical leave on 04/24/2009. She was referred to therapy via her family physician, Dr. Melvin Palacios of [facility]. She has been apparently agreeable and cooperative in following recommendations both of her supervisor mold construction and her physician. She wants to pursue counseling as well as she feels she is under increased stress between the breakup of her marriage, soon leading to final divorce as well as job stress and ongoing parenting responsibilities. Her supervisor mold construction and her physician have both been supportive and her supervisor mold construction has been encouraging her to take care of myself. Her supervisor mold construction along with her corporate representative then reviewed with Dariana, her options. [facility] then saw Dr. Palacios who established with [...] I take a medical leave per my erp manager. She admits to extreme anxiety and panic attacks and is being treated by Dr. Palacios with medication as well. Therefore, she pursues counseling, in particular to reduce her anxiety and depression symptoms. She admits she has had very little counseling in the past and is not quite sure how to talk about issues in her counseling. SOCIAL HISTORY: Dariana grew up in [place], [place], and is the 3rd child of 4. She grew up in an intact Zoroastrianism family household. Dariana feels that her upbringing was normal. She feels that her family life was great and the family's hoahaoism involvement helped them become a strong cohesive [...] previously mentioned, she is currently the patient dealer compliance representative for a medical clinic. 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 She admits to having extreme performance anxiety during her education, particularly test anxiety. She currently attends hoahaoism and her Christian continues to be central to her life. [...] she did attend some college classes at [employer], but does prefer learning which is hands [...] is Dr. Melvin Palacios and her Physician Combination Man is Tobi Gonzalez. She feels she has a good working relationship with her PCP and the Physician Combination Man at [facility]. The phone number at [facility] is [phone]. Dariana feels that in general, her health [...] ago in 03/2008, and was admitted to [facility] to have the kidney stone [...] She frequently becomes tearful and she has sheet fed printer insomnia. She admits to ongoing fears and [...] physician, Dr. Palacios and Tobi Gonzalez, physician multimedia production assistant. Individual sessions 2-3x/month for 3-6 months would be anticipated There are no issues which will not be addressed during this episode of care. Dariana may receive a copy of her chart upon written request. Electronically signed on 05/15/2009 18:57 by KATEY PATRICIA MA, MEGHAN, WRINKLE CHASER MT: FRANCO Name: DARIANA VALDEZ MRN: [id number] Account: [id number] : 1975 Service Date: 03/27/2009 Document: [id number] TURBINE ELECTRICAL ENGINEER documented in this encounter Plan of Treatment Not on filedocumented as of this encounter Visit Diagnoses Not on filedocumented in this encounter Care Teams [employer] Relationship Specialty Start Date End Date Melvin Palacios MD PCP - General 06/22/99 09/20/10 [address] [id number] Esmer Roland MD PCP - General Family Practice 09/21/10 01/29/17 documented as of this encounter
--- OUTSIDE RECORDS SUMMARY | 2022-04-11 21:48 | XMS_ITS | Encounter Summary ---
:1975 Author Organization [place] Address [address] [place] [address] Care Team Providers Name Role Phone Melvin Palacios MD Primary Care Provider Encounter Details Date Type Department Care Team Description 03/13/2009 Orders Only [facility] Dys uria; [place] [facility] Other Nonspecific Finding on Examination of Urine [facility], [address] [place] [address] Social History Tobacco Use [...] Component Value Ref Test Analysis Performed At [facility] Range Method Time Signature WBC Urine 10-25 0 - 2 [place] Clumps of WBC's seen (A) /HPF [facility] RBC Urine 50-100 (A) 0 - 2 [facility] /HPF [facility] Squamous EPI Few FEW /LPF [facility] Bacteria Many (A) NEG /HPF [place] Urine [facility] Comment Urine was tested [place] [facility] because <10 ml CLINIC LAB was received. Specimen Anatomical Collection Method Collection Time Receive d Time (Source) Location / / Volume Laterality 03/13/2009 9:15 AM 9 9:17 CDT AM CDT Aleksandra Jimenez PA-C LABORATORY Performing Organization Address City/State/ZIP Code Phon e Number [facility] [place] [address] [facility] URINE CULTURE (03/13/2009 9:15 AM CDT) Component Value Ref Test Analysis Performed At Patholo gist Range Method Time Signature Specimen Midstream Urine [place] Description [facility] Culture Micro >100,000 [place] colonies/mL [facility] coli Report status FINAL [place] 03/14/2009 [facility] Specimen Anatomical Collection [...] Organization Address City/State/ZIP Code Phon e Number [facility] [address] [place] [address] [facility] (ABNORMAL) UA MICRO IF POSITIVE (03/13/2009 9:15 AM CDT) [facility] Method Time Signature Color Urine Yellow [facility] Appearance Urine Slightly [place] Cloudy [facility] Glucose Urine Negative NEG mg/dL [facility] Bilirubin Urine Negative NEG [facility] Ketones Urine Trace (A) NEG mg/dL [facility] Specific [place] >1.030 1.003 - [place] Urine 1.035 [facility] Blood Urine Large (A) NEG [facility] pH Urine 5.0 5.0 - 7.0 [place] pH [facility] Protein Albumin 30 (A) NEG mg/dL [facility] Urobilinogen 0.2 0.2 - 1.0 [place] Urine EU/dL [facility] Nitrite Urine Negative NEG [facility] Leukocyte Moderate (A) NEG [place] Esterase Urine [facility] Source Midstream [facility] Specimen Anatomical Collection Method Collection Time Receive d Time (Source) Location / / Volume Laterality 03/13/2009 9:15 AM 9:17 CDT AM CDT Authorizing Provider Result Ester Jimenez PA-C LABORATORY Performing Organization Address City/[facility]/ZIP Code Phon e Number [facility] [place], [place] [id number] [facility] documented in this encounter Visit Diagnoses Diagnosis Dysuria Other nonspecific finding on examination of urine documented in this encounter Care Teams Powerhouse Operator Relationship Specialty Start Date End Date Melvin Palacios MD PCP - General 06/22/99 09/20/10 [address] [id number] documented as of this encounter
--- OUTSIDE RECORDS SUMMARY | 2022-04-11 21:48 | XMS_ITS | Encounter Summary ---
:1975 Author Organization [place] Address [address] [place] [address] Care Team Providers Name Role Phone Melvin Palacios MD Primary Care Provider Reason for Visit Reason Onset Date Comments Refill Request 06/01/2009 [place] Encounter Details Date Type Department Care Team Description 06/01/2009 Refill [facility] Melvin Palacios MD Refill Request (Ambien) Clinic [address] [place] [address] [phone] Social History Tobacco Use Types Packs/Day Years [...] 11:28 AM CST Already completed. Jeimy Bowman STRUCTURAL STEEL TRADES WORKER ZINE EDITOR documented in this encounter Plan of Treatment Not on filedocumented as of this encounter Visit Diagnoses Diagnosis Adjustment disorder with anxiety documented in this encounter Care Teams Special Education Classroom Aide Relationship Specialty Start Date End Date Melvin Palacios MD PCP - General 06/22/99 09/20/10 [address] [address] documented as of this encounter
--- OUTSIDE RECORDS SUMMARY | 2022-04-11 21:48 | XMS_ITS | Encounter Summary ---
:1975 Author Organization [place] Address [address] [place] [address] Care Team Providers Name Role Phone Melvin Palacios MD Primary Care Provider Reason for Referral - Closed Specialty Diagnoses / Procedures Referred By Contact Refer red To Contact Diagnoses Adjustment disorder with anxiety Melvin Palacios MD [address] [place] [address] Referral ID Status Reason Start Date Expiration Date Visits Requ ested Visits Authorized [id number] Closed 02/27/2009 06/08/2011 1 1 Reason for Visit Reason Comments Anxiety Encounter Details Date Type Department Care Team Description 02/27/[address] [facility] Melvin Palacios MD Adjustment Disorder Clinic [place] [address] Janie with Anxiety (Primary [address] [place] [address] Dx) [place], [place] [address] [phone] Social History Tobacco Use Types Packs/Day Years [...] ry documented in this encounter Care Teams Academic Director Relationship Specialty Start Date End Date Melvin Palacios MD PCP - General 06/22/99 09/20/10 [address] [id number] documented as of this encounter
--- OUTSIDE RECORDS SUMMARY | 2022-04-11 21:48 | XMS_ITS | Encounter Summary ---
:1975 Author Organization [place] Address [address] [place] [address] Care Team Providers Name Role Phone Melvin Palacios MD Primary Care Provider Encounter Details Date Type Department Care Team Description 07/11/2009 Orders Only [facility] Physical [place] [facility], [address] [place] [address] Social History Tobacco Use [...] Routine Physical Re sults for this PLATELETS FURNITURE STAINER Examination procedure are i n the results section. HCL COMPREHENSIVE Routine 07/11/2009 9:48 AM Routine Physical Results for this METABOLIC PANEL FURNITURE STAINER Examination procedure ar e in the results section. HCL TSH W/FREE T4 Routine 07/11/2009 9:48 AM Routine Physical Results for this REFLEX FURNITURE STAINER Examination procedure are i n the results section. CL AFF A.M.A. LIPID Routine 07/11/2009 9:48 AM Routine Physica l Results for this PANEL FURNITURE STAINER Examination procedure are i n the results section. documented in this encounter Results CBC WITH PLATELETS (07/11/2009 9:48 AM FURNITURE STAINER) athologist Signature WBC 5.5 4.0 - 11.0 [facility] 10e9/L [facility] RBC Count 4.68 3.8 - 5.2 [facility] 10e12/L [facility] Hemoglobin 14.3 11.7 - [facility] 15.7 g/dL [facility] Hematocrit 42.4 35.0 - [facility] 47.0 % [facility] MCV 91 78 - 100 [facility] fl [facility] MCH 30.6 26.5 - [facility] 33.0 pg [facility] MCHC 33.7 31.5 - [facility] 36.5 g/dL [facility] RDW 12.4 10.0 - [facility] 15.0 % [facility] Platelet Count 275 150 - 450 [facility] 10e9/L [facility] Specimen Anatomical Collection Method Collection Time Receive d Time (Source) Location / / Volume Laterality 07/11/2009 9:48 AM 0 9:51 FURNITURE STAINER AM FURNITURE STAINER Aleksandra Jimenez PA-C LABORATORY Performing Organization Address City/State/ZIP Code Phon e Number [facility] [address] [place] [address] [facility] TSH W/FREE T4 REFLEX (07/11/2009 9:48 AM FURNITURE STAINER) athologist Signature TSH 1.36 0.4 - 5.0 [facility] Specimen Anatomical Collection Method Collection Time Receive d Time (Source) Location / / Volume Laterality 07/11/2009 9:48 AM 0 9:51 FURNITURE STAINER AM FURNITURE STAINER Aleksandra Jimenez PA-C LABORATORY Performing Organization Address City/State/ZIP Code Phon e Number [facility] [address] [place] [address] [facility] A.M.A. COMPREHENSIVE MET.PANEL (07/11/2009 9:48 AM FURNITURE STAINER) athologist Signature Sodium 143 133 - 144 [facility] mmol/L [facility] Potassium 4.4 3.4 - 5.3 [facility] mmol/L [facility] Chloride 105 94 - 109 [facility] mmol/L [facility] Carbon Dioxide 26 20 - 32 [facility] mmol/L [facility] Anion Gap 11 6 - 17 [facility] mmol/L [facility] Glucose 85 60 - 99 [facility] mg/dL [facility] Urea Nitrogen 9 5 - 24 [facility] mg/dL [facility] Creatinine 0.91 0.52 - [facility] 1.04 mg/dL [facility] LAB Comment: New IDMS-traceable calibration beginning 10/08/07 GFR Estimate 72 >60 mL/min/1.7m2 [facility] GFR Estimate If Black 87 >60 mL/min/1.7m2 [facility] Calcium 9.5 8.5 - 10.4 mg/dL [facility] N [facility] Bilirubin Total 0.7 0.2 - 1.3 mg/dL [facility] Albumin 4.7 3.9 - 5.1 g/dL [facility] Comment: Reference range changed on 02/08. Protein Total 7.5 6.8 - 8.8 g/dL [facility] Comment: As of 07, reference range reflects plasma specimen type. Alkaline Phosphatase 46 40 - 150 U/L [facility] ALT <6 0 - 50 U/L [facility] AST 13 0 - 45 U/L [facility] LAB Specimen Anatomical Collection Method Collection Time Receive d Time (Source) Location / / Volume Laterality 07/11/2009 9:48 AM 0 9:51 FURNITURE STAINER AM FURNITURE STAINER Aleksandra Jimenez PA-C LABORATORY Performing Organization Address City/State/ZIP Code Phon e Number [facility] [address] [place] [address] [facility] (ABNORMAL) A.M.A. LIPID PANEL (07/11/2009 9:48 AM FURNITURE STAINER) athologist Signature Cholesterol 156 0 - 200 [facility] mg/dL CLINIC LAB Comment: LDL Cholesterol [...] mg/dL. Triglycerides 117 0 - 150 mg/dL [facility] HDL Cholesterol 42 (L) 50 - 110 mg/dL [facility] LDL Cholesterol Calculated 91 0 - 129 mg/dL [facility] Comment: LDL Cholesterol is the primary guide to therapy: LDL-cholesterol goal in high risk patients is <100 mg/dL and in very high risk patients is <70 mg/dL. VLDL-Cholesterol 23 0 - 30 mg/dL [facility] Cholesterol/HDL Ratio 3.7 0.0 - 5.0 [facility] Specimen Anatomical Collection Method Collection Time Receive d Time (Source) Location / / Volume Laterality 07/11/2009 9:48 AM 0 9:51 FURNITURE STAINER AM FURNITURE STAINER Aleksandra Jimenez PA-C LABORATORY Performing Organization Address City/State/ZIP Code Phon e Number [facility] [address] [place] [address] [facility] documented in this encounter Visit Diagnoses Diagnosis Routine physical examination Routine general medical examination at a health care facility documented in this encounter Care Teams Key Carrier Relationship Specialty Start Date End Date Melvin Palacios MD PCP - General 06/22/99 09/20/10 [address] [id number] documented as of this encounter
--- OUTSIDE RECORDS SUMMARY | 2022-04-11 21:48 | XMS_ITS | Encounter Summary ---
:1975 Author Organization [place] Address [address] [place] [address] Care Team Providers Name Role Phone Melvin Palacios MD Primary Care Provider Reason for Visit Reason Onset Date Comments Refill Request 07/04/2009 CLONAZEPAM 1MG Refill Request 07/04/2009 AMBIEN Encounter Details Date Type Department Care Team Description 07/04/2009 Refill [facility] Melvin Palacios MD Refill Request Clinic [place] [address] (CLONAZEPAM 1MG); Refill [phone] [facility] Request (AMBIEN) [place] [address] [phone] Social History Tobacco Use Types Packs/Day Years [...] Unable to fill PSO Stacey Torres RN GRADER OPERATOR Telephone Encounter - Mary Monge - 07/04/2009 9:40 AM CST CLONAZEPAM LAST FILL DATE: 06/12/2009 LAST QTY: 30 [facility] AMBIEN LAST FILL DATE: 06/01/2009 LAST QTY: 30 [facility] GRADER OPERATOR documented in this encounter Plan of Treatment Not on filedocumented as of this encounter Visit Diagnoses Diagnosis Adjustment disorder with anxiety - Prima ry documented in this encounter Care Teams Sapphire Stylus Grinder Relationship Specialty Start Date End Date Melvin Palacios MD PCP - General 06/22/99 09/20/10 [address] [id number] documented as of this encounter
--- OUTSIDE RECORDS SUMMARY | 2022-04-11 21:48 | XMS_ITS | Encounter Summary ---
:1975 Author Organization [place] Address [address] [place] [address] Care Team Providers Name Role Phone Melvin Palacios MD Primary Care Provider Reason for Visit Reason Onset Date Comments Refill Request 09/09/2009 ZOLPIDEM 10MG Encounter Details Date Type Department Care Team Description 09/09/2009 Refill [facility] Melvin Palacios MD Refill Request (ZOLPIDEM Clinic [place] [address] 10MG) [address] [place], [place] [address] [phone] Social History Tobacco Use Types Packs/Day Years [...] ry documented in this encounter Care Teams Gridcap Machine Operator Relationship Specialty Start Date End Date Melvin Palacios MD PCP - General 06/22/99 09/20/10 [address] [id number] documented as of this encounter
--- OUTSIDE RECORDS SUMMARY | 2022-04-11 21:48 | XMS_ITS | Encounter Summary ---
:1975 Author Organization [place] Address [address] [place] [address] Care Team Providers Name Role Phone Melvin Palacios MD Primary Care Provider Reason for Visit Reason Onset Date Comments Refill Request 06/01/2009 ZOLPIDEM 10MG Encounter Details Date Type Department Care Team Description 06/01/2009 Refill [facility] Melvin Palacios MD Refill Request (ZOLPIDEM Clinic [place] [address] 10MG) [address] [place], [place] [address] [phone] Social History Tobacco Use Types Packs/Day Years Used Date Smoking Tobacco: Every Day Comments: 1-2 every other day Alcohol Use Standard Drinks/Week Comments Yes 0 (1 standard drink = 0.6 oz pure alcoho l) social Sex Assigned at Date Recorded Not on file documented as of this encounter Miscellaneous Notes Telephone Encounter - Melissa Pickett - 06/01/2009 9:55 AM CST Last office visit: [id number] Reason for visit: adj. disorder Date last filled: see below NOT A PSO MED ROUTED TO CIRCULATION MANAGER-SINDHU Pickett RN SPECIALIST Telephone Encounter - Kristine Bermudez - 06/01/2009 9:50 AM CST Last filled 05/02/09 Qty 30 Kristine [facility] RX PLEASE WALK OVER TO THE PHARMACY SPECIALIST documented in this encounter Plan of Treatment Not on filedocumented as of this encounter Visit Diagnoses Diagnosis Adjustment disorder with anxiety - Prima ry documented in this encounter Care Teams Alarm Installation Technician Relationship Specialty Start Date End Date Melvin Palacios MD PCP - General 06/22/99 09/20/10 [address] [id number] documented as of this encounter
--- OUTSIDE RECORDS SUMMARY | 2022-04-11 21:48 | XMS_ITS | Encounter Summary ---
:1975 Author Organization [place] Address [address] [facility] [place] [address] Care Team Providers Name Role Phone Melvin Palacios MD Primary Care Provider Reason for Visit Reason Comments Recheck Medication FU on depression meds Encounter Details Date Type Department Care Team Description 12/15/2008 Office Visit [facility] [place] ANXIETY STATE NOS; Clinic [place] Insomnia; [address] [facility] [id number] [place] [address] Major [place], [place] [address] [id number] Social History Tobacco Use Types Packs/Day Years [...] BP completed using cuff size large Melissa Ricks/TRAFFIC OR SYSTEM DISPATCHER documented in this encounter Plan of Treatment Not on filedocumented as of this encounter Visit Diagnoses Diagnosis ANXIETY STATE NOS Anxiety state, unspecified Insomnia Insomnia, unspecified Major depressive disorder, single episod e, severe, without mention of psychotic behavior documented in this encounter Care Teams Gluing Crew Leader Relationship Specialty Start Date End Date Melvin Palacios MD PCP - General 06/22/99 09/20/10 [address] [phone] documented as of this encounter
--- OUTSIDE RECORDS SUMMARY | 2022-04-11 21:48 | XMS_ITS | Encounter Summary ---
:1975 Author Organization [place] Address [address] [place] [address] Care Team Providers Name Role Phone Melvin Palacios MD Primary Care Provider Reason for Visit Reason Comments Forms Encounter Details Date Type Department Care Team Description 08/16/2009 Office Visit [facility] Melvin Palacios MD Adjustment Disorder with Depressed Mood; Clinic [address] Migraine Headaches [address] [place], [place] [address] [phone] Social History Tobacco Use Types Packs/Day Years [...] Comments Blood Pressure 118/65 08/16/2009 2:54 PM AUTOMATIC BLOCKER Pulse 82 08/16/2009 2:54 PM AUTOMATIC BLOCKER Temperature - - Respiratory Rate - - Oxygen Saturation - - Inhaled Oxygen Concentration - - Weight 69.9 kg (154 lb) 08/16/2009 2:54 PM AUTOMATIC BLOCKER Height - - Body Mass Index 24.48 06/19/2009 3:40 PM AUTOMATIC BLOCKER documented in this encounter Progress Notes Melvin Palacios - 08/16/2009 3:16 PM CST Pt here for completion of two separate FMLA forms for migraine HAYES intermittent absence issues and 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 Her igraines have improved markedly as she has not had migraine in nearly 3 months. Pt is now in counselling at [facility] and has developed an excellent rapport with therapist. EXAM: PSYCH: euthymic. No violent ideation. No delusions or hallucinations. A/P; 1- Migraine HAYES hx. Stable. 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 Doing well. Maintain curent medications, her use of prn meds imarkedly reduced. No refill given today. F/u in 2 months. MATIC BLOCKER documented in this encounter Nursing Notes 08/16/2009 [...] migrainosus documented in this encounter Care Teams Basting Cleaner Relationship Specialty Start Date End Date Melvin Palacios MD PCP - General 06/22/99 09/20/10 [address] [id number] documented as of this encounter
--- OUTSIDE RECORDS SUMMARY | 2022-04-11 21:48 | XMS_ITS | Encounter Summary ---
:1975 Author Organization [place] Address [address] [place] [address] Care Team Providers Name Role Phone Melvin Palacios MD Primary Care Provider Reason for Visit Reason Onset Date Comments Refill Request 04/20/2009 ALPRAZOLAM Encounter Details Date Type Department Care Team Description 04/20/[address] [facility] Melvin Palacios MD Refill Request Clinic [place] [address] (ALPRAZOLAM) [address] [place], [place] [address] [address] [phone] Social History Tobacco Use Types Packs/Day Years [...] FILL DATE: 02/14/09 QTY: 40 Camilo Hammonds [facility] MILLING SUPERVISOR documented in this encounter Plan of Treatment Not on filedocumented as of this encounter Visit Diagnoses Diagnosis Routine gynecological examination documented in this encounter Care Teams Mechanical Engineering Technologist Relationship Specialty Start Date End Date Melvin Palacios MD PCP - General 06/22/99 09/20/10 [address] [id number] documented as of this encounter
--- OUTSIDE RECORDS SUMMARY | 2022-04-11 21:48 | XMS_ITS | Encounter Summary ---
:1975 Author Organization [place] Address [address] [place] [address] Care Team Providers Name Role Phone Melvin Palacios MD Primary Care Provider Encounter Details Date Type Department Care Team Description 10/19/2009 Orders Only [facility] DEP RESSIVE DISORDER NEC; [facility] Adjustment Disorder with Dep ressed Mood [facility], [address] [place] [address] Social History Tobacco Use [...] CDT) P athologist Signature Progesterone 0.8 ng/mL [facility] Comment: Progesterone Reference Range Female Non ? Follicular ?0.15-1.4 ? Luteal ?3.4-25 .6 ? Postmenopausal ??<0.15-0.73 ? 1st Trimester ?? 11.2-90.0 ? 2nd Trimester ?? 25.6-89.4 ? 3rd Trimester ?? 48.4-422.5 Specimen Anatomical Collection Method Collection Time Receive d Time (Source) Location / / Volume Laterality 10/19/2009 11:04 10/19/2009 AM CDT 11:06 AM CDT Aleksandra Jimenez PA-C LABORATORY Performing Organization Address City/[facility]/ZIP Code Phon e Number [facility] [address] LABS VITAMIN B12, SERUM (10/19/2009 11:04 AM CDT) athologist Signature Vitamin B12 285 >210 pg/mL [facility] Comment: Interp: [phone] = Normal Specimen Anatomical Collection Method Collection Time Receive d Time (Source) Location / / Volume Laterality 10/19/2009 11:04 10/19/2009 AM CDT 11:06 AM CDT Aleksandra Jimenez PA-C LABORATORY Performing Organization Address City/State/ZIP Code Phon e Number [facility] [address] LABS (ABNORMAL) VITAMIN D DEFICIENCY SCREENING (10/19/2009 11:04 AM CDT) Component Value Ref Test Analysis Performed At Patholo gist Range Method Time Signature 25 [place] Vit D2 <5 ug/L [facility] 25 [place] Vit D3 24 ug/L [facility] 25 [place] Vit D <29 30 - 75 [facility] total Season, race, dietary intake, and treatm ent affect the concentration of ug/L [id number]-qn[facility]-E[facility] D. Values may decrease during odalis er months and increase [facility]AMPUS [facility]S during summer months. Values less than 30 ug/L may indicate Vitamin D deficiency. (L) Specimen Anatomical Collection Method Collection Time Receive d Time (Source) Location / / Volume Laterality 10/19/2009 11:04 10/19/2009 AM CDT 11:06 AM CDT Aleksandra Jimenez PA-C LABORATORY Performing Organization Address City/[facility]/ZIP Code Phon e Number [facility] [address] [place] [address] [facility] ESTROGENS, TOTAL, SERUM (10/19/2009 11:04 AM CDT) [facility] gist Method Time Signature Estrogen (Note) [facility] Total Test ?Result ??Units [place] Estrogen, Total, Serum ?254 ? pg/mL [place] [facility] Reference Range Ranges For Total Estrogen: ??Early Follicular Phase: ?? 70-400 pg/mL ??Late Follicular Phase: ?? 100-900 pg/ml ??Luteal Phase: ? 70-700 pg/mL ??Postmenopausal: ? < or = 130 pg/mL The total estrogen assay is not recommended for use in pre-p ubertal children. Asayed at: [place] [address] Specimen Anatomical Collection Method Collection Time Receive d Time (Source) Location / / Volume Laterality 10/19/2009 11:04 10/19/2009 AM CDT 11:06 AM CDT Aleksandra Jimenez PA-C LABORATORY Performing Organization Address City/[facility] Code Phon e Number [facility] [address] [place] [address] [facility] documented in this encounter Visit Diagnoses Diagnosis DEPRESSIVE DISORDER NEC Depressive disorder, not elsewhere class ified Adjustment disorder with depressed mood documented in this encounter Care Teams Bacon Skin Lifter Relationship Specialty Start Date End Date Melvin Palacios MD PCP - General 06/22/99 09/20/10 [address] [place] [id number] documented as of this encounter
--- OUTSIDE RECORDS SUMMARY | 2022-04-11 21:48 | XMS_ITS | Encounter Summary ---
:1975 Author Organization [place] Address [address] [place] [address] Care Team Providers Name Role Phone Melvin Palacios MD Primary Care Provider Reason for Visit Reason Onset Date Comments Refill Request 05/17/2009 ALPRAZOLAM Encounter Details Date Type Department Care Team Description 05/17/2009 Refill [facility] Melvin Palacios MD Refill Request Clinic [place] [address] (ALPRAZOLAM) [address] [place] [address] [phone] Social History Tobacco Use Types Packs/Day Years [...] Signed rx hand faxed Melissa Pickett RN GER PLAY Telephone Encounter - Ernestine Salinas - 05/17/2009 4:33 PM CST Last OV: 05/17/09 Reason for visit: adjustment disorder Date last filled: 04/20/09 Not pso, routed, need to walk over Ernestine Salinas RN GER PLAY Telephone Encounter - Deidre Alas - 05/17/2009 3:49 PM CST LAST FILL DATE: 04/21/09 QTY: 40 Mechelle Alas, [facility] documented in this encounter Plan of Treatment Not on filedocumented as of this encounter Visit Diagnoses Diagnosis Routine gynecological examination documented in this encounter Care Teams Cloth Bleaching Range Back Tender Relationship Specialty Start Date End Date Melvin Palacios MD PCP - General 06/22/99 09/20/10 [address] [phone] documented as of this encounter
--- OUTSIDE RECORDS SUMMARY | 2022-04-11 21:48 | XMS_ITS | Encounter Summary ---
:1975 Author Organization [place] Address [address] [place] [address] Care Team Providers Name Role Phone Melvin Palacios MD Primary Care Provider Reason for Visit Reason Onset Date Comments Refill Request 07/29/2009 Encounter Details Date Type Department Care Team Description 07/29/2009 MyC Refill [facility] Zena Palacios MD Refill Request [address] [phone] (W ork) [address] [phone] Social History Tobacco Use Types Packs/Day Years [...] visit: adjustment disorder w/anxiety Date last filled: [id number] KLONOPIN IS NOT A PSO MED FILLED OMEPRAZOLE PER PSO Laina Pickett RN UST DRIER Telephone Encounter - Melissa Pickett - 07/31/2009 11:31 AM SAWDUST DRIER Message from [employer]: Dariana Osman would like a refill of the following medications: OMEPRAZOLE 40 MG OR CPDR [Melvin Palacios MD] KLONOPIN 1 MG OR TABS [Melvin Palacios MD] Preferred pharmacy: [facility] Comment: Dr Palacios - I have noticed a little more use than PRN for my Klonopin and Omeprazole. It seems to be the week when the boys are with their father.Dariana UST DRIER documented in this encounter Plan of Treatment Not on filedocumented as of this encounter Visit Diagnoses Diagnosis Gastropareses Gastroparesis GERD (gastroesophageal reflux disease) Esophageal reflux Nausea Nausea alone Adjustment disorder with anxiety documented in this encounter Care Teams Sandwich And Drink Cart Operator Relationship Specialty Start Date End Date Melvin Palacios MD PCP - General 06/22/99 09/20/10 [address] [phone] documented as of this encounter
--- OUTSIDE RECORDS SUMMARY | 2022-04-11 21:48 | XMS_ITS | Encounter Summary ---
:1975 Author Organization [place] Address [address] [place] [address] Care Team Providers Name Role Phone Melvin Palacios MD Primary Care Provider Reason for Visit Reason Onset Date Comments Refill Request 05/01/2009 JUANAONOMALCOLM Encounter Details Date Type Department Care Team Description 05/01/2009 Refill [facility] Melvin Palacios MD Refill Request Clinic [address] (KLONOPIN) [address] [place] [address] [place] [address] [phone] Social History Tobacco Use Types Packs/Day Years [...] Also needs zolpidem refilled Ernestine Salinas RN RAFT MECHANIC ELECTRICAL AND RADIO Telephone Encounter - Ernestine Salinas - 05/01/2009 2:05 PM CST See below Last OV: 04/20/09 Reason for visit: adjustment disorder Not pso, routed, need to walk rx over, Suzanne gone, routed to Ernestine Salinas RN RAFT MECHANIC ELECTRICAL AND RADIO Telephone Encounter - Deidre Alas - 05/01/2009 1:58 PM CST LAST FILL DATE: 04/03/09 QTY: 60 Mechelle Alas [facility] RAFT MECHANIC ELECTRICAL AND RADIO documented in this encounter Plan of Treatment Not on filedocumented as of this encounter Visit Diagnoses Diagnosis Adjustment disorder with anxiety - Prima ry documented in this encounter Care Teams Academic Support Specialist Relationship Specialty Start Date End Date Melvin Palacios MD PCP - General 06/22/99 09/20/10 [address] [phone] documented as of this encounter
--- OUTSIDE RECORDS SUMMARY | 2022-04-11 21:48 | XMS_ITS | Encounter Summary ---
:1975 Author Organization [place] Address [address] [place] [address] Care Team Providers Name Role Phone Melvin Palacios MD Primary Care Provider Reason for Visit Reason Comments Medication Request Encounter Details Date Type Department Care Team Description 07/07/2009 Office Visit [facility] Melvin Palacios MD Adjustment Disorder Clinic [place] [address] with Anxiety (Primary [address] [facility]) [place], [place] [address] [phone] Social History Tobacco Use Types Packs/Day Years [...] Comments Blood Pressure 112/62 07/07/2009 10:38 AM DIFFUSION OPERATOR Pulse 64 07/07/2009 10:38 AM DIFFUSION OPERATOR Temperature - - Respiratory Rate - - Oxygen Saturation - - Inhaled Oxygen Concentration - - Weight 68.9 kg (152 lb) 07/07/2009 10:38 AM DIFFUSION OPERATOR Height - - Body Mass Index 24.17 06/19/2009 3:40 PM DIFFUSION OPERATOR documented in this encounter Progress Notes [...] to improve counselling and eas scheduling conflicts. USION OPERATOR documented in this encounter Nursing Notes 07/07/2009 [...] ry documented in this encounter Care Teams Avionics Integration Engineer Relationship Specialty Start Date End Date Melvin Palacios MD PCP - General 06/22/99 09/20/10 [address] [id number] documented as of this encounter
--- OUTSIDE RECORDS SUMMARY | 2022-04-11 21:48 | XMS_ITS | Encounter Summary ---
:1975 Author Organization [place] Address [address] [place] [address] Care Team Providers Name Role Phone Melvin Palacios MD Primary Care Provider Reason for Visit Reason Comments RECHECK meds, migraines, not keeping food down Patient Request for Note/Letter for FMLA - verify date s that she missed work Refill Request Celexa - 3 months Encounter Details Date Type Department Care Team Description 06/19/2009 Office Visit [facility] Melvin Palacios MD Gastropareses; Clinic [address] GERD (Gastroesophageal Reflu x Disease); [address] [place] [address] Nausea; [place], [place] [facility] [place] ANXIETY S [place] NOS; [phone] Major Depress Dis, Severe [phone] Social History Tobacco Use Types Packs/Day Years [...] Comments Blood Pressure 110/58 06/19/2009 3:40 PM SWEATBAND PERFORATOR Pulse 66 06/19/2009 3:40 PM SWEATBAND PERFORATOR Temperature 36.9 ??C (98.4 ??F) 06/19/2009 3:40 PM SWEATBAND PERFORATOR Respiratory Rate - - Oxygen Saturation - - Inhaled Oxygen Concentration - - Weight 69.9 kg (154 lb) 06/19/2009 3:40 PM SWEATBAND PERFORATOR Height 168.9 cm (5' 6.5) 06/19/2009 3:40 PM SWEATBAND PERFORATOR Body Mass Index 24.48 06/19/2009 3:40 PM SWEATBAND PERFORATOR documented in this encounter Progress Notes Melvin [...] flare. FMLA clarified to reflect lost dates. TBAND PERFORATOR documented in this encounter Nursing Notes 06/19/2009 [...] behavior documented in this encounter Care Teams Railroad Signal And Switch Operator Relationship Specialty Start Date End Date Melvin Palacios MD PCP - General 06/22/99 09/20/10 [address] [id number] documented as of this encounter
--- OUTSIDE RECORDS SUMMARY | 2022-04-11 21:48 | XMS_ITS | Encounter Summary ---
:1975 Author Organization [place] Address [address] [place] [address] Care Team Providers Name Role Phone Melvin Palacios MD Primary Care Provider Reason for Visit Reason Onset Date Comments Refill Request 02/14/2009 ALPRAZOLAM Encounter Details Date Type Department Care Team Description 02/14/2009 Refill [facility] Melvin Palacios MD Refill Request Clinic [place] [address] (ALPRAZOLAM) [address] [place] [address] [phone] Social History Tobacco Use Types Packs/Day Years [...] FILL DATE: 12/27/08 QTY: 40 Camilo Hammonds [facility] documented in this encounter Plan of Treatment Not on filedocumented as of this encounter Visit Diagnoses Diagnosis Routine gynecological examination - Prim harpal documented in this encounter Care Teams Block Trader Relationship Specialty Start Date End Date Melvin Palacios MD PCP - General 06/22/99 09/20/10 [address] [id number] documented as of this encounter
--- OUTSIDE RECORDS SUMMARY | 2022-04-11 21:48 | XMS_ITS | Encounter Summary ---
:1975 Author Organization [place] Address [address] [facility] [place] [address] Care Team Providers Name Role Phone Melvin Palacios MD Primary Care Provider Reason for Visit Reason Comments Medication Problem with her ambien- she takes i t at 10 30 or 11 pm and she is up by 4 am. Her panic attacks have d ecreased- however she is not working anymore. Encounter Details Date Type Department Care Team Description 03/22/[address] [facility] Melvin Palacios MD Adjustment Disorder Clinic [place] [address] with Anxiety (Primary [address] [facility]) [place] [address] [phone] Social History Tobacco Use Types Packs/Day Years [...] ry documented in this encounter Care Teams Senior Grants Officer Relationship Specialty Start Date End Date Melvin Palacios MD PCP - General 06/22/99 09/20/10 [address] [address] documented as of this encounter
--- OUTSIDE RECORDS SUMMARY | 2022-04-11 21:48 | XMS_ITS | Encounter Summary ---
:1975 Author Organization [facility] Address [address] [place] [address] Care Team Providers Name Role Phone Melvin Palacios MD Primary Care Provider Esmer Roland MD Primary Care Provider [phone] Yony Garcia PA-C Primary Care Provider [phone] Yony Garcia PA-C Unavailable [phone] Erik Rivas Primary Care Provider Yony Garcia PA-C Unavailable [phone] Reason for Visit Reason Onset Date Comments Patient Inquiry 06/27/2009 [facility] Encounter Details Date Type Department Care Team Description 06/27/2009 [facility] Melvin Palacios MD Patient Inquiry Clinic [place] [address] ([facility] - [address] [place] [address]) [place], [place] [phone] (Wo rk) Social History Tobacco Use Types [...] - 06/27/2009 2:20 PM CST Arlene Reyes, Field Examiner Adalgisa with [facility] [phone] called regarding a release of information Dariana was requesting her records be faxed to her [facility]. Adalgisa states that she has been missing her appointments. Has had some no shows. Cancelled her Fridayappointment 30 mins before appt. Late session 05/16/09. Adalgisa has called her and left messages to return her call but she doesn't call back. They have a strick attendance agreement. FYI - you can close the encounter when finished. ONSCRIPT DEVELOPER documented in this encounter Plan of Treatment Not on filedocumented as of this encounter Visit Diagnoses Not on filedocumented in this encounter Care Teams Arts And Crafts Teacher Relationship Specialty Start Date End Date Melvin Palacios MD PCP - General 06/22/99 09/20/10 [address] [place] [address] Esmer Roland, PCP - General Family Practice 09/21/10 01/29/17 Yony Garcia, PCP - General Physician Beam Machine Operator - 01/30/17 07/23/18 PA-C Medical Yony Garcia, PCP - Assigned PCP 09/01/16 08/11/18 PA-C [address] [place] [address] Erik Rivas PCP - General Family Practice 07/24/[address] [address] Yony Garcia, Assigned PCP 09/01/16 [place] [address] [address] [place]IDE[place], [place] [address] documented as of this encounter
--- OUTSIDE RECORDS SUMMARY | 2022-04-11 21:49 | XMS_ITS | Encounter Summary ---
:1975 Author Organization [place] Address [address] [place] [address] Care Team Providers Name Role Phone Melvin [...] Routine 04/13/2008 6:07 AM Results for this TUGBOAT DISPATCHER procedure are i n the results section. CBC WITH PLATELETS & STAT 04/13/2008 6:02 AM R esults for this DIFFERENTIAL TUGBOAT DISPATCHER procedure are i n the results section. ROUTINE UA WITH STAT 04/13/2008 6:02 AM Result s for this MICROSCOPIC TUGBOAT DISPATCHER procedure are i n the results section. BASIC METABOLIC PANEL STAT 04/13/2008 6:02 AM Results for this TUGBOAT DISPATCHER procedure are i n the results section. documented in this encounter Results Urine culture (04/13/2008 6:07 AM TUGBOAT DISPATCHER) [facility] Method Time Signature Specimen Midstream Urine MISYS Description Culture Micro <10,000 MISYS colonies/mL Escherichia coli Comment: Faxed to [phone] on 04/15/08 H M Micro Report Status FINAL 04/15/2008 MIS YS Specimen Anatomical Collection Method Collection Time Receive d Time (Source) Location / / Volume Laterality 04/13/2008 6:07 AM 8 7:08 TUGBOAT DISPATCHER AM TUGBOAT DISPATCHER Organism Antibiotic Method Susceptibility <10,000 colonies/ml Ampicillin [...] CBC with platelets differential (04/13/2008 6:02 AM TUGBOAT DISPATCHER) [facility] Method Time Signature MCV 89 78 - [...] Volume Laterality 04/13/2008 6:02 AM 8 6:10 TUGBOAT DISPATCHER AM TUGBOAT DISPATCHER Donal Marie MD LAB - BLOOD ORDERABLES Performing Organization Address City/State/ZIP Code Phon e Number MISYS Basic metabolic panel (04/13/2008 6:02 AM TUGBOAT DISPATCHER) P athologist Signature Sodium 141 133 - [...] Volume Laterality 04/13/2008 6:02 AM 8 6:10 TUGBOAT DISPATCHER AM TUGBOAT DISPATCHER Donal Marie MD LAB - BLOOD ORDERABLES Performing Organization Address City/State/ZIP Code Phon e Number MISYS (ABNORMAL) Routine UA with microscopic (04/13/2008 6:02 AM TUGBOAT DISPATCHER) [facility] Method Time Signature Source Midstream MISYS Urine Color Urine Yellow MISYS Appearance Urine Clear MISYS Glucose Urine Negative NEG mg/dL MISYS Bilirubin Urine Negative NEG MISYS Ketones Urine 40 (A) NEG mg/dL MISYS Specific [place] 1.026 1.003 - MISYS Urine 1.035 Blood [...] Volume Laterality 04/13/2008 6:02 AM 8 6:10 TUGBOAT DISPATCHER AM TUGBOAT DISPATCHER Donal H Frank BANERJEE LAB - URINE ORDERABLES Performing Organization Address City/[facility] Phon e Number MISYS documented in this encounter Visit Diagnoses Not on filedocumented in this encounter Care Teams Dental Equipment Mechanic Relationship Specialty Start Date End Date Melvin Palacios MD PCP - General 06/22/99 09/20/10 [address] [id number] documented as of this encounter
--- OUTSIDE RECORDS SUMMARY | 2022-04-11 21:49 | XMS_ITS | Encounter Summary ---
:1975 Author Organization [place] Address [address] [place] [address] Care Team Providers Name Role Phone Melvin [...] as of this encounter Progress Notes Interface, Metal Welder - 08/26/2010 2:04 PM CDT Patient Status - Diagnosis/Procedure Nausea/Vomitting and Flank Pain - Physical status Stable (s/s of potential complications absent or manageable) Discharge Planning - Discharge From: [facility] - Patient Care Unit: [facility] 66 - U - Discharge To: Home/Alternative home - Phone number after [phone] discharge: - Method of discharge: Wheel Chair [...] Dr Gamez call: - [facility] [phone] patient should call: Follow Up Care - [...] on filedocumented in this encounter Care Teams Product Development Consultant Relationship Specialty Start Date End Date Melvin Palacios MD PCP - General 06/22/99 09/20/10 [address] [id number] documented as of this encounter
--- OUTSIDE RECORDS SUMMARY | 2022-04-11 21:49 | XMS_ITS | Encounter Summary ---
:1975 Author Organization [facility] Address [address] [place] [address] Care Team Providers Name Role Phone Melvin Palacios MD Primary Care Provider Reason for Visit Reason Onset Date Comments Refill Request 04/25/2008 Encounter Details Date Type Department Care Team Description 04/25/2008 Refill [facility] Gurmeet Jimenez th, Refill Request [place] [id number] [facility], [facility] OCTOBER [facility] [address] [place] [address] SON[place] YEH [phone] (Wo rk) Social History [...] vagina documented in this encounter Care Teams Rayon Tester Relationship Specialty Start Date End Date Melvin Palacios MD PCP - General 06/22/99 09/20/10 [address] [address] documented as of this encounter
--- OUTSIDE RECORDS SUMMARY | 2022-04-11 21:49 | XMS_ITS | Encounter Summary ---
:1975 Author Organization [facility] Address [address] [place] [address] Care Team Providers Name Role Phone Melvin Palacios MD Primary Care Provider Encounter Details Date Type Department Care Team Description 09/27/2008 Orders Only [facility] Dys uria (Primary Dx) [place] Laborator y [facility] [address] [place] [address] Social History Tobacco Use [...] (ABNORMAL) MICRO EXAM-URINE (09/27/2008 3:52 PM CDT) [facility] Method Time Signature WBC Urine 5-10 (A) 0 - 2 [place] /[facility] RBC Urine 10-25 (A) 0 - 2 [place] /HPF [facility] Squamous EPI Few FEW /LPF [facility] Bacteria Moderate (A) NEG /HPF [place] Urine [facility] Specimen Anatomical Collection Method Collection Time Receive d Time (Source) Location / / Volume Laterality 09/27/2008 3:52 PM 9 3:54 CDT PM CDT Aleksandra Jimenez PA-C LABORATORY Performing Organization Address City/State/ZIP Code Phon e Number [facility] [address] [place] [address] [facility] URINE CULTURE (09/27/2008 3:52 PM CDT) Component Value Ref Test Analysis Performed At [facility] gist Range Method Time Signature Specimen Midstream Urine [place] Description [facility] Culture Micro <10,000 colonies/mL Escherichia coli [place]CLE [place]OALS Sent report to [place] on 10.01.08 [facility] Report status FINAL [place] 09/29/2008 [facility] Specimen Anatomical Collection Method Collection Time Receive d Time (Source) Location / / Volume Laterality 09/27/2008 3:52 PM 9 3:55 CDT PM CDT Organism Antibiotic Method Susceptibility <10,000 colonies/ml Amoxicillin/Clav 16 Intermed iate escherichia coli (kirsten) <10,000 colonies/ml Ampicillin >=32 Resista nt escherichia coli (kirsten) <10,000 colonies/ml Cefazolin <=4 Suscepti ble escherichia coli (kisrten) <10,000 colonies/ml Cefoxitin <=4 Suscepti ble escherichia coli (kirsten) <10,000 colonies/ml Ceftriaxone <=1 Suscepti ble escherichia coli (kirsten) <10,000 colonies/ml Cefuroxime Axetil 4 Suscepti ble escherichia coli (kirsten) <10,000 colonies/ml Cefuroxime Sodium 4 Suscepti ble escherichia coli (kirsten) <10,000 colonies/ml Ciprofloxacin >=4 Resistan t escherichia coli (kirsetn) <10,000 colonies/ml Gentamicin <=1 Suscepti ble escherichia coli (kirsten) <10,000 colonies/ml Levofloxacin >=8 Resistan t escherichia coli (kirsten) <10,000 colonies/ml Nitrofurantoin <=16 Suscept ible escherichia coli (kirsten) <10,000 colonies/ml Ticarcillin >=128 Resist ant escherichia coli (kirsten) <10,000 colonies/ml Tobramycin <=1 Suscepti ble escherichia coli (kirsten) <10,000 colonies/ml Trimethoprim/Sulfamethoxazole <=1/19 Susceptible escherichia coli (kirsten) <10,000 colonies/ml Ampicillin/Sulbactam Interme diate escherichia coli (kirsten) <10,000 colonies/ml Cefotaxime (meningitis) Susc eptible escherichia coli (kirsten) Aleksandra Jimenez PA-C LABORATORY Performing Organization Address City/State/ZIP Code Phon e Number [facility] [address] [place] [address] [facility] (ABNORMAL) UA MICRO IF POSITIVE (09/27/2008 3:52 PM CDT) [facility] Method Time Signature Color Urine Yellow [facility] Appearance Urine Clear [facility] Glucose Urine Negative NEG mg/dL [facility] Bilirubin Urine Negative NEG [facility] Ketones Urine Negative NEG mg/dL [facility] Specific [place] 1.025 1.003 - [place] Urine 1.035 [facility] Blood Urine Moderate (A) NEG [facility] pH Urine 7.0 5.0 - 7.0 [place] pH [facility] Protein Albumin Negative NEG mg/dL [facility] Urobilinogen 1.0 0.2 - 1.0 [place] Urine EU/dL [facility] Nitrite Urine Negative NEG [facility] Leukocyte Small (A) NEG [place] Esterase Urine [facility] Source Midstream [facility] Specimen Anatomical Collection Method Collection Time Receive d Time (Source) Location / / Volume Laterality 09/27/2008 3:52 PM 9 3:54 CDT PM CDT Aleksandra Jimenez PA-C LABORATORY Performing Organization Address City/State/ZIP Code Phon e Number [place] [address] [facility] documented in this encounter Visit Diagnoses Diagnosis Dysuria - Primary documented in this encounter Care Teams Patient Safety Tech Relationship Specialty Start Date End Date Melvin Palacios MD PCP - General 06/22/99 09/20/10 [address] [id number] documented as of this encounter
--- OUTSIDE RECORDS SUMMARY | 2022-04-11 21:49 | XMS_ITS | Encounter Summary ---
:1975 Author Organization [facility] Address [address] [place] [address]. [place] [address] Care Team Providers Name Role Phone Melvin Palacios MD Primary Care Provider Reason for Visit Reason Comments Medication Request Depression Encounter Details Date Type Department Care Team Description 05/19/2008 Office Visit [facility] DEPRESSYobani VE DISORDER NEC; Clinic [place] ANXIETY STATE NOS; [address] [facility] [address] [facility] [place] [address] [phone] Social History Tobacco Use Types Packs/Day Years Used Date Smoking Tobacco: Former Alcohol Use Standard Drinks/Week Comments Yes 0 (1 standard drink = 0.6 oz pure alcoho l) social Sex Assigned at Date Recorded Not on file documented as of this encounter Last Filed Vital Signs Vital Sign Reading Time Taken Comments Blood Pressure 110/66 05/19/2008 3:45 PM SYSTEM SUPPORT DEVELOPER Pulse 64 05/19/2008 3:45 PM SYSTEM SUPPORT DEVELOPER Temperature - - Respiratory Rate - - Oxygen Saturation - - Inhaled Oxygen Concentration - - Weight 80.3 kg (177 lb) 05/19/2008 3:45 PM SYSTEM SUPPORT DEVELOPER Height - - Body Mass Index 28.14 [...] 50 MG OR TABS As per above. EM SUPPORT DEVELOPER documented in this encounter Nursing Notes 05/19/2008 3:45 PM CST >> NIURKA ARANA [facility] May 19, 2008 3:51 PM Patient presents with: Medication Request Depression Initial BP 110/66 Pulse 64 Wt 177 lb (80.287 kg) Estimated Body mass index is 28.14 kg/(m^2) as calculated from: Height of 5' 6.5 (1.689 m) as of 01/26/08 Weight of 177 lb (80.287 kg) as of this encounter. BP completed using cuff size everton-romelia Arana CMA documented in this encounter Plan of Treatment Not on filedocumented as of this encounter Visit Diagnoses Diagnosis DEPRESSIVE DISORDER NEC Depressive disorder, not elsewhere class ified ANXIETY STATE NOS Anxiety state, unspecified Insomnia Insomnia, unspecified documented in this encounter Care Teams Stretch Press Operator Relationship Specialty Start Date End Date Melvin Palacios MD PCP - General 06/22/99 09/20/10 [address] [id number] documented as of this encounter
--- OUTSIDE RECORDS SUMMARY | 2022-04-11 21:49 | XMS_ITS | Encounter Summary ---
:1975 Author Organization [place] Address [address] [place] [address] Care Team Providers Name Role Phone Melvin Palacios MD Primary Care Provider Encounter Details Date Type Department Care Team Description 08/02/2008 Telephone [facility] Gurmeet Jimenez, [place] [address] [facility] [place], [facility] OCTOBER [facility] [address] [place] [address] [place] [address] (Wo rk) Social History Tobacco Use [...] sent to pharm for probable sinus infection T INTERPRETER Telephone Encounter - Aleksandra Jimenez - 08/02/2008 8:[address] INTERPRETER Staff Message copied by ALEKSANDRA JIMENEZ on FriAug 02, 2008 8:59 AM ------ Message from: DARIANA VALDEZ Created: Fri Aug 02, 2008 7:59 AM Regarding: antibiotic [place] I was wondering if you wouldn't mind sending a antibiotic RX to [facility]. My glands are still swollen and painful. I have been taking sudafed and Robitusin DM. My sinuses still are stuffy. Does the color of the mucus that is brought up from coughing make any difference? Thecolor is green (yuk)! At night the cough has become worse when laying down. Let me know what you think. Dariana T INTERPRETER documented in this encounter Plan of Treatment Not on filedocumented as of this encounter Visit Diagnoses Diagnosis Acute maxillary sinusitis - Primary documented in this encounter Care Teams Enamel Buffer Relationship Specialty Start Date End Date Melvin Palacios MD PCP - General 06/22/99 09/20/10 [address] [id number] documented as of this encounter
--- OUTSIDE RECORDS SUMMARY | 2022-04-11 21:49 | XMS_ITS | Encounter Summary ---
:1975 Author Organization [place] Address [address] [place] [address] Care Team Providers Name Role Phone Melvin Palacios MD Primary Care Provider Encounter Details Date Type Department Care Team Description 06/28/2008 Office Visit [facility] Barbara, UTI (Urina ry Tract [facility] [place] Infection) (Primary Dx) [facility] [address] [place], [place] [address] Social History Tobacco Use Types [...] worsen or fail to improve as anticipated. ICAL CONSULTANT documented in this encounter Plan of Treatment Not on filedocumented as of this encounter Procedures Procedure Name Priority Date/Time Associated Diagnosis Comme nts HCL CULTURE, URINE Routine 06/28/2008 9:52 AM UTI (Urinary Tra ct Results for this SURGICAL CONSULTANT Infection) procedure are i n the results section. HCL UA MICRO IF Routine 06/28/2008 9:43 AM UTI (Urinary Tract Results for this POSITIVE SURGICAL CONSULTANT Infection) procedure are i n the results section. CL AFF MICRO Routine 06/28/2008 9:43 AM UTI (Urinary Tract Res ults for this EXAM-URINE SURGICAL CONSULTANT Infection) procedure are i n the results section. documented in this encounter Results URINE CULTURE (06/28/2008 9:52 AM SURGICAL CONSULTANT) [facility] Method Time Signature Specimen Midstream [place] Description Urine [facility] Culture Micro No growth [facility] Report status FINAL [place] 06/30/2008 [facility] Specimen Anatomical Collection Method Collection Time Receive d Time (Source) Location / / Volume Laterality 06/28/2008 9:52 AM 9 9:54 SURGICAL CONSULTANT AM SURGICAL CONSULTANT Aleksandra Jimenez PA-C LABORATORY Performing Organization Address City/State/ZIP Code Phon e Number M [facility] [address] [place] [address] HOSPITAL [facility] (ABNORMAL) MICRO EXAM-URINE (06/28/2008 9:43 AM SURGICAL CONSULTANT) [facility] Method Time Signature WBC Urine 50-100 (A) 0 - 2 [place] /HPF [facility] RBC Urine >100 (A) 0 - 2 [place] /HPF [facility] Squamous EPI Few FEW /LPF [facility] Bacteria Urine Few (A) NEG /HPF [facility] Mucous Urine Present (A) NEG /LPF [facility] Specimen Anatomical Collection Method Collection Time Receive d Time (Source) Location / / Volume Laterality 06/28/2008 9:43 AM 9 9:45 SURGICAL CONSULTANT AM SURGICAL CONSULTANT Aleksandra Jimenez PA-C LABORATORY Performing Organization Address City/[facility] Code Phon e Number [facility] [place] [place] [address] [facility] (ABNORMAL) UA MICRO IF POSITIVE (06/28/2008 9:43 AM SURGICAL CONSULTANT) [facility] Method Time Signature Color Urine Yellow [facility] Appearance Urine Cloudy [facility] Glucose Urine Negative NEG mg/dL [facility] Bilirubin Urine Negative NEG [facility] Ketones Urine Negative NEG mg/dL [facility] Specific [place] 1.025 1.003 - [place] Urine 1.035 [facility] Blood Urine Large (A) NEG [facility] pH Urine 5.0 5.0 - 7.0 [place] pH [facility] Protein Albumin Trace (A) NEG mg/dL [facility] Urobilinogen 0.2 0.2 - 1.0 [place] Urine EU/dL [facility] Nitrite Urine Negative NEG [facility] Leukocyte Moderate (A) NEG [place] Esterase Urine [facility] Source Midstream [facility] Specimen Anatomical Collection Method Collection Time Receive d Time (Source) Location / / Volume Laterality 06/28/2008 9:43 AM 9 9:45 SURGICAL CONSULTANT AM SURGICAL CONSULTANT Aleksandra Jimenez PA-C LABORATORY Performing Organization Address City/[facility] Code Phon e Number [facility] [place] [address] [facility] documented in this encounter Visit Diagnoses Diagnosis UTI (urinary tract infection) - Primary Urinary tract infection, site not specif ied documented in this encounter Care Teams Risk Analyst Relationship Specialty Start Date End Date Melvin Palacios MD PCP - General 06/22/99 09/20/10 [address] [address] documented as of this encounter
--- OUTSIDE RECORDS SUMMARY | 2022-04-11 21:49 | XMS_ITS | Encounter Summary ---
:1975 Author Organization [place] Address [address] [place] [address] Care Team Providers Name Role Phone Melvin Palacios MD Primary Care Provider Reason for Visit Reason Comments IUD Encounter Details Date Type Department Care Team Description 11/18/[address] [facility] Harris Jung Inserti on of IUD [facility] (Primary Dx) [place] [address] [address] [facility] [address] [facility] [address] [place] [address] [phone] Social History Tobacco Use Types Packs/Day Years [...] 2008 4:43 PM Mirena IUD insertion, lot# [id number], exp 03/2011 >> MAGDA SANDOVAL FriNov 18, [...] device documented in this encounter Care Teams Precision Layout Worker Relationship Specialty Start Date End Date Melvin Palacios MD PCP - General 06/22/99 09/20/10 [address] [address] documented as of this encounter
--- OUTSIDE RECORDS SUMMARY | 2022-04-11 21:49 | XMS_ITS | Encounter Summary ---
:1975 Author Organization [place] Address [address] [place] [address] Care Team Providers Name Role Phone Melvin Palacios MD Primary Care Provider Reason for Visit Reason Comments Puppet Master Exam would like to discuss b/c. Encounter Details Date Type Department Care Team Description 11/07/2008 Office Visit [facility] Cayetano Jung, Routine Gynecological Women[facility] Clinic MD Examination (Primary Dx) [place] [address] [address] [facility] [address] [facility] [address] [place] [address] [phone] Social History Tobacco Use Types Packs/Day Years [...] 07, 2008 3:46 PM .Patient presents with: Puppet Master Exam - would like to discuss b/c. [...] [facility] Range Method Time Signature PAP NIL COPATH Copath Report COPATH Patient Name: DARIANA VALDEZ MR#: [id number] Specimen #: [id number] Collected: 11/07/2008 Received: 11/08/2008 Reported: 11/09/2008 09:45 [...] LAVON Tong (ASCP) Processed and screened at [facility] CLINICAL HISTORY: LMP: 10/24/08 TESTING LAB LOCATION: [facility] [address] [place], [place] COLLECTION SITE: Client: ??[facility] Location: [place] (R) Specimen (Source) Anatomical Collection Method Collection Time Re ceived Time Location / / Volume Laterality 11/07/2008 11/08/2008 9:55 AM CDT Cayetano Jung MD LABORATORY Performing Organization Address City/State/ZIP Code Phon e Number [place] documented in this encounter Visit Diagnoses Diagnosis Routine gynecological examination - Prim harpal documented in this encounter Care Teams Labor Mediator Relationship Specialty Start Date End Date Melvin Palacios MD PCP - General 06/22/99 09/20/10 [address] [place] [address] documented as of this encounter
--- OUTSIDE RECORDS SUMMARY | 2022-04-11 21:49 | XMS_ITS | Encounter Summary ---
:1975 Author Organization [place] Address [address] [place] [address] Care Team Providers Name Role Phone Melvin Palacios MD Primary Care Provider Reason for Visit Reason Comments Headache Encounter Details Date Type Department Care Team Description 07/18/2008 Office Visit [facility] Barbara, [facility] [place] (Primary Dx) [facility] [address] [place], [place] [phone] Social History Tobacco Use Types Packs/Day Years Used Date Smoking Tobacco: Former Alcohol Use Standard Drinks/Week Comments Yes 0 (1 standard drink = 0.6 oz pure alcoho l) social Sex Assigned at Date Recorded Not on file documented as of this encounter Last Filed Vital Signs Vital Sign Reading Time Taken Comments Blood Pressure 90/60 07/18/2008 3:30 PM HYDROGRAPHIC ENGINEER Pulse 70 07/18/2008 3:30 PM HYDROGRAPHIC ENGINEER Temperature - - Respiratory Rate - - [...] home, follow up tomorrow if symptoms persist OGRAPHIC ENGINEER documented in this encounter Nursing Notes 07/18/2008 3:30 PM CST >> MELISSA JANSEN Mon Jul 18, 2008 1:13 PM Injections given per EH. See mednotes for details. Melissa Robersonill, [facility] >> LIBRADO STEVENSON [facility] Jul 18, 2008 11:24 AM Darianasa Verito [...] migrainosus documented in this encounter Care Teams Judicial Reporter Relationship Specialty Start Date End Date Melvin Palacios MD PCP - General 06/22/99 09/20/10 [address] [id number] documented as of this encounter
--- OUTSIDE RECORDS SUMMARY | 2022-04-11 21:49 | XMS_ITS | Encounter Summary ---
:1975 Author Organization [place] Address [address] [place] [address] Care Team Providers Name Role Phone Melvin Palacios MD Primary Care Provider Reason for Referral Referral not Required - Closed Specialty Diagnoses / Procedures Referred By Contact Refer red To Contact Diagnoses Other specified viral warts Kenneth Cannon DPM [facility] [address] [place], [place] [phone] Phone: [phone] Fax: Referral ID Status Reason Start Date Expiration Date Visits Requ ested Visits Authorized [id number] Closed 09/28/2008 06/08/2011 1 1 Reason for Visit Reason Comments Musculoskeletal Problem right heel- possible plantar wart. She states she had the wart treated and now has olamide n and what looks like a callus. Encounter Details Date Type Department Care Team Description 09/20/2008 Office Visit [facility] Kenneth Cannon Other Specified Viral Clinic Carmen Dietrich DPM Warts (Primary Dx) [address] [facility] [address] [place] [address] [address] [phone] [address] [place], [place] [address] Social History Tobacco Use Types [...] Primary documented in this encounter Care Teams Investigation Division Captain Relationship Specialty Start Date End Date Melvin Palacios MD PCP - General 06/22/99 09/20/10 [address] [address] documented as of this encounter
--- OUTSIDE RECORDS SUMMARY | 2022-04-11 21:49 | XMS_ITS | Encounter Summary ---
:1975 Author Organization [place] Address [address] [place] [address] Care Team Providers Name Role Phone Melvin Palacios MD Primary Care Provider Reason for Visit Reason Onset Date Comments Refill Request 12/13/2008 [id number] Encounter Details Date Type Department Care Team Description 12/12/2008 MyC Refill [facility] ZENON [place] ([id number]/PSOaab) [address] [place] [address] [phone] Social History Tobacco Use Types Packs/Day Years [...] - 12/13/2008 9:37 AM CDT Message from [employer]: Dariana Osman would like a refill of the following medications: CELEXA 40 MG OR TABS [Tobi Barber PA-C] Preferred pharmacy: [facility] Comment: documented in this encounter Plan of Treatment Not on filedocumented as of this encounter Visit Diagnoses Diagnosis DEPRESSIVE DISORDER NEC Depressive disorder, not elsewhere class ified ANXIETY STATE NOS Anxiety state, unspecified documented in this encounter Care Teams Biofuels Plant Operations Engineer Relationship Specialty Start Date End Date Melvin Palacios MD PCP - General 06/22/99 09/20/10 [address] [address] documented as of this encounter
--- OUTSIDE RECORDS SUMMARY | 2022-04-11 21:49 | XMS_ITS | Encounter Summary ---
:1975 Author Organization [place] Address [address] [place] [address] Care Team Providers Name Role Phone Melvin Palacios MD Primary Care Provider Reason for Visit Reason Comments Pharyngitis Urgent Care Encounter Details Date Type Department Care Team Description 10/05/2008 Office Visit [place] [facility]e Funez Sor e Throat (Viral) Care Z[place] (Primary Dx) [address] [facility] [address] [address] [place] [address] (Wo rk) Social History [...] sx persist or worsen See orders in [facility]. documented in this encounter Nursing Notes 10/05/2008 [...] Value Ref Test Analysis Performed At [facility] gist Range Method Time Signature Specimen Throat [facility] LAB Culture Micro No Beta IDALOU Streptococcus [facility] isolated LAB Report status FINAL 10/07/2008 [facility] Specimen Anatomical Collection Method Collection Time Receive d Time (Source) Location / / Volume Laterality 10/05/2008 7:36 PM 9 7:41 CDT PM CDT Stefanie Rojas MD LABORATORY Performing Organization Address City/State/ZIP Code Phon e Number [facility] [address] [place] [address] [facility] STREP GROUP A ANTIGEN (RAPID) (10/05/2008 7:36 PM CDT) Component Value Ref Test Analysis Performed At [facility] [employer] Range Method Time Signature Specimen Throat [facility] LAB Rapid Strep A NEGATIVE: No Group A strepto coccal antigen detected by immunoassay, await IDALOU Screen culture report. [facility] LAB Report status FINAL 10/05/2008 [facility] Specimen Anatomical Collection Method Collection Time Receive d Time (Source) Location / / Volume Laterality 10/05/2008 7:36 PM 9 7:41 CDT PM CDT Stefanie Rojas MD LABORATORY Performing Organization Address City/State/ZIP Code Phon e Number [facility] [address] [facility] [place] [address] [facility] documented in this encounter Visit Diagnoses Diagnosis Sore throat (viral) - Primary Acute pharyngitis documented in this encounter Care Teams Field Software Engineer Relationship Specialty Start Date End Date Melvin Palacios MD PCP - General 06/22/99 09/20/10 [address] [address] documented as of this encounter
--- OUTSIDE RECORDS SUMMARY | 2022-04-11 21:49 | XMS_ITS | Encounter Summary ---
:1975 Author Organization [place] Address [address] [place] [address]. [place] [address] Care Team Providers Name Role Phone Melvin Palacios MD Primary Care Provider Encounter Details Date Type Department Care Team Description 11/04/2008 Office Visit [facility] Melvin Palacios MD Panic Attack (Primary Clinic [place] [address] [place]) [address] [place], [place] [address] [phone] Social History Tobacco Use Types Packs/Day Years [...] agoraphobia documented in this encounter Care Teams Director Financial Services Relationship Specialty Start Date End Date Melvin Palacios MD PCP - General 06/22/99 09/20/10 [address] [address] documented as of this encounter
--- OUTSIDE RECORDS SUMMARY | 2022-04-11 21:49 | XMS_ITS | Encounter Summary ---
:1975 Author Organization [place] Address [address] [place] [address] Care Team Providers Name Role Phone Melvin [...] as of this encounter Progress Notes Interface, Supply Chain Procurement Manager - 08/26/2010 2:09 PM CDT Allergies ?? IVP Dye;Hives f0?? Codeine;Other pard par Basic Medication Information - History taken from:: Patient Medications (#1-10) - Medication: Tramadol - Medication: Compazine - Medication: Tylenol ES RIC Hill (RN)[Signed 05:45] Authored: Allergies, Basic Medication Information, Medications (#1-10) Interface, Supply Chain Procurement Manager - 08/26/2010 2:08 PM CDT General Information - How to be addressed Dariana - Temporary living None required arrangements - Source of reliable Patient information - Arrived from Emergency department - salesperson fashion accessories to Jose lees: - Phone 1: [phone] - Patient's Spoken Language, Central African communication style Advance Directive - Do you [...] Considerations - Developmental None Learning Considerations - Scientologist Learning None Considerations Activity-Exercise/Self Care - Ambulation [...] not wish to have anyone contacted pastoral care/clergy/finance advisor notified? Mutuality/Individual Preferences - What information [...] on filedocumented in this encounter Care Teams Police Guard Relationship Specialty Start Date End Date Melvin Palacios MD PCP - General 06/22/99 09/20/10 [address] [place] [phone] documented as of this encounter
--- OUTSIDE RECORDS SUMMARY | 2022-04-11 21:50 | XMS_ITS | Encounter Summary ---
:1975 Author Organization [place] Address [address] [facility] [place] [address] Care Team Providers Name Role Phone Melvin Palacios MD Primary Care Provider Encounter Details Date Type Department Care Team Description 04/08/2008 Operative Report [facility] William Black, (Appraiser) [facility] Results [facility] [address] [id number] [place] [id number] (Wo rk) Social History Tobacco Use Types Packs/Day Years Used Date Smoking Tobacco: Former Alcohol Use Standard Drinks/Week Comments Yes 0 (1 standard drink = 0.6 oz pure alcoho l) social Sex Assigned at Date Recorded Not on file documented as of this encounter Progress Notes William Black - 04/23/2008 8:20 AM AIRCRAFT SKIN BURNISHER FINAL PREOPERATIVE DIAGNOSIS: Left ureteral stone. POSTOPERATIVE [...] then the retrograde performed and a 6 Serbian x 24 cm double-Jureteral stent was passed over the remaining guidewire and verified to be in position by fluoroscopyand direct vision. The bladder was emptied and the procedure was complete. Electronically signed on 04/23/2008 08:20 by WILLIAM BLACK MD MT: nikita Name: DARIANA VALDEZ Account: [id number] : 1975 Procedure Date: 04/08/2008 Document: [id number] RAFT SKIN BURNISHER documented in this encounter Plan of Treatment Not on filedocumented as of this encounter Visit Diagnoses Not on filedocumented in this encounter Care Teams Vice President Of Human Resources Relationship Specialty Start Date End Date Melvin Palacios MD PCP - General 06/22/99 09/20/10 [address] [address] documented as of this encounter
--- OUTSIDE RECORDS SUMMARY | 2022-04-11 21:50 | XMS_ITS | Encounter Summary ---
:1975 Author Organization [place] Address [address] [place] [address] Care Team Providers Name Role Phone Melvin Palacios MD Primary Care Provider Reason for Visit Reason Onset Date Comments Nurse Advice Line 03/02/2008 celexa Encounter Details Date Type Department Care Team Description 03/02/2008 [facility]acios MD Nurse Advice Line [facility] [address] (celexa) [address] [facility] [place] [address] [phone] (Wo rk) Social History Tobacco Use Types [...] - 03/02/2008 2:13 PM CDT Message from [employer]: Original authorizing provider: Tobi Barber PA-Csa Vishal [...] unspecified documented in this encounter Care Teams Student Development Advisor Relationship Specialty Start Date End Date Melvin Palacios MD PCP - General 06/22/99 09/20/10 [address] [phone] documented as of this encounter
--- OUTSIDE RECORDS SUMMARY | 2022-04-11 21:50 | XMS_ITS | Encounter Summary ---
:1975 Author Organization [place] Address [address] [place] [address] Care Team Providers Name Role Phone Melvin Palacios MD Primary Care Provider Reason for Visit Reason Comments Imm/Inj Injection. Melissa Nuñez [facility] Encounter Details Date Type Department Care Team Description 07/27/2007 [facility]/Nurse [facility] Imm /Inj (Injection. Visit Clinic [place] Melissa Nuñez [facility]) [facility], [address] [place] [address] Social History Tobacco Use Types [...] Headache documented in this encounter Care Teams Plumber Relationship Specialty Start Date End Date Melvin Palacios MD PCP - General 06/22/99 09/20/10 [address] [phone] documented as of this encounter
--- OUTSIDE RECORDS SUMMARY | 2022-04-11 21:50 | XMS_ITS | Encounter Summary ---
:1975 Author Organization [place] Address [address] [place] [address] Care Team Providers Name Role Phone Melvin Palacios MD Primary Care Provider Reason for Visit Reason Comments Depression FU on Lexapro dosage Anxiety Encounter Details Date Type Department Care Team Description 01/26/2008 Office Visit [facility] Tobi [place] DEPRESSYobani VE DISORDER NEC; [facility] [place]ENON [place] [address] [facility] [address] [place] [address] [phone] Social History Tobacco Use Types Packs/Day Years [...] BP completed using cuff size large Melissa Ricks/RESISTOR TESTING MACHINE OPERATOR documented in this encounter Plan of Treatment Not on filedocumented as of this encounter Visit Diagnoses Diagnosis DEPRESSIVE DISORDER NEC Depressive disorder, not elsewhere class ified ANXIETY STATE NOS Anxiety state, unspecified documented in this encounter Care Teams Photo Mask Processor Relationship Specialty Start Date End Date Melvin Palacios MD PCP - General 06/22/99 09/20/10 [address] [phone] documented as of this encounter
--- OUTSIDE RECORDS SUMMARY | 2022-04-11 21:50 | XMS_ITS | Encounter Summary ---
:1975 Author Organization [place] Address [address] [place] [address] Care Team Providers Name Role Phone Melvin aPlacios MD Primary Care Provider Encounter Details Date [...] as of this encounter Progress Notes Interface, Media Reporter - 08/26/2010 2:27 PM CDT Allergies ?? [...] on filedocumented in this encounter Care Teams Frog Farmer Relationship Specialty Start Date End Date Melvin Palacios MD PCP - General 06/22/99 09/20/10 [address] [place] [address] documented as of this encounter
--- OUTSIDE RECORDS SUMMARY | 2022-04-11 21:50 | XMS_ITS | Encounter Summary ---
:1975 Author Organization [place] Address [address] [place] [address] Care Team Providers Name Role Phone Melvin Palacios MD Primary Care Provider Reason for Referral - Closed Specialty Diagnoses / Procedures Referred By Contact Refer red To Contact Diagnoses Depressive disorder, not elsewhere classified Anxiety state, unspecified Tobi West PA-C [address] [place], [place] [address] Referral ID Status Reason Start Date Expiration Date Visits Requ ested Visits Authorized [id number] Closed 09/24/2007 06/08/2011 1 1 Reason for Visit Reason Comments Medication Request pt is over stressed with samuel colon problems- would like to discuss med upgrade or additional me d Depression Encounter Details Date Type Department Care Team Description 09/24/2007 Office Visit [facility] Tobi West VE DISORDER NEC; [facility] [place] ZENON [place] ANXIETY STATE NOS; [address] [facility] [address] [facility] ABDOMIN[place] [address] [phone] Social History Tobacco Use Types Packs/Day Years [...] this encounter Progress Notes Tobi Beltran - 10/01/2007 5:19 AM CDT Dariana [...] PLATELETS, TSH W/FREE T4 REFLEX, CONSULT PSYCHIATRY ([facility]) Increased to Lexapro 30mg daily. F/u in 2-3 weeks for recheck. Potential adverse SE related to medication adjustment are discussed in detail. F/u STAT if any increased anxiety/depression or if any other unusual mood changes occur following medication start. Pt agrees to make apts to f/u with psychiatry and with counselor. 300.00 ANXIETY STATE NOS Plan: CONSULT PSYCHIATRY ([facility]) As per above. 789.06 ABDOMINAL PAIN EPIGASTRIC [...] Ref Test Analysis Performed At [facility] gist Range Method Time Signature Specimen Whole Blood [facility] Description [facility] Heliobacter No detectable IgG antibody t o Helicobacter pylori. If current infection is JACOBSON pylori Antibody suspected, please submit a new specimen in 4 to [address] [facility] LAB Report status FINAL 09/24/2007 [facility] Specimen Anatomical Collection Method Collection Time Receive d Time (Source) Location / / Volume Laterality 09/24/2007 12:05 09/24/2007 PM CDT 12:08 PM CDT Tobi West PA-C LABORATORY Performing Organization Address City/[facility]/ZIP Code Phon e Number [facility] [address] [place] [address] [facility] TSH W/FREE T4 REFLEX (09/24/2007 12:04 PM CDT) athologist Signature TSH 1.24 0.4 - 5.0 [facility] mU/L [facility] Specimen Anatomical Collection Method Collection Time Receive d Time (Source) Location / / Volume Laterality 09/24/2007 12:04 09/24/2007 PM CDT 12:08 PM CDT Tobi West PA-C LABORATORY Performing Organization Address City/[facility]/ZIP Code Phon e Number [facility] [address] [place] [address] [facility] CBC WITH PLATELETS (09/24/2007 12:04 PM CDT) P athologist Signature WBC 5.8 4.0 - 11.0 [facility] 10[facility]9/L [facility] RBC Count 4.42 3.8 - 5.2 [facility] 10e12/L [facility] Hemoglobin 13.1 11.7 - [facility] 15.7 g/dL [facility] Hematocrit 39.8 35.0 - [place] 47.0 % [facility] MCV 90 78 - 100 [facility] fl [facility] MCH 29.6 26.5 - [place]ON CEDAR 33.0 pg [facility] MCHC 32.9 31.5 - [place] 36.5 g/dL [facility] RDW 12.9 10.0 - [place] 15.0 % [facility] Platelet Count 287 150 - 450 [facility] 10e9/L [facility] Specimen Anatomical Collection Method Collection Time Receive d Time (Source) Location / / Volume Laterality 09/24/2007 12:04 09/24/2007 PM CDT 12:08 PM CDT Tobi West PA-C LABORATORY Performing Organization Address City/State/RUST Code Phon e Number [facility] [address] [place] [address] [facility] documented in this encounter Visit Diagnoses Diagnosis Depressive disorder, not elsewhere class ified Anxiety state, unspecified Abdominal pain, epigastric documented in this encounter Care Teams De Icer Finisher Relationship Specialty Start Date End Date Melvin Palacios MD PCP - General 06/22/99 09/20/10 [address] [address] [address] documented as of this encounter
--- OUTSIDE RECORDS SUMMARY | 2022-04-11 21:50 | XMS_ITS | Encounter Summary ---
:1975 Author Organization [place] Address [address] [place] [address] Care Team Providers Name Role Phone Melvin Palacios MD Primary Care Provider Encounter Details Date Type Department Care Team Description 04/13/2008 Emergency room [facility] Se zoran Marie MD [facility] EMERGENCY PHY CHRISTOPHER PA Results [address] [place] [place] [address] (Wo rk) Social History Tobacco Use Types Packs/Day Years Used Date Smoking Tobacco: Former Alcohol Use Standard Drinks/Week Comments Yes 0 (1 standard drink = 0.6 oz pure alcoho l) social Sex Assigned at Date Recorded Not on file documented as of this encounter Progress Notes Deandre Marie - 04/16/2008 7:26 AM DEVELOPER PROGRAMMER ANALYST FINAL CHIEF COMPLAINT: Left flank pain. [...] SANDRO[address][id number] Name: DARIANA VALDEZ MRN: [id number] Account: [id number] : 1975 Visit Date: 04/13/2008 Document: [id number] cc: William Gamez MD [facility] LOPER PROGRAMMER ANALYST documented in this encounter Plan of Treatment Not on filedocumented as of this encounter Visit Diagnoses Not on filedocumented in this encounter Care Teams Mixed Livestock Farmer Relationship Specialty Start Date End Date Melvin Palacios MD PCP - General 06/22/99 09/20/10 [address] [address] documented as of this encounter
--- OUTSIDE RECORDS SUMMARY | 2022-04-11 21:50 | XMS_ITS | Encounter Summary ---
:1975 Author Organization [place] Address [facility] [place] [address] Care Team Providers Name Role Phone Melvin Palacios MD Primary Care Provider Reason for Referral Referral not Required - Closed Specialty Diagnoses / Procedures Referred By Contact Refer red To Contact Diagnoses Gross hematuria Aleksandra Jimenez PA-C [facility] [address] [place] [address] [address] [facility] [address] [place] [address] [address] [place] [address] Phone: [phone] Fax: Referral ID Status Reason Start Date Expiration Date Visits Requ ested Visits Authorized [id number] Closed 03/17/2008 06/08/2011 1 1 Reason for Visit Reason Comments Urinary Problem Encounter Details Date Type Department Care Team Description [facility] [place] Yeast Infection of the Vagina [facility] [address] [place], [place] [address] [phone] Social History Tobacco Use Types Packs/Day Years [...] 03/17/2008 11:15 AM CDT >> LIBRADO STEVENSON [facility] Mar 17, 2008 11:46 AM Dariana Osman [...] (ABNORMAL) MICRO EXAM-URINE (03/17/2008 8:49 AM CDT) [employer] Method Time Signature WBC Urine O - 2 0 - 2 [place] /[facility] RBC Urine >100 (A) 0 - 2 [place] /[facility] Squamous EPI Few FEW /LPF [facility] Bacteria Moderate (A) NEG /HPF [place] Urine [facility] Yeast Urine Few (A) NEG /HPF [facility] Mucous Urine Present (A) NEG /LPF [facility] Specimen Anatomical Collection Method Collection Time Receive d Time (Source) Location / / Volume Laterality 03/17/2008 8:49 AM 8 8:51 CDT AM CDT Aleksandra Jimenez PA-C LABORATORY Performing Organization Address City/[facility]/ZIP Code Phon e Number [facility] [id number] [place] [address] [phone] [facility] CULTURE, URINE (MISYS) (03/17/2008 8:49 AM CDT) [employer] Method [place] Signature Specimen Midstream [place] Description Urine [facility] Culture Micro No growth [facility] Report status FINAL [place] 03/19/2008 [facility] Specimen Anatomical Collection Method Collection Time Receive d Time (Source) Location / / Volume Laterality 03/17/2008 8:49 AM 8 8:51 CDT AM CDT Authorizing Provider Result Ester Jimenez PA-C LABORATORY Performing Organization Address City/State/ZIP Code Phon e Number [facility] [address] [address] HOSP[address] [facility] (ABNORMAL) UA MICRO IF POSITIVE (03/17/2008 8:49 AM CDT) [employer] Method Time Signature Color Urine Red [facility] Appearance Urine Cloudy [facility] Glucose Urine Negative NEG mg/dL [facility] Bilirubin Urine Negative NEG [facility] Ketones Urine Negative NEG mg/dL [facility] Specific [place] 1.025 1.003 - [place] Urine 1.035 [facility] Blood Urine Large (A) NEG [facility] pH Urine 5.5 5.0 - 7.0 [place] pH [facility] Protein Albumin >=300 (A) NEG mg/dL [place] Urine [facility] Urobilinogen 0.2 0.2 - 1.0 [place] Urine EU/dL [facility] Nitrite Urine Negative NEG [facility] Leukocyte Negative NEG [place] Esterase Urine [facility] Source Midstream [place] Urine [facility] Specimen Anatomical Collection Method Collection Time Receive d Time (Source) Location / / Volume Laterality 03/17/2008 8:49 AM 8 8:51 CDT AM CDT Aleksandra Jimenez PA-C LABORATORY Performing Organization Address City/State/ZIP Code Phon e Number [facility] [id number] [place] [phone] [facility] documented in this encounter Visit Diagnoses Diagnosis Gross hematuria - Primary Yeast infection of the vagina Candidiasis of vulva and vagina documented in this encounter Care Teams General Expeditor Relationship Specialty Start Date End Date Melvin Palacios MD PCP - General 06/22/99 09/20/10 [address] [address] documented as of this encounter
--- OUTSIDE RECORDS SUMMARY | 2022-04-11 21:50 | XMS_ITS | Encounter Summary ---
:1975 Author Organization [place] Address [address] [place] [address] Care Team Providers Name Role Phone Melvin Palacios MD Primary Care Provider Encounter Details Date Type Department Care Team Description 04/06/2008 Results Only [facility] [place] Results Emergency Physic ians PA [address] [place], [place] [address] (Wo rk) Social History [...] on filedocumented in this encounter Care Teams Credit Balance Specialist Relationship Specialty Start Date End Date Melvin Palacios MD PCP - General 06/22/99 09/20/10 [address] [address] documented as of this encounter
--- OUTSIDE RECORDS SUMMARY | 2022-04-11 21:50 | XMS_ITS | Encounter Summary ---
:1975 Author Organization [place] Address [address] [place] [address] Care Team Providers Name Role Phone Melvin Palacios MD Primary Care Provider Encounter Details Date Type Department Care Team Description 07/27/2007 Orders Only [facility] Barbara, MIGRAINE N OS W/O MENTN [facility] [place] INTRACTABLE (Primary [facility] IC Dx) [address] [place] [address] [place] [phone] Social History Tobacco Use Types Packs/Day Years Used Date Smoking Tobacco: Former Alcohol Use Standard Drinks/Week Comments Yes 0 (1 standard drink = 0.6 oz pure alcoho l) social Sex Assigned at Date Recorded Not on file documented as of this encounter Progress Notes Aleksandra Jimeenz - 07/27/2007 11:32 AM CST Dariana with migraine started this morning. Will give imitrex shot now GER QUALITY COMPLIANCE documented in this encounter Plan of Treatment Not on filedocumented as of this encounter Visit Diagnoses Diagnosis Migraine, unspecified, without mention o f intractable migraine without mention of status migrainosus - Primary documented in this encounter Care Teams General Maintenance Engineer Relationship Specialty Start Date End Date Melvin Palacios MD PCP - General 06/22/99 09/20/10 [address] [address] documented as of this encounter
--- OUTSIDE RECORDS SUMMARY | 2022-04-11 21:50 | XMS_ITS | Encounter Summary ---
:1975 Author Organization [place] Address [address] [place] [address]. [place] [address] Care Team Providers Name Role Phone Melvin Palacios MD Primary Care Provider Encounter Details Date Type Department Care Team Description 08/11/2007 Telephone [facility] Tobi West[phone] [place] [address] (Wo rk) Social History Tobacco Use Types Packs/Day Years Used Date Smoking Tobacco: Former Alcohol Use Standard Drinks/Week Comments Yes 0 (1 standard drink = 0.6 oz pure alcoho l) social Sex Assigned at Date Recorded Not on file documented as of this encounter Miscellaneous Notes Telephone Encounter - Librado Yip - 08/11/2007 1:54 PM CST Pt requesting sign up for [employer] Entertainment[employer]ART, form filled out and sent to abstracting. ONAL PRODUCTION MANAGER documented in this encounter Plan of Treatment Not on filedocumented as of this encounter Visit Diagnoses Not on filedocumented in this encounter Care Teams Diet Clerk Relationship Specialty Start Date End Date Melvin Palacios MD PCP - General 06/22/99 09/20/10 [address] [place] [address] documented as of this encounter
--- OUTSIDE RECORDS SUMMARY | 2022-04-11 21:50 | XMS_ITS | Encounter Summary ---
:1975 Author Organization [place] Address [address] [facility] [place] [address] Care Team Providers Name Role Phone Melvin Palacios MD Primary Care Provider Encounter Details Date Type Department Care Team Description 04/06/[address] [facility] Delta Coello [facility] MD Negro Results Emergency Physic ians NICK [address] [place], [place] [address] (Wo rk) Social History Tobacco Use Types Packs/Day Years Used Date Smoking Tobacco: Former Alcohol Use Standard Drinks/Week Comments Yes 0 (1 standard drink = 0.6 oz pure alcoho l) social Sex Assigned at Date Recorded Not on file documented as of this encounter Progress Notes Delta Coello - 05/02/2008 5:30 AM FIBER TECHNOLOGIST FINAL CHIEF COMPLAINT: Abdominal pain. HISTORY OF [...] a strainer to collect the stone, taking myie-zrb-dzyvvxu ibuprofen 800 mg p.o. t.i.d. Flomax p.r.n. [...] MT: CATERINA Name: JUAN CARLOS VALDEZ Account: [id number] : 1975 Visit Date: 04/06/2008 Document: [id number] cc: Primary Care Physician R TECHNOLOGIST documented in this encounter Plan of Treatment Not on filedocumented as of this encounter Visit Diagnoses Not on filedocumented in this encounter Care Teams Sports Marketing Specialist Relationship Specialty Start Date End Date Melvin Palacios MD PCP - General 06/22/99 09/20/10 [address] [address] documented as of this encounter
--- OUTSIDE RECORDS SUMMARY | 2022-04-11 21:50 | XMS_ITS | Encounter Summary ---
:1975 Author Organization [place] Address [address] [place] [address] Care Team Providers Name Role Phone Melvin Palacios MD Primary Care Provider Esmer Roland MD Primary Care Provider [phone] Yony Garcia PA-C Primary Care Provider [phone] Yony Garcia PA-C Unavailable [phone] Erik Riavs Primary Care Provider Yony Garcia PA-C Unavailable [phone] Reason for Visit Reason Onset Date Comments Refill Request 02/16/2008 [place] Encounter Details Date Type Department Care Team Description 02/16/2008 MyC Refill [facility] Melvin Palacios MD Refill Request Clinic [place] [address] [place] [address] ([place]) [address] [place] [address] [place] [address] [phone] (Wo rk) Social History Tobacco Use Types [...] - 02/16/2008 11:01 AM CDT Message from iJento: Original authorizing provider: Tobi Barber PA-C Dariana Osman would like a refill of the following medications: LUNESTA 3 MG OR TABS [Tobi Barber PA-C] Preferred pharmacy: [facility] Comment: I have been using my [...] unspecified documented in this encounter Care Teams Folding Machine Operator Relationship Specialty Start Date End Date Melvin Palacios MD PCP - General 06/22/99 09/20/10 [address] [place] [address] Esmer Roland, PCP - General Family Practice 09/21/10 01/29/17 Yony Garcia, PCP - General Physician Fur Trimming Machine Operator - 01/30/17 07/23/18 PA-C Medical Yony Garcia, PCP - Assigned PCP 09/01/16 08/11/18 PA-C 277[address] [place] [address] Erik Rivas PCP - General Family Practice 07/24/[address] [address] Yony Garcia, Assigned PCP 09/01/16 PA-C [address] [place] [phone] documented as of this encounter
--- OUTSIDE RECORDS SUMMARY | 2022-04-11 21:50 | XMS_ITS | Encounter Summary ---
:1975 Author Organization [place] Address [address] [place] [address] Care Team Providers Name Role Phone Melvin Palacios MD Primary Care Provider Encounter Details Date Type Department Care Team Description 04/06/2008 Historic Results INTERFACED REPORT Vijaya Bhat MD Emergency Physic ians PA [address] [place], [place] [address] (Wo rk) Social History [...] Canceled, Test credited 60 - 99 mg/dL [place] [facility] Comment: Unsatisfactory specimen - hemolyzed BRODIE [...] Canceled, Test credited 6 - 17 mmol/L [place] [facility] Comment: Unsatisfactory specimen - hemolyzed BRODIE [...] Ketones Urine Negative NEG [place] mg/dL Specific [place] 1.014 1.003 - MISYS Urine 1.035 Blood [...] MISYS Urine culture (04/06/2008 7:00 PM CDT) [facility] Method Time Signature Specimen Unspecified MISYS [...] on filedocumented in this encounter Care Teams Briar Shop Supervisor Relationship Specialty Start Date End Date Melvin Palacios MD PCP - General 06/22/99 09/20/10 [address] [address] documented as of this encounter
--- OUTSIDE RECORDS SUMMARY | 2022-04-11 21:50 | XMS_ITS | Encounter Summary ---
:1975 Author Organization [place] Address [address] [place] [address] Care Team Providers Name Role Phone Melvin Palacios MD Primary Care Provider Reason for Visit Reason Comments Urinary Problem Encounter Details Date Type Department Care Team Description 03/10/2008 Office Visit [facility] Barbara, UTI (Urina ry Tract Infection) (Primary Dx); Clinic [place] Hematuria [facility] IC [address] [place], [place] [phone] Social History Tobacco Use Types Packs/Day Years [...] (ABNORMAL) MICRO EXAM-URINE (03/10/2008 8:10 AM CDT) [facility] Method Time Signature WBC Urine >100 (A) 0 - 2 [place] /HPF [facility] RBC Urine >100 (A) 0 - 2 [place] /HPF [facility] Squamous EPI Few FEW /LPF [facility] Bacteria Urine Many (A) NEG /HPF [facility] Mucous Urine Present (A) NEG /LPF [facility] Specimen Anatomical Collection Method Collection Time Receive d Time (Source) Location / / Volume Laterality 03/10/2008 8:10 AM 8 8:12 CDT AM CDT Aleksandra Jimenez PA-C LABORATORY Performing Organization Address City/State/[place] [address] [facility] CULTURE, URINE (MISYS) (03/10/2008 8:10 AM CDT) Component Value Ref Test Analysis Performed At [facility] Range Method Time Signature Specimen Midstream Urine [facility] Culture Micro 50 to 100,000 [place] colonies/mL [facility] coli Report status FINAL [place] 03/12/2008 [facility] Specimen Anatomical Collection Method Collection Time Receive d Time (Source) Location / / Volume Laterality 03/10/2008 8:10 AM 8 8:12 CDT AM CDT Organism Antibiotic Method Susceptibility 50 to 100,000 colonies/ml Amoxicillin/Clav 16 In termediate escherichia coli (kirsten) 50 to 100,000 colonies/ml Ampicillin >=32 R esistant escherichia coli (kirsten) 50 to 100,000 colonies/ml Cefazolin <=4 [place] [...] Address City/State/ZIP Code Phon e Number [facility] [address] [place] [address] HOSPITAL [facility] (ABNORMAL) UA MICRO IF POSITIVE (03/10/2008 8:10 AM CDT) [facility] Method Time Signature Color Urine Red [facility] Appearance Urine Cloudy [facility] Glucose Urine Negative NEG mg/dL [facility] Bilirubin Urine Negative NEG [facility] Ketones Urine Trace (A) NEG mg/dL [facility] Specific [place] 1.025 1.003 - [place] Urine 1.035 [facility] Blood Urine Large (A) NEG [facility] pH Urine 5.5 5.0 - 7.0 [place] pH [facility] Protein Albumin 100 (A) NEG mg/dL [place] Urine [facility] Urobilinogen 0.2 0.2 - 1.0 [place] Urine EU/dL [facility] Nitrite Urine Positive (A) NEG [facility] Leukocyte Small (A) NEG [place] Esterase Urine [facility] Source Midstream [place] Urine [facility] Specimen Anatomical Collection Method Collection Time Receive d Time (Source) Location / / Volume Laterality 03/10/2008 8:10 AM 8:12 CDT AM CDT Aleksandra Jimenez PA-C LABORATORY Performing Organization Address City/State/ZIP Code Phon e Number [place] [address] [facility] documented in this encounter Visit Diagnoses Diagnosis UTI (urinary tract infection) - Primary Urinary tract infection, site not specif ied Hematuria Hematuria, unspecified documented in this encounter Care Teams Middle School Librarian Relationship Specialty Start Date End Date Melvin Palacios MD PCP - General 06/22/99 09/20/10 [address] [address] documented as of this encounter
--- OUTSIDE RECORDS SUMMARY | 2022-04-11 21:50 | XMS_ITS | Encounter Summary ---
:1975 Author Organization [place] Address [address] [place] [address] Care Team Providers Name Role Phone Melvin Palacios MD Primary Care Provider Encounter Details Date Type Department Care Team Description 04/13/2008 Admission [facility]P [facility] William Black, (Case Loader Operator) [facility] Results [facility] [address] PHI[address] [place] [address] (Wo rk) Social History Tobacco Use Types Packs/Day Years Used Date Smoking Tobacco: Former Alcohol Use Standard Drinks/Week Comments Yes 0 (1 standard drink = 0.6 oz pure alcoho l) social Sex Assigned at Date Recorded Not on file documented as of this encounter Progress Notes William Black - 04/23/2008 8:21 AM PRODUCT DEVELOPMENT COORDINATOR FINAL Dariana Valdez is a 32-year-old female [...] PA-C MT: alise Name: DARIANA VALDEZ Account: [id number] : 1975 Admitted: [id number] Document: [id number] UCT DEVELOPMENT COORDINATOR documented in this encounter Plan of Treatment Not on filedocumented as of this encounter Visit Diagnoses Not on filedocumented in this encounter Care Teams Compliance Officer Relationship Specialty Start Date End Date Melvin Palacios MD PCP - General 06/22/99 09/20/10 [address] [address] [address] documented as of this encounter
--- OUTSIDE RECORDS SUMMARY | 2022-04-11 21:50 | XMS_ITS | Encounter Summary ---
:1975 Author Organization [place] Address [address] [place] [address] Care Team Providers Name Role Phone Melvin [...] as of this encounter Progress Notes Interface, Internet E Commerce Specialist - 08/26/2010 2:19 PM CDT Other Discharge [...] on filedocumented in this encounter Care Teams Assembler Lay Ups Relationship Specialty Start Date End Date Melvin Palacios MD PCP - General 06/22/99 09/20/10 [address] [id number] documented as of this encounter
--- OUTSIDE RECORDS SUMMARY | 2022-04-11 21:50 | XMS_ITS | Encounter Summary ---
:1975 Author Organization [place] Address [facility] [place] [address] Care Team Providers Name Role Phone Melvin Palacios MD Primary Care Provider Reason for Visit Reason Onset Date Comments UTI 04/06/2008 Encounter Details Date Type Department Care Team Description 04/06/2008 Telephone [facility] Tobi West, MEREDITH Osseo NICK-C [address] [facility], [address] 50 [facility] 100 [place] [address] [place] [address] [phone] Social History Tobacco Use Types Packs/Day Years [...] BID x 7 days Martin Hauser MD [facility] Telephone Encounter - Melissa Leal - 04/06/2008 [...] ied documented in this encounter Care Teams Branch Employment Coordinator Relationship Specialty Start Date End Date Melvin Palacios MD PCP - General 06/22/99 09/20/10 [address] [id number] documented as of this encounter
--- OUTSIDE RECORDS SUMMARY | 2022-04-11 21:50 | XMS_ITS | Encounter Summary ---
:1975 Author Organization [place] Address [address] [place] [address] Care Team Providers Name Role Phone Melvin Palacios MD Primary Care Provider Reason for Visit Reason Onset Date Comments Refill Request 01/05/2008 XANAX Encounter Details Date Type Department Care Team Description 01/05/2008 Refill [facility] Zena Palacios MD Refill Request (XANAX) [address] [place] [address] [phone] Social History Tobacco Use Types Packs/Day Years [...] FILL DATE: 10/28/07 QTY: 30 Camilo Hammonds [facility] documented in this encounter Plan of Treatment Not on filedocumented as of this encounter Visit Diagnoses Diagnosis Anxiety state, unspecified documented in this encounter Care Teams Sofa Inspector Relationship Specialty Start Date End Date Melvin Palacios MD PCP - General 06/22/99 09/20/10 [address] [id number] documented as of this encounter
--- OUTSIDE RECORDS SUMMARY | 2022-04-11 21:50 | XMS_ITS | Encounter Summary ---
:1975 Author Organization [place] Address [address] [place] [address] Care Team Providers Name Role Phone Melvin [...] as of this encounter Progress Notes Interface, Obstetrics Gynecology Md - 08/26/2010 2:20 PM CDT General Information - How to be addressed Dariana - stock handler floorperson to Jose Osman () notify: - Phone 1: [phone] - Patient's Spoken Language, Tajik communication style Advance Directive - Do you [...] filedocumented in this encounter Care Teams Director Search Relationship Specialty Start Date End Date Melvin Palacios MD PCP - General 06/22/99 09/20/10 [address] [id number] documented as of this encounter
--- OUTSIDE RECORDS SUMMARY | 2022-04-11 21:50 | XMS_ITS | Encounter Summary ---
:1975 Author Organization [place] Address [address] [place] [address]. [place] [address] Care Team Providers Name Role Phone Melvin Palacios MD Primary Care Provider Encounter Details Date Type Department Care Team Description 03/17/2008 Telephone [facility] Tobi West[address] [phone] [place] [address] (Wo rk) Social History Tobacco [...] on filedocumented in this encounter Care Teams Psychotherapist Counselor Relationship Specialty Start Date End Date Melvin Palacios MD PCP - General 06/22/99 09/20/10 [address] [id number] documented as of this encounter
--- OUTSIDE RECORDS SUMMARY | 2022-04-11 21:50 | XMS_ITS | Encounter Summary ---
:1975 Author Organization [place] Address [address] [place] [address] Care Team Providers Name Role Phone Melvin Palacios MD Primary Care Provider Reason for Visit Reason Comments Cough x 4 wks- also would like to have xanax refilled Encounter Details Date Type Department Care Team Description 06/03/2007 Office Visit [facility] Melvin Palacios MD ANXIETY STATE NOS; Clinic [address] ACUTE BRONCHITIS; [address] [place] [address] ACUTE BRONCHOSPASM [facility] [place] [address] [phone] (Wo rk) Social History Tobacco Use Types Packs/Day Years Used Date Smoking Tobacco: Former Alcohol Use Standard Drinks/Week Comments Yes 0 (1 standard drink = 0.6 oz pure alcoho l) social Sex Assigned at Date Recorded Not on file documented as of this encounter Last Filed Vital Signs Vital Sign Reading Time Taken Comments Blood Pressure 102/72 06/03/2007 10:00 AM ORACLE SOFTWARE ENGINEER Pulse - - Temperature 37 ??C (98.6 ??F) 06/03/2007 10:00 AM ORACLE SOFTWARE ENGINEER Respiratory Rate - - Oxygen Saturation - - Inhaled Oxygen Concentration - - Weight 78 kg (172 lb) 06/03/2007 10:00 AM ORACLE SOFTWARE ENGINEER Height 167.6 cm (5' 6) 06/03/2007 10:00 AM ORACLE SOFTWARE ENGINEER Body Mass Index 27.76 06/03/2007 10:00 AM ORACLE SOFTWARE ENGINEER documented in this encounter Progress Notes Melvin [...] worsen or fail to improve as anticipated. LE SOFTWARE ENGINEER documented in this encounter Nursing Notes 06/03/2007 [...] bronchospasm documented in this encounter Care Teams Director Of Land Acquisition Relationship Specialty Start Date End Date Melvin Palacios MD PCP - General 06/22/99 09/20/10 [address] [id number] documented as of this encounter
--- OUTSIDE RECORDS SUMMARY | 2022-04-11 21:50 | XMS_ITS | Encounter Summary ---
:1975 Author Organization [place] Address [address] [place] [address] Care Team Providers Name Role Phone Melvin Palacios MD Primary Care Provider Reason for Visit Reason Onset Date Comments Referral 01/01/2008 pt requesting her re ferral faxed to her Encounter Details Date Type Department Care Team Description 01/01/2008 Telephone [facility] Melvin Palacios MD Referral (pt requesting Clinic [place] [address] her referral faxed to [address] [place] [address]) [place] [address] [phone] (Wo rk) Social History Tobacco Use Types [...] her referral for faxed to her at [phone]--referral faxed Felicia Mcintyre/GUY documented in this encounter Plan of Treatment Not on filedocumented as of this encounter Visit Diagnoses Not on filedocumented in this encounter Care Teams Faculty I On Call Medical Assistant Relationship Specialty Start Date End Date Melvin Palacios MD PCP - General 06/22/99 09/20/10 [address] [id number] documented as of this encounter
--- OUTSIDE RECORDS SUMMARY | 2022-04-11 21:50 | XMS_ITS | Encounter Summary ---
:1975 Author Organization [place] Address [address] [place] [address]. [place] [address] Care Team Providers Name Role Phone Melvin Palacios MD Primary Care Provider Reason for Visit Reason Comments Depression FU on Depression meds - hasn 't noticed a lot of change. Seems to be a little bit more relaxed. Encounter Details Date Type Department Care Team Description 10/15/2007 Office Visit [facility] Tobi West DEPRESSYobani VE DISORDER NEC; Clinic [place] ZENON Maddox GENERALIZED ANXIETY DIS [address] [place] [phone] Social History Tobacco Use Types Packs/Day Years [...] disorder documented in this encounter Care Teams Laborer Pipelines Relationship Specialty Start Date End Date Melvin Palacios MD PCP - General 06/22/99 09/20/10 [address] [id number] documented as of this encounter
--- OUTSIDE RECORDS SUMMARY | 2022-04-11 21:50 | XMS_ITS | Encounter Summary ---
:1975 Author Organization [place] Address [address] [place] [address]. [place] [address] Care Team Providers Name Role Phone Melvin Palacios MD Primary Care Provider Encounter Details Date Type Department Care Team Description 11/09/[address] [facility] Gurmeet Jimenez , [place] ZENON [address] [facility], [facility] [address] [place] [address] [place] [address] (Wo rk) Social History Tobacco Use [...] unspecified documented in this encounter Care Teams Sweat Box Attendant Relationship Specialty Start Date End Date Melvin Palacios MD PCP - General 06/22/99 09/20/10 [address] [address] documented as of this encounter
--- OUTSIDE RECORDS SUMMARY | 2022-04-11 21:50 | XMS_ITS | Encounter Summary ---
:1975 Author Organization [place] Address [address] [place] [address] Care Team Providers Name Role Phone Melvin Palacios MD Primary Care Provider Reason for Visit Reason Onset Date Comments Formulary Issue 02/17/2008 LUNESTA 3MG Encounter Details Date Type Department Care Team Description 02/17/2008 Telephone [facility] Melvin Palacios MD Formulary Issue Clinic [place] [address] (LUNESTA 3MG) [address] [place] [phone] (Wo rk) Social History Tobacco Use Types [...] Awaiting Approval and/or Denial Note. Sonny Bowman APPLICATION PROCESSOR Telephone Encounter - Laine Lemus - 02/18/2008 3:25 PM CDT PA faxed to [facility] Lemus CMA Telephone Encounter - Kristine Bermudez - 02/17/2008 1:03 PM CDT PA NEEDED ON: LUNESTA 3MG INS IS: [facility] (HOSPITAL RECEIVING CLERK) PHONE # IS: ID# IS: [id number] PLEASE LET US KNOW WHEN PA IS EITHER GRANTED OR DENIED. THANK YOU. KRISTINE BERMUDEZ F[facility] CR RX documented in this encounter Plan of Treatment Not on filedocumented as of this encounter Visit Diagnoses Diagnosis Depressive disorder, not elsewhere class ified Insomnia Insomnia, unspecified documented in this encounter Care Teams Principal Examiner Relationship Specialty Start Date End Date Melvin Palacios MD PCP - General 06/22/99 09/20/10 [address] [address] documented as of this encounter
--- OUTSIDE RECORDS SUMMARY | 2022-04-11 21:50 | XMS_ITS | Encounter Summary ---
:1975 Author Organization [place] Address [address] [place] [address] Care Team Providers Name Role Phone Melvin Palacios MD Primary Care Provider Reason for Visit Reason Comments Derm Problem Encounter Details Date Type Department Care Team Description 01/19/2008 Office Visit [facility] Thomas Jimenezister of Foot without Clinic [place] PA-C Infection (Primary Dx) [facility] [address] [place], [place] [phone] Social History Tobacco Use Types Packs/Day [...] OR TABS Oral 1 TABLET AT BEDTIME [id number] EXP 10/14 10 0 Allergies Allergen Reactions [...] infection documented in this encounter Care Teams Meat Processor Relationship Specialty Start Date End Date Melvin Palacios MD PCP - General 06/22/99 09/20/10 [address] [address] documented as of this encounter
--- OUTSIDE RECORDS SUMMARY | 2022-04-11 21:50 | XMS_ITS | Encounter Summary ---
:1975 Author Organization [place] Address [address] [place] [address] Care Team Providers Name Role Phone Melvin Palacios MD Primary Care Provider Encounter Details Date Type Department Care Team Description 03/17/2008 [facility] Tobi West NOT YET Clinic [place] ZENON Maddox DEFINED (Primary Dx) [address] [place] [address] [phone] Social History Tobacco Use Types Packs/Day Years Used Date Smoking Tobacco: Former Alcohol Use Standard Drinks/Week Comments Yes 0 (1 standard drink = 0.6 oz pure alcoho l) social Sex Assigned at Date Recorded Not on file documented as of this encounter Plan of Treatment Not on filedocumented as of this encounter Procedures Procedure Name Priority Date/Time Associated Diagnosis Comme [facility] X-RAY ABDOMEN AP VIEW (KUB) Routine 03/17/2008 DIAGNOSIS NOT YET DEFINED documented in this encounter Results X-RAY ABDOMEN 1 VW (03/17/2008) Anatomical Region Laterality Modality Other Narrative This result has an attachment that is no t available. Tobi [place] PA-C GENERAL IMAGING documented in this encounter Visit Diagnoses Diagnosis DIAGNOSIS NOT YET DEFINED - Primary documented in this encounter Care Teams Surgery Specialist Relationship Specialty Start Date End Date Melvin Palacios MD PCP - General 06/22/99 09/20/10 [address] [address] documented as of this encounter
--- OUTSIDE RECORDS SUMMARY | 2022-04-11 21:50 | XMS_ITS | Encounter Summary ---
:1975 Author Organization [place] Address [address] [place] [address]. [place] [address] Care Team Providers Name Role Phone Melvin Palacios MD Primary Care Provider Reason for Visit Reason Onset Date Comments Refill Request 10/08/2007 Encounter Details Date Type Department Care Team Description 10/08/2007 Refill [facility] Tobi West, Refill Request [address] [phone] [place] [address] (Wo rk) Social History Tobacco [...] disorder documented in this encounter Care Teams Cement Kiln Operator Relationship Specialty Start Date End Date Melvin Palacios MD PCP - General 06/22/99 09/20/10 [address] [address] documented as of this encounter
--- OUTSIDE RECORDS SUMMARY | 2022-04-11 21:50 | XMS_ITS | Encounter Summary ---
:1975 Author Organization [place] Address [address] [place] [address] Care Team Providers Name Role Phone Melvin Palacios MD Primary Care Provider Encounter Details Date Type Department Care Team Description 03/17/2008 Results Only [facility] Gurmeet Jimenez , Hospital Results PA-C [facility] [address] [place] [address] (Wo rk) Social History Tobacco [...] on filedocumented in this encounter Care Teams Staff Development Coordinator Rn Relationship Specialty Start Date End Date Melvin Palacios MD PCP - General 06/22/99 09/20/10 [address] [address] documented as of this encounter
--- OUTSIDE RECORDS SUMMARY | 2022-04-11 21:50 | XMS_ITS | Encounter Summary ---
:1975 Author Organization [place] Address [address] [place] [address] Care Team Providers Name Role Phone Melvin Palacios MD Primary Care Provider Encounter Details Date Type Department Care Team Description 11/16/2007 Telephone [facility] Gurmeet Jimenez, [place] ZENON [address] [facility], [facility] [address] [place] [address] [place] [address] (Wo rk) Social History Tobacco Use [...] Procedure Name Priority Date/Time Associated Diagnosis Comme [facility] MRI LUMBAR SPINE Routine 11/20/2007 5:25 PM [...] unspecified documented in this encounter Care Teams Sky Line Yarder Relationship Specialty Start Date End Date Melvin Palacios MD PCP - General 06/22/99 09/20/10 [address] [address] documented as of this encounter
--- OUTSIDE RECORDS SUMMARY | 2022-04-11 21:50 | XMS_ITS | Encounter Summary ---
:1975 Author Organization [place] Address [address] [place] [address] Care Team Providers Name Role Phone Melvin Palacios MD Primary Care Provider Reason for Visit Reason Onset Date Comments Refill Request 09/10/2007 pt requesting sample s please Encounter Details Date Type Department Care Team Description 09/10/[address] [facility] Melvin Palacios MD Refill Request (pt Clinic [place] [address] requesting samples [address] [facility] please) [place] [phone] Social History Tobacco Use Types Packs/Day Years [...] tabs daily, can you please authorize,samples at [facility] Felicia Mcintyre/GUY documented in this encounter Plan of Treatment Not on filedocumented as of this encounter Visit Diagnoses Diagnosis Depressive disorder, not elsewhere class ified Generalized anxiety disorder documented in this encounter Care Teams Physical Therapist Assistant Relationship Specialty Start Date End Date Melvin Palacios MD PCP - General 06/22/99 09/20/10 [address] [address] documented as of this encounter
--- OUTSIDE RECORDS SUMMARY | 2022-04-11 21:51 | XMS_ITS | Encounter Summary ---
:1975 Author Organization [place] Address [address] [place] [address]. [place] [address] Care Team Providers Name Role Phone Melvin Palacios MD Primary Care Provider Reason for Visit Reason Comments Depression Encounter Details Date Type Department Care Team Description 10/18/2005 Office Visit [facility] Melvin Palacios MD DEPRESSIVE DISORDER NEC; Clinic [place] [address] [place] [address] GENERALIZED ANXIETY DIS; [address] [facility] ADJUSTMENT DISORDER WITH DEPRESSED MOOD [place], [place] [facility] [place] [address] [phone] Social History Tobacco Use Types Packs/Day Years [...] mood documented in this encounter Care Teams Fish Hatchery Man Relationship Specialty Start Date End Date Melvin Palacios MD PCP - General 06/22/99 09/20/10 [address] [address] documented as of this encounter
--- OUTSIDE RECORDS SUMMARY | 2022-04-11 21:51 | XMS_ITS | Encounter Summary ---
:1975 Author Organization [place] Address [address] [place] [address] Care Team Providers Name Role Phone Melvin Palacios MD Primary Care Provider Encounter Details Date Type Department Care Team Description 08/21/2006 Results Only [facility] Will Zacarias, Hospital [place] [address] Social History Tobacco Use Types Packs/Day Years Used Date Smoking Tobacco: Former Alcohol Use Standard Drinks/Week Comments Yes 0 (1 standard drink = 0.6 oz pure alcoho l) social Sex Assigned at Date Recorded Not on file documented as of this encounter Plan of Treatment Not on filedocumented as of this encounter Procedures Procedure Name Priority Date/Time Associated Diagnosis Comme [facility] ABDOMEN W/O Routine 08/21/2006 11:08 PM [...] report relayed to referring physician by radiologist litigation associate. Will Zacarias MD SPECIAL IMAGING STUDIES documented in this encounter Visit Diagnoses Not on filedocumented in this encounter Care Teams Factory Focus Technician Relationship Specialty Start Date End Date Melvin Palacios MD PCP - General 06/22/99 09/20/10 [address] [address] documented as of this encounter
--- OUTSIDE RECORDS SUMMARY | 2022-04-11 21:51 | XMS_ITS | Encounter Summary ---
:1975 Author Organization [place] Address [address] [place] [address] Care Team Providers Name Role Phone Melvin Palacios MD Primary Care Provider Reason for Visit Reason Comments RECHECK pt has questions about incre asing her meds dosage Encounter Details Date Type Department Care Team Description 01/15/2006 Office Visit [facility] Melvin Palacios MD ADJUSTMENT DISORDER WITH DEPRESSED MOOD; Clinic [address] GENERALIZED ANXIETY DIS; [address] [place] [address] DEPRESSIVE DISORDER [place], [place] SONJA KRUEGER [address] [phone] Social History Tobacco Use Types Packs/Day Years [...] size regular Brenda Cox MA >> JUANASUELLEN RENAELaw Rodgers 01/15/2006 3:14 pm Patient presents with: [...] ified documented in this encounter Care Teams Upholstery Covers Inspector Relationship Specialty Start Date End Date Melvin Palacios MD PCP - General 06/22/99 09/20/10 [address] [address] documented as of this encounter
--- OUTSIDE RECORDS SUMMARY | 2022-04-11 21:51 | XMS_ITS | Encounter Summary ---
:1975 Author Organization [place] Address [address] [place] [address] Care Team Providers Name Role Phone Melvin Palacios MD Primary Care Provider Encounter Details Date Type Department Care Team Description 08/21/2006 Historic Results INTERFACED REPORT Paul Zacarias MD [place] [address] Social History Tobacco Use Types Packs/Day Years [...] LAB - BLOOD ORDERABLES Performing Organization Address City/State/[facility] Phon e Number MISYS (ABNORMAL) Routine UA with microscopic (08/21/2006 9:58 PM CDT) Component Value Ref Test Analysis Performed At [facility] Range Method Time Signature Source Unspecified MISYS Urine Color Urine Straw MISYS Appearance Urine Clear MISYS Glucose Urine Negative NEG MISYS mg/dL Bilirubin Urine Negative NEG MISYS Ketones Urine Negative NEG MISYS mg/dL Specific [place] 1.001 (L) 1.003 - MISYS Urine 1.035 [...] LAB - URINE ORDERABLES Performing Organization Address City/[facility] Phon e Number MISYS documented in this encounter Visit Diagnoses Not on filedocumented in this encounter Care Teams Chief Of Anesthesiology Relationship Specialty Start Date End Date Melvin Palacios MD PCP - General 06/22/99 09/20/10 [address] [address] documented as of this encounter
--- OUTSIDE RECORDS SUMMARY | 2022-04-11 21:51 | XMS_ITS | Encounter Summary ---
:1975 Author Organization [place] Address [address] [place] [address] Care Team Providers Name Role Phone Melvin Palacios MD Primary Care Provider Reason for Referral Referral not Required - Closed Specialty Diagnoses / Procedures Referred By Contact Refer red To Contact Diagnoses Anxiety state, unspecified Backache, unspecified Melvin Palacios MD PAIN MANAGEMENT & [address] [place] [address] [facility] [address] SONJA SWIFT [phone] Phone: Referral ID Status Reason Start Date Expiration Date Visits Requ ested Visits Authorized [id number] Closed 03/18/2007 06/08/2011 1 1 Reason for Visit Reason Comments Anxiety usually in pm- pt feels lik e she's having anxiety attacks- also some back pain Encounter Details Date Type Department Care Team Description 03/18/2007 Office Visit [facility] Melvin Palacios MD ANXIETY STATE NOS (Primary Dx); Clinic [place] [address] BACKACHE NOS [address] [place], [place] [address] [phone] Social History Tobacco Use Types Packs/Day Years [...] mg starter pack given #42, lot # [id number] exp 11/15 42 0 ??? LUNESTA 3 MG OR TABS Oral 1 TABLET AT BEDTIME [id number] EXP 10/14 10 0 ROS: C: NEGATIVE [...] unspecified documented in this encounter Care Teams Chargemaster Specialist Relationship Specialty Start Date End Date Melvin Palacios MD PCP - General 06/22/99 09/20/10 [address] [address] documented as of this encounter
--- OUTSIDE RECORDS SUMMARY | 2022-04-11 21:51 | XMS_ITS | Encounter Summary ---
:1975 Author Organization [place] Address [address] [place] [address] Care Team Providers Name Role Phone Melvin Palacios MD Primary Care Provider Reason for Visit Reason Comments Recheck Medication prescription needed Encounter Details Date Type Department Care Team Description 08/01/2006 Office Visit [facility] Melvin Palacios MD DEPRESSIVE DISORDER NEC; [facility] [address] [place] [address] GENERALIZED ANXIETY DIS; [address] [place] [address] OTHER GENERAL SYMPTOMS [place], [place] [phone] [id number] Social History Tobacco Use Types Packs/Day Years Used Date Smoking Tobacco: Former Alcohol Use Standard Drinks/Week Comments Yes 0 (1 standard drink = 0.6 oz pure alcoho l) social Sex Assigned at Date Recorded Not on file documented as of this encounter Last Filed Vital Signs Vital Sign Reading Time Taken Comments Blood Pressure 106/62 08/01/2006 9:30 AM DIRECTOR OF STUDENT AFFAIRS Pulse - - Temperature - - Respiratory Rate - - Oxygen Saturation - - Inhaled Oxygen Concentration - - Weight 76.7 kg (169 lb) 08/01/2006 9:30 AM DIRECTOR OF STUDENT AFFAIRS Height 167.6 cm (5' 6) 08/01/2006 9:30 AM DIRECTOR OF STUDENT AFFAIRS Body Mass Index 27.28 08/01/2006 9:30 AM DIRECTOR OF STUDENT AFFAIRS documented in this encounter Progress Notes Melvin [...] 2- Cold intolerance. Labs per HS orders. CTOR OF STUDENT AFFAIRS documented in this encounter Nursing Notes 08/01/2006 [...] OTHER GENERAL Resu lts for this PLATELETS DIRECTOR OF STUDENT AFFAIRS SYMPTOMS procedure are i n the results section. HCL TSH W/FREE T4 Routine 08/01/2006 10:10 AM OTHER GENERAL Re sults for this REFLEX DIRECTOR OF STUDENT AFFAIRS SYMPTOMS procedure are i n the results section. documented in this encounter Results CBC WITH PLATELETS (08/01/2006 10:10 AM DIRECTOR OF STUDENT AFFAIRS) athologist Signature WBC 6.0 4.0 - 11.0 [place] 10e9/L [facility] RBC Count 4.47 3.8 - 5.2 [place] 10e12/L [facility] Hemoglobin 13.5 11.7 - [place] 15.7 g/dL [facility] Hematocrit 39.5 35.0 - [place] 47.0 % [facility] MCV 88 78 - 100 [place] fl [facility] MCH 30.2 26.5 - [place] 33.0 pg [facility] MCHC 34.2 32.0 - [place] 36.0 g/dL [facility] RDW 13.2 10.0 - [place] 15.0 % [facility] Platelet Count 236 150 - 450 [facility] Specimen Anatomical Collection Method Collection Time Receive d Time (Source) Location / / Volume Laterality 08/01/2006 10:10 08/01/2006 AM DIRECTOR OF STUDENT AFFAIRS 10:15 AM DIRECTOR OF STUDENT AFFAIRS Melvin Palacios MD LABORATORY Performing Organization Address City/State/ZIP Code Phon e Number [facility] [address] [place] [address] [facility] TSH W/FREE T4 REFLEX (08/01/2006 10:10 AM DIRECTOR OF STUDENT AFFAIRS) P athologist Signature TSH 1.50 0.4 - 5.0 [facility] mU/L [facility] Specimen Anatomical Collection Method Collection Time Receive d Time (Source) Location / / Volume Laterality 08/01/2006 10:10 08/01/2006 AM DIRECTOR OF STUDENT AFFAIRS 10:15 AM DIRECTOR OF STUDENT AFFAIRS Melvin Palacios MD LABORATORY Performing Organization Address City/State/ZIP Code Phon e Number [facility] [address] [place] [address] [facility] documented in this encounter Visit Diagnoses Diagnosis Depressive disorder, not elsewhere class ified Generalized anxiety disorder Other general symptoms(780.99) Other general symptoms documented in this encounter Care Teams Clinical Trials Nurse Relationship Specialty Start Date End Date Melvin Palacios MD PCP - General 06/22/99 09/20/10 [address] [id number] documented as of this encounter
--- OUTSIDE RECORDS SUMMARY | 2022-04-11 21:51 | XMS_ITS | Encounter Summary ---
:1975 Author Organization [place] Address [address] [place] [address] Care Team Providers Name Role Phone Melvin Palacios MD Primary Care Provider Encounter Details Date Type Department Care Team Description 04/01/[address] [facility] Abstract, Provider Asha falcon Addictions Counselor Assistant Labs [facility] [address] [place] [address] Social History Tobacco Use Types Packs/Day Years [...] Abstract LAB - HIM EXTERNAL RESULT TSH [21361.001] (04/01/2007) P athologist Signature TSH 2.56@ mcU/mL MISYS Provider Abstract LABORATORY Performing Organization Address [facility]/ZIP [facility] Phon e Number MISYS GLUCOSE [[id number]] (04/01/2007) P athologist Signature Glucose 77@ mg/dL MISYS Provider Abstract LABORATORY Performing Organization Address [facility] Phon e Number MISYS TRIGLYCERIDES [[id number]] (04/01/2007) P athologist Signature Triglycerides 113@ mg/dL MISYS Provider Abstract LABORATORY Performing Organization Address [facility] Phon e Number MISYS HDL CHOLESTEROL [[id number]] (04/01/2007) P athologist Signature HDL Cholesterol 46@ mg/dL MISYS Provider Abstract LABORATORY Performing Organization Address [facility] Phon e Number MISYS LDL-CHOLESTEROL [[id number]] (04/01/2007) P athologist Signature LDL Cholesterol 66@ mg/dL MISYS Calculated Provider Abstract LABORATORY Performing Organization Address [facility] Phon e Number MISYS CHOLESTEROL [[id number]] (04/01/2007) P athologist Signature Cholesterol 135@ 115 - 199 MISYS mg/dL Provider Abstract LABORATORY Performing Organization Address [facility] Phon e Number MISYS documented in this encounter Visit Diagnoses Diagnosis DIAGNOSIS NOT YET DEFINED - Primary documented in this encounter Care Teams Software Firmware Engineer Relationship Specialty Start Date End Date Melvin Palacios MD PCP - General 06/22/99 09/20/10 [address] [phone] documented as of this encounter
--- OUTSIDE RECORDS SUMMARY | 2022-04-11 21:51 | XMS_ITS | Encounter Summary ---
:1975 Author Organization [place] Address [address] [place] [address] Care Team Providers Name Role Phone Melvin Palacios MD Primary Care Provider Encounter Details Date Type Department Care Team Description 02/18/2006 Results Only [facility] Harris James MD Hospital Results [facility] [address] [place], [place] [address] (Wo rk) Social History [...] on filedocumented in this encounter Care Teams Digital Asset Manager Relationship Specialty Start Date End Date Melvin Palacios MD PCP - General 06/22/99 09/20/10 [address] [id number] documented as of this encounter
--- OUTSIDE RECORDS SUMMARY | 2022-04-11 21:51 | XMS_ITS | Encounter Summary ---
:1975 Author Organization [place] Address [address] [place] [address] Care Team Providers Name Role Phone Melvin Palacios MD Primary Care Provider Reason for Visit Reason Onset Date Comments Medication Request 03/25/2006 lexapro needed Encounter Details Date Type Department Care Team Description [facility]2006 [facility] [place] ZENON Maddox (lexapro needed) [address] [place] [address] [phone] Social History Tobacco Use Types Packs/Day Years [...] have bagged up samples for her to fern picker and left them with healthcare receptionist. Karol Avalos LPN Telephone Encounter - Hiwot Avalos - 03/25/2006 9:04 AM CDT Staff Message copied by HIWOT AVALOS on 03/25/2006 at 9:04 AM ------ Message from: LE TYSON Created: 03/25/2006 at 8:49 AM Regarding: marci Dariana would like more samples of lexapro or a rx sent to [facility] pharm she has enougt for today any questions pls call [phone] thanks documented in this encounter Plan of Treatment Not on filedocumented as of this encounter Visit Diagnoses Diagnosis Adjustment disorder with depressed mood Generalized anxiety disorder Depressive disorder, not elsewhere class ified documented in this encounter Care Teams Silk Screen Frame Assembler Relationship Specialty Start Date End Date Melvin Palacios MD PCP - General 06/22/99 09/20/10 [address] [id number] documented as of this encounter
--- OUTSIDE RECORDS SUMMARY | 2022-04-11 21:51 | XMS_ITS | Encounter Summary ---
:1975 Author Organization [place] Address [address] [facility] [place] [address] Care Team Providers Name Role Phone Melvin Palacios MD Primary Care Provider Encounter Details Date Type Department Care Team Description 08/21/2006 Emergency room Devonte Zacarias [place] [address] Social History Tobacco Use Types Packs/Day Years Used Date Smoking Tobacco: Former Alcohol Use Standard Drinks/Week Comments Yes 0 (1 standard drink = 0.6 oz pure alcoho l) social Sex Assigned at Date Recorded Not on file documented as of this encounter Progress Notes Interface, Monomer Recovery Operator - 08/28/2006 7:31 AM CDT FINAL CHIEF [...] MD MT: [id number] Name: DARIANA VALDEZ Account: [id number] : 1975 Visit Date: 08/21/2006 Document: [id number] cc: [facility] documented in this encounter Plan of Treatment Not on filedocumented as of this encounter Visit Diagnoses Not on filedocumented in this encounter Care Teams Vessel Master Relationship Specialty Start Date End Date Melvin Palacios MD PCP - General 06/22/99 09/20/10 [address] [id number] documented as of this encounter
--- OUTSIDE RECORDS SUMMARY | 2022-04-11 21:51 | XMS_ITS | Encounter Summary ---
:1975 Author Organization [place] Address [address] [place] [address] Care Team Providers Name Role Phone Melvin Palacios MD Primary Care Provider Encounter Details Date Type Department Care Team Description 02/18/2006 Historic Results [facility] Jana Palacios MD [place] [address] [place] [address] (W ork) [address] [phone] Social History Tobacco Use Types Packs/Day Years [...] C. MISYS Trachomatis PCR trachomatis rRNA by laboratory mechanical technician mediated amplification. Comment: A negative result by laboratory mechanical technician medi ated amplification does not preclude the [...] for N. MISYS PCR gonorrhoeae rRNA by laboratory mechanical technician mediated amplification. Comment: A negative result by laboratory mechanical technician medi ated amplification does not preclude the [...] MISYS Description Micro Report FINAL MISYS Status [id number] Wet Prep Many PMNs MISYS seen Comment: [...] differential and platelet (02/18/2006 6:45 PM CDT) [facility] gist Method Time Signature MCV 90 78 [...] LAB - BLOOD ORDERABLES Performing Organization Address City/[facility] Code Phon e Number MISYS HCG qualitative (02/18/2006 6:45 PM CDT) [employer] Method Time Signature HCG Qualitative Negative NEG MISYS Serum Specimen Anatomical Collection Method Collection Time Receive d Time (Source) Location / / Volume Laterality 02/18/2006 6:45 PM 6 6:36 CDT PM CDT Harris James MD LAB - BLOOD ORDERABLES Performing Organization Address City/State/ZIP Code Phon e Number MISYS (ABNORMAL) Routine UA with microscopic (02/18/2006 6:13 PM CDT) [employer] Method Time Signature Source Midstream MISYS Urine Color Urine Yellow MISYS Appearance Urine Clear MISYS Glucose Urine Negative NEG mg/dL MISYS Bilirubin Urine Negative NEG MISYS Ketones Urine Negative NEG mg/dL MISYS Specific [place] 1.018 1.003 - MISYS Urine 1.035 Blood [...] - URINE ORDERABLES Performing Organization Address City/[facility]/ZIP Code Phon e Number MISYS HCG qualitative urine (02/18/2006 6:13 PM CDT) P athologist Signature HCG Qual Urine Negative NEG MISYS Specimen Anatomical Collection Method Collection Time Receive d Time (Source) Location / / Volume Laterality 02/18/2006 6:13 PM 6 6:13 CDT PM CDT Harris James MD LAB - URINE ORDERABLES Performing Organization Address City/[facility]/ZIP Code Phon e Number MISYS documented in this encounter Visit Diagnoses Not on filedocumented in this encounter Care Teams Technical Support Intern Relationship Specialty Start Date End Date Melvin Palacios MD PCP - General 06/22/99 09/20/10 [address] [id number] documented as of this encounter
--- OUTSIDE RECORDS SUMMARY | 2022-04-11 21:51 | XMS_ITS | Encounter Summary ---
:1975 Author Organization [place] Address [address] 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 Nonsmoker, occasional alcohol. She had a vaginal [...] 1-2 p.o. q.4-6h. p.r.n. pain. Follow with MECHANICAL PRODUCT ENGINEER for reevaluation in the next 7 days. Return for fever, new symptoms orworse symptoms. If it is a stone, will also her strain all urine, keep stone and take to her PMD. Electronically signed on 03/16/2006 16:22 by HARRIS MCMAHAN MD MT: [id number] Name: DARIANA VALDEZ MRN: [id number] Account: [id number] : 1975 Visit Date: 02/18/2006 Document: [id number] cc: [facility] documented in this encounter Plan of Treatment Not on filedocumented as of this encounter Visit Diagnoses Not on filedocumented in this encounter Care Teams Brick Washer Relationship Specialty Start Date End Date Melvin Palacios MD PCP - General 06/22/99 09/20/10 [address] [id number] documented as of this encounter
--- OUTSIDE RECORDS SUMMARY | 2022-04-11 21:51 | XMS_ITS | Encounter Summary ---
:1975 Author Organization [place] Address [address] [place] [address] Care Team Providers Name Role Phone Melvin Palacios MD Primary Care Provider Reason for Visit Reason Onset Date Comments Refill Request 11/12/2005 lexapro samples, not due to come in for follow up for 2 months Encounter Details Date Type Department Care Team Description 11/12/2005 Refill [facility] Melvin Palacios MD Refill Request (lexapro [facility] [place] [address] samples, not due to come [address] [place] [address] in for follow up for [address] [place] [address] months) [phone] Social History Tobacco Use Types Packs/Day Years [...] 8 weeks of samples left for pt coal picker at the front desk specialist pending approval. Karol Avalos LPN documented in this encounter Plan of Treatment Not on filedocumented as of this encounter Visit Diagnoses Diagnosis Adjustment disorder with depressed mood Generalized anxiety disorder Depressive disorder, not elsewhere class ified documented in this encounter Care Teams Senior Infrastructure Engineer Relationship Specialty Start Date End Date Melvin Palacios MD PCP - General 06/22/99 09/20/10 [address] [phone] documented as of this encounter
--- OUTSIDE RECORDS SUMMARY | 2022-04-11 21:51 | XMS_ITS | Encounter Summary ---
:1975 Author Organization [facility] Address [address] [place] [address] Care Team Providers Name Role Phone Melvin Palacios MD Primary Care Provider Reason for Visit Reason Comments Consult biten by becky leigh a.mCasper at [facility] on right hand and elbow Encounter Details Date Type Department Care Team Description 03/07/[address] [facility] Melvin Palacios MD ENDOMETRIOSIS NOS (Primary Dx); [facility] [place] [address] ANIMAL BITE NEC [address] [place], [place] [address] [address] [phone] Social History Tobacco Use Types Packs/Day Years [...] by 13 week old (nonwild) ferret at [facility] one hour ago. Td [...] - biten by ferret this a.m. at [facility] on right hand and elbow Initial BP [...] arthropod documented in this encounter Care Teams Substation Operator Transforming Relationship Specialty Start Date End Date Melvin Palacios MD PCP - General 06/22/99 09/20/10 [address] [phone] documented as of this encounter
--- OUTSIDE RECORDS SUMMARY | 2022-04-11 21:51 | XMS_ITS | Encounter Summary ---
:1975 Author Organization [place] Address [address] [place] [address] Care Team Providers Name Role Phone Melvin Palacios MD Primary Care Provider Reason for Visit Reason Onset Date Comments Refill Request 12/11/2006 lunesta and lexapro samples Encounter Details Date Type Department Care Team Description 12/11/2006 Refill [facility] [place] efill Request (lunesta [place] ZENON Maddox and lexapro samples) [address] [place] [address] [phone] (Wo rk) Social History Tobacco Use Types [...] disorder documented in this encounter Care Teams Loading Machine Adjuster Relationship Specialty Start Date End Date Melvin Palacios MD PCP - General 06/22/99 09/20/10 [address] [phone] documented as of this encounter
--- OUTSIDE RECORDS SUMMARY | 2022-04-11 21:51 | XMS_ITS | Encounter Summary ---
:1975 Author Organization [place] Address [address] [place] [address] Care Team Providers Name Role Phone Melvin Palacios MD Primary Care Provider Reason for Visit Reason Comments RECHECK nervous breakdown Encounter Details Date Type Department Care Team Description 11/01/2005 Office Visit [facility] Melvin Palacios MD DEPRESSIVE DISORDER NEC; [facility] [place] [address] ADJUSTMENT DISORDER WITH DEP RESSED MOOD [address] [place], [place] [phone] Social History Tobacco Use Types Packs/Day Years [...] mood documented in this encounter Care Teams Textile Coating Machine Operator Relationship Specialty Start Date End Date Melvin Palacios MD PCP - General 06/22/99 09/20/10 [address] [address] documented as of this encounter
--- OUTSIDE RECORDS SUMMARY | 2022-04-11 21:52 | XMS_ITS | Encounter Summary ---
:1975 Author Organization [place] Address [address] [place] [address] Care Team Providers Name Role Phone Melvin Palacios MD Primary Care Provider Reason for Visit Reason Comments RECHECK follow-up on effexpaty - nandini jones for the anxiety, fatigue during the day - very low engery, HAYES - discuss if side effects could be due to stress Encounter Details Date Type Department Care Team Description 05/28/[address] [facility] [place] VE DISORDER NEC; [facility] [place] ZENON Maddox HEADACHE [address] [place] [phone] Social History Tobacco Use Types Packs/Day Years Used Date Smoking Tobacco: Every Day Comments: socially Alcohol Use Standard Drinks/Week Comments Yes 0 (1 standard drink = 0.6 oz pure alcoho l) social Sex Assigned at Date Recorded Not on file documented as of this encounter Last Filed Vital Signs Vital Sign Reading Time Taken Comments Blood Pressure 104/72 05/28/2005 10:30 AM ELECTORATE OFFICER Pulse - - Temperature - - Respiratory Rate - - Oxygen Saturation - - Inhaled Oxygen Concentration - - Weight 71.7 kg (158 lb) 05/28/2005 10:30 AM ELECTORATE OFFICER Height 170.2 cm (5' 7) 05/28/2005 10:30 AM ELECTORATE OFFICER Body Mass Index 24.75 05/28/2005 10:30 AM ELECTORATE OFFICER documented in this encounter Progress Notes Tobi [...] light touch good and equal bilaterally. Normal dhmwer-ua-vodv testing. Normal Rhomberg and pronator drift testing. [...] given. F/u in 1 month for recheck. TORATE OFFICER documented in this encounter Nursing Notes 05/28/2005 [...] completed using cuff size regular. Kelli Antonio, Athletic Equipment Manager documented in this encounter Plan of Treatment Not on filedocumented as of this encounter Visit Diagnoses Diagnosis Depressive disorder, not elsewhere class ified Headache(784.0) Headache documented in this encounter Care Teams Optoelectronic Technician Relationship Specialty Start Date End Date Melvin Palacios MD PCP - General 06/22/99 09/20/10 [address] [address] documented as of this encounter
--- OUTSIDE RECORDS SUMMARY | 2022-04-11 21:52 | XMS_ITS | Encounter Summary ---
:1975 Author Organization [place] Address [address] [place] [address] Care Team Providers Name Role Phone Melvin Palacios MD Primary Care Provider Reason for Visit Reason Comments Imm/Inj record Encounter Details Date Type Department Care Team Description 10/18/1999 Telephone [facility] Autumn Leach [facility] N Imm/Inj (record) Physicians [address] [address] Social History Tobacco Use [...] on filedocumented in this encounter Care Teams Microbiology Lab Analyst Relationship Specialty Start Date End Date Melvin Palacios MD PCP - General 06/22/99 09/20/10 [address] [phone] documented as of this encounter
--- OUTSIDE RECORDS SUMMARY | 2022-04-11 21:52 | XMS_ITS | Encounter Summary ---
:1975 Author Organization [place] Address [address] [place] [address] Care Team Providers Name Role Phone Melvin Palacios MD Primary Care Provider Encounter Details Date Type Department Care Team Description 08/16/2005 Historic Results INTERFACED REPORT [facility] [address] [place] [address] Social History Tobacco Use Types Packs/Day Years [...] STAT 08/16/2005 8:15 PM Results for this MUCKING MACHINE OPERATOR procedure are i n the results section. ROUTINE UA WITH STAT 08/16/2005 8:15 PM Result s for this MICROSCOPIC MUCKING MACHINE OPERATOR procedure are i n the results section. documented in this encounter Results (ABNORMAL) Routine UA with microscopic (08/16/2005 8:15 PM MUCKING MACHINE OPERATOR) [facility] Method Time Signature Source Midstream MISYS Urine Color Urine Yellow MISYS Appearance Urine Clear MISYS Glucose Urine Negative NEG mg/dL MISYS Bilirubin Urine Negative NEG MISYS Ketones Urine 5 (A) NEG mg/dL MISYS Specific [place] 1.019 1.003 - MISYS Urine 1.035 Blood [...] Volume Laterality 08/16/2005 8:15 PM 6 8:19 MUCKING MACHINE OPERATOR PM MUCKING MACHINE OPERATOR Giovani Robertsench LAB - URINE ORDERABLES Performing Organization Address City/[facility]/ZIP Code Phon e Number MISYS HCG qualitative urine (08/16/2005 8:15 PM MUCKING MACHINE OPERATOR) P athologist Signature HCG Qual Urine Negative NEG MISYS Specimen Anatomical Collection Method Collection Time Receive d Time (Source) Location / / Volume Laterality 08/16/2005 8:15 PM 6 8:19 MUCKING MACHINE OPERATOR PM MUCKING MACHINE OPERATOR Giovani Moreno LAB - URINE ORDERABLES Performing Organization Address City/[facility] Phon e Number MISYS documented in this encounter Visit Diagnoses Not on filedocumented in this encounter Care Teams Medical Laboratory Scientist Relationship Specialty Start Date End Date Melvin Palacios MD PCP - General 06/22/99 09/20/10 [address] [phone] documented as of this encounter
--- OUTSIDE RECORDS SUMMARY | 2022-04-11 21:52 | XMS_ITS | Encounter Summary ---
:1975 Author Organization [place] Address [address] [facility] [place] [address] Care Team Providers Name Role Phone Melvin Palacios MD Primary Care Provider Encounter Details Date Type Department Care Team Description 08/16/2005 Emergency room Giovani Moreno [address] [place] [address] Social History Tobacco Use Types Packs/Day Years Used Date Smoking Tobacco: Every Day Comments: socially Alcohol Use Standard Drinks/Week Comments Yes 0 (1 standard drink = 0.6 oz pure alcoho l) social Sex Assigned at Date Recorded Not on file documented as of this encounter Progress Notes Interface, Residential Counselor - 08/19/2005 6:33 AM LEGAL PRACTICE MANAGER FINAL CHIEF COMPLAINT: I have left flank [...] MD MT: [id number] Name: DARIANA VALDEZ Account: [id number] : 1975 Visit Date: 08/16/2005 Document: [id number] L PRACTICE MANAGER Interface, Residential Counselor - 08/18/2005 4:15 AM LEGAL PRACTICE MANAGER PRELIMINARY CHIEF COMPLAINT: I have left flank [...] MD MT: SANDRO#[id number] Name: DARIANA VALDEZ Account: [id number] : 1975 Visit Date: 08/16/2005 Document: [id number] L PRACTICE MANAGER documented in this encounter Plan of Treatment Not on filedocumented as of this encounter Visit Diagnoses Not on filedocumented in this encounter Care Teams Public Health Outreach Worker Relationship Specialty Start Date End Date Melvin Palacios MD PCP - General 06/22/99 09/20/10 [address] [id number] documented as of this encounter
--- OUTSIDE RECORDS SUMMARY | 2022-04-11 21:52 | XMS_ITS | Encounter Summary ---
:1975 Author Organization [place] Address [address] [place] [address]. [place] [address] Care Team Providers Name Role Phone Melvin Palacios MD Primary Care Provider Reason for Visit Reason Onset Date Comments Medication Request 01/25/2004 pertussis exposure, z pack Encounter Details Date Type Department Care Team Description 01/25/2004 Telephone [facility] [place] on Request Clinic [place] ZENON Madd[place] ([place] [address] [address] [facility] S pack) [place] [address] [phone] Social History Tobacco Use Types Packs/Day Years [...] on filedocumented in this encounter Care Teams Salesperson Men'S Hats Relationship Specialty Start Date End Date Melvin Palacios MD PCP - General 06/22/99 09/20/10 [address] [id number] documented as of this encounter
--- OUTSIDE RECORDS SUMMARY | 2022-04-11 21:52 | XMS_ITS | Encounter Summary ---
:1975 Author Organization [place] Address [address] [place] [address] Care Team Providers Name Role Phone Melvin Palacios MD Primary Care Provider Reason for Visit Reason Onset Date Comments Refill Request 06/13/2005 effexor xr Encounter Details Date Type Department Care Team Description 06/13/2005 Refill [facility] [place] efill Request (effexor [place] ZENON Maddox xr) [address] [place] [phone] [phone] (Wo rk) Social History Tobacco Use Types [...] Refill:05-10-05 refill ok'd PSO. Maricarmen Geller RN PSY ASSISTANT documented in this encounter Plan of Treatment Not on filedocumented as of this encounter Visit Diagnoses Diagnosis Depressive disorder, not elsewhere class ified documented in this encounter Care Teams Glost Tile Shader Relationship Specialty Start Date End Date Melvin Palacios MD PCP - General 06/22/99 09/20/10 [address] [address] documented as of this encounter
--- OUTSIDE RECORDS SUMMARY | 2022-04-11 21:52 | XMS_ITS | Encounter Summary ---
:1975 Author Organization [place] Address [address] [place] [address] Care Team Providers Name Role Phone Melvin Palacios MD Primary Care Provider Reason for Visit Reason Comments UTI Encounter Details Date Type Department Care Team Description 03/11/[address] [facility] Harris Garcia DYSURIA (Primary Dx); Clinic [place] MD Otoniel SPRYOSSI SHOULDER/ARM NOS; [address] [facility] [place] [address] [place] [phone] [address] [place] [address] Social History Tobacco Use Types [...] HCG, QUAL URINE (03/11/2003 10:26 AM CDT) [facility] gist Method Time Signature HCG Qual Urine Positive (A) NEG [facility] Specimen Anatomical Collection Method Collection Time Receive d Time (Source) Location / / Volume Laterality 03/11/2003 10:26 03/11/2003 AM CDT 10:27 AM CDT Harris Garcia MD LABORATORY Performing Organization Address City/State/[facility] Code Phon e Number [facility] [address] [place], [place] [phone] [facility] UA MICRO IF POSITIVE (03/11/2003 10:08 AM CDT) Analysis Performed At [facility] logist Time Signature Color Urine Yellow AJO Yellow [facility] Appearance Clear AJO Urine Clear [facility] Glucose Urine Negative NEG mg/dL AJO Negative [facility] Bilirubin Urine Negative NEG AJO Negative [facility] Ketones Urine Negative NEG mg/dL AJO Negative [facility] Specific 1.025 1.001 - AJO Decker Urine 1.035 [facility] Comment: 1.025 Blood Urine Negative [facility] Negative pH Urine 5.0 5.0 - 7.0 pH [facility] RI DGE [facility] Comment: 5.0 Protein Albumin Urine Negative NEG mg/dL [facility] Negative Urobilinogen Urine 0.2 0.2 - 1.0 EU/dL [facility] Comment: 0.2 Nitrite Urine Negative NEG [facility] R IDGE [facility] Negative Leukocyte Esterase Urine Negative NEG [facility] Negative Source Midstream Urine [facility] Midstream Urine Specimen Anatomical Collection Method Collection Time Receive d Time (Source) Location / / Volume Laterality 03/11/2003 10:08 03/11/2003 AM CDT 10:13 AM CDT Harris Garcia MD LABORATORY Performing Organization Address City/State/ZIP Code Phon e Number [facility] [address] [place] [address] [facility] documented in this encounter Visit Diagnoses Diagnosis Dysuria - Primary Sprain and strain of unspecified site of shoulder and upper arm Irregular menstrual cycle documented in this encounter Care Teams Weaving Instructor Relationship Specialty Start Date End Date Melvin Palacios MD PCP - General 06/22/99 09/20/10 [address] [id number] documented as of this encounter
--- OUTSIDE RECORDS SUMMARY | 2022-04-11 21:52 | XMS_ITS | Encounter Summary ---
:1975 Author Organization [place] Address [address] [place] [address]. [place] [address] Care Team Providers Name Role Phone Melvin Palacios MD Primary Care Provider Reason for Visit Reason Comments Refill Request Encounter Details Date Type Department Care Team Description 03/23/2003 Refill [facility] Edilia Carlos PA-C Refill Request [address] [place], [place] [phone] Social History Tobacco Use Types Packs/Day Years Used Date Smoking Tobacco: Never Assessed Sex Assigned at Date Recorded Not on file documented as of this encounter Miscellaneous Notes Telephone Encounter - 03/23/2003 11:59 PM CDT >> EDILIA CARLOS [facility] Mar 24, 2003 4:43 PM Rx faxed. Tiff >> DAMARI Cruz Mar 23, 2003 9:46 AM >> CALL RECEIVED. Contact: Pt. is requesting to go down to 20 mg of prozac, pharmacy in place. Nikolas Bowman CMA documented in this encounter Plan of Treatment Not on filedocumented as of this encounter Visit Diagnoses Not on filedocumented in this encounter Care Teams Grinder Set Up Operator Centerless Relationship Specialty Start Date End Date Melvin Palacios MD PCP - General 06/22/99 09/20/10 [address] [id number] documented as of this encounter
--- OUTSIDE RECORDS SUMMARY | 2022-04-11 21:52 | XMS_ITS | Encounter Summary ---
:1975 Author Organization [place] Address [address] [place] [address] Care Team Providers Name Role Phone Melvin Palacios MD Primary Care Provider Encounter Details Date Type Department Care Team Description 05/15/2004 Telephone [facility] None, [place] [address] [place] [phone] Social History Tobacco Use Types Packs/Day Years Used Date Smoking Tobacco: Never Alcohol Use Standard Drinks/Week Comments Yes 0 (1 standard drink = 0.6 oz pure alcoho l) social Sex Assigned at Date Recorded Not on file documented as of this encounter Miscellaneous Notes Telephone Encounter - 05/15/2004 10:09 AM TAPE DUPLICATOR >> PAU Goldman May 15, 2004 10:14 [...] Prescription for Wellbutrin faxed to [facility] in [place], 300 mg. [phone] if you need to talk with her otherwise just fax this in. Needs by today if possible......tomorrow is okay too documented in this encounter Plan of Treatment Not on filedocumented as of this encounter Visit Diagnoses Diagnosis Depressive disorder, not elsewhere class ified documented in this encounter Care Teams Feeder Operator Relationship Specialty Start Date End Date Melvin Palacios MD PCP - General 06/22/99 09/20/10 [address] [phone] documented as of this encounter
--- OUTSIDE RECORDS SUMMARY | 2022-04-11 21:52 | XMS_ITS | Encounter Summary ---
:1975 Author Organization [place] Address [address] [place] [address] Care Team Providers Name Role Phone Melvin Palacios MD Primary Care Provider Encounter Details Date Type Department Care Team Description 11/04/2002 Abstract [facility] Andreea Keita [address] [place], [place] [address] Social History Tobacco Use [...] filedocumented in this encounter Care Teams Inspector Final Assembly Electrical Relationship Specialty Start Date End Date Melvin Palacios MD PCP - General 06/22/99 09/20/10 [address] [phone] documented as of this encounter
--- OUTSIDE RECORDS SUMMARY | 2022-04-11 21:52 | XMS_ITS | Encounter Summary ---
:1975 Author Organization [place] Address [address] [place] [address] Care Team Providers Name Role Phone Melvin Palacios MD Primary Care Provider Reason for Visit Reason Onset Date Comments Refill Request 01/18/2005 Wellbutrin Encounter Details Date Type Department Care Team Description 01/18/2005 Refill [facility] [place] Request Prim ZENON Maddox (Wellbutrin) [address] [place] [phone] (Wo rk) Social History Tobacco Use Types [...] ified documented in this encounter Care Teams Corporate Travel Coordinator Relationship Specialty Start Date End Date Melvin Palacios MD PCP - General 06/22/99 09/20/10 [address] [address] documented as of this encounter
--- OUTSIDE RECORDS SUMMARY | 2022-04-11 21:52 | XMS_ITS | Encounter Summary ---
:1975 Author Organization [place] Address [address] [place] [address]. [place] [address] Care Team Providers Name Role Phone Melvin Palacios MD Primary Care Provider Encounter Details Date Type Department Care Team Description 11/16/2003 Delivery Summary [facility] Pilar Sandy, (Travel Registered Nurse Nicu) Travel Registered Nurse Nicu [address] [facility] [address] [facility] [address] [place] [address] [place] [address] (Wo rk) Social History Tobacco [...] [id number] _ PILAR SANDY MD MT: Document: [id number] [place], [place] Name: DARIANA VALDEZ DELIVERY SUMMARY Page 2 of 1 LCN: ASHLEY DSC: 11/18/2003 [place], [place] Name: MR#: : Admit Date: DARIANA VALDEZ [id number] 1975 11/16/2003 Doctor: PILAR SANDY MD DELIVERY SUMMARY Page 1 of 1 documented in this encounter Plan of Treatment Not on filedocumented as of this encounter Visit Diagnoses Not on filedocumented in this encounter Care Teams Department Chairperson Relationship Specialty Start Date End Date Melvin Palacios MD PCP - General 06/22/99 09/20/10 [address] [phone] documented as of this encounter
--- OUTSIDE RECORDS SUMMARY | 2022-04-11 21:52 | XMS_ITS | Encounter Summary ---
:1975 Author Organization [place] Address [address] [place] [address] Care Team Providers Name Role Phone Melvin Palacios MD Primary Care Provider Reason for Visit Reason Comments Consult Encounter Details Date Type Department Care Team Description 03/29/2004 Office Visit [facility] [place] DEPRESSYobani VE DISORDER Clinic [place] ZENON Maddox NEC (Primary Dx) [address] [facility] [address] [place] [address] [phone] Social History Tobacco Use Types Packs/Day Years [...] Primary documented in this encounter Care Teams Educational Aide Relationship Specialty Start Date End Date Melvin Palacios MD PCP - General 06/22/99 09/20/10 [address] [address] documented as of this encounter
--- OUTSIDE RECORDS SUMMARY | 2022-04-11 21:52 | XMS_ITS | Encounter Summary ---
:1975 Author Organization [place] Address [address] [place] [address] Care Team Providers Name Role Phone Melvin Palacios MD Primary Care Provider Encounter Details Date Type Department Care Team Description 12/17/2002 [facility] Laly Hilton EOUS [facility] [place] ENCOUNTER--DISREGARD [address] [facility] (Primary Dx) [place] [address] Social History Tobacco Use Types Packs/Day Years Used Date Smoking Tobacco: Never Assessed Sex Assigned at Date Recorded Not on file documented as of this encounter Plan of Treatment Not on filedocumented as of this encounter Visit Diagnoses Diagnosis ERRONEOUS ENCOUNTER--DISREGARD - Primary documented in this encounter Care Teams Stars Specialist Relationship Specialty Start Date End Date Melvin Palacios MD PCP - General 06/22/99 09/20/10 [address] [address] documented as of this encounter
--- OUTSIDE RECORDS SUMMARY | 2022-04-11 21:52 | XMS_ITS | Encounter Summary ---
:1975 Author Organization [place] Address [address] [facility] [place] [address] Care Team Providers Name Role Phone Melvin Palacios MD Primary Care Provider Reason for Visit Reason Onset Date Comments Patient Request 02/20/2005 Wants to switch from Wellbutrin to Effexor Slk Encounter Details Date Type Department Care Team Description 02/20/2005 Telephone [facility] [place] Patient Request (Wants [facility] [place] ZENON Maddox to switch from [address] [place] [address] Wellbutrin to Effexor [place], [place] Slk) [address] [phone] Social History Tobacco Use Types Packs/Day Years [...] Please call her on her cell # [phone]. Or work number [phone].Tobi Westis on vac. so I will send this to Dr. Mcguire.Esmer Cavanaugh RN. documented in this encounter Plan of Treatment Not on filedocumented as of this encounter Visit Diagnoses Diagnosis Depressive disorder, not elsewhere class ified - Primary documented in this encounter Care Teams Cage Tender Relationship Specialty Start Date End Date Melvin Palacios MD PCP - General 06/22/99 09/20/10 [address] [address] documented as of this encounter
--- OUTSIDE RECORDS SUMMARY | 2022-04-11 21:52 | XMS_ITS | Encounter Summary ---
:1975 Author Organization [place] Address [address] [place] [address]. [place] [address] Care Team Providers Name Role Phone Melvin Palacios MD Primary Care Provider Reason for Visit Reason Onset Date Comments Patient Inquiry 07/24/2004 Encounter Details Date Type Department Care Team Description 07/24/2004 Telephone [facility] [place] atient Inquiry [place] ZENON Maddox [address] [place] [phone] Social History Tobacco Use Types Packs/Day Years Used Date Smoking Tobacco: Never Alcohol Use Standard Drinks/Week Comments Yes 0 (1 standard drink = 0.6 oz pure alcoho l) social Sex Assigned at Date Recorded Not on file documented as of this encounter Miscellaneous Notes Telephone Encounter - Melissa Pickett - 07/27/2004 1:25 PM CST Pt informed. Melissa Pickett RN L BIT SHARPENER Telephone Encounter - Tobi Beltran - 07/26/2004 8:25 PM DRILL BIT SHARPENER please call Dariana know that I sent 1 year rx of Orth[facility]TriCyclen [facility]. If she would prefer to go back to the patch for any particular reason, I would be happy to change rx. I attempted to reachher [place], but she was unavailable. L BIT SHARPENER Telephone Encounter - Sridevi Magallon - 07/26/2004 [...] November and had post in December at [facility] CORPORATE SERVICES MANAGER. Used to be on Ortho Tri Cyclen and then Ortho Evra. Is going to be coming in on Friday with her son, she said she could talk to you at this time too ifyou needed her to. Sridevi Magallon RN L BIT SHARPENER Telephone Encounter - 07/24/2004 10:20 AM DRILL BIT SHARPENER Staff Message copied by PAU FRANKLIN on 07/24/2004 at 10:20 AM ------ Message from: DILLON RODAS Created: 07/24/2004 at 10:05 AM Regarding: AW-pres [phone] Wants to get a pres for regulating hormones.....ALso has a question about Wellbutrin L BIT SHARPENER documented in this encounter Plan of Treatment Not on filedocumented as of this encounter Visit Diagnoses Diagnosis Other general counseling and advice for contraceptive management - Primary documented in this encounter Care Teams Lime Hide Inspector Relationship Specialty Start Date End Date Melvin Palacios MD PCP - General 06/22/99 09/20/10 [address] [address] documented as of this encounter
--- OUTSIDE RECORDS SUMMARY | 2022-04-11 21:52 | XMS_ITS | Encounter Summary ---
:1975 Author Organization [place] Address [address] [facility] [place] [address] Care Team Providers Name Role Phone Melvin Palacios MD Primary Care Provider Reason for Visit Reason Comments RECHECK medication - Wellbutrin Encounter Details Date Type Department Care Team Description 05/17/2004 Office Visit [facility] [place] DEPRESSYobani VE DISORDER Clinic [place] ZENON Maddox [facility] (Primary Dx) [address] [address] [phone] Social History Tobacco Use Types Packs/Day Years Used Date Smoking Tobacco: Never Alcohol Use Standard Drinks/Week Comments Yes 0 (1 standard drink = 0.6 oz pure alcoho l) social Sex Assigned at Date Recorded Not on file documented as of this encounter Last Filed Vital Signs Vital Sign Reading Time Taken Comments Blood Pressure 110/64 05/17/2004 9:51 AM SAXOPHONE PLAYER Pulse - - Temperature - - Respiratory Rate - - Oxygen Saturation - - Inhaled Oxygen Concentration - - Weight - - Height - - Body Mass Index - - documented in this encounter Progress Notes 05/17/2004 9:30 AM SAXOPHONE PLAYER Dariana Osman presents to clinic today for [...] Primary documented in this encounter Care Teams Lifeguard Relationship Specialty Start Date End Date Melvin Palacios MD PCP - General 06/22/99 09/20/10 [address] [address] documented as of this encounter
--- OUTSIDE RECORDS SUMMARY | 2022-04-11 21:52 | XMS_ITS | Encounter Summary ---
:1975 Author Organization [place] Address [address] [place] [address] Care Team Providers Name Role Phone Melvin Palacios MD Primary Care Provider Reason for Visit Reason Comments RECHECK medication Refill Request Encounter Details Date Type Department Care Team Description 01/22/2005 Office Visit [facility] [place] VE DISORDER Clinic [place] ZENON Maddox [facility] (Primary Dx) [address] [address] [phone] Social History Tobacco Use Types Packs/Day Years [...] Primary documented in this encounter Care Teams Model Engine Mechanic Relationship Specialty Start Date End Date Melvin Palacios MD PCP - General 06/22/99 09/20/10 [address] [address] documented as of this encounter
--- OUTSIDE RECORDS SUMMARY | 2022-04-11 21:52 | XMS_ITS | Encounter Summary ---
:1975 Author Organization [place] Address [address] [place] [address]. [place] [address] Care Team Providers Name Role Phone Melvin Palacios MD Primary Care Provider Encounter Details Date Type Department Care Team Description 08/16/2005 Orders Only [facility] [place] NOT YET Clinic [place] ZENON Maddox DEFINED (Primary Dx) [address] [facility] [address] [place] [address] [phone] Social History Tobacco Use Types Packs/Day Years [...] Primary documented in this encounter Care Teams Boiler Coverer Helper Relationship Specialty Start Date End Date Melvin Palacios MD PCP - General 06/22/99 09/20/10 [address] [address] documented as of this encounter
--- OUTSIDE RECORDS SUMMARY | 2022-04-11 21:52 | XMS_ITS | Encounter Summary ---
:1975 Author Organization [place] Address [address] [place] [address] Care Team Providers Name Role Phone Melvin Palacios MD Primary Care Provider Reason for Visit Reason Comments Medication Request Encounter Details Date Type Department Care Team Description 03/07/2005 Office Visit [facility] [place] VE DISORDER Clinic [place] ZENON Maddox NEC (Primary Dx) [address] [address] [phone] Social History Tobacco Use Types Packs/Day Years [...] completed using cuff size: regular Karol Avalos GENERAL WORKER documented in this encounter Plan of Treatment Not on filedocumented as of this encounter Visit Diagnoses Diagnosis Depressive disorder, not elsewhere class ified - Primary documented in this encounter Care Teams Infection Preventionist Relationship Specialty Start Date End Date Melvin Palacios MD PCP - General 06/22/99 09/20/10 [address] [address] documented as of this encounter
--- OUTSIDE RECORDS SUMMARY | 2022-04-11 21:52 | XMS_ITS | Encounter Summary ---
:1975 Author Organization [place] Address [address] [facility] [place] [address] Care Team Providers Name Role Phone Melvin Palacios MD Primary Care Provider Reason for Visit Reason Comments Refill Request Breanna kathleen [place] Encounter Details Date Type Department Care Team Description 02/18/2003 Refill [facility] Reed Carlos PA-C Refill Request Clinic [facility] INTEGRATIVE (Breanna kathleen [place] [address] [place] [address] ISAIAS MONCADA [facility] [address] [facility] [phone] [place], [place] [address] (Wo rk) Social History Tobacco Use Types Packs/Day Years Used Date Smoking Tobacco: Never Assessed Sex Assigned at Date Recorded Not on file documented as of this encounter Miscellaneous Notes Telephone Encounter - 02/18/2003 11:59 PM CDT >> DAMARI BOWMAN FriFeb 18, 2003 4:24 PM notified needs appt. Nikolas Bowman OUTSIDE SALES CONSULTANT >> MELVIN PALACIOS FriFeb 18, 2003 4:14 PM needs to be seen within 1 month >> ERIKA WEBB FriFeb 18, 2003 4:02 PM >> CALL RECEIVED. Contact: LAST FILLED 01/20/03 LAST SEEN 03/15/03 Erika Webb CNA documented in this encounter Plan of Treatment Not on filedocumented as of this encounter Visit Diagnoses Not on filedocumented in this encounter Care Teams Artificial Intelligence Specialist Relationship Specialty Start Date End Date Melvin Palacios MD PCP - General 06/22/99 09/20/10 [address] [address] documented as of this encounter
[2022-04-11 22:22] LABS: PCR FLU A Negative PCR FLU A (Negative); PCR FLU B Negative PCR FLU B (Negative); SARS PCR* Negative SARS-CoV-2 (Negative)
[2022-04-11 22:26] VITALS: TEMP 37.2
[2022-04-11 22:32] VITALS: BP 128/89; PULSE 87; RESP 18; O2SAT 97
[2022-04-11 23:03] LABS: CDIFFEPI 027 PRESUMPTIVE NEGATIVE (Negative)
[2022-04-11 23:18] LABS: C.Difficile POSITIVE (Negative)
[2022-04-12] MEDS: HYDROmorphone 0.5 mg/0.5 ml inj IVP (00:06)
--- NOTE | 2022-04-12 00:14 | ED.NURSE ---
MD note for off work until friday, further if still having diarrhea.
[2022-04-12] MEDS: VANCOMYCIN 125 MG CAPSULE PO (00:16)
[2022-04-12 00:28] VITALS: BP 122/84; PULSE 78; RESP 18; TEMP 36.9; O2SAT 97
[2022-04-12 00:29] VITALS: BP 122/84; PULSE 78; RESP 18; TEMP 36.9
== END 2022-04-12 00:29 | disposition home or self-care (01) ==
PROVIDERS: Emergency Provider Student in an Organized Health Care Education/Training Program; PCP Family Medicine
DX: K57.92 Diverticulitis of intestine, part unspecified, without perforation or abscess without bleeding (principal); A04.71 Enterocolitis due to Clostridium difficile, recurrent
CPT/HCPCS: 36415; 80053; 81003; 83690; 85025; 86140; 87040; 87493; 87505; 87631; 94761; 96374; 96375; 96376; 99283; 99284; J1170; J1885; J2405; J7030

== ENCOUNTER 2022-04-30 09:08 | Outpatient (CLI) | payer OTHER, SELFPAY ==
--- OUTSIDE RECORDS SUMMARY | 2022-04-30 09:30 | XMS_ITS | Encounter Summary ---
:1975 Author Organization [facility] Address [address] [facility] [place] [address] Care Team Providers Name Role Phone Erik Rivas Primary Care Provider Yony Garcia PA-C Unavailable [phone] Reason for Visit Reason Onset Date Comments Outreach 01/02/2019 VIP MAMMO - ATT 1 Encounter Details Date Type Department Care Team Description 01/02/2019 Telephone [facility] Centralized Erik Rivas Outreach ([facility]AMMO - [facility] [address] [address] [place], [place] [phone] [id number] Social History Tobacco Use Types Packs/Day Years [...] - Preventive Health Screening PHYSICAL Comments: Outreach [employer] [address] documented in this encounter Plan of Treatment Not on filedocumented as of this encounter Visit Diagnoses Not on filedocumented in this encounter Additional Health Concerns Assessment Noted Time PHQ-9 Depression Total Score: 2 07/18/2017 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
--- OUTSIDE RECORDS SUMMARY | 2022-04-30 09:30 | XMS_ITS | Encounter Summary ---
:1975 Author Organization [facility] Address [address] [place] [address] Care Team Providers Name Role Phone Yony Garcia PA-C Primary Care Provider [phone] Yony Garcia PA-C Unavailable [phone] Yony Garcia PA-C Unavailable [phone] Reason for Visit Reason Comments Surgical Followup hysterectomy 02/05/17 Encounter Details Date Type Department Care Team Description 02/18/2017 Office Visit [facility] Jeimy Christensen S/P hyst erectomy (Primary Dx); [facility] due to excess [facility] (H ) [address] [address] [place], [place] [phone] [id number] Social History Tobacco Use Types Packs/Day Years [...] Dr. Jeimy Christensen DO Obstetrics and Gynecology [facility] documented in this encounter Progress Notes [...] prescribed. She recently got a membership at [employer] and would like assistance losing weight. This document serves as a record of the services and decisions personally performed and made by Jeimy Christensen DO. It was created on his/her behalf by Evonne Geiger, a trained medical language specialist. The creation of this document is based the provider's statements to the medical language specialist. Sasha Geiger 4:21 PM, February 18, 2017 [...] in this document, created by the medical language specialist for me, accurately reflects the services I [...] documented as of this encounter Care Teams Partnership Manager Relationship Specialty Start Date End Date Yony Garcia, PCP - General Physician Second [employer]acing [place] - 01/30/17 07/23/18 [facility] Yony Garcia, PCP - Assigned PCP 09/01/16 08/11/18 [place] [id number] [address] [id number] Yony Garcia, Assigned PCP 09/01/16 [place] [id number] [address] [id number] documented as of this encounter
--- OUTSIDE RECORDS SUMMARY | 2022-04-30 09:30 | XMS_ITS | Encounter Summary ---
:1975 Author Organization [place] Address [address] [facility] [place] [address] Care Team Providers Name Role Phone Yony Garcia PA-C Unavailable [phone] Erik Rivas Primary Care Provider Yony Garcia PA-C Unavailable [phone] Reason for Visit Reason Onset Date Comments Hospital F/U 07/27/2018 Dx: right Kidney sto ne D/c 07/25/18 Encounter Details Date Type Department Care Team Description 07/27/2018 Telephone [facility] Yony Garcia il F/U (Dx: Clinic [place] right Kidney stone D/c [facility], [address] [place] [address] 07/25/18) [address] [place] [address] [place], [place] [phone] (Wo rk) [address] [phone] Social History Tobacco Use Types Packs/Day Years [...] 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 I am calling to follow up and [...] diagnoses of heart failure, COPD, diabetes, or MO? No Medication reconciliation completed? Yes Was MTM [...] time and take care! Mayela Reese RN COILER Telephone Encounter - Mayela Reese RN - 07/28/2018 10:57 AM CST ED / Discharge Outreach Protocol Patient Contact Attempt # 1 Was call answered? No. Left message on voicemail with information to call me back. Mayela Reese RN COILER Telephone Encounter - Missy Rolle - 07/27/2018 1:11 PM WIRE COILER Follow up with Urology as directed Dx: right Kidney stone No future appointments with [facility] at this time. Fady Rolle Track Greaser 07/27/18 1:21 PM COILER documented in this encounter Plan of Treatment Not on filedocumented as of this encounter Visit Diagnoses Not on filedocumented in this encounter Additional Health Concerns Assessment Noted Time PHQ-9 Depression Total Score: 2 07/18/2017 8:08 AM WIRE COILER documented as of this encounter Care Teams Cooker Casing Relationship Specialty Start Date End Date Yony Garcia PA-C PCP - Assigned PCP 09/01/16 08/11/18 [id number] [address] [id number] Erik Rivas PCP - General Family Practice 07/24/[address] [address] Yony Garcia PA-C Assigned PCP 09/01/16 02/05/20 [id number] [address] [id number] documented as of this encounter
--- OUTSIDE RECORDS SUMMARY | 2022-04-30 09:30 | XMS_ITS | Encounter Summary ---
:1975 Author Organization [place] Address [address] [place] [address] Care Team Providers Name Role Phone Yony Garcia PA-C Unavailable [phone] Erik Rivas Primary Care Provider Yony Garcia PA-C Unavailable [phone] Reason for Visit Reason Comments Flank Pain Encounter Details Date Type Department Care Team Description 07/24/2018 - [facility] Orion Akers MD [facility] [address] [place] [address] Right kidney stone 07/25/2018 [facility] PreOP/PostOP Andrea Dumas, DO [address] [place] [address] [address] [place] [address] Social History Tobacco Use Types [...] Comments Blood Pressure 136/92 07/25/2018 5:45 PM REGROOVER Pulse 72 07/25/2018 5:45 PM REGROOVER Temperature 36.8 ??C (98.3 ??F) 07/25/2018 5:45 PM REGROOVER Respiratory Rate 13 07/25/2018 5:45 PM REGROOVER Oxygen Saturation 99% 07/25/2018 5:45 PM REGROOVER Inhaled Oxygen Concentration - - Weight 94.8 kg (209 lb) 07/24/2018 6:40 PM REGROOVER Height 167.6 cm (5' 6) 07/24/2018 11:33 PM REGROOVER Body Mass Index 33.73 07/24/2018 6:40 PM REGROOVER documented in this encounter Discharge Summaries Gwendolyn Iyer PA-C - 07/25/2018 10:19 AM CST [facility] Hospitalist Discharge Summary Date of Admission: [...] These results will be followed up by [facility] Course This is a 40 [...] minutes discharging this patient. Gwendolyn Iyer PA-C [facility] Physical Exam Vital Signs: Temp: 97.6 [...] alert, oriented, appropriate. Primary Care Physician Erik Rivsa Discharge Disposition Discharged to home Condition at [...] mouth At Bedtime Allergies No Known Allergies OOVER documented in this encounter Discharge Instructions Discharge InstructionsHannah Shaffer RN - 07/25/2018 4:49 PM CST CYSTOSCOPY DISCHARGE INSTRUCTIONS [facility] [phone] YOU MAY GO BACK TO YOUR NORMAL [...] STILL NOT ABLE TO URINATE (PASS WATER). OOVER documented in this encounter Medications at Time [...] Will be sent to PeriOp with pt. Grounds Foreman - Pt DOES NOT need an seasonal package handler.. Beta Glenys - Pt is NOT on [...] Op Nurse Handoff Report was reviewed by: OOVER Connie Jerry RN - 07/24/2018 11:41 PM CST ROOM # 203 Living Situation (if not independent, order SW consult): in [place] with nallely Facility name: salesperson art objects: Connie hodge Activity level at baseline: Ind Activity level on admit: Ind Patient registered to observation; given Patient Bill of Rights; given the opportunity to ask questions about observation status and their plan of care. Patient has been oriented to the observation room, bathroom and call light is in place. Discussed discharge goals and expectations with patient/family. OOVER documented in this encounter H&P Notes Andrea Dumas DO - 07/24/2018 11:18 PM CST [facility] History and Physical - Hospitalist Service [...] DO 07/24/2018, 11:14 PM Andrea Dumas DO [facility] Chief Complaint Right flank pain. History [...] 0.90 ANIONGAP 5 RONAK 8.8 GLC 84 OOVER documented in this encounter Consult Notes Angel [...] MT: Name: DARIANA OSMAN MRN: [id number] Account: [id number] : 1975 Consult Date: 07/25/2018 Document: [id number] OOVER documented in this encounter ED Notes Connie Jerry RN - 07/24/2018 10:27 PM CST [facility] ED Nurse Handoff Report Dariana Osman is a 42 year old female ED Chief complaint: Flank Pain . ED Diagnosis: Final diagnoses: None Allergies: No Known Allergies Code Status: Full Code Activity level - Baseline/Home: Independent. Activity Level - Current: Stand with Assist. Lift room needed: No. Bariatric: No Grounds Foreman Needed: No Isolation: No. Infection: Not Applicable. [...] on July 24, 2018 at 10:35 PM OOVER Karrie Newton RN - 07/24/2018 6:43 PM CST Patient to ED with right flank pain, radiates to groin. Started today. Has h/o kidney stones. OOVER Orion Akers MD - 07/24/2018 6:12 PM [...] and the provider's statements to me. 07/24/2018 [facility] EMERGENCY DEPARTMENT Orion Akers MD 07/25/18 0044 OOVER documented in this encounter Miscellaneous Notes Op [...] The procedure began by introducing a 22 Czech rigid cystoscope through the urethra into the [...] RONDA Name: DARIANA OSMAN MRN: [id number] Account: [id number] : 1975 Procedure Date: 07/25/2018 Document: [id number] OOVER Plan of Care - Tobi Burgos RN - 07/25/2018 12:46 PM CST PRIMARY DIAGNOSIS: ACUTE RENAL COLIC OUTPATIENT/OBSERVATION GOALS TO BE MET BEFORE DISCHARGE 1. Pain Status: Improved but still requiring IV narcotics. 2. Tolerating adequate PO diet: NPO 3. Surgical Intervention planned: Yes 4. Cleared by consultants (if involved): No 5. Return to near baseline physical activity: Yes Data Capture Specialist Nurse Safe discharge environment identified: Yes Barriers [...] met and patient is ready for discharge. OOVER Plan of Care - Tobi Burgos RN [...] Return to near baseline physical activity: Yes Data Capture Specialist Nurse Safe discharge environment identified: Yes Barriers [...] met and patient is ready for discharge. OOVER Plan of Care - Connie Jerry RN [...] ind for activity - up ad praveen Data Capture Specialist Nurse Safe discharge environment identified: Yes Barriers [...] sediment noted, IVF, urology in AM, NPO OOVER Plan of Care - Connie Jerry RN [...] ind for activity - up ad praveen Data Capture Specialist Nurse Safe discharge environment identified: Yes Barriers [...] strain urine, IVF, urology in AM, NPO OOVER Pharmacy-Admission Medication History - Vera Duvall, [facility] - 07/24/2018 11:07 PM CST .Admission medication history interview status for this patient is complete. See [facility] admission navigator for allergy information, prior to admission medications and immunization status. Medication history interview source(s):Patient Medication history resources (including written lists, pill bottles, clinic record):None Primary pharmacy: Not ID'd Changes made to [facility]LE [facility] medication list: Added: None Deleted: None Changed: [...] Bedtime 07/23/2018 at HS Yes Reported, Patient OOVER documented in this encounter Plan of Treatment Not on filedocumented as of this encounter Procedures Procedure Name Priority Date/Time Associated Comments Diagnosis SURGICAL PATHOLOGY Routine 07/25/2018 4:54 PM Res ults for this EXAM REGROOVER procedure are i n the results section. STONE ANALYSIS Routine 07/25/2018 4:54 PM Right kidney stone R esults for this REGROOVER procedure are i n the results section. XR SURGERY TAMMY Routine 07/25/2018 4:50 PM Result s for this FLUORO LESS THAN 5 REGROOVER procedure are in MIN W STILLS the results section. CYSTOSCOPY, WITH 07/25/2018 4:16 PM unknown RETROGRADE PYELOGRAM REGROOVER AND CALCULUS REMOVAL BASIC METABOLIC PANEL Routine 07/25/2018 5:55 AM Right kidney stone Results for this REGROOVER procedure are i n the results section. CT ABDOMEN PELVIS W/O STAT 07/24/2018 7:55 PM Results for this CONTRAST REGROOVER procedure are i n the results section. BASIC METABOLIC PANEL STAT 07/24/2018 7:04 PM Results for this REGROOVER procedure are i n the results section. ROUTINE UA WITH STAT 07/24/2018 7:00 PM Result s for this MICROSCOPIC REGROOVER procedure are i n the results section. documented in this encounter Results Surgical pathology exam (07/25/2018 4:54 PM REGROOVER) Component Value Ref Test Analysis Performed At [facility] Range Method Time Signature Copath Report Patient Name: DARIANA OSMAN MR#: [id number] Specimen #: [id number] Collected: 07/25/2018 Received: 07/27/2018 Reported: 07/27/2018 12:02 [...] of this testing was completed at the [facility], with the professional compo nent performed at the [facility], [address] [place] [address] ??[phone] ([phone]) CPT Codes: A: 25123-TD COLLECTION SITE: Client: [facility] Location: RHPRE (R) Specimen Anatomical Collection Method Collection Time Receive d Time (Source) Location / / Volume Laterality 07/25/2018 4:54 PM 9 8:00 REGROOVER AM REGROOVER Andrea SHETTY - H[facility]EN HEBERT Performing Organization Address City/State/ZIP Code Phon e Number COPATH Stone analysis (07/25/2018 4:54 PM REGROOVER) [facility] Method Time Signature Stone SEE NOTE 07/31/2018 [place] Composition 9:30 AM [facility] Comment: (Note) Calculi composed primarily of calcium [...] omposition determined by FTIR analysis. Performed by [facility], [address] [place] [id number] [email or web address], Oswaldo iPerson MD, Lab. Director Calculi Number 1 07/31/2018 9:[address] [facility] Calculi Size 1 to 4 mm 07/31/2018 9:30 AM REGROOVER [facility] Calculi Description SEE NOTE 07/31/2018 9:[address] [facility] Comment: (Note) Specimen consists of a single, small, brown/sanchez, irregular calculus. Stone Mass 18 mg 07/31/2018 9:30 AM REGROOVER [facility] Specimen (Source) Anatomical Collection Method Collection Time Re ceived Time Location / / Volume Laterality Calculus specimen STRUCTURE OF RIGHT 07/25/2018 4:54 P M (specimen) URETER / Unknown REGROOVER Angel Bartlett MD LAB - BODY FLUIDS ORDERABLES Performing Organization Address City/State/ZIP Code Phon e Number M [facility] [address] [place] [address] [facility] [address] [phone] XR Surgery TAMMY L/T 5 Min Fluoro w Stills (07/25/2018 4:50 PM REGROOVER) Anatomical Region Laterality Modality Abdomen/Pelvis Radio Fluoroscopy Specimen (Source) Anatomical Location Collection Method / Collectio n Time Received Time / Laterality Volume Impressions 07/25/2018 5:22 PM REGROOVER IMPRESSION: Single provided image of retrograde ureterogram without significant hydronephrosis. Filling defe ct in the distal ureter presumably represents an air bubble. Ple ase see operative report for further details. ALALN HANNA MD Narrative 07/25/2018 5:22 PM REGROOVER SURGERY C-ARM FLUOROSCOPY LESS THAN 5 MINUTES WITH STILLS ??07/25/2018 4:50 PM COMPARISON: 01/18/2016. HISTORY: CT abdomen pelvis 07/24/2018. NUMBER OF IMAGES ACQUIRED: 1 VIEWS: 1 FLUOROSCOPY TIME: .01 minutes. Procedure Note Allan Hanna MD - 07/25/2018 SURGERY C-ARM FLUOROSCOPY LESS THAN 5 [place] NUTES WITH STILLS 07/25/2018 4:50 PM COMPARISON: [...] (ABNORMAL) Basic metabolic panel (07/25/2018 5:55 AM [facility]) athologist Signature Sodium 142 133 - 144 07/25/2018 [place] mmol/L 6:23 AM [facility] Potassium 3.9 3.4 - 5.3 07/25/2018 [facility] mmol/L 6:23 AM [facility] Chloride 113 (H) 94 - 109 07/25/2018 [facility] mmol/L 6:23 AM [facility] Carbon Dioxide 26 20 - 32 07/25/2018 [facility] mmol/L 6:29 AM [facility] Anion Gap 3 3 - 14 07/25/2018 [facility] mmol/L 6:29 AM [facility] Glucose 99 70 - 99 07/25/2018 [facility] mg/dL 6:29 AM [facility] Urea Nitrogen 9 7 - 30 07/25/2018 [facility] mg/dL 6:29 AM [facility] Creatinine 0.80 0.52 - 07/25/2018 [facility] 1.04 mg/dL 6:29 AM [facility] GFR Estimate >90 >60 07/25/2018 [place] mL/min/{1. 6:29 AM [facility] 73_m2} HOSPITAL Comment: Non GFR Calc Starting 05/26/2018, serum creatinine ba sed estimated GFR (eGFR) will be calculated using the Chronic Kidney Dise [facility] Epidemiology Collaboration (CKD-EPI) equation. GFR Estimate If >90 >60 mL/min/{1.73_m2} 07/25/2018 6: 29 AM [facility] Comment: GFR Calc Starting 05/26/2018, serum creatinine ba sed estimated GFR (eGFR) will be calculated using the Chronic Kidney Dise [facility] Epidemiology Collaboration (CKD-EPI) equation. Calcium 7.5 (L) 8.5 - 10.1 mg/dL 07/25/2018 6:29 AM [facility] Specimen Anatomical Collection Method Collection Time Receive d Time (Source) Location / / Volume Laterality Blood specimen 07/25/2018 5:55 AM 019 5:56 (specimen) REGROOVER AM REGROOVER Andreaemmett Dumas DO LAB - BLOOD ORDERABLES Performing Organization Address City/State/ZIP Code Phon e Number M [facility] [address] [place], [place] [address] [facility] [address] [place], [place] [address] [facility] [phone] CT Abdomen Pelvis w/o Contrast (07/24/2018 7:55 PM REGROOVER) Anatomical Region Laterality Modality Abdomen/Pelvis, SUBRAD CT BODY, UMP CT ABDOMEN PELVIS, Computed Tomography RAD CT Specimen (Source) Anatomical Location Collection Method / Collectio n Time Received Time / Laterality Volume Impressions 07/24/2018 10:19 PM REGROOVER IMPRESSION: 1. 3 mm distal right ureter stone with o bstruction. 2. Small left renal angiomyolipoma. MANUEL ALMAZAN MD Narrative 07/24/2018 10:[address] ABDOMEN/PELVIS WITHOUT CONTRAST July 24, 2018 [...] ORDERABLES Basic metabolic panel (07/24/2018 7:04 PM [facility]) athologist Signature Sodium 134 133 - 144 07/24/2018 [facility] mmol/L 7:37 PM [facility] Potassium 3.8 3.4 - 5.3 07/24/2018 [facility] mmol/L 7:37 PM [facility] Chloride 104 94 - 109 07/24/2018 [facility] mmol/L 7:37 PM [facility] Carbon Dioxide 25 20 - 32 07/24/2018 [facility] mmol/L 7:43 PM [facility] Anion Gap 5 3 - 14 07/24/2018 [facility] mmol/L 7:43 PM [facility] Glucose 84 70 - 99 07/24/2018 [facility] mg/dL 7:43 PM [facility] Urea Nitrogen 12 7 - 30 07/24/2018 [facility] mg/dL 7:43 PM [facility] Creatinine 0.90 0.52 - 07/24/2018 [facility] 1.04 mg/dL 7:43 PM [facility] GFR Estimate 80 >60 07/24/2018 [place] mL/min/{1. 7:43 PM [facility] 73_m2} HOSPITAL Comment: Non GFR Calc Starting 05/26/2018, serum creatinine ba sed estimated GFR (eGFR) will be calculated using the Chronic Kidney Dise [facility] Epidemiology Collaboration (CKD-EPI) equation. GFR Estimate If >90 >60 mL/min/{1.73_m2} 07/24/2018 7: 43 PM [facility] Comment: GFR Calc Starting 05/26/2018, serum creatinine ba sed estimated GFR (eGFR) will be calculated using the Chronic Kidney Dise [facility] Epidemiology Collaboration (CKD-EPI) equation. Calcium 8.8 8.5 - 10.1 mg/dL 07/24/2018 7:43 PM [facility] Specimen Anatomical Collection Method Collection Time Receive d Time (Source) Location / / Volume Laterality Blood specimen 07/24/2018 7:04 PM 019 7:14 (specimen) REGROOVER PM REGROOVER Orion Akers MD LAB - BLOOD ORDERABLES Performing Organization Address City/State/ZIP Code Phon e Number M [facility] [address] [place], [place] [address] [facility] [address] [phone] (ABNORMAL) UA with Microscopic (07/24/2018 7:00 PM REGROOVER) [facility] Method Time Signature Color Urine Yellow 07/24/2018 [facility] 7:36 PM [facility] Appearance Urine Slightly 07/24/2018 [facility] Cloudy 7:36 PM [facility] Glucose Urine Negative NEG^Negat 07/24/2018 [facility] bakari mg/dL 7:36 PM [facility] Bilirubin Urine Negative NEG^Negat 07/24/2018 [facility] bakari 7:36 PM [facility] Ketones Urine 5 (A) NEG^Negat 07/24/2018 [facility] bakari mg/dL 7:36 PM [facility] Specific Esmond 1.028 1.003 - 07/24/2018 [facility] Urine 1.035 7:36 PM [facility] Blood Urine Large (A) NEG^Negat 07/24/2018 [facility] bakari 7:36 PM [facility] pH Urine 5.0 5.0 - 7.0 07/24/2018 [facility] pH 7:36 PM [facility] Protein Albumin Negative NEG^Negat 07/24/2018 [facility] Urine bakari mg/dL 7:36 PM [facility] Urobilinogen Negative 0.0 - 2.0 07/24/2018 [facility] mg/dL mg/dL 7:35 PM [facility] Nitrite Urine Negative NEG^Negat 07/24/2018 [facility] bakari 7:36 PM [facility] Leukocyte Negative NEG^Negat 07/24/2018 [facility] Esterase Urine bakari 7:36 PM [facility] Source Midstream 07/24/2018 [facility] Urine 7:21 PM [facility] WBC Urine 3 0 - 5 07/24/2018 [facility] /HPF 7:36 PM [facility] RBC Urine >182 (H) 0 - 2 07/24/2018 [facility] /HPF 7:36 PM [facility] Squamous 1 0 - 1 07/24/2018 [place] Epithelial /HPF /HPF 7:36 PM [facility] Mucous Urine Present (A) NEG^Negat 07/24/2018 [place] bakari /LPF 7:36 PM [facility] Specimen (Source) Anatomical Collection Method Collection Time Re ceived Time Location / / Volume Laterality Examination of 07/24/2018 7:00 07/24/2018 7:21 midstream urine PM REGROOVER PM REGROOVER specimen (procedure) Orion Akers MD LAB - URINE ORDERABLES Performing Organization Address City/State/ZIP Code Phon e Number M [place] [address] [address] [address] [facility] [address] [phone] documented in this encounter Visit Diagnoses Diagnosis Right kidney stone Calculus of kidney Ureterolithiasis Calculus of ureter documented in this encounter Administered Medications Inactive Administered Medications - up to 3 most recent administrations Medication Order MAR Action Action Date Dose Rate Site 0.9% sodium chloride BOLUS New Bag 07/25/2018 1:49 AM REGROOVER 500 mLs 500 mL/hr Intravenous, 500 mL, [...] mL dextrose PRE-MIX Routine, 2 g, Intravenous, PRE-OP/PRE-KS OCEDURE, Starting on Fri07/25/18 at 1702, For 1 dose, Give first dose within 1 bibi r PRIOR to incision. If patient weight is greater than or equal to 120 kg increase dose to 3 g., Indications: Perioperative Pharmacoprophylaxis, Pre-procedure HYDROmorphone (PF) (DILAUDID) injection 0.2 Given 07/10 12:54 PM REGROOVER 0.2 mg mg 0.2 mg, Intravenous, EVERY [...] over 2-5 minutes. Given 07/25/2018 9:02 AM REGROOVER 0.2 mg Given 07/25/2018 6:23 AM REGROOVER 0.2 mg HYDROmorphone (PF) (DILAUDID) injection 0.5 Given 07/24/2018 9:46 PM REGROOVER 0.5 mg mg 0.5 mg, Intravenous, EVERY 30 MIN PRN, moderate to severe pain, Starting on Fri07/24/18 at 1907, For 3 doses, For ordered IV doses 0.1-4 mg give IV Push undiluted. Administer each 2mg over 2-5 minutes. Given 07/24/2018 8:20 PM REGROOVER 0.5 mg HYDROmorphone (PF) (DILAUDID) injection 0.5 Given 07/24/2018 7:18 PM REGROOVER 0.5 mg mg 0.5 mg, Intravenous, ONCE, On Fri07/24/18 at 1911, For 1 dose, For ordered IV doses 0.1-4 mg give IV Push undiluted. Administer each 2mg over 2-5 minutes. ketorolac (TORADOL) injection 15 mg Given 07/24/2018 7:22 PM REGROOVER 15 mg 15 mg, Intravenous, ONCE, On [...] injection 0.5 mg Given 07/25/2018 11:25 AM REGROOVER 0.5 mg 0.5 mg, Intravenous, EVERY 6 [...] injection 4 mg Given 07/24/2018 7:19 PM REGROOVER 4 mg 4 mg, Intravenous, ONCE, Administer over 2-5 Minutes, On Fri07/24/18 at 1908, For 1 dose, Irritant. For ordered IV doses 0.1-4 mg, give IV Push undiluted over 2-5 minutes. ondansetron (ZOFRAN) injection 4 mg Given 07/25/2018 12:43 PM REGROOVER 4 mg 4 mg, Intravenous, EVERY 6 [...] 0.9% infusion New Bag 07/25/2018 9:01 AM REGROOVER 125 mL/hr at 125 mL/hr, Intravenous, CONTINUOUS, Starting on Fri07/24/18 at 2315, Until 07/25/18 at 1959 Rate/Dose Verify 07/25/2018 8:13 AM REGROOVER 125 mL/hr New Bag 07/24/2018 11:54 PM REGROOVER 125 mL/hr documented in this encounter Active and Recently Administered Medications Times are shown in REGROOVER. Scheduled Medication Order 07/23/2018 07/24/2018 07/25/2018 0.9% [...] (New Bag - Provider: Cj Reyes APRN INSURANCE REPRESENTATIVE)[id number] (Anesthesia Volume Adjustment - Provider: Cj Reyes [...] Depression Total Score: 2 07/18/2017 8:08 AM REGROOVER documented as of this encounter Care Teams Fisheries Specialist Relationship Specialty Start Date End Date Yony Garcia PA-C PCP - Assigned PCP 09/01/16 08/11/18 [id number] SONJA KRAUSE [id number] Erik Rivas PCP - General Family Practice 07/24/[address] [address] Yony Garcia PA-C Assigned PCP 09/01/16 02/05/20 [id number] SONJA KRAUSE [id number] documented as of this encounter
--- OUTSIDE RECORDS SUMMARY | 2022-04-30 09:30 | XMS_ITS | Clinical Summary ---
:1975 Author Organization [place] Address [address] [place] [address] Care Team Providers Name Role Phone Erik [...] 11/09/10 NIL pap (ajk) 11/23/12 [facility]. 12/25/12 [place]= BRIGID 2. Referred to Ob~Egg Processing Supervisor , Dr. Christensen 02/18/13 LEEP= Negative, R/P [...] Comments Blood Pressure 136/92 07/25/2018 5:45 PM TECHNICAL CABLE JOINTER Pulse 72 07/25/2018 5:45 PM TECHNICAL CABLE JOINTER Temperature 36.8 ??C (98.3 ??F) 07/25/2018 5:45 PM TECHNICAL CABLE JOINTER Respiratory Rate 13 07/25/2018 5:45 PM TECHNICAL CABLE JOINTER Oxygen Saturation 99% 07/25/2018 5:45 PM TECHNICAL CABLE JOINTER Inhaled Oxygen Concentration - - Weight 94.8 kg (209 lb) 07/24/2018 6:40 PM TECHNICAL CABLE JOINTER Height 167.6 cm (5' 6) 07/24/2018 11:33 PM TECHNICAL CABLE JOINTER Body Mass Index 33.73 07/24/2018 6:40 PM TECHNICAL CABLE JOINTER Plan of Treatment Health Maintenance Due Date [...] 64 Years) Medical Devices Implanted Type Area Trim Master Operator Device Shelf Model / Identifier Expiration Serial / Date Lot Stent Ureteral Dbl Pigtail Inlay [id number] Stent, Left: CR BARD 04/11/2020 [id number] / Implanted: Qty: 1 on 01/18/2016 by Otoniel Soler MD at [facility] Non-Vasc Ureter [employer] / ular [id number] Explanted Type Area Trim Master Operator Device Shelf Model / Identifier Expiration Serial / Date Lot Stent Ureteral Dbl Pigtail Inlay [id number] Stent, Left: CR BARD 07/05/2020 [id number] / Implanted: Qty: 1 Non-Vasc Ureter [employer] / Explanted: Qty: 1 on 01/18/2016 at [facility] u lar [id number] Insurance Payer Benefit Plan / Group Subscriber ID Effective Phone Addre ss Type Dates PREFERREDONE PREFERREDONE NON [id number] 2017-Pre [phone] [address] [facility] sent [phone] [place] [address] Dariana Valdez Personal/Famil Self 1975 [id number] y (Home) [place] [phone] DARIANA VALDEZ Personal/Famil Self [address] [place] [address] y (Home) [place] [address] Advance Directives For more information, please contact: [phone] Latest Code Status on File Code Status [...] 9:35 AM 01/18/2016 7:42 PM Care Teams Director Hris Relationship Specialty Start Date End Date Erik Rivas PCP - General Family Practice 07/24/18 [facility] [address] [place] [address]
--- OUTSIDE RECORDS SUMMARY | 2022-04-30 09:30 | XMS_ITS | Encounter Summary ---
:1975 Author Organization [place] Address [address] [place] [address] Care Team Providers Name Role Phone Yony Garcia PA-C Unavailable [phone] Erik Rivas Primary Care Provider Yony Garcia PA-C Unavailable [phone] Encounter Details Date Type Department Care Team [...] Depression Total Score: 2 07/18/2017 8:08 AM RESTAURANT MANAGING PARTNER documented as of this encounter Care Teams Dairy Farmer Relationship Specialty Start Date End Date Yony Garcia PA-C PCP - Assigned PCP 09/01/16 08/11/18 [id number] SONJA KRAUSE [id number] Erik Rivas PCP - General Family Practice 07/24/[address] [address] Yony Garcia PA-C Assigned PCP 09/01/16 02/05/20 [id number] SONJA KRAUSE [id number] documented as of this encounter
--- OUTSIDE RECORDS SUMMARY | 2022-04-30 09:30 | XMS_ITS | Encounter Summary ---
:1975 Author Organization [place] Address [address] [facility] [place] [address] Care Team Providers Name Role Phone Yony Garcia PA-C Primary Care Provider [phone] Yony Garcia PA-C Unavailable [phone] Yony Garcia PA-C Unavailable [phone] Reason for Visit Reason Onset Date Comments Medication Refill 06/13/2017 DULoxetine (CYMBALTA ) 60 MG EC capsule Encounter Details Date Type Department Care Team Description 06/12/2017 Refill [facility] Yony Garcia tion [facility] [place] ZENON Hoyos (DULoxetine (CYMBALTA) [address] 60 MG EC capsule) [address] [place] [address] [place], [place] [phone] (Wo rk) [address] [phone] Social History Tobacco Use Types Packs/Day Years [...] follow up . Anais Hinojosa RN -- [facility] NG DRIER Telephone Encounter - Madina Douglas - 06/13/2017 8:43 AM CST Requested Prescriptions Pending Prescriptions Disp Refills ??? DULoxetine (CYMBALTA) 60 MG EC capsule [Pharmacy Med Name: DULOXETINE HCL 60MG CPEP] 90 capsule 1 Last Written Prescription Date: 11/25/16 Last Fill Quantity: 90, # refills: 1 Last Office Visit with [facility] [place], [facility] or [facility] prescribing provider: 01/30/2017 Future Office Visit: [...] days with authorizing provider. See chart review. NG DRIER documented in this encounter Plan of Treatment Not on filedocumented as of this encounter Visit Diagnoses Diagnosis Major depressive disorder, recurrent epi sode, mild (H) Major depressive disorder, recurrent epi sode, mild documented in this encounter Additional Health Concerns Assessment Noted Time PHQ-9 Depression Total Score: 2 11/02/2016 7:17 AM CDT documented as of this encounter Care Teams Middle School Director Relationship Specialty Start Date End Date Yony Garcia, PCP - General Physician Lawyers - 01/30/17 07/23/18 [facility] Yony Garcia, PCP - Assigned PCP 09/01/16 08/11/18 [facility] [id number] [address] [id number] Yony Garcia, Assigned PCP 09/01/16 [facility] [id number] [address]RAUSE [id number] documented as of this encounter
--- OUTSIDE RECORDS SUMMARY | 2022-04-30 09:30 | XMS_ITS | Encounter Summary ---
:1975 Author Organization [place] Address [address] [place] [address]. [place] [address] Care Team Providers Name Role Phone Yony Garcia PA-C Primary Care Provider [phone] Yony Garcia PA-C Unavailable [phone] Yony Garcia PA-C Unavailable [phone] Reason for Visit Reason Onset Date Comments Refill Request 07/17/2017 Encounter Details Date Type Department Care Team Description 07/17/2017 [facility] Yony Garcia, Refill Request Sara YARBROUGH [address] [facility], [address] [place] [address] [address] [place] [address] [place] [address] [phone] Social History Tobacco Use Types Packs/Day Years [...] RN - 07/17/2017 3:47 PM CST Duplicate ERCIAL TITLE EXAMINER Telephone Encounter - Mayela Reese RN - 07/17/2017 3:47 PM COMMERCIAL TITLE EXAMINER Message from [employer]: Original authorizing provider: Z[facility] Balderas VishalCasper Osman would like a refill of the following medications: DULoxetine (CYMBALTA) 60 MG EC capsule [Yony Garcia PA-C] Preferred pharmacy: [facility] SONJA AYALA - [id number] [address] Comment: ERCIAL TITLE EXAMINER documented in this encounter Plan of Treatment Not on filedocumented as of this encounter Visit Diagnoses Diagnosis Major depressive disorder, recurrent epi sode, mild (H) Major depressive disorder, recurrent epi sode, mild documented in this encounter Additional Health Concerns Assessment Noted Time PHQ-9 Depression Total Score: 2 07/18/2017 8:08 AM COMMERCIAL TITLE EXAMINER documented as of this encounter Care Teams Busher Helper Relationship Specialty Start Date End Date Yony Garcia, PCP - General Physician Order Schedule Clerk - 01/30/17 07/23/18 [facility] Yony Garcia, PCP - Assigned PCP 09/01/16 08/11/18 [facility] [id number] [address] [id number] Yony Garcia, Assigned PCP 09/01/16 [facility] [address] [address] [id number] documented as of this encounter
--- OUTSIDE RECORDS SUMMARY | 2022-04-30 09:30 | XMS_ITS | Encounter Summary ---
:1975 Author Organization [place] Address [address] [place] [address] Care Team Providers Name Role Phone Yony Garcia PA-C Unavailable [phone] Erik Rivas Primary Care Provider Yony Garcia PA-C Unavailable [phone] Encounter Details Date Type Department Care Team Description 07/25/2018 Anesthesia Event [facility] Taran Davis [place] [facility] MD Otoniel [address], [place] ANESTHESIA [address] [address] [facility] [phone] [place], [place] [address] Anesthesia Record Procedure Summary Procedure Name Responsible [...] Intravenous; Easy; 4; Cj Reyes, Deanne Toussaint, BUSINESS SOLUTIONS ANALYST laryngeal mask airway; [employer] center of mouth; Equal, clear and bilateral; [employer]; nstockcrna. documented in this encounter Social History [...] Davis MD July 25, 2018 5:43 PM E MAN Anesthesia Preprocedure Evaluation - Patricio Davis MD [...] benefits and alternatives discussed with: Patient or service support representative and Patient.. Patricio Davis MD . E MAN documented in this encounter Miscellaneous Notes Anesthesia Care Transfer Note - Cj Reyes APRN [employer] - 07/25/2018 5:00 PM [facility] MAN Images from the original note were not included. Patient: Dariana Osman Procedure(s): Cystoscopy, right retrograde pylogram, stone basketing Diagnosis: unknown Diagnosis Additional Information: No value filed. Anesthesia Type: General, LMA Note: Airway :Face Mask Patient transferred to:PACU Comments: To PACU, report to RN, oxygen per face mask. Vitals: (Last set prior to Anesthesia Care Transfer) [employer] VITALS 07/25/2018 1629 - 07/25/2018 1700 07/25/2018 Pulse: 82 SpO2: 100 % Resp Rate (observed): 5 (Abnormal) Electronically Signed By: Cj Reyes APRN [employer] July 25, 2018 5:00 PM E MAN documented in this encounter Plan of Treatment [...] dexamethasone (DECADRON) injection Given 07/25/2018 4:32 PM CHUTE MAN 4 mg Intravenous, PRN, Administer over 1 Minutes, Starting on 07/25/18 at 1632, Anesthesia Intra-op fentaNYL (PF) (SUBLIMAZE) injection Given 07/25/2018 4:31 PM CHUTE MAN 100 mcg PRN, Administer over 3-5 Minutes, Starting on 07/25/18 at 1631, Anesthesia Intra-op glycopyrrolate (ROBINUL) injection Given 07/25/2018 4:34 PM CHUTE MAN 0.1 mg PRN, Administer over 1-2 Minutes, Starting on 07/25/18 at 1634, Anesthesia Intra-op lactated ringers infusion New Bag 07/25/2018 4:26 PM CHUTE MAN at 100 mL/hr, Intravenous, CONTINUOUS, Continue until IV catheter is weaned, PACU, Starting on 07/25/18 at 1615, Until 07/25/18 at 1737 lidocaine 1 % injection Given 07/25/2018 4:31 PM CHUTE MAN 50 mg PRN, Starting on 07/25/18 at 1631, Anesthesia Intra-op midazolam (VERSED) injection Given 07/25/2018 4:26 PM CHUTE MAN 2 mg Administer over 2 Minutes, PRN, Starting on 07/25/18 at 1626, Anesthesia Intra-op ondansetron (ZOFRAN) injection Given 07/25/2018 4:38 PM CHUTE MAN 4 mg PRN, Administer over 2-5 Minutes, Starting on 07/25/18 at 1638, Anesthesia Intra-op propofol (DIPRIVAN) injection 10 mg/mL v ial Given 07/25/2018 4:31 PM CHUTE MAN 200 mg PRN, Starting on 07/25/18 at 1631, Anesthesia Intra-op documented in this encounter Additional Health Concerns Assessment Noted Time PHQ-9 Depression Total Score: 2 07/18/2017 8:08 AM CHUTE MAN documented as of this encounter Care Teams Autom[employer] Station Attendant Relationship Specialty Start Date End Date Yony Garcia PA-C PCP - Assigned PCP 09/01/16 08/11/18 [id number] [place] [address] Erik Rivas PCP - General Family Practice 07/24/[address] [address] Yony Garcia PA-C Assigned PCP 09/01/16 02/05/20 [id number] [address] [id number] documented as of this encounter
--- OUTSIDE RECORDS SUMMARY | 2022-04-30 09:30 | XMS_ITS | Encounter Summary ---
:1975 Author Organization [place] Address [address] [facility] [place] [address] Care Team Providers Name Role Phone Yony Garcia PA-C Unavailable [phone] Erik Rivas Primary Care Provider Yony Garcia PA-C Unavailable [phone] Reason for Visit Reason Comments Flank Pain Encounter Details Date Type Department Care Team Description 07/25/2018 Surgery [facility] Angel Bartlett Cystos copy, basketing of [place] PeriOp Servic cindy Conde MD stone from the right [address] ureteral orifice, right [place], [place] [address] retrograde pyelogram, [id number] [place] [address] interpretation of [phone] (Wo rk) fluoroscopic images Surgery Details Date/Time [...] Comments Blood Pressure 129/79 07/25/2018 5:15 PM DIP TANKER Pulse 65 07/25/2018 5:15 PM DIP TANKER Temperature 36.1 ??C (97 ??F) 07/25/2018 4:59 PM DIP TANKER Respiratory Rate 26 07/25/2018 5:15 PM DIP TANKER Oxygen Saturation 100% 07/25/2018 5:15 PM DIP TANKER Inhaled Oxygen Concentration - - Weight 94.8 kg (209 lb) 07/24/2018 6:40 PM DIP TANKER Height 167.6 cm (5' 6) 07/24/2018 11:33 PM DIP TANKER Body Mass Index 33.73 07/24/2018 6:40 PM DIP TANKER documented in this encounter Discharge Summaries Gwendolyn Iyer PA-C - 07/25/2018 10:19 AM CST [facility] Hospitalist Discharge Summary Date of Admission: [...] These results will be followed up by [facility] Course This is a 42 year-old woman [...] minutes discharging this patient. Gwendolyn Iyer PA-C [facility] Physical Exam Vital Signs: Temp: 97.6 [...] mouth At Bedtime Allergies No Known Allergies TANKER documented in this encounter Discharge Instructions Discharge InstructionsHannah Shaffer RN - 07/25/2018 4:49 PM CST CYSTOSCOPY DISCHARGE INSTRUCTIONS [facility] / UROLOGY [facility] [phone] YOU MAY GO BACK TO YOUR NORMAL [...] STILL NOT ABLE TO URINATE (PASS WATER). TANKER documented in this encounter Medications at Time [...] Will be sent to PeriOp with pt. Sales Representative Printing - Pt DOES NOT need an paraprofessional interpreter.. 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 Patient has been oriented to the observation room, bathroom and call light is in place. Discussed discharge goals and expectations with patient/family. TANKER documented in this encounter H&P Notes Andrea Dumas DO - 07/24/2018 11:18 PM CST [facility] History and Physical - Hospitalist Service [...] DO 07/24/2018, 11:14 PM Andrea Dumas DO [facility] Chief Complaint Right flank pain. History [...] 0.90 ANIONGAP 5 RONAK 8.8 GLC 84 TANKER documented in this encounter Consult Notes Angel [...] ELVA Name: DARIANA OSMAN MRN: [id number] Account: [id number] : 1975 Consult Date: 07/25/2018 Document: [id number] TANKER documented in this encounter ED Notes Connie Jerry RN - 07/24/2018 10:27 PM CST [facility] ED Nurse Handoff Report Dariana Osman is a 42 year old female ED Chief complaint: Flank Pain . ED Diagnosis: Final diagnoses: None Allergies: No Known Allergies Code Status: Full Code Activity level - Baseline/Home: Independent. Activity Level - Current: Stand with Assist. Lift room needed: No. Bariatric: No Sales Representative Printing Needed: No Isolation: No. Infection: Not Applicable. [...] on July 24, 2018 at 10:35 PM TANKER Karrie Newton RN - 07/24/2018 6:43 PM CST Patient to ED with right flank pain, radiates to groin. Started today. Has h/o kidney stones. TANKER Orion Akers MD - 07/24/2018 6:12 PM [...] and the provider's statements to me. 07/24/2018 [facility] Orion Akers MD 07/25/18 0044 TANKER documented in this encounter Miscellaneous Notes Op Note - Angel Bartlett MD - 07/25/2018 4:49 PM CST Procedure Date: 07/25/2018 SURGEON: Angel Bartlett MD PREOPERATIVE DIAGNOSIS: Right ureteral stone. POSTOPERATIVE DIAGNOSIS: Right ureteral stone. PROCEDURE PERFORMED: Cystoscopy, basketing of stone from the right ureteral orifice, right retrograde pyelogram, interpretation of fluoroscopic images, ANESTHESIA: General. COMPLICATIONS: None. INDICATIONS FOR PROCEDURE: aDriana Osman is a 42-year-old female with a [...] The procedure began by introducing a 22 Micronesian rigid cystoscope through the urethra into the [...] MD MT: RONDA Name: DARIANA OSMAN Account: [id number] : 1975 Procedure Date: 07/25/2018 Document: [id number] TANKER Plan of Care - Tobi Burgos RN - 07/25/2018 12:46 PM CST PRIMARY DIAGNOSIS: ACUTE RENAL COLIC OUTPATIENT/OBSERVATION GOALS TO BE MET BEFORE DISCHARGE 1. Pain Status: Improved but still requiring IV narcotics. 2. Tolerating adequate PO diet: NPO 3. Surgical Intervention planned: Yes 4. Cleared by consultants (if involved): No 5. Return to near baseline physical activity: Yes Air Antisubmarine Officer Nurse Safe discharge environment identified: Yes Barriers [...] met and patient is ready for discharge. TANKER Plan of Care - Tobi Burgos RN [...] Return to near baseline physical activity: Yes Air Antisubmarine Officer Nurse Safe discharge environment identified: Yes Barriers [...] met and patient is ready for discharge. TANKER Plan of Care - Connie Jerry RN [...] ind for activity - up ad praveen Air Antisubmarine Officer Nurse Safe discharge environment identified: Yes Barriers [...] sediment noted, IVF, urology in AM, NPO TANKER Plan of Care - Connie Jerry RN [...] ind for activity - up ad praveen Air Antisubmarine Officer Nurse Safe discharge environment identified: Yes Barriers [...] strain urine, IVF, urology in AM, NPO TANKER Pharmacy-Admission Medication History - Vera Duvall [facility] - 07/24/2018 11:07 PM CST .Admission medication history interview status for this patient is complete. See [facility] admission navigator for allergy information, prior to admission medications and immunization status. Medication history interview source(s):Patient Medication history resources (including written lists, pill bottles, clinic record):None Primary pharmacy: Not ID'd Changes made to STALLION MANAGER medication list: Added: None Deleted: None Changed: [...] Bedtime 07/23/2018 at HS Yes Reported, Patient TANKER documented in this encounter Plan of Treatment Not on filedocumented as of this encounter Procedures Procedure Name Priority Date/Time Associated Comments Diagnosis SURGICAL PATHOLOGY Routine 07/25/2018 4:54 PM Res ults for this EXAM DIP TANKER procedure are i n the results section. STONE ANALYSIS Routine 07/25/2018 4:54 PM Right kidney stone R esults for this DIP TANKER procedure are i n the results section. XR SURGERY TAMMY Routine 07/25/2018 4:50 PM Result s for this FLUORO LESS THAN 5 DIP TANKER procedure are in MIN W STILLS the results section. CYSTOSCOPY, WITH 07/25/2018 4:16 PM unknown RETROGRADE PYELOGRAM DIP TANKER AND CALCULUS REMOVAL BASIC METABOLIC PANEL Routine 07/25/2018 5:55 AM Right kidney stone Results for this DIP TANKER procedure are i n the results section. CT ABDOMEN PELVIS W/O STAT 07/24/2018 7:55 PM Results for this CONTRAST DIP TANKER procedure are i n the results section. BASIC METABOLIC PANEL STAT 07/24/2018 7:04 PM Results for this DIP TANKER procedure are i n the results section. ROUTINE UA WITH STAT 07/24/2018 7:00 PM Result s for this MICROSCOPIC DIP TANKER procedure are i n the results section. documented in this encounter Results Surgical pathology exam (07/25/2018 4:54 PM DIP TANKER) Component Value Ref Test Analysis Performed At [facility] Range Method Time Signature Copath Report Patient Name: EDELEN, DARIANA CAMILA COPATH MR#: [id number] Specimen #: [id number] Collected: 07/25/2018 Received: 07/27/2018 Reported: 07/27/2018 12:02 [...] of this testing was completed at the [facility], with the professional compo nent performed at the [facility], [address] [place] [address] ??[phone] ([phone]) CPT Codes: A: 84453-SU COLLECTION SITE: Client: [facility] Location: RHPRE (R) Specimen Anatomical Collection Method Collection Time Receive d Time (Source) Location / / Volume Laterality 07/25/2018 4:54 PM 9 8:00 DIP TANKER AM DIP TANKER Andrea SHETTY - BELEANN AP Performing Organization Address City/State/ZIP Code Phon e Number COPATH Stone analysis (07/25/2018 4:54 PM DIP TANKER) [facility] Method Time Signature Stone SEE NOTE 07/31/2018 [place] Composition 9:30 AM [facility] [...] omposition determined by FTIR analysis. Performed by [facility], [address] [place] [id number] [email or web address], Oswaldo Pierson MD, Lab. Director Calculi Number 1 07/31/2018 9:30 AM DIP TANKER [facility] Calculi Size 1 to 4 mm 07/31/2018 9:30 AM DIP TANKER [facility] Calculi Description SEE NOTE 07/31/2018 9:30 AM C [facility] Comment: (Note) Specimen consists of a single, small, brown/sanchez, irregular calculus. Stone Mass 18 mg 07/31/2018 9:[address] [facility] Specimen (Source) Anatomical Collection Method Collection Time Re ceived Time Location / / Volume Laterality Calculus specimen STRUCTURE OF RIGHT 07/25/2018 4:54 P M (specimen) URETER / Unknown DIP TANKER Angel Bartlett MD LAB - BODY FLUIDS ORDERABLES Performing Organization Address City/State/ZIP Code Phon e Number M [facility] [address] [address] [facility] [address] [phone] XR Surgery TAMMY L/T 5 Min Fluoro w Stills (07/25/2018 4:50 PM DIP TANKER) Anatomical Region Laterality Modality Abdomen/Pelvis Radio Fluoroscopy Specimen (Source) Anatomical Location Collection Method / Collectio n Time Received Time / Laterality Volume Impressions 07/25/2018 5:22 PM DIP TANKER IMPRESSION: Single provided image of retrograde ureterogram without significant hydronephrosis. Filling defe ct in the distal ureter presumably represents an air bubble. Ple ase see operative report for further details. ALLAN HANNA MD Narrative 07/25/2018 5:22 PM DIP TANKER SURGERY C-ARM FLUOROSCOPY LESS THAN 5 MINUTES WITH STILLS ??07/25/2018 4:50 PM COMPARISON: 01/18/2016. HISTORY: CT abdomen pelvis 07/24/2018. NUMBER OF IMAGES ACQUIRED: 1 VIEWS: 1 FLUOROSCOPY TIME: .01 minutes. Procedure Note Allan Hanna MD - 07/25/2018 SURGERY C-ARM FLUOROSCOPY LESS THAN 5 [place] NUTES WITH STILLS 07/25/2018 4:50 PM COMPARISON: [...] (ABNORMAL) Basic metabolic panel (07/25/2018 5:55 AM [facility]) athologist Signature Sodium 142 133 [...] Anion Gap 3 3 - 14 07/25/2018 [facility] mmol/L 6:29 AM [facility] Glucose 99 70 - 99 07/25/2018 [facility] mg/dL 6:29 AM [facility] Urea Nitrogen 9 7 - 30 07/25/2018 [facility] mg/dL 6:29 AM [facility] Creatinine 0.80 0.52 - 07/25/2018 [facility] 1.04 mg/dL 6:29 AM [facility] GFR Estimate >90 >60 07/25/2018 [place] mL/min/{1. 6:29 AM [facility] 73_m2} HOSPITAL Comment: Non GFR Calc Starting 05/26/2018, serum creatinine ba sed estimated GFR (eGFR) will be calculated using the Chronic Kidney Dise ase Epidemiology Collaboration (CKD-EPI) equation. GFR Estimate If >90 >60 mL/min/{1.73_m2} 07/25/2018 6: [address] [facility] Comment: GFR Calc Starting 05/26/2018, serum creatinine ba sed estimated GFR (eGFR) will be calculated using the Chronic Kidney Dise ase Epidemiology Collaboration (CKD-EPI) equation. Calcium 7.5 (L) 8.5 - 10.1 mg/dL 07/25/2018 6:29 AM [facility] Specimen Anatomical Collection Method Collection Time Receive d Time (Source) Location / / Volume Laterality Blood specimen 07/25/2018 5:55 AM 019 5:56 (specimen) DIP TANKER AM DIP TANKER nAdrea Dumas DO LAB - BLOOD ORDERABLES Performing Organization Address City/State/ZIP Code Phon e Number [address] [place] [address] [address] [place], [place] [address] [phone] [facility] [address] [place], [place] [address] [place] [address] CT Abdomen Pelvis w/o Contrast (07/24/2018 7:55 PM DIP TANKER) Anatomical Region Laterality Modality Abdomen/Pelvis, SUBRAD CT BODY, UMP CT ABDOMEN PELVIS, Computed Tomography RAD CT Specimen (Source) Anatomical Location Collection Method / Collectio n Time Received Time / Laterality Volume Impressions 07/24/2018 10:19 PM DIP TANKER IMPRESSION: 1. 3 mm distal right ureter stone with o bstruction. 2. Small left renal angiomyolipoma. MANUEL ALMAZAN MD Narrative 07/24/2018 10:[address] ABDOMEN/PELVIS WITHOUT CONTRAST July 24, 2018 [...] ORDERABLES Basic metabolic panel (07/24/2018 7:04 PM [facility]) athologist Signature Sodium 134 133 - 144 07/24/2018 [facility] mmol/L 7:37 PM [facility] Potassium 3.8 3.4 - 5.3 07/24/2018 [facility] mmol/L 7:37 PM [facility] Chloride 104 94 - 109 07/24/2018 [facility] mmol/L 7:37 PM [facility] Carbon Dioxide 25 20 - 32 07/24/2018 [facility] mmol/L 7:43 PM [facility] Anion Gap 5 3 - 14 07/24/2018 [facility] mmol/L 7:43 PM [facility] Glucose 84 70 - 99 07/24/2018 [facility] mg/dL 7:43 PM [facility] Urea Nitrogen 12 7 - 30 07/24/2018 [facility] mg/dL 7:43 PM [facility] Creatinine 0.90 0.52 - 07/24/2018 [facility] 1.04 mg/dL 7:43 PM [facility] GFR Estimate 80 >60 07/24/2018 [place] mL/min/{1. 7:43 PM [facility] 73_m2} HOSPITAL Comment: Non GFR Calc Starting 05/26/2018, serum creatinine ba sed estimated GFR (eGFR) will be calculated using the Chronic Kidney Dise ase Epidemiology Collaboration (CKD-EPI) equation. GFR Estimate If >90 >60 mL/min/{1.73_m2} 07/24/2018 7: [address] [facility] Comment: GFR Calc Starting 05/26/2018, serum creatinine ba sed estimated GFR (eGFR) will be calculated using the Chronic Kidney Dise ase Epidemiology Collaboration (CKD-EPI) equation. Calcium 8.8 8.5 - 10.1 mg/dL 07/24/2018 7:43 PM [facility] Specimen Anatomical Collection Method Collection Time Receive d Time (Source) Location / / Volume Laterality Blood specimen 07/24/2018 7:04 PM 019 7:14 (specimen) DIP TANKER PM DIP TANKER Orion Akers MD LAB - BLOOD ORDERABLES Performing Organization Address City/State/ZIP Code Phon e Number [place] [address] [address] [facility] [address] [phone] (ABNORMAL) UA with Microscopic (07/24/2018 7:00 PM DIP TANKER) [facility] Method Time Signature Color Urine Yellow 07/24/2018 [facility] 7:36 PM [facility] Appearance Urine Slightly 07/24/2018 [facility] Cloudy 7:36 PM [facility] Glucose Urine Negative NEG^Negat 07/24/2018 [place] mg/dL 7:36 PM [facility] Bilirubin Urine Negative NEG^Negat 07/24/2018 [facility] bakari 7:36 PM [facility] Ketones Urine 5 (A) NEG^Negat 07/24/2018 [place] mg/dL 7:36 PM [facility] Specific [place] 1.028 1.003 - 07/24/2018 [place] Urine 1.035 7:36 PM [facility] Blood Urine Large (A) NEG^Negat 07/24/2018 [facility] bakari 7:36 PM [facility] pH Urine 5.0 5.0 - 7.0 07/24/2018 [place] pH 7:36 PM [facility] Protein Albumin Negative NEG^Negat 07/24/2018 [place] Urine [place] mg/dL 7:36 PM [facility] Urobilinogen Negative 0.0 - 2.0 07/24/2018 [place] mg/dL mg/dL 7:35 PM [facility] Nitrite Urine Negative NEG^Negat 07/24/2018 [place] 7:36 PM [facility] Leukocyte Negative NEG^Negat 07/24/2018 [place] Esterase Urine [place] 7:36 PM [facility] Source Midstream 07/24/2018 [place] Urine 7:21 PM [facility] WBC Urine 3 0 - 5 07/24/2018 [facility] /HPF 7:36 PM [facility] RBC Urine >182 (H) 0 - 2 07/24/2018 [facility] /HPF 7:36 PM [facility] Squamous 1 0 - 1 07/24/2018 [place] Epithelial /HPF /HPF 7:36 PM [facility] Mucous Urine Present (A) NEG^Negat 07/24/2018 [place] /LPF 7:36 PM [facility] Specimen (Source) Anatomical Collection Method Collection Time Re ceived Time Location / / Volume Laterality Examination of 07/24/2018 7:00 07/24/2018 7:21 midstream urine PM DIP TANKER PM DIP TANKER specimen (procedure) Orion Akers MD LAB - URINE ORDERABLES Performing Organization Address City/State/ZIP Code Phon e Number M [facility] [address] [address] [facility] [address] [phone] documented in this encounter Visit Diagnoses Not on filedocumented in this encounter Administered Medications Inactive Administered Medications - up to 3 most recent administrations Medication Order MAR Action Action Date Dose Rate Site 0.9% sodium chloride BOLUS New Bag 07/25/2018 1:49 AM DIP TANKER 500 mLs 500 mL/hr Intravenous, 500 mL, [...] mL dextrose PRE-MIX Routine, 2 g, Intravenous, PRE-OP/PRE-OH OCEDURE, Starting on Fri07/25/18 at 1702, For 1 dose, Give first dose within 1 bibi r PRIOR to incision. If patient weight is greater than or equal to 120 kg increase dose to 3 g., Indications: Perioperative Pharmacoprophylaxis, Pre-procedure HYDROmorphone (PF) (DILAUDID) injection 0.2 Given 07/10 12:54 PM DIP TANKER 0.2 mg mg 0.2 mg, Intravenous, EVERY [...] over 2-5 minutes. Given 07/25/2018 9:02 AM DIP TANKER 0.2 mg Given 07/25/2018 6:23 AM DIP TANKER 0.2 mg HYDROmorphone (PF) (DILAUDID) injection 0.5 Given 07/24/2018 9:46 PM DIP TANKER 0.5 mg mg 0.5 mg, Intravenous, EVERY 30 MIN PRN, moderate to severe pain, Starting on Fri07/24/18 at 1907, For 3 doses, For ordered IV doses 0.1-4 mg give IV Push undiluted. Administer each 2mg over 2-5 minutes. Given 07/24/2018 8:20 PM DIP TANKER 0.5 mg HYDROmorphone (PF) (DILAUDID) injection 0.5 Given 07/24/2018 7:18 PM DIP TANKER 0.5 mg mg 0.5 mg, Intravenous, ONCE, On Fri07/24/18 at 1911, For 1 dose, For ordered IV doses 0.1-4 mg give IV Push undiluted. Administer each 2mg over 2-5 minutes. iopamidol 61% (ISOVUE Given 07/25/2018 4:51 PM 15 ml given Operative 300) 50 mL + sterile DIP TANKER Site /Surgical Site water for irrigation 50 mL PRN, Starting on 07/25/18 at 1651, Intra-procedure ketorolac (TORADOL) injection 15 mg Given 07/24/2018 7:22 PM DIP TANKER 15 mg 15 mg, Intravenous, ONCE, On [...] injection 0.5 mg Given 07/25/2018 11:25 AM DIP TANKER 0.5 mg 0.5 mg, Intravenous, EVERY 6 [...] injection 4 mg Given 07/24/2018 7:19 PM DIP TANKER 4 mg 4 mg, Intravenous, ONCE, Administer over 2-5 Minutes, On Fri07/24/18 at 1908, For 1 dose, Irritant. For ordered IV doses 0.1-4 mg, give IV Push undiluted over 2-5 minutes. ondansetron (ZOFRAN) injection 4 mg Given 07/25/2018 12:43 PM DIP TANKER 4 mg 4 mg, Intravenous, EVERY 6 [...] 4:52 PM 200 mLs Operative Site/Surgical irrigation DIP TANKER Site PRN, Starting on 07/25/18 at 1652, Intra-procedure sodium chloride 0.9% infusion New Bag 07/25/2018 9:01 AM DIP TANKER 125 mL/hr at 125 mL/hr, Intravenous, CONTINUOUS, Starting on Fri07/24/18 at 2315, Until 07/25/18 at 1959 Rate/Dose Verify 07/25/2018 8:13 AM DIP TANKER 125 mL/hr New Bag 07/24/2018 11:54 PM DIP TANKER 125 mL/hr documented in this encounter Active and Recently Administered Medications Times are shown in DIP TANKER. Scheduled Medication Order 07/23/2018 07/24/2018 07/25/2018 0.9% [...] Depression Total Score: 2 07/18/2017 8:08 AM DIP TANKER documented as of this encounter Care Teams Wheel Buffer Relationship Specialty Start Date End Date Yony Garcia PA-C PCP - Assigned PCP 09/01/16 08/11/18 [id number] [place] [address] Erik Rivas PCP - General Family Practice 07/24/[address] [address] Yony Garcia PA-C Assigned PCP 09/01/16 02/05/20 [id number] [address] [place] [id number] documented as of this encounter
--- OUTSIDE RECORDS SUMMARY | 2022-04-30 09:30 | XMS_ITS | Encounter Summary ---
:1975 Author Organization [place] Address [address] [facility] [place] [address] Care Team Providers Name Role Phone Yony Garcia PA-C Primary Care Provider [phone] Yony Garcia PA-C Unavailable [phone] Yony Garcia PA-C Unavailable [phone] Reason for Visit Reason Onset Date Comments update health information 09/24/2017 Encounter Details Date Type Department Care Team Description 09/24/[address] [facility] Yony Garcia update health Clinic [place] [facility]oyos information [facility], [address] [place] [address] [address] [place] [address] [place], [place] [phone] (Wo rk) [address] [phone] Social History Tobacco Use Types Packs/Day Years Used Date Smoking Tobacco: Former Smokeless Tobacco: Never Comments: Very Occasional Alcohol Use Standard Drinks/Week Comments Yes 0 (1 standard drink = 0.6 oz pure 1 TIME A a week(1 glass of wine) 1 alcohol) qo weekend Sex Assigned at Date Recorded Not on file documented as of this encounter Miscellaneous Notes Telephone Encounter - Maria Del Rosario, Renu Rodgers RN - 09/24/2017 2:39 PM CDT Pt calling to update med list. Pt states she is only taking the Duloxetine at this time and occasional OTC ibuprofen as needed. Med list updated. Renu Mix, RN documented in this encounter Plan of Treatment Not on filedocumented as of this encounter Visit Diagnoses Not on filedocumented in this encounter Additional Health Concerns Assessment Noted Time PHQ-9 Depression Total Score: 2 07/18/2017 8:08 AM HAT BLOCK [employer]KER documented as of this encounter Care Teams Bale Stacker Relationship Specialty Start Date End Date Yony Garcia, PCP - General Physician Manager Hematology - 01/30/17 07/23/18 [facility] Yony Garcia, PCP - Assigned PCP 09/01/16 08/11/18 [place] [id number] [address]USE [id number] Yony Garcia, Assigned PCP 09/01/16 [place] [address] SONJA [address]RAUSE [id number] documented as of this encounter
--- OUTSIDE RECORDS SUMMARY | 2022-04-30 09:30 | XMS_ITS | Encounter Summary ---
:1975 Author Organization [place] Address [address] [facility] [place] [address] Care Team Providers Name Role Phone Yony Garcia PA-C Primary Care Provider [phone] Yony Garcia PA-C Unavailable [phone] Yony Garcia PA-C Unavailable [phone] Reason for Visit Auth/Cert Specialty Diagnoses / Procedures Referred By Contact Refer red To Contact Surgery Diagnoses post ablation pain syndrome Rh Periop Services Procedures [facility] HYSTERECTOMY TOTAL [address] [place], [place] [address] Phone: Fax: Referral ID Status Reason Start Date Expiration Date Visits Requ ested Visits Authorized [id number] 1 1 Encounter Details Date Type Department Care Team Description 02/05/2017 Anesthesia Event M [facility] Us MD PeriOp Services [facility] ANEST[facility]IA [address] [address] [place], [place] [address] (Wo rk) Anesthesia Record [...] No; 02/05/17 0842 by 02/05/17 0930 by /GI/DIE DRAWING CHECKER Pelvic Akua Jones RN Distel, Shei la lunch truck operator; 16 fr Incision/Surgical Site 02/05/17; 0953; Abdomen; [...] AntlAwilda RN Antl, Debby Rodgers RN nostril; HEAD UP OPERATOR; End of therapy documented in this encounter [...] suspicious for endometriosis SURGEON: Jeimy Christensen DO. Hand Stone Polisher: Allyson Holloway SA, PROCEDURES: 1. Robotic-assisted total [...] (Last set prior to Anesthesia Care Transfer) HEAD UP OPERATOR VITALS 02/05/2017 0925 - 02/05/2017 1003 02/05/2017 [...] documented as of this encounter Care Teams Cobol Programmer Relationship Specialty Start Date End Date Yony Garcia, PCP - General Physician Hand Stone Polisher - 01/30/17 07/23/18 [facility] Yony Garcia, PCP - Assigned PCP 09/01/16 08/11/18 [facility] [address] [address] KRAUSE [id number] Yony Garcia, Assigned PCP 09/01/16 [facility] [address] [address] [place] [id number] documented as of this encounter
--- OUTSIDE RECORDS SUMMARY | 2022-04-30 09:31 | XMS_ITS | Encounter Summary ---
:1975 Author Organization [place] Address [address] [facility] [address] Care Team Providers Name Role Phone Esmer Roland MD Primary Care Provider [phone] Yony Garcia PA-C Unavailable [phone] Yony Garcia PA-C Unavailable [phone] Reason for Visit Reason Onset Date Comments Schedule Surgery 12/24/2016 Encounter Details Date Type Department Care Team Description 12/24/[address] [facility] Women's Jeimy Christensen, Schedule Surgery Clinic [place] [address] [place] [address] [facility] [address] [place] [phone] (Wo rk) Social [...] CYSTOSCOPY Date: 02/05/17 Time: 10:15 AM Hospital: [facility] Patient advised of the following: The hospital [...] was placed on the surgery calendar in [place]. Telephone Encounter - Airam Billy - 12/24/2016 3:03 PM CDT Patient prefers to schedule on 02/12, 02/05 or 02/19. Telephone Encounter - Ariam Billy - 12/24/2016 1:19 PM CDT Left message for patient to return the call to discuss possible dates to schedule surgery. Telephone Encounter - Airam Billy - 12/24/2016 10:50 AM CDT Surgeon:JEIMY CHRISTENSEN Assist: Yes Location: [facility] Date/time preference: January if possible, otherwise february [...] documented as of this encounter Care Teams Grease Renderer Relationship Specialty Start Date End Date Esmer Roland MD PCP - General Family Practice 09/21/10 01/29/17 Yony Garcia PA-C PCP - Assigned PCP 09/01/16 08/11/18 [address] SON[address] KRAUSE [id number] Yony Garcia PA-C Assigned PCP 09/01/16 02/05/20 [address] SONJA KRAUSE [id number] documented as of this encounter
--- OUTSIDE RECORDS SUMMARY | 2022-04-30 09:31 | XMS_ITS | Encounter Summary ---
:1975 Author Organization [place] Address [address] [facility] [address] Care Team Providers Name Role Phone Esmer Roland MD Primary Care Provider [phone] Yony Garcia PA-C Unavailable [phone] Yony Garcia PA-C Unavailable [phone] Reason for Visit Reason Comments Consult lower back pain and bloating since last fall--pt have Novasure--still gets period and has sharp pain Encounter Details Date Type Department Care Team Description 12/24/2016 Office Visit [facility] ÁlvaroJeimy ashley Pelvic p ain in female (Primary Dx); [facility] DO Verito S/P endometrial ablation; [place] [address] [address] S Pap smear for cervical cancer screening [address] [place], [place] [address] [address] [place], [place] [phone] [address] (Work) [phone] Social History Tobacco Use Types Packs/Day Years [...] Dr. Fabiana Christensen DO Obstetrics and Gynecology [facility] documented in this encounter Progress Notes [...] behalf by Erika Ruelas, a trained medical assistant. The creation of this document is based the provider's statements to the medical assistant. Rashibelen RosasErikaalyssa Ruelas 10:15 AM, December 24, [...] in this document, created by the medical assistant for me, accurately reflects the services I personally performed and the decisions made by me. I have reviewed and approved this document for accuracy prior to leaving the patient care area. Jeimy Christesnen DO 10:12 AM, 12/24/16 Dr. Jeimy Christensen DO Obstetrics and Gynecology [facility] [place] documented in this encounter Nursing Notes Solange [...] Component Value Ref Test Analysis Performed At [facility] Range Method Time Signature PAP ASC-US (A) COPATH Copath Report COPATH Patient Name: DARIANA OSMAN MR#: [id number] Specimen #: [id number] Collected: 12/24/2016 Received: 12/25/2016 Reported: 12/26/2016 14:50 [...] be valerie ged on the [employer] Slide Staffing Operations Manager. -Transformation zone component present. CYTOLOGIC INTERPRETATION: Epithelial cell abnormality: ??squamous cell: ??atypical squ amous cells-of undetermined significance (ASC-US). Electronically signed out by: Blake Scruggs M.D. Processed and screened at [facility] CLINICAL HISTORY: LMP: 11/17/2016 Ablation, Previous normal pap Date of Last Pap: 07/08/2014, Papanicolaou Test Limitations: ??Cervical cytology is a scre ening test with limited sensitivity; regular screening is critical for cancer prevention; Pap tests are primarily effective for the diagnosis/prevention of squamous cell carcinoma, not adenoca rcinomas or other cancers. TESTING LAB LOCATION: [address] ??[address] COLLECTION SITE: Client: ??[facility] Location: RIOB (R) Specimen Anatomical Collection Method Collection Time Receive d Time (Source) Location / / Volume Laterality 12/24/2016 10:50 12/25/2016 9:34 AM CDT AM CDT Jeimy Christensen DO LAB - [facility]IME CLINICAL SPECIM EN Performing Organization Address City/State/ZIP Code Phon e Number COPATH HPV High Risk Types DNA Cervical (12/24/2016 10:45 AM CDT) Component Value Ref Test Analysis Performed At [facility] Range Method Time Signature HPV 16 DNA Negative [facility] HPV 18 DNA Negative [facility] Other HR HPV Negative [facility] Final This patient's sample is negative for HPV DNA. UNIVERSITY Diagnosis (Note) OF [place] METHODOLOGY: ??The German cheng 4800 system uses automated extraction, MEDICAL simultaneous amplification of HPV (L1 region) and beta-globi n, [facility] followed by ??real time detection of [...] and its performance characteristics determined by the [facility]. It has not been cleared or approved by the FDA. The laboratory is regulated under CLIA as qualified to perform high-complexity testing. This test is used for clinical purp oses. It should not be regarded as investigational or for research. Specimen Cervical Cells CAPULIN Description [id number] [facility] Specimen Anatomical Collection Method Collection Time Receive d Time (Source) Location / / Volume Laterality Cervical Cells 12/24/2016 10:45 7 AM CDT 12:10 PM CDT Jeimy Christensen DO LAB - BLOOD ORDERABLES Performing Organization Address City/State/ZIP Code Phon e Number [facility] [address] [place], [place] [id number] [place] [address] documented in this encounter Visit Diagnoses Diagnosis [...] documented as of this encounter Care Teams Molded Goods Inspector Trimmer Relationship Specialty Start Date End Date Esmer Roland MD PCP - General Family Practice 09/21/10 01/29/17 Yony Garcia PA-C PCP - Assigned PCP 09/01/16 08/11/18 [address] [address] [place] [address] Yony Garcia PA-C Assigned PCP 09/01/16 02/05/20 [address] S[address] KRAUSE [address] documented as of this encounter
--- OUTSIDE RECORDS SUMMARY | 2022-04-30 09:31 | XMS_ITS | Encounter Summary ---
:1975 Author Organization [place] Address [address] [facility] [place] [address] Care Team Providers Name Role Phone Esmer Roland MD Primary Care Provider [phone] Reason for Visit Reason Comments Cystoscopy Stent Removal Encounter Details Date Type Department Care Team Description 02/02/[address] [facility] Otoniel Hernadez, Calc ium urolithiasis (Primary Dx); Urology Clinic [facility]ison BANERJEE Kidney stone [address] [place] [place] [address] [place] [phone] [address] Social History Tobacco Use Types Packs/Day [...] this encounter Results (ABNORMAL) UA without Microscopic [[id number]] (02/02/2016 1:32 PM CDT) Component Value Ref Test Analysis Performed At [facility] Range Method Time Signature Color Urine Red [facility] Appearance Urine Turbid [facility] Glucose Urine Negative NEG [facility] mg/dL [facility] Bilirubin Urine Large NEG [facility] This is an unconfirmed screening test result. A positive result may be false. [facility] Ketones Urine 15 (A) NEG [facility] mg/dL [facility] Specific [place] 1.025 1.003 - [facility] Urine 1.035 UROLOGIC [...] Organization Address City/State/ZIP Code Phon e Number [facility] [address] [place] [address] [address] documented in this encounter Visit Diagnoses Diagnosis Calcium urolithiasis - Primary Urinary calculus, unspecified Kidney stone Calculus of kidney documented in this encounter Additional Health Concerns Assessment Noted Time PHQ-9 Depression Total Score: 5 04/30/2022 7:21 AM MANAGER SUPPLY CHAIN PLANNING documented as of this encounter Care Teams Retail Event Coordinator Relationship Specialty Start Date End Date Esmer Roland MD PCP - General Family Practice 09/21/10 01/29/17 documented as of this encounter
--- OUTSIDE RECORDS SUMMARY | 2022-04-30 09:31 | XMS_ITS | Encounter Summary ---
:1975 Author Organization [place] Address [address] [facility] [place] [address] Care Team Providers Name Role Phone Esmer Roland MD Primary Care Provider [phone] Encounter Details Date Type Department Care Team Description 01/19/2016 Telephone [facility] Kenneth Couch MD [place] [address] [address] [address] [place] [address] [phone] Social History Tobacco Use Types Packs/Day Years [...] she had 4 kidney stones removed! Andreea Rodriguez/Front Of House Manager documented in this encounter Plan of Treatment Not on filedocumented as of this encounter Visit Diagnoses Not on filedocumented in this encounter Additional Health Concerns Assessment Noted Time PHQ-9 Depression Total Score: 4 09/02/2015 7:59 AM CDT documented as of this encounter Care Teams Communications Equipment Operator Relationship Specialty Start Date End Date Esmer Roland MD PCP - General Family Practice 09/21/10 01/29/17 documented as of this encounter
--- OUTSIDE RECORDS SUMMARY | 2022-04-30 09:31 | XMS_ITS | Encounter Summary ---
:1975 Author Organization [place] Address [address] [facility] [place] [address] Care Team Providers Name Role Phone Esmer Roland MD Primary Care Provider [phone] Reason for Visit Reason Onset Date Comments Pain 01/26/2016 stent discomfort Encounter Details Date Type Department Care Team Description 01/26/2016 Telephone [facility] Otoniel Hernadez, Pain (stent discomfort) Urology Clinic Jessenia BANERJEE [address] [place] [address] [place] [phone] [address] (Wo rk) Social History Tobacco Use [...] documented as of this encounter Care Teams Mill Stenciler Relationship Specialty Start Date End Date Esmer Roland MD PCP - General Family Practice 09/21/10 01/29/17 documented as of this encounter
--- OUTSIDE RECORDS SUMMARY | 2022-04-30 09:31 | XMS_ITS | Encounter Summary ---
:1975 Author Organization [place] Address [address] [facility] [place] [address] Care Team Providers Name Role Phone Esmer Roland MD Primary Care Provider [phone] Reason for Visit Reason Comments Hematuria Encounter Details Date Type Department Care Team Description 01/18/2016 Surgery [facility] Tito Marr COMB INED CYSTOSCOPY, [place] [facility] cindy BANERJEE LEFT URETEROSCOPY, [address] [place], [place] [place] [phone] SONJA SWIFT [address] LEFT URETER(S), INSERT [phone] (Wo rk) STENT, balloon dilation Surgery Details [...] [facility] [phone] YOU MAY GO BACK TO YOUR NORMAL [...] Miller MD - 01/18/2016 12:02 PM CDT [facility] History and Physical Hospitalist Date of [...] after OR Amadeo Miller MD, Hospitalist Pager: [phone] Disposition: Expected discharge this afternoon after procedure [...] MD MT: #[id number] Name: DARIANA OSMAN Account: [id number] : 1975 Consult Date: 01/18/2016 Document: [id number] cc: Esmer Marr Jr, MD documented in [...] bathroom, and call light is in place. spinneret person: connie hodge Ernestine Penny RN - 01/18/2016 [...] provider's statements to me. Lor Said 01/18/2016 [facility] EMERGENCY DEPARTMENT Saranya Hicks MD 01/18/16 0845 [...] patient was given Cipro 400 mg IV tombstone erector to the operating room. She was taken to the cystoscopy suite and placed in the supine position. After adequate general laryngeal mask anesthesia, the patient was placed in lithotomy position and her genitalia were prepped and draped enrique sterile fashion. A #22 Macedonian Storz cystoscope with obturator was gently introduced [...] removed the cystoscope and passed a 6.9 Macedonian ureteroscope into the ureter visualized 3 stones [...] Iremoved that stent and passed a 4.7 Macedonian x 26 cm stent, which just reached. [...] MD MT: [id number] Name: DARIANA OSMAN Account: [id number] : 1975 Procedure Date: 01/18/2016 Document: [id number] cc: [facility] Tito Marr Jr, MD Brief Op Note - Tito Marr MD - 01/18/2016 3:48 PM CDT [facility] Brief Operative Note Pre-operative diagnosis: Left ureteral [...] extracted Pharmacy-Admission Medication History - Katheryn Caba [facility] - 01/18/2016 8:57 AM CDT Admission medication history interview status for this patient is complete. See [facility] admission navigator for allergy information, prior to admission medications and immunization status. Medication history interview source(s):Patient Medication history resources (including written lists, pill bottles, clinic record):None Primary pharmacy:[facility] Changes made to RARE/ENDANGERED SPECIES SPECIALIST medication list: Added: --- Deleted: --- Changed: [...] Test Analysis Performed At [facility] Range Method Time Signature Copath Report Patient Name: DARIANA OSMAN MR#: [id number] Specimen #: [id number] Collected: 01/18/2016 Received: 01/18/2016 Reported: 01/18/2016 16:34 [...] microscopic sections were made. CPT Codes: A: 15331-VF TESTING LAB LOCATION: [address] ??[address] COLLECTION SITE: Client: [facility] Location: RHOR (R) Specimen Anatomical Collection Method Collection Time Receive d Time (Source) Location / / Volume Laterality 01/18/2016 3:28 PM 6 3:53 CDT PM CDT Tito Marr MD [facility] Performing Organization Address City/State/ZIP Code Phon e Number COPATH Stone analysis (01/18/2016 3:28 PM CDT) Component Value Ref Test Analysis Performed At [facility] Range Method Time Signature Stone SEE NOTE [place] Composition (Note) [place] Light brown calculus composed [...] composition determined by FTIR analysis. Performed by [facility], [address] [place] [id number] [email or web address], Eduard Rivas MD, Lab. Director Calculi Number 3 [facility] Calculi Size 5 to 9 [place] Unit: [facility] Calculi SEE NOTE [place] Description (Note) [facility] Specimen consists of three, medium, HOSPITAL light brown/dark brown, irregular calculi. Stone Mass 123 mg [facility] Specimen (Source) Anatomical Collection Method Collection Time Re ceived Time Location / / Volume Laterality Calculus specimen LEFT KIDNEY 01/18/2016 3:28 PM (specimen) STRUCTURE / CDT Unknown Tito Marr MD LAB - BODY FLUIDS ORDERABLES Performing Organization Address City/State/ZIP Code Phon e Number M [facility] [address] [phone] [facility] [address] [phone] Abd/pelvis CT no contrast - Stone Protocol [...] athologist Signature Sodium 137 133 - 144 [place] mmol/L [facility] Potassium 3.8 3.4 - 5.3 [place] mmol/L [facility] Chloride 104 94 - 109 [place] mmol/L [facility] Carbon Dioxide 25 20 - 32 [place] mmol/L [facility] Anion Gap 8 3 - 14 [place] mmol/L [facility] Glucose 103 (H) 70 - 99 [place] mg/dL [facility] Urea Nitrogen 10 7 - 30 [place] mg/dL [facility] Creatinine 0.83 0.52 - [place] 1.04 mg/dL [facility] GFR Estimate 77 >60 [place] mL/min/1.7 [facility] m2 [facility] Comment: Non GFR Calc GFR Estimate If Black >90 >60 mL/min/1.7m2 F [facility] GFR Calc HOSP ITAL Calcium 8.5 8.5 - 10.1 mg/dL [facility] Specimen Anatomical Collection Method Collection Time Receive d Time (Source) Location / / Volume Laterality Blood specimen 01/18/2016 7:00 AM 016 7:03 (specimen) CDT AM CDT Saranya Hicks MD LAB - BLOOD ORDERABLES Performing Organization Address City/State/ZIP Code Phon e Number M [facility] [address] [place], [place] [address] [facility] [address] [phone] CBC + differential (01/18/2016 7:00 AM CDT) [facility] gist Method Time Signature WBC 6.5 4.0 - [facility] 11.0 [facility] 10e9/[facility] RBC Count 4.67 3.8 - 5.2 [facility] 10e12/L [facility] Hemoglobin 13.9 11.7 - [place] 15.7 g/dL [facility] Hematocrit 41.9 35.0 - [place] 47.0 % [facility] MCV 90 78 - 100 [facility] MCH 29.8 26.5 - [place] 33.0 pg [facility] MCHC 33.2 31.5 - [place] 36.5 g/dL [facility] RDW 12.6 10.0 - [place] 15.0 % [facility] Platelet Count 271 150 - [address]9/[facility] Diff Method Automated [facility] % Neutrophils 57.5 % [facility] % Lymphocytes 28.5 % [facility] % Monocytes 8.1 % [facility] % Eosinophils 4.0 % [facility] % Basophils 1.4 % [facility] % Immature 0.5 % [facility] Granulocytes [facility] Nucleated RBCs 0 0 /100 [facility] Absolute 3.8 1.6 - 8.3 [facility] Neutrophil 10e9/L [facility] Absolute 1.9 0.8 - 5.3 [facility] Lymphocytes 10e9/L [facility] Absolute 0.5 0.0 - 1.3 [facility] Monocytes 10e9/L [facility] Absolute 0.3 0.0 - 0.7 [facility] Eosinophils 10e9/L [facility] Absolute 0.1 0.0 - 0.2 [facility] Basophils 10e9/L [facility] Abs Immature 0.0 0 - 0.4 [place] Granul[address] [place] [address] Absolute 0.0 [facility] Nucleated RBC [facility] Specimen Anatomical Collection Method Collection Time Receive d Time (Source) Location / / Volume Laterality Blood specimen 01/18/2016 7:00 AM 016 7:03 (specimen) CDT AM CDT Saranya Hicks MD LAB - BLOOD ORDERABLES Performing Organization Address City/State/ZIP Code Phon e Number M [facility] [address] [place], [place] [address] HOSPITAL [facility] [address] [address] [facility] [phone] Urine Culture Aerobic Bacterial (01/18/2016 6:34 AM CDT) Patholo gist Method Time Signature Specimen [facility] Culture Micro No growth INFECTIOUS DISEASE DIAGNOSTIC LABORATORY Micro Report FINAL INFECTIOUS Status 01/19/2016 DISEASE DIAGNOSTIC LABORATORY Specimen Anatomical Collection Method Collection Time Receive d Time (Source) Location / / Volume Laterality 01/18/2016 6:34 AM 6 8:41 CDT AM CDT Tito Marr MD LAB - MICRO GENERAL ORDERABL ES Performing Organization Address City/[facility]/ZIP [facility] Phon e Number INFECTIOUS DISEASES [address] [place] [address] DIAGNOSTIC LABORATORY, [facility] [address] [phone], [facility] [phone] INFECTIOUS DISEASE [address] DIAGNOSTIC LABORATORY HCG qualitative urine (01/18/2016 6:34 AM CDT) P athologist Signature HCG Qual Urine Negative NEG [facility] Specimen Anatomical Collection Method Collection Time Receive d Time (Source) Location / / Volume Laterality Urine specimen URINE SPECIMEN 01/18/2016 6:34 AM 01/17 6:37 (specimen) OBTAINED BY CLEAN CDT AM CDT CATCH PROCEDURE / Unknown Saranya Hicks MD LAB - URINE ORDERABLES Performing Organization Address City/State/ZIP Code Phon e Number [facility] [address] [place], [place] [address] [facility] [address] [phone] [facility] [phone] (ABNORMAL) UA with Microscopic (01/18/2016 6:34 AM CDT) [facility] Method Time Signature Color Urine Bloody [facility] Appearance Urine Turbid [facility] Glucose Urine Negative NEG mg/dL [facility] Bilirubin Urine Negative NEG [facility] Ketones Urine Negative NEG mg/dL [facility] Specific [place] 1.015 1.003 - [place] Urine 1.035 [facility] Blood Urine Large (A) NEG [facility] pH Urine 5.5 5.0 - 7.0 [facility] Protein Albumin 30 (A) NEG mg/dL [facility] Urobilinogen Normal 0.0 - 2.0 [place] mg/dL mg/dL [facility] Nitrite Urine Negative NEG [facility] Leukocyte Negative NEG [facility] Esterase Urine [facility] Source [facility] WBC Urine 36 (H) 0 - 2 [facility] RBC Urine >182 (H) 0 - 2 [facility] Bacteria Urine Few (A) NEG /HPF [facility] Squamous 5 (H) 0 - 1 [facility] Epithelial /HPF /HPF [facility] Mucous Urine Present (A) NEG /LPF [facility] Specimen Anatomical Collection Method Collection Time Receive d Time (Source) Location / / Volume Laterality Urine specimen URINE SPECIMEN 01/18/2016 6:34 AM 01/17 6:37 (specimen) OBTAINED BY CLEAN CDT AM CDT CATCH PROCEDURE / Unknown Saranya Hicks MD LAB - URINE ORDERABLES Performing Organization Address City/State/ZIP Code Phon e Number [address] [place] [address] [place], [place] [address] [facility] [address] [place], [place] [address] [facility] [phone] documented in this encounter Visit Diagnoses Not [...] Pauline Leahy APRN CRNA) 400 mg, Intravenous, RN TELEHEALTH TO [facility] [place] 01/18/16 at 0859, For 1 dose, [...] documented as of this encounter Care Teams Narcotics Detective Relationship Specialty Start Date End Date Esmer Roland MD PCP - General Family Practice 09/21/10 01/29/17 documented as of this encounter
--- OUTSIDE RECORDS SUMMARY | 2022-04-30 09:31 | XMS_ITS | Encounter Summary ---
:1975 Author Organization [place] Address [address] [facility] [place] [address] Care Team Providers Name Role Phone Esmer Roland MD Primary Care Provider [phone] Reason for Visit Reason Onset Date Comments Results 02/27/2016 US results Encounter Details Date Type Department Care Team Description 02/27/2016 Telephone [facility] Yony Garcia Result s (US results) Clinic Sara Hoyos PA-C [address] [place] [address], [address] [place] [address] [address] [place] [address] [place], [place] [phone] (Wo rk) [address] [phone] Social History Tobacco Use Types Packs/Day Years [...] Depression Total Score: 5 04/30/2022 7:21 AM CHILD CARE TEAM LEAD documented as of this encounter Care Teams Collar Shaper Operator Relationship Specialty Start Date End Date Esmer Roland MD PCP - General Family Practice 09/21/10 01/29/17 documented as of this encounter
--- OUTSIDE RECORDS SUMMARY | 2022-04-30 09:31 | XMS_ITS | Encounter Summary ---
:1975 Author Organization [place] Address [facility] [place] [address] Care Team Providers Name Role Phone Esmer Roland MD Primary Care Provider Encounter Details Date Type Department Care Team Description 01/18/2016 Anesthesia Event [facility] Patricio Mccauley MD [facility] ANESTHESIA [address] [place], [place] [phone] PeriOp Services Delmer Berrios, DO [facility] ANESTHESIA [address] [place], [place] [address] [address] [place] [address] Anesthesia Record Procedure Summary Procedure [...] Pauline Leahy, OWEN ferrer, laryngeal mask airway; MECHANICAL APPRENTICE Jose negron APRN Spontaneous ventilation, MECHANICAL APPRENTICE Follows commands, Transported with oxygen, Purposeful movement [...] benefits and alternatives discussed with: Patient or account retention representative.. . documented in this encounter Miscellaneous [...] infusion 400 mg STAT, 400 mg, Intravenous, MEAT PULLER TO O.R., Starting on [place] 01/18/16 at [...] documented as of this encounter Care Teams Security Sales Consultant Relationship Specialty Start Date End Date Esmer Roland MD PCP - General Family Practice 09/21/10 01/29/17 documented as of this encounter
--- OUTSIDE RECORDS SUMMARY | 2022-04-30 09:31 | XMS_ITS | Encounter Summary ---
:1975 Author Organization [place] Address [address] [facility] [place] [address] Care Team Providers Name Role Phone Esmer Roland MD Primary Care Provider [phone] Yony Garcia PA-C Unavailable [phone] Yony Garcia PA-C Unavailable [phone] Reason for Visit Reason Comments Medication Refill DULoxetine (CYMBALTA) 60 MG and 30 MG cap Encounter Details Date Type Department Care Team Description 10/31/2016 Refill [facility] Esmer Roland Medicat ion Refill Clinic Sara Byrd MD (DULoxetine (CYMBALTA) [facility], [address] [place] [address] AVE 60 MG and 30 MG cap) [address] [place] [address] [place], [place] [phone] (Wo rk) [address] [phone] Social History Tobacco Use Types Packs/Day Years [...] Last Office Visit with G, P or [facility] prescribing provider: 02/27/2016 BP Readings from Last [...] documented as of this encounter Care Teams Fruit And Vegetable Parer Relationship Specialty Start Date End Date Esmer Roland MD PCP - General Family Practice 09/21/10 01/29/17 Yony Garcia PA-C PCP - Assigned PCP 09/01/16 08/11/18 [id number] SONJA KRAUSE [id number] Yony Garcia PA-C Assigned PCP 09/01/16 02/05/20 [id number] SONJA KRAUSE [id number] documented as of this encounter
--- OUTSIDE RECORDS SUMMARY | 2022-04-30 09:31 | XMS_ITS | Encounter Summary ---
:1975 Author Organization [place] Address [address] [facility] [address] Care Team Providers Name Role Phone Esmer Roland MD Primary Care Provider [phone] Reason for Visit Reason Onset Date Comments Patient Reminder 08/08/2016 Past due for pap sme ar Encounter Details Date Type Department Care Team Description 08/08/2016 Telephone [place] [facility] Esmer Roland Patient Reminder (Past Clinic Sara Byrd MD due for pap smear) [address] [place] [address], [address] [place] [address] [address] [place] [address] [place], [place] [phone] (Wo rk) [address] [phone] Social History Tobacco Use Types Packs/Day Years [...] her of need for pap and offered [facility] phone number for scheduling. Pt declined phone number and thanked for the call. If no appt within 2 weeks (08/22)17 pt will be considered lost to pap tracking f/u. Yolis Betancourt, Leather Crafter Pap Tracking AULIC PILE HAMMER OPERATOR documented in this encounter Plan of Treatment Not on filedocumented as of this encounter Visit Diagnoses Not on filedocumented in this encounter Additional Health Concerns Assessment Noted Time PHQ-9 Depression Total Score: 5 04/30/2022 7:21 AM HYDRAULIC PILE HAMMER OPERATOR documented as of this encounter Care Teams Crushing Machine Operator Relationship Specialty Start Date End Date Esmer Roland MD PCP - General Family Practice 09/21/10 01/29/17 documented as of this encounter
--- OUTSIDE RECORDS SUMMARY | 2022-04-30 09:31 | XMS_ITS | Encounter Summary ---
:1975 Author Organization [place] Address [address] [place] [address] Care Team Providers Name Role Phone Esmer Roland MD Primary Care Provider [phone] Yony Garcia PA-C Unavailable [phone] Yony Garcia PA-C Unavailable [phone] Reason for Visit Reason Comments Recheck Medication Encounter Details Date Type Department Care Team Description 11/25/2016 Office Visit [facility] Yony Garcia Major depressive disorder, recurrent episode, mild (H) (Primary Dx); Clinic Sara Hoyos PA-C Need for pntsfebszu-psdpoyf-wrrfdwoes (T dap) vaccine [place] [address] [facility], [address] [place] [address] [place], [place] [phone] (Wo rk) [address] [phone] Social History Tobacco Use Types Packs/Day Years [...] - Total Score 2 - 5 PHQ-9 Dominican PHQ-9 Any Language GAD7 Patient here to [...] 30 capsule; Refill: 0 2. Need for cvtlkmyycg-vczizdq-bdkgoueej (Tdap) vaccine - TDAP VACCINE (ADACEL) Yony Garcia PA-C [facility] documented in this encounter Nursing [...] disorder, recurrent epi sode, mild Need for uwjhwcidun-gljifpn-fmwmhkwgh (T dap) vaccine Need for prophylactic vaccination with c ombined azadnlwert-xmelrgp-gvzmpubcg (DTP) vaccine documented in this encounter Additional Health Concerns Assessment Noted Time PHQ-9 Depression Total Score: 2 11/02/2016 7:17 AM CDT documented as of this encounter Care Teams Director Independent Relationship Specialty Start Date End Date Esmer Roland MD PCP - General Family Practice 09/21/10 01/29/17 Yony Garcia PA-C PCP - Assigned PCP 09/01/16 08/11/18 [id number] SONJA KRAUSE [id number] Yony Garcia PA-C Assigned PCP 09/01/16 02/05/20 [id number] SONJA KRAUSE [id number] documented as of this encounter
--- OUTSIDE RECORDS SUMMARY | 2022-04-30 09:31 | XMS_ITS | Encounter Summary ---
:1975 Author Organization [place] Address [address] [facility] [address] Care Team Providers Name Role Phone Yony Garcia PA-C Primary Care Provider [phone] Yony Garcia PA-C Unavailable [phone] Yony Garcia PA-C Unavailable [phone] Reason for Visit Auth/Cert Specialty Diagnoses / Procedures Referred By Contact Refer red To Contact Surgery Diagnoses post ablation pain syndrome Rh Periop Services Procedures DAVINCI HYSTERECTOMY TOTAL [address] [place], [place] [address] Phone: Fax: Referral ID Status Reason Start Date Expiration Date Visits Requ ested Visits Authorized [id number] 1 1 Encounter Details Date Type Department Care Team Description 02/05/2017 Surgery [facility] Jeimy Christensen DAVINCYobani HYSTERECTOMY [place] PeriOp Servic cindy Sellers, TOTAL, cystoscopy, [address] [place] [address] [id number] Surgery Details Date/Time Status Location OR Service [...] Dr. Jeimy Christensen DO Obstetrics and Gynecology [facility] documented in this encounter Discharge Instructions Discharge Andreia Dave RN - 02/05/2017 1:16 PM CDT Follow up in 1-2 weeks Call [phone] or [phone] for appointment Call and ask to be seen or talk to a doctor for the following: (You can go to the ob triage button On answering service line) . Increased bleeding, fever, general unwell feeling or increased pain. Dr. Jeimy Christensen, DO SAND CAR WORKER [facility] GENERAL ANESTHESIA OR SEDATION ADULT DISCHARGE [...] Garcia PA-C - 01/30/2017 8:34 AM CDT [facility], [address] [facility] [address] Dept: [phone] PRE-OP EVALUATION: Today's date: 01/30/2017 Dariana Osman (: 1975) presents for pre-operative evaluation assessment as requested by Dr. Jeimy Christensen. 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 Proposed procedure: davinci hysterectomy total Date [...] 11/09/10 NIL pap (ajk) 11/23/12 ASC-H. 12/25/12 [place]= BRIGID 2. Referred to Ob~Zanjero, Dr. Christensen 02/18/13 LEEP= Negative, R/P pap [...] cardiovascular risks for perioperative complications such as (SD, PE, VFib and 3?? AV Block): No [...] evaluation report is provided to requesting physician. [facility] Preop Guidelines documented in this encounter Nursing [...] suspicious for endometriosis SURGEON: Jeimy Christensen DO. Vocational Adviser: Allyson Holloway SA PROCEDURES: 1. Robotic-assisted total [...] clindamycin preoperatively. A Brock catheter was placed. Hopewell speculum was placed in the patient's vaginal vault. Anterior lip of cervix was grasped with a single-tooth tenaculum, and a kceyep-gh-pfifx suture of 0 monocryl is placed on the anterior lip of the cervix, and then the x-largeVCare manipulator was placed. The bivalve speculum was removed. Attention was turned to the patient's abdomen, where the Emelle clamps were clamped on umbilicus and a [...] then the ports were placed. An air-seal laboratory assistant port was placed in the right [...] tolerated the procedure well. Dr. Jeimy Christensen, SAND CAR WORKER [facility] Brief Op Note - Jeimy Christensen DO - 02/05/2017 9:50 AM CDT [facility] Brief Operative Note Pre-operative diagnosis: post ablation [...] Christensen DO - 02/05/2017 9:48 AM CDT [facility] Brief Operative Note Pre-operative diagnosis: post ablation [...] Component Value Ref Test Analysis Performed At [facility] gist Range Method Time Signature Copath Report Patient Name: DARIANA OSMAN MR#: [id number] Specimen #: [id number] Collected: 02/05/2017 Received: 02/05/2017 Reported: 02/06/2017 11:14 [...] B. Microscopic evaluation performed. CPT Codes: A: 21262-JX6 B: 14871-JW9 TESTING LAB LOCATION: [address] ??[address] COLLECTION SITE: Client: [facility] Location: RHOR (R) Specimen (Source) Anatomical Collection Method Collection Time Re ceived Time Location / / Volume Laterality Tissue specimen UTERUS AND CERVIX, 02/05/2017 8:48 AM (specimen) CS / Unknown CDT Tissue specimen PELVIC WALL 02/05/2017 9:19 AM (specimen) STRUCTURE / CDT Unknown Jeimy Christensen DO LAB - BEAKER AP Performing Organization Address City/[facility]/ZIP [facility] Phon e Number COPATH HCG qualitative urine (02/05/2017 6:15 AM CDT) P athologist Signature HCG Qual Urine Negative NEG^Negati 02/05/2017 [facility] 6:34 AM CDT [facility] Comment: This test is for screening purposes. ??R esults should be interpreted along with the clinical picture. ??Confirmation te sting is available if warranted by ordering [id number], HCG Quantitative Pregna ncy. Specimen Anatomical Collection Method Collection Time Receive d Time (Source) Location / / Volume Laterality Urine specimen URINE SPECIMEN / 02/05/2017 6:15 AM 6:24 (specimen) Unknown CDT AM CDT Claudy Villalobos MD LAB - URINE ORDERABLES Performing Organization Address City/[facility]/ZIP [facility] Phon e Number M [address] [place] [address] documented in this encounter Visit Diagnoses Not [...] 801 (Given - Provider: Clare Das, OWEN RADIATION / CHEMISTRY TECHNICIAN) 2 g, Intravenous, PRE-OP/PRE-PROCEDURE, Starting Fri02/05/17 [...] Awilda Shook, SHAREE)1036 (Given - Provider: Agnieszka Pretty RN)1054 (Given - Provider: Agnieszka Pretty RN)1140 [...] 0.3-0.5 mg 1030 (Given - Provider: Agnieszka Prtety RN)1043 (Given - Provider: Agnieszka Pretty RN)1120 (Given - Provider: Agnieszka Pretty RN) 0.3-0.5 mg, Intravenous, EVERY 10 MIN [place] N, Starting Fri02/05/17 at 1009, Until Fri02/05/17 [...] documented as of this encounter Care Teams Stripe Marker Relationship Specialty Start Date End Date Yony Garcia, PCP - General Physician Vocational Adviser - 01/30/17 07/23/18 [facility] Medical Yony Garcia, PCP - Assigned PCP 09/01/16 08/11/18 [place] [id number] SONJA KRAUSE [id number] Yony Garcia, Assigned PCP 09/01/16 [place] [address] SONJA KRAUSE [id number] documented as of this encounter
--- OUTSIDE RECORDS SUMMARY | 2022-04-30 09:31 | XMS_ITS | Encounter Summary ---
:1975 Author Organization [place] Address [address] [facility] [place] [address] Care Team Providers Name Role Phone Yony Garcia PA-C Primary Care Provider [phone] Yony Garcia PA-C Unavailable [phone] Yony Garcia PA-C Unavailable [phone] Reason for Visit Auth/Cert Specialty Diagnoses / Procedures Referred By Contact Refer red To Contact Surgery Diagnoses post ablation pain syndrome Rh Periop Services Procedures DAVINCI HYSTERECTOMY TOTAL [address] [place] [address] Phone: Fax: Referral ID Status Reason Start Date Expiration Date Visits Requ ested Visits Authorized [id number] 1 1 Encounter Details Date Type Department Care Team Description 02/05/2017 Hospital Encounter [facility] Jeimy Christensen S/ P hysterectomy [place] PreOP/PostOP DO [place] (Primary Dx) [address] [facility] [address] [facility] [address] [facility] [phone] [place] [address] Social History Tobacco Use Types Packs/Day [...] Dr. Jeimy Christensen DO Obstetrics and Gynecology [facility] documented in this encounter Discharge Instructions Discharge InstructionsAndreia Angelo RN - 02/05/2017 1:16 PM CDT Follow up in 1-2 weeks Call [phone] or [phone] for appointment Call and ask to be seen or talk to a doctor for the following: (You can go to the ob triage button On answering service line) . Increased bleeding, fever, general unwell feeling or increased pain. Dr. Jeimy Christensen DO CURRICULUM ADVISORY TEACHER [facility] GENERAL ANESTHESIA OR SEDATION ADULT DISCHARGE [...] Garcia PA-C - 01/30/2017 8:34 AM CDT [address], [address] [facility] [id number] Dept: [phone] PRE-OP EVALUATION: Today's date: 01/30/2017 Dariana Osman (: 1975) presents for pre-operative evaluation assessment as requested by Dr. Jeimy Christensen. 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 Proposed procedure: davinci hysterectomy total Date [...] 11/09/10 NIL pap (ajk) 11/23/12 ASC-H. 12/25/12 [place]= BRIGID 2. Referred to Ob~Mapping Technician, Dr. Christensen 02/18/13 LEEP= Negative, R/P [...] cardiovascular risks for perioperative complications such as ([place], PE, VFib and 3?? AV Block): No [...] suspicious for endometriosis SURGEON: Jeimy Christensen DO. Tunnel Kiln Repairer: Allyson Holloway SA PROCEDURES: 1. Robotic-assisted total [...] clindamycin preoperatively. A Brock catheter was placed. Conger speculum was placed in the patient's vaginal vault. Anterior lip of cervix was grasped with a single-tooth tenaculum, and a cpxpqg-sy-yxbfy suture of 0 monocryl is placed on [...] then the ports were placed. An air-seal certified ophthalmic surgical assistant port was placed in the right [...] the procedure well. Dr. Jeimy Christensen DO CURRICULUM ADVISORY TEACHER [facility] Brief Op Note - Jeimy Christensen DO - 02/05/2017 9:50 AM CDT [facility] Brief Operative Note Pre-operative diagnosis: post [...] Christensen DO - 02/05/2017 9:48 AM CDT [facility] Brief Operative Note Pre-operative diagnosis: post [...] Component Value Ref Test Analysis Performed At [facility] Range Method Time Signature Copath Report Patient Name: DARIANA OSMAN MR#: [id number] Specimen #: [id number] Collected: 02/05/2017 Received: 02/05/2017 Reported: 02/06/2017 11:14 [...] B. Microscopic evaluation performed. CPT Codes: A: 15353-EW8 B: 30960-JM4 TESTING LAB LOCATION: [address] ??[address] COLLECTION SITE: Client: [facility] Location: RHOR (R) Specimen (Source) Anatomical [...] Signature HCG Qual Urine Negative NEG^Negati 02/05/2017 [facility] 6:34 AM CDT [facility] Comment: This test is for screening purposes. ??R esults should be interpreted along with the clinical picture. ??Confirmation te sting is available if warranted by ordering [id number], HCG Quantitative Pregna ncy. Specimen Anatomical Collection Method Collection Time Receive d Time (Source) Location / / Volume Laterality Urine specimen URINE SPECIMEN / 02/05/2017 6:15 AM 6:24 (specimen) Unknown CDT AM CDT Claudy Villalobos MD LAB - URINE ORDERABLES Performing Organization Address City/[facility]/ZIP Code Phon e Number [place] [address] [place] [address] [phone] documented in this encounter Visit Diagnoses Diagnosis [...] (COMPLETED) 801 (Given - Provider: Clare Das, STIFF LEG DERRICK OPERATOR LANDSCAPE ARCHITECT AND PLANNER) 2 g, Intravenous, PRE-OP/PRE-PROCEDURE, Starting Fri02/05/17 at [...] documented as of this encounter Care Teams Contract Sheltered Workshop Supervisor Relationship Specialty Start Date End Date Yony Garcia, PCP - General Physician Tunnel Kiln Repairer - 01/30/17 07/23/18 PA-C Medical Yony Garcia, PCP - Assigned PCP 09/01/16 08/11/18 PA-C [id number] SONJA KRAUSE [id number] Yony Garcia, Assigned PCP 09/01/16 PA-C [id number] SONJA KRAUSE [id number] documented as of this encounter
--- OUTSIDE RECORDS SUMMARY | 2022-04-30 09:31 | XMS_ITS | Encounter Summary ---
:1975 Author Organization [place] Address [address] [place] [address] Care Team Providers Name Role Phone Esmer Roland MD Primary Care Provider [phone] Reason for Visit (Routine) - Closed Specialty Diagnoses / Procedures Referred By Contact Refer red To Contact Radiology / Diagnoses [facility] ORDER, sb SHANIKA - [phone] READ AND CALL: YONY SANDOVAL - [phone] ANGELES JOHANSEN Ultrasound cc Radiology. Procedures US LWR EXT VENOUS DUPLEX LEFT [address] [employer] [address] [place] [address] Phone: Fax: Referral ID Status Reason Start Date Expiration Date Visits Requ ested Visits Authorized [id number] Closed 02/27/2016 02/26/2017 1 1 Encounter Details Date Type Department Care Team Description 02/27/2016 [facility] Left [facility] swelling [place] [facility] [place] [address] [facility] [address] [place], [place] [address] Social History Tobacco Use Types Packs/Day [...] Total Score: 5 04/30/2022 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
--- OUTSIDE RECORDS SUMMARY | 2022-04-30 09:31 | XMS_ITS | Encounter Summary ---
:1975 Author Organization [place] Address [address] [place] [address] Care Team Providers Name Role Phone Esmer Roland MD Primary Care Provider [phone] Yony Garcia PA-C Primary Care Provider [phone] Yony Garcia PA-C Unavailable [phone] Yony Garcia PA-C Unavailable [phone] Reason for Referral NIR[facility] Physical Therapy - Closed Specialty Diagnoses / Procedures Referred By Contact Refer red To Contact Diagnoses Stress incontinence of urine Jeimy Christensen, [facility] DO [employer] [address] [place], [place] [address] [place] [address] Phone: [phone] Referral ID Status Reason Start Date Expiration Date Visits Requ ested Visits Authorized [id number] Closed 12/24/2016 12/24/2017 1 1 Encounter Details Date Type Department Care Team Description 12/24/2016 [facility] Only [facility] Pelvic p ain in female (Primary Dx); [facility] DO [place] Stress incontinence of urine [place] [address] [place], [place] [address] [address] [place], [place] [phone] [address] (Work) [phone] Social History Tobacco Use Types Packs/Day Years [...] Dr. Fabiana Christensen DO Obstetrics and Gynecology [facility] documented in this encounter Progress Notes Jeimy Christensen DO - 12/24/2016 10:24 AM CDT Surgeon:JEIMY CHRISTENSEN Assist: Yes Location: [facility] Date/time preference: January if possible, otherwise february Surgery: Robotic assisted total laparoscopic hysterectomy, cystoscopy. d Length of Surgery: 1.5 hours Diagnosis: Post ablation pain syndrome Anesthesia type: GENERAL Special instructions / equipment: Am admit or same day: SAME DAY Bowel prep: Yes Pre op: PCP Office visit with surgeon prior to surgery: No TRE PROFESSOR documented in this encounter Plan of Treatment [...] Volume Narrative 01/18/2017 12:[address] [facility] Obstetrics & Gynecology [address] [place] [address] ?? ULTRASOUND - PELVIC LICENSING DIRECTOR ?? Referring MD: Jeimy Christensen Primary Clinic: [facility] ? CLINICAL INFORMATION ?? Indications for ultrasound: [...] Jeimy Christensen, DO ?? Obstetrics and Gynecology [facility] Jeimy Christensen DO IMG US ORDERABLES documented [...] documented as of this encounter Care Teams Automatic Machines Supervisor Relationship Specialty Start Date End Date Esmer Roland, PCP - General Family Practice 09/21/10 01/29/17 Yony Garcia, PCP - General Physician [place] Tower Loader - 01/30/17 07/23/18 [facility] Medical Yony Garcia, PCP - Assigned PCP 09/01/16 08/11/18 [facility] [address] SONJA KRAUSE [id number] Yony Garcia, Assigned PCP 09/01/16 [facility] [address] SONJA KRAUSE [phone] documented as of this encounter
--- OUTSIDE RECORDS SUMMARY | 2022-04-30 09:31 | XMS_ITS | Encounter Summary ---
:1975 Author Organization [place] Address [address] [facility] [place] [address] Care Team Providers Name Role Phone Esmer Roland MD Primary Care Provider [phone] Yony Garcia PA-C Unavailable [phone] Yony Garcia PA-C Unavailable [phone] Encounter Details Date Type Department Care Team Description 01/17/2017 Radiant Appointment [facility] Jeimy Christensen pain in Clinic [place] DO [place] female [address] [facility] [phone] Social History Tobacco Use Types Packs/Day Years [...] Laterality Volume Narrative 01/18/2017 12:27 PM CDT [facility] Obstetrics & Gynecology [address] [facility]. [address] [place] [address] ?? ULTRASOUND - PELVIC RUBBER ATTACHER ?? Referring MD: Jeimy Christensen Primary Clinic: [facility] ? CLINICAL INFORMATION ?? Indications for ultrasound: [...] Jeimy Christensen, DO ?? Obstetrics and Gynecology [facility] Jeimy Christensen DO IMG US ORDERABLES documented in this encounter Visit Diagnoses Diagnosis Pelvic pain in female Unspecified symptom associated with fema le genital organs documented in this encounter Additional Health Concerns Assessment Noted Time PHQ-9 Depression Total Score: 2 11/02/2016 7:17 AM CDT documented as of this encounter Care Teams Acid Conditioner Relationship Specialty Start Date End Date Esmer Roland MD PCP - General Family Practice 09/21/10 01/29/17 Yony Garcia PA-C PCP - Assigned PCP 09/01/16 08/11/18 [address] SONJA KRAUSE [address] Yony Garcia PA-C Assigned PCP 09/01/16 02/05/20 [address] SONJA KRAUSE [id number] documented as of this encounter
--- OUTSIDE RECORDS SUMMARY | 2022-04-30 09:31 | XMS_ITS | Encounter Summary ---
:1975 Author Organization [place] Address [address] [place] [address]. [place] [address] Care Team Providers Name Role Phone Esmer Roland MD Primary Care Provider [phone] Reason for Visit Reason Onset Date Comments Refill Request 04/09/2016 duloxetine 30 and 60 Encounter Details Date Type Department Care Team Description 04/09/2016 Telephone [facility] Esmer Roland Refill Request Clinic Sara Byrd MD (duloxetine 30 and 60) [address] [place] [address], [address] [place] [address] [address] [place] [address] [place], [place] [phone] (Wo rk) [address] [phone] Social History Tobacco Use Types Packs/Day Years [...] # refills: 5 Last Office Visit with [facility], P or Health prescribing provider: 09/01/15 Duloxetine 60 Last Written Prescription Date: 09/01/15 Last Fill Quantity: 30, # refills: 5 Last Office Visit with [facility], [facility] or Health prescribing provider: 09/01/15 Kavita Marcus [facility] [phone] documented in this encounter Plan of Treatment Not on filedocumented as of this encounter Visit Diagnoses Diagnosis Major depressive disorder, recurrent epi sode, mild (H) - Primary Major depressive disorder, recurrent epi sode, mild documented in this encounter Additional Health Concerns Assessment Noted Time PHQ-9 Depression Total Score: 5 04/30/2022 7:21 AM CAN CAPPER documented as of this encounter Care Teams Operations Research Analyst Relationship Specialty Start Date End Date Esmer Roland MD PCP - General Family Practice 09/21/10 01/29/17 documented as of this encounter
--- OUTSIDE RECORDS SUMMARY | 2022-04-30 09:31 | XMS_ITS | Encounter Summary ---
:1975 Author Organization [place] Address [address] [place] [address] Care Team Providers Name Role Phone Yony Garcia PA-C Primary Care Provider [phone] Yony Garcia PA-C Unavailable [phone] Yony Garcia PA-C Unavailable [phone] Reason for Visit Reason Comments Pre-Op Exam Encounter Details Date Type Department Care Team Description 01/30/2017 Office Visit [facility] Yony Garcia Preop general physical exam (Primary Dx); Clinic Sara [place]oyos PA-C Abnormal uterine bleeding [place] [address] [facility], [address] [place] [address] [place], [place] [phone] (Wo rk) [address] [phone] Social History Tobacco Use Types Packs/Day Years [...] Garcia PA-C - 01/30/2017 8:34 AM CDT [address], [address] [facility] [address] Dept: [phone] PRE-OP EVALUATION: Today's date: 01/30/2017 Dariana Osman (: 1975) presents for pre-operative evaluation assessment as requested by Dr. Jeimy Christensen. 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 Proposed procedure: davinci hysterectomy total [...] 11/09/10 NIL pap (ajk) 11/23/12 ASC-H. 12/25/12 [place]= BRIGID 2. Referred to Ob~Bluing Oven Tender, Dr. Christensen 02/18/13 LEEP= Negative, R/P pap [...] cardiovascular risks for perioperative complications such as ([place], PE, VFib and 3?? AV Block): No [...] evaluation report is provided to requesting physician. [place] Preop Guidelines documented in this encounter Nursing [...] 11.0 01/30/2017 [facility] 10e9/L 9:21 AM CDT [facility] RBC Count 4.92 3.8 - 5.2 01/30/2017 [facility] 10e12/L 9:21 AM CDT [facility] Hemoglobin 14.8 11.7 - 01/30/2017 [facility] 15.7 g/dL 9:21 AM CDT [facility] Hematocrit 43.4 35.0 - 01/30/2017 [facility] 47.0 % 9:21 AM CDT [facility] MCV 88 78 - 100 01/30/2017 [facility] [place] 9:21 AM CDT [facility] MCH 30.1 26.5 - 01/30/2017 [facility] 33.0 pg 9:21 AM CDT [facility] MCHC 34.1 31.5 - 01/30/2017 [facility] 36.5 g/dL 9:21 AM CDT [facility] RDW 12.6 10.0 - [facility]30[facility]2017 [facility] 15.[facility] % 9:21 AM CDT [facility] Platelet Count 309 150 - 450 01/30/2017 [place] [place] 10e9/L 9:21 AM CDT [facility] Specimen Anatomical Collection Method Collection Time Receive d Time (Source) Location / / Volume Laterality Blood specimen 01/30/2017 9:09 AM 017 9:10 (specimen) CDT AM CDT Yony Garcia PA-C LAB - BLOOD ORDERABLES Performing Organization Address City/State/ZIP Code Phon e Number [facility] [address] [place], [place] [phone] documented in this encounter Visit Diagnoses Diagnosis Preop general physical exam - Primary Other specified pre-operative examinatio n Abnormal uterine bleeding Unspecified disorder of menstruation and other abnormal bleeding from female genital tract documented in this encounter Additional Health Concerns Assessment Noted Time PHQ-9 Depression Total Score: 2 11/02/2016 7:17 AM CDT documented as of this encounter Care Teams Patent Legal Assistant Relationship Specialty Start Date End Date Yony Garcia, PCP - General Physician Feather Stitcher - 01/30/17 07/23/18 PAVictor M Medical Yony Garcia, PCP - Assigned PCP 09/01/16 08/11/18 [facility] [id number] SONJA KRAUSE [id number] Yony Garcia, Assigned PCP 09/01/16 [facility] [address] SONJA KRAUSE [address] documented as of this encounter
--- OUTSIDE RECORDS SUMMARY | 2022-04-30 09:31 | XMS_ITS | Encounter Summary ---
:1975 Author Organization [place] Address [address] [place] [address] Care Team Providers Name Role Phone Esmer Roland MD Primary Care Provider [phone] Reason for Visit Reason Comments Musculoskeletal Problem knee and foot pain Encounter Details Date Type Department Care Team Description 02/27/2016 Office Visit [facility] Yony Garcia eg swelling Clinic [place] ZENON Hoyos (Primary Dx) [address] [address] [facility], [address] [place] [address] [place], [place] [phone] (Wo rk) [address] [phone] Social History Tobacco Use Types Packs/Day Years [...] overuse: YES- walked for 5 days in [facility] Aggravating factors include: walking, overuse and possible high sodium intake ?? Therapies tried and outcome: ice and elevating Dariana is here to discuss swelling in her left leg and foot. This started over the weekend and has not gotten any better so she is here for eval. She had just returned from a work trip in [place] where she was walking a lot, also [...] 225 lb (102.059 kg) Labs reviewed in [facility] Problem list, Medication list, Allergies, and Medical/Social/Surgical histories reviewed in [facility] andupdated as appropriate. ROS: C: [...] Venous Duplex Left; Future Yony Garcia PA-C [facility] documented in this encounter [...] Depression Total Score: 5 04/30/2022 7:21 AM CEO documented as of this encounter Care Teams Oven Baker Relationship Specialty Start Date End Date Esmer Roland MD PCP - General Family Practice 09/21/10 01/29/17 documented as of this encounter
--- OUTSIDE RECORDS SUMMARY | 2022-04-30 09:32 | XMS_ITS | Encounter Summary ---
:1975 Author Organization [place] Address [address] [facility] [place] [address] Care Team Providers Name Role Phone Esmer Roland MD Primary Care Provider [phone] Reason for Visit Reason Onset Date Comments Formulary Issue 09/29/2015 PA REQUIRED FOR DOSI NG ON CYMBALTA 30MG Encounter Details Date Type Department Care Team Description 09/29/2015 Telephone [facility] Esmer Roland Formula ry Issue (PA Clinic Sara Byrd MD REQUIRED FOR DOSING ON [facility], [address] [place] [address] CYMBALTA 30MG) [address] [place] [address] [place], [place] [phone] (Wo rk) [phone] [phone] Social History Tobacco Use Types Packs/Day Years Used Date Smoking Tobacco: Former Smokeless Tobacco: Never Comments: Very Occasional Alcohol Use Standard Drinks/Week Comments Yes 0 (1 standard drink = 0.6 oz pure 1 TIME A a week(1 glass of wine) 1 alcohol) qo weekend Sex Assigned at Date Recorded Not on file documented as of this encounter Miscellaneous Notes Telephone Encounter - Suyapa Terrell RN - 10/09/2015 2:40 PM CDT Fax received from [facility], Duloxetine HCL approved, coverage begins 10/02/15 and ends 10/01/2016. Notified pharmacy. Aide Terrell RN, BSN Telephone Encounter - Deidre Alas - 10/03/2015 9:53 AM CDT No pa needed; We split the rx into two strengths, pt got medication Sorry! Mechelle Telephone Encounter - Mayela Reese RN - 10/02/2015 10:07 AM CDT Form completed and faxed back. Awaiting approval/denial. Mayela Reese RN Telephone Encounter - Mayela Reese RN - 09/29/2015 3:49 PM CDT Called for a prior auth. They are sending a form to me to complete and fax back. Awaiting form. Mayela Reese RN Telephone Encounter - Esmer Roland MD - 09/29/2015 12:21 PM CDT Please start, for chronic pain and severe anxiety and depression Telephone Encounter - Kristine Bermudez - 09/29/2015 12:15 PM CDT A PRIOR AUTH IS REQUIRED FOR THE DOSING OF 3 CAPSULES DAILY ON DARIANA'S CYMBALTA. HER INSURANCE IS [employer] - ID # [id number] - PHONE # IS THANKS! KRISTINE BERMUDEZ [facility] documented in this encounter Plan of Treatment Not on filedocumented as of this encounter Visit Diagnoses Not on filedocumented in this encounter Additional Health Concerns Assessment Noted Time PHQ-9 Depression Total Score: 4 09/02/2015 7:59 AM CDT documented as of this encounter Care Teams Frame And Scrap Crusher Relationship Specialty Start Date End Date Esmer Roland MD PCP - General Family Practice 09/21/10 01/29/17 documented as of this encounter
--- OUTSIDE RECORDS SUMMARY | 2022-04-30 09:32 | XMS_ITS | Encounter Summary ---
:1975 Author Organization [place] Address [address] [place] [address] Care Team Providers Name Role Phone Esmer Roland MD Primary Care Provider [phone] Reason for Visit Reason Comments Urinary Problem Urgent Care sx started this am and has b lood in the urine - may have had mild sx last week Encounter Details Date Type Department Care Team Description 12/16/2015 Office Visit [facility] Urgent Tobi West ulus of kidney (Primary Dx); Care ZENON Maddox Hematuria; [address] [address] [address] Bacteria in urine SONJA Juárez [address] [place], [place] [phone] [address] Social History Tobacco Use Types Packs/Day Years [...] Body Mass Index 36.32 07/20/2015 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 [phone] [employer]. [address] [place] [address], [place] [address]. All rights reserved. This information is not [...] from 04/08/08 Op note on file in [facility] Expand All Collapse All FINAL PREOPERATIVE DIAGNOSIS: ??Left ureteral stone. POSTOPERATIVE DIAGNOSIS: ??Left ureteral stone. ??Ureteral stricture. PROCEDURE: ??Cystoscopy, balloon dilation of ureteral stricture, holmium laser lithotripsy of stone,retrograde pyelogram, left stent. FOUNDATION DRILL OPERATOR HELPER: Patient feels absolutely sure blood is not from FOUNDATION DRILL OPERATOR HELPER source. Denies any vaginal bleeding or spotting. [...] normal. No masses, organomegaly. No CVA tenderness FOUNDATION DRILL OPERATOR HELPER: Normal external female genitalia. No lesions. Normal [...] [facility] GFR Estimate 62 >60 [facility] mL/min/1.7 [facility] L[facility] m2 GFR Estimate If 75 >60 [facility] Black mL/min/1.7 [facility] m2 Calcium 9.2 8.5 - 10.1 [facility] mg/dL [facility]INICS [facility] Comment: Testing performed on Kimmie at [facility] lab. Specimen Anatomical Collection Method Collection Time Receive d Time (Source) Location / / Volume Laterality Blood specimen 12/16/2015 2:27 PM 016 2:33 (specimen) CDT PM CDT Tobi West PA-C LAB - BLOOD ORDERABLES Performing Organization Address City/[facility]/ZIP Code Phon e Number [facility] LACI [address] [place] [address] CBC with platelets differential (12/16/2015 2:27 PM CDT) [facility] gist Method Time Signature WBC 10.2 4.0 - [facility] 11.0 CLINICS 10e9/L [facility] RBC Count 4.79 3.8 - 5.2 [facility] 10e12/L [facility] Hemoglobin 14.4 11.7 - [facility] 15.7 g/dL [facility] Hematocrit 43.5 35.0 - [facility] 47.0 % [facility] MCV 91 78 - 100 [facility] fl [facility] MCH 30.1 26.5 - [facility] 33.0 pg [facility] MCHC 33.1 31.5 - [facility] 36.5 g/dL [facility] RDW 12.8 10.0 - [facility] 15.0 % [facility] Platelet Count 305 150 - 450 [facility] 10e9/L [facility] Diff Method Automated [facility] Method [facility] % Neutrophils 64.9 % [facility] % Lymphocytes 23.8 % [facility] % Monocytes 7.2 % [facility] % Eosinophils 3.5 % [facility] % Basophils 0.6 % [facility] Absolute 6.6 1.6 - 8.3 [facility] Neutrophil 10e9/L [facility] Absolute 2.4 0.8 - 5.3 [facility] Lymphocytes 10e9/L [facility] Absolute 0.7 0.0 - 1.3 [facility] Monocytes 10e9/L [facility] Absolute 0.4 0.0 - 0.7 [facility] Eosinophils 10e9/L [facility] Absolute 0.1 0.0 - 0.2 [facility] Basophils 10e9/L [facility] Specimen Anatomical Collection Method Collection Time Receive d Time (Source) Location / / Volume Laterality Blood specimen 12/16/2015 2:27 PM 016 2:33 (specimen) CDT PM CDT Tobi West PA-C LAB - BLOOD ORDERABLES Performing Organization Address City/[facility]/ZIP Code Phon e Number [facility] [address] [place] [address] [phone] Urine Culture Aerobic Bacterial (12/16/2015 2:02 PM CDT) Component Value Ref Test Analysis Performed At Patholo gist Range Method Time Signature Specimen Midstream Urine [facility] CLINICS [facility] Culture Micro <10,000 colonies/mL mixed [...] MICRO GENERAL ORDERA BLES Performing Organization Address City/[facility]/ZIP Code Phon e Number INFECTIOUS DISEASES [address] [place] [address] DIAGNOSTIC LABORATORY, [facility] LACI [address] [place] [address] [phone] INFECTIOUS DISEASE [address] DIAGNOSTIC LABORATORY (ABNORMAL) Urine Microscopic (12/16/2015 2:02 PM CDT) Analysis Performed At Patho logist Time Signature WBC Urine O - 2 0 - 2 /HPF [facility] RBC Urine >100 (A) 0 - 2 /HPF [facility] Squamous Few FEW /LPF [facility] Epithelial /LPF [facility] Urine Bacteria Urine Few (A) NEG /HPF [facility] Specimen Anatomical Collection Method Collection Time Receive d Time (Source) Location / / Volume Laterality 12/16/2015 2:02 PM 6 2:07 CDT PM CDT Tobi Wset PA-C LAB - URINE ORDERABLES Performing Organization Address City/[facility]/ZIP Code Phon e Number [facility] [address] [place] [address] [phone] (ABNORMAL) UA reflex to Microscopic and Culture (12/16/2015 2:02 PM CDT) Component Value Ref Test Analysis Performed At Patholo gist Range Method Time Signature Color Urine Brown [facility] Appearance Urine Cloudy [facility] Glucose Urine Negative NEG [facility] mg/dL [facility] Bilirubin Urine Small NEG [facility] This is an unconfirmed screening test result. A positive result may be false. CLINICS (A) [facility] Ketones Urine 15 (A) NEG [facility] mg/dL [facility] Specific [place] 1.025 1.003 - [facility] Urine 1.035 [facility] Blood Urine Large (A) NEG [facility] pH Urine 5.5 5.0 - [facility] 7.0 pH [facility] Protein Albumin >=300 (A) NEG [facility] Urine mg/dL [facility] Urobilinogen 0.2 0.2 - [facility] Urine 1.0 CLINICS EU/dL [facility] Nitrite Urine Negative NEG [facility] Leukocyte Negative NEG [facility] Esterase Urine [facility] Source Midstream Urine [facility] Specimen Anatomical Collection Method Collection Time Receive d Time (Source) Location / / Volume Laterality Urine specimen 12/16/2015 2:02 PM 016 2:07 (specimen) CDT PM CDT Tobi West PA-C LAB - URINE ORDERABLES Performing Organization Address City/State/ZIP Code Phon e Number [facility] [address] [place] [address] documented in this encounter Visit Diagnoses Diagnosis Calculus of kidney - Primary Hematuria Hematuria, unspecified Bacteria in urine Other nonspecific finding on examination of urine documented in this encounter Additional Health Concerns Assessment Noted Time PHQ-9 Depression Total Score: 4 09/02/2015 7:59 AM CDT documented as of this encounter Care Teams Cook Helper Dessert Relationship Specialty Start Date End Date Esmer Roland MD PCP - General Family Practice 09/21/10 01/29/17 documented as of this encounter
--- OUTSIDE RECORDS SUMMARY | 2022-04-30 09:32 | XMS_ITS | Encounter Summary ---
:1975 Author Organization [place] Address [address] [facility] [place] [address] Care Team Providers Name Role Phone Esmer Roland MD Primary Care Provider [phone] Encounter Details Date Type Department Care Team Description 04/28/2015 Radiant Appointment [facility] Jeimy Christensen xcessive or frequent Clinic [facility] menstruation [address] [facility] [address] [phone] Social History Tobacco Use Types Packs/Day Years [...] or Results for this TRANSABDOMINAL AND PM KISS MACHINE OPERATOR frequent procedure are in TRANSVAGINAL menstruation the results section. documented in this encounter Results US Pelvic Complete with Transvaginal (07/20/2015 2:26 PM KISS MACHINE OPERATOR) Anatomical Region Laterality Modality Abdomen/Pelvis Ultrasound Specimen (Source) Anatomical Location Collection Method / Collectio n Time Received Time / Laterality Volume Impressions 07/21/2015 6:20 AM KISS MACHINE OPERATOR #: [id number] Study Notes ? Lizzette Bell on 07/20/2015 2:29 PM [facility]etric[facility] Gyne[facility] [address] [place] [address] ULTRASOUND - PELVIC ROLLER MILL OPERATOR Referring MD: Jeimy Christensen Primary Clinic: [facility] CLINICAL INFORMATION Indications for ultrasound: Bleeding/Menses [...] indicated Lois BANERJEE Narrative 07/21/2015 6:20 AM KISS MACHINE OPERATOR Order Jeimy Christensen DO IMG US ORDERABLES documented in this encounter Visit Diagnoses Diagnosis Excessive or frequent menstruation documented in this encounter Care Teams Blind Escort Relationship Specialty Start Date End Date Esmer Roland MD PCP - General Family Practice 09/21/10 01/29/17 documented as of this encounter
--- OUTSIDE RECORDS SUMMARY | 2022-04-30 09:32 | XMS_ITS | Encounter Summary ---
:1975 Author Organization [place] Address [address] [place] [address] Care Team Providers Name Role Phone Esmer Roland MD Primary Care Provider [phone] Encounter Details Date Type Department Care Team Description 07/20/2015 Orders Only [facility] Jeimy Christensen or paco (Primary Women[facility] DO Verito Dx) [place] [address] [place], [place] [address] [address] [place], [place] [phone] [address] (Work) [phone] Social History Tobacco Use Types Packs/Day Years Used Date Smoking Tobacco: Former Smokeless Tobacco: Never Comments: Very Occasional Alcohol Use Standard Drinks/Week Comments Yes 0 (1 standard drink = 0.6 oz pure 1 TIME A a week(1 glass of wine) 1 alcohol) qo weekend Sex Assigned at Date Recorded Not on file documented as of this encounter Progress Notes Jeimy Christensen DO - 07/20/2015 2:18 PM CST Surgeon:JEIMY CHRISTENSEN Assist: Yes, if ruddy available Location: [facility] Date/time preference: September (prefers or ) [...] as of this encounter Visit Diagnoses Diagnosis Tests ordered - Primary Laboratory examination, unspecified documented in this encounter Additional Health Concerns Assessment Noted Time PHQ-9 Depression Total Score: 12 06/17/2015 7:51 AM CS T documented as of this encounter Care Teams International Logistics Manager Relationship Specialty Start Date End Date Esmer Roland MD PCP - General Family Practice 09/21/10 01/29/17 documented as of this encounter
--- OUTSIDE RECORDS SUMMARY | 2022-04-30 09:32 | XMS_ITS | Encounter Summary ---
:1975 Author Organization [place] Address [address] [place] [address]. [place] [address] Care Team Providers Name Role Phone Esmer Roland MD Primary Care Provider [phone] Reason for Visit Reason Onset Date Comments Nurse Advice Line 04/04/2015 edema top of foot an d ankle Encounter Details Date Type Department Care Team Description 04/04/2015 Telephone [facility] Esmer Roland Nurse A dvice Line Clinic Sara Byrd MD (edema top of foot and [facility], [id number] [place] [address] AV ankle) [address] [place] [address] [place], [place] [phone] (Wo rk) [address] [phone] Social History Tobacco Use Types Packs/Day Years [...] coverage. We recommended she contact PCP via [facility]TS for an e-visit. Caller agrees to plan. Amadeo Weiss RN documented in this encounter Plan of Treatment Not on filedocumented as of this encounter Visit Diagnoses Not on filedocumented in this encounter Care Teams Client Relation Specialist Relationship Specialty Start Date End Date Esmer Roland MD PCP - General Family Practice 09/21/10 01/29/17 documented as of this encounter
--- OUTSIDE RECORDS SUMMARY | 2022-04-30 09:32 | XMS_ITS | Encounter Summary ---
:1975 Author Organization [place] Address [facility] [facility] [place] [address] Care Team Providers Name Role Phone Esmer Roland MD Primary Care Provider [phone] Encounter Details Date Type Department Care Team Description 04/04/2015 E-Visit [facility] Yony Garcia (Primary Clinic [place] PA-C Dx) [address] [facility], [address] [place] [address] AVE [address] [place] [address] [place], [place] [phone] (Wo rk) [address] [phone] Social History Tobacco Use Types Packs/Day Years [...] limb documented in this encounter Care Teams Brain Picker Relationship Specialty Start Date End Date Esmer Roland MD PCP - General Family Practice 09/21/10 01/29/17 documented as of this encounter
--- OUTSIDE RECORDS SUMMARY | 2022-04-30 09:32 | XMS_ITS | Encounter Summary ---
:1975 Author Organization [place] Address [address] [place] [address] Care Team Providers Name Role Phone Esmer Roland MD Primary Care Provider [phone] Reason for Visit Reason Comments Hematuria Encounter Details Date Type Department Care Team Description 01/18/[address] [facility] Miguel Ángel Hicks MD [facility] [address] [place] [address] Calculus of kidney and ureter; [place] PreOP/PostOP Amadeo Miller MD [address] [place], [place] [id number] Angiomyolipoma [address] [place] [address] Social History Tobacco Use Types [...] [facility] [phone] YOU MAY GO BACK TO YOUR NORMAL [...] Miller MD - 01/18/2016 12:[address] [facility] History and Physical Hospitalist Date of Admission: [...] after OR Amadeo Miller MD, Hospitalist Pager: [phone] Disposition: Expected discharge this afternoon after procedure [...] #[id number] Name: DARIANA OSMAN MRN: [id number] Account: [id number] : 1975 Consult Date: 01/18/2016 Document: [id number] cc: Esmer Marr Jr, MD documented in [...] bathroom, and call light is in place. 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 Saranya Hicks MD - 01/18/2016 6:30 AM CDT History Chief Complaint: Hematuria HPI Dariaan Osman is a 40 year old female [...] provider's statements to me. Lor Said 01/18/2016 [facility] EMERGENCY DEPARTMENT Saranya Hicks MD 01/18/16 0845 [...] patient was given Cipro 400 mg IV loan documentation specialist to the operating room. She was taken to the cystoscopy suite and placed in the supine position. After adequate general laryngeal mask anesthesia, the patient was placed in lithotomy position and her genitalia were prepped and draped enrique sterile fashion. A #22 Bahamian Storz cystoscope with obturator was gently introduced [...] removed the cystoscope and passed a 6.9 Bahamian ureteroscope into the ureter visualized 3 stones [...] Iremoved that stent and passed a 4.7 Bahamian x 26 cm stent, which just reached. [...] MD MT: [id number]#[id number] Name: DARIANA OSMAN Account: [id number] : 1975 Procedure Date: 01/18/2016 Document: [id number] cc: [facility] Tito Marr Jr, MD Brief Op Note - Tito Marr MD - 01/18/2016 3:48 PM CDT [facility] Brief Operative Note Pre-operative diagnosis: Left [...] status for this patient is complete. See [facility] admission navigator for allergy information, prior to admission medications and immunization status. Medication history interview source(s):Patient Medication history resources (including written lists, pill bottles, clinic record):None Primary pharmacy:[facility] Changes made to OYSTER SHUCKER medication list: Added: --- Deleted: --- Changed: [...] Component Value Ref Test Analysis Performed At [facility] Method Time Signature Copath Report Patient Name: DARIANA OSMAN MR#: [id number] Specimen #: [id number] Collected: 01/18/2016 Received: 01/18/2016 Reported: 01/18/2016 16:34 [...] microscopic sections were made. CPT Codes: A: 35006-PY TESTING LAB LOCATION: [address] ??[address] COLLECTION SITE: Client: [facility] Location: RHOR (R) Specimen Anatomical Collection Method Collection Time Receive d Time (Source) Location / / Volume Laterality 01/18/2016 3:28 PM 6 3:53 CDT PM CDT Tito Marr MD LAB - [facility] Performing Organization Address City/State/ZIP Code Phon e Number [place] Stone analysis (01/18/2016 3:28 PM CDT) Component Value Ref Test Analysis Performed At [facility] Method Time Signature Stone SEE NOTE [place] Composition (Note) [facility] Light brown calculus composed primarily of: HOSPITAL [...] composition determined by FTIR analysis. Performed by [employer], [address] [place] [id number] [email or web address], Eduard Rivas MD, Lab. Director Calculi Number 3 [facility] Calculi Size 5 to 9 [place] Unit: [facility] Calculi SEE NOTE [place] Description (Note) [facility] Specimen consists of three, medium, HOSPITAL light brown/dark brown, irregular calculi. Stone Mass [address] [facility] Specimen (Source) Anatomical Collection Method Collection Time Re ceived Time Location / / Volume Laterality Calculus specimen LEFT KIDNEY 01/18/2016 3:28 PM (specimen) STRUCTURE / CDT Unknown Tito Marr MD LAB - BODY FLUIDS ORDERABLES Performing Organization Address City/State/ZIP Code Phon e Number [facility] [address] [place] [address] [facility] [address] [place], [place] [address] [place] [address] Abd/pelvis CT no contrast - Stone Protocol [...] athologist Signature Sodium 137 133 - 144 [place] mmol/L [facility] Potassium 3.8 3.4 - 5.3 [place] mmol/L [facility] Chloride 104 94 - 109 [place] mmol/L [facility] Carbon Dioxide 25 20 - 32 [place] mmol/L [facility] Anion Gap 8 3 - 14 [place] mmol/L [facility] Glucose 103 (H) 70 - 99 [place] mg/dL [facility] Urea Nitrogen 10 7 - 30 [place] mg/dL [facility] Creatinine 0.83 0.52 - [place] 1.04 mg/dL [facility] GFR Estimate 77 >60 [place] mL/min/1.[address] Comment: Non GFR Calc GFR Estimate If Black >90 >60 mL/min/1.7m2 F [facility] GFR Calc HOSP ITAL Calcium 8.5 8.5 - 10.1 mg/dL [facility] Specimen Anatomical Collection Method Collection Time Receive d Time (Source) Location / / Volume Laterality Blood specimen 01/18/2016 7:00 AM 016 7:03 (specimen) CDT AM CDT Saranya Hicks MD LAB - BLOOD ORDERABLES Performing Organization Address City/State/ZIP Code Phon e Number [place] [address] [address] [place], [place] [address] [facility] [address] [place], [place] [address] [phone] CBC + differential (01/18/2016 7:00 AM CDT) [facility] gist Method Time Signature WBC 6.5 4.0 - [place] 11.[address] RBC Count 4.67 3.8 - 5.2 [place] 10e12/L [facility] Hemoglobin 13.9 11.7 - [place] 15.7 g/dL [facility] Hematocrit 41.9 35.0 - [place] 47.0 % [facility] MCV 90 78 - 100 [facility] MCH 29.8 26.5 - [place] 33.0 pg [facility] MCHC 33.2 31.5 - [place] 36.5 g/dL [facility] RDW 12.6 10.0 - [place] 15.0 % [facility] Platelet Count 271 150 - [address] Diff Method Automated [facility] % Neutrophils 57.5 % [facility] % Lymphocytes 28.5 % [facility] % Monocytes 8.1 % [facility] % Eosinophils 4.0 % [facility] % Basophils 1.4 % [facility] % Immature 0.5 % [place] Granulocytes [facility] Nucleated RBCs 0 0 /100 [facility] Absolute 3.8 1.6 - 8.3 [place] Neutrophil [address] [place] [address] Absolute 1.9 0.8 - 5.3 [place] Lymphocytes [address] [place] [address] Absolute 0.5 0.0 - 1.3 [place] Monocytes [address] [place] [address] Absolute 0.3 0.0 - 0.7 [place] Eosinophils [address] [place] [address] Absolute 0.1 0.0 - 0.2 [place] Basophils [address] [place] [address] Abs Immature 0.0 0 - 0.4 [place] Granulocytes [address] [place] [address] Absolute 0.0 [place] Nucleated RBC [facility] Specimen Anatomical Collection Method Collection Time Receive d Time (Source) Location / / Volume Laterality Blood specimen 01/18/2016 7:00 AM 016 7:03 (specimen) CDT AM CDT Saranya Hicks MD LAB - BLOOD ORDERABLES Performing Organization Address City/State/ZIP Code Phon e Number M [facility] [address] [place], [place] [address] [facility] [address] [place], [place] [address] [phone] Urine Culture Aerobic Bacterial (01/18/2016 6:34 AM CDT) [facility] Method Time Signature Specimen Midstream [facility] Culture Micro No growth INFECTIOUS DISEASE DIAGNOSTIC LABORATORY Micro Report FINAL INFECTIOUS Status 01/19/2016 DISEASE DIAGNOSTIC LABORATORY Specimen Anatomical Collection Method Collection Time Receive d Time (Source) Location / / Volume Laterality 01/18/2016 6:34 AM 6 8:41 CDT AM CDT Tito Marr MD LAB - MICRO GENERAL ORDERABL ES Performing Organization Address City/[facility] Phon e Number INFECTIOUS DISEASES [address] [place] [address] DIAGNOSTIC LABORATORY, [facility] [address] [place], [place] [address], [facility] [phone] INFECTIOUS DISEASE [address] [place] [address], [facility] DIAGNOSTIC LABORATORY HCG qualitative urine (01/18/2016 6:34 AM CDT) athologist Signature HCG Qual Urine Negative NEG [facility] Specimen Anatomical Collection Method Collection Time Receive d Time (Source) Location / / Volume Laterality Urine specimen URINE SPECIMEN 01/18/2016 6:34 AM 01/17 6:37 (specimen) OBTAINED BY CLEAN CDT AM CDT CATCH PROCEDURE / Unknown Saranya Hicks MD LAB - URINE ORDERABLES Performing Organization Address City/[facility]/ZIP [facility] Phon e Number [facility] [address] [place], [place] [address] [facility] [address] [place], [place] [address] [phone] (ABNORMAL) UA with Microscopic (01/18/2016 6:34 AM CDT) [facility] Method Time Signature Color Urine Bloody [facility] Appearance Urine Turbid [facility] Glucose Urine Negative NEG mg/dL [facility] Bilirubin Urine Negative NEG [facility] Ketones Urine Negative NEG mg/dL [facility] Specific [place] 1.015 1.003 - [place] Urine 1.035 [facility] Blood Urine Large (A) NEG [facility] pH Urine 5.5 5.0 - 7.0 [place] pH [facility] Protein Albumin 30 (A) NEG mg/dL [facility] Urobilinogen Normal 0.0 - 2.0 [place] mg/dL mg/dL [facility] Nitrite Urine Negative NEG [facility] Leukocyte Negative NEG [place] Esterase Urine [facility] Source Midstream [facility] WBC Urine 36 (H) 0 - 2 [facility] RBC Urine >182 (H) 0 - 2 [facility] Bacteria Urine Few (A) NEG /HPF [facility] Squamous 5 (H) 0 - 1 [place] Epithelial /HPF /[facility] Mucous Urine Present (A) NEG /LPF [facility] Specimen Anatomical Collection Method Collection Time Receive d Time (Source) Location / / Volume Laterality Urine specimen URINE SPECIMEN 01/18/2016 6:34 AM 01/17 6:37 (specimen) OBTAINED BY CLEAN CDT AM CDT CATCH PROCEDURE / Unknown Saranya Zoey Hicks MD LAB - URINE ORDERABLES Performing Organization Address City/State/ZIP Code Phon e Number [place] [address] [address] [place] [address] [phone] documented in this encounter Visit Diagnoses Diagnosis [...] Pauline Leahy APRN CRNA) 400 mg, Intravenous, PRODUCT SUPPORT REP TO [facility] 01/18/16 at 0859, For 1 dose, [...] documented as of this encounter Care Teams Forging Engineer Relationship Specialty Start Date End Date Esmer Roland MD PCP - General Family Practice 09/21/10 01/29/17 documented as of this encounter
--- OUTSIDE RECORDS SUMMARY | 2022-04-30 09:32 | XMS_ITS | Encounter Summary ---
:1975 Author Organization [place] Address [address] [place] [address] Care Team Providers Name Role Phone Esmer Roland MD Primary Care Provider [phone] Reason for Visit Reason Comments Hospital F/U Encounter Details Date Type Department Care Team Description 10/10[facility]2015 [facility] Fifi Sellers DO (Primary Dx) [address] [address] [phone] Social History Tobacco Use Types Packs/Day Years [...] Body Mass Index 38.19 07/20/2015 1:49 PM CENTERPUNCHER documented in this encounter Patient Instructions Patient InstructionsJeimy Christensen DO - 10/10/2015 1:22 PM CDT Call if pain returns Dr. Jeimy Christensen DO Obstetrics and Gynecology [facility] documented in this encounter Progress [...] soft, non-tender. Incision intact, no erthema, drainage. HEAVY RAIL TRAIN OPERATOR PELVIC: NEGATIVE, normal external genitalia, normal vaginal [...] Dr. Jeimy Christensen DO Obstetrics and Gynecology [facility] documented in this encounter Nursing Notes Anais [...] documented as of this encounter Care Teams Greensman Relationship Specialty Start Date End Date Esmer Roland MD PCP - General Family Practice 09/21/10 01/29/17 documented as of this encounter
--- OUTSIDE RECORDS SUMMARY | 2022-04-30 09:32 | XMS_ITS | Encounter Summary ---
:1975 Author Organization [place] Address [address] [place] [address] Care Team Providers Name Role Phone Esmer Roland MD Primary Care Provider [phone] Reason for Visit Reason Comments Depression Encounter Details Date Type Department Care Team Description 07/21/2015 Office Visit [facility] Esmer Roland epressive Clinic Sara Byrd MD disorder, recurrent [place] [address] episode, mild ([address]) Road, [address] [place] [address] (Primary Dx) [place], [place] [phone] (Wo rk) [address] [phone] Social History Tobacco Use Types Packs/Day Years [...] Comments Blood Pressure 112/80 07/21/2015 11:20 AM SUPERVISOR TYPESETTING Pulse 85 07/21/2015 11:20 AM SUPERVISOR TYPESETTING Temperature 37.2 ??C (98.9 ??F) 07/21/2015 11:20 AM SUPERVISOR TYPESETTING Respiratory Rate 16 07/21/2015 11:20 AM SUPERVISOR TYPESETTING Oxygen Saturation 96% 07/21/2015 11:20 AM SUPERVISOR TYPESETTING Inhaled Oxygen Concentration - - Weight 107.8 kg (237 lb 11.2 oz) 07/21/2015 11:20 AM SUPERVISOR TYPESETTING Height - - Body Mass Index 38.37 07/20/2015 1:49 PM SUPERVISOR TYPESETTING documented in this encounter Progress Notes Esmer [...] - Total Score - - 5 PHQ-9 [place] Islander PHQ-9 Any Language GAD7 ?? Amount of [...] 237 lb (107.502 kg) Labs reviewed in [facility] Problem list, Medication list, Allergies, and Medical/Social/Surgical histories reviewed in [facility] andupdated as appropriate. ROS: C: NEGATIVE for [...] 90 capsule; Refill: 5 Esmer Roland MD [facility] RVISOR TYPESETTING documented in this encounter Plan of Treatment Not on filedocumented as of this encounter Visit Diagnoses Diagnosis Major depressive disorder, recurrent epi sode, mild (H) - Primary Major depressive disorder, recurrent epi sode, mild documented in this encounter Additional Health Concerns Assessment Noted Time PHQ-9 Depression Total Score: 12 06/17/2015 7:51 AM CS T documented as of this encounter Care Teams Cane Piler Relationship Specialty Start Date End Date Esmer Roland MD PCP - General Family Practice 09/21/10 01/29/17 documented as of this encounter
--- OUTSIDE RECORDS SUMMARY | 2022-04-30 09:32 | XMS_ITS | Encounter Summary ---
:1975 Author Organization [place] Address [address] [facility] [place] [address] Care Team Providers Name Role Phone Esmer Roland MD Primary Care Provider [phone] Reason for Visit Reason Comments Minor Procedure endometrial biopsy Encounter Details Date Type Department Care Team Description 07/20/2015 Office Visit [facility] Jeimy Christensen Abnormal uterine [facility] DO [place] bleeding (AUB) [place] [address] (Primary Dx) [address] [place], [place] [address] [address] [place], [place] [phone] [address] (Work) [phone] Social History Tobacco Use Types Packs/Day Years [...] Comments Blood Pressure 124/84 07/20/2015 1:49 PM ADVERTISING PRODUCTION MANAGER Pulse 78 07/20/2015 1:49 PM ADVERTISING PRODUCTION MANAGER Temperature 36.9 ??C (98.5 ??F) 07/20/2015 1:49 PM ADVERTISING PRODUCTION MANAGER Respiratory Rate - - Oxygen Saturation 97% 07/20/2015 1:49 PM ADVERTISING PRODUCTION MANAGER Inhaled Oxygen Concentration - - Weight 109.1 kg (240 lb 9.6 oz) 07/20/2015 1:49 PM ADVERTISING PRODUCTION MANAGER Height 167.6 cm (5' 6) 07/20/2015 1:49 PM ADVERTISING PRODUCTION MANAGER Body Mass Index 38.83 07/20/2015 1:49 PM ADVERTISING PRODUCTION MANAGER documented in this encounter Patient Instructions Patient InstructionsJeimy Christensen DO - 07/20/2015 2:26 PM CST reyna will call you Dr. Jeimy Christensen DO Obstetrics and Gynecology [facility] RTISING PRODUCTION MANAGER documented in this encounter Progress Notes Jeimy [...] Dr. Jeimy Christensen DO Obstetrics and Gynecology [facility] RTISING PRODUCTION MANAGER documented in this encounter Nursing Notes Mary [...] completed using cuff size: everton Diego CMA RTISING PRODUCTION MANAGER documented in this encounter Miscellaneous Notes Addendum Note - Mary Diego CMA - 07/20/2015 2:31 PM ADVERTISING PRODUCTION MANAGER Addended by: MARY DIEGO on: 07/20/2015 02:31 PM Modules accepted: Orders RTISING PRODUCTION MANAGER documented in this encounter Plan of Treatment Not on filedocumented as of this encounter Procedures Procedure Name Priority Date/Time Associated Comments Diagnosis SURGICAL PATHOLOGY Routine 07/20/2015 2:30 PM Abnormal uterine Results for this EXAM ADVERTISING PRODUCTION MANAGER bleeding (AUB) procedure are in the results section. HC ENDOMETRIAL BIOPSY Routine 07/20/2015 2:27 PM Abnormal uter ine W/O CERVICAL DILATION ADVERTISING PRODUCTION MANAGER bleeding (AUB) documented in this encounter Results Surgical pathology exam (07/20/2015 2:30 PM ADVERTISING PRODUCTION MANAGER) Component Value Ref Test Analysis Performed At [facility] Range Method Time Signature Copath Report Patient Name: DARIANA VALDEZ MR#: [id number] Specimen #: [id number] Collected: 07/20/2015 Received: 07/20/2015 [...] Microscopic examination is performed. CPT Codes: A: 72685-WS0 TESTING LAB LOCATION: [address] ??[address] COLLECTION SITE: Client: [facility] Location: [facility] (R) Specimen Anatomical Collection Method Collection Time Receive d Time (Source) Location / / Volume Laterality 07/20/2015 2:30 PM 6 3:46 ADVERTISING PRODUCTION MANAGER PM ADVERTISING PRODUCTION MANAGER Jeimy [facility] Performing Organization Address City/State/ZIP Code Phon e Number [place] documented in this encounter Visit Diagnoses Diagnosis Abnormal uterine bleeding (AUB) - Primar y documented in this encounter Additional Health Concerns Assessment Noted Time PHQ-9 Depression Total Score: 12 06/17/2015 7:51 AM CS T documented as of this encounter Care Teams Plugging Machine Operator Relationship Specialty Start Date End Date Esmer Roland MD PCP - General Family Practice 09/21/10 01/29/17 documented as of this encounter
--- OUTSIDE RECORDS SUMMARY | 2022-04-30 09:32 | XMS_ITS | Encounter Summary ---
:1975 Author Organization [place] Address [address] [facility] [place] [address] Care Team Providers Name Role Phone Esmer Roland MD Primary Care Provider [phone] Encounter Details Date Type Department Care Team Description 07/20/2015 Radiant Appointment [facility] Jeimy Christensen Jamie Sellers, DO [address] [facility] [id number] [place] [address] [address] [place], [place] [address] [address] [place], [place] [phone] [address] (Work) [phone] Social History Tobacco Use Types Packs/Day Years [...] or Results for this TRANSABDOMINAL AND PM CAP COVERER frequent procedure are in TRANSVAGINAL menstruation the results section. documented in this encounter Results US Pelvic Complete with Transvaginal (07/20/2015 2:26 PM CAP COVERER) Anatomical Region Laterality Modality Abdomen/Pelvis Ultrasound Specimen (Source) Anatomical Location Collection Method / Collectio n Time Received Time / Laterality Volume Impressions 07/21/2015 6:20 AM CAP COVERER #: [id number] Study Notes ? Lizzette Bell on 07/20/2015 2:29 PM [facility] Obstetrics & Gynecology [address] [place] [address] ULTRASOUND - PELVIC BEHAVIOR INTERVENTIONIST Referring MD: Jeimy Christensen Primary Clinic: [facility] CLINICAL INFORMATION Indications for ultrasound: Bleeding/Menses [...] indicated Lois BANERJEE Narrative 07/21/2015 6:20 AM CAP COVERER Order Jeimy Christensen DO IMG US ORDERABLES documented in this encounter Visit Diagnoses Not on filedocumented in this encounter Additional Health Concerns Assessment Noted Time PHQ-9 Depression Total Score: 12 06/17/2015 7:51 AM CS T documented as of this encounter Care Teams Fuse Cutter Relationship Specialty Start Date End Date Esmer Roland MD PCP - General Family Practice 09/21/10 01/29/17 documented as of this encounter
--- OUTSIDE RECORDS SUMMARY | 2022-04-30 09:32 | XMS_ITS | Encounter Summary ---
:1975 Author Organization [place] Address [address] [place] [address]. [place] [address] Care Team Providers Name Role Phone Esmer Roland MD Primary Care Provider [phone] Encounter Details Date Type Department Care Team Description 09/26/2015 Hospital Pathology [facility] Results DO [place] [address] [place] [address] (Wo rk) Social History Tobacco Use Types [...] Component Value Ref Test Analysis Performed At [facility] Range Method Time Signature Copath Report Patient Name: DARIANA VALDEZ MR#: [id number] Specimen #: [id number] Collected: 09/26/2015 Received: 09/26/2015 Reported: 09/27/2015 14:08 [...] cyst s. ??A complete lumen is identified. ??Deep Sea Diver sections of e ach tube are submitted in 2 blocks. (Dictated by: Сергей Gonzalez 09/26/2015 01:32 PM) MICROSCOPIC: Microscopic evaluation performed. CPT Codes: A: 32549-AJ8 TESTING LAB LOCATION: [place] [employer] [address] ??[address] COLLECTION SITE: Client: [facility] Location: R548 (F) Specimen Anatomical Collection Method Collection Time Receive d Time (Source) Location / / Volume Laterality 09/26/2015 8:30 AM 6 1:13 CDT PM CDT Jeimy Christensen DO LAB - [facility] Performing Organization Address City/State/ZIP Code Phon e Number [place] documented in this encounter Visit Diagnoses Not on filedocumented in this encounter Additional Health Concerns Assessment Noted Time PHQ-9 Depression Total Score: 4 09/02/2015 7:59 AM CDT documented as of this encounter Care Teams Or Assistant Relationship Specialty Start Date End Date Esmer Roland MD PCP - General Family Practice 09/21/10 01/29/17 documented as of this encounter
--- OUTSIDE RECORDS SUMMARY | 2022-04-30 09:32 | XMS_ITS | Encounter Summary ---
:1975 Author Organization [place] Address [address] [facility] [place] [address] Care Team Providers Name Role Phone Esmer Roland MD Primary Care Provider [phone] Reason for Visit Reason Onset Date Comments Nurse Advice Line 12/18/2015 F/u from visit (H ematuria) Encounter Details Date Type Department Care Team Description 12/18/2015 Telephone [facility] Esmer Roland A dvice Line (F/u Clinic [place] MD Rochelle from visit [facility], [address] [place] [address] SYMONE (Hematuria)) [address] [place] [address] [place], [place] [phone] (Wo rk) [address] [phone] Social History Tobacco Use Types Packs/Day Years [...] documented as of this encounter Care Teams Erp Business Analyst Relationship Specialty Start Date End Date Esmer Roland MD PCP - General Family Practice 09/21/10 01/29/17 documented as of this encounter
--- OUTSIDE RECORDS SUMMARY | 2022-04-30 09:32 | XMS_ITS | Encounter Summary ---
:1975 Author Organization [place] Address [address] [facility] [place] [address] Care Team Providers Name Role Phone Esmer Roland MD Primary Care Provider [phone] Reason for Visit Reason Onset Date Comments Schedule Surgery 07/20/2015 Encounter Details Date Type Department Care Team Description 07/20/2015 Telephone [facility] Women's Jeimy Christensen, Schedule Surgery Clinic [place] [address] [place] [address] [facility] [address] [place] [phone] (Wo rk) Social [...] NOVASURE Date: 09/26/15 Time: 7:30 AM Hospital: [facility] Patient advised of the following: The surgery [...] was placed on the surgery calendar in [place]. J2EE ARCHITECT Telephone Encounter - Airam Billy - 07/20/2015 2:46 PM CST Left message for patient to return the call. Patient will need to schedule a nurse only appointment to sign the Sterilization Consent form. J2EE ARCHITECT Telephone Encounter - Airam Billy - 07/20/2015 2:45 PM CST Surgeon:JEIMY CHRISTENSEN Assist: Yes, if ruddy available Location: [facility] Date/time preference: September (prefers or ) Surgery: Laparoscopic bilateral tubal ligation with salpingectomy, uterine ablation with novasure Please have rep available Length of Surgery: 1.5 hours Diagnosis: Menorrhagia, multiparity desires permanent Anesthesia type: GENERAL Special instructions / equipment: Am admit or same day: SAME DAY Bowel prep: No Pre op: PCP Office visit with surgeon prior to surgery: No J2EE ARCHITECT documented in this encounter Plan of Treatment Not on filedocumented as of this encounter Visit Diagnoses Not on filedocumented in this encounter Additional Health Concerns Assessment Noted Time PHQ-9 Depression Total Score: 12 06/17/2015 7:51 AM CS T documented as of this encounter Care Teams Strip Winder Relationship Specialty Start Date End Date Esmer Roland MD PCP - General Family Practice 09/21/10 01/29/17 documented as of this encounter
--- OUTSIDE RECORDS SUMMARY | 2022-04-30 09:32 | XMS_ITS | Encounter Summary ---
:1975 Author Organization [place] Address [address] [facility] [place] [address] Care Team Providers Name Role Phone Esmer Roland MD Primary Care Provider Reason for Visit Reason Onset Date Comments Refill Request 06/05/2015 lexapro Encounter Details Date Type Department Care Team Description 06/05/2015 Refill [facility] Esmer Roland Refill Request Clinic [place] MD Rochelle (lexapro) [address] [place] [address] SONJA BENAVIDEZ 5 5068 [phone] Social History Tobacco Use Types Packs/Day Years [...] Miscellaneous Notes Telephone Encounter - Anni Marquez [facility] - 06/06/2015 12:19 PM OBJECT ORIENTED DEVELOPER Prescription approved per [facility] Refill Protocol - should address further refills at Jun 16 appointment. Juli Marquez, Pharm.D. [facility] Flo Pharmacist On behalf of [facility] CT ORIENTED DEVELOPER Telephone Encounter - Deidre Alas - 06/05/2015 12:12 PM CST Last Written Prescription Date: 01/06/15 Last Fill Quantity: 180, # refills: 0 Last Office Visit with [facility] primary care provider: 01/06/15 Next 5 appointments (look out 90 days) Jun 16, 2015 8:00 AM MyChart Long with Esmer Roland MD [facility] [id number] [place] [address], [address] [facility] [phone] Jul 20, 2015 2:15 PM SHORT with Jeimy Christensen DO [facility] ([facility]) [address] [place] [phone] Last PHQ-9 score on record= PHQ-9 SCORE 01/06/2015 Total Score 6 Total Score MyChart - CT ORIENTED DEVELOPER documented in this encounter Plan of Treatment Not on filedocumented as of this encounter Visit Diagnoses Diagnosis MDD (major depressive disorder), recurre nt episode, mild (H) - Primary Major depressive disorder, recurrent epi sode, mild documented in this encounter Care Teams Cartography Technician Relationship Specialty Start Date End Date Esmer Roland MD PCP - General Family Practice 09/21/10 01/29/17 documented as of this encounter
--- OUTSIDE RECORDS SUMMARY | 2022-04-30 09:32 | XMS_ITS | Encounter Summary ---
:1975 Author Organization [place] Address [address] [facility] [address] Care Team Providers Name Role Phone Esmer Roland MD Primary Care Provider [phone] Reason for Visit Reason Comments Pre-Op Exam Encounter Details Date Type Department Care Team Description 09/01/2015 Office Visit [facility] Esmer Roland Preop g eneral physical exam (Primary Dx); Clinic Sara Byrd MD Abnormal uterine bleeding; [place] [address] [address] Major depressive disorder, recurrent epi sode, mild (H) Road, [address] [place] [address] [place], [place] [phone] (Wo rk) [address] [phone] Social History Tobacco Use Types Packs/Day Years [...] Body Mass Index 38.08 07/20/2015 1:49 PM HEAVY EQUIPMENT SERVICE TECHNICIAN documented in this encounter Patient Instructions Patient [...] Roland MD - 09/01/2015 9:35 AM CDT [address], [address] [facility] [address] Dept: [phone] PRE-OP EVALUATION: Today's date: 09/01/2015 Dariana Osman (: 1975) presents for pre-operative evaluation assessment as requested by Dr. Gutierrez. She requires evaluation and anesthesia risk assessment prior to undergoing surgery/procedure for treatment of very heavy periods. Proposed procedure: ablation and Tubal Date of Surgery/ Procedure: 09/26/15 Time of Surgery/ Procedure: unknown [facility]/Surgical Facility: [facility] Fax number for surgical facility: Primary Physician: [...] out. She has been followed by Dr. Dooley at [facility] for this. They have evaluated it [...] (ASC-H) 11/23/2012 Priority: Medium 11/23/12 ASC-H. 12/25/12 [place]= BRIGID 2. Referred to Ob~Financial Quantitative Analyst, Dr. Christensen 02/18/13 LEEP= Negative, R/P pap in 6 and 12 months. Due 08/2013 and 02/201410/01/13 Dx pap= Normal. Repeat co-testing in 6 months. 06/27/14 [facility] Pap= Normal, Neg HPV. 1 [...] cardiovascular risks for perioperative complications such as (AL, PE, VFib and 3?? AV Block): No [...] evaluation report is provided to requesting physician. [facility] Preop Guidelines documented in this encounter Nursing [...] athologist Signature WBC 9.0 4.0 - 11.0 [place] 10e9/L [facility] RBC Count 5.08 3.8 - 5.2 [place] 10e12/L [facility] Hemoglobin 15.1 11.7 - [place] 15.7 g/dL [facility] Hematocrit 45.3 35.0 - [place] 47.0 % [facility] MCV 89 78 - 100 [facility] MCH 29.7 26.5 - [place] 33.0 pg [facility] MCHC 33.3 31.5 - [place] 36.5 g/dL [facility] RDW 12.5 10.0 - [place] 15.0 % [facility] Platelet Count 367 150 - 450 [place] 10e9/L [facility] Specimen Anatomical Collection Method Collection Time Receive d Time (Source) Location / / Volume Laterality Blood specimen 09/01/2015 10:28 6 (specimen) AM CDT 10:33 AM CDT Esmer Roland MD LAB - BLOOD ORDERABLES Performing Organization Address City/State/ZIP Code Phon e Number [facility] [place] [address] documented in this encounter Visit Diagnoses Diagnosis [...] documented as of this encounter Care Teams Blasting Miner Relationship Specialty Start Date End Date Esmer Roland MD PCP - General Family Practice 09/21/10 01/29/17 documented as of this encounter
--- OUTSIDE RECORDS SUMMARY | 2022-04-30 09:32 | XMS_ITS | Encounter Summary ---
:1975 Author Organization [place] Address [address] [place] [address] Care Team Providers Name Role Phone Esmer Roland MD Primary Care Provider Reason for Visit Reason Comments Recheck Medication Encounter Details Date Type Department Care Team Description 06/16/2015 Office Visit [facility] Esmer Roland d epressive disorder, recurrent episode, mild (H) (Primary Dx); Clinic Sara Byrd MD Anxiety; [place] [address] [facility] Routine general medical examination at a health care facility; [facility], [address] [place], [place] Vitamin D deficiency; [place] [address] CARDIOVASCULAR SCREENING; LDL GOAL LESS THAN 160; [phone] obesity due to excess calori ([facility]) Social History Tobacco Use Types Packs/Day [...] Comments Blood Pressure 110/60 06/16/2015 8:36 AM CAMP DIRECTOR Pulse 70 06/16/2015 8:36 AM CAMP DIRECTOR Temperature - - Respiratory Rate 16 06/16/2015 8:36 AM CAMP DIRECTOR Oxygen Saturation - - Inhaled Oxygen Concentration - - Weight 107.5 kg (237 lb) 06/16/2015 8:36 AM CAMP DIRECTOR Height 167.6 cm (5' 6) 06/16/2015 8:36 AM CAMP DIRECTOR Body Mass Index 38.25 06/16/2015 8:36 AM CAMP DIRECTOR documented in this encounter Progress Notes Esmer [...] 01/06/2015 Total Score 2 4 4 PHQ-9 Lithuanian PHQ-9 Any Language GAD7 ?? Amount of [...] Follow up 1 month Esmer Roland MD [facility] DIRECTOR documented in this encounter Nursing Notes Mayela [...] completed using cuff size: everton Reese RN DIRECTOR documented in this encounter Plan of Treatment Not on filedocumented as of this encounter Procedures Procedure Name Priority Date/Time Associated Diagnosis Comme nts VITAMIN D DEFICIENCY Routine 06/16/2015 8:31 Vitamin D deficie ncy Results for this SCREENING AM CAMP DIRECTOR procedure are i n the results section. TSH WITH FREE T4 Routine 06/16/2015 8:31 Major depressive Resu lts for this REFLEX AM CAMP DIRECTOR disorder, recurrent procedur e are in episode, mild (H) the result s section. LIPID REFLEX TO Routine 06/16/2015 8:31 CARDIOVASCULAR Results for this DIRECT LDL PANEL AM CAMP DIRECTOR SCREENING; LDL GOAL proc edure are in LESS THAN 160 the results section. COMPREHENSIVE Routine 06/16/2015 8:31 Major depressive Results for this METABOLIC PANEL AM CAMP DIRECTOR disorder, recurrent proce dure are in episode, mild (H) the result s section. CBC WITH PLATELETS Routine 06/16/2015 8:31 Major depressive Re sults for this AM CAMP DIRECTOR disorder, recurrent procedur e are in episode, mild (H) the result s section. documented in this encounter Results (ABNORMAL) Lipid panel reflex to direct LDL (06/16/2015 8:31 AM CAMP DIRECTOR) Analysis Performed At Patho logist Time Signature Cholesterol 158 <200 mg/dL [facility] Triglycerides 204 (H) <150 mg/dL [facility] Comment: Borderline high: ??150-199 mg/dl High: ? 200-499 mg/dl Very high: ? >499 mg/dl Fasting specimen HDL Cholesterol 37 (L) >49 mg/dL [place] [facility] LDL Cholesterol Calculated 80 <100 mg/dL [facility] Comment: Desirable: <100 mg/dl Non HDL Cholesterol 121 <130 mg/dL [facility] Specimen Anatomical Collection Method Collection Time Receive d Time (Source) Location / / Volume Laterality Blood specimen 06/16/2015 8:31 AM 016 8:32 (specimen) CAMP DIRECTOR AM CAMP DIRECTOR Esmer Roland MD LAB - BLOOD ORDERABLES Performing Organization Address City/State/ZIP Code Phon e Number [facility] [address] [place] [address] TSH with free T4 reflex (06/16/2015 8:31 AM CAMP DIRECTOR) athologist Signature TSH 2.98 0.40 - 4.00 [facility] mU/L [facility] Specimen Anatomical Collection Method Collection Time Receive d Time (Source) Location / / Volume Laterality Blood specimen 06/16/2015 8:31 AM 016 8:32 (specimen) CAMP DIRECTOR AM CAMP DIRECTOR Esmer Roland MD LAB - BLOOD ORDERABLES Performing Organization Address City/[facility]/ZIP Code Phon e Number [facility] [address] [place] [address] CBC with platelets (06/16/2015 8:31 AM CAMP DIRECTOR) athologist Signature WBC 9.2 4.0 - 11.0 [place] 10e9/L [facility] RBC Count 4.77 3.8 - 5.2 [place] 10e12/L [facility] Hemoglobin 14.2 11.7 - [facility] 15.7 g/dL [facility] Hematocrit 42.5 35.0 - [facility] 47.0 % [facility] MCV 89 78 - [address] [place] [address] [facility] MCH 29.8 26.5 - [facility] 33.[address] [facility] MCHC 33.4 31.5 - [facility] 36.5 g/dL [facility] RDW 12.3 10.0 - [place] 15.0 % [facility] Platelet Count 292 150 - 450 [place] 10e9/L [facility] Specimen Anatomical Collection Method Collection Time Receive d Time (Source) Location / / Volume Laterality Blood specimen 06/16/2015 8:31 AM 016 8:32 (specimen) CAMP DIRECTOR AM CAMP DIRECTOR Esmer Roland MD LAB - BLOOD ORDERABLES Performing Organization Address City/[facility]/ZIP Code Phon e Number [facility] [place] [place] [address] (ABNORMAL) Comprehensive metabolic panel (06/16/2015 8:31 AM CAMP DIRECTOR) athologist Signature Sodium 140 133 - 144 [place] mmol/L [facility] Potassium 4.4 3.4 - 5.3 [place] mmol/L [facility] Chloride 107 94 - 109 [place] mmol/L [facility] Carbon Dioxide 24 20 - 32 [place] mmol/L [facility] Anion Gap 9 3 - 14 [place] mmol/L [facility] Glucose 87 70 - 99 [place] mg/dL [facility] Urea Nitrogen 13 7 - 30 [place] mg/dL [facility] Creatinine 0.94 0.52 - [place] 1.04 mg/dL [facility] GFR Estimate 66 >60 [place] mL/min/1.7 CLINICS m2 [facility] Comment: Non GFR Calc GFR Estimate If Black 80 >60 mL/min/1.7m2 F [facility] Comment: GFR Calc Calcium 8.4 (L) 8.5 - 10.1 mg/dL [place] [facility] Bilirubin Total 0.2 0.2 - 1.3 mg/dL [facility] Albumin 3.5 3.4 - 5.0 g/dL [facility] Protein Total 6.8 6.8 - 8.8 g/dL [place] [facility] Alkaline Phosphatase 66 40 - 150 U/L [facility] ALT 17 0 - 50 U/L [facility] AST 10 0 - 45 U/L [facility] Specimen Anatomical Collection Method Collection Time Receive d Time (Source) Location / / Volume Laterality Blood specimen 06/16/2015 8:31 AM 016 8:32 (specimen) CAMP DIRECTOR AM CAMP DIRECTOR Esmer Roland MD LAB - BLOOD ORDERABLES Performing Organization Address City/State/ZIP Code Phon e Number [facility] [address] [place] [address] Vitamin D Deficiency (06/16/2015 8:31 AM CAMP DIRECTOR) athologist Signature Vitamin D 28 20 - 75 [facility] Deficiency ug/L [place] MEDICAL screening [facility] Comment: Season, race, dietary intake, and treatm ent affect the concentration of 22-bnuiuxp-Psykqrd D. Values may decrea se during winter [...] specimen 06/16/2015 8:31 AM 016 8:32 (specimen) CAMP DIRECTOR AM CAMP DIRECTOR Esmer Roland MD LAB - BLOOD ORDERABLES Performing Organization Address City/State/ZIP Code Phon e Number [facility] [address] documented in this encounter Visit Diagnoses [...] documented as of this encounter Care Teams Plastics Nurse Relationship Specialty Start Date End Date Esmer Roland MD PCP - General Family Practice 09/21/10 01/29/17 documented as of this encounter
--- OUTSIDE RECORDS SUMMARY | 2022-04-30 09:32 | XMS_ITS | Encounter Summary ---
:1975 Author Organization [place] Address [facility] [place] [address] Care Team Providers Name Role Phone Esmer Rolnad MD Primary Care Provider [phone] Reason for Visit Reason Onset Date Comments Panel Management 01/08/2016 EUGENE-7 and PHQ9 Encounter Details Date Type Department Care Team Description 01/08/2016 Telephone [facility] Esmer Roland [facility] Sara Byrd MD (EUGENE-7 and PHQ9) [address] [place] [address], [address] [place] [address] [address] [place] [address] [place], [place] [phone] (Wo rk) [address] [phone] Social History Tobacco Use Types Packs/Day Years [...] CDT 3rd attempt, letter sent. Fady Rolle Supervisor Phosphatic Fertilizer Telephone Encounter - Missy Rolle - 01/30/2016 11:46 AM CDT Second attempt, sent [employer]hart message with questionnaires. Fady Rolle Supervisor Phosphatic Fertilizer Telephone Encounter - Polly Duron - 01/30/2016 [...] to do PHQ9. Type of outreach: Sent [employer] message. Questions for provider review: None Melissa Leal CMA Chart routed to Care Team . documented in this encounter Plan of Treatment Not on filedocumented as of this encounter Visit Diagnoses Not on filedocumented in this encounter Additional Health Concerns Assessment Noted Time PHQ-9 Depression Total Score: 4 09/02/2015 7:59 AM CDT documented as of this encounter Care Teams Forex Trader Relationship Specialty Start Date End Date Esmer Roland MD PCP - General Family Practice 09/21/10 01/29/17 documented as of this encounter
--- OUTSIDE RECORDS SUMMARY | 2022-04-30 09:32 | XMS_ITS | Encounter Summary ---
:1975 Author Organization [place] Address [address] [place] [address] Care Team Providers Name Role Phone Esmer Roland MD Primary Care Provider [phone] Reason for Visit Reason Comments ER F/U Urgent care follow up 12/16/15 Encounter Details Date Type Department Care Team Description 12/18/2015 Office Visit [facility] Kenneth Cocuh Dysuria ( Primary Dx); Clinic Sara Booth MD Chronic migraine without aura without st atus migrainosus, not intractable [place] [address] [facility], [address] [place] [address] [place], [place] [phone] (Wo rk) [address] [phone] Social History Tobacco Use Types Packs/Day Years [...] the following health issues: ED/UC Followup: Facility: [facility] Date of visit: 12/16/15 Reason [...] (ABNORMAL) Urine Microscopic (12/18/2015 2:49 PM CDT) [facility] Method Time Signature WBC Urine 10-25 (A) 0 - 2 [facility] [place] RBC Urine 2-5 (A) 0 - 2 [facility] [place] Hyaline Casts 2-5 (A) 0 - 2 [facility] [place] Squamous Few FEW /LPF [place] Epithelial CLINICS /LPF Urine [place] Bacteria Urine Moderate (A) NEG /HPF [facility] Mucous Urine Present (A) NEG /LPF [facility] Specimen Anatomical Collection Method Collection Time Receive d Time (Source) Location / / Volume Laterality 12/18/2015 2:49 PM 6 2:50 CDT PM CDT Kenneth Couch MD LAB - URINE ORDERABLES Performing Organization Address [facility]/ZIP Code Phon e Number [facility] [place] [address] (ABNORMAL) *UA reflex to Microscopic (12/18/2015 2:49 PM CDT) [facility] gist Method Time Signature Color Urine Yellow [facility] Appearance Urine Clear [facility] Glucose Urine Negative NEG mg/dL [facility] Bilirubin Urine Negative NEG [facility] Ketones Urine Negative NEG mg/dL [facility] Specific [place] 1.025 1.003 - [place] Urine 1.[address] [facility] Blood Urine Negative NEG [facility] pH Urine 5.0 5.0 - 7.0 [place] pH [facility] Protein Albumin Negative NEG mg/dL [place] Urine [facility] Urobilinogen 0.2 0.2 - 1.0 [place] Urine EU/dL [facility] Nitrite Urine Negative NEG [facility] Leukocyte Trace (A) NEG [place] Esterase Urine [facility] Source Midstream [place] Urine [facility] Specimen Anatomical Collection Method Collection Time Receive d Time (Source) Location / / Volume Laterality Urine specimen 12/18/2015 2:49 PM 016 2:50 (specimen) CDT PM CDT Kenneth Couch MD LAB - URINE ORDERABLES Performing Organization Address City/[facility]/ZIP Code Phon e Number [facility] [place] [address] documented in this encounter Visit Diagnoses Diagnosis Dysuria - Primary Chronic migraine without aura without st atus migrainosus, not intractable Chronic migraine without aura, without m ention of intractable migraine without mention of status migrainosus documented in this encounter Additional Health Concerns Assessment Noted Time PHQ-9 Depression Total Score: 4 09/02/2015 7:59 AM CDT documented as of this encounter Care Teams Aircraft Maintenance Supervisor Relationship Specialty Start Date End Date Esmer Roland MD PCP - General Family Practice 09/21/10 01/29/17 documented as of this encounter
--- OUTSIDE RECORDS SUMMARY | 2022-04-30 09:32 | XMS_ITS | Encounter Summary ---
:1975 Author Organization [place] Address [address] [place] [address] Care Team Providers Name Role Phone Esmer Roland MD Primary Care Provider Reason for Visit Reason Comments Allied Health Visit Here to sign MA form for T.L Casper Encounter Details Date Type Department Care Team Description 07/27/2015 Allied Health/Nurse [facility] All ied Health Visit Visit Clinic [place] (Here to sign MA form [address] [place] [address] Social History Tobacco Use Types [...] to scan into chart A.S.AMeme Alegria the project scheduler Envelope in nursing station ARTS CHAIR documented in this encounter Plan of Treatment Not on filedocumented as of this encounter Visit Diagnoses Diagnosis Contraceptive management - Primary Unspecified contraceptive management documented in this encounter Additional Health Concerns Assessment Noted Time PHQ-9 Depression Total Score: 12 06/17/2015 7:51 AM CS T documented as of this encounter Care Teams Research Manufacturing Operator Relationship Specialty Start Date End Date Esmer Roland MD PCP - General Family Practice 09/21/10 01/29/17 documented as of this encounter
--- OUTSIDE RECORDS SUMMARY | 2022-04-30 09:33 | XMS_ITS | Encounter Summary ---
:1975 Author Organization [place] Address [address] [place] [address]. [place] [address] Care Team Providers Name Role Phone Esmer Roland MD Primary Care Provider [phone] Reason for Visit Reason Onset Date Comments Refill Request 11/04/2014 Lexapro 20mg Encounter Details Date Type Department Care Team Description 11/04/2014 Refill [facility] Esmer Roland Refill Request (Lexapro [facility] [place] MD Rochelle 20mg) [address] [facility], [address] [place] [address] [address] [place] [address] [place], [place] [phone] (Wo rk) [address] [phone] Social History Tobacco Use Types Packs/Day Years [...] mild documented in this encounter Care Teams Sales And Leasing Agent Relationship Specialty Start Date End Date Esmer Roland MD PCP - General Family Practice 09/21/10 01/29/17 documented as of this encounter
--- OUTSIDE RECORDS SUMMARY | 2022-04-30 09:33 | XMS_ITS | Encounter Summary ---
:1975 Author Organization [place] Address [facility] [place] [address] Care Team Providers Name Role Phone Esmer Roland MD Primary Care Provider [phone] Reason for Visit Reason Onset Date Comments Nurse Advice Line 02/14/2014 Encounter Details Date Type Department Care Team Description 02/14/2014 Telephone [facility] Esmer Roland Nurse Advice Line Sara Byrd MD [address] [place] [address], [address] [place] [address] [address] [place] [address] [place], [place] [phone] (Wo rk) [address] [phone] Social History Tobacco Use Types Packs/Day Years [...] diseases documented in this encounter Care Teams Quick Service Technician Relationship Specialty Start Date End Date Esmer Rloand MD PCP - General Family Practice 09/21/10 01/29/17 documented as of this encounter
--- OUTSIDE RECORDS SUMMARY | 2022-04-30 09:33 | XMS_ITS | Encounter Summary ---
:1975 Author Organization [place] Address [address] [place] [address]. [place] [address] Care Team Providers Name Role Phone Esmer Roland MD Primary Care Provider [phone] Reason for Visit Reason Comments Consult heavy periods and long--cons ult for ablation or D&C procedure Encounter Details Date Type Department Care Team Description 02/02/2015 Office Visit [facility] Jeimy Christensen or frequent [facility] DO Verito menstruation (Primary [place] [address] Dx) [address] [place] [address] [phone] Social History Tobacco Use Types Packs/Day Years [...] biopsy Dr. Jeimy Christensen, Obstetrics and Gynecology [facility] [place] documented in this encounter Progress Notes Jeimy [...] Dr. Jeimy Christensen, DO Obstetrics and Gynecology [facility] documented in this encounter Nursing Notes [...] Complete with Transvaginal (07/20/2015 2:26 PM HAND UPPER AND BOTTOM LACER) Anatomical Region Laterality Modality Abdomen/Pelvis Ultrasound Specimen (Source) Anatomical Location Collection Method / Collectio n Time Received Time / Laterality Volume Impressions 07/21/2015 6:20 AM HAND UPPER AND BOTTOM LACER #: [id number] Study Notes ? Lizzette Bell on 07/20/2015 2:29 PM [facility] Obstetrics & Gynecology [address] [place] [address]. [address] [place] [address] ULTRASOUND - PELVIC SUPERVISOR BOILER REPAIR Referring MD: Jeimy Christensen Primary Clinic: [facility] CLINICAL INFORMATION Indications for ultrasound: [...] Lois BANERJEE Narrative 07/21/2015 6:20 AM HAND UPPER AND BOTTOM LACER Order Jeimy Christensen DO IMG US ORDERABLES documented in this encounter Visit Diagnoses Diagnosis Excessive or frequent menstruation - Mel rangel documented in this encounter Care Teams Tire Repairman Relationship Specialty Start Date End Date Esmer Roland MD PCP - General Family Practice 09/21/10 01/29/17 documented as of this encounter
--- OUTSIDE RECORDS SUMMARY | 2022-04-30 09:33 | XMS_ITS | Encounter Summary ---
:1975 Author Organization [place] Address [address] [facility] [place] [address] Care Team Providers Name Role Phone Esmer Roland MD Primary Care Provider [phone] Reason for Referral Consultation - Closed Specialty Diagnoses / Procedures Referred By Contact Refer red To Contact Diagnoses Large breasts Upper back pain Esmer Roland [facility] [address] [facility], [address] [address] [place] [address] S[place]NAVIDEZ [address] Phone: [phone] Referral ID Status Reason Start Date Expiration Date Visits Requ ested Visits Authorized [id number] Closed 07/23/2013 01/19/2014 1 1 EL DINKEY OPERATOR Reason for Visit Reason Comments Consult discuss surgery options Encounter Details Date Type Department Care Team Description 07/23/2013 Office Visit [facility] Esmer Roland b ack pain (Primary Dx); Clinic Sraa Byrd MD Large breasts; [id number] [place], [place] [address] [address] MICHELLE MONCADA Abnormal uterine bleeding; Road, [address] [place] [address] Insomnia; [place] [phone] (Wo rk) ANXIETY STATE NOS [address] [phone] Social History Tobacco Use Types Packs/Day Years [...] Comments Blood Pressure 114/80 07/23/2013 9:09 AM DIESEL DINKEY OPERATOR Pulse 89 07/23/2013 9:09 AM DIESEL DINKEY OPERATOR Temperature 37.2 ??C (99 ??F) 07/23/2013 9:09 AM DIESEL DINKEY OPERATOR Respiratory Rate 16 07/23/2013 9:09 AM DIESEL DINKEY OPERATOR Oxygen Saturation 96% 07/23/2013 9:09 AM DIESEL DINKEY OPERATOR Inhaled Oxygen Concentration - - Weight 92.1 kg (203 lb) 07/23/2013 9:09 AM DIESEL DINKEY OPERATOR Height - - Body Mass Index 32.03 04/02/2013 9:08 AM CDT documented in this encounter Progress Notes Esmer Roland MD - 07/23/2013 9:05 AM CST SUBJECTIVE: Dariana Osman is a 37 year old female who presents to clinic today for the following health issues: DISCUSS SURGERY OPTIONS Taking aleve for mid and upper back pain, seeing chiropractor, and 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 Has large breasts, and 40 DDD and [...] list, Allergies, and Medical/Social/Surgical histories reviewed in [facility] andupdated as appropriate. ROS: C: NEGATIVE for [...] 2 weeks recheck phentermine Esmer Roland MD [facility] EL DINKEY OPERATOR documented in this encounter Nursing Notes 07/23/2013 9:00 AM CST >> RIC PARR Fri Jul 23, 2013 9:13 AM Patient presents with: Consult - discuss surgery options Initial BP 114/80 Pulse 89 Temp 99 ??F (37.2 ??C) (Oral) Resp 16 Wt 203 lb (92.08 kg) HbY489% Estimated Body mass index is 32.05 kg/(m^2) [...] unspecified documented in this encounter Care Teams Lamp Shade Sewer Relationship Specialty Start Date End Date Esmer Roland MD PCP - General Family Practice 09/21/10 01/29/17 documented as of this encounter
--- OUTSIDE RECORDS SUMMARY | 2022-04-30 09:33 | XMS_ITS | Encounter Summary ---
:1975 Author Organization [place] Address [address] [place] [address]. [place] [address] Care Team Providers Name Role Phone Esmer Roland MD Primary Care Provider [phone] Reason for Visit Reason Onset Date Comments Refill Request 01/06/2014 Phentermine 37.5mg Encounter Details Date Type Department Care Team Description 01/06/2014 Refill [facility] Esmer Roland Refill Request Clinic Sara Byrd MD (Phentermine 37.5mg) [address] [place] [address] [place], [place] [phone] (Wo rk) [address] [phone] Social History Tobacco Use Types Packs/Day Years [...] unspecified documented in this encounter Care Teams Ordering Machine Operator Relationship Specialty Start Date End Date Esmer Roland MD PCP - General Family Practice 09/21/10 01/29/17 documented as of this encounter
--- OUTSIDE RECORDS SUMMARY | 2022-04-30 09:33 | XMS_ITS | Encounter Summary ---
:1975 Author Organization [place] Address [address] [place] [address] Care Team Providers Name Role Phone Esmer Roland MD Primary Care Provider [phone] Reason for Visit Reason Comments Recheck Medication LEXAPRO Depression Encounter Details Date Type Department Care Team Description 05/27/2014 Office Visit [facility] Esmer Roland ANXIETY STATE NOS (Primary Dx); Clinic Sara Byrd MD MDD (major depressive disorder) [place] [address] [facility], [address] [place] [address] [place], [place] [phone] (Wo rk) [address] [phone] Social History Tobacco Use Types Packs/Day Years [...] Comments Blood Pressure 112/70 05/27/2014 9:42 AM ALUMINUM FABRICATION SUPERVISOR Pulse 65 05/27/2014 9:42 AM ALUMINUM FABRICATION SUPERVISOR Temperature 37.2 ??C (98.9 ??F) 05/27/2014 9:42 AM ALUMINUM FABRICATION SUPERVISOR Respiratory Rate 16 05/27/2014 9:42 AM ALUMINUM FABRICATION SUPERVISOR Oxygen Saturation 97% 05/27/2014 9:42 AM ALUMINUM FABRICATION SUPERVISOR Inhaled Oxygen Concentration - - Weight 99.8 kg (220 lb 1.6 oz) 05/27/2014 9:42 AM ALUMINUM FABRICATION SUPERVISOR Height 169.5 cm (5' 6.75) 05/27/2014 9:42 AM ALUMINUM FABRICATION SUPERVISOR Body Mass Index 34.73 05/27/2014 9:42 AM ALUMINUM FABRICATION SUPERVISOR documented in this encounter Progress Notes Esemr Roland MD - 05/27/2014 9:46 AM CST HPI SUBJECTIVE: Dariana Osman is a 38 year old female who presents to clinic today for the following health issues: Breast surgery twice now, incisions have opened and had infections, seeing surgeon, but this has been over several months, since October and revision in Mar. paps are now improving and seeing TOUCH UP PAINTER HAND regularly, very heavy periods, would like to have hysterectomy, but D@C is likely to be planned in the near future Depression and Anxiety Follow-Up ?? Status since last visit: Worsened -DEPRESSION , due to all the above, does not like to go out anymore, no hobbies, not calling friends, feels more irritable, happy at home with her kids ?? 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 Other associated symptoms:None ?? Complicating factors: ?? Significant life event: Yes- Complications after surgery. ?? Current substance abuse: None ?? lexapro 40mg, hx of prozac in the past ?? Has gained a lot of weight in the past few yrs PHQ-9 SCORE ([facility]) 04/02/2013 10/01/2013 05/09/2014 Total Score 8 6 8 Total Score - - - EUGENE-7 SCORE 04/06/2013 05/09/2014 Total Score 5 2 PHQ-9 [place] Citizen PHQ-9 Any Language GAD7 ?? Amount of exercise or physical activity: None ?? Problems taking medications regularly: No ?? Medication side effects: none ?? Diet: regular (no restrictions) PROBLEMS TO ADD ON... Problem list and histories reviewed & adjusted, as indicated. Additional history: as documented Labs reviewed in [facility] Problem list, Medication list, Allergies, and Medical/Social/Surgical histories reviewed in [facility] andupdated as appropriate. ROS: Constitutional, HEENT, [...] Follow up 1 month Esmer Roland MD [facility] Physical Exam INUM FABRICATION SUPERVISOR documented in this encounter Nursing Notes Melissa Leal, RN ADMIT - 05/27/2014 9:46 AM CST Chief Complaint [...] size large RIGHT arm. Melissa Leal CMA INUM FABRICATION SUPERVISOR documented in this encounter Plan of Treatment Not on filedocumented as of this encounter Visit Diagnoses Diagnosis ANXIETY STATE NOS - Primary Anxiety state, unspecified MDD (major depressive disorder) Major depressive disorder, single episod e, unspecified documented in this encounter Care Teams Lead Ios Developer Relationship Specialty Start Date End Date Esmer Roland MD PCP - General Family Practice 09/21/10 01/29/17 documented as of this encounter
--- OUTSIDE RECORDS SUMMARY | 2022-04-30 09:33 | XMS_ITS | Encounter Summary ---
:1975 Author Organization [place] Address [address] [facility] [place] [address] Care Team Providers Name Role Phone Esmer Roland MD Primary Care Provider [phone] Reason for Visit Reason Comments Pre-Op Exam Encounter Details Date Type Department Care Team Description 10/29/2013 Office Visit [facility] Kenneth Couch Pre gen eral Clinic Sara Booth MD physical exam [address] [place] [address] [facility] (Primary Dx) Road, [address] [place] [address] [place], [place] [phone] (Wo rk) [address] [phone] Social History Tobacco Use Types Packs/Day Years [...] Couch MD - 10/29/2013 8:01 AM CDT [address], [address] [facility] [address] Dept: [phone] PRE-OP EVALUATION: Today's date: 10/29/2013 Dariana Osman (: 1975) presents for pre-operative evaluation assessment as requested by Dr. Washington. She requires evaluation and anesthesia risk assessment prior to undergoing surgery/procedure Breast reduction Date of Surgery/ Procedure: 11/03/13 Time of Surgery/ Procedure: 1000 Hospital/Surgical Facility: [facility] Fax number for surgical facility: [phone] Primary Physician: Esmer Roland Type of Anesthesia [...] (ASC-H) 11/23/2012 Priority: Medium 11/23/12 ASC-H. 12/25/12 [place]= BRIGID 2. Referred to Ob~Pullman Car Repairer, Dr. Christensen 02/18/13 LEEP= Negative, R/P pap [...] cardiovascular risks for perioperative complications such as (VT, PE, VFib and 3?? AV Block): No [...] evaluation report is provided to requesting physician. [place] Preop Guidelines 2013 documented in this encounter Plan of Treatment Not on filedocumented as of this encounter Visit Diagnoses Diagnosis Preop general physical exam - Primary Other specified pre-operative examinatio n documented in this encounter Care Teams Pizza Maker Relationship Specialty Start Date End Date Esmer Roland MD PCP - General Family Practice 09/21/10 01/29/17 documented as of this encounter
--- OUTSIDE RECORDS SUMMARY | 2022-04-30 09:33 | XMS_ITS | Encounter Summary ---
:1975 Author Organization [place] Address [facility] [place] [address] Care Team Providers Name Role Phone Esmer Roland MD Primary Care Provider [phone] Encounter Details Date Type Department Care Team Description 03/13/2015 E-Visit [facility] Yony Garcia Dysuria (Primary Dx) Sara Hoyos PA-C [address] [place] [address], [address] [place] [address] [address]VE [address] [place] [address] [place], [place] [phone] (Wo rk) [address] [phone] Social History Tobacco Use Types Packs/Day Years [...] Primary documented in this encounter Care Teams Informaticist Relationship Specialty Start Date End Date Esmer Roland MD PCP - General Family Practice 09/21/10 01/29/17 documented as of this encounter
--- OUTSIDE RECORDS SUMMARY | 2022-04-30 09:33 | XMS_ITS | Encounter Summary ---
:1975 Author Organization [place] Address [address] [place] [address] Care Team Providers Name Role Phone Esmer Roland MD Primary Care Provider Reason for Visit Reason Onset Date Comments Prior Authorization 01/05/2014 Escitalopram needs P A Encounter Details Date Type Department Care Team Description 01/05/2014 Telephone [facility] Esmer Roland Prior A uthorization Clinic Sara Byrd MD (Escitalopram needs [place]) [address] [place] [address] [facility], [address] [place] [address] [place], [place] [phone] (Wo rk) [address] [phone] Social History Tobacco Use Types Packs/Day Years [...] to begin the process Her ID is [id number] Thank you! documented in this encounter Plan of Treatment Not on filedocumented as of this encounter Visit Diagnoses Not on filedocumented in this encounter Care Teams Refrigeration Tech Relationship Specialty Start Date End Date Esmer Roland MD PCP - General Family Practice 09/21/10 01/29/17 documented as of this encounter
--- OUTSIDE RECORDS SUMMARY | 2022-04-30 09:33 | XMS_ITS | Encounter Summary ---
:1975 Author Organization [place] Address [address] [place] [address] Care Team Providers Name Role Phone Esmer Roland MD Primary Care Provider [phone] Reason for Visit Reason Comments Recheck Medication Encounter Details Date Type Department Care Team Description 01/06/2015 Office Visit [facility] Yony Garcia Major depressive disorder, single episode, moderate (H) (Primary Dx); Clinic [place] ZENON Hoyos Migraine without aura and without status migrainosus, not intractable; [place] [address] MICHELLE SHEA MDD (major depressive disorder), recurre nt episode, mild (H) Road, [address] [place] [address] [place], [place] [phone] (Wo rk) [address] [phone] Social History Tobacco Use Types Packs/Day Years [...] Body Mass Index 36.41 07/08/2014 9:54 AM SUGAR CANE GROWER documented in this encounter Progress Notes Yony [...] ?? Current substance abuse: None PHQ-9 SCORE ([facility]) 05/09/2014 05/27/2014 07/06/2014 Total Score 8 6 - Total Score - - 2 EUGENE-7 SCORE 04/06/2013 05/09/2014 05/27/2014 Total Score 5 2 4 PHQ-9 [place]an PHQ-9 Any Language GAD7 ?? Amount of [...] she changes her mind. Yony Garcia PA-C [facility] Physical Exam documented in this encounter Nursing [...] mild documented in this encounter Care Teams Engineer System Administrator Relationship Specialty Start Date End Date Esmer Roland MD PCP - General Family Practice 09/21/10 01/29/17 documented as of this encounter
--- OUTSIDE RECORDS SUMMARY | 2022-04-30 09:33 | XMS_ITS | Encounter Summary ---
:1975 Author Organization [place] Address Count includes the [facility] [place] [address] Care Team Providers Name Role Phone Esmer Roland MD Primary Care Provider [phone] Reason for Visit Reason Onset Date Comments Formulary Issue 07/23/2013 pa on lexapro Encounter Details Date Type Department Care Team Description 07/23/2013 Telephone [facility] Esmer Roland Formula ry Issue (pa on Clinic [place] MD Rochelle lexapro) [address] [place] [id number] [phone] Social History Tobacco Use Types Packs/Day Years [...] Pa for Lexapro (generic) was approved through [employer] from 06/23/13 - 07/23/14 Mechelle RITY OPERATIONS MANAGER documented in this encounter Plan of Treatment Not on filedocumented as of this encounter Visit Diagnoses Not on filedocumented in this encounter Care Teams Pairer Inspector Relationship Specialty Start Date End Date Esmer Roland MD PCP - General Family Practice 09/21/10 01/29/17 documented as of this encounter
--- OUTSIDE RECORDS SUMMARY | 2022-04-30 09:33 | XMS_ITS | Encounter Summary ---
:1975 Author Organization [place] Address [facility] [place] [address] Care Team Providers Name Role Phone Esmer Roland MD Primary Care Provider [phone] Reason for Visit Reason Onset Date Comments Refill Request 02/27/2015 Xanax Encounter Details Date Type Department Care Team Description 02/27/2015 Refill [facility] Esmer Roland Refill Request (Xanax) Clinic [place] MD [place] [address] [place] [address], [address] [place] [address] [address] [place] [address] [place], [place] [phone] (Wo rk) [address] [phone] Social History Tobacco Use Types Packs/Day Years [...] CDT RX faxed to pharmacy Maricarmen SMALL Operating Room Surgical Technician [facility] Telephone Encounter - Mayela Reese RN [...] Avalos - 02/27/2015 2:42 PM CDT Ph. [phone] Patient crying on the phone and does not have insurance Pending Prescriptions: Disp Refills ALPRAZolam (XANAX) 0.5 MG tablet 40 tab*0 Sig: Take 1 tablet (0.5 mg) by mouth nightly as needed for anxiety Last Written Prescription Date: 10/01/2013 Last Fill Quantity: 40, # refills: 0 Last Office Visit with [facility] primary care provider: 01/06/2015 Future Office visit: Routing refill request to provider for review/approval because: Drug not on the [facility] refill protocol or controlled substance Nohemi Avalos Operating Room Surgical Technician documented in this encounter Plan of Treatment Not on filedocumented as of this encounter Visit Diagnoses Diagnosis Insomnia - Primary Insomnia, unspecified documented in this encounter Care Teams Curriculum Manager Relationship Specialty Start Date End Date Esmer Roland MD PCP - General Family Practice 09/21/10 01/29/17 documented as of this encounter
--- OUTSIDE RECORDS SUMMARY | 2022-04-30 09:33 | XMS_ITS | Encounter Summary ---
:1975 Author Organization [place] Address [address] [place] [address] Care Team Providers Name Role Phone Esmer Roland MD Primary Care Provider [phone] Reason for Visit Reason Comments Pre-Op Exam breast reduction/ repair Encounter Details Date Type Department Care Team Description 04/01/2014 Office Visit [facility] Yony Garcia Preop general physical exam (Primary Dx); Clinic Sara Hoyos PA-C Need for immunization against influenza [place] [address] [facility], [address] [place] [phone] Social History Tobacco Use Types Packs/Day Years [...] Gambino PA-C - 04/01/2014 9:39 AM CDT [address], [address] [facility] [address] Dept: [phone] PRE-OP EVALUATION: Today's date: 04/01/2014 Dariana Osman (: 1975) presents for pre-operative evaluation assessment as requested by Dr. Chuck Washington. She requires evaluation and anesthesia risk assessment prior to undergoing surgery/procedure for treatment of breast correction/reduction . Proposed procedure: breast repair/reduction Date of Surgery/ Procedure: 04/06/14 Time of Surgery/ Procedure: 6:45 AM Hospital/Surgical Facility: [facility] Fax number for surgical facility: [phone] Primary Physician: Esmer Roland Type of Anesthesia [...] (ASC-H) 11/23/2012 Priority: Medium 11/23/12 ASC-H. 12/25/12 [place]= BRIGID 2. Referred to Ob~Residential Subcontractor, Dr. Christensen 02/18/13 LEEP= Negative, R/P pap [...] cardiovascular risks for perioperative complications such as ([place], PE, VFib and 3?? AV Block): No [...] athologist Signature Hemoglobin 14.4 11.7 - 15.7 [place] g/dL [facility] Specimen Anatomical Collection Method Collection Time Receive d Time (Source) Location / / Volume Laterality Blood specimen 04/01/2014 11:05 4 (specimen) AM CDT 11:06 AM CDT Yony Garcia PA-C LAB - BLOOD ORDERABLES Performing Organization Address City/State/ZIP Code Phon e Number [facility] [id number] [place] [address] documented in this encounter Visit Diagnoses Diagnosis Preop general physical exam - Primary Other specified pre-operative examinatio n Need for immunization against influenza Need for prophylactic vaccination and in oculation against influenza documented in this encounter Care Teams Manager Council Relationship Specialty Start Date End Date Esmer Roland MD PCP - General Family Practice 09/21/10 01/29/17 documented as of this encounter
--- OUTSIDE RECORDS SUMMARY | 2022-04-30 09:33 | XMS_ITS | Encounter Summary ---
:1975 Author Organization [place] Address [address] [place] [address] Care Team Providers Name Role Phone Fawad Roland MD Primary Care Provider [phone] Reason for Visit Reason Comments Physical fasting Encounter Details Date Type Department Care Team Description 07/08/2014 [facility] Routine general medical examination at a health care facility (Primary Dx); Clinic Sara Byrd MD Family history of thyroid disease in fat her; [place] [address] [address] BMI 34.0-34.9,adult; Road, [address] [place] [address] ANXIETY STATE NOS [place], [place] [phone] (Wo rk) [address] [phone] Social History Tobacco Use Types Packs/Day Years [...] Comments Blood Pressure 122/80 07/08/2014 9:54 AM TECHNICAL SUPPORT ENGINEER Pulse 71 07/08/2014 9:54 AM TECHNICAL SUPPORT ENGINEER Temperature 37.3 ??C (99.1 ??F) 07/08/2014 9:54 AM TECHNICAL SUPPORT ENGINEER Respiratory Rate - - Oxygen Saturation 100% 07/08/2014 9:54 AM TECHNICAL SUPPORT ENGINEER Inhaled Oxygen Concentration - - Weight 99.8 kg (220 lb) 07/08/2014 9:54 AM TECHNICAL SUPPORT ENGINEER Height 168.9 cm (5' 6.5) 07/08/2014 9:54 AM TECHNICAL SUPPORT ENGINEER Body Mass Index 34.98 07/08/2014 9:54 AM TECHNICAL SUPPORT ENGINEER documented in this encounter Patient Instructions [...] months for an exam and cleaning. ?? NICAL SUPPORT ENGINEER documented in this encounter Progress Notes Fawad [...] accordingly All Histories reviewed and updated in [facility]. Depression Follow-Up ?? Status since last visit: Worsened slightly, doing ok, changed from lexapro to zoloft, not feelingsociable lately, no energy ?? See PHQ-9 for current symptoms. ?? Other associated symptoms:None ?? Complicating factors: Significant life event: No Current substance abuse: None Anxiety / Panic symptoms: No PHQ-9 [place] PHQ-9 Any Language ROS: C: NEGATIVE for [...] list, Allergies, and Medical/Social/Surgical histories reviewed in [facility] andupdated as appropriate. Labs reviewed in [facility] OBJECTIVE: BP 122/80 Pulse 71 Temp(Src) [...] Preventive Guidelines Dietary Guidelines for Americans, 2009 [employer] My[employer] regular exercise healthy diet/nutrition contraception-options discussed [...] fruits/vegetables and avoid sweets. Fawad Roland MD [facility] NICAL SUPPORT ENGINEER documented in this encounter Nursing Notes Timothy [...] completed using cuff size: large.Timothy Post MA NICAL SUPPORT ENGINEER documented in this encounter Plan of Treatment Not on filedocumented as of this encounter Procedures Procedure Name Priority Date/Time Associated Comments Diagnosis TSH WITH FREE T4 Routine 07/08/2014 10:36 Routine General Resu lts for this REFLEX AM TECHNICAL SUPPORT ENGINEER Medical Examination procedur e are in [facility] the results Facility section. Family history of thyroid disease in father BMI 34.0-34.9,adult LIPID REFLEX TO DIRECT Routine 07/08/2014 10:36 Routine Genera l Results for this LDL PANEL AM TECHNICAL SUPPORT ENGINEER Medical Examination procedur e are in [facility] the results Facility section. COMPREHENSIVE Routine 07/08/2014 10:36 Routine General Results for this METABOLIC PANEL AM TECHNICAL SUPPORT ENGINEER Medical Examination proce mehul are in At [facility] the results Facility section. PAP IMAGED THIN LAYER Routine 07/08/2014 12:00 Routine General Results for this SCREEN AM TECHNICAL SUPPORT ENGINEER Medical Examination procedur e are in At [facility] the results Facility section. HPV SCR W REF TO TIEN Routine 07/08/2014 12:00 Re sults for this ANAL PAP OR TISSUE AM TECHNICAL SUPPORT ENGINEER procedure are in the results section. documented in this encounter Results Comprehensive metabolic panel (07/08/2014 10:36 AM TECHNICAL SUPPORT ENGINEER) P athologist Signature Sodium 139 133 - 144 [facility] mmol/L [facility] Potassium 4.8 3.4 - 5.3 [facility] mmol/L [facility] Chloride 108 94 - 109 [facility] mmol/L [facility] Carbon Dioxide 24 20 - 32 [facility] mmol/L [facility] Anion Gap 7 3 - 14 [facility] mmol/L [facility] Glucose 83 70 - 99 [facility] mg/dL [facility] Comment: Effective 01/05/2014, the reference range for this assay has changed to reflect new instrumentation/methodology. Urea Nitrogen 11 7 - 30 mg/dL [facility] Comment: Effective 01/05/2014, the reference range for this assay has changed to reflect new instrumentation/methodology. Creatinine 0.81 0.52 - 1.04 mg/dL [facility] GFR Estimate 80 >60 mL/min/1.7m2 [facility] Comment: Non GFR Calc GFR Estimate If >90 >60 mL/min/1.7m2 [facility] Black GFR Calc [facility] Calcium 9.0 8.5 - 10.1 mg/dL [facility] Comment: Effective 01/05/2014, the reference range for this assay has changed to reflect new instrumentation/methodology. Bilirubin Total 0.3 0.2 - 1.3 mg/dL [facility] Albumin 3.7 3.4 - 5.0 g/dL [facility] S [facility] Protein Total 7.3 6.8 - 8.8 g/dL [facility] Alkaline Phosphatase 70 40 - 150 U/L [facility] ALT 24 0 - 50 U/L [facility] AST 11 0 - 45 U/L [facility] Specimen Anatomical Collection Method Collection Time Receive d Time (Source) Location / / Volume Laterality Blood specimen 07/08/2014 10:36 5 (specimen) AM TECHNICAL SUPPORT ENGINEER 10:37 AM TECHNICAL SUPPORT ENGINEER Fawad Roland MD LAB - BLOOD ORDERABLES Performing Organization Address City/State/ZIP Code Phon e Number [facility] [address] [place] [address] TSH with free T4 reflex (07/08/2014 10:36 AM TECHNICAL SUPPORT ENGINEER) P athologist Signature TSH 3.44 0.40 - 4.00 [facility] mU/L [facility] Comment: Effective 01/05/2014, the reference range for this assay has changed to reflect new instrumentation/methodology. Specimen Anatomical Collection Method Collection Time Receive d Time (Source) Location / / Volume Laterality Blood specimen 07/08/2014 10:36 5 (specimen) AM TECHNICAL SUPPORT ENGINEER 10:37 AM TECHNICAL SUPPORT ENGINEER Fawad Roland MD LAB - BLOOD ORDERABLES Performing Organization Address City/State/ZIP Code Phon e Number [facility] [address] [place] [address] (ABNORMAL) LIPID REFLEX TO DIRECT LDL PANEL (07/08/2014 10:36 AM TECHNICAL SUPPORT ENGINEER) P athologist Signature Cholesterol 155 <200 mg/dL [facility] Comment: LDL Cholesterol is the primary guide to therapy. The NCEP recommends further evaluation of: patients with cholesterol greater than 200 mg/dL if additional risk facto rs are present, cholesterol greater than 240 mg/dL, triglycerides greater than 1 50 mg/dL, or HDL less than 40 mg/dL. Triglycerides 159 (H) 0 - 150 mg/dL [facility] HDL Cholesterol 46 (L) >50 mg/dL [facility] LDL Cholesterol Calculated 77 0 - 129 mg/dL [facility] Comment: LDL Cholesterol is the primary guide to therapy: LDL-cholesterol goal in high risk patients is <100 mg/dL and in very high risk patients is <70 mg/dL. VLDL-Cholesterol 32 (H) 0 - 30 mg/dL [facility] Cholesterol/HDL Ratio 3.4 0.0 - 5.0 [facility] Specimen Anatomical Collection Method Collection Time Receive d Time (Source) Location / / Volume Laterality Blood specimen 07/08/2014 10:36 5 (specimen) AM TECHNICAL SUPPORT ENGINEER 10:37 AM TECHNICAL SUPPORT ENGINEER Fawad Roland MD LAB - BLOOD ORDERABLES Performing Organization Address City/State/ZIP Code Phon e Number [facility] [address] [place] [address] HPV screen with reflex to genotype (07/08/2014 12:00 AM TECHNICAL SUPPORT ENGINEER) Component Value Ref Test Analysis Performed At Patholo gist Range Method Time Signature Copath Report Patient Name: DARIANA VALDEZ MR#: [id number] Specimen #: [id number] Collected: 07/08/2014 00:00 Received: 07/14/2014 11:28 Reported: 07/14/2014 16:18 Ordering Phy(s): FAWAD ROLAND TEST(S) REQUESTED: Human Papillomavirus Screen Analysis SPECIMEN DESCRIPTION: Cervical Cells RESULTS: HPV 16 DNA: ?? NEGATIVE HPV 18 DNA: ??NEGATIVE OTHER HR HPV DNA: ??NEGATIVE FINAL DIAGNOSIS: ?? This patient's sample is negative for HP V DNA. ?? The [employer] (ACOG) r [...] and its performance characteristics determined by the [facility]. It has not been cleared or approved by the FDA. The laboratory is regulated under CLIA as qualified to perform high-complexity testing. This test is used for clinical purp oses. It should not be regarded as investigational or for research. Electronically Signed Out By: DAVIS Pipe Line Gauger CPT Codes: A: 18368- HPVSC TESTING LAB LOCATION: [facility] [address] [facility] [address] [place] [address] COLLECTION SITE: Client: ??[facility] Location: ??FMFP (R) Specimen (Source) Anatomical Collection Method Collection Time Re ceived Time Location / / Volume Laterality 07/08/2014 07/14/2014 11:2 8 AM TECHNICAL SUPPORT ENGINEER Fawad Roland MD LAB - GENOMICS Performing Organization Address City/State/ZIP Code Phon e Number [facility] PAP IMAGED THIN LAYER SCREEN (07/08/2014 12:00 AM TECHNICAL SUPPORT ENGINEER) Component Value Ref Test Analysis Performed At [facility] Range Method Time Signature PAP NIL COPATH Copath Report COPATH Patient Name: DARIANA VALDEZ MR#: [id number] Specimen #: [id number] Collected: 07/08/2014 Received: 07/11/2014 Reported: 07/13/2014 13:17 [...] [facility] [facility] (ASCP) Processed and screened at [facility] CLINICAL HISTORY: Previous normal pap Date of Last Pap: 10/01/13 Previous abnormal pap: HGSIL, LEEP: in 2012, Papanicolaou Test Limitations: ??Cervical cytology is a scre ening test with limited sensitivity; regular screening is critical for cancer prevention; Pap tests are primarily effective for the diagnosis/prevention of squamous cell carcinoma, not adenoca rcinomas or other cancers. TESTING LAB LOCATION: [address] ??[address] COLLECTION SITE: Client: ??[facility] Location: FMFP (R) Specimen (Source) Anatomical Collection Method Collection Time Re ceived Time Location / / Volume Laterality Cytologic 07/08/2014 07/11/2014 2:26 material PM TECHNICAL SUPPORT ENGINEER (specimen) Fawad Roland MD LAB - OPTIME [...] unspecified documented in this encounter Care Teams Ethics Officer Relationship Specialty Start Date End Date Fawad Roland MD PCP - General Family Practice 09/21/10 01/29/17 documented as of this encounter
--- OUTSIDE RECORDS SUMMARY | 2022-04-30 09:33 | XMS_ITS | Encounter Summary ---
:1975 Author Organization [place] Address [address] [place] [address]. [place] [address] Care Team Providers Name Role Phone Esmer Roland MD Primary Care Provider [phone] Yony Garcia PA-C Primary Care Provider [phone] Yony Garcia PA-C Unavailable [phone] Yony Garcia PA-C Unavailable [phone] Encounter Details Date Type Department Care Team Description 06/27/2014 Result Follow [facility] Esmer Roland Dx: Ab normal Pap smear, Up Clinic [place] [address] [address] [address] CIMARRON intraepit [facility], [address] (ASC-H) (Primary Dx) [place] [address] [id number] Social History Tobacco Use Types Packs/Day Years [...] 06/27/2014 4:04 PM CST 11/23/12 ASC-H. 12/25/12 Timber= BRIGID 2. Referred to Ob~Spray Painting Machine Operator, Dr. Christensen 02/18/13 LEEP= Negative, R/P pap in 6 and 12 months. Due 08/2013 and 02/201410/01/13 Dx pap= Normal. Repeat co-testing in 6 months. 06/27/14 Pap reminder sent per [facility] 07/08/14 Pap= NIL, Neg HPV. Co-test 1 yr 01/25/16 [facility] pap reminder message sent. (es) 08/08/16 Spoke with pt, reminded her of need for pap and offered [facility] phone number for scheduling. Pt declined [facility] number and [facility]16 Would consider patient to be lost to follow-up. Routed [facility] provider for [facility]. [facility] 12/24/16 ASCUS pap, neg HR HPV. [...] ACOG Practice Bulletin # 131, Apr 2012. STOCK COMMISSION AGENT Esmer Roland MD - 06/27/2014 4:03 PM CST Please call pt and see if she is going elsewhere for her paps or offer to schedule appt with me Thank you Caroline Bryant RN - 06/27/2014 4:03 PM CST LM on to call back. Caroline Burns RN, BSN, PHN [facility] RN STOCK COMMISSION AGENT Caroline Bryant RN - 06/27/2014 4:03 PM CST Pt. Informed of 01/25/2016 [employer] message that was sent. Triage reviewed patient chart with her on the phone. Pt. Expressed understanding and will schedule avisit with Dr. Christensen as she also has other concerns. Caroline Burns RN, BSN, PHN [facility] RN STOCK COMMISSION AGENT documented in this encounter Plan of Treatment Not on filedocumented as of this encounter Visit Diagnoses Diagnosis Abnormal Pap smear, can't excl hi gd sq intraepithelial lesion (ASC-H) - Primary Papanicolaou smear of cervix with atypic al squamous cells cannot exclude high grade squamous intraepithelial lesion (ASC-H) documented in this encounter Care Teams Open Hearth Laborer Relationship Specialty Start Date End Date Esmer Roland, PCP - General Family Practice 09/21/10 01/29/17 Yony Garcia, PCP - General Physician Actuarial Clerk - 01/30/17 07/23/18 PA-C Medical Yony Garcia, PCP - Assigned PCP 09/01/16 08/11/18 PA-C [address] [place] [address] Yony Garcia, Assigned PCP 09/01/16 PA-C [address] [place] [id number] documented as of this encounter
--- OUTSIDE RECORDS SUMMARY | 2022-04-30 09:33 | XMS_ITS | Encounter Summary ---
:1975 Author Organization [place] Address [address] [facility] [place] [address] Care Team Providers Name Role Phone Esmer Roland MD Primary Care Provider [phone] Yony Garcia PA-C Primary Care Provider [phone] Yony Garcia PA-C Unavailable [phone] Erik Rivas Primary Care Provider Yony Garcia PA-C Unavailable [phone] Reason for Visit Reason Onset Date Comments Refill Request 09/28/2013 Phentermine 37.5mg Encounter Details Date Type Department Care Team Description 09/28/[address] [facility] Esmer Roland Refill Request Clinic Sara Byrd MD (Phentermine 37.5mg) [address] [place] [address] [place], [place] [phone] (Wo rk) [address] [phone] Social History Tobacco Use Types Packs/Day Years [...] Fill Quantity: 30 Last Office Visit: 07/23/13 [facility] Float Brewery Cellar Worker [facility] [email or web address] Thank you! documented in this encounter Plan of Treatment Not on filedocumented as of this encounter Visit Diagnoses Diagnosis Obesity Obesity, unspecified documented in this encounter Care Teams Pyrometer Temperature Regulator Relationship Specialty Start Date End Date Esmer Roland, PCP - General Family Practice 09/21/10 01/29/17 Yony Garcia, PCP - General Physician Watch Adjuster - 01/30/17 07/23/18 PA-C Medical Yony Garcia, PCP - Assigned PCP 09/01/16 08/11/18 PA-C [id number] [address] [place] [id number] Erik Rivas PCP - General Family Practice 07/24/[address] [address] Yony Garcia, Assigned PCP 09/01/16 PA-C [address] [address] [place] [id number] documented as of this encounter
--- OUTSIDE RECORDS SUMMARY | 2022-04-30 09:33 | XMS_ITS | Encounter Summary ---
:1975 Author Organization [place] Address [address] [place] [address]. [place] [address] Care Team Providers Name Role Phone Esmer Roland MD Primary Care Provider [phone] Reason for Visit Reason Onset Date Comments Call To Schedule Appointment 09/22/2013 Pap due 08/08 014 Encounter Details Date Type Department Care Team Description 09/22/2013 Telephone [facility] Esmer Roland Call To Schedule Clinic Sara Byrd MD Appointment (Pap due [facility], [address] [place] [address] 08/2013) [address] [place] [address] [place], [place] [phone] (Wo rk) [address] [phone] Social History Tobacco Use Types Packs/Day Years [...] and 02/201409/22/2013 No pap done. Will send LVL6 message. Will post pone x 3 weeks. documented in this encounter Plan of Treatment Not on filedocumented as of this encounter Visit Diagnoses Diagnosis Abnormal Pap smear, can't excl hi gd sq intraepithelial lesion (ASC-H) - Primary Papanicolaou smear of cervix with atypic al squamous cells cannot exclude high grade squamous intraepithelial lesion (ASC-H) documented in this encounter Care Teams Hydraulic Hammer Operator Relationship Specialty Start Date End Date Esmer Roland MD PCP - General Family Practice 09/21/10 01/29/17 documented as of this encounter
--- OUTSIDE RECORDS SUMMARY | 2022-04-30 09:33 | XMS_ITS | Encounter Summary ---
:1975 Author Organization [place] Address [address] [facility] [place] [address] Care Team Providers Name Role Phone Esmer Roland MD Primary Care Provider Reason for Referral NIRAJ Physical Therapy - Closed Specialty Diagnoses / Procedures Referred By Contact Refer red To Contact Diagnoses Pfs (patellofemoral syndrome), unspecified laterality Pes anserine bursitis Kenneth Couch, [facility] [place] [facility] [address] [address] AD[address] OFFICE [place] [address] Phone: [phone] Referral ID Status Reason Start Date Expiration Date Visits Requ ested Visits Authorized [id number] Closed 02/21/2014 08/20/2014 1 1 Reason for Visit Reason Comments Knee Pain Encounter Details Date Type Department Care Team Description 02/21/2014 [facility] anser [facility]e bursitis (Primary Dx); Clinic Sara Booth MD PFS (patellofemoral syndrome), unspecifi ed laterality [place] [address] [facility], [address] [place] [address] [place] [phone] (Wo rk) [address] [phone] Social History Tobacco Use Types Packs/Day Years [...] by: rest/inactivity, ice and NSAID - ibuprofen [id number]/day started fish oil by chiropractor recommendation ?? [...] laterality documented in this encounter Care Teams Yoga Instructor Relationship Specialty Start Date End Date Esmer Roland MD PCP - General Family Practice 09/21/10 01/29/17 documented as of this encounter
--- OUTSIDE RECORDS SUMMARY | 2022-04-30 09:33 | XMS_ITS | Encounter Summary ---
:1975 Author Organization [place] Address [address] [place] [address]. [place] [address] Care Team Providers Name Role Phone Esmer Roland MD Primary Care Provider [phone] Reason for Visit Reason Onset Date Comments Refill Request 05/09/2014 LEXAPRO 20MG and Amb ien Encounter Details Date Type Department Care Team Description 05/09/2014 Refill [facility] Esmer Roland Refill Request (LEXAPRO [facility] [place] MD Roc[place]le 20MG and Ambien ) [address] [facility], [address] [place] [address] [address] [place] [address] [place], [place] [phone] (Wo rk) [address] [phone] Social History Tobacco Use Types Packs/Day Years [...] RX faxed to [facility] SMALL Stock Preparer [facility] LITIES MAINTENANCE ASSISTANT Telephone Encounter - Esmer Cavanaugh RN - 05/09/2014 1:11 PM CST Refilled Lexapro PSO for quanity of #60 the pt also requested a refill on her Ambien 5mg. Last Seen: 10/01/[address] Roland Last PHQ-9 score on record= PHQ-9 SCORE ([facility] 05/09/2014 Total Score 8 Total Score - [...] out of the Lexapro Esmer Cavanaugh RN. LITIES MAINTENANCE ASSISTANT Telephone Encounter - Lennie Haddad - 05/09/2014 1:00 PM CST PT called requesting refill of Lexapro 20MG to [facility]. Please call her when done [phone]. LITIES MAINTENANCE ASSISTANT documented in this encounter Plan of Treatment Not on filedocumented as of this encounter Visit Diagnoses Diagnosis ANXIETY STATE NOS Anxiety state, unspecified Adjustment disorder with anxiety Insomnia Insomnia, unspecified documented in this encounter Care Teams Linux Server Engineer Relationship Specialty Start Date End Date Esmer Roland MD PCP - General Family Practice 09/21/10 01/29/17 documented as of this encounter
--- OUTSIDE RECORDS SUMMARY | 2022-04-30 09:33 | XMS_ITS | Encounter Summary ---
:1975 Author Organization [place] Address [address] [facility] [place] [address] Care Team Providers Name Role Phone Esmer Roland MD Primary Care Provider [phone] Reason for Visit Reason Onset Date Comments Call To Schedule Appointment 02/03/2015 ultrasound Encounter Details Date Type Department Care Team Description 02/03/[address] [facility] Jeimy Christensen Call To Schedule Clinic Jamie Sellers DO Appointment [address] [facility] [id number] [address] (ultrasound) [place], [place] [address] [address] [place], [place] [phone] [address] (Work) [phone] Social History Tobacco Use Types Packs/Day Years [...] on filedocumented in this encounter Care Teams Covering Machine Tender Relationship Specialty Start Date End Date Esmer Roland MD PCP - General Family Practice 09/21/10 01/29/17 documented as of this encounter
--- OUTSIDE RECORDS SUMMARY | 2022-04-30 09:33 | XMS_ITS | Encounter Summary ---
:1975 Author Organization [place] Address [address] [facility] [place] [address] Care Team Providers Name Role Phone Esmer Roland MD Primary Care Provider [phone] Encounter Details Date Type Department Care Team Description 04/06/2014 Hospital Pathology [facility] TerrellMD Results [facility] [address] [place] [address] (Wo rk) Social History Tobacco Use Types [...] Value Ref Test Analysis Performed At [facility] Method Time Signature Copath Report Patient Name: DARIANA VALDEZ MR#: [id number] Specimen #: [id number] Collected: 04/06/2014 Received: 04/06/2014 Reported: 04/08/2014 16:16 [...] volume. ??No mass lesions are identified grossly. Licensed Sales Assistant sections are submitted in two cassettes. B.: [...] ??No mass lesi ons are identified grossly. ??Licensed Sales Assistant sections are submitted in two cassettes. (Dictated by: Blake Schofield 04/07/2014 10:15 AM) MICROSCOPIC: A and B. Microscopic performed CPT Codes: A: 81975-QS9 B: 59688-MZ5 TESTING LAB LOCATION: [place] [employer] [address] ??[address] COLLECTION SITE: Client: [facility] [...] on filedocumented in this encounter Care Teams Emotional Support Teacher Relationship Specialty Start Date End Date Esmer Roland MD PCP - General Family Practice 09/21/10 01/29/17 documented as of this encounter
--- OUTSIDE RECORDS SUMMARY | 2022-04-30 09:33 | XMS_ITS | Encounter Summary ---
:1975 Author Organization [place] Address [address] [facility] [place] [address] Care Team Providers Name Role Phone Fawad Roland MD Primary Care Provider [phone] Reason for Visit Reason Comments Physical Physical and Pap. Blood Draw Labs. Patient is fasting. Refill Request Encounter Details Date Type Department Care Team Description 10/01[facility]2013 [facility] Routine general medical examination at a health care facility (Primary Dx); Clinic Sara Byrd MD ANXIETY STATE NOS; Reform [address] [address]omnia; Road, [address] [place] [address] Screening for malignant neoplasm of the cervix [place], [place] [phone] (Wo rk) [address] [phone] Social History Tobacco Use Types Packs/Day Years [...] accordingly All Histories reviewed and updated in [facility]. ROS: C: NEGATIVE for fever, [...] Allergies, and Medical/Social/Surgical histories reviewed in [facility] andupdated as appropriate. Labs reviewed in [facility] OBJECTIVE: BP 122/78 Pulse 80 Temp(Src) 98.8 [...] Preventive Guidelines Dietary Guidelines for Americans, 2010 [employer]'s My[employer] regular exercise healthy diet/nutrition reports that [...] fruits/vegetables and avoid sweets. Fawad Roland MD [facility] documented in this encounter Nursing [...] Signature Vitamin D 53 30 - 75 [facility] Deficiency ug/L [place] [facility] screening Comment: Season, race, dietary intake, and treatm ent affect the concentration of 33-lwppzqh-Llihcyw D. Values may decrea se during winter [...] questions, pl ease contact the laboratory at [phone]. Specimen Anatomical Collection Method Collection Time Receive d Time (Source) Location / / Volume Laterality Blood specimen 10/01/2013 10:13 4 (specimen) AM CDT 10:14 AM CDT Fawad Roland MD LAB - BLOOD ORDERABLES Performing Organization Address City/State/ZIP Code Phon e Number [address] LABS CBC with platelets (10/01/2013 10:13 AM CDT) athologist Signature WBC 7.2 4.0 - 11.0 [facility] 10e9/L [facility] RBC Count 4.29 3.8 - 5.2 [facility] 10e12/L [facility] Hemoglobin 13.4 11.7 - [facility] 15.7 g/dL [facility] Hematocrit 39.4 35.0 - [facility] 47.0 % [facility] MCV 92 78 - 100 [facility] fl [facility] MCH 31.2 26.5 - [facility] 33.0 pg [facility] MCHC 34.0 31.5 - [facility] 36.5 g/dL [facility] RDW 12.5 10.0 - [facility] 15.0 % [facility] Platelet Count 300 150 - 450 [facility] 10e9/L [facility] Specimen Anatomical Collection Method Collection Time Receive d Time (Source) Location / / Volume Laterality Blood specimen 10/01/2013 10:13 4 (specimen) AM CDT 10:14 AM CDT Fawad Roland MD LAB - BLOOD ORDERABLES Performing Organization Address City/State/ZIP Code Phon e Number [place] [address] TSH with free T4 reflex (10/01/2013 10:13 AM CDT) athologist Signature TSH 1.76 0.4 - 5.0 [facility] mU/L [place] Specimen Anatomical Collection Method Collection Time Receive d Time (Source) Location / / Volume Laterality Blood specimen 10/01/2013 10:13 4 (specimen) AM CDT 10:14 AM CDT Fawad Roland MD LAB - BLOOD ORDERABLES Performing Organization Address City/[facility]/ZIP Code Phon e Number [facility] [place] [address] [place] [address] [facility] [address] [place] [address] [phone] (ABNORMAL) Comprehensive metabolic panel (10/01/2013 [...] 3.6 (L) 3.9 - 5.1 [facility] g/dL [facility] Comment: Reference range changed on 02/08. Protein Total 6.4 (L) 6.8 - 8.8 g/dL [facility] [place] Comment: As of 07, reference range reflects plasma specimen type. Alkaline Phosphatase 56 40 - 150 U/L [facility] ALT 20 0 - 50 U/L [facility] [place] AST 17 0 - 45 U/L [facility] [place] Specimen Anatomical Collection Method Collection Time Receive d Time (Source) Location / / Volume Laterality Blood specimen 10/01/2013 10:13 4 (specimen) AM CDT 10:14 AM CDT Fawad Roland MD LAB - BLOOD ORDERABLES Performing Organization Address City/State/ZIP Code Phon e Number [facility] [address] [place] [address] (ABNORMAL) Lipid panel reflex to direct LDL (10/01/2013 10:13 AM CDT) P athologist Signature Cholesterol 146 <200 mg/dL [facility] Comment: LDL Cholesterol is the primary guide to therapy. The NCEP recommends further evaluation of: patients with cholesterol greater than 200 mg/dL if additional risk facto rs are present, cholesterol greater than 240 mg/dL, triglycerides greater than 1 50 mg/dL, or HDL less than 40 mg/dL. Triglycerides 80 0 - 150 mg/dL [facility] [place] HDL Cholesterol 41 (L) >50 mg/dL [facility] [place] LDL Cholesterol Calculated 89 0 - 129 mg/dL [facility] Comment: LDL Cholesterol is the primary guide to therapy: LDL-cholesterol goal in high risk patients is <100 mg/dL and in very high risk patients is <70 mg/dL. VLDL-Cholesterol 16 0 - 30 mg/dL [facility] Cholesterol/HDL Ratio 3.6 0.0 - 5.0 [facility] Specimen Anatomical Collection Method Collection Time Receive d Time (Source) Location / / Volume Laterality Blood specimen 10/01/2013 10:13 4 (specimen) AM CDT 10:14 AM CDT Fawad Roland MD LAB - BLOOD ORDERABLES Performing Organization Address City/State/ZIP Code Phon e Number [facility] [address] [place] [address] PAP imaged thin layer, diagnostic (10/01/2013 12:00 AM CDT) Component Value Ref Test Analysis Performed At [facility] Range Method Time Signature PAP NIL COPATH Copath Report COPATH Patient Name: DARIANA VALDEZ MR#: [id number] Specimen #: [id number] Collected: 10/01/2013 Received: 10/04/2013 Reported: 10/06/2013 10:42 [...] [place] ??(ASCP) Processed and screened at [facility] CLINICAL HISTORY: Previous abnormal pap: [facility] Date of Last Pap: 11/23/12, Papanicolaou Test Limitations: ??Cervical cytology is a scre ening test with limited sensitivity; regular screening is critical for cancer prevention; Pap tests are primarily effective for the diagnosis/prevention of squamous cell carcinoma, not adenoca rcinomas or other cancers. TESTING LAB LOCATION: [address] ??[address] COLLECTION SITE: Client: ??[facility] Location: [facility]FP (R) Specimen (Source) Anatomical Collection [...] cervix documented in this encounter Care Teams Gravure Press Set Up Operator Relationship Specialty Start Date End Date Fawad Roland MD PCP - General Family Practice 09/21/10 01/29/17 documented as of this encounter
--- OUTSIDE RECORDS SUMMARY | 2022-04-30 09:33 | XMS_ITS | Encounter Summary ---
:1975 Author Organization [place] Address [address] [place] [address] Care Team Providers Name Role Phone Esmer Roland MD Primary Care Provider [phone] Reason for Visit Reason Comments Recheck Medication Phentermine Encounter Details Date Type Department Care Team Description 01/06/2014 Allied Health/Nurse Health [place] Rec heck Medication Visit Clinic [place] (Phentermine) [facility], [address] [place] [address] Social History Tobacco Use Types [...] documented in this encounter Care Teams Registered Nurse Renal Relationship Specialty Start Date End Date Esmer Roland MD PCP - General Family Practice 09/21/10 01/29/17 documented as of this encounter
--- OUTSIDE RECORDS SUMMARY | 2022-04-30 09:33 | XMS_ITS | Encounter Summary ---
:1975 Author Organization [place] Address [address] [place] [address]. [place] [address] Care Team Providers Name Role Phone Esmer Roland MD Primary Care Provider [phone] Reason for Visit Reason Onset Date Comments Medication Request 10/13/2014 Lexapro 20mg Encounter Details Date Type Department Care Team Description 10/13/2014 Telephone [facility] Esmer Roland Medicat ion Request Clinic Sara Byrd MD (Lexapro 20mg) [address] [place] [address] [address] [place] [address] [place], [place] [phone] (Wo rk) [address] [phone] Social History Tobacco Use Types Packs/Day Years [...] unspecified documented in this encounter Care Teams Nurses Supervisor Relationship Specialty Start Date End Date Esmer Roland MD PCP - General Family Practice 09/21/10 01/29/17 documented as of this encounter
--- OUTSIDE RECORDS SUMMARY | 2022-04-30 09:34 | XMS_ITS | Encounter Summary ---
:1975 Author Organization [place] Address [address] [place] [address] Care Team Providers Name Role Phone Esmer Roland MD Primary Care Provider [phone] Reason for Visit Reason Onset Date Comments Refill Request 07/16/2013 sola oconnell Encounter Details Date Type Department Care Team Description 07/16/2013 Refill [facility] Esmer Roland Refill Request (anish, [facility] MD sola Byrd) [address] [place] [address] [place] [id number] [phone] Social History Tobacco Use Types Packs/Day Years [...] 3:42 PM CST Both Rx's faxed to [facility] ATION SAFETY OFFICER Telephone Encounter - Deidre Alas - 07/16/2013 12:03 PM CST LAST FILL DATE: ambien=02/19/13, phentermine=04/14/13 QTY: zolpidem=90, phentermine=30 Camilo Hammonds [facility] ATION SAFETY OFFICER documented in this encounter Plan of Treatment Not on filedocumented as of this encounter Visit Diagnoses Diagnosis Insomnia - Primary Insomnia, unspecified Obesity Obesity, unspecified documented in this encounter Care Teams Station Installer And Repairer Relationship Specialty Start Date End Date Esmer Roland MD PCP - General Family Practice 09/21/10 01/29/17 documented as of this encounter
--- OUTSIDE RECORDS SUMMARY | 2022-04-30 09:34 | XMS_ITS | Encounter Summary ---
:1975 Author Organization [place] Address [address] [place] [address]. [place] [address] Care Team Providers Name Role Phone Esmer Roland MD Primary Care Provider [phone] Reason for Visit Reason Onset Date Comments Refill Request 12/29/2012 LEXAPRO 20MG Encounter Details Date Type Department Care Team Description 12/29/2012 Refill [facility] Emser Roland Refill Request (LEXAPRO Clinic [place] MD Rochelle 20MG) [address] [facility], [address] [place] [address] [address] [place] [address] [place], [place] [phone] (Wo rk) [address] [phone] Social History Tobacco Use Types Packs/Day Years [...] on file at pharmacy. F[facility] Telephone Encounter - Shankar Durham - 12/29/2012 9:10 AM CDT LEXAPRO 20MG Last Fill Date: 11-23-2012 Last Fill Quantity: 30 Last Office Visit: 12-25-2012 Date of Last PHQ-9 score: 08-07-2012 Last PHQ-9 score on record= 9 RONNY RICKETTS [facility] (#36) [address] [place] [address] documented in this encounter Plan of Treatment Not on filedocumented as of this encounter Visit Diagnoses Diagnosis Major Depress Dis, Severe - Primary Major depressive disorder, single episod e, severe, without mention of psychotic behavior documented in this encounter Care Teams Liquor Merchant Relationship Specialty Start Date End Date Esmer Roland MD PCP - General Family Practice 09/21/10 01/29/17 documented as of this encounter
--- OUTSIDE RECORDS SUMMARY | 2022-04-30 09:34 | XMS_ITS | Encounter Summary ---
:1975 Author Organization [place] Address [address] [place] [address] Care Team Providers Name Role Phone Esmer Roland MD Primary Care Provider [phone] Reason for Visit Reason Comments Recheck Medication Phentermine Encounter Details Date Type Department Care Team Description 02/10/2013 Allied Health/Nurse Health [place] Rec heck Medication Visit Clinic [place] (Phentermine) [facility], [address] [place] [address] Social History Tobacco Use Types [...] unspecified documented in this encounter Care Teams Assistant Chief Of Police Relationship Specialty Start Date End Date Esmer Roland MD PCP - General Family Practice 09/21/10 01/29/17 documented as of this encounter
--- OUTSIDE RECORDS SUMMARY | 2022-04-30 09:34 | XMS_ITS | Encounter Summary ---
:1975 Author Organization [place] Address [address] [facility] [place] [address] Care Team Providers Name Role Phone Esmer Roland MD Primary Care Provider [phone] Reason for Visit Reason Onset Date Comments Results 02/25/2013 Encounter Details Date Type Department Care Team Description 02/25/2013 Telephone [facility] Women's Jeimy Christensen, Results [facility] [address] [place] [address] [facility] [address] [place] [address] [place] [address] [phone] Social History Tobacco Use Types Packs/Day Years [...] Dr. Jeimy Christensen DO Obstetrics and Gynecology [facility] [place] documented in this encounter Plan of Treatment Not on filedocumented as of this encounter Visit Diagnoses Diagnosis Vaginitis - Primary Vaginitis and vulvovaginitis, unspecifie d documented in this encounter Care Teams Focusing Machine Operator Relationship Specialty Start Date End Date Esmer Roland MD PCP - General Family Practice 09/21/10 01/29/17 documented as of this encounter
--- OUTSIDE RECORDS SUMMARY | 2022-04-30 09:34 | XMS_ITS | Encounter Summary ---
:1975 Author Organization [place] Address [address] [place] [address]. [place] [address] Care Team Providers Name Role Phone Esmer Roland MD Primary Care Provider [phone] Reason for Visit Reason Onset Date Comments Refill Request 03/16/2012 zolpidem 5mg Encounter Details Date Type Department Care Team Description 03/16/2012 Refill [facility] Esmer Roland Refill Request Clinic Sara Byrd MD (zolpidem 5mg) [address] [facility], [address] [place] [address] [address] [place] [address] [place], [place] [phone] (Wo rk) [address] [phone] Social History Tobacco Use Types Packs/Day Years [...] CDT Rx faxed Telephone Encounter - Ara iLz - 03/16/2012 2:06 PM CDT Last Fill Date: 11/07/2011 Last Fill Quantity: 90 Last Office Visit: 03/05/2012 Ara Liz CPhT [facility] documented in this encounter Plan of Treatment Not on filedocumented as of this encounter Visit Diagnoses Diagnosis Insomnia - Primary Insomnia, unspecified documented in this encounter Care Teams Monument Letterer Relationship Specialty Start Date End Date Esmer Roland MD PCP - General Family Practice 09/21/10 01/29/17 documented as of this encounter
--- OUTSIDE RECORDS SUMMARY | 2022-04-30 09:34 | XMS_ITS | Encounter Summary ---
:1975 Author Organization [place] Address [address] [facility] [place] [address] Care Team Providers Name Role Phone Esmer Roland MD Primary Care Provider [phone] Yony Garcia PA-C Primary Care Provider [phone] Yony Garcia PA-C Unavailable [phone] Erik Rivas Primary Care Provider Yony Garcia PA-C Unavailable [phone] Reason for Visit Reason Onset Date Comments Refill Request 06/08/2012 Paxil 20mg Encounter Details Date Type Department Care Team Description 06/08/2012 MyC Refill [facility] Esmer Roland Refill Request (Paxil Clinic [place] MD Rochelle 20mg) [address] [place] [address] [address] [place] [address] [place], [place] [phone] (Wo rk) [address] [phone] Social History Tobacco Use Types Packs/Day Years [...] approved per standing orders. Mayela Reese RN ON OFFICER Telephone Encounter - Mayela Reese - 06/08/2012 [...] needed Max Refills: 6mths Need updated PHQ-9. [employer] message sent. Mayela Reese RN ON OFFICER Telephone Encounter - Rosy Reeseique - 06/08/2012 1:51 PM PRISON OFFICER Message from [employer] Original authorizing provider: MD Dariana Man Veriot Jacqui would like a refill of the following medications: PARoxetine (PAXIL) 20 MG tablet [Esmer Roland MD] Preferred pharmacy: [facility] Comment: ON OFFICER documented in this encounter Plan of Treatment Not on filedocumented as of this encounter Visit Diagnoses Diagnosis ANXIETY STATE NOS - Primary Anxiety state, unspecified documented in this encounter Care Teams Tire Duster Relationship Specialty Start Date End Date Esmer Roland, PCP - General Family Practice 09/21/10 01/29/17 Yony Garcia, PCP - General Physician Butter Printer - 01/30/17 07/23/18 [facility] Yony Garcia, PCP - Assigned PCP 09/01/16 08/11/18 [facility] [address] SONJA KRAUSE [id number] Erik Rivas PCP - General Family Practice 07/24/[address] [address] Yony Garcia, Assigned PCP 09/01/16 [facility] [address] SNOJA KRAUSE [address] documented as of this encounter
--- OUTSIDE RECORDS SUMMARY | 2022-04-30 09:34 | XMS_ITS | Encounter Summary ---
:1975 Author Organization [place] Address [address] [place] [address]. [place] [address] Care Team Providers Name Role Phone Esmer oRland MD Primary Care Provider [phone] Reason for Visit Reason Onset Date Comments Refill Request 11/05/2012 Phentermine 37.5mg Encounter Details Date Type Department Care Team Description 11/05/2012 Refill [facility] Emser Roland Refill Request Clinic Sara Byrd MD (Phentermine 37.5mg) [address] [place] [address] [place], [place] [phone] (Wo rk) [address] [phone] Social History Tobacco Use Types Packs/Day Years [...] - 11/06/2012 10:43 AM CDT Faxed Andreea Rodriguez/Radial Arm Saw Operator Telephone Encounter - Mayela Reese - 11/05/2012 [...] unspecified documented in this encounter Care Teams Fisher Net Relationship Specialty Start Date End Date Esmer Roland MD PCP - General Family Practice 09/21/10 documented as of this encounter
--- OUTSIDE RECORDS SUMMARY | 2022-04-30 09:34 | XMS_ITS | Encounter Summary ---
:1975 Author Organization [place] Address [facility] [place] [address] Care Team Providers Name Role Phone Fawad Roland MD Primary Care Provider [phone] Reason for Visit Reason Comments Colposcopy Encounter Details Date Type Department Care Team Description 12/25/2012 Office Visit [facility] Fawad Roland l Pap smear, Clinic [place] [address] [place] [address] [facility], [address] (ASC-H) (Primary Dx) [place] [address] [id number] Social History Tobacco Use Types Packs/Day Years [...] Last office visit: 12/02/2012 Chelsea Mendoza CMA ([facility]) documented in this encounter Plan of [...] Time Signature HCG Qual Urine Negative NEG [facility] LAB Specimen Anatomical Collection Method Collection Time Receive d Time (Source) Location / / Volume Laterality Urine specimen 12/25/2012 8:31 AM 013 8:33 (specimen) CDT AM CDT Fawad Roland MD LAB - URINE ORDERABLES Performing Organization Address City/State/ZIP Code Phon e Number [facility] [place], [place] [phone] [facility] [place], [place] [phone] LAB Surgical pathology exam (12/25/2012 8:00 AM CDT) Component Value Ref Test Analysis Performed At [facility] gist Range Method Time Signature Copath Report Patient Name: DARIANA VALDEZ MR#: [id number] Specimen #: [id number] Collected: 12/25/2012 Received: 12/25/2012 Reported: 12/28/2012 15:59 [...] and malign juni. COMMENT: Previous Pap. Smear ([id number]) was signed as atypical squam ous cells, [...] was performed. MGP/kd 12-28-12 TESTING LAB LOCATION: [facility] [address] [address] [place], [place] ??[address] COLLECTION SITE: Client: [facility] Location: FMFP (R) Specimen Anatomical Collection [...] (ASC-H) documented in this encounter Care Teams Manager Image Relationship Specialty Start Date End Date Fawad Roland MD PCP - General Family Practice 09/21/10 01/29/17 documented as of this encounter
--- OUTSIDE RECORDS SUMMARY | 2022-04-30 09:34 | XMS_ITS | Encounter Summary ---
:1975 Author Organization [place] Address [facility] [place] [address] Care Team Providers Name Role Phone Esmer Roland MD Primary Care Provider [phone] Reason for Visit Reason Onset Date Comments Refill Request 03/10/2012 [place] Encounter Details Date Type Department Care Team Description 03/10/2012 Refill [facility] Esmer Roland Refill Request (Carlito) Clinic Sara Byrd MD [address] [place] [address], [address] [place] [address] [address] [place] [address] [place], [place] [phone] (Wo rk) [address] [phone] Social History Tobacco Use Types Packs/Day Years [...] Office Visit 03/05/12 Thank You [facility] Float Tech [email or web address] documented in this encounter Plan of Treatment Not on filedocumented as of this encounter Visit Diagnoses Diagnosis Insomnia - Primary Insomnia, unspecified documented in this encounter Care Teams Watcher Lookout Tower Relationship Specialty Start Date End Date Esmer Roland MD PCP - General Family Practice 09/21/10 01/29/17 documented as of this encounter
--- OUTSIDE RECORDS SUMMARY | 2022-04-30 09:34 | XMS_ITS | Encounter Summary ---
:1975 Author Organization [place] Address [facility] [place] [address] Care Team Providers Name Role Phone Esmer Roland MD Primary Care Provider [phone] Encounter Details Date Type Department Care Team Description 06/04/2012 E-Visit [facility] Esmer Roland D epress Dis, Clinic Sara Byrd MD Severe (Primary Dx) [facility], [address] [place] [address] [address] [place] [address] [place], [place] [phone] (Wo rk) [address] [phone] Social History Tobacco Use Types Packs/Day Years [...] Esmer Roland MD - 06/11/2012 10:09 AM SERVICE ORDER DISPATCHER Refills of paxil were sent over ICE ORDER DISPATCHER documented in this encounter Plan of Treatment Not on filedocumented as of this encounter Visit Diagnoses Diagnosis Major Depress Dis, Severe - Primary Major depressive disorder, single episod e, severe, without mention of psychotic behavior documented in this encounter Care Teams Child Care Provider Relationship Specialty Start Date End Date Esmer Roland MD PCP - General Family Practice 09/21/10 01/29/17 documented as of this encounter
--- OUTSIDE RECORDS SUMMARY | 2022-04-30 09:34 | XMS_ITS | Encounter Summary ---
:1975 Author Organization [place] Address [facility] [place] [address] Care Team Providers Name Role Phone Esmer Roland MD Primary Care Provider Reason for Visit Reason Onset Date Comments Refill Request 12/29/2012 Encounter Details Date Type Department Care Team Description 12/29/[address] [facility] Esmer Roland, Refill Request Sara BANERJEE [address] [place] [address], [address] [place] [address] [address] [place] [address] [place] [address] [phone] Social History Tobacco Use Types Packs/Day Years [...] on filedocumented in this encounter Care Teams Brewer Helper Relationship Specialty Start Date End Date Esmer Roland MD PCP - General Family Practice 09/21/10 01/29/17 documented as of this encounter
--- OUTSIDE RECORDS SUMMARY | 2022-04-30 09:34 | XMS_ITS | Encounter Summary ---
:1975 Author Organization [place] Address [address] [place] [address] Care Team Providers Name Role Phone Esmer Roland MD Primary Care Provider [phone] Reason for Visit Reason Comments Refill Request (6) months of refills. Recheck Medication Depression Increase the dose on the DIPIKA APRO. Encounter Details Date Type Department Care Team Description 04/02/2013 Office Visit [facility] Esmer Roland Insomni a (Primary Dx); Clinic Sara Byrd MD Obesity; [place] [address] Need for prophylactic vaccination and in oculation against influenza; Road, [address] [place], [place]XI[place]; [place] [address] Major Depress Dis, Severe [id number] Social History [...] Panic / Manic symptoms: Yes- anxiety PHQ-9 Cypriot PHQ-9 Any Language ?? Amount of exercise [...] Plan: See Patient Instructions Esmer Roland MD [facility] documented in this encounter Nursing [...] behavior documented in this encounter Care Teams Revenue Accountant Relationship Specialty Start Date End Date Esmer Roland MD PCP - General Family Practice 09/21/10 01/29/17 documented as of this encounter
--- OUTSIDE RECORDS SUMMARY | 2022-04-30 09:34 | XMS_ITS | Encounter Summary ---
:1975 Author Organization [place] Address [address] [facility] [place] [address] Care Team Providers Name Role Phone Esmer Roland MD Primary Care Provider [phone] Reason for Visit Reason Comments Depression med check/follow up, increas ed weight Pre Visit Planning - Done aet mychart 08/06/12 Encounter Details Date Type Department Care Team Description 08/07/2012 Office Visit [facility] Esmer Roland ANXIETY STATE NOS (Primary Dx); Clinic Sara Byrd MD Insomnia; [place] [address] Abnormal uterine bleeding; Road, [address] [place] [address] Mild major depression (H); [place], [place] [phone] (Wo rk) Vitamin d deficiency [id number] [phone] Social History Tobacco Use Types Packs/Day Years [...] Comments Blood Pressure 112/62 08/07/2012 8:23 AM TIRE MAKER Pulse 68 08/07/2012 8:23 AM TIRE MAKER Temperature 37 ??C (98.6 ??F) 08/07/2012 8:23 AM TIRE MAKER Respiratory Rate 14 08/07/2012 8:23 AM TIRE MAKER Oxygen Saturation - - Inhaled Oxygen Concentration - - Weight 98 kg (216 lb) 08/07/2012 8:23 AM TIRE MAKER Height 170.2 cm (5' 7) 08/07/2012 8:23 AM TIRE MAKER Body Mass Index 33.83 08/07/2012 8:23 AM TIRE MAKER documented in this encounter Patient Instructions Patient InstructionsDoEsmer dunham MD - 08/07/2012 8:43 AM TIRE MAKER The Mediterranean Diet can reduce your risk of Heart Disease and Stroke Recommended: Redmond oil >4 Tbs/day Tree nuts >3 handfuls/wk, [...] <1/day Or processed meats <1/day Taken from [place] [employer] Jul 2012 MAKER documented in this encounter Progress Notes Esmer [...] Panic / Manic symptoms: Yes- anxiety PHQ-9 Nicaraguan PHQ-9 Any Language ?? Amount of exercise [...] list, Allergies, and Medical/Social/Surgical histories reviewed in [facility] andupdated as appropriate. Labs reviewed in [facility] OBJECTIVE: BP 112/62 Pulse 68 [...] increase fruits/vegetables and avoid sweets. Esmer Roland [facility] MAKER documented in this encounter Nursing Notes 08/07/2012 [...] deficiency documented in this encounter Care Teams Salon Receptionist Relationship Specialty Start Date End Date Esmer Roland MD PCP - General Family Practice 09/21/10 01/29/17 documented as of this encounter
--- OUTSIDE RECORDS SUMMARY | 2022-04-30 09:34 | XMS_ITS | Encounter Summary ---
:1975 Author Organization [place] Address [address] [facility] [place] [address] Care Team Providers Name Role Phone Fawad Roland MD Primary Care Provider [phone] Reason for Visit Reason Comments Physical Physical and Pap. Recheck Medication Patient has questions about the dosage of the phetermine. Refill Request Encounter Details Date Type Department Care Team Description 11/23/2012 [facility] Routine general medical examination at a health care facility (Primary Dx); Clinic Sara Byrd MD Obesity; [place] [address] Insomnia; [address], [address] [place] [address] Major Depress Dis, Severe [place], [place] [phone] (Wo rk) [address] [phone] Social History Tobacco Use Types Packs/Day Years [...] recommended All Histories reviewed and updated in [facility]. ROS: C: NEGATIVE for fever, [...] and Medical/Social/Surgical histories reviewed in [facility] andupdated as appropriate. Labs reviewed in [facility] OBJECTIVE: BP 126/70 Pulse 70 Temp 98.3 [...] lb 8 oz(92.307 kg). Fawad Roland MD [facility] documented in this encounter Nursing Notes 11/23/2012 [...] examination procedur e are in at a [facility] care the results facility section. WET PREPARATION Routine 11/23/2012 12:22 Routine general Resul ts for this PM CDT medical examination procedur e are in at a [facility] the results facility section. VITAMIN D DEFICIENCY Routine 11/23/2012 12:15 Routine general Results for this SCREENING PM CDT medical examination procedur e are in at a [facility] care the results facility section. TSH WITH FREE T4 Routine 11/23/2012 12:15 Routine general Resu lts for this REFLEX PM CDT medical examination procedur e are in at a [facility] care the results facility section. LIPID REFLEX TO DIRECT Routine 11/23/2012 12:15 Routine genera l Results for this LDL PANEL PM CDT medical examination procedur e are in at a [facility] care the results facility section. COMPREHENSIVE Routine 11/23/2012 12:15 Routine general Results for this METABOLIC PANEL PM CDT medical examination proce dure are in at a [facility] care the results facility section. CBC WITH PLATELETS Routine 11/23/2012 12:15 Routine general Re sults for this PM CDT medical examination procedur e are in at a [facility] care the results facility section. PAP IMAGED THIN LAYER Routine 11/23/2012 12:00 Routine general Results for this SCREEN AM CDT medical examination procedur e are in at a [facility] care the results facility section. documented in this encounter Results (ABNORMAL) Urine Microscopic (11/23/2012 12:24 PM CDT) Analysis Performed At Patho logist Time Signature WBC Urine 2-5 (A) 0 - 2 /HPF [facility] RBC Urine O - 2 0 - 2 /HPF [facility] Squamous Few FEW /LPF [place] Epithelial /LPF [facility] LAB Specimen Anatomical Collection Method Collection Time Receive d Time (Source) Location / / Volume Laterality 11/23/2012 12:24 11/23/2012 PM CDT 12:26 PM CDT Fawad Roland MD LAB - URINE ORDERABLES Performing Organization Address City/[facility]/ZIP Code Phon e Number [facility] [place], [place] [phone] [address] [phone] LAB (ABNORMAL) UA reflex to Microscopic and Culture (11/23/2012 12:24 PM CDT) [facility] Method Time Signature Color Urine Yellow [facility] Appearance Urine Clear [facility] Glucose Urine Negative NEG mg/dL [facility] Bilirubin Urine Negative NEG [facility] Ketones Urine Negative NEG mg/dL [facility] Specific [place] 1.015 1.003 - [place] Urine 1.035 [facility] Blood Urine Trace (A) NEG [facility] pH Urine 7.5 (H) 5.0 - 7.0 [place] pH [facility] LAB Protein Albumin Negative NEG mg/dL [place] Urine [facility] Urobilinogen 0.2 0.2 - 1.0 [place] Urine EU/dL [facility] Nitrite Urine Negative NEG [facility] Leukocyte Negative NEG [place] Esterase Urine [facility] Source Midstream [place] Urine [facility] LAB Specimen Anatomical Collection Method Collection Time Receive d Time (Source) Location / / Volume Laterality Urine specimen 11/23/2012 12:24 3 (specimen) PM CDT 12:26 PM CDT Fawad Roland MD LAB - URINE ORDERABLES Performing Organization Address City/[facility]/ZIP Code Phon e Number [facility] [place] [address] [place] [id number] [place], [place] [phone] LAB Chlamydia trachomatis PCR (11/23/2012 12:23 PM CDT) Component Value Ref Test Analysis Performed At [facility] Method Time Signature Specimen V[place] Description [facility] Chlamydia Negative for C. trachomatis rRNA by retirement assistant mediated amplification. [facility] Trachomatis A negative result [...] GENERAL ORDERABL ES Performing Organization Address City/[facility] Code Phon e Number [address] [place] [address] LAB [facility] MICROBIOLOGY Neisseria gonorrhoeae PCR (11/23/2012 12:23 PM CDT) Component Value Ref Test Analysis Performed At [facility] Method [place] Signature Specimen [place] Descrip [facility] N Gonorrhea Negative for N. gonorrhoeae rRNA by retirement assistant mediated amplification. [facility] PCR A negative result [...] GENERAL ORDERABL ES Performing Organization Address City/[facility] Phon e Number [address] [place] [address] LAB [facility] MICROBIOLOGY Wet prep (11/23/2012 12:22 PM CDT) Component Value Ref Test Analysis Performed At [facility] Method Time Signature Specimen [place] Description [facility] LAB Wet Prep No Trichomonas seen [place] No clue cells seen BEREA No yeast seen [facility] Micro Report FINAL [place] Status 11/23/2012 [facility] LAB Specimen Anatomical Collection Method Collection Time Receive d Time (Source) Location / / Volume Laterality 11/23/2012 12:22 11/23/2012 PM CDT 12:24 PM CDT Fawad Roland MD LAB - MICRO GENERAL ORDERABL ES Performing Organization Address City/[facility]/ZIP Code Phon e Number [facility] [address] [facility] [place] [address] LAB Vitamin D Deficiency (11/23/2012 12:15 PM CDT) athologist Signature Vitamin D 52 30 - 75 [facility] Deficiency ug/L [place] [facility] screening Comment: Season, race, dietary intake, and treatm ent affect the concentration of 37-uyelkpv-Ngxcxbe D. Values may decrea se during winter [...] questions, pl ease contact the laboratory at [phone]. Specimen Anatomical Collection Method Collection Time Receive d Time (Source) Location / / Volume Laterality Blood specimen 11/23/2012 12:15 3 (specimen) PM CDT 12:17 PM CDT Fawad Roland MD LAB - BLOOD ORDERABLES Performing Organization Address City/State/ZIP Code Phon e Number [address] [address] [facility] CBC with platelets (11/23/2012 12:15 PM CDT) athologist Signature WBC 9.0 4.0 - 11.0 [facility] 10e9/L [facility] RBC Count 4.39 3.8 - 5.2 [place] 10e12/L [facility] Hemoglobin 13.7 11.7 - [facility] 15.7 g/dL [facility] Hematocrit 39.7 35.0 - [facility] 47.0 % [facility] MCV 90 78 - 100 [facility] fl [facility] MCH 31.2 26.5 - [facility] 33.0 pg [facility] MCHC 34.5 31.5 - [facility] 36.5 g/dL [facility] RDW 12.5 10.0 - [facility] 15.0 % [facility] Platelet Count 314 150 - 450 [place] 10e9/L [facility] Specimen Anatomical Collection Method Collection Time Receive d Time (Source) Location / / Volume Laterality Blood specimen 11/23/2012 12:15 3 (specimen) PM CDT 12:17 PM CDT Fawad Roland MD LAB - BLOOD ORDERABLES Performing Organization Address City/[facility] Code Phon e Number [facility] [place], [place] [phone] [facility] [place], [place] [phone] LAB TSH with free T4 reflex (11/23/2012 12:15 PM CDT) athologist Signature TSH 2.38 0.4 - 5.0 [place] [facility] LAB Specimen Anatomical Collection Method Collection Time Receive d Time (Source) Location / / Volume Laterality Blood specimen 11/23/2012 12:15 3 (specimen) PM CDT 12:17 PM CDT Fawad Roland MD LAB - BLOOD ORDERABLES Performing Organization Address City/[facility] Code Phon e Number [facility] [address], [place] [address] [facility] [address] [place] [address] (ABNORMAL) Comprehensive metabolic panel (11/23/2012 12:15 PM CDT) P athologist Signature Sodium 139 133 - 144 [place] mmol/L [facility] LAB Potassium 4.2 3.4 - 5.3 [place] mmol/L [facility] Chloride 101 94 - 109 [place] mmol/L [facility] Carbon Dioxide 26 20 - 32 [place] mmol/L [facility] Anion Gap 12 6 - 17 [place] mmol/L [facility] Glucose 87 60 - 99 [place] mg/dL [facility] Urea Nitrogen 6 5 - 24 [place] mg/dL [facility] LAB Creatinine 0.79 0.52 - [place] 1.04 mg/dL [facility] LAB GFR Estimate 83 >60 [place] mL/min/1.7 [facility] m2 LAB GFR Estimate If >90 >60 [place] Black mL/min/1.7 [facility] m2 LAB Calcium 9.2 8.5 - 10.4 [place] mg/dL [facility] LAB Bilirubin Total 0.2 0.2 - 1.3 [place] mg/dL [facility] Albumin 3.8 (L) 3.9 - 5.1 [place] g/dL [facility] LAB Comment: Reference range changed on 02/08. Protein Total 7.0 6.8 - 8.8 g/dL [facility] Comment: As of 07, reference range reflects plasma specimen type. Alkaline Phosphatase 64 40 - 150 U/L [facility] ALT 28 0 - 50 U/L [facility] CLIN IC LAB AST 25 0 - 45 U/L [facility] CLIN IC LAB Specimen Anatomical Collection Method Collection Time Receive d Time (Source) Location / / Volume Laterality Blood specimen 11/23/2012 12:15 3 (specimen) PM CDT 12:17 PM CDT Fawad Roland MD LAB - BLOOD ORDERABLES Performing Organization Address City/State/ZIP Code Phon e Number [facility] [address] [place] [address] [phone] [facility] LAB [address] [place] [address] [phone] (ABNORMAL) Lipid panel reflex to direct LDL (11/23/2012 12:15 PM CDT) athologist Signature Cholesterol 154 0 - 200 [facility] mg/dL CLINIC LAB Comment: LDL Cholesterol is the primary guide to therapy. The NCEP recommends further evaluation of: patients with cholesterol greater than 200 mg/dL if additional risk facto rs are present, cholesterol greater than 240 mg/dL, triglycerides greater than 1 50 mg/dL, or HDL less than 40 mg/dL. Triglycerides 200 (H) 0 - 150 mg/dL [facility] HDL Cholesterol 50 50 - 110 mg/dL [facility] LDL Cholesterol Calculated 64 0 - 129 mg/dL [facility] Comment: LDL Cholesterol is the primary guide to therapy: LDL-cholesterol goal in high risk patients is <100 mg/dL and in very high risk patients is <70 mg/dL. VLDL-Cholesterol 40 (H) 0 - 30 mg/dL [facility] Cholesterol/HDL Ratio 3.1 0.0 - 5.0 [facility] LAB Specimen Anatomical Collection Method Collection Time Receive d Time (Source) Location / / Volume Laterality Blood specimen 11/23/2012 12:15 3 (specimen) PM CDT 12:17 PM CDT Fawad Roland MD LAB - BLOOD ORDERABLES Performing Organization Address City/State/ZIP Code Phon e Number [facility] [address] [place] [address] [phone] [facility] [address] [place] [address] (ABNORMAL) PAP imaged thin layer screen (11/23/2012 12:00 AM CDT) Component Value Ref Test Analysis Performed At [facility] Range Method Time Signature PAP ASC-H (A) COPATH Copath Report COPATH Patient Name: DARIANA VALDEZ MR#: [id number] Specimen #: [id number] Collected: 11/23/2012 Received: 11/24/2012 Reported: 11/26/2012 09:24 [...] Litzy Mejia M.D. Processed and screened at [facility] CLINICAL HISTORY: LMP: 2012 Previous normal pap Date of Last Pap: 11/09/2010, Papanicolaou Test Limitations: ??Cervical cytology is a scre ening test with limited sensitivity; regular screening is critical for cancer prevention; Pap tests are primarily effective for the diagnosis/prevention of squamous cell carcinoma, not adenoca rcinomas or other cancers. TESTING LAB LOCATION: [address] ??[phone] COLLECTION SITE: Client: ??[facility] Location: [facility] (R) Specimen (Source) Anatomical Collection [...] behavior documented in this encounter Care Teams Ground Wood Supervisor Relationship Specialty Start Date End Date Fawad Roland MD PCP - General Family Practice 09/21/10 01/29/17 documented as of this encounter
--- OUTSIDE RECORDS SUMMARY | 2022-04-30 09:34 | XMS_ITS | Encounter Summary ---
:1975 Author Organization [place] Address [address] [facility] [place] [address] Care Team Providers Name Role Phone Esmer Roland MD Primary Care Provider [phone] Reason for Visit Reason Comments Recheck Medication Blood Draw Patient requesting labs to mouna glover drawn. Patient has thyroid concerns. Abnormal Bleeding Problem Irregular periods. Patient w as bleeding most of December. Alot of vaginal pressure. Constipation Encounter Details Date Type Department Care Team Description 03/05/2012 Office Visit [facility] Esmer Roland uterine bleeding (Primary Dx); Clinic Sara Byrd MD Insomnia; [place] [address] [facility], [address] [place] [address] [place], [place] [phone] (Wo rk) [address] [phone] Social History Tobacco Use Types Packs/Day Years [...] but not now, doing very well PHQ-9 Bahraini PHQ-9 Any Language ?? Amount of exercise [...] 03/05/2012 9:30 AM CDT >> MELISSA JANSEN [facility] Mar 05, 2012 9:43 AM Patient [...] athologist Signature Cholesterol 184 0 - 200 [facility] mg/dL CLINIC LAB Comment: LDL Cholesterol is the primary guide to therapy. The NCEP recommends further evaluation of: patients with cholesterol greater than 200 mg/dL if additional risk facto rs are present, cholesterol greater than 240 mg/dL, triglycerides greater than 1 50 mg/dL, or HDL less than 40 mg/dL. Triglycerides 135 0 - 150 mg/dL [facility] HDL Cholesterol 46 (L) 50 - 110 mg/dL [facility] LDL Cholesterol Calculated 111 0 - 129 mg/dL [facility] Comment: LDL Cholesterol is the primary guide to therapy: LDL-cholesterol goal in high risk patients is <100 mg/dL and in very high risk patients is <70 mg/dL. VLDL-Cholesterol 27 0 - 30 mg/dL [facility] Cholesterol/HDL Ratio 4.0 0.0 - 5.0 [facility] Specimen Anatomical Collection Method Collection Time Receive d Time (Source) Location / / Volume Laterality Blood specimen 03/05/2012 10:06 2 (specimen) AM CDT 10:08 AM CDT Esmer Roland MD LAB - BLOOD ORDERABLES Performing Organization Address [facility]/ZIP Code Phon e Number [address] [address] [phone] [facility] Basic metabolic panel (03/05/2012 10:06 AM CDT) P athologist Signature Sodium 141 133 - 144 [place] mmol/L CLINIC LAB Potassium 4.8 3.4 - 5.3 [facility] [place] mmol/L [facility]INIC LAB Chloride 106 94 - 109 [facility] [place] mmol/L [facility]IC LAB Carbon Dioxide 24 20 - 32 [facility] mmol/L [facility]INIC LAB Anion Gap 11 6 - 17 [facility] [place] mmol/L [facility]INIC LAB Glucose 83 60 - 99 [facility] [place] mg/dL CLINIC LAB Urea Nitrogen 11 5 - 24 [facility] mg/dL [facility]INIC LAB Creatinine 0.90 0.52 - [facility] [place] 1.04 mg/dL CLINIC LAB GFR Estimate 72 >60 [facility] [place] mL/min/1.7 CLINIC LAB m2 GFR Estimate If 87 >60 [facility] Black mL/min/1.7 CLINIC LAB m2 Calcium 9.4 8.5 - 10.4 [facility] [place] mg/dL CLINIC LAB Specimen Anatomical Collection Method Collection Time Receive d Time (Source) Location / / Volume Laterality Blood specimen 03/05/2012 10: 2 (specimen) AM CDT 10:08 AM CDT Esmer Roland MD LAB - BLOOD ORDERABLES Performing Organization Address City/[facility]/ZIP Code Phon e Number [address] [address] [phone] [facility] TSH with free T4 reflex (03/05/2012 10:06 AM CDT) athologist Signature TSH 1.21 0.4 - 5.0 [place] mU/L CLINIC LAB Specimen Anatomical Collection Method Collection Time Receive d Time (Source) Location / / Volume Laterality Blood specimen 03/05/2012 10: 2 (specimen) AM CDT 10:08 AM CDT Esmer Roland MD LAB - BLOOD ORDERABLES Performing Organization Address City/State/ZIP Code Phon e Number [facility] [address] [place] [address] [facility] documented in this encounter Visit Diagnoses Diagnosis Abnormal uterine bleeding - Primary Unspecified disorder of menstruation and other abnormal bleeding from female genital tract Insomnia Insomnia, unspecified Obesity Obesity, unspecified documented in this encounter Care Teams Car Coupler Relationship Specialty Start Date End Date Esmer Roland MD PCP - General Family Practice 09/21/10 01/29/17 documented as of this encounter
--- OUTSIDE RECORDS SUMMARY | 2022-04-30 09:34 | XMS_ITS | Encounter Summary ---
:1975 Author Organization [place] Address [facility] [place] [address] Care Team Providers Name Role Phone Esmer Roland MD Primary Care Provider [phone] Reason for Visit Reason Onset Date Comments Refill Request 01/05/2013 Phentermine Encounter Details Date Type Department Care Team Description 01/05/2013 Refill [facility] Esmer Roland Refill Request Clinic Sara Byrd MD (Phentermine) [address] [place] [address], [address] [place] [address] [address] [place] [address] [place], [place] [phone] (Wo rk) [address] [phone] Social History Tobacco Use Types Packs/Day Years [...] documented in this encounter Care Teams Vp Care Management Relationship Specialty Start Date End Date Esmer Roland MD PCP - General Family Practice 09/21/10 01/29/17 documented as of this encounter
--- OUTSIDE RECORDS SUMMARY | 2022-04-30 09:34 | XMS_ITS | Encounter Summary ---
:1975 Author Organization [place] Address [address] [place] [address] Care Team Providers Name Role Phone Esmer Roland MD Primary Care Provider [phone] Reason for Visit Reason Comments Weight Check Encounter Details Date Type Department Care Team Description 09/22/2012 Allied Health/Nurse [facility] Weight Check Visit [address], [address] [place] [address] Social History Tobacco Use [...] Body Mass Index 33.2 08/07/2012 8:23 AM IN HOME BABY SITTER documented in this encounter Progress Notes Mayela Reese - 09/22/2012 1:41 PM CDT Weight and blood pressure check. Mayela Reese RN documented in this encounter Plan of Treatment Not on filedocumented as of this encounter Visit Diagnoses Diagnosis Obesity - Primary Obesity, unspecified documented in this encounter Care Teams Drink Box Mechanic Relationship Specialty Start Date End Date Esmer Roland MD PCP - General Family Practice 09/21/10 01/29/17 documented as of this encounter
--- OUTSIDE RECORDS SUMMARY | 2022-04-30 09:34 | XMS_ITS | Encounter Summary ---
:1975 Author Organization [place] Address [address] [place] [address] Care Team Providers Name Role Phone Esmer Roland MD Primary Care Provider [phone] Reason for Visit Reason Comments Hypertension Blood pressure check Encounter Details Date Type Department Care Team Description 11/05/2012 [facility] Hypertensi on (Blood Health/Nurse Visit Clinic [place] pressure check) [facility], [address] [place] [address] Social History Tobacco Use Types [...] Body Mass Index 31.25 08/07/2012 8:23 AM DIRECTOR CONSUMER AFFAIRS documented in this encounter Progress Notes Mayela Reese - 11/05/2012 1:14 PM CDT Patient here to check weight, bp and pulse for continuing medication Phentermine. Mayela Reese RN documented in this encounter Plan of Treatment Not on filedocumented as of this encounter Visit Diagnoses Diagnosis Obesity - Primary Obesity, unspecified documented in this encounter Care Teams Wire Repairer Relationship Specialty Start Date End Date Esmer Roland MD PCP - General Family Practice 09/21/10 01/29/17 documented as of this encounter
--- OUTSIDE RECORDS SUMMARY | 2022-04-30 09:34 | XMS_ITS | Encounter Summary ---
:1975 Author Organization [place] Address [address] [facility] [address] Care Team Providers Name Role Phone Esmer Roland MD Primary Care Provider [phone] Reason for Visit Reason Comments Depression follow up med check Pre Visit Planning - Done aet mychart 07/27/12 Abnormal Uterine Bleeding breakthrough bleeding 3-5 da ys per month and after intercourse Encounter Details Date Type Department Care Team Description 07/31/2012 Office Visit [facility] Sara Byrd MD ENCOUNTER--DISREGARD [place] [address] [facility] (Primary Dx) [facility], [address] [place] [address] [place], [place] [phone] (Wo rk) [address] [phone] Social History Tobacco Use Types Packs/Day Years [...] MD - 08/03/2012 10:05 AM CST error S BUILDER documented in this encounter Plan of Treatment Not on filedocumented as of this encounter Visit Diagnoses Diagnosis ERRONEOUS ENCOUNTER--DISREGARD - Primary documented in this encounter Care Teams Campus Security Director Relationship Specialty Start Date End Date Esmer Roland MD PCP - General Family Practice 09/21/10 01/29/17 documented as of this encounter
--- OUTSIDE RECORDS SUMMARY | 2022-04-30 09:34 | XMS_ITS | Encounter Summary ---
:1975 Author Organization [place] Address [address] [place] [address] Care Team Providers Name Role Phone Esmer Roland MD Primary Care Provider [phone] Reason for Visit Reason Onset Date Comments Refill Request 02/18/2013 Escitalopram 20, Phe ntermine, Zolpidem Encounter Details Date Type Department Care Team Description 02/18/2013 Refill [facility] Esmer Roland Refill Request Clinic [place] MD Rochelle (Escitalopram 20, [address] [place] [address] Phentermine, Zolpidem) [place], [place] [id number] [phone] Social History Tobacco Use Types Packs/Day Years [...] she wanted the prescriptions to go to [facility]. RX's faxed to pharmacy. Mayela Hugh, RN Telephone Encounter - Esmer Roland MD - 02/19/2013 11:59 AM CDT Sent to [facility] and printed Telephone Encounter - Elva Grissom - 02/18/2013 3:38 PM CDT Escitalopram Last Fill Date: 01/25/13 Last Fill Quantity: 30 Last Office Visit: 12/25/12 Phentermine Last Fill Date: 01/06/13 Last Fill Quantity: 30 Last Office Visit: 12/25/12 Zolpidem Last Fill Date: 08/13/12 Last Fill Quantity: 90 Last Office Visit: 12/25/12 Elva Grissom, Culinary Art Teacher [address] [place] [address] documented in this encounter Plan of Treatment Not on filedocumented as of this encounter Visit Diagnoses Diagnosis Major Depress Dis, Severe - Primary Major depressive disorder, single episod e, severe, without mention of psychotic behavior Obesity Obesity, unspecified Insomnia Insomnia, unspecified documented in this encounter Care Teams Outside Sales Manager Relationship Specialty Start Date End Date Esmer Roland MD PCP - General Family Practice 09/21/10 01/29/17 documented as of this encounter
--- OUTSIDE RECORDS SUMMARY | 2022-04-30 09:34 | XMS_ITS | Encounter Summary ---
:1975 Author Organization [place] Address [facility] [place] [address] Care Team Providers Name Role Phone Esmer Roland MD Primary Care Provider [phone] Reason for Visit Reason Onset Date Comments Refill Request 02/08/2012 Encounter Details Date Type Department Care Team Description 02/08/2012 Refill [facility] Esmer Roland, Refill Request Carmen Brewer MD [address] [place] [phone] [place] [address] (Wo rk) Social History Tobacco Use [...] unspecified documented in this encounter Care Teams Gas Fitter Helper Relationship Specialty Start Date End Date Esmer Roland MD PCP - General Family Practice 09/21/10 01/29/17 documented as of this encounter
--- OUTSIDE RECORDS SUMMARY | 2022-04-30 09:34 | XMS_ITS | Encounter Summary ---
:1975 Author Organization [place] Address [address] [facility] 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) Esmer Roland, [facility] [address] [place] [address] Referral ID Status Reason Start Date Expiration Date Visits Requ ested Visits Authorized [id number] Closed 12/28/2012 06/26/2013 1 1 Reason for Visit Reason Onset Date Comments Results 12/28/2012 Encounter Details Date Type Department Care Team Description 12/28/2012 Telephone [facility] Esmer Roland, Results Sara BANERJEE [address] [facility], [address] [place] [address] [place] [address] [phone] Social History Tobacco Use Types Packs/Day Years [...] notified and phone number for OBGYN in [place] given. Mayela Reese RN Telephone Encounter - Esmer Roland MD - 12/28/2012 4:15 PM CDT Pt with high grade changes on colposcopy, pt needs referral and f/u with ORDER CONTROL CLERK BLOOD BANK. Please call pt documented in this encounter Plan of Treatment Scheduled Referrals Name Type Priority Associated Diagnoses Order S chedule PRECISION OPTICAL GOODS WORKER REFERRAL Referral Routine Papanicolaou smear of vag enrique Ordered: 12/28/2012 with high grade squamous intraepithelial lesion (HGSI L) documented as of this encounter Visit Diagnoses Diagnosis Papanicolaou smear of vagina with high g rade squamous intraepithelial lesion (HGSIL) - Primary documented in this encounter Care Teams Able Bodied Watchman Relationship Specialty Start Date End Date Esmer Roland MD PCP - General Family Practice 09/21/10 01/29/17 documented as of this encounter
--- OUTSIDE RECORDS SUMMARY | 2022-04-30 09:34 | XMS_ITS | Encounter Summary ---
:1975 Author Organization [place] Address [address] [place] [address] Care Team Providers Name Role Phone Esmer Roland MD Primary Care Provider [phone] Reason for Visit Reason Comments RECHECK Wt,bp, pulse Encounter Details Date Type Department Care Team Description 01/28/2013 Allied Health/Nurse [facility] REC HECK (Wt,bp, pulse) Visit Clinic [address], [address] [place] [address] Social History Tobacco Use Types [...] unspecified documented in this encounter Care Teams Research Fellow Relationship Specialty Start Date End Date Esmer Roland MD PCP - General Family Practice 09/21/10 01/29/17 documented as of this encounter
--- OUTSIDE RECORDS SUMMARY | 2022-04-30 09:34 | XMS_ITS | Encounter Summary ---
:1975 Author Organization [place] Address [address] [facility] 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 Jeimy Christensen DO Obstetrics and Gynecology [facility] documented in this encounter Progress Notes Jeimy [...] Dr. Jeimy Christensen DO Obstetrics and Gynecology [facility] documented in this encounter Nursing Notes 02/18/2013 1:45 PM CDT >> MARY DIEGO [facility] Feb 18, 2013 3:40 PM 2% Xylocaine with epinephrine used for cervical block. Lot: [id number] Exp: 12/20 Mary Diego MANAGER FLEET >> MARY DIEGO [facility] Feb 18, 2013 2:04 PM Patient [...] completed using cuff size: large Mary Diego MANAGER FLEET documented in this encounter Plan of Treatment [...] Component Value Ref Test Analysis Performed At [facility] Method Time Signature Copath Report Patient Name: DARIANA VALDEZ MR#: [id number] Specimen #: [id number] Collected: 02/18/2013 Received: 02/19/2013 Reported: 02/22/2013 13:15 [...] is identified. KARLEE/liseth 02-22-13 TESTING LAB LOCATION: [address] ??[id number] COLLECTION SITE: Client: [facility] Location: RIOB (R) Specimen Anatomical Collection Method Collection Time Receive d Time (Source) Location / / Volume Laterality 02/18/2013 3:00 PM 3 7:12 CDT AM CDT Jeimy Christensen DO [facility] Performing Organization Address City/State/ZIP Code Phon [...] cervix documented in this encounter Care Teams Front End Loader Driver Relationship Specialty Start Date End Date Fawad Roland MD PCP - General Family Practice 09/21/10 01/29/17 documented as of this encounter
--- OUTSIDE RECORDS SUMMARY | 2022-04-30 09:34 | XMS_ITS | Encounter Summary ---
:1975 Author Organization [place] Address [facility] [place] [address] Care Team Providers Name Role Phone Esmer Roland MD Primary Care Provider [phone] Reason for Visit Reason Onset Date Comments Refill Request 04/06/2012 Xanax Encounter Details Date Type Department Care Team Description 04/06/2012 Refill [facility] Esmer Roland Refill Request (Xanax) Clinic Sara Byrd MD [address] [place] [address], [address] [place] [address] [address] [place] [address] [place], [place] [phone] (Wo rk) [address] [phone] Social History Tobacco Use Types Packs/Day Years [...] unspecified documented in this encounter Care Teams Lvn Relationship Specialty Start Date End Date Esmer Roland MD PCP - General Family Practice 09/21/10 01/29/17 documented as of this encounter
--- OUTSIDE RECORDS SUMMARY | 2022-04-30 09:35 | XMS_ITS | Encounter Summary ---
:1975 Author Organization [place] Address [address] [place] [address]. [place] [address] Care Team Providers Name Role Phone Esmer Roland MD Primary Care Provider [phone] Reason for Visit Reason Onset Date Comments Refill Request 03/06/2011 LORAZEPAM 1MG Encounter Details Date Type Department Care Team Description 03/06/2011 Refill [facility] Esmer Roland Refill Request Clinic Sara Byrd MD (LORAZEPAM 1MG) [address] [place] [address], [address] [place] [address] [address] [place] [address] [place], [place] [phone] (Wo rk) [address] [phone] Social History Tobacco Use Types Packs/Day Years [...] in this encounter Care Teams Middle School Football Coach Relationship Specialty Start Date End Date Esmer Roland MD PCP - General Family Practice 09/21/10 01/29/17 documented as of this encounter
--- OUTSIDE RECORDS SUMMARY | 2022-04-30 09:35 | XMS_ITS | Encounter Summary ---
:1975 Author Organization [place] Address [address] [facility] [place] [address] Care Team Providers Name Role Phone Esmer Roland MD Primary Care Provider [phone] Reason for Visit Reason Onset Date Comments Medication Request 03/21/2011 AMBIEN 1OMG VS 5MG Encounter Details Date Type Department Care Team Description 03/21/2011 Telephone [facility] Esmer Roland Medicat ion Request Clinic [place] (AMBIEN 1OMG VS 5MG) [address] [place] [address] [place] [id number] [phone] Social History Tobacco Use Types Packs/Day Years [...] NEW RX SENT OVER. THANKS! [facility] documented in this encounter Plan of Treatment Not on filedocumented as of this encounter Visit Diagnoses Diagnosis Insomnia - Primary Insomnia, unspecified documented in this encounter Care Teams Honey Processor Relationship Specialty Start Date End Date Esmer Roland MD PCP - General Family Practice 09/21/10 01/29/17 documented as of this encounter
--- OUTSIDE RECORDS SUMMARY | 2022-04-30 09:35 | XMS_ITS | Encounter Summary ---
:1975 Author Organization [place] Address [address] [place] [address] Care Team Providers Name Role Phone Esmer Roland MD Primary Care Provider Reason for Visit Reason Comments Radiology Visit Encounter Details Date Type Department Care Team Description 12/13/2010 Orders Only [facility] Rig ht foot pain (Primary [place] Dx) [facility], [address] [place] [address] Social History Tobacco Use [...] AM HISTORY: ??Pain. COMPARISON: ??None. IMPRESSION: ??Negative. Esmer Roland MD IMG DIAGNOSTIC IMAGING ORDER VERONICA documented in this encounter Visit Diagnoses Diagnosis Right foot pain - Primary Pain in limb documented in this encounter Care Teams Travel Professional Relationship Specialty Start Date End Date Esmer Roland MD PCP - General Family Practice 09/21/10 01/29/17 documented as of this encounter
--- OUTSIDE RECORDS SUMMARY | 2022-04-30 09:35 | XMS_ITS | Encounter Summary ---
:1975 Author Organization [place] Address [facility] [place] [address] Care Team Providers Name Role Phone Esmer Roland MD Primary Care Provider [phone] Reason for Visit Reason Onset Date Comments Refill Request 11/06/2011 Carlito Juarez Encounter Details Date Type Department Care Team Description 11/06/2011 Refill [facility] Esmer Roland Refill Request (Ann, [facility] MD Carlito Byrd) [address] [facility], [address] [place] [address] [address] [place] [address] [place], [place] [phone] (Wo rk) [address] [phone] Social History Tobacco Use Types Packs/Day Years [...] unspecified documented in this encounter Care Teams Milk Powder Grinder Relationship Specialty Start Date End Date Esmer Roland MD PCP - General Family Practice 09/21/10 01/29/17 documented as of this encounter
--- OUTSIDE RECORDS SUMMARY | 2022-04-30 09:35 | XMS_ITS | Encounter Summary ---
:1975 Author Organization [place] Address [facility] [address] Care Team Providers Name Role Phone Esmer Roland MD Primary Care Provider [phone] Reason for Visit Reason Onset Date Comments Depression 02/05/2011 Encounter Details Date Type Department Care Team Description 02/05/2011 Telephone [facility] Esmer Roland, Depression Sara BANERJEE [address] [facility], [address] [place] [address] [address] [place] [address] [place] [address] [phone] Social History Tobacco Use Types Packs/Day Years [...] Primary documented in this encounter Care Teams Critical Care Transport Nurse Relationship Specialty Start Date End Date Esmer Roland MD PCP - General Family Practice 09/21/10 01/29/17 documented as of this encounter
--- OUTSIDE RECORDS SUMMARY | 2022-04-30 09:35 | XMS_ITS | Encounter Summary ---
:1975 Author Organization [place] Address [address] [place] [address]. [place] [address] Care Team Providers Name Role Phone Esmer Roland MD Primary Care Provider Reason for Visit Reason Onset Date Comments Refill Request 05/06/2011 Tori Esteban Encounter Details Date Type Department Care Team Description 05/06/2011 Refill [facility] Esmer Roland Refill Request (Carlito, Clinic [place] Ativan) [address] [facility], [address] [place] [address] [address] [place] [address] [place], [place] [phone] (Wo rk) [address] [phone] Social History Tobacco Use Types Packs/Day Years Used Date Smoking Tobacco: Former Smokeless Tobacco: Never Comments: Very Occasional Alcohol Use Standard Drinks/Week Comments Yes 0 (1 standard drink = 0.6 oz pure alcoho l) 1 qo weekend Sex Assigned at Date Recorded Not on file documented as of this encounter Miscellaneous Notes Telephone Encounter - Esmer Roland MD - 05/06/2011 2:45 PM INDUSTRIAL RELATIONS REPRESENTATIVE Will print, unable to give that much ativan, she should not be taking 90 per month, usually only 30,will give 60 tabs to last longer STRIAL RELATIONS REPRESENTATIVE Telephone Encounter - Mayela Reese - 05/06/2011 2:26 PM CST Pt requesting refills with a 90 day supply as she will be losing her insurance soon. Thank you, Mayela Reese RN STRIAL RELATIONS REPRESENTATIVE documented in this encounter Plan of Treatment Not on filedocumented as of this encounter Visit Diagnoses Diagnosis ANXIETY STATE NOS Anxiety state, unspecified Insomnia Insomnia, unspecified documented in this encounter Care Teams Eligibility Supervisor Relationship Specialty Start Date End Date Esmer Roland MD PCP - General Family Practice 09/21/10 01/29/17 documented as of this encounter
--- OUTSIDE RECORDS SUMMARY | 2022-04-30 09:35 | XMS_ITS | Encounter Summary ---
:1975 Author Organization [place] Address [address] [place] [address] Care Team Providers Name Role Phone Esmer Roland MD Primary Care Provider [phone] Reason for Visit Reason Comments URI swollen glands Encounter Details Date Type Department Care Team Description 02/14/2011 Office Visit [facility] Esmer Roland PHARYNG ITIS (Primary Dx); Clinic Sraa Byrd MD Major depress dis, severe [place] [address] [employer], [address] [place] [address] [place], [place] [phone] (Wo rk) [address] [phone] Social History Tobacco Use Types Packs/Day Years [...] Component Value Ref Test Analysis [facility]formed At [facility] Range Method Time Signature Specimen Throat [facility] Culture Micro No Beta [place] Streptococcus [facility] isolated LAB Micro Report FINAL 02/16/2011 [place] Status [facility] LAB Specimen Anatomical Collection Method Collection Time Receive d Time (Source) Location / / Volume Laterality Specimen from 02/14/2011 12:26 02/14/2011 throat PM CDT 12:28 PM CDT (specimen) Esmer Roland MD LAB - MICRO GENERAL ORDERABL ES Performing Organization Address City/State/ZIP Code Phon e Number [address] [address] [facility] Rapid strep screen (02/14/2011 12:26 PM CDT) Component Value Ref Test Analysis Performed At [facility] Range Method Time Signature Specimen Throat [place] Description [facility] Rapid Strep A NEGATIVE: No Group A strepto coccal antigen detected by immunoassay, await [place] Screen culture report. [facility] Micro Report FINAL 02/14/2011 [place] Status [facility] Specimen Anatomical Collection Method Collection Time Receive d Time (Source) Location / / Volume Laterality Specimen from 02/14/2011 12:26 02/14/2011 throat PM CDT 12:28 PM CDT (specimen) Esmer Roland MD LAB - MICRO GENERAL ORDERABL ES Performing Organization Address City/State/ZIP Code Phon e Number [facility] [address] [facility] documented in this encounter Visit Diagnoses Diagnosis Pharyngitis - Primary Acute pharyngitis Major depressive disorder, single episod e, severe, without mention of psychotic behavior documented in this encounter Care Teams Digital Hardware Design Engineer Relationship Specialty Start Date End Date Esmer Roland MD PCP - General Family Practice 09/21/10 01/29/17 documented as of this encounter
--- OUTSIDE RECORDS SUMMARY | 2022-04-30 09:35 | XMS_ITS | Encounter Summary ---
:1975 Author Organization [place] Address [address] [place] [address] Care Team Providers Name Role Phone Esmer Roland MD Primary Care Provider Encounter Details Date Type Department Care Team Description 12/30/2010 [facility] MELINA ROMERO [address] [place] [address] [...] on filedocumented in this encounter Care Teams Shade Cutter Relationship Specialty Start Date End Date Esmer Roland MD PCP - General Family Practice 09/21/10 01/29/17 documented as of this encounter
--- OUTSIDE RECORDS SUMMARY | 2022-04-30 09:35 | XMS_ITS | Encounter Summary ---
:1975 Author Organization [place] Address [address] [place] [address]. [place] [address] Care Team Providers Name Role Phone Esmer Roland MD Primary Care Provider [phone] Reason for Visit Reason Onset Date Comments Hives 03/13/2011 Encounter Details Date Type Department Care Team Description 03/13/2011 Telephone [facility] [place] [address] [facility], [address] [place] [address] [address] [place] [address] [place] [address] [phone] Social History Tobacco Use Types Packs/Day Years [...] unspecified documented in this encounter Care Teams Automobile Drivers Relationship Specialty Start Date End Date Esmer Roland MD PCP - General Family Practice 09/21/10 01/29/17 documented as of this encounter
--- OUTSIDE RECORDS SUMMARY | 2022-04-30 09:35 | XMS_ITS | Encounter Summary ---
:1975 Author Organization [place] Address [facility] [place] [address] Care Team Providers Name Role Phone Esmer Roland MD Primary Care Provider [phone] Reason for Visit Reason Onset Date Comments Injury 12/13/2010 pinky toe rt foot Encounter Details Date Type Department Care Team Description 12/13/2010 Telephone [facility] Esmer Roland Injury (pinky toe rt Clinic Sara Byrd MD foot) [address] [facility], [address] [place] [address] [address] [place] [address] [place], [place] [phone] (Wo rk) [address] [phone] Social History Tobacco Use Types Packs/Day Years [...] foot documented in this encounter Care Teams Property Management Accountant Relationship Specialty Start Date End Date Esmer Roland MD PCP - General Family Practice 09/21/10 01/29/17 documented as of this encounter
--- OUTSIDE RECORDS SUMMARY | 2022-04-30 09:35 | XMS_ITS | Encounter Summary ---
:1975 Author Organization [place] Address [address] [place] [address] Care Team Providers Name Role Phone Esmer Roland MD Primary Care Provider [phone] Reason for Visit Reason Onset Date Comments Contraception 04/19/2011 Depo injection Encounter Details Date Type Department Care Team Description 04/19/2011 Telephone [facility] Esmer Roland Contrac eption (Depo Clinic Sara Byrd MD injection) [place] [address] [facility], [address] [place] [address] [place], [place] [phone] (Wo rk) [address] [phone] Social History Tobacco Use Types Packs/Day Years [...] AM CST Pt notified. Mayela Reese RN L APPLIANCE ASSEMBLY SUPERVISOR Telephone Encounter - Esmer Roland - 04/19/2011 10:04 AM CST Ordered, please notify pt L APPLIANCE ASSEMBLY SUPERVISOR Telephone Encounter - HughMayela - 04/19/2011 9:58 [...] Please order and advise. Mayela Reese RN L APPLIANCE ASSEMBLY SUPERVISOR documented in this encounter Plan of Treatment Not on filedocumented as of this encounter Visit Diagnoses Diagnosis Contraception - Primary Unspecified contraceptive management documented in this encounter Care Teams Gear Repairer Relationship Specialty Start Date End Date Esmer Roland MD PCP - General Family Practice 09/21/10 01/29/17 documented as of this encounter
--- OUTSIDE RECORDS SUMMARY | 2022-04-30 09:35 | XMS_ITS | Encounter Summary ---
:1975 Author Organization [place] Address [address] [place] [address]. [place] [address] Care Team Providers Name Role Phone Esmer Roland MD Primary Care Provider [phone] Reason for Visit Reason Onset Date Comments Refill Request 08/06/2011 Zolpidem Encounter Details Date Type Department Care Team Description 08/06/2011 Refill [facility] Esmer Roland Refill Request Clinic Sara Byrd MD (Zolpidem) [address] [facility], [address] [place] [address] [address] [place] [address] [place], [place] [phone] (Wo rk) [address] [phone] Social History Tobacco Use Types Packs/Day Years [...] RN, BSN Message handled by Nurse Triage. LE COOK Telephone Encounter - Kristine Alston - 08/06/2011 12:27 PM CST Last Fill Date: 05/06/11 Last Fill Quantity: 90 Last Office Visit: 01/21/11 Kristine Alston, Pharmacy Float Publication Director [facility] Des Carreon [email or web address] documented in this encounter Plan of Treatment Not on filedocumented as of this encounter Visit Diagnoses Diagnosis Insomnia Insomnia, unspecified documented in this encounter Care Teams Information Receptionist Relationship Specialty Start Date End Date Esmer Roland MD PCP - General Family Practice 09/21/10 01/29/17 documented as of this encounter
--- OUTSIDE RECORDS SUMMARY | 2022-04-30 09:35 | XMS_ITS | Encounter Summary ---
:1975 Author Organization [place] Address [address] [place] [address] Care Team Providers Name Role Phone Fawad Roland MD Primary Care Provider Reason for Visit Reason Comments Dysuria Encounter Details Date Type Department Care Team Description 03/12/2011 Allied Health/Nurse [facility] Clinic Dysuria Visit [address], [address] [place] [address] Social History Tobacco Use Types Packs/Day [...] Ref Test Analysis Performed At [facility] Range Method Time Signature Specimen Vagina [facility] Description [facility] Wet Prep Clue cells seen [place] No yeast seen [place] No Trichomonas seen [facility] Micro Report FINAL [place] Status 03/12/2011 [facility] Specimen Anatomical Collection Method Collection Time Receive d Time (Source) Location / / Volume Laterality 03/12/2011 1:25 PM 1 1:26 CDT PM CDT Fawad Roland MD LAB - MICRO GENERAL ORDERABL ES Performing Organization Address [facility] Phon e Number [address] [address] [facility] (ABNORMAL) Microscopic exam urine (03/12/2011 11:08 AM CDT) [facility] Method Time Signature WBC Urine 10-25 (A) 0 - 2 [facility] /HPF [facility] RBC Urine 2-5 (A) 0 - 2 [facility] /HPF [facility] Squamous Few [facility] /LP[facility] Epithelial [facility] /LPF Urine CLINIC LAB Bacteria Urine Moderate (A) NEG /HPF [facility] Mucous Urine Present (A) NEG /LPF [facility] Specimen Anatomical Collection Method Collection Time Receive d Time (Source) Location / / Volume Laterality 03/12/2011 11:08 03/12/2011 AM CDT 11:09 AM CDT Fawad Roland MD LAB - URINE ORDERABLES Performing Organization Address [facility] Phon e Number [address] [address] [facility] Urine culture (03/12/2011 11:08 AM CDT) [facility] Method Time Signature Specimen Midstream [place] Description Urine [facility] Culture Micro No growth [facility] Micro Report FINAL [place] Status 03/14/2011 [facility] Specimen Anatomical Collection Method Collection Time Receive d Time (Source) Location / / Volume Laterality 03/12/2011 11:08 03/12/2011 AM CDT 11:10 AM CDT Fawad Roland MD LAB - MICRO GENERAL ORDERABL ES Performing Organization Address City/State/ZIP Code Phon e Number [facility] [address] [place] [address] [phone] H[facility] (ABNORMAL) UA macroscopic with reflex to micro (03/12/2011 11:08 AM CDT) [facility] Method Time Signature Color Urine Yellow [facility] Appearance Urine Slightly [place] Cloudy [facility] Glucose Urine Negative NEG mg/dL [facility] Bilirubin Urine Negative NEG [facility] Ketones Urine Trace (A) NEG mg/dL [facility] Specific [place] 1.020 1.003 - [place] Urine 1.035 [facility] Blood Urine Small (A) NEG [facility] pH Urine 6.0 5.0 - 7.0 [place] pH [facility] Protein Albumin Trace (A) NEG mg/dL [facility] Urobilinogen 1.0 0.2 - 1.0 [place] Urine EU/dL [facility] Nitrite Urine Negative NEG [facility] Leukocyte Moderate (A) NEG [place] Esterase Urine [facility] Source Midstream [place] Urine [facility] Specimen Anatomical Collection Method Collection Time Receive d Time (Source) Location / / Volume Laterality Urine specimen 03/12/2011 11:08 1 (specimen) AM CDT 11:09 AM CDT Fawad Roland MD LAB - URINE ORDERABLES Performing Organization Address City/State/ZIP Code Phon e Number [facility] [id number] [place] [phone] [facility] documented in this encounter Visit Diagnoses Diagnosis Vaginitis - Primary Vaginitis and vulvovaginitis, unspecifie d Dysuria UTI (urinary tract infection) Urinary tract infection, site not specif ied documented in this encounter Care Teams Calender Wind Up Helper Relationship Specialty Start Date End Date Fawad Roland MD PCP - General Family Practice 09/21/10 01/29/17 documented as of this encounter
--- OUTSIDE RECORDS SUMMARY | 2022-04-30 09:35 | XMS_ITS | Encounter Summary ---
:1975 Author Organization [place] Address [address] [place] [address] Care Team Providers Name Role Phone Esmer Roland MD Primary Care Provider [phone] Reason for Visit Reason Onset Date Comments Social Work Services 12/31/2010 Care Coordintion Encounter Details Date Type Department Care Team Description 12/31/2010 Telephone [facility] Martin Hauser ocial Work Services Clinic [place] Shane Garcia MD (Care Coordintion) [address] [place] [address] [address] [phone] [place], [place] [address] (Wo rk) Social History [...] month She has counselor Martin Hauser MD [facility] Telephone Encounter - Kourtney Haynes - 12/31/2010 5:11 PM CDT Care Coordination Initial Pathology Secretary/Transcriptionist Assessment PCP: BHUMI HAUSER Referral Source: Patient identified from ED DC Census from [facility]. Utilization: Patient seen in ED on 12/30/2010. Notes from ED visit not available in EMR. Patient seen in [facility] today (12/31/2010) by PCP. No future PCP visits scheduled. Patient is to follow up with counselor in next 2 weeks. Patient last ED visit on 07/01/2010 at [facility] & admitted for depression. Only 1 ED in 2009. Disease State: Anxiety, depression (patient denies this & last PHQ ( done in 02/2009 with score of 19) Medications: patient started on ativan at ED Psychosocial: Patient is process of divorce & has 2 children ages (8 & 6). Plan: 1) No call out today as patient seen today by PCP. 2) Pathology Secretary/Transcriptionist to call out to patient on next business day. SONI KahnW, [facility] documented in this encounter Plan of Treatment Not on filedocumented as of this encounter Visit Diagnoses Not on filedocumented in this encounter Care Teams Textile Colorist Formulator Relationship Specialty Start Date End Date Esmer Roland MD PCP - General Family Practice 09/21/10 01/29/17 documented as of this encounter
--- OUTSIDE RECORDS SUMMARY | 2022-04-30 09:35 | XMS_ITS | Encounter Summary ---
:1975 Author Organization [place] Address [address] [place] [address] Care Team Providers Name Role Phone Esmer Roland MD Primary Care Provider Reason for Visit Reason Comments Refill Request Encounter Details Date Type Department Care Team Description 01/21/2011 Office Visit [facility] Esmer Roland ANXIETY STATE NOS (Primary Dx); Clinic Sara Byrd MD Palpitations; [place] [address] [facility], [address] [place] [address] [place], [place] [phone] (Wo rk) [address] [phone] Social History Tobacco Use Types Packs/Day Years [...] documented in this encounter Care Teams Manager Equipment Relationship Specialty Start Date End Date Esmer Roland MD PCP - General Family Practice 09/21/10 01/29/17 documented as of this encounter
--- OUTSIDE RECORDS SUMMARY | 2022-04-30 09:35 | XMS_ITS | Encounter Summary ---
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 Encounter Details Date Type Department Care Team Description 11/09/2010 Office Visit [facility] Cayetano Jung, Routine gynecological examination (Primary Dx); [facility] Abnormal uterine bleeding; [address] NOS [address] Jose Chacon PRISCILLAMICHELE [address] [facility] 100 [address] [place] [address] [phone] Social History Tobacco Use Types Packs/Day Years [...] Body Mass Index 26.34 08/14/2010 8:58 AM ROLL SCALE MAN documented in this encounter Progress Notes Cayetano Jung MD - 11/09/2010 5:01 PM CDT Dariana Valdez is a 35 year old white female P2002, Halima for menorrhagia and for contraception who presents for an annual exam and pap. 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 Initial BP 120/60 Wt 168 lb [...] UA with microscopic (11/09/2010 4:41 PM CDT) [facility] gist Method Time Signature Color Urine Yellow [facility] Appearance Urine Clear [facility] Glucose Urine Negative NEG mg/dL [facility] Bilirubin Urine Negative NEG [facility] Ketones Urine 15 (A) NEG mg/dL [facility] Specific [place] >1.030 1.003 - [place] Urine 1.035 [facility] pH Urine 5.5 5.0 - 7.0 [place] pH [facility] Protein Albumin Negative NEG mg/dL [facility] Urobilinogen 1.0 0.2 - 1.0 [place] Urine EU/dL [facility] Nitrite Urine Negative NEG [facility] Blood Urine Negative NEG [facility] Leukocyte Negative NEG [place] Esterase Urine [facility] Source Midstream [facility] WBC Urine O - 2 0 - 2 [place] /HPF [facility] RBC Urine O - 2 0 - 2 [place] /HPF [facility] Squamous Few FEW /LPF [place] Epithelial /LPF [facility] Urine CLINIC LAB Bacteria Urine [...] Organization Address City/State/ZIP Code Phon e Number [facility] [address] [place], [place] [address] [address] [facility] PAP imaged thin layer screen (11/09/2010 4:41 PM CDT) Component Value Ref Test Analysis Performed At [facility] Range Method Time Signature PAP NIL COPATH Copath Report COPATH Patient Name: DARIANA VALDEZ MR#: [id number] Specimen #: [id number] Collected: 11/09/2010 Received: 11/13/2010 Reported: 11/14/2010 13:19 [...] HERMES Galo (ASCP) Processed and screened at [facility] CLINICAL HISTORY: LMP: 10/21/2010 Previous normal pap Date of Last Pap: 11/07/2008, Papanicolaou Test Limitations: ??Cervical cytology is a scre ening test with limited sensitivity; regular screening is critical for cancer prevention; Pap tests are primarily effective for the diagnosis/prevention of squamous cell carcinoma, not adenoca rcinomas or other cancers. TESTING LAB LOCATION: [address] ??[id number] COLLECTION SITE: Client: ??[facility] [place] Specimen (Source) Anatomical Collection Method Collection Time Re ceived Time Location / / Volume Laterality Cytologic 11/09/2010 4:41 11/13/2010 material PM CDT 11:03 AM CDT (specimen) Cayetano Jung MD LAB - OPTIME CLINICAL SPECIM EN Performing Organization Address City/State/ZIP Code Phon e Number [place] URINE CULTURE (11/09/2010 4:40 PM CDT) [facility] Method Time Signature Specimen Midstream [facility] Description Urine [facility] Culture Micro 10 to 50,000 colonies/mL Mul tiple species present, probable perineal [facility] contamination. [facility] Micro Report FINAL [facility] Status 11/12/2010 [facility] Specimen Anatomical Collection Method Collection Time Receive d Time (Source) Location / / Volume Laterality 11/09/2010 4:40 PM 1 4:45 CDT PM CDT Cayetano Jung MD LAB - MICRO GENERAL ORDERABL ES Performing Organization Address City/State/ZIP Code Phon e Number [facility] [address] [place] [address] [facility] documented in this encounter Visit Diagnoses Diagnosis Routine gynecological examination - Prim harpal Abnormal uterine bleeding Unspecified disorder of menstruation and other abnormal bleeding from female genital tract ANXIETY STATE NOS Anxiety state, unspecified documented in this encounter Care Teams Heating And Cooling Technician Relationship Specialty Start Date End Date Esmer Roland MD PCP - General Family Practice 09/21/10 01/29/17 documented as of this encounter
--- OUTSIDE RECORDS SUMMARY | 2022-04-30 09:35 | XMS_ITS | Encounter Summary ---
:1975 Author Organization [place] Address [address] [place] [address] Care Team Providers Name Role Phone Esmer Roland MD Primary Care Provider Encounter Details Date Type Department Care Team Description 12/30/2010 Emergency room [facility] Results EMERGENCY PHYSI MELINA ROMERO [address] [place], [place] [address] Social History Tobacco Use Types Packs/Day Years Used Date Smoking Tobacco: Former Smokeless Tobacco: Never Comments: Quit September last year. Alcohol Use Standard Drinks/Week Comments Yes 0 (1 standard drink = 0.6 oz pure alcoho l) 1 qo week Sex Assigned at Date Recorded Not on file documented as of this encounter Progress Notes Interface, Employee Benefits Manager - 01/01/2011 8:56 PM CDT FINAL Chief [...] information - -: ECG: Rate 92 bpm. AR interval 112. QRS duration 82. QT/QTc 332/410. [...] JOSE MERCADO [place]: Name: DARIANA VALDEZ Account: [id number] : 1975 Visit Date: 12/30/2010 Document: [id number] documented in this encounter Plan of Treatment Not on filedocumented as of this encounter Visit Diagnoses Not on filedocumented in this encounter Care Teams Rotary Screen Printing Machine Operator Relationship Specialty Start Date End Date Esmer Roland MD PCP - General Family Practice 09/21/10 01/29/17 documented as of this encounter
--- OUTSIDE RECORDS SUMMARY | 2022-04-30 09:35 | XMS_ITS | Encounter Summary ---
:1975 Author Organization [place] Address [address] [place] [address] Care Team Providers Name Role Phone Esmer Roland MD Primary Care Provider [phone] Encounter Details Date Type Department Care [...] RESULTS Atrial Rate [address] Interval 112 ms RADIOLOGY RESULTS QRS Duration 82 ms RADIOLOGY RESULTS QT 332 ms RADIOLOGY RESULTS QTc 410 ms RADIOLOGY RESULTS P [place] 42 degrees RADIOLOGY RESULTS R AXIS 69 degrees RADIOLOGY RESULTS T [place] -36 degrees RADIOLOGY RESULTS Interpretation AGE AND [...] on filedocumented in this encounter Care Teams Waiter Waitress Relationship Specialty Start Date End Date Esmer Roland MD PCP - General Family Practice 09/21/10 01/29/17 documented as of this encounter
--- OUTSIDE RECORDS SUMMARY | 2022-04-30 09:35 | XMS_ITS | Encounter Summary ---
:1975 Author Organization [place] Address [address] [place] [address]. [place] [address] Care Team Providers Name Role Phone Esmer Roland MD Primary Care Provider [phone] Reason for Visit Reason Comments ER F/U Was in the ER last night for chest discomfort/congestion/aplpatations. Feels bruised. SOB. ?? Anxiety rel ated. Was given Ativan in the ER and had relief. Encounter Details Date Type Department Care Team Description 12/31/2010 Office Visit [facility] Martin Hauser NXIETY STATE NOS; Clinic [place] Shane Garcia MD Palpitations; [address] [facility] ARIJA AESTHETIC Chest pain [place], [place] [address] [address] [phone] [place], [place] [address] (Wo rk) Social History [...] symptomatic and supportive care. Martin Hauser MD [facility] documented in this encounter Nursing Notes [...] covers vaccines) Mychart Offered: Yes Jeimy Bowman MASTER CONTROL TECHNICIAN documented in this encounter Plan of Treatment Not on filedocumented as of this encounter Visit Diagnoses Diagnosis ANXIETY STATE NOS Anxiety state, unspecified Palpitations Chest pain Chest pain, unspecified documented in this encounter Care Teams Engineer Third Assistant Relationship Specialty Start Date End Date Esmer Roland MD PCP - General Family Practice 09/21/10 01/29/17 documented as of this encounter
--- OUTSIDE RECORDS SUMMARY | 2022-04-30 09:35 | XMS_ITS | Encounter Summary ---
:1975 Author Organization [place] Address [facility] [place] [address] Care Team Providers Name Role Phone Esmer Roland MD Primary Care Provider [phone] Reason for Visit Reason Onset Date Comments Forms 04/18/2011 FMLA recert Encounter Details Date Type Department Care Team Description 04/18/2011 Telephone [facility] sEmer Roland Forms ( FMLA recert) Clinic [place] Byrd [place] [address] [place] [address], [address] [place] [address] [address] [place] [address] [place], [place] [phone] (Wo rk) [address] [phone] Social History Tobacco Use Types Packs/Day Years [...] hope the time is not needed! Dariana TRICIAN STATION ASSISTANT documented in this encounter Plan of Treatment Not on filedocumented as of this encounter Visit Diagnoses Not on filedocumented in this encounter Care Teams Group Contract Analyst Relationship Specialty Start Date End Date Esmer Roland MD PCP - General Family Practice 09/21/10 01/29/17 documented as of this encounter
--- OUTSIDE RECORDS SUMMARY | 2022-04-30 09:35 | XMS_ITS | Encounter Summary ---
:1975 Author Organization [place] Address [address] [facility] [place] [address] Care Team Providers Name Role Phone Esmer Roland MD Primary Care Provider Reason for Visit Reason Onset Date Comments Refill Request 04/11/2011 lorazepam Encounter Details Date Type Department Care Team Description 04/11/2011 Refill [facility] Esmer Roland Refill Request Clinic [place] MD [place] (lorazepam) [address] [place] [address] [address] BENAVIDE[address] [id number] [phone] Social History Tobacco Use Types Packs/Day Years [...] Office Visit: 02/14/11 Kristine Alston, Pharmacy Float Crane Service Technician [facility] documented in this encounter Plan of Treatment Not on filedocumented as of this encounter Visit Diagnoses Diagnosis ANXIETY STATE NOS Anxiety state, unspecified documented in this encounter Care Teams Electrophysiology Nurse Practitioner Relationship Specialty Start Date End Date Esmer Roland MD PCP - General Family Practice 09/21/10 01/29/17 documented as of this encounter
--- OUTSIDE RECORDS SUMMARY | 2022-04-30 09:35 | XMS_ITS | Encounter Summary ---
:1975 Author Organization [place] Address [address] [place] [address]. [place] [address] Care Team Providers Name Role Phone Esmer Roland MD Primary Care Provider [phone] Reason for Visit Reason Onset Date Comments Refill Request 02/16/2011 LORAZEPAM 1MG Encounter Details Date Type Department Care Team Description 02/16/2011 Refill [facility] Esmer Roland Refill Request Clinic Sara Byrd MD (LORAZEPAM 1MG) [address] [place] [address] [address] [place] [address] [place], [place] [phone] (Wo rk) [address] [phone] Social History Tobacco Use Types Packs/Day Years [...] unspecified documented in this encounter Care Teams Real Estate Financial Analyst Relationship Specialty Start Date End Date Esmer Roland MD PCP - General Family Practice 09/21/10 01/29/17 documented as of this encounter
--- OUTSIDE RECORDS SUMMARY | 2022-04-30 09:35 | XMS_ITS | Encounter Summary ---
:1975 Author Organization [place] Address [address] [place] [address] Care Team Providers Name Role Phone Esmer Roland MD Primary Care Provider [phone] Reason for Visit Reason Comments STD Encounter Details Date Type Department Care Team Description 10/12/2010 Office Visit [facility] Esmer Roland is (Primary Clinic Sara Byrd MD Dx) [address] [address] [facility], [address] [place] [address] [place], [place] [phone] (Wo rk) [address] [phone] Social History Tobacco Use Types Packs/Day Years [...] Body Mass Index 25.89 08/14/2010 8:58 AM MATHEMATICIAN documented in this encounter Progress Notes Esmer [...] Value Ref Test Analysis Performed At [facility] Method Time Signature Specimen [facility] LAB Chlamydia Negative for C. trachomatis rRNA by cad engineer mediated amplification. [facility] Trachomatis A negative result by transc ription mediated amplification does not preclude the [place] PCR presence of C. trachomatis infection because results are dependent on proper CAMPUS LABS and adequate collection, absence of inhibitors, and suffici ent rRNA to be detected. Specimen Anatomical Collection Method Collection Time Receive d Time (Source) Location / / Volume Laterality 10/12/2010 8:48 AM 1 8:50 CDT AM CDT Esmer Roland MD LAB - MICRO ORDERABL ES Performing Organization Address City/[facility]/ZIP Code Phon e Number [address] LAB [facility] Neisseria gonorrhoeae PCR (10/12/2010 8:48 AM CDT) Component Value Ref Test Analysis Performed At [facility] Method Time Signature Specimen V[facility] N Gonorrhea Negative for N. gonorrhoeae rRNA by cad engineer mediated amplification. [facility] PCR A negative result by transc ription mediated amplification does not preclude the [place] presence of N. gonorrhoeae infection because re sults are dependent on proper CAMPUS LABS and adequate collection, absence of inhibitors, and suffici ent rRNA to be detected. Specimen Anatomical Collection Method Collection Time Receive d Time (Source) Location / / Volume Laterality 10/12/2010 8:48 AM 1 8:50 CDT AM CDT Esmer Roland MD LAB - MICRO GENERAL ORDERABL ES Performing Organization Address City/[facility]/ZIP Code Phon e Number [address] LAB [facility] Wet prep (10/12/2010 8:48 AM CDT) Component Value Ref Test Analysis Performed At Patholo gist Range Method Time Signature Specimen Vagina [facility] Description [facility] LAB Wet Prep No Trichomonas seen [place] No clue cells seen [place] No yeast seen [facility] LAB Micro Report FINAL CHAMISAL Status 10/12/2010 [facility] LAB Specimen Anatomical Collection Method Collection Time Receive d Time (Source) Location / / Volume Laterality 10/12/2010 8:48 AM 1 8:50 CDT AM CDT Esmer Roland MD LAB - MICRO GENERAL ORDERABL ES Performing Organization Address City/State/ZIP Code Phon e Number [facility] [place] [address] [facility] documented in this encounter Visit Diagnoses Diagnosis Vaginitis - Primary Vaginitis and vulvovaginitis, unspecifie d documented in this encounter Care Teams Checker/Stocker Relationship Specialty Start Date End Date Esmer Roland MD PCP - General Family Practice 09/21/10 01/29/17 documented as of this encounter
--- OUTSIDE RECORDS SUMMARY | 2022-04-30 09:35 | XMS_ITS | Encounter Summary ---
:1975 Author Organization [place] Address [address] [place] [address]. [place] [address] Care Team Providers Name Role Phone Esmer Roland MD Primary Care Provider [phone] Reason for Visit Reason Onset Date Comments Refill Request 12/17/2011 b/c Encounter Details Date Type Department Care Team Description 12/17/[address] [facility] Esmer Roland Refill Request (b/c) RattanOsman Byrd MD [address] [place] [address] SONJA BENAVIDEZ 5 [address]68 [id number] [phone] Social History Tobacco Use Types Packs/Day Years [...] pap was done on 11/09/2010. Kaitlin Hough [facility] Telephone Encounter - Deidre Alas - 12/17/2011 4:53 PM CDT LAST FILL DATE: 09/24/11 QTY: 84 Last office appt:02/14/11 Camilo Hammonds [facility] documented in this encounter Plan of Treatment Not on filedocumented as of this encounter Visit Diagnoses Diagnosis Abnormal uterine bleeding - Primary Unspecified disorder of menstruation and other abnormal bleeding from female genital tract documented in this encounter Care Teams Chief Port Director Relationship Specialty Start Date End Date Esmer Roland MD PCP - General Family Practice 09/21/10 01/29/17 documented as of this encounter
--- OUTSIDE RECORDS SUMMARY | 2022-04-30 09:35 | XMS_ITS | Encounter Summary ---
:1975 Author Organization [place] Address [address] [place] [address] Care Team Providers Name Role Phone Esmer Roland MD Primary Care Provider [phone] Reason for Visit Reason Comments Contraception Depo injection Encounter Details Date Type Department Care Team Description 04/19/2011 [facility] ion (Depo Health/Nurse Visit Clinic [facility]) [facility], [address] [place] [address] Social History Tobacco Use Types [...] Comments Blood Pressure 143/76 04/19/2011 2:38 PM MAT PACKER Pulse 74 04/19/2011 2:38 PM MAT PACKER Temperature - - Respiratory Rate - - Oxygen Saturation - - Inhaled Oxygen Concentration - - Weight 83 kg (183 lb) 04/19/2011 2:38 PM MAT PACKER Height - - Body Mass Index 28.66 [...] administration information Staff Sig: Mayela Reese RN PACKER documented in this encounter Plan of Treatment Not on filedocumented as of this encounter Visit Diagnoses Diagnosis Contraception management Unspecified contraceptive management Menorrhagia Excessive or frequent menstruation documented in this encounter Care Teams Is Technician Relationship Specialty Start Date End Date Esmer Roland MD PCP - General Family Practice 09/21/10 01/29/17 documented as of this encounter
--- OUTSIDE RECORDS SUMMARY | 2022-04-30 09:35 | XMS_ITS | Encounter Summary ---
:1975 Author Organization [place] Address [address] [place] [address] Care Team Providers Name Role Phone Esmer Roland MD Primary Care Provider [phone] Reason for Visit Reason Onset Date Comments Refill Request 11/20/2010 orlando oconnell Encounter Details Date Type Department Care Team Description 11/20/2010 Refill [facility] Harris Jung MD Refill Request (Jamie oconnell [address] [facility] perry) [address] [facility] 100 1 31 160 [place] [phone] Social History Tobacco Use Types Packs/Day Years [...] DATE: 10/03/2010 LAST FILL QTY: 30 FLOAT COMMERCIAL FIELD INSPECTOR TRISTON SANDOVAL [facility] documented in this encounter Plan of Treatment Not on filedocumented as of this encounter Visit Diagnoses Diagnosis Major depressive disorder, single episod e, severe, without mention of psychotic behavior Influenza A Influenza with other respiratory manifes tations Insomnia Insomnia, unspecified documented in this encounter Care Teams Hog Driver Relationship Specialty Start Date End Date Esmer Roland MD PCP - General Family Practice 09/21/10 01/29/17 documented as of this encounter
--- OUTSIDE RECORDS SUMMARY | 2022-04-30 09:35 | XMS_ITS | Encounter Summary ---
:1975 Author Organization [place] Address [address] [place] [address] Care Team Providers Name Role Phone Esmer Roland MD Primary Care Provider Encounter Details Date Type Department Care Team Description 12/30/2010 [facility] [...] Signature Troponin I 0.00 0.00 - 0.10 [facility] ug/[facility] LAB Specimen Anatomical Collection Method Collection Time Receive d Time (Source) Location / / Volume Laterality 12/30/2010 3:28 PM 1 3:55 CDT PM CDT Esmer Roland MD LAB - ENTER/EDIT POCT Performing Organization Address City/[facility] Phon e [facility] [address] [place], [place] [address] [facility] LAB Troponin I (12/30/2010 1:25 PM CDT) [facility] Method Time Signature Troponin I ES <0.012 0.000 - ORIENT Reviewed, acceptable 0.034 [facility] LAB Specimen Anatomical Collection Method Collection Time Receive d Time (Source) Location / / Volume Laterality 12/30/2010 1:25 PM 1 3:11 CDT PM CDT Esmer Roland MD LAB - BLOOD ORDERABLES Performing Organization Address City/[facility] Phon e [facility] [address] [place], [place] [address] [facility] LAB (ABNORMAL) Basic metabolic panel (12/30/2010 1:25 PM CDT) athologist Signature Sodium 140 133 - 144 ORIENT mmol/L [facility] LAB Potassium 4.0 3.4 - 5.3 ORIENT mmol/L [facility] LAB Chloride 107 94 - 109 ORIENT mmol/L [facility] LAB Carbon Dioxide 24 20 - 32 ORIENT mmol/L [facility] LAB Anion Gap 8 6 - 17 ORIENT mmol/L [facility] LAB Glucose 107 (H) 60 - 99 ORIENT mg/dL [facility] LAB Urea Nitrogen 9 5 - 24 ORIENT mg/dL [facility] LAB Creatinine 0.77 0.52 - ORIENT 1.04 mg/dL [facility] LAB GFR Estimate 86 >60 ORIENT mL/min/1.[address] LAB GFR Estimate If >90 >60 ORIENT Black mL/min/1.[address] LAB Calcium 8.4 (L) 8.5 - 10.4 ORIENT mg/dL [facility] LAB Specimen Anatomical Collection Method Collection Time Receive d Time (Source) Location / / Volume Laterality 12/30/2010 1:25 PM 1 3:11 CDT PM CDT Esmer Roland MD LAB - BLOOD ORDERABLES Performing Organization Address City/[facility]/ZIP [place] [address] [address] [place], [place] [address] [facility] LAB INR (12/30/2010 1:25 PM CDT) P athologist Signature INR 0.91 0.86 - 1.14 [facility] LAB Specimen Anatomical Collection Method Collection Time Receive d Time (Source) Location / / Volume Laterality 12/30/2010 1:25 PM 1 2:07 CDT PM CDT Martin Blair MD LAB - BLOOD ORDERABLES Performing Organization Address City/[facility]/ZIP [place] [address] [address] [place], [place] [address] [facility] LAB (ABNORMAL) CBC with platelets differential (12/30/2010 1:25 PM CDT) Patholo gist Method Time Signature WBC 5.1 4.0 - ORIENT 11.0 [facility] 10e9/L [facility] RBC Count 4.29 3.8 - 5.2 ORIENT 10e12/L [facility] LAB Hemoglobin 12.9 11.7 - ORIENT 15.7 g/dL [facility] LAB Hematocrit 38.2 35.0 - ORIENT 47.0 % [facility] LAB MCV 89 78 - 100 ORIENT fl [facility] MCH 30.1 26.5 - [facility] 33.0 pg [facility] MCHC 33.8 31.5 - ORIENT 36.5 g/dL [facility] LAB RDW 12.8 10.0 - [facility] 15.0 % [facility] Platelet Count 230 150 - 450 ORIENT 10e9/L [facility] LAB Diff Method [facility] LAB % Neutrophils 56.7 40 - 75 % [facility] LAB % Lymphocytes 23.9 20 - 48 % [facility] LAB % Monocytes 14.9 (H) 0 - 12 % [facility] LAB % Eosinophils 3.7 0 - 6 % [facility] LAB % Basophils 0.8 0 - 2 % [facility] LAB Absolute 2.9 1.6 - 8.3 ORIENT Neutrophil 10e9/L [facility] LAB Absolute 1.2 0.8 - 5.3 ORIENT Lymphocytes 10e9/L [facility] LAB Absolute 0.8 0.0 - 1.3 ORIENT Monocytes 10e9/L [facility] LAB Absolute 0.2 0.0 - 0.7 ORIENT Eosinophils 10e9/L [facility] LAB Absolute 0.0 0.0 - 0.2 ORIENT Basophils [address] [place] [address] LAB Specimen Anatomical Collection Method Collection Time Receive d Time (Source) Location / / Volume Laterality 12/30/2010 1:25 PM 1 2:07 CDT PM CDT Martin Blair MD LAB - BLOOD ORDERABLES Performing Organization Address City/[facility]/ZIP [facility] Phon e Vicki Rodgers [place] [address] [address] [place], [place] [address] [facility] LAB D dimer quantitative (12/30/2010 1:25 PM CDT) P athologist Signature D Dimer 0.4 0.0 - 0.50 [facility] ug/ml [facility] LAB Specimen Anatomical Collection Method Collection Time Receive d Time (Source) Location / / Volume Laterality 12/30/2010 1:25 PM 1 2:07 CDT PM CDT Martin Blair MD LAB - BLOOD ORDERABLES Performing Organization Address City/[facility]/ZIP [facility] Phon e Number [place] [address] [address] [place], [place] [address] [facility] documented in this encounter Visit Diagnoses Not on filedocumented in this encounter Care Teams Real Estate Investment Analyst Relationship Specialty Start Date End Date Esmer Roland MD PCP - General Family Practice 09/21/10 01/29/17 documented as of this encounter
--- OUTSIDE RECORDS SUMMARY | 2022-04-30 09:36 | XMS_ITS | Encounter Summary ---
:1975 Author Organization [place] Address [address] [place] [address]. [place] [address] Care Team Providers Name Role Phone Melvin Palacios MD Primary Care Provider Encounter Details Date Type Department Care Team Description 07/03/2010 Historic Notes INTERFACED REPORT James Bautista MD [address] [place] [address] (Wo rk) Social History Tobacco [...] of stay with same medications Care: Signatures ALLNE BAUTISTA)[Signed 11:43] Authored: Problem List, Interval History, Review of Systems, Mental Status Exam, Vital Signs/Labs/Imaging/Culture Results, VS, Risk Assessment documented in this encounter Plan of Treatment Not on filedocumented as of this encounter Visit Diagnoses Not on filedocumented in this encounter Care Teams Senior Cyber Intelligence Analyst Relationship Specialty Start Date End Date Melvin Palacios MD PCP - General 06/22/99 09/20/10 [address] [address] documented as of this encounter
--- OUTSIDE RECORDS SUMMARY | 2022-04-30 09:36 | XMS_ITS | Encounter Summary ---
:1975 Author Organization [place] Address [facility] [place] [address] Care Team Providers Name Role Phone Melvin Palacios MD Primary Care Provider Esmer Roland MD Primary Care Provider [phone] Encounter Details Date Type Department Care Team Description 07/01/2010 Historic Results [facility] Pancho Rodriguez Emergency Department MD Laly [address] [facility] [address] [place] [address] [place] [address] (Wo rk) Social History Tobacco [...] 07/01/2010 6:30 PM Results f or this MEMBER OF THE LEGISLATIVE [employer]SEMBL[employer] procedure are i n the results section . documented in this encounter Results EKG 12 LEAD (07/01/2010 6:30 PM [employer]) Component Value Ref Range Test Analysis Performed Pathologis t Method Time At Signature Ventricular Rate 77 BPM RADIOLOGY RESULTS Atrial Rate 77 BPM RADIOLOGY RESULTS SD Interval 112 ms RADIOLOGY RESULTS QRS Duration 88 ms RADIOLOGY RESULTS QT 366 ms RADIOLOGY RESULTS QTc 414 ms RADIOLOGY RESULTS P Pollock 16 degrees RADIOLOGY RESULTS R AXIS 66 degrees RADIOLOGY RESULTS T Pollock 24 degrees RADIOLOGY RESULTS Interpretation Sinus rhythm RADIOLOGY ECG Normal ECG RESULTS Unconfirmed report - interpretation of this ECG is compute r generated - see medical record for final interpretation Specimen Anatomical Collection Method Collection Time Receive d Time (Source) Location / / Volume Laterality 07/01/2010 6:30 PM 1 6:23 [employer] PM [employer] Ángela Rodriguez MD ECG ORDERABLES Performing Organization Address City/State/[facility] Code Phon e Number RADIOLOGY RESULTS documented in this encounter Visit Diagnoses Not on filedocumented in this encounter Care Teams Marketing Performance Analyst Relationship Specialty Start Date End Date Melvin Palacios MD PCP - General 06/22/99 09/20/10 [address] [place] [address] Esmer Roland MD PCP - General Family Practice 09/21/10 01/29/17 documented as of this encounter
--- OUTSIDE RECORDS SUMMARY | 2022-04-30 09:36 | XMS_ITS | Encounter Summary ---
:1975 Author Organization [place] Address [address] [facility] [place] [address] Care Team Providers Name Role Phone Melvin Palacios MD Primary Care Provider Encounter Details Date Type Department Care Team Description 07/05/[address] [facility] Allen Bautista (Gum Dipper) [facility] MD Shay Results [address] [place] [address] (Wo rk) Social History Tobacco Use Types Packs/Day Years Used Date Smoking Tobacco: Every Day Comments: 1-2 every other day Alcohol Use Standard Drinks/Week Comments Yes 0 (1 standard drink = 0.6 oz pure alcoho l) 1 qo week Sex Assigned at Date Recorded Not on file documented as of this encounter Progress Notes Allen Bautista - 07/08/2010 9:58 PM SAMPLE STITCHER FINAL IDENTIFICATION: Juan Carlos Valdez is a [...] MT: [place] Name: JUAN CARLOS VALDEZ Account: [id number] : 1975 Admit Date: Discharge Date: 07/06/2010 Document: [id number] cc: Melvin Palacios MD [facility] Az Hodge MD LE STITCHER documented in this encounter Plan of Treatment Not on filedocumented as of this encounter Visit Diagnoses Not on filedocumented in this encounter Care Teams Crane Mechanic Relationship Specialty Start Date End Date Melvin Palacios MD PCP - General 06/22/99 09/20/10 [address] [address] documented as of this encounter
--- OUTSIDE RECORDS SUMMARY | 2022-04-30 09:36 | XMS_ITS | Encounter Summary ---
:1975 Author Organization [place] Address [address] [place] [address]. [place] [address] Care Team Providers Name Role Phone Melvin Palacios MD Primary Care Provider Encounter Details Date Type Department Care Team Description 07/02/2010 Consultation [facility] Brian Shukla MD [address] MB Results [address] [place] [address] (Wo rk) Social History Tobacco Use Types Packs/Day Years Used Date Smoking Tobacco: Every Day Comments: 1-2 every other day Alcohol Use Standard Drinks/Week Comments Yes 0 (1 standard drink = 0.6 oz pure alcoho l) 1 qo week Sex Assigned at Date Recorded Not on file documented as of this encounter Progress Notes Otoniel Shukla MD - 08/12/2010 4:33 PM SIEBEL ARCHITECT FINAL REQUESTING PHYSICIAN: Allen Rose MD. HISTORY [...] PLAN: 1. Psychiatric intervention as per Dr. Roes. 2. Excedrin p.r.n. headaches. 3. Copy of labs to patient at discharge for primary MD followup. 4. Clinical observation. Thank you for the consultation. Will follow along as indicated. Electronically signed on 08/12/2010 16:33 by OTONIEL SHUKLA MD MT: [place] Name: DARIANA VALDEZ MRN: [id number] Account: [id number] : 1975 Consult Date: 07/02/2010 Document: [id number] cc: Allen Rose MD EL ARCHITECT documented in this encounter Plan of Treatment Not on filedocumented as of this encounter Visit Diagnoses Not on filedocumented in this encounter Care Teams Pipelines Superintendent Relationship Specialty Start Date End Date Melvin Palacios MD PCP - General 06/22/99 09/20/10 [address] [id number] documented as of this encounter
--- OUTSIDE RECORDS SUMMARY | 2022-04-30 09:36 | XMS_ITS | Encounter Summary ---
:1975 Author Organization [place] Address [address] [place] [address] Care Team Providers Name Role Phone Melvin Palacios MD Primary Care Provider Esmer Roland MD Primary Care Provider [phone] Encounter Details Date Type Department Care Team Description 07/01/2010 Historic Die Mounter INTERFACED REPORT Cooper MD [address] [facility] [place] [address] (Wo rk) Social History Tobacco Use Types Packs/Day Years Used Date Smoking Tobacco: Every Day Comments: 1-2 every other day Alcohol Use Standard Drinks/Week Comments Yes 0 (1 standard drink = 0.6 oz pure alcoho l) 1 qo week Sex Assigned at Date Recorded Not on file documented as of this encounter Progress Notes Allen Bautista - 05/13/2011 6:32 PM CREDIT RISK MANAGER FINAL INSURANCE: [place]. IDENTIFICATION: Juan Carlos Valdez is a 34-year-old [...] works at least full-time basis at the [employer] and then a 2nd clinic, [employer], in the evening until 10 p.m.; therefore, [facility] from 8 until 4 p.m. She identifies [...] patient. She reiterates, It was a 3rd libertarian. They were sitting on the floor, playing [...] ever since. 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 He too is a resident in [place] and lives independently. She indicates his girlfriend [...] prescribed by her primary nurse practitioner at [facility]. 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 The [...] compromised because of her unresolved distress. DIAGNOSES: [place] I: 1. Depression, major, recurrent. 2. Panic disorder, part of anxiety. [place] III: Per primary care. [place] IV: Stressors: Moderate. [place] V: Global Assessment of Functioning at 10-20 [...] Name: JUAN CARLOS VALDEZ MRN: [id number] Account: [id number] : 1975 Admitted: [id number] Document: [id number] cc: [facility] Ángela Hammonds RN IT RISK MANAGER documented in this encounter Plan of Treatment Not on filedocumented as of this encounter Visit Diagnoses Not on filedocumented in this encounter Care Teams Valve Assembler Relationship Specialty Start Date End Date Melvin Palacios MD PCP - General 06/22/99 09/20/10 [address] [address] Esmer Roland MD PCP - General Family Practice 09/21/10 01/29/17 documented as of this encounter
--- OUTSIDE RECORDS SUMMARY | 2022-04-30 09:36 | XMS_ITS | Encounter Summary ---
:1975 Author Organization [address] [place] [address] Care Team Providers Name Role Phone Melvin Palacios MD Primary Care Provider Encounter Details Date Type Department Care Team Description 07/01/2010 Historic Results [facility] Ángela Rodriguez Emergency Department MD [place] [address] [address] [place] [address] (Wo rk) Social History Tobacco [...] STAT 07/01/2010 7:20 PM Results for this INTERNATIONAL BROADCAST MUSIC LIBRARIAN procedure are i n the results section. DRUG ABUSE SCREEN 8 Routine 07/01/2010 7:20 PM Re sults for this URINE (UR) INTERNATIONAL BROADCAST MUSIC LIBRARIAN procedure are i n the results section. TSH WITH FREE T4 Routine 07/01/2010 6:40 PM Resul ts for this REFLEX INTERNATIONAL BROADCAST MUSIC LIBRARIAN procedure are i n the results section. HEPATIC FUNCTION PANEL Routine 07/01/2010 6:40 PM Results for this INTERNATIONAL BROADCAST MUSIC LIBRARIAN procedure are i n the results section. GGT Routine 07/01/2010 6:40 PM Results f or this INTERNATIONAL BROADCAST MUSIC LIBRARIAN procedure are i n the results section. ETHYL ALCOHOL LEVEL STAT 07/01/2010 6:40 PM Re sults for this INTERNATIONAL BROADCAST MUSIC LIBRARIAN procedure are i n the results section. ACETAMINOPHEN LEVEL STAT 07/01/2010 6:40 PM Re sults for this INTERNATIONAL BROADCAST MUSIC LIBRARIAN procedure are i n the results section. BASIC METABOLIC PANEL STAT 07/01/2010 6:40 PM Results for this INTERNATIONAL BROADCAST MUSIC LIBRARIAN procedure are i n the results section. CBC WITH PLATELETS Routine 07/01/2010 6:40 PM Res ults for this INTERNATIONAL BROADCAST MUSIC LIBRARIAN procedure are i n the results section. documented in this encounter Results HCG qualitative urine (07/01/2010 7:20 PM INTERNATIONAL BROADCAST MUSIC LIBRARIAN) P athologist Signature HCG Qual Urine Negative NEG [place] Specimen Anatomical Collection Method Collection Time Receive d Time (Source) Location / / Volume Laterality 07/01/2010 7:20 PM 1 6:23 INTERNATIONAL BROADCAST MUSIC LIBRARIAN PM INTERNATIONAL BROADCAST MUSIC LIBRARIAN Ángela Rodriguez MD LAB - URINE ORDERABLES Performing Organization Address City/State/ZIP Code Phon e Number MISYS (ABNORMAL) Drug abuse screen 8 urine (UR) (07/01/2010 7:20 PM INTERNATIONAL BROADCAST MUSIC LIBRARIAN) Patholo gist Method Time Signature Amphetamine Qual [...] Volume Laterality 07/01/2010 7:20 PM 1 9:36 INTERNATIONAL BROADCAST MUSIC LIBRARIAN PM INTERNATIONAL BROADCAST MUSIC LIBRARIAN Ángela Rodriguez MD LAB - URINE ORDERABLES Performing Organization Address [facility] Code Phon e Number MISYS Basic metabolic panel (07/01/2010 6:40 PM INTERNATIONAL BROADCAST MUSIC LIBRARIAN) P athologist Signature Sodium 141 133 - [...] Volume Laterality 07/01/2010 6:40 PM 1 6:23 INTERNATIONAL BROADCAST MUSIC LIBRARIAN PM INTERNATIONAL BROADCAST MUSIC LIBRARIAN Ángela Rodriguez MD LAB - BLOOD ORDERABLES Performing Organization Address [facility] Phon e Number MIS[place] Acetaminophen level (07/01/2010 6:40 PM INTERNATIONAL BROADCAST MUSIC LIBRARIAN) Analysis Performed At Patho logist Time Signature Acetaminophen <10 mg/L [place] Level Specimen Anatomical Collection Method Collection Time Receive d Time (Source) Location / / Volume Laterality 07/01/2010 6:40 PM 1 6:23 INTERNATIONAL BROADCAST MUSIC LIBRARIAN PM INTERNATIONAL BROADCAST MUSIC LIBRARIAN Ángela Rodriguez MD LAB - BLOOD ORDERABLES Performing Organization Address [facility] Code Phon e Number MIS[place] Alcohol ethyl (07/01/2010 6:40 PM INTERNATIONAL BROADCAST MUSIC LIBRARIAN) P athologist Signature Ethanol g/dL <0.01 0.01 g/dL [place]IS[facility] Specimen Anatomical Collection Method Collection Time Receive d Time (Source) Location / / Volume Laterality 07/01/2010 6:40 PM 1 6:23 INTERNATIONAL BROADCAST MUSIC LIBRARIAN PM INTERNATIONAL BROADCAST MUSIC LIBRARIAN Ángela Rodriguez MD LAB - BLOOD ORDERABLES Performing Organization Address City/State/ZIP Code Phon e Number [place]IS[place] (ABNORMAL) Hepatic panel (07/01/2010 6:40 PM INTERNATIONAL BROADCAST MUSIC LIBRARIAN) Patholo gist Method Time Signature AST 22 [...] / Volume Laterality 07/01/2010 6:40 PM 1 INTERNATIONAL BROADCAST MUSIC LIBRARIAN 11:58 PM INTERNATIONAL BROADCAST MUSIC LIBRARIAN Ángela Rodriguez MD LAB - BLOOD ORDERABLES Performing Organization Address [facility]/ZIP Code Phon e Number MISYS CBC with platelets (07/01/2010 6:40 PM INTERNATIONAL BROADCAST MUSIC LIBRARIAN) P athologist Signature MCV 90 78 - [...] / Volume Laterality 07/01/2010 6:40 PM 1 INTERNATIONAL BROADCAST MUSIC LIBRARIAN 11:58 PM INTERNATIONAL BROADCAST MUSIC LIBRARIAN Ángela Rodriguez MD LAB - BLOOD ORDERABLES Performing Organization Address City/State/ZIP Code Phon e Number [place] GGT (07/01/2010 6:40 PM INTERNATIONAL BROADCAST MUSIC LIBRARIAN) P athologist Signature GGT 16 0 - 40 U/L [place] Specimen Anatomical Collection Method Collection Time Receive d Time (Source) Location / / Volume Laterality 07/01/2010 6:40 PM 1 INTERNATIONAL BROADCAST MUSIC LIBRARIAN 11:58 PM INTERNATIONAL BROADCAST MUSIC LIBRARIAN Ángela Rodriguez MD LAB - BLOOD ORDERABLES Performing Organization Address City/[facility] Phon e Number MISYS TSH with free T4 reflex (07/01/2010 6:40 PM INTERNATIONAL BROADCAST MUSIC LIBRARIAN) P athologist Signature TSH 1.64 0.4 - 5.0 MIS[place] mU/L Specimen Anatomical Collection Method Collection Time Receive d Time (Source) Location / / Volume Laterality 07/01/2010 6:40 PM 1 INTERNATIONAL BROADCAST MUSIC LIBRARIAN 11:58 PM INTERNATIONAL BROADCAST MUSIC LIBRARIAN Ángela Rodriguez MD LAB - BLOOD ORDERABLES Performing Organization Address [facility] Phon e Number MISYS documented in this encounter Visit Diagnoses Not on filedocumented in this encounter Care Teams Mobile Lab Technician Relationship Specialty Start Date End Date Melvin Palacios MD PCP - General 06/22/99 09/20/10 [address] [id number] documented as of this encounter
--- OUTSIDE RECORDS SUMMARY | 2022-04-30 09:36 | XMS_ITS | Encounter Summary ---
:1975 Author Organization [place] Address [address] [place] [address]. [place] [address] Care Team Providers Name Role Phone Melvin Palacios MD Primary Care Provider Encounter Details Date Type Department Care Team Description 07/01/2010 [facility] Results [address] [place] [address] (Wo rk) Social History Tobacco Use Types Packs/Day Years Used Date Smoking Tobacco: Every Day Comments: 1-2 every other day Alcohol Use Standard Drinks/Week Comments Yes 0 (1 standard drink = 0.6 oz pure alcoho l) 1 qo week Sex Assigned at Date Recorded Not on file documented as of this encounter Progress Notes Ángela Rodriguez - 07/26/2010 11:56 PM ENROUTE CONTROLLER FINAL ADDENDUM TO T-NOTE CHIEF COMPLAINT: Depression [...] Liliya Hammonds, who is an RN at [facility] and [employer]. Review of systems otherwise negative. 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 PHYSICAL EXAMINATION: VITAL SIGNS: [...] MD MT: TOSHA Name: DARIANA VALDEZ Account: [id number] : 1975 Visit Date: 07/01/2010 Document: [id number] cc: [facility] UTE CONTROLLER documented in this encounter Plan of Treatment Not on filedocumented as of this encounter Visit Diagnoses Not on filedocumented in this encounter Care Teams Hand Tile Maker Relationship Specialty Start Date End Date Melvin Palacios MD PCP - General 06/22/99 09/20/10 [address] [id number] documented as of this encounter
--- OUTSIDE RECORDS SUMMARY | 2022-04-30 09:36 | XMS_ITS | Encounter Summary ---
:1975 Author Organization [place] Address [address] [place] [address] Care Team Providers Name Role Phone Melvin Palacios MD Primary Care Provider Encounter Details Date Type Department Care Team Description 02/26/2010 [facility] Vit jeffries D Deficiency [place] [facility], [address] [place] [address] Social History Tobacco Use [...] Signature 25 [place] Vit D2 47 ug/L [facility] 25 OH Vit D3 13 ug/L [facility] 25 OH Vit D 60 30 - 75 [facility] total ug/L CAMPUS LABS Comment: Season, race, dietary intake, and treatm ent affect the concentration of 89-yvtoqfk-Siuvksl D. Values may decrea se during winter months and increase during summer months. Values less than 30 ug/L may indicate Vitamin D deficiency. Specimen Anatomical Collection Method Collection Time Receive d Time (Source) Location / / Volume Laterality 02/26/2010 4:05 PM 0 4:07 CDT PM CDT Aleksandra Jimenez PA-C LABORATORY Performing Organization Address City/State/ZIP Code Phon e Number [facility] [address] [place] [address] [facility] documented in this encounter Visit Diagnoses Diagnosis Vitamin D deficiency Unspecified vitamin D deficiency documented in this encounter Care Teams Land Mobile Radio Technician Relationship Specialty Start Date End Date Melvin Palacios MD PCP - General 06/22/99 09/20/10 [address] [place] [address] documented as of this encounter
--- OUTSIDE RECORDS SUMMARY | 2022-04-30 09:36 | XMS_ITS | Encounter Summary ---
:1975 Author Organization [place] Address [address] [place] [address]. [place] [address] Care Team Providers Name Role Phone Melvin Palacios MD Primary Care Provider Encounter Details Date Type Department Care Team Description 07/02/2010 Historic Notes INTERFACED REPORT Brian Shukla MD [address] [facility] [address] [place], [place] [address] (Wo rk) Social History Tobacco Use Types [...] on filedocumented in this encounter Care Teams Change Control Manager Relationship Specialty Start Date End Date Melvin Palacios MD PCP - General 06/22/99 09/20/10 [address] [phone] documented as of this encounter
--- OUTSIDE RECORDS SUMMARY | 2022-04-30 09:36 | XMS_ITS | Encounter Summary ---
:1975 Author Organization [place] Address [address] [place] [address] Care Team Providers Name Role Phone Melvin Palacios MD Primary Care Provider Reason for Visit Reason Onset Date Comments Refill Request 02/26/2010 VITAMIN D 50,000 Encounter Details Date Type Department Care Team Description 02/26/2010 Refill [facility] Melvin Palacios MD Refill Request ([facility] [place] [address] [place] D 50,000) [address] [place], [place] SON[place]UEGER [phone] Social History Tobacco Use Types Packs/Day Years [...] MD PCP - General 06/22/99 09/20/10 [address] [place] [address] documented as of this encounter
--- OUTSIDE RECORDS SUMMARY | 2022-04-30 09:36 | XMS_ITS | Encounter Summary ---
:1975 Author Organization [place] Address [address] [facility] [place] [address] Care Team Providers Name Role Phone Melvin [...] as of this encounter Progress Notes Interface, Senior Software Development Manager - 08/23/2010 10:32 PM CDT Clinical Owner Note - :: Met with patient to dicuss her treatment plan and outpatient supports. She spoke with the cast iron dipper of her uatsdin and will now join a divorce care group to help her move on after her divorce. She and the boys will be living with her parents until she feels more stable. She is not suicidal today and seems to be looking forward to the uatsdin divorce group. She found out that a [employer] employee donated some PTO time to her and she will apply for short-term disability. Pt would like to discharge on evening so she will discuss this with Dr. Rose. Pts discharge paperwork is completed. NEEMA Bledsoe (Clinical Owner)[Signed 17:11] Authored: Clinical Owner Note documented in this encounter Plan of Treatment Not on filedocumented as of this encounter Visit Diagnoses Not on filedocumented in this encounter Care Teams Sheet Tailer Relationship Specialty Start Date End Date Melvin Palacios MD PCP - General 06/22/99 09/20/10 [address] [id number] documented as of this encounter
--- OUTSIDE RECORDS SUMMARY | 2022-04-30 09:36 | XMS_ITS | Encounter Summary ---
:1975 Author Organization [place] Address [address] [place] [address] Care Team Providers Name Role Phone Melvin Palacios MD Primary Care Provider Reason for Visit Reason Onset Date Comments Sinus Problem 06/11/2010 Sinus infection Encounter Details Date Type Department Care Team Description 06/11/2010 Telephone [facility] Melvin Palacios MD Sinus Problem ([facility] [place] [address] [place] infection) [address] [address] [phone] Social History Tobacco Use Types Packs/Day Years [...] start the abx, that would be best ELET AND BROOCH MAKER Telephone Encounter - Mayela Reese - 06/11/2010 [...] an antibiotic for her. Mayela Reese RN ELET AND BROOCH MAKER documented in this encounter Plan of Treatment Not on filedocumented as of this encounter Visit Diagnoses Diagnosis Acute maxillary sinusitis - Primary documented in this encounter Care Teams Local Az Truck Driver Relationship Specialty Start Date End Date Melvin Palacios MD PCP - General 06/22/99 09/20/10 [address] [address] documented as of this encounter
--- OUTSIDE RECORDS SUMMARY | 2022-04-30 09:36 | XMS_ITS | Encounter Summary ---
:1975 Author Organization [place] Address [address] [facility] [place] [address] Care Team Providers Name Role Phone Melvin [...] as of this encounter Progress Notes Interface, Missile Pad Mechanic - 08/23/2010 10:44 PM CDT Safety Precautions Initiated (NOTE: MD Order Needed every 24 hours) - Date/Time Safety 21:15 Precautions Initiated: - core machine operator of Need Patient admitted with SI. for Safety Precautions: Signatures Moshe Gonzalez (SHAREE)[Signed 00:40] Authored: Safety Precautions Initiated (NOTE: MD Order Needed every 24 hours) Interface, Missile Pad Mechanic - 08/23/2010 10:43 PM CDT Summary of [...] time. In addition, you spoke with your glory hole tender at [facility] and will start a Divorce Care Group. [...] suicide Psychiatry Follow-Up - Psychiatrist/Primary Liliya Mckeon SPACE PHYSICIST Activity Director: - Psychiatrist Address: [facility] - Psychiatrist Number: - Psychiatrist 11:30 Appointment Date/Time: - Therapist: Thelma - Therapist Address: [facility] - Therapist Number: - Therapist Appointment 02:00 Date/Time: - Other Referrals: Divorce Care Group - Other Referrals [facility] Address: Provider Information - Discharged From: [facility] - Unit: [address] [place] [address] - Unit - Method: ambulatory - Transportation: [...] Avoid alcohol. Resources - Resources Crisis Intervention: 378.619.1311 or 124 383-6151 (TTY: 663.286.1438); call anytime for help. National [place] on Mental Illness (www.[place].serene.org):: 982.726.7456 or 006-504-0206. National Suicide Prevention Line (www.mentalhealthmn.org): 747-738-ENCF [8255] Mental Health Association of [place] (www.mentalhealth.org): 559.362.6000 or 173-421-7604. Signatures EMIGDIO LEE (RN)[Signed 11:57] Authored: Summary of Progress and Discharge Plan, Discharge Teaching Checklist NEEMA MARTE (Clinical Red Cross Worker)[Signed 16:35] Authored: Summary of Progress and Discharge Plan, Psychiatry Follow-Up, Provider Information, Resources Interface, Missile Pad Mechanic - 08/23/2010 10:43 PM CDT Clinical Red Cross Worker Note - :: Pt admitted with suicidal ideation having overdosed on Dilaudid and Klonopin. Very depressed and overwhelmed with divorce of one year and worries about finances. Caring for two sons whom she shares joint custody with ex-. 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 Parents concerned because the depression and hopeless [...] Philip Plaque he gave her and their Arnot Candle from their wedding. Her ex told [...] graduate with one year of college for Software Writer. Parents help financially and also help her care for her children. This is patient's first inpatient admission. She has been encouraged to attend all unit programming and meet with her staff as needed. She sees Liliya DAVIDSON and will schedule therapist at [facility] in [place]. Flowsheets #1 and #4 completed and the Patient Profile has been updated. NEEMA Bledsoe (Clinical Red Cross Worker)[Signed 16:07] Authored: Clinical Red Cross Worker Note Interface, Missile Pad Mechanic - 08/23/2010 10:41 PM CDT General Information [...] on filedocumented in this encounter Care Teams Park Interpreter Relationship Specialty Start Date End Date Melvin Palacios MD PCP - General 06/22/99 09/20/10 [address] [id number] documented as of this encounter
--- OUTSIDE RECORDS SUMMARY | 2022-04-30 09:36 | XMS_ITS | Encounter Summary ---
:1975 Author Organization [place] Address [address] [place] [address] Care Team Providers Name Role Phone Melvin Palacios MD Primary Care Provider Encounter Details Date Type Department Care Team Description 07/05/2010 Historic Notes INTERFACED REPORT James Bautista MD [address] [facility] [address] [place] [address] (Wo rk) Social History Tobacco [...] to medication prepare for discharge coordinate with senior mechanical estimator Review of Systems - Constitutional: Negative - [...] on filedocumented in this encounter Care Teams Church Organist Relationship Specialty Start Date End Date Melvin Palacios MD PCP - General 06/22/99 09/20/10 [address] [id number] documented as of this encounter
--- OUTSIDE RECORDS SUMMARY | 2022-04-30 09:36 | XMS_ITS | Encounter Summary ---
:1975 Author Organization [place] Address [address] [place] [address]. [place] [address] Care Team Providers Name Role Phone Melvin Palacios MD Primary Care Provider Encounter Details Date Type Department Care Team Description 07/04/2010 Historic Notes INTERFACED REPORT James Bautista MD [address] [place] [address] (Wo rk) Social History Tobacco [...] on filedocumented in this encounter Care Teams Mine Environmental Engineer Relationship Specialty Start Date End Date Melvin Palacios MD PCP - General 06/22/99 09/20/10 [address] [id number] documented as of this encounter
--- OUTSIDE RECORDS SUMMARY | 2022-04-30 09:36 | XMS_ITS | Encounter Summary ---
:1975 Author Organization [place] Address [address] [place] [address] Care Team Providers Name Role Phone Melvin Palacios MD Primary Care Provider Esmer Roland MD Primary Care Provider [phone] Encounter Details Date Type Department Care Team Description 09/17/2010 Orders Only [facility] Fat igue; [place] [facility] Family history of thyroid di noellee [facility], [address] [place] [address] Social History Tobacco Use [...] athologist Signature TSH 1.47 0.4 - 5.0 [facility] [place] [facility] LAB Specimen Anatomical Collection Method Collection Time Receive d Time (Source) Location / / Volume Laterality Blood specimen 09/17/2010 2:04 PM 011 2:06 (specimen) CDT PM CDT Esmer Roland MD LAB - BLOOD ORDERABLES Performing Organization Address City/State/ZIP Code Phon e Number [facility] [address] [place] [address] [facility] documented in this encounter Visit Diagnoses Diagnosis Fatigue Other malaise and fatigue Family history of thyroid disease Family history of other endocrine and me tabolic diseases documented in this encounter Care Teams Wound Care Specialist Relationship Specialty Start Date End Date Melvin Palacios MD PCP - General 06/22/99 09/20/10 [address] [place] [address] Esmer Roland MD PCP - General Family Practice 09/21/10 01/29/17 documented as of this encounter
--- OUTSIDE RECORDS SUMMARY | 2022-04-30 09:36 | XMS_ITS | Encounter Summary ---
:1975 Author Organization [place] Address [address] [place] [address]. [place] [address] Care Team Providers Name Role Phone Melvin Palacios MD Primary Care Provider Encounter Details Date Type Department Care Team Description 07/05/2010 Historic Notes INTERFACED REPORT Brian Shukla MD [address] [place] [facility] [address] [place] [address] (Wo rk) Social History Tobacco [...] GFR estimated 73 GFR estimated if 88 -[place]ub[place] Calcium Level* 8.5 AST 22 GGT 16 [...] on filedocumented in this encounter Care Teams Boxing Promoter Relationship Specialty Start Date End Date Melvin Palacios MD PCP - General 06/22/99 09/20/10 [address] [id number] documented as of this encounter
--- OUTSIDE RECORDS SUMMARY | 2022-04-30 09:36 | XMS_ITS | Encounter Summary ---
:1975 Author Organization [place] Address [address] [place] [address] Care Team Providers Name Role Phone Melvin Palacios MD Primary Care Provider Reason for Visit Reason Comments URI Encounter Details Date Type Department Care Team Description 08/14/2010 Office Visit [facility] Esmer Roland A (Primary Dx); Clinic Sara Byrd MD Major depress dis, severe Veteran [address] [facility], [address] [place] [address] [place], [place] [phone] (Wo rk) [address] [phone] Social History Tobacco Use Types Packs/Day Years [...] Comments Blood Pressure 120/62 08/14/2010 8:58 AM SKIVER COUNTER Pulse 94 08/14/2010 8:58 AM SKIVER COUNTER Temperature 37.2 ??C (98.9 ??F) 08/14/2010 8:58 AM SKIVER COUNTER Respiratory Rate 16 08/14/2010 8:58 AM SKIVER COUNTER Oxygen Saturation 99% 08/14/2010 8:58 AM SKIVER COUNTER Inhaled Oxygen Concentration - - Weight 74.8 kg (165 lb) 08/14/2010 8:58 AM SKIVER COUNTER Height 170.2 cm (5' 7) 08/14/2010 8:58 AM SKIVER COUNTER Body Mass Index 25.84 08/14/2010 8:58 AM SKIVER COUNTER documented in this encounter Progress Notes Esmer [...] these occur, they will seek care immediately. ER COUNTER documented in this encounter Plan of Treatment Not on filedocumented as of this encounter Procedures Procedure Name Priority Date/Time Associated Diagnosis Comme nts INFLUENZA A/B Routine 08/14/2010 10:07 AM Major depress dis, R esults for this ANTIGEN SKIVER COUNTER severe procedure are in Influenza A the results section. documented in this encounter Results (ABNORMAL) Influenza A/B antigen (08/14/2010 10:07 AM SKIVER COUNTER) [facility] Method Time Signature Influenza A/B Nasopharyngeal [place] Agn Specimen [facility] Influenza A Positive (A) NEG [facility] Influenza B Negative NEG [facility] Specimen Anatomical Collection Method Collection Time Receive d Time (Source) Location / / Volume Laterality 08/14/2010 10:07 08/14/2010 AM SKIVER COUNTER 10:12 AM SKIVER COUNTER Esmer Roland MD LAB - MICRO GENERAL ORDERABL ES Performing Organization Address City/State/ZIP Code Phon e Number [facility] [place] [address] [facility] documented in this encounter Visit Diagnoses Diagnosis Influenza A - Primary Influenza with other respiratory manifes tations Major depressive disorder, single episod e, severe, without mention of psychotic behavior documented in this encounter Care Teams Bumper Operator Relationship Specialty Start Date End Date Melvin Palacios MD PCP - General 06/22/99 09/20/10 [address] [id number] documented as of this encounter
--- OUTSIDE RECORDS SUMMARY | 2022-04-30 09:36 | XMS_ITS | Encounter Summary ---
:1975 Author Organization [place] Address [address] [place] [address] Care Team Providers Name Role Phone Melvin [...] as of this encounter Progress Notes Interface, Distribution Center Supervisor - 08/23/2010 10:44 PM CDT General Information - How to be Addressed Dariana - Eye Color brown - Hair Color brown - Cultural/Ethnic Background - Source of Information patient; family - Arrived From emergency department - Clothing Search completed, Moshe Coelho RN - Second Staff (name) Ernestine Marina RN - sheet music salesperson #1: Connie Earl - Relationship to Mother patient #1: - Phone 1: H. [phone] - Phone 2: C> [phone] - Patient's spoken language; Iraqi or Bilingual communication style Advance Directive - [...] problems this hospitalization? - Specialty Liliya George WARPING MACHINE OPERATOR at [facility] Physicians/Other Providers - Do you have [place] Based restrictions for any of the following? [...] none Considerations - Developmental none Considerations - Rastafarian none Considerations Risk Assessment - Have you [...] yes (describe), My kids and going to Jainism and your life that is I enjoy [...] the past 30 days? - Has your trash collector truck driver's never revoked license been revoked because [...] Legal History, Mutuality/Individual Preferences NEEMA MARTE (Clinical Fire Adjuster)[Signed 11:09] Authored: General Information, Health and Illness documented in this encounter Plan of Treatment Not on filedocumented as of this encounter Visit Diagnoses Not on filedocumented in this encounter Care Teams Public Weigher Relationship Specialty Start Date End Date Melvin Palacios MD PCP - General 06/22/99 09/20/10 [address] [id number] documented as of this encounter
--- OUTSIDE RECORDS SUMMARY | 2022-04-30 09:36 | XMS_ITS | Encounter Summary ---
:1975 Author Organization [place] Address [address] [place] [address]. [place] [address] Care Team Providers Name Role Phone Melvin Palacios MD Primary Care Provider Encounter Details Date Type Department Care Team Description 07/05/2010 Results Only [facility] Allen Rose , [facility] Radiology Results [address] [place] [address] (Wo rk) Social History Tobacco [...] Name Priority Date/Time Associated Diagnosis Comme nts MR BRAIN W/O Routine 07/05/2010 4:32 PM Results f or this CONTRAST VP SALES procedure are i n the results section. documented in this encounter Results MRI Brain w/o contrast (07/05/2010 4:32 PM VP SALES) Anatomical Region Laterality Modality Head, SUBRAD MR NEURO, UMP MR NEURO Othe r Specimen (Source) Anatomical Collection Method Collection Time Re ceived Time Location / / Volume Laterality 07/05/2010 4:32 PM VP SALES Impressions 07/05/2010 4:44 PM VP SALES MRI BRAIN W-O CONTRAST Jul 05, 2010 4:32 :00 PM HISTORY: Headache. Depression. TECHNIQUE: Routine pulse sequences witho ut contrast. FINDINGS: Diffusion-weighted images are normal. The brain parenchyma, brainstem, ventricular system, subarachn oid spaces, and vascular structures are normal in appearance. Spe cifically, there is no evidence for intracranial hemorrhage, ac chet infarct or any focal mass lesions. IMPRESSION: Negative brain and brainstem MRI examination without contrast. Allen Rose MD IMG MRI ORDERABLES documented in this encounter Visit Diagnoses Not on filedocumented in this encounter Care Teams Pickling Grader Relationship Specialty Start Date End Date Melvin Palacios MD PCP - General 06/22/99 09/20/10 [address] [id number] documented as of this encounter
--- OUTSIDE RECORDS SUMMARY | 2022-04-30 09:36 | XMS_ITS | Encounter Summary ---
:1975 Author Organization [facility] Address [address] [place] [address] Care Team Providers Name Role Phone Melvin Palacios MD Primary Care Provider Reason for Visit Reason Onset Date Comments Refill Request 02/26/2010 VIT D Encounter Details Date Type Department Care Team Description 02/26/2010 Refill [facility] Gurmeet Jimenez th, Refill Request (VIT D) [facility] [address] [place] [address] [place] [address] [place], [place] [phone] [address] (Wo rk) Social History Tobacco Use [...] FILL DATE: 01/25/10 QTY: 4 Camilo Hammonds [facility] documented in this encounter Plan of Treatment Not on filedocumented as of this encounter Visit Diagnoses Diagnosis Vitamin D deficiency - Primary Unspecified vitamin D deficiency documented in this encounter Care Teams Revenue Accounting Manager Relationship Specialty Start Date End Date Melvin Palacios MD PCP - General 06/22/99 09/20/10 [address] [id number] documented as of this encounter
--- OUTSIDE RECORDS SUMMARY | 2022-04-30 09:36 | XMS_ITS | Encounter Summary ---
:1975 Author Organization [facility] Address [address] [place] [address] Care Team Providers Name Role Phone Melvin Palacios MD Primary Care Provider Reason for Visit Reason Onset Date Comments Patient/info Update 11/14/2009 Encounter Details Date Type Department Care Team Description 11/14/2009 Telephone [facility] Harris Jung MD Patient/info Update [address] [phone] (Wo rk) Social History Tobacco Use Types [...] on filedocumented in this encounter Care Teams Extracorporeal Circulation Specialist Relationship Specialty Start Date End Date Melvin Palacios MD PCP - General 06/22/99 09/20/10 [address] [address] documented as of this encounter
--- OUTSIDE RECORDS SUMMARY | 2022-04-30 09:36 | XMS_ITS | Encounter Summary ---
:1975 Author Organization [place] Address [address] [place] [address] Care Team Providers Name Role Phone Melvin Palacios MD Primary Care Provider Encounter Details Date Type Department Care Team Description 07/02/2010 Historic Notes INTERFACED REPORT James Bautista MD [address] [facility] [place] [address] (Wo rk) Social History [...] on filedocumented in this encounter Care Teams Metallurgist Process Relationship Specialty Start Date End Date Melvin Palacios MD PCP - General 06/22/99 09/20/10 [address] [id number] documented as of this encounter
--- OUTSIDE RECORDS SUMMARY | 2022-04-30 09:36 | XMS_ITS | Encounter Summary ---
:1975 Author Organization [place] Address [address] [place] [address]. [place] [address] Care Team Providers Name Role Phone Melvin Palacios MD Primary Care Provider Encounter Details Date Type Department Care Team Description 07/06/2010 Historic Notes INTERFACED REPORT James Bautista MD [address] [place] [address] (Wo rk) Social History Tobacco [...] on filedocumented in this encounter Care Teams Dog Hair Clipper Relationship Specialty Start Date End Date Melvin Palacios MD PCP - General 06/22/99 09/20/10 [address] [phone] documented as of this encounter
--- OUTSIDE RECORDS SUMMARY | 2022-04-30 09:36 | XMS_ITS | Encounter Summary ---
:1975 Author Organization [facility] Address [address] [place] [address] Care Team Providers Name Role Phone Melvin Palacios MD Primary Care Provider Reason for Visit Reason Onset Date Comments Refill Request 06/05/2010 ZOLPIDEM 10MG Encounter Details Date Type Department Care Team Description 06/05/2010 Refill [facility] Lissette Hobbs, Refill Request Clinic Carmen Brewer MD (ZOLPIDEM 10MG) [address] [place], [place] [address] [facility] [address] [place] [address] [place] [address] (Wo rk) Social History Tobacco Use Types [...] AM CST Walked over to RISHI Bruce MAKER CUSTOM Telephone Encounter - Stacey Torres - 06/05/2010 2:07 PM CST Last OV: 08/16/09 with CL Reason for visit: adjustment disorder Date last filled: see below Unable to fill PSO Stacey Torres RN MAKER [employer] Telephone Encounter - Kristine Bermudez - 06/05/2010 1:47 PM CST Last filled 10/22/09 Qty 30 Kristine [facility] RX MAKER [employer]OM documented in this encounter Plan of Treatment Not on filedocumented as of this encounter Visit Diagnoses Diagnosis Adjustment disorder with anxiety documented in this encounter Care Teams Treatment Technician Relationship Specialty Start Date End Date Melvin Palacios MD PCP - General 06/22/99 09/20/10 [address] [id number] documented as of this encounter
--- OUTSIDE RECORDS SUMMARY | 2022-04-30 09:36 | XMS_ITS | Encounter Summary ---
:1975 Author Organization [facility] Address [address] [place] [address] Care Team Providers Name Role Phone Esmer Roland MD Primary Care Provider [phone] Reason for Visit Reason Comments UTI RN protocol UTI Encounter Details Date Type Department Care Team Description 10/10/2010 Allied Health/Nurse [facility] UTI (RN protocol UTI) Visit Clinic [address], [address] [place] [address] Social History Tobacco Use Types [...] Results URINE CULTURE (10/10/2010 9:23 AM CDT) [facility] Method Time Signature Specimen Midstream [place] Description Urine [facility] Culture Micro No growth [facility] Micro Report FINAL [place] Status 10/12/2010 [facility] Specimen Anatomical Collection Method Collection Time Receive d Time (Source) Location / / Volume Laterality 10/10/2010 9:23 AM 1 9:25 CDT AM CDT Esmer Roland MD LAB - MICRO GENERAL ORDERABL ES Performing Organization Address City/[facility]/ZIP [facility] Phon e Number [facility] [address] [place] [address] [facility] (ABNORMAL) Microscopic exam urine (10/10/2010 9:13 AM CDT) [facility] Method Time Signature WBC Urine 5-10 (A) 0 - 2 [place] /HPF [facility] RBC Urine 5-10 (A) 0 - 2 [place] /HPF [facility] Squamous Moderate (A) FEW /LPF [place] Epithelial LONG BOTTOM /LPF Urine CLINIC LAB Bacteria Urine Few (A) NEG /HPF [facility] Mucous Urine Present (A) NEG /LPF [facility] Specimen Anatomical Collection Method Collection Time Receive d Time (Source) Location / / Volume Laterality 10/10/2010 9:13 AM 1 9:15 CDT AM CDT Esmer Roland MD LAB - URINE ORDERABLES Performing Organization Address City/[facility] Phon e Number [facility] [place] [address] [facility] (ABNORMAL) UA macroscopic with reflex to micro (10/10/2010 9:13 AM CDT) [facility] Method Time Signature Color Urine Cathy [facility] Appearance Urine Slightly [place] Cloudy [facility] Glucose Urine Negative NEG mg/dL [facility] Bilirubin Urine Negative NEG [facility] Ketones Urine Trace (A) NEG mg/dL [facility] Specific [place] 1.025 1.003 - [place] Urine 1.035 [facility] Blood Urine Small (A) NEG [facility] pH Urine 5.5 5.0 - 7.0 [place] pH [facility] Protein Albumin Trace (A) NEG mg/dL [place] Urine [facility] Urobilinogen 1.0 0.2 - 1.0 [place] Urine EU/dL [facility] Nitrite Urine Negative NEG [facility] Leukocyte Trace (A) NEG [place] Esterase Urine [facility] Source Midstream [place] Urine [facility] Specimen Anatomical Collection Method Collection Time Receive d Time (Source) Location / / Volume Laterality Urine specimen 10/10/2010 9:13 AM 011 9:15 (specimen) CDT AM CDT Esmer Roland MD LAB - URINE ORDERABLES Performing Organization Address City/State/ZIP Code Phon e Number [facility] [place] [address] [facility] documented in this encounter Visit Diagnoses Diagnosis Dysuria - Primary Other nonspecific finding on examination of urine documented in this encounter Care Teams Commissary Superintendent Relationship Specialty Start Date End Date Esmer Roland MD PCP - General Family Practice 09/21/10 01/29/17 documented as of this encounter
--- OUTSIDE RECORDS SUMMARY | 2022-04-30 09:36 | XMS_ITS | Encounter Summary ---
:1975 Author Organization [place] Address [address] [place] [address] Care Team Providers Name Role Phone Fawad Roland MD Primary Care Provider [phone] Reason for Visit Reason Comments Lesion Removal Mole removal right forearm. Encounter Details Date Type Department Care Team Description 09/21/2010 Office Visit [facility] Fawad Roland l mole Clinic Sara Byrd MD (Primary Dx) [place] [address] [facility], [address] [place] [address] [place], [place] [phone] (Wo rk) [address] [phone] Social History Tobacco Use Types Packs/Day Years [...] Body Mass Index 26.16 08/14/2010 8:58 AM APPARATUS ENGINEERING TECHNOLOGIST documented in this encounter Progress Notes Fawad [...] Component Value Ref Test Analysis Performed At [facility] gist Range Method Time Signature Copath Report Patient Name: DARIANA VALDEZ MR#: [id number] Specimen #: [id number] Collected: 09/21/2010 Received: 09/22/2010 Reported: 09/24/2010 18:22 [...] obtained (MGP). SA/imani 09-24-10 TESTING LAB LOCATION: [address] ??[address] COLLECTION SITE: Client: [facility] Location: [facility] (R) Specimen Anatomical Collection [...] d documented in this encounter Care Teams Health Consultant Relationship Specialty Start Date End Date Fawad Roland MD PCP - General Family Practice 09/21/10 01/29/17 documented as of this encounter
--- OUTSIDE RECORDS SUMMARY | 2022-04-30 09:37 | XMS_ITS | Encounter Summary ---
:1975 Author Organization [place] Address [address] [place] [address] Care Team Providers Name Role Phone Melvin Palacios MD Primary Care Provider Reason for Visit Reason Onset Date Comments Refill Request 10/23/2009 Sonu Encounter Details Date Type Department Care Team Description 10/23/2009 Refill [facility] Melvin Palacios MD Refill Request (KLONOPIN [facility] [place] [address] Janie [address] anish) [address] [place] [address] [place] [address] [phone] Social History Tobacco Use Types Packs/Day Years [...] KLONOPIN=07/31/09, AMBIEN=09/11/09 QTY: KLONOPIN=40, AMBIEN=30 Camilo Hammonds [facility] documented in this encounter Plan of Treatment Not on filedocumented as of this encounter Visit Diagnoses Diagnosis Adjustment disorder with anxiety - Prima ry documented in this encounter Care Teams Leather Lacer Relationship Specialty Start Date End Date Melvin Palacios MD PCP - General 06/22/99 09/20/10 [address] [phone] documented as of this encounter
--- OUTSIDE RECORDS SUMMARY | 2022-04-30 09:37 | XMS_ITS | Encounter Summary ---
:1975 Author Organization [place] Address [address] [place] [address] Care Team Providers Name Role Phone Melvin Palacios MD Primary Care Provider Reason for Visit Reason Comments RECHECK meds, migraines, not keeping food down Patient Request for Note/Letter for FMLA - verify date s that she missed work Refill Request Celexa - 3 months Encounter Details Date Type Department Care Team Description 06/19/2009 Office Visit [facility] Melvin Palacios MD Gastropareses; Clinic [address] GERD (Gastroesophageal Reflu x Disease); [address] [place] [address] Nausea; [place], [place] [facility] ANXIETY S [place] NOS; [phone] Major Depress Dis, Severe [phone] Social History Tobacco Use Types Packs/Day Years [...] Comments Blood Pressure 110/58 06/19/2009 3:40 PM VP CARDIOVASCULAR Pulse 66 06/19/2009 3:40 PM VP CARDIOVASCULAR Temperature 36.9 ??C (98.4 ??F) 06/19/2009 3:40 PM VP CARDIOVASCULAR Respiratory Rate - - Oxygen Saturation - - Inhaled Oxygen Concentration - - Weight 69.9 kg (154 lb) 06/19/2009 3:40 PM VP CARDIOVASCULAR Height 168.9 cm (5' 6.5) 06/19/2009 3:40 PM VP CARDIOVASCULAR Body Mass Index 24.48 06/19/2009 3:40 PM VP CARDIOVASCULAR documented in this encounter Progress Notes Melvin [...] flare. FMLA clarified to reflect lost dates. CARDIOVASCULAR documented in this encounter Nursing Notes 06/19/2009 [...] behavior documented in this encounter Care Teams Carpentry Supervisor Relationship Specialty Start Date End Date Melvin Palacios MD PCP - General 06/22/99 09/20/10 [address] [id number] documented as of this encounter
--- OUTSIDE RECORDS SUMMARY | 2022-04-30 09:37 | XMS_ITS | Encounter Summary ---
:1975 Author Organization [place] Address [address] [place] [address] Care Team Providers Name Role Phone Melvin Palacios MD Primary Care Provider Reason for Visit Reason Onset Date Comments Refill Request 07/29/2009 Encounter Details Date Type Department Care Team Description 07/29/2009 MyC Refill [facility] Zena Palacios MD Refill Request [address] [phone] (W ork) [address] [phone] Social History Tobacco Use Types Packs/Day Years [...] visit: adjustment disorder w/anxiety Date last filled: [id number] KLONOPIN IS NOT A PSO MED FILLED OMEPRAZOLE PER PSO Laina Pickett RN OTYPE ENGINEER Telephone Encounter - Melissa Pickett - 07/31/2009 11:31 AM PROTOTYPE ENGINEER Message from [employer]: Dariana Osman would like a refill of the following medications: OMEPRAZOLE 40 MG OR CPDR [Melvin Palacios MD] KLONOPIN 1 MG OR TABS [Melvin Palacios MD] Preferred pharmacy: [facility] Comment: Dr Palacios - I have noticed a little more use than PRN for my Klonopin and Omeprazole. It seems to be the week when the boys are with their father.Dariana OTYPE ENGINEER documented in this encounter Plan of Treatment Not on filedocumented as of this encounter Visit Diagnoses Diagnosis Gastropareses Gastroparesis GERD (gastroesophageal reflux disease) Esophageal reflux Nausea Nausea alone Adjustment disorder with anxiety documented in this encounter Care Teams Public Finance Specialist Relationship Specialty Start Date End Date Melvin Palacios MD PCP - General 06/22/99 09/20/10 [address] [address] documented as of this encounter
--- OUTSIDE RECORDS SUMMARY | 2022-04-30 09:37 | XMS_ITS | Encounter Summary ---
:1975 Author Organization [facility] Address [address] [facility] [place] [address] Care Team Providers Name Role Phone Melvin Palacios MD Primary Care Provider Encounter Details Date Type Department Care Team Description 09/20/2009 Emergency room [facility] Harris Mcmahan MD Hospital Results [facility] [address] [place], [place] [address] (Wo rk) Social History [...] her to the ED, Dr. Hauser from [facility]. She states that she does not know [...] abdomen, just lateral to the umbilicus. SKIN: [place], warm, dry. EYES: Pupils are equal, round [...] SANDRO#[id number] Name: DARIANA VALDEZ MRN: [id number] Account: [id number] : 1975 Visit Date: 09/20/2009 Document: [id number] documented in this encounter Plan of Treatment Not on filedocumented as of this encounter Visit Diagnoses Not on filedocumented in this encounter Care Teams Blueprint Clerk Relationship Specialty Start Date End Date Melvin Palacios MD PCP - General 06/22/99 09/20/10 [address] [id number] documented as of this encounter
--- OUTSIDE RECORDS SUMMARY | 2022-04-30 09:37 | XMS_ITS | Encounter Summary ---
:1975 Author Organization [place] Address [address] [place] [address] Care Team Providers Name Role Phone Melvin Palacios MD Primary Care Provider Encounter Details Date Type Department Care Team Description 10/19/2009 Orders Only [employer] DEP RESSIVE DISORDER NEC; [facility] Adjustment Disorder with Dep ressed Mood [facility], [address] [place] [address] Social History Tobacco Use [...] CDT) P athologist Signature Progesterone 0.8 ng/mL [facility] Comment: Progesterone Reference Range Female Non ? Follicular ?0.15-1.4 ? Luteal ?3.4-25 .6 ? Postmenopausal ??<0.15-0.73 ? 1st Trimester ?? 11.2-90.0 ? 2nd Trimester ?? 25.6-89.4 ? 3rd Trimester ?? 48.4-422.5 Specimen Anatomical Collection Method Collection Time Receive d Time (Source) Location / / Volume Laterality 10/19/2009 11:04 10/19/2009 AM CDT 11:06 AM CDT Aleksandra Jimenez PA-C LABORATORY Performing Organization Address City/[facility]/ZIP Code Phon e Number [facility] [address] LABS VITAMIN B12, SERUM (10/19/2009 11:04 AM CDT) athologist Signature Vitamin B12 285 >210 pg/mL [facility] Comment: Interp: [phone] = Normal Specimen Anatomical Collection Method Collection Time Receive d Time (Source) Location / / Volume Laterality 10/19/2009 11:04 10/19/2009 AM CDT 11:06 AM CDT Aleksandra Jimenez PA-C LABORATORY Performing Organization Address City/State/ZIP Code Phon e Number [facility] [address] LABS (ABNORMAL) VITAMIN D DEFICIENCY SCREENING (10/19/2009 11:04 AM CDT) Component Value Ref Test Analysis Performed At Patholo gist Range Method Time Signature 25 [place] Vit D2 <5 ug/L [facility] 25 [place] Vit D3 24 ug/L [facility] 25 [place] Vit D <29 30 - 75 [facility] total Season, race, dietary intake, and treatm ent affect the concentration of ug/L [facility] 86-fzghyjs-Txezunq D. Values may decrease during odalis er months and increase [facility]AMPUS LABS during summer months. Values less than 30 ug/L may indicate Vitamin D deficiency. (L) Specimen Anatomical Collection Method Collection Time Receive d Time (Source) Location / / Volume Laterality 10/19/2009 11:04 10/19/2009 AM CDT 11:06 AM CDT Aleksandra Jimenez PA-C LABORATORY Performing Organization Address City/[facility]/ZIP Code Phon e Number [facility] [address] [place] [address] [facility] ESTROGENS, TOTAL, SERUM (10/19/2009 11:04 AM CDT) [facility] gist Method Time Signature Estrogen (Note) [facility] Total Test ?Result ??Units [place] Estrogen, Total, Serum ?254 ? pg/mL [facility] Reference Range Ranges For Total Estrogen: ??Early Follicular Phase: ?? 70-400 pg/mL ??Late Follicular Phase: ?? 100-900 pg/ml ??Luteal Phase: ? 70-700 pg/mL ??Postmenopausal: ? < or = 130 pg/mL The total estrogen assay is not recommended for use in pre-p ubertal children. Asayed at: [place] [address] Specimen Anatomical Collection Method Collection Time Receive d Time (Source) Location / / Volume Laterality 10/19/2009 11:04 10/19/2009 AM CDT 11:06 AM CDT Aleksandra Jimenez PA-C LABORATORY Performing Organization Address City/[facility] Code Phon e Number [facility] [address] [place] [address] [facility] documented in this encounter Visit Diagnoses Diagnosis DEPRESSIVE DISORDER NEC Depressive disorder, not elsewhere class ified Adjustment disorder with depressed mood documented in this encounter Care Teams Loan Auditor Relationship Specialty Start Date End Date Melvin Palacios MD PCP - General 06/22/99 09/20/10 [address] [place] [address] documented as of this encounter
--- OUTSIDE RECORDS SUMMARY | 2022-04-30 09:37 | XMS_ITS | Encounter Summary ---
:1975 Author Organization [facility] Address [address] [place] [address] Care Team Providers Name Role Phone Melvin Palacios MD Primary Care Provider Reason for Visit Reason Onset Date Comments Refill Request 09/09/2009 ZOLPIDEM 10MG Encounter Details Date Type Department Care Team Description 09/09/2009 Refill [facility] Melvin Palacios MD Refill Request (ZOLPIDEM [facility] [place] [address] 10MG) [address] [place], [place] [address] [phone] Social History Tobacco Use Types Packs/Day Years [...] ry documented in this encounter Care Teams Expansion Joint Finisher Relationship Specialty Start Date End Date Melvin Palacios MD PCP - General 06/22/99 09/20/10 [address] [address] documented as of this encounter
--- OUTSIDE RECORDS SUMMARY | 2022-04-30 09:37 | XMS_ITS | Encounter Summary ---
:1975 Author Organization [place] Address [address] [place] [address] Care Team Providers Name Role Phone Melvin Palacios MD Primary Care Provider Reason for Visit Reason Onset Date Comments Refill Request 08/04/2009 ZOLPIDEM Encounter Details Date Type Department Care Team Description 08/04/2009 Refill [facility] Melvin Palacios MD Refill Request Clinic [place] [address] (ZOLPIDEM) [address] [place] [address] [phone] Social History Tobacco Use Types Packs/Day Years [...] CST Walked to pharmacy. Stacey Torres RN ATRIC SPEECH LANGUAGE PATHOLOGIST Telephone Encounter - Desire Bishop - 08/04/2009 12:18 PM CST Date of last OV: 07/07/09 Reason for visit: adjustment disorder Date last filled: per epic 07/07/09 #30 Labs pertaining to med: none, Unable to approve per standing orders, routed to provider. Desire Bishop RN ATRIC SPEECH LANGUAGE PATHOLOGIST Telephone Encounter - Ban Monge - 08/04/2009 9:28 AM CST LAST FILL DATE: 07/07/09 LAST QTY: 30 TIERA HERNANDEZ [facility] ATRIC SPEECH LANGUAGE PATHOLOGIST documented in this encounter Plan of Treatment Not on filedocumented as of this encounter Visit Diagnoses Diagnosis Adjustment disorder with anxiety documented in this encounter Care Teams Plastics Fitter Relationship Specialty Start Date End Date Melvin Palacios MD PCP - General 06/22/99 09/20/10 [address] [address] documented as of this encounter
--- OUTSIDE RECORDS SUMMARY | 2022-04-30 09:37 | XMS_ITS | Encounter Summary ---
:1975 Author Organization [place] Address [address] [place] [address] Care Team Providers Name Role Phone Melvin Palacios MD Primary Care Provider Esmer Roland MD Primary Care Provider [phone] Yony Garcia PA-C Primary Care Provider [phone] Yony Garcia PA-C Unavailable [phone] Erik Rivas Primary Care Provider Yony Garcia PA-C Unavailable [phone] Reason for Visit Reason Onset Date Comments Patient Inquiry 06/27/2009 [facility] Encounter Details Date Type Department Care Team Description 06/27/2009 [facility] Melvin Palacios MD Patient Inquiry Clinic [place] [address] ([facility] - [address] [place] [address]) [place], [place] [phone] (Wo rk) Social History Tobacco Use Types [...] - 06/27/2009 2:20 PM CST Arlene Reyes, Shop Laborer Adalgisa with [facility] [phone] called regarding a release of information Dariana was requesting her records be faxed to her [facility]. Adalgisa states that she has been missing her appointments. Has had some no shows. Cancelled her Fridayappointment 30 mins before appt. Late session 05/16/09. Adalgisa has called her and left messages to return her call but she doesn't call back. They have a strick attendance agreement. FYI - you can close the encounter when finished. ER DEPOSIT OPERATOR documented in this encounter Plan of Treatment Not on filedocumented as of this encounter Visit Diagnoses Not on filedocumented in this encounter Care Teams Skill Labor Relationship Specialty Start Date End Date Melvin Palacios MD PCP - General 06/22/99 09/20/10 [address] [place] [address] Esmer Roland, PCP - General Family Practice 09/21/10 01/29/17 Yony Garcia, PCP - General Physician Sweep Molder - 01/30/17 07/23/18 PA-C Medical Yony Garcia, PCP - Assigned PCP 09/01/16 08/11/18 PA-C [address] [place] [address] Erik Rivas PCP - General Family Practice 07/24/[address] [address] Yony Garcia, Assigned PCP 09/01/16 [place] [address] [address] [place], [place] [address] documented as of this encounter
--- OUTSIDE RECORDS SUMMARY | 2022-04-30 09:37 | XMS_ITS | Encounter Summary ---
:1975 Author Organization [facility] Address [address] [place] [address] Care Team Providers Name Role Phone Melvin Palacios MD Primary Care Provider Reason for Visit Reason Onset Date Comments Refill Request 07/03/2009 francis Encounter Details Date Type Department Care Team Description 07/03/2009 MyC Refill M [facility] [place] Refill Sejal robertsest (ambien Clinic [place] [facility]) [address] [place] [address] [phone] Social History Tobacco Use Types Packs/Day Years [...] 9:28 AM CST She should come in IFIED MASTER SAFECRACKER Telephone Encounter - Pau Ribeiro - 07/04/2009 [...] listed on hardcopy. Thanks Pau Ribeiro RN IFIED MASTER SAFECRACKER Telephone Encounter - Tobi Beltran - 07/03/2009 4:33 PM CERTIFIED MASTER SAFECRACKER I cant fill this rx. Please check with Dariana to see who is managing her anxiety medications and direct refill there. IFIED MASTER SAFECRACKER Telephone Encounter - Stacey Torres - 07/03/2009 4:16 PM CST Last OV: 06/19/09 Reason for visit: mult concerns Date last filled: klonopin 06/10/09 Ambien 06/01/09 Unable to fill [facility] Stacey Torres RN IFIED MASTER SAFECRACKER Telephone Encounter - Stacey Torres - 07/03/2009 4:14 PM CERTIFIED MASTER SAFECRACKER Message from [facility]: Dariana Osman would like a refill of the following medications: KLONOPIN 1 MG OR TABS [Nemesio Mcguire MD] ZOLPIDEM TARTRATE 10 MG OR TABS [Melvin Palacios MD] Preferred pharmacy: [facility] Comment: IFIED MASTER SAFECRACKER documented in this encounter Plan of Treatment Not on filedocumented as of this encounter Visit Diagnoses Diagnosis Adjustment disorder with anxiety documented in this encounter Care Teams Boilermaker Industrial Boilers Relationship Specialty Start Date End Date Melvin Palacios MD PCP - General 06/22/99 09/20/10 [address] [address] documented as of this encounter
--- OUTSIDE RECORDS SUMMARY | 2022-04-30 09:37 | XMS_ITS | Encounter Summary ---
:1975 Author Organization [facility] Address [address] [place] [address] Care Team Providers Name Role Phone Melvin Palacios MD Primary Care Provider Encounter Details Date Type Department Care Team Description 09/20/2009 Historic Results [facility] Shane Garcia MD [address] [address] [address] [phone] [place], [place] [address] (Wo rk) Social History [...] Results Wet prep (09/20/2009 3:39 PM CDT) [facility] WorkProducts Method Time Signature Specimen Vagina MISYS Description [...] MICRO GENERA L ORDERABLES Performing Organization Address City/[facility]/ZIP Code Phon e Number MISYS Chlamydia trachomatis PCR (09/20/2009 3:39 PM CDT) Component Value Ref Test Analysis Performed At [facility] WorkProducts Range Method Time Signature Specimen Cervical MISYS Description Chlamydia Negative for C. MISYS Trachomatis PCR trachomatis rRNA by electronic musical instrument repairer mediated amplification. Comment: A negative result by electronic musical instrument repairer medi ated amplification does not preclude the [...] Neisseria gonorrhoeae PCR (09/20/2009 3:39 PM CDT) [facility] Work[employer] Method Time Signature Specimen Cervical MISYS Descrip N Gonorrhea Negative for N. MISYS PCR gonorrhoeae rRNA by electronic musical instrument repairer mediated amplification. Comment: A negative result by electronic musical instrument repairer medi ated amplification does not preclude the [...] on filedocumented in this encounter Care Teams Commercial Real Estate Underwriter Relationship Specialty Start Date End Date Melvin Palacios MD PCP - General 06/22/99 09/20/10 [address] [id number] documented as of this encounter
--- OUTSIDE RECORDS SUMMARY | 2022-04-30 09:37 | XMS_ITS | Encounter Summary ---
:1975 Author Organization [facility] Address [address] [place] [address] Care Team Providers Name Role Phone Melvin Palacios MD Primary Care Provider Encounter Details Date Type Department Care Team Description 07/11/2009 Orders Only [facility] Melvin Palacios MD Routine Physical [facility] [place] [address] [place] [address] Examination (Primary [facility]) [address] [place] [phone] Social History Tobacco Use Types Packs/Day Years [...] facility documented in this encounter Care Teams Police Commanding Officer Relationship Specialty Start Date End Date Melvin Palacios MD PCP - General 06/22/99 09/20/10 [address] [place] [address] documented as of this encounter
--- OUTSIDE RECORDS SUMMARY | 2022-04-30 09:37 | XMS_ITS | Encounter Summary ---
:1975 Author Organization [facility] Address [address] [place] [address] Care Team Providers Name Role Phone Melvin Palacios MD Primary Care Provider Reason for Visit Reason Onset Date Comments Refill Request 06/01/2009 [place] Encounter Details Date Type Department Care Team Description 06/01/2009 Refill [facility] Melvin Palacios MD Refill Request (Ambien) Clinic [address] [place] [address] [phone] Social History Tobacco Use Types Packs/Day Years [...] 11:28 AM CST Already completed. Jeimy Bowman TOPPER PRESS OPERATOR CH MECHANIC documented in this encounter Plan of Treatment Not on filedocumented as of this encounter Visit Diagnoses Diagnosis Adjustment disorder with anxiety documented in this encounter Care Teams Uplands Division Director Relationship Specialty Start Date End Date Melvin Palacios MD PCP - General 06/22/99 09/20/10 [address] [address] documented as of this encounter
--- OUTSIDE RECORDS SUMMARY | 2022-04-30 09:37 | XMS_ITS | Encounter Summary ---
:1975 Author Organization [place] Address [address] [place] [address] Care Team Providers Name Role Phone Melvin Palacios MD Primary Care Provider Reason for Visit Reason Comments Abnormal Uterine Bleeding abnormal bleeding for severa l months Encounter Details Date Type Department Care Team Description 11/07/2009 Office Visit [facility] Cayetano Jung Adjustm ent Disorder with Anxiety (Primary Dx); [facility] [place] Abnormal Uterine Bleeding [address] [address] [facility] [address] [place], [place] [address] Social History Tobacco Use Types Packs/Day Years [...] athologist Signature TSH 1.14 0.4 - 5.0 [facility] mU/L [facility] Specimen Anatomical Collection Method Collection Time Receive d Time (Source) Location / / Volume Laterality 11/07/2009 4:36 PM 0 4:37 CDT PM CDT Cayetano Jung MD LABORATORY Performing Organization Address City/State/ZIP Code Phon e Number [facility] [address] [place] [address] [facility] SURGICAL PATHOLOGY (11/07/2009 12:00 AM CDT) Component Value Ref Test Analysis Performed At [facility] gist Range Method Time Signature Copath Report Patient Name: DARIANA VALDEZ MR#: [id number] Specimen #: [id number] Collected: 11/07/2009 Received: 11/08/2009 Reported: 11/09/2009 14:35 [...] ot identified. KARLEE/imani 11-09-09 TESTING LAB LOCATION: [facility] [address] [place], [place] ??[address] COLLECTION SITE: Client: [facility] Location: LVOB (R) Specimen (Source) Anatomical Collection [...] tract documented in this encounter Care Teams Plant Taxonomy Teacher Relationship Specialty Start Date End Date Melvin Palacios MD PCP - General 06/22/99 09/20/10 [address] [address] documented as of this encounter
--- OUTSIDE RECORDS SUMMARY | 2022-04-30 09:37 | XMS_ITS | Encounter Summary ---
:1975 Author Organization [facility] Address [address] [place] [address] Care Team Providers Name Role Phone Melvin Palacios MD Primary Care Provider Reason for Visit Reason Comments Forms Encounter Details Date Type Department Care Team Description 08/16/2009 Office Visit [facility] Melvin Palacios MD Adjustment Disorder with Depressed Mood; Clinic [address] Migraine Headaches [address] [place], [place] [address] [phone] Social History Tobacco Use Types Packs/Day Years [...] Comments Blood Pressure 118/65 08/16/2009 2:54 PM DENTAL CREAM MAKER Pulse 82 08/16/2009 2:54 PM DENTAL CREAM MAKER Temperature - - Respiratory Rate - - Oxygen Saturation - - Inhaled Oxygen Concentration - - Weight 69.9 kg (154 lb) 08/16/2009 2:54 PM DENTAL CREAM MAKER Height - - Body Mass Index 24.48 06/19/2009 3:40 PM DENTAL CREAM MAKER documented in this encounter Progress Notes Melvin Palacios - 08/16/2009 3:16 PM CST Pt here for completion of two separate FMLA forms for migraine HAYES intermittent absence issues and 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 Her igraines have improved markedly as she has not had migraine in nearly 3 months. Pt is now in counselling at [facility] and has developed an excellent rapport with therapist. EXAM: PSYCH: euthymic. No violent ideation. No delusions or hallucinations. A/P; 1- Migraine HAYES hx. Stable. 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 Doing well. Maintain curent medications, her use of prn meds imarkedly reduced. No refill given today. F/u in 2 months. AL CREAM MAKER documented in this encounter Nursing Notes 08/16/2009 [...] migrainosus documented in this encounter Care Teams Project Accountant Relationship Specialty Start Date End Date Melvin Palacios MD PCP - General 06/22/99 09/20/10 [address] [address] documented as of this encounter
--- OUTSIDE RECORDS SUMMARY | 2022-04-30 09:37 | XMS_ITS | Encounter Summary ---
:1975 Author Organization [facility] Address [address] [place] [address] Care Team Providers Name Role Phone Melvin Palacios MD Primary Care Provider Reason for Visit Reason Comments Medication Request Encounter Details Date Type Department Care Team Description 07/07/[address] [facility] Melvin Palacios MD Adjustment Disorder Clinic [place] [address] with Anxiety (Primary [address] [facility]) [place], [place] [facility] [place] [address] [phone] Social History Tobacco Use Types Packs/Day Years [...] Comments Blood Pressure 112/62 07/07/2009 10:38 AM RETAIL LOAN ORIGINATOR Pulse 64 07/07/2009 10:38 AM RETAIL LOAN ORIGINATOR Temperature - - Respiratory Rate - - Oxygen Saturation - - Inhaled Oxygen Concentration - - Weight 68.9 kg (152 lb) 07/07/2009 10:38 AM RETAIL LOAN ORIGINATOR Height - - Body Mass Index 24.17 06/19/2009 3:40 PM RETAIL LOAN ORIGINATOR documented in this encounter Progress Notes Melvin [...] to improve counselling and eas scheduling conflicts. [place] LOAN ORIGINATOR documented in this encounter Nursing Notes 07/07/2009 [...] ry documented in this encounter Care Teams C.O.D. Biller Relationship Specialty Start Date End Date Melvin Palacios MD PCP - General 06/22/99 09/20/10 [address] [address] documented as of this encounter
--- OUTSIDE RECORDS SUMMARY | 2022-04-30 09:37 | XMS_ITS | Encounter Summary ---
:1975 Author Organization [facility] Address [address] [place] [address]. [place] [address] Care Team Providers Name Role Phone Melvin Palacios MD Primary Care Provider Reason for Visit Reason Comments Urgent Care UTI since fri Encounter Details Date Type Department Care Team Description 11/11/2009 Office Visit [facility] Vasquez MD Dysuria (Primary Dx); Care 2019 E UTI (Urinary Tract Infection ) [address] [address] [place], [place] [phone] [address] Social History Tobacco Use Types Packs/Day [...] ONE TABLET DAILY ??? VITAMIN D (ERGOCALCIFEROL) [address] UNIT PO CAPS 1 CAPSULE WEEKLY for [...] Results URINE CULTURE (11/11/2009 2:21 PM CDT) [facility] gist Method Time Signature Specimen Midstream Urine [facility] Description [facility] Culture Micro 10 to 50,000 [facility] colonies/mL [facility] coli Micro Report FINAL [facility] Status 11/14/2009 [facility] Specimen Anatomical Collection Method [...] [facility] Vasquez MD LABORATORY Performing Organization Address City/[facility]/ZIP Code Phon e Number [facility] [address] [facility] [place] [address] [facility] (ABNORMAL) MICRO EXAM-URINE (11/11/2009 2:21 PM CDT) [facility] Method Time Signature WBC Urine >100 (A) 0 - 2 [facility] /[facility] RBC Urine 10-25 (A) 0 - 2 [facility] Squamous Few FEW /LPF [facility] Epithelial /LPF [facility] Urine LAB Renal Tub Epi Few (A) NEG /HPF [facility] Mucous Urine Present (A) NEG /LPF [facility] Specimen Anatomical Collection Method Collection Time Receive d Time (Source) Location / / Volume Laterality 11/11/2009 2:21 PM 0 2:27 CDT PM CDT [facility] Vasquez MD LABORATORY Performing Organization Address City/[facility]/ZIP Code Phon [facility] Number [facility] [address] [facility] [place] [address] [facility] (ABNORMAL) UA MICRO IF POSITIVE (11/11/2009 2:21 PM CDT) [facility] Method Time Signature Color Urine Yellow [facility] Appearance Urine Cloudy [facility] Glucose Urine Negative NEG mg/dL [facility] Bilirubin Urine Negative NEG [facility] Ketones Urine Trace (A) NEG mg/dL [facility] Specific [place] >1.030 1.003 - [facility] Urine 1.035 [facility] Blood Urine Moderate (A) NEG [facility] pH Urine 5.5 5.0 - 7.0 [facility] pH [facility] Protein Albumin 100 (A) NEG mg/dL [facility] Urine [facility] Urobilinogen 1.0 0.2 - 1.0 [facility] Urine EU/dL [facility] Nitrite Urine Negative NEG [facility] Leukocyte Moderate (A) NEG [facility] Esterase Urine [facility] Source Midstream [facility] Urine [facility] Specimen Anatomical Collection Method Collection Time Receive d Time (Source) Location / / Volume Laterality 11/11/2009 2:21 PM 11/11/201 0 2:27 CDT PM CDT [facility] Vasquez MD LABORATORY Performing Organization Address City/State/ZIP Code Phon e Number [facility] [address] [place] [address] [place] [address] [facility] documented in this encounter Visit Diagnoses Diagnosis Dysuria - Primary UTI (urinary tract infection) Urinary tract infection, site not specif ied documented in this encounter Care Teams Wildlife Forensic Geneticist Relationship Specialty Start Date End Date Melvin Palacios MD PCP - General 06/22/99 09/20/10 [address] [address] documented as of this encounter
--- OUTSIDE RECORDS SUMMARY | 2022-04-30 09:37 | XMS_ITS | Encounter Summary ---
:1975 Author Organization [facility] Address [address] [place] [address] Care Team Providers Name Role Phone Melvin Palacios MD Primary Care Provider Reason for Visit Reason Onset Date Comments Refill Request 06/17/2009 CITALOPRAM 40MG Encounter Details Date Type Department Care Team Description 06/17/2009 Refill [facility] Melvin Palacios MD Refill Request Clinic [place] [address] [place] [address] (CITALOPRAM 40MG) [address] [place] [address] [place] [address] [phone] Social History Tobacco Use Types Packs/Day Years [...] Unable to fill [facility] Stacey Torres RN E PROFESSOR Telephone Encounter - Kristine Bermudez - 06/17/2009 10:26 AM CST Last filled 05/17/09 Qty 30 Kristine [facility] RX E PROFESSOR documented in this encounter Plan of Treatment Not on filedocumented as of this encounter Visit Diagnoses Diagnosis DEPRESSIVE DISORDER NEC Depressive disorder, not elsewhere class ified ANXIETY STATE NOS Anxiety state, unspecified documented in this encounter Care Teams Bicycle Fitter Relationship Specialty Start Date End Date Melvin Palacios MD PCP - General 06/22/99 09/20/10 [address] [address] documented as of this encounter
--- OUTSIDE RECORDS SUMMARY | 2022-04-30 09:37 | XMS_ITS | Encounter Summary ---
:1975 Author Organization [place] Address [address] [place] [address] Care Team Providers Name Role Phone Melvin Palacios MD Primary Care Provider Encounter Details Date Type Department Care Team Description 07/11/2009 Orders Only [facility] Physical [place] [facility] Examination [facility], [address] [place] [address] Social History Tobacco Use [...] Routine Physical Re sults for this PLATELETS SENIOR QUALITATIVE RESEARCHER Examination procedure are i n the results section. HCL COMPREHENSIVE Routine 07/11/2009 9:48 AM Routine Physical Results for this METABOLIC PANEL SENIOR QUALITATIVE RESEARCHER Examination procedure ar e in the results section. HCL TSH W/FREE T4 Routine 07/11/2009 9:48 AM Routine Physical Results for this REFLEX SENIOR QUALITATIVE RESEARCHER Examination procedure are i n the results section. CL AFF A.M.A. LIPID Routine 07/11/2009 9:48 AM Routine Physica l Results for this PANEL SENIOR QUALITATIVE RESEARCHER Examination procedure are i n the results section. documented in this encounter Results CBC WITH PLATELETS (07/11/2009 9:48 AM SENIOR QUALITATIVE RESEARCHER) athologist Signature WBC 5.5 4.0 - 11.0 [place] 10e9/L [facility] RBC Count 4.68 3.8 - 5.2 [place] 10e12/L [facility] Hemoglobin 14.3 11.7 - [facility] 15.7 g/dL [facility] Hematocrit 42.4 35.0 - [facility] 47.0 % [facility] MCV 91 78 - 100 [place] fl [facility] MCH 30.6 26.5 - [facility] 33.0 pg [facility] MCHC 33.7 31.5 - [facility] 36.5 g/dL [facility] RDW 12.4 10.0 - [facility] 15.0 % [facility] Platelet Count 275 150 - 450 [place] 10e9/L [facility] Specimen Anatomical Collection Method Collection Time Receive d Time (Source) Location / / Volume Laterality 07/11/2009 9:48 AM 0 9:51 SENIOR QUALITATIVE RESEARCHER AM SENIOR QUALITATIVE RESEARCHER Aleksandra Jimenez PA-C LABORATORY Performing Organization Address City/State/ZIP Code Phon e Number [facility] [address] [place] [address] [facility] TSH W/FREE T4 REFLEX (07/11/2009 9:48 AM SENIOR QUALITATIVE RESEARCHER) athologist Signature TSH 1.36 0.4 - 5.0 [place] [facility]L [facility] Specimen Anatomical Collection Method Collection Time Receive d Time (Source) Location / / Volume Laterality 07/11/2009 9:48 AM 0 9:51 SENIOR QUALITATIVE RESEARCHER AM SENIOR QUALITATIVE RESEARCHER Aleksandra Jimenez PA-C LABORATORY Performing Organization Address City/State/ZIP Code Phon e Number [facility] [address] [place] [address] [facility] A.M.A. COMPREHENSIVE MET.PANEL (07/11/2009 9:48 AM SENIOR QUALITATIVE RESEARCHER) athologist Signature Sodium 143 133 - 144 [place] [facility] mmol/L [facility] Potassium 4.4 3.4 - 5.3 [place] [facility] mmol/L [facility] Chloride 105 94 - 109 [place] [facility] mmol/L [facility] Carbon Dioxide 26 20 - 32 [place] mmol/L [facility] Anion Gap 11 6 - 17 [place] mmol/L [facility] Glucose 85 60 - 99 [place] mg/dL [facility] Urea Nitrogen 9 5 - 24 [facility] Creatinine 0.91 0.52 - [facility] 1.04 mg/dL [facility] LAB Comment: New IDMS-traceable calibration beginning 10/08/07 GFR Estimate 72 >60 mL/min/1.7m2 [place] E AGAN [facility] GFR Estimate If Black 87 >60 mL/min/1.7m2 F [facility] LACI [facility] Calcium 9.5 8.5 - 10.4 mg/dL [place] E[facility] N [facility] Bilirubin Total 0.7 0.2 - 1.3 mg/dL [facility] Albumin 4.7 3.9 - 5.1 g/dL [facility] Comment: Reference range changed on 02/08. Protein Total 7.5 6.8 - 8.8 g/dL [place] [facility] Comment: As of 07, reference range reflects plasma specimen type. Alkaline Phosphatase 46 40 - 150 U/L [facility]I CLINIC LAB ALT <6 0 - 50 U/L [facility] AST 13 0 - 45 U/L [facility] CLIN IC LAB Specimen Anatomical Collection Method Collection Time Receive d Time (Source) Location / / Volume Laterality 07/11/2009 9:48 AM 0 9:51 SENIOR QUALITATIVE RESEARCHER AM SENIOR QUALITATIVE RESEARCHER Aleksandra Jimenez PA-C LABORATORY Performing Organization Address City/State/ZIP Code Phon e Number [facility] [address] [place] [address] [facility] (ABNORMAL) A.M.A. LIPID PANEL (07/11/2009 9:48 AM SENIOR QUALITATIVE RESEARCHER) athologist Signature Cholesterol 156 0 - 200 [facility] mg/dL CLINIC LAB Comment: LDL Cholesterol [...] Triglycerides 117 0 - 150 mg/dL [facility] HDL Cholesterol 42 (L) 50 - 110 mg/dL [facility] LDL Cholesterol Calculated 91 0 - 129 mg/dL [facility] Comment: LDL Cholesterol is the primary guide to therapy: LDL-cholesterol goal in high risk patients is <100 mg/dL and in very high risk patients is <70 mg/dL. VLDL-Cholesterol 23 0 - 30 mg/dL [facility] Cholesterol/HDL Ratio 3.7 0.0 - 5.0 [facility] Specimen Anatomical Collection Method Collection Time Receive d Time (Source) Location / / Volume Laterality 07/11/2009 9:48 AM 0 9:51 SENIOR QUALITATIVE RESEARCHER AM SENIOR QUALITATIVE RESEARCHER Aleksandra Jimenez PA-C LABORATORY Performing Organization Address City/State/ZIP Code Phon e Number [facility] [address] [place] [address] [facility] documented in this encounter Visit Diagnoses Diagnosis Routine physical examination Routine general medical examination at a health care facility documented in this encounter Care Teams Hand Cutter Apprentice Relationship Specialty Start Date End Date Melvin Palacios MD PCP - General 06/22/99 09/20/10 [address] [id number] documented as of this encounter
--- OUTSIDE RECORDS SUMMARY | 2022-04-30 09:37 | XMS_ITS | Encounter Summary ---
:1975 Author Organization [place] Address [address] [place] [address]. [place] [address] Care Team Providers Name Role Phone Melvin Palacios MD Primary Care Provider Reason for Visit Reason Onset Date Comments Refill Request 06/10/2009 CLONAZEPAM Encounter Details Date Type Department Care Team Description [facility] Ref[facility] Request Clinic [place] MD Ajit (CLONAZEPAM) [address] [place] [phone] (Wo rk) Social History Tobacco Use Types [...] RISHI [facility] pharm per patient Felicia Mcintyre/GUY NOLOGY OFFICER Telephone Encounter - Nemesio Mcguire - 06/12/2009 11:40 AM CST Note she's on two benzodiazepines -I asked her to follow up within two weeks with Dr. Palacios to review her meds NOLOGY OFFICER Telephone Encounter - Ernestine Salinas - 06/12/2009 10:13 AM CST See below Last OV: 05/17/09 Reason for visit: adjustment disorder Date last filled: 05/01/09 Not pso, routed Ernestine Salinas RN NOLOGY OFFICER Telephone Encounter - Ban Monge - 06/10/2009 11:15 AM CST LAST FILL DATE: 05/02/2009 LAST QTY: 60 TIERA HERNANDEZ [facility] NOLOGY OFFICER documented in this encounter Plan of Treatment Not on filedocumented as of this encounter Visit Diagnoses Diagnosis Adjustment disorder with anxiety - Prima ry documented in this encounter Care Teams Epic Cupid Analyst Relationship Specialty Start Date End Date Melvin Palacios MD PCP - General 06/22/99 09/20/10 [address] [phone] documented as of this encounter
--- OUTSIDE RECORDS SUMMARY | 2022-04-30 09:37 | XMS_ITS | Encounter Summary ---
:1975 Author Organization [place] Address [address] [place] [address] Care Team Providers Name Role Phone Melvin Palacios MD Primary Care Provider Reason for Visit Reason Onset Date Comments Medication Request 10/23/2009 Vitamin D Encounter Details Date Type Department Care Team Description 10/23/2009 Telephone [facility] Melvin Palacios MD Medication Request Clinic [address] (Vitamin D) [address] [place] [address] [phone] Social History Tobacco Use Types Packs/Day Years [...] up with you. How does that sound? [facility] Dariana documented in this encounter Plan of Treatment Not on filedocumented as of this encounter Visit Diagnoses Diagnosis Vitamin D deficiency - Primary Unspecified vitamin D deficiency documented in this encounter Care Teams Roll Forger Relationship Specialty Start Date End Date Melvin Palacios MD PCP - General 06/22/99 09/20/10 [address] [id number] documented as of this encounter
--- OUTSIDE RECORDS SUMMARY | 2022-04-30 09:37 | XMS_ITS | Encounter Summary ---
:1975 Author Organization [place] Address [address] [place] [address] Care Team Providers Name Role Phone Melvin Palacios MD Primary Care Provider Reason for Visit Reason Comments Abdominal Pain LLQ Pain x 3 days-1week. Sha rp. Has had a Mirena since 11/2008. ? Ovarian Cyst. Encounter Details Date Type Department Care Team Description 09/20/2009 Office Visit [facility] Martin Hauser Abdominal Pain (Primary Dx); Clinic [place] Shane Garcia MD Ovarian Cyst [facility], [address] [place], [place] [address] [address] [facility] [phone] [place], [place] [address] (Wo rk) Social History [...] Body Mass Index 23.37 06/19/2009 3:40 PM DEPARTMENT EDITOR documented in this encounter Progress Notes Harshal [...] RATE, AUTO Comment: left Martin Hauser MD [facility] documented in this encounter Nursing Notes [...] place. Martin Hauser MD SPECIAL IM[facility]ING [facility] SED RATE, AUTO (09/20/2009 11:28 AM CDT) athologist Signature Sed Rate 5 0 - 20 mm/h [facility] Specimen Anatomical Collection Method Collection Time Receive d Time (Source) Location / / Volume Laterality 09/20/2009 11:28 09/20/2009 AM CDT 11:29 AM CDT Martin Hauser MD LABORATORY Performing Organization Address City/State/ZIP Code Phon e Number [address] [address] [facility] CBC WITH PLATELETS (09/20/2009 11:28 AM CDT) athologist Signature WBC 5.2 4.0 - 11.0 [place] 10e9/L [facility] RBC Count 4.54 3.8 - 5.2 [place] 10e12/L [facility] Hemoglobin 13.9 11.7 - [facility] 15.7 g/dL [facility] Hematocrit 41.2 35.0 - [facility] 47.0 % [facility] MCV 91 78 - 100 [facility] MCH 30.6 26.5 - [facility] 33.0 pg [facility] MCHC 33.7 31.5 - [facility] 36.5 g/dL [facility] RDW 12.7 10.0 - [place] 15.0 % [facility] Platelet Count 274 150 - 450 [place] 10e9/L [facility] Specimen Anatomical Collection Method Collection Time Receive d Time (Source) Location / / Volume Laterality 09/20/2009 11:28 09/20/2009 AM CDT 11:29 AM CDT Martin Hauser MD LABORATORY Performing Organization Address City/[facility]/ZIP Code Phon e Number [address] [address] [facility] (ABNORMAL) MICRO EXAM-URINE (09/20/2009 9:39 AM CDT) [facility] gist Method Time Signature WBC Urine 2-5 (A) 0 - 2 [place] /[facility] RBC Urine O - 2 0 - 2 [place] /[facility] Hyaline Casts O - 2 0 - 2 [place] /F [facility] Squamous Many (A) FEW /LPF [place] Epithelial [place] [facility] Urine CLINIC LAB Bacteria Urine Few (A) NEG /HPF [facility] Mucous Urine Present (A) NEG /LPF [facility] Specimen Anatomical Collection Method Collection Time Receive d Time (Source) Location / / Volume Laterality 09/20/2009 9:39 AM 0 9:40 CDT AM CDT Maritn Hauser MD LABORATORY Performing Organization Address [facility]/ZIP Code Phon e Number [address] [address] [facility] (ABNORMAL) UA MICRO IF POSITIVE (09/20/2009 9:39 AM CDT) [facility] Method Time Signature Color Urine Cathy [facility] Appearance Urine Clear [facility] Glucose Urine Negative NEG mg/dL [facility] Bilirubin Urine Negative NEG [facility] Ketones Urine 40 (A) NEG mg/dL [facility] Specific [place] 1.025 1.003 - [place] Urine 1.035 [facility] Blood Urine Trace (A) NEG [facility] pH Urine 5.5 5.0 - 7.0 [place] pH [facility] Protein Albumin 30 (A) NEG mg/dL [place] Urine [facility] Urobilinogen 0.2 0.2 - 1.0 [place] Urine EU/dL [facility] Nitrite Urine Negative NEG [facility] Leukocyte Trace (A) NEG [place] Esterase Urine [facility] Source Midstream [place] Urine [facility] Specimen Anatomical Collection Method Collection Time Receive d Time (Source) Location / / Volume Laterality 09/20/2009 9:39 AM 0 9:40 CDT AM CDT Martin Hauser MD LABORATORY Performing Organization Address City/[facility]/ZIP Code Phon e Number [facility] [id number] [place] [address] [phone] [facility] documented in this encounter Visit Diagnoses Diagnosis LLQ abdominal pain - Primary Abdominal pain, left lower quadrant Ovarian cyst Other and unspecified ovarian cyst documented in this encounter Care Teams Bag Sealer Relationship Specialty Start Date End Date Melvin Palacios MD PCP - General 06/22/99 09/20/10 [address] [phone] documented as of this encounter
--- OUTSIDE RECORDS SUMMARY | 2022-04-30 09:37 | XMS_ITS | Encounter Summary ---
:1975 Author Organization [place] Address [address] [place] [address] Care Team Providers Name Role Phone Melvin Palacios MD Primary Care Provider Reason for Visit Reason Onset Date Comments Refill Request 07/04/2009 CLONAZEPAM 1MG Refill Request 07/04/2009 AMBIEN Encounter Details Date Type Department Care Team Description 07/04/2009 Refill [facility] Melvin Palacios MD Refill Request Clinic [place] [address] (CLONAZEPAM 1MG); Refill [address] [facility] Request (AMBIEN[facility] [place] [address] [phone] Social History Tobacco Use Types Packs/Day Years [...] Unable to fill PSO Stacey Torres RN CTOR HOUSEKEEPING Telephone Encounter - Mary Monge - 07/04/2009 9:40 AM CST CLONAZEPAM LAST FILL DATE: 06/12/2009 LAST QTY: 30 [facility] AMBIEN LAST FILL DATE: 06/01/2009 LAST QTY: 30 [facility] CTOR HOUSEKEEPING documented in this encounter Plan of Treatment Not on filedocumented as of this encounter Visit Diagnoses Diagnosis Adjustment disorder with anxiety - Prima ry documented in this encounter Care Teams Invisible Braces Orthodontist Relationship Specialty Start Date End Date Melvin Palacios MD PCP - General 06/22/99 09/20/10 [address] [phone] documented as of this encounter
--- OUTSIDE RECORDS SUMMARY | 2022-04-30 09:37 | XMS_ITS | Encounter Summary ---
:1975 Author Organization [place] Address [address] [place] [address] Care Team Providers Name Role Phone Melvin Palacios MD Primary Care Provider Encounter Details Date Type Department Care Team Description 09/20/2009 Results Only [facility] Harris James MD Hospital Results EMERGENCY PHYSI [facility] [address] [place], [place] [address] (Wo rk) Social History [...] on filedocumented in this encounter Care Teams Tomography Technologist Relationship Specialty Start Date End Date Melvin Palacios MD PCP - General 06/22/99 09/20/10 [address] [phone] documented as of this encounter
--- OUTSIDE RECORDS SUMMARY | 2022-04-30 09:38 | XMS_ITS | Encounter Summary ---
:1975 Author Organization [place] Address [address] [place] [address] Care Team Providers Name Role Phone Melvin Palacios MD Primary Care Provider Reason for Visit Reason Onset Date Comments Refill Request 12/26/2008 ALPRAZOLPAM Encounter Details Date Type Department Care Team Description 12/26/2008 Refill [facility] Melvin Palacios MD Refill Request Clinic [place] [address] (ALPRAZOLPAM) [address] [place], [place] [address] [address] [phone] Social History Tobacco Use Types Packs/Day Years Used Date Smoking Tobacco: Former Alcohol Use Standard Drinks/Week Comments Yes 0 (1 standard drink = 0.6 oz pure alcoho l) social Sex Assigned at Date Recorded Not on file documented as of this encounter Miscellaneous Notes Telephone Encounter - Deidre Alas - 12/26/2008 2:24 PM CDT LAST FILL DATE: 11/04/08 QTY: 30 Camilo Hammonds [facility] documented in this encounter Plan of Treatment Not on filedocumented as of this encounter Visit Diagnoses Diagnosis Routine gynecological examination documented in this encounter Care Teams Certified Social Workers In Health Care Relationship Specialty Start Date End Date Melvin Palacios MD PCP - General 06/22/99 09/20/10 [address] [phone] documented as of this encounter
--- OUTSIDE RECORDS SUMMARY | 2022-04-30 09:38 | XMS_ITS | Encounter Summary ---
:1975 Author Organization [place] Address [address] [place] [address] Care Team Providers Name Role Phone Melvin Palacios MD Primary Care Provider Reason for Visit Reason Comments Forms return to work papers Encounter Details Date Type Department Care Team Description 04/20/2009 Office Visit [facility] Melvin Palacios MD Adjustment Disorder Clinic [place] [address] with Depressed Mood [address] [facility] (Primary Dx) [place], [place] [address] [id number] Social History Tobacco Use Types Packs/Day Years [...] Comments Blood Pressure 114/70 04/20/2009 3:16 PM RESEARCH & ANALYTICS MANAGER Pulse 66 04/20/2009 3:16 PM RESEARCH & ANALYTICS MANAGER Temperature - - Respiratory Rate - - Oxygen Saturation - - Inhaled Oxygen Concentration - - Weight 74.4 kg (164 lb) 04/20/2009 3:16 PM RESEARCH & ANALYTICS MANAGER Height - - Body Mass Index 26.47 [...] maintains her weekly visits with her therapist. ARCH & ANALYTICS MANAGER documented in this encounter Nursing Notes 04/20/2009 3:00 PM CST >> [facility] Apr 20, 2009 3:18 PM Patient [...] Primary documented in this encounter Care Teams Podopediatrician Relationship Specialty Start Date End Date Melvin Palacios MD PCP - General 06/22/99 09/20/10 [address] [phone] documented as of this encounter
--- OUTSIDE RECORDS SUMMARY | 2022-04-30 09:38 | XMS_ITS | Encounter Summary ---
:1975 Author Organization [place] Address [address] [place] [address] Care Team Providers Name Role Phone Melvin Palacios MD Primary Care Provider Reason for Visit Reason Onset Date Comments Refill Request 04/20/2009 ALPRAZOLAM Encounter Details Date Type Department Care Team Description 04/20/2009 Refill [facility] Melvin Palacios MD Refill Request Clinic [place] [address] (ALPRAZOLAM) [address] [place], [place] [address] [address] [phone] Social History Tobacco Use Types Packs/Day Years [...] FILL DATE: 02/14/09 QTY: 40 Camilo Hammonds [facility] ER MECHANIC documented in this encounter Plan of Treatment Not on filedocumented as of this encounter Visit Diagnoses Diagnosis Routine gynecological examination documented in this encounter Care Teams Carbonation Equipment Tender Relationship Specialty Start Date End Date Melvin Palacios MD PCP - General 06/22/99 09/20/10 [address] [phone] documented as of this encounter
--- OUTSIDE RECORDS SUMMARY | 2022-04-30 09:38 | XMS_ITS | Encounter Summary ---
:1975 Author Organization [place] Address [address] [place] [address] Care Team Providers Name Role Phone Melvin Palacios MD Primary Care Provider Reason for Visit Reason Onset Date Comments Refill Request 06/01/2009 ZOLPIDEM 10MG Encounter Details Date Type Department Care Team Description 06/01/2009 Refill [facility] Melvin Palacios MD Refill Request (ZOLPIDEM Clinic [place] [address] 10MG) [address] [place], [place] [address] [phone] Social History Tobacco Use Types Packs/Day Years Used Date Smoking Tobacco: Every Day Comments: 1-2 every other day Alcohol Use Standard Drinks/Week Comments Yes 0 (1 standard drink = 0.6 oz pure alcoho l) social Sex Assigned at Date Recorded Not on file documented as of this encounter Miscellaneous Notes Telephone Encounter - Melissa Pickett - 06/01/2009 9:55 AM CST Last office visit: [id number] Reason for visit: adj. disorder Date last filled: see below NOT A PSO MED ROUTED TO SIEVE MAKER-SINDHU Pickett RN STER CAPPER Telephone Encounter - Kristine Bermudez - 06/01/2009 9:50 AM CST Last filled 05/02/09 Qty 30 Kristine [facility] RX PLEASE WALK OVER TO THE PHARMACY STER CAPPER documented in this encounter Plan of Treatment Not on filedocumented as of this encounter Visit Diagnoses Diagnosis Adjustment disorder with anxiety - Prima ry documented in this encounter Care Teams Middle School Librarian Relationship Specialty Start Date End Date Melvin Palacios MD PCP - General 06/22/99 09/20/10 [address] [phone] documented as of this encounter
--- OUTSIDE RECORDS SUMMARY | 2022-04-30 09:38 | XMS_ITS | Encounter Summary ---
:1975 Author Organization [place] Address [address] [place] [address] Care Team Providers Name Role Phone Melvin Palacios MD Primary Care Provider Reason for Visit Reason Onset Date Comments Refill Request 05/17/2009 ALPRAZOLAM Encounter Details Date Type Department Care Team Description 05/17/2009 Refill [facility] Melvin Palacios MD Refill Request Clinic [place] [address] (ALPRAZOLAM) [address] [place] [address] [phone] Social History Tobacco Use Types Packs/Day Years [...] Signed rx hand faxed Melissa Pickett RN OW REPRESENTATIVE Telephone Encounter - Ernestine Salinas - 05/17/2009 4:33 PM CST Last OV: 05/17/09 Reason for visit: adjustment disorder Date last filled: 04/20/09 Not pso, routed, need to walk over Ernestine Salinas RN OW REPRESENTATIVE Telephone Encounter - Deidre Alas - 05/17/2009 3:49 PM CST LAST FILL DATE: 04/21/09 QTY: 40 Mechelle Alas, [facility] [place]PRESENTATIVE documented in this encounter Plan of Treatment Not on filedocumented as of this encounter Visit Diagnoses Diagnosis Routine gynecological examination documented in this encounter Care Teams Chimney Builder Brick Relationship Specialty Start Date End Date Melvin Palacios MD PCP - General 06/22/99 09/20/10 [address] [phone] documented as of this encounter
--- OUTSIDE RECORDS SUMMARY | 2022-04-30 09:38 | XMS_ITS | Encounter Summary ---
:1975 Author Organization [place] Address [address] [place] [address] Care Team Providers Name Role Phone Melvin Palacios MD Primary Care Provider Reason for Visit Reason Onset Date Comments Refill Request 05/01/2009 JUANAONOMALCOLM Encounter Details Date Type Department Care Team Description 05/01/2009 Refill [facility] Melvin Palacios MD Refill Request Clinic [address] ([place]) [address] [place] [address] [place] [address] [phone] Social History Tobacco Use Types Packs/Day Years [...] Also needs zolpidem refilled Ernestine Salinas RN ROOM MESSENGER Telephone Encounter - Ernestine Salinas - 05/01/2009 2:05 PM CST See below Last OV: 04/20/09 Reason for visit: adjustment disorder Not pso, routed, need to walk rx over, Suzanne gone, routed to Ernestine Salinas RN ROOM MESSENGER Telephone Encounter - Deidre Alas - 05/01/2009 1:58 PM CST LAST FILL DATE: 04/03/09 QTY: 60 Mechelle Alas [facility] ROOM MESSENGER documented in this encounter Plan of Treatment Not on filedocumented as of this encounter Visit Diagnoses Diagnosis Adjustment disorder with anxiety - Prima ry documented in this encounter Care Teams Shop Foreman Relationship Specialty Start Date End Date Melvin Palacios MD PCP - General 06/22/99 09/20/10 [address] [address] documented as of this encounter
--- OUTSIDE RECORDS SUMMARY | 2022-04-30 09:38 | XMS_ITS | Encounter Summary ---
:1975 Author Organization [place] Address [address] [place] [address] Care Team Providers Name Role Phone Melvin Palacios MD Primary Care Provider Reason for Visit Reason Comments Forms return to work RECHECK meds Encounter Details Date Type Department Care Team Description 04/12/[address] [facility] Melvin Palacios MD Adjustment Disorder Clinic [place] [address] with Depressed Mood [address] [facility] (Primary Dx) [place] [id number] Social History Tobacco Use Types Packs/Day Years [...] Comments Blood Pressure 95/67 04/12/2009 9:01 AM DYE PENETRANT TESTING TECHNICIAN Pulse 89 04/12/2009 9:01 AM DYE PENETRANT TESTING TECHNICIAN Temperature - - Respiratory Rate - - Oxygen Saturation - - Inhaled Oxygen Concentration - - Weight 74.4 kg (164 lb) 04/12/2009 9:01 AM DYE PENETRANT TESTING TECHNICIAN Height - - Body Mass Index 26.47 [...] Continue curent med regimen. Her FML:A ends [id number] and I would support her return no earlier than tihat date PENETRANT TESTING TECHNICIAN documented in this encounter Nursing Notes 04/12/2009 [...] Primary documented in this encounter Care Teams Director Of Teacher Education Relationship Specialty Start Date End Date Melvin Palacios MD PCP - General 06/22/99 09/20/10 [address] [address] documented as of this encounter
--- OUTSIDE RECORDS SUMMARY | 2022-04-30 09:38 | XMS_ITS | Encounter Summary ---
:1975 Author Organization [place] Address [address] [place] [address] Care Team Providers Name Role Phone Melvin Palacios MD Primary Care Provider Reason for Visit Reason Comments Forms FMLA Forms Encounter Details Date Type Department Care Team Description 03/17/2009 Office Visit [facility] Melvin Palacios MD DEPRESSIVE DISORDER NEC; Clinic [place] [address] Adjustment Disorder with Anx iety [address] [place], [place] [address] [phone] Social History Tobacco Use Types Packs/Day Years [...] work.She has been wisely advised by her Crane Ladle Person to consider FMLA before any adverse events [...] anxiety documented in this encounter Care Teams Kiln Feeder Relationship Specialty Start Date End Date Melvin Palacios MD PCP - General 06/22/99 09/20/10 [address] [address] documented as of this encounter
--- OUTSIDE RECORDS SUMMARY | 2022-04-30 09:38 | XMS_ITS | Encounter Summary ---
:1975 Author Organization [place] Address [address] [place] [address]. [place] [address] Care Team Providers Name Role Phone Melvin Palacios MD Primary Care Provider Esmer Roland MD Primary Care Provider [phone] Encounter Details Date Type Department Care Team Description 03/27/2009 Historic Metal Precision Machine Assembler [facility] Hel[facility]io, Mental Health & Katey Pineda LP, Addiction [facility] [address] [place] [address] [place] [address] [phone] (Wo rk) Social History Tobacco Use Types Packs/Day Years Used Date Smoking Tobacco: Every Day Comments: 1-2 every other day Alcohol Use Standard Drinks/Week Comments Yes 0 (1 standard drink = 0.6 oz pure alcoho l) social Sex Assigned at Date Recorded Not on file documented as of this encounter Progress Notes Katey Patricia LP, [facility] - 05/14/2011 5:58 AM OPTICS MANUFACTURING TECHNICIAN FINAL INITIAL ASSESSMENT IDENTIFYING INFORMATION: Dariana is [...] overwhelming. 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 She states her meter and regulator shop supervisor recently pointed out to her that Dariana perhaps was coming across as possibly irritable and impatient with the patients at the clinic. By the suggestion of her meter and regulator shop supervisor and in conjunction with her family practice doctor, Dariana decided to take a medical leave of absence and she is due to return from her medical leave on 04/24/2009. She was referred to therapy via her family physician, Dr. Melvin Palacios of [facility]. She has been apparently agreeable and cooperative in following recommendations both of her meter and regulator shop supervisor and her physician. She wants to pursue counseling as well as she feels she is under increased stress between the breakup of her marriage, soon leading to final divorce as well as job stress and ongoing parenting responsibilities. Her meter and regulator shop supervisor and her physician have both been supportive and her meter and regulator shop supervisor has been encouraging her to take care of myself. Her meter and regulator shop supervisor along with her printing sales representative then reviewed with Dariana, her options. [facility] then saw Dr. 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 She admits to extreme anxiety and panic attacks and is being treated by Dr. Palacios with medication as well. Therefore, she pursues counseling, in particular to reduce her anxiety and depression symptoms. She admits she has had very little counseling in the past and is not quite sure how to talk about issues in her counseling. SOCIAL HISTORY: Dariana grew up in [place], [place], and is the 3rd child of 4. She grew up in an intact Caodaism family household. Dariana feels that her upbringing was normal. 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 She admits to having extreme performance anxiety during her education, particularly test anxiety. She currently attends mormonism and her Evangelical continues to be central to her life. [...] she did attend some college classes at [employer], but does prefer learning which is [...] is Dr. Melvin Palacios and her Physician Hazard Waste Handler is Tobi Gonzalez. She feels she has a good working relationship with her PCP and the Physician Hazard Waste Handler at [facility]. The phone number at [facility] is [phone]. Dariana feels that in general, her health [...] ago in 03/2008, and was admitted to [facility] to have the kidney stone removed. On [...] She frequently becomes tearful and she has early interventionist insomnia. She admits to ongoing fears and [...] physician, Dr. Palacios and Tobi Gonzalez, physician embroidery assistant. Individual sessions 2-3x/month for 3-6 months would be anticipated There are no issues which will not be addressed during this episode of care. Dariana may receive a copy of her chart upon written request. Electronically signed on 05/15/2009 18:57 by KAETY PATRICIA MA, MEGHAN, WINDING INSPECTOR MT: FRANCO Name: DARIANA VALDEZ MRN: [id number] Account: [id number] : 1975 Service Date: 03/27/2009 Document: [id number] CS MANUFACTURING TECHNICIAN documented in this encounter Plan of Treatment Not on filedocumented as of this encounter Visit Diagnoses Not on filedocumented in this encounter Care Teams Loan Manager Relationship Specialty Start Date End Date Melvin Palacios MD PCP - General 06/22/99 09/20/10 [address] [address] Esmer Roland MD PCP - General Family Practice 09/21/10 01/29/17 documented as of this encounter
--- OUTSIDE RECORDS SUMMARY | 2022-04-30 09:38 | XMS_ITS | Encounter Summary ---
:1975 Author Organization [place] Address [address] [place] [address] Care Team Providers Name Role Phone Melvin Palacios MD Primary Care Provider Encounter Details Date Type Department Care Team Description 04/26/2009 Medical Correspondence [facility] Melvin Palacios , Report of Clinic Carmen BANERJEE [address] [place] [address] [phone] Social History Tobacco Use Types Packs/Day Years [...] on filedocumented in this encounter Care Teams Setter Off Relationship Specialty Start Date End Date Melvin Palacios MD PCP - General 06/22/99 09/20/[address] [place], [place] [address]SONJA Seaman [address] documented as of this encounter
--- OUTSIDE RECORDS SUMMARY | 2022-04-30 09:38 | XMS_ITS | Encounter Summary ---
:1975 Author Organization [place] Address [address] [place] [address] Care Team Providers Name Role Phone Melvin Palacios MD Primary Care Provider Reason for Visit Reason Onset Date Comments Refill Request 05/01/2009 SUSAN Encounter Details Date Type Department Care Team Description 05/01/2009 Refill [facility] Melvin Palacios MD Refill Request (AMBIEN) Clinic [address] [place] [address] [phone] Social History Tobacco Use Types Packs/Day Years [...] for Esther, encounter closed Ernestine Salinas RN AD GRINDER Telephone Encounter - Deidre Alas - 05/01/2009 2:09 PM CST LAST FILL DATE: 03/22/09 QTY: 30 Camilo Hammonds [facility] AD GRINDER documented in this encounter Plan of Treatment Not on filedocumented as of this encounter Visit Diagnoses Diagnosis Adjustment disorder with anxiety documented in this encounter Care Teams Duck Bill Operator Relationship Specialty Start Date End Date Melvin Palacios MD PCP - General 06/22/99 09/20/10 [address] [address] documented as of this encounter
--- OUTSIDE RECORDS SUMMARY | 2022-04-30 09:38 | XMS_ITS | Encounter Summary ---
:1975 Author Organization [place] Address [address] [place] [address] Care Team Providers Name Role Phone Melvin Palacios MD Primary Care Provider Reason for Visit Reason Comments Installment Account Checker Exam would like to discuss b/c. Encounter Details Date Type Department Care Team Description 11/07/2008 Office Visit [facility] Cayetano Jung, Routine Gynecological Women's Clinic MD Examination (Primary Dx) [place] [address] [address] [facility] [address] [facility] [address] [place] [address] [phone] Social History Tobacco Use Types Packs/Day Years [...] 07, 2008 3:46 PM .Patient presents with: Installment Account Checker Exam - would like to discuss b/c. [...] Component Value Ref Test Analysis Performed At [facility] Range Method Time Signature PAP NIL COPATH Copath Report COPATH Patient Name: DARIANA VALDEZ MR#: [id number] Specimen #: [id number] Collected: 11/07/2008 Received: 11/08/2008 Reported: 11/09/2008 09:45 [...] LAVON Tong (ASCP) Processed and screened at [facility] CLINICAL HISTORY: LMP: 10/24/08 TESTING LAB LOCATION: [facility] [address] [place], [place] ??[address] COLLECTION SITE: Client: ??[facility] Location: [place] Specimen (Source) Anatomical Collection Method Collection Time Re ceived Time Location / / Volume Laterality 11/07/2008 11/08/2008 9:55 AM CDT Cayetano Jung MD LABORATORY Performing Organization Address City/State/ZIP Code Phon e Number COPATH documented in this encounter Visit Diagnoses Diagnosis Routine gynecological examination - Prim harpal documented in this encounter Care Teams Assembly Loader Relationship Specialty Start Date End Date Melvin Palacios MD PCP - General 06/22/99 09/20/10 [address] [place] [address] documented as of this encounter
--- OUTSIDE RECORDS SUMMARY | 2022-04-30 09:38 | XMS_ITS | Encounter Summary ---
:1975 Author Organization [place] Address [address] [facility] [address] Care Team Providers Name Role Phone Melvin Palacios MD Primary Care Provider Reason for Visit Reason Comments Recheck Medication FU on depression meds Encounter Details Date Type Department Care Team Description 12/15/2008 Office Visit [facility] [place] ANXIETY STATE NOS; Clinic [place] ZENON Maddox Insomnia; [address] [facility] [id number] [place] [address] Major [place], [place] [address] [phone] Social History Tobacco Use Types Packs/Day Years [...] BP completed using cuff size large Melissa Ricks/JUMP IRON MACHINE PRESSER documented in this encounter Plan of Treatment Not on filedocumented as of this encounter Visit Diagnoses Diagnosis ANXIETY STATE NOS Anxiety state, unspecified Insomnia Insomnia, unspecified Major depressive disorder, single episod e, severe, without mention of psychotic behavior documented in this encounter Care Teams Butadiene Converter Helper Relationship Specialty Start Date End Date Melvin Palacios MD PCP - General 06/22/99 09/20/10 [address] [address] documented as of this encounter
--- OUTSIDE RECORDS SUMMARY | 2022-04-30 09:38 | XMS_ITS | Encounter Summary ---
:1975 Author Organization [place] Address [address] [place] [address] Care Team Providers Name Role Phone Melvin Palacios MD Primary Care Provider Reason for Visit Reason Comments IUD Encounter Details Date Type Department Care Team Description 11/18/2008 Office Visit [facility] Harris Jung Inserti on of IUD Women's Clinic (Primary Dx) [place] [address] [place] [facility] [address] [place] [address] [place] [address] [phone] Social History Tobacco Use Types Packs/Day Years [...] 2008 4:43 PM Mirena IUD insertion, lot# [id number], exp 03/2011 >> MAGDA SANDOVAL FriNov 18, [...] device documented in this encounter Care Teams Advanced Practice Provider Relationship Specialty Start Date End Date Melvin Palacios MD PCP - General 06/22/99 09/20/10 [address] [address] documented as of this encounter
--- OUTSIDE RECORDS SUMMARY | 2022-04-30 09:38 | XMS_ITS | Encounter Summary ---
:1975 Author Organization [place] Address [address] [place] [address] Care Team Providers Name Role Phone Melvin Palacios MD Primary Care Provider Reason for Visit Reason Onset Date Comments Refill Request 12/13/2008 [id number] Encounter Details Date Type Department Care Team Description 12/12/2008 MyC Refill [facility] [place] [facility] ZENON Maddox (Esidoh31ls/PSOaab) [address] [place] [address] [phone] Social History Tobacco Use Types Packs/Day Years [...] - 12/13/2008 9:37 AM CDT Message from [facility] Ordering: Dariana Osman would like a refill of the following medications: CELEXA 40 MG OR TABS [Tobi Barber PA-C] Preferred pharmacy: [facility] Comment: documented in this encounter Plan of Treatment Not on filedocumented as of this encounter Visit Diagnoses Diagnosis DEPRESSIVE DISORDER NEC Depressive disorder, not elsewhere class ified ANXIETY STATE NOS Anxiety state, unspecified documented in this encounter Care Teams Teletypesetter Operator Relationship Specialty Start Date End Date Melvin Palacios MD PCP - General 06/22/99 09/20/10 [address] [address] documented as of this encounter
--- OUTSIDE RECORDS SUMMARY | 2022-04-30 09:38 | XMS_ITS | Encounter Summary ---
:1975 Author Organization [place] Address [address] [place] [address] Care Team Providers Name Role Phone Melvin Palacios MD Primary Care Provider Reason for Visit Reason Onset Date Comments Refill Request 02/14/2009 ALPRAZOLAM Encounter Details Date Type Department Care Team Description 02/14/2009 Refill [facility] Melvin Palacios MD Refill Request Clinic [place] [address] (ALPRAZOLAM) [address] [place] [address] [phone] Social History Tobacco Use Types Packs/Day Years [...] FILL DATE: 12/27/08 QTY: 40 Camilo Hammonds [facility] documented in this encounter Plan of Treatment Not on filedocumented as of this encounter Visit Diagnoses Diagnosis Routine gynecological examination - Prim harpal documented in this encounter Care Teams Asbestos Worker Helper Relationship Specialty Start Date End Date Melvin Palacios MD PCP - General 06/22/99 09/20/10 [address] [address] documented as of this encounter
--- OUTSIDE RECORDS SUMMARY | 2022-04-30 09:38 | XMS_ITS | Encounter Summary ---
:1975 Author Organization [place] Address [address] [place] [address] Care Team Providers Name Role Phone Melvin Palacios MD Primary Care Provider Reason for Visit Reason Comments Medication Request wondering if she can have an increase in med celexa and discuss migraines Encounter Details Date Type Department Care Team Description 05/17/2009 Office Visit [facility] Melvin Palacios MD Adjustment Disorder Clinic [place] [address] with Mixed Anxiety and [address] [facility] Depressed Mood [place], [place] (Primary Dx) [address] [phone] Social History Tobacco Use Types Packs/Day Years [...] Comments Blood Pressure 114/80 05/17/2009 3:08 PM AIR GUN OPERATOR Pulse - - Temperature - - Respiratory Rate - - Oxygen Saturation - - Inhaled Oxygen Concentration - - Weight 72.6 kg (160 lb) 05/17/2009 3:08 PM AIR GUN OPERATOR Height 167.6 cm (5' 6) 05/17/2009 3:08 PM AIR GUN OPERATOR Body Mass Index 25.82 05/17/2009 3:08 PM AIR GUN OPERATOR documented in this encounter Progress Notes [...] She is to contiue with her psychotherapy GUN OPERATOR documented in this encounter Nursing Notes [...] Primary documented in this encounter Care Teams Profiler Relationship Specialty Start Date End Date Melvin Palacios MD PCP - General 06/22/99 09/20/10 [address] [address] documented as of this encounter
--- OUTSIDE RECORDS SUMMARY | 2022-04-30 09:38 | XMS_ITS | Encounter Summary ---
:1975 Author Organization [place] Address [address] [place] [address] Care Team Providers Name Role Phone Melvin Palacios MD Primary Care Provider Encounter Details Date Type Department Care Team Description 03/13/2009 Orders Only [facility] Clinic Dys uria; [place] [facility] Other Nonspecific Finding on Examination of Urine [facility] [address] [place] [address] Social History Tobacco Use [...] Component Value Ref Test Analysis Performed At [facility] Range Method Time Signature WBC Urine 10-25 0 - 2 [place] Clumps of WBC's seen (A) /HPF [facility] RBC Urine 50-100 (A) 0 - 2 [place] /HPF [facility] Squamous EPI Few FEW /LPF [facility] Bacteria Many (A) NEG /HPF [place] Urine [facility] Comment Urine was tested [facility] because <10 ml CLINIC LAB was received. Specimen Anatomical Collection Method Collection Time Receive d Time (Source) Location / / Volume Laterality 03/13/2009 9:15 AM 9 9:17 CDT AM CDT Aleksandra Jimenez PA-C LABORATORY Performing Organization Address City/State/ZIP Code Phon e Number [facility] [place] [address] [facility] URINE CULTURE (03/13/2009 9:15 AM CDT) Component Value Ref Test Analysis Performed At Patholo gist Range Method Time Signature Specimen Midstream Urine [place] Description [facility] Culture Micro >100,000 [place] colonies/mL [facility] coli Report status FINAL [place] 03/14/2009 [facility] Specimen Anatomical [...] Organization Address City/State/ZIP Code Phon e Number [facility] [address] [place] [address] [phone] HOSPITAL [facility] (ABNORMAL) UA MICRO IF POSITIVE (03/13/2009 9:15 AM CDT) [facility] Method Time Signature Color Urine Yellow [facility] Appearance Urine Slightly [place] Cloudy [facility] Glucose Urine Negative NEG mg/dL [facility] Bilirubin Urine Negative NEG [facility] Ketones Urine Trace (A) NEG mg/dL [facility] Specific [place] >1.030 1.003 - [place] Urine 1.035 [facility] Blood Urine Large (A) NEG [facility] pH Urine 5.0 5.0 - 7.0 [place] pH [facility] Protein Albumin 30 (A) NEG mg/dL [facility] Urobilinogen 0.2 0.2 - 1.0 [place] Urine EU/dL [facility] Nitrite Urine Negative NEG [facility] Leukocyte Moderate (A) NEG [place] Esterase Urine [facility] Source Midstream [facility] Specimen Anatomical Collection Method Collection Time Receive d Time (Source) Location / / Volume Laterality 03/13/2009 9:15 AM 9:17 CDT AM CDT Authorizing Provider Result Ester Jimenez PA-C LABORATORY Performing Organization Address City/[facility]/ZIP Code Phon e Number [facility] [place], [place] [phone] [facility] documented in this encounter Visit Diagnoses Diagnosis Dysuria Other nonspecific finding on examination of urine documented in this encounter Care Teams Plastic Surgeon Relationship Specialty Start Date End Date Melvin Palacios MD PCP - General 06/22/99 09/20/10 [address] [address] documented as of this encounter
--- OUTSIDE RECORDS SUMMARY | 2022-04-30 09:38 | XMS_ITS | Encounter Summary ---
:1975 Author Organization [place] Address [address] [place] [address] Care Team Providers Name Role Phone Melvin Palacios MD Primary Care Provider Reason for Visit Reason Onset Date Comments Patient/info Update 04/03/2009 with counseling Ctr Encounter Details Date Type Department Care Team Description 04/03/2009 Telephone [facility] [place] Patient/ info Update Clinic [place] ZENON Maddox (with counseling Ctr) [address] [place] [phone] Social History Tobacco Use Types Packs/Day Years [...] she is with Pt's too) Call at [phone] Routed to CL who saw her for the last 3 OV's. Rashida Bishop RN Telephone Encounter - Rashida Bishop - 04/03/2009 12:17 PM CDT Staff Message copied by RASHIDA BISHOP on FriApr 03, 2009 12:17 PM ------ Message from: ASHLEIGH FORBES Created: FriApr 03, 2009 11:16 AM Regarding: [facility] [place] [facility] and Last name of caller: Polly Leija Relationship to patient: [employer] -Edinaceason for call: wants to speak with provider Is it in regards to a medication: would not say Med Name: n/a Pharmacy name and location: n/a Provider they see: Tobi Phone number they can be reached at: [phone] Ok to leave a message: please call Polly Guardado documented in this encounter Plan of Treatment Not on filedocumented as of this encounter Visit Diagnoses Not on filedocumented in this encounter Care Teams Product Marketing Analyst Relationship Specialty Start Date End Date Melvin Palacios MD PCP - General 06/22/99 09/20/10 [address] [id number] documented as of this encounter
--- OUTSIDE RECORDS SUMMARY | 2022-04-30 09:38 | XMS_ITS | Encounter Summary ---
:1975 Author Organization [place] Address [address] [place] [address]. [place] [address] Care Team Providers Name Role Phone Melvin Palacios MD Primary Care Provider Reason for Visit Reason Onset Date Comments Refill Request 03/14/2009 Encounter Details Date Type Department Care Team Description 03/14/2009 [place] [facility] [place] efadrian Request [place] ZENON Maddox [address] [place] [phone] Social History Tobacco Use Types Packs/Day Years [...] OR TABS [[place] Barber PA-C] Preferred pharmacy: [facility] Comment: Last ov 02/27/09 for adj [...] documented in this encounter Care Teams Manager Creative Services Relationship Specialty Start Date End Date Melvin Palacios MD PCP - General 06/22/99 09/20/10 [address] [id number] documented as of this encounter
--- OUTSIDE RECORDS SUMMARY | 2022-04-30 09:38 | XMS_ITS | Encounter Summary ---
:1975 Author Organization [place] Address [address] [facility] [place] [address] Care Team Providers Name Role Phone Melvin Palacios MD Primary Care Provider Reason for Visit Reason Comments Medication Problem with her ambien- she takes i t at 10 30 or 11 pm and she is up by 4 am. Her panic attacks have d ecreased- however she is not working anymore. Encounter Details Date Type Department Care Team Description 03/22/2009 Office Visit [facility] Melvin Palacios MD Adjustment Disorder Clinic [place] [address] [place] with Anxiety (Primary [address] [facility] [place]) [place] [address] [phone] Social History Tobacco Use Types Packs/Day Years [...] ry documented in this encounter Care Teams Resident Advisor Relationship Specialty Start Date End Date Melvin Palacios MD PCP - General 06/22/99 09/20/10 [address] [id number] documented as of this encounter
--- OUTSIDE RECORDS SUMMARY | 2022-04-30 09:38 | XMS_ITS | Encounter Summary ---
:1975 Author Organization [place] Address [address] [place] [address] Care Team Providers Name Role Phone Melvin Palacios MD Primary Care Provider Reason for Referral - Closed Specialty Diagnoses / Procedures Referred By Contact Refer red To Contact Diagnoses Adjustment disorder with anxiety Melvin Palacios MD [address] [place] [address] Referral ID Status Reason Start Date Expiration Date Visits Requ ested Visits Authorized [id number] Closed 02/27/2009 06/08/2011 1 1 Reason for Visit Reason Comments Anxiety Encounter Details Date Type Department Care Team Description 02/27/2009 Office Visit [facility] Melvin Palacios MD Adjustment Disorder Clinic [place] [address] [place] with Anxiety (Primary [address] [place] [address] Dx) [place], [place] [address] [phone] Social History Tobacco Use Types Packs/Day Years [...] ry documented in this encounter Care Teams Business Department Chair Relationship Specialty Start Date End Date Melvin Palacios MD PCP - General 06/22/99 09/20/10 [address] [id number] documented as of this encounter
--- OUTSIDE RECORDS SUMMARY | 2022-04-30 09:38 | XMS_ITS | Encounter Summary ---
:1975 Author Organization [place] Address [address] [place] [address] Care Team Providers Name Role Phone Melvin Palacios MD Primary Care Provider Encounter Details Date Type Department Care Team Description 12/29/[address] [facility] Barbara Wrist Pain (Primary Dx) [facility] [place] PA-C [id number] [place] [address] [address] [place], [place] [phone] Social History Tobacco Use Types Packs/Day [...] forearm documented in this encounter Care Teams Biostatistics Professor Relationship Specialty Start Date End Date Melvin Palacios MD PCP - General 06/22/99 09/20/10 [address] [id number] documented as of this encounter
--- OUTSIDE RECORDS SUMMARY | 2022-04-30 09:38 | XMS_ITS | Encounter Summary ---
:1975 Author Organization [place] Address [address] [place] [address] Care Team Providers Name Role Phone Melvin Palacios MD Primary Care Provider Encounter Details Date Type Department Care Team Description 03/13/2009 Orders Only [facility] Barbara, Dysuria (P rimary Dx); Clinic [place] UTI (Urinary Tract Infection) [facility] [address] [place], [place] [phone] Social History Tobacco Use Types Packs/Day Years [...] ied documented in this encounter Care Teams Lock Technician Relationship Specialty Start Date End Date Melvin Palacios MD PCP - General 06/22/99 09/20/10 [address] [id number] documented as of this encounter
--- OUTSIDE RECORDS SUMMARY | 2022-04-30 09:39 | XMS_ITS | Encounter Summary ---
:1975 Author Organization [place] Address [address] [facility] [place] [address] Care Team Providers Name Role Phone Melvin Palacios MD Primary Care Provider Encounter Details Date Type Department Care Team Description 04/08/2008 Operative Report [facility] William Black, (Controller Operations And Hr Manager) [facility] Results [facility] [address] [id number] [place] SWIFT [id number] (Wo rk) Social History Tobacco Use Types Packs/Day Years Used Date Smoking Tobacco: Former Alcohol Use Standard Drinks/Week Comments Yes 0 (1 standard drink = 0.6 oz pure alcoho l) social Sex Assigned at Date Recorded Not on file documented as of this encounter Progress Notes William Black - 04/23/2008 8:20 AM ELECTION CLERK FINAL PREOPERATIVE DIAGNOSIS: Left ureteral stone. POSTOPERATIVE [...] then the retrograde performed and a 6 Polish x 24 cm double-Jureteral stent was passed over the remaining guidewire and verified to be in position by fluoroscopyand direct vision. The bladder was emptied and the procedure was complete. Electronically signed on 04/23/2008 08:20 by WILLIAM BLACK MD MT: [email or web address] Name: DARIANA VALDEZ Account: [id number] : 1975 Procedure Date: 04/08/2008 Document: [id number] TION CLERK documented in this encounter Plan of Treatment Not on filedocumented as of this encounter Visit Diagnoses Not on filedocumented in this encounter Care Teams Pool Technician Relationship Specialty Start Date End Date Melvin Palacios MD PCP - General 06/22/99 09/20/10 [address] [id number] documented as of this encounter
--- OUTSIDE RECORDS SUMMARY | 2022-04-30 09:39 | XMS_ITS | Encounter Summary ---
:1975 Author Organization [place] Address [address] [place] [address] Care Team Providers Name Role Phone Melvin Palacios MD Primary Care Provider Encounter Details Date Type Department Care Team Description 04/06/2008 Results [facility] [place] Results Emergency Physic ians PA [address] [place], [place] [address] (Wo rk) Social History [...] on filedocumented in this encounter Care Teams Operating Room Scheduler Relationship Specialty Start Date End Date Melvin Palacios MD PCP - General 06/22/99 09/20/10 [address] [address] documented as of this encounter
--- OUTSIDE RECORDS SUMMARY | 2022-04-30 09:39 | XMS_ITS | Encounter Summary ---
:1975 Author Organization [place] Address [address] [place] [address] Care Team Providers Name Role Phone Melvin Palacios MD Primary Care Provider Encounter Details Date Type Department Care Team Description 04/06/2008 Historic Results INTERFACED REPORT Vijaya Bhat MD [facility] PA [address] [place], [place] [address] (Wo rk) Social History [...] Canceled, Test credited 60 - 99 mg/dL [place] SYS Comment: Unsatisfactory specimen - hemolyzed BRODIE [...] Canceled, Test credited 6 - 17 mmol/L [place] SYS Comment: Unsatisfactory specimen - hemolyzed BRODIE [...] Ketones Urine Negative NEG MISYS mg/dL Specific [place] 1.014 1.003 - MISYS Urine 1.035 Blood [...] MISYS Urine culture (04/06/2008 7:00 PM CDT) [facility] Method Time Signature Specimen Unspecified MISYS [...] on filedocumented in this encounter Care Teams Card Doffer Relationship Specialty Start Date End Date Melvin Palacios MD PCP - General 06/22/99 09/20/10 [address] [id number] documented as of this encounter
--- OUTSIDE RECORDS SUMMARY | 2022-04-30 09:39 | XMS_ITS | Encounter Summary ---
:1975 Author Organization [place] Address [facility] [place] [address] Care Team Providers Name Role Phone Melvin Palacios MD Primary Care Provider Reason for Visit Reason Onset Date Comments UTI 04/06/2008 Encounter Details Date Type Department Care Team Description 04/06/2008 Telephone [facility] Tobi [place], MEREDITH Edgar NICK-C [address] [facility], [address] [facility] [address] [place] [address] [place] [address] [phone] Social History Tobacco Use Types Packs/Day Years [...] BID x 7 days Martin Hauser MD [facility] Telephone Encounter - Melissa Leal - 04/06/2008 [...] ied documented in this encounter Care Teams Trimmer Climber Relationship Specialty Start Date End Date Melvin Palacios MD PCP - General 06/22/99 09/20/10 [address] [id number] documented as of this encounter
--- OUTSIDE RECORDS SUMMARY | 2022-04-30 09:39 | XMS_ITS | Encounter Summary ---
:1975 Author Organization [place] Address [address] [place] [address] Care Team Providers Name Role Phone Melvin Palacios MD Primary Care Provider Encounter Details Date Type Department Care Team Description 04/13/2008 Emergency room [facility] Se zoran Marie MD [facility] EMERGENCY PHY CHRISTOPHER PA Results [address] [place] [address] (Wo rk) Social History Tobacco Use Types Packs/Day Years Used Date Smoking Tobacco: Former Alcohol Use Standard Drinks/Week Comments Yes 0 (1 standard drink = 0.6 oz pure alcoho l) social Sex Assigned at Date Recorded Not on file documented as of this encounter Progress Notes Deandre Marie - 04/16/2008 7:26 AM PHOTOVOLTAIC PANEL INSTALLER FINAL CHIEF COMPLAINT: Left flank pain. HISTORY [...] DEANDRE MARIE MD MT: [id number] Name: DARIANA VADLEZ MRN: [id number] Account: [id number] : 1975 Visit Date: 04/13/2008 Document: [id number] cc: William Gamez MD [facility] OVOLTAIC PANEL INSTALLER documented in this encounter Plan of Treatment Not on filedocumented as of this encounter Visit Diagnoses Not on filedocumented in this encounter Care Teams Head Of Mobile Relationship Specialty Start Date End Date Melvin Palacios MD PCP - General 06/22/99 09/20/10 [address] [id number] documented as of this encounter
--- OUTSIDE RECORDS SUMMARY | 2022-04-30 09:39 | XMS_ITS | Encounter Summary ---
:1975 Author Organization [place] Address [address] [place] [address] Care Team Providers Name Role Phone eMlvin Palacios MD Primary Care Provider Reason for Visit Reason Comments Headache Encounter Details Date Type Department Care Team Description 07/18/2008 Office Visit [facility] Barbara, [facility] [place] (Primary Dx) [facility] [address] [place], [place] [phone] Social History Tobacco Use Types Packs/Day Years Used Date Smoking Tobacco: Former Alcohol Use Standard Drinks/Week Comments Yes 0 (1 standard drink = 0.6 oz pure alcoho l) social Sex Assigned at Date Recorded Not on file documented as of this encounter Last Filed Vital Signs Vital Sign Reading Time Taken Comments Blood Pressure 90/60 07/18/2008 3:30 PM FINANCIAL REPORTING DIRECTOR Pulse 70 07/18/2008 3:30 PM FINANCIAL REPORTING DIRECTOR Temperature - - Respiratory Rate - - [...] home, follow up tomorrow if symptoms persist NCIAL REPORTING DIRECTOR documented in this encounter Nursing Notes 07/18/2008 3:30 PM CST >> MELISSA JANSEN Mon Jul 18, 2008 1:13 PM Injections given per EH. See mednotes for details. Melissa Robersonill, [facility] >> LIBRADO STEVENSON [facility] Jul 18, 2008 11:24 AM Darianasa [...] migrainosus documented in this encounter Care Teams Teletype Installer Relationship Specialty Start Date End Date Melvin Palacios MD PCP - General 06/22/99 09/20/10 [address] [id number] documented as of this encounter
--- OUTSIDE RECORDS SUMMARY | 2022-04-30 09:39 | XMS_ITS | Encounter Summary ---
:1975 Author Organization [place] Address [address] [place] [address] Care Team Providers Name Role Phone Melvin [...] as of this encounter Progress Notes Interface, Trade Union Secretary - 08/26/2010 2:19 PM CDT Other Discharge [...] on filedocumented in this encounter Care Teams Fire Equipment Operator Relationship Specialty Start Date End Date Melvin Palacios MD PCP - General 06/22/99 09/20/10 [address] [address] documented as of this encounter
--- OUTSIDE RECORDS SUMMARY | 2022-04-30 09:39 | XMS_ITS | Encounter Summary ---
:1975 Author Organization [place] Address [address] [place] [address]. [place] [address] Care Team Providers Name Role Phone Melvin Palacios MD Primary Care Provider Reason for Visit Reason Comments Medication Request Depression Encounter Details Date Type Department Care Team Description 05/19/2008 Office Visit [facility] [place] DEPRESSYobani VE DISORDER NEC; Clinic [place] ZENON [place]ox ANXIETY STATE NOS; [address] [facility] [address] [place] [address] [phone] Social History Tobacco Use Types Packs/Day Years Used Date Smoking Tobacco: Former Alcohol Use Standard Drinks/Week Comments Yes 0 (1 standard drink = 0.6 oz pure alcoho l) social Sex Assigned at Date Recorded Not on file documented as of this encounter Last Filed Vital Signs Vital Sign Reading Time Taken Comments Blood Pressure 110/66 05/19/2008 3:45 PM OFFICE SUPPORT SPECIALIST Pulse 64 05/19/2008 3:45 PM OFFICE SUPPORT SPECIALIST Temperature - - Respiratory Rate - - Oxygen Saturation - - Inhaled Oxygen Concentration - - Weight 80.3 kg (177 lb) 05/19/2008 3:45 PM OFFICE SUPPORT SPECIALIST Height - - Body Mass Index 28.14 [...] 50 MG OR TABS As per above. CE SUPPORT SPECIALIST documented in this encounter Nursing Notes 05/19/2008 3:45 PM CST >> NIURKA ARANA [facility] May 19, 2008 3:51 PM Patient presents [...] unspecified documented in this encounter Care Teams Waste Baler Relationship Specialty Start Date End Date Melvin Palacios MD PCP - General 06/22/99 09/20/10 [address] [address] documented as of this encounter
--- OUTSIDE RECORDS SUMMARY | 2022-04-30 09:39 | XMS_ITS | Encounter Summary ---
:1975 Author Organization [place] Address [address] [place] [address] Care Team Providers Name Role Phone Melvin Palacios MD Primary Care Provider Reason for Referral Referral not Required - Closed Specialty Diagnoses / Procedures Referred By Contact Refer red To Contact Diagnoses Other specified viral warts Kenneth Cannon DPM [facility] [address] [place], [place] [phone] Phone: [phone] Fax: Referral ID Status Reason Start Date Expiration Date Visits Requ ested Visits Authorized [id number] Closed 09/28/2008 06/08/2011 1 1 Reason for Visit Reason Comments Musculoskeletal Problem right heel- possible plantar wart. She states she had the wart treated and now has olamide n and what looks like a callus. Encounter Details Date Type Department Care Team Description 09/20/2008 Office Visit [facility] Kenneth Cannon Other Specified Viral Clinic Carmen Dietrich DPM Warts (Primary Dx) [address] [facility] [address] [place] [address] E [phone] [address] [place], [place] [address] Social History Tobacco Use Types [...] Primary documented in this encounter Care Teams Lead Net Software Developer Relationship Specialty Start Date End Date Melvin Palacios MD PCP - General 06/22/99 09/20/10 [address] [address] documented as of this encounter
--- OUTSIDE RECORDS SUMMARY | 2022-04-30 09:39 | XMS_ITS | Encounter Summary ---
:1975 Author Organization [place] Address [address] [place] [address] Care Team Providers Name Role Phone Melvin [...] as of this encounter Progress Notes Interface, Quality Internship - 08/26/2010 2:20 PM CDT General Information - How to be addressed Dariana - specialty finishing utility person to Jose Osman () notify: - Phone 1: [phone] - Patient's Spoken Language, Comoran communication style Advance Directive - Do you [...] on filedocumented in this encounter Care Teams Legal Billing Coordinator Relationship Specialty Start Date End Date Melvin Palacios MD PCP - General 06/22/99 09/20/10 [address] [address] documented as of this encounter
--- OUTSIDE RECORDS SUMMARY | 2022-04-30 09:39 | XMS_ITS | Encounter Summary ---
:1975 Author Organization [place] Address [address] [place] [address] Care Team Providers Name Role Phone Melvin Palacios MD Primary Care Provider Encounter Details Date Type Department Care Team Description 06/28/2008 Office Visit [facility] Barbara, UTI (Urina ry Tract Clinic [place] ZENON aLke Infection) (Primary Dx) [facility] [address] [place], [place] [phone] Social History Tobacco Use Types [...] worsen or fail to improve as anticipated. ENING TECHNICIAN documented in this encounter Plan of Treatment Not on filedocumented as of this encounter Procedures Procedure Name Priority Date/Time Associated Diagnosis Comme nts HCL CULTURE, URINE Routine 06/28/2008 9:52 AM UTI (Urinary Tra ct Results for this SCREENING TECHNICIAN Infection) procedure are i n the results section. HCL UA MICRO IF Routine 06/28/2008 9:43 AM UTI (Urinary Tract Results for this POSITIVE SCREENING TECHNICIAN Infection) procedure are i n the results section. CL AFF MICRO Routine 06/28/2008 9:43 AM UTI (Urinary Tract Res ults for this EXAM-URINE SCREENING TECHNICIAN Infection) procedure are i n the results section. documented in this encounter Results URINE CULTURE (06/28/2008 9:52 AM SCREENING TECHNICIAN) [facility] Method Time Signature Specimen Midstream [place] Description Urine [facility] Culture Micro No growth [facility] Report status FINAL [place] 06/30/2008 [facility] Specimen Anatomical Collection Method Collection Time Receive d Time (Source) Location / / Volume Laterality 06/28/2008 9:52 AM 9 9:54 SCREENING TECHNICIAN AM SCREENING TECHNICIAN Aleksandra Jimenez PA-C LABORATORY Performing Organization Address City/State/ZIP Code Phon e Number [facility] [address] [place] [address] [facility] (ABNORMAL) MICRO EXAM-URINE (06/28/2008 9:43 AM SCREENING TECHNICIAN) [facility] Method Time Signature WBC Urine 50-100 (A) 0 - 2 [place] /HPF [facility] RBC Urine >100 (A) 0 - 2 [place] /HPF [facility] Squamous EPI Few FEW /LPF [facility] Bacteria Urine Few (A) NEG /HPF [facility] Mucous Urine Present (A) NEG /LPF [facility] Specimen Anatomical Collection Method Collection Time Receive d Time (Source) Location / / Volume Laterality 06/28/2008 9:43 AM 9 9:45 SCREENING TECHNICIAN AM SCREENING TECHNICIAN Aleksandra Jimenez PA-C LABORATORY Performing Organization Address City/[facility] Code Phon e Number [facility] [place] [address] [facility] (ABNORMAL) UA MICRO IF POSITIVE (06/28/2008 9:43 AM SCREENING TECHNICIAN) [facility] Method Time Signature Color Urine Yellow [facility] Appearance Urine Cloudy [facility] Glucose Urine Negative NEG mg/dL [facility] Bilirubin Urine Negative NEG [facility] Ketones Urine Negative NEG mg/dL [facility] Specific [place] 1.025 1.003 - [place] Urine 1.035 [facility] Blood Urine Large (A) NEG [facility] pH Urine 5.0 5.0 - 7.0 [place] pH [facility] Protein Albumin Trace (A) NEG mg/dL [facility] Urobilinogen 0.2 0.2 - 1.0 [place] Urine EU/dL [facility] Nitrite Urine Negative NEG [facility] Leukocyte Moderate (A) NEG [place] Esterase Urine [facility] Source Midstream [facility] Specimen Anatomical Collection Method Collection Time Receive d Time (Source) Location / / Volume Laterality 06/28/2008 9:43 AM 9 9:45 SCREENING TECHNICIAN AM SCREENING TECHNICIAN Aleksandra Jimenez PA-C LABORATORY Performing Organization Address City/[facility] Code Phon e Number [facility] [place] [address] [facility] documented in this encounter Visit Diagnoses Diagnosis UTI (urinary tract infection) - Primary Urinary tract infection, site not specif ied documented in this encounter Care Teams Ecommerce Marketing Manager Relationship Specialty Start Date End Date Melvin Palacios MD PCP - General 06/22/99 09/20/10 [address] [id number] documented as of this encounter
--- OUTSIDE RECORDS SUMMARY | 2022-04-30 09:39 | XMS_ITS | Encounter Summary ---
:1975 Author Organization [place] Address [address] [place] [address] Care Team Providers Name Role Phone Melvin Palacios MD Primary Care Provider Encounter Details Date Type Department Care Team Description 08/02/2008 Telephone [facility] Gurmeet Jimenez, [place] [address] [facility], [facility] OCTOBER O [facility] [address] [place] [address] [place] [address] (Wo rk) Social History Tobacco Use [...] sent to pharm for probable sinus infection NSTITCH SEWING MACHINE OPERATOR Telephone Encounter - Aleksandra Jimenez - 08/02/2008 8:59 AM CHAINSTITCH SEWING MACHINE OPERATOR Staff Message copied by ALEKSANDRA JIMENEZ on FriAug 02, 2008 8:59 AM ------ Message from: DARIANA VALDEZ Created: Fri Aug 02, 2008 7:59 AM Regarding: antibiotic [place] I was wondering if you wouldn't mind sending a antibiotic RX to [facility]. My glands are still swollen and painful. I have been taking sudafed and Robitusin DM. My sinuses still are stuffy. Does the color of the mucus that is brought up from coughing make any difference? Thecolor is green (yuk)! At night the cough has become worse when laying down. Let me know what you think. Dariana NSTITCH SEWING MACHINE OPERATOR documented in this encounter Plan of Treatment Not on filedocumented as of this encounter Visit Diagnoses Diagnosis Acute maxillary sinusitis - Primary documented in this encounter Care Teams Athlete Marketing Agent Relationship Specialty Start Date End Date Melvin Palacios MD PCP - General 06/22/99 09/20/10 [address] [id number] documented as of this encounter
--- OUTSIDE RECORDS SUMMARY | 2022-04-30 09:39 | XMS_ITS | Encounter Summary ---
:1975 Author Organization [place] Address [address] [place] [address] Care Team Providers Name Role Phone Melvin Palacios MD Primary Care Provider Encounter Details Date Type Department Care Team Description 04/13/2008 Results Only [facility] Se zoran Marie MD [facility] EMERGENCY EVELYNY CHRISTOPHER PA Results [address] [place], [place] [address] (Wo rk) Social History [...] 7:19 AM Results f or this RETROPERITONEAL, PRODUCT TECHNICIAN procedure a re in COMPLETE the results section. documented in this encounter Results SONO RETROPERITONEAL (04/13/2008 7:19 AM PRODUCT TECHNICIAN) Anatomical Region Laterality Modality Other Specimen (Source) Anatomical Collection Method Collection Time Re ceived Time Location / / Volume Laterality 04/13/2008 7:19 AM PRODUCT TECHNICIAN Impressions 04/13/2008 7:29 AM PRODUCT TECHNICIAN US RETROPERITONEAL COMP Apr 13, 2008 7:19 [...] on filedocumented in this encounter Care Teams Wheel Cutter Relationship Specialty Start Date End Date Melvin Palacios MD PCP - General 06/22/99 09/20/10 [address] [id number] documented as of this encounter
--- OUTSIDE RECORDS SUMMARY | 2022-04-30 09:39 | XMS_ITS | Encounter Summary ---
:1975 Author Organization [place] Address [address] [place] [address] Care Team Providers Name Role Phone Melvin Palacios MD Primary Care Provider Encounter Details Date Type Department Care Team Description 09/27/2008 Orders Only [facility] Dys uria (Primary Dx) [place] [facility], [address] [place] [address] Social History Tobacco Use [...] (ABNORMAL) MICRO EXAM-URINE (09/27/2008 3:52 PM CDT) [facility] Method Time Signature WBC Urine 5-10 (A) 0 - 2 [place] /[facility] RBC Urine 10-25 (A) 0 - 2 [place] /[facility] Squamous EPI Few FEW /LPF [facility] Bacteria Moderate (A) NEG /HPF [place] Urine [facility] Specimen Anatomical Collection Method Collection Time Receive d Time (Source) Location / / Volume Laterality 09/27/2008 3:52 PM 9 3:54 CDT PM CDT Aleksandra Jimenez PA-C LABORATORY Performing Organization Address City/State/ZIP Code Phon e Number [facility] [address] [place] [address] [facility] URINE CULTURE (09/27/2008 3:52 PM CDT) Component Value Ref Test Analysis Performed At [facility] gist Range Method Time Signature Specimen Midstream Urine [place] Description [facility] Culture Micro <10,000 colonies/mL Escherichia coli [place] Sent report to [place] on 10.01.08 [facility] Report status FINAL [place] 09/29/2008 [facility] Specimen Anatomical [...] Organization Address City/State/ZIP Code Phon e Number [facility] [address] [place] [address] HOSPITAL [facility] (ABNORMAL) UA MICRO IF POSITIVE (09/27/2008 3:52 PM CDT) [facility] Method Time Signature Color Urine Yellow [facility] Appearance Urine Clear [facility] Glucose Urine Negative NEG mg/dL [facility] Bilirubin Urine Negative NEG [facility] Ketones Urine Negative NEG mg/dL [facility] Specific [place] 1.025 1.003 - [place] Urine 1.035 [facility] Blood Urine Moderate (A) NEG [facility] pH Urine 7.0 5.0 - 7.0 [place] pH [facility] Protein Albumin Negative NEG mg/dL [facility] Urobilinogen 1.0 0.2 - 1.0 [place] Urine EU/dL [facility] Nitrite Urine Negative NEG [facility] Leukocyte Small (A) NEG [place] Esterase Urine [facility] Source Midstream [facility] Specimen Anatomical Collection Method Collection Time Receive d Time (Source) Location / / Volume Laterality 09/27/2008 3:52 PM 9 3:54 CDT PM CDT Aleksandra Jimenez PA-C LABORATORY Performing Organization Address City/State/ZIP Code Phon e Number [facility] [place] [address] [facility] documented in this encounter Visit Diagnoses Diagnosis Dysuria - Primary documented in this encounter Care Teams Compensation Analyst Relationship Specialty Start Date End Date Melvin Palacios MD PCP - General 06/22/99 09/20/10 [address] [id number] documented as of this encounter
--- OUTSIDE RECORDS SUMMARY | 2022-04-30 09:39 | XMS_ITS | Encounter Summary ---
:1975 Author Organization [place] Address [address] [place] [address] Care Team Providers Name Role Phone Melvin [...] as of this encounter Progress Notes Interface, Flight Hostess - 08/26/2010 2:27 PM CDT Allergies ?? [...] on filedocumented in this encounter Care Teams Family And Consumer Sciences Teacher Relationship Specialty Start Date End Date Melvin Palacios MD PCP - General 06/22/99 09/20/10 [address] [id number] documented as of this encounter
--- OUTSIDE RECORDS SUMMARY | 2022-04-30 09:39 | XMS_ITS | Encounter Summary ---
:1975 Author Organization [place] Address [address] [place] [address] Care Team Providers Name Role Phone Melvin Palacios MD Primary Care Provider Reason for Visit Reason Comments Pharyngitis Urgent Care Encounter Details Date Type Department Care Team Description 10/05/2008 Office Visit [facility] Janee Funez Sor e Throat (Viral) Care ZEN[place] Sellers (Primary Dx) [address] [facility] [address] [facility] [place] [phone] S[place] JUÁREZ [address] (Wo rk) Social History [...] sx persist or worsen See orders in [facility]. documented in this encounter Nursing Notes [...] Component Value Ref Test Analysis Performed At [facility] gist Range Method Time Signature Specimen Throat [facility] Culture Micro No Beta [place] Streptococcus [facility] isolated LAB Report status FINAL 10/07/2008 [facility] Specimen Anatomical Collection Method Collection Time Receive d Time (Source) Location / / Volume Laterality 10/05/2008 7:36 PM 9 7:41 CDT PM CDT Stefanie Rojas MD LABORATORY Performing Organization Address City/State/ZIP Code Phon e Number [facility] [address] [place] [address] [facility] STREP GROUP A ANTIGEN (RAPID) (10/05/2008 7:36 PM CDT) Component Value Ref Test Analysis Performed At [facility] Net Zero [employer] Range Method Time Signature Specimen Throat [facility] Rapid Strep A NEGATIVE: No Group A strepto coccal antigen detected by immunoassay, await [place] Screen culture report. [facility] Report status FINAL 10/05/2008 [facility] Specimen Anatomical Collection Method Collection Time Receive d Time (Source) Location / / Volume Laterality 10/05/2008 7:36 PM 9 7:41 CDT PM CDT Stefanie Rojas MD LABORATORY Performing Organization Address City/State/ZIP Code Phon e Number [facility] [address] [facility] [place] [address] [facility] documented in this encounter Visit Diagnoses Diagnosis Sore throat (viral) - Primary Acute pharyngitis documented in this encounter Care Teams Clinical Data Management Manager Relationship Specialty Start Date End Date Melvin Palacios MD PCP - General 06/22/99 09/20/10 [address] [id number] documented as of this encounter
--- OUTSIDE RECORDS SUMMARY | 2022-04-30 09:39 | XMS_ITS | Encounter Summary ---
:1975 Author Organization [place] Address [address] [place] [address] Care Team Providers Name Role Phone Melvin Palacios MD Primary Care Provider Encounter Details Date Type Department Care Team Description 04/13/2008 Admission [facility] William Black, (Sports Nutritionist) [facility] Results [facility] [id number] [place] [address] (Wo rk) Social History Tobacco Use Types Packs/Day Years Used Date Smoking Tobacco: Former Alcohol Use Standard Drinks/Week Comments Yes 0 (1 standard drink = 0.6 oz pure alcoho l) social Sex Assigned at Date Recorded Not on file documented as of this encounter Progress Notes William Black - 04/23/2008 8:21 AM [place] LAYUP LINE CORE LAYER FINAL Dariana Valdez is a 32-year-old female [...] PA-C MT: alise Name: DARIANA VALDEZ Account: [id number] : 1975 Admitted: [id number] Document: [id number] OOD LAYUP LINE CORE LAYER documented in this encounter Plan of Treatment Not on filedocumented as of this encounter Visit Diagnoses Not on filedocumented in this encounter Care Teams Book Critic Relationship Specialty Start Date End Date Melvin Palacios MD PCP - General 06/22/99 09/20/10 [address] [id number] documented as of this encounter
--- OUTSIDE RECORDS SUMMARY | 2022-04-30 09:39 | XMS_ITS | Encounter Summary ---
:1975 Author Organization [place] Address [address] [place] [address] Care Team Providers Name Role Phone Melvin [...] as of this encounter Progress Notes Interface, Passenger Locomotive Engineer - 08/26/2010 2:04 PM CDT Patient Status - Diagnosis/Procedure Nausea/Vomitting and Flank Pain - Physical status Stable (s/s of potential complications absent or manageable) Discharge Planning - Discharge From: [facility] - Patient Care Unit: [facility] 66 - U - Discharge To: Home/Alternative home - Phone number after [phone] discharge: - Method of discharge: Wheel Chair [...] Dr Gamez call: - Phone number of [facility] [phone] patient should call: Follow Up Care - [...] on filedocumented in this encounter Care Teams On Air Director Relationship Specialty Start Date End Date Melvin Palacios MD PCP - General 06/22/99 09/20/10 [address] [id number] documented as of this encounter
--- OUTSIDE RECORDS SUMMARY | 2022-04-30 09:39 | XMS_ITS | Encounter Summary ---
:1975 Author Organization [place] Address [address] [facility] [place] [address] Care Team Providers Name Role Phone Melvin Palacios MD Primary Care Provider Encounter Details Date Type Department Care Team Description 04/06/2008 Emergency room [facility] Delta Coello [facility] MD Negro Results Emergency Physic ians NICK [address] [place], [place] [address] (Wo rk) Social History Tobacco Use Types Packs/Day Years Used Date Smoking Tobacco: Former Alcohol Use Standard Drinks/Week Comments Yes 0 (1 standard drink = 0.6 oz pure alcoho l) social Sex Assigned at Date Recorded Not on file documented as of this encounter Progress Notes Delta Coello - 05/02/2008 5:30 AM DIVISION SERGEANT FINAL CHIEF COMPLAINT: Abdominal pain. HISTORY OF [...] a strainer to collect the stone, taking qxmo-xoe-fwaurpf ibuprofen 800 mg p.o. t.i.d. Flomax p.r.n. [...] MT: CATERINA Name: JUAN CARLOS VALDEZ Account: [id number] : 1975 Visit Date: 04/06/2008 Document: [id number] cc: Primary Care Physician SION SERGEANT documented in this encounter Plan of Treatment Not on filedocumented as of this encounter Visit Diagnoses Not on filedocumented in this encounter Care Teams Biology Laboratory Assistant Relationship Specialty Start Date End Date Melvin Palacios MD PCP - General 06/22/99 09/20/10 [address] [id number] documented as of this encounter
--- OUTSIDE RECORDS SUMMARY | 2022-04-30 09:39 | XMS_ITS | Encounter Summary ---
:1975 Author Organization [place] Address [address] [place] [address] Care Team Providers Name Role Phone Melvin [...] Routine 04/13/2008 6:07 AM Results for this POTATO PICKER procedure are i n the results section. CBC WITH PLATELETS & STAT 04/13/2008 6:02 AM R esults for this DIFFERENTIAL POTATO PICKER procedure are i n the results section. ROUTINE UA WITH STAT 04/13/2008 6:02 AM Result s for this MICROSCOPIC POTATO PICKER procedure are i n the results section. BASIC METABOLIC PANEL STAT 04/13/2008 6:02 AM Results for this POTATO PICKER procedure are i n the results section. documented in this encounter Results Urine culture (04/13/2008 6:07 AM POTATO PICKER) [facility] Method Time Signature Specimen Midstream Urine [facility] Description Culture Micro <10,000 [place] colonies/mL Escherichia coli Comment: Faxed to [phone] on 04/15/08 H M Micro Report Status FINAL 04/15/2008 M[facility] YS Specimen Anatomical Collection Method Collection Time Receive d Time (Source) Location / / Volume Laterality 04/13/2008 6:07 AM 8 7:08 POTATO PICKER AM POTATO PICKER Organism Antibiotic Method Susceptibility <10,000 colonies/ml Ampicillin [...] CBC with platelets differential (04/13/2008 6:02 AM POTATO PICKER) [facility] Method Time Signature MCV 89 78 [...] Volume Laterality 04/13/2008 6:02 AM 8 6:10 POTATO PICKER AM POTATO PICKER Donal Marie MD LAB - BLOOD ORDERABLES Performing Organization Address City/State/ZIP Code Phon e Number [facility] Basic metabolic panel (04/13/2008 6:02 AM POTATO PICKER) P athologist Signature Sodium 141 133 - [...] Volume Laterality 04/13/2008 6:02 AM 8 6:10 POTATO PICKER AM POTATO PICKER Donal Marie MD LAB - BLOOD ORDERABLES Performing Organization Address City/State/ZIP Code Phon e Number [place] (ABNORMAL) Routine UA with microscopic (04/13/2008 6:02 AM POTATO PICKER) [facility] Method Time Signature Source Midstream [facility] Urine Color Urine Yellow [place] Appearance Urine Clear [place] Glucose Urine Negative NEG mg/dL [facility] Bilirubin Urine Negative NEG [facility] Ketones Urine 40 (A) NEG mg/dL [facility] Specific [place] 1.026 1.003 - [place] Urine 1.035 Blood [...] Volume Laterality 04/13/2008 6:02 AM 8 6:10 POTATO PICKER AM POTATO PICKER Donal H Frank BANERJEE LAB - URINE ORDERABLES Performing Organization Address City/[facility] Phon e Number [facility] documented in this encounter Visit Diagnoses Not on filedocumented in this encounter Care Teams Grooving Machine Operator Relationship Specialty Start Date End Date Melvin Palacios MD PCP - General 06/22/99 09/20/10 [address] [address] documented as of this encounter
--- OUTSIDE RECORDS SUMMARY | 2022-04-30 09:39 | XMS_ITS | Encounter Summary ---
:1975 Author Organization [place] Address [address] [place] [address] Care Team Providers Name Role Phone Melvin Palacios MD Primary Care Provider Encounter Details Date Type Department Care Team Description 04/08/2008 Results Only [facility] William Gamez MD [facility] Results [id number] [place] [id number] (Wo rk) Social History Tobacco Use Types [...] on filedocumented in this encounter Care Teams Diesel Crane Operator Relationship Specialty Start Date End Date Melvin Palacios MD PCP - General 06/22/99 09/20/10 [address] [id number] documented as of this encounter
--- OUTSIDE RECORDS SUMMARY | 2022-04-30 09:39 | XMS_ITS | Encounter Summary ---
:1975 Author Organization [place] Address [address] [place] [address] Care Team Providers Name Role Phone Melvin [...] as of this encounter Progress Notes Interface, Bottom Finisher - 08/26/2010 2:09 PM CDT Allergies ?? IVP Dye;Hives f0?? Codeine;Other pard par Basic Medication Information - History taken from:: Patient Medications (#1-10) - Medication: Tramadol - Medication: Compazine - Medication: Tylenol ES RIC [place] (RN)[Signed 05:45] Authored: Allergies, Basic Medication Information, Medications (#1-10) Interface, Bottom Finisher - 08/26/2010 2:08 PM CDT General Information - How to be addressed Dariana - Temporary living None required arrangements - Source of reliable Patient information - Arrived from Emergency department - motor vehicle salesperson to [facility]: - Phone 1: [phone] - Patient's Spoken Language, Bangladeshi communication style Advance Directive - Do you [...] Considerations - Developmental None Learning Considerations - Oriental Orthodox Learning None Considerations Activity-Exercise/Self Care - Ambulation [...] not wish to have anyone contacted pastoral care/clergy/independent living advisor notified? Mutuality/Individual Preferences - What information [...] on filedocumented in this encounter Care Teams Hat Liner Relationship Specialty Start Date End Date Melvin Palacios MD PCP - General 06/22/99 09/20/10 [address] [phone] documented as of this encounter
--- OUTSIDE RECORDS SUMMARY | 2022-04-30 09:39 | XMS_ITS | Encounter Summary ---
:1975 Author Organization [place] Address [address] [place] [address]. [place] [address] Care Team Providers Name Role Phone Melvin Palacios MD Primary Care Provider Encounter Details Date Type Department Care Team Description 11/04/2008 Office Visit [facility] Melvin Palacios MD Panic Attack (Primary Clinic [place] [address] [place]) [address] [place], [place] [id number] Social History Tobacco Use Types Packs/Day Years [...] in this encounter Care Teams Director Of Residential Services Relationship Specialty Start Date End Date Melvin Palacios MD PCP - General 06/22/99 09/20/10 [address] [phone] documented as of this encounter
--- OUTSIDE RECORDS SUMMARY | 2022-04-30 09:39 | XMS_ITS | Encounter Summary ---
:1975 Author Organization [place] Address [address] [place] [address] Care Team Providers Name Role Phone Melvin Palacios MD Primary Care Provider Reason for Visit Reason Onset Date Comments Refill Request 09/09/2008 Celexa Encounter Details Date Type Department Care Team Description 09/09/2008 Refill [facility] [place] Request (Celexa) [place] [address] [phone] (Wo rk) Social History Tobacco Use Types [...] unspecified documented in this encounter Care Teams Art Museum Aide Relationship Specialty Start Date End Date Melvin Palacios MD PCP - General 06/22/99 09/20/10 [address] [address] documented as of this encounter
--- OUTSIDE RECORDS SUMMARY | 2022-04-30 09:39 | XMS_ITS | Encounter Summary ---
:1975 Author Organization [place] Address [address] [place] [address] Care Team Providers Name Role Phone Melvin Palacios MD Primary Care Provider Reason for Visit Reason Onset Date Comments Refill Request 04/25/2008 Encounter Details Date Type Department Care Team Description 04/25/2008 Refill [facility] Gurmeet Jimenez th, Refill Request [place] [id number] [facility] [address] [place] [address] [place] [phone] (Wo rk) Social History [...] vagina documented in this encounter Care Teams Automobile Damage Appraiser Relationship Specialty Start Date End Date Melvin Palacios MD PCP - General 06/22/99 09/20/10 [address] [id number] documented as of this encounter
--- OUTSIDE RECORDS SUMMARY | 2022-04-30 09:40 | XMS_ITS | Encounter Summary ---
:1975 Author Organization [place] Address [facility] [place] [address] Care Team Providers Name Role Phone Melvin Palacios MD Primary Care Provider Reason for Referral Referral not Required - Closed Specialty Diagnoses / Procedures Referred By Contact Refer red To Contact Diagnoses Gross hematuria Aleksandra Jimenez PA-C [facility]AL [address] [place] [address] [address] [facility] [address] [place] [address] [place] [address] Phone: [phone] Fax: Referral ID Status Reason Start Date Expiration Date Visits Requ ested Visits Authorized [id number] Closed 03/17/2008 06/08/2011 1 1 Reason for Visit Reason Comments Urinary Problem Encounter Details Date Type Department Care Team Description 03/17/2008 [facility] Jered turia (Primary Dx); Clinic [place] Yeast Infection of the Vagina [facility] IC [address] [place], [place] [address] [phone] Social History Tobacco Use Types Packs/Day Years [...] AM CDT >> LIBRADO STEVENSON [facility] Mar 17, 2008 11:46 AM Dariana [...] Urine O - 2 0 - 2 [place] [facility] RBC Urine >100 (A) 0 - 2 [place] [facility] Squamous EPI Few FEW /LPF [facility] Bacteria Moderate (A) NEG /HPF [place] Urine [facility] Yeast Urine Few (A) NEG /HPF [facility] Mucous Urine Present (A) NEG /LPF [facility] Specimen Anatomical Collection Method Collection Time Receive d Time (Source) Location / / Volume Laterality 03/17/2008 8:49 AM 8 8:51 CDT AM CDT Aleksandra Jimenez PA-C LABORATORY Performing Organization Address City/[facility]/ZIP Code Phon e Number [facility] [address] [place] [address] [phone] [facility] CULTURE, URINE (MISYS) (03/17/2008 8:49 AM CDT) [facility] Method [place] Signature Specimen Midstream [place] Description Urine [facility] Culture Micro No growth [facility] Report status FINAL [place] 03/19/2008 [facility] Specimen Anatomical Collection Method Collection Time Receive d Time (Source) Location / / Volume Laterality 03/17/2008 8:49 AM 8 8:51 CDT AM CDT Authorizing Provider Result Ester Jimenez PA-C LABORATORY Performing Organization Address City/State/ZIP Code Phon e Number [facility] [address] [address] HOSPITAL [facility] (ABNORMAL) UA MICRO IF POSITIVE (03/17/2008 8:49 AM CDT) [facility] Method Time Signature Color Urine Red [facility] Appearance Urine Cloudy [facility] Glucose Urine Negative NEG mg/dL [facility] Bilirubin Urine Negative NEG [facility] Ketones Urine Negative NEG mg/dL [facility] Specific [place] 1.025 1.003 - [place] Urine 1.035 [facility] Blood Urine Large (A) NEG [facility] pH Urine 5.5 5.0 - 7.0 [place] pH [facility] Protein Albumin >=300 (A) NEG mg/dL [place] Urine [facility] Urobilinogen 0.2 0.2 - 1.0 [place] Urine EU/dL [facility] Nitrite Urine Negative NEG [facility] Leukocyte Negative NEG [place] Esterase Urine [facility] Source Midstream [place] Urine [facility] Specimen Anatomical Collection Method Collection Time Receive d Time (Source) Location / / Volume Laterality 03/17/2008 8:49 AM 8 8:51 CDT AM CDT Aleksandra Jimenez PA-C LABORATORY Performing Organization Address City/State/ZIP Code Phon e Number [facility] [phone] [place] [address] [phone] [facility] documented in this encounter Visit Diagnoses Diagnosis Gross hematuria - Primary Yeast infection of the vagina Candidiasis of vulva and vagina documented in this encounter Care Teams Language Path Relationship Specialty Start Date End Date Melvin Palacios MD PCP - General 06/22/99 09/20/10 [address] [id number] documented as of this encounter
--- OUTSIDE RECORDS SUMMARY | 2022-04-30 09:40 | XMS_ITS | Encounter Summary ---
:1975 Author Organization [place] Address [address] [place] [address]. [place] [address] Care Team Providers Name Role Phone Melvin Palacios MD Primary Care Provider Encounter Details Date Type Department Care Team Description 01/18/2008 Office Visit [facility] Ye Jimenez of Foot without Clinic [place] PA-C Infection (Primary Dx) [facility] [address] [place], [place] [phone] Social History Tobacco Use Types [...] OR TABS Oral 1 TABLET AT BEDTIME [id number] EXP 10/14 10 0 Allergies Allergen Reactions [...] infection documented in this encounter Care Teams Rivet Hammer Machine Operator Relationship Specialty Start Date End Date Melvin Palacios MD PCP - General 06/22/99 09/20/10 [address] [address] [address] documented as of this encounter
--- OUTSIDE RECORDS SUMMARY | 2022-04-30 09:40 | XMS_ITS | Encounter Summary ---
:1975 Author Organization [place] Address [address] [place] [address] Care Team Providers Name Role Phone Melvin Palacios MD Primary Care Provider Reason for Visit Reason Comments Urinary Problem Encounter Details Date Type Department Care Team Description 03/10/2008 Office Visit [facility] Barbara, UTI (Urina ry Tract Infection) (Primary Dx); Clinic [place] Hematuria [facility] IC [address] [place], [place] [phone] Social History Tobacco Use Types Packs/Day Years [...] (ABNORMAL) MICRO EXAM-URINE (03/10/2008 8:10 AM CDT) [facility] Method Time Signature WBC Urine >100 (A) 0 - 2 [place] /HPF [facility] RBC Urine >100 (A) 0 - 2 [place] /HPF [facility] Squamous EPI Few FEW /LPF [facility] Bacteria Urine Many (A) NEG /HPF [facility] Mucous Urine Present (A) NEG /LPF [facility] Specimen Anatomical Collection Method Collection Time Receive d Time (Source) Location / / Volume Laterality 03/10/2008 8:10 AM 8 8:12 CDT AM CDT Aleksandra Jimenez PA-C LABORATORY Performing Organization Address City/State/[place] [address] [facility] CULTURE, URINE (MISYS) (03/10/2008 8:10 AM CDT) Component Value Ref Test Analysis Performed At [facility] Range Method Time Signature Specimen Midstream Urine [facility] Culture Micro 50 to 100,000 [place] colonies/mL [facility] coli Report status FINAL [place] 03/12/2008 [facility] Specimen Anatomical Collection Method [...] Code Phon e Number [facility] [address] [place] [address] HOSPITAL [facility] (ABNORMAL) UA MICRO IF POSITIVE (03/10/2008 8:10 AM CDT) [facility] Method Time Signature Color Urine Red [facility] Appearance Urine Cloudy [facility] Glucose Urine Negative NEG mg/dL [facility] Bilirubin Urine Negative NEG [facility] Ketones Urine Trace (A) NEG mg/dL [facility] Specific [place] 1.025 1.003 - [place] Urine 1.035 [facility] Blood Urine Large (A) NEG [facility] pH Urine 5.5 5.0 - 7.0 [place] pH [facility] Protein Albumin 100 (A) NEG mg/dL [place] Urine [facility] Urobilinogen 0.2 0.2 - 1.0 [place] Urine EU/dL [facility] Nitrite Urine Positive (A) NEG [facility] Leukocyte Small (A) NEG [place] Esterase Urine [facility] Source Midstream [place] Urine [facility] Specimen Anatomical Collection Method Collection Time Receive d Time (Source) Location / / Volume Laterality 03/10/2008 8:10 AM 8:12 CDT AM CDT Aleksandra Jimenez PA-C LABORATORY Performing Organization Address City/State/ZIP Code Phon e Number [facility] [place] [address] [facility] documented in this encounter Visit Diagnoses Diagnosis UTI (urinary tract infection) - Primary Urinary tract infection, site not specif ied Hematuria Hematuria, unspecified documented in this encounter Care Teams Warrant Clerk Relationship Specialty Start Date End Date Melvin Palacios MD PCP - General 06/22/99 09/20/10 [address] [address] [id number] documented as of this encounter
--- OUTSIDE RECORDS SUMMARY | 2022-04-30 09:40 | XMS_ITS | Encounter Summary ---
:1975 Author Organization [place] Address [address] [place] [address]. [place] [address] Care Team Providers Name Role Phone Melvin Palacios MD Primary Care Provider Reason for Visit Reason Comments Headache Encounter Details Date Type Department Care Team Description 02/10/2008 Office Visit [facility] Headaches [place] (Primary Dx) [facility], [address] [place] [address] Social History Tobacco Use Types Packs/Day Years Used Date Smoking Tobacco: Former Alcohol Use Standard Drinks/Week Comments Yes 0 (1 standard drink = 0.6 oz pure alcoho l) social Sex Assigned at Date Recorded Not on file documented as of this encounter Progress Notes Rachid Stevenson - 02/10/2008 1:06 PM CDT See mednotes for inj. Documentation.Rachid Stevenson MA documented in this encounter Nursing Notes 02/10/2008 2:30 PM CDT >> RACHID STEVENSON Wed Feb 10, 2008 1:06 PM Pt at clinic with migraine, ok verbal by CB for 30mg of tordal and 6mg of imitrex. See med notes fordetails.Rachid Stevenson MA documented in this encounter Plan of Treatment Not on filedocumented as of this encounter Visit Diagnoses Diagnosis Migraine headaches - Primary Migraine, unspecified, without mention o f intractable migraine without mention of status migrainosus documented in this encounter Care Teams Internal Communications Specialist Relationship Specialty Start Date End Date Melvin Palacios MD PCP - General 06/22/99 09/20/10 [address] [address] [address] documented as of this encounter
--- OUTSIDE RECORDS SUMMARY | 2022-04-30 09:40 | XMS_ITS | Encounter Summary ---
:1975 Author Organization [place] Address [address] [place] [address] Care Team Providers Name Role Phone Melvin Palacios MD Primary Care Provider Reason for Referral - Closed Specialty Diagnoses / Procedures Referred By Contact Refer red To Contact Diagnoses Depressive disorder, not elsewhere classified Anxiety state, unspecified Tobi [place] PA-C [address] [place], [place] [address] Referral ID Status Reason Start Date Expiration Date Visits Requ ested Visits Authorized [id number] Closed 09/24/2007 06/08/2011 1 1 Reason for Visit Reason Comments Medication Request pt is over stressed with samuel colon problems- would like to discuss med upgrade or additional me d Depression Encounter Details Date Type Department Care Team Description 09/24/2007 Office Visit [facility] Tobi West VE DISORDER NEC; Clinic [place] Z[place] ANXIETY STATE NOS; [address] [facility] [address] [address] [facility] [place] [address] [phone] Social History Tobacco Use Types Packs/Day Years [...] PLATELETS, TSH W/FREE T4 REFLEX, CONSULT PSYCHIATRY ([facility]) Increased to Lexapro 30mg daily. F/u in 2-3 weeks for recheck. Potential adverse SE related to medication adjustment are discussed in detail. F/u STAT if any increased anxiety/depression or if any other unusual mood changes occur following medication start. Pt agrees to make apts to f/u with psychiatry and with counselor. 300.00 ANXIETY STATE NOS Plan: CONSULT PSYCHIATRY ([facility]) As per above. 789.06 ABDOMINAL PAIN EPIGASTRIC [...] Center gist Range Method Time Signature Specimen Whole Blood [facility] Description [facility] Heliobacter No detectable IgG antibody t o Helicobacter pylori. If current infection is [place] pylori Antibody suspected, please submit a new specimen in 4 to 6 we eks. [facility] Report status FINAL 09/24/2007 [facility] Specimen Anatomical Collection Method Collection Time Receive d Time (Source) Location / / Volume Laterality 09/24/2007 12:05 09/24/2007 PM CDT 12:08 PM CDT [place] PA-C LABORATORY Performing Organization Address City/[facility]/ZIP Code Phon e Number [facility] [address] [place] [address] [facility] TSH W/FREE T4 REFLEX (09/24/2007 12:04 PM CDT) athologist Signature TSH 1.24 0.4 - 5.0 [facility] mU/L [facility] Specimen Anatomical Collection Method Collection Time Receive d Time (Source) Location / / Volume Laterality 09/24/2007 12:04 09/24/2007 PM CDT 12:08 PM CDT Tobi [place] PA-C LABORATORY Performing Organization Address City/[facility]/ZIP Code Phon e Number [facility] [address] [place] [address] [facility] CBC WITH PLATELETS (09/24/2007 12:04 PM CDT) P athologist Signature WBC 5.8 4.0 - 11.0 [facility]9/L [facility] RBC Count 4.42 3.8 - 5.2 [facility] 10e12/L [facility] Hemoglobin 13.1 11.7 - [facility] 15.7 g/dL [facility] Hematocrit 39.8 35.0 - [place] 47.0 % [facility] MCV 90 78 - 100 [facility] fl [facility] MCH 29.6 26.5 - [place] 33.0 pg [facility] MCHC 32.9 31.5 - [place] 36.5 g/dL [facility] RDW 12.9 10.0 - [place] 15.0 % [facility] Platelet Count 287 150 - 450 [facility] 10e9/L [facility] Specimen Anatomical Collection Method Collection Time Receive d Time (Source) Location / / Volume Laterality 09/24/2007 12:04 09/24/2007 PM CDT 12:08 PM CDT Tobi [place] PA-C LABORATORY Performing Organization Address City/State/[facility] Code Phon e Number [facility] [address] [place] [address] [facility] documented in this encounter Visit Diagnoses Diagnosis Depressive disorder, not elsewhere class ified Anxiety state, unspecified Abdominal pain, epigastric documented in this encounter Care Teams Flatbed Stitcher Relationship Specialty Start Date End Date Melvin Palacios MD PCP - General 06/22/99 09/20/10 [address] [address] [address] documented as of this encounter
--- OUTSIDE RECORDS SUMMARY | 2022-04-30 09:40 | XMS_ITS | Encounter Summary ---
:1975 Author Organization [place] Address [address] [place] [address] Care Team Providers Name Role Phone Melvin Palacios MD Primary Care Provider Reason for Visit Reason Onset Date Comments Referral 01/01/2008 pt requesting her re ferral faxed to her Encounter Details Date Type Department Care Team Description 01/01/2008 Telephone [facility] Melvin Palacios MD Referral (pt requesting Clinic [place] [address] her referral faxed to [address] [place] [address]) [place] [address] [phone] (Wo rk) Social History Tobacco Use Types [...] her referral for faxed to her at [phone]--referral faxed Felicia Mcintyre/GUY documented in this encounter Plan of Treatment Not on filedocumented as of this encounter Visit Diagnoses Not on filedocumented in this encounter Care Teams Voip Technician Relationship Specialty Start Date End Date Melvin Palacios MD PCP - General 06/22/99 09/20/10 [address] [address] [address] documented as of this encounter
--- OUTSIDE RECORDS SUMMARY | 2022-04-30 09:40 | XMS_ITS | Encounter Summary ---
:1975 Author Organization [place] Address [address] [place] [address]. [place] [address] Care Team Providers Name Role Phone Melvin Palacios MD Primary Care Provider Encounter Details Date Type Department Care Team Description 03/17/2008 Telephone [facility] Tobi West[address] [phone] [place] [address] (Wo rk) Social History Tobacco [...] on filedocumented in this encounter Care Teams Silvering Department Supervisor Relationship Specialty Start Date End Date Melvin Palacios MD PCP - General 06/22/99 09/20/10 [address] [id number] documented as of this encounter
--- OUTSIDE RECORDS SUMMARY | 2022-04-30 09:40 | XMS_ITS | Encounter Summary ---
:1975 Author Organization [place] Address [address] [place] [address] Care Team Providers Name Role Phone Melvin Palacios MD Primary Care Provider Encounter Details Date Type Department Care Team Description 03/17/2008 [facility] Tobi West NOT YET Clinic [place] ZENON Maddox DEFINED (Primary Dx) [address] [place] [address] [phone] Social History Tobacco Use Types Packs/Day Years Used Date Smoking Tobacco: Former Alcohol Use Standard Drinks/Week Comments Yes 0 (1 standard drink = 0.6 oz pure alcoho l) social Sex Assigned at Date Recorded Not on file documented as of this encounter Plan of Treatment Not on filedocumented as of this encounter Procedures Procedure Name Priority Date/Time Associated Diagnosis Comme [facility] X-RAY ABDOMEN AP VIEW (KUB) Routine 03/17/2008 DIAGNOSIS NOT YET DEFINED documented in this encounter Results X-RAY ABDOMEN 1 VW (03/17/2008) Anatomical Region Laterality Modality Other Narrative This result has an attachment that is no t available. Tobi [place] PA-C GENERAL IMAGING documented in this encounter Visit Diagnoses Diagnosis DIAGNOSIS NOT YET DEFINED - Primary documented in this encounter Care Teams Auto Collision Repair Instructor Relationship Specialty Start Date End Date Melvin Palacios MD PCP - General 06/22/99 09/20/10 [address] [id number] documented as of this encounter
--- OUTSIDE RECORDS SUMMARY | 2022-04-30 09:40 | XMS_ITS | Encounter Summary ---
:1975 Author Organization [place] Address [address] [place] [address] Care Team Providers Name Role Phone Melvin Palacios MD Primary Care Provider Encounter Details Date Type Department Care Team Description 04/01/2007 Abstract M [facility] Abstract, Provider Asha falcon [employer] [facility] [place] [address] [place] [address] Social History Tobacco Use Types Packs/Day Years [...] Abstract LAB - HIM EXTERNAL RESULT TSH [01930.001] (04/01/2007) P athologist Signature TSH 2.56@ mcU/mL MIS[facility] Provider Abstract LABORATORY Performing Organization Address [facility]/ZIP [facility] Phon e Number MIS[facility] GLUCOSE [[id number]] (04/01/2007) P athologist Signature Glucose 77@ mg/dL MISYS Provider Abstract LABORATORY Performing Organization Address [facility] Phon e Number [facility] TRIGLYCERIDES [[id number]] (04/01/2007) P athologist Signature Triglycerides 113@ mg/dL MISYS Provider Abstract LABORATORY Performing Organization Address [facility] Phon e Number M[facility]YS HDL CHOLESTEROL [[id number]] (04/01/2007) P athologist Signature HDL Cholesterol 46@ mg/dL MISYS Provider Abstract LABORATORY Performing Organization Address [facility] Phon e Number M[facility] LDL-CHOLESTEROL [[id number]] (04/01/2007) P athologist Signature LDL Cholesterol 66@ mg/dL MISYS Calculated Provider Abstract LABORATORY Performing Organization Address [facility] Phon e Number [facility] CHOLESTEROL [[id number]] (04/01/2007) P athologist Signature Cholesterol 135@ 115 - 199 MIS[facility] mg/dL Provider Abstract LABORATORY Performing Organization Address [facility] Phon e Number MISYS documented in this encounter Visit Diagnoses Diagnosis DIAGNOSIS NOT YET DEFINED - Primary documented in this encounter Care Teams Air Bag Curer Relationship Specialty Start Date End Date Melvin Palacios MD PCP - General 06/22/99 09/20/10 [address] [phone] documented as of this encounter
--- OUTSIDE RECORDS SUMMARY | 2022-04-30 09:40 | XMS_ITS | Encounter Summary ---
:1975 Author Organization [place] Address [address] [place] [address] Care Team Providers Name Role Phone Melvin Palacios MD Primary Care Provider Reason for Referral Referral not Required - Closed Specialty Diagnoses / Procedures Referred By Contact Refer red To Contact Diagnoses Back pain without radiation Aleksandra Jimenez [employer] PA-C MED [facility] [address] [place] [phone] Fax: Referral ID Status Reason Start Date Expiration Date Visits Requ ested Visits Authorized [id number] Closed 11/23/2007 06/08/2011 1 1 Encounter Details Date Type Department Care Team Description 11/23/2007 Orders Only M [facility] [place], Back Pain without Clinic [place] PA-C Radiation (Primary Dx) [facility] IC [address] [place] [address] [phone] Social History Tobacco Use Types Packs/Day Years [...] unspecified documented in this encounter Care Teams Stonecutter Hand Relationship Specialty Start Date End Date Melvin Palacios MD PCP - General 06/22/99 09/20/10 [address] [id number] documented as of this encounter
--- OUTSIDE RECORDS SUMMARY | 2022-04-30 09:40 | XMS_ITS | Encounter Summary ---
:1975 Author Organization [place] Address [address] [place] [address] Care Team Providers Name Role Phone Melvin Palacios MD Primary Care Provider Encounter Details Date Type Department Care Team Description 07/27/2007 Orders Only [facility] Barbara, MIGRAINE N OS W/O MENTN Clinic [place] ZENON [place] INTRACTABLE (Primary [facility] IC Dx) [address] [place] [address] [place] [phone] Social History Tobacco Use Types Packs/Day Years Used Date Smoking Tobacco: Former Alcohol Use Standard Drinks/Week Comments Yes 0 (1 standard drink = 0.6 oz pure alcoho l) social Sex Assigned at Date Recorded Not on file documented as of this encounter Progress Notes Aleksandra Jimenez - 07/27/2007 11:32 AM CST Dariana with migraine started this morning. Will give imitrex shot now PAGE DEVELOPER documented in this encounter Plan of Treatment Not on filedocumented as of this encounter Visit Diagnoses Diagnosis Migraine, unspecified, without mention o f intractable migraine without mention of status migrainosus - Primary documented in this encounter Care Teams Textile Conservator Relationship Specialty Start Date End Date Melvin Palacios MD PCP - General 06/22/99 09/20/10 [address] [id number] documented as of this encounter
--- OUTSIDE RECORDS SUMMARY | 2022-04-30 09:40 | XMS_ITS | Encounter Summary ---
:1975 Author Organization [place] Address [address] [place] [address] Care Team Providers Name Role Phone Melvin Palacios MD Primary Care Provider Reason for Referral Referral not Required - Closed Specialty Diagnoses / Procedures Referred By Contact Refer red To Contact Diagnoses Anxiety state, unspecified Backache, unspecified Melvin Palacios MD PAIN MANAGEMENT & [address] [place] [address] [address] [facility] [address] SONJA SWIFT [phone] Phone: Referral ID Status Reason Start Date Expiration Date Visits Requ ested Visits Authorized [id number] Closed 03/18/2007 06/08/2011 1 1 Reason for Visit Reason Comments Anxiety usually in pm- pt feels lik e she's having anxiety attacks- also some back pain Encounter Details Date Type Department Care Team Description 03/18/[address] [facility] Melvin Palacios MD ANXIETY STATE NOS (Primary Dx); Clinic [place] [address] BACKACHE NOS [address] [place], [place] [address] [phone] Social History Tobacco Use Types Packs/Day Years [...] mg starter pack given #42, lot # [id number] exp 11/15 42 0 ??? LUNESTA 3 MG OR TABS Oral 1 TABLET AT BEDTIME [id number] EXP 10/14 10 0 ROS: C: NEGATIVE [...] unspecified documented in this encounter Care Teams Flux Core Welder Relationship Specialty Start Date End Date Melvin Palacios MD PCP - General 06/22/99 09/20/10 [address] [address] documented as of this encounter
--- OUTSIDE RECORDS SUMMARY | 2022-04-30 09:40 | XMS_ITS | Encounter Summary ---
:1975 Author Organization [place] Address [address] [place] [address]. [place] [address] Care Team Providers Name Role Phone Melvin Palacios MD Primary Care Provider Reason for Visit Reason Comments Depression FU on Depression meds - hasn 't noticed a lot of change. Seems to be a little bit more relaxed. Encounter Details Date Type Department Care Team Description 10/15/2007 Office Visit [facility] Tobi West DEPRESSYobani VE DISORDER NEC; Clinic [place] ZENON Maddox GENERALIZED ANXIETY DIS [address] [place] [phone] Social History Tobacco Use Types Packs/Day Years [...] disorder documented in this encounter Care Teams Lighting Specialist Relationship Specialty Start Date End Date Melvin Palacios MD PCP - General 06/22/99 09/20/10 [address] [address] documented as of this encounter
--- OUTSIDE RECORDS SUMMARY | 2022-04-30 09:40 | XMS_ITS | Encounter Summary ---
:1975 Author Organization [place] Address [address] [place] [address]. [place] [address] Care Team Providers Name Role Phone Melvin Palacios MD Primary Care Provider Encounter Details Date Type Department Care Team Description 08/11/2007 Telephone [facility] Tobi West[phone] [place] [address] (Wo rk) Social History Tobacco Use Types Packs/Day Years Used Date Smoking Tobacco: Former Alcohol Use Standard Drinks/Week Comments Yes 0 (1 standard drink = 0.6 oz pure alcoho l) social Sex Assigned at Date Recorded Not on file documented as of this encounter Miscellaneous Notes Telephone Encounter - Librado Yip - 08/11/2007 1:54 PM CST Pt requesting sign up for [employer], form filled out and sent to abstracting. 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
--- OUTSIDE RECORDS SUMMARY | 2022-04-30 09:40 | XMS_ITS | Encounter Summary ---
:1975 Author Organization [place] Address [address] [place] [address] Care Team Providers Name Role Phone Melvin Palacios MD Primary Care Provider Reason for Visit Reason Comments Consult discuss bladder concerns - b ladder leaking Encounter Details Date Type Department Care Team Description 2007 Office Visit [facility] Harris Jung, Stress Incontinence - Clinic [place] BANERJEE Female (Primary Dx) [address] [address] [facility] 100 131 160 [place], [place] [phone] Social History Tobacco Use Types Packs/Day Years [...] MG OR TABS 1 TABLET AT BEDTIME [id number] EXP 10/14 VITALS: BP 120/74 Pulse 72 [...] incontinence documented in this encounter Care Teams Professor Of Exercise Science Relationship Specialty Start Date End Date Melvin Palacios MD PCP - General 06/22/99 09/20/10 [address] [address] documented as of this encounter
--- OUTSIDE RECORDS SUMMARY | 2022-04-30 09:40 | XMS_ITS | Encounter Summary ---
:1975 Author Organization [place] Address [address] [place] [address] Care Team Providers Name Role Phone Melvin Palacios MD Primary Care Provider Encounter Details Date Type Department Care Team Description 11/16/2007 Telephone [facility] Gurmeet Jimenez, [place] ZENON [address] [facility], [email or web address] MAY O [facility] [address] [place] [address] [place] [address] (Wo rk) Social History Tobacco Use [...] Procedure Name Priority Date/Time Associated Diagnosis Comme [facility] MRI LUMBAR SPINE Routine 11/20/2007 5:25 [...] unspecified documented in this encounter Care Teams Chain Tender Relationship Specialty Start Date End Date Melvin Palacios MD PCP - General 06/22/99 09/20/10 [address] [address] documented as of this encounter
--- OUTSIDE RECORDS SUMMARY | 2022-04-30 09:40 | XMS_ITS | Encounter Summary ---
:1975 Author Organization [place] Address [address] [place] [address]. [place] [address] Care Team Providers Name Role Phone Melvin Palacios MD Primary Care Provider Reason for Visit Reason Onset Date Comments Refill Request 10/08/2007 Encounter Details Date Type Department Care Team Description 10/08/2007 Refill [facility] Tobi West, Refill Request [address] [phone] [place] [address] (Wo rk) Social History Tobacco [...] disorder documented in this encounter Care Teams Microsoft Access Developer Relationship Specialty Start Date End Date Melvin Palacios MD PCP - General 06/22/99 09/20/10 [address] [address] documented as of this encounter
--- OUTSIDE RECORDS SUMMARY | 2022-04-30 09:40 | XMS_ITS | Encounter Summary ---
:1975 Author Organization [place] Address [address] [place] [address] Care Team Providers Name Role Phone Melvin Palacios MD Primary Care Provider Reason for Visit Reason Comments Depression FU on Lexapro dosage Anxiety Encounter Details Date Type Department Care Team Description 01/26/2008 Office Visit [facility] Tobi West DEPRESSYobani VE DISORDER NEC; Clinic [place] ZENON Maddox ANXIETY STATE NOS [address] [facility] [address] [place] [address] [phone] Social History Tobacco Use Types Packs/Day Years [...] BP completed using cuff size large Melissa Ricks/GILL BOX TENDER documented in this encounter Plan of Treatment Not on filedocumented as of this encounter Visit Diagnoses Diagnosis DEPRESSIVE DISORDER NEC Depressive disorder, not elsewhere class ified ANXIETY STATE NOS Anxiety state, unspecified documented in this encounter Care Teams Nursery Rn Relationship Specialty Start Date End Date Melvin Palacios MD PCP - General 06/22/99 09/20/10 [address] [address] documented as of this encounter
--- OUTSIDE RECORDS SUMMARY | 2022-04-30 09:40 | XMS_ITS | Encounter Summary ---
:1975 Author Organization [place] Address [address] [place] [address]. [place] [address] Care Team Providers Name Role Phone Melvin Palacios MD Primary Care Provider Encounter Details Date Type Department Care Team Description 11/09/2007 Telephone [facility] Gurmeet Jimenez , [place] ZENON [address] [facility], [facility] [address] [place] [address] [place] [address] (Wo rk) Social History [...] unspecified documented in this encounter Care Teams Scheduling Coordinator Relationship Specialty Start Date End Date Melvin Palacios MD PCP - General 06/22/99 09/20/10 [address] [address] documented as of this encounter
--- OUTSIDE RECORDS SUMMARY | 2022-04-30 09:40 | XMS_ITS | Encounter Summary ---
:1975 Author Organization [place] Address [address] [place] [address] Care Team Providers Name Role Phone Melvin Palacios MD Primary Care Provider Reason for Visit Reason Onset Date Comments Refill Request 01/05/2008 XANAX Encounter Details Date Type Department Care Team Description 01/05/2008 Refill [facility] Zena Palacios MD Refill Request (XANAX) [address] [place] [address] [phone] Social History Tobacco Use Types Packs/Day Years [...] FILL DATE: 10/28/07 QTY: 30 Camilo Hammonds COUNTS INCLUDE 234 BEDS AT THE [facility] documented in this encounter Plan of Treatment Not on filedocumented as of this encounter Visit Diagnoses Diagnosis Anxiety state, unspecified documented in this encounter Care Teams Apparel Trimmings Sales Representative Relationship Specialty Start Date End Date Melvin Palacios MD PCP - General 06/22/99 09/20/10 [address] [address] documented as of this encounter
--- OUTSIDE RECORDS SUMMARY | 2022-04-30 09:40 | XMS_ITS | Encounter Summary ---
:1975 Author Organization [place] Address [address] [place] [address] Care Team Providers Name Role Phone Melvin Palacios MD Primary Care Provider Reason for Visit Reason Onset Date Comments Nurse Advice Line 03/02/2008 celexa Encounter Details Date Type Department Care Team Description 03/02/2008 [facility] Melvin Palacios MD Nurse Advice Line Clinic [place] [address] (celexa) [address] [facility] [address] [phone] (Wo rk) Social History Tobacco Use Types [...] - 03/02/2008 2:13 PM CDT Message from [place]: Original authorizing provider: Tobi Barber PA-Csa Vishal [...] unspecified documented in this encounter Care Teams Stamp Machine Servicer Relationship Specialty Start Date End Date Melvin Palacios MD PCP - General 06/22/99 09/20/10 [address] [address] documented as of this encounter
--- OUTSIDE RECORDS SUMMARY | 2022-04-30 09:40 | XMS_ITS | Encounter Summary ---
:1975 Author Organization [place] Address [address] [place] [address] Care Team Providers Name Role Phone Melvin Palacios MD Primary Care Provider Reason for Visit Reason Onset Date Comments Refill Request 09/10/2007 pt requesting sample s please Encounter Details Date Type Department Care Team Description 09/10/2007 Refill [facility] Melvin Palacios MD Refill Request (pt Clinic [place] [address] requesting samples [address] [facility] please) [place] [phone] [phone] Social History Tobacco Use Types Packs/Day Years [...] tabs daily, can you please authorize,samples at [facility] Felicia Mcintyre/GUY documented in this encounter Plan of Treatment Not on filedocumented as of this encounter Visit Diagnoses Diagnosis Depressive disorder, not elsewhere class ified Generalized anxiety disorder documented in this encounter Care Teams Inbound Sales Consultant Relationship Specialty Start Date End Date Melvin Palacios MD PCP - General 06/22/99 09/20/10 [address] [address] documented as of this encounter
--- OUTSIDE RECORDS SUMMARY | 2022-04-30 09:40 | XMS_ITS | Encounter Summary ---
:1975 Author Organization [place] Address [address] [place] [address] Care Team Providers Name Role Phone Melvin Palacios MD Primary Care Provider Esmer Roland MD Primary Care Provider [phone] Yony Garcia PA-C Primary Care Provider [phone] Yony Garcia PA-C Unavailable [phone] Erik Rivas Primary Care Provider Yony Garcia PA-C Unavailable [phone] Reason for Visit Reason Onset Date Comments Refill Request 02/16/2008 Lunesta Encounter Details Date Type Department Care Team Description 02/16/[address] [facility] Melvin Palacios MD Refill Request Clinic [place] [address] [place] [address] (Lunesta) [address] [place] [address] [place] [address] [phone] (Wo rk) Social History Tobacco Use Types [...] - 02/16/2008 11:01 AM CDT Message from [place]: Original authorizing provider: Tobi Barber PA-C Dariana Osman would like a refill of the following medications: LUNESTA 3 MG OR TABS [Tobi Barber PA-C] Preferred pharmacy: [facility] Comment: I have been using [...] unspecified documented in this encounter Care Teams Carpet Installation Specialist Relationship Specialty Start Date End Date Melvin Palacios MD PCP - General 06/22/99 09/20/10 [address] [place] [address] Esmer Roland, PCP - General Family Practice 09/21/10 01/29/17 Yony Garcia, PCP - General Physician Ecosystem Ecology Professor - 01/30/17 07/23/18 PA-C Medical Yony Garcia, PCP - Assigned PCP 09/01/16 08/11/18 PA-C [address]3431 SON[address] KRAUSE [address] Erik Rivas PCP - General Family Practice 07/24/[address] [address] Yony Garcia, Assigned PCP 09/01/16 PA-C [address] S[address]USE [phone] documented as of this encounter
--- OUTSIDE RECORDS SUMMARY | 2022-04-30 09:40 | XMS_ITS | Encounter Summary ---
:1975 Author Organization [place] Address [address] [place] [address] Care Team Providers Name Role Phone Melvin Palacios MD Primary Care Provider Reason for Visit Reason Onset Date Comments Refill Request 08/04/2007 LEXAPRO Encounter Details Date Type Department Care Team Description 08/04/2007 Refill [facility] Melvin Palacios MD Refill Request (LEXAPRO) Clinic [address] [address] [phone] Social History Tobacco Use Types Packs/Day Years [...] 03-18-07 Ok'd PSO Maricarmen Geller, RN, BSN R TAKERS SUPERVISOR Telephone Encounter - Venita Dowell - 08/04/2007 2:23 PM CST LAST FILL DATE: 06/24/2007 LAST QTY: 30 VENITA FVCR RX R TAKERS SUPERVISOR documented in this encounter Plan of Treatment Not on filedocumented as of this encounter Visit Diagnoses Diagnosis Depressive disorder, not elsewhere class ified Generalized anxiety disorder documented in this encounter Care Teams Coal Handler Relationship Specialty Start Date End Date Melvin Palacios MD PCP - General 06/22/99 09/20/10 [address] [address] documented as of this encounter
--- OUTSIDE RECORDS SUMMARY | 2022-04-30 09:40 | XMS_ITS | Encounter Summary ---
:1975 Author Organization [facility] Address [address] [place] [address] Care Team Providers Name Role Phone Melvin Palacios MD Primary Care Provider Reason for Visit Reason Onset Date Comments Formulary Issue 02/17/2008 LUNESTA 3MG Encounter Details Date Type Department Care Team Description 02/17/2008 Telephone [facility] Melvin Palacios MD Formulary Issue Clinic [place] [address] (LUNESTA 3MG) [address] [place] [phone] (Wo rk) Social History Tobacco Use Types [...] Awaiting Approval and/or Denial Note. Sonny Bowman PAPER BAG INSPECTOR Telephone Encounter - Laine Lemus - 02/18/2008 3:25 PM CDT PA faxed to [facility] Lemus CMA Telephone Encounter - Kristine Bermudez - 02/17/2008 1:03 PM CDT PA NEEDED ON: LUNESTA 3MG INS IS: [facility] ONE (FAMILY RESOURCE COORDINATOR) PHONE # IS: ID# IS: [id number] PLEASE LET US KNOW WHEN PA IS EITHER GRANTED OR DENIED. THANK YOU. KRISTINE BERMUDEZ FV CR RX documented in this encounter Plan of Treatment Not on filedocumented as of this encounter Visit Diagnoses Diagnosis Depressive disorder, not elsewhere class ified Insomnia Insomnia, unspecified documented in this encounter Care Teams Tire Manager Relationship Specialty Start Date End Date Melvin Palacios MD PCP - General 06/22/99 09/20/10 [address] [address] documented as of this encounter
--- OUTSIDE RECORDS SUMMARY | 2022-04-30 09:40 | XMS_ITS | Encounter Summary ---
:1975 Author Organization [place] Address [address] [place] [address] Care Team Providers Name Role Phone Melvin Palacios MD Primary Care Provider Reason for Visit Reason Comments Derm Problem Encounter Details Date Type Department Care Team Description 01/19/2008 Office Visit [facility] Thomas Jimenezister of Foot without Clinic [place] PA-C Infection (Primary Dx) [facility] [address] [place], [place] [phone] Social History Tobacco Use Types Packs/Day [...] OR TABS Oral 1 TABLET AT BEDTIME [id number] EXP 10/14 10 0 Allergies Allergen Reactions [...] infection documented in this encounter Care Teams Fitter Tacker Relationship Specialty Start Date End Date Melvin Palacios MD PCP - General 06/22/99 09/20/10 [address] [address] documented as of this encounter
--- OUTSIDE RECORDS SUMMARY | 2022-04-30 09:40 | XMS_ITS | Encounter Summary ---
:1975 Author Organization [place] Address [address] [place] [address] Care Team Providers Name Role Phone Melvin Palacios MD Primary Care Provider Reason for Visit Reason Comments Imm/Inj Injection. Melissa Nuñez [facility] Encounter Details Date Type Department Care Team Description 07/27/2007 Allied Health/Nurse [facility] Imm /Inj (Injection. Visit Clinic [place] Melissa Nuñez [facility]) [facility], [address] [place] [address] Social History Tobacco Use Types [...] Headache documented in this encounter Care Teams Fruit Peeler Relationship Specialty Start Date End Date Melvin Palacios MD PCP - General 06/22/99 09/20/10 [address] [address] documented as of this encounter
--- OUTSIDE RECORDS SUMMARY | 2022-04-30 09:40 | XMS_ITS | Encounter Summary ---
:1975 Author Organization [place] Address [address] [place] [address] Care Team Providers Name Role Phone Melvin Palacios MD Primary Care Provider Reason for Visit Reason Comments Cough x 4 wks- also would like to have xanax refilled Encounter Details Date Type Department Care Team Description 06/03/2007 Office Visit [facility] Melvin Palacios MD ANXIETY STATE NOS; Clinic [address] ACUTE BRONCHITIS; [address] [place] [address] [place] [address] [phone] (Wo rk) Social History Tobacco Use Types Packs/Day Years Used Date Smoking Tobacco: Former Alcohol Use Standard Drinks/Week Comments Yes 0 (1 standard drink = 0.6 oz pure alcoho l) social Sex Assigned at Date Recorded Not on file documented as of this encounter Last Filed Vital Signs Vital Sign Reading Time Taken Comments Blood Pressure 102/72 06/03/2007 10:00 AM GREEN MARKETING SPECIALIST Pulse - - Temperature 37 ??C (98.6 ??F) 06/03/2007 10:00 AM GREEN MARKETING SPECIALIST Respiratory Rate - - Oxygen Saturation - - Inhaled Oxygen Concentration - - Weight 78 kg (172 lb) 06/03/2007 10:00 AM GREEN MARKETING SPECIALIST Height 167.6 cm (5' 6) 06/03/2007 10:00 AM GREEN MARKETING SPECIALIST Body Mass Index 27.76 06/03/2007 10:00 AM GREEN MARKETING SPECIALIST documented in this encounter Progress Notes [...] worsen or fail to improve as anticipated. N MARKETING SPECIALIST documented in this encounter Nursing Notes 06/03/2007 [...] bronchospasm documented in this encounter Care Teams Lithographers Printer Relationship Specialty Start Date End Date Melvin Palacios MD PCP - General 06/22/99 09/20/10 [address] [address] documented as of this encounter
--- OUTSIDE RECORDS SUMMARY | 2022-04-30 09:40 | XMS_ITS | Encounter Summary ---
:1975 Author Organization [place] Address [address] [place] [address] Care Team Providers Name Role Phone Melvin Palacios MD Primary Care Provider Encounter Details Date Type Department Care Team Description 03/17/2008 Results Only [facility] Gurmeet Jimenez , Hospital Results PA-C [facility] [address] [place] [address] (Wo rk) Social History Tobacco [...] on filedocumented in this encounter Care Teams Blender Machine Operator Relationship Specialty Start Date End Date Melvin Palacios MD PCP - General 06/22/99 09/20/10 [address] [address] documented as of this encounter
--- OUTSIDE RECORDS SUMMARY | 2022-04-30 09:41 | XMS_ITS | Encounter Summary ---
:1975 Author Organization [facility] Address [address] [place] [address] Care Team Providers Name Role Phone Melvin Paalcios MD Primary Care Provider Encounter Details Date Type Department Care Team Description 02/18/2006 Historic Results [facility] Jana Palacios MD [place] [address] [place] [address] (W ork) [address] [phone] Social History Tobacco Use Types Packs/Day Years [...] At [facility] Range Method Time Signature Specimen Cervical MISYS Description Chlamydia Negative for C. MISYS Trachomatis PCR trachomatis rRNA by robot technician mediated amplification. Comment: A negative result by robot technician medi ated amplification does not preclude [...] Neisseria gonorrhoeae PCR (02/18/2006 7:00 PM CDT) [facility] Method Time Signature Specimen Cervical MISYS Descrip N Gonorrhea Negative for N. MISYS PCR gonorrhoeae rRNA by robot technician mediated amplification. Comment: A negative result by robot technician medi ated amplification does not preclude [...] MISYS Wet prep (02/18/2006 7:00 PM CDT) [facility] Method Time Signature Specimen Vagina MISYS Description Micro Report FINAL MISYS Status [id number] Wet Prep Many PMNs MISYS seen Comment: [...] differential and platelet (02/18/2006 6:45 PM CDT) [facility] gist Method Time Signature MCV 90 [...] BLOOD ORDERABLES Performing Organization Address City/[facility] Code Phon e Number MISYS HCG qualitative (02/18/2006 6:45 PM CDT) [facility] Signature HCG Qualitative Negative NEG MISYS Serum Specimen Anatomical Collection Method Collection Time Receive d Time (Source) Location / / Volume Laterality 02/18/2006 6:45 PM 6 6:36 CDT PM CDT Harris James MD LAB - BLOOD ORDERABLES Performing Organization Address City/State/ZIP Code Phon e Number MISYS (ABNORMAL) Routine UA with microscopic (02/18/2006 6:13 PM CDT) [employer] Method Time Signature Source Midstream MISYS Urine Color Urine Yellow MISYS Appearance Urine Clear MISYS Glucose Urine Negative NEG mg/dL MISYS Bilirubin Urine Negative NEG MISYS Ketones Urine Negative NEG mg/dL MISYS Specific [facility] 1.018 1.003 - MISYS Urine 1.035 Blood [...] URINE ORDERABLES Performing Organization Address City/[facility]/ZIP Code Phon e Number MISYS HCG qualitative urine (02/18/2006 6:13 PM CDT) P athologist Signature HCG Qual Urine Negative NEG MISYS Specimen Anatomical Collection Method Collection Time Receive d Time (Source) Location / / Volume Laterality 02/18/2006 6:13 PM 6 6:13 CDT PM CDT Harris James MD LAB - URINE ORDERABLES Performing Organization Address City/[facility]/ZIP Code Phon e Number MISYS documented in this encounter Visit Diagnoses Not on filedocumented in this encounter Care Teams Senior Customer Service Representative Relationship Specialty Start Date End Date Melvin Palacios MD PCP - General 06/22/99 09/20/10 [address] [address] documented as of this encounter
--- OUTSIDE RECORDS SUMMARY | 2022-04-30 09:41 | XMS_ITS | Encounter Summary ---
:1975 Author Organization [place] Address [address] [place] [address] Care Team Providers Name Role Phone Melvin Palacios MD Primary Care Provider Reason for Visit Reason Onset Date Comments Refill Request 06/13/2005 effexor xr Encounter Details Date Type Department Care Team Description 06/13/2005 Refill [facility] [place] efill Request (effexor [place] ZENON Maddox xr) [address] [place] [phone] (Wo rk) Social History Tobacco Use Types [...] Refill:05-10-05 refill ok'd PSO. Maricarmen Geller RN TING GALLERY OPERATOR documented in this encounter Plan of Treatment Not on filedocumented as of this encounter Visit Diagnoses Diagnosis Depressive disorder, not elsewhere class ified documented in this encounter Care Teams Wound Care Coordinator Relationship Specialty Start Date End Date Melvin Palacios MD PCP - General 06/22/99 09/20/10 [address] [address] documented as of this encounter
--- OUTSIDE RECORDS SUMMARY | 2022-04-30 09:41 | XMS_ITS | Encounter Summary ---
:1975 Author Organization [place] Address [address] [place] [address] Care Team Providers Name Role Phone Melvin Palacios MD Primary Care Provider Encounter Details Date Type Department Care Team Description 08/21/2006 Historic Results INTERFACED REPORT Paul Zacarias [place] [address] Social History Tobacco Use Types Packs/Day Years [...] Performing Organization Address City/State/[facility] [place] Phon e Number MISYS (ABNORMAL) Routine UA with microscopic (08/21/2006 9:58 PM CDT) Component Value Ref Test Analysis Performed At [facility] Range Method Time Signature Source Unspecified MISYS Urine Color Urine Straw MISYS Appearance Urine Clear MISYS Glucose Urine Negative NEG MISYS mg/dL Bilirubin Urine Negative NEG MISYS Ketones Urine Negative NEG MISYS mg/dL Specific Emerson 1.001 (L) 1.003 - MISYS Urine 1.035 [...] LAB - URINE ORDERABLES Performing Organization Address City/[facility] Phon e Number MISYS documented in this encounter Visit Diagnoses Not on filedocumented in this encounter Care Teams Washroom Operator Relationship Specialty Start Date End Date Melvin Palacios MD PCP - General 06/22/99 09/20/10 [address] [id number] documented as of this encounter
--- OUTSIDE RECORDS SUMMARY | 2022-04-30 09:41 | XMS_ITS | Encounter Summary ---
:1975 Author Organization [place] Address [address] [place] [address] Care Team Providers Name Role Phone Melvin Palacios MD Primary Care Provider Reason for Visit Reason Comments Consult biten by becky leigh a.mCasper at [facility] on right hand and elbow Encounter Details Date Type Department Care Team Description 03/07/2006 Office Visit [facility] Melvin Palacios MD ENDOMETRIOSIS NOS (Primary Dx); Clinic [place] [address] ANIMAL BITE NEC [address] [place], [place] SON[place] KRUEGER [phone] Social History Tobacco Use Types Packs/Day Years [...] by 13 week old (nonwild) ferret at [facility] one hour ago. Td is out [...] - biten by ferret this a.m. at [facility] on right hand and elbow [...] arthropod documented in this encounter Care Teams Assistant Brand Manager Relationship Specialty Start Date End Date Melvin Palacios MD PCP - General 06/22/99 09/20/10 [address] [address] documented as of this encounter
--- OUTSIDE RECORDS SUMMARY | 2022-04-30 09:41 | XMS_ITS | Encounter Summary ---
:1975 Author Organization [place] Address [address] [place] [address] Care Team Providers Name Role Phone Melvin Palacios MD Primary Care Provider Encounter Details Date Type Department Care Team Description 02/18/2006 Results Only [facility] Harris James MD Hospital Results [facility] [address] [place], [place] [address] (Wo rk) Social History [...] on filedocumented in this encounter Care Teams Harness Tier Relationship Specialty Start Date End Date Melvin Palacios MD PCP - General 06/22/99 09/20/10 [address] [id number] documented as of this encounter
--- OUTSIDE RECORDS SUMMARY | 2022-04-30 09:41 | XMS_ITS | Encounter Summary ---
:1975 Author Organization [place] Address [address] [place] [address] Care Team Providers Name Role Phone Melvin Palacios MD Primary Care Provider Reason for Visit Reason Onset Date Comments Medication Request 03/25/2006 lexapro needed Encounter Details Date Type Department Care Team Description [facility] [place] ZENON Maddox (lexapro needed) [address] [place] [phone] [phone] Social History Tobacco Use Types Packs/Day Years [...] have bagged up samples for her to orange picker machine operator and left them with educational technology specialist. Karol Avalos LPN Telephone Encounter - Hiwot Avalos - 03/25/2006 9:04 AM CDT Staff Message copied by HIWOT AVALOS on 03/25/2006 at 9:04 AM ------ Message from: LE TYSON Created: 03/25/2006 at 8:49 AM Regarding: marci Dariana would like more samples of lexapro or a rx sent to [facility] she has enougt for today any questions pls call [phone] thanks documented in this encounter Plan of Treatment Not on filedocumented as of this encounter Visit Diagnoses Diagnosis Adjustment disorder with depressed mood Generalized anxiety disorder Depressive disorder, not elsewhere class ified documented in this encounter Care Teams Millwright Apprentice Relationship Specialty Start Date End Date Melvin Palacios MD PCP - General 06/22/99 09/20/10 [address] [id number] documented as of this encounter
--- OUTSIDE RECORDS SUMMARY | 2022-04-30 09:41 | XMS_ITS | Encounter Summary ---
:1975 Author Organization [place] Address [address] [place] [address]. [place] [address] Care Team Providers Name Role Phone Melvin Paalcios MD Primary Care Provider Encounter Details Date Type Department Care Team Description 08/16/2005 Orders Only [facility] [place] NOT YET [facility] [place] ZENON Maddox DEFINED (Primary Dx) [address] [facility] [id number] [place] [phone] Social History Tobacco Use Types Packs/Day Years [...] Primary documented in this encounter Care Teams Sheet Folder Relationship Specialty Start Date End Date Melvin Palacios MD PCP - General 06/22/99 09/20/10 [address] [id number] documented as of this encounter
--- OUTSIDE RECORDS SUMMARY | 2022-04-30 09:41 | XMS_ITS | Encounter Summary ---
:1975 Author Organization [place] Address [address] [place] [address] Care Team Providers Name Role Phone Melvin Palacios MD Primary Care Provider Reason for Visit Reason Comments RECHECK pt has questions about incre asing her meds dosage Encounter Details Date Type Department Care Team Description 01/15/2006 Office Visit [facility] Melvin Palacios MD ADJUSTMENT DISORDER WITH DEPRESSED MOOD; Clinic [address] GENERALIZED ANXIETY DIS; [address] [place] [address] DEPRESSIVE DISORDER [place], [place] KR[place] [phone] Social History Tobacco Use Types Packs/Day Years [...] ified documented in this encounter Care Teams Heat Treater Apprentice Relationship Specialty Start Date End Date Melvin Palacios MD PCP - General 06/22/99 09/20/10 [address] [address] documented as of this encounter
--- OUTSIDE RECORDS SUMMARY | 2022-04-30 09:41 | XMS_ITS | Encounter Summary ---
:1975 Author Organization [place] Address [address] [place] [address] Care Team Providers Name Role Phone Melvin Palacios MD Primary Care Provider Reason for Visit Reason Comments Recheck Medication prescription needed Encounter Details Date Type Department Care Team Description 08/01/2006 Office Visit [facility] Melvin Palacios MD DEPRESSIVE DISORDER NEC; Clinic [place] [address] [place] [address] GENERALIZED ANXIETY DIS; [address] [place] [address] OTHER GENERAL SYMPTOMS [place], [place] [address] [phone] Social History Tobacco Use Types Packs/Day Years Used Date Smoking Tobacco: Former Alcohol Use Standard Drinks/Week Comments Yes 0 (1 standard drink = 0.6 oz pure alcoho l) social Sex Assigned at Date Recorded Not on file documented as of this encounter Last Filed Vital Signs Vital Sign Reading Time Taken Comments Blood Pressure 106/62 08/01/2006 9:30 AM SALON SALES CONSULTANT Pulse - - Temperature - - Respiratory Rate - - Oxygen Saturation - - Inhaled Oxygen Concentration - - Weight 76.7 kg (169 lb) 08/01/2006 9:30 AM SALON SALES CONSULTANT Height 167.6 cm (5' 6) 08/01/2006 9:30 AM SALON SALES CONSULTANT Body Mass Index 27.28 08/01/2006 9:30 AM SALON SALES CONSULTANT documented in this encounter Progress Notes Melvin [...] 2- Cold intolerance. Labs per HS orders. N SALES CONSULTANT documented in this encounter Nursing Notes 08/01/2006 [...] OTHER GENERAL Resu lts for this PLATELETS SALON SALES CONSULTANT SYMPTOMS procedure are i n the results section. HCL TSH W/FREE T4 Routine 08/01/2006 10:10 AM OTHER GENERAL Re sults for this REFLEX SALON SALES CONSULTANT SYMPTOMS procedure are i n the results section. documented in this encounter Results CBC WITH PLATELETS (08/01/2006 10:10 AM SALON SALES CONSULTANT) athologist Signature WBC 6.0 4.0 - 11.0 [place] 10e9/L [facility] RBC Count 4.47 3.8 - 5.2 [place] 10e12/L [facility] Hemoglobin 13.5 11.7 - [place] 15.7 g/dL [facility] Hematocrit 39.5 35.0 - [place] 47.0 % [facility] MCV 88 78 - 100 [place] fl [facility] MCH 30.2 26.5 - [place] 33.0 pg [facility] MCHC 34.2 32.0 - [place] 36.0 g/dL [facility] RDW 13.2 10.0 - [place] 15.0 % [facility] Platelet Count 236 150 - 450 [facility] Specimen Anatomical Collection Method Collection Time Receive d Time (Source) Location / / Volume Laterality 08/01/2006 10:10 08/01/2006 AM SALON SALES CONSULTANT 10:15 AM SALON SALES CONSULTANT Melvin Palacios MD LABORATORY Performing Organization Address City/State/ZIP Code Phon e Number [facility] [address] [place] [address] [facility] TSH W/FREE T4 REFLEX (08/01/2006 10:10 AM SALON SALES CONSULTANT) P athologist Signature TSH 1.50 0.4 - 5.0 [facility] mU/L [facility] Specimen Anatomical Collection Method Collection Time Receive d Time (Source) Location / / Volume Laterality 08/01/2006 10:10 08/01/2006 AM SALON SALES CONSULTANT 10:15 AM SALON SALES CONSULTANT Melvin Palacios MD LABORATORY Performing Organization Address City/State/ZIP Code Phon e Number [facility] [address] [place] [address] [facility] documented in this encounter Visit Diagnoses Diagnosis Depressive disorder, not elsewhere class ified Generalized anxiety disorder Other general symptoms(780.99) Other general symptoms documented in this encounter Care Teams Vp Data Relationship Specialty Start Date End Date Melvin Palacios MD PCP - General 06/22/99 09/20/10 [address] [id number] documented as of this encounter
--- OUTSIDE RECORDS SUMMARY | 2022-04-30 09:41 | XMS_ITS | Encounter Summary ---
:1975 Author Organization [place] Address [address] [place] [address] Care Team Providers Name Role Phone Melvin Palacios MD Primary Care Provider Reason for Visit Reason Onset Date Comments Refill Request 11/12/2005 lexapro samples, not due to come in for follow up for 2 months Encounter Details Date Type Department Care Team Description 11/12/2005 Refill [facility] Melvin Palacios MD Refill Request (lexapro [facility] [place] [address] samples, not due to come [address] [place] [address] in for follow up for 2 [place] [address] months) [phone] Social History Tobacco Use Types Packs/Day Years [...] 8 weeks of samples left for pt knot picker cloth at the front desk host pending approval. Karol Avalos LPN documented in this encounter Plan of Treatment Not on filedocumented as of this encounter Visit Diagnoses Diagnosis Adjustment disorder with depressed mood Generalized anxiety disorder Depressive disorder, not elsewhere class ified documented in this encounter Care Teams Blast Furnace Supervisor Relationship Specialty Start Date End Date Melvin Palacios MD PCP - General 06/22/99 09/20/10 [address] [address] documented as of this encounter
--- OUTSIDE RECORDS SUMMARY | 2022-04-30 09:41 | XMS_ITS | Encounter Summary ---
:1975 Author Organization [place] Address [address] [facility] [place] [address] Care Team Providers Name Role Phone Melvin Palacios MD Primary Care Provider Encounter Details Date Type Department Care Team Description 08/21/2006 Emergency room Devonte Zacarias [place] [address] Social History Tobacco Use Types Packs/Day Years Used Date Smoking Tobacco: Former Alcohol Use Standard Drinks/Week Comments Yes 0 (1 standard drink = 0.6 oz pure alcoho l) social Sex Assigned at Date Recorded Not on file documented as of this encounter Progress Notes Interface, Natural Resource Technician - 08/28/2006 7:31 AM CDT FINAL CHIEF [...] MD MT: [id number] Name: DARIANA VALDEZ Account: [id number] : 1975 Visit Date: 08/21/2006 Document: [id number] cc: [facility] documented in this encounter Plan of Treatment Not on filedocumented as of this encounter Visit Diagnoses Not on filedocumented in this encounter Care Teams Upper Extremity Surgeon Relationship Specialty Start Date End Date Melvin Palacios MD PCP - General 06/22/99 09/20/10 [address] [address] documented as of this encounter
--- OUTSIDE RECORDS SUMMARY | 2022-04-30 09:41 | XMS_ITS | Encounter Summary ---
:1975 Author Organization [place] Address [address] [place] [address] Care Team Providers Name Role Phone Melvin Palacios MD Primary Care Provider Encounter Details Date Type Department Care Team Description 08/21/2006 Results Only [facility] Will Zacarias, Hospital Results [place] [address] Social History Tobacco Use Types Packs/Day Years Used Date Smoking Tobacco: Former Alcohol Use Standard Drinks/Week Comments Yes 0 (1 standard drink = 0.6 oz pure alcoho l) social Sex Assigned at Date Recorded Not on file documented as of this encounter Plan of Treatment Not on filedocumented as of this encounter Procedures Procedure Name Priority Date/Time Associated Diagnosis Comme [facility] CT ABDOMEN W/O Routine 08/21/2006 11:08 PM [...] report relayed to referring physician by radiologist line construction supervisor. Will Zacarias MD SPECIAL IMAGING STUDIES documented in this encounter Visit Diagnoses Not on filedocumented in this encounter Care Teams Power Plant Operator Relationship Specialty Start Date End Date Melvin Palacios MD PCP - General 06/22/99 09/20/10 [address] [address] documented as of this encounter
--- OUTSIDE RECORDS SUMMARY | 2022-04-30 09:41 | XMS_ITS | Encounter Summary ---
:1975 Author Organization [place] Address [address] [place] [address] Care Team Providers Name Role Phone Melvin Palacios MD Primary Care Provider Reason for Visit Reason Comments RECHECK follow-up on effexpaty - nandini jones for the anxiety, fatigue during the day - very low engery, HAYES - discuss if side effects could be due to stress Encounter Details Date Type Department Care Team Description 05/28/2005 Office Visit [facility] [place] VE DISORDER NEC; [facility] [place] ZENON Maddox HEADACHE [address] [place] [phone] Social History Tobacco Use Types Packs/Day Years Used Date Smoking Tobacco: Every Day Comments: socially Alcohol Use Standard Drinks/Week Comments Yes 0 (1 standard drink = 0.6 oz pure alcoho l) social Sex Assigned at Date Recorded Not on file documented as of this encounter Last Filed Vital Signs Vital Sign Reading Time Taken Comments Blood Pressure 104/72 05/28/2005 10:30 AM PROFESSIONAL VOLLEYBALL PLAYER Pulse - - Temperature - - Respiratory Rate - - Oxygen Saturation - - Inhaled Oxygen Concentration - - Weight 71.7 kg (158 lb) 05/28/2005 10:30 AM PROFESSIONAL VOLLEYBALL PLAYER Height 170.2 cm (5' 7) 05/28/2005 10:30 AM PROFESSIONAL VOLLEYBALL PLAYER Body Mass Index 24.75 05/28/2005 10:30 AM PROFESSIONAL VOLLEYBALL PLAYER documented in this encounter Progress Notes Tobi [...] light touch good and equal bilaterally. Normal mceouk-cc-mrsm testing. Normal Rhomberg and pronator drift testing. [...] given. F/u in 1 month for recheck. ESSIONAL VOLLEYBALL PLAYER documented in this encounter Nursing Notes 05/28/2005 [...] completed using cuff size regular. Kelli Antonio, Bank And Savings Securities Trader documented in this encounter Plan of Treatment Not on filedocumented as of this encounter Visit Diagnoses Diagnosis Depressive disorder, not elsewhere class ified Headache(784.0) Headache documented in this encounter Care Teams Fire Control Technician G Relationship Specialty Start Date End Date Melvin Palacios MD PCP - General 06/22/99 09/20/10 [address] [id number] documented as of this encounter
--- OUTSIDE RECORDS SUMMARY | 2022-04-30 09:41 | XMS_ITS | Encounter Summary ---
:1975 Author Organization [place] Address [address] [place] [address] Care Team Providers Name Role Phone Melvin Palacios MD Primary Care Provider Encounter Details Date Type Department Care Team Description 08/16/2005 Emergency room Giovani Moreno [address] [place] [address] Social History Tobacco Use Types Packs/Day Years Used Date Smoking Tobacco: Every Day Comments: socially Alcohol Use Standard Drinks/Week Comments Yes 0 (1 standard drink = 0.6 oz pure alcoho l) social Sex Assigned at Date Recorded Not on file documented as of this encounter Progress Notes Interface, Deckhand Sponge Boat - 08/19/2005 6:33 AM BOILER OPERATOR HELPER FINAL CHIEF COMPLAINT: I have left flank [...] MD MT: [id number] Name: DARIANA VALDEZ Account: [id number] : 1975 Visit Date: 08/16/2005 Document: [id number] ER OPERATOR HELPER Interface, Deckhand Sponge Boat - 08/18/2005 4:15 AM BOILER OPERATOR HELPER PRELIMINARY CHIEF COMPLAINT: I have left flank [...] MD MT: [id number] Name: DARIANA VALDEZ Account: [id number] : 1975 Visit Date: 08/16/2005 Document: [id number] ER OPERATOR HELPER documented in this encounter Plan of Treatment Not on filedocumented as of this encounter Visit Diagnoses Not on filedocumented in this encounter Care Teams Director Field Services Relationship Specialty Start Date End Date Melvin Palacios MD PCP - General 06/22/99 09/20/10 [address] [address] documented as of this encounter
--- OUTSIDE RECORDS SUMMARY | 2022-04-30 09:41 | XMS_ITS | Encounter Summary ---
:1975 Author Organization [place] Address [address] [place] [address] Care Team Providers Name Role Phone Melvin Palacios MD Primary Care Provider Reason for Visit Reason Onset Date Comments Refill Request 12/11/2006 lunesta and lexapro samples Encounter Details Date Type Department Care Team Description 12/11/2006 Refill [facility] [place] efill Request (lunesta [place] ZENON Maddox and lexapro samples) [address] [place] [phone] (Wo rk) Social History Tobacco Use Types [...] disorder documented in this encounter Care Teams Director Of Sustainability Relationship Specialty Start Date End Date Melvin Palacios MD PCP - General 06/22/99 09/20/10 [address] [id number] documented as of this encounter
--- OUTSIDE RECORDS SUMMARY | 2022-04-30 09:41 | XMS_ITS | Encounter Summary ---
:1975 Author Organization [place] Address [address] 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 Nonsmoker, occasional alcohol. She had a vaginal [...] 1-2 p.o. q.4-6h. p.r.n. pain. Follow with OIL EXPELLER OPERATOR for reevaluation in the next 7 days. Return for fever, new symptoms orworse symptoms. If it is a stone, will also her strain all urine, keep stone and take to her PMD. Electronically signed on 03/16/2006 16:22 by HARRIS MCMAHAN MD MT: [id number] Name: DARIANA VALDEZ MRN: [id number] Account: [id number] : 1975 Visit Date: 02/18/2006 Document: [id number] cc: [facility] documented in this encounter Plan of Treatment Not on filedocumented as of this encounter Visit Diagnoses Not on filedocumented in this encounter Care Teams Derrick Boat Leverman Relationship Specialty Start Date End Date Melvin Palacios MD PCP - General 06/22/99 09/20/10 [address] [id number] documented as of this encounter
--- OUTSIDE RECORDS SUMMARY | 2022-04-30 09:41 | XMS_ITS | Encounter Summary ---
:1975 Author Organization [place] Address [address] [place] [address] Care Team Providers Name Role Phone Melvin Palacios MD Primary Care Provider Reason for Visit Reason Comments RECHECK nervous breakdown Encounter Details Date Type Department Care Team Description 11/01/2005 Office Visit [facility] Melvin Palacios MD DEPRESSIVE DISORDER NEC; Clinic [place] [address] ADJUSTMENT DISORDER WITH DEP RESSED MOOD [address] [place], [place] [phone] Social History Tobacco Use Types Packs/Day Years [...] mood documented in this encounter Care Teams Mineralogy Professor Relationship Specialty Start Date End Date Melvin Palacios MD PCP - General 06/22/99 09/20/10 [address] [address] documented as of this encounter
--- OUTSIDE RECORDS SUMMARY | 2022-04-30 09:41 | XMS_ITS | Encounter Summary ---
:1975 Author Organization [place] Address [address] [place] [address] Care Team Providers Name Role Phone Melvin Palacios MD Primary Care Provider Encounter Details Date Type Department Care Team Description 08/16/2005 Historic Results INTERFACED REPORT Pau Moreno [address] [place] [address] Social History Tobacco Use Types Packs/Day Years [...] STAT 08/16/2005 8:15 PM Results for this BILLING COORDINATOR procedure are i n the results section. ROUTINE UA WITH STAT 08/16/2005 8:15 PM Result s for this MICROSCOPIC BILLING COORDINATOR procedure are i n the results section. documented in this encounter Results (ABNORMAL) Routine UA with microscopic (08/16/2005 8:15 PM BILLING COORDINATOR) [facility] Method Time Signature Source Midstream MISYS Urine Color Urine Yellow MISYS Appearance Urine Clear MISYS Glucose Urine Negative NEG mg/dL MISYS Bilirubin Urine Negative NEG MISYS Ketones Urine 5 (A) NEG mg/dL MISYS Specific Grethel 1.019 1.003 - MISYS Urine 1.035 Blood [...] Volume Laterality 08/16/2005 8:15 PM 6 8:19 BILLING COORDINATOR PM BILLING COORDINATOR Giovani Robertsench LAB - URINE ORDERABLES Performing Organization Address City/[facility]/ZIP Code Phon e Number MISYS HCG qualitative urine (08/16/2005 8:15 PM BILLING COORDINATOR) P athologist Signature HCG Qual Urine Negative NEG MISYS Specimen Anatomical Collection Method Collection Time Receive d Time (Source) Location / / Volume Laterality 08/16/2005 8:15 PM 6 8:19 BILLING COORDINATOR PM BILLING COORDINATOR Giovani Moreno LAB - URINE ORDERABLES Performing Organization Address City/[facility] Phon e Number MISYS documented in this encounter Visit Diagnoses Not on filedocumented in this encounter Care Teams Event Mgr Relationship Specialty Start Date End Date Melvin Palacios MD PCP - General 06/22/99 09/20/10 [address] [id number] documented as of this encounter
--- OUTSIDE RECORDS SUMMARY | 2022-04-30 09:41 | XMS_ITS | Encounter Summary ---
:1975 Author Organization [place] Address [address] [place] [address]. [place] [address] Care Team Providers Name Role Phone Melvin Palacios MD Primary Care Provider Reason for Visit Reason Comments Depression Encounter Details Date Type Department Care Team Description 10/18/2005 Office Visit [facility] Melvin Palacios MD DEPRESSIVE DISORDER NEC; [facility] [place] [address] [place] [address] GENERALIZED ANXIETY DIS; [address] [facility] ADJUSTMENT DISORDER WITH DEPRESSED MOOD [place], [place] [facility] [place] [address] [phone] Social History Tobacco Use Types Packs/Day Years [...] mood documented in this encounter Care Teams Underwater Hunter Trapper Relationship Specialty Start Date End Date Melvin Palacios MD PCP - General 06/22/99 09/20/10 [address] [phone] documented as of this encounter
--- OUTSIDE RECORDS SUMMARY | 2022-04-30 09:41 | XMS_ITS | Encounter Summary ---
:1975 Author Organization [place] Address [address] [place] [address] Care Team Providers Name Role Phone Melvin Palacios MD Primary Care Provider Reason for Visit Reason Onset Date Comments Medication Request 04/24/2006 Lexapro samples Encounter Details Date Type Department Care Team Description 04/24/2006 Telephone [facility] Melvin Palacios MD Medication Request Clinic [place] [address] [place] (Lexapro samples) [address] [place] [phone] (Wo rk) Social History Tobacco Use Types Packs/Day Years Used Date Smoking Tobacco: Former Alcohol Use Standard Drinks/Week Comments Yes 0 (1 standard drink = 0.6 oz pure alcoho l) social Sex Assigned at Date Recorded Not on file documented as of this encounter Miscellaneous Notes Telephone Encounter - Melvin Palacios - 04/24/2006 3:43 PM CST Give lotsa samples OFF SAW OPERATOR Telephone Encounter - Stefanie Palumbo - 04/24/2006 2:57 PM CUT OFF SAW OPERATOR Staff Message copied by STEFANIE PALUMBO on 04/24/2006 at 2:57 PM ------ Message from: LE TYSON Created: 04/24/2006 at 2:13 PM Regarding: cl Dariana would like more samples of lexapro sh is all out. Pt does have appt w/ Dr Palacios on 04-28 Pls call [phone] thanks OFF SAW OPERATOR documented in this encounter Plan of Treatment Not on filedocumented as of this encounter Visit Diagnoses Not on filedocumented in this encounter Care Teams Advertising Rep Relationship Specialty Start Date End Date Melvin Palacios MD PCP - General 06/22/99 09/20/10 [address] [id number] documented as of this encounter
--- OUTSIDE RECORDS SUMMARY | 2022-04-30 09:41 | XMS_ITS | Encounter Summary ---
:1975 Author Organization [facility] Address [address] [place] [address] Care Team Providers Name Role Phone Melvin Palacios MD Primary Care Provider Reason for Visit Reason Comments Medication Request Encounter Details Date Type Department Care Team Description 03/07/2005 Office Visit [facility] Tobi Corona VE DISORDER Clinic [place] ZENON Maddox NEC (Primary Dx) [address] [address] [phone] Social History Tobacco Use Types Packs/Day Years [...] completed using cuff size: regular Karol Avalos CLOTHING BUSHELER documented in this encounter Plan of Treatment Not on filedocumented as of this encounter Visit Diagnoses Diagnosis Depressive disorder, not elsewhere class ified - Primary documented in this encounter Care Teams Panel Machine Operator Relationship Specialty Start Date End Date Melvin Palacios MD PCP - General 06/22/99 09/20/10 [address] [phone] documented as of this encounter
--- OUTSIDE RECORDS SUMMARY | 2022-04-30 09:42 | XMS_ITS | Encounter Summary ---
:1975 Author Organization [place] Address [address] [place] [address] Care Team Providers Name Role Phone Melvin Palacios MD Primary Care Provider Reason for Visit Reason Comments UTI Encounter Details Date Type Department Care Team Description 03/11/2003 Office Visit [facility] Harris Garcia DYSURIA (Primary Dx); Clinic [place] MD Otoniel SPRYOSSI SHOULDER/ARM NOS; [address] [facility] IRREGULAR MENSTRUATION [place], [place] [address] [place] [phone] [address] [place] [address] Social History Tobacco Use Types [...] HCG, QUAL URINE (03/11/2003 10:26 AM CDT) [facility] gist Method Time Signature HCG Qual Urine Positive (A) NEG [facility] Specimen Anatomical Collection Method Collection Time Receive d Time (Source) Location / / Volume Laterality 03/11/2003 10:26 03/11/2003 AM CDT 10:27 AM CDT Harris Garcia MD LABORATORY Performing Organization Address City/State/RUST Code Phon e Number [facility] [address] [place], [place] [id number] [facility] UA MICRO IF POSITIVE (03/11/2003 10:08 AM CDT) Analysis Performed At [facility] logist Time Signature Color Urine Yellow [place] Yellow [facility] Appearance Clear [place] Urine Clear [facility] Glucose Urine Negative NEG mg/dL [place] Negative [facility] Bilirubin Urine Negative NEG [place] Negative [facility] Ketones Urine Negative NEG mg/dL [place] Negative [facility] Specific 1.025 1.001 - [place] Urine 1.035 [facility] Comment: 1.025 Blood Urine Negative [facility]G [facility] Negative pH Urine 5.0 5.0 - 7.0 pH [facility] RI DGE [facility] Comment: 5.0 Protein Albumin Urine Negative NEG mg/dL [facility] Negative Urobilinogen Urine 0.2 0.2 - 1.0 EU/dL [place] IEW [facility] Comment: 0.2 Nitrite Urine Negative NEG [facility] R IDGE [facility] Negative Leukocyte Esterase Urine Negative NEG [facility] Negative Source Midstream Urine [facility] Midstream Urine Specimen Anatomical Collection Method Collection Time Receive d Time (Source) Location / / Volume Laterality 03/11/2003 10:08 03/11/2003 AM CDT 10:13 AM CDT Harris Garcia MD LABORATORY Performing Organization Address City/State/ZIP Code Phon e Number [facility] [address] [place] [address] [facility] documented in this encounter Visit Diagnoses Diagnosis Dysuria - Primary Sprain and strain of unspecified site of shoulder and upper arm Irregular menstrual cycle documented in this encounter Care Teams Cake Inspector Relationship Specialty Start Date End Date Melvin Palacios MD PCP - General 06/22/99 09/20/10 [address] [id number] documented as of this encounter
--- OUTSIDE RECORDS SUMMARY | 2022-04-30 09:42 | XMS_ITS | Encounter Summary ---
:1975 Author Organization [facility] Address [address] [place] [address] Care Team Providers Name Role Phone Melvin Palacios MD Primary Care Provider Reason for Visit Reason Comments Consult Encounter Details Date Type Department Care Team Description 03/29/2004 Office Visit [facility] [place] DEPRESSYobani VE DISORDER Clinic [place] ZENON Maddox NEC (Primary Dx) [address] [facility] [address] [place] [address] [phone] Social History Tobacco Use Types Packs/Day Years [...] Primary documented in this encounter Care Teams Firer Marine Relationship Specialty Start Date End Date Melvin Palacios MD PCP - General 06/22/99 09/20/10 [address] [id number] documented as of this encounter
--- OUTSIDE RECORDS SUMMARY | 2022-04-30 09:42 | XMS_ITS | Encounter Summary ---
:1975 Author Organization [place] Address [address] [place] [address] Care Team Providers Name Role Phone Melvin Palacios MD Primary Care Provider Encounter Details Date Type Department Care Team Description 12/17/2002 [facility] Laly Hilton EOUS Clinic [place] ENCOUNTER--DISREGARD [address] [facility] (Primary Dx) [place] [address] Social History Tobacco Use Types Packs/Day Years Used Date Smoking Tobacco: Never Assessed Sex Assigned at Date Recorded Not on file documented as of this encounter Plan of Treatment Not on filedocumented as of this encounter Visit Diagnoses Diagnosis ERRONEOUS ENCOUNTER--DISREGARD - Primary documented in this encounter Care Teams Steam Plant Records Clerk Relationship Specialty Start Date End Date Melvin Palacios MD PCP - General 06/22/99 09/20/10 [address] [phone] documented as of this encounter
--- OUTSIDE RECORDS SUMMARY | 2022-04-30 09:42 | XMS_ITS | Encounter Summary ---
:1975 Author Organization [place] Address [address] [place] [address] Care Team Providers Name Role Phone Melvin Palacios MD Primary Care Provider Encounter Details Date Type Department Care Team Description 05/15/2004 Telephone [facility] [place] [address] [place] [phone] Social History Tobacco Use Types Packs/Day Years Used Date Smoking Tobacco: Never Alcohol Use Standard Drinks/Week Comments Yes 0 (1 standard drink = 0.6 oz pure alcoho l) social Sex Assigned at Date Recorded Not on file documented as of this encounter Miscellaneous Notes Telephone Encounter - 05/15/2004 10:09 AM CHAMBER [employer] DIVISION MANAGER >> PAU Goldman May 15, 2004 10:14 [...] Prescription for Wellbutrin faxed to [facility] in [place], 300 mg. [phone] if you need to talk with her otherwise just fax this in. Needs by today if possible......tomorrow is okay too documented in this encounter Plan of Treatment Not on filedocumented as of this encounter Visit Diagnoses Diagnosis Depressive disorder, not elsewhere class ified documented in this encounter Care Teams Water Project Engineer Relationship Specialty Start Date End Date Melvin Palaicos MD PCP - General 06/22/99 09/20/10 [address] [phone] documented as of this encounter
--- OUTSIDE RECORDS SUMMARY | 2022-04-30 09:42 | XMS_ITS | Encounter Summary ---
:1975 Author Organization [place] Address [address] [place] [address]. [place] [address] Care Team Providers Name Role Phone Melvin Palacios MD Primary Care Provider Encounter Details Date Type Department Care Team Description 11/16/2003 Delivery Summary [facility] Pilar Sandy, (Per Diem Registered Nurse) Per Diem Registered Nurse [address] [facility] [address] [facility] [address] [place] [address] [place] [address] (Wo rk) Social History Tobacco [...] [id number] _ PILAR SANDY MD [place]: Document: [id number] [place], [place] Name: DARIANA VALDEZ DELIVERY SUMMARY Page 2 of 1 LCN: ASHLEY DSC: 11/18/2003 [place], [place] Name: MR#: : Admit Date: DARIANA VALDEZ [id number] 1975 11/16/2003 Doctor: PILAR SANDY MD DELIVERY SUMMARY Page 1 of 1 documented in this encounter Plan of Treatment Not on filedocumented as of this encounter Visit Diagnoses Not on filedocumented in this encounter Care Teams Middle School Teacher Relationship Specialty Start Date End Date Melvin Palacios MD PCP - General 06/22/99 09/20/10 [address] [phone] documented as of this encounter
--- OUTSIDE RECORDS SUMMARY | 2022-04-30 09:42 | XMS_ITS | Encounter Summary ---
:1975 Author Organization [place] Address [address] [place] [address] Care Team Providers Name Role Phone Melvin Palacios MD Primary Care Provider Reason for Visit Reason Onset Date Comments Refill Request 01/18/2005 Wellbutrin Encounter Details Date Type Department Care Team Description 01/18/2005 Refill [facility] [place] Request [place] ZENON Maddox (Wellbutrin) [address] [place] [phone] (Wo rk) Social History Tobacco Use Types [...] ified documented in this encounter Care Teams Skill Training Program Coordinator Relationship Specialty Start Date End Date Melvin Palacios MD PCP - General 06/22/99 09/20/10 [address] [phone] documented as of this encounter
--- OUTSIDE RECORDS SUMMARY | 2022-04-30 09:42 | XMS_ITS | Encounter Summary ---
:1975 Author Organization [place] Address [address] [place] [address] Care Team Providers Name Role Phone Melvin Palacios MD Primary Care Provider Reason for Visit Reason Comments RECHECK medication Refill Request Encounter Details Date Type Department Care Team Description 01/22/2005 Office Visit [facility] [place] VE DISORDER Clinic [place] ZENON Maddox [facility] (Primary Dx) [address] [address] [phone] Social History Tobacco Use Types Packs/Day Years [...] Primary documented in this encounter Care Teams Hand Collator Relationship Specialty Start Date End Date Melvin Palacios MD PCP - General 06/22/99 09/20/10 [address] [phone] documented as of this encounter
--- OUTSIDE RECORDS SUMMARY | 2022-04-30 09:42 | XMS_ITS | Encounter Summary ---
:1975 Author Organization [place] Address [address] [place] [address] Care Team Providers Name Role Phone Melvin Palacios MD Primary Care Provider Encounter Details Date Type Department Care Team Description 11/04/2002 Office Visit [facility] DINORA GNOSIS NOT YET DEFINED [place] (Primary Dx) [address] [place] [address] Social History Tobacco Use Types [...] Ref Test Analysis Performed At [facility] gist Range Method Time Signature Specimen Throat [place] Description [facility] Culture Micro No Beta [place] Streptococcus [facility] Report status FINAL [id number] [facility] Specimen Anatomical Collection Method Collection Time Receive d Time (Source) Location / / Volume Laterality 11/04/2002 9:28 AM 3 9:33 CDT AM CDT Transcripton Interface LABORATORY Performing Organization Address City/[facility]/ZIP Code Phon e Number [facility] [address] [place] [address] [facility] STREP GROUP A AG (RAPID) (11/04/2002 9:28 AM CDT) Component Value Ref Test Analysis Performed At [facility] Range Method Time Signature Specimen Throat [place] Description [facility] Rapid Strep A NEGATIVE: No Group A strepto coccal antigen detected by immunoassay, await [place] Screen culture report. [facility] Report status FINAL [id number] [facility] Specimen Anatomical Collection Method Collection Time Receive d Time (Source) Location / / Volume Laterality 11/04/2002 9:28 AM 3 9:33 CDT AM CDT Transcripton Interface LABORATORY Performing Organization Address [facility]/ZIP Code Phon e Number [facility] [address] [place] [address] [facility] documented in this encounter Visit Diagnoses Diagnosis DIAGNOSIS NOT YET DEFINED - Primary documented in this encounter Care Teams Lieutenant Fire Fighter Relationship Specialty Start Date End Date Melvin Palacios MD PCP - General 06/22/99 09/20/10 [address] [phone] documented as of this encounter
--- OUTSIDE RECORDS SUMMARY | 2022-04-30 09:42 | XMS_ITS | Encounter Summary ---
:1975 Author Organization [place] Address [address] [facility] [address] Care Team Providers Name Role Phone Melvin Palacios MD Primary Care Provider Reason for Visit Reason Comments RECHECK medication - Wellbutrin Encounter Details Date Type Department Care Team Description 05/17/2004 Office Visit [facility] [place] DEPRESSYobani VE DISORDER Clinic [place] ZENON Maddox [facility] (Primary Dx) [address] [address] [phone] Social History Tobacco Use Types Packs/Day Years Used Date Smoking Tobacco: Never Alcohol Use Standard Drinks/Week Comments Yes 0 (1 standard drink = 0.6 oz pure alcoho l) social Sex Assigned at Date Recorded Not on file documented as of this encounter Last Filed Vital Signs Vital Sign Reading Time Taken Comments Blood Pressure 110/64 05/17/2004 9:51 AM CLIENT APPLICATION SUPPORT SPECIALIST Pulse - - Temperature - - Respiratory Rate - - Oxygen Saturation - - Inhaled Oxygen Concentration - - Weight - - Height - - Body Mass Index - - documented in this encounter Progress Notes 05/17/2004 9:30 AM CLIENT APPLICATION SUPPORT SPECIALIST Dariana Osman presents to clinic today for [...] documented in this encounter Care Teams Software Quality Test Engineer Relationship Specialty Start Date End Date Melvin Palacios MD PCP - General 06/22/99 09/20/10 [address] [address] documented as of this encounter
--- OUTSIDE RECORDS SUMMARY | 2022-04-30 09:42 | XMS_ITS | Encounter Summary ---
:1975 Author Organization [facility] Address [address] [place] [address] Care Team Providers Name Role Phone Melvin Palacios MD Primary Care Provider Reason for Visit Reason Comments Imm/Inj record Encounter Details Date Type Department Care Team Description 10/18/1999 Telephone [facility]ach [facility] N Imm/Inj (record) Physicians [address] [address] Social History Tobacco Use [...] on filedocumented in this encounter Care Teams Grout Machine Operator Relationship Specialty Start Date End Date Melvin Palacios MD PCP - General 06/22/99 09/20/10 [address] [phone] documented as of this encounter
--- OUTSIDE RECORDS SUMMARY | 2022-04-30 09:42 | XMS_ITS | Encounter Summary ---
:1975 Author Organization [place] Address [address] [place] [address] Care Team Providers Name Role Phone Melvin Palacios MD Primary Care Provider Encounter Details Date Type Department Care Team Description 11/04/2002 Abstract [facility] Andreea Keita [address] [place], [place] [address] Social History Tobacco Use [...] on filedocumented in this encounter Care Teams Instructor Knitting Relationship Specialty Start Date End Date Melvin Palacios MD PCP - General 06/22/99 09/20/10 [address] [phone] documented as of this encounter
--- OUTSIDE RECORDS SUMMARY | 2022-04-30 09:42 | XMS_ITS | Encounter Summary ---
:1975 Author Organization [place] Address [address] [facility] [place] [address] Care Team Providers Name Role Phone Melvin Palacios MD Primary Care Provider Reason for Visit Reason Comments Refill Request Breanna kathleen [place] Encounter Details Date Type Department Care Team Description 02/18/2003 Refill [facility] Reed Carlos PA-C Refill Request Clinic [facility] INTEGRATIVE (Breanna kathleen [place] [address] [place] [address] [facility] [address] [facility] [phone] [place], [place] [address] (Wo rk) Social History Tobacco Use Types Packs/Day Years Used Date Smoking Tobacco: Never Assessed Sex Assigned at Date Recorded Not on file documented as of this encounter Miscellaneous Notes Telephone Encounter - 02/18/2003 11:59 PM CDT >> DAMARI BOWMAN FriFeb 18, 2003 4:24 PM notified needs appt. Nikolas Bowman CONSUMER LOAN PROCESSOR >> MELVIN PALACIOS FriFeb 18, 2003 4:14 PM needs to be seen within 1 month >> ERIKA WEBB FriFeb 18, 2003 4:02 PM >> CALL RECEIVED. Contact: LAST FILLED 01/20/03 LAST SEEN 03/15/03 Erika Webb CNA documented in this encounter Plan of Treatment Not on filedocumented as of this encounter Visit Diagnoses Not on filedocumented in this encounter Care Teams Employment Appeals Examiner Relationship Specialty Start Date End Date Melvin Palacios MD PCP - General 06/22/99 09/20/10 [address] [address] documented as of this encounter
--- OUTSIDE RECORDS SUMMARY | 2022-04-30 09:42 | XMS_ITS | Encounter Summary ---
:1975 Author Organization [place] Address [address] [place] [address]. [place] [address] Care Team Providers Name Role Phone Melvin Palacios MD Primary Care Provider Reason for Visit Reason Onset Date Comments Patient Inquiry 07/24/2004 Encounter Details Date Type Department Care Team Description 07/24/2004 Telephone [facility] Tobi West atient Inquiry [place] ZENON Maddox [address] [place] [address] [address] [id number] [phone] Social History Tobacco Use Types Packs/Day Years Used Date Smoking Tobacco: Never Alcohol Use Standard Drinks/Week Comments Yes 0 (1 standard drink = 0.6 oz pure alcoho l) social Sex Assigned at Date Recorded Not on file documented as of this encounter Miscellaneous Notes Telephone Encounter - Melissa Pickett - 07/27/2004 1:25 PM CST Pt informed. Melissa Pickett RN M AUDITOR Telephone Encounter - Tobi Beltran - 07/26/2004 8:25 PM CLAIM AUDITOR please call Dariana know that I sent 1 year rx of OrthoTriCyclen to [facility]. If she would prefer to go back to the patch for any particular reason, I would be happy to change rx. I attempted to reachher coburn, but she was unavailable. 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 Used to be on Ortho Tri Cyclen and then Ortho Evra. Is going to be coming in on Friday with her son, she said she could talk to you at this time too ifyou needed her to. Sridevi Magallon RN M AUDITOR Telephone Encounter - 07/24/2004 10:20 AM CLAIM AUDITOR Staff Message copied by PAU FRANKLIN on 07/24/2004 at 10:20 AM ------ Message from: DILLON RODAS Created: 07/24/2004 at 10:05 AM Regarding: AW-pres [phone] Wants to get a pres for regulating hormones.....ALso has a question about Wellbutrin M AUDITOR documented in this encounter Plan of Treatment Not on filedocumented as of this encounter Visit Diagnoses Diagnosis Other general counseling and advice for contraceptive management - Primary documented in this encounter Care Teams Design Maker Relationship Specialty Start Date End Date Melvin Palacios MD PCP - General 06/22/99 09/20/10 [address] [id number] documented as of this encounter
--- OUTSIDE RECORDS SUMMARY | 2022-04-30 09:42 | XMS_ITS | Encounter Summary ---
:1975 Author Organization [place] Address [address] [place] [address]. [place] [address] Care Team Providers Name Role Phone Melvin Palacios MD Primary Care Provider Reason for Visit Reason Onset Date Comments Medication Request 01/25/2004 pertussis exposure, z pack Encounter Details Date Type Department Care Team Description 01/25/[address] [facility] [place] on Request [facility] [place] ZENON aMddox (pertussis exposure[place] z [address] [address] [facility] S pack) [place] [address] [phone] Social History Tobacco Use Types Packs/Day Years [...] on filedocumented in this encounter Care Teams Human Resource Internship Relationship Specialty Start Date End Date Melvin Palacios MD PCP - General 06/22/99 09/20/10 [address] [id number] documented as of this encounter
--- OUTSIDE RECORDS SUMMARY | 2022-04-30 09:42 | XMS_ITS | Encounter Summary ---
:1975 Author Organization [place] Address [address] [facility] [place] [address] Care Team Providers Name Role Phone Melvin Palacios MD Primary Care Provider Reason for Visit Reason Onset Date Comments Patient Request 02/20/2005 Wants to switch from Wellbutrin to Effexor Slk Encounter Details Date Type Department Care Team Description 02/20/2005 Telephone [facility] Patient Request (Wants [facility] [place] ZENON Maddox to switch from [address] [place] [address] Wellbutrin to Effexor [place], [place] Slk) [phone] [phone] Social History Tobacco Use Types Packs/Day Years [...] Please call her on her cell # [phone]. Or work number [phone].Tobi Westis on vac. so I will send this to Dr. Mcguire.Esmer Cavanaugh RN. documented in this encounter Plan of Treatment Not on filedocumented as of this encounter Visit Diagnoses Diagnosis Depressive disorder, not elsewhere class ified - Primary documented in this encounter Care Teams Foil Wrapper Relationship Specialty Start Date End Date Melvin Palacios MD PCP - General 06/22/99 09/20/10 [address] [id number] documented as of this encounter
--- OUTSIDE RECORDS SUMMARY | 2022-04-30 09:42 | XMS_ITS | Encounter Summary ---
:1975 Author Organization [place] Address [address] [place] [address]. [place] [address] Care Team Providers Name Role Phone Melvin Palacios MD Primary Care Provider Reason for Visit Reason Comments Refill Request Encounter Details Date Type Department Care Team Description 03/23/2003 Refill [facility] Edilia Carlos PA-C Refill Request [address] [place], [place] [phone] Social History Tobacco Use Types Packs/Day Years Used Date Smoking Tobacco: Never Assessed Sex Assigned at Date Recorded Not on file documented as of this encounter Miscellaneous Notes Telephone Encounter - 03/23/2003 11:59 PM CDT >> EDILIA CARLOS [facility] Mar 24, 2003 4:43 PM Rx faxed. Tiff >> DAMARI Cruz Mar 23, 2003 9:46 AM >> CALL RECEIVED. Contact: Pt. is requesting to go down to 20 mg of prozac, pharmacy in place. Nikolas Bowman CMA documented in this encounter Plan of Treatment Not on filedocumented as of this encounter Visit Diagnoses Not on filedocumented in this encounter Care Teams Vacuum Frame Operator Relationship Specialty Start Date End Date Melvin Palacios MD PCP - General 06/22/99 09/20/10 [address] [id number] documented as of this encounter
--- OUTSIDE RECORDS SUMMARY | 2022-04-30 09:42 | XMS_ITS | Encounter Summary ---
:1975 Author Organization [place] Address [address] [facility] [place] [address] Care Team Providers Name Role Phone Melvin Palacios MD Primary Care Provider Reason for Visit Reason Comments Medication Request prozac Encounter Details Date Type Department Care Team Description 11/15/[address] [facility] Medication Request Clinic [place] (prozac ) [address] [place] [address] ISAIAS MONCADA [facility] [address] [facility] [phone] [place], [place] [address] (Wo rk) Social History Tobacco Use Types Packs/Day Years Used Date Smoking Tobacco: Never Assessed Sex Assigned at Date Recorded Not on file documented as of this encounter Miscellaneous Notes Telephone Encounter - 11/15/2002 11:59 PM CDT >> DAMARI Goldman Nov 16, 2002 8:57 AM pt. states she was already notified. Nikolas Bowman MEDICAL HEALTH RESEARCHER >> SRIDEVI MAGALLON FriNov 15, 2002 4:43 PM LMTCB to [facility] desk. Sridevi Magallon RN >> DARLINE QUEEN FriNov 15, 2002 3:33 PM O.K. to increase dose, will do for 3mos and then should reevaluate. Tiff >> DESIRE BISHOP [facility] Nov 15, 2002 1:57 [...] up the dose/ please cll to discuss #[id number]/ chart requested documented in this encounter Plan of Treatment Not on filedocumented as of this encounter Visit Diagnoses Not on filedocumented in this encounter Care Teams Extension Course Coordinator Relationship Specialty Start Date End Date Melvin Palacios MD PCP - General 06/22/99 09/20/10 [address] [id number] documented as of this encounter
--- OUTSIDE RECORDS SUMMARY | 2022-04-30 09:42 | XMS_ITS | Encounter Summary ---
:1975 Author Organization [place] Address [address] [place] [address]. [place] [address] Care Team Providers Name Role Phone Melvin Palacios MD Primary Care Provider Reason for Visit Reason Onset Date Comments Medication Request 11/06/2004 wellbutrin Encounter Details Date Type Department Care Team Description 11/06/2004 Telephone [facility] on Request Clinic [place] ZENON Maddox (wellbutrin) [address] [place] [phone] [phone] Social History Tobacco Use Types Packs/Day Years [...] Primary documented in this encounter Care Teams Android Framework Developer Relationship Specialty Start Date End Date Melvin Palacios MD PCP - General 06/22/99 09/20/10 [address] [id number] documented as of this encounter
== END 2022-04-30 09:09 | disposition home or self-care (01) ==
LOC: NFLDREF 09:09
PROVIDERS: PCP Family Medicine; Visit Provider Family Medicine
DX: R35.0 Frequency of micturition (principal)
CPT/HCPCS: 87086; 87186

== ENCOUNTER 2022-05-20 08:56 | Outpatient (CLI) | payer OTHER, SELFPAY ==
--- OUTSIDE RECORDS SUMMARY | 2022-05-20 08:59 | XMS_ITS | Encounter Summary ---
:1975 Author Organization [place] Address [address] [facility] [place] [address] Care Team Providers Name Role Phone Erik Rivas Primary Care Provider Yony Garcia PA-C Unavailable [phone] Reason for Visit Reason Onset Date Comments Outreach 01/02/2019 VIP MAMMO - ATT 1 Encounter Details Date Type Department Care Team Description 01/02/2019 Telephone [place] [facility] Erik Rivas Outreach (VIP MAMMO [facility] [address] [address] [place], [place] [phone] [address] Social History Tobacco Use Types Packs/Day Years [...] - Preventive Health Screening PHYSICAL Comments: Outreach Waterworks Supervisor ST documented in this encounter Plan of Treatment Not on filedocumented as of this encounter Visit Diagnoses Not on filedocumented in this encounter Additional Health Concerns Assessment Noted Time PHQ-9 Depression Total Score: 2 07/18/2017 8:08 AM RELIEF COOK documented as of this encounter Care Teams Outside Installation Machinist Relationship Specialty Start Date End Date Erik Rivas PCP - General Family Practice 07/24/[address] [address] Yony Garcia PA-C Assigned PCP 09/01/16 02/05/20 [address] [place] [address] documented as of this encounter
--- OUTSIDE RECORDS SUMMARY | 2022-05-20 08:59 | XMS_ITS | Encounter Summary ---
:1975 Author Organization [place] Address [address] [facility] [place] [address] Care Team Providers Name Role Phone Yony Garcia PA-C Unavailable [phone] Erik Rivas Primary Care Provider Yony Garcia PA-C Unavailable [phone] Reason for Visit Reason Onset Date Comments Hospital F/U 07/27/2018 Dx: right Kidney sto ne D/c 07/25/18 Encounter Details Date Type Department Care Team Description 07/27/2018 Telephone [facility] Yony Garcia ct F/U (Dx: Clinic [place] ZENON Hoyos right Kidney stone D/c [facility], [address] [place] [address] 07/25/18) [address] [place] [address] [place], [place] [phone] (Wo rk) [address] [phone] Social History Tobacco Use Types Packs/Day Years [...] registered nurse, and I am calling from [facility]. I am calling to follow up and [...] diagnoses of heart failure, COPD, diabetes, or IA? No Medication reconciliation completed? Yes Was MTM [...] time and take care! Mayela Reese RN M SERVICE TECHNICIAN Telephone Encounter - Mayela Reese RN - 07/28/2018 10:57 AM CST ED / Discharge Outreach Protocol Patient Contact Attempt # 1 Was call answered? No. Left message on voicemail with information to call me back. Mayela Reese RN M SERVICE TECHNICIAN Telephone Encounter - Missy Rolle - 07/27/2018 1:11 PM ALARM SERVICE TECHNICIAN Follow up with Urology as directed Dx: right Kidney stone No future appointments with [facility] at this time. Fady Rolle [employer] Health Assistant 07/27/18 1:21 PM M SERVICE TECHNICIAN documented in this encounter Plan of Treatment Not on filedocumented as of this encounter Visit Diagnoses Not on filedocumented in this encounter Additional Health Concerns Assessment Noted Time PHQ-9 Depression Total Score: 2 07/18/2017 8:08 AM ALARM SERVICE TECHNICIAN documented as of this encounter Care Teams Nurse Quality Relationship Specialty Start Date End Date Yony Garcia PA-C PCP - Assigned PCP 09/01/16 08/11/18 [address] [address] Erik Rivas PCP - General Family Practice 07/24/[address] [address] Yony Garcia PA-C Assigned PCP 09/01/16 02/05/20 [address] [id number] documented as of this encounter
--- OUTSIDE RECORDS SUMMARY | 2022-05-20 08:59 | XMS_ITS | Encounter Summary ---
:1975 Author Organization [place] Address [address] [place] [address] Care Team Providers Name Role Phone Yony Garcia PA-C Unavailable [phone] Erik Rivas Primary Care Provider Yony Garcia PA-C Unavailable [phone] Encounter Details Date Type Department Care Team Description 07/25/2018 Anesthesia Event [facility] Taran Davis harlan PeriOp Services MD Otoniel [address], [place] ANESTHESIA [address] [address] [facility] [phone] [place], [place] [address] Anesthesia Record Procedure Summary Procedure Name Responsible [...] Intravenous; Easy; 4; Cj Reyes, Deanne Toussaint, WELCOME WAGON HOST/HOSTESS laryngeal mask airway; SHIPBUILDING DRAFTSPERSON SHIPBUILDING DRAFTSPERSON center of mouth; Equal, clear and bilateral; SHIPBUILDING DRAFTSPERSON; nstockcrna. documented in this encounter Social History [...] SpO2: 100% 100% Electronically Signed By: Patricio Davsi MD July 25, 2018 5:43 PM CTOR SELECTION AND ADMINISTRATION Anesthesia Preprocedure Evaluation - Patricio Davis MD [...] benefits and alternatives discussed with: Patient or field marketing representative and Patient.. Patricio Davis MD . CTOR SELECTION AND ADMINISTRATION documented in this encounter Miscellaneous Notes Anesthesia Care Transfer Note - Cj Reyes APRN SHIPBUILDING DRAFTSPERSON - 07/25/2018 5:00 PM DIRECTOR SELECTION AND ADMINISTRATION Images from the original note were not included. Patient: Dariana Osman Procedure(s): Cystoscopy, right retrograde pylogram, stone basketing Diagnosis: unknown Diagnosis Additional Information: No value filed. Anesthesia Type: General, LMA Note: Airway :Face Mask Patient transferred to:PACU Comments: To PACU, report to RN, oxygen per face mask. Vitals: (Last set prior to Anesthesia Care Transfer) SHIPBUILDING DRAFTSPERSON VITALS 07/25/2018 1629 - 07/25/2018 1700 07/25/2018 Pulse: 82 SpO2: 100 % Resp Rate (observed): 5 (Abnormal) Electronically Signed By: Cj Reyes APRN SHIPBUILDING DRAFTSPERSON July 25, 2018 5:00 PM CTOR SELECTION AND ADMINISTRATION documented in this encounter Plan of Treatment [...] dexamethasone (DECADRON) injection Given 07/25/2018 4:32 PM DIRECTOR SELECTION AND ADMINISTRATION 4 mg Intravenous, PRN, Administer over 1 Minutes, Starting on 07/25/18 at 1632, Anesthesia Intra-op fentaNYL (PF) (SUBLIMAZE) injection Given 07/25/2018 4:31 PM DIRECTOR SELECTION AND ADMINISTRATION 100 mcg PRN, Administer over 3-5 Minutes, Starting on 07/25/18 at 1631, Anesthesia Intra-op glycopyrrolate (ROBINUL) injection Given 07/25/2018 4:34 PM DIRECTOR SELECTION AND ADMINISTRATION 0.1 mg PRN, Administer over 1-2 Minutes, Starting on 07/25/18 at 1634, Anesthesia Intra-op lactated ringers infusion New Bag 07/25/2018 4:26 PM DIRECTOR SELECTION AND ADMINISTRATION at 100 mL/hr, Intravenous, CONTINUOUS, Continue until IV catheter is weaned, PACU, Starting on 07/25/18 at 1615, Until 07/25/18 at 1737 lidocaine 1 % injection Given 07/25/2018 4:31 PM DIRECTOR SELECTION AND ADMINISTRATION 50 mg PRN, Starting on 07/25/18 at 1631, Anesthesia Intra-op midazolam (VERSED) injection Given 07/25/2018 4:26 PM DIRECTOR SELECTION AND ADMINISTRATION 2 mg Administer over 2 Minutes, PRN, Starting on 07/25/18 at 1626, Anesthesia Intra-op ondansetron (ZOFRAN) injection Given 07/25/2018 4:38 PM DIRECTOR SELECTION AND ADMINISTRATION 4 mg PRN, Administer over 2-5 Minutes, Starting on 07/25/18 at 1638, Anesthesia Intra-op propofol (DIPRIVAN) injection 10 mg/mL v ial Given 07/25/2018 4:31 PM DIRECTOR SELECTION AND ADMINISTRATION 200 mg PRN, Starting on 07/25/18 at 1631, Anesthesia Intra-op documented in this encounter Additional Health Concerns Assessment Noted Time PHQ-9 Depression Total Score: 2 07/18/2017 8:08 AM DIRECTOR SELECTION AND ADMINISTRATION documented as of this encounter Care Teams Typing Secretary Relationship Specialty Start Date End Date Yony Garcia PA-C PCP - Assigned PCP 09/01/16 08/11/18 [address] [place] [address] Erik Rivas PCP - General Family Practice 07/24/[address] [address] Yony Garcia PA-C Assigned PCP 09/01/16 02/05/20 [address] [id number] documented as of this encounter
--- OUTSIDE RECORDS SUMMARY | 2022-05-20 08:59 | XMS_ITS | Encounter Summary ---
:1975 Author Organization [place] Address [address] [place] [address] Care Team Providers Name Role Phone Yony Garcia PA-C Unavailable [phone] Erik Rivas Primary Care Provider Yony Garcia PA-C Unavailable [phone] Reason for Visit Reason Comments Flank Pain Encounter Details Date Type Department Care Team Description 07/25/2018 Surgery [facility] Angel Bartlett Cystos copy, basketing of [place] PeriOp Servic cindy Codne MD stone from the right [address] ureteral orifice, right [place], [place] [address] [address] retrograde pyelogram, [id number] [place] [address] interpretation of [phone] (Wo rk) fluoroscopic images Surgery Details Date/Time [...] Comments Blood Pressure 129/79 07/25/2018 5:15 PM TOOL REPAIRER Pulse 65 07/25/2018 5:15 PM TOOL REPAIRER Temperature 36.1 ??C (97 ??F) 07/25/2018 4:59 PM TOOL REPAIRER Respiratory Rate 26 07/25/2018 5:15 PM TOOL REPAIRER Oxygen Saturation 100% 07/25/2018 5:15 PM TOOL REPAIRER Inhaled Oxygen Concentration - - Weight 94.8 kg (209 lb) 07/24/2018 6:40 PM TOOL REPAIRER Height 167.6 cm (5' 6) 07/24/2018 11:33 PM TOOL REPAIRER Body Mass Index 33.73 07/24/2018 6:40 PM TOOL REPAIRER documented in this encounter Discharge Summaries Gwendolyn Iyer PA-C - 07/25/2018 10:19 AM CST [facility] Hospitalist Discharge Summary Date of Admission: 07/24/2018 [...] These results will be followed up by [facility] Course This is a 42 year-old [...] minutes discharging this patient. Gwendolyn Iyer PA-C [facility] Physical Exam Vital Signs: Temp: 97.6 ??F [...] mouth At Bedtime Allergies No Known Allergies REPAIRER documented in this encounter Discharge Instructions Discharge InstructionsHannah Shaffer RN - 07/25/2018 4:49 PM CST CYSTOSCOPY DISCHARGE INSTRUCTIONS [facility] / UROLOGY [facility] [phone] YOU MAY GO BACK TO YOUR NORMAL [...] STILL NOT ABLE TO URINATE (PASS WATER). REPAIRER documented in this encounter Medications at Time [...] Will be sent to PeriOp with pt. Freight Team Associate - Pt DOES NOT need an transportation superintendent.. Beta Glenys - Pt is NOT on [...] Op Nurse Handoff Report was reviewed by: REPAIRER Connie Jerry RN - 07/24/2018 11:41 PM CST ROOM # 203 Living Situation (if not independent, order SW consult): in [place] with nallely Facility name: electronics detail draftsperson: Connie hodge Activity level at baseline: Ind Activity level on admit: Ind Patient registered to observation; given Patient Bill of Rights; given the opportunity to ask questions about observation status and their plan of care. Patient has been oriented to the observation room, bathroom and call light is in place. Discussed discharge goals and expectations with patient/family. REPAIRER documented in this encounter H&P Notes Andrea Dumas DO - 07/24/2018 11:18 PM CST [facility] History and Physical - Hospitalist Service Date [...] DO 07/24/2018, 11:14 PM Andrea Dumas DO [facility] Chief Complaint Right flank pain. History is [...] 0.90 ANIONGAP 5 RONAK 8.8 GLC 84 REPAIRER documented in this encounter Consult Notes Angel [...] discharge home after her procedure later today. AGNEL BARTLETT MD MT: ELVA Name: DARIANA OSMAN MRN: [id number] Account: [id number] : 1975 Consult Date: 07/25/2018 Document: [id number] REPAIRER documented in this encounter ED Notes Connie Jerry RN - 07/24/2018 10:27 PM CST [facility] ED Nurse Handoff Report Dariana Osman is a 42 year old female ED Chief complaint: Flank Pain . ED Diagnosis: Final diagnoses: None Allergies: No Known Allergies Code Status: Full Code Activity level - Baseline/Home: Independent. Activity Level - Current: Stand with Assist. Lift room needed: No. Bariatric: No Freight Team Associate Needed: No Isolation: No. Infection: Not Applicable. [...] on July 24, 2018 at 10:35 PM REPAIRER Karrie Newton RN - 07/24/2018 6:43 PM CST Patient to ED with right flank pain, radiates to groin. Started today. Has h/o kidney stones. REPAIRER Orion Akers MD - 07/24/2018 6:12 PM [...] and the provider's statements to me. 07/24/2018 [facility] EMERGENCY DEPARTMENT Orion Akers MD 07/25/18 0044 REPAIRER documented in this encounter Miscellaneous Notes Op [...] The procedure began by introducing a 22 Omani rigid cystoscope through the urethra into the [...] MD MT: RONDA Name: DARIANA OSMAN Account: [id number] : 1975 Procedure Date: 07/25/2018 Document: [id number] REPAIRER Plan of Care - Tobi Burgos RN - 07/25/2018 12:46 PM CST PRIMARY DIAGNOSIS: ACUTE RENAL COLIC OUTPATIENT/OBSERVATION GOALS TO BE MET BEFORE DISCHARGE 1. Pain Status: Improved but still requiring IV narcotics. 2. Tolerating adequate PO diet: NPO 3. Surgical Intervention planned: Yes 4. Cleared by consultants (if involved): No 5. Return to near baseline physical activity: Yes Cell Operator Nurse Safe discharge environment identified: Yes Barriers [...] met and patient is ready for discharge. REPAIRER Plan of Care - Tobi Burgos RN [...] Return to near baseline physical activity: Yes Cell Operator Nurse Safe discharge environment identified: Yes Barriers [...] met and patient is ready for discharge. REPAIRER Plan of Care - Connie Jerry RN [...] ind for activity - up ad praveen Cell Operator Nurse Safe discharge environment identified: Yes Barriers [...] sediment noted, IVF, urology in AM, NPO REPAIRER Plan of Care - Connie Jerry RN [...] ind for activity - up ad praveen Cell Operator Nurse Safe discharge environment identified: Yes Barriers [...] strain urine, IVF, urology in AM, NPO REPAIRER Pharmacy-Admission Medication History - Vera Duvall [facility] - 07/24/2018 11:07 PM CST .Admission medication history interview status for this patient is complete. See [facility] admission navigator for allergy information, prior to admission medications and immunization status. Medication history interview source(s):Patient Medication history resources (including written lists, pill bottles, clinic record):None Primary pharmacy: Not ID'd Changes made to [facility] medication list: Added: None Deleted: None Changed: [...] Bedtime 07/23/2018 at HS Yes Reported, Patient REPAIRER documented in this encounter Plan of Treatment Not on filedocumented as of this encounter Procedures Procedure Name Priority Date/Time Associated Comments Diagnosis SURGICAL PATHOLOGY Routine 07/25/2018 4:54 PM Res ults for this EXAM TOOL REPAIRER procedure are i n the results section. STONE ANALYSIS Routine 07/25/2018 4:54 PM Right kidney stone R esults for this TOOL REPAIRER procedure are i n the results section. XR SURGERY TAMMY Routine 07/25/2018 4:50 PM Result s for this FLUORO LESS THAN 5 TOOL REPAIRER procedure are in MIN W STILLS the results section. CYSTOSCOPY, WITH 07/25/2018 4:16 PM unknown RETROGRADE PYELOGRAM TOOL REPAIRER AND CALCULUS REMOVAL BASIC METABOLIC PANEL Routine 07/25/2018 5:55 AM Right kidney stone Results for this TOOL REPAIRER procedure are i n the results section. CT ABDOMEN PELVIS W/O STAT 07/24/2018 7:55 PM Results for this CONTRAST TOOL REPAIRER procedure are i n the results section. BASIC METABOLIC PANEL STAT 07/24/2018 7:04 PM Results for this TOOL REPAIRER procedure are i n the results section. ROUTINE UA WITH STAT 07/24/2018 7:00 PM Result s for this MICROSCOPIC TOOL REPAIRER procedure are i n the results section. documented in this encounter Results Surgical pathology exam (07/25/2018 4:54 PM TOOL REPAIRER) Component Value Ref Test Analysis Performed At [facility] Range Method Time Signature Copath Report Patient Name: EDELEN, DARIANA CAMILA COPATH MR#: [id number] Specimen #: [id number] Collected: 07/25/2018 Received: 07/27/2018 Reported: 07/27/2018 12:02 [...] of this testing was completed at the [facility], with the professional compo nent performed at the [facility] Laboratory, [address] [place] [address] [phone] ([phone]) CPT Codes: A: 91166-II COLLECTION SITE: Client: [facility] Location: RHPRE (R) Specimen Anatomical Collection Method Collection Time Receive d Time (Source) Location / / Volume Laterality 07/25/2018 4:54 PM 9 8:00 TOOL REPAIRER AM TOOL REPAIRER Andrea SHETTY - BELEANN AP Performing Organization Address City/State/ZIP Code Phon e Number COPATH Stone analysis (07/25/2018 4:54 PM TOOL REPAIRER) [facility] Method Time Signature Stone SEE NOTE 07/31/2018 [place] Composition 9:30 AM [facility] Comment: (Note) Calculi composed primarily of calcium [...] omposition determined by FTIR analysis. Performed by [facility], [address] [place] [id number] [email or web address], Oswaldo Pierson MD, Lab. Director Calculi Number 1 07/31/2018 9:[address] [facility] Calculi Size 1 to 4 mm 07/31/2018 9:30 AM TOOL REPAIRER [facility] Calculi Description SEE NOTE 07/31/2018 9:30 AM C [facility] Comment: (Note) Specimen consists of a single, small, brown/sanchez, irregular calculus. Stone Mass 18 mg 07/31/2018 9:30 AM TOOL REPAIRER [facility] Specimen (Source) Anatomical Collection Method Collection Time Re ceived Time Location / / Volume Laterality Calculus specimen STRUCTURE OF RIGHT 07/25/2018 4:54 P M (specimen) URETER / Unknown TOOL REPAIRER Angel Bartlett MD LAB - BODY FLUIDS ORDERABLES Performing Organization Address City/State/ZIP Code Phon e Number [facility] [address] [address] [facility] [address] [phone] XR Surgery TAMMY L/T 5 Min Fluoro w Stills (07/25/2018 4:50 PM TOOL REPAIRER) Anatomical Region Laterality Modality Abdomen/Pelvis Radio Fluoroscopy Specimen (Source) Anatomical Location Collection Method / Collectio n Time Received Time / Laterality Volume Impressions 07/25/2018 5:22 PM TOOL REPAIRER IMPRESSION: Single provided image of retrograde ureterogram without significant hydronephrosis. Filling defe ct in the distal ureter presumably represents an air bubble. Ple ase see operative report for further details. ALLAN HANNA MD Narrative 07/25/2018 5:22 PM TOOL REPAIRER SURGERY C-ARM FLUOROSCOPY LESS THAN 5 MINUTES WITH STILLS ??07/25/2018 4:50 PM COMPARISON: 01/18/2016. HISTORY: CT abdomen pelvis 07/24/2018. NUMBER OF IMAGES ACQUIRED: 1 VIEWS: 1 FLUOROSCOPY TIME: .01 minutes. Procedure Note Allan Hanna MD - 07/25/2018 SURGERY C-ARM FLUOROSCOPY LESS THAN 5 WI NUTES WITH STILLS 07/25/2018 4:50 PM COMPARISON: [...] (ABNORMAL) Basic metabolic panel (07/25/2018 5:55 AM [facility] [[email or web address] athologist Signature Sodium 142 133 - 144 07/25/2018 [facility] mmol/L 6:23 AM [facility] Potassium 3.9 3.4 - 5.3 07/25/2018 [facility] mmol/L 6:23 AM [facility] Chloride 113 (H) 94 - 109 07/25/2018 [facility] mmol/L 6:23 AM [facility] Carbon Dioxide 26 20 - 32 07/25/2018 [facility] mmol/L 6:29 AM [facility] Anion Gap 3 3 - 14 07/25/2018 [facility] mmol/L 6:29 AM [facility] Glucose 99 70 - 99 07/25/2018 [facility] mg/dL 6:29 AM [facility] Urea Nitrogen 9 7 - 30 07/25/2018 [facility] mg/dL 6:29 AM [facility] Creatinine 0.80 0.52 - 07/25/2018 [facility] 1.04 mg/dL 6:29 AM [facility] GFR Estimate >90 >60 07/25/2018 [place] mL/min/{1. 6:29 AM [facility] 73_m2} HOSPITAL Comment: Non GFR Calc [...] 8.5 - 10.1 mg/dL 07/25/2018 6:29 AM [facility] Specimen Anatomical Collection Method Collection Time Receive d Time (Source) Location / / Volume Laterality Blood specimen 07/25/2018 5:55 AM 019 5:56 (specimen) TOOL REPAIRER AM TOOL REPAIRER Andrea Dumas DO LAB - BLOOD ORDERABLES Performing Organization Address City/State/ZIP Code Phon e Number [place] [address] [place], [place] [address] [phone] [facility] [address] [place], [place] [address] [place] [address] CT Abdomen Pelvis w/o Contrast (07/24/2018 7:55 PM TOOL REPAIRER) Anatomical Region Laterality Modality Abdomen/Pelvis, SUBRAD CT BODY, UMP CT ABDOMEN PELVIS, Computed Tomography RAD CT Specimen (Source) Anatomical Location Collection Method / Collectio n Time Received Time / Laterality Volume Impressions 07/24/2018 10:19 PM TOOL REPAIRER IMPRESSION: 1. 3 mm distal right ureter stone with o bstruction. 2. Small left renal angiomyolipoma. MANUEL ALMAZAN MD Narrative 07/24/2018 10:[address] ABDOMEN/PELVIS WITHOUT CONTRAST July 24, 2018 [...] ORDERABLES Basic metabolic panel (07/24/2018 7:04 PM [facility] [[email or web address]]) athologist Signature Sodium 134 133 - 144 07/24/2018 [facility] mmol/L 7:37 PM [facility] Potassium 3.8 3.4 - 5.3 07/24/2018 [facility] mmol/L 7:37 PM [facility] Chloride 104 94 - 109 07/24/2018 [facility] mmol/L 7:37 PM [facility] Carbon Dioxide 25 20 - 32 07/24/2018 [facility] mmol/L 7:43 PM [facility] Anion Gap 5 3 - 14 07/24/2018 [facility] mmol/L 7:43 PM [facility] Glucose 84 70 - 99 07/24/2018 [facility] mg/dL 7:43 PM [facility] Urea Nitrogen 12 7 - 30 07/24/2018 [facility] mg/dL 7:43 PM [facility] Creatinine 0.90 0.52 - 07/24/2018 [facility] 1.04 mg/dL 7:43 PM [facility] GFR Estimate 80 >60 07/24/2018 [place] mL/min/{1. 7:43 PM [facility] 73_m2} HOSPITAL Comment: Non GFR Calc [...] 8.5 - 10.1 mg/dL 07/24/2018 7:43 PM [facility] Specimen Anatomical Collection Method Collection Time Receive d Time (Source) Location / / Volume Laterality Blood specimen 07/24/2018 7:04 PM 019 7:14 (specimen) TOOL REPAIRER PM TOOL REPAIRER Orion Akers MD LAB - BLOOD ORDERABLES Performing Organization Address City/State/ZIP Code Phon e Number [place] [address] [address] [facility] [address] [phone] (ABNORMAL) UA with Microscopic (07/24/2018 7:00 PM TOOL REPAIRER) [facility] Method Time Signature Color Urine Yellow 07/24/2018 [facility] 7:36 PM [facility] Appearance Urine Slightly 07/24/2018 [facility] Cloudy 7:36 PM [facility] Glucose Urine Negative NEG^Negat 07/24/2018 [place] mg/dL 7:36 PM [facility] Bilirubin Urine Negative NEG^Negat 07/24/2018 [facility] 7:36 PM [facility] Ketones Urine 5 (A) NEG^Negat 07/24/2018 [place] mg/dL 7:36 PM [facility] Specific [employer] 1.028 1.003 - 07/24/2018 [place] Urine 1.035 7:36 PM [facility] Blood Urine Large (A) NEG^Negat 07/24/2018 [facility] bakari 7:36 PM [facility] pH Urine 5.0 5.0 - 7.0 07/24/2018 [place] pH 7:36 PM [facility] Protein Albumin Negative NEG^Negat 07/24/2018 [place] Urine bakari mg/dL 7:36 PM [facility] Urobilinogen Negative 0.0 - 2.0 07/24/2018 [place] mg/dL mg/dL 7:35 PM [facility] Nitrite Urine Negative NEG^Negat 07/24/2018 [place] bakari 7:36 PM [facility] Leukocyte Negative NEG^Negat 07/24/2018 [place] Esterase Urine bakari 7:36 PM [facility] Source Midstream 07/24/2018 [place] Urine 7:21 PM [facility] WBC Urine 3 0 - 5 07/24/2018 [facility] /HPF 7:36 PM [facility] RBC Urine >182 (H) 0 - 2 07/24/2018 [facility] /HPF 7:36 PM [facility] Squamous 1 0 - 1 07/24/2018 [place] Epithelial /HPF /HPF 7:36 PM [facility] Mucous Urine Present (A) NEG^Negat 07/24/2018 [place] bakari /LPF 7:36 PM [facility] Specimen (Source) Anatomical Collection Method Collection Time Re ceived Time Location / / Volume Laterality Examination of 07/24/2018 7:00 07/24/2018 7:21 midstream urine PM TOOL REPAIRER PM TOOL REPAIRER specimen (procedure) Orion Akers MD LAB - URINE ORDERABLES Performing Organization Address City/State/ZIP Code Phon e Number [facility] [address] [address] [facility] [address] [phone] documented in this encounter Visit Diagnoses Not on filedocumented in this encounter Administered Medications Inactive Administered Medications - up to 3 most recent administrations Medication Order MAR Action Action Date Dose Rate Site 0.9% sodium chloride BOLUS New Bag 07/25/2018 1:49 AM TOOL REPAIRER 500 mLs 500 mL/hr Intravenous, 500 mL, [...] mL dextrose PRE-MIX Routine, 2 g, Intravenous, PRE-OP/PRE-RI OCEDURE, Starting on Fri07/25/18 at 1702, For 1 dose, Give first dose within 1 bibi r PRIOR to incision. If patient weight is greater than or equal to 120 kg increase dose to 3 g., Indications: Perioperative Pharmacoprophylaxis, Pre-procedure HYDROmorphone (PF) (DILAUDID) injection 0.2 Given 07/10 12:54 PM TOOL REPAIRER 0.2 mg mg 0.2 mg, Intravenous, EVERY [...] over 2-5 minutes. Given 07/25/2018 9:02 AM TOOL REPAIRER 0.2 mg Given 07/25/2018 6:23 AM TOOL REPAIRER 0.2 mg HYDROmorphone (PF) (DILAUDID) injection 0.5 Given 07/24/2018 9:46 PM TOOL REPAIRER 0.5 mg mg 0.5 mg, Intravenous, EVERY 30 MIN PRN, moderate to severe pain, Starting on Fri07/24/18 at 1907, For 3 doses, For ordered IV doses 0.1-4 mg give IV Push undiluted. Administer each 2mg over 2-5 minutes. Given 07/24/2018 8:20 PM TOOL REPAIRER 0.5 mg HYDROmorphone (PF) (DILAUDID) injection 0.5 Given 07/24/2018 7:18 PM TOOL REPAIRER 0.5 mg mg 0.5 mg, Intravenous, ONCE, On Fri07/24/18 at 1911, For 1 dose, For ordered IV doses 0.1-4 mg give IV Push undiluted. Administer each 2mg over 2-5 minutes. iopamidol 61% (ISOVUE Given 07/25/2018 4:51 PM 15 ml given Operative 300) 50 mL + sterile TOOL REPAIRER Site /Surgical Site water for irrigation 50 mL PRN, Starting on 07/25/18 at 1651, Intra-procedure ketorolac (TORADOL) injection 15 mg Given 07/24/2018 7:22 PM TOOL REPAIRER 15 mg 15 mg, Intravenous, ONCE, On [...] injection 0.5 mg Given 07/25/2018 11:25 AM TOOL REPAIRER 0.5 mg 0.5 mg, Intravenous, EVERY 6 [...] injection 4 mg Given 07/24/2018 7:19 PM TOOL REPAIRER 4 mg 4 mg, Intravenous, ONCE, Administer over 2-5 Minutes, On Fri07/24/18 at 1908, For 1 dose, Irritant. For ordered IV doses 0.1-4 mg, give IV Push undiluted over 2-5 minutes. ondansetron (ZOFRAN) injection 4 mg Given 07/25/2018 12:43 PM TOOL REPAIRER 4 mg 4 mg, Intravenous, EVERY 6 [...] 4:52 PM 200 mLs Operative Site/Surgical irrigation TOOL REPAIRER Site PRN, Starting on 07/25/18 at 1652, Intra-procedure sodium chloride 0.9% infusion New Bag 07/25/2018 9:01 AM TOOL REPAIRER 125 mL/hr at 125 mL/hr, Intravenous, CONTINUOUS, Starting on Fri07/24/18 at 2315, Until 07/25/18 at 1959 Rate/Dose Verify 07/25/2018 8:13 AM TOOL REPAIRER 125 mL/hr New Bag 07/24/2018 11:54 PM TOOL REPAIRER 125 mL/hr documented in this encounter Active and Recently Administered Medications Times are shown in TOOL REPAIRER. Scheduled Medication Order 07/23/2018 07/24/2018 07/25/2018 0.9% [...] (bag) irrigation (CANCELED) 1651 (Given - Provider: nAgel Bartlett MD) PRN, Starting 07/25/18 at 1652, [...] Depression Total Score: 2 07/18/2017 8:08 AM TOOL REPAIRER documented as of this encounter Care Teams Police Surgeon Relationship Specialty Start Date End Date Yony Garcia PA-C PCP - Assigned PCP 09/01/16 08/11/18 [id number] [place] [address] Erik Rivas PCP - General Family Practice 07/24/[address] [address] Yony Garcia PA-C Assigned PCP 09/01/16 02/05/20 [id number] [address] [place] [id number] documented as of this encounter
--- OUTSIDE RECORDS SUMMARY | 2022-05-20 08:59 | XMS_ITS | Clinical Summary ---
:1975 Author Organization [facility] Address [address] [place] [address] Care Team Providers Name Role Phone Erik [...] 11/09/10 NIL pap (ajk) 11/23/12 [facility]. 12/25/12 [place]= BRIGID 2. Referred to Ob~Order Worker , Dr. Christensen 02/18/13 LEEP= Negative, R/P [...] Dates Next Due HepB 05/19/1998 Influenza Vaccine >6 months (Alfuria,Fluzone) 04/02/2013 TDAP Vaccine (Adacel) 11/25/2016 Tdap (Adacel,Boostrix) 03/07/2006 [...] Comments Blood Pressure 136/92 07/25/2018 5:45 PM SOFTWARE SPECIALIST Pulse 72 07/25/2018 5:45 PM SOFTWARE SPECIALIST Temperature 36.8 ??C (98.3 ??F) 07/25/2018 5:45 PM SOFTWARE SPECIALIST Respiratory Rate 13 07/25/2018 5:45 PM SOFTWARE SPECIALIST Oxygen Saturation 99% 07/25/2018 5:45 PM SOFTWARE SPECIALIST Inhaled Oxygen Concentration - - Weight 94.8 kg (209 lb) 07/24/2018 6:40 PM SOFTWARE SPECIALIST Height 167.6 cm (5' 6) 07/24/2018 11:33 PM SOFTWARE SPECIALIST Body Mass Index 33.73 07/24/2018 6:40 PM SOFTWARE SPECIALIST Plan of Treatment Health Maintenance Due [...] 64 Years) Medical Devices Implanted Type Area Faa Certified Powerplant Mechanic Device Shelf Model / Identifier Expiration Serial / Date Lot Stent Ureteral Dbl Pigtail Inlay [id number] Stent, Left: CR BARD 04/11/2020 [id number] / Implanted: Qty: 1 on 01/18/2016 by Otoniel Soler MD at [facility] Non-Vasc Ureter INC-UROLOGIC / ular [id number] Explanted Type Area Faa Certified Powerplant Mechanic Device Shelf Model / Identifier Expiration Serial / Date Lot Stent Ureteral Dbl Pigtail Inlay [id number] Stent, Left: CR BARD 07/05/2020 [id number] / Implanted: Qty: 1 Non-Vasc Ureter [employer]-UROLOGIC / Explanted: Qty: 1 on 01/18/2016 at [facility] u lar [id number] Insurance Payer Benefit Plan / Group Subscriber ID Effective Phone Addre ss Type Dates PREFERREDONE PREFERREDONE NON [id number] 2017-Pre [phone] [address] [facility] sent [phone] [place] [address] Dariana Valdez Personal/Famil Self 1975 [id number] y (Home) [place] [phone] DARIANA VALDEZ Personal/Famil Self [address] [place] [address] y ([address] [place] [address] Advance Directives For more information, please contact: [phone] Latest Code Status on File Code Status [...] 9:35 AM 01/18/2016 7:42 PM Care Teams Hydroelectric Plant Electrician Relationship Specialty Start Date End Date Erik Rivas PCP - General Family Practice 07/24/18 [facility] [address] [place] [address]
--- OUTSIDE RECORDS SUMMARY | 2022-05-20 09:00 | XMS_ITS | Encounter Summary ---
:1975 Author Organization [place] Address [address] [facility] [place] [address] Care Team Providers Name Role Phone Yony Garcia PA-C Primary Care Provider [phone] Yony Garcia PA-C Unavailable [phone] Yony Garcia PA-C Unavailable [phone] Reason for Visit Reason Onset Date Comments update health information 09/24/2017 Encounter Details Date Type Department Care Team Description 09/24/[address] [facility] Yony Garcia update health Clinic [place] ZENON Hoyos information [facility], [address] [place] [address] [address] [place] [address] [place], [place] [phone] (Wo rk) [address] [phone] Social History Tobacco Use Types Packs/Day Years [...] Total Score: 2 07/18/2017 8:08 AM PRODUCTION LINE SOLDERER documented as of this encounter Care Teams River Transportation Worker Relationship Specialty Start Date End Date Yony Garcia, PCP - General Physician Flight Operation Coordinator - 01/30/17 07/23/18 [facility] Medical Yony Garcia, PCP - Assigned PCP 09/01/16 08/11/18 [place] 29760 SONJA KRAUSE [id number] Yony Garcia, Assigned PCP 09/01/16 Z[place] 08919 SONJA KRAUSE [id number] documented as of this encounter
--- OUTSIDE RECORDS SUMMARY | 2022-05-20 09:00 | XMS_ITS | Encounter Summary ---
:1975 Author Organization [place] Address [address] [place] [address] Care Team Providers Name Role Phone Yony Garcia PA-C Primary Care Provider [phone] Yony Garcia PA-C Unavailable [phone] Yony Garcia PA-C Unavailable [phone] Reason for Visit Reason Comments Surgical Followup hysterectomy 02/05/17 Encounter Details Date Type Department Care Team Description 02/18/2017 Office Visit [facility] Jeimy Christensen S/P hyst erectomy (Primary Dx); [facility] Mor[facility] obesity due to excess calories (H ) [address] [address] [place], [place] [phone] [address] Social History Tobacco Use Types Packs/Day Years [...] Dr. Jeimy Christensen DO Obstetrics and Gynecology [facility] documented in this encounter Progress Notes Dee [...] prescribed. She recently got a membership at [employer] and would like assistance losing weight. This document serves as a record of the services and decisions personally performed and made by Jeimy Christensen DO. It was created on his/her behalf by Evonne Geiger, a trained medical doctor md. The creation of this document is based the provider's statements to the medical doctor md. Sasha Geiger 4:21 PM, February 18, 2017 [...] in this document, created by the medical doctor md for me, accurately reflects the services I [...] documented as of this encounter Care Teams Residential Designer Relationship Specialty Start Date End Date Yony Garcia, PCP - General Physician Crystal Slicer - 01/30/17 07/23/18 [place] Medical Yony Garcia, PCP - Assigned PCP 09/01/16 08/11/18 [place] [id number] SONJA KRAUSE [id number] Yony Garcia, Assigned PCP 09/01/16 [place] 50397 SONJA KRAUSE [id number] documented as of this encounter
--- OUTSIDE RECORDS SUMMARY | 2022-05-20 09:00 | XMS_ITS | Encounter Summary ---
:1975 Author Organization [place] Address [address] [place] [address] Care Team Providers Name Role Phone Esmer Roland MD Primary Care Provider [phone] Yony Garcia PA-C Unavailable [phone] Yony Garcia PA-C Unavailable [phone] Reason for Visit Reason Comments Recheck Medication Encounter Details Date Type Department Care Team Description 11/25/2016 Office Visit [facility] Yony Garcia Major depressive disorder, recurrent episode, mild (H) (Primary Dx); Clinic Sara Hoyos PA-C Need for akzeeeiztc-tpdbnoh-wqtavidcd (T dap) vaccine [place] [address] [facility], [address] [place] [address] [place], [place] [phone] (Wo rk) [address] [phone] Social History Tobacco Use Types Packs/Day Years [...] - Total Score 2 - 5 PHQ-9 Indian PHQ-9 Any Language GAD7 Patient here to [...] 30 capsule; Refill: 0 2. Need for yxxdpxmutx-xgfroxo-wwiiscott (Tdap) vaccine - TDAP VACCINE (ADACEL) Yony Garcia PA-C [facility] documented in this [...] disorder, recurrent epi sode, mild Need for bmomwupdec-cwywmgv-rhaukwdun (T dap) vaccine Need for prophylactic vaccination with c ombined iuyyyzxibi-xckyhon-nrazbwsco (DTP) vaccine documented in this encounter Additional Health Concerns Assessment Noted Time PHQ-9 Depression Total Score: 2 11/02/2016 7:17 AM CDT documented as of this encounter Care Teams Slackman Relationship Specialty Start Date End Date Esmer Roland MD PCP - General Family Practice 09/21/10 01/29/17 Yony Garcia PA-C PCP - Assigned PCP 09/01/16 08/11/18 28057 SONJA KRAUSE [phone] Yony Garcia PA-C Assigned PCP 09/01/16 02/05/20 68656 SONJA KRAUSE [id number] documented as of this encounter
--- OUTSIDE RECORDS SUMMARY | 2022-05-20 09:00 | XMS_ITS | Encounter Summary ---
:1975 Author Organization [place] Address [address] [place] [address] Care Team Providers Name Role Phone Yony Garcia PA-C Primary Care Provider [phone] Yony Garcia PA-C Unavailable [phone] Yony Garcia PA-C Unavailable [phone] Reason for Visit Auth/Cert Specialty Diagnoses / Procedures Referred By Contact Refer red To Contact Surgery Diagnoses post ablation pain syndrome Rh Periop Services Procedures DAVINCI HYSTERECTOMY TOTAL [address] [place], [place] [address] Phone: Fax: Referral ID Status Reason Start Date Expiration Date Visits Requ ested Visits Authorized [id number] 1 1 Encounter Details Date Type Department Care Team Description 02/05/2017 Anesthesia Event M [facility] MD PeriOp Services [facility] ANESTHESIA [address] [place] [address] [place], [place] [address] (Wo rk) Anesthesia Record [...] No; 02/05/17 0842 by 02/05/17 0930 by /GI/JOB FORWARDER Pelvic Akua Jones RN Distel, Shei la bituminous distributor operator; 16 fr Incision/Surgical Site 02/05/17; 0953; [...] AntlAwilda RN Antl, Debby Rodgers RN nostril; SOFTWARE TECHNICAL LEAD; End of therapy documented in this encounter [...] suspicious for endometriosis SURGEON: Jeimy Christensen DO. Wildlife Forensic Geneticist: Allyson Holloway SA, PROCEDURES: 1. Robotic-assisted total [...] (Last set prior to Anesthesia Care Transfer) SOFTWARE TECHNICAL LEAD VITALS 02/05/2017 0925 - 02/05/2017 1003 02/05/2017 [...] documented as of this encounter Care Teams Grout Machine Tender Relationship Specialty Start Date End Date Yony Garcia, PCP - General Physician Wildlife Forensic Geneticist - 01/30/17 07/23/18 [facility] Medical Yony Garcia, PCP - Assigned PCP 09/01/16 08/11/18 [place] 42189 SONJA KRAUSE [phone] Yony Garcia, Assigned PCP 09/01/16 [place] 98721 SONJA KRAUSE [address] documented as of this encounter
--- OUTSIDE RECORDS SUMMARY | 2022-05-20 09:00 | XMS_ITS | Encounter Summary ---
:1975 Author Organization [place] Address [address] [facility] [place] [address] Care Team Providers Name Role Phone Yony Garcia PA-C Primary Care Provider [phone] Yony Garcia PA-C Unavailable [phone] Yony Garcia PA-C Unavailable [phone] Reason for Visit Auth/Cert Specialty Diagnoses / Procedures Referred By Contact Refer red To Contact Surgery Diagnoses post ablation pain syndrome Rh Periop Services Procedures DAVINCI HYSTERECTOMY TOTAL [address] [place] [address] Phone: Fax: Referral ID Status Reason Start Date Expiration Date Visits Requ ested Visits Authorized [id number] 1 1 Encounter Details Date Type Department Care Team Description 02/05/2017 Hospital Encounter [facility] Jeimy Christensen S/ P hysterectomy [place] PreOP/PostOP DO [place] (Primary Dx) [address] [facility] [address] [facility] [address] [facility] [phone] [place] [address] Social History Tobacco Use Types Packs/Day [...] Dr. Jeimy Christensen DO Obstetrics and Gynecology [facility] [place] documented in this encounter Discharge Instructions Discharge InstructionsAndreia Angelo RN - 02/05/2017 1:16 PM CDT Follow up in 1-2 weeks Call [phone] or [phone] for appointment Call and ask to be seen or talk to a doctor for the following: (You can go to the ob triage button On answering service line) . Increased bleeding, fever, general unwell feeling or increased pain. Dr. Jeimy Christensen DO BOX MACHINE OPERATOR [facility] GENERAL ANESTHESIA OR SEDATION ADULT [...] Garcia PA-C - 01/30/2017 8:34 AM CDT [address], [address] [facility] [phone] Dept: [phone] PRE-OP EVALUATION: Today's date: 01/30/2017 Dariana Osman (: 1975) presents for pre-operative evaluation assessment as requested by Dr. Jeimy Christensen. 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 Proposed procedure: davinci hysterectomy total Date [...] 11/09/10 NIL pap (ajk) 11/23/12 ASC-H. 12/25/12 [place]= BRIGID 2. Referred to Ob~Leasing Manager, Dr. Christensen 02/18/13 LEEP= Negative, R/P pap [...] cardiovascular risks for perioperative complications such as ([place], PE, VFib and 3?? AV Block): No [...] suspicious for endometriosis SURGEON: Jeimy Christensen DO. Supervisor Paste Mixing: Allyson Holloway SA PROCEDURES: 1. Robotic-assisted total [...] clindamycin preoperatively. A Brock catheter was placed. [place] speculum was placed in the patient's vaginal vault. Anterior lip of cervix was grasped with a single-tooth tenaculum, and a glxnad-kc-rfxwz suture of 0 monocryl is placed on [...] then the ports were placed. An air-seal home care assistant port was placed in the right [...] the procedure well. Dr. Jeimy Christensen DO BOX MACHINE OPERATOR [facility] Brief Op Note - Jeimy Christensen DO - 02/05/2017 9:50 AM CDT [facility] Brief Operative Note Pre-operative diagnosis: post [...] Christensen DO - 02/05/2017 9:48 AM CDT [facility] Brief Operative Note Pre-operative diagnosis: post [...] Component Value Ref Test Analysis Performed At [facility] Range Method Time Signature Copath Report Patient Name: DARIANA OSMAN MR#: [id number] Specimen #: [id number] Collected: 02/05/2017 Received: 02/05/2017 Reported: 02/06/2017 11:14 [...] B. Microscopic evaluation performed. CPT Codes: A: 44480-JV9 B: 75602-YL5 TESTING LAB LOCATION: [address] ??[address] COLLECTION SITE: Client: [facility] Location: RHOR (R) Specimen (Source) Anatomical Collection [...] Signature HCG Qual Urine Negative NEG^Negati 02/05/2017 [facility] 6:34 AM CDT [facility] Comment: This test is for screening purposes. ??R esults should be interpreted along with the clinical picture. ??Confirmation te sting is available if warranted by ordering [id number], HCG Quantitative Pregna ncy. Specimen Anatomical Collection Method Collection Time Receive d Time (Source) Location / / Volume Laterality Urine specimen URINE SPECIMEN / 02/05/2017 6:15 AM 6:24 (specimen) Unknown CDT AM CDT Claudy Villalobos MD LAB - URINE ORDERABLES Performing Organization Address City/[facility]/ZIP Code Phon e Number [place] [address] [place] [address] [phone] documented in this encounter Visit Diagnoses Diagnosis [...] (COMPLETED) 801 (Given - Provider: Clare Das, [place] FLORIST WELLNESS CONSULTANT) 2 g, Intravenous, PRE-OP/PRE-PROCEDURE, Starting Fri02/05/17 at [...] RN) 0.3-0.5 mg, Intravenous, EVERY 10 MIN RI N, Starting Fri02/05/17 at 1009, Until Fri02/05/17 [...] documented as of this encounter Care Teams Rn Research Relationship Specialty Start Date End Date Yony Garcia, PCP - General Physician Supervisor Paste Mixing - 01/30/17 07/23/18 PA-C Medical Yony Garcia, PCP - Assigned PCP 09/01/16 08/11/18 PA-C 38117 SONJA KRAUSE [id number] Yony Garcia, Assigned PCP 09/01/16 PA-C 51824 SONJA KRAUSE [address] documented as of this encounter
--- OUTSIDE RECORDS SUMMARY | 2022-05-20 09:00 | XMS_ITS | Encounter Summary ---
:1975 Author Organization [place] Address [address] [facility] [place] [place] [address] Care Team Providers Name Role Phone Esmer Roland MD Primary Care Provider [phone] Yony Garcia PA-C Unavailable [phone] Yony Garcia PA-C Unavailable [phone] Reason for Visit Reason Comments Medication Refill DULoxetine (CYMBALTA) 60 MG and 30 MG cap Encounter Details Date Type Department Care Team Description 10/31/2016 Refill [facility] Esmer Roland Medicat ion Refill Clinic Sara Byrd MD (DULoxetine (CYMBALTA) [facility], [address] [place] [address] AVE 60 MG and 30 MG cap) [address] [place] [address] [place], [place] [phone] (Wo rk) [address] [phone] Social History Tobacco Use Types Packs/Day Years [...] Last Office Visit with G, P or [facility] prescribing provider: 02/27/2016 BP Readings from Last [...] documented as of this encounter Care Teams Water Server Relationship Specialty Start Date End Date Esmer Roland MD PCP - General Family Practice 09/21/10 01/29/17 Yony Garcia PA-C PCP - Assigned PCP 09/01/16 08/11/18 [id number] SONJA KRAUSE [id number] Yony Garcia PA-C Assigned PCP 09/01/16 02/05/20 26561 SONJA KRAUSE [id number] documented as of this encounter
--- OUTSIDE RECORDS SUMMARY | 2022-05-20 09:00 | XMS_ITS | Encounter Summary ---
:1975 Author Organization [place] Address [address] [facility] [place] [address] Care Team Providers Name Role Phone Esmer Roland MD Primary Care Provider [phone] Yony Garcia PA-C Unavailable [phone] Yony Garcia PA-C Unavailable [phone] Reason for Visit Reason Comments Consult lower back pain and bloating since last fall--pt have Novasure--still gets period and has sharp pain Encounter Details Date Type Department Care Team Description 12/24/2016 Office Visit [facility] ÁlvaroJeimy ashley Pelvic p ain in female (Primary Dx); [facility] DO [place] S/P endometrial ablation; [place] [address] [address] S Pap smear for cervical cancer screening [address] [place], [place] [address] [address] [place], [place] [phone] [address] (Work) [phone] Social History Tobacco Use Types Packs/Day Years [...] Dr. Fabiana Christensen DO Obstetrics and Gynecology [facility] documented in this encounter Progress Notes Jeimy [...] his/her behalf by Erika Ruelas, a trained biomedical technician. The creation of this document is based the provider's statements to the biomedical technician. Rashibelen RosasErikaalyssa Ruelas 10:15 AM, December 24, [...] information in this document, created by the biomedical technician for me, accurately reflects the services I personally performed and the decisions made by me. I have reviewed and approved this document for accuracy prior to leaving the patient care area. Jeimy Christensen DO 10:12 AM, 12/24/16 Dr. Jeimy Christensen DO Obstetrics and Gynecology [facility] and [place] documented in this encounter Nursing Notes Solange [...] Component Value Ref Test Analysis Performed At [facility] Range Method Time Signature PAP ASC-US (A) COPATH Copath Report COPATH Patient Name: DARIANA OSMAN MR#: [id number] Specimen #: [id number] Collected: 12/24/2016 Received: 12/25/2016 Reported: 12/26/2016 14:50 [...] be valerie ged on the [employer] Slide Lockstitch Lining Maker. -Transformation zone component present. CYTOLOGIC INTERPRETATION: Epithelial cell abnormality: ??squamous cell: ??atypical squ amous cells-of undetermined significance (ASC-US). Electronically signed out by: Blake Scruggs M.D. Processed and screened at [facility] CLINICAL HISTORY: LMP: 11/17/2016 Ablation, Previous normal pap Date of Last Pap: 07/08/2014, Papanicolaou Test Limitations: ??Cervical cytology is a scre ening test with limited sensitivity; regular screening is critical for cancer prevention; Pap tests are primarily effective for the diagnosis/prevention of squamous cell carcinoma, not adenoca rcinomas or other cancers. TESTING LAB LOCATION: [address] ??[address] COLLECTION SITE: Client: ??[facility] Location: RIOB (R) Specimen Anatomical Collection Method Collection Time Receive d Time (Source) Location / / Volume Laterality 12/24/2016 10:50 12/25/2016 9:34 AM CDT AM CDT Jeimy hCristensen DO LAB - OPTIME CLINICAL SPECIM EN Performing Organization Address City/State/ZIP Code Phon e Number COPATH HPV High Risk Types DNA Cervical (12/24/2016 10:45 AM CDT) Component Value Ref Test Analysis Performed At [facility] Range Method Time Signature HPV 16 DNA Negative NEG [facility] HPV 18 DNA Negative NEG [facility] Other HR HPV Negative NEG [facility] Final This patient's sample is negative for HPV DNA. [facility] Diagnosis (Note) OF [place] METHODOLOGY: ??The German cheng 4800 system uses automated extraction, MEDICAL simultaneous amplification of HPV (L1 region) and beta-globi n, [facility] followed by ??real time detection of fluorescent [...] and its performance characteristics determined by the [facility] [place] [facility]. It has not been cleared or approved by the FDA. The laboratory is regulated under CLIA as qualified to perform high-complexity testing. This test is used for clinical purp oses. It should not be regarded as investigational or for research. Specimen Cervical Cells [place] Description C17 [address] OF [facility] Specimen Anatomical Collection Method Collection Time Receive d Time (Source) Location / / Volume Laterality Cervical Cells 12/24/2016 10:45 7 AM CDT 12:10 PM CDT Jeimy Christensen DO LAB - BLOOD ORDERABLES Performing Organization Address City/State/ZIP Code Phon e Number [facility] [address] [place], [place] [phone] [place] [address] documented in this encounter Visit Diagnoses Diagnosis [...] documented as of this encounter Care Teams Position Classification Manager Relationship Specialty Start Date End Date Esmer Roland MD PCP - General Family Practice 09/21/10 01/29/17 Yony Garcia PA-C PCP - Assigned PCP 09/01/16 08/11/18 [address] [place] SONJA CHAMPION [address] Yony Garcia PA-C Assigned PCP 09/01/16 02/05/20 36311 SONJA KRAUSE [address] documented as of this encounter
--- OUTSIDE RECORDS SUMMARY | 2022-05-20 09:00 | XMS_ITS | Encounter Summary ---
:1975 Author Organization [place] Address [address] [place] [address] Care Team Providers Name Role Phone Yony Garcia PA-C Primary Care Provider [phone] Yony Garcia PA-C Unavailable [phone] Yony Garcia PA-C Unavailable [phone] Reason for Visit Reason Comments Pre-Op Exam Encounter Details Date Type Department Care Team Description 01/30/2017 Office Visit [facility] Yony Garcia Preop general physical exam (Primary Dx); Clinic Sara Hoyos PA-C Abnormal uterine bleeding [place] [address] [facility], [address] [place] [address] [place], [place] [phone] (Wo rk) [address] [phone] Social History Tobacco Use Types Packs/Day Years [...] Garcia PA-C - 01/30/2017 8:34 AM CDT [address], [address] [facility] [address] Dept: [phone] PRE-OP EVALUATION: Today's date: 01/30/2017 Dariana Osman (: 1975) presents for pre-operative evaluation assessment as requested by Dr. Jeimy Christensen. 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 Proposed procedure: davinci hysterectomy total [...] 11/09/10 NIL pap (ajk) 11/23/12 ASC-H. 12/25/12 [place]= BRIGID 2. Referred to Ob~Assistant District Attorney, Dr. Christensen 02/18/13 LEEP= Negative, R/P pap [...] cardiovascular risks for perioperative complications such as ([place], PE, VFib and 3?? AV Block): No [...] evaluation report is provided to requesting physician. [place] Preop Guidelines documented in this encounter Nursing [...] 11.0 01/30/2017 [facility] 10e9/L 9:21 AM CDT [facility] RBC Count 4.92 3.8 - 5.2 01/30/2017 [facility] 10e12/L 9:21 AM CDT [facility] Hemoglobin 14.8 11.7 - 01/30/2017 [facility] 15.7 g/dL 9:21 AM CDT [facility] Hematocrit 43.4 35.0 - 01/30/2017 [facility] 47.0 % 9:21 AM CDT [facility] MCV 88 78 - 100 01/30/2017 [facility] [place] 9:21 AM CDT [facility] MCH 30.1 26.5 - 01/30/2017 [facility] 33.0 pg 9:21 AM CDT [facility] MCHC 34.1 31.5 - 01/30/2017 [facility] 36.5 g/dL 9:21 AM CDT [facility] RDW 12.6 10.0 - 01/30/2017 [facility] 15.0 % 9:21 AM CDT [facility] Platelet Count 309 150 - 450 01/30/2017 [place] 10e9/L 9:21 AM CDT [facility] Specimen Anatomical Collection Method Collection Time Receive d Time (Source) Location / / Volume Laterality Blood specimen 01/30/2017 9:09 AM 017 9:10 (specimen) CDT AM CDT Yony Garcia PA-C LAB - BLOOD ORDERABLES Performing Organization Address City/State/ZIP Code Phon e Number [facility] [address] [place], [place] [phone] documented in this encounter Visit Diagnoses Diagnosis Preop general physical exam - Primary Other specified pre-operative examinatio n Abnormal uterine bleeding Unspecified disorder of menstruation and other abnormal bleeding from female genital tract documented in this encounter Additional Health Concerns Assessment Noted Time PHQ-9 Depression Total Score: 2 11/02/2016 7:17 AM CDT documented as of this encounter Care Teams Night Worker Relationship Specialty Start Date End Date Yony Garcia, PCP - General Physician Highway Design Engineer - 01/30/17 07/23/18 [facility] Medical Yony Garcia, PCP - Assigned PCP 09/01/16 08/11/18 [place] 10949 SONJA KRAUSE [phone] Yony Garcia, Assigned PCP 09/01/16 [place] 65[address] SONJA KRAUSE [address] documented as of this encounter
--- OUTSIDE RECORDS SUMMARY | 2022-05-20 09:00 | XMS_ITS | Encounter Summary ---
:1975 Author Organization [place] Address [address] [facility] [place] [address] Care Team Providers Name Role Phone Esmer Roland MD Primary Care Provider [phone] Yony Garcia PA-C Unavailable [phone] Yony Garcia PA-C Unavailable [phone] Reason for Visit Reason Onset Date Comments Schedule Surgery 12/24/2016 Encounter Details Date Type Department Care Team Description 12/24/2016 Telephone [facility] Women's Jeimy Christensen, Schedule Surgery Clinic [place] [address] [address] [facility] [address] [place] [phone] (Wo rk) Social [...] CYSTOSCOPY Date: 02/05/17 Time: 10:15 AM Hospital: [facility] Patient advised of the following: The hospital [...] was placed on the surgery calendar in [place]. Telephone Encounter - Airam Billy - 12/24/2016 3:03 PM CDT Patient prefers to schedule on 02/12, 02/05 or 02/19. Telephone Encounter - Airam Billy - 12/24/2016 1:19 PM CDT Left message for patient to return the call to discuss possible dates to schedule surgery. Telephone Encounter - Airam Billy - 12/24/2016 10:50 AM CDT Surgeon:JEIMY CHRISTENSEN Assist: Yes Location: [facility] Date/time preference: January if possible, [...] as of this encounter Care Teams Post Doctoral Researcher Relationship Specialty Start Date End Date Esmer Roland MD PCP - General Family Practice 09/21/10 01/29/17 Yony Garcia PA-C PCP - Assigned PCP 09/01/16 08/11/18 65423 SONJA KRAUSE [id number] Yony Garcia PA-C Assigned PCP 09/01/16 02/05/20 63077 SONJA KRAUSE [id number] documented as of this encounter
--- OUTSIDE RECORDS SUMMARY | 2022-05-20 09:00 | XMS_ITS | Encounter Summary ---
:1975 Author Organization [place] Address [address] [facility] [place] [place] [address] Care Team Providers Name Role Phone Yony Garcia PA-C Primary Care Provider [phone] Yony Garcia PA-C Unavailable [phone] Yony Garcia PA-C Unavailable [phone] Reason for Visit Reason Onset Date Comments Medication Refill 06/13/2017 DULoxetine (CYMBALTA ) 60 MG EC capsule Encounter Details Date Type Department Care Team Description 06/12/2017 Refill [facility] Yony [facility] [place] (DULoxetine (CYMBALTA) [address] 60 MG EC capsule) [address] [place] [address] [place], [place] [phone] (Wo rk) [address] [phone] Social History Tobacco Use Types Packs/Day Years [...] up . Anais Hinojosa RN -- [facility] OYEE BENEFITS ATTORNEY Telephone Encounter - Madina Douglas - 06/13/2017 8:43 AM CST Requested Prescriptions Pending Prescriptions Disp Refills ??? DULoxetine (CYMBALTA) 60 MG EC capsule [Pharmacy Med Name: DULOXETINE HCL 60MG CPEP] 90 capsule 1 Last Written Prescription Date: 11/25/16 Last Fill Quantity: 90, # refills: 1 Last Office Visit with [facility], [facility] or [facility] prescribing provider: 01/30/2017 Future Office Visit: [...] days with authorizing provider. See chart review. OYEE BENEFITS ATTORNEY documented in this encounter Plan of Treatment Not on filedocumented as of this encounter Visit Diagnoses Diagnosis Major depressive disorder, recurrent epi sode, mild (H) Major depressive disorder, recurrent epi sode, mild documented in this encounter Additional Health Concerns Assessment Noted Time PHQ-9 Depression Total Score: 2 11/02/2016 7:17 AM CDT documented as of this encounter Care Teams Stand In Relationship Specialty Start Date End Date Yony Garcia, PCP - General Physician Annealing Furnace Operator - 01/30/17 07/23/18 [facility] Yony Garcia, PCP - Assigned PCP 09/01/16 08/11/18 [facility] [id number] SONJA KRAUSE [id number] Yony Garcia, Assigned PCP 09/01/16 [facility] [id number] SONJA KRAUSE [id number] documented as of this encounter
--- OUTSIDE RECORDS SUMMARY | 2022-05-20 09:00 | XMS_ITS | Encounter Summary ---
:1975 Author Organization [place] Address [address] [facility] [place] [address] Care Team Providers Name Role Phone Esmer Roland MD Primary Care Provider Reason for Visit Reason Onset Date Comments Patient Reminder 08/08/2016 Past due for pap sme ar Encounter Details Date Type Department Care Team Description 08/08/2016 Telephone [facility] Esmer Roland Patient Reminder (Past Clinic Sara Byrd MD due for pap smear) [address] [place] [address], [address] [place] [address] [address] [place] [address] [place], [place] [phone] (Wo rk) [address] [phone] Social History Tobacco Use Types Packs/Day Years [...] her of need for pap and offered [facility] phone number for scheduling. Pt declined phone number and thanked for the call. If no appt within 2 weeks (08/22)17 pt will be considered lost to pap tracking f/u. Yolis Betancourt, Trading Analyst Pap Tracking T SUPERVISOR documented in this encounter Plan of Treatment Not on filedocumented as of this encounter Visit Diagnoses Not on filedocumented in this encounter Additional Health Concerns Assessment Noted Time PHQ-9 Depression Total Score: 3 05/19/2022 7:03 AM JOINT SUPERVISOR documented as of this encounter Care Teams Senior Geologist Relationship Specialty Start Date End Date Esmer Roland MD PCP - General Family Practice 09/21/10 01/29/17 documented as of this encounter
--- OUTSIDE RECORDS SUMMARY | 2022-05-20 09:00 | XMS_ITS | Encounter Summary ---
:1975 Author Organization [place] Address [address] [place] [address] Care Team Providers Name Role Phone Yony Garcia PA-C Unavailable [phone] Erik Rivas Primary Care Provider Yony Garcia PA-C Unavailable [phone] Reason for Visit Reason Comments Flank Pain Encounter Details Date Type Department Care Team Description 07/24/2018 - [facility] Orion Akers MD [facility] [address] [place] [address] Right kidney stone 07/25/2018 [facility] PreOP/PostOP Andrea Dumas, DO [address] [place] [address] [address] [place] [address] Social History Tobacco Use Types [...] Comments Blood Pressure 136/92 07/25/2018 5:45 PM CONVERTER SUPERVISOR Pulse 72 07/25/2018 5:45 PM CONVERTER SUPERVISOR Temperature 36.8 ??C (98.3 ??F) 07/25/2018 5:45 PM CONVERTER SUPERVISOR Respiratory Rate 13 07/25/2018 5:45 PM CONVERTER SUPERVISOR Oxygen Saturation 99% 07/25/2018 5:45 PM CONVERTER SUPERVISOR Inhaled Oxygen Concentration - - Weight 94.8 kg (209 lb) 07/24/2018 6:40 PM CONVERTER SUPERVISOR Height 167.6 cm (5' 6) 07/24/2018 11:33 PM CONVERTER SUPERVISOR Body Mass Index 33.73 07/24/2018 6:40 PM CONVERTER SUPERVISOR documented in this encounter Discharge Summaries Gwendolyn [...] These results will be followed up by [facility] Course This is a 40 [...] mouth At Bedtime Allergies No Known Allergies ERTER SUPERVISOR documented in this encounter Discharge Instructions Discharge InstructionsHannah Shaffer RN - 07/25/2018 4:49 PM CST CYSTOSCOPY DISCHARGE INSTRUCTIONS [facility] / UROLOGY [facility] [phone] YOU MAY GO BACK TO YOUR NORMAL [...] STILL NOT ABLE TO URINATE (PASS WATER). ERTER SUPERVISOR documented in this encounter Medications at Time [...] Will be sent to PeriOp with pt. Wire Stripping Machine Operator - Pt DOES NOT need an deaf interpreter.. Beta Glenys - Pt is NOT [...] Op Nurse Handoff Report was reviewed by: ERTER SUPERVISOR Connie Jerry RN - 07/24/2018 11:41 PM CST ROOM # 203 Living Situation (if not independent, order SW consult): in [place] with nallely Facility name: electrical tryout person: Connie hodge Activity level at baseline: Ind Activity level on admit: Ind Patient registered to observation; given Patient Bill of Rights; given the opportunity to ask questions about observation status and their plan of care. Patient has been oriented to the observation room, bathroom and call light is in place. Discussed discharge goals and expectations with patient/family. ERTER SUPERVISOR documented in this encounter H&P Notes Andrea [...] 0.90 ANIONGAP 5 RONAK 8.8 GLC 84 ERTER SUPERVISOR documented in this encounter Consult Notes Angel [...] MT: Name: DARIANA OSMAN MRN: [id number] Account: [id number] : 1975 Consult Date: 07/25/2018 Document: [id number] ERTER SUPERVISOR documented in this encounter ED Notes Connie [...] Assist. Lift room needed: No. Bariatric: No Wire Stripping Machine Operator Needed: No Isolation: No. Infection: Not Applicable. [...] on July 24, 2018 at 10:35 PM ERTER SUPERVISOR Karrie Newton RN - 07/24/2018 6:43 PM CST Patient to ED with right flank pain, radiates to groin. Started today. Has h/o kidney stones. ERTER SUPERVISOR Orion Akers MD - 07/24/2018 6:12 PM [...] and the provider's statements to me. 07/24/2018 [facility] EMERGENCY DEPARTMENT Orion Akers MD 07/25/18 0044 ERTER SUPERVISOR documented in this encounter Miscellaneous Notes Op [...] The procedure began by introducing a 22 Lithuanian rigid cystoscope through the urethra into the [...] RONDA Name: DARIANA OSMAN MRN: [id number] Account: [id number] : 1975 Procedure Date: 07/25/2018 Document: [id number] ERTER SUPERVISOR Plan of Care - Tobi Burgos RN - 07/25/2018 12:46 PM CST PRIMARY DIAGNOSIS: ACUTE RENAL COLIC OUTPATIENT/OBSERVATION GOALS TO BE MET BEFORE DISCHARGE 1. Pain Status: Improved but still requiring IV narcotics. 2. Tolerating adequate PO diet: NPO 3. Surgical Intervention planned: Yes 4. Cleared by consultants (if involved): No 5. Return to near baseline physical activity: Yes Mammography Supervisor Nurse Safe discharge environment identified: Yes Barriers [...] met and patient is ready for discharge. ERTER SUPERVISOR Plan of Care - Toib Burgos RN - 07/25/2018 8:30 AM CST PRIMARY DIAGNOSIS: ACUTE RENAL COLIC OUTPATIENT/OBSERVATION GOALS TO BE MET BEFORE DISCHARGE 1. Pain Status: Improved but still requiring IV narcotics. 2. Tolerating adequate PO diet: Pt NPO for Urology consult 3. Surgical Intervention planned: Yes-OR at 1405 4. Cleared by consultants (if involved): No 5. Return to near baseline physical activity: Yes Mammography Supervisor Nurse Safe discharge environment identified: Yes Barriers [...] met and patient is ready for discharge. ERTER SUPERVISOR Plan of Care - Connie Jerry RN [...] ind for activity - up ad praveen Mammography Supervisor Nurse Safe discharge environment identified: Yes Barriers [...] sediment noted, IVF, urology in AM, NPO ERTER SUPERVISOR Plan of Care - Connie Jerry RN [...] ind for activity - up ad praveen Mammography Supervisor Nurse Safe discharge environment identified: Yes Barriers [...] strain urine, IVF, urology in AM, NPO ERTER SUPERVISOR Pharmacy-Admission Medication History - Vera Duvall, [facility] - 07/24/2018 11:07 PM CST .Admission medication history interview status for this patient is complete. See [facility] admission navigator for allergy information, prior to admission medications and immunization status. Medication history interview source(s):Patient Medication history resources (including written lists, pill bottles, clinic record):None Primary pharmacy: Not ID'd Changes made to CUT AND COVER LINE WORKER medication list: Added: None Deleted: None Changed: [...] Bedtime 07/23/2018 at HS Yes Reported, Patient ERTER SUPERVISOR documented in this encounter Plan of Treatment Not on filedocumented as of this encounter Procedures Procedure Name Priority Date/Time Associated Comments Diagnosis SURGICAL PATHOLOGY Routine 07/25/2018 4:54 PM Res ults for this EXAM CONVERTER SUPERVISOR procedure are i n the results section. STONE ANALYSIS Routine 07/25/2018 4:54 PM Right kidney stone R esults for this CONVERTER SUPERVISOR procedure are i n the results section. XR SURGERY TAMMY Routine 07/25/2018 4:50 PM Result s for this FLUORO LESS THAN 5 CONVERTER SUPERVISOR procedure are in MIN W STILLS the results section. CYSTOSCOPY, WITH 07/25/2018 4:16 PM unknown RETROGRADE PYELOGRAM CONVERTER SUPERVISOR AND CALCULUS REMOVAL BASIC METABOLIC PANEL Routine 07/25/2018 5:55 AM Right kidney stone Results for this CONVERTER SUPERVISOR procedure are i n the results section. CT ABDOMEN PELVIS W/O STAT 07/24/2018 7:55 PM Results for this CONTRAST CONVERTER SUPERVISOR procedure are i n the results section. BASIC METABOLIC PANEL STAT 07/24/2018 7:04 PM Results for this CONVERTER SUPERVISOR procedure are i n the results section. ROUTINE UA WITH STAT 07/24/2018 7:00 PM Result s for this MICROSCOPIC CONVERTER SUPERVISOR procedure are i n the results section. documented in this encounter Results Surgical pathology exam (07/25/2018 4:54 PM CONVERTER SUPERVISOR) Component Value Ref Test Analysis Performed At [facility] Range Method Time Signature Copath Report Patient Name: DARIANA OSMAN MR#: [id number] Specimen #: [id number] Collected: 07/25/2018 Received: 07/27/2018 Reported: 07/27/2018 12:02 [...] of this testing was completed at the [facility], with the professional compo nent performed at the [facility], [address] [place] [address] ??[phone] ([phone]) CPT Codes: A: 77383-AJ COLLECTION SITE: Client: [facility] Location: RHPRE (R) Specimen Anatomical Collection Method Collection Time Receive d Time (Source) Location / / Volume Laterality 07/25/2018 4:54 PM 9 8:00 CONVERTER SUPERVISOR AM CONVERTER SUPERVISOR Andrea SHETTY - [facility] HEBERT Performing Organization Address City/State/ZIP Code Phon e Number COPATH Stone analysis (07/25/2018 4:54 PM CONVERTER SUPERVISOR) [facility] Method Time Signature Stone SEE NOTE 07/31/2018 [place] Composition 9:30 AM [facility] Comment: (Note) Calculi composed primarily of calcium [...] omposition determined by FTIR analysis. Performed by [email or web address], [address] [place] [id number] [email or web address], Oswaldo Pierson MD, Lab. Director Calculi Number 1 07/31/2018 9:30 AM CONVERTER SUPERVISOR [facility] Calculi Size 1 to 4 mm 07/31/2018 9:30 AM CONVERTER SUPERVISOR [facility] Calculi Description SEE NOTE 07/31/2018 9:[address] [facility] Comment: (Note) Specimen consists of a single, small, brown/sanchez, irregular calculus. Stone Mass 18 mg 07/31/2018 9:30 AM CONVERTER SUPERVISOR [facility] Specimen (Source) Anatomical Collection Method Collection Time Re ceived Time Location / / Volume Laterality Calculus specimen STRUCTURE OF RIGHT 07/25/2018 4:54 P M (specimen) URETER / Unknown CONVERTER SUPERVISOR Angel Bartlett MD LAB - BODY FLUIDS ORDERABLES Performing Organization Address City/State/ZIP Code Phon e Number M [facility] [address] [place] [address] [facility] [address] [phone] XR Surgery TAMMY L/T 5 Min Fluoro w Stills (07/25/2018 4:50 PM CONVERTER SUPERVISOR) Anatomical Region Laterality Modality Abdomen/Pelvis Radio Fluoroscopy Specimen (Source) Anatomical Location Collection Method / Collectio n Time Received Time / Laterality Volume Impressions 07/25/2018 5:22 PM CONVERTER SUPERVISOR IMPRESSION: Single provided image of retrograde ureterogram without significant hydronephrosis. Filling defe ct in the distal ureter presumably represents an air bubble. Ple ase see operative report for further details. ALLAN HANNA MD Narrative 07/25/2018 5:22 PM CONVERTER SUPERVISOR SURGERY C-ARM FLUOROSCOPY LESS THAN 5 MINUTES WITH STILLS ??07/25/2018 4:50 PM COMPARISON: 01/18/2016. HISTORY: CT abdomen pelvis 07/24/2018. NUMBER OF IMAGES ACQUIRED: 1 VIEWS: 1 FLUOROSCOPY TIME: .01 minutes. Procedure Note Allan Hanna MD - 07/25/2018 SURGERY C-ARM FLUOROSCOPY LESS THAN 5 NE NUTES WITH STILLS 07/25/2018 4:50 PM COMPARISON: [...] Basic metabolic panel (07/25/2018 5:55 AM [facility]) athologist Signature Sodium 142 133 - 144 07/25/2018 [facility] mmol/L 6:23 AM [facility] Potassium 3.9 3.4 - 5.3 07/25/2018 [facility] mmol/L 6:23 AM [facility] Chloride 113 (H) 94 - 109 07/25/2018 [facility] mmol/L 6:23 AM [facility] Carbon Dioxide 26 20 - 32 07/25/2018 [facility] mmol/L 6:29 AM [facility] Anion Gap 3 3 - 14 07/25/2018 [facility] mmol/L 6:29 AM [facility] Glucose 99 70 - 99 07/25/2018 [facility] mg/dL 6:29 AM [facility] Urea Nitrogen 9 7 - 30 07/25/2018 [facility] mg/dL 6:29 AM [facility] Creatinine 0.80 0.52 - 07/25/2018 [facility] 1.04 mg/dL 6:29 AM [facility] GFR Estimate >90 >60 07/25/2018 [place] mL/min/{1. 6:29 AM [facility] 73_m2} HOSPITAL Comment: Non GFR Calc Starting 05/26/2018, serum creatinine ba sed estimated GFR (eGFR) will be calculated using the Chronic Kidney Dise [facility] Epidemiology Collaboration (CKD-EPI) equation. GFR Estimate If >90 >60 mL/min/{1.73_m2} 07/25/2018 6: 29 AM [facility] Comment: GFR Calc Starting 05/26/2018, serum creatinine ba sed estimated GFR (eGFR) will be calculated using the Chronic Kidney Dise [facility] Epidemiology Collaboration (CKD-EPI) equation. Calcium 7.5 (L) 8.5 - 10.1 mg/dL 07/25/2018 6:[address] [facility] Specimen Anatomical Collection Method Collection Time Receive d Time (Source) Location / / Volume Laterality Blood specimen 07/25/2018 5:55 AM 019 5:56 (specimen) CONVERTER SUPERVISOR AM CONVERTER SUPERVISOR Andreaemmett Dumas DO LAB - BLOOD ORDERABLES Performing Organization Address City/State/ZIP Code Phon e Number M [facility] [address] [place], [place] [address] [facility] [address] [place], [place] [address] [facility] [phone] CT Abdomen Pelvis w/o Contrast (07/24/2018 7:55 PM CONVERTER SUPERVISOR) Anatomical Region Laterality Modality Abdomen/Pelvis, SUBRAD CT BODY, UMP CT ABDOMEN PELVIS, Computed Tomography RAD CT Specimen (Source) Anatomical Location Collection Method / Collectio n Time Received Time / Laterality Volume Impressions 07/24/2018 10:19 PM CONVERTER SUPERVISOR IMPRESSION: 1. 3 mm distal right ureter stone with o bstruction. 2. Small left renal angiomyolipoma. MANUEL ALMAZAN MD Narrative 07/24/2018 10:[address] ABDOMEN/PELVIS WITHOUT CONTRAST July 24, 2018 [...] Basic metabolic panel (07/24/2018 7:04 PM [facility]) athologist Signature Sodium 134 133 - 144 07/24/2018 [facility] mmol/L 7:37 PM [facility] Potassium 3.8 3.4 - 5.3 07/24/2018 [facility] mmol/L 7:37 PM [facility] Chloride 104 94 - 109 07/24/2018 [facility] mmol/L 7:37 PM [facility] Carbon Dioxide 25 20 - 32 07/24/2018 [facility] mmol/L 7:43 PM [facility] Anion Gap 5 3 - 14 07/24/2018 [facility] mmol/L 7:43 PM [facility] Glucose 84 70 - 99 07/24/2018 [facility] mg/dL 7:43 PM [facility] Urea Nitrogen 12 7 - 30 07/24/2018 [facility] mg/dL 7:43 PM [facility] Creatinine 0.90 0.52 - 07/24/2018 [facility] 1.04 mg/dL 7:43 PM [facility] GFR Estimate 80 >60 07/24/2018 [place] mL/min/{1. 7:43 PM [facility] 73_m2} HOSPITAL Comment: Non GFR Calc Starting 05/26/2018, serum creatinine ba sed estimated GFR (eGFR) will be calculated using the Chronic Kidney Dise [facility] Epidemiology Collaboration (CKD-EPI) equation. GFR Estimate If >90 >60 mL/min/{1.73_m2} 07/24/2018 7: 43 PM [facility] Comment: GFR Calc Starting 05/26/2018, serum creatinine ba sed estimated GFR (eGFR) will be calculated using the Chronic Kidney Dise [facility] Epidemiology Collaboration (CKD-EPI) equation. Calcium 8.8 8.5 - 10.1 mg/dL 07/24/2018 7:[address] [facility] Specimen Anatomical Collection Method Collection Time Receive d Time (Source) Location / / Volume Laterality Blood specimen 07/24/2018 7:04 PM 019 7:14 (specimen) CONVERTER SUPERVISOR PM CONVERTER SUPERVISOR Orion Akers MD LAB - BLOOD ORDERABLES Performing Organization Address City/State/ZIP Code Phon e Number M [facility] [address] [place], [place] [address] [facility] [address] [phone] (ABNORMAL) UA with Microscopic (07/24/2018 7:00 PM CONVERTER SUPERVISOR) [facility] Method Time Signature Color Urine Yellow 07/24/2018 [facility] 7:36 PM [facility] Appearance Urine Slightly 07/24/2018 [facility] Cloudy 7:36 PM [facility] Glucose Urine Negative NEG^Negat 07/24/2018 [facility] bakari mg/dL 7:36 PM [facility] Bilirubin Urine Negative NEG^Negat 07/24/2018 [facility] bakari 7:36 PM [facility] Ketones Urine 5 (A) NEG^Negat 07/24/2018 [facility] bakari mg/dL 7:36 PM [facility] Specific [place] 1.028 1.003 - 07/24/2018 [facility] Urine 1.035 7:36 PM [facility] Blood Urine Large (A) NEG^Negat 07/24/2018 [facility] bakari 7:36 PM [facility] pH Urine 5.0 5.0 - 7.0 07/24/2018 [facility] pH 7:36 PM [facility] Protein Albumin Negative NEG^Negat 07/24/2018 [facility] Urine bakari mg/dL 7:36 PM [facility] Urobilinogen Negative 0.0 - 2.0 07/24/2018 [facility] mg/dL mg/dL 7:35 PM [facility] Nitrite Urine Negative NEG^Negat 07/24/2018 [facility] bakari 7:36 PM [facility] Leukocyte Negative NEG^Negat 07/24/2018 [facility] Esterase Urine bakari 7:36 PM [facility] Source Midstream 07/24/2018 [facility] Urine 7:21 PM [facility] WBC Urine 3 0 - 5 07/24/2018 [facility] /HPF 7:36 PM [facility] RBC Urine >182 (H) 0 - 2 07/24/2018 [facility] /HPF 7:36 PM [facility] Squamous 1 0 - 1 07/24/2018 [place] Epithelial /HPF /HPF 7:36 PM [facility] Mucous Urine Present (A) NEG^Negat 07/24/2018 [place] bakari /LPF 7:36 PM [facility] Specimen (Source) Anatomical Collection Method Collection Time Re ceived Time Location / / Volume Laterality Examination of 07/24/2018 7:00 07/24/2018 7:21 midstream urine PM CONVERTER SUPERVISOR PM CONVERTER SUPERVISOR specimen (procedure) Orion Akers MD LAB - URINE ORDERABLES Performing Organization Address City/State/ZIP Code Phon e Number M [place] [address] [place] [address] [facility] [address] [phone] documented in this encounter Visit Diagnoses Diagnosis Right kidney stone Calculus of kidney Ureterolithiasis Calculus of ureter documented in this encounter Administered Medications Inactive Administered Medications - up to 3 most recent administrations Medication Order MAR Action Action Date Dose Rate Site 0.9% sodium chloride BOLUS New Bag 07/25/2018 1:49 AM CONVERTER SUPERVISOR 500 mLs 500 mL/hr Intravenous, 500 mL, [...] mL dextrose PRE-MIX Routine, 2 g, Intravenous, PRE-OP/PRE-WA OCEDURE, Starting on Fri07/25/18 at 1702, For 1 dose, Give first dose within 1 bibi r PRIOR to incision. If patient weight is greater than or equal to 120 kg increase dose to 3 g., Indications: Perioperative Pharmacoprophylaxis, Pre-procedure HYDROmorphone (PF) (DILAUDID) injection 0.2 Given 07/10 12:54 PM CONVERTER SUPERVISOR 0.2 mg mg 0.2 mg, Intravenous, EVERY [...] over 2-5 minutes. Given 07/25/2018 9:02 AM CONVERTER SUPERVISOR 0.2 mg Given 07/25/2018 6:23 AM CONVERTER SUPERVISOR 0.2 mg HYDROmorphone (PF) (DILAUDID) injection 0.5 Given 07/24/2018 9:46 PM CONVERTER SUPERVISOR 0.5 mg mg 0.5 mg, Intravenous, EVERY 30 MIN PRN, moderate to severe pain, Starting on Fri07/24/18 at 1907, For 3 doses, For ordered IV doses 0.1-4 mg give IV Push undiluted. Administer each 2mg over 2-5 minutes. Given 07/24/2018 8:20 PM CONVERTER SUPERVISOR 0.5 mg HYDROmorphone (PF) (DILAUDID) injection 0.5 Given 07/24/2018 7:18 PM CONVERTER SUPERVISOR 0.5 mg mg 0.5 mg, Intravenous, ONCE, On Fri07/24/18 at 1911, For 1 dose, For ordered IV doses 0.1-4 mg give IV Push undiluted. Administer each 2mg over 2-5 minutes. ketorolac (TORADOL) injection 15 mg Given 07/24/2018 7:22 PM CONVERTER SUPERVISOR 15 mg 15 mg, Intravenous, ONCE, On [...] injection 0.5 mg Given 07/25/2018 11:25 AM CONVERTER SUPERVISOR 0.5 mg 0.5 mg, Intravenous, EVERY 6 [...] injection 4 mg Given 07/24/2018 7:19 PM CONVERTER SUPERVISOR 4 mg 4 mg, Intravenous, ONCE, Administer over 2-5 Minutes, On Fri07/24/18 at 1908, For 1 dose, Irritant. For ordered IV doses 0.1-4 mg, give IV Push undiluted over 2-5 minutes. ondansetron (ZOFRAN) injection 4 mg Given 07/25/2018 12:43 PM CONVERTER SUPERVISOR 4 mg 4 mg, Intravenous, EVERY 6 [...] 0.9% infusion New Bag 07/25/2018 9:01 AM CONVERTER SUPERVISOR 125 mL/hr at 125 mL/hr, Intravenous, CONTINUOUS, Starting on Fri07/24/18 at 2315, Until 07/25/18 at 1959 Rate/Dose Verify 07/25/2018 8:13 AM CONVERTER SUPERVISOR 125 mL/hr New Bag 07/24/2018 11:54 PM CONVERTER SUPERVISOR 125 mL/hr documented in this encounter Active and Recently Administered Medications Times are shown in CONVERTER SUPERVISOR. Scheduled Medication Order 07/23/2018 07/24/2018 07/25/2018 0.9% [...] (New Bag - Provider: Cj Reyes APRN PLASTIC FRAME INSERTER)[id number] (Anesthesia Volume Adjustment - Provider: Cj Reyes [...] Depression Total Score: 2 07/18/2017 8:08 AM CONVERTER SUPERVISOR documented as of this encounter Care Teams Process Engineering Manager Relationship Specialty Start Date End Date Yony Garcia PA-C PCP - Assigned PCP 09/01/16 08/11/18 [id number] SONJA KRAUSE [id number] Erik Rivas PCP - General Family Practice 07/24/[address] [address] Yony Garcia PA-C Assigned PCP 09/01/16 02/05/20 [id number] SONJA KRAUSE [id number] documented as of this encounter
--- OUTSIDE RECORDS SUMMARY | 2022-05-20 09:00 | XMS_ITS | Encounter Summary ---
:1975 Author Organization [place] Address [address] [place] [address]. [place] [address] Care Team Providers Name Role Phone Yony Garcia PA-C Primary Care Provider [phone] Yony Garcia PA-C Unavailable [phone] Yony Garcia PA-C Unavailable [phone] Reason for Visit Reason Onset Date Comments Refill Request 07/17/2017 Encounter Details Date Type Department Care Team Description 07/17/2017 [facility] Yony Garcia, Refill Request Sara YARBROUGH [address] [facility], [address] [place] [address] [address] [place] [address] [place] [address] [phone] Social History Tobacco Use Types Packs/Day Years [...] RN - 07/17/2017 3:47 PM CST Duplicate RIAL STOCKKEEPER YARD Telephone Encounter - Mayela Reese RN - 07/17/2017 3:47 PM MATERIAL STOCKKEEPER YARD Message from [email or web address]: Original authorizing provider: ZENON Balderas VishalCasper Osman would like a refill of the following medications: DULoxetine (CYMBALTA) 60 MG EC capsule [Yony Garcia PA-C] Preferred pharmacy: [facility] SONJA AYALA - [address] [address] Comment: RIAL STOCKKEEPER YARD documented in this encounter Plan of Treatment Not on filedocumented as of this encounter Visit Diagnoses Diagnosis Major depressive disorder, recurrent epi sode, mild (H) Major depressive disorder, recurrent epi sode, mild documented in this encounter Additional Health Concerns Assessment Noted Time PHQ-9 Depression Total Score: 2 07/18/2017 8:08 AM MATERIAL STOCKKEEPER YARD documented as of this encounter Care Teams Dimension Warehouse Supervisor Relationship Specialty Start Date End Date Yony Garcia, PCP - General Physician Hhas - 01/30/17 07/23/18 ZENON Medical Yony Garcia, PCP - Assigned PCP 09/01/16 08/11/18 ZENON [address] [address] [address] Yony Garcia, Assigned PCP 09/01/16 ZENON [address] [address] [address] documented as of this encounter
--- OUTSIDE RECORDS SUMMARY | 2022-05-20 09:00 | XMS_ITS | Encounter Summary ---
:1975 Author Organization [place] Address [address] [facility] [place] [address] Care Team Providers Name Role Phone oYny Garcia PA-C Primary Care Provider [phone] Yony Garcia PA-C Unavailable [phone] Yony Garcia PA-C Unavailable [phone] Reason for Visit Auth/Cert Specialty Diagnoses / Procedures Referred By Contact Refer red To Contact Surgery Diagnoses post ablation pain syndrome Rh Periop Services Procedures DAVINCI HYSTERECTOMY TOTAL [address] [place], [place] [address] Phone: Fax: Referral ID Status Reason Start Date Expiration Date Visits Requ ested Visits Authorized [id number] 1 1 Encounter Details Date Type Department Care Team Description 02/05/2017 Surgery [facility] Jeimy Christensen DAVINCYobani HYSTERECTOMY [place] PeriOp Serv[facility] cindy Sellers, TOTAL, cystoscopy, [address] Endometriosis [place] [address] [id number] Surgery Details Date/Time Status Location OR Service [...] Dr. Jeimy Christensen DO Obstetrics and Gynecology [facility] documented in this encounter Discharge Instructions Discharge Andreia Dave RN - 02/05/2017 1:16 PM CDT Follow up in 1-2 weeks Call [phone] or [phone] for appointment Call and ask to be seen or talk to a doctor for the following: (You can go to the ob triage button On answering service line) . Increased bleeding, fever, general unwell feeling or increased pain. Dr. Jeimy Christensen, DO COPYWRITER [facility] GENERAL ANESTHESIA OR SEDATION ADULT DISCHARGE INSTRUCTIONS [...] Garcia PA-C - 01/30/2017 8:34 AM CDT [facility], [address] [facility] [id number] Dept: [phone] PRE-OP EVALUATION: Today's date: 01/30/2017 Dariana Osman (: 1975) presents for pre-operative evaluation assessment as requested by Dr. Jeimy Christensen. 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 Proposed procedure: davinci hysterectomy total Date [...] 11/09/10 NIL pap (ajk) 11/23/12 ASC-H. 12/25/12 Irmo= BRIGID 2. Referred to Ob~Operator Receptionist, Dr. Christensen 02/18/13 LEEP= Negative, R/P pap [...] cardiovascular risks for perioperative complications such as ([place], PE, VFib and 3?? AV Block): No [...] evaluation report is provided to requesting physician. [facility] Preop Guidelines documented in this encounter Nursing Notes Awilda Sohok RN - 02/05/2017 9:55 AM CDT Late Entry: No pre op EKG needed per Dr. Us. 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 Manager Of Disaster Recovery: Allyson Holloway SA PROCEDURES: 1. Robotic-assisted total [...] clindamycin preoperatively. A Brock catheter was placed. [place] speculum was placed in the patient's vaginal vault. Anterior lip of cervix was grasped with a single-tooth tenaculum, and a [id number] suture of 0 monocryl is placed on the anterior lip of the cervix, and then the x-largeVCare manipulator was placed. The bivalve speculum was removed. Attention was turned to the patient's abdomen, where the [place] clamps were clamped on umbilicus and a [...] then the ports were placed. An air-seal curriculum assistant principal port was placed in the right medial [...] tolerated the procedure well. Dr. Jeimy Christensen, COPYWRITER [facility] Brief Op Note - Jeimy Christensen DO - 02/05/2017 9:50 AM CDT [facility] Brief Operative Note Pre-operative diagnosis: post ablation [...] Christensen DO - 02/05/2017 9:48 AM CDT [facility] Brief Operative Note Pre-operative diagnosis: post ablation [...] Component Value Ref Test Analysis Performed At [facility] gist Range Method Time Signature Copath Report Patient Name: DARIANA OSMAN MR#: [id number] Specimen #: [id number] Collected: 02/05/2017 Received: 02/05/2017 Reported: 02/06/2017 11:14 [...] B. Microscopic evaluation performed. CPT Codes: A: 41949-TY3 B: 17624-AI4 TESTING LAB LOCATION: [address] ??[address] COLLECTION SITE: Client: [facility] Location: RHOR (R) Specimen (Source) Anatomical Collection Method Collection Time Re ceived Time Location / / Volume Laterality Tissue specimen UTERUS AND CERVIX, 02/05/2017 8:48 AM (specimen) CS / Unknown CDT Tissue specimen PELVIC WALL 02/05/2017 9:19 AM (specimen) STRUCTURE / CDT Unknown Jeimy Christensen DO LAB - BEAKER AP Performing Organization Address City/[facility]/ZIP [facility] Phon e Number COPATH HCG qualitative urine (02/05/2017 6:15 AM CDT) P athologist Signature HCG Qual Urine Negative NEG^Negati 02/05/2017 [facility] 6:34 AM CDT [facility] Comment: This test is for screening purposes. ??R esults should be interpreted along with the clinical picture. ??Confirmation te sting is available if warranted by ordering [id number], HCG Quantitative Pregna ncy. Specimen Anatomical Collection Method Collection Time Receive d Time (Source) Location / / Volume Laterality Urine specimen URINE SPECIMEN / 02/05/2017 6:15 AM 6:24 (specimen) Unknown CDT AM CDT Claudy Villalobos MD LAB - URINE ORDERABLES Performing Organization Address City/[facility]/ZIP [facility] Phon e Number M [address] [place] [address] documented in this encounter Visit Diagnoses Not [...] 801 (Given - Provider: Clare Das, OWEN SILK EXAMINER) 2 g, Intravenous, PRE-OP/PRE-PROCEDURE, Starting Fri02/05/17 at [...] RN) 0.3-0.5 mg, Intravenous, EVERY 10 MIN AK N, Starting Fri02/05/17 at 1009, Until Fri02/05/17 [...] documented as of this encounter Care Teams Athletic Team Physician Relationship Specialty Start Date End Date Yony Garcia, PCP - General Physician Manager Of Disaster Recovery - 01/30/17 07/23/18 ZEN[facility] Medical Yony Garcia, PCP - Assigned PCP 09/01/16 08/11/18 ZEN[facility] [address] [address] [id number] Yony Garcia, Assigned PCP 09/01/16 ZENON [address] [address]USE [id number] documented as of this encounter
--- OUTSIDE RECORDS SUMMARY | 2022-05-20 09:00 | XMS_ITS | Encounter Summary ---
:1975 Author Organization [place] Address [address] [place] [address] Care Team Providers Name Role Phone Esmer Roland MD Primary Care Provider [phone] Yony Garcia PA-C Primary Care Provider [phone] Yony Garcia PA-C Unavailable [phone] Yony Garcia PA-C Unavailable [phone] Reason for Referral NIRAJ Physical Therapy - Closed Specialty Diagnoses / Procedures Referred By Contact Refer red To Contact Diagnoses Stress incontinence of urine Jeimy Christensen, [facility] [address] [place], [place] [address] [place] [address] Phone: [phone] Referral ID Status Reason Start Date Expiration Date Visits Requ ested Visits Authorized [id number] Closed 12/24/2016 12/24/2017 1 1 Encounter Details Date Type Department Care Team Description 12/24/2016 [facility] in [facility] (Primary Dx[facility] DO [place] Stress incontinence of urine [place] [address] [place], [place] [address] [address] [place], [place] [phone] [address] (Work) [phone] Social History Tobacco Use Types Packs/Day Years [...] Dr. Fabiana Christensen DO Obstetrics and Gynecology [facility] documented in this encounter Progress Notes Jeimy Christensen DO - 12/24/2016 10:24 AM CDT Surgeon:JEIMY CHRISTENSEN Assist: Yes Location: [facility] Date/time preference: January if possible, otherwise february Surgery: Robotic assisted total laparoscopic hysterectomy, cystoscopy. d Length of Surgery: 1.5 hours Diagnosis: Post ablation pain syndrome Anesthesia type: GENERAL Special instructions / equipment: Am admit or same day: SAME DAY Bowel prep: Yes Pre op: PCP Office visit with surgeon prior to surgery: No CONTRACTOR documented in this encounter Plan of Treatment [...] Laterality Volume Narrative 01/18/2017 12:27 PM CDT [facility] Obstetrics [facility] Gynecology [address] [place] [address] ?? ULTRASOUND - PELVIC TRANSPORTATION SOLUTIONS MANAGER ?? Referring MD: Jeimy Christensen Primary Clinic: [facility] ? CLINICAL INFORMATION ?? Indications for [...] Jeimy Christensen, DO ?? Obstetrics and Gynecology [facility] Jeimy Christensen DO IMG US ORDERABLES [...] documented as of this encounter Care Teams Press Operator Heavy Duty Relationship Specialty Start Date End Date Esmer Roland, PCP - General Family Practice 09/21/10 01/29/17 Yony Garcia, PCP - General Physician Sql Ssrs Developer - 01/30/17 07/23/18 ZEN[facility] Medical Yony Garcia, PCP - Assigned PCP 09/01/16 08/11/18 ZEN[facility] [address] [address] [id number] Yony Garcia, Assigned PCP 09/01/16 ZENON [address] [address] [id number] documented as of this encounter
--- OUTSIDE RECORDS SUMMARY | 2022-05-20 09:00 | XMS_ITS | Encounter Summary ---
:1975 Author Organization [place] Address [address] [place] [address] Care Team Providers Name Role Phone Esmer Roland MD Primary Care Provider [phone] Yony Garcia PA-C Unavailable [phone] Yony Garcia PA-C Unavailable [phone] Encounter Details Date Type Department Care Team Description 01/17/2017 Radiant Appointment [facility] Jeimy Christensen pain in Clinic [place] DO [place] female [address] [facility] [phone] Social History Tobacco Use Types Packs/Day Years [...] Narrative 01/18/2017 12:27 PM CDT [facility] Obstetrics & Gynecology [address] [facility]. [address] [place] [address] ?? ULTRASOUND - PELVIC HEEL STAINER ?? Referring MD: Jeimy Christensen Primary Clinic: [facility] ? CLINICAL INFORMATION ?? Indications [...] Jeimy Christensen, DO ?? Obstetrics and Gynecology [facility] Jeimy Christensen DO IMG US ORDERABLES documented in this encounter Visit Diagnoses Diagnosis Pelvic pain in female Unspecified symptom associated with fema le genital organs documented in this encounter Additional Health Concerns Assessment Noted Time PHQ-9 Depression Total Score: 2 11/02/2016 7:17 AM CDT documented as of this encounter Care Teams Spiritual Care Coordinator Relationship Specialty Start Date End Date Esmer Roland MD PCP - General Family Practice 09/21/10 01/29/17 Yony Garcia PA-C PCP - Assigned PCP 09/01/16 08/11/18 [address] [address] [address] Yony Garcia PA-C Assigned PCP 09/01/16 02/05/20 [address] [address] [address] documented as of this encounter
--- OUTSIDE RECORDS SUMMARY | 2022-05-20 09:01 | XMS_ITS | Encounter Summary ---
:1975 Author Organization [place] Address [address] [place] [address] Care Team Providers Name Role Phone Esmer Roland MD Primary Care Provider [phone] Reason for Visit Reason Comments Urinary Problem Urgent Care sx started this am and has b lood in the urine - may have had mild sx last week Encounter Details Date Type Department Care Team Description 12/16/2015 Office Visit [facility] Urgent Tobi West ulus of kidney (Primary Dx); Care ZENON Maddox Hematuria; [address] [address] [address] Bacteria in urine SONJA Juárez [address] [place], [place] [phone] [address] Social History Tobacco Use Types Packs/Day Years [...] Body Mass Index 36.32 07/20/2015 1:49 PM 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 [phone] [employer]. [address] [place] [address], [place] [address]. All rights reserved. This information is not [...] from 04/08/08 Op note on file in [facility] Expand All Collapse All FINAL PREOPERATIVE DIAGNOSIS: ??Left ureteral stone. POSTOPERATIVE DIAGNOSIS: ??Left ureteral stone. ??Ureteral stricture. PROCEDURE: ??Cystoscopy, balloon dilation of ureteral stricture, holmium laser lithotripsy of stone,retrograde pyelogram, left stent. GEOGRAPHIC AREA INTELLIGENCE OFFICER: Patient feels absolutely sure blood is not from GEOGRAPHIC AREA INTELLIGENCE OFFICER source. Denies any vaginal bleeding or spotting. [...] normal. No masses, organomegaly. No CVA tenderness GEOGRAPHIC AREA INTELLIGENCE OFFICER: Normal external female genitalia. No lesions. Normal [...] [facility] GFR Estimate 62 >60 [facility] mL/min/1.7 [facility] m2 GFR Estimate If 75 >60 [facility] Black mL/min/1.7 [facility] m2 Calcium 9.2 8.5 - 10.1 [facility] mg/dL [facility] Comment: Testing performed on Kimmie at [facility] lab. Specimen Anatomical Collection Method Collection Time Receive d Time (Source) Location / / Volume Laterality Blood specimen 12/16/2015 2:27 PM 016 2:33 (specimen) CDT PM CDT Tobi West PA-C LAB - BLOOD ORDERABLES Performing Organization Address City/[facility]/ZIP Code Phon e Number [facility] [address] [place] [address] CBC with platelets differential (12/16/2015 2:27 PM CDT) [facility] gist Method Time Signature WBC 10.2 4.0 - [facility] 11.0 CLINICS 10e9/L [facility] RBC Count 4.79 3.8 - 5.2 [facility] 10e12/L [facility] Hemoglobin 14.4 11.7 - [facility] 15.7 g/dL [facility] Hematocrit 43.5 35.0 - [place] 47.0 % [facility] MCV 91 78 - 100 [place] fl [facility] MCH 30.1 26.5 - [facility] 33.0 pg [facility] MCHC 33.1 31.5 - [place] 36.5 g/dL [facility] RDW 12.8 10.0 - [place] 15.0 % [facility] Platelet Count 305 150 - 450 [place] 10e9/L [facility] Diff Method Automated [place] Method [facility] % Neutrophils 64.9 % [place] [facility] % Lymphocytes 23.8 % [place] [facility] % Monocytes 7.2 % [place] [facility] % Eosinophils 3.5 % [facility] % Basophils 0.6 % [facility] Absolute 6.6 1.6 - 8.3 [place] Neutrophil 10e9/L [facility] Absolute 2.4 0.8 - 5.3 [place] Lymphocytes 10e9/L [facility] Absolute 0.7 0.0 - 1.3 [place] Monocytes 10e9/L [facility] Absolute 0.4 0.0 - 0.7 [place] Eosinophils 10e9/L [facility] Absolute 0.1 0.0 - 0.2 [place] Basophils 10e9/L [facility] Specimen Anatomical Collection Method Collection Time Receive d Time (Source) Location / / Volume Laterality Blood specimen 12/16/2015 2:27 PM 016 2:33 (specimen) CDT PM CDT Tobi [place] PA-C LAB - BLOOD ORDERABLES Performing Organization Address City/[facility]/ZIP Code Phon e Number [facility] [address] [place] [address] [phone] Urine Culture Aerobic Bacterial (12/16/2015 2:02 PM CDT) Component Value Ref Test Analysis Performed At Patholo gist Range Method Time Signature Specimen Midstream Urine [facility] Culture Micro <10,000 colonies/mL [...] MICRO GENERAL ORDERA BLES Performing Organization Address City/[facility]/ZIP Code Phon e Number INFECTIOUS DISEASES [address] [place] [address] DIAGNOSTIC LABORATORY, [facility] L[facility] [address] [place] [address] [phone] INFECTIOUS DISEASE [address] DIAGNOSTIC LABORATORY (ABNORMAL) Urine Microscopic (12/16/2015 2:02 PM CDT) Analysis Performed At Patho logist Time Signature WBC Urine O - 2 0 - 2 /HPF [facility] RBC Urine >100 (A) 0 - 2 /HPF [facility] Squamous Few FEW /LPF [place] Epithelial /LPF [facility] Urine Bacteria Urine Few (A) NEG /HPF [facility] Specimen Anatomical Collection Method Collection Time Receive d Time (Source) Location / / Volume Laterality 12/16/2015 2:02 PM 6 2:07 CDT PM CDT Tobi [place] PA-C LAB - URINE ORDERABLES Performing Organization Address City/[facility]/ZIP Code Phon e Number [facility] [address] [place] [address] [phone] (ABNORMAL) UA reflex to Microscopic and Culture (12/16/2015 2:02 PM CDT) Component Value Ref Test Analysis Performed At Patholo gist Range Method Time Signature Color Urine Brown [facility] Appearance Urine Cloudy [facility] Glucose Urine Negative NEG [place] mg/dL [facility] Bilirubin Urine Small NEG [place] This is an unconfirmed screening test result. A positive result may be false. CLINICS (A) [facility] Ketones Urine 15 (A) NEG [place] mg/dL [facility] Specific [place] 1.025 1.003 - [place] Urine 1.035 [facility] Blood Urine Large (A) NEG [facility] pH Urine 5.5 5.0 - [place] 7.0 pH [facility] Protein Albumin >=300 (A) NEG [place] Urine mg/dL [facility] Urobilinogen 0.2 0.2 - [place] Urine 1.0 CLINICS EU/dL [facility] Nitrite Urine Negative NEG [facility] Leukocyte Negative NEG [place] Esterase Urine [facility] Source Midstream Urine [facility] Specimen Anatomical Collection Method Collection Time Receive d Time (Source) Location / / Volume Laterality Urine specimen 12/16/2015 2:02 PM 016 2:07 (specimen) CDT PM CDT [place] PA-C LAB - URINE ORDERABLES Performing Organization Address City/State/ZIP Code Phon e Number [facility] [address] [place] [address] documented in this encounter Visit Diagnoses Diagnosis Calculus of kidney - Primary Hematuria Hematuria, unspecified Bacteria in urine Other nonspecific finding on examination of urine documented in this encounter Additional Health Concerns Assessment Noted Time PHQ-9 Depression Total Score: 4 09/02/2015 7:59 AM CDT documented as of this encounter Care Teams Sheet Folder Relationship Specialty Start Date End Date Esmer Roland MD PCP - General Family Practice 09/21/10 01/29/17 documented as of this encounter
--- OUTSIDE RECORDS SUMMARY | 2022-05-20 09:01 | XMS_ITS | Encounter Summary ---
:1975 Author Organization [place] Address [address] [place] [address] Care Team Providers Name Role Phone Esmer Roland MD Primary Care Provider [phone] Reason for Visit Reason Onset Date Comments Pain 01/26/2016 stent discomfort Encounter Details Date Type Department Care Team Description 01/26/2016 Telephone [facility] Otoniel Hernadez, Pain (stent discomfort) Urology Clinic Jessenia BANERJEE [address] [place] [address] SONJA SWIFT [phone] [address] (Wo rk) Social History Tobacco Use [...] documented as of this encounter Care Teams Slitter And Cutter Operator Relationship Specialty Start Date End Date Esmer Roland MD PCP - General Family Practice 09/21/10 01/29/17 documented as of this encounter
--- OUTSIDE RECORDS SUMMARY | 2022-05-20 09:01 | XMS_ITS | Encounter Summary ---
:1975 Author Organization [place] Address [address] [facility] [place] [address] Care Team Providers Name Role Phone Esmer Roland MD Primary Care Provider [phone] Reason for Visit Reason Onset Date Comments Results 02/27/2016 US results Encounter Details Date Type Department Care Team Description 02/27/2016 Telephone [facility] Yony Garcia Result s (US results) Clinic Sara Hoyos PA-C [address] [place] [address], [address] [place] [address] [address] [place] [address] [place], [place] [phone] (Wo rk) [address] [phone] Social History Tobacco Use Types Packs/Day Years [...] Depression Total Score: 3 05/19/2022 7:03 AM MOTOR GRADER OPERATOR documented as of this encounter Care Teams Hair Blender Relationship Specialty Start Date End Date Esmer Roland MD PCP - General Family Practice 09/21/10 01/29/17 documented as of this encounter
--- OUTSIDE RECORDS SUMMARY | 2022-05-20 09:01 | XMS_ITS | Encounter Summary ---
:1975 Author Organization [place] Address [address] [place] [address] Care Team Providers Name Role Phone Esmer Roland MD Primary Care Provider [phone] Encounter Details Date Type Department Care Team Description 01/19/2016 Telephone [facility] Kenneth Couch MD [place] [address] [address] [address] [place] [address] [phone] Social History Tobacco Use Types Packs/Day Years [...] she had 4 kidney stones removed! Andreea Rodriguez/Parachute Cushion Installer documented in this encounter Plan of Treatment Not on filedocumented as of this encounter Visit Diagnoses Not on filedocumented in this encounter Additional Health Concerns Assessment Noted Time PHQ-9 Depression Total Score: 4 09/02/2015 7:59 AM CDT documented as of this encounter Care Teams Vehicle Detailer Relationship Specialty Start Date End Date Esmer Roland MD PCP - General Family Practice 09/21/10 01/29/17 documented as of this encounter
--- OUTSIDE RECORDS SUMMARY | 2022-05-20 09:01 | XMS_ITS | Encounter Summary ---
:1975 Author Organization [place] Address [address] [facility] [place] [address] Care Team Providers Name Role Phone Esmer Roland MD Primary Care Provider [phone] Reason for Visit Reason Comments Hematuria Encounter Details Date Type Department Care Team Description 01/18/2016 Surgery [facility] Tito Marr COMB INED CYSTOSCOPY, [facility] BANERJEE LEFT URETEROSCOPY, [address] [place], [place] [address] [place] [phone] SONJA SWIFT [phone] LEFT URETER(S), INSERT [phone] (Wo rk) STENT, balloon dilation Surgery Details [...] [facility] [phone] YOU MAY GO BACK TO YOUR NORMAL [...] Miller MD - 01/18/2016 12:02 PM CDT [facility] History and Physical Hospitalist Date of [...] after OR Amadeo Miller MD, Hospitalist Pager: [phone] Disposition: Expected discharge this afternoon after procedure [...] MD MT: #[id number] Name: DARIANA OSMAN Account: [id number] : 1975 Consult Date: 01/18/2016 Document: [id number] cc: Esmer Marr Jr, MD documented in [...] bathroom, and call light is in place. personnel security assistant: connie hodge Ernestine Penny RN - 01/18/2016 [...] provider's statements to me. Lor Said 01/18/2016 [facility] EMERGENCY DEPARTMENT Saranya Hicks MD 01/18/16 0845 [...] patient was given Cipro 400 mg IV sedimentationist to the operating room. She was taken to the cystoscopy suite and placed in the supine position. After adequate general laryngeal mask anesthesia, the patient was placed in lithotomy position and her genitalia were prepped and draped ernique sterile fashion. A #22 Djiboutian Storz cystoscope with obturator was gently introduced [...] removed the cystoscope and passed a 6.9 Djiboutian ureteroscope into the ureter visualized 3 stones [...] Iremoved that stent and passed a 4.7 Djiboutian x 26 cm stent, which just reached. [...] MD MT: [id number] Name: DARIANA OSMAN Account: [id number] : 1975 Procedure Date: 01/18/2016 Document: [id number] cc: [facility] Tito Marr Jr, MD Brief Op Note - Tito Marr MD - 01/18/2016 3:48 PM CDT [facility] Brief Operative Note Pre-operative diagnosis: Left [...] extracted Pharmacy-Admission Medication History - Katheryn Caba [facility] - 01/18/2016 8:57 AM CDT Admission medication history interview status for this patient is complete. See [facility] admission navigator for allergy information, prior to admission medications and immunization status. Medication history interview source(s):Patient Medication history resources (including written lists, pill bottles, clinic record):None Primary pharmacy:[facility] Changes made to [employer] medication list: Added: --- Deleted: --- Changed: [...] Copath Report Patient Name: DARIANA OSMAN MR#: [id number] Specimen #: [id number] Collected: 01/18/2016 Received: 01/18/2016 Reported: 01/18/2016 16:34 [...] of sanchez to dark brown firm material roes suring between 0.3 cm and 0.5 cm in diameter each. ??The specimen i s sent for chemical analysis. ??No microscopic sections were made. CPT Codes: A: 11313-VI TESTING LAB LOCATION: [address] ??[id number] COLLECTION SITE: Client: [facility] Location: RHOR (R) Specimen Anatomical Collection Method Collection Time Receive d Time (Source) Location / / Volume Laterality 01/18/2016 3:28 PM 6 3:53 CDT PM CDT Tito Marr MD [facility] Performing Organization Address City/State/ZIP Code Phon e Number COPATH Stone analysis (01/18/2016 3:28 PM CDT) Component Value Ref Test Analysis Performed At [facility] Range Method Time Signature Stone SEE NOTE [place] Composition (Note) [place] Light brown calculus composed [...] composition determined by FTIR analysis. Performed by [facility], [address] [place] [id number] [email or web address], Eduard Rivas MD, Lab. Director Calculi Number 3 [facility] Calculi Size 5 to 9 [place] Unit: [facility] Calculi SEE NOTE [place] Description (Note) [facility] Specimen consists of three, medium, HOSPITAL light brown/dark brown, irregular calculi. Stone Mass 123 mg [facility] Specimen (Source) Anatomical Collection Method Collection Time Re ceived Time Location / / Volume Laterality Calculus specimen LEFT KIDNEY 01/18/2016 3:28 PM (specimen) STRUCTURE / CDT Unknown Tito Marr MD LAB - BODY FLUIDS ORDERABLES Performing Organization Address City/State/ZIP Code Phon e Number M [facility] [address] [phone] [facility] [address] [phone] Abd/pelvis CT no contrast - Stone Protocol [...] athologist Signature Sodium 137 133 - 144 [place] mmol/L [facility] Potassium 3.8 3.4 - 5.3 [place] mmol/L [facility] Chloride 104 94 - 109 [place] mmol/L [facility] Carbon Dioxide 25 20 - 32 [place] mmol/L [facility] Anion Gap 8 3 - 14 [place] mmol/L [facility] Glucose 103 (H) 70 - 99 [place] mg/dL [facility] Urea Nitrogen 10 7 - 30 [place] mg/dL [facility] Creatinine 0.83 0.52 - [place] 1.04 mg/dL [facility] GFR Estimate 77 >60 [place] mL/min/1.7 [facility] m2 [facility] Comment: Non GFR Calc GFR Estimate If Black >90 >60 mL/min/1.7m2 F [facility] GFR Calc HOSP ITAL Calcium 8.5 8.5 - 10.1 mg/dL [facility] Specimen Anatomical Collection Method Collection Time Receive d Time (Source) Location / / Volume Laterality Blood specimen 01/18/2016 7:00 AM 016 7:03 (specimen) CDT AM CDT Saranya Hicks MD LAB - BLOOD ORDERABLES Performing Organization Address City/State/ZIP Code Phon e Number M [facility] [address], [place] [address] [facility] [address] [phone] CBC + differential (01/18/2016 7:00 AM CDT) [facility] gist Method Time Signature WBC 6.5 4.0 - [place] 11.0 [facility] 10e9/[facility] RBC Count 4.67 3.8 - 5.2 [place] 10e12/L [facility] Hemoglobin 13.9 11.7 - [place] 15.7 g/dL [facility] Hematocrit 41.9 35.0 - [place] 47.0 % [facility] MCV 90 78 - 100 [facility] MCH 29.8 26.5 - [place] 33.0 pg [facility] MCHC 33.2 31.5 - [place] 36.5 g/dL [facility] RDW 12.6 10.0 - [place] 15.0 % [facility] Platelet Count 271 150 - [address]9/[facility] Diff Method Automated [facility] % Neutrophils 57.5 % [facility] % Lymphocytes 28.5 % [facility] % Monocytes 8.1 % [facility] % Eosinophils 4.0 % [facility] % Basophils 1.4 % [facility] % Immature 0.5 % [place] Granulocytes [facility] Nucleated RBCs 0 0 /100 [facility] Absolute 3.8 1.6 - 8.3 [place] Neutrophil 10e9/L [facility] Absolute 1.9 0.8 - 5.3 [place] Lymphocytes 10e9/L [facility] Absolute 0.5 0.0 - 1.3 [place] Monocytes 10e9/L [facility] Absolute 0.3 0.0 - 0.7 [place] Eosinophils 10e9/L [facility] Absolute 0.1 0.0 - 0.2 [place] Basophils 10e9/L [facility] Abs Immature 0.0 0 - 0.4 [place] Granulocytes [address] [place] [address] Absolute 0.0 [place] Nucleated RBC [facility] Specimen Anatomical Collection Method Collection Time Receive d Time (Source) Location / / Volume Laterality Blood specimen 01/18/2016 7:00 AM 016 7:03 (specimen) CDT AM CDT Saranya Hicks MD LAB - BLOOD ORDERABLES Performing Organization Address City/State/ZIP Code Phon e Number M [facility] [address], [place] [address] [facility] [address] [address] [facility] [phone] Urine Culture Aerobic Bacterial (01/18/2016 6:34 AM CDT) Patholo gist Method Time Signature Specimen [facility]stream [facility] Culture Micro No growth INFECTIOUS DISEASE DIAGNOSTIC LABORATORY Micro Report FINAL INFECTIOUS Status 01/19/2016 DISEASE DIAGNOSTIC LABORATORY Specimen Anatomical Collection Method Collection Time Receive d Time (Source) Location / / Volume Laterality 01/18/2016 6:34 AM 6 8:41 CDT AM CDT Tito Marr MD LAB - MICRO GENERAL ORDERABL ES Performing Organization Address City/[facility]/ZIP [facility] Phon e Number INFECTIOUS DISEASES [address] [place] [address] DIAGNOSTIC LABORATORY, [facility] [address] [phone], [place] [phone] INFECTIOUS DISEASE [address] DIAGNOSTIC LABORATORY HCG qualitative urine (01/18/2016 6:34 AM CDT) P athologist Signature HCG Qual Urine Negative NEG [facility] Specimen Anatomical Collection Method Collection Time Receive d Time (Source) Location / / Volume Laterality Urine specimen URINE SPECIMEN 01/18/2016 6:34 AM 01/17 6:37 (specimen) OBTAINED BY CLEAN CDT AM CDT CATCH PROCEDURE / Unknown Saranya Hicks MD LAB - URINE ORDERABLES Performing Organization Address City/State/ZIP Code Phon e Number M [facility] [address], [place] [address] [facility] [address] [phone] [facility] [phone] (ABNORMAL) UA with Microscopic (01/18/2016 6:34 AM CDT) [facility] Method Time Signature Color Urine Bloody [facility] Appearance Urine Turbid [facility] Glucose Urine Negative NEG mg/dL [facility] Bilirubin Urine Negative NEG [facility] Ketones Urine Negative NEG mg/dL [facility] Specific [place] 1.015 1.003 - [place] Urine 1.035 [facility] Blood Urine Large (A) NEG [facility] pH Urine 5.5 5.0 - 7.0 [facility] Protein Albumin 30 (A) NEG mg/dL [facility] Urobilinogen Normal 0.0 - 2.0 [place] mg/dL mg/dL [facility] Nitrite Urine Negative NEG [facility] Leukocyte Negative NEG [place] Esterase Urine [facility] Source Midstream [facility] WBC Urine 36 (H) 0 - 2 [facility] RBC Urine >182 (H) 0 - 2 [facility] Bacteria Urine Few (A) NEG /HPF [facility] Squamous 5 (H) 0 - 1 [place] Epithelial /HPF /HPF [facility] Mucous Urine Present (A) NEG /LPF [facility] Specimen Anatomical Collection Method Collection Time Receive d Time (Source) Location / / Volume Laterality Urine specimen URINE SPECIMEN 01/18/2016 6:34 AM 01/17 6:37 (specimen) OBTAINED BY CLEAN CDT AM CDT CATCH PROCEDURE / Unknown Saranya Hicks MD LAB - URINE ORDERABLES Performing Organization Address City/State/ZIP Code Phon e Number M [place] [address], [place] [address] [facility] [address] [place], [place] [address] [facility] [phone] documented in this encounter Visit Diagnoses Not [...] Pauline Leahy APRN CRNA) 400 mg, Intravenous, [employer] [facility] [place] 01/18/16 at 0859, For 1 dose, [...] documented as of this encounter Care Teams Photogrammetric Tech Relationship Specialty Start Date End Date Esmer Roland MD PCP - General Family Practice 09/21/10 01/29/17 documented as of this encounter
--- OUTSIDE RECORDS SUMMARY | 2022-05-20 09:01 | XMS_ITS | Encounter Summary ---
:1975 Author Organization [place] Address [address] [place] [address]. [place] [address] Care Team Providers Name Role Phone Esmer Roland MD Primary Care Provider [phone] Reason for Visit Reason Onset Date Comments Refill Request 04/09/2016 duloxetine 30 and 60 Encounter Details Date Type Department Care Team Description 04/09/2016 Telephone [facility] Esmer Roland Refill Request Clinic Sara Byrd MD (duloxetine 30 and 60) [address] [place] [address], [address] [place] [address] [address] [place] [address] [place], [place] [phone] (Wo rk) [id number] [phone] Social History Tobacco Use Types Packs/Day Years [...] # refills: 5 Last Office Visit with [facility], P or Health prescribing provider: 09/01/15 Duloxetine 60 Last Written Prescription Date: 09/01/15 Last Fill Quantity: 30, # refills: 5 Last Office Visit with [facility], [facility] or Health prescribing provider: 09/01/15 Kavita Marcus [facility] [phone] documented in this encounter Plan of Treatment Not on filedocumented as of this encounter Visit Diagnoses Diagnosis Major depressive disorder, recurrent epi sode, mild (H) - Primary Major depressive disorder, recurrent epi sode, mild documented in this encounter Additional Health Concerns Assessment Noted Time PHQ-9 Depression Total Score: 3 05/19/2022 7:03 AM LOAN APPROVER documented as of this encounter Care Teams Dyehouse Worker Relationship Specialty Start Date End Date Esmer Roland MD PCP - General Family Practice 09/21/10 01/29/17 documented as of this encounter
--- OUTSIDE RECORDS SUMMARY | 2022-05-20 09:01 | XMS_ITS | Encounter Summary ---
:1975 Author Organization [place] Address [address] [place] [address] Care Team Providers Name Role Phone Esmer Roland MD Primary Care Provider [phone] Reason for Visit Reason Comments Hematuria Encounter Details Date Type Department Care Team Description 01/18/2016 [facility] Miguel Ángel Hicks MD [facility] [address] [place] [id number] Calculus of kidney and ureter; [place] PreOP/PostOP Amadeo Miller MD [address] [place], [place] [id number] Angiomyolipoma [address] [place] [address] Social History Tobacco Use Types [...] [facility] [phone] YOU MAY GO BACK TO YOUR NORMAL [...] Miller MD - 01/18/2016 12:02 PM CDT [facility] History and Physical Hospitalist Date of [...] after OR Amadeo Miller MD, Hospitalist Pager: [phone] Disposition: Expected discharge this afternoon after procedure [...] #[id number] Name: DARIANA OSMAN MRN: [id number] Account: [id number] : 1975 Consult Date: 01/18/2016 Document: [id number] cc: Esmer Marr Jr, MD documented in [...] bathroom, and call light is in place. radio time salesperson: connie hodge Ernestine Penny RN - [...] provider's statements to me. Lor Said 01/18/2016 [facility] EMERGENCY DEPARTMENT Saranya Hicks MD 01/18/16 [...] ESTIMATED BLOOD LOSS: 5 mL. INDICATIONS: Dariana sOman is a 40-year-old female with a history [...] patient was given Cipro 400 mg IV contact manager to the operating room. She was taken to the cystoscopy suite and placed in the supine position. After adequate general laryngeal mask anesthesia, the patient was placed in lithotomy position and her genitalia were prepped and draped enrique sterile fashion. A #22 Jamaican Storz cystoscope with obturator was gently introduced [...] removed the cystoscope and passed a 6.9 Jamaican ureteroscope into the ureter visualized 3 stones [...] Iremoved that stent and passed a 4.7 Jamaican x 26 cm stent, which just reached. [...] MD MT: SANDRO#[id number] Name: DARIANA OSMAN Account: [id number] : 1975 Procedure Date: 01/18/2016 Document: [id number] cc: [facility] Tito Marr Jr, MD Brief Op Note - Tito Marr MD - 01/18/2016 3:48 PM CDT [facility] Brief Operative Note Pre-operative diagnosis: Left [...] status for this patient is complete. See [facility] admission navigator for allergy information, prior to admission medications and immunization status. Medication history interview source(s):Patient Medication history resources (including written lists, pill bottles, clinic record):None Primary pharmacy:[facility] Changes made to [facility] medication list: Added: --- Deleted: --- Changed: [...] Copath Report Patient Name: DARIANA OSMAN MR#: [id number] Specimen #: [id number] Collected: 01/18/2016 Received: 01/18/2016 Reported: 01/18/2016 16:34 [...] microscopic sections were made. CPT Codes: A: 33836-[place] TESTING LAB LOCATION: [address] ??[address] COLLECTION SITE: Client: [facility] Location: RHOR (R) Specimen Anatomical Collection Method Collection Time Receive d Time (Source) Location / / Volume Laterality 01/18/2016 3:28 PM 6 3:53 CDT PM CDT Tito Marr MD LAB - [facility] Performing Organization Address City/State/ZIP Code Phon e Number [place] Stone analysis (01/18/2016 3:28 PM CDT) Component Value Ref Test Analysis Performed At [facility] Method Time Signature Stone SEE NOTE [place] Composition (Note) [facility] Light brown calculus composed primarily of: HOSPITAL [...] composition determined by FTIR analysis. Performed by [employer], [address] [place] [id number] [email or web address], Eduard Rivas MD, Lab. Director Calculi Number 3 [facility] Calculi Size 5 to 9 [place] Unit: [facility] Calculi SEE NOTE [place] Description (Note) [facility] Specimen consists of three, medium, HOSPITAL light brown/dark brown, irregular calculi. Stone Mass 123 mg [facility] Specimen (Source) Anatomical Collection Method Collection Time Re ceived Time Location / / Volume Laterality Calculus specimen LEFT KIDNEY 01/18/2016 3:28 PM (specimen) STRUCTURE / CDT Unknown Tito Marr MD LAB - BODY FLUIDS ORDERABLES Performing Organization Address City/State/ZIP Code Phon e Number [facility] [address] [address] [facility] [address] [place], [place] [address] [place] [address] Abd/pelvis CT no contrast - Stone Protocol [...] athologist Signature Sodium 137 133 - 144 [place] mmol/L [facility] Potassium 3.8 3.4 - 5.3 [place] mmol/L [facility] Chloride 104 94 - 109 [place] mmol/L [facility] Carbon Dioxide 25 20 - 32 [place] mmol/L [facility] Anion Gap 8 3 - 14 [place] mmol/L [facility] Glucose 103 (H) 70 - 99 [place] mg/dL [facility] Urea Nitrogen 10 7 - 30 [place] mg/dL [facility] Creatinine 0.83 0.52 - [place] 1.04 mg/dL [facility] GFR Estimate 77 >60 [place] mL/min/1.[address] Comment: Non GFR Calc GFR Estimate If Black >90 >60 mL/min/1.7m2 F [facility] GFR Calc HOSP ITAL Calcium 8.5 8.5 - 10.1 mg/dL [facility] Specimen Anatomical Collection Method Collection Time Receive d Time (Source) Location / / Volume Laterality Blood specimen 01/18/2016 7:00 AM 016 7:03 (specimen) CDT AM CDT Saranya Hicks MD LAB - BLOOD ORDERABLES Performing Organization Address City/State/ZIP Code Phon e Number [place] [address] [address] [place], [place] [address] [facility] [address] [place], [place] [address] [phone] CBC + differential (01/18/2016 7:00 AM CDT) [facility] gist Method Time Signature WBC 6.5 4.0 - [place] 11.[address] RBC Count 4.67 3.8 - 5.2 [place] 10e12/L [facility] Hemoglobin 13.9 11.7 - [place] 15.7 g/dL [facility] Hematocrit 41.9 35.0 - [place] 47.0 % [facility] MCV 90 78 - 100 [facility] MCH 29.8 26.5 - [place] 33.0 pg [facility] MCHC 33.2 31.5 - [place] 36.5 g/dL [facility] RDW 12.6 10.0 - [place] 15.0 % [facility] Platelet Count 271 150 - [address] Diff Method Automated [facility] % Neutrophils 57.5 % [facility] % Lymphocytes 28.5 % [facility] % Monocytes 8.1 % [facility] % Eosinophils 4.0 % [facility] % Basophils 1.4 % [facility] % Immature 0.5 % [place] Granulocytes [facility] Nucleated RBCs 0 0 /100 [facility] Absolute 3.8 1.6 - 8.[address] [place] Neut[address]il [address] [place] [address] Absolute 1.9 0.8 - 5.3 [place] Lymphocytes [address] [place] [address] Absolute 0.5 0.0 - 1.3 [place] Monocytes [address] [place] [address] Absolute 0.3 0.0 - 0.7 [place] Eosinophils [address] [place] [address] Absolute 0.1 0.0 - 0.2 [place] Basophils [address] [place] [address] Abs Immature 0.0 0 - 0.4 [place] Granulocytes [address] [place] [address] Absolute 0.0 [place] Nucleated RBC [facility] Specimen Anatomical Collection Method Collection Time Receive d Time (Source) Location / / Volume Laterality Blood specimen 01/18/2016 7:00 AM 016 7:03 (specimen) CDT AM CDT Saranya Hicks MD LAB - BLOOD ORDERABLES Performing Organization Address City/State/ZIP Code Phon e Number M [facility] [address] [place], [place] [address] [facility] [address] [place], [place] [address] [phone] Urine Culture Aerobic Bacterial (01/18/2016 6:34 AM CDT) [facility] Method Time Signature Specimen [facility] Culture Micro No growth INFECTIOUS DISEASE DIAGNOSTIC LABORATORY Micro Report FINAL INFECTIOUS Status 01/19/2016 DISEASE DIAGNOSTIC LABORATORY Specimen Anatomical Collection Method Collection Time Receive d Time (Source) Location / / Volume Laterality 01/18/2016 6:34 AM 6 8:41 CDT AM CDT Tito Marr MD LAB - MICRO GENERAL ORDERABL ES Performing Organization Address City/[facility] Phon e Number INFECTIOUS DISEASES [address] [place] [address] DIAGNOSTIC LABORATORY, [facility] [address] [place], [place] [address], [facility] [phone] INFECTIOUS DISEASE [address] [place] [address], [facility] DIAGNOSTIC LABORATORY HCG qualitative urine (01/18/2016 6:34 AM CDT) athologist Signature HCG Qual Urine Negative NEG [facility] Specimen Anatomical Collection Method Collection Time Receive d Time (Source) Location / / Volume Laterality Urine specimen URINE SPECIMEN 01/18/2016 6:34 AM 01/17 6:37 (specimen) OBTAINED BY CLEAN CDT AM CDT CATCH PROCEDURE / Unknown Saranya Hicks MD LAB - URINE ORDERABLES Performing Organization Address City/[facility]/ZIP [facility] Phon e Number [facility] [address] [place], [place] [address] [facility] [address] [place], [place] [address] [phone] (ABNORMAL) UA with Microscopic (01/18/2016 6:34 AM CDT) [facility] Method Time Signature Color Urine Bloody [facility] Appearance Urine Turbid [facility] Glucose Urine Negative NEG mg/dL [facility] Bilirubin Urine Negative NEG [facility] Ketones Urine Negative NEG mg/dL [facility] Specific [place] 1.015 1.003 - [place] Urine 1.035 [facility] Blood Urine Large (A) NEG [facility] pH Urine 5.5 5.0 - 7.0 [place] pH [facility] Protein Albumin 30 (A) NEG mg/dL [facility] Urobilinogen Normal 0.0 - 2.0 [place] mg/dL mg/dL [facility] Nitrite Urine Negative NEG [facility] Leukocyte Negative NEG [place] Esterase Urine [facility] Source [facility] WBC Urine 36 (H) 0 - 2 [facility] RBC Urine >182 (H) 0 - 2 [facility] Bacteria Urine Few (A) NEG /HPF [facility] Squamous 5 (H) 0 - 1 [place] Epithelial /HPF /[facility] Mucous Urine Present (A) NEG /LPF [facility] Specimen Anatomical Collection Method Collection Time Receive d Time (Source) Location / / Volume Laterality Urine specimen URINE SPECIMEN 01/18/2016 6:34 AM 01/17 6:37 (specimen) OBTAINED BY CLEAN CDT AM CDT CATCH PROCEDURE / Unknown Saranya Zoey Hicks MD LAB - URINE ORDERABLES Performing Organization Address City/State/ZIP Code Phon e Number [place] [address] [address] [address] [phone] documented in this encounter Visit Diagnoses Diagnosis [...] Pauline Leahy APRN CRNA) 400 mg, Intravenous, COMPLIANCE LEAD TO [facility] [place] 01/18/16 at 0859, For 1 [...] documented as of this encounter Care Teams Cyber Instructor Relationship Specialty Start Date End Date Esmer Roland MD PCP - General Family Practice 09/21/10 01/29/17 documented as of this encounter
--- OUTSIDE RECORDS SUMMARY | 2022-05-20 09:01 | XMS_ITS | Encounter Summary ---
:1975 Author Organization [place] Address [address] [facility] [place] [address] Care Team Providers Name Role Phone Esmer Roland MD Primary Care Provider [phone] Reason for Visit Reason Onset Date Comments Formulary Issue 09/29/2015 PA REQUIRED FOR DOSI NG ON CYMBALTA 30MG Encounter Details Date Type Department Care Team Description 09/29/2015 Telephone [facility] Esmer Roland Formula ry Issue (PA Clinic Sara Byrd MD REQUIRED FOR DOSING ON [facility], [address] [place] [address] CYMBALTA 30MG) [address] [place] [address] [place], [place] [phone] (Wo rk) [address] [phone] Social History Tobacco Use Types Packs/Day Years [...] 10/09/2015 2:40 PM CDT Fax received from [facility], Duloxetine HCL approved, coverage begins 10/02/15 and [...] DAILY ON DARIANA'S CYMBALTA. HER INSURANCE IS [facility] - ID # [id number] - PHONE # IS THANKS! KRISTINE BERMUDEZ [facility] documented in this encounter Plan of Treatment Not on filedocumented as of this encounter Visit Diagnoses Not on filedocumented in this encounter Additional Health Concerns Assessment Noted Time PHQ-9 Depression Total Score: 4 09/02/2015 7:59 AM CDT documented as of this encounter Care Teams Director Weights And Measures Relationship Specialty Start Date End Date Esmer Roland MD PCP - General Family Practice 09/21/10 01/29/17 documented as of this encounter
--- OUTSIDE RECORDS SUMMARY | 2022-05-20 09:01 | XMS_ITS | Encounter Summary ---
:1975 Author Organization [place] Address [facility] [place] [place] [address] Care Team Providers Name Role Phone Esmer Roland MD Primary Care Provider Encounter Details Date Type Department Care Team Description 01/18/2016 Anesthesia Event [facility] Patricio Mccauley MD [facility] ANESTHESIA [address] [place], [place] [id number] PeriOp Services Delmer Berrios, DO [facility] ANESTHESIA [address] [place], [place] [address] [address] [place] [address] Anesthesia Record Procedure Summary Procedure [...] Pauline Leahy, OWEN ferrer, laryngeal mask airway; CHAPERONE Jose negron APRN Spontaneous ventilation, CHAPERONE Follows commands, Transported with oxygen, Purposeful movement [...] benefits and alternatives discussed with: Patient or shared services representative.. . documented in this encounter Miscellaneous [...] infusion 400 mg STAT, 400 mg, Intravenous, REVENUE AGENT TO O.R., Starting on [place] 01/18/16 at [...] documented as of this encounter Care Teams Patcher Bowling Ball Relationship Specialty Start Date End Date Esmer Roland MD PCP - General Family Practice 09/21/10 01/29/17 documented as of this encounter
--- OUTSIDE RECORDS SUMMARY | 2022-05-20 09:01 | XMS_ITS | Encounter Summary ---
:1975 Author Organization [place] Address [address] [place] [address]. [place] [address] Care Team Providers Name Role Phone Esmer Roland MD Primary Care Provider [phone] Encounter Details Date Type Department Care Team Description 09/26/2015 Hospital Pathology [facility] Hospital Results [place] [address] [place] [address] (Wo rk) Social History Tobacco Use Types [...] Component Value Ref Test Analysis Performed At [facility] Method Time Signature Copath Report Patient Name: DARIANA VALDEZ MR#: [id number] Specimen #: [id number] Collected: 09/26/2015 Received: 09/26/2015 Reported: 09/27/2015 14:08 [...] cyst s. ??A complete lumen is identified. ??Plant Utilities Engineer sections of e ach tube are submitted in 2 blocks. (Dictated by: Сергей Gonzalez 09/26/2015 01:32 PM) MICROSCOPIC: Microscopic evaluation performed. CPT Codes: A: 68403-XL2 TESTING LAB LOCATION: [place] [address] ??[address] COLLECTION SITE: Client: [facility] Location: R548 (F) Specimen Anatomical Collection Method Collection Time Receive d Time (Source) Location / / Volume Laterality 09/26/2015 8:30 AM 6 1:13 CDT PM CDT Jeimy Christensen DO LAB - [facility] Performing Organization Address City/State/ZIP Code Phon e Number [place] documented in this encounter Visit Diagnoses Not on filedocumented in this encounter Additional Health Concerns Assessment Noted Time PHQ-9 Depression Total Score: 4 09/02/2015 7:59 AM CDT documented as of this encounter Care Teams Hotel Assistant Manager Relationship Specialty Start Date End Date Esmer Roland MD PCP - General Family Practice 09/21/10 01/29/17 documented as of this encounter
--- OUTSIDE RECORDS SUMMARY | 2022-05-20 09:01 | XMS_ITS | Encounter Summary ---
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 Incision intact, no erthema, drainage. DIALYSIS TECH PELVIC: NEGATIVE, normal external genitalia, normal vaginal [...] [place] documented in this encounter Nursing Notes Anais [...] documented as of this encounter Care Teams Feed House Supervisor Relationship Specialty Start Date End Date Esmer Roland MD PCP - General Family Practice 09/21/10 01/29/17 documented as of this encounter
--- OUTSIDE RECORDS SUMMARY | 2022-05-20 09:01 | XMS_ITS | Encounter Summary ---
:1975 Author Organization [place] Address [address] [place] [address] Care Team Providers Name Role Phone Esmer Roland MD Primary Care Provider [phone] Reason for Visit Reason Comments ER F/U Urgent care follow up 12/16/15 Encounter Details Date Type Department Care Team Description 12/18/2015 Office Visit [facility] Kenneth Couch Dysuria ( Primary Dx); Clinic Sara Booth MD Chronic migraine without aura without st atus migrainosus, not intractable [place] [address] [facility], [address] [place] [address] [place], [place] [phone] (Wo rk) [address] [phone] Social History Tobacco Use Types Packs/Day Years [...] the following health issues: ED/UC Followup: Facility: [facility] Date of visit: 12/16/15 [...] (ABNORMAL) Urine Microscopic (12/18/2015 2:49 PM CDT) [facility] Method Time Signature WBC Urine 10-25 (A) 0 - 2 [facility] RBC Urine 2-5 (A) 0 - 2 [facility] Hyaline Casts 2-5 (A) 0 - 2 [facility]F [facility] [place] Squamous Few FEW /LPF [place] Epithelial CLINICS /LPF Urine [place] Bacteria Urine Moderate (A) NEG /HPF [facility] Mucous Urine Present (A) NEG /LPF [facility] Specimen Anatomical Collection Method Collection Time Receive d Time (Source) Location / / Volume Laterality 12/18/2015 2:49 PM 6 2:50 CDT PM CDT Kenneth Couch MD LAB - URINE ORDERABLES Performing Organization Address [facility]/ZIP Code Phon e Number [facility] [place] [address] (ABNORMAL) *UA reflex to Microscopic (12/18/2015 2:49 PM CDT) [facility] gist Method Time Signature Color Urine Yellow [facility] Appearance Urine Clear [facility] Glucose Urine Negative NEG mg/dL [facility] Bilirubin Urine Negative NEG [facility] Ketones Urine Negative NEG mg/dL [facility] Specific [place] 1.025 1.003 - [place] Urine 1.035 [facility] Blood Urine Negative NEG [facility] pH Urine 5.0 5.0 - 7.0 [place] pH [facility] Protein Albumin Negative NEG mg/dL [place] Urine [facility] Urobilinogen 0.2 0.2 - 1.0 [place] Urine EU/dL [facility] Nitrite Urine Negative NEG [facility] Leukocyte Trace (A) NEG [place] Esterase Urine [facility] Source Midstream [place] Urine [facility] Specimen Anatomical Collection Method Collection Time Receive d Time (Source) Location / / Volume Laterality Urine specimen 12/18/2015 2:49 PM 016 2:50 (specimen) CDT PM CDT Kenneht Couch MD LAB - URINE ORDERABLES Performing Organization Address City/[facility]/ZIP Code Phon e Number [facility] [place] [address] documented in this encounter Visit Diagnoses Diagnosis Dysuria - Primary Chronic migraine without aura without st atus migrainosus, not intractable Chronic migraine without aura, without m ention of intractable migraine without mention of status migrainosus documented in this encounter Additional Health Concerns Assessment Noted Time PHQ-9 Depression Total Score: 4 09/02/2015 7:59 AM CDT documented as of this encounter Care Teams Stain Sprayer Relationship Specialty Start Date End Date Esmer Roland MD PCP - General Family Practice 09/21/10 01/29/17 documented as of this encounter
--- OUTSIDE RECORDS SUMMARY | 2022-05-20 09:01 | XMS_ITS | Encounter Summary ---
:1975 Author Organization [place] Address [address] [facility] [place] [address] Care Team Providers Name Role Phone Esmer Roland MD Primary Care Provider [phone] Reason for Visit Reason Onset Date Comments Nurse Advice Line 12/18/2015 F/u from visit (H ematuria) Encounter Details Date Type Department Care Team Description 12/18/2015 Telephone [facility] Esmer Roland A dvice Line (F/u Clinic [place] MD Roc[place]le from visit [facility], [address] [place] [address] [place] (Hematuria)) [address] [place] [address] [place], [place] [phone] (Wo rk) [address] [phone] Social History Tobacco Use Types Packs/Day Years [...] documented as of this encounter Care Teams Chain Repairer Relationship Specialty Start Date End Date Esmer Roland MD PCP - General Family Practice 09/21/10 01/29/17 documented as of this encounter
--- OUTSIDE RECORDS SUMMARY | 2022-05-20 09:01 | XMS_ITS | Encounter Summary ---
:1975 Author Organization [place] Address [address] [place] [address] Care Team Providers Name Role Phone Esmer Roland MD Primary Care Provider [phone] Reason for Visit Reason Comments Musculoskeletal Problem knee and foot pain Encounter Details Date Type Department Care Team Description 02/27/2016 Office Visit [facility] Yony Garcia eg swelling Clinic [place] ZENON [place] (Primary Dx) [address] [address] [address] [facility], [address] [place] [address] [place], [place] [phone] (Wo rk) [address] [phone] Social History Tobacco Use Types Packs/Day Years [...] overuse: YES- walked for 5 days in [facility] Aggravating factors include: walking, overuse and possible high sodium intake ?? Therapies tried and outcome: ice and elevating Dariana is here to discuss swelling in her left leg and foot. This started over the weekend and has not gotten any better so she is here for eval. She had just returned from a work trip in [place] where she was walking a lot, also [...] 225 lb (102.059 kg) Labs reviewed in [facility] Problem list, Medication list, Allergies, and Medical/Social/Surgical histories reviewed in [facility] andupdated as appropriate. ROS: C: NEGATIVE [...] Venous Duplex Left; Future Yony Garcia PA-C [facility] documented in this encounter Nursing Notes Kalee [...] Depression Total Score: 3 05/19/2022 7:03 AM [employer] PRODUCER documented as of this encounter Care Teams Staffing Associate Relationship Specialty Start Date End Date Esmer Roland MD PCP - General Family Practice 09/21/10 01/29/17 documented as of this encounter
--- OUTSIDE RECORDS SUMMARY | 2022-05-20 09:01 | XMS_ITS | Encounter Summary ---
:1975 Author Organization [place] Address [address] [facility] [place] [place] [address] Care Team Providers Name Role Phone Esmer Roland MD Primary Care Provider [phone] Reason for Visit Reason Comments Cystoscopy Stent Removal Encounter Details Date Type Department Care Team Description 02/02/2016 Office Visit [facility] Otoniel Hernadez, [place] ium urolithiasis (Primary Dx); Urology Clinic Jamison BANERJEE Kidney stone [address] [place] [address] [place] [address] S[place]JA [place] [phone] [address] Social History Tobacco Use Types Packs/Day [...] this encounter Results (ABNORMAL) UA without Microscopic [[id number]] (02/02/2016 1:32 PM CDT) Component Value Ref Test Analysis Performed At [facility] Range Method Time Signature Color Urine Red [facility] Appearance Urine Turbid [facility] Glucose Urine Negative NEG [facility] mg/dL [facility] Bilirubin Urine Large NEG [facility] This is an unconfirmed screening test result. A positive result may be false. 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
--- OUTSIDE RECORDS SUMMARY | 2022-05-20 09:01 | XMS_ITS | Encounter Summary ---
:1975 Author Organization [place] Address [address] [facility] [place] [address] Care Team Providers Name Role Phone Esmer Roland MD Primary Care Provider [phone] Reason for Visit (Routine) - Closed Specialty Diagnoses / Procedures Referred By Contact Refer red To Contact Radiology / Diagnoses [facility] ORDER, sb SHANIKA - [phone] READ AND CALL: YONY SANDOVAL - [phone] ANGELES JOHANSEN Ultrasound cc Radiology. Procedures US LWR EXT VENOUS DUPLEX LEFT [address] [employer] [address] [place] [address] Phone: Fax: Referral ID Status Reason Start Date Expiration Date Visits Requ ested Visits Authorized [id number] Closed 02/27/2016 02/26/2017 1 1 Encounter Details Date Type Department Care Team Description 02/27/2016 [facility] [place] [facility] ZENON Hoyos [facility] [address] [facility] [address] [place], [place] [address] Social History Tobacco Use Types Packs/Day [...] Depression Total Score: 3 05/19/2022 7:03 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
--- OUTSIDE RECORDS SUMMARY | 2022-05-20 09:01 | XMS_ITS | Encounter Summary ---
:1975 Author Organization [place] Address [facility] [place] [address] Care Team Providers Name Role Phone Esmer Roland MD Primary Care Provider [phone] Reason for Visit Reason Onset Date Comments Panel Management 01/08/2016 EUGENE-7 and PHQ9 Encounter Details Date Type Department Care Team Description 01/08/2016 Telephone [facility]mer [facility] Sara Byrd MD (EUGENE-7 and PHQ9) [address] [place] [address], [address] [place] [address] [address] [place] [address] [place], [place] [phone] (Wo rk) [address] [phone] Social History Tobacco Use Types Packs/Day Years [...] CDT 3rd attempt, letter sent. Fady Rolle Spout Liner Helper Telephone Encounter - Missy Rolle - 01/30/2016 11:46 AM CDT Second attempt, sent Lendiohart message with questionnaires. Fady Rolle Spout Liner Helper Telephone Encounter - Polly Duron - 01/30/2016 [...] to do PHQ9. Type of outreach: Sent [facility] Gardner[facility] message. Questions for provider review: None Melissa Leal CMA Chart routed to Care Team . documented in this encounter Plan of Treatment Not on filedocumented as of this encounter Visit Diagnoses Not on filedocumented in this encounter Additional Health Concerns Assessment Noted Time PHQ-9 Depression Total Score: 4 09/02/2015 7:59 AM CDT documented as of this encounter Care Teams Integration Analyst Relationship Specialty Start Date End Date Esmer Roland MD PCP - General Family Practice 09/21/10 01/29/17 documented as of this encounter
--- OUTSIDE RECORDS SUMMARY | 2022-05-20 09:02 | XMS_ITS | Encounter Summary ---
:1975 Author Organization [place] Address [address] [place] [address] Care Team Providers Name Role Phone Esmer Roland MD Primary Care Provider [phone] Reason for Visit Reason Comments Recheck Medication LEXAPRO Depression Encounter Details Date Type Department Care Team Description 05/27/2014 Office Visit [facility] Esmer Roland ANXIETY STATE NOS (Primary Dx); Clinic Sara Byrd MD MDD (major depressive disorder) [place] [address] [facility], [address] [place] [address] [place], [place] [phone] (Wo rk) [address] [phone] Social History Tobacco Use Types Packs/Day Years [...] Comments Blood Pressure 112/70 05/27/2014 9:42 AM WOODWORKING SHOP HAND Pulse 65 05/27/2014 9:42 AM WOODWORKING SHOP HAND Temperature 37.2 ??C (98.9 ??F) 05/27/2014 9:42 AM WOODWORKING SHOP HAND Respiratory Rate 16 05/27/2014 9:42 AM WOODWORKING SHOP HAND Oxygen Saturation 97% 05/27/2014 9:42 AM WOODWORKING SHOP HAND Inhaled Oxygen Concentration - - Weight 99.8 kg (220 lb 1.6 oz) 05/27/2014 9:42 AM WOODWORKING SHOP HAND Height 169.5 cm (5' 6.75) 05/27/2014 9:42 AM WOODWORKING SHOP HAND Body Mass Index 34.73 05/27/2014 9:42 AM WOODWORKING SHOP HAND documented in this encounter Progress Notes Esmer [...] Mar. paps are now improving and seeing INSTITUTE SCIENTIST regularly, very heavy periods, would like to have hysterectomy, but D@C is likely to be planned in the near future Depression and Anxiety Follow-Up ?? Status since last visit: Worsened -DEPRESSION , due to all the above, does not like to go out anymore, no hobbies, not calling friends, feels more irritable, happy at home with her kids ?? 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 Other associated symptoms:None ?? Complicating factors: ?? Significant life event: Yes- Complications after surgery. ?? Current substance abuse: None ?? lexapro 40mg, hx of prozac in the past ?? Has gained a lot of weight in the past few yrs PHQ-9 SCORE ([facility]) 04/02/2013 10/01/2013 05/09/2014 Total Score 8 6 8 Total Score - - - EUGENE-7 SCORE 04/06/2013 05/09/2014 Total Score 5 2 PHQ-9 Nigerian PHQ-9 Any Language GAD7 ?? Amount of exercise or physical activity: None ?? Problems taking medications regularly: No ?? Medication side effects: none ?? Diet: regular (no restrictions) PROBLEMS TO ADD ON... Problem list and histories reviewed & adjusted, as indicated. Additional history: as documented Labs reviewed in [facility] Problem list, Medication list, Allergies, and Medical/Social/Surgical histories reviewed in [facility] andupdated as appropriate. ROS: Constitutional, HEENT, cardiovascular, [...] Follow up 1 month Esmer Roland [facility] Physical Exam WORKING SHOP HAND documented in this encounter Nursing Notes Melissa Leal, SORTING MACHINE OPERATOR - 05/27/2014 9:46 AM CST Chief Complaint [...] completed using cuff size large RIGHT arm. Meilssa Leal CMA WORKING SHOP HAND documented in this encounter Plan of Treatment Not on filedocumented as of this encounter Visit Diagnoses Diagnosis ANXIETY STATE NOS - Primary Anxiety state, unspecified MDD (major depressive disorder) Major depressive disorder, single episod e, unspecified documented in this encounter Care Teams Maintenance Department Technician Relationship Specialty Start Date End Date Esmer Roland MD PCP - General Family Practice 09/21/10 01/29/17 documented as of this encounter
--- OUTSIDE RECORDS SUMMARY | 2022-05-20 09:02 | XMS_ITS | Encounter Summary ---
:1975 Author Organization [place] Address [address] [place] [address]. [place] [address] Care Team Providers Name Role Phone Esmer Roland MD Primary Care Provider [phone] Reason for Visit Reason Comments Consult heavy periods and long--cons ult for ablation or D&C procedure Encounter Details Date Type Department Care Team Description 02/02/2015 Office Visit [facility] Jeimy Christensen or frequent [facility] DO Verito menstruation (Primary [place] [address] Dx) [address] [place] [address] [phone] Social History Tobacco Use Types Packs/Day Years [...] biopsy Dr. Jeimy Christensen, Obstetrics and Gynecology [facility] and [place] documented in this encounter Progress Notes Jeimy [...] Dr. Jeimy Christensen, DO Obstetrics and Gynecology [facility] documented in this encounter Nursing Notes Solange [...] Pelvic Complete with Transvaginal (07/20/2015 2:26 PM UTILITY SALES AND SERVICE MANAGER) Anatomical Region Laterality Modality Abdomen/Pelvis Ultrasound Specimen (Source) Anatomical Location Collection Method / Collectio n Time Received Time / Laterality Volume Impressions 07/21/2015 6:20 AM UTILITY SALES AND SERVICE MANAGER #: [id number] Study Notes ? Lizzette Bell on 07/20/2015 2:29 PM [facility] Obstetrics & Gynecology [address] [place] [address]. [address] [place] [address] ULTRASOUND - PELVIC AIRLINE MANAGERIAL SUPERVISOR Referring MD: Jeimy Christensen Primary Clinic: [facility] CLINICAL INFORMATION Indications for ultrasound: Bleeding/Menses [...] indicated Lois BANERJEE Narrative 07/21/2015 6:20 AM UTILITY SALES AND SERVICE MANAGER Order Jeimy Christensen DO IMG US ORDERABLES documented in this encounter Visit Diagnoses Diagnosis Excessive or frequent menstruation - Mel rangel documented in this encounter Care Teams Chainsaw Mechanic Relationship Specialty Start Date End Date Esmer Roland MD PCP - General Family Practice 09/21/10 01/29/17 documented as of this encounter
--- OUTSIDE RECORDS SUMMARY | 2022-05-20 09:02 | XMS_ITS | Encounter Summary ---
:1975 Author Organization [place] Address [facility] [place] [address] Care Team Providers Name Role Phone Esmer Roland MD Primary Care Provider [phone] Encounter Details Date Type Department Care Team Description 03/13/2015 E-Visit [facility] Yony Garcia Dysuria (Primary Dx) Sara Hoyos PA-C [address] [place] [address], [address] [place] [address] AVE [address] [place] [address] [place], [place] [phone] (Wo rk) [address] [phone] Social History Tobacco Use Types Packs/Day Years [...] Primary documented in this encounter Care Teams Prep Cook Relationship Specialty Start Date End Date Esmer Roland MD PCP - General Family Practice 09/21/10 01/29/17 documented as of this encounter
--- OUTSIDE RECORDS SUMMARY | 2022-05-20 09:02 | XMS_ITS | Encounter Summary ---
:1975 Author Organization [place] Address [facility] [address] Care Team Providers Name Role Phone Esmer Roland MD Primary Care Provider [phone] Encounter Details Date Type Department Care Team Description 04/04/2015 E-Visit [facility] Yony Garcia (Primary Clinic [place] Hoy[place] PA-C Dx) [address] [facility], [address] [place] [address] AVE [address] [place] [address] [place], [place] [phone] (Wo rk) [address] [phone] Social History Tobacco Use Types Packs/Day Years [...] limb documented in this encounter Care Teams Field Service Poultry Technician Relationship Specialty Start Date End Date Esmer Roland MD PCP - General Family Practice 09/21/10 01/29/17 documented as of this encounter
--- OUTSIDE RECORDS SUMMARY | 2022-05-20 09:02 | XMS_ITS | Encounter Summary ---
:1975 Author Organization [place] Address [address] [place] [address]. [place] [address] Care Team Providers Name Role Phone Esmer Roland MD Primary Care Provider [phone] Reason for Visit Reason Onset Date Comments Refill Request 05/09/2014 LEXAPRO 20MG and Amb ien Encounter Details Date Type Department Care Team Description 05/09/2014 Refill [facility] Esmer Roland Refill Request (LEXAPRO Clinic [place] MD Rochelle 20MG and Ambien ) [address] [facility], [address] [place] [address] [address] [place] [address] [place], [place] [phone] (Wo rk) [address] [phone] Social History Tobacco Use Types Packs/Day Years [...] RX fax[facility] to [facility] Fish Hatchery Worker [facility] ER SERVICE TECHNICIAN Telephone Encounter - Esmer Cavanaugh RN - 05/09/2014 1:11 PM CST Refilled Lexapro PSO for quanity of #60 the pt also requested a refill on her Ambien 5mg. Last Seen: 10/01/[address] Roland Last PHQ-9 score on record= PHQ-9 SCORE ([facility]) 05/09/2014 Total Score 8 Total Score - [...] out of the Lexapro Esmer Cavanaugh RN. ER SERVICE TECHNICIAN Telephone Encounter - Lennie Haddad - 05/09/2014 1:00 PM CST PT called requesting refill of Lexapro 20MG to [place] [facility]. Please call her when done [phone]. ER SERVICE TECHNICIAN documented in this encounter Plan of Treatment Not on filedocumented as of this encounter Visit Diagnoses Diagnosis ANXIETY STATE NOS Anxiety state, unspecified Adjustment disorder with anxiety Insomnia Insomnia, unspecified documented in this encounter Care Teams Life Science Taxonomist Relationship Specialty Start Date End Date Esmer Roland MD PCP - General Family Practice 09/21/10 01/29/17 documented as of this encounter
--- OUTSIDE RECORDS SUMMARY | 2022-05-20 09:02 | XMS_ITS | Encounter Summary ---
:1975 Author Organization [place] Address [address] [facility] [place] [address] Care Team Providers Name Role Phone Esmer Roland MD Primary Care Provider [phone] Reason for Visit Reason Comments Pre-Op Exam Encounter Details Date Type Department Care Team Description 09/01/2015 Office Visit [facility] Esmer Roland Preop g eneral physical exam (Primary Dx); Clinic Sara Byrd MD Abnormal uterine bleeding; [place] [address] [address] Major depressive disorder, recurrent epi sode, mild [address], [address] [place] [address] [place], [place] [phone] (Wo rk) [address] [phone] Social History Tobacco Use Types Packs/Day Years [...] Body Mass Index 38.08 07/20/2015 1:49 PM CELL ATTENDANT documented in this encounter Patient Instructions Patient [...] Roland MD - 09/01/2015 9:35 AM CDT [address], [address] [facility] [address] Dept: [phone] PRE-OP EVALUATION: Today's date: 09/01/2015 Dariana Osman (: 1975) presents for pre-operative evaluation assessment as requested by Dr. Gtuierrez. She requires evaluation and anesthesia risk assessment prior to undergoing surgery/procedure for treatment of very heavy periods. Proposed procedure: ablation and Tubal Date of Surgery/ Procedure: 09/26/15 Time of Surgery/ Procedure: unknown Hospital/Surgical Facility: [facility] Fax number for surgical facility: Primary Physician: [...] has been followed by Dr. Dooley at [facility] for this. They have evaluated it [...] ([facility]) 11/23/2012 Priority: Medium 11/23/12 [facility]. 12/25/12 [place]= BRIGID 2. Referred to Ob~Dentist Attendant, Dr. Christensen 02/18/13 LEEP= Negative, R/P pap in 6 and 12 months. Due 08/2013 and 02/201410/01/13 Dx pap= Normal. Repeat co-testing in 6 months. 06/27/14 [facility] Pap= Normal, Neg HPV. [...] cardiovascular risks for perioperative complications such as (CO, PE, VFib and 3?? AV Block): No [...] evaluation report is provided to requesting physician. [place] Preop Guidelines documented in this encounter Nursing [...] athologist Signature WBC 9.0 4.0 - 11.0 [place] 10e9/L [facility] RBC Count 5.08 3.8 - 5.2 [place] 10e12/L [facility] Hemoglobin 15.1 11.7 - [place] 15.7 g/dL [facility] Hematocrit 45.3 35.0 - [place] 47.0 % [facility] MCV 89 78 - 100 [facility] MCH 29.7 26.5 - [place] 33.0 pg [facility] MCHC 33.3 31.5 - [place] 36.5 g/dL [facility] RDW 12.5 10.0 - [place] 15.0 % [facility] Platelet Count 367 150 - 450 [place] 10e9/L [facility] Specimen Anatomical Collection Method Collection Time Receive d Time (Source) Location / / Volume Laterality Blood specimen 09/01/2015 10:28 6 (specimen) AM CDT 10:33 AM CDT Esmer Roland MD LAB - BLOOD ORDERABLES Performing Organization Address City/State/ZIP Code Phon e Number [facility] [place] [address] documented in this encounter Visit Diagnoses Diagnosis [...] documented as of this encounter Care Teams Relationship Banker Relationship Specialty Start Date End Date Esmer Roland MD PCP - General Family Practice 09/21/10 01/29/17 documented as of this encounter
--- OUTSIDE RECORDS SUMMARY | 2022-05-20 09:02 | XMS_ITS | Encounter Summary ---
:1975 Author Organization [place] Address [address] [facility] [place] [address] Care Team Providers Name Role Phone Esmer Roland MD Primary Care Provider [phone] Reason for Visit Reason Comments Minor Procedure endometrial biopsy Encounter Details Date Type Department Care Team Description 07/20/2015 Office Visit [facility] Jeimy Christensen Abnormal uterine Women[facility] DO Verito bleeding (AUB) [place] [address] (Primary Dx) [address] [place], [place] [address] [address] [place], [place] [phone] [address] (Work) [phone] Social History Tobacco Use Types Packs/Day Years [...] Comments Blood Pressure 124/84 07/20/2015 1:49 PM CONSULTING HR PROFESSIONAL Pulse 78 07/20/2015 1:49 PM CONSULTING HR PROFESSIONAL Temperature 36.9 ??C (98.5 ??F) 07/20/2015 1:49 PM CONSULTING HR PROFESSIONAL Respiratory Rate - - Oxygen Saturation 97% 07/20/2015 1:49 PM CONSULTING HR PROFESSIONAL Inhaled Oxygen Concentration - - Weight 109.1 kg (240 lb 9.6 oz) 07/20/2015 1:49 PM CONSULTING HR PROFESSIONAL Height 167.6 cm (5' 6) 07/20/2015 1:49 PM CONSULTING HR PROFESSIONAL Body Mass Index 38.83 07/20/2015 1:49 PM CONSULTING HR PROFESSIONAL documented in this encounter Patient Instructions Patient InstructionsJeimy Christensen DO - 07/20/2015 2:26 PM CST reyna will call you Dr. Jeimy Christensen DO Obstetrics and Gynecology [facility] ULTING HR PROFESSIONAL documented in this encounter Progress Notes Jeimy [...] Gynecology [facility] ULTING HR PROFESSIONAL documented in this encounter Nursing Notes Mary [...] completed using cuff size: everton Diego CMA ULTING HR PROFESSIONAL documented in this encounter Miscellaneous Notes Addendum Note - Mary Diego CMA - 07/20/2015 2:31 PM CONSULTING HR PROFESSIONAL Addended by: MARY DIEGO on: 07/20/2015 02:31 PM Modules accepted: Orders ULTING HR PROFESSIONAL documented in this encounter Plan of Treatment Not on filedocumented as of this encounter Procedures Procedure Name Priority Date/Time Associated Comments Diagnosis SURGICAL PATHOLOGY Routine 07/20/2015 2:30 PM Abnormal uterine Results for this EXAM CONSULTING HR PROFESSIONAL bleeding (AUB) procedure are in the results section. HC ENDOMETRIAL BIOPSY Routine 07/20/2015 2:27 PM Abnormal uter ine W/O CERVICAL DILATION CONSULTING HR PROFESSIONAL bleeding (AUB) documented in this encounter Results Surgical pathology exam (07/20/2015 2:30 PM CONSULTING HR PROFESSIONAL) Component Value Ref Test Analysis Performed At [facility] Range Method Time Signature Copath Report Patient Name: DARIANA VALDEZ MR#: [id number] Specimen #: [id number] Collected: 07/20/2015 Received: 07/20/2015 [...] Microscopic examination is performed. CPT Codes: A: 72826-JJ1 TESTING LAB LOCATION: [address] ??[address] COLLECTION SITE: Client: [facility] Location: [facility] (R) Specimen Anatomical Collection Method Collection Time Receive d Time (Source) Location / / Volume Laterality 07/20/2015 2:30 PM 6 3:46 CONSULTING HR PROFESSIONAL PM CONSULTING HR PROFESSIONAL Jeimy SHETTY - [facility] Performing Organization Address City/State/ZIP Code Phon e Number [place] documented in this encounter Visit Diagnoses Diagnosis Abnormal uterine bleeding (AUB) - Primar y documented in this encounter Additional Health Concerns Assessment Noted Time PHQ-9 Depression Total Score: 12 06/17/2015 7:51 AM CS T documented as of this encounter Care Teams Men'S And Boys' Clothing Salesperson Relationship Specialty Start Date End Date Esmer Roland MD PCP - General Family Practice 09/21/10 01/29/17 documented as of this encounter
--- OUTSIDE RECORDS SUMMARY | 2022-05-20 09:02 | XMS_ITS | Encounter Summary ---
:1975 Author Organization [place] Address [address] [place] [address]. [place] [address] Care Team Providers Name Role Phone Esmer Roland MD Primary Care Provider [phone] Reason for Visit Reason Onset Date Comments Refill Request 11/04/2014 Lexapro 20mg Encounter Details Date Type Department Care Team Description 11/04/2014 Refill [facility] Esmer Roland Refill Request (Lexapro Clinic [place] MD Rochelle 20mg) [address] [facility], [address] [place] [address] [address] [place] [address] [place], [place] [phone] (Wo rk) [address] [phone] Social History Tobacco Use Types Packs/Day Years [...] mild documented in this encounter Care Teams Drug Abuse Resistance Education Officer Relationship Specialty Start Date End Date Esmer Roland MD PCP - General Family Practice 09/21/10 01/29/17 documented as of this encounter
--- OUTSIDE RECORDS SUMMARY | 2022-05-20 09:02 | XMS_ITS | Encounter Summary ---
:1975 Author Organization [place] Address [address] [facility] [place] [address] Care Team Providers Name Role Phone Esmer Roland MD Primary Care Provider Encounter Details Date Type Department Care Team Description 07/20/2015 Orders Only [facility] Jeimy Christensen or paco (Primary Women's Clinic DO Verito Dx) [place] [address] [place], [place] [address] [address] [place], [place] [phone] [address] (Work) [phone] Social History Tobacco Use Types Packs/Day Years [...] CHRISTENSEN Assist: Yes, if ruddy available Location: [facility] Date/time preference: September (prefers or ) [...] documented as of this encounter Care Teams Male Impersonator Relationship Specialty Start Date End Date Esmer Roland MD PCP - General Family Practice 09/21/10 01/29/17 documented as of this encounter
--- OUTSIDE RECORDS SUMMARY | 2022-05-20 09:02 | XMS_ITS | Encounter Summary ---
:1975 Author Organization [place] Address Formerly [facility] [place] [address] Care Team Providers Name Role Phone Esmer Roland MD Primary Care Provider [phone] Reason for Visit Reason Onset Date Comments Refill Request 02/27/2015 Xanax Encounter Details Date Type Department Care Team Description 02/27/2015 Refill [facility] Esmer Roland Refill Request (Xanax) Clinic [place] MD [place] [address] [place] [address], [address] [place] [address] [address] [place] [address] [place], [place] [phone] (Wo rk) [id number] [phone] Social History Tobacco Use Types Packs/Day Years [...] CDT RX faxed to pharmacy [facility] Telephone Encounter - Mayela Reese RN [...] Avalos - 02/27/2015 2:42 PM CDT Ph. [phone] Patient crying on the phone and does not have insurance Pending Prescriptions: Disp Refills ALPRAZolam (XANAX) 0.5 MG tablet 40 tab*0 Sig: Take 1 tablet (0.5 mg) by mouth nightly as needed for anxiety Last Written Prescription Date: 10/01/2013 Last Fill Quantity: 40, # refills: 0 Last Office Visit with [facility] primary care provider: 01/06/2015 Future Office visit: Routing refill request to provider for review/approval because: Drug not on the [facility] refill protocol or controlled substance Nohemi Avalos Garageman documented in this encounter Plan of Treatment Not on filedocumented as of this encounter Visit Diagnoses Diagnosis Insomnia - Primary Insomnia, unspecified documented in this encounter Care Teams City Plant Supervisor Relationship Specialty Start Date End Date Esmer Roland MD PCP - General Family Practice 09/21/10 01/29/17 documented as of this encounter
--- OUTSIDE RECORDS SUMMARY | 2022-05-20 09:02 | XMS_ITS | Encounter Summary ---
:1975 Author Organization [place] Address [address] [facility] [place] [address] Care Team Providers Name Role Phone Esmer Roland MD Primary Care Provider Reason for Visit Reason Comments Recheck Medication Encounter Details Date Type Department Care Team Description 06/16/2015 Office Visit [facility] Esmer Roland d epressive disorder, recurrent episode, mild (H) (Primary Dx); Clinic Sara Byrd MD Anxiety; [place] [address] [facility] Routine general medical examination at a health care facility; [facility], [address] [place], [place] Vitamin D deficiency; [place] [address] CARDIOVASCULAR SCREENING; LDL GOAL LESS THAN 160; [id number] obesity due to excess calori ([facility]) Social History Tobacco Use Types Packs/Day Years [...] Comments Blood Pressure 110/60 06/16/2015 8:36 AM MANAGER POLICY Pulse 70 06/16/2015 8:36 AM MANAGER POLICY Temperature - - Respiratory Rate 16 06/16/2015 8:36 AM MANAGER POLICY Oxygen Saturation - - Inhaled Oxygen Concentration - - Weight 107.5 kg (237 lb) 06/16/2015 8:36 AM MANAGER POLICY Height 167.6 cm (5' 6) 06/16/2015 8:36 AM MANAGER POLICY Body Mass Index 38.25 06/16/2015 8:36 AM MANAGER POLICY documented in this encounter Progress Notes Esmer [...] 01/06/2015 Total Score 2 4 4 PHQ-9 Albanian PHQ-9 Any Language GAD7 ?? Amount of [...] loss Regular exercise Follow up 1 month sEmer Roland MD [facility] GER POLICY documented in this encounter Nursing Notes Mayela [...] completed using cuff size: everton Reese RN GER POLICY documented in this encounter Plan of Treatment Not on filedocumented as of this encounter Procedures Procedure Name Priority Date/Time Associated Diagnosis Comme nts VITAMIN D DEFICIENCY Routine 06/16/2015 8:31 Vitamin D deficie ncy Results for this SCREENING AM MANAGER POLICY procedure are i n the results section. TSH WITH FREE T4 Routine 06/16/2015 8:31 Major depressive Resu lts for this REFLEX AM MANAGER POLICY disorder, recurrent procedur e are in episode, mild (H) the result s section. LIPID REFLEX TO Routine 06/16/2015 8:31 CARDIOVASCULAR Results for this DIRECT LDL PANEL AM MANAGER POLICY SCREENING; LDL GOAL proc edure are in LESS THAN 160 the results section. COMPREHENSIVE Routine 06/16/2015 8:31 Major depressive Results for this METABOLIC PANEL AM MANAGER POLICY disorder, recurrent proce dure are in episode, mild (H) the result s section. CBC WITH PLATELETS Routine 06/16/2015 8:31 Major depressive Re sults for this AM MANAGER POLICY disorder, recurrent procedur e are in episode, mild (H) the result s section. documented in this encounter Results (ABNORMAL) Lipid panel reflex to direct LDL (06/16/2015 8:31 AM MANAGER POLICY) Analysis Performed At Patho logist Time Signature Cholesterol 158 <200 mg/dL [facility] Triglycerides 204 (H) <150 mg/dL [facility] Comment: Borderline high: ??150-199 mg/dl High: ? 200-499 mg/dl Very high: ? >499 mg/dl Fasting specimen HDL Cholesterol 37 (L) >49 mg/dL [place] CLINI CS [facility] LDL Cholesterol Calculated 80 <100 mg/dL [facility] Comment: Desirable: <100 mg/dl Non HDL Cholesterol 121 <130 mg/dL [facility] Specimen Anatomical Collection Method Collection Time Receive d Time (Source) Location / / Volume Laterality Blood specimen 06/16/2015 8:31 AM 016 8:32 (specimen) MANAGER POLICY AM MANAGER POLICY Esmer Roland MD LAB - BLOOD ORDERABLES Performing Organization Address City/State/ZIP Code Phon e Number [facility] [address] [place] [address] TSH with free T4 reflex (06/16/2015 8:31 AM MANAGER POLICY) athologist Signature TSH 2.98 0.40 - 4.00 [facility] mU/L [facility] Specimen Anatomical Collection Method Collection Time Receive d Time (Source) Location / / Volume Laterality Blood specimen 06/16/2015 8:31 AM 016 8:32 (specimen) MANAGER POLICY AM MANAGER POLICY Esmer Roland MD LAB - BLOOD ORDERABLES Performing Organization Address City/[facility]/ZIP Code Phon e Number [facility] [address] [place] [address] CBC with platelets (06/16/2015 8:31 AM MANAGER POLICY) athologist Signature WBC 9.2 4.0 - 11.0 [place] 10e9/L [facility] RBC Count 4.77 3.8 - 5.2 [place] 10e12/L [facility] Hemoglobin 14.2 11.7 - [facility] 15.7 g/dL [facility] Hematocrit 42.5 35.0 - [facility] 47.0 % [facility] MCV 89 78 - 100 [place] fl [facility] MCH 29.8 26.5 - [facility] 33.0 pg [facility] MCHC 33.4 31.5 - [facility] 36.5 g/dL [facility] RDW 12.3 10.0 - [place] 15.0 % [facility] Platelet Count 292 150 - 450 [place] 10e9/L [facility] Specimen Anatomical Collection Method Collection Time Receive d Time (Source) Location / / Volume Laterality Blood specimen 06/16/2015 8:31 AM 016 8:32 (specimen) MANAGER POLICY AM MANAGER POLICY Esmer Roland MD LAB - BLOOD ORDERABLES Performing Organization Address City/[facility]/ZIP Code Phon e Number [facility] [address] (ABNORMAL) Comprehensive metabolic panel (06/16/2015 8:31 AM MANAGER POLICY) athologist Signature Sodium 140 133 - 144 [place] mmol/L [facility] Potassium 4.4 3.4 - 5.3 [place] mmol/L [facility] Chloride 107 94 - 109 [place] mmol/L [facility] Carbon Dioxide 24 20 - 32 [place] mmol/L [facility] Anion Gap 9 3 - 14 [place] mmol/L [facility] Glucose 87 70 - 99 [place] mg/dL [facility] Urea Nitrogen 13 7 - 30 [place] mg/dL [facility] Creatinine 0.94 0.52 - [place] 1.04 mg/dL [facility] GFR Estimate 66 >60 [place] mL/min/1.7 CLINICS m2 [facility] Comment: Non GFR Calc GFR Estimate If Black 80 >60 mL/min/1.7m2 F [facility] Comment: GFR Calc Calcium 8.4 (L) 8.5 - 10.1 mg/dL [place] CLIN ICS [facility] Bilirubin Total 0.2 0.2 - 1.3 mg/dL [facility] Albumin 3.5 3.4 - 5.0 g/dL [facility] Protein Total 6.8 6.8 - 8.8 g/dL [place] CL INICS [facility] Alkaline Phosphatase 66 40 - 150 U/L [facility] ALT 17 0 - 50 U/L [facility] AST 10 0 - 45 U/L [facility] Specimen Anatomical Collection Method Collection Time Receive d Time (Source) Location / / Volume Laterality Blood specimen 06/16/2015 8:31 AM 016 8:32 (specimen) MANAGER POLICY AM MANAGER POLICY Esmer Roland MD LAB - BLOOD ORDERABLES Performing Organization Address City/State/ZIP Code Phon e Number [facility] [address] [place] [address] Vitamin D Deficiency (06/16/2015 8:31 AM MANAGER POLICY) athologist Signature Vitamin D 28 20 - 75 [facility] Deficiency ug/L [facility] Comment: Season, race, dietary intake, and treatm ent affect the concentration of 34-iwuwikz-Xsiralh D. Values may decrea se during winter [...] specimen 06/16/2015 8:31 AM 016 8:32 (specimen) MANAGER POLICY AM MANAGER POLICY Esmer Roland MD LAB - BLOOD ORDERABLES Performing Organization Address City/State/ZIP Code Phon e Number [facility] [address] documented in this encounter Visit Diagnoses [...] documented as of this encounter Care Teams Apple Checker Relationship Specialty Start Date End Date Esmer Roland MD PCP - General Family Practice 09/21/10 01/29/17 documented as of this encounter
--- OUTSIDE RECORDS SUMMARY | 2022-05-20 09:02 | XMS_ITS | Encounter Summary ---
:1975 Author Organization [place] Address [address] [place] [address] Care Team Providers Name Role Phone Esmer Roland MD Primary Care Provider [phone] Reason for Visit Reason Comments Pre-Op Exam breast reduction/ repair Encounter Details Date Type Department Care Team Description 04/01/2014 Office Visit [facility] Yony Garcia Preop general physical exam (Primary Dx); Clinic Sara Hoyos PA-C Need for immunization against influenza [place] [address] [facility], [address] [place] [address] [phone] Social History Tobacco Use Types Packs/Day Years [...] Gambino PA-C - 04/01/2014 9:39 AM CDT [address], [address] [facility] [address] Dept: [phone] PRE-OP EVALUATION: Today's date: 04/01/2014 Dariana Osman (: 1975) presents for pre-operative evaluation assessment as requested by Dr. Chuck Washington. She requires evaluation and anesthesia risk assessment prior to undergoing surgery/procedure for treatment of breast correction/reduction . Proposed procedure: breast repair/reduction Date of Surgery/ Procedure: 04/06/14 Time of Surgery/ Procedure: 6:45 AM Hospital/Surgical Facility: [facility] Fax number for surgical facility: [phone] Primary Physician: Esmer Roland Type of Anesthesia [...] (ASC-H) 11/23/2012 Priority: Medium 11/23/12 ASC-H. 12/25/12 [place]= BRIGID 2. Referred to Ob~Conservation Assistant, Dr. Christensen 02/18/13 LEEP= Negative, R/P pap [...] cardiovascular risks for perioperative complications such as ([place], PE, VFib and 3?? AV Block): No [...] athologist Signature Hemoglobin 14.4 11.7 - 15.7 [place] g/dL [facility] Specimen Anatomical Collection Method Collection Time Receive d Time (Source) Location / / Volume Laterality Blood specimen 04/01/2014 11:05 4 (specimen) AM CDT 11:06 AM CDT Yony Garcia PA-C LAB - BLOOD ORDERABLES Performing Organization Address City/State/ZIP Code Phon e Number [facility] [id number] [place] [address] documented in this encounter Visit Diagnoses Diagnosis Preop general physical exam - Primary Other specified pre-operative examinatio n Need for immunization against influenza Need for prophylactic vaccination and in oculation against influenza documented in this encounter Care Teams Bench Lathe Operator Relationship Specialty Start Date End Date Esmer Roland MD PCP - General Family Practice 09/21/10 01/29/17 documented as of this encounter
--- OUTSIDE RECORDS SUMMARY | 2022-05-20 09:02 | XMS_ITS | Encounter Summary ---
:1975 Author Organization [place] Address [address] [facility] [place] [address] Care Team Providers Name Role Phone Esmer Roland MD Primary Care Provider Encounter Details Date Type Department Care Team Description 04/28/2015 Radiant Appointment [facility] Jeimy Christensen xcessive or frequent Clinic [facility] menstruation [address] [facility] [address] [phone] Social History Tobacco Use Types Packs/Day Years [...] or Results for this TRANSABDOMINAL AND PM MULE OPERATOR frequent procedure are in TRANSVAGINAL menstruation the results section. documented in this encounter Results US Pelvic Complete with Transvaginal (07/20/2015 2:26 PM MULE OPERATOR) Anatomical Region Laterality Modality Abdomen/Pelvis Ultrasound Specimen (Source) Anatomical Location Collection Method / Collectio n Time Received Time / Laterality Volume Impressions 07/21/2015 6:20 AM MULE OPERATOR #: [id number] Study Notes ? Lizzette Bell on 07/20/2015 2:29 PM [facility] Obstetrics & Gynecology [address] [place] [address] ULTRASOUND - PELVIC DATA MODELING ARCHITECT Referring MD: Jeimy Christensen Primary Clinic: [facility] CLINICAL INFORMATION Indications for ultrasound: [...] indicated Lois BANERJEE Narrative 07/21/2015 6:20 AM MULE OPERATOR Order Jeimy Christensen DO IMG US ORDERABLES documented in this encounter Visit Diagnoses Diagnosis Excessive or frequent menstruation documented in this encounter Care Teams Reset Merchandiser Relationship Specialty Start Date End Date Esmer Roland MD PCP - General Family Practice 09/21/10 01/29/17 documented as of this encounter
--- OUTSIDE RECORDS SUMMARY | 2022-05-20 09:02 | XMS_ITS | Encounter Summary ---
:1975 Author Organization [place] Address [address] [place] [address]. [place] [address] Care Team Providers Name Role Phone Esmer Roland MD Primary Care Provider [phone] Reason for Visit Reason Onset Date Comments Nurse Advice Line 04/04/2015 edema top of foot an d ankle Encounter Details Date Type Department Care Team Description 04/04/2015 Telephone [facility] Esmer Roland Nurse A dvice Line Clinic Sara Byrd MD (edema top of foot and [facility], [id number] [place] [address] AV ankle) [address] [place] [address] [place], [place] [phone] (Wo rk) [address] [phone] Social History Tobacco Use Types Packs/Day Years [...] coverage. We recommended she contact PCP via [employer] for an e-visit. Caller agrees to plan. Amadeo Weiss RN documented in this encounter Plan of Treatment Not on filedocumented as of this encounter Visit Diagnoses Not on filedocumented in this encounter Care Teams Coater Helper Relationship Specialty Start Date End Date Esmer Roland MD PCP - General Family Practice 09/21/10 01/29/17 documented as of this encounter
--- OUTSIDE RECORDS SUMMARY | 2022-05-20 09:02 | XMS_ITS | Encounter Summary ---
:1975 Author Organization [place] Address [address] [place] [address]. [place] [address] Care Team Providers Name Role Phone Esmer Roland MD Primary Care Provider [phone] Yony Garcia PA-C Primary Care Provider [phone] Yony Garcia PA-C Unavailable [phone] Yony Garcia PA-C Unavailable [phone] Encounter Details Date Type Department Care Team Description 06/27/2014 Result Follow [facility] Esmer Roland Dx: Ab normal Pap smear, Up Clinic [place] [address] [place] [address] [address] intraepit [facility], [address] (ASC-H) (Primary Dx) [place] [phone] [id number] Social History Tobacco Use Types Packs/Day Years [...] 06/27/2014 4:04 PM CST 11/23/12 ASC-H. 12/25/12 [place]= BRIGID 2. Referred to Ob~Chrome Plater, Dr. Christensen 02/18/13 LEEP= Negative, R/P pap in 6 and 12 months. Due 08/2013 and 02/201410/01/13 Dx pap= Normal. Repeat co-testing in 6 months. 06/27/14 Pap reminder sent per [facility] 07/08/14 Pap= NIL, Neg HPV. Co-test 1 yr 01/25/16 [facility] pap reminder message sent. (es) 08/08/16 Spoke with pt, reminded her of need for pap and offered [facility] phone number for scheduling. Pt declined phone number and thanked for the call. ([facility]) 11/21/16 Would consider patient to be lost to follow-up. Routed to provider for review. ([facility]) 12/24/16 ASCUS pap, neg HR HPV. 02/05/17 [...] ACOG Practice Bulletin # 131, Apr 2012. ORICAL SOCIETY DIRECTOR Esmer Roland MD - 06/27/2014 4:03 PM CST Please call pt and see if she is going elsewhere for her paps or offer to schedule appt with me Thank you Caroline Bryant RN - 06/27/2014 4:03 PM CST LM on to call back. Caroline Burns RN, BSN, PHN [facility] RN ORICAL SOCIETY DIRECTOR Caroline Bryant RN - 06/27/2014 4:03 PM CST Pt. Informed of 01/25/2016 [employer] message that was sent. Triage reviewed patient chart with her on the phone. Pt. Expressed understanding and will schedule avisit with Dr. Christensen as she also has other concerns. Caroline Burns RN, BSN, PHN [facility] RN ORICAL SOCIETY DIRECTOR documented in this encounter Plan of Treatment Not on filedocumented as of this encounter Visit Diagnoses Diagnosis Abnormal Pap smear, can't excl hi gd sq intraepithelial lesion (ASC-H) - Primary Papanicolaou smear of cervix with atypic al squamous cells cannot exclude high grade squamous intraepithelial lesion (ASC-H) documented in this encounter Care Teams Life Skills Instructor Relationship Specialty Start Date End Date Esmer Roland, PCP - General Family Practice 09/21/10 01/29/17 Yony Garcia, PCP - General Physician Vocational Services Specialist - 01/30/17 07/23/18 PA-C Medical Yony Garcia, PCP - Assigned PCP 09/01/16 08/11/18 PA-C [id number] [place] [address] Yony Garcia, Assigned PCP 09/01/16 PA-C [id number] [place] [id number] documented as of this encounter
--- OUTSIDE RECORDS SUMMARY | 2022-05-20 09:02 | XMS_ITS | Encounter Summary ---
:1975 Author Organization [place] Address [address] [facility] [place] [address] Care Team Providers Name Role Phone Esmer Roland MD Primary Care Provider [phone] Encounter Details Date Type Department Care Team Description 07/20/2015 Radiant Appointment [facility] Jeimy Christensen Jamie Sellers, DO [address] [facility] [id number] [place] [address] [address] [place], [place] [address] [address] [place], [place] [phone] (Work) [phone] Social History Tobacco Use Types Packs/Day Years [...] or Results for this TRANSABDOMINAL AND PM FINANCE BUSINESS PARTNER frequent procedure are in TRANSVAGINAL menstruation the results section. documented in this encounter Results US Pelvic Complete with Transvaginal (07/20/2015 2:26 PM FINANCE BUSINESS PARTNER) Anatomical Region Laterality Modality Abdomen/Pelvis Ultrasound Specimen (Source) Anatomical Location Collection Method / Collectio n Time Received Time / Laterality Volume Impressions 07/21/2015 6:20 AM FINANCE BUSINESS PARTNER #: [id number] Study Notes ? Lizzette Bell on 07/20/2015 2:29 PM [facility] Obstetrics & Gynecology [address] [place] [address] ULTRASOUND - PELVIC WOOL HAT FLANGER Referring MD: Jeimy Christensen Primary Clinic: [facility] CLINICAL INFORMATION Indications for ultrasound: Bleeding/Menses - [...] indicated Lois BANERJEE Narrative 07/21/2015 6:20 AM FINANCE BUSINESS PARTNER Order Jeimy Christensen DO IMG US ORDERABLES documented in this encounter Visit Diagnoses Not on filedocumented in this encounter Additional Health Concerns Assessment Noted Time PHQ-9 Depression Total Score: 12 06/17/2015 7:51 AM CS T documented as of this encounter Care Teams Metal Drill Operator Relationship Specialty Start Date End Date Esmer Roland MD PCP - General Family Practice 09/21/10 01/29/17 documented as of this encounter
--- OUTSIDE RECORDS SUMMARY | 2022-05-20 09:02 | XMS_ITS | Encounter Summary ---
:1975 Author Organization [place] Address [address] [place] [address] Care Team Providers Name Role Phone Esmer Roland MD Primary Care Provider Reason for Visit Reason Comments Depression Encounter Details Date Type Department Care Team Description 07/21/2015 Office Visit [facility] Esmer Roland epressive Clinic Sara Byrd MD disorder, recurrent [place] [address] episode, mild (H) Road, [address] [place] [address] (Primary Dx) [place], [place] [phone] (Wo rk) [address] [phone] Social History Tobacco Use Types Packs/Day Years [...] Comments Blood Pressure 112/80 07/21/2015 11:20 AM DRAFTER CASTINGS Pulse 85 07/21/2015 11:20 AM DRAFTER CASTINGS Temperature 37.2 ??C (98.9 ??F) 07/21/2015 11:20 AM DRAFTER CASTINGS Respiratory Rate 16 07/21/2015 11:20 AM DRAFTER CASTINGS Oxygen Saturation 96% 07/21/2015 11:20 AM DRAFTER CASTINGS Inhaled Oxygen Concentration - - Weight 107.8 kg (237 lb 11.2 oz) 07/21/2015 11:20 AM DRAFTER CASTINGS Height - - Body Mass Index 38.37 07/20/2015 1:49 PM DRAFTER CASTINGS documented in this encounter Progress Notes Esmer [...] - Total Score - - 5 PHQ-9 British PHQ-9 Any Language GAD7 ?? Amount of [...] 237 lb (107.502 kg) Labs reviewed in [facility] Problem list, Medication list, Allergies, and Medical/Social/Surgical histories reviewed in [facility] andupdated as appropriate. ROS: C: NEGATIVE for [...] 90 capsule; Refill: 5 Esmer Roland MD [facility] TER CASTINGS documented in this encounter Plan of Treatment Not on filedocumented as of this encounter Visit Diagnoses Diagnosis Major depressive disorder, recurrent epi sode, mild (H) - Primary Major depressive disorder, recurrent epi sode, mild documented in this encounter Additional Health Concerns Assessment Noted Time PHQ-9 Depression Total Score: 12 06/17/2015 7:51 AM CS T documented as of this encounter Care Teams Front End Ui Developer Relationship Specialty Start Date End Date Esmer Roland MD PCP - General Family Practice 09/21/10 01/29/17 documented as of this encounter
--- OUTSIDE RECORDS SUMMARY | 2022-05-20 09:02 | XMS_ITS | Encounter Summary ---
:1975 Author Organization [place] Address [address] [place] [address]. [place] [address] Care Team Providers Name Role Phone Esmer Roland MD Primary Care Provider [phone] Reason for Visit Reason Onset Date Comments Medication Request 10/13/2014 Lexapro 20mg Encounter Details Date Type Department Care Team Description 10/13/2014 Telephone [facility] Esmer Roland Medicat ion Request Clinic Sara Byrd MD (Lexapro 20mg) [address] [place] [address] [address] [place] [address] [place], [place] [phone] (Wo rk) [address] [phone] Social History Tobacco Use Types Packs/Day Years [...] Mayela Reese RN Telephone Encounter - Yony Garcai PA-C - 10/14/2014 9:57 AM CDT She will need to taper off the zoloft. Go to 50mg daily and can add 10mg lexapro. Do this for a couple weeks. Then 25mg zoloft and 20mg lexapro for 1-2 weeks. Then can stop zoloft if feeling OK. Telephone Encounter - Mayela Reese RN - 10/14/2014 8:[address] Luan Bahkta is out of the office today. Can [...] unspecified documented in this encounter Care Teams Boiler Testing Technician Relationship Specialty Start Date End Date Esmer Roland MD PCP - General Family Practice 09/21/10 01/29/17 documented as of this encounter
--- OUTSIDE RECORDS SUMMARY | 2022-05-20 09:02 | XMS_ITS | Encounter Summary ---
:1975 Author Organization [place] Address [address] [facility] [place] [address] Care Team Providers Name Role Phone Esmer Roland MD Primary Care Provider [phone] Reason for Visit Reason Onset Date Comments Schedule Surgery 07/20/2015 Encounter Details Date Type Department Care Team Description 07/20/2015 Telephone [facility] Women's Jeimy Christensen, Schedule Surgery Clinic [place] [address] [place] [place] [address] [facility] [address] [place] [phone] (Wo rk) Social [...] NOVASURE Date: 09/26/15 Time: 7:30 AM Hospital: [facility] Patient advised of the following: [...] was placed on the surgery calendar in [place]. 7TH GRADE SOCIAL STUDIES TEACHER Telephone Encounter - Airam Billy - 07/20/2015 2:46 PM CST Left message for patient to return the call. Patient will need to schedule a nurse only appointment to sign the Sterilization Consent form. 7TH GRADE SOCIAL STUDIES TEACHER Telephone Encounter - Airam Billy - 07/20/2015 2:45 PM CST Surgeon:JEIMY CHRISTENSEN Assist: Yes, if ruddy available Location: [facility] Date/time preference: September (prefers or ) Surgery: Laparoscopic bilateral tubal ligation with salpingectomy, uterine ablation with novasure Please have rep available Length of Surgery: 1.5 hours Diagnosis: Menorrhagia, multiparity desires permanent Anesthesia type: GENERAL Special instructions / equipment: Am admit or same day: SAME DAY Bowel prep: No Pre op: PCP Office visit with surgeon prior to surgery: No 7TH GRADE SOCIAL STUDIES TEACHER documented in this encounter Plan of Treatment Not on filedocumented as of this encounter Visit Diagnoses Not on filedocumented in this encounter Additional Health Concerns Assessment Noted Time PHQ-9 Depression Total Score: 12 06/17/2015 7:51 AM CS T documented as of this encounter Care Teams Property Staff Accountant Relationship Specialty Start Date End Date Esmer Roland MD PCP - General Family Practice 09/21/10 01/29/17 documented as of this encounter
--- OUTSIDE RECORDS SUMMARY | 2022-05-20 09:02 | XMS_ITS | Encounter Summary ---
:1975 Author Organization [place] Address [address] [facility] [place] [address] Care Team Providers Name Role Phone Esmer Roland MD Primary Care Provider [phone] Encounter Details Date Type Department Care Team Description 04/06/2014 Hospital Pathology [facility] TerrellMD Results [facility] PLASTIC SURGERY [facility] [address] S[place] [address] (Wo rk) Social History Tobacco Use Types [...] Component Value Ref Test Analysis Performed At [facility] Method Time Signature Copath Report Patient Name: DARIANA VALDEZ MR#: [id number] Specimen #: [id number] Collected: 04/06/2014 Received: 04/06/2014 Reported: 04/08/2014 16:16 [...] volume. ??No mass lesions are identified grossly. Spray Painter Helper sections are submitted in two cassettes. B.: [...] ??No mass lesi ons are identified grossly. ??Spray Painter Helper sections are submitted in two cassettes. (Dictated by: Blake Schofield 04/07/2014 10:15 AM) MICROSCOPIC: A and B. Microscopic performed CPT Codes: A: 88487-OH5 B: 69701-TS4 TESTING LAB LOCATION: [place] GFRANQ [address] ??[address] COLLECTION SITE: Client: Damon Jaimes ??[facility] Center Location: S223 (F) Specimen Anatomical Collection Method Collection Time Receive d Time (Source) Location / / Volume Laterality 04/06/2014 9:00 AM 4 3:46 CDT PM CDT Rommel Washington MD [facility] Performing Organization Address City/State/ZIP Code Phon e Number COPATH documented in this encounter Visit Diagnoses Not on filedocumented in this encounter Care Teams Director Building Relationship Specialty Start Date End Date Esmer Roland MD PCP - General Family Practice 09/21/10 01/29/17 documented as of this encounter
--- OUTSIDE RECORDS SUMMARY | 2022-05-20 09:02 | XMS_ITS | Encounter Summary ---
:1975 Author Organization [place] Address [address] [place] [address] Care Team Providers Name Role Phone Esmer Roland MD Primary Care Provider [phone] Reason for Visit Reason Comments Recheck Medication Encounter Details Date Type Department Care Team Description 01/06/2015 Office Visit [facility] Yony Garcia Major depressive disorder, single episode, moderate (H) (Primary Dx); Clinic [place] ZENON Hoyos Migraine without aura and without status migrainosus, not intractable; [place] [address] [address] MDD (major depressive disorder), recurre nt episode, mild (H) Road, [address] [place] [address] [place], [place] [phone] (Wo rk) [address] [phone] Social History Tobacco Use Types Packs/Day Years [...] Body Mass Index 36.41 07/08/2014 9:54 AM METAL COATER documented in this encounter Progress Notes Yony [...] Current substance abuse: None PHQ-9 SCORE ([facility]) 05/09/2014 05/27/2014 07/06/2014 Total Score 8 6 - Total Score - - 2 EUGENE-7 SCORE 04/06/2013 05/09/2014 05/27/2014 Total Score 5 2 4 PHQ-9 Yemeni PHQ-9 Any Language GAD7 ?? Amount of [...] she changes her mind. Yony Garcia PA-C [facility] Physical Exam documented in this encounter [...] mild documented in this encounter Care Teams Power Plant Electrician Relationship Specialty Start Date End Date Esmer Roland MD PCP - General Family Practice 09/21/10 01/29/17 documented as of this encounter
--- OUTSIDE RECORDS SUMMARY | 2022-05-20 09:02 | XMS_ITS | Encounter Summary ---
:1975 Author Organization [place] Address [address] [facility] [place] [address] Care Team Providers Name Role Phone Esmer Roland MD Primary Care Provider [phone] Reason for Visit Reason Onset Date Comments Refill Request 06/05/2015 lexapro Encounter Details Date Type Department Care Team Description 06/05/2015 Refill [facility] Esmer Roland Refill Request Clinic [place] MD [place] (lexapro) [address] [place] [address] SONJA BENAVIDEZ [id number] [phone] Social History Tobacco Use Types Packs/Day Years [...] Miscellaneous Notes Telephone Encounter - Anni Marquez [facility] - 06/06/2015 12:19 PM SALES SUPPORT REPRESENTATIVE Prescription approved per [facility] Refill Protocol - should address further refills at Jun 16 appointment. Juli Marquez, Pharm.D. [facility] Flo Pharmacist On behalf of [facility] S SUPPORT REPRESENTATIVE Telephone Encounter - Deidre Alas - 06/05/2015 12:12 PM CST Last Written Prescription Date: 01/06/15 Last Fill Quantity: 180, # refills: 0 Last Office Visit with [facility] primary care provider: 01/06/15 Next 5 appointments (look out 90 days) Jun 16, 2015 8:00 AM MyChart Long with Esmer Roland MD [facility] [address] [place] [address], [address] [facility] [phone] Jul 20, 2015 2:15 PM SHORT with Jeimy Christensen DO [facility] ([facility]) [address] [place] [address] Last PHQ-9 score on record= PHQ-9 SCORE 01/06/2015 Total Score 6 Total Score MyChart - S SUPPORT REPRESENTATIVE documented in this encounter Plan of Treatment Not on filedocumented as of this encounter Visit Diagnoses Diagnosis MDD (major depressive disorder), recurre nt episode, mild (H) - Primary Major depressive disorder, recurrent epi sode, mild documented in this encounter Care Teams Team Manager Relationship Specialty Start Date End Date Esmer Roland MD PCP - General Family Practice 09/21/10 01/29/17 documented as of this encounter
--- OUTSIDE RECORDS SUMMARY | 2022-05-20 09:02 | XMS_ITS | Encounter Summary ---
:1975 Author Organization [place] Address [address] [facility] [place] [address] Care Team Providers Name Role Phone Fawad Roland MD Primary Care Provider [phone] Reason for Visit Reason Comments Physical fasting Encounter Details Date Type Department Care Team Description [facility] Routine general medical examination at a health care facility (Primary Dx); Clinic Sara Byrd MD Family history of thyroid disease in fat her; [place] [address] [address] BMI 34.0-34.9,adult; Road, [address] [place] [address] [place], [place] [phone] (Wo rk) [address] [phone] Social History Tobacco Use Types Packs/Day Years [...] Comments Blood Pressure 122/80 07/08/2014 9:54 AM CAPONIZER Pulse 71 07/08/2014 9:54 AM CAPONIZER Temperature 37.3 ??C (99.1 ??F) 07/08/2014 9:54 AM CAPONIZER Respiratory Rate - - Oxygen Saturation 100% 07/08/2014 9:54 AM CAPONIZER Inhaled Oxygen Concentration - - Weight 99.8 kg (220 lb) 07/08/2014 9:54 AM CAPONIZER Height 168.9 cm (5' 6.5) 07/08/2014 9:54 AM CAPONIZER Body Mass Index 34.98 07/08/2014 9:54 AM CAPONIZER documented in this encounter Patient Instructions Patient [...] months for an exam and cleaning. ?? NIZER documented in this encounter Progress Notes Fawad [...] accordingly All Histories reviewed and updated in [facility]. Depression Follow-Up ?? Status since last visit: Worsened slightly, doing ok, changed from lexapro to zoloft, not feelingsociable lately, no energy ?? See PHQ-9 for current symptoms. ?? Other associated symptoms:None ?? Complicating factors: Significant life event: No Current substance abuse: None Anxiety / Panic symptoms: No PHQ-9 Czech PHQ-9 Any Language ROS: C: NEGATIVE for [...] Preventive Guidelines Dietary Guidelines for Americans, 2009 [employer] My[employer]ate regular exercise healthy diet/nutrition contraception-options discussed [...] fruits/vegetables and avoid sweets. Fawad Roland MD [facility] NIZER documented in this encounter Nursing Notes Timothy [...] completed using cuff size: large.Timothy Post MA NIZER documented in this encounter Plan of Treatment Not on filedocumented as of this encounter Procedures Procedure Name Priority Date/Time Associated Comments Diagnosis TSH WITH FREE T4 Routine 07/08/2014 10:36 Routine General Resu lts for this REFLEX AM CAPONIZER Medical Examination procedur e are in [facility] the results Facility section. Family history of thyroid disease in father BMI 34.0-34.9,adult LIPID REFLEX TO DIRECT Routine 07/08/2014 10:36 Routine Genera l Results for this LDL PANEL AM CAPONIZER Medical Examination procedur e are in [facility] the results Facility section. COMPREHENSIVE Routine 07/08/2014 10:36 Routine General Results for this METABOLIC PANEL AM CAPONIZER Medical Examination proce mehul are in [facility] the results Facility section. PAP IMAGED THIN LAYER Routine 07/08/2014 12:00 Routine General Results for this SCREEN AM CAPONIZER Medical Examination procedur e are in At [facility] the results Facility section. HPV SCR W REF TO TIEN Routine 07/08/2014 12:00 Re sults for this ANAL PAP OR TISSUE AM CAPONIZER procedure are in the results section. documented in this encounter Results Comprehensive metabolic panel (07/08/2014 10:36 AM CAPONIZER) P athologist Signature Sodium 139 133 - 144 [facility] mmol/L [facility] Potassium 4.8 3.4 - 5.3 [facility] mmol/L [facility] Chloride 108 94 - 109 [facility] mmol/L [facility] Carbon Dioxide 24 20 - 32 [facility] S mmol/L [facility] Anion Gap 7 3 - 14 [facility] mmol/L [facility] Glucose 83 70 - 99 [facility] mg/dL [facility] Comment: Effective 01/05/2014, the reference range for this assay has changed to reflect new instrumentation/methodology. Urea Nitrogen 11 7 - 30 mg/dL [facility] Comment: Effective 01/05/2014, the reference range for this assay has changed to reflect new instrumentation/methodology. Creatinine 0.81 0.52 - 1.04 mg/dL [facility] GFR Estimate 80 >60 mL/min/1.7m2 [facility] Comment: Non GFR Calc GFR Estimate If >90 >60 mL/min/1.7m2 [facility] Black GFR Calc [facility] Calcium 9.0 8.5 - 10.1 mg/dL [facility] Comment: Effective 01/05/2014, the reference range for this assay has changed to reflect new instrumentation/methodology. Bilirubin Total 0.3 0.2 - 1.3 mg/dL [facility] Albumin 3.7 3.4 - 5.0 g/dL [facility] S [facility] Protein Total 7.3 6.8 - 8.8 g/dL [facility] Alkaline Phosphatase 70 40 - 150 U/L [facility] ALT 24 0 - 50 U/L [facility] AST 11 0 - 45 U/L [facility] Specimen Anatomical Collection Method Collection Time Receive d Time (Source) Location / / Volume Laterality Blood specimen 07/08/2014 10:36 5 (specimen) AM CAPONIZER 10:37 AM CAPONIZER Fawad Roland MD LAB - BLOOD ORDERABLES Performing Organization Address City/State/ZIP Code Phon e Number [facility] [address] [place] [address] TSH with free T4 reflex (07/08/2014 10:36 AM CAPONIZER) P athologist Signature TSH 3.44 0.40 - 4.00 [facility] mU/L [facility] Comment: Effective 01/05/2014, the reference range for this assay has changed to reflect new instrumentation/methodology. Specimen Anatomical Collection Method Collection Time Receive d Time (Source) Location / / Volume Laterality Blood specimen 07/08/2014 10:36 5 (specimen) AM CAPONIZER 10:37 AM CAPONIZER Fawad Roland MD LAB - BLOOD ORDERABLES Performing Organization Address City/State/ZIP Code Phon e Number [facility] [address] [place] [address] (ABNORMAL) LIPID REFLEX TO DIRECT LDL PANEL (07/08/2014 10:36 AM CAPONIZER) P athologist Signature Cholesterol 155 <200 mg/dL [facility] Comment: LDL Cholesterol is the primary guide to therapy. The NCEP recommends further evaluation of: patients with cholesterol greater than 200 mg/dL if additional risk facto rs are present, cholesterol greater than 240 mg/dL, triglycerides greater than 1 50 mg/dL, or HDL less than 40 mg/dL. Triglycerides 159 (H) 0 - 150 mg/dL [facility] HDL Cholesterol 46 (L) >50 mg/dL [facility] LDL Cholesterol Calculated 77 0 - 129 mg/dL [facility] Comment: LDL Cholesterol is the primary guide to therapy: LDL-cholesterol goal in high risk patients is <100 mg/dL and in very high risk patients is <70 mg/dL. VLDL-Cholesterol 32 (H) 0 - 30 mg/dL [facility] Cholesterol/HDL Ratio 3.4 0.0 - 5.0 [facility] Specimen Anatomical Collection Method Collection Time Receive d Time (Source) Location / / Volume Laterality Blood specimen 07/08/2014 10:36 5 (specimen) AM CAPONIZER 10:37 AM CAPONIZER Fawad Roland MD LAB - BLOOD ORDERABLES Performing Organization Address City/State/ZIP Code Phon e Number [facility] [address] [place] [address] HPV screen with reflex to genotype (07/08/2014 12:00 AM CAPONIZER) Component Value Ref Test Analysis Performed At Patholo gist Range Method Time Signature Copath Report Patient Name: DARIANA VALDEZ MR#: [id number] Specimen #: [id number] Collected: 07/08/2014 00:00 Received: 07/14/2014 11:28 Reported: 07/14/2014 16:18 Ordering Phy(s): FAWAD ROLAND TEST(S) REQUESTED: Human Papillomavirus Screen Analysis SPECIMEN DESCRIPTION: Cervical Cells RESULTS: HPV 16 DNA: ?? NEGATIVE HPV 18 DNA: ??NEGATIVE OTHER HR HPV DNA: ??NEGATIVE FINAL DIAGNOSIS: ?? This patient's sample is negative for HP V DNA. ?? The [place] [employer] (ACOG) r [...] and its performance characteristics determined by the [facility], [facility]. It has not been cleared or approved by the FDA. The laboratory is regulated under CLIA as qualified to perform high-complexity testing. This test is used for clinical purp oses. It should not be regarded as investigational or for research. Electronically Signed Out By: DAVIS Supervisor Irrigation CPT Codes: A: 96995- HPVSC TESTING LAB LOCATION: [facility] [address] [facility] [address] [place] [address] COLLECTION SITE: Client: ??[facility] Location: ??FMFP (R) Specimen (Source) Anatomical Collection Method Collection Time Re ceived Time Location / / Volume Laterality 07/08/2014 07/14/2014 11:2 8 AM CAPONIZER Fawad Roland MD LAB - GENOMICS Performing Organization Address City/State/ZIP Code Phon e Number [facility] PAP IMAGED THIN LAYER SCREEN (07/08/2014 12:00 AM CAPONIZER) Component Value Ref Test Analysis Performed At [facility] Range Method Time Signature PAP NIL COPATH Copath Report COPATH Patient Name: DARIANA VALDEZ MR#: [id number] Specimen #: [id number] Collected: 07/08/2014 Received: 07/11/2014 Reported: 07/13/2014 13:17 [...] LAVON [place] (ASCP) Processed and screened at [facility] CLINICAL HISTORY: Previous normal pap Date of Last Pap: 10/01/13 Previous abnormal pap: HGSIL, LEEP: in 2012, Papanicolaou Test Limitations: ??Cervical cytology is a scre ening test with limited sensitivity; regular screening is critical for cancer prevention; Pap tests are primarily effective for the diagnosis/prevention of squamous cell carcinoma, not adenoca rcinomas or other cancers. TESTING LAB LOCATION: [address] ??[address] COLLECTION SITE: Client: ??[facility] Location: [facility]FP (R) Specimen (Source) Anatomical Collection Method Collection Time Re ceived Time Location / / Volume Laterality Cytologic 07/08/2014 07/11/2014 2:26 material PM CAPONIZER (specimen) Fawad Roland MD LAB - OPTIME [...] unspecified documented in this encounter Care Teams Internet Marketing Intern Relationship Specialty Start Date End Date Fawad Roland MD PCP - General Family Practice 09/21/10 01/29/17 documented as of this encounter
--- OUTSIDE RECORDS SUMMARY | 2022-05-20 09:02 | XMS_ITS | Encounter Summary ---
:1975 Author Organization [place] Address [address] [place] [address] Care Team Providers Name Role Phone Esmer Roland MD Primary Care Provider Reason for Visit Reason Comments Allied Health Visit Here to sign MA form for T.L Casper Encounter Details Date Type Department Care Team Description 07/27/2015 Allied Health/Nurse [facility] All ied Health Visit Visit Clinic [place] (Here to sign MA form [address] ... [address] [place] [address] Social History Tobacco Use Types [...] LPN - 07/27/2015 8:42 AM CST Pt. Hous a TCasperLCasper MCasperACasper form signed. Copy to PtCasper [facility] Central Business Office Scanner to scan into chart A.S.AMeme Alegria the museum service scheduler Envelope in nursing station ANICAL HANDYMAN documented in this encounter Plan of Treatment Not on filedocumented as of this encounter Visit Diagnoses Diagnosis Contraceptive management - Primary Unspecified contraceptive management documented in this encounter Additional Health Concerns Assessment Noted Time PHQ-9 Depression Total Score: 12 06/17/2015 7:51 AM CS T documented as of this encounter Care Teams Breakfast Hostess Relationship Specialty Start Date End Date Esmer Roland MD PCP - General Family Practice 09/21/10 01/29/17 documented as of this encounter
--- OUTSIDE RECORDS SUMMARY | 2022-05-20 09:02 | XMS_ITS | Encounter Summary ---
:1975 Author Organization [place] Address [address] [facility] [place] [address] Care Team Providers Name Role Phone Esmer Roland MD Primary Care Provider [phone] Reason for Visit Reason Onset Date Comments Call To Schedule Appointment 02/03/2015 ultrasound Encounter Details Date Type Department Care Team Description 02/03/2015 Telephone [facility] Jeimy Christensen Call To Schedule Clinic Jamie Sellers DO Appointment [address] [facility] [place] [address] [address] (ultrasound) [place], [place] [address] [address] [place], [place] [phone] [address] (Work) [phone] Social History Tobacco Use Types Packs/Day Years [...] on filedocumented in this encounter Care Teams Paper Twister Tender Relationship Specialty Start Date End Date Esmer Roland MD PCP - General Family Practice 09/21/10 01/29/17 documented as of this encounter
--- OUTSIDE RECORDS SUMMARY | 2022-05-20 09:03 | XMS_ITS | Encounter Summary ---
:1975 Author Organization [place] Address [address] [facility] [place] [address] Care Team Providers Name Role Phone Esmer Roland MD Primary Care Provider [phone] Reason for Visit Reason Onset Date Comments Refill Request 02/18/2013 Escitalopram 20, Phe ntermine, Zolpidem Encounter Details Date Type Department Care Team Description 02/18/2013 Refill [facility] Esmer Roland Refill Request Clinic [place] MD [place] (Escitalopram 20, [address] [place] [address] Phentermine, Zolpidem) [place], [place] [id number] [phone] Social History Tobacco Use Types Packs/Day Years [...] she wanted the prescriptions to go to [facility]. RX's faxed to pharmacy. Mayela Hugh, RN Telephone Encounter - Esmer Roland MD - 02/19/2013 11:59 AM CDT Sent to [facility] and printed Telephone Encounter - Elva Grissom - 02/18/2013 3:38 PM CDT Escitalopram Last Fill Date: 01/25/13 Last Fill Quantity: 30 Last Office Visit: 12/25/12 Phentermine Last Fill Date: 01/06/13 Last Fill Quantity: 30 Last Office Visit: 12/25/12 Zolpidem Last Fill Date: 08/13/12 Last Fill Quantity: 90 Last Office Visit: 12/25/12 Elva Grissom, Pet Trainer [address] [place] [address] documented in this encounter Plan of Treatment Not on filedocumented as of this encounter Visit Diagnoses Diagnosis Major Depress Dis, Severe - Primary Major depressive disorder, single episod e, severe, without mention of psychotic behavior Obesity Obesity, unspecified Insomnia Insomnia, unspecified documented in this encounter Care Teams Product Support Technician Relationship Specialty Start Date End Date Esmer Roland MD PCP - General Family Practice 09/21/10 01/29/17 documented as of this encounter
--- OUTSIDE RECORDS SUMMARY | 2022-05-20 09:03 | XMS_ITS | Encounter Summary ---
:1975 Author Organization [place] Address [facility] [place] [address] Care Team Providers Name Role Phone Esmer Roland MD Primary Care Provider [phone] Reason for Visit Reason Onset Date Comments Nurse Advice Line 02/14/2014 Encounter Details Date Type Department Care Team Description 02/14/2014 Telephone [facility] Esmre Roland Nurse Advice Line Sara Byrd MD [address] [place] [address], [address] [place] [address] [address] [place] [address] [place], [place] [phone] (Wo rk) [address] [phone] Social History Tobacco Use Types Packs/Day Years [...] diseases documented in this encounter Care Teams Wash Driller Helper Relationship Specialty Start Date End Date Esmer Roland MD PCP - General Family Practice 09/21/10 01/29/17 documented as of this encounter
--- OUTSIDE RECORDS SUMMARY | 2022-05-20 09:03 | XMS_ITS | Encounter Summary ---
:1975 Author Organization [place] Address [facility] [place] [address] Care Team Providers Name Role Phone Esmer Roland MD Primary Care Provider [phone] Reason for Visit Reason Onset Date Comments Formulary Issue 07/23/2013 pa on lexapro Encounter Details Date Type Department Care Team Description 07/23/2013 Telephone [facility] Esmer Roland Formula ry Issue (pa on Clinic [place] MD Rochelle lexapro) [address] [place] [address] 5 [phone] [id number] [phone] Social History Tobacco Use Types Packs/Day Years [...] Pa for Lexapro (generic) was approved through [employer] [facility] from 06/23/13 - 07/23/14 Mechelle ERN TACK ASSEMBLY LINE WORKER documented in this encounter Plan of Treatment Not on filedocumented as of this encounter Visit Diagnoses Not on filedocumented in this encounter Care Teams Rice Drier Operator Relationship Specialty Start Date End Date Esmer Roland MD PCP - General Family Practice 09/21/10 01/29/17 documented as of this encounter
--- OUTSIDE RECORDS SUMMARY | 2022-05-20 09:03 | XMS_ITS | Encounter Summary ---
:1975 Author Organization [place] Address [facility] [place] [address] Care Team Providers Name Role Phone Fawad Roland MD Primary Care Provider [phone] Reason for Visit Reason Comments Colposcopy Encounter Details Date Type Department Care Team Description 12/25/[address] [facility] Fawad Roland l Pap smear, Clinic [place] [address] [place] [address] [facility] (ASC-H) (Primary Dx) [place] [address] [id number] Social History Tobacco Use Types Packs/Day Years [...] Last office visit: 12/02/2012 Chelsea Mendoza CMA ([facility]) documented in this encounter Plan of Treatment [...] Time Signature HCG Qual Urine Negative NEG [facility] LAB Specimen Anatomical Collection Method Collection Time Receive d Time (Source) Location / / Volume Laterality Urine specimen 12/25/2012 8:31 AM 013 8:33 (specimen) CDT AM CDT Fawad Roland MD LAB - URINE ORDERABLES Performing Organization Address City/State/ZIP Code Phon e Number [facility] [place], [place] [id number] [facility] [place], [place] [id number] LAB Surgical pathology exam (12/25/2012 8:00 AM CDT) Component Value Ref Test Analysis Performed At [facility] gist Range Method Time Signature Copath Report Patient Name: DARIANA VALDEZ MR#: [id number] Specimen #: [id number] Collected: 12/25/2012 Received: 12/25/2012 Reported: 12/28/2012 15:59 [...] and malign juni. COMMENT: Previous Pap. Smear ([id number]) was signed as atypical squam ous cells, [...] was performed. MGP/kd 12-28-12 TESTING LAB LOCATION: [facility] [address] [address] [place], [place] ??[address] COLLECTION SITE: Client: [facility] Location: FMFP (R) Specimen Anatomical Collection Method [...] (ASC-H) documented in this encounter Care Teams Canvas Worker Apprentice Relationship Specialty Start Date End Date Fawad Roland MD PCP - General Family Practice 09/21/10 01/29/17 documented as of this encounter
--- OUTSIDE RECORDS SUMMARY | 2022-05-20 09:03 | XMS_ITS | Encounter Summary ---
:1975 Author Organization [place] Address [facility] [place] [address] Care Team Providers Name Role Phone Esmer Roland MD Primary Care Provider [phone] Reason for Visit Reason Onset Date Comments Refill Request 01/05/2013 Phentermine Encounter Details Date Type Department Care Team Description 01/05/2013 Refill [facility] Esmer Roland Refill Request Clinic Sara Byrd MD (Phentermine) [address] [place] [address], [address] [place] [address] [address] [place] [address] [place], [place] [phone] (Wo rk) [address] [phone] Social History Tobacco Use Types Packs/Day Years [...] unspecified documented in this encounter Care Teams Rodent Exterminator Relationship Specialty Start Date End Date Esmer Roland MD PCP - General Family Practice 09/21/10 01/29/17 documented as of this encounter
--- OUTSIDE RECORDS SUMMARY | 2022-05-20 09:03 | XMS_ITS | Encounter Summary ---
:1975 Author Organization [place] Address [address] [place] [address] Care Team Providers Name Role Phone Esmer Roland MD Primary Care Provider [phone] Reason for Visit Reason Onset Date Comments Refill Request 07/16/2013 sola oconnell Encounter Details Date Type Department Care Team Description 07/16/2013 Refill [facility] Esmer Roland Refill Request (anish, [facility] MD sola Byrd) [address] [place] [address] REEMA MD 5 5068 [phone] Social History Tobacco Use Types Packs/Day Years [...] 3:42 PM CST Both Rx's faxed to [facility] ATION DEPARTMENT CHAIR Telephone Encounter - Deidre Alas - 07/16/2013 12:03 PM CST LAST FILL DATE: ambien=02/19/13, phentermine=04/14/13 QTY: zolpidem=90, phentermine=30 Camilo Hammonds [facility] ATION DEPARTMENT CHAIR documented in this encounter Plan of Treatment Not on filedocumented as of this encounter Visit Diagnoses Diagnosis Insomnia - Primary Insomnia, unspecified Obesity Obesity, unspecified documented in this encounter Care Teams Wire Chief Relationship Specialty Start Date End Date Esmer Roland MD PCP - General Family Practice 09/21/10 01/29/17 documented as of this encounter
--- OUTSIDE RECORDS SUMMARY | 2022-05-20 09:03 | XMS_ITS | Encounter Summary ---
:1975 Author Organization [place] Address [address] [place] [address] Care Team Providers Name Role Phone Fawad Roland MD Primary Care Provider [phone] Reason for Visit Reason Comments Physical Physical and Pap. Blood Draw Labs. Patient is fasting. Refill Request Encounter Details Date Type Department Care Team Description [facility] Routine general medical examination at a health care facility (Primary Dx); Clinic Sara Byrd MD ANXIETY STATE NOS; [place] [address] [address]omnia; Road, [address] [place] [address] Screening for malignant neoplasm of the cervix [place], [place] [phone] (Wo rk) [address] [phone] Social History Tobacco Use Types Packs/Day Years [...] accordingly All Histories reviewed and updated in [facility]. ROS: C: NEGATIVE for fever, chills, [...] Medical/Social/Surgical histories reviewed in [facility] andupdated as appropriate. Labs reviewed in [facility] OBJECTIVE: BP 122/78 Pulse 80 Temp(Src) [...] Preventive Guidelines Dietary Guidelines for Americans, 2010 [employer]'s MyPlate regular exercise healthy diet/nutrition reports that [...] fruits/vegetables and avoid sweets. Fawad Roland MD [facility] documented in this encounter Nursing Notes Melissa [...] 30 - 75 [facility] Deficiency ug/L [facility] screening Comment: Season, race, dietary intake, and treatm ent affect the concentration of 01-bqoxmbn-Kjqotlm D. Values may decrea se during winter [...] questions, pl ease contact the laboratory at [phone]. Specimen Anatomical Collection Method Collection Time Receive d Time (Source) Location / / Volume Laterality Blood specimen 10/01/2013 10:13 4 (specimen) AM CDT 10:14 AM CDT Fawad Roland MD LAB - BLOOD ORDERABLES Performing Organization Address City/State/ZIP Code Phon e Number [address] LABS CBC with platelets (10/01/2013 10:13 AM CDT) athologist Signature WBC 7.2 4.0 - 11.0 [facility] 10e9/L [facility] RBC Count 4.29 3.8 - 5.2 [facility] 10e12/L [facility] Hemoglobin 13.4 11.7 - [facility] 15.7 g/dL [facility] Hematocrit 39.4 35.0 - [facility] 47.0 % [facility] MCV 92 78 - 100 [facility] fl [facility] MCH 31.2 26.5 - [facility] 33.0 pg [facility] MCHC 34.0 31.5 - [facility] 36.5 g/dL [facility] RDW 12.5 10.0 - [facility] 15.0 % [facility] Platelet Count 300 150 - 450 [facility] 10e9/L [facility] Specimen Anatomical Collection Method Collection Time Receive d Time (Source) Location / / Volume Laterality Blood specimen 10/01/2013 10:13 4 (specimen) AM CDT 10:14 AM CDT Fawad Roland MD LAB - BLOOD ORDERABLES Performing Organization Address City/State/ZIP Code Phon e Number [facility] [place] [address] TSH with free T4 reflex (10/01/2013 10:13 AM CDT) athologist Signature TSH 1.76 0.4 - 5.0 [facility] mU/L [place] Specimen Anatomical Collection Method Collection Time Receive d Time (Source) Location / / Volume Laterality Blood specimen 10/01/2013 10:13 4 (specimen) AM CDT 10:14 AM CDT Fawad Roland MD LAB - BLOOD ORDERABLES Performing Organization Address City/[facility]/ZIP Code Phon e Number [facility] [address] [place] [address] [facility] [address] [place] [address] [phone] (ABNORMAL) Comprehensive metabolic panel (10/01/2013 [...] 3.6 (L) 3.9 - 5.1 [facility] g/dL [facility] Comment: Reference range changed on 02/08. Protein Total 6.4 (L) 6.8 - 8.8 g/dL [facility] Comment: As of 07, reference range reflects plasma specimen type. Alkaline Phosphatase 56 40 - 150 U/L [facility] ALT 20 0 - 50 U/L [facility] EA [place] AST 17 0 - 45 U/L [facility] EA [place] Specimen Anatomical Collection Method Collection Time Receive d Time (Source) Location / / Volume Laterality Blood specimen 10/01/2013 10:13 4 (specimen) AM CDT 10:14 AM CDT Fawad Roland MD LAB - BLOOD ORDERABLES Performing Organization Address City/State/ZIP Code Phon e Number [facility] [address] [place] [address] (ABNORMAL) Lipid panel reflex to direct LDL (10/01/2013 10:13 AM CDT) P athologist Signature Cholesterol 146 <200 mg/dL [facility] Comment: LDL Cholesterol is the primary guide to therapy. The NCEP recommends further evaluation of: patients with cholesterol greater than 200 mg/dL if additional risk facto rs are present, cholesterol greater than 240 mg/dL, triglycerides greater than 1 50 mg/dL, or HDL less than 40 mg/dL. Triglycerides 80 0 - 150 mg/dL [facility] HDL Cholesterol 41 (L) >50 mg/dL [facility] LDL Cholesterol Calculated 89 0 - 129 mg/dL [facility] Comment: LDL Cholesterol is the primary guide to therapy: LDL-cholesterol goal in high risk patients is <100 mg/dL and in very high risk patients is <70 mg/dL. VLDL-Cholesterol 16 0 - 30 mg/dL [facility] Cholesterol/HDL Ratio 3.6 0.0 - 5.0 [facility] Specimen Anatomical Collection Method Collection Time Receive d Time (Source) Location / / Volume Laterality Blood specimen 10/01/2013 10:13 4 (specimen) AM CDT 10:14 AM CDT Fawad Roland MD LAB - BLOOD ORDERABLES Performing Organization Address City/State/ZIP Code Phon e Number [facility] [address] [place] [address] PAP imaged thin layer, diagnostic (10/01/2013 12:00 AM CDT) Component Value Ref Test Analysis Performed At [facility] Range Method Time Signature PAP NIL COPATH Copath Report COPATH Patient Name: DARIANA VALDEZ MR#: [id number] Specimen #: [id number] Collected: 10/01/2013 Received: 10/04/2013 Reported: 10/06/2013 10:42 [...] [place] ??(ASCP) Processed and screened at [facility] CLINICAL HISTORY: Previous abnormal pap: ASC-H Date of Last Pap: 11/23/12, Papanicolaou Test Limitations: ??Cervical cytology is a scre ening test with limited sensitivity; regular screening is critical for cancer prevention; Pap tests are primarily effective for the diagnosis/prevention of squamous cell carcinoma, not adenoca rcinomas or other cancers. TESTING LAB LOCATION: [address] ??[phone] COLLECTION SITE: Client: ??[facility] Location: FMFP (R) Specimen (Source) Anatomical Collection [...] cervix documented in this encounter Care Teams Falafel Cart Cook Relationship Specialty Start Date End Date Fawad Roland MD PCP - General Family Practice 09/21/10 01/29/17 documented as of this encounter
--- OUTSIDE RECORDS SUMMARY | 2022-05-20 09:03 | XMS_ITS | Encounter Summary ---
:1975 Author Organization [place] Address [address] [facility] [place] [address] Care Team Providers Name Role Phone Esmer Roland MD Primary Care Provider [phone] Reason for Visit Reason Onset Date Comments Results 02/25/2013 Encounter Details Date Type Department Care Team Description 02/25/2013 Telephone [facility] Women[facility] Jeimy Christensen, Results [facility] [address] [place] [address] [facility] [address] [place] [address] [place] [address] [phone] Social History Tobacco Use Types Packs/Day Years [...] Dr. Jeimy Christensen DO Obstetrics and Gynecology [facility] [place] documented in this encounter Plan of Treatment Not on filedocumented as of this encounter Visit Diagnoses Diagnosis Vaginitis - Primary Vaginitis and vulvovaginitis, unspecifie d documented in this encounter Care Teams Race Engine Builder Relationship Specialty Start Date End Date Esmer Roland MD PCP - General Family Practice 09/21/10 01/29/17 documented as of this encounter
--- OUTSIDE RECORDS SUMMARY | 2022-05-20 09:03 | XMS_ITS | Encounter Summary ---
:1975 Author Organization [place] Address [address] [place] [address]. [place] [address] Care Team Providers Name Role Phone Esmer Roland MD Primary Care Provider [phone] Reason for Visit Reason Onset Date Comments Refill Request 01/06/2014 Phentermine 37.5mg Encounter Details Date Type Department Care Team Description 01/06/2014 Refill [facility] Esmer Roland Refill Request Clinic Sara Byrd MD (Phentermine 37.5mg) [address] [place] [address] [place], [place] [phone] (Wo rk) [address] [phone] Social History Tobacco Use Types Packs/Day Years [...] documented in this encounter Care Teams Automobile Body Worker Relationship Specialty Start Date End Date Esmer Roland MD PCP - General Family Practice 09/21/10 01/29/17 documented as of this encounter
--- OUTSIDE RECORDS SUMMARY | 2022-05-20 09:03 | XMS_ITS | Encounter Summary ---
:1975 Author Organization [place] Address [address] [facility] 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 Jeimy Christensen DO Obstetrics and Gynecology [facility] documented in this encounter Progress Notes Jeimy [...] Dr. Jeimy Christensen DO Obstetrics and Gynecology [facility] documented in this encounter Nursing Notes 02/18/2013 1:45 PM CDT >> MARY DIEGO [facility] Feb 18, 2013 3:40 PM 2% Xylocaine with epinephrine used for cervical block. Lot: [id number] Exp: 12/20 Mary Diego CHIEF METEOROLOGIST >> MARY DIEGO [facility] Feb 18, 2013 2:04 PM Patient presents [...] completed using cuff size: large Mary Diego CHIEF METEOROLOGIST documented in this encounter Plan of Treatment [...] Component Value Ref Test Analysis Performed At [employer] Method Time Signature Copath Report Patient Name: DARIANA VALDEZ MR#: [id number] Specimen #: [id number] Collected: 02/18/2013 Received: 02/19/2013 Reported: 02/22/2013 13:15 [...] is identified. KARLEE/liseth 02-22-13 TESTING LAB LOCATION: [address] ??[phone] COLLECTION SITE: Client: [facility] Location: RIOB (R) Specimen Anatomical Collection Method Collection Time Receive d Time (Source) Location / / Volume Laterality 02/18/2013 3:00 PM 3 7:12 CDT AM CDT Jiemy Christensen DO [facility] Performing Organization Address City/State/ZIP [...] cervix documented in this encounter Care Teams Information Security Associate Relationship Specialty Start Date End Date Fawad Roland MD PCP - General Family Practice 09/21/10 01/29/17 documented as of this encounter
--- OUTSIDE RECORDS SUMMARY | 2022-05-20 09:03 | XMS_ITS | Encounter Summary ---
:1975 Author Organization [place] Address [address] [facility] [place] [address] Care Team Providers Name Role Phone Esmer Roland MD Primary Care Provider [phone] Reason for Visit Reason Comments Pre-Op Exam Encounter Details Date Type Department Care Team Description 10/29/2013 Office Visit [facility] Kenneth Couch Pre gen eral Clinic Sara Booth MD physical exam [address] [address] [address] [facility] (Primary Dx) Road, [address] [place] [address] [place], [place] [phone] (Wo rk) [address] [phone] Social History Tobacco Use Types Packs/Day Years [...] Couch MD - 10/29/2013 8:01 AM CDT [address], [address] [facility] [address] Dept: [phone] PRE-OP EVALUATION: Today's date: 10/29/2013 Dariana Osman (: 1975) presents for pre-operative evaluation assessment as requested by Dr. [place]. She requires evaluation and anesthesia risk assessment prior to undergoing surgery/procedure Breast reduction Date of Surgery/ Procedure: 11/03/13 Time of Surgery/ Procedure: 1000 Hospital/Surgical Facility: [facility] Fax number for surgical facility: [phone] Primary Physician: Esmre Roland Type of Anesthesia Anticipated: General Patient [...] (ASC-H) 11/23/2012 Priority: Medium 11/23/12 ASC-H. 12/25/12 [place]= BRIGID 2. Referred to Ob~Instructional Technology Coordinator, Dr. Christensen 02/18/13 LEEP= Negative, R/P pap [...] evaluation report is provided to requesting physician. [place] Preop Guidelines 2013 documented in this encounter Plan of Treatment Not on filedocumented as of this encounter Visit Diagnoses Diagnosis Preop general physical exam - Primary Other specified pre-operative examinatio n documented in this encounter Care Teams Manager Etl Relationship Specialty Start Date End Date Esmer Roland MD PCP - General Family Practice 09/21/10 01/29/17 documented as of this encounter
--- OUTSIDE RECORDS SUMMARY | 2022-05-20 09:03 | XMS_ITS | Encounter Summary ---
:1975 Author Organization [place] Address [address] [facility] 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.] notified and phone number for OBGYN in [place] given. Mayela Reese RN Telephone Encounter - Esmer Roland MD - 12/28/2012 4:15 PM CDT Pt with high grade changes on colposcopy, pt needs referral and f/u with [facility]. Please call pt documented in this encounter Plan of Treatment Scheduled Referrals Name Type Priority Associated Diagnoses Order S chedule PARTITION SETTER REFERRAL Referral Routine Papanicolaou smear of vag enrique Ordered: 12/28/2012 with high grade squamous intraepithelial lesion (HGSI L) documented as of this encounter Visit Diagnoses Diagnosis Papanicolaou smear of vagina with high g rade squamous intraepithelial lesion (HGSIL) - Primary documented in this encounter Care Teams Sharepoint Specialist Relationship Specialty Start Date End Date Esmer Roland MD PCP - General Family Practice 09/21/10 01/29/17 documented as of this encounter
--- OUTSIDE RECORDS SUMMARY | 2022-05-20 09:03 | XMS_ITS | Encounter Summary ---
:1975 Author Organization [place] Address [address] [facility] [place] [address] Care Team Providers Name Role Phone Fawad Roland MD Primary Care Provider [phone] Reason for Visit Reason Comments Physical Physical and Pap. Recheck Medication Patient has questions about the dosage of the phetermine. Refill Request Encounter Details Date Type Department Care Team Description [facility] Rout[facility] general medical examination at a health care facility (Primary Dx); Clinic Sara Byrd MD Obesity; [place] [address] [address] Insomnia; [address], [address] [place] [address] Major Depress Dis, Severe [place], [place] [phone] (Wo rk) [address] [phone] Social History Tobacco Use Types Packs/Day Years [...] recommended All Histories reviewed and updated in [facility]. ROS: C: NEGATIVE for fever, chills, [...] list, Allergies, and Medical/Social/Surgical histories reviewed in [facility] andupdated as appropriate. Labs reviewed in [facility] OBJECTIVE: BP 126/70 Pulse 70 Temp [...] lb 8 oz(92.307 kg). Fawad Roland MD [facility] documented in this encounter Nursing Notes 11/23/2012 [...] examination procedur e are in at a [facility] care the results facility section. WET PREPARATION Routine 11/23/2012 12:22 Routine general Resul ts for this PM CDT medical examination procedur e are in at a [facility] the results facility section. VITAMIN D DEFICIENCY Routine 11/23/2012 12:15 Routine general Results for this SCREENING PM CDT medical examination procedur e are in at a [facility] care the results facility section. TSH WITH FREE T4 Routine 11/23/2012 12:15 Routine general Resu lts for this REFLEX PM CDT medical examination procedur e are in at a [facility] care the results facility section. LIPID REFLEX TO DIRECT Routine 11/23/2012 12:15 Routine genera l Results for this LDL PANEL PM CDT medical examination procedur e are in at a [facility] care the results facility section. COMPREHENSIVE Routine 11/23/2012 12:15 Routine general Results for this METABOLIC PANEL PM CDT medical examination proce dure are in at a [facility] care the results facility section. CBC WITH PLATELETS Routine 11/23/2012 12:15 Routine general Re sults for this PM CDT medical examination procedur e are in at a [facility] care the results facility section. PAP IMAGED THIN LAYER Routine 11/23/2012 12:00 Routine general Results for this SCREEN AM CDT medical examination procedur e are in at a [facility] care the results facility section. documented in this encounter Results (ABNORMAL) Urine Microscopic (11/23/2012 12:24 PM CDT) Analysis Performed At Patho logist Time Signature WBC Urine 2-5 (A) 0 - 2 /HPF [facility] RBC Urine O - 2 0 - 2 /HPF [facility] Squamous Few FEW /LPF [place] Epithelial /LPF [facility] LAB Specimen Anatomical Collection Method Collection Time Receive d Time (Source) Location / / Volume Laterality 11/23/2012 12:24 11/23/2012 PM CDT 12:26 PM CDT Fawad Roland MD LAB - URINE ORDERABLES Performing Organization Address City/[facility]/ZIP Code Phon e Number [facility] [place], [place] [phone] [address] [phone] LAB (ABNORMAL) UA reflex to Microscopic and Culture (11/23/2012 12:24 PM CDT) [employer] Method Time Signature Color Urine Yellow [facility] Appearance Urine Clear [facility] Glucose Urine Negative NEG mg/dL [facility] Bilirubin Urine Negative NEG [facility] Ketones Urine Negative NEG mg/dL [facility] Specific Reading 1.015 1.003 - [place] Urine 1.035 [facility] Blood Urine Trace (A) NEG [facility] pH Urine 7.5 (H) 5.0 - 7.0 [place] pH [facility] Protein Albumin Negative NEG mg/dL [place] Urine [facility] Urobilinogen 0.2 0.2 - 1.0 [place] Urine EU/dL [facility] Nitrite Urine Negative NEG [facility] Leukocyte Negative NEG [place] Esterase Urine [facility] Source Midstream [place] Urine [facility] Specimen Anatomical Collection Method Collection Time Receive d Time (Source) Location / / Volume Laterality Urine specimen 11/23/2012 12:24 3 (specimen) PM CDT 12:26 PM CDT Fawad Roland MD LAB - URINE ORDERABLES Performing Organization Address City/[facility]/ZIP Code Phon e Number [facility] [place] [address] [id number] [place], [place] [id number] LAB Chlamydia trachomatis PCR (11/23/2012 12:23 PM CDT) Component Value Ref Test Analysis Performed At [facility] Method Time Signature Specimen [place] Description [facility] Chlamydia Negative for C. trachomatis rRNA by solar sales ambassador mediated amplification. [facility] Trachomatis A negative result [...] MICRO GENERAL ORDERABL ES Performing Organization Address City/[facility] Code Phon e Number [address] [place] [address] LAB [facility] MICROBIOLOGY Neisseria gonorrhoeae PCR (11/23/2012 12:23 PM CDT) Component Value Ref Test Analysis Performed At [facility] Method [place] Signature Specimen [place] Descrip [facility] N Gonorrhea Negative for N. gonorrhoeae rRNA by solar sales ambassador mediated amplification. [facility] PCR A negative result [...] MICRO GENERAL ORDERABL ES Performing Organization Address City/[facility] Phon e Number [address] [place] [address] LAB [facility] MICROBIOLOGY Wet prep (11/23/2012 12:22 PM CDT) Component Value Ref Test Analysis Performed At [facility] Method Time Signature Specimen [place] Description [facility] LAB Wet Prep No Trichomonas seen [place] No clue cells seen [place] No yeast seen [facility] Micro Report FINAL [place] Status 11/23/2012 [facility] LAB Specimen Anatomical Collection Method Collection Time Receive d Time (Source) Location / / Volume Laterality 11/23/2012 12:22 11/23/2012 PM CDT 12:24 PM CDT Fawad Roland MD LAB - MICRO GENERAL ORDERABL ES Performing Organization Address City/[facility]/ZIP Code Phon e Number [facility] [place] [address] [facility] [place] [address] LAB Vitamin D Deficiency (11/23/2012 12:15 PM CDT) athologist Signature Vitamin D 52 30 - 75 [facility] Deficiency ug/L [place] [facility] screening Comment: Season, race, dietary intake, and treatm ent affect the concentration of 69-dzghyjd-Xgxdmpv D. Values may decrea se during winter [...] questions, pl ease contact the laboratory at [phone]. Specimen Anatomical Collection Method Collection Time Receive d Time (Source) Location / / Volume Laterality Blood specimen 11/23/2012 12:15 3 (specimen) PM CDT 12:17 PM CDT Fawad Roland MD LAB - BLOOD ORDERABLES Performing Organization Address City/State/ZIP Code Phon e Number [address] [address] [facility] CBC with platelets (11/23/2012 12:15 PM CDT) athologist Signature WBC 9.0 4.0 - 11.0 [facility] 10e9/L [facility] RBC Count 4.39 3.8 - 5.2 [place] 10e12/L [facility] Hemoglobin 13.7 11.7 - [facility] 15.7 g/dL [facility] Hematocrit 39.7 35.0 - [facility] 47.0 % [facility] MCV 90 78 - 100 [facility] MCH 31.2 26.5 - [facility] 33.0 pg [facility] MCHC 34.5 31.5 - [facility] 36.5 g/dL [facility] RDW 12.5 10.0 - [facility] 15.0 % [facility] Platelet Count 314 150 - 450 [place] 10e9/L [facility] Specimen Anatomical Collection Method Collection Time Receive d Time (Source) Location / / Volume Laterality Blood specimen 11/23/2012 12:15 3 (specimen) PM CDT 12:17 PM CDT Fawad Roland MD LAB - BLOOD ORDERABLES Performing Organization Address City/[facility] Code Phon e Number [facility] [place], [place] [phone] [facility] [place], [place] [phone] LAB TSH with free T4 reflex (11/23/2012 12:15 PM CDT) athologist Signature TSH 2.38 0.4 - 5.0 [place] [facility] LAB Specimen Anatomical Collection Method Collection Time Receive d Time (Source) Location / / Volume Laterality Blood specimen 11/23/2012 12:15 3 (specimen) PM CDT 12:17 PM CDT Fawad Roland MD LAB - BLOOD ORDERABLES Performing Organization Address City/[facility] Code Phon e Number [facility] [address] [address] [facility] [address] [place] [id number] (ABNORMAL) Comprehensive metabolic panel (11/23/2012 12:15 PM CDT) P athologist Signature Sodium 139 133 - 144 [place] mmol/L [facility] Potassium 4.2 3.4 - 5.3 [place] mmol/L [facility] Chloride 101 94 - 109 [place] mmol/L [facility] Carbon Dioxide 26 20 - 32 [place] mmol/L [facility] Anion Gap 12 6 - 17 [place] mmol/L [facility] Glucose 87 60 - 99 [place] mg/dL [facility] Urea Nitrogen 6 5 - 24 [place] mg/dL [facility] Creatinine 0.79 0.52 - [place] 1.04 mg/dL [facility] GFR Estimate 83 >60 [place] mL/min/1.7 [facility] m2 LAB GFR Estimate If >90 >60 [place] Black mL/min/1.7 [facility] m2 LAB Calcium 9.2 8.5 - 10.4 [place] mg/dL [facility] Bilirubin Total 0.2 0.2 - 1.3 [place] mg/dL [facility] Albumin 3.8 (L) 3.9 - 5.1 [place] g/dL [facility] Comment: Reference range changed on 02/08. Protein Total 7.0 6.8 - 8.8 g/dL [facility] Comment: As of 07, reference range reflects plasma specimen type. Alkaline Phosphatase 64 40 - 150 U/L [facility] ALT 28 0 - 50 U/L [facility] LAB AST 25 0 - 45 U/L [facility] LAB Specimen Anatomical Collection Method Collection Time Receive d Time (Source) Location / / Volume Laterality Blood specimen 11/23/2012 12:15 3 (specimen) PM CDT 12:17 PM CDT Fawad Roland MD LAB - BLOOD ORDERABLES Performing Organization Address City/State/ZIP Code Phon e Number [facility] [address] [place] [address] [phone] [facility] [address] [place] [address] (ABNORMAL) Lipid panel reflex to direct LDL (11/23/2012 12:15 PM CDT) athologist Signature Cholesterol 154 0 - 200 [facility] mg/dL CLINIC LAB Comment: LDL Cholesterol is the primary guide to therapy. The NCEP recommends further evaluation of: patients with cholesterol greater than 200 mg/dL if additional risk facto rs are present, cholesterol greater than 240 mg/dL, triglycerides greater than 1 50 mg/dL, or HDL less than 40 mg/dL. Triglycerides 200 (H) 0 - 150 mg/dL [facility] HDL Cholesterol 50 50 - 110 mg/dL [facility] LDL Cholesterol Calculated 64 0 - 129 mg/dL [facility] Comment: LDL Cholesterol is the primary guide to therapy: LDL-cholesterol goal in high risk patients is <100 mg/dL and in very high risk patients is <70 mg/dL. VLDL-Cholesterol 40 (H) 0 - 30 mg/dL [facility] Cholesterol/HDL Ratio 3.1 0.0 - 5.0 [facility] Specimen Anatomical Collection Method Collection Time Receive d Time (Source) Location / / Volume Laterality Blood specimen 11/23/2012 12:15 3 (specimen) PM CDT 12:17 PM CDT Fawad Roland MD LAB - BLOOD ORDERABLES Performing Organization Address City/State/ZIP Code Phon e Number [facility] [address] [place] [address] [phone] [facility] [address] [place] [address] (ABNORMAL) PAP imaged thin layer screen (11/23/2012 12:00 AM CDT) Component Value Ref Test Analysis Performed At [employer] Range Method Time Signature PAP ASC-H (A) COPATH Copath Report COPATH Patient Name: DARIANA VALDEZ MR#: [id number] Specimen #: [id number] Collected: 11/23/2012 Received: 11/24/2012 Reported: 11/26/2012 09:24 [...] Litzy Mejia M.D. Processed and screened at [facility] [place] [facility] CLINICAL HISTORY: LMP: 2012 Previous normal pap Date of Last Pap: 11/09/2010, Papanicolaou Test Limitations: ??Cervical cytology is a scre ening test with limited sensitivity; regular screening is critical for cancer prevention; Pap tests are primarily effective for the diagnosis/prevention of squamous cell carcinoma, not adenoca rcinomas or other cancers. TESTING LAB LOCATION: [address] ??[phone] COLLECTION SITE: Client: ??[facility] Location: [facility] (R) Specimen (Source) Anatomical Collection Method [...] behavior documented in this encounter Care Teams Cosmetics Machine Operator Relationship Specialty Start Date End Date Fawad Roland MD PCP - General Family Practice 09/21/10 01/29/17 documented as of this encounter
--- OUTSIDE RECORDS SUMMARY | 2022-05-20 09:03 | XMS_ITS | Encounter Summary ---
:1975 Author Organization [place] Address [address] [place] [address] Care Team Providers Name Role Phone Esmer Roland MD Primary Care Provider [phone] Reason for Visit Reason Comments Recheck Medication Phentermine Encounter Details Date Type Department Care Team Description 01/06/2014 Allied Health/Nurse Health [place] Rec heck Medication Visit Clinic [place] (Phentermine) [facility], [address] [place] [address] Social History Tobacco Use Types [...] documented in this encounter Progress Notes Mayela Reees RN - 01/06/2014 10:15 AM CDT Patient here for weight/bp/pulse check for med check on Phentermine. Mayela Reese RN documented in this encounter Plan of Treatment Not on filedocumented as of this encounter Visit Diagnoses Diagnosis Obesity - Primary Obesity, unspecified documented in this encounter Care Teams Syrup Maker Cook Relationship Specialty Start Date End Date Esmer Roland MD PCP - General Family Practice 09/21/10 01/29/17 documented as of this encounter
--- OUTSIDE RECORDS SUMMARY | 2022-05-20 09:03 | XMS_ITS | Encounter Summary ---
:1975 Author Organization [place] Address [address] [place] [address] Care Team Providers Name Role Phone Esmer Roland MD Primary Care Provider [phone] Reason for Visit Reason Comments Hypertension Blood pressure check Encounter Details Date Type Department Care Team Description 11/05/2012 [facility] Hypertensi on (Blood Health/Nurse Visit Clinic [place] pressure check) [facility], [address] [place] [address] Social History Tobacco Use Types [...] Body Mass Index 31.25 08/07/2012 8:[address] documented in this encounter Progress Notes Mayela Reese - 11/05/2012 1:14 PM CDT Patient here to check weight, bp and pulse for continuing medication Phentermine. Mayela Reese RN documented in this encounter Plan of Treatment Not on filedocumented as of this encounter Visit Diagnoses Diagnosis Obesity - Primary Obesity, unspecified documented in this encounter Care Teams Aviation Manager Relationship Specialty Start Date End Date Esmer Roland MD PCP - General Family Practice 09/21/10 01/29/17 documented as of this encounter
--- OUTSIDE RECORDS SUMMARY | 2022-05-20 09:03 | XMS_ITS | Encounter Summary ---
:1975 Author Organization [place] Address [address] [place] [address] Care Team Providers Name Role Phone Esmer Roland MD Primary Care Provider [phone] Reason for Visit Reason Comments RECHECK Wt,bp, pulse Encounter Details Date Type Department Care Team Description 01/28/2013 Allied Health/Nurse [facility] REC HECK (Wt,bp, pulse) Visit Clinic [address], [address] [place] [address] Social History Tobacco Use Types [...] unspecified documented in this encounter Care Teams Computer Training Specialist Relationship Specialty Start Date End Date Esmer Roland MD PCP - General Family Practice 09/21/10 01/29/17 documented as of this encounter
--- OUTSIDE RECORDS SUMMARY | 2022-05-20 09:03 | XMS_ITS | Encounter Summary ---
:1975 Author Organization [place] Address [address] [place] [address] Care Team Providers Name Role Phone Esmer Roland MD Primary Care Provider [phone] Reason for Referral Consultation - Closed Specialty Diagnoses / Procedures Referred By Contact Refer red To Contact Diagnoses Large breasts Upper back pain Esmer Roland [facility] [address] [phone] [place] [address] [place] [address] Phone: [phone] Referral ID Status Reason Start Date Expiration Date Visits Requ ested Visits Authorized [id number] Closed 07/23/2013 01/19/2014 1 1 RAL AISLE CASHIER Reason for Visit Reason Comments Consult discuss surgery options Encounter Details Date Type Department Care Team Description 07/23/2013 Office Visit [facility] Esmer Roland b ack pain (Primary Dx); Clinic Sara Byrd MD Large breasts; [id number] [place], [place] [address] [address] MICHELLE MONCADA Abnormal uterine bleeding; Road, [address] [place] [address] Insomnia; [place] [phone] (Wo rk) [place] [address] [phone] Social History Tobacco Use Types Packs/Day Years [...] Comments Blood Pressure 114/80 07/23/2013 9:09 AM CENTRAL AISLE CASHIER Pulse 89 07/23/2013 9:09 AM CENTRAL AISLE CASHIER Temperature 37.2 ??C (99 ??F) 07/23/2013 9:09 AM CENTRAL AISLE CASHIER Respiratory Rate 16 07/23/2013 9:09 AM CENTRAL AISLE CASHIER Oxygen Saturation 96% 07/23/2013 9:09 AM CENTRAL AISLE CASHIER Inhaled Oxygen Concentration - - Weight 92.1 kg (203 lb) 07/23/2013 9:09 AM CENTRAL AISLE CASHIER Height - - Body Mass Index 32.03 04/02/2013 9:08 AM CDT documented in this encounter Progress Notes Esmer Roland MD - 07/23/2013 9:05 AM CST SUBJECTIVE: Dariana Osman is a 37 year old female who presents to clinic today for the following health issues: DISCUSS SURGERY OPTIONS Taking aleve for mid and upper back pain, seeing chiropractor, and 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 Has large breasts, and 40 DDD and [...] list, Allergies, and Medical/Social/Surgical histories reviewed in [facility] andupdated as appropriate. ROS: C: NEGATIVE [...] 2 weeks recheck phentermine Esmer Roland MD [facility] RAL AISLE CASHIER documented in this encounter Nursing Notes 07/23/2013 9:00 AM CST >> RIC PARR Fri Jul 23, 2013 9:13 AM Patient presents with: Consult - discuss surgery options Initial BP 114/80 Pulse 89 Temp 99 ??F (37.2 ??C) (Oral) Resp 16 Wt 203 lb (92.08 kg) [id number]% Estimated Body mass index is 32.05 kg/(m^2) [...] unspecified documented in this encounter Care Teams Network Liaison Relationship Specialty Start Date End Date Esmer Roland MD PCP - General Family Practice 09/21/10 01/29/17 documented as of this encounter
--- OUTSIDE RECORDS SUMMARY | 2022-05-20 09:03 | XMS_ITS | Encounter Summary ---
:1975 Author Organization [place] Address [address] [facility] [place] [address] Care Team Providers Name Role Phone Esmer Roland MD Primary Care Provider [phone] Yony Garcia PA-C Primary Care Provider [phone] Yony Garcia PA-C Unavailable [phone] Erik Rivas Primary Care Provider Yony Garcia PA-C Unavailable [phone] Reason for Visit Reason Onset Date Comments Refill Request 09/28/2013 Phentermine 37.5mg Encounter Details Date Type Department Care Team Description 09/28/2013 Refill [facility] Esmer Roland Refill Request Clinic Sara Byrd MD (Phentermine 37.5mg) [address] [place] [address] [place], [place] [phone] (Wo rk) [address] [phone] Social History Tobacco Use Types Packs/Day Years [...] Fill Quantity: 30 Last Office Visit: 07/23/13 [facility] Breakfast [facility] [email or web address] Thank you! documented in this encounter Plan of Treatment Not on filedocumented as of this encounter Visit Diagnoses Diagnosis Obesity Obesity, unspecified documented in this encounter Care Teams Volunteer Manager Relationship Specialty Start Date End Date Esmer Roland, PCP - General Family Practice 09/21/10 01/29/17 Yony Garcia, PCP - General Physician Profiler - 01/30/17 07/23/18 PA-C Medical Yony Garcia, PCP - Assigned PCP 09/01/16 08/11/18 PA-C [id number] [address] [place] [id number] Erik Rivas PCP - General Family Practice 07/24/[address] [address] Yony Garcia, Assigned PCP 09/01/16 PA-C [address] [address] [place] [phone] documented as of this encounter
--- OUTSIDE RECORDS SUMMARY | 2022-05-20 09:03 | XMS_ITS | Encounter Summary ---
:1975 Author Organization [place] Address [address] [place] [address]. [place] [address] Care Team Providers Name Role Phone Esmer Roland MD Primary Care Provider [phone] Reason for Visit Reason Onset Date Comments Call To Schedule Appointment 09/22/2013 Pap due 08/08 014 Encounter Details Date Type Department Care Team Description 09/22/2013 Telephone [facility] Esmer Roland Call To Schedule Clinic Sara Byrd MD Appointment (Pap due [facility], [address] [place] [address] 08/2013) [address] [place] [address] [place], [place] [phone] (Wo rk) [address] [phone] Social History Tobacco Use Types Packs/Day Years [...] and 02/201409/22/2013 No pap done. Will send [employer] message. Will post pone x 3 weeks. documented in this encounter Plan of Treatment Not on filedocumented as of this encounter Visit Diagnoses Diagnosis Abnormal Pap smear, can't excl hi gd sq intraepithelial lesion (ASC-H) - Primary Papanicolaou smear of cervix with atypic al squamous cells cannot exclude high grade squamous intraepithelial lesion (ASC-H) documented in this encounter Care Teams Internal Affairs Investigator Relationship Specialty Start Date End Date Esmer Roland MD PCP - General Family Practice 09/21/10 01/29/17 documented as of this encounter
--- OUTSIDE RECORDS SUMMARY | 2022-05-20 09:03 | XMS_ITS | Encounter Summary ---
:1975 Author Organization [place] Address [facility] [place] [address] Care Team Providers Name Role Phone Esmer oRland MD Primary Care Provider Reason for Visit Reason Onset Date Comments Refill Request 12/29/2012 Encounter Details Date Type Department Care Team Description 12/29/2012 Refill [facility] Esmer Roland, Refill Request Sara BANERJEE [address] [place] [address], [address] [place] [address] [address] [place] [address] [place] [address] [phone] Social History Tobacco Use Types Packs/Day Years [...] filedocumented in this encounter Care Teams Aquatic Laborer Relationship Specialty Start Date End Date Esmer Roland MD PCP - General Family Practice 09/21/10 01/29/17 documented as of this encounter
--- OUTSIDE RECORDS SUMMARY | 2022-05-20 09:03 | XMS_ITS | Encounter Summary ---
:1975 Author Organization [place] Address [address] [facility] [place] [address] Care Team Providers Name Role Phone Esmer Roland MD Primary Care Provider [phone] Reason for Referral NIRAJ Physical Therapy - Closed Specialty Diagnoses / Procedures Referred By Contact Refer red To Contact Diagnoses Pfs (patellofemoral syndrome), unspecified laterality Pes anserine bursitis Kenneth Couch, [id number] [address] ADMIN OFFICE [place] [address] Phone: [phone] Referral ID Status Reason Start Date Expiration Date Visits Requ ested Visits Authorized [id number] Closed 02/21/2014 08/20/2014 1 1 Reason for Visit Reason Comments Knee Pain Encounter Details Date Type Department Care Team Description 02/21[facility]2014 [facility] Pes anser ine bursitis (Primary Dx); Clinic Sara Booth MD PFS (patellofemoral syndrome), unspecifi ed laterality [place] [address] [facility], [address] [place] [address] [place] [phone] (Wo rk) [address] [phone] Social History Tobacco Use Types Packs/Day Years [...] by: rest/inactivity, ice and NSAID - ibuprofen 4248-7541/day started fish oil by chiropractor recommendation ?? [...] laterality documented in this encounter Care Teams Or Nurse Manager Relationship Specialty Start Date End Date Esmer Roland MD PCP - General Family Practice 09/21/10 01/29/17 documented as of this encounter
--- OUTSIDE RECORDS SUMMARY | 2022-05-20 09:03 | XMS_ITS | Encounter Summary ---
:1975 Author Organization [place] Address [address] [facility] [place] [address] Care Team Providers Name Role Phone Esmer Roland MD Primary Care Provider [phone] Reason for Visit Reason Comments Refill Request (6) months of refills. Recheck Medication Depression Increase the dose on the DIPIKA APRO. Encounter Details Date Type Department Care Team Description 04/02/2013 Office Visit [facility] Esmer Roland Insomni a (Primary Dx); Clinic Sara Byrd MD Obesity; [place] [address] Need for prophylactic vaccination and in oculation against influenza; Road, [address] [place], [place] ANXIETY STATE NOS; [place] [address] Major Depress Dis, Severe [address] Social History [...] Panic / Manic symptoms: Yes- anxiety PHQ-9 Danish PHQ-9 Any Language ?? Amount of exercise [...] Plan: See Patient Instructions Esmer Roland MD [facility] documented in this encounter Nursing Notes [...] behavior documented in this encounter Care Teams Range Rider Relationship Specialty Start Date End Date Esmer Roland MD PCP - General Family Practice 09/21/10 01/29/17 documented as of this encounter
--- OUTSIDE RECORDS SUMMARY | 2022-05-20 09:03 | XMS_ITS | Encounter Summary ---
:1975 Author Organization [place] Address [address] [place] [address]. [place] [address] Care Team Providers Name Role Phone Esmer Roland MD Primary Care Provider [phone] Reason for Visit Reason Onset Date Comments Refill Request 12/29/2012 LEXAPRO 20MG Encounter Details Date Type Department Care Team Description 12/29/2012 Refill [facility] Esmer Roland Refill Request (LEXAPRO [facility] [place] MD [place] 20MG) [address] [facility], [address] [place] [address] [address] [place] [address] [place], [place] [phone] (Wo rk) [address] [phone] Social History Tobacco Use Types Packs/Day Years [...] on file at pharmacy. Fariha Olsen [facility]bara [facility] Pharmacist Telephone Encounter - Shankar Durham - 12/29/2012 9:10 AM CDT LEXAPRO 20MG Last Fill Date: 11-23-2012 Last Fill Quantity: 30 Last Office Visit: 12-25-2012 Date of Last PHQ-9 score: 08-07-2012 Last PHQ-9 score on record= 9 RONNY RICKETTS [id number]) [address] [place] [address] documented in this encounter Plan of Treatment Not on filedocumented as of this encounter Visit Diagnoses Diagnosis Major Depress Dis, Severe - Primary Major depressive disorder, single episod e, severe, without mention of psychotic behavior documented in this encounter Care Teams Machine Joint Cutter Relationship Specialty Start Date End Date Esmer Roland MD PCP - General Family Practice 09/21/10 01/29/17 documented as of this encounter
--- OUTSIDE RECORDS SUMMARY | 2022-05-20 09:03 | XMS_ITS | Encounter Summary ---
:1975 Author Organization [place] Address [address] [place] [address] Care Team Providers Name Role Phone Esmer Roland MD Primary Care Provider [phone] Reason for Visit Reason Onset Date Comments Prior Authorization 01/05/2014 Escitalopram needs P A Encounter Details Date Type Department Care Team Description 01/05/2014 Telephone [facility] Esmer Roland Prior A uthorization Clinic Sara Byrd MD ([place]) [address] [place] [address] [facility], [address] [place] [address] [place], [place] [phone] (Wo rk) [address] [phone] Social History Tobacco Use Types Packs/Day Years [...] to begin the process Her ID is [id number] Thank you! documented in this encounter Plan of Treatment Not on filedocumented as of this encounter Visit Diagnoses Not on filedocumented in this encounter Care Teams Residence Manager Relationship Specialty Start Date End Date Esmer Roland MD PCP - General Family Practice 09/21/10 01/29/17 documented as of this encounter
--- OUTSIDE RECORDS SUMMARY | 2022-05-20 09:04 | XMS_ITS | Encounter Summary ---
:1975 Author Organization [place] Address [address] [place] [address]. [place] [address] Care Team Providers Name Role Phone Esmer Roland MD Primary Care Provider [phone] Reason for Visit Reason Onset Date Comments Refill Request 05/06/2011 Tori Esteban Encounter Details Date Type Department Care Team Description 05/06/2011 Refill [facility] Esmer Roland Refill Request (Carlito, Clinic [place] By[place] MD Ativan) [address] [facility], [address] [place] [address] [address] [place] [address] [place], [place] [phone] (Wo rk) [address] [phone] Social History Tobacco Use Types Packs/Day Years Used Date Smoking Tobacco: Former Smokeless Tobacco: Never Comments: Very Occasional Alcohol Use Standard Drinks/Week Comments Yes 0 (1 standard drink = 0.6 oz pure alcoho l) 1 qo weekend Sex Assigned at Date Recorded Not on file documented as of this encounter Miscellaneous Notes Telephone Encounter - Esmer Roland MD - 05/06/2011 2:45 PM RAILROAD CAR TRUCK 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 Thank you, Mayela Reese RN ROAD CAR TRUCK BUILDER documented in this encounter Plan of Treatment Not on filedocumented as of this encounter Visit Diagnoses Diagnosis ANXIETY STATE NOS Anxiety state, unspecified Insomnia Insomnia, unspecified documented in this encounter Care Teams Studio Manager Relationship Specialty Start Date End Date Esmer Roland MD PCP - General Family Practice 09/21/10 01/29/17 documented as of this encounter
--- OUTSIDE RECORDS SUMMARY | 2022-05-20 09:04 | XMS_ITS | Encounter Summary ---
:1975 Author Organization [place] Address [address] [facility] [place] [address] Care Team Providers Name Role Phone Esmer Roland MD Primary Care Provider [phone] Reason for Visit Reason Comments Depression med check/follow up, increas ed weight Pre Visit Planning - Done aet mychart 08/06/12 Encounter Details Date Type Department Care Team Description 08/07/2012 Office Visit [facility] Esmer Roland ANXIETY STATE NOS (Primary Dx); Clinic Sara Byrd MD Insomnia; [place] [address] Abnormal uterine bleeding; Road, [address] [place] [address] Mild major depression (H); [place], [place] [phone] (Wo rk) Vitamin d deficiency [address] [phone] Social History Tobacco Use Types Packs/Day Years [...] Comments Blood Pressure 112/62 08/07/2012 8:23 AM SVP PROGRAMMATIC TV Pulse 68 08/07/2012 8:23 AM SVP PROGRAMMATIC TV Temperature 37 ??C (98.6 ??F) 08/07/2012 8:23 AM SVP PROGRAMMATIC TV Respiratory Rate 14 08/07/2012 8:23 AM SVP PROGRAMMATIC TV Oxygen Saturation - - Inhaled Oxygen Concentration - - Weight 98 kg (216 lb) 08/07/2012 8:23 AM SVP PROGRAMMATIC TV Height 170.2 cm (5' 7) 08/07/2012 8:23 AM SVP PROGRAMMATIC TV Body Mass Index 33.83 08/07/2012 8:23 AM SVP PROGRAMMATIC TV documented in this encounter Patient Instructions Patient InstructionsDoEsmer dunham MD - 08/07/2012 8:43 AM SVP PROGRAMMATIC TV The Mediterranean Diet can reduce your risk of Heart Disease and Stroke Recommended: Iuka oil >4 Tbs/day Tree nuts >3 handfuls/wk, [...] <1/day Or processed meats <1/day Taken from [place] [employer] [facility] Jul 2012 PROGRAMMATIC TV documented in this encounter Progress Notes Esmer [...] Panic / Manic symptoms: Yes- anxiety PHQ-9 Monegasque PHQ-9 Any Language ?? Amount of exercise [...] and Medical/Social/Surgical histories reviewed in [facility] andupdated as appropriate. Labs reviewed in [facility] OBJECTIVE: BP 112/62 Pulse 68 Temp(Src) 98.6 [...] increase fruits/vegetables and avoid sweets. Esmer Roland [facility] PROGRAMMATIC TV documented in this encounter Nursing Notes 08/07/2012 [...] deficiency documented in this encounter Care Teams Customer Care Professional Relationship Specialty Start Date End Date Esmer Roland MD PCP - General Family Practice 09/21/10 01/29/17 documented as of this encounter
--- OUTSIDE RECORDS SUMMARY | 2022-05-20 09:04 | XMS_ITS | Encounter Summary ---
:1975 Author Organization [place] Address [address] [place] [address] Care Team Providers Name Role Phone Esmer Roland MD Primary Care Provider [phone] Reason for Visit Reason Comments URI swollen glands Encounter Details Date Type Department Care Team Description 02/14/2011 Office Visit [facility] Esmer Roland PHARYNG ITIS (Primary Dx); Clinic Sara Byrd MD Major depress dis, severe [place] [address] [facility], [address] [place] [address] [place], [place] [phone] (Wo rk) [address] [phone] Social History Tobacco Use Types Packs/Day Years [...] Component Value Ref Test Analysis Performed At [facility] Range Method Time Signature Specimen Throat [facility] LAB Culture Micro No Beta [place] Streptococcus [facility] isolated LAB Micro Report FINAL 02/16/2011 [place] Status [facility] LAB Specimen Anatomical Collection Method Collection Time Receive d Time (Source) Location / / Volume Laterality Specimen from 02/14/2011 12:26 02/14/2011 throat PM CDT 12:28 PM CDT (specimen) Esmer Roland MD LAB - MICRO GENERAL ORDERABL ES Performing Organization Address City/State/ZIP Code Phon e Number [address] [address] [facility] Rapid strep screen (02/14/2011 12:26 PM CDT) Component Value Ref Test Analysis [facility] Range Method Time Signature Specimen Throat [place] Description [facility] Rapid Strep A NEGATIVE: No Group A strepto coccal antigen detected by immunoassay, await [place] Screen culture report. [facility] Micro Report FINAL 02/14/2011 [place] Status [facility] Specimen Anatomical Collection Method Collection Time Receive d Time (Source) Location / / Volume Laterality Specimen from 02/14/2011 12:26 02/14/2011 throat PM CDT 12:28 PM CDT (specimen) Esmer Roland MD LAB - MICRO GENERAL ORDERABL ES Performing Organization Address City/State/ZIP Code Phon e Number [facility] [address] [facility] documented in this encounter Visit Diagnoses Diagnosis Pharyngitis - Primary Acute pharyngitis Major depressive disorder, single episod e, severe, without mention of psychotic behavior documented in this encounter Care Teams Principal Systems Architect Relationship Specialty Start Date End Date Esmer Roland MD PCP - General Family Practice 09/21/10 01/29/17 documented as of this encounter
--- OUTSIDE RECORDS SUMMARY | 2022-05-20 09:04 | XMS_ITS | Encounter Summary ---
:1975 Author Organization [place] Address [address] [facility] [place] [address] Care Team Providers Name Role Phone Esmer Roland MD Primary Care Provider Reason for Visit Reason Onset Date Comments Refill Request 04/11/2011 lorazepam Encounter Details Date Type Department Care Team Description 04/11/2011 Refill [facility] Esmer Roland Refill Request Clinic [place] MD Rochelle (lorazepam) [address] [place] [address] SONJA BENAVIDEZ [id number] [phone] Social History Tobacco Use Types Packs/Day Years [...] Office Visit: 02/14/11 Kristine Alston, Pharmacy Float Dynamic Etching Processor [facility] documented in this encounter Plan of Treatment Not on filedocumented as of this encounter Visit Diagnoses Diagnosis ANXIETY STATE NOS Anxiety state, unspecified documented in this encounter Care Teams Assembler Watch Train Relationship Specialty Start Date End Date Esmer Roland MD PCP - General Family Practice 09/21/10 01/29/17 documented as of this encounter
--- OUTSIDE RECORDS SUMMARY | 2022-05-20 09:04 | XMS_ITS | Encounter Summary ---
:1975 Author Organization [place] Address [address] [place] [address]. [place] [address] Care Team Providers Name Role Phone Esmer Roland MD Primary Care Provider [phone] Reason for Visit Reason Onset Date Comments Hives 03/13/2011 Encounter Details Date Type Department Care Team Description 03/13/2011 Telephone [facility] [place] [address] [facility] [place], [address] [place] [address] [address] [place] [address] [place] [address] [phone] Social History Tobacco Use Types Packs/Day Years [...] unspecified documented in this encounter Care Teams [employer] Executive Director Relationship Specialty Start Date End Date Esmer Roland MD PCP - General Family Practice 09/21/10 01/29/17 documented as of this encounter
--- OUTSIDE RECORDS SUMMARY | 2022-05-20 09:04 | XMS_ITS | Encounter Summary ---
:1975 Author Organization [place] Address [facility] [place] [address] Care Team Providers Name Role Phone Esmer Roland MD Primary Care Provider [phone] Reason for Visit Reason Onset Date Comments Refill Request 03/10/2012 [place] Encounter Details Date Type Department Care Team Description 03/10/2012 Refill [facility] Esmer Roland Refill Request ([place]) Clinic Sara Byrd MD [address] [place] [address], [address] [place] [address] [address] [place] [address] [place], [place] [phone] (Wo rk) [address] [phone] Social History Tobacco Use Types Packs/Day Years [...] Office Visit 03/05/12 Thank You Jose Castle [facility] Float Tech documented in this encounter Plan of Treatment Not on filedocumented as of this encounter Visit Diagnoses Diagnosis Insomnia - Primary Insomnia, unspecified documented in this encounter Care Teams Dinkey Operator Slate Relationship Specialty Start Date End Date Esmer Roland MD PCP - General Family Practice 09/21/10 01/29/17 documented as of this encounter
--- OUTSIDE RECORDS SUMMARY | 2022-05-20 09:04 | XMS_ITS | Encounter Summary ---
:1975 Author Organization [place] Address [address] [place] [address]. [place] [address] Care Team Providers Name Role Phone Esmer Roland MD Primary Care Provider [phone] Reason for Visit Reason Comments ER F/U Was in the ER last night for chest discomfort/congestion/aplpatations. Feels bruised. SOB. ?? Anxiety rel ated. Was given Ativan in the ER and had relief. Encounter Details Date Type Department Care Team Description 12/31/2010 Office Visit [facility] Martin Hauser NXIETY STATE NOS; Clinic [place] Shane Garcia MD Palpitations; [address] [facility] ARIJA AESTHETIC Chest pain [place], [place] [address] [address] [phone] [place], [place] [address] (Wo rk) Social History [...] symptomatic and supportive care. Martin Hauser MD [facility] documented in this encounter Nursing Notes [...] covers vaccines) Mychart Offered: Yes Jeimy Bowman HOME CARE GIVER documented in this encounter Plan of Treatment Not on filedocumented as of this encounter Visit Diagnoses Diagnosis ANXIETY STATE NOS Anxiety state, unspecified Palpitations Chest pain Chest pain, unspecified documented in this encounter Care Teams Antique Collector Relationship Specialty Start Date End Date Esmer Roland MD PCP - General Family Practice 09/21/10 01/29/17 documented as of this encounter
--- OUTSIDE RECORDS SUMMARY | 2022-05-20 09:04 | XMS_ITS | Encounter Summary ---
:1975 Author Organization [place] Address [address] [place] [address] Care Team Providers Name Role Phone Esmer Roland MD Primary Care Provider [phone] Reason for Visit Reason Comments Refill Request Encounter Details Date Type Department Care Team Description 01/21/2011 Office Visit [facility] Esmer Rloand ANXIETY STATE NOS (Primary Dx); Clinic Sara Byrd MD Palpitations; [place] [address] [facility], [address] [place] [address] [place], [place] [phone] (Wo rk) [address] [phone] Social History Tobacco Use Types Packs/Day Years [...] unspecified documented in this encounter Care Teams School Janitor Relationship Specialty Start Date End Date Esmer Roland MD PCP - General Family Practice 09/21/10 01/29/17 documented as of this encounter
--- OUTSIDE RECORDS SUMMARY | 2022-05-20 09:04 | XMS_ITS | Encounter Summary ---
:1975 Author Organization [place] Address [facility] [address] Care Team Providers Name Role Phone Esmer Roland MD Primary Care Provider [phone] Reason for Visit Reason Onset Date Comments Forms 04/18/2011 FMLA recert Encounter Details Date Type Department Care Team Description 04/18/2011 Telephone [facility] Esmer Roland Forms ( FMLA recert) [place] [address] [place] [address], [address] [place] [address] [address] [place] [address] [place], [place] [phone] (Wo rk) [address] [phone] Social History Tobacco Use Types Packs/Day Years [...] hope the time is not needed! Dariana RAM PLANNER documented in this encounter Plan of Treatment Not on filedocumented as of this encounter Visit Diagnoses Not on filedocumented in this encounter Care Teams Mud Temperer Relationship Specialty Start Date End Date Esmer Roland MD PCP - General Family Practice 09/21/10 01/29/17 documented as of this encounter
--- OUTSIDE RECORDS SUMMARY | 2022-05-20 09:04 | XMS_ITS | Encounter Summary ---
:1975 Author Organization [place] Address [address] [place] [address] Care Team Providers Name Role Phone Esmer Roland MD Primary Care Provider Encounter Details Date Type Department Care Team Description 12/30/2010 Emergency room [facility] Results EMERGENCY PHYSI MELINA ROMERO [address] [place], [place] [address] Social History Tobacco Use Types Packs/Day Years Used Date Smoking Tobacco: Former Smokeless Tobacco: Never Comments: Quit September last year. Alcohol Use Standard Drinks/Week Comments Yes 0 (1 standard drink = 0.6 oz pure alcoho l) 1 qo week Sex Assigned at Date Recorded Not on file documented as of this encounter Progress Notes Interface, Target Network Analyst - 01/01/2011 8:56 PM CDT FINAL Chief [...] information - -: ECG: Rate 92 bpm. NV interval 112. QRS duration 82. QT/QTc 332/410. [...] JOSE MERCADO [place]: Name: DARIANA VALDEZ Account: [id number] : 1975 Visit Date: 12/30/2010 Document: [id number] documented in this encounter Plan of Treatment Not on filedocumented as of this encounter Visit Diagnoses Not on filedocumented in this encounter Care Teams Dietary Aide Relationship Specialty Start Date End Date Esmer Roland MD PCP - General Family Practice 09/21/10 01/29/17 documented as of this encounter
--- OUTSIDE RECORDS SUMMARY | 2022-05-20 09:04 | XMS_ITS | Encounter Summary ---
:1975 Author Organization [place] Address [address] [place] [address]. [place] [address] Care Team Providers Name Role Phone Esmer Roland MD Primary Care Provider [phone] Reason for Visit Reason Onset Date Comments Refill Request 03/06/2011 LORAZEPAM 1MG Encounter Details Date Type Department Care Team Description 03/06/2011 Refill [facility] Esmer Roland Refill Request Clinic Sara Byrd MD (LORAZEPAM 1MG) [address] [place] [address], [address] [place] [address] [address] [place] [address] [place], [place] [phone] (Wo rk) [address] [phone] Social History Tobacco Use Types Packs/Day Years [...] unspecified documented in this encounter Care Teams Exhibit Preparator Relationship Specialty Start Date End Date Esmer Roland MD PCP - General Family Practice 09/21/10 01/29/17 documented as of this encounter
--- OUTSIDE RECORDS SUMMARY | 2022-05-20 09:04 | XMS_ITS | Encounter Summary ---
:1975 Author Organization [place] Address [address] [place] [address] Care Team Providers Name Role Phone Esmer Roland MD Primary Care Provider [phone] Reason for Visit Reason Comments Weight Check Encounter Details Date Type Department Care Team Description 09/22/2012 Allied Health/Nurse [facility] Weight Check Visit [address], [address] [place] [address] Social History Tobacco Use [...] Body Mass Index 33.2 08/07/2012 8:23 AM MANAGER OF CARE documented in this encounter Progress Notes Mayela Reese - 09/22/2012 1:41 PM CDT Weight and blood pressure check. Mayela Reese RN documented in this encounter Plan of Treatment Not on filedocumented as of this encounter Visit Diagnoses Diagnosis Obesity - Primary Obesity, unspecified documented in this encounter Care Teams Donations Attendant Relationship Specialty Start Date End Date Esmer Roland MD PCP - General Family Practice 09/21/10 01/29/17 documented as of this encounter
--- OUTSIDE RECORDS SUMMARY | 2022-05-20 09:04 | XMS_ITS | Encounter Summary ---
:1975 Author Organization [place] Address [address] [place] [address] Care Team Providers Name Role Phone Esmer Roland MD Primary Care Provider [phone] Reason for Visit Reason Onset Date Comments Social Work Services 12/31/2010 Care Coordintion Encounter Details Date Type Department Care Team Description 12/31/[address] [facility] Martin Hauser ocial Work Services [facility] [place] Shane Garcia MD (Care Coordintion) [address] [place] [phone] [address] [phone] [place], [place] [address] (Wo rk) Social History [...] month She has counselor Martin Hauser MD [facility] Telephone Encounter - Kourtney Haynes - 12/31/2010 5:11 PM CDT Care Coordination Initial Digital Media Coordinator Assessment PCP: BHUMI HAUSER Referral Source: Patient identified from ED DC Census from [employer]. Utilization: Patient seen in ED on 12/30/2010. Notes from ED visit not available in EMR. Patient seen in [facility] today (12/31/2010) by PCP. No future PCP visits scheduled. Patient is to follow up with counselor in next 2 weeks. Patient last ED visit on 07/01/2010 at [facility] & admitted for depression. Only 1 ED in 2009. Disease State: Anxiety, depression (patient denies this & last PHQ ( done in 02/2009 with score of 19) Medications: patient started on ativan at ED Psychosocial: Patient is process of divorce & has 2 children ages (8 & 6). Plan: 1) No call out today as patient seen today by PCP. 2) Digital Media Coordinator to call out to patient on next business day. SONI KahnW, [facility] documented in this encounter Plan of Treatment Not on filedocumented as of this encounter Visit Diagnoses Not on filedocumented in this encounter Care Teams Exercise Equipment Specialist Relationship Specialty Start Date End Date Esmer Roland MD PCP - General Family Practice 09/21/10 01/29/17 documented as of this encounter
--- OUTSIDE RECORDS SUMMARY | 2022-05-20 09:04 | XMS_ITS | Encounter Summary ---
:1975 Author Organization [place] Address [facility] [place] [address] Care Team Providers Name Role Phone Esmer Roland MD Primary Care Provider [phone] Reason for Visit Reason Onset Date Comments Depression 02/05/2011 Encounter Details Date Type Department Care Team Description 02/05/2011 Telephone [facility] Esmer Roland, Depression Sara BANERJEE [address] [facility], [address] [place] [address] [address] [place] [address] [place] [address] [phone] Social History Tobacco Use Types Packs/Day Years [...] Primary documented in this encounter Care Teams Sanitation Tank Washer Relationship Specialty Start Date End Date Esmer Roland MD PCP - General Family Practice 09/21/10 01/29/17 documented as of this encounter
--- OUTSIDE RECORDS SUMMARY | 2022-05-20 09:04 | XMS_ITS | Encounter Summary ---
:1975 Author Organization [place] Address [facility] [place] [address] Care Team Providers Name Role Phone Esmer Roland MD Primary Care Provider [phone] Reason for Visit Reason Onset Date Comments Refill Request 04/06/2012 Xanax Encounter Details Date Type Department Care Team Description 04/06/2012 Refill [facility] Esmer Roland Refill Request (Xanax) Clinic Sara Byrd MD [address] [place] [address], [address] [place] [address] [address] [place] [address] [place], [place] [phone] (Wo rk) [address] [phone] Social History Tobacco Use Types Packs/Day Years [...] Reese - 04/06/2012 11:22 AM CDT Faxed. Myaela Reese RN Telephone Encounter - Esmer Roland [...] unspecified documented in this encounter Care Teams Portfolio Management Marketing Relationship Specialty Start Date End Date Esmer Roland MD PCP - General Family Practice 09/21/10 01/29/17 documented as of this encounter
--- OUTSIDE RECORDS SUMMARY | 2022-05-20 09:04 | XMS_ITS | Encounter Summary ---
:1975 Author Organization [place] Address [address] [facility] [place] [address] Care Team Providers Name Role Phone Esmer Roland MD Primary Care Provider [phone] Reason for Visit Reason Onset Date Comments Medication Request 03/21/2011 AMBIEN 1OMG VS 5MG Encounter Details Date Type Department Care Team Description 03/21/2011 Telephone [facility] Esmer Roland Medicat ion Request Clinic [place] MD (AMBIEN 1OMG VS 5MG) [address] [place] [address] [place] [phone] Social History Tobacco Use Types Packs/Day Years [...] NEED A NEW RX SENT OVER. THANKS! COUNTS INCLUDE 234 BEDS AT THE [facility] documented in this encounter Plan of Treatment Not on filedocumented as of this encounter Visit Diagnoses Diagnosis Insomnia - Primary Insomnia, unspecified documented in this encounter Care Teams Dental Practice Manager Relationship Specialty Start Date End Date Esmer Roland MD PCP - General Family Practice 09/21/10 01/29/17 documented as of this encounter
--- OUTSIDE RECORDS SUMMARY | 2022-05-20 09:04 | XMS_ITS | Encounter Summary ---
:1975 Author Organization [place] Address [address] [place] [address] Care Team Providers Name Role Phone Fawad Roland MD Primary Care Provider [phone] Reason for Visit Reason Comments Dysuria Encounter Details Date Type Department Care Team Description 03/12/2011 Allied Health/Nurse [facility] Dysuria Visit [address], [address] [place] [address] Social History Tobacco Use Types Packs/Day [...] Component Value Ref Test Analysis Performed At [facility] Range Method Time Signature Specimen Vagina [facility] Description [facility] Wet Prep Clue cells seen [place] No yeast seen [place] No Trichomonas seen [facility] Micro Report FINAL [place] Status 03/12/2011 [facility] Specimen Anatomical Collection Method Collection Time Receive d Time (Source) Location / / Volume Laterality 03/12/2011 1:25 PM 1 1:26 CDT PM CDT Fawad Roland MD LAB - MICRO GENERAL ORDERABL ES Performing Organization Address [facility] Phon e Number [address] [address] [facility] (ABNORMAL) Microscopic exam urine (03/12/2011 11:08 AM CDT) [facility] Method Time Signature WBC Urine 10-25 (A) 0 - 2 [facility] /HPF [facility] RBC Urine 2-5 (A) 0 - 2 [facility] /HPF [facility] Squamous Few [facility]LP[facility] Epithelial [place] /[facility] Urine CLINIC LAB Bacteria Urine Moderate (A) NEG /HPF [facility] Mucous Urine Present (A) NEG /LPF [facility] Specimen Anatomical Collection Method Collection Time Receive d Time (Source) Location / / Volume Laterality 03/12/2011 11:08 03/12/2011 AM CDT 11:09 AM CDT Fawad Roland MD LAB - URINE ORDERABLES Performing Organization Address [facility] Phon e Number [address] [address] [facility] Urine culture (03/12/2011 11:08 AM CDT) [facility] Method Time Signature Specimen Midstream [place] Description Urine [facility] Culture Micro No growth [facility] Micro Report FINAL [place] Status 03/14/2011 [facility] Specimen Anatomical Collection Method Collection Time Receive d Time (Source) Location / / Volume Laterality 03/12/2011 11:08 03/12/2011 AM CDT 11:10 AM CDT Fawad Roland MD LAB - MICRO GENERAL ORDERABL ES Performing Organization Address City/State/ZIP Code Phon e Number [facility] [address] [place] [address] [phone] HOSPITAL [facility] (ABNORMAL) UA macroscopic with reflex to micro (03/12/2011 11:08 AM CDT) [facility] Method Time Signature Color Urine Yellow [facility] Appearance Urine Slightly [place] Cloudy [facility] Glucose Urine Negative NEG mg/dL [facility] Bilirubin Urine Negative NEG [facility] Ketones Urine Trace (A) NEG mg/dL [facility] Specific [place] 1.020 1.003 - [place] Urine 1.035 [facility] Blood Urine Small (A) NEG [facility] pH Urine 6.0 5.0 - 7.0 [place] pH [facility] Protein Albumin Trace (A) NEG mg/dL [facility] Urobilinogen 1.0 0.2 - 1.0 [place] Urine EU/dL [facility] Nitrite Urine Negative NEG [facility] Leukocyte Moderate (A) NEG [place] Esterase Urine [facility] Source Midstream [place] Urine [facility] Specimen Anatomical Collection Method Collection Time Receive d Time (Source) Location / / Volume Laterality Urine specimen 03/12/2011 11:08 1 (specimen) AM CDT 11:09 AM CDT Fawad Roland MD LAB - URINE ORDERABLES Performing Organization Address City/State/ZIP Code Phon e Number [facility] [id number] [place] [phone] [facility] documented in this encounter Visit Diagnoses Diagnosis Vaginitis - Primary Vaginitis and vulvovaginitis, unspecifie d Dysuria UTI (urinary tract infection) Urinary tract infection, site not specif ied documented in this encounter Care Teams Medical Assistant Internal Medicine Relationship Specialty Start Date End Date Fawad Roland MD PCP - General Family Practice 09/21/10 01/29/17 documented as of this encounter
--- OUTSIDE RECORDS SUMMARY | 2022-05-20 09:04 | XMS_ITS | Encounter Summary ---
:1975 Author Organization [place] Address [address] [facility] [place] [address] Care Team Providers Name Role Phone Esmer Roland MD Primary Care Provider [phone] Yony Garcia PA-C Primary Care Provider [phone] Yony Garcia PA-C Unavailable [phone] Erik Rivas Primary Care Provider Yony Garcia PA-C Unavailable [phone] Reason for Visit Reason Onset Date Comments Refill Request 06/08/2012 Paxil 20mg Encounter Details Date Type Department Care Team Description 06/08/2012 MyC Refill [facility] Esmer Roland Refill Request (Paxil Clinic [place] MD Rochelle 20mg) [address] [place] [address] [address] [place] [address] [place], [place] [phone] (Wo rk) [address] [phone] Social History Tobacco Use Types Packs/Day Years [...] approved per standing orders. Mayela Reese RN EIN CHEMIST Telephone Encounter - Mayela Reese - 06/08/2012 [...] needed Max Refills: 6mths Need updated PHQ-9. [employer] message sent. Mayela Reese RN EIN CHEMIST Telephone Encounter - Rosy Reeseique - 06/08/2012 1:51 PM PROTEIN CHEMIST Message from [employer]: Original authorizing provider: MD Dariana Man Verito Jacqui would like a refill of the following medications: PARoxetine (PAXIL) 20 MG tablet [Esmer Roland MD] Preferred pharmacy: [facility] Comment: EIN CHEMIST documented in this encounter Plan of Treatment Not on filedocumented as of this encounter Visit Diagnoses Diagnosis ANXIETY STATE NOS - Primary Anxiety state, unspecified documented in this encounter Care Teams Meter Tester Relationship Specialty Start Date End Date Esmer Roland, PCP - General Family Practice 09/21/10 01/29/17 Yony Garcia, PCP - General Physician Screw Machine Setter - 01/30/17 07/23/18 [facility] Yony Garcia, PCP - Assigned PCP 09/01/16 08/11/18 [facility] [address] [place] [id number] Erik Rivas PCP - General Family Practice 07/24/[address] [address] Yony Garcia, Assigned PCP 09/01/16 [facility] [address] [place] [address] documented as of this encounter
--- OUTSIDE RECORDS SUMMARY | 2022-05-20 09:04 | XMS_ITS | Encounter Summary ---
:1975 Author Organization [place] Address [facility]0 [facility] [place] [address] Care Team Providers Name Role Phone Esmer Roland MD Primary Care Provider [phone] Encounter Details Date Type Department Care Team Description 06/04/2012 E-Visit [facility] Esmer Roland D epress Dis, Clinic Sara Byrd MD Severe (Primary Dx) [facility], [address] [place] [address] [address] [place] [address] [place], [place] [phone] (Wo rk) [address] [phone] Social History Tobacco Use Types Packs/Day Years [...] Esmer Roland MD - 06/11/2012 10:09 AM PARCEL POST ORDER CLERK Refills of paxil were sent over EL POST ORDER CLERK documented in this encounter Plan of Treatment Not on filedocumented as of this encounter Visit Diagnoses Diagnosis Major Depress Dis, Severe - Primary Major depressive disorder, single episod e, severe, without mention of psychotic behavior documented in this encounter Care Teams Press Setter Relationship Specialty Start Date End Date Esmer Roland MD PCP - General Family Practice 09/21/10 01/29/17 documented as of this encounter
--- OUTSIDE RECORDS SUMMARY | 2022-05-20 09:04 | XMS_ITS | Encounter Summary ---
:1975 Author Organization [place] Address [address] [place] [address] Care Team Providers Name Role Phone Esmer Roland MD Primary Care Provider [phone] Reason for Visit Reason Onset Date Comments Contraception 04/19/2011 Depo injection Encounter Details Date Type Department Care Team Description 04/19/2011 Telephone [facility] Esmer Roland Contrac eption (Depo Clinic Sara Byrd MD injection) [place] [address] [facility], [address] [place] [address] [place], [place] [phone] (Wo rk) [address] [phone] Social History Tobacco Use Types Packs/Day Years [...] AM CST Pt notified. Mayela Reese RN ERY STORE COURTESY CLERK Telephone Encounter - Esmer Roland - 04/19/2011 10:04 AM CST Ordered, please notify pt ERY STORE COURTESY CLERK Telephone Encounter - HughMayela - 04/19/2011 9:58 [...] Please order and advise. Mayela Reese RN ERY STORE COURTESY CLERK documented in this encounter Plan of Treatment Not on filedocumented as of this encounter Visit Diagnoses Diagnosis Contraception - Primary Unspecified contraceptive management documented in this encounter Care Teams Social Services Manager Relationship Specialty Start Date End Date Esmer Roland MD PCP - General Family Practice 09/21/10 01/29/17 documented as of this encounter
--- OUTSIDE RECORDS SUMMARY | 2022-05-20 09:04 | XMS_ITS | Encounter Summary ---
:1975 Author Organization [place] Address [address] [place] [address]. [place] [address] Care Team Providers Name Role Phone Esmer Roland MD Primary Care Provider [phone] Reason for Visit Reason Onset Date Comments Refill Request 12/17/2011 b/c Encounter Details Date Type Department Care Team Description 12/17/[address] [facility] Esmer Roland Refill Request (b/c) [place]man Byrd MD [address] [place] [address] [place] BENA[place]IDE[place] [id number] [phone] Social History Tobacco Use Types Packs/Day Years [...] done on 11/09/2010. Kaitlin Hough [facility] Telephone Encounter - Deidre Alas - 12/17/2011 4:53 PM CDT LAST FILL DATE: 09/24/11 QTY: 84 Last office appt:02/14/11 Camilo Hammonds [facility] documented in this encounter Plan of Treatment Not on filedocumented as of this encounter Visit Diagnoses Diagnosis Abnormal uterine bleeding - Primary Unspecified disorder of menstruation and other abnormal bleeding from female genital tract documented in this encounter Care Teams Dining Room Hostess Relationship Specialty Start Date End Date Esmer Roland MD PCP - General Family Practice 09/21/10 01/29/17 documented as of this encounter
--- OUTSIDE RECORDS SUMMARY | 2022-05-20 09:04 | XMS_ITS | Encounter Summary ---
:1975 Author Organization [place] Address [facility] [place] [address] Care Team Providers Name Role Phone Esmer Roland MD Primary Care Provider [phone] Reason for Visit Reason Onset Date Comments Refill Request 02/08/2012 Encounter Details Date Type Department Care Team Description 02/08/2012 Refill [facility] Esmer Roland, Refill Request Carmen Brewer MD [address] [place] [phone] [place] [address] (Wo rk) Social History Tobacco Use [...] unspecified documented in this encounter Care Teams Journeyman Sheet Metal Worker Relationship Specialty Start Date End Date Esmer Roland MD PCP - General Family Practice 09/21/10 01/29/17 documented as of this encounter
--- OUTSIDE RECORDS SUMMARY | 2022-05-20 09:04 | XMS_ITS | Encounter Summary ---
:1975 Author Organization [place] Address [address] [place] [address] Care Team Providers Name Role Phone Esmer Roland MD Primary Care Provider [phone] Reason for Visit Reason Comments Contraception Depo injection Encounter Details Date Type Department Care Team Description 04/19/2011 [facility] ion (Depo Health/Nurse Visit Clinic [facility]) [facility], [address] [place] [address] Social History Tobacco Use [...] Comments Blood Pressure 143/76 04/19/2011 2:38 PM OYSTER WASHER Pulse 74 04/19/2011 2:38 PM OYSTER WASHER Temperature - - Respiratory Rate - - Oxygen Saturation - - Inhaled Oxygen Concentration - - Weight 83 kg (183 lb) 04/19/2011 2:38 PM OYSTER WASHER Height - - Body Mass Index 28.66 [...] administration information Staff Sig: Mayela Reese RN ER WASHER documented in this encounter Plan of Treatment Not on filedocumented as of this encounter Visit Diagnoses Diagnosis Contraception management Unspecified contraceptive management Menorrhagia Excessive or frequent menstruation documented in this encounter Care Teams Liberal Arts Teacher Relationship Specialty Start Date End Date Esmer Roland MD PCP - General Family Practice 09/21/10 01/29/17 documented as of this encounter
--- OUTSIDE RECORDS SUMMARY | 2022-05-20 09:04 | XMS_ITS | Encounter Summary ---
:1975 Author Organization [place] Address [address] [place] [address]. [place] [address] Care Team Providers Name Role Phone Esmer Roland MD Primary Care Provider [phone] Reason for Visit Reason Onset Date Comments Refill Request 02/16/2011 LORAZEPAM 1MG Encounter Details Date Type Department Care Team Description 02/16/2011 Refill [facility] Esmer Roland Refill Request Clinic Sara Byrd MD (LORAZEPAM 1MG) [address] [place] [address] [address] [place] [address] [place], [place] [phone] (Wo rk) [address] [phone] Social History Tobacco Use Types Packs/Day Years [...] unspecified documented in this encounter Care Teams Poultry Eviscerator Relationship Specialty Start Date End Date Esmer Roland MD PCP - General Family Practice 09/21/10 01/29/17 documented as of this encounter
--- OUTSIDE RECORDS SUMMARY | 2022-05-20 09:04 | XMS_ITS | Encounter Summary ---
:1975 Author Organization [place] Address [facility] [place] [address] Care Team Providers Name Role Phone Esmer Roland MD Primary Care Provider [phone] Reason for Visit Reason Onset Date Comments Refill Request 11/06/2011 Carlito Juarez Encounter Details Date Type Department Care Team Description 11/06/2011 Refill [facility] Esmer Roland Refill Request (Ann, [facility] MD Carlito Byrd) [address] [facility], [address] [place] [address] [address] [place] [address] [place], [place] [phone] (Wo rk) [address] [phone] Social History Tobacco Use Types Packs/Day Years [...] documented in this encounter Care Teams Communications Superintendent Relationship Specialty Start Date End Date Esmer Roland MD PCP - General Family Practice 09/21/10 01/29/17 documented as of this encounter
--- OUTSIDE RECORDS SUMMARY | 2022-05-20 09:04 | XMS_ITS | Encounter Summary ---
:1975 Author Organization [place] Address [address] [place] [address]. [place] [address] Care Team Providers Name Role Phone Esmer Roland MD Primary Care Provider [phone] Reason for Visit Reason Onset Date Comments Refill Request 08/06/2011 Zolpidem Encounter Details Date Type Department Care Team Description 08/06/2011 Refill [facility] Esmer Roland Refill Request Clinic Sara Byrd MD (Zolpidem) [address] [facility], [address] [place] [address] [address] [place] [address] [place], [place] [phone] (Wo rk) [address] [phone] Social History Tobacco Use Types Packs/Day Years [...] RN, BSN Message handled by Nurse Triage. [employer] SERVICE TEAM MEMBER Telephone Encounter - Kristine Alston - 08/06/2011 12:27 PM CST Last Fill Date: 05/06/11 Last Fill Quantity: 90 Last Office Visit: 01/21/11 Kristine Alston, Pharmacy Float Caretaker Grounds [facility] Des [email or web address] SERVICE TEAM MEMBER documented in this encounter Plan of Treatment Not on filedocumented as of this encounter Visit Diagnoses Diagnosis Insomnia Insomnia, unspecified documented in this encounter Care Teams Lyft Driver Relationship Specialty Start Date End Date Esmer Roland MD PCP - General Family Practice 09/21/10 01/29/17 documented as of this encounter
--- OUTSIDE RECORDS SUMMARY | 2022-05-20 09:04 | XMS_ITS | Encounter Summary ---
:1975 Author Organization [place] Address [address] [facility] [address] Care Team Providers Name Role Phone Esmer Roland MD Primary Care Provider [phone] Reason for Visit Reason Comments Recheck Medication Blood Draw Patient requesting labs to mouna glover drawn. Patient has thyroid concerns. Abnormal Bleeding Problem Irregular periods. Patient w as bleeding most of December. Alot of vaginal pressure. Constipation Encounter Details Date Type Department Care Team Description 03/05/2012 Office Visit [facility] Esmer Roland uterine bleeding (Primary Dx); Clinic Sara Byrd MD Insomnia; [place] [address] [facility], [address] [place] [address] [place], [place] [phone] (Wo rk) [address] [phone] Social History Tobacco Use Types Packs/Day Years [...] but not now, doing very well PHQ-9 Serbian PHQ-9 Any Language ?? Amount of exercise [...] list, Allergies, and Medical/Social/Surgical histories reviewed in [facility] andupdated as appropriate. Labs reviewed in [facility] OBJECTIVE: BP 112/70 Pulse 65 Temp(Src) [...] 03/05/2012 9:30 AM CDT >> MELISSA JANSEN [facility] Mar 05, 2012 9:43 AM Patient presents [...] completed using cuff size large right arm. eMlissa Jansen CMA documented in this encounter Plan [...] athologist Signature Cholesterol 184 0 - 200 [facility] mg/dL CLINIC LAB Comment: LDL Cholesterol is the primary guide to therapy. The NCEP recommends further evaluation of: patients with cholesterol greater than 200 mg/dL if additional risk facto rs are present, cholesterol greater than 240 mg/dL, triglycerides greater than 1 50 mg/dL, or HDL less than 40 mg/dL. Triglycerides 135 0 - 150 mg/dL [facility] HDL Cholesterol 46 (L) 50 - 110 mg/dL [facility] LDL Cholesterol Calculated 111 0 - 129 mg/dL [facility] Comment: LDL Cholesterol is the primary guide to therapy: LDL-cholesterol goal in high risk patients is <100 mg/dL and in very high risk patients is <70 mg/dL. VLDL-Cholesterol 27 0 - 30 mg/dL [facility] Cholesterol/HDL Ratio 4.0 0.0 - 5.0 [facility] Specimen Anatomical Collection Method Collection Time Receive d Time (Source) Location / / Volume Laterality Blood specimen 03/05/2012 10:06 2 (specimen) AM CDT 10:08 AM CDT Esmer Roladn MD LAB - BLOOD ORDERABLES Performing Organization Address [facility]/ZIP Code Phon e Number [address] [address] [phone] [facility] Basic metabolic panel (03/05/2012 10:06 AM CDT) P athologist Signature Sodium 141 133 - 144 [facility] mmol/L CLINIC LAB Potassium 4.8 3.4 - 5.3 [facility] mmol/L [facility] Chloride 106 94 - 109 [facility] mmol/L [facility]IC LAB Carbon Dioxide 24 20 - 32 [facility] [place] mmol/L [facility]IC LAB Anion Gap 11 6 - 17 [facility] [place] mmol/L [facility]IC LAB Glucose 83 60 - 99 [facility] [place] mg/dL [facility]IC LAB Urea Nitrogen 11 5 - 24 [facility] mg/dL CL[facility]IC LAB Creatinine 0.90 0.52 - [facility] 1.04 mg/dL CLINIC LAB GFR Estimate 72 >60 [facility] mL/min/1.7 CLINIC LAB m2 GFR Estimate If 87 >60 [facility] Black mL/min/1.7 CLINIC LAB m2 Calcium 9.4 8.5 - 10.4 [facility] mg/dL CLINIC LAB Specimen Anatomical Collection Method Collection Time Receive d Time (Source) Location / / Volume Laterality Blood specimen 03/05/2012 10: 2 (specimen) AM CDT 10:08 AM CDT Esmer Roland MD LAB - BLOOD ORDERABLES Performing Organization Address City/[facility]/ZIP Code Phon e Number [address] [address] [phone] [facility] TSH with free T4 reflex (03/05/2012 10:06 AM CDT) athologist Signature TSH 1.21 0.4 - 5.0 [facility] [place] mU/L CLINIC LAB Specimen Anatomical Collection Method Collection Time Receive d Time (Source) Location / / Volume Laterality Blood specimen 03/05/2012 10: 2 (specimen) AM CDT 10:08 AM CDT Esmer Roland MD LAB - BLOOD ORDERABLES Performing Organization Address City/State/ZIP Code Phon e Number [facility] [address] [place] [address] [facility] documented in this encounter Visit Diagnoses Diagnosis Abnormal uterine bleeding - Primary Unspecified disorder of menstruation and other abnormal bleeding from female genital tract Insomnia Insomnia, unspecified Obesity Obesity, unspecified documented in this encounter Care Teams Project Eng Relationship Specialty Start Date End Date Esmer Roland MD PCP - General Family Practice 09/21/10 01/29/17 documented as of this encounter
--- OUTSIDE RECORDS SUMMARY | 2022-05-20 09:04 | XMS_ITS | Encounter Summary ---
:1975 Author Organization [place] Address [address] [place] [address]. [place] [address] Care Team Providers Name Role Phone Esmer Roland MD Primary Care Provider [phone] Reason for Visit Reason Onset Date Comments Refill Request 03/16/2012 zolpidem 5mg Encounter Details Date Type Department Care Team Description 03/16/2012 Refill [facility] Esmer Roland Refill Request Clinic Sara Byrd MD (zolpidem 5mg) [address] [facility], [address] [place] [address] [address] [place] [address] [place], [place] [phone] (Wo rk) [address] [phone] Social History Tobacco Use Types Packs/Day Years [...] Last Office Visit: 03/05/2012 Ara Liz CPhT [facility] documented in this encounter Plan of Treatment Not on filedocumented as of this encounter Visit Diagnoses Diagnosis Insomnia - Primary Insomnia, unspecified documented in this encounter Care Teams Silicator Relationship Specialty Start Date End Date Esmer Roland MD PCP - General Family Practice 09/21/10 01/29/17 documented as of this encounter
--- OUTSIDE RECORDS SUMMARY | 2022-05-20 09:05 | XMS_ITS | Encounter Summary ---
:1975 Author Organization [place] Address [address] [place] [address] Care Team Providers Name Role Phone Melvin Palacios MD Primary Care Provider Encounter Details Date Type Department Care Team Description 07/05/2010 Historic Notes INTERFACED REPORT James Bautista MD [address] [facility] [address] [place] [address] (Wo rk) Social History Tobacco [...] to medication prepare for discharge coordinate with manager primary Review of Systems - Constitutional: Negative - [...] on filedocumented in this encounter Care Teams Patient Ombudsperson Relationship Specialty Start Date End Date Melvin Palacios MD PCP - General 06/22/99 09/20/10 [address] [id number] documented as of this encounter
--- OUTSIDE RECORDS SUMMARY | 2022-05-20 09:05 | XMS_ITS | Encounter Summary ---
:1975 Author Organization [place] Address [address] [place] [address]. [place] [address] Care Team Providers Name Role Phone Melvin Palacios MD Primary Care Provider Encounter Details Date Type Department Care Team Description 07/05/2010 Results Only [facility] Allen Rose , [facility] Radiology Results [address] [place] [address] (Wo rk) Social History Tobacco [...] 4:32 PM Results f or this CONTRAST TIPPLE OILER procedure are i n the results section. documented in this encounter Results MRI Brain w/o contrast (07/05/2010 4:32 PM TIPPLE OILER) Anatomical Region Laterality Modality Head, SUBRAD MR NEURO, UMP MR NEURO Othe r Specimen (Source) Anatomical Collection Method Collection Time Re ceived Time Location / / Volume Laterality 07/05/2010 4:32 PM TIPPLE OILER Impressions 07/05/2010 4:44 PM TIPPLE OILER MRI BRAIN W-O CONTRAST Jul 05, 2010 [...] on filedocumented in this encounter Care Teams City Director Relationship Specialty Start Date End Date Melvin Palacios MD PCP - General 06/22/99 09/20/10 [address] [id number] documented as of this encounter
--- OUTSIDE RECORDS SUMMARY | 2022-05-20 09:05 | XMS_ITS | Encounter Summary ---
:1975 Author Organization [place] Address [address] [place] [address] Care Team Providers Name Role Phone Melvin Palacios MD Primary Care Provider Reason for Visit Reason Comments URI Encounter Details Date Type Department Care Team Description 08/14/2010 Office Visit [facility] Esmer Roland A (Primary Dx); Clinic Sara Byrd MD Major depress dis, severe [place] [address] [facility], [address] [place] [address] [place], [place] [phone] (Wo rk) [address] [phone] Social History Tobacco Use Types Packs/Day Years [...] Comments Blood Pressure 120/62 08/14/2010 8:58 AM CUSTOMER SUPPLY CHAIN ANALYST Pulse 94 08/14/2010 8:58 AM CUSTOMER SUPPLY CHAIN ANALYST Temperature 37.2 ??C (98.9 ??F) 08/14/2010 8:58 AM CUSTOMER SUPPLY CHAIN ANALYST Respiratory Rate 16 08/14/2010 8:58 AM CUSTOMER SUPPLY CHAIN ANALYST Oxygen Saturation 99% 08/14/2010 8:58 AM CUSTOMER SUPPLY CHAIN ANALYST Inhaled Oxygen Concentration - - Weight 74.8 kg (165 lb) 08/14/2010 8:58 AM CUSTOMER SUPPLY CHAIN ANALYST Height 170.2 cm (5' 7) 08/14/2010 8:58 AM CUSTOMER SUPPLY CHAIN ANALYST Body Mass Index 25.84 08/14/2010 8:58 AM CUSTOMER SUPPLY CHAIN ANALYST documented in this encounter Progress Notes Esmer [...] these occur, they will seek care immediately. OMER SUPPLY CHAIN ANALYST documented in this encounter Plan of Treatment Not on filedocumented as of this encounter Procedures Procedure Name Priority Date/Time Associated Diagnosis Comme nts INFLUENZA A/B Routine 08/14/2010 10:07 AM Major depress dis, R esults for this ANTIGEN CUSTOMER SUPPLY CHAIN ANALYST severe procedure are in Influenza A the results section. documented in this encounter Results (ABNORMAL) Influenza A/B antigen (08/14/2010 10:07 AM CUSTOMER SUPPLY CHAIN ANALYST) [facility] Method Time Signature Influenza A/B Nasopharyngeal BAILEY Agn Specimen [facility] Influenza A Positive (A) NEG [facility] Influenza B Negative NEG [facility] Specimen Anatomical Collection Method Collection Time Receive d Time (Source) Location / / Volume Laterality 08/14/2010 10:07 08/14/2010 AM CUSTOMER SUPPLY CHAIN ANALYST 10:12 AM CUSTOMER SUPPLY CHAIN ANALYST Esmer Roland MD LAB - MICRO GENERAL ORDERABL ES Performing Organization Address City/State/ZIP Code Phon e Number [facility] [place] [address] [facility] documented in this encounter Visit Diagnoses Diagnosis Influenza A - Primary Influenza with other respiratory manifes tations Major depressive disorder, single episod e, severe, without mention of psychotic behavior documented in this encounter Care Teams Park Superintendent Relationship Specialty Start Date End Date Melvin Palacios MD PCP - General 06/22/99 09/20/10 [address] [id number] documented as of this encounter
--- OUTSIDE RECORDS SUMMARY | 2022-05-20 09:05 | XMS_ITS | Encounter Summary ---
:1975 Author Organization [place] Address [facility] [place] [address] Care Team Providers Name Role Phone Melvin Palacios MD Primary Care Provider Esmer Roland MD Primary Care Provider [phone] Encounter Details Date Type Department Care Team Description 07/01/2010 Historic Results [facility] Pancho Rodriguez Emergency Department MD [place] [address] [facility] [address] [place] [address] [place] [address] (Wo rk) Social History Tobacco [...] 07/01/2010 6:30 PM Results f or this PRINCIPAL ARCHAEOLOGIST procedure are i n the results section . documented in this encounter Results EKG 12 LEAD (07/01/2010 6:30 PM PRINCIPAL ARCHAEOLOGIST) Component Value Ref Range Test Analysis Performed Pathologis t Method Time At Signature Ventricular Rate 77 BPM RADIOLOGY RESULTS Atrial Rate 77 BPM RADIOLOGY RESULTS ND Interval 112 ms RADIOLOGY RESULTS QRS Duration 88 ms RADIOLOGY RESULTS QT 366 ms RADIOLOGY RESULTS QTc 414 ms RADIOLOGY RESULTS P [place] 16 degrees RADIOLOGY RESULTS R AXIS 66 degrees RADIOLOGY RESULTS T [place] 24 degrees RADIOLOGY RESULTS Interpretation Sinus rhythm RADIOLOGY ECG Normal ECG RESULTS Unconfirmed report - interpretation of this ECG is compute r generated - see medical record for final interpretation Specimen Anatomical Collection Method Collection Time Receive d Time (Source) Location / / Volume Laterality 07/01/2010 6:30 PM 1 6:23 PRINCIPAL ARCHAEOLOGIST PM PRINCIPAL ARCHAEOLOGIST Ángela Rodriguez MD ECG ORDERABLES Performing Organization Address City/State/[facility] Code Phon e Number RADIOLOGY RESULTS documented in this encounter Visit Diagnoses Not on filedocumented in this encounter Care Teams Solar Installation Helper Relationship Specialty Start Date End Date Melvin Palacios MD PCP - General 06/22/99 09/20/10 [address] [place] [address] Esmer Roland MD PCP - General Family Practice 09/21/10 01/29/17 documented as of this encounter
--- OUTSIDE RECORDS SUMMARY | 2022-05-20 09:05 | XMS_ITS | Encounter Summary ---
:1975 Author Organization [place] Address [address] [place] [address] Care Team Providers Name Role Phone Melvin Palacios MD Primary Care Provider Esmer Roland MD Primary Care Provider [phone] Encounter Details Date Type Department Care Team Description 07/01/2010 Historic Health Care Social Worker INTERFACED REPORT Cooper MD [address] [facility] [place] [address] (Wo rk) Social History Tobacco Use Types Packs/Day Years Used Date Smoking Tobacco: Every Day Comments: 1-2 every other day Alcohol Use Standard Drinks/Week Comments Yes 0 (1 standard drink = 0.6 oz pure alcoho l) 1 qo week Sex Assigned at Date Recorded Not on file documented as of this encounter Progress Notes Allen Bautista - 05/13/2011 6:32 PM DAIRY LABORATORY TECHNICIAN FINAL INSURANCE: [employer]. IDENTIFICATION: Juan Carlos Valdez is a 34-year-old [...] works at least full-time basis at the [employer] and then a 2nd clinic, [facility], in the evening until 10 p.m.; therefore, [employer] from 8 until 4 p.m. She [...] patient. She reiterates, It was a 3rd democrat. They were sitting on the floor, playing [...] ever since. 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 He too is a resident in [place] and lives independently. She indicates his girlfriend [...] prescribed by her primary nurse practitioner at [facility]. 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 The [...] compromised because of her unresolved distress. DIAGNOSES: [place] I: 1. Depression, major, recurrent. 2. Panic disorder, part of anxiety. [place] III: Per primary care. [place] IV: Stressors: Moderate. [place] V: Global Assessment of Functioning at 10-20 [...] Name: JUAN CARLOS VALDEZ MRN: [id number] Account: [id number] : 1975 Admitted: [id number] Document: [id number] cc: [facility] Ángela Hammonds RN Y LABORATORY TECHNICIAN documented in this encounter Plan of Treatment Not on filedocumented as of this encounter Visit Diagnoses Not on filedocumented in this encounter Care Teams Roving Teller Relationship Specialty Start Date End Date Melvin Palacios MD PCP - General 06/22/99 09/20/10 [address] [id number] Esmer Roland MD PCP - General Family Practice 09/21/10 01/29/17 documented as of this encounter
--- OUTSIDE RECORDS SUMMARY | 2022-05-20 09:05 | XMS_ITS | Encounter Summary ---
:1975 Author Organization [place] Address [address] [place] [address] Care Team Providers Name Role Phone Esmer [...] RESULTS Atrial Rate 92 BPM RADIOLOGY RESULTS LA Interval 112 ms RADIOLOGY RESULTS QRS Duration 82 ms RADIOLOGY RESULTS QT 332 ms RADIOLOGY RESULTS QTc 410 ms RADIOLOGY RESULTS P [place] 42 degrees RADIOLOGY RESULTS R AXIS 69 degrees RADIOLOGY RESULTS T [place] -36 degrees RADIOLOGY RESULTS Interpretation AGE AND [...] on filedocumented in this encounter Care Teams Knit Goods Mender Relationship Specialty Start Date End Date Esmer Roland MD PCP - General Family Practice 09/21/10 01/29/17 documented as of this encounter
--- OUTSIDE RECORDS SUMMARY | 2022-05-20 09:05 | XMS_ITS | Encounter Summary ---
:1975 Author Organization [place] Address [address] [place] [address] Care Team Providers Name Role Phone Esmer Roland MD Primary Care Provider Encounter Details Date Type Department Care Team Description 12/30/2010 Results [facility] Hospital Results EMERGENCY PHYSI MELINA ROMERO [address] [place] [address] [...] on filedocumented in this encounter Care Teams Warehouse Analyst Relationship Specialty Start Date End Date Esmer Roland MD PCP - General Family Practice 09/21/10 01/29/17 documented as of this encounter
--- OUTSIDE RECORDS SUMMARY | 2022-05-20 09:05 | XMS_ITS | Encounter Summary ---
:1975 Author Organization [place] Address Critical access hospital0 [facility] [place] [address] Care Team Providers Name Role Phone Esmer Roland MD Primary Care Provider Reason for Visit Reason Onset Date Comments Injury 12/13/2010 pinky toe rt foot Encounter Details Date Type Department Care Team Description 12/13/2010 Telephone [facility] Esmer Roland Injury (pinky toe rt Clinic Sara Byrd MD foot) [address] [facility], [address] [place] [address] [address] [place] [address] [place], [place] [phone] (Wo rk) [address] [phone] Social History Tobacco Use Types Packs/Day Years [...] foot documented in this encounter Care Teams Fine Hairer Relationship Specialty Start Date End Date Esmer Roland MD PCP - General Family Practice 09/21/10 01/29/17 documented as of this encounter
--- OUTSIDE RECORDS SUMMARY | 2022-05-20 09:05 | XMS_ITS | Encounter Summary ---
:1975 Author Organization [place] Address [address] [facility] [place] [address] Care Team Providers Name Role Phone Melvin [...] as of this encounter Progress Notes Interface, Industrial Property Appraiser - 08/23/2010 10:44 PM CDT Safety Precautions Initiated (NOTE: MD Order Needed every 24 hours) - Date/Time Safety 21:15 Precautions Initiated: - indirect sales exec of Need Patient admitted with SI. for Safety Precautions: Signatures Moshe Gonzalez (SHAREE)[Signed 00:40] Authored: Safety Precautions Initiated (NOTE: MD Order Needed every 24 hours) Interface, Industrial Property Appraiser - 08/23/2010 10:43 PM CDT Summary of [...] time. In addition, you spoke with your route sales specialist at [facility] and will start a Divorce Care Group. [...] suicide Psychiatry Follow-Up - Psychiatrist/Primary Liliya Mckeon RECORDS SPECIALIST Plastic Cutter: - Psychiatrist Address: [facility] - Psychiatrist Number: - Psychiatrist 11:30 Appointment Date/Time: - Therapist: Thelma - Therapist Address: [facility] - Therapist Number: - Therapist Appointment 02:00 Date/Time: - Other Referrals: Divorce Care Group - Other Referrals [facility] Address: Provider Information - Discharged From: [facility] - Unit: [address] [place] [address] - Unit - Method: ambulatory - Transportation: [...] Avoid alcohol. Resources - Resources Crisis Intervention: 504.973.7369 or 582 838-1767 (TTY: 554.716.5964); call anytime for help. National [place] on Mental Illness (www.[place].org):: 656.894.9723 or 280-846-9756. National Suicide Prevention Line (www.mentalhealthmn.org): 736-304-EDXD [8255] Mental Health Association of [place] (www.mentalhealth.org): 353.590.5797 or 408-990-3981. Signatures EMIGDIO LEE (RN)[Signed 11:57] Authored: Summary of Progress and Discharge Plan, Discharge Teaching Checklist NEEMA MARTE (Clinical Alternative Education Teacher)[Signed 16:35] Authored: Summary of Progress and Discharge Plan, Psychiatry Follow-Up, Provider Information, Resources Interface, Industrial Property Appraiser - 08/23/2010 10:43 PM CDT Clinical Alternative Education Teacher Note - :: Pt admitted with suicidal ideation having overdosed on Dilaudid and Klonopin. Very depressed and overwhelmed with divorce of one year and worries about finances. Caring for two sons whom she shares joint custody with ex-. 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 Parents concerned because the depression and hopeless [...] Philip Plaque he gave her and their [place] Candle from their wedding. Her ex told [...] graduate with one year of college for [employer]. Parents help financially and also help her care for her children. This is patient's first inpatient admission. She has been encouraged to attend all unit programming and meet with her staff as needed. She sees Liliya DAVIDSON and will schedule therapist at [facility] in [place]. Flowsheets #1 and #4 completed and the Patient Profile has been updated. NEEMA Bledsoe (Clinical Alternative Education Teacher)[Signed 16:07] Authored: Clinical Alternative Education Teacher Note Interface, Industrial Property Appraiser - 08/23/2010 10:41 PM CDT General Information [...] on filedocumented in this encounter Care Teams Conformal Pad Former Relationship Specialty Start Date End Date Melvin Palacios MD PCP - General 06/22/99 09/20/10 [address] [id number] documented as of this encounter
--- OUTSIDE RECORDS SUMMARY | 2022-05-20 09:05 | XMS_ITS | Encounter Summary ---
:1975 Author Organization [place] Address [address] [place] [address]. [place] [address] Care Team Providers Name Role Phone Melvin Palacios MD Primary Care Provider Encounter Details Date Type Department Care Team Description 07/02/2010 Consultation [facility] Brian Shukla MD [address] [place] Results [address] [place] [address] (Wo rk) Social History Tobacco Use Types Packs/Day Years Used Date Smoking Tobacco: Every Day Comments: 1-2 every other day Alcohol Use Standard Drinks/Week Comments Yes 0 (1 standard drink = 0.6 oz pure alcoho l) 1 qo week Sex Assigned at Date Recorded Not on file documented as of this encounter Progress Notes Otoniel Shukla MD - 08/12/2010 4:33 PM CLIENT ADMINISTRATOR FINAL REQUESTING PHYSICIAN: Allen Rose MD. HISTORY [...] [place]RE[place] Name: DARIANA VALDEZ MRN: [id number] Account: [id number] : 1975 Consult Date: 07/02/2010 Document: [id number] cc: Allen Rose MD NT ADMINISTRATOR documented in this encounter Plan of Treatment Not on filedocumented as of this encounter Visit Diagnoses Not on filedocumented in this encounter Care Teams Back Up Machine Operator Relationship Specialty Start Date End Date Melvin Palacios MD PCP - General 06/22/99 09/20/10 [address] [id number] documented as of this encounter
--- OUTSIDE RECORDS SUMMARY | 2022-05-20 09:05 | XMS_ITS | Encounter Summary ---
:1975 Author Organization [place] Address [address] [place] [address] Care Team Providers Name Role Phone Esmer Roland MD Primary Care Provider [phone] Reason for Visit Reason Onset Date Comments Refill Request 11/20/2010 orlando oconnell Encounter Details Date Type Department Care Team Description 11/20/2010 Refill [facility] Harris Jung MD Refill Request (Jamie oconnell [address] [facility] JOSE perry) [address] [facility] 100 [address] 160 [address] [place] [id number] Social History Tobacco Use Types Packs/Day Years [...] and have phoned the rx into the [facility] pharmacy HARRIS JUNG MD Telephone Encounter - Triston Sandoval - 11/20/2010 1:15 PM CDT Trazodone LAST FILL DATE: 10/03/2010 LAST FILL QTY: 30 Zolpidem LAST FILL DATE: 10/03/2010 LAST FILL QTY: 30 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 [employer] [facility]ON SANDOVAL [facility] documented in this encounter Plan of Treatment Not on filedocumented as of this encounter Visit Diagnoses Diagnosis Major depressive disorder, single episod e, severe, without mention of psychotic behavior Influenza A Influenza with other respiratory manifes tations Insomnia Insomnia, unspecified documented in this encounter Care Teams Software Integration Developer Relationship Specialty Start Date End Date Esmer Roland MD PCP - General Family Practice 09/21/10 01/29/17 documented as of this encounter
--- OUTSIDE RECORDS SUMMARY | 2022-05-20 09:05 | XMS_ITS | Encounter Summary ---
:1975 Author Organization [place] Address [address] [facility] [place] [address] Care Team Providers Name Role Phone Melvin Palacios MD Primary Care Provider Encounter Details Date Type Department Care Team Description 07/05/2010 Discharge Summary [facility] Allen Bautista (Food Equipment Service Technician) [facility] MD Shay Results [address] [place] [address] (Wo rk) Social History Tobacco Use Types Packs/Day Years Used Date Smoking Tobacco: Every Day Comments: 1-2 every other day Alcohol Use Standard Drinks/Week Comments Yes 0 (1 standard drink = 0.6 oz pure alcoho l) 1 qo week Sex Assigned at Date Recorded Not on file documented as of this encounter Progress Notes Allen Bautista - 07/08/2010 9:58 PM DIESEL LOCOMOTIVE FIRER FINAL IDENTIFICATION: Juan Carlos Valdez is a [...] MT: [place] Name: JUAN CARLOS VALDEZ Account: [id number] : 1975 Admit Date: Discharge Date: 07/06/2010 Document: [id number] cc: Melvin Palacios MD [facility] Az Hodge MD EL LOCOMOTIVE FIRER documented in this encounter Plan of Treatment Not on filedocumented as of this encounter Visit Diagnoses Not on filedocumented in this encounter Care Teams Lacquer Spray Booth Operator Relationship Specialty Start Date End Date Melvin Palacios MD PCP - General 06/22/99 09/20/10 [address] [id number] documented as of this encounter
--- OUTSIDE RECORDS SUMMARY | 2022-05-20 09:05 | XMS_ITS | Encounter Summary ---
:1975 Author Organization [place] Address [address] [place] [address] Care Team Providers Name Role Phone Esmer Roland MD Primary Care Provider Reason for Visit Reason Comments Naphthalene Still Operator Exam Encounter Details Date Type Department Care Team Description 11/09/2010 Office Visit [facility] Cayetano Jung, Routine gynecological examination (Primary Dx); [facility] Abnormal uterine bleeding; [address] NOS [address] [facility] [address] [place] [address] [phone] Social History Tobacco Use Types Packs/Day Years [...] Body Mass Index 26.34 08/14/2010 8:58 AM PENSION FUND MANAGER documented in this encounter Progress Notes Cayetano Jung MD - 11/09/2010 5:01 PM CDT Dariana Valdez is a 35 year old white female P2002, Halima for menorrhagia and for contraception who presents for an annual exam and pap. She is doing better She was hospitalized [facility] 06/[facility] for suicide attempt She [...] gynecological examination (primary encounter diagnosis) Comment: nl node js developer exam Plan: PAP imaged thin layer screen, [...] 09, 2010 3:45 PM Patient presents with: Naphthalene Still Operator Exam Initial BP 120/60 Wt 168 lb [...] UA with microscopic (11/09/2010 4:41 PM CDT) [facility] gist Method Time Signature Color Urine Yellow [facility] Appearance Urine Clear [facility] Glucose Urine Negative NEG mg/dL [facility] Bilirubin Urine Negative NEG [facility] Ketones Urine 15 (A) NEG mg/dL [facility] Specific [place] >1.030 1.003 - [place] Urine 1.035 [facility] pH Urine 5.5 5.0 - 7.0 [place] pH [facility] Protein Albumin Negative NEG mg/dL [facility] Urobilinogen 1.0 0.2 - 1.0 [place] Urine EU/dL [facility] Nitrite Urine Negative NEG [facility] Blood Urine Negative NEG [facility] Leukocyte Negative NEG [place] Esterase Urine [facility] Source Midstream [facility] WBC Urine O - 2 0 - 2 [place] /HPF [facility] RBC Urine O - 2 0 - 2 [place] /HPF [facility] Squamous Few FEW /LPF [place] Epithelial /LPF [facility] Urine CLINIC LAB Bacteria Urine Few (A) NEG /HPF [facility] Mucous Urine Present (A) NEG /LPF [facility] Specimen Anatomical Collection Method Collection Time Receive d Time (Source) Location / / Volume Laterality Urine specimen 11/09/2010 4:41 PM 011 4:46 (specimen) CDT PM CDT Cayetano Jung MD LAB - URINE ORDERABLES Performing Organization Address City/State/ZIP Code Phon e Number [facility] [address] [place], [place] [address] [address] [facility] PAP imaged thin layer screen (11/09/2010 4:41 PM CDT) Component Value Ref Test Analysis Performed At [facility] Range Method Time Signature PAP NIL COPATH Copath Report COPATH Patient Name: DARIANA VALDEZ MR#: [id number] Specimen #: [id number] Collected: 11/09/2010 Received: 11/13/2010 Reported: 11/14/2010 13:19 [...] HERMES Galo (ASCP) Processed and screened at [facility] CLINICAL HISTORY: LMP: 10/21/2010 Previous normal pap Date of Last Pap: 11/07/2008, Papanicolaou Test Limitations: ??Cervical cytology is a scre ening test with limited sensitivity; regular screening is critical for cancer prevention; Pap tests are primarily effective for the diagnosis/prevention of squamous cell carcinoma, not adenoca rcinomas or other cancers. TESTING LAB LOCATION: [address] ??[phone] COLLECTION SITE: Client: ??[facility] Location: [facility] (R) Specimen (Source) Anatomical Collection Method Collection Time Re ceived Time Location / / Volume Laterality Cytologic 11/09/2010 4:41 11/13/2010 material PM CDT 11:03 AM CDT (specimen) Cayetano Jung MD LAB - OPTIME CLINICAL SPECIM EN Performing Organization Address City/State/ZIP Code Phon e Number [place] URINE CULTURE (11/09/2010 4:40 PM CDT) [facility] Method Time Signature Specimen Midstream [place] Description Urine [facility] Culture Micro 10 to 50,000 colonies/mL Mul tiple species present, probable perineal [place] contamination. [facility] Micro Report FINAL [place] Status 11/12/2010 [facility] Specimen Anatomical Collection Method Collection Time Receive d Time (Source) Location / / Volume Laterality 11/09/2010 4:40 PM 1 4:45 CDT PM CDT Cayetano Jung MD LAB - MICRO GENERAL ORDERABL ES Performing Organization Address City/State/ZIP Code Phon e Number [facility] [address] [place] [address] [facility] documented in this encounter Visit Diagnoses Diagnosis Routine gynecological examination - Prim harpal Abnormal uterine bleeding Unspecified disorder of menstruation and other abnormal bleeding from female genital tract ANXIETY STATE NOS Anxiety state, unspecified documented in this encounter Care Teams Maple Syrup Maker Relationship Specialty Start Date End Date Esmer Roland MD PCP - General Family Practice 09/21/10 01/29/17 documented as of this encounter
--- OUTSIDE RECORDS SUMMARY | 2022-05-20 09:05 | XMS_ITS | Encounter Summary ---
:1975 Author Organization [place] Address [address] [place] [address]. [place] [address] Care Team Providers Name Role Phone Melvin Palacios MD Primary Care Provider Encounter Details Date Type Department Care Team Description 07/05/2010 Historic Notes INTERFACED REPORT Brian Shukla MD [address] [facility] [address] [place] [address] (Wo rk) Social History Tobacco [...] GFR estimated 73 GFR estimated if 88 -Zimbabwean Calcium Level* 8.5 AST 22 GGT 16 [...] on filedocumented in this encounter Care Teams Fisher Terrapin Relationship Specialty Start Date End Date Melvin Palacios MD PCP - General 06/22/99 09/20/10 [address] [id number] documented as of this encounter
--- OUTSIDE RECORDS SUMMARY | 2022-05-20 09:05 | XMS_ITS | Encounter Summary ---
:1975 Author Organization [place] Address [address] [place] [address] Care Team Providers Name Role Phone Esmer Roland MD Primary Care Provider [phone] Reason for Visit Reason Comments UTI RN protocol UTI Encounter Details Date Type Department Care Team Description 10/10/2010 Allied Health/Nurse [facility] UTI (RN protocol UTI) Visit Clinic [address], [address] [place] [address] Social History Tobacco Use Types [...] Results URINE CULTURE (10/10/2010 9:23 AM CDT) [facility] Method Time Signature Specimen Midstream [place] Description Urine [facility] Culture Micro No growth [facility] Micro Report FINAL [place] Status 10/12/2010 [facility] Specimen Anatomical Collection Method Collection Time Receive d Time (Source) Location / / Volume Laterality 10/10/2010 9:23 AM 1 9:25 CDT AM CDT Esmer Roland MD LAB - MICRO GENERAL ORDERABL ES Performing Organization Address City/[facility]/ZIP [facility] Phon e Number M [facility] [address] [place] [address] [facility] (ABNORMAL) Microscopic exam urine (10/10/2010 9:13 AM CDT) [facility] Method Time Signature WBC Urine 5-10 (A) 0 - 2 [place] /HPF [facility] RBC Urine 5-10 (A) 0 - 2 [place] /HPF [facility] Squamous Moderate (A) FEW /LPF [place] Epithelial [place] /LPF Urine CLINIC LAB Bacteria Urine Few (A) NEG /HPF [facility] Mucous Urine Present (A) NEG /LPF [facility] Specimen Anatomical Collection Method Collection Time Receive d Time (Source) Location / / Volume Laterality 10/10/2010 9:13 AM 1 9:15 CDT AM CDT Esmer Roland MD LAB - URINE ORDERABLES Performing Organization Address City/[facility] Phon e Number [facility] [place] [address] [facility] (ABNORMAL) UA macroscopic with reflex to micro (10/10/2010 9:13 AM CDT) [facility] Method Time Signature Color Urine Cathy [facility] Appearance Urine Slightly [place] Cloudy [facility] Glucose Urine Negative NEG mg/dL [facility] Bilirubin Urine Negative NEG [facility] Ketones Urine Trace (A) NEG mg/dL [facility] Specific [place] 1.025 1.003 - [place] Urine 1.035 [facility] Blood Urine Small (A) NEG [facility] pH Urine 5.5 5.0 - 7.0 [place] pH [facility] Protein Albumin Trace (A) NEG mg/dL [place] Urine [facility] Urobilinogen 1.0 0.2 - 1.0 [place] Urine EU/dL [facility] Nitrite Urine Negative NEG [facility] Leukocyte Trace (A) NEG [place] Esterase Urine [facility] Source Midstream [place] Urine [facility] Specimen Anatomical Collection Method Collection Time Receive d Time (Source) Location / / Volume Laterality Urine specimen 10/10/2010 9:13 AM 011 9:15 (specimen) CDT AM CDT Esmer Roland MD LAB - URINE ORDERABLES Performing Organization Address City/State/ZIP Code Phon e Number [facility] [place] [address] [facility] documented in this encounter Visit Diagnoses Diagnosis Dysuria - Primary Other nonspecific finding on examination of urine documented in this encounter Care Teams Nuclear Power Plant Engineer Relationship Specialty Start Date End Date Esmer Roland MD PCP - General Family Practice 09/21/10 01/29/17 documented as of this encounter
--- OUTSIDE RECORDS SUMMARY | 2022-05-20 09:05 | XMS_ITS | Encounter Summary ---
:1975 Author Organization [place] Address [address] [place] [address]. [place] [address] Care Team Providers Name Role Phone Melvin Palacios MD Primary Care Provider Encounter Details Date Type Department Care Team Description 07/04/2010 Historic Notes INTERFACED REPORT James Bautista MD [address] [place] [address] (Wo rk) Social History Tobacco [...] on filedocumented in this encounter Care Teams Rn Neonatal Relationship Specialty Start Date End Date Melvin Palacios MD PCP - General 06/22/99 09/20/10 [address] [id number] documented as of this encounter
--- OUTSIDE RECORDS SUMMARY | 2022-05-20 09:05 | XMS_ITS | Encounter Summary ---
:1975 Author Organization [place] Address [address] [place] [address] Care Team Providers Name Role Phone Melvin Palacios MD Primary Care Provider Esmer Roland MD Primary Care Provider [phone] Encounter Details Date Type Department Care Team Description 09/17/2010 Orders Only [facility] Fat igue; [facility] Family history of thyroid di noellee [facility], [address] [place] [address] Social History Tobacco Use [...] athologist Signature TSH 1.47 0.4 - 5.0 [facility] [place]/L [facility] LAB Specimen Anatomical Collection Method Collection Time Receive d Time (Source) Location / / Volume Laterality Blood specimen 09/17/2010 2:04 PM 011 2:06 (specimen) CDT PM CDT Esmer Roland MD LAB - BLOOD ORDERABLES Performing Organization Address City/State/ZIP Code Phon e Number [facility] [address] [place] [address] [facility] documented in this encounter Visit Diagnoses Diagnosis Fatigue Other malaise and fatigue Family history of thyroid disease Family history of other endocrine and me tabolic diseases documented in this encounter Care Teams Fundraising Assistant Relationship Specialty Start Date End Date Melvin Palacios MD PCP - General 06/22/99 09/20/10 [address] [place] [address] Esmer Roland MD PCP - General Family Practice 09/21/10 01/29/17 documented as of this encounter
--- OUTSIDE RECORDS SUMMARY | 2022-05-20 09:05 | XMS_ITS | Encounter Summary ---
:1975 Author Organization [place] Address [address] [place] [address] Care Team Providers Name Role Phone Fawad Roland MD Primary Care Provider [phone] Reason for Visit Reason Comments Lesion Removal Mole removal right forearm. Encounter Details Date Type Department Care Team Description 09/21/[address] 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 SA/imani 09-24-10 TESTING LAB LOCATION: [address] ??[phone] COLLECTION SITE: Client: [facility] Location: [facility] (R) Specimen Anatomical Collection [...] d documented in this encounter Care Teams Stand In Relationship Specialty Start Date End Date Fawad Roland MD PCP - General Family Practice 09/21/10 01/29/17 documented as of this encounter
--- OUTSIDE RECORDS SUMMARY | 2022-05-20 09:05 | XMS_ITS | Encounter Summary ---
:1975 Author Organization [place] Address [address] [place] [address]. [place] [address] Care Team Providers Name Role Phone Melvin Palacios MD Primary Care Provider Encounter Details Date Type Department Care Team Description 07/06/2010 Historic Notes INTERFACED REPORT James Bautista MD [address] [place] [address] (Wo rk) Social History Tobacco [...] on filedocumented in this encounter Care Teams Strap Sewer Relationship Specialty Start Date End Date Melvin Palacios MD PCP - General 06/22/99 09/20/10 [address] [id number] documented as of this encounter
--- OUTSIDE RECORDS SUMMARY | 2022-05-20 09:05 | XMS_ITS | Encounter Summary ---
:1975 Author Organization [place] Address [address] [place] [address] Care Team Providers Name Role Phone Esmer Roland MD Primary Care Provider [phone] Reason for Visit Reason Comments Radiology Visit Encounter Details Date Type Department Care Team Description 12/13/2010 Orders Only [facility] Clinic Rig ht foot pain (Primary [place] Dx) [facility], [address] [place] [address] Social History Tobacco Use [...] limb documented in this encounter Care Teams Craft Recruiter Relationship Specialty Start Date End Date Esmer Roland MD PCP - General Family Practice 09/21/10 01/29/17 documented as of this encounter
--- OUTSIDE RECORDS SUMMARY | 2022-05-20 09:05 | XMS_ITS | Encounter Summary ---
:1975 Author Organization [place] Address [address] [place] [address]. [place] [address] Care Team Providers Name Role Phone Melvin Palacios MD Primary Care Provider Encounter Details Date Type Department Care Team Description 07/02/2010 Historic Notes INTERFACED REPORT Brian Shukla MD [address] [facility] [address] [place], [place] [address] (Wo rk) Social History Tobacco Use Types [...] on filedocumented in this encounter Care Teams Start Up Specialist Relationship Specialty Start Date End Date Melvin Palacios MD PCP - General 06/22/99 09/20/10 [address] [id number] documented as of this encounter
--- OUTSIDE RECORDS SUMMARY | 2022-05-20 09:05 | XMS_ITS | Encounter Summary ---
:1975 Author Organization [place] Address [address] [place] [address] Care Team Providers Name Role Phone Melvin Palacios MD Primary Care Provider Encounter Details Date Type Department Care Team Description 07/02/2010 Historic Notes INTERFACED REPORT James Bautista MD [address] [facility]. [address] [place] [address] (Wo rk) Social History Tobacco [...] on filedocumented in this encounter Care Teams Project Administrator Relationship Specialty Start Date End Date Melvin Palacios MD PCP - General 06/22/99 09/20/10 [address] [address] documented as of this encounter
--- OUTSIDE RECORDS SUMMARY | 2022-05-20 09:05 | XMS_ITS | Encounter Summary ---
:1975 Author Organization [place] Address [address] [place] [address] Care Team Providers Name Role Phone Esmer Roland MD Primary Care Provider Encounter Details Date Type Department Care Team Description 12/30/[address] [facility] [...] Signature Troponin I 0.00 0.00 - 0.10 [facility] ug/[facility] LAB Specimen Anatomical Collection Method Collection Time Receive d Time (Source) Location / / Volume Laterality 12/30/2010 3:28 PM 1 3:55 CDT PM CDT Esmer Roland MD LAB - ENTER/EDIT POCT Performing Organization Address City/[facility] Phon e [facility] [address], [place] [address] [facility] LAB Troponin I (12/30/2010 1:25 PM CDT) [facility] Method Time Signature Troponin I ES <0.012 0.000 - [place] Reviewed, acceptable 0.034 [facility] LAB Specimen Anatomical Collection Method Collection Time Receive d Time (Source) Location / / Volume Laterality 12/30/2010 1:25 PM 1 3:11 CDT PM CDT Esmer Roland MD LAB - BLOOD ORDERABLES Performing Organization Address City/[facility] Phon e [facility] [address], [place] [address] [facility] (ABNORMAL) Basic metabolic panel (12/30/2010 1:25 PM CDT) athologist Signature Sodium 140 133 - 144 [place] mmol/L [facility] LAB Potassium 4.0 3.4 - 5.3 [place] mmol/L [facility] Chloride 107 94 - 109 [place] mmol/L [facility] Carbon Dioxide 24 20 - 32 [place] mmol/L [facility] Anion Gap 8 6 - 17 [place] mmol/L [facility] Glucose 107 (H) 60 - 99 [place] mg/dL [facility] Urea Nitrogen 9 5 - 24 [place] mg/dL [facility] Creatinine 0.77 0.52 - [place] 1.04 mg/dL [facility] GFR Estimate 86 >60 [place] mL/min/1.[address] LAB GFR Estimate If >90 >60 [place] Black mL/min/1.[address] LAB Calcium 8.4 (L) 8.5 - 10.4 [place] mg/dL [facility] LAB Specimen Anatomical Collection Method Collection Time Receive d Time (Source) Location / / Volume Laterality 12/30/2010 1:25 PM 1 3:11 CDT PM CDT Esmer Roland MD LAB - BLOOD ORDERABLES Performing Organization Address City/[facility]/ZIP [place] [address], [place] [address] [facility] INR (12/30/2010 1:25 PM CDT) P athologist Signature INR 0.91 0.86 - 1.14 [facility] Specimen Anatomical Collection Method Collection Time Receive d Time (Source) Location / / Volume Laterality 12/30/2010 1:25 PM 1 2:07 CDT PM CDT Martin Blair MD LAB - BLOOD ORDERABLES Performing Organization Address City/[facility]/ZIP [place] [address], [place] [address] [facility] LAB (ABNORMAL) CBC with platelets differential (12/30/2010 1:25 PM CDT) Patholo gist Method Time Signature WBC 5.1 4.0 - [place] 11.0 [facility] 10e9/L [facility] LAB RBC Count 4.29 3.8 - 5.2 [place] 10e12/L [facility] Hemoglobin 12.9 11.7 - [place] 15.7 g/dL [facility] Hematocrit 38.2 35.0 - [place] 47.0 % [facility] MCV 89 78 - 100 [place] fl [facility] MCH 30.1 26.5 - [facility] 33.0 pg [facility] MCHC 33.8 31.5 - [place] 36.5 g/dL [facility] RDW 12.8 10.0 - [facility] 15.0 % [facility] Platelet Count 230 150 - 450 [place] 10e9/L [facility] Diff Method Automated [facility] LAB % Neutrophils 56.7 40 - 75 % [facility] % Lymphocytes 23.9 20 - 48 % [facility] % Monocytes 14.9 (H) 0 - 12 % [facility] % Eosinophils 3.7 0 - 6 % [facility] % Basophils 0.8 0 - 2 % [facility] Absolute 2.9 1.6 - 8.3 [place] Neutrophil 10e9/L [facility] Absolute 1.2 0.8 - 5.3 [place] Lymphocytes 10e9/L [facility] Absolute 0.8 0.0 - 1.3 [place] Monocytes 10e9/L [facility] Absolute 0.2 0.0 - 0.7 [place] Eosinophils 10e9/L [facility] Absolute 0.0 0.0 - 0.2 [place] Basophils [address] [place] [address] LAB Specimen Anatomical Collection Method Collection Time Receive d Time (Source) Location / / Volume Laterality 12/30/2010 1:25 PM 1 2:07 CDT PM CDT Martin Blair MD LAB - BLOOD ORDERABLES Performing Organization Address City/[facility]/ZIP [facility] Phon e Vicki Rodgers [place] [address], [place] [address] [facility] D dimer quantitative (12/30/2010 1:25 PM CDT) P athologist Signature D Dimer 0.4 0.0 - 0.50 [facility] ug/ml [facility] LAB Specimen Anatomical Collection Method Collection Time Receive d Time (Source) Location / / Volume Laterality 12/30/2010 1:25 PM 1 2:07 CDT PM CDT Martin Blair MD LAB - BLOOD ORDERABLES Performing Organization Address City/[facility]/ZIP [facility] Phon e Number [place] [address], [place] [address] [facility] documented in this encounter Visit Diagnoses Not on filedocumented in this encounter Care Teams Densitometer Reader Relationship Specialty Start Date End Date Esmer Roland MD PCP - General Family Practice 09/21/10 01/29/17 documented as of this encounter
--- OUTSIDE RECORDS SUMMARY | 2022-05-20 09:05 | XMS_ITS | Encounter Summary ---
:1975 Author Organization [place] Address [address] [facility] [place] [address] Care Team Providers Name Role Phone Melvin [...] as of this encounter Progress Notes Interface, Log Grader - 08/23/2010 10:32 PM CDT Clinical Clinic Lpn Note - :: Met with patient to dicuss her treatment plan and outpatient supports. She spoke with the crm analyst of her [employer] and will now join a divorce care group to help her move on after her divorce. She and the boys will be living with her parents until she feels more stable. She is not suicidal today and seems to be looking forward to the [facility] divorce group. She found out that a [employer] employee donated some PTO time to her and she will apply for short-term disability. Pt would like to discharge on evening so she will discuss this with Dr. Rose. Pts discharge paperwork is completed. NEEMA Bledsoe (Clinical Clinic Lpn)[Signed 17:11] Authored: Clinical Clinic Lpn Note documented in this encounter Plan of Treatment Not on filedocumented as of this encounter Visit Diagnoses Not on filedocumented in this encounter Care Teams Eeler Relationship Specialty Start Date End Date Melvin Palacios MD PCP - General 06/22/99 09/20/10 [address] [id number] documented as of this encounter
--- OUTSIDE RECORDS SUMMARY | 2022-05-20 09:05 | XMS_ITS | Encounter Summary ---
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 trachomatis rRNA by container finisher mediated amplification. [facility] Trachomatis A negative result by transc ription mediated amplification does not preclude the [place] PCR presence of C. trachomatis infection because results are dependent on proper CAMPUS LABS and adequate collection, absence of inhibitors, and suffici ent rRNA to be detected. Specimen Anatomical Collection Method Collection Time Receive d Time (Source) Location / / Volume Laterality 10/12/2010 8:48 AM 1 8:50 CDT AM CDT Esmer Roland MD LAB - MICRO ORDERABL ES Performing Organization Address City/[facility]/ZIP Code Phon e Number [address] LAB [facility] Neisseria gonorrhoeae PCR (10/12/2010 8:48 AM CDT) Component Value Ref Test Analysis Performed At [facility] Method Time Signature Specimen Vagina [facility] LAB N Gonorrhea Negative for N. gonorrhoeae rRNA by container finisher mediated amplification. [facility] PCR A negative result by transc ription mediated amplification does not preclude the [facility] presence of N. gonorrhoeae infection because re sults are dependent on proper CAMPUS LABS and adequate collection, absence of inhibitors, and suffici ent rRNA to be detected. Specimen Anatomical Collection Method Collection Time Receive d Time (Source) Location / / Volume Laterality 10/12/2010 8:48 AM 1 8:50 CDT AM CDT Esmer Roland MD LAB - MICRO GENERAL ORDERABL ES Performing Organization Address City/[facility]/ZIP Code Phon e Number [address] LAB [facility] Wet prep (10/12/2010 8:48 AM CDT) Component Value Ref Test Analysis Performed At Patholo gist Range Method Time Signature Specimen Vagina [place] Description [facility] LAB Wet Prep No Trichomonas seen [place] No clue cells seen [place] No yeast seen [facility] LAB Micro Report FINAL [place] Status 10/12/2010 [facility] LAB Specimen Anatomical Collection Method Collection Time Receive d Time (Source) Location / / Volume Laterality 10/12/2010 8:48 AM 1 8:50 CDT AM CDT Esmer Roland MD LAB - MICRO GENERAL ORDERABL ES Performing Organization Address City/State/ZIP Code Phon e Number [facility] [place] [address] [facility] documented in this encounter Visit Diagnoses Diagnosis Vaginitis - Primary Vaginitis and vulvovaginitis, unspecifie d documented in this encounter Care Teams Forensic Anthropologist Relationship Specialty Start Date End Date Esmer Roland MD PCP - General Family Practice 09/21/10 01/29/17 documented as of this encounter
--- OUTSIDE RECORDS SUMMARY | 2022-05-20 09:05 | XMS_ITS | Encounter Summary ---
:1975 Author Organization [place] Address [address] [place] [address]. [place] [address] Care Team Providers Name Role Phone Melvin Palacios MD Primary Care Provider Encounter Details Date Type Department Care Team Description 07/03/2010 Historic Notes INTERFACED REPORT James Bautista MD [address] [place] [address] (Wo rk) Social History Tobacco [...] on filedocumented in this encounter Care Teams Caponizer Relationship Specialty Start Date End Date Melvin Palacios MD PCP - General 06/22/99 09/20/10 [address] [id number] documented as of this encounter
--- OUTSIDE RECORDS SUMMARY | 2022-05-20 09:06 | XMS_ITS | Encounter Summary ---
:1975 Author Organization [place] Address [address] [place] [address] Care Team Providers Name Role Phone Melvin Palacios MD Primary Care Provider Reason for Visit Reason Onset Date Comments Sinus Problem 06/11/2010 Sinus infection Encounter Details Date Type Department Care Team Description 06/11/2010 Telephone [facility] Melvin Palacios MD Sinus Problem (Sinus Clinic [place] [address] [place] infection) [address] [id number] [phone] Social History Tobacco Use Types Packs/Day Years [...] start the abx, that would be best ERENCE COORDINATOR Telephone Encounter - Mayela Reese - 06/11/2010 [...] an antibiotic for her. Mayela Reese RN ERENCE COORDINATOR documented in this encounter Plan of Treatment Not on filedocumented as of this encounter Visit Diagnoses Diagnosis Acute maxillary sinusitis - Primary documented in this encounter Care Teams Engineer Booster And Exhauster Relationship Specialty Start Date End Date Melvin Palacios MD PCP - General 06/22/99 09/20/10 [address] [phone] documented as of this encounter
--- OUTSIDE RECORDS SUMMARY | 2022-05-20 09:06 | XMS_ITS | Encounter Summary ---
:1975 Author Organization [place] Address [address] [place] [address] Care Team Providers Name Role Phone Melvin Palacios MD Primary Care Provider Reason for Visit Reason Onset Date Comments Refill Request 07/29/2009 Encounter Details Date Type Department Care Team Description 07/29/2009 MyC Refill [facility] Zena Palacios MD Refill Request [address] [phone] (W ork) [address] [phone] Social History Tobacco Use Types Packs/Day Years [...] visit: adjustment disorder w/anxiety Date last filled: [id number] KLONOPIN IS NOT A PSO MED FILLED OMEPRAZOLE PER PSO Laina Pickett RN LE FURNACE TENDER Telephone Encounter - Melissa Pickett - 07/31/2009 11:31 AM RABBLE FURNACE TENDER Message from [facility]: Dariana Osman would like a refill of the following medications: OMEPRAZOLE 40 MG OR CPDR [Melvin Palacios MD] KLONOPIN 1 MG OR TABS [Melvin Palacios MD] Preferred pharmacy: [facility] Comment: Dr Palacios - I have noticed a little more use than PRN for my Klonopin and Omeprazole. It seems to be the week when the boys are with their father.Dariana LE FURNACE TENDER documented in this encounter Plan of Treatment Not on filedocumented as of this encounter Visit Diagnoses Diagnosis Gastropareses Gastroparesis GERD (gastroesophageal reflux disease) Esophageal reflux Nausea Nausea alone Adjustment disorder with anxiety documented in this encounter Care Teams Stewardess Supervisor Relationship Specialty Start Date End Date Melvin Palacios MD PCP - General 06/22/99 09/20/10 [address] [phone] documented as of this encounter
--- OUTSIDE RECORDS SUMMARY | 2022-05-20 09:06 | XMS_ITS | Encounter Summary ---
:1975 Author Organization [place] Address [address] [place] [address] Care Team Providers Name Role Phone Melvin Palacios MD Primary Care Provider Encounter Details Date Type Department Care Team Description 07/11/2009 Orders Only [facility] Examination [facility], [address] [place] [address] Social History Tobacco Use [...] Routine Physical Re sults for this PLATELETS CLINICAL ADMINISTRATOR Examination procedure are i n the results section. HCL COMPREHENSIVE Routine 07/11/2009 9:48 AM Routine Physical Results for this METABOLIC PANEL CLINICAL ADMINISTRATOR Examination procedure ar e in the results section. HCL TSH W/FREE T4 Routine 07/11/2009 9:48 AM Routine Physical Results for this REFLEX CLINICAL ADMINISTRATOR Examination procedure are i n the results section. CL AFF A.M.A. LIPID Routine 07/11/2009 9:48 AM Routine Physica l Results for this PANEL CLINICAL ADMINISTRATOR Examination procedure are i n the results section. documented in this encounter Results CBC WITH PLATELETS (07/11/2009 9:48 AM CLINICAL ADMINISTRATOR) athologist Signature WBC 5.5 4.0 - 11.0 [place] 10e9/L [facility] RBC Count 4.68 3.8 - 5.2 [place] 10e12/L [facility] Hemoglobin 14.3 11.7 - [facility] 15.7 g/dL [facility] Hematocrit 42.4 35.0 - [facility] 47.0 % [facility] MCV 91 78 - 100 [place] fl [facility] MCH 30.6 26.5 - [facility] 33.0 pg [facility] MCHC 33.7 31.5 - [facility] 36.5 g/dL [facility] RDW 12.4 10.0 - [facility] 15.0 % [facility] Platelet Count 275 150 - 450 [place] 10e9/L [facility] Specimen Anatomical Collection Method Collection Time Receive d Time (Source) Location / / Volume Laterality 07/11/2009 9:48 AM 0 9:51 CLINICAL ADMINISTRATOR AM CLINICAL ADMINISTRATOR Aleksandra Jimenez PA-C LABORATORY Performing Organization Address City/State/ZIP Code Phon e Number [facility] [address] [place] [address] [facility] TSH W/FREE T4 REFLEX (07/11/2009 9:48 AM CLINICAL ADMINISTRATOR) athologist Signature TSH 1.36 0.4 - 5.0 [place] [facility] LAB Specimen Anatomical Collection Method Collection Time Receive d Time (Source) Location / / Volume Laterality 07/11/2009 9:48 AM 0 9:51 CLINICAL ADMINISTRATOR AM CLINICAL ADMINISTRATOR Aleksandra Jimenez PA-C LABORATORY Performing Organization Address City/State/ZIP Code Phon e Number [facility] [address] [place] [address] [facility] A.M.A. COMPREHENSIVE MET.PANEL (07/11/2009 9:48 AM CLINICAL ADMINISTRATOR) athologist Signature Sodium 143 133 - 144 [place] mmol/L CLINIC LAB Potassium 4.4 3.4 - 5.3 [place] mmol/L CLINIC LAB Chloride 105 94 - 109 [place] mmol/L CLINIC LAB Carbon Dioxide 26 20 - 32 [place] mmol/L CLINIC LAB Anion Gap 11 6 - 17 [place] mmol/L [facility]INIC LAB Glucose 85 60 - 99 [place] mg/dL CLINIC LAB Urea Nitrogen 9 5 - 24 [facility] mg/dL [facility] Creatinine 0.91 0.52 - [facility] 1.04 mg/dL CLINIC LAB Comment: New IDMS-traceable calibration beginning 10/08/07 GFR Estimate 72 >60 mL/min/1.7m2 [place] E AGAN [facility] GFR Estimate If Black 87 >60 mL/min/1.7m2 [facility] Calcium 9.5 8.5 - 10.4 mg/dL [place] E[facility]A N [facility] Bilirubin Total 0.7 0.2 - 1.3 mg/dL [facility] Albumin 4.7 3.9 - 5.1 g/dL [facility] Comment: Reference range changed on 02/08. Protein Total 7.5 6.8 - 8.8 g/dL [place] [facility] Comment: As of 07, reference range reflects plasma specimen type. Alkaline Phosphatase 46 40 - 150 U/L [facility] CLINIC LAB ALT <6 0 - 50 U/L [facility] CL[facility] LAB AST 13 0 - 45 U/L [facility] CLIN IC LAB Specimen Anatomical Collection Method Collection Time Receive d Time (Source) Location / / Volume Laterality 07/11/2009 9:48 AM 0 9:51 CLINICAL ADMINISTRATOR AM CLINICAL ADMINISTRATOR Aleksandra Jimenez PA-C LABORATORY Performing Organization Address City/State/ZIP Code Phon e Number [facility] [address] [place] [address] [facility] (ABNORMAL) A.M.A. LIPID PANEL (07/11/2009 9:48 AM CLINICAL ADMINISTRATOR) athologist Signature Cholesterol 156 0 - 200 [facility] mg/dL CLINIC LAB Comment: LDL Cholesterol [...] mg/dL. Triglycerides 117 0 - 150 mg/dL [facility] HDL Cholesterol 42 (L) 50 - 110 mg/dL [facility] LDL Cholesterol Calculated 91 0 - 129 mg/dL [facility] Comment: LDL Cholesterol is the primary guide to therapy: LDL-cholesterol goal in high risk patients is <100 mg/dL and in very high risk patients is <70 mg/dL. VLDL-Cholesterol 23 0 - 30 mg/dL [facility] Cholesterol/HDL Ratio 3.7 0.0 - 5.0 [facility] Specimen Anatomical Collection Method Collection Time Receive d Time (Source) Location / / Volume Laterality 07/11/2009 9:48 AM 0 9:51 CLINICAL ADMINISTRATOR AM CLINICAL ADMINISTRATOR Aleksandra Jimenez PA-C LABORATORY Performing Organization Address City/State/ZIP Code Phon e Number [facility] [address] [place] [address] [facility] documented in this encounter Visit Diagnoses Diagnosis Routine physical examination Routine general medical examination at a health care facility documented in this encounter Care Teams Cnc Mechanic Relationship Specialty Start Date End Date Melvin Palacios MD PCP - General 06/22/99 09/20/10 [address] [phone] documented as of this encounter
--- OUTSIDE RECORDS SUMMARY | 2022-05-20 09:06 | XMS_ITS | Encounter Summary ---
:1975 Author Organization [place] Address [address] [place] [address] Care Team Providers Name Role Phone Melvni Palacios MD Primary Care Provider Encounter Details Date Type Department Care Team Description 07/11/2009 Orders Only [facility] Melvin Palacios MD Routine Physical Clinic [place] [address] [place] [address] Examination (Primary [facility]) [address] [place] [phone] Social History Tobacco Use Types Packs/Day Years [...] facility documented in this encounter Care Teams Salesperson Flowers Relationship Specialty Start Date End Date Melvin Palacios MD PCP - General 06/22/99 09/20/10 [address] [place] [address] documented as of this encounter
--- OUTSIDE RECORDS SUMMARY | 2022-05-20 09:06 | XMS_ITS | Encounter Summary ---
:1975 Author Organization [place] Address [address] [place] [address] Care Team Providers Name Role Phone Melvin Palacios MD Primary Care Provider Reason for Visit Reason Onset Date Comments Refill Request 06/05/2010 ZOLPIDEM 10MG Encounter Details Date Type Department Care Team Description 06/05/2010 Refill [facility] Lissette Hobbs, Refill Request Clinic Carmen Brewer MD (ZOLPIDEM 10MG) [address] [place], [place] [address] [facility] [address] [place] [address] [place] [address] (Wo rk) Social History Tobacco Use Types [...] AM CST Walked over to RISHI Bruce H CUTTER CLUTCH Telephone Encounter - Stacey Torres - 06/05/2010 2:07 PM CST Last OV: 08/16/09 with CL Reason for visit: adjustment disorder Date last filled: see below Unable to fill PSO Stacey Torres RN H CUTTER CLUTCH Telephone Encounter - Kristine Bermudez - 06/05/2010 1:47 PM CST Last filled 10/22/09 Qty 30 Kristine [facility] RX H [facility]TER [facility]UTCH documented in this encounter Plan of Treatment Not on filedocumented as of this encounter Visit Diagnoses Diagnosis Adjustment disorder with anxiety documented in this encounter Care Teams Uc Architect Relationship Specialty Start Date End Date Melvin Palacios MD PCP - General 06/22/99 09/20/10 [address] [phone] documented as of this encounter
--- OUTSIDE RECORDS SUMMARY | 2022-05-20 09:06 | XMS_ITS | Encounter Summary ---
:1975 Author Organization [place] Address [address] [place] [address] Care Team Providers Name Role Phone Melvin Palacios MD Primary Care Provider Reason for Visit Reason Onset Date Comments Refill Request 09/09/2009 ZOLPIDEM 10MG Encounter Details Date Type Department Care Team Description 09/09/2009 Refill [facility] Melvin Palacios MD Refill Request (ZOLPIDEM [facility] [place] [address] 10MG) [address] [place], [place] [address] [phone] Social History Tobacco Use Types Packs/Day Years [...] ry documented in this encounter Care Teams Warehouse Delivery Manager Relationship Specialty Start Date End Date Melvin Palacios MD PCP - General 06/22/99 09/20/10 [address] [phone] documented as of this encounter
--- OUTSIDE RECORDS SUMMARY | 2022-05-20 09:06 | XMS_ITS | Encounter Summary ---
:1975 Author Organization [place] Address [address] [place] [address] Care Team Providers Name Role Phone Melvin Palacios MD Primary Care Provider Reason for Visit Reason Onset Date Comments Refill Request 02/26/2010 VITAMIN D 50,000 Encounter Details Date Type Department Care Team Description 02/26/2010 Refill [facility] Melvin Palacios MD Refill Request ([facility] [place] [address] [place] D 50,000) [address] [place], [place] [address] [phone] Social History Tobacco Use Types Packs/Day Years [...] on filedocumented in this encounter Care Teams Front End Driver Relationship Specialty Start Date End Date Melvin Palacios MD PCP - General 06/22/99 09/20/10 [address] [place] [id number] documented as of this encounter
--- OUTSIDE RECORDS SUMMARY | 2022-05-20 09:06 | XMS_ITS | Encounter Summary ---
:1975 Author Organization [place] Address [address] [place] [address] Care Team Providers Name Role Phone Melvin Palacios MD Primary Care Provider Encounter Details Date Type Department Care Team Description 10/19/2009 Orders Only [facility] DEP RESSIVE DISORDER NEC; [facility] Adjustment Disorder with Dep ressed Mood [facility], [address] [place] [address] Social History Tobacco Use [...] CDT) P athologist Signature Progesterone 0.8 ng/mL [facility] Comment: Progesterone Reference Range [...] Aleksandra Jimenez PA-C LABORATORY Performing Organization Address City/[facility]/ZIP Code Phon e Number [facility] [address] LABS VITAMIN B12, SERUM (10/19/2009 11:04 AM CDT) athologist Signature Vitamin B12 285 >210 pg/mL [facility] Comment: Interp: [phone] = Normal Specimen Anatomical Collection Method Collection Time Receive d Time (Source) Location / / Volume Laterality 10/19/2009 11:04 10/19/2009 AM CDT 11:06 AM CDT Aleksandra Jimenez PA-C LABORATORY Performing Organization Address City/State/ZIP Code Phon e Number [facility] [address] LABS (ABNORMAL) VITAMIN D DEFICIENCY SCREENING (10/19/2009 11:04 AM CDT) Component Value Ref Test Analysis Performed At Patholo gist Range Method Time Signature 25 [place] Vit D2 <5 ug/L [facility] 25 [place] Vit D3 24 ug/L [facility] 25 [place] Vit D <29 30 - 75 [facility] total Season, race, dietary intake, and treatm ent affect the concentration of ug/L [facility]ITY 13-rjldxix-Ivubvfi D. Values may decrease during odalis er months and increase CAMPUS LABS during summer months. Values less than 30 ug/L may indicate Vitamin D deficiency. (L) Specimen Anatomical Collection Method Collection Time Receive d Time (Source) Location / / Volume Laterality 10/19/2009 11:04 10/19/2009 AM CDT 11:06 AM CDT Aleksandra Jimenez PA-C LABORATORY Performing Organization Address City/[facility]/ZIP Code Phon e Number [facility] 500 [place] [address] [facility] ESTROGENS, TOTAL, SERUM (10/19/2009 11:04 AM CDT) [facility] gist Method Time Signature Estrogen (Note) [facility] Total Test ?Result ??Units [place] Estrogen, Total, Serum ?254 ? pg/mL [facility] Reference Range Ranges For Total Estrogen: ??Early Follicular Phase: ?? 70-400 pg/mL ??Late Follicular Phase: ?? 100-900 pg/ml ??Luteal Phase: ? 70-700 pg/mL ??Postmenopausal: ? < or = 130 pg/mL The total estrogen assay is not recommended for use in pre-p ubertal children. Asayed at: [place] [address] Specimen Anatomical Collection Method Collection Time Receive d Time (Source) Location / / Volume Laterality 10/19/2009 11:04 10/19/2009 AM CDT 11:06 AM CDT Aleksandra Jimenez PA-C LABORATORY Performing Organization Address City/[facility] Code Phon e Number [facility] [address] [place] [address] [facility] documented in this encounter Visit Diagnoses Diagnosis DEPRESSIVE DISORDER NEC Depressive disorder, not elsewhere class ified Adjustment disorder with depressed mood documented in this encounter Care Teams Wrapper Sheeter Relationship Specialty Start Date End Date Melvin Palacios MD PCP - General 06/22/99 09/20/[address] [place] [address] documented as of this encounter
--- OUTSIDE RECORDS SUMMARY | 2022-05-20 09:06 | XMS_ITS | Encounter Summary ---
:1975 Author Organization [place] Address [address] [place] [address]. [place] [address] Care Team Providers Name Role Phone Melvin Palacios MD Primary Care Provider Encounter Details Date Type Department Care Team Description 07/01/2010 Emergency room [facility]al Ruffin Results [address] [place] [address] (Wo rk) Social History Tobacco Use Types Packs/Day Years Used Date Smoking Tobacco: Every Day Comments: 1-2 every other day Alcohol Use Standard Drinks/Week Comments Yes 0 (1 standard drink = 0.6 oz pure alcoho l) 1 qo week Sex Assigned at Date Recorded Not on file documented as of this encounter Progress Notes Ángela Rodriguez - 07/26/2010 11:56 PM PHLEBOTOMY SUPERVISOR FINAL ADDENDUM TO T-NOTE CHIEF COMPLAINT: Depression [...] Liliya Hammonds, 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 Review of systems otherwise negative. 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 PHYSICAL EXAMINATION: VITAL [...] MD MT: TOSHA Name: DARIANA VALDEZ Account: [id number] : 1975 Visit Date: 07/01/2010 Document: [id number] cc: [facility] BOTOMY SUPERVISOR documented in this encounter Plan of Treatment Not on filedocumented as of this encounter Visit Diagnoses Not on filedocumented in this encounter Care Teams Order Manager Relationship Specialty Start Date End Date Melvin Palacios MD PCP - General 06/22/99 09/20/10 [address] [place] [id number] documented as of this encounter
--- OUTSIDE RECORDS SUMMARY | 2022-05-20 09:06 | XMS_ITS | Encounter Summary ---
:1975 Author Organization [place] Address [address] [place] [address] Care Team Providers Name Role Phone Melvin [...] as of this encounter Progress Notes Interface, Diesel Dinkey Engineer - 08/23/2010 10:44 PM CDT General Information - How to be Addressed Dariana - Eye Color brown - Hair Color brown - Cultural/Ethnic Background - Source of Information patient; family - Arrived From emergency department - Clothing Search completed, Moshe Coelho RN - Second Staff (name) Ernestine Marina RN - automobiles salesperson #1: Connie Earl - Relationship to Mother patient #1: - Phone 1: H. [phone] - Phone 2: C> [phone] - Patient's spoken language; Swazi or Bilingual communication style Advance Directive - [...] problems this hospitalization? - Specialty Liliya George SALES APPLICATIONS ENGINEER at [employer] Physicians/Other Providers - Do you have [place] Based restrictions for any of the following? [...] none Considerations - Developmental none Considerations - Episcopalian none Considerations Risk Assessment - Have you [...] yes (describe), My kids and going to [employer]ast[employer] and your life that is I enjoy [...] the past 30 days? - Has your jitney driver's never revoked license been revoked because [...] Legal History, Mutuality/Individual Preferences NEEMA MARTE (Clinical Diplomatic Interpreter/Translator)[Signed 11:09] Authored: General Information, Health and Illness documented in this encounter Plan of Treatment Not on filedocumented as of this encounter Visit Diagnoses Not on filedocumented in this encounter Care Teams Labor Contract Analyst Relationship Specialty Start Date End Date Melvin Palacios MD PCP - General 06/22/99 09/20/10 [address] [place] [id number] documented as of this encounter
--- OUTSIDE RECORDS SUMMARY | 2022-05-20 09:06 | XMS_ITS | Encounter Summary ---
:1975 Author Organization [place] Address [address] [place] [address] Care Team Providers Name Role Phone Melvin Palacios MD Primary Care Provider Encounter Details Date Type Department Care Team Description 02/26/2010 [facility] Vit jeffries D Deficiency [facility], [address] [place] [address] Social History Tobacco Use [...] Signature 25 [place] Vit D2 47 ug/L [facility] 25 [place] Vit D3 13 ug/L [facility] 25 OH Vit D 60 30 - 75 [facility] total ug/L CAMPUS LABS Comment: Season, race, dietary intake, and treatm ent affect the concentration of 10-jvdrvda-Mviyoit D. Values may decrea se during winter months and increase during summer months. Values less than 30 ug/L may indicate Vitamin D deficiency. Specimen Anatomical Collection Method Collection Time Receive d Time (Source) Location / / Volume Laterality 02/26/2010 4:05 PM 0 4:07 CDT PM CDT Aleksandra Jimenez PA-C LABORATORY Performing Organization Address City/State/ZIP Code Phon e Number [facility] 500 [place] [address] [facility] documented in this encounter Visit Diagnoses Diagnosis Vitamin D deficiency Unspecified vitamin D deficiency documented in this encounter Care Teams Ssds Mk 2 Advanced Operator Relationship Specialty Start Date End Date Melvin Palacios MD PCP - General 06/22/99 09/20/10 [address] [place] [address] documented as of this encounter
--- OUTSIDE RECORDS SUMMARY | 2022-05-20 09:06 | XMS_ITS | Encounter Summary ---
:1975 Author Organization [place] Address [address] [place] [address] Care Team Providers Name Role Phone Melvin Palacios MD Primary Care Provider Reason for Visit Reason Comments Forms Encounter Details Date Type Department Care Team Description 08/16/2009 Office Visit [facility] Melvin Palacios MD Adjustment Disorder with Depressed Mood; Clinic [address] Migraine Headaches [address] [place], [place] [address] [phone] Social History Tobacco Use Types Packs/Day Years [...] Comments Blood Pressure 118/65 08/16/2009 2:54 PM INFORMATION CLERK [employer] Pulse 82 08/16/2009 2:54 PM INFORMATION CLERK [employer] Temperature - - Respiratory Rate - - Oxygen Saturation - - Inhaled Oxygen Concentration - - Weight 69.9 kg (154 lb) 08/16/2009 2:54 PM INFORMATION [employer]ERK [employer] Height - - Body Mass Index 24.48 06/19/2009 3:40 PM INFORMATION CLERK [employer] documented in this encounter Progress Notes Melvin Palacios - 08/16/2009 3:16 PM CST Pt here for completion of two separate FMLA forms for migraine HAYES intermittent absence issues and 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 Her igraines have improved markedly as she has not had migraine in nearly 3 months. Pt is now in counselling at [facility] and has developed an excellent rapport with therapist. EXAM: PSYCH: euthymic. No violent ideation. No delusions or hallucinations. A/P; 1- Migraine HAYES hx. Stable. 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 Doing well. Maintain curent medications, her use of prn meds imarkedly reduced. No refill given today. F/u in 2 months. RMATION CLERK [employer] documented in this encounter Nursing Notes 08/16/2009 [...] cuff size regular HEALTH MAINTENANCE REVIEWED. Divine Coeras CMA documented in this encounter Plan of Treatment Not on filedocumented as of this encounter Visit Diagnoses Diagnosis Adjustment disorder with depressed mood Migraine headaches Migraine, unspecified, without mention o f intractable migraine without mention of status migrainosus documented in this encounter Care Teams Gas Maker Relationship Specialty Start Date End Date Melvin Palacios MD PCP - General 06/22/99 09/20/10 [address] [place] [phone] documented as of this encounter
--- OUTSIDE RECORDS SUMMARY | 2022-05-20 09:06 | XMS_ITS | Encounter Summary ---
:1975 Author Organization [place] Address [address] [place] [address] Care Team Providers Name Role Phone Melvin Palacios MD Primary Care Provider Reason for Visit Reason Onset Date Comments Refill Request 07/04/2009 CLONAZEPAM 1MG Refill Request 07/04/2009 AMBIEN Encounter Details Date Type Department Care Team Description 07/04/2009 Refill [facility] Melvin Palacios MD Refill Request [facility] [place] [address] (CLONAZEPAM 1MG); Refill [phone] [facility] Request (AMBIEN) [place] [address] [phone] Social History Tobacco Use Types Packs/Day Years [...] Unable to fill PSO Stacey Torres RN EMAN Telephone Encounter - Mary Monge - 07/04/2009 9:40 AM CST CLONAZEPAM LAST FILL DATE: 06/12/2009 LAST QTY: 30 [facility] AMBIEN LAST FILL DATE: 06/01/2009 LAST QTY: 30 [facility] EMAN documented in this encounter Plan of Treatment Not on filedocumented as of this encounter Visit Diagnoses Diagnosis Adjustment disorder with anxiety - Prima ry documented in this encounter Care Teams Accounting Director Relationship Specialty Start Date End Date Melvin Palacios MD PCP - General 06/22/99 09/20/10 [address] [place] [id number] documented as of this encounter
--- OUTSIDE RECORDS SUMMARY | 2022-05-20 09:06 | XMS_ITS | Encounter Summary ---
:1975 Author Organization [place] Address [address] [facility] [place] [address] Care Team Providers Name Role Phone Melvin Palacios MD Primary Care Provider Encounter Details Date Type Department Care Team Description 09/20/2009 Emergency room [facility] Harris Mcmahan MD Hospital Results [facility] [address] [place], [place] [address] (Wo rk) Social History Tobacco Use Types Packs/Day Years Used Date Smoking Tobacco: Every Day Comments: 1-2 every other day Alcohol Use Standard Drinks/Week Comments Yes 0 (1 standard drink = 0.6 oz pure alcoho l) 1 qo week Sex Assigned at Date Recorded Not on file documented as of this encounter Progress Notes Harris cMmahan - 09/21/2009 3:38 PM CDT FINAL CHIEF COMPLAINT: Left-sided abdominal pain. HISTORY OF PRESENT ILLNESS: Dariana Valdez is a 33-year-old female who developed onset of left-sided abdominal pain three days ago, tolerable until today when it became much worse and crampy. Her employer drove her to the ED, Dr. Hauser from [facility]. She states that she does not know [...] abdomen, just lateral to the umbilicus. SKIN: [place], warm, dry. EYES: Pupils are equal, round [...] SANDRO#[id number] Name: DARIANA VALDEZ MRN: [id number] Account: [id number] : 1975 Visit Date: 09/20/2009 Document: [id number] documented in this encounter Plan of Treatment Not on filedocumented as of this encounter Visit Diagnoses Not on filedocumented in this encounter Care Teams Varnish Maker Helper Relationship Specialty Start Date End Date Melvin Palacios MD PCP - General 06/22/99 09/20/10 [address] [place] [id number] documented as of this encounter
--- OUTSIDE RECORDS SUMMARY | 2022-05-20 09:06 | XMS_ITS | Encounter Summary ---
:1975 Author Organization [place] Address [address] [place] [address] Care Team Providers Name Role Phone Melvin Palacios MD Primary Care Provider Encounter Details Date Type Department Care Team Description 09/20/2009 Historic Results [facility] Royce Hauser [facility] Shane Garcia MD [address] [address] [address] [phone] [place], [place] [address] (Wo rk) Social History [...] Results Wet prep (09/20/2009 3:39 PM CDT) [facility] [employer] Method Time Signature Specimen Vagina MISYS Description [...] MICRO GENERA L ORDERABLES Performing Organization Address City/[facility]/ZIP Code Phon e Number MISYS Chlamydia trachomatis PCR (09/20/2009 3:39 PM CDT) Component Value Ref Test Analysis Performed At [facility] [employer] Range Method Time Signature Specimen Cervical MISYS Description Chlamydia Negative for C. MISYS Trachomatis PCR trachomatis rRNA by senior category manager mediated amplification. Comment: A negative result by senior category manager medi ated amplification does not preclude the [...] Neisseria gonorrhoeae PCR (09/20/2009 3:39 PM CDT) [facility] [employer] Method Time Signature Specimen Cervical MISYS Descrip N Gonorrhea Negative for N. MISYS PCR gonorrhoeae rRNA by senior category manager mediated amplification. Comment: A negative result by senior category manager medi ated amplification does not preclude the [...] on filedocumented in this encounter Care Teams Sash Finisher Relationship Specialty Start Date End Date Melvin Palacios MD PCP - General 06/22/99 09/20/10 [address] [place] [id number] documented as of this encounter
--- OUTSIDE RECORDS SUMMARY | 2022-05-20 09:06 | XMS_ITS | Encounter Summary ---
:1975 Author Organization [place] Address [address] [place] [address] Care Team Providers Name Role Phone Melvin Palacios MD Primary Care Provider Reason for Visit Reason Onset Date Comments Refill Request 10/23/2009 Sonu Encounter Details Date Type Department Care Team Description 10/23/2009 Refill [facility] Melvin Palacios MD Refill Request ([facility]IN [facility] [place] [address] Janie and anish) [address] [place] [address] [place] [phone] Social History Tobacco Use Types Packs/Day Years [...] Walked scripts for klonopin and zolpidem to [facility] pharmacy. Arlene Lopez RN Telephone Encounter - [...] KLONOPIN=07/31/09, AMBIEN=09/11/09 QTY: KLONOPIN=40, AMBIEN=30 Camilo Hammonds [facility] documented in this encounter Plan of Treatment Not on filedocumented as of this encounter Visit Diagnoses Diagnosis Adjustment disorder with anxiety - Prima ry documented in this encounter Care Teams Skidder Relationship Specialty Start Date End Date Melvin Palacios MD PCP - General 06/22/99 09/20/10 [address] [place] [address] [id number] documented as of this encounter
--- OUTSIDE RECORDS SUMMARY | 2022-05-20 09:06 | XMS_ITS | Encounter Summary ---
:1975 Author Organization [address] [place] [address] Care Team Providers Name Role Phone Melvin Palacios MD Primary Care Provider Encounter Details Date Type Department Care Team Description 07/01/2010 Historic Results [facility] Ángela Rodriguez Emergency Department MD Laly [address] [address] [place] [address] (Wo rk) Social History Tobacco [...] STAT 07/01/2010 7:20 PM Results for this [employer] DEVELOPER procedure are i n the results section. DRUG ABUSE SCREEN 8 Routine 07/01/2010 7:20 PM Re sults for this URINE (UR) [employer]ELOPER procedure are i n the results section. TSH WITH FREE T4 Routine 07/01/2010 6:40 PM Resul ts for this REFLEX [employer]ELOPER procedure are i n the results section. HEPATIC FUNCTION PANEL Routine 07/01/2010 6:40 PM Results for this [employer] DEVELOPER procedure are i n the results section. GGT Routine 07/01/2010 6:40 PM Results f or this [employer] DEVELOPER procedure are i n the results section. ETHYL ALCOHOL LEVEL STAT 07/01/2010 6:40 PM Re sults for this [employer] DEVELOPER procedure are i n the results section. ACETAMINOPHEN LEVEL STAT 07/01/2010 6:40 PM Re sults for this [employer] DEVELOPER procedure are i n the results section. BASIC METABOLIC PANEL STAT 07/01/2010 6:40 PM Results for this [employer] DEVELOPER procedure are i n the results section. CBC WITH PLATELETS Routine 07/01/2010 6:40 PM Res ults for this [employer] DEVELOPER procedure are i n the results section. documented in this encounter Results HCG qualitative urine (07/01/2010 7:20 PM MI[employer]OS[employer] D[employer]NAM[employer] DEVELOPER) P athologist Signature HCG Qual Urine Negative NEG [facility] Specimen Anatomical Collection Method Collection Time Receive d Time (Source) Location / / Volume Laterality 07/01/2010 7:20 PM 1 6:23 [employer] DEVELOPER PM [employer] DEVELOPER Ángela Rodriguez MD LAB - URINE ORDERABLES Performing Organization Address City/State/ZIP Code Phon e Number [place] (ABNORMAL) Drug abuse screen 8 urine (UR) (07/01/2010 7:20 PM [employer] DEVELOPER) Patholo gist Method Time Signature Amphetamine Qual [...] Volume Laterality 07/01/2010 7:20 PM 1 9:36 [employer] DEVELOPER PM [employer] DEVELOPER Ángela Rodriguez MD LAB - URINE ORDERABLES Performing Organization Address [facility] Code Phon e Number [place] Basic metabolic panel (07/01/2010 6:40 PM MI[employer]OS[employer] D[employer] DEVELOPER) P athologist Signature Sodium 141 133 - [...] Volume Laterality 07/01/2010 6:40 PM 1 6:23 [employer] DEVELOPER PM [employer] DEVELOPER Ángela Rodriguez MD LAB - BLOOD ORDERABLES Performing Organization Address [facility] Phon e Number [place] Acetaminophen level (07/01/2010 6:40 PM MI[employer]OS[employer] D[employer]NAM[employer] DEVELOPER) Analysis Performed At Patho logist Time Signature Acetaminophen <10 mg/L [facility] Level Specimen Anatomical Collection Method Collection Time Receive d Time (Source) Location / / Volume Laterality 07/01/2010 6:40 PM 1 6:23 [employer] DEVELOPER PM [employer] DEVELOPER Ángela Rodriguez MD LAB - BLOOD ORDERABLES Performing Organization Address [facility] Code Phon e Number [place] Alcohol ethyl (07/01/2010 6:40 PM MI[employer] DEVELOPER) P athologist Signature Ethanol g/dL <0.01 0.01 g/dL [facility] Specimen Anatomical Collection Method Collection Time Receive d Time (Source) Location / / Volume Laterality 07/01/2010 6:40 PM 1 6:23 [employer] DEVELOPER PM [employer] DEVELOPER Ángela Rodriguez MD LAB - BLOOD ORDERABLES Performing Organization Address City/State/ZIP Code Phon e Number [place] (ABNORMAL) Hepatic panel (07/01/2010 6:40 PM MI[employer]OS[employer]NAM[employer] DEVELOPER) Patholo gist Method Time Signature AST 22 [...] / Volume Laterality 07/01/2010 6:40 PM 1 [employer] DEVELOPER 11:58 PM [employer] DEVELOPER Ángela Rodriguez MD LAB - BLOOD ORDERABLES Performing Organization Address [facility]/ZIP Code Phon e Number [place] CBC with platelets (07/01/2010 6:40 PM MI[employer] DEVELOPER) P athologist Signature MCV 90 78 - [...] / Volume Laterality 07/01/2010 6:40 PM 1 [employer] DEVELOPER 11:58 PM [employer] DEVELOPER Ángela Rodriguez MD LAB - BLOOD ORDERABLES Performing Organization Address City/State/ZIP Code Phon e Number [place] GGT (07/01/2010 6:40 PM [employer] DEVELOPER) P athologist Signature GGT 16 0 - 40 U/L [facility] Specimen Anatomical Collection Method Collection Time Receive d Time (Source) Location / / Volume Laterality 07/01/2010 6:40 PM 1 [employer] DEVELOPER 11:58 PM [employer] DEVELOPER Ángela Rodriguez MD LAB - BLOOD ORDERABLES Performing Organization Address City/[facility] Phon e Number [place] TSH with free T4 reflex (07/01/2010 6:40 PM [employer] DEVELOPER) P athologist Signature TSH 1.64 0.4 - 5.0 [facility] mU/L Specimen Anatomical Collection Method Collection Time Receive d Time (Source) Location / / Volume Laterality 07/01/2010 6:40 PM 1 [employer] DEVELOPER 11:58 PM [employer] D[employer] DEVELOPER Ángela Rodriguez MD LAB - BLOOD ORDERABLES Performing Organization Address [facility] Phon e Number [facility] documented in this encounter Visit Diagnoses Not on filedocumented in this encounter Care Teams Scorer Single Relationship Specialty Start Date End Date Melvin Palacios MD PCP - General 06/22/99 09/20/10 [address] [id number] documented as of this encounter
--- OUTSIDE RECORDS SUMMARY | 2022-05-20 09:06 | XMS_ITS | Encounter Summary ---
:1975 Author Organization [facility] Address [address] [place] [address]. [place] [address] Care Team Providers Name Role Phone Melvin Palacios MD Primary Care Provider Reason for Visit Reason Comments Urgent Care UTI since fri Encounter Details Date Type Department Care Team Description 11/11/2009 Office Visit [facility] Whit Vasquez MD Dysuria (Primary Dx); Care 2019 E UTI (Urinary Tract Infection ) [address] [address] [place], [place] [phone] [address] Social History Tobacco Use Types Packs/Day [...] ONE TABLET DAILY ??? VITAMIN D (ERGOCALCIFEROL) [address] UNIT PO CAPS 1 CAPSULE WEEKLY for [...] Results URINE CULTURE (11/11/2009 2:21 PM CDT) [facility] gist Method Time Signature Specimen Midstream Urine [facility] Description [facility] Culture Micro 10 to 50,000 [facility] colonies/mL [facility] coli Micro Report FINAL [facility] Status 11/14/2009 [facility] Specimen Anatomical Collection [...] [facility] Vasquez MD LABORATORY Performing Organization Address City/[facility]/ZIP Code Phon e Number [facility] [address] [facility] SONJA Andres [address] [facility] (ABNORMAL) MICRO EXAM-URINE (11/11/2009 2:21 PM CDT) [facility] Method Time Signature WBC Urine >100 (A) 0 - 2 [place] /[facility] RBC Urine 10-25 (A) 0 - 2 [place] /[facility] Squamous Few FEW /LPF [place] Epithelial /LPF [facility] Urine LAB Renal Tub Epi Few (A) NEG /HPF [facility] Mucous Urine Present (A) NEG /LPF [facility] Specimen Anatomical Collection Method Collection Time Receive d Time (Source) Location / / Volume Laterality 11/11/2009 2:21 PM 0 2:27 CDT PM CDT [facility] Vasquez MD LABORATORY Performing Organization Address City/[facility]/ZIP Code Phon e Number [facility] [address] [facility] SONJA Juárez [address] [facility] (ABNORMAL) UA MICRO IF POSITIVE (11/11/2009 2:21 PM CDT) [facility] Method Time Signature Color Urine Yellow [facility] Appearance Urine Cloudy [facility] Glucose Urine Negative NEG mg/dL [facility] Bilirubin Urine Negative NEG [facility] Ketones Urine Trace (A) NEG mg/dL [facility] Specific Guys >1.030 1.003 - [place] Urine 1.035 [facility] Blood Urine Moderate (A) NEG [facility] pH Urine 5.5 5.0 - 7.0 [place] pH [facility] Protein Albumin 100 (A) NEG mg/dL [place] Urine [facility] Urobilinogen 1.0 0.2 - 1.0 [place] Urine EU/dL [facility] Nitrite Urine Negative NEG [facility] Leukocyte Moderate (A) NEG [place] Esterase Urine [facility] Source Midstream [place] Urine [facility] Specimen Anatomical Collection Method Collection Time Receive d Time (Source) Location / / Volume Laterality 11/11/2009 2:21 PM 11/11/201 0 2:27 CDT PM CDT [facility] Vasquez MD LABORATORY Performing Organization Address City/State/ZIP Code Phon e Number [facility] [address] [place] [address] [place] [address] [facility] documented in this encounter Visit Diagnoses Diagnosis Dysuria - Primary UTI (urinary tract infection) Urinary tract infection, site not specif ied documented in this encounter Care Teams Document Control Supervisor Relationship Specialty Start Date End Date Melvin Palacios MD PCP - General 06/22/99 09/20/10 [address] [id number] documented as of this encounter
--- OUTSIDE RECORDS SUMMARY | 2022-05-20 09:06 | XMS_ITS | Encounter Summary ---
:1975 Author Organization [facility] Address [address] [place] [address] Care Team Providers Name Role Phone Melvin Palacios MD Primary Care Provider Encounter Details Date Type Department Care Team Description 09/20/2009 Results Only [facility] Harris James MD Hospital Results [facility] [address] [place], [place] [address] (Wo rk) Social History [...] in this encounter Care Teams Director Of Web Marketing Relationship Specialty Start Date End Date Melvin Palacios MD PCP - General 06/22/99 09/20/10 [address] [phone] documented as of this encounter
--- OUTSIDE RECORDS SUMMARY | 2022-05-20 09:06 | XMS_ITS | Encounter Summary ---
:1975 Author Organization [facility] Address [address] [place] [address] Care Team Providers Name Role Phone Melvin Palacios MD Primary Care Provider Reason for Visit Reason Comments Abdominal Pain LLQ Pain x 3 days-1week. Sha rp. Has had a Mirena since 11/2008. ? Ovarian Cyst. Encounter Details Date Type Department Care Team Description 09/20/2009 Office Visit [facility] Martin Hauser Abdominal Pain (Primary Dx); [facility] [place] Shane Garcia MD Ovarian Cyst [facility] [address] [place], [place] [address] [address] [facility] [phone] [place], [place] [address] (Wo rk) Social History [...] Body Mass Index 23.37 06/19/2009 3:40 PM BRAILLE PROOFREADER documented in this encounter Progress Notes Harshal [...] RATE, AUTO Comment: left Martin Hauser MD [facility] documented in this encounter Nursing Notes 09/20/2009 [...] place. Martin Hauser MD SPECIAL IMAGING [facility] SED RATE, AUTO (09/20/2009 11:28 AM CDT) athologist Signature Sed Rate 5 0 - 20 mm/h [facility] Specimen Anatomical Collection Method Collection Time Receive d Time (Source) Location / / Volume Laterality 09/20/2009 11:28 09/20/2009 AM CDT 11:29 AM CDT Martin Hauser MD LABORATORY Performing Organization Address City/State/ZIP Code Phon e Number [address] [address] [facility] CBC WITH PLATELETS (09/20/2009 11:28 AM CDT) athologist Signature WBC 5.2 4.0 - 11.0 [place] 10e9/L [facility] RBC Count 4.54 3.8 - 5.2 [place] 10e12/L [facility] Hemoglobin 13.9 11.7 - [facility] 15.7 g/dL [facility] Hematocrit 41.2 35.0 - [facility] 47.0 % [facility] MCV 91 78 - 100 [facility] MCH 30.6 26.5 - [facility] 33.0 pg [facility] MCHC 33.7 31.5 - [facility] 36.5 g/dL [facility] RDW 12.7 10.0 - [place] 15.0 % [facility] Platelet Count 274 150 - 450 [place] 10e9/L [facility] Specimen Anatomical Collection Method Collection Time Receive d Time (Source) Location / / Volume Laterality 09/20/2009 11:28 09/20/2009 AM CDT 11:29 AM CDT Martin Hauser MD LABORATORY Performing Organization Address City/[facility]/ZIP Code Phon e Number [address] [address] [facility] (ABNORMAL) MICRO EXAM-URINE (09/20/2009 9:39 AM CDT) [facility] gist Method Time Signature WBC Urine 2-5 (A) 0 - 2 [facility] /[facility] RBC Urine O - 2 0 - 2 [place] /[facility] Hyaline Casts O - 2 0 - 2 [place] /F [facility] Squamous Many (A) FEW /LPF [place] Epithelial [facility] Urine CLINIC LAB Bacteria Urine Few (A) NEG /HPF [facility] Mucous Urine Present (A) NEG /LPF [facility] Specimen Anatomical Collection Method Collection Time Receive d Time (Source) Location / / Volume Laterality 09/20/2009 9:39 AM 0 9:40 CDT AM CDT Martin Hauser MD LABORATORY Performing Organization Address [facility]/ZIP Code Phon e Number [address] [address] [facility] (ABNORMAL) UA MICRO IF POSITIVE (09/20/2009 9:39 AM CDT) [facility] Method Time Signature Color Urine Cathy [facility] Appearance Urine Clear [facility] Glucose Urine Negative NEG mg/dL [facility] Bilirubin Urine Negative NEG [facility] Ketones Urine 40 (A) NEG mg/dL [facility] Specific [place] 1.025 1.003 - [place] Urine 1.035 [facility] Blood Urine Trace (A) NEG [facility] pH Urine 5.5 5.0 - 7.0 [place] pH [facility] Protein Albumin 30 (A) NEG mg/dL [place] Urine [facility] Urobilinogen 0.2 0.2 - 1.0 [place] Urine EU/dL [facility] Nitrite Urine Negative NEG [facility] Leukocyte Trace (A) NEG [place] Esterase Urine [facility] Source Midstream [place] Urine [facility] Specimen Anatomical Collection Method Collection Time Receive d Time (Source) Location / / Volume Laterality 09/20/2009 9:39 AM 0 9:40 CDT AM CDT Martin Hauser MD LABORATORY Performing Organization Address City/[facility]/ZIP Code Phon e Number [facility] [id number] [place] [phone] [facility] documented in this encounter Visit Diagnoses Diagnosis LLQ abdominal pain - Primary Abdominal pain, left lower quadrant Ovarian cyst Other and unspecified ovarian cyst documented in this encounter Care Teams Pattern Lease Inspector Relationship Specialty Start Date End Date Melvin Palacios MD PCP - General 06/22/99 09/20/10 [address] [phone] documented as of this encounter
--- OUTSIDE RECORDS SUMMARY | 2022-05-20 09:06 | XMS_ITS | Encounter Summary ---
:1975 Author Organization [place] Address [address] [place] [address] Care Team Providers Name Role Phone Melvin Palacios MD Primary Care Provider Reason for Visit Reason Onset Date Comments Medication Request 10/23/2009 Vitamin D Encounter Details Date Type Department Care Team Description 10/23/2009 Telephone [facility] Melvin Palacios MD Medication Request Clinic [address] (Vitamin D) [address] [place] [address] [phone] Social History Tobacco Use Types Packs/Day Years [...] up with you. How does that sound? [facility] Dariana documented in this encounter Plan of Treatment Not on filedocumented as of this encounter Visit Diagnoses Diagnosis Vitamin D deficiency - Primary Unspecified vitamin D deficiency documented in this encounter Care Teams Card Painter Relationship Specialty Start Date End Date Melvin Palacios MD PCP - General 06/22/99 09/20/10 [address] [phone] documented as of this encounter
--- OUTSIDE RECORDS SUMMARY | 2022-05-20 09:06 | XMS_ITS | Encounter Summary ---
:1975 Author Organization [facility] Address [address] [place] [address] Care Team Providers Name Role Phone Melvin Palacios MD Primary Care Provider Reason for Visit Reason Onset Date Comments Patient/info Update 11/14/2009 Encounter Details Date Type Department Care Team Description 11/14/2009 Telephone [facility] aHrris Jung MD Patient/info Update [address] [phone] (Wo rk) Social History Tobacco Use Types [...] on filedocumented in this encounter Care Teams Dry Chain Puller Relationship Specialty Start Date End Date Melvin Palacios MD PCP - General 06/22/99 09/20/10 [address] [phone] documented as of this encounter
--- OUTSIDE RECORDS SUMMARY | 2022-05-20 09:06 | XMS_ITS | Encounter Summary ---
:1975 Author Organization [facility] Address [address] [place] [address] Care Team Providers Name Role Phone Melvin Palacios MD Primary Care Provider Reason for Visit Reason Onset Date Comments Refill Request 08/04/2009 [facility] Encounter Details Date Type Department Care Team Description 08/04/2009 Refill [facility] Melvin Palacios MD Refill Request Clinic [place] [address] [place] (ZOLPIDEM) [address] [place] [address] [phone] Social History Tobacco Use Types Packs/Day Years [...] CST Walked to pharmacy. Stacey Torres RN LAY ASSOCIATE Telephone Encounter - Desire Bishop - 08/04/2009 12:18 PM CST Date of last OV: 07/07/09 Reason for visit: adjustment disorder Date last filled: per epic 07/07/09 #30 Labs pertaining to med: none, Unable to approve per standing orders, routed to provider. Desire Bishop RN LAY ASSOCIATE Telephone Encounter - Ban Monge - 08/04/2009 9:28 AM CST LAST FILL DATE: 07/07/09 LAST QTY: 30 TIERA HERNANDEZ [facility] LAY ASSOCIATE documented in this encounter Plan of Treatment Not on filedocumented as of this encounter Visit Diagnoses Diagnosis Adjustment disorder with anxiety documented in this encounter Care Teams Ice Skating Coach Relationship Specialty Start Date End Date Melvin Palacios MD PCP - General 06/22/99 09/20/10 [address] [phone] documented as of this encounter
--- OUTSIDE RECORDS SUMMARY | 2022-05-20 09:06 | XMS_ITS | Encounter Summary ---
:1975 Author Organization [place] Address [address] [place] [address] Care Team Providers Name Role Phone Melvin Palacios MD Primary Care Provider Reason for Visit Reason Comments Abnormal Uterine Bleeding abnormal bleeding for severa l months Encounter Details Date Type Department Care Team Description 11/07/2009 Office Visit [facility] Cayetano Jung Adjustm ent Disorder with Anxiety (Primary Dx); Clinic [place] Abnormal Uterine Bleeding [address] [address] [facility] 100 131 160 [place], [place] [address] Social History Tobacco Use Types Packs/Day Years [...] athologist Signature TSH 1.14 0.4 - 5.0 [facility] mU/L [facility] Specimen Anatomical Collection Method Collection Time Receive d Time (Source) Location / / Volume Laterality 11/07/2009 4:36 PM 0 4:37 CDT PM CDT Cayetano Jung MD LABORATORY Performing Organization Address City/State/ZIP Code Phon e Number [facility] [address] [place] [address] [facility] SURGICAL PATHOLOGY (11/07/2009 12:00 AM CDT) Component Value Ref Test Analysis Performed At [facility] gist Range Method Time Signature Copath Report Patient Name: DARIANA VALDEZ MR#: [id number] Specimen #: [id number] Collected: 11/07/2009 Received: 11/08/2009 Reported: 11/09/2009 14:35 Ordering Phy(s): CAYETANO JNUG SPECIMEN(S): Endometrial biopsy FINAL DIAGNOSIS: Endometrium, biopsy [...] ot identified. KARLEE/imani 11-09-09 TESTING LAB LOCATION: [facility] [address] [place], [place] ??[address] COLLECTION SITE: Client: [facility] Location: LVOB (R) Specimen (Source) Anatomical Collection [...] tract documented in this encounter Care Teams Picker And Sorter Load And Unload Relationship Specialty Start Date End Date Melvin Palacios MD PCP - General 06/22/99 09/20/10 [address] [phone] documented as of this encounter
--- OUTSIDE RECORDS SUMMARY | 2022-05-20 09:06 | XMS_ITS | Encounter Summary ---
:1975 Author Organization [place] Address [address] [place] [address] Care Team Providers Name Role Phone Melvin Palacios MD Primary Care Provider Reason for Visit Reason Onset Date Comments Refill Request 07/03/2009 francis Encounter Details Date Type Department Care Team Description 07/03/2009 MyC Refill [facility] Refill Sejal robertsest (ambien [facility] [place] [facility]) [address] [place] [phone] [phone] Social History Tobacco Use Types Packs/Day Years [...] 9:28 AM CST She should come in ING PRODUCTION MANAGER Telephone Encounter - Pau Ribeiro - [...] listed on hardcopy. Thanks Pau Ribeiro RN ING PRODUCTION MANAGER Telephone Encounter - Tobi Beltran - 07/03/2009 4:33 PM TOURING PRODUCTION MANAGER I cant fill this rx. Please check with Dariana to see who is managing her anxiety medications and direct refill there. ING PRODUCTION MANAGER Telephone Encounter - Stacey Torres - 07/03/2009 4:16 PM CST Last OV: 06/19/09 Reason for visit: mult concerns Date last filled: klonopin 06/10/09 Ambien 06/01/09 Unable to fill [facility] Stacey Torres RN ING PRODUCTION MANAGER Telephone Encounter - Stacey Torres - 07/03/2009 4:14 PM TOURING PRODUCTION MANAGER Message from [facility]: Dariana Osman would like a refill of the following medications: KLONOPIN 1 MG OR TABS [Nemesio Mcguire MD] ZOLPIDEM TARTRATE 10 MG OR TABS [Melvin Palacios MD] Preferred pharmacy: [facility] Comment: ING PRODUCTION MANAGER documented in this encounter Plan of Treatment Not on filedocumented as of this encounter Visit Diagnoses Diagnosis Adjustment disorder with anxiety documented in this encounter Care Teams Webbing Weaver Relationship Specialty Start Date End Date Melvin Palacios MD PCP - General 06/22/99 09/20/10 [address] [phone] documented as of this encounter
--- OUTSIDE RECORDS SUMMARY | 2022-05-20 09:07 | XMS_ITS | Encounter Summary ---
:1975 Author Organization [place] Address [address] [facility] [place] [address] Care Team Providers Name Role Phone Melvin Palacios MD Primary Care Provider Reason for Visit Reason Comments Recheck Medication FU on depression meds Encounter Details Date Type Department Care Team Description 12/15/2008 Office Visit [facility] Tobi West ANXIETY STATE NOS; Clinic [place] ZENON Maddox Insomnia; [address] [facility] [id number] [place] [address] Major [place], [place] [address] [id number] Social History Tobacco Use Types Packs/Day Years [...] BP completed using cuff size large Melissa Ricks/CONTACT CENTER TEAM LEAD documented in this encounter Plan of Treatment Not on filedocumented as of this encounter Visit Diagnoses Diagnosis ANXIETY STATE NOS Anxiety state, unspecified Insomnia Insomnia, unspecified Major depressive disorder, single episod e, severe, without mention of psychotic behavior documented in this encounter Care Teams Psych Therapist Relationship Specialty Start Date End Date Melvin Palacios MD PCP - General 06/22/99 09/20/10 [address] [id number] documented as of this encounter
--- OUTSIDE RECORDS SUMMARY | 2022-05-20 09:07 | XMS_ITS | Encounter Summary ---
:1975 Author Organization [place] Address [address] [place] [address] Care Team Providers Name Role Phone Melvin Palacios MD Primary Care Provider Reason for Visit Reason Onset Date Comments Refill Request 12/26/2008 ALPRAZOLPAM Encounter Details Date Type Department Care Team Description 12/26/2008 Refill [facility] Melvin Palacios MD Refill Request Clinic [place] [address] (ALPRAZOLPAM) [address] [place], [place] [address] [address] [phone] Social History Tobacco Use Types Packs/Day Years Used Date Smoking Tobacco: Former Alcohol Use Standard Drinks/Week Comments Yes 0 (1 standard drink = 0.6 oz pure alcoho l) social Sex Assigned at Date Recorded Not on file documented as of this encounter Miscellaneous Notes Telephone Encounter - Deidre Alas - 12/26/2008 2:24 PM CDT LAST FILL DATE: 11/04/08 QTY: 30 Camilo Hammonds [facility] documented in this encounter Plan of Treatment Not on filedocumented as of this encounter Visit Diagnoses Diagnosis Routine gynecological examination documented in this encounter Care Teams Waterworks Employee Relationship Specialty Start Date End Date Melvin Palacios MD PCP - General 06/22/99 09/20/10 [address] [id number] documented as of this encounter
--- OUTSIDE RECORDS SUMMARY | 2022-05-20 09:07 | XMS_ITS | Encounter Summary ---
:1975 Author Organization [place] Address [address] [place] [address] Care Team Providers Name Role Phone Melvin Palacios MD Primary Care Provider Encounter Details Date Type Department Care Team Description 03/13/2009 Orders Only [facility] Barbara, Dysuria (P rimary Dx); Clinic [place] ZENON [place] UTI (Urinary Tract Infection) [facility] [address] [place], [place] SON[place] YEH [phone] Social History Tobacco Use Types Packs/Day Years [...] ied documented in this encounter Care Teams Tape Keller Operator Relationship Specialty Start Date End Date Melvin Palacios MD PCP - General 06/22/99 09/20/10 [address] [address] documented as of this encounter
--- OUTSIDE RECORDS SUMMARY | 2022-05-20 09:07 | XMS_ITS | Encounter Summary ---
:1975 Author Organization [place] Address [address] [place] [address]. [place] [address] Care Team Providers Name Role Phone Melvin Palacios MD Primary Care Provider Esmer Roland MD Primary Care Provider [phone] Encounter Details Date Type Department Care Team Description 03/27/2009 Historic Continuous Process Machine Operator [facility] Heladio, Mental Health & Katey Pinead LP, Addiction [facility] [address] [place] [address] [place] [address] [phone] (Wo rk) Social History Tobacco Use Types Packs/Day Years Used Date Smoking Tobacco: Every Day Comments: 1-2 every other day Alcohol Use Standard Drinks/Week Comments Yes 0 (1 standard drink = 0.6 oz pure alcoho l) social Sex Assigned at Date Recorded Not on file documented as of this encounter Progress Notes Katey Patricia LP, [facility] - 05/14/2011 5:58 AM BOLT SAWYER FINAL INITIAL ASSESSMENT IDENTIFYING INFORMATION: Dariana is [...] overwhelming. 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 She states her electrician supervisor airplane recently pointed out to her that Dariana perhaps was coming across as possibly irritable and impatient with the patients at the clinic. By the suggestion of her electrician supervisor airplane and in conjunction with her family practice doctor, Dariana decided to take a medical leave of absence and she is due to return from her medical leave on 04/24/2009. She was referred to therapy via her family physician, Dr. Melvin Palacios of [facility]. She has been apparently agreeable and cooperative in following recommendations both of her electrician supervisor airplane and her physician. She wants to pursue counseling as well as she feels she is under increased stress between the breakup of her marriage, soon leading to final divorce as well as job stress and ongoing parenting responsibilities. Her electrician supervisor airplane and her physician have both been supportive and her electrician supervisor airplane has been encouraging her to take care of myself. Her electrician supervisor airplane along with her inbound customer service representative then reviewed with Dariana, her options. [facility] then saw Dr. Palacios who established with [...] I take a medical leave per my legal practice manager. She admits to extreme anxiety and panic attacks and is being treated by Dr. Palacios with medication as well. Therefore, she pursues counseling, in particular to reduce her anxiety and depression symptoms. She admits she has had very little counseling in the past and is not quite sure how to talk about issues in her counseling. SOCIAL HISTORY: Dariana grew up in [place], [place], and is the 3rd child of 4. She grew up in an intact Buddhism family household. Dariana feels that her upbringing was normal. 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 She admits to having extreme performance anxiety during her education, particularly test anxiety. She currently attends taoist and her Roman Catholic continues to be central to her life. [...] she did attend some college classes at [employer], but does prefer learning which [...] is Dr. Melvin Palacios and her Physician Hatch Tender is Tobi Gonzalez. She feels she has a good working relationship with her PCP and the Physician Hatch Tender at [facility]. The phone number at [facility] is [phone]. Dariana feels that in general, her health [...] ago in 03/2008, and was admitted to [facility] to have the kidney stone removed. [...] She frequently becomes tearful and she has communications tower climber insomnia. She admits to ongoing fears and [...] physician, Dr. Palacios and Tobi Gonzalez, physician microbiology lab assistant. Individual sessions 2-3x/month for 3-6 months would be anticipated There are no issues which will not be addressed during this episode of care. Dariana may receive a copy of her chart upon written request. Electronically signed on 05/15/2009 18:57 by KATEY PATRICIA MA, MEGHAN, THREAD GRINDER TOOL MT: FRANCO Name: DARIANA VALDEZ MRN: [id number] Account: [id number] : 1975 Service Date: 03/27/2009 Document: [id number] SAWYER documented in this encounter Plan of Treatment Not on filedocumented as of this encounter Visit Diagnoses Not on filedocumented in this encounter Care Teams Molder Operator Relationship Specialty Start Date End Date Melvin Palacios MD PCP - General 06/22/99 09/20/10 [address] [id number] Esmer Roland MD PCP - General Family Practice 09/21/10 01/29/17 documented as of this encounter
--- OUTSIDE RECORDS SUMMARY | 2022-05-20 09:07 | XMS_ITS | Encounter Summary ---
:1975 Author Organization [place] Address [address] [place] [address] Care Team Providers Name Role Phone Melvin Palacios MD Primary Care Provider Reason for Visit Reason Comments IUD Encounter Details Date Type Department Care Team Description 11/18/2008 Office Visit [facility] Harris Jung Inserti on of IUD [facility] (Primary Dx) [place] [address] Arvad[address]ace Chacon [facility] [address] [facility] [address] [place] [address] [phone] Social History Tobacco Use Types Packs/Day Years [...] 2008 4:43 PM Mirena IUD insertion, lot# [id number], exp 03/2011 >> MAGDA SANDOVAL FriNov 18, [...] device documented in this encounter Care Teams Seafood And Service Meat Manager Relationship Specialty Start Date End Date Melvin Palacios MD PCP - General 06/22/99 09/20/10 [address] [id number] documented as of this encounter
--- OUTSIDE RECORDS SUMMARY | 2022-05-20 09:07 | XMS_ITS | Encounter Summary ---
:1975 Author Organization [place] Address [address] [place] [address]. [place] [address] Care Team Providers Name Role Phone Melvin Palacios MD Primary Care Provider Reason for Visit Reason Onset Date Comments Refill Request 03/14/2009 Encounter Details Date Type Department Care Team Description 03/14/2009 [place] [facility] [place] efadrian Request [place] ZENON Maddox [address] [place] [address] N [phone] Social History Tobacco Use Types Packs/Day Years [...] TABS [Tobi Barber PA-C] Preferred pharmacy: [facility] Comment: Last ov 02/27/09 for adj [...] unspecified documented in this encounter Care Teams Spring Floor Service Worker Relationship Specialty Start Date End Date Melvin Palacios MD PCP - General 06/22/99 09/20/10 [address] [id number] documented as of this encounter
--- OUTSIDE RECORDS SUMMARY | 2022-05-20 09:07 | XMS_ITS | Encounter Summary ---
:1975 Author Organization [place] Address [address] [place] [address] Care Team Providers Name Role Phone Melvin Palacios MD Primary Care Provider Reason for Visit Reason Onset Date Comments Refill Request 02/14/2009 ALPRAZOLAM Encounter Details Date Type Department Care Team Description 02/14/2009 Refill [facility] Melvin Palacios MD Refill Request Clinic [place] [address] (ALPRAZOLAM) [address] [place] [address] [phone] Social History Tobacco Use Types Packs/Day Years [...] FILL DATE: 12/27/08 QTY: 40 Camilo Hammonds [facility] documented in this encounter Plan of Treatment Not on filedocumented as of this encounter Visit Diagnoses Diagnosis Routine gynecological examination - Prim harpal documented in this encounter Care Teams Technical Associate Relationship Specialty Start Date End Date Melvin Palacios MD PCP - General 06/22/99 09/20/10 [address] [address] documented as of this encounter
--- OUTSIDE RECORDS SUMMARY | 2022-05-20 09:07 | XMS_ITS | Encounter Summary ---
:1975 Author Organization [place] Address [address] [place] [address] Care Team Providers Name Role Phone Melvin Palacios MD Primary Care Provider Encounter Details Date Type Department Care Team Description 03/13/2009 Orders Only [facility] Clinic Dys uria; [facility] Other Nonspecific Finding on Examination of Urine [facility], [address] [place] [address] Social History Tobacco Use [...] Component Value Ref Test Analysis Performed At [facility] Range Method Time Signature WBC Urine 10-25 0 - 2 [place] Clumps of WBC's seen (A) /HPF [facility] RBC Urine 50-100 (A) 0 - 2 [place] /HPF [facility] Squamous EPI Few FEW /LPF [facility] Bacteria Many (A) NEG /HPF [place] Urine [facility] Comment Urine was tested [place] [facility] because <10 ml CLINIC LAB was received. Specimen Anatomical Collection Method Collection Time Receive d Time (Source) Location / / Volume Laterality 03/13/2009 9:15 AM 9 9:17 CDT AM CDT Aleksandra Jimenez PA-C LABORATORY Performing Organization Address City/State/ZIP Code Phon e Number [facility] [place] [address] [facility] URINE CULTURE (03/13/2009 9:15 AM CDT) Component Value Ref Test Analysis Performed At Patholo gist Range Method Time Signature Specimen Midstream Urine [place] Description [facility] Culture Micro >100,000 [place] colonies/mL [facility] coli Report status FINAL [place] 03/14/2009 [facility] Specimen Anatomical Collection Method [...] Organization Address City/State/ZIP Code Phon e Number [facility] [address] [place] [address] HOSPITAL [facility] (ABNORMAL) UA MICRO IF POSITIVE (03/13/2009 9:15 AM CDT) [facility] Method Time Signature Color Urine Yellow [facility] Appearance Urine Slightly [place] Cloudy [facility] Glucose Urine Negative NEG mg/dL [facility] Bilirubin Urine Negative NEG [facility] Ketones Urine Trace (A) NEG mg/dL [facility] Specific [place] >1.030 1.003 - [place] Urine 1.035 [facility] Blood Urine Large (A) NEG [facility] pH Urine 5.0 5.0 - 7.0 [place] pH [facility] Protein Albumin 30 (A) NEG mg/dL [facility] Urobilinogen 0.2 0.2 - 1.0 [place] Urine EU/dL [facility] Nitrite Urine Negative NEG [facility] Leukocyte Moderate (A) NEG [place] Esterase Urine [facility] Source Midstream [facility] Specimen Anatomical Collection Method Collection Time Receive d Time (Source) Location / / Volume Laterality 03/13/2009 9:15 AM 9:17 CDT AM CDT Authorizing Provider Result Ester Jimenez PA-C LABORATORY Performing Organization Address City/[facility]/ZIP Code Phon e Number [facility] [place], [place] [id number] [facility] documented in this encounter Visit Diagnoses Diagnosis Dysuria Other nonspecific finding on examination of urine documented in this encounter Care Teams Condenser Operator Relationship Specialty Start Date End Date Melvin Palacios MD PCP - General 06/22/99 09/20/10 [address] [id number] documented as of this encounter
--- OUTSIDE RECORDS SUMMARY | 2022-05-20 09:07 | XMS_ITS | Encounter Summary ---
:1975 Author Organization [place] Address [address] [place] [address] Care Team Providers Name Role Phone Melvin Palacios MD Primary Care Provider Reason for Visit Reason Comments Medication Request wondering if she can have an increase in med celexa and discuss migraines Encounter Details Date Type Department Care Team Description 05/17/2009 Office Visit [facility] Melvin Palacios MD Adjustment Disorder Clinic [place] [address] with Mixed Anxiety and [address] [facility] Depressed Mood [place], [place] (Primary Dx) [address] [phone] Social History Tobacco Use Types Packs/Day Years [...] Comments Blood Pressure 114/80 05/17/2009 3:08 PM GERMINATION WORKER Pulse - - Temperature - - Respiratory Rate - - Oxygen Saturation - - Inhaled Oxygen Concentration - - Weight 72.6 kg (160 lb) 05/17/2009 3:08 PM GERMINATION WORKER Height 167.6 cm (5' 6) 05/17/2009 3:08 PM GERMINATION WORKER Body Mass Index 25.82 05/17/2009 3:08 PM GERMINATION WORKER documented in this encounter Progress Notes Melvin [...] She is to contiue with her psychotherapy INATION WORKER documented in this encounter Nursing Notes 05/17/2009 [...] Primary documented in this encounter Care Teams [place] Dental Lab Technician Relationship Specialty Start Date End Date Melvin Palacios MD PCP - General 06/22/99 09/20/10 [address] [address] documented as of this encounter
--- OUTSIDE RECORDS SUMMARY | 2022-05-20 09:07 | XMS_ITS | Encounter Summary ---
:1975 Author Organization [place] Address [address] [place] [address] Care Team Providers Name Role Phone Melvin Palacios MD Primary Care Provider Reason for Visit Reason Comments RECHECK meds, migraines, not keeping food down Patient Request for Note/Letter for FMLA - verify date s that she missed work Refill Request Celexa - 3 months Encounter Details Date Type Department Care Team Description 06/19/2009 Office Visit [facility] Melvin Palacios MD Gastropareses; Clinic [address] GERD (Gastroesophageal Reflu x Disease); [address] [place] [address] Nausea; [place], [place] [facility] ANXIETY S [place] NOS; [phone] Major Depress Dis, Severe [phone] Social History Tobacco Use Types Packs/Day Years [...] Comments Blood Pressure 110/58 06/19/2009 3:40 PM HOG HANDLER Pulse 66 06/19/2009 3:40 PM HOG HANDLER Temperature 36.9 ??C (98.4 ??F) 06/19/2009 3:40 PM HOG HANDLER Respiratory Rate - - Oxygen Saturation - - Inhaled Oxygen Concentration - - Weight 69.9 kg (154 lb) 06/19/2009 3:40 PM HOG HANDLER Height 168.9 cm (5' 6.5) 06/19/2009 3:40 PM HOG HANDLER Body Mass Index 24.48 06/19/2009 3:40 PM HOG HANDLER documented in this encounter Progress Notes Melvin [...] flare. FMLA clarified to reflect lost dates. HANDLER documented in this encounter Nursing Notes 06/19/2009 [...] behavior documented in this encounter Care Teams Senior Training Specialist Relationship Specialty Start Date End Date Melvin Palacios MD PCP - General 06/22/99 09/20/10 [address] [id number] documented as of this encounter
--- OUTSIDE RECORDS SUMMARY | 2022-05-20 09:07 | XMS_ITS | Encounter Summary ---
:1975 Author Organization [place] Address [address] [place] [address] Care Team Providers Name Role Phone Melvin Palacios MD Primary Care Provider Reason for Visit Reason Comments Pharyngitis Urgent Care Encounter Details Date Type Department Care Team Description 10/05/2008 Office Visit [place] [facility]e Funez Sor e Throat (Viral) Care ZEN[place] (Primary Dx) [address] [facility] [place] [address] SONJA JUÁREZ [address] (Wo rk) Social History [...] sx persist or worsen See orders in [facility]. documented in this encounter Nursing [...] Component Value Ref Test Analysis Performed At [facility] gist Range Method Time Signature Specimen Throat [facility] Culture Micro No Beta [place] Streptococcus [facility] isolated LAB Report status FINAL 10/07/2008 [facility] Specimen Anatomical Collection Method Collection Time Receive d Time (Source) Location / / Volume Laterality 10/05/2008 7:36 PM 9 7:41 CDT PM CDT Stefanie Rojas MD LABORATORY Performing Organization Address City/State/ZIP Code Phon e Number [facility] [address] [place] [address] [facility] STREP GROUP A ANTIGEN (RAPID) (10/05/2008 7:36 PM CDT) Component Value Ref Test Analysis Performed At [facility] VivoText Range Method Time Signature Specimen Throat [facility] Rapid Strep A NEGATIVE: No Group A strepto coccal antigen detected by immunoassay, await [place] Screen culture report. [facility] LAB Report status FINAL 10/05/2008 [facility] Specimen Anatomical Collection Method Collection Time Receive d Time (Source) Location / / Volume Laterality 10/05/2008 7:36 PM 9 7:41 CDT PM CDT Stefanie Rojas MD LABORATORY Performing Organization Address City/State/ZIP Code Phon e Number [facility] [address] [facility] [place] [address] [facility] documented in this encounter Visit Diagnoses Diagnosis Sore throat (viral) - Primary Acute pharyngitis documented in this encounter Care Teams Cocktail Server Relationship Specialty Start Date End Date Melvin Palacios MD PCP - General 06/22/99 09/20/10 [address] [id number] documented as of this encounter
--- OUTSIDE RECORDS SUMMARY | 2022-05-20 09:07 | XMS_ITS | Encounter Summary ---
:1975 Author Organization [place] Address [address] [place] [address] Care Team Providers Name Role Phone Melvin Palacios MD Primary Care Provider Reason for Visit Reason Onset Date Comments Refill Request 05/17/2009 ALPRAZOLAM Encounter Details Date Type Department Care Team Description 05/17/2009 Refill [facility] Melvin Palacios MD Refill Request Clinic [place] [address] (ALPRAZOLAM) [address] [place] [phone] Social History Tobacco Use Types Packs/Day Years [...] Signed rx hand faxed Melissa Pickett RN IRON INSPECTOR Telephone Encounter - Ernestine Salinas - 05/17/2009 4:33 PM CST Last OV: 05/17/09 Reason for visit: adjustment disorder Date last filled: 04/20/09 Not pso, routed, need to walk over Ernestine Salinas RN IRON INSPECTOR Telephone Encounter - Deidre Alas - 05/17/2009 3:49 PM CST LAST FILL DATE: 04/21/09 QTY: 40 Mechelle Alas, [facility] IRON INSPECTOR documented in this encounter Plan of Treatment Not on filedocumented as of this encounter Visit Diagnoses Diagnosis Routine gynecological examination documented in this encounter Care Teams Communications Writer Relationship Specialty Start Date End Date Melvin Palacios MD PCP - General 06/22/99 09/20/10 [address] [id number] documented as of this encounter
--- OUTSIDE RECORDS SUMMARY | 2022-05-20 09:07 | XMS_ITS | Encounter Summary ---
:1975 Author Organization [place] Address [address] [place] [address] Care Team Providers Name Role Phone Melvin Palacios MD Primary Care Provider Encounter Details Date Type Department Care Team Description 04/26/2009 Medical Correspondence [facility] Melvin Palacios , Report of Clinic Carmen BANERJEE [address] [place] [address] [phone] Social History Tobacco Use Types Packs/Day Years [...] on filedocumented in this encounter Care Teams Kitchen Mechanic Relationship Specialty Start Date End Date Melvin Palacios MD PCP - General 06/22/99 09/20/[address] [place], [place] [address]SON[place]aman [id number] documented as of this encounter
--- OUTSIDE RECORDS SUMMARY | 2022-05-20 09:07 | XMS_ITS | Encounter Summary ---
:1975 Author Organization [place] Address [address] [place] [address] Care Team Providers Name Role Phone Melvin Palacios MD Primary Care Provider Reason for Visit Reason Onset Date Comments Refill Request 06/01/2009 [place] Encounter Details Date Type Department Care Team Description 06/01/2009 Refill [facility] Melvin Palacios MD Refill Request (Ambien) Clinic [address] [place] [address] [phone] Social History Tobacco Use Types Packs/Day Years [...] 11:28 AM CST Already completed. Jeimy Bowman EXTENSION CLERK INUING EDUCATION INSTRUCTOR documented in this encounter Plan of Treatment Not on filedocumented as of this encounter Visit Diagnoses Diagnosis Adjustment disorder with anxiety documented in this encounter Care Teams Abrasive Grinder Relationship Specialty Start Date End Date Melvin Palacios MD PCP - General 06/22/99 09/20/10 [address] [address] documented as of this encounter
--- OUTSIDE RECORDS SUMMARY | 2022-05-20 09:07 | XMS_ITS | Encounter Summary ---
:1975 Author Organization [facility] Address [address] [place] [address] Care Team Providers Name Role Phone Melvin Palacios MD Primary Care Provider Reason for Visit Reason Comments Motorcycle Maker Exam would like to discuss b/c. Encounter Details Date Type Department Care Team Description 11/07/2008 Office Visit [facility] Cayetano Jung, Routine Gynecological Women's Clinic MD Examination (Primary Dx) [place] [address] Jose Chacon [facility] [address] [facility] 100 [address] 160 [place] [address] [phone] Social History Tobacco Use Types Packs/Day Years [...] 07, 2008 3:46 PM .Patient presents with: Motorcycle Maker Exam - would like to discuss b/c. [...] Value Ref Test Analysis Performed At [facility] Range Method Time Signature PAP NIL COPATH Copath Report COPATH Patient Name: DARIANA VALDEZ MR#: [id number] Specimen #: [id number] Collected: 11/07/2008 Received: 11/08/2008 Reported: 11/09/2008 09:45 [...] LAVON Tong (ASCP) Processed and screened at [facility] CLINICAL HISTORY: LMP: 10/24/08 TESTING LAB LOCATION: [facility] [address] [place], [place] ??[address] COLLECTION SITE: Client: ??[facility] Location: [place] (R) Specimen (Source) Anatomical Collection Method Collection Time Re ceived Time Location / / Volume Laterality 11/07/2008 11/08/2008 9:55 AM CDT Cayetano Jung MD LABORATORY Performing Organization Address City/State/ZIP Code Phon e Number COPATH documented in this encounter Visit Diagnoses Diagnosis Routine gynecological examination - Prim harpal documented in this encounter Care Teams Activated Sludge Operator Relationship Specialty Start Date End Date Melvin Palacios MD PCP - General 06/22/99 09/20/10 [address] [facility] [place] [address] documented as of this encounter
--- OUTSIDE RECORDS SUMMARY | 2022-05-20 09:07 | XMS_ITS | Encounter Summary ---
:1975 Author Organization [place] Address [address] [place] [address] Care Team Providers Name Role Phone Melvin Palacios MD Primary Care Provider Reason for Visit Reason Onset Date Comments Refill Request 05/01/2009 JUANAONOMALCOLM Encounter Details Date Type Department Care Team Description 05/01/2009 Refill [facility] Melvin Palacios MD Refill Request Clinic [address] ([place]) [address] [place] [address] [place] [address] [phone] Social History Tobacco Use Types Packs/Day Years [...] Also needs zolpidem refilled Ernestine Salinas RN OR ENVIRONMENTAL TECHNICIAN Telephone Encounter - Ernestine Salinas - 05/01/2009 2:05 PM CST See below Last OV: 04/20/09 Reason for visit: adjustment disorder Not pso, routed, need to walk rx over, Suzanne gone, routed to Ernestine Salinas RN OR ENVIRONMENTAL TECHNICIAN Telephone Encounter - Deidre Alas - 05/01/2009 1:58 PM CST LAST FILL DATE: 04/03/09 QTY: 60 Mechelle Alas Count includes the [facility] PHARMACY OR ENVIRONMENTAL TECHNICIAN documented in this encounter Plan of Treatment Not on filedocumented as of this encounter Visit Diagnoses Diagnosis Adjustment disorder with anxiety - Prima ry documented in this encounter Care Teams Hospital Social Worker Relationship Specialty Start Date End Date Melvin Palacios MD PCP - General 06/22/99 09/20/10 [address] [place] [address] documented as of this encounter
--- OUTSIDE RECORDS SUMMARY | 2022-05-20 09:07 | XMS_ITS | Encounter Summary ---
:1975 Author Organization [place] Address [address] [facility] [place] [address] Care Team Providers Name Role Phone Melvni Palacios MD Primary Care Provider Reason for Visit Reason Comments Medication Problem with her ambien- she takes i t at 10 30 or 11 pm and she is up by 4 am. Her panic attacks have d ecreased- however she is not working anymore. Encounter Details Date Type Department Care Team Description 03/22/2009 Office Visit [facility] Melvin Palacios MD Adjustment Disorder Clinic [place] [address] with Anxiety (Primary [address] [facility]) [facility] [place] [address] [phone] Social History Tobacco Use Types Packs/Day Years [...] Notes 03/22/2009 2:45 PM CDT >> TOBY THOA Wed Mar 22, 2009 3:04 PM Patient [...] ry documented in this encounter Care Teams Third Rail Installer Relationship Specialty Start Date End Date Melvin Palacios MD PCP - General 06/22/99 09/20/10 [address] [place] [address] [address] documented as of this encounter
--- OUTSIDE RECORDS SUMMARY | 2022-05-20 09:07 | XMS_ITS | Encounter Summary ---
:1975 Author Organization [place] Address [address] [place] [address] Care Team Providers Name Role Phone Melvin Palacios MD Primary Care Provider Reason for Visit Reason Onset Date Comments Refill Request 04/20/2009 ALPRAZOLAM Encounter Details Date Type Department Care Team Description 04/20/2009 Refill [facility] Melvin Palacios MD Refill Request Clinic [place] [address] (ALPRAZOLAM) [address] [place], [place] [address] [address] [phone] Social History Tobacco Use Types Packs/Day Years [...] FILL DATE: 02/14/09 QTY: 40 Camilo Hammonds [facility] IO MANAGER documented in this encounter Plan of Treatment Not on filedocumented as of this encounter Visit Diagnoses Diagnosis Routine gynecological examination documented in this encounter Care Teams Industrial Rehabilitation Consultant Relationship Specialty Start Date End Date Melvin Palacios MD PCP - General 06/22/99 09/20/10 [address] [address] [address] documented as of this encounter
--- OUTSIDE RECORDS SUMMARY | 2022-05-20 09:07 | XMS_ITS | Encounter Summary ---
:1975 Author Organization [place] Address [address] [place] [address] Care Team Providers Name Role Phone Melvin Palacios MD Primary Care Provider Reason for Visit Reason Onset Date Comments Refill Request 12/13/2008 Elrbon63kc/PSOaab Encounter Details Date Type Department Care Team Description 12/12/2008 MyC Refill [facility] [place] [facility] ZENON Maddox (Yyarqo20un/PSOaab) [address] [place] [address] [phone] Social History Tobacco Use Types Packs/Day Years [...] - 12/13/2008 9:37 AM CDT Message from [employer]: Dariana Osman would like a refill of the following medications: CELEXA 40 MG OR TABS [Tobi Barber PA-C] Preferred pharmacy: [facility] Comment: documented in this encounter Plan of Treatment Not on filedocumented as of this encounter Visit Diagnoses Diagnosis DEPRESSIVE DISORDER NEC Depressive disorder, not elsewhere class ified ANXIETY STATE NOS Anxiety state, unspecified documented in this encounter Care Teams Barrel Maker Relationship Specialty Start Date End Date Melvin Palacios MD PCP - General 06/22/99 09/20/10 [address] [address] [address] documented as of this encounter
--- OUTSIDE RECORDS SUMMARY | 2022-05-20 09:07 | XMS_ITS | Encounter Summary ---
:1975 Author Organization [place] Address [address] [place] [address] Care Team Providers Name Role Phone Melvin Palacios MD Primary Care Provider Reason for Visit Reason Comments Forms return to work papers Encounter Details Date Type Department Care Team Description 04/20/2009 Office Visit [facility] Melvin Palacios MD Adjustment Disorder Clinic [place] [address] with Depressed Mood [address] [facility] (Primary Dx) [place], [place] [address] 8[address] Social History Tobacco Use Types Packs/Day Years [...] Comments Blood Pressure 114/70 04/20/2009 3:16 PM MICROCOMPUTER TECHNICIAN Pulse 66 04/20/2009 3:16 PM MICROCOMPUTER TECHNICIAN Temperature - - Respiratory Rate - - Oxygen Saturation - - Inhaled Oxygen Concentration - - Weight 74.4 kg (164 lb) 04/20/2009 3:16 PM MICROCOMPUTER TECHNICIAN Height - - Body Mass Index [...] maintains her weekly visits with her therapist. OCOMPUTER TECHNICIAN documented in this encounter Nursing Notes 04/20/2009 3:00 PM CST >> [facility] Apr 20, 2009 3:18 PM Patient presents [...] Primary documented in this encounter Care Teams It Sales Executive Relationship Specialty Start Date End Date Melvin Palacios MD PCP - General 06/22/99 09/20/10 [address] [address] documented as of this encounter
--- OUTSIDE RECORDS SUMMARY | 2022-05-20 09:07 | XMS_ITS | Encounter Summary ---
:1975 Author Organization [place] Address [address] [place] [address]. [place] [address] Care Team Providers Name Role Phone Melvin Palacios MD Primary Care Provider Encounter Details Date Type Department Care Team Description 11/04/2008 Office Visit [facility] Melvin Palacios MD Panic Attack (Primary Clinic [place] [address] [place]) [address] [place], [place] [address] [id number] Social History Tobacco Use Types Packs/Day Years [...] agoraphobia documented in this encounter Care Teams Chamber Magistrate Relationship Specialty Start Date End Date Melvin Palacios MD PCP - General 06/22/99 09/20/10 [address] [address] documented as of this encounter
--- OUTSIDE RECORDS SUMMARY | 2022-05-20 09:07 | XMS_ITS | Encounter Summary ---
:1975 Author Organization [place] Address [address] [facility] [place] [address] Care Team Providers Name Role Phone Melvin Palacios MD Primary Care Provider Reason for Referral Referral not Required - Closed Specialty Diagnoses / Procedures Referred By Contact Refer red To Contact Diagnoses Other specified viral warts Kenneth Cannon DPM [facility] [address] [place], [place] [address] Phone: [phone] Fax: Referral ID Status Reason Start Date Expiration Date Visits Requ ested Visits Authorized [id number] Closed 09/28/2008 06/08/2011 1 1 Reason for Visit Reason Comments Musculoskeletal Problem right heel- possible plantar wart. She states she had the wart treated and now has olamide n and what looks like a callus. Encounter Details Date Type Department Care Team Description 09/20/2008 Office Visit [facility] Kenneth Cannon Other Specified Viral Clinic Carmen Dietrich DPM Warts (Primary Dx) [address] [facility] [address] [place] [address] E [address] [address] [place], [place] [address] Social History Tobacco Use Types [...] Primary documented in this encounter Care Teams Ui Ux Developer Relationship Specialty Start Date End Date Melvin Palacios MD PCP - General 06/22/99 09/20/10 [address] [address] documented as of this encounter
--- OUTSIDE RECORDS SUMMARY | 2022-05-20 09:07 | XMS_ITS | Encounter Summary ---
:1975 Author Organization [place] Address [address] [place] [address] Care Team Providers Name Role Phone Melvin Palacios MD Primary Care Provider Encounter Details Date Type Department Care Team Description 12/29/2008 Office Visit [facility] Barbara Wrist Pain (Primary Dx) [facility] [place] PA-C [address] [place] [address] [address] [place], [place]H [phone] Social History Tobacco Use Types Packs/Day [...] forearm documented in this encounter Care Teams Halal Butcher Relationship Specialty Start Date End Date Melvin Palacios MD PCP - General 06/22/99 09/20/10 [address] [address] documented as of this encounter
--- OUTSIDE RECORDS SUMMARY | 2022-05-20 09:07 | XMS_ITS | Encounter Summary ---
:1975 Author Organization [place] Address [address] [place] [address] Care Team Providers Name Role Phone Melvin Palacios MD Primary Care Provider Encounter Details Date Type Department Care Team Description 09/27/2008 Orders Only [facility] Dys uria (Primary Dx) [place] [facility], [address] [place] [address] Social History Tobacco Use [...] (ABNORMAL) MICRO EXAM-URINE (09/27/2008 3:52 PM CDT) [facility] Method Time Signature WBC Urine 5-10 (A) 0 - 2 [place] /[facility] RBC Urine 10-25 (A) 0 - 2 [place] /[facility] Squamous EPI Few FEW /LPF [facility] Bacteria Moderate (A) NEG /HPF [facility] Urine [facility] Specimen Anatomical Collection Method Collection Time Receive d Time (Source) Location / / Volume Laterality 09/27/2008 3:52 PM 9 3:54 CDT PM CDT Aleksandra Jimenez PA-C LABORATORY Performing Organization Address City/State/ZIP Code Phon e Number [facility] [address] [place] [address] [facility] URINE CULTURE (09/27/2008 3:52 PM CDT) Component Value Ref Test Analysis Performed At [facility] gist Range Method Time Signature Specimen Midstream Urine [facility] Description [facility] Culture Micro <10,000 colonies/mL Escherichia coli [facility] Sent report to [place] on 10.01.08 [facility] Report status FINAL [facility] 09/29/2008 [facility] Specimen Anatomical Collection Method [...] Organization Address City/State/ZIP Code Phon e Number [facility] [address] [place] [address] [facility] (ABNORMAL) UA MICRO IF POSITIVE (09/27/2008 3:52 PM CDT) [facility] Method Time Signature Color Urine Yellow [facility] Appearance Urine Clear [facility] Glucose Urine Negative NEG mg/dL [facility] Bilirubin Urine Negative NEG [facility] Ketones Urine Negative NEG mg/dL [facility] Specific [place] 1.025 1.003 - [place] Urine 1.035 [facility] Blood Urine Moderate (A) NEG [facility] pH Urine 7.0 5.0 - 7.0 [place] pH [facility] Protein Albumin Negative NEG mg/dL [facility] Urobilinogen 1.0 0.2 - 1.0 [place] Urine EU/dL [facility] Nitrite Urine Negative NEG [facility] Leukocyte Small (A) NEG [place] Esterase Urine [facility] Source Midstream [facility] Specimen Anatomical Collection Method Collection Time Receive d Time (Source) Location / / Volume Laterality 09/27/2008 3:52 PM 9 3:54 CDT PM CDT Aleksandra Jimenez PA-C LABORATORY Performing Organization Address City/State/ZIP Code Phon e Number [facility] [place] [address] [facility] documented in this encounter Visit Diagnoses Diagnosis Dysuria - Primary documented in this encounter Care Teams Activity Assistant Relationship Specialty Start Date End Date Melvin Palacios MD PCP - General 06/22/99 09/20/10 [address] [address] documented as of this encounter
--- OUTSIDE RECORDS SUMMARY | 2022-05-20 09:07 | XMS_ITS | Encounter Summary ---
:1975 Author Organization [place] Address [address] [place] [address] Care Team Providers Name Role Phone Melvin Palacios MD Primary Care Provider Reason for Visit Reason Comments Forms return to work RECHECK meds Encounter Details Date Type Department Care Team Description 04/12/2009 Office Visit [facility] Melvin Palacios MD Adjustment Disorder Clinic [place] [address] with Depressed Mood [address] [facility] (Primary Dx) [place] [address] [phone] Social History Tobacco Use Types Packs/Day Years [...] Comments Blood Pressure 95/67 04/12/2009 9:01 AM DIGITAL EXPERIENCE MANAGER Pulse 89 04/12/2009 9:01 AM DIGITAL EXPERIENCE MANAGER Temperature - - Respiratory Rate - - Oxygen Saturation - - Inhaled Oxygen Concentration - - Weight 74.4 kg (164 lb) 04/12/2009 9:01 AM DIGITAL EXPERIENCE MANAGER Height - - Body Mass Index [...] Continue curent med regimen. Her FML:A ends [phone] and I would support her return no earlier than tihat date TAL EXPERIENCE MANAGER documented in this encounter Nursing Notes 04/12/2009 [...] Primary documented in this encounter Care Teams Sweet Potato Disintegrator Relationship Specialty Start Date End Date Melvin Palacios MD PCP - General 06/22/99 09/20/10 [address] [address] documented as of this encounter
--- OUTSIDE RECORDS SUMMARY | 2022-05-20 09:07 | XMS_ITS | Encounter Summary ---
:1975 Author Organization [place] Address [address] [place] [address] Care Team Providers Name Role Phone Melvin Palacios MD Primary Care Provider Reason for Visit Reason Onset Date Comments Refill Request 06/17/2009 CITALOPRAM 40MG Encounter Details Date Type Department Care Team Description 06/17/2009 Refill [facility] Melvin Palacios MD Refill Request Clinic [place] [address] [place] [address] (CITALOPRAM 40MG) [address] [place] [address] [place] [address] [phone] Social History Tobacco Use Types Packs/Day Years [...] Unable to fill PSO Stacey Torres RN YTICAL TECH Telephone Encounter - Kristine Bermudez - 06/17/2009 10:26 AM CST Last filled 05/17/09 Qty 30 Kristine [facility] CR RX YTICAL TECH documented in this encounter Plan of Treatment Not on filedocumented as of this encounter Visit Diagnoses Diagnosis DEPRESSIVE DISORDER NEC Depressive disorder, not elsewhere class ified ANXIETY STATE NOS Anxiety state, unspecified documented in this encounter Care Teams Resident Care Assistant Relationship Specialty Start Date End Date Melvin Palacios MD PCP - General 06/22/99 09/20/10 [address] [address] documented as of this encounter
--- OUTSIDE RECORDS SUMMARY | 2022-05-20 09:07 | XMS_ITS | Encounter Summary ---
:1975 Author Organization [place] Address [address] [place] [address] Care Team Providers Name Role Phone Melvin Palacios MD Primary Care Provider Esmer Roland MD Primary Care Provider [phone] Yony Garcia PA-C Primary Care Provider [phone] Yony Garcia PA-C Unavailable [phone] Erik Rivas Primary Care Provider Yony Garcia PA-C Unavailable [phone] Reason for Visit Reason Onset Date Comments Patient Inquiry 06/27/2009 [facility] Encounter Details Date Type Department Care Team Description 06/27/2009 [facility] Melvin Palacios MD Patient Inquiry Clinic [place] [address] ([facility] - [address] [place] [address]) [place], [place] [id number] (Wo rk) Social History Tobacco Use Types [...] - 06/27/2009 2:20 PM CST Arlene Reyes, Dielectric Testing Machine Operator Adalgisa with [facility] [phone] called regarding a release of information Dariana was requesting her records be faxed to her [facility]. Adalgisa states that she has been missing her appointments. Has had some no shows. Cancelled her Fridayappointment 30 mins before appt. Late session 05/16/09. Adalgisa has called her and left messages to return her call but she doesn't call back. They have a strick attendance agreement. FYI - you can close the encounter when finished. LY CHAIN CONSULTANT documented in this encounter Plan of Treatment Not on filedocumented as of this encounter Visit Diagnoses Not on filedocumented in this encounter Care Teams Pediatric Radiologist Relationship Specialty Start Date End Date Melvin Palacios MD PCP - General 06/22/99 09/20/10 [address] [place] [address] Esmer Roland, PCP - General Family Practice 09/21/10 01/29/17 Yony Garcia, PCP - General Physician Ice Skating Teacher - 01/30/17 07/23/18 PA-C Medical Yony Garcia, PCP - Assigned PCP 09/01/16 08/11/18 PA-C [address] [place] [address] Erik Rivas PCP - General Family Practice 07/24/[address] [address] Yony Garcia, Assigned PCP 09/01/16 [place] [address] [address] [place]IDE[place], [place] [address] documented as of this encounter
--- OUTSIDE RECORDS SUMMARY | 2022-05-20 09:07 | XMS_ITS | Encounter Summary ---
:1975 Author Organization [place] Address [address] [place] [address] Care Team Providers Name Role Phone Melvin Palacios MD Primary Care Provider Reason for Visit Reason Onset Date Comments Refill Request 05/01/2009 SUSAN Encounter Details Date Type Department Care Team Description 05/01/2009 Refill [facility] Melvin Palacios MD Refill Request (AMBIEN) Clinic [address] [place] [address] [phone] Social History Tobacco Use Types Packs/Day Years [...] for Esther, encounter closed Ernestine Salinas RN ANDROID DEVELOPER Telephone Encounter - Deidre Alas - 05/01/2009 2:09 PM CST LAST FILL DATE: 03/22/09 QTY: 30 Camilo Hammonds [facility] ANDROID DEVELOPER documented in this encounter Plan of Treatment Not on filedocumented as of this encounter Visit Diagnoses Diagnosis Adjustment disorder with anxiety documented in this encounter Care Teams Industrial Energy Engineer Relationship Specialty Start Date End Date Melvin Palacios MD PCP - General 06/22/99 09/20/10 [address] [address] documented as of this encounter
--- OUTSIDE RECORDS SUMMARY | 2022-05-20 09:08 | XMS_ITS | Encounter Summary ---
:1975 Author Organization [place] Address [address] [place] [address] Care Team Providers Name Role Phone Melvin Palacios MD Primary Care Provider Encounter Details Date Type Department Care Team Description 04/13/2008 Results Only [facility] Se zoran Marie MD [facility] EMERGENCY EVELYNY CHRISTOPHER PA Results [address] [place], [place] [address] (Wo rk) Social History [...] 7:19 AM Results f or this RETROPERITONEAL, SUPPLIER QUALITY procedure a re in COMPLETE the results section. documented in this encounter Results SONO RETROPERITONEAL (04/13/2008 7:19 AM SUPPLIER QUALITY) Anatomical Region Laterality Modality Other Specimen (Source) Anatomical Collection Method Collection Time Re ceived Time Location / / Volume Laterality 04/13/2008 7:19 AM SUPPLIER QUALITY Impressions 04/13/2008 7:29 AM SUPPLIER QUALITY US RETROPERITONEAL COMP Apr 13, 2008 7:19 [...] on filedocumented in this encounter Care Teams Vat Packer Relationship Specialty Start Date End Date Melvin Palacios MD PCP - General 06/22/99 09/20/10 [address] [address] [address] documented as of this encounter
--- OUTSIDE RECORDS SUMMARY | 2022-05-20 09:08 | XMS_ITS | Encounter Summary ---
:1975 Author Organization [place] Address [address] [place] [address] Care Team Providers Name Role Phone Melvin [...] as of this encounter Progress Notes Interface, Sharepoint Consultant - 08/26/2010 2:04 PM CDT Patient Status - Diagnosis/Procedure Nausea/Vomitting and Flank Pain - Physical status Stable (s/s of potential complications absent or manageable) Discharge Planning - Discharge From: [facility] - Patient Care Unit: [facility] 66 - U - Discharge To: Home/Alternative home - Phone number after [phone] discharge: - Method of discharge: Wheel Chair [...] Dr Gamez call: - Phone number of [facility] [phone] patient should call: Follow Up Care - [...] on filedocumented in this encounter Care Teams Crystal Finisher Relationship Specialty Start Date End Date Melvin Palacios MD PCP - General 06/22/99 09/20/10 [address] [address] documented as of this encounter
--- OUTSIDE RECORDS SUMMARY | 2022-05-20 09:08 | XMS_ITS | Encounter Summary ---
:1975 Author Organization [place] Address [address] [facility] [place] [address] Care Team Providers Name Role Phone Melvin Palacios MD Primary Care Provider Encounter Details Date Type Department Care Team Description 04/06/2008 Emergency room [facility] Delta Coello [facility] MD Negro Results Emergency Physic ians NICK [address] [place], [place] [address] (Wo rk) Social History Tobacco Use Types Packs/Day Years Used Date Smoking Tobacco: Former Alcohol Use Standard Drinks/Week Comments Yes 0 (1 standard drink = 0.6 oz pure alcoho l) social Sex Assigned at Date Recorded Not on file documented as of this encounter Progress Notes Delta Coello - 05/02/2008 5:30 AM CREW CHIEF FINAL CHIEF COMPLAINT: Abdominal pain. HISTORY OF [...] a strainer to collect the stone, taking mtdl-rzd-fuziwog ibuprofen 800 mg p.o. t.i.d. Flomax p.r.n. [...] MT: CATERINA Name: JUAN CARLOS VALDEZ Account: [id number] : 1975 Visit Date: 04/06/2008 Document: [id number] cc: Primary Care Physician CHIEF documented in this encounter Plan of Treatment Not on filedocumented as of this encounter Visit Diagnoses Not on filedocumented in this encounter Care Teams Assembly Machine Tender Relationship Specialty Start Date End Date Melvin Palacios MD PCP - General 06/22/99 09/20/10 [address] [id number] documented as of this encounter
--- OUTSIDE RECORDS SUMMARY | 2022-05-20 09:08 | XMS_ITS | Encounter Summary ---
:1975 Author Organization [place] Address [address] [place] [address] Care Team Providers Name Role Phone Melvin [...] as of this encounter Progress Notes Interface, Post Tensioning Ironworker Helper - 08/26/2010 2:09 PM CDT Allergies ?? IVP Dye;Hives f0?? Codeine;Other pard par Basic Medication Information - History taken from:: Patient Medications (#1-10) - Medication: Tramadol - Medication: Compazine - Medication: Tylenol ES RIC Hill (RN)[Signed 05:45] Authored: Allergies, Basic Medication Information, Medications (#1-10) Interface, Post Tensioning Ironworker Helper - 08/26/2010 2:08 PM CDT General Information - How to be addressed Dariana - Temporary living None required arrangements - Source of reliable Patient information - Arrived from Emergency department - linesperson to Jose lees: - Phone 1: [phone] - Patient's Spoken Language, Citizen Of [place] communication style Advance Directive - Do you [...] Considerations - Developmental None Learning Considerations - Spiritism Learning None Considerations Activity-Exercise/Self Care - Ambulation [...] not wish to have anyone contacted pastoral care/clergy/system administration advisor notified? Mutuality/Individual Preferences - What information [...] filedocumented in this encounter Care Teams Supervisor Ski Production Relationship Specialty Start Date End Date Melvin Palacios MD PCP - General 06/22/99 09/20/10 [address] [address] documented as of this encounter
--- OUTSIDE RECORDS SUMMARY | 2022-05-20 09:08 | XMS_ITS | Encounter Summary ---
:1975 Author Organization [place] Address [address] [place] [address] Care Team Providers Name Role Phone Melvin Palacios MD Primary Care Provider Reason for Visit Reason Onset Date Comments Refill Request 04/25/2008 Encounter Details Date Type Department Care Team Description 04/25/2008 Refill [facility] Gurmeet Jimenez th, Refill Request [place] [address]98[address] [facility], [facility] [address] [place] [address] [place] [phone] (Wo rk) Social History [...] vagina documented in this encounter Care Teams Departmental Buyer Relationship Specialty Start Date End Date Melvin Palacios MD PCP - General 06/22/99 09/20/10 [address] [address] documented as of this encounter
--- OUTSIDE RECORDS SUMMARY | 2022-05-20 09:08 | XMS_ITS | Encounter Summary ---
:1975 Author Organization [place] Address [facility] [place] [address] Care Team Providers Name Role Phone Melvin Palacios MD Primary Care Provider Reason for Visit Reason Onset Date Comments UTI 04/06/2008 Encounter Details Date Type Department Care Team Description 04/06/2008 Telephone [facility] Tobi West, MEREDITH [place] NICK-C [address] [facility], [address] [facility] 100 [place] [address] [place] [address] [phone] Social History Tobacco Use Types Packs/Day Years [...] BID x 7 days Martin Hauser MD [facility] Telephone Encounter - Melissa Leal - [...] ied documented in this encounter Care Teams Sales Strategy Manager Relationship Specialty Start Date End Date Melvin Palacios MD PCP - General 06/22/99 09/20/10 [address] [id number] documented as of this encounter
--- OUTSIDE RECORDS SUMMARY | 2022-05-20 09:08 | XMS_ITS | Encounter Summary ---
:1975 Author Organization [place] Address [address] [place] [address]. [place] [address] Care Team Providers Name Role Phone Melvin Palacios MD Primary Care Provider Encounter Details Date Type Department Care Team Description 03/17/2008 Telephone [facility] [address] [phone] [place] [address] (Wo rk) Social History Tobacco [...] on filedocumented in this encounter Care Teams Postal Worker Relationship Specialty Start Date End Date Melvin Palacios MD PCP - General 06/22/99 09/20/10 [address] [address] documented as of this encounter
--- OUTSIDE RECORDS SUMMARY | 2022-05-20 09:08 | XMS_ITS | Encounter Summary ---
:1975 Author Organization [place] Address [address] [place] [address] Care Team Providers Name Role Phone Melvin Palacios MD Primary Care Provider Encounter Details Date Type Department Care Team Description 03/17/2008 [facility] Tobi West NOT YET Clinic [place] ZENON [place] DEFINED (Primary Dx) [id number] [place] [address] [phone] Social History Tobacco Use Types Packs/Day Years Used Date Smoking Tobacco: Former Alcohol Use Standard Drinks/Week Comments Yes 0 (1 standard drink = 0.6 oz pure alcoho l) social Sex Assigned at Date Recorded Not on file documented as of this encounter Plan of Treatment Not on filedocumented as of this encounter Procedures Procedure Name Priority Date/Time Associated Diagnosis Comme [facility] X-RAY ABDOMEN AP VIEW (KUB) Routine 03/17/2008 DIAGNOSIS NOT YET DEFINED documented in this encounter Results X-RAY ABDOMEN 1 VW (03/17/2008) Anatomical Region Laterality Modality Other Narrative This result has an attachment that is no t available. Tobi West PA-C GENERAL IMAGING documented in this encounter Visit Diagnoses Diagnosis DIAGNOSIS NOT YET DEFINED - Primary documented in this encounter Care Teams Seo Marketing Specialist Relationship Specialty Start Date End Date Melvin Palacios MD PCP - General 06/22/99 09/20/10 [address] [id number] documented as of this encounter
--- OUTSIDE RECORDS SUMMARY | 2022-05-20 09:08 | XMS_ITS | Encounter Summary ---
:1975 Author Organization [place] Address [address] [place] [address] Care Team Providers Name Role Phone Melvin Palacios MD Primary Care Provider Encounter Details Date Type Department Care Team Description 08/02/2008 Telephone [facility] Gurmeet Jimenez, [place] ZENON [address] [facility] [place], [facility] [address] [place] [address] [place] [address] (Wo rk) Social History Tobacco Use [...] sent to pharm for probable sinus infection PIPE GAUGER Telephone Encounter - Aleksandra Jimenez - 08/02/2008 8:59 AM HOT PIPE GAUGER Staff Message copied by ALEKSANDRA JIMENEZ on FriAug 02, 2008 8:59 AM ------ Message from: DARIANA VALDEZ Created: Fri Aug 02, 2008 7:59 AM Regarding: antibiotic [place] I was wondering if you wouldn't mind sending a antibiotic RX to [facility]. My glands are still swollen and painful. I have been taking sudafed and Robitusin DM. My sinuses still are stuffy. Does the color of the mucus that is brought up from coughing make any difference? Thecolor is green (yuk)! At night the cough has become worse when laying down. Let me know what you think. Dariana PIPE GAUGER documented in this encounter Plan of Treatment Not on filedocumented as of this encounter Visit Diagnoses Diagnosis Acute maxillary sinusitis - Primary documented in this encounter Care Teams Printer Assistant Relationship Specialty Start Date End Date Melvin Palacios MD PCP - General 06/22/99 09/20/10 [address] [id number] documented as of this encounter
--- OUTSIDE RECORDS SUMMARY | 2022-05-20 09:08 | XMS_ITS | Encounter Summary ---
:1975 Author Organization [place] Address [address] [place] [address] Care Team Providers Name Role Phone Melvin Palacios MD Primary Care Provider Reason for Visit Reason Comments Headache Encounter Details Date Type Department Care Team Description 07/18/2008 Office Visit [facility] [place] (Primary Dx) [facility] [address] [place], [place] [phone] Social History Tobacco Use Types Packs/Day Years Used Date Smoking Tobacco: Former Alcohol Use Standard Drinks/Week Comments Yes 0 (1 standard drink = 0.6 oz pure alcoho l) social Sex Assigned at Date Recorded Not on file documented as of this encounter Last Filed Vital Signs Vital Sign Reading Time Taken Comments Blood Pressure 90/60 07/18/2008 3:30 PM HEALTH INFORMATION MANAGERS Pulse 70 07/18/2008 3:30 PM HEALTH INFORMATION MANAGERS Temperature - - Respiratory Rate - - [...] home, follow up tomorrow if symptoms persist TH INFORMATION MANAGERS documented in this encounter Nursing Notes 07/18/2008 3:30 PM CST >> MELISSA JANSEN Mon Jul 18, 2008 1:13 PM Injections given per EH. See mednotes for details. Melissa Robersonill, [facility] >> LIBRADO STEVENSON [facility] Jul 18, 2008 11:24 AM Darianasa Verito [...] migrainosus documented in this encounter Care Teams Static Balancer Relationship Specialty Start Date End Date Melvin Palacios MD PCP - General 06/22/99 09/20/10 [address] [address] documented as of this encounter
--- OUTSIDE RECORDS SUMMARY | 2022-05-20 09:08 | XMS_ITS | Encounter Summary ---
:1975 Author Organization [place] Address [address] [place] [address] Care Team Providers Name Role Phone Melvin Palacios MD Primary Care Provider Reason for Visit Reason Onset Date Comments Formulary Issue 02/17/2008 LUNESTA 3MG Encounter Details Date Type Department Care Team Description 02/17/2008 Telephone [facility] Melvin Palacios MD Formulary Issue Clinic [place] [address] (LUNESTA 3MG) [address] [place] [phone] (Wo rk) Social History Tobacco Use Types [...] Awaiting Approval and/or Denial Note. 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 THANK YOU. KRISTINE BERMUDEZ [facility] CR RX documented in this encounter Plan of Treatment Not on filedocumented as of this encounter Visit Diagnoses Diagnosis Depressive disorder, not elsewhere class ified Insomnia Insomnia, unspecified documented in this encounter Care Teams Coal Mine Inspector Relationship Specialty Start Date End Date Melvin Palacios MD PCP - General 06/22/99 09/20/10 [address] [address] documented as of this encounter
--- OUTSIDE RECORDS SUMMARY | 2022-05-20 09:08 | XMS_ITS | Encounter Summary ---
:1975 Author Organization [place] Address [facility] [place] [address] Care Team Providers Name Role Phone Melvin Palacios MD Primary Care Provider Reason for Referral Referral not Required - Closed Specialty Diagnoses / Procedures Referred By Contact Refer red To Contact Diagnoses Gross hematuria Aleksandra Jimenez PA-C [facility] [address] [place] [address] [address] [facility] [address] [address] [phone] [place] [address] Phone: [phone] Fax: Referral ID Status Reason Start Date Expiration Date Visits Requ ested Visits Authorized [id number] Closed 03/17/2008 06/08/2011 1 1 Reason for Visit Reason Comments Urinary Problem Encounter Details Date Type Department Care Team Description [facility] [place] Yeast Infection of the Vagina [facility] [address] [place], [place] [phone] [phone] Social History Tobacco Use Types Packs/Day Years [...] 03/17/2008 11:15 AM CDT >> LIBRADO STEVENSON [facility] Mar 17, 2008 11:46 AM Dariana [...] (ABNORMAL) MICRO EXAM-URINE (03/17/2008 8:49 AM CDT) [facility] Method Time Signature WBC Urine O - 2 0 - 2 [place] [facility] RBC Urine >100 (A) 0 - 2 [place] [facility] Squamous EPI Few FEW /LPF [facility] Bacteria Moderate (A) NEG /HPF [place] Urine [facility] Yeast Urine Few (A) NEG /HPF [facility] Mucous Urine Present (A) NEG /LPF [facility] Specimen Anatomical Collection Method Collection Time Receive d Time (Source) Location / / Volume Laterality 03/17/2008 8:49 AM 8 8:51 CDT AM CDT Aleksandra Jimenez PA-C LABORATORY Performing Organization Address City/[facility]/ZIP Code Phon e Number [facility] [id number] [place] [address] [phone] [facility] CULTURE, URINE (MISYS) (03/17/2008 8:49 AM CDT) [facility] Method [place] Signature Specimen Midstream [place] Description Urine [facility] Culture Micro No growth [facility] Report status FINAL [place] 03/19/2008 [facility] Specimen Anatomical Collection Method Collection Time Receive d Time (Source) Location / / Volume Laterality 03/17/2008 8:49 AM 8 8:51 CDT AM CDT Authorizing Provider Result Ester Jimenez PA-C LABORATORY Performing Organization Address City/State/ZIP Code Phon e Number [facility] [address] [address] HOSP[facility] (ABNORMAL) UA MICRO IF POSITIVE (03/17/2008 8:49 AM CDT) [facility] Method Time Signature Color Urine Red [facility] Appearance Urine Cloudy [facility] Glucose Urine Negative NEG mg/dL [facility] Bilirubin Urine Negative NEG [facility] Ketones Urine Negative NEG mg/dL [facility] Specific [place] 1.025 1.003 - [place] Urine 1.035 [facility] Blood Urine Large (A) NEG [facility] pH Urine 5.5 5.0 - 7.0 [place] pH [facility] Protein Albumin >=300 (A) NEG mg/dL [place] Urine [facility] Urobilinogen 0.2 0.2 - 1.0 [place] Urine EU/dL [facility] Nitrite Urine Negative NEG [facility] Leukocyte Negative NEG [place] Esterase Urine [facility] Source Midstream [place] Urine [facility] Specimen Anatomical Collection Method Collection Time Receive d Time (Source) Location / / Volume Laterality 03/17/2008 8:49 AM 8 8:51 CDT AM CDT Aleksandra Jimenez PA-C LABORATORY Performing Organization Address City/State/ZIP Code Phon e Number [facility] [id number] [place] [address] [phone] [facility] documented in this encounter Visit Diagnoses Diagnosis Gross hematuria - Primary Yeast infection of the vagina Candidiasis of vulva and vagina documented in this encounter Care Teams Requirements Manager Relationship Specialty Start Date End Date Melvin Palacios MD PCP - General 06/22/99 09/20/10 [address] [address] documented as of this encounter
--- OUTSIDE RECORDS SUMMARY | 2022-05-20 09:08 | XMS_ITS | Encounter Summary ---
:1975 Author Organization [place] Address [address] [place] [address]. [place] [address] Care Team Providers Name Role Phone Melvin Palacios MD Primary Care Provider Reason for Visit Reason Comments Medication Request Depression Encounter Details Date Type Department Care Team Description 05/19/2008 Office Visit [facility] Tobi West DEPRESSYobani VE DISORDER NEC; Clinic [place] ZENON Maddox ANXIETY STATE NOS; [address] [facility] [address] [facility] [place] [address] [phone] Social History Tobacco Use Types Packs/Day Years Used Date Smoking Tobacco: Former Alcohol Use Standard Drinks/Week Comments Yes 0 (1 standard drink = 0.6 oz pure alcoho l) social Sex Assigned at Date Recorded Not on file documented as of this encounter Last Filed Vital Signs Vital Sign Reading Time Taken Comments Blood Pressure 110/66 05/19/2008 3:45 PM CANDY ROLLING MACHINE OPERATOR Pulse 64 05/19/2008 3:45 PM CANDY ROLLING MACHINE OPERATOR Temperature - - Respiratory Rate - - Oxygen Saturation - - Inhaled Oxygen Concentration - - Weight 80.3 kg (177 lb) 05/19/2008 3:45 PM CANDY ROLLING MACHINE OPERATOR Height - - Body Mass [...] 50 MG OR TABS As per above. Y ROLLING MACHINE OPERATOR documented in this encounter Nursing Notes 05/19/2008 3:45 PM CST >> NIURKA ARANA [facility] May 19, 2008 3:51 PM Patient [...] unspecified documented in this encounter Care Teams Gear Machinist Relationship Specialty Start Date End Date Melvin Palacios MD PCP - General 06/22/99 09/20/10 [address] [address] documented as of this encounter
--- OUTSIDE RECORDS SUMMARY | 2022-05-20 09:08 | XMS_ITS | Encounter Summary ---
:1975 Author Organization [place] Address [address] [place] [address] Care Team Providers Name Role Phone Melvin Palacios MD Primary Care Provider Reason for Visit Reason Comments Depression FU on Lexapro dosage Anxiety Encounter Details Date Type Department Care Team Description 01/26/2008 Office Visit [facility] Tobi West DEPRESSYobani VE DISORDER NEC; Clinic [place] ZENON [place] [address] [facility] [address] [place] [address] [phone] Social History Tobacco Use Types Packs/Day Years [...] BP completed using cuff size large Melissa Ricks/EMBOSSING TOOL SETTER documented in this encounter Plan of Treatment Not on filedocumented as of this encounter Visit Diagnoses Diagnosis DEPRESSIVE DISORDER NEC Depressive disorder, not elsewhere class ified ANXIETY STATE NOS Anxiety state, unspecified documented in this encounter Care Teams Wound Care Technician Relationship Specialty Start Date End Date Melvin Palacios MD PCP - General 06/22/99 09/20/10 [address] [address] documented as of this encounter
--- OUTSIDE RECORDS SUMMARY | 2022-05-20 09:08 | XMS_ITS | Encounter Summary ---
:1975 Author Organization [place] Address [address] [place] [address]. [place] [address] Care Team Providers Name Role Phone Melvin Palacios MD Primary Care Provider Reason for Visit Reason Comments Headache Encounter Details Date Type Department Care Team Description 02/10/2008 Office Visit [facility] [place] law[place] Headaches [place] (Primary Dx) [facility], [address] [place] [address] Social History Tobacco [...] migrainosus documented in this encounter Care Teams Compliance Attorney Relationship Specialty Start Date End Date Melvin Palacios MD PCP - General 06/22/99 09/20/10 [address] [address] documented as of this encounter
--- OUTSIDE RECORDS SUMMARY | 2022-05-20 09:08 | XMS_ITS | Encounter Summary ---
:1975 Author Organization [place] Address [address] [place] [address] Care Team Providers Name Role Phone Melvin [...] as of this encounter Progress Notes Interface, Tucking Machine Operator - 08/26/2010 2:27 PM CDT Allergies ?? [...] on filedocumented in this encounter Care Teams Instructional Technology Coordinator Relationship Specialty Start Date End Date Melvin Palacios MD PCP - General 06/22/99 09/20/10 [address] [address] documented as of this encounter
--- OUTSIDE RECORDS SUMMARY | 2022-05-20 09:08 | XMS_ITS | Encounter Summary ---
:1975 Author Organization [place] Address [address] [place] [address] Care Team Providers Name Role Phone Melvin [...] as of this encounter Progress Notes Interface, Compressed Air Pile Driver Operator - 08/26/2010 2:20 PM CDT General Information - How to be addressed Dariana - wagon driver salesperson to Jose Osman () notify: - Phone 1: [phone] - Patient's Spoken Language, Sudanese communication style Advance Directive - Do you [...] filedocumented in this encounter Care Teams Medical Device Sales Representative Relationship Specialty Start Date End Date Melvin Palacios MD PCP - General 06/22/99 09/20/10 [address] [address] documented as of this encounter
--- OUTSIDE RECORDS SUMMARY | 2022-05-20 09:08 | XMS_ITS | Encounter Summary ---
:1975 Author Organization [place] Address [address] [place] [address] Care Team Providers Name Role Phone Melvin [...] as of this encounter Progress Notes Interface, Web Art Director - 08/26/2010 2:19 PM CDT Other Discharge [...] on filedocumented in this encounter Care Teams Women Designer Relationship Specialty Start Date End Date Melvin Palacios MD PCP - General 06/22/99 09/20/10 [address] [address] documented as of this encounter
--- OUTSIDE RECORDS SUMMARY | 2022-05-20 09:08 | XMS_ITS | Encounter Summary ---
:1975 Author Organization [place] Address [address] [place] [address] Care Team Providers Name Role Phone Melvin [...] Routine 04/13/2008 6:07 AM Results for this NEWS AGENT procedure are i n the results section. CBC WITH PLATELETS & STAT 04/13/2008 6:02 AM R esults for this DIFFERENTIAL NEWS AGENT procedure are i n the results section. ROUTINE UA WITH STAT 04/13/2008 6:02 AM Result s for this MICROSCOPIC NEWS AGENT procedure are i n the results section. BASIC METABOLIC PANEL STAT 04/13/2008 6:02 AM Results for this NEWS AGENT procedure are i n the results section. documented in this encounter Results Urine culture (04/13/2008 6:07 AM NEWS AGENT) [facility] Method Time Signature Specimen Midstream Urine MISYS Description Culture Micro <10,000 MISYS colonies/mL Escherichia coli Comment: Faxed to [phone] on 04/15/08 H M Micro Report Status FINAL 04/15/2008 MIS YS Specimen Anatomical Collection Method Collection Time Receive d Time (Source) Location / / Volume Laterality 04/13/2008 6:07 AM 8 7:08 NEWS AGENT AM NEWS AGENT Organism Antibiotic Method Susceptibility <10,000 colonies/ml Ampicillin [...] CBC with platelets differential (04/13/2008 6:02 AM NEWS AGENT) [facility] Method Time Signature MCV 89 78 [...] Volume Laterality 04/13/2008 6:02 AM 8 6:10 NEWS AGENT AM NEWS AGENT Donal Marie MD LAB - BLOOD ORDERABLES Performing Organization Address City/State/ZIP Code Phon e Number MISYS Basic metabolic panel (04/13/2008 6:02 AM NEWS AGENT) P athologist Signature Sodium 141 133 - [...] Volume Laterality 04/13/2008 6:02 AM 8 6:10 NEWS AGENT AM NEWS AGENT Donal Marie MD LAB - BLOOD ORDERABLES Performing Organization Address City/State/ZIP Code Phon e Number MISYS (ABNORMAL) Routine UA with microscopic (04/13/2008 6:02 AM NEWS AGENT) [facility] Method Time Signature Source Midstream MISYS Urine Color Urine Yellow MISYS Appearance Urine Clear MISYS Glucose Urine Negative NEG mg/dL MISYS Bilirubin Urine Negative NEG MISYS Ketones Urine 40 (A) NEG mg/dL MISYS Specific [place] 1.026 1.003 - MISYS Urine 1.035 Blood [...] Volume Laterality 04/13/2008 6:02 AM 8 6:10 NEWS AGENT AM NEWS AGENT Donal H Frank BANERJEE LAB - URINE ORDERABLES Performing Organization Address City/[facility] Phon e Number MISYS documented in this encounter Visit Diagnoses Not on filedocumented in this encounter Care Teams Slime Plant Operator Relationship Specialty Start Date End Date Melvin Palacios MD PCP - General 06/22/99 09/20/10 [address] [id number] documented as of this encounter
--- OUTSIDE RECORDS SUMMARY | 2022-05-20 09:08 | XMS_ITS | Encounter Summary ---
:1975 Author Organization [place] Address [address] [place] [address] Care Team Providers Name Role Phone Melvin Palacios MD Primary Care Provider Encounter Details Date Type Department Care Team Description 04/08/2008 Results Only [facility] William Gamez MD [facility] Results [address] [id number] [place] [id number] (Wo rk) Social History Tobacco Use Types [...] filedocumented in this encounter Care Teams Hand Stoner Relationship Specialty Start Date End Date Melvin Palacios MD PCP - General 06/22/99 09/20/10 [address] [id number] documented as of this encounter
--- OUTSIDE RECORDS SUMMARY | 2022-05-20 09:08 | XMS_ITS | Encounter Summary ---
:1975 Author Organization [place] Address [address] [place] [address] Care Team Providers Name Role Phone Melvin Palacios MD Primary Care Provider Encounter Details Date Type Department Care Team Description 04/13/2008 Admission H&P [facility] William Black, (Dinkey Motor Operator) [facility] Results [facility] [address] [id number] [place] [address] (Wo rk) Social History Tobacco Use Types Packs/Day Years Used Date Smoking Tobacco: Former Alcohol Use Standard Drinks/Week Comments Yes 0 (1 standard drink = 0.6 oz pure alcoho l) social Sex Assigned at Date Recorded Not on file documented as of this encounter Progress Notes William Black - 04/23/2008 8:21 AM MANAGER SHIP FINAL Dariana Valdez is a 32-year-old female [...] PA-C MT: alise Name: DARIANA VALDEZ Account: [id number] : 1975 Admitted: [id number] Document: [id number] GER SHIP documented in this encounter Plan of Treatment Not on filedocumented as of this encounter Visit Diagnoses Not on filedocumented in this encounter Care Teams Wheel Of Fortune Dealer Relationship Specialty Start Date End Date Melvin Palacios MD PCP - General 06/22/99 09/20/10 [address] [address] documented as of this encounter
--- OUTSIDE RECORDS SUMMARY | 2022-05-20 09:08 | XMS_ITS | Encounter Summary ---
:1975 Author Organization [place] Address [address] [place] [address] Care Team Providers Name Role Phone Melvin Palacios MD Primary Care Provider Reason for Visit Reason Comments Urinary Problem Encounter Details Date Type Department Care Team Description 03/10/[address] [facility] Barbara, UTI (Urina ry Tract Infection) (Primary Dx); [facility] [place] Hematuria [facility] IC [address] [place], [place] [phone] Social History Tobacco Use Types Packs/Day Years [...] 3:34:26 PM Modules accepted: Orders, Medications Librado iYp - 03/10/2008 8:15 AM CDT SUBJECTIVE: Dariana [...] (ABNORMAL) MICRO EXAM-URINE (03/10/2008 8:10 AM CDT) [facility] Method Time Signature WBC Urine >100 (A) 0 - 2 [place] /HPF [facility] RBC Urine >100 (A) 0 - 2 [place] /HPF [facility] Squamous EPI Few FEW /LPF [facility] Bacteria Urine Many (A) NEG /HPF [facility] Mucous Urine Present (A) NEG /LPF [facility] Specimen Anatomical Collection Method Collection Time Receive d Time (Source) Location / / Volume Laterality 03/10/2008 8:10 AM 8 8:12 CDT AM CDT Aleksandra Jimenez PA-C LABORATORY Performing Organization Address City/State/Z[place] [address] [facility] CULTURE, URINE (MISYS) (03/10/2008 8:10 AM CDT) Component Value Ref Test Analysis Performed At [facility] Range Method Time Signature Specimen Midstream Urine [facility] Culture Micro 50 to 100,000 [place] colonies/mL [facility] coli Report status FINAL [place] 03/12/2008 [facility] Specimen Anatomical [...] Address City/State/ZIP Code Phon e Number M [facility] [address] [place] [address] HOSPITAL [facility] (ABNORMAL) UA MICRO IF POSITIVE (03/10/2008 8:10 AM CDT) [facility] Method Time Signature Color Urine Red [facility] Appearance Urine Cloudy [facility] Glucose Urine Negative NEG mg/dL [facility] Bilirubin Urine Negative NEG [facility] Ketones Urine Trace (A) NEG mg/dL [facility] Specific [place] 1.025 1.003 - [place] Urine 1.035 [facility] Blood Urine Large (A) NEG [facility] pH Urine 5.5 5.0 - 7.0 [place] pH [facility] Protein Albumin 100 (A) NEG mg/dL [place] Urine [facility] Urobilinogen 0.2 0.2 - 1.0 [place] Urine EU/dL [facility] Nitrite Urine Positive (A) NEG [facility] Leukocyte Small (A) NEG [place] Esterase Urine [facility] Source Midstream [place] Urine [facility] Specimen Anatomical Collection Method Collection Time Receive d Time (Source) Location / / Volume Laterality 03/10/2008 8:10 AM 8:12 CDT AM CDT Aleksandra Jimenez PA-C LABORATORY Performing Organization Address City/State/ZIP Code Phon e Number [facility] [place] [place] [address] [facility] documented in this encounter Visit Diagnoses Diagnosis UTI (urinary tract infection) - Primary Urinary tract infection, site not specif ied Hematuria Hematuria, unspecified documented in this encounter Care Teams Vocational Training Director Relationship Specialty Start Date End Date Melvin Palacios MD PCP - General 06/22/99 09/20/10 [address] [id number] documented as of this encounter
--- OUTSIDE RECORDS SUMMARY | 2022-05-20 09:08 | XMS_ITS | Encounter Summary ---
:1975 Author Organization [place] Address [address] [place] [address] Care Team Providers Name Role Phone Melvin Palacios MD Primary Care Provider Esmer Roland MD Primary Care Provider [phone] Yony Garcia PA-C Primary Care Provider [phone] Yony Garcia PA-C Unavailable [phone] Erik Rivas Primary Care Provider Yony Garcia PA-C Unavailable [phone] Reason for Visit Reason Onset Date Comments Refill Request 02/16/2008 [place] Encounter Details Date Type Department Care Team Description 02/16/[address] [facility] Melvin Palacios MD Refill Request [facility] [place] [address] [place] [address] (Lunesta) [address] [place] [address] [place] [id number] [phone] (Wo rk) Social History Tobacco Use Types [...] - 02/16/2008 11:01 AM CDT Message from [employer]: Original authorizing provider: Tobi Barber PA-C Dariana Osman would like a refill of the following medications: LUNESTA 3 MG OR TABS [Tobi Barber PA-C] Preferred pharmacy: [facility] Comment: I have been using my [...] documented in this encounter Care Teams Computer Equipment Installer Relationship Specialty Start Date End Date Melvin Palacios MD PCP - General 06/22/99 09/20/10 [address] [place] [address] Esmer Roland, PCP - General Family Practice 09/21/10 01/29/17 Yony Garcia, PCP - General Physician Product Management Manager - 01/30/17 07/23/18 PA-C Medical Yony Garcia, PCP - Assigned PCP 09/01/16 08/11/18 PA-C [id number] [address] [address] Erik Rivas PCP - General Family Practice 07/24/[address] [address] Yony Garcia, Assigned PCP 09/01/16 PA-C [id number] [address] [id number] documented as of this encounter
--- OUTSIDE RECORDS SUMMARY | 2022-05-20 09:08 | XMS_ITS | Encounter Summary ---
:1975 Author Organization [place] Address [address] [place] [address] Care Team Providers Name Role Phone Melvin Palacios MD Primary Care Provider Reason for Visit Reason Onset Date Comments Nurse Advice Line 03/02/2008 celexa Encounter Details Date Type Department Care Team Description 03/02/2008 [facility]vin Palacios MD Nurse Advice Line [facility] [place] [address] [place] (celexa) [address] [place] [address] [phone] (Wo rk) Social History Tobacco Use Types [...] - 03/02/2008 2:13 PM CDT Message from [employer]: Original authorizing provider: Tobi Barber PA-Csa Vishal [...] unspecified documented in this encounter Care Teams Market Stall Vendor Relationship Specialty Start Date End Date Melvin Palacios MD PCP - General 06/22/99 09/20/10 [address] [address] documented as of this encounter
--- OUTSIDE RECORDS SUMMARY | 2022-05-20 09:08 | XMS_ITS | Encounter Summary ---
:1975 Author Organization [place] Address [address] [facility] [place] [address] Care Team Providers Name Role Phone Melvin Palacios MD Primary Care Provider Encounter Details Date Type Department Care Team Description 04/08/2008 Operative Report [facility] William Black, (Ash Kier Boiler) [facility] Results [facility] [address] [id number] [place]IFT [id number] (Wo rk) Social History Tobacco Use Types Packs/Day Years Used Date Smoking Tobacco: Former Alcohol Use Standard Drinks/Week Comments Yes 0 (1 standard drink = 0.6 oz pure alcoho l) social Sex Assigned at Date Recorded Not on file documented as of this encounter Progress Notes William Black - 04/23/2008 8:20 AM PATIENT ACCOUNTING REPRESENTATIVE FINAL PREOPERATIVE DIAGNOSIS: Left ureteral stone. POSTOPERATIVE [...] then the retrograde performed and a 6 Spanish x 24 cm double-Jureteral stent was passed over the remaining guidewire and verified to be in position by fluoroscopyand direct vision. The bladder was emptied and the procedure was complete. Electronically signed on 04/23/2008 08:20 by WILLIAM BLACK MD MT: nikita Name: DARIANA VALDEZ Account: [id number] : 1975 Procedure Date: 04/08/2008 Document: [id number] ENT ACCOUNTING REPRESENTATIVE documented in this encounter Plan of Treatment Not on filedocumented as of this encounter Visit Diagnoses Not on filedocumented in this encounter Care Teams Cyber Security Architect Relationship Specialty Start Date End Date Melvin Palacios MD PCP - General 06/22/99 09/20/10 [address] [id number] documented as of this encounter
--- OUTSIDE RECORDS SUMMARY | 2022-05-20 09:08 | XMS_ITS | Encounter Summary ---
:1975 Author Organization [place] Address [address] [place] [address] Care Team Providers Name Role Phone Melvin Palacios MD Primary Care Provider Encounter Details Date Type Department Care Team Description 06/28/2008 Office Visit [facility] Barbara, UTI (Urina ry Tract Clinic [place] Infection) (Primary Dx) [facility] IC [address] [place], [place] [address] Social History Tobacco Use Types [...] worsen or fail to improve as anticipated. INSPECTOR documented in this encounter Plan of Treatment Not on filedocumented as of this encounter Procedures Procedure Name Priority Date/Time Associated Diagnosis Comme nts HCL CULTURE, URINE Routine 06/28/2008 9:52 AM UTI (Urinary Tra ct Results for this CELL INSPECTOR Infection) procedure are i n the results section. HCL UA MICRO IF Routine 06/28/2008 9:43 AM UTI (Urinary Tract Results for this POSITIVE CELL INSPECTOR Infection) procedure are i n the results section. CL AFF MICRO Routine 06/28/2008 9:43 AM UTI (Urinary Tract Res ults for this EXAM-URINE CELL INSPECTOR Infection) procedure are i n the results section. documented in this encounter Results URINE CULTURE (06/28/2008 9:52 AM CELL INSPECTOR) [facility] Method Time Signature Specimen Midstream [place] Description Urine [facility] Culture Micro No growth [facility] Report status FINAL [place] 06/30/2008 [facility] Specimen Anatomical Collection Method Collection Time Receive d Time (Source) Location / / Volume Laterality 06/28/2008 9:52 AM 9 9:54 CELL INSPECTOR AM CELL INSPECTOR Aleksandra Jimenez PA-C LABORATORY Performing Organization Address City/State/ZIP Code Phon e Number M [facility] [address] [place] [address] [facility] (ABNORMAL) MICRO EXAM-URINE (06/28/2008 9:43 AM CELL INSPECTOR) [facility] Method Time Signature WBC Urine 50-100 (A) 0 - 2 [place] /HPF [facility] RBC Urine >100 (A) 0 - 2 [place] /HPF [facility] Squamous EPI Few FEW /LPF [facility] Bacteria Urine Few (A) NEG /HPF [facility] Mucous Urine Present (A) NEG /LPF [facility] Specimen Anatomical Collection Method Collection Time Receive d Time (Source) Location / / Volume Laterality 06/28/2008 9:43 AM 9 9:45 CELL INSPECTOR AM CELL INSPECTOR Aleksandra Jimenez PA-C LABORATORY Performing Organization Address City/[facility] Code Phon e Number [facility] [place] [address] [facility] (ABNORMAL) UA MICRO IF POSITIVE (06/28/2008 9:43 AM CELL INSPECTOR) [facility] Method Time Signature Color Urine Yellow [facility] Appearance Urine Cloudy [facility] Glucose Urine Negative NEG mg/dL [facility] Bilirubin Urine Negative NEG [facility] Ketones Urine Negative NEG mg/dL [facility] Specific [place] 1.025 1.003 - [place] Urine 1.035 [facility] Blood Urine Large (A) NEG [facility] pH Urine 5.0 5.0 - 7.0 [place] pH [facility] Protein Albumin Trace (A) NEG mg/dL [facility] Urobilinogen 0.2 0.2 - 1.0 [place] Urine EU/dL [facility] Nitrite Urine Negative NEG [facility] Leukocyte Moderate (A) NEG [place] Esterase Urine [facility] Source Midstream [facility] Specimen Anatomical Collection Method Collection Time Receive d Time (Source) Location / / Volume Laterality 06/28/2008 9:43 AM 9 9:45 CELL INSPECTOR AM CELL INSPECTOR Aleksandra Jimenez PA-C LABORATORY Performing Organization Address City/[facility] Code Phon e Number [facility] [place] [address] [facility] documented in this encounter Visit Diagnoses Diagnosis UTI (urinary tract infection) - Primary Urinary tract infection, site not specif ied documented in this encounter Care Teams Pc Installation Engineer Relationship Specialty Start Date End Date Melvin Palacios MD PCP - General 06/22/99 09/20/10 [address] [id number] documented as of this encounter
--- OUTSIDE RECORDS SUMMARY | 2022-05-20 09:08 | XMS_ITS | Encounter Summary ---
:1975 Author Organization [place] Address [address] [place] [address] Care Team Providers Name Role Phone Melvin Palacios MD Primary Care Provider Encounter Details Date Type Department Care Team Description 04/06/2008 Historic Results INTERFACED REPORT Vijaya Bhat MD [facility] [address] [place], [place] [address] (Wo rk) Social History [...] Canceled, Test credited 60 - 99 mg/dL [place] SYS Comment: Unsatisfactory specimen - hemolyzed BRODIE [...] Canceled, Test credited 6 - 17 mmol/L [place] SYS Comment: Unsatisfactory specimen - hemolyzed BRODIE [...] Ketones Urine Negative NEG MIS[place] mg/dL Specific [place] 1.014 1.003 - MISYS Urine 1.035 Blood [...] MISYS Urine culture (04/06/2008 7:00 PM CDT) [facility] Method Time Signature Specimen Unspecified MISYS [...] on filedocumented in this encounter Care Teams Stakeholder Manager Relationship Specialty Start Date End Date Melvin Palacios MD PCP - General 06/22/99 09/20/10 [address] [address] documented as of this encounter
--- OUTSIDE RECORDS SUMMARY | 2022-05-20 09:08 | XMS_ITS | Encounter Summary ---
:1975 Author Organization [place] Address [address] [place] [address] Care Team Providers Name Role Phone Melvin Palacios MD Primary Care Provider Encounter Details Date Type Department Care Team Description 03/17/2008 Results Only [facility] Gurmeet Jimenez , Hospital Results PA-C [facility] [address] [place] [address] (Wo rk) Social History Tobacco [...] on filedocumented in this encounter Care Teams Writer Producer Relationship Specialty Start Date End Date Melvin Palacios MD PCP - General 06/22/99 09/20/10 [address] [address] documented as of this encounter
--- OUTSIDE RECORDS SUMMARY | 2022-05-20 09:09 | XMS_ITS | Encounter Summary ---
:1975 Author Organization [place] Address [address] [place] [address]. [place] [address] Care Team Providers Name Role Phone Melvin Palacios MD Primary Care Provider Reason for Visit Reason Comments Depression FU on Depression meds - hasn 't noticed a lot of change. Seems to be a little bit more relaxed. Encounter Details Date Type Department Care Team Description 10/15/2007 Office Visit [facility] [place] DEPRESSYobani VE DISORDER NEC; [facility] [place] GENERALIZED ANXIETY DIS [address] [place] [phone] Social History Tobacco Use Types Packs/Day Years [...] disorder documented in this encounter Care Teams Campus Recruiting Internship Relationship Specialty Start Date End Date Melvin Palacios MD PCP - General 06/22/99 09/20/10 [address] [id number] documented as of this encounter
--- OUTSIDE RECORDS SUMMARY | 2022-05-20 09:09 | XMS_ITS | Encounter Summary ---
:1975 Author Organization [place] Address [address] [place] [address]. [place] [address] Care Team Providers Name Role Phone Melvin Palacios MD Primary Care Provider Encounter Details Date Type Department Care Team Description 08/11/2007 Telephone [facility] [place] [phone] [place] [address] (Wo rk) Social History Tobacco Use Types Packs/Day Years Used Date Smoking Tobacco: Former Alcohol Use Standard Drinks/Week Comments Yes 0 (1 standard drink = 0.6 oz pure alcoho l) social Sex Assigned at Date Recorded Not on file documented as of this encounter Miscellaneous Notes Telephone Encounter - Librado Yip - 08/11/2007 1:54 PM CST Pt requesting sign up for [email or web address], form filled out and sent to abstracting. GER TALENT MANAGEMENT documented in this encounter Plan of Treatment Not on filedocumented as of this encounter Visit Diagnoses Not on filedocumented in this encounter Care Teams Director Of Sustainability Relationship Specialty Start Date End Date Melvin Palacios MD PCP - General 06/22/99 09/20/10 [address] [place] [address] documented as of this encounter
--- OUTSIDE RECORDS SUMMARY | 2022-05-20 09:09 | XMS_ITS | Encounter Summary ---
:1975 Author Organization [place] Address [address] [place] [address] Care Team Providers Name Role Phone Melvin Palacios MD Primary Care Provider Reason for Referral Referral not Required - Closed Specialty Diagnoses / Procedures Referred By Contact Refer red To Contact Diagnoses Back pain without radiation Aleksandra Jimenez [facility] PA-C [facility] [address] [place] [phone] Fax: Referral ID Status Reason Start Date Expiration Date Visits Requ ested Visits Authorized [id number] Closed 11/23/2007 06/08/2011 1 1 Encounter Details Date Type Department Care Team Description 11/23/2007 Orders Only [facility] Barbara, Back Pain without Clinic [place] PA-C Radiation (Primary Dx) [facility] IC [address] [place] [phone] Social History Tobacco Use Types Packs/Day Years [...] unspecified documented in this encounter Care Teams Quill Reamer Relationship Specialty Start Date End Date Melvin Palacios MD PCP - General 06/22/99 09/20/10 [address] [phone] documented as of this encounter
--- OUTSIDE RECORDS SUMMARY | 2022-05-20 09:09 | XMS_ITS | Encounter Summary ---
:1975 Author Organization [place] Address [address] [place] [address] Care Team Providers Name Role Phone Melvin Palacios MD Primary Care Provider Reason for Visit Reason Comments Imm/Inj Injection. [facility] Encounter Details Date Type Department Care Team Description 07/27/2007 Allied Health/Nurse [facility] Imm /Inj (Injection. Visit [facility] [place] [facility]) [facility], [address] [place] [address] Social History Tobacco Use [...] Headache documented in this encounter Care Teams Sales Team Leader Relationship Specialty Start Date End Date Melvin Palacios MD PCP - General 06/22/99 09/20/10 [address] [address] documented as of this encounter
--- OUTSIDE RECORDS SUMMARY | 2022-05-20 09:09 | XMS_ITS | Encounter Summary ---
:1975 Author Organization [place] Address [address] [facility] [place] [address] Care Team Providers Name Role Phone Melvin Palacios MD Primary Care Provider Reason for Referral - Closed Specialty Diagnoses / Procedures Referred By Contact Refer red To Contact Diagnoses Depressive disorder, not elsewhere classified Anxiety state, unspecified Tobi West PA-C [address] [place], [place] [address] Referral ID Status Reason Start Date Expiration Date Visits Requ ested Visits Authorized [id number] Closed 09/24/2007 06/08/2011 1 1 Reason for Visit Reason Comments Medication Request pt is over stressed with samuel colon problems- would like to discuss med upgrade or additional me d Depression Encounter Details Date Type Department Care Team Description 09/24/2007 Office Visit [facility] Tobi West VE DISORDER NEC; Clinic [place] ZENON [place] ANXIETY STATE NOS; [address] [facility] [address] [facility] [place] [address] [phone] Social History Tobacco Use Types Packs/Day Years [...] PLATELETS, TSH W/FREE T4 REFLEX, CONSULT PSYCHIATRY ([facility]) Increased to Lexapro 30mg daily. F/u in 2-3 weeks for recheck. Potential adverse SE related to medication adjustment are discussed in detail. F/u STAT if any increased anxiety/depression or if any other unusual mood changes occur following medication start. Pt agrees to make apts to f/u with psychiatry and with counselor. 300.00 ANXIETY STATE NOS Plan: CONSULT PSYCHIATRY ([facility]) As per above. 789.06 ABDOMINAL PAIN EPIGASTRIC [...] Analysis Performed At [facility] gist Range Method Time Signature Specimen Whole Blood [facility] Description [facility] Heliobacter No detectable IgG antibody t o Helicobacter pylori. If current infection is BETHEL pylori Antibody suspected, please submit a new specimen in 4 to 6 we eks. [facility] LAB Report status FINAL 09/24/2007 [facility] Specimen Anatomical Collection Method Collection Time Receive d Time (Source) Location / / Volume Laterality 09/24/2007 12:05 09/24/2007 PM CDT 12:08 PM CDT Tobi West PA-C LABORATORY Performing Organization Address City/[facility]/ZIP Code Phon e Number [facility] [address] [place] [address] [facility] TSH W/FREE T4 REFLEX (09/24/2007 12:04 PM CDT) athologist Signature TSH 1.24 0.4 - 5.0 [facility] mU/L [facility] Specimen Anatomical Collection Method Collection Time Receive d Time (Source) Location / / Volume Laterality 09/24/2007 12:04 09/24/2007 PM CDT 12:08 PM CDT Tobi West PA-C LABORATORY Performing Organization Address City/[facility]/ZIP Code Phon e Number [facility] [address] [place] [address] [facility] CBC WITH PLATELETS (09/24/2007 12:04 PM CDT) P athologist Signature WBC 5.8 4.0 - 11.0 [facility] 10e9/L [facility] RBC Count 4.42 3.8 - 5.2 [facility] 10e12/L [facility] Hemoglobin 13.1 11.7 - [facility] 15.7 g/dL [facility] Hematocrit 39.8 35.0 - [place] 47.0 % [facility] MCV 90 78 - 100 [facility] fl [facility] MCH 29.6 26.5 - BET[place] CEDAR 33.0 pg [facility] MCHC 32.9 31.5 - [place] 36.5 g/dL [facility] RDW 12.9 10.0 - [place] 15.0 % [facility] Platelet Count 287 150 - 450 [facility] 10e9/L [facility] Specimen Anatomical Collection Method Collection Time Receive d Time (Source) Location / / Volume Laterality 09/24/2007 12:04 09/24/2007 PM CDT 12:08 PM CDT Tobi West PA-C LABORATORY Performing Organization Address City/State/[facility] Code Phon e Number [facility] [address] [place] [address] [facility] documented in this encounter Visit Diagnoses Diagnosis Depressive disorder, not elsewhere class ified Anxiety state, unspecified Abdominal pain, epigastric documented in this encounter Care Teams Human Factors Specialist Relationship Specialty Start Date End Date Melvin Palacios MD PCP - General 06/22/99 09/20/10 [address] [id number] documented as of this encounter
--- OUTSIDE RECORDS SUMMARY | 2022-05-20 09:09 | XMS_ITS | Encounter Summary ---
:1975 Author Organization [place] Address [address] [place] [address]. [place] [address] Care Team Providers Name Role Phone Melvin Palacios MD Primary Care Provider Encounter Details Date Type Department Care Team Description 11/09/2007 Telephone [facility] Gurmeet Jimenez , [place] Z[place]ON [address] [facility], [facility] [address] [place] [address] [place] [address] (Wo rk) Social History [...] unspecified documented in this encounter Care Teams Log Data Technician Relationship Specialty Start Date End Date Melvin Palacios MD PCP - General 06/22/99 09/20/10 [address] [id number] documented as of this encounter
--- OUTSIDE RECORDS SUMMARY | 2022-05-20 09:09 | XMS_ITS | Encounter Summary ---
:1975 Author Organization [place] Address [address] [place] [address] Care Team Providers Name Role Phone Melvin Palacios MD Primary Care Provider Reason for Visit Reason Comments Consult discuss bladder concerns - b ladder leaking Encounter Details Date Type Department Care Team Description 2007 Office Visit [facility] Harris Jung, Stress Incontinence - Clinic [place] BANERJEE Female (Primary Dx) [address] [address] [facility] 100 131 160 [place], [place] [id number] Social History Tobacco Use Types Packs/Day Years [...] MG OR TABS 1 TABLET AT BEDTIME [id number] EXP 10/14 VITALS: BP 120/74 Pulse 72 [...] incontinence documented in this encounter Care Teams Visual Presentation Manager Relationship Specialty Start Date End Date Melvin Palacios MD PCP - General 06/22/99 09/20/10 [address] [id number] documented as of this encounter
--- OUTSIDE RECORDS SUMMARY | 2022-05-20 09:09 | XMS_ITS | Encounter Summary ---
:1975 Author Organization [place] Address [address] [place] [address] Care Team Providers Name Role Phone Melvin Palacios MD Primary Care Provider Reason for Visit Reason Comments Cough x 4 wks- also would like to have xanax refilled Encounter Details Date Type Department Care Team Description 06/03/2007 Office Visit [facility] Melvin Palacios MD ANXIETY STATE NOS; Clinic [address] ACUTE BRONCHITIS; [address] [place] [address] ACUTE BR[place]CHOSP[place] [facility] [place] [address] [phone] (Wo rk) Social History Tobacco Use Types Packs/Day Years Used Date Smoking Tobacco: Former Alcohol Use Standard Drinks/Week Comments Yes 0 (1 standard drink = 0.6 oz pure alcoho l) social Sex Assigned at Date Recorded Not on file documented as of this encounter Last Filed Vital Signs Vital Sign Reading Time Taken Comments Blood Pressure 102/72 06/03/2007 10:00 AM COMMERCIAL LINES ACCOUNT ASSISTANT Pulse - - Temperature 37 ??C (98.6 ??F) 06/03/2007 10:00 AM COMMERCIAL LINES ACCOUNT ASSISTANT Respiratory Rate - - Oxygen Saturation - - Inhaled Oxygen Concentration - - Weight 78 kg (172 lb) 06/03/2007 10:00 AM COMMERCIAL LINES ACCOUNT ASSISTANT Height 167.6 cm (5' 6) 06/03/2007 10:00 AM COMMERCIAL LINES ACCOUNT ASSISTANT Body Mass Index 27.76 06/03/2007 10:00 AM COMMERCIAL LINES ACCOUNT ASSISTANT documented in this encounter Progress Notes Melvin [...] worsen or fail to improve as anticipated. ERCIAL LINES ACCOUNT ASSISTANT documented in this encounter Nursing Notes 06/03/2007 [...] bronchospasm documented in this encounter Care Teams Construction Stonemason Relationship Specialty Start Date End Date Melvin Palacios MD PCP - General 06/22/99 09/20/10 [address] [id number] documented as of this encounter
--- OUTSIDE RECORDS SUMMARY | 2022-05-20 09:09 | XMS_ITS | Encounter Summary ---
:1975 Author Organization [place] Address [address] [place] [address] Care Team Providers Name Role Phone Melvin Palacios MD Primary Care Provider Reason for Visit Reason Onset Date Comments Referral 01/01/2008 pt requesting her re ferral faxed to her Encounter Details Date Type Department Care Team Description 01/01/2008 Telephone [facility] Melvin Palacios MD Referral (pt requesting [facility] [place] [address] [place] [place] her referral faxed to [address] [place] [address]) [place] [address] [phone] (Wo rk) Social History Tobacco Use Types [...] her referral for faxed to her at [phone]--referral faxed Felicia Mcintyre/GUY documented in this encounter Plan of Treatment Not on filedocumented as of this encounter Visit Diagnoses Not on filedocumented in this encounter Care Teams Memorial Mason Relationship Specialty Start Date End Date Melvin Palacios MD PCP - General 06/22/99 09/20/10 [address] [address] documented as of this encounter
--- OUTSIDE RECORDS SUMMARY | 2022-05-20 09:09 | XMS_ITS | Encounter Summary ---
:1975 Author Organization [place] Address [address] [place] [address] Care Team Providers Name Role Phone Melvin Palacios MD Primary Care Provider Encounter Details Date Type Department Care Team Description 07/27/2007 Orders Only [facility] Barbara, MIGRAINE N OS W/O MENTN [facility] [place] INTRACTABLE (Primary [facility] IC Dx) [address] [place] [address] SONJA YEH [phone] Social History Tobacco Use Types Packs/Day Years Used Date Smoking Tobacco: Former Alcohol Use Standard Drinks/Week Comments Yes 0 (1 standard drink = 0.6 oz pure alcoho l) social Sex Assigned at Date Recorded Not on file documented as of this encounter Progress Notes Aleksandra Jimenez - 07/27/2007 11:32 AM CST Dariana with migraine started this morning. Will give imitrex shot now O STATION MANAGER documented in this encounter Plan of Treatment Not on filedocumented as of this encounter Visit Diagnoses Diagnosis Migraine, unspecified, without mention o f intractable migraine without mention of status migrainosus - Primary documented in this encounter Care Teams Or Scrub Tech Relationship Specialty Start Date End Date Melvin Palacios MD PCP - General 06/22/99 09/20/10 [address] [id number] documented as of this encounter
--- OUTSIDE RECORDS SUMMARY | 2022-05-20 09:09 | XMS_ITS | Encounter Summary ---
:1975 Author Organization [place] Address [address] [place] [address] Care Team Providers Name Role Phone Melvin Palacios MD Primary Care Provider Reason for Visit Reason Comments Derm Problem Encounter Details Date Type Department Care Team Description 01/19/2008 Office Visit [facility] Thomas Jimenezister of Foot without Clinic [place] PA-C Infection (Primary Dx) [facility] IC [address] [place], [place] [phone] Social History Tobacco Use Types Packs/Day [...] OR TABS Oral 1 TABLET AT BEDTIME [id number] EXP 10/14 10 0 Allergies Allergen Reactions [...] infection documented in this encounter Care Teams Malt House Supervisor Relationship Specialty Start Date End Date Melvin Palacios MD PCP - General 06/22/99 09/20/10 [address] [id number] documented as of this encounter
--- OUTSIDE RECORDS SUMMARY | 2022-05-20 09:09 | XMS_ITS | Encounter Summary ---
:1975 Author Organization [place] Address [address] [place] [address]. [place] [address] Care Team Providers Name Role Phone Melvin Palacios MD Primary Care Provider Encounter Details Date Type Department Care Team Description 01/18/2008 Office Visit [facility] Ye Jimenez of Foot without Clinic [place] PA-C Infection (Primary Dx) [facility] [address] [place], [place] [address] Social History Tobacco Use Types [...] OR TABS Oral 1 TABLET AT BEDTIME [id number] EXP 10/14 10 0 Allergies Allergen Reactions [...] infection documented in this encounter Care Teams Warp Starter Relationship Specialty Start Date End Date Melvin Palacios MD PCP - General 06/22/99 09/20/10 [address] [id number] documented as of this encounter
--- OUTSIDE RECORDS SUMMARY | 2022-05-20 09:09 | XMS_ITS | Encounter Summary ---
:1975 Author Organization [place] Address [address] [place] [address]. [place] [address] Care Team Providers Name Role Phone Melvin Palacios MD Primary Care Provider Reason for Visit Reason Onset Date Comments Refill Request 10/08/2007 Encounter Details Date Type Department Care Team Description 10/08/2007 Refill [facility] Tobi West, Refill Request [address] [phone] [place] [address] (Wo rk) Social History Tobacco [...] disorder documented in this encounter Care Teams Rehab Tech Relationship Specialty Start Date End Date Melvin Palacios MD PCP - General 06/22/99 09/20/10 [address] [id number] documented as of this encounter
--- OUTSIDE RECORDS SUMMARY | 2022-05-20 09:10 | XMS_ITS | Encounter Summary ---
:1975 Author Organization [place] Address [address] [place] [address] Care Team Providers Name Role Phone Melvin Palacios MD Primary Care Provider Encounter Details Date Type Department Care Team Description 08/16/2005 Historic Results INTERFACED REPORT Pau Moreno [address] [place] [address] Social History Tobacco Use Types Packs/Day Years [...] STAT 08/16/2005 8:15 PM Results for this BUSINESS OFFICE ASSOCIATE procedure are i n the results section. ROUTINE UA WITH STAT 08/16/2005 8:15 PM Result s for this MICROSCOPIC BUSINESS OFFICE ASSOCIATE procedure are i n the results section. documented in this encounter Results (ABNORMAL) Routine UA with microscopic (08/16/2005 8:15 PM BUSINESS OFFICE ASSOCIATE) [facility] Method Time Signature Source Midstream MISYS Urine Color Urine Yellow MISYS Appearance Urine Clear MISYS Glucose Urine Negative NEG mg/dL MISYS Bilirubin Urine Negative NEG MISYS Ketones Urine 5 (A) NEG mg/dL MISYS Specific [place] 1.019 1.003 - MISYS Urine 1.035 Blood [...] Volume Laterality 08/16/2005 8:15 PM 6 8:19 BUSINESS OFFICE ASSOCIATE PM BUSINESS OFFICE ASSOCIATE Giovani Robertsench LAB - URINE ORDERABLES Performing Organization Address City/[facility]/ZIP Code Phon e Number MISYS HCG qualitative urine (08/16/2005 8:15 PM BUSINESS OFFICE ASSOCIATE) P athologist Signature HCG Qual Urine Negative NEG MISYS Specimen Anatomical Collection Method Collection Time Receive d Time (Source) Location / / Volume Laterality 08/16/2005 8:15 PM 6 8:19 BUSINESS OFFICE ASSOCIATE PM BUSINESS OFFICE ASSOCIATE Giovani Moreno LAB - URINE ORDERABLES Performing Organization Address City/[facility] Phon e Number MISYS documented in this encounter Visit Diagnoses Not on filedocumented in this encounter Care Teams Literacy Teacher Relationship Specialty Start Date End Date Melvin Palacios MD PCP - General 06/22/99 09/20/10 [address] [id number] documented as of this encounter
--- OUTSIDE RECORDS SUMMARY | 2022-05-20 09:10 | XMS_ITS | Encounter Summary ---
:1975 Author Organization [place] Address [address] [place] [address] Care Team Providers Name Role Phone Melvin Palacios MD Primary Care Provider Encounter Details Date Type Department Care Team Description 04/01/2007 Abstract [facility] Abstract, Provider Asha falcon Field Marketing Associate Labs [facility] [address] [place] [address] Social History Tobacco Use Types Packs/Day Years [...] Abstract LAB - HIM EXTERNAL RESULT TSH [14809.001] (04/01/2007) P athologist Signature TSH 2.56@ mcU/mL MISYS Provider Abstract LABORATORY Performing Organization Address [place]/[facility]/ZIP [facility] Phon e Number MISYS GLUCOSE [[id number]] (04/01/2007) P athologist Signature Glucose 77@ mg/dL MISYS Provider Abstract LABORATORY Performing Organization Address [place]/[facility] Phon e Number MISYS TRIGLYCERIDES [18840.000] (04/01/2007) P athologist Signature Triglycerides 113@ mg/dL MISYS Provider Abstract LABORATORY Performing Organization Address [place]/[facility] Phon e Number MISYS HDL CHOLESTEROL [02073.000] (04/01/2007) P athologist Signature HDL Cholesterol 46@ mg/dL MISYS Provider Abstract LABORATORY Performing Organization Address [place]/[facility] Phon e Number MISYS LDL-CHOLESTEROL [03961.001] (04/01/2007) P athologist Signature LDL Cholesterol 66@ mg/dL MISYS Calculated Provider Abstract LABORATORY Performing Organization Address [place]/[facility] Phon e Number MISYS CHOLESTEROL [[id number]] (04/01/2007) P athologist Signature Cholesterol 135@ 115 - 199 MISYS mg/dL Provider Abstract LABORATORY Performing Organization Address [place]/[facility] Phon e Number MISYS documented in this encounter Visit Diagnoses Diagnosis DIAGNOSIS NOT YET DEFINED - Primary documented in this encounter Care Teams Drying Supervisor Relationship Specialty Start Date End Date Melvin Palacios MD PCP - General 06/22/99 09/20/10 [address] [id number] documented as of this encounter
--- OUTSIDE RECORDS SUMMARY | 2022-05-20 09:10 | XMS_ITS | Encounter Summary ---
:1975 Author Organization [place] Address [address] [place] [address] Care Team Providers Name Role Phone Melvin Palacios MD Primary Care Provider Reason for Visit Reason Comments Recheck Medication prescription needed Encounter Details Date Type Department Care Team Description 08/01/[address] [facility] Melvin Palacios MD DEPRESSIVE DISORDER NEC; Clinic [place] [address] [place] [address] GENERALIZED ANXIETY DIS; [address] [place] [address] OTHER GENERAL SYMPTOMS [place], [place] [id number] Social History Tobacco Use Types Packs/Day Years Used Date Smoking Tobacco: Former Alcohol Use Standard Drinks/Week Comments Yes 0 (1 standard drink = 0.6 oz pure alcoho l) social Sex Assigned at Date Recorded Not on file documented as of this encounter Last Filed Vital Signs Vital Sign Reading Time Taken Comments Blood Pressure 106/62 08/01/2006 9:30 AM PIPE LINE GAUGER Pulse - - Temperature - - Respiratory Rate - - Oxygen Saturation - - Inhaled Oxygen Concentration - - Weight 76.7 kg (169 lb) 08/01/2006 9:30 AM PIPE LINE GAUGER Height 167.6 cm (5' 6) 08/01/2006 9:30 AM PIPE LINE GAUGER Body Mass Index 27.28 08/01/2006 9:30 AM PIPE LINE GAUGER documented in this encounter Progress Notes Melvin [...] 2- Cold intolerance. Labs per HS orders. LINE GAUGER documented in this encounter Nursing Notes 08/01/2006 [...] OTHER GENERAL Resu lts for this PLATELETS PIPE LINE GAUGER SYMPTOMS procedure are i n the results section. HCL TSH W/FREE T4 Routine 08/01/2006 10:10 AM OTHER GENERAL Re sults for this REFLEX PIPE LINE GAUGER SYMPTOMS procedure are i n the results section. documented in this encounter Results CBC WITH PLATELETS (08/01/2006 10:10 AM PIPE LINE GAUGER) athologist Signature WBC 6.0 4.0 - 11.0 [place] 10e9/L [facility] RBC Count 4.47 3.8 - 5.2 [place] 10e12/L [facility] Hemoglobin 13.5 11.7 - [place] 15.7 g/dL [facility] Hematocrit 39.5 35.0 - [place] 47.0 % [facility] MCV 88 78 - 100 [place] fl [facility] MCH 30.2 26.5 - [place] 33.0 pg [facility] MCHC 34.2 32.0 - [place] 36.0 g/dL [facility] RDW 13.2 10.0 - [place] 15.0 % [facility] Platelet Count 236 150 - 450 [facility] 10e9/L [facility] Specimen Anatomical Collection Method Collection Time Receive d Time (Source) Location / / Volume Laterality 08/01/2006 10:10 08/01/2006 AM PIPE LINE GAUGER 10:15 AM PIPE LINE GAUGER Melvin Palacios MD LABORATORY Performing Organization Address City/State/ZIP Code Phon e Number [facility] [address] [place] [address] [facility] TSH W/FREE T4 REFLEX (08/01/2006 10:10 AM PIPE LINE GAUGER) P athologist Signature TSH 1.50 0.4 - 5.0 [facility] mU/L [facility] Specimen Anatomical Collection Method Collection Time Receive d Time (Source) Location / / Volume Laterality 08/01/2006 10:10 08/01/2006 AM PIPE LINE GAUGER 10:15 AM PIPE LINE GAUGER Melvin Palacios MD LABORATORY Performing Organization Address City/State/ZIP Code Phon e Number [facility] [address] [place] [address] [facility] documented in this encounter Visit Diagnoses Diagnosis Depressive disorder, not elsewhere class ified Generalized anxiety disorder Other general symptoms(780.99) Other general symptoms documented in this encounter Care Teams Warning Analyst Relationship Specialty Start Date End Date Melvin Palacios MD PCP - General 06/22/99 09/20/10 [address] [id number] documented as of this encounter
--- OUTSIDE RECORDS SUMMARY | 2022-05-20 09:10 | XMS_ITS | Encounter Summary ---
:1975 Author Organization [place] Address [address] [facility] [place] [address] Care Team Providers Name Role Phone Melvin Palacios MD Primary Care Provider Encounter Details Date Type Department Care Team Description 08/21/2006 Emergency room Devonte Zacarias MD [place] [address] Social History Tobacco Use Types Packs/Day Years Used Date Smoking Tobacco: Former Alcohol Use Standard Drinks/Week Comments Yes 0 (1 standard drink = 0.6 oz pure alcoho l) social Sex Assigned at Date Recorded Not on file documented as of this encounter Progress Notes Interface, Assembly Machine Set Up Mechanic - 08/28/2006 7:31 AM CDT FINAL CHIEF [...] MD MT: [id number] Name: DARIANA VALDEZ Account: [id number] : 1975 Visit Date: 08/21/2006 Document: [id number] cc: [facility] documented in this encounter Plan of Treatment Not on filedocumented as of this encounter Visit Diagnoses Not on filedocumented in this encounter Care Teams Geoscience Technician Relationship Specialty Start Date End Date Melvin Palacios MD PCP - General 06/22/99 09/20/10 [address] [id number] documented as of this encounter
--- OUTSIDE RECORDS SUMMARY | 2022-05-20 09:10 | XMS_ITS | Encounter Summary ---
:1975 Author Organization [place] Address [address] [place] [address] Care Team Providers Name Role Phone Melvin Palacios MD Primary Care Provider Reason for Visit Reason Onset Date Comments Refill Request 06/13/2005 effexor xr Encounter Details Date Type Department Care Team Description 06/13/[address] [facility] [place] efill Request (effexor [place] ZENON Maddox xr) [address] [place] [phone] [phone] (Wo rk) Social History Tobacco Use Types [...] Refill:05-10-05 refill ok'd PSO. Maricarmen Geller RN ER MACHINE OPERATOR documented in this encounter Plan of Treatment Not on filedocumented as of this encounter Visit Diagnoses Diagnosis Depressive disorder, not elsewhere class ified documented in this encounter Care Teams Nurse Ldr Relationship Specialty Start Date End Date Melvin Palacios MD PCP - General 06/22/99 09/20/10 [address] [id number] documented as of this encounter
--- OUTSIDE RECORDS SUMMARY | 2022-05-20 09:10 | XMS_ITS | Encounter Summary ---
:1975 Author Organization [place] Address [address] [place] [address] Care Team Providers Name Role Phone Melvin Palacios MD Primary Care Provider Encounter Details Date Type Department Care Team Description 08/21/2006 Historic Results INTERFACED REPORT Paul Zacarias [place] [address] Social History Tobacco Use Types Packs/Day Years [...] LAB - BLOOD ORDERABLES Performing Organization Address City/State/[facility] Phon e Number MISYS (ABNORMAL) Routine UA with microscopic (08/21/2006 9:58 PM CDT) Component Value Ref Test Analysis Performed At [facility] Range Method Time Signature Source Unspecified MISYS Urine Color Urine Straw MISYS Appearance Urine Clear MISYS Glucose Urine Negative NEG MISYS mg/dL Bilirubin Urine Negative NEG MISYS Ketones Urine Negative NEG MISYS mg/dL Specific [place] 1.001 (L) 1.003 - MISYS Urine 1.035 [...] LAB - URINE ORDERABLES Performing Organization Address City/[facility] Phon e Number MISYS documented in this encounter Visit Diagnoses Not on filedocumented in this encounter Care Teams Diamond Cutter Relationship Specialty Start Date End Date Melvin Palacios MD PCP - General 06/22/99 09/20/10 [address] [id number] documented as of this encounter
--- OUTSIDE RECORDS SUMMARY | 2022-05-20 09:10 | XMS_ITS | Encounter Summary ---
:1975 Author Organization [place] Address [address] [facility] [place] [address] Care Team Providers Name Role Phone Melvin Palacios MD Primary Care Provider Reason for Visit Reason Onset Date Comments Patient Request 02/20/2005 Wants to switch from Wellbutrin to Effexor Slk Encounter Details Date Type Department Care Team Description 02/20/2005 Telephone [facility] [place] Patient Request (Wants [facility] [place] ZENON Maddox to switch from [address] [place] [address] Wellbutrin to Effexor [place], [place] Slk) [phone] [phone] Social History Tobacco Use Types Packs/Day Years [...] Please call her on her cell # [phone]. Or work number [phone].Tobi Westis on vac. so I will send this to Dr. Mcguire.Esmer Cavanaugh RN. documented in this encounter Plan of Treatment Not on filedocumented as of this encounter Visit Diagnoses Diagnosis Depressive disorder, not elsewhere class ified - Primary documented in this encounter Care Teams Meterman Relationship Specialty Start Date End Date Melvin Palacios MD PCP - General 06/22/99 09/20/10 [address] [id number] documented as of this encounter
--- OUTSIDE RECORDS SUMMARY | 2022-05-20 09:10 | XMS_ITS | Encounter Summary ---
:1975 Author Organization [place] Address [address] [place] [address] Care Team Providers Name Role Phone Melvin Palacios MD Primary Care Provider Reason for Visit Reason Onset Date Comments Refill Request 01/18/2005 Wellbutrin Encounter Details Date Type Department Care Team Description 01/18/2005 Refill [facility] [place] Request [place] ZENON Maddox (Wellbutrin) [address] [place] [phone] (Wo rk) Social History Tobacco Use Types [...] ified documented in this encounter Care Teams Escrow Agent Relationship Specialty Start Date End Date Melvin Palacios MD PCP - General 06/22/99 09/20/10 [address] [address] documented as of this encounter
--- OUTSIDE RECORDS SUMMARY | 2022-05-20 09:10 | XMS_ITS | Encounter Summary ---
:1975 Author Organization [place] Address [address] [place] [address] Care Team Providers Name Role Phone Melvin Palacios MD Primary Care Provider Encounter Details Date Type Department Care Team Description 02/18/2006 Historic Results [facility] Jana Palacios MD [place] [address] [place] [address] (W ork) [address] [phone] Social History Tobacco Use Types Packs/Day Years [...] Component Value Ref Test Analysis Performed At [facility] Range Method Time Signature Specimen Cervical MISYS Description Chlamydia Negative for C. MISYS Trachomatis PCR trachomatis rRNA by coat repair inspector mediated amplification. Comment: A negative result by coat repair inspector medi ated amplification does not preclude the [...] Neisseria gonorrhoeae PCR (02/18/2006 7:00 PM CDT) [facility] Method Time Signature Specimen Cervical MISYS Descrip N Gonorrhea Negative for N. MISYS PCR gonorrhoeae rRNA by coat repair inspector mediated amplification. Comment: A negative result by coat repair inspector medi ated amplification does not preclude the [...] MISYS Wet prep (02/18/2006 7:00 PM CDT) [facility] Method Time Signature Specimen Vagina MISYS Description Micro Report FINAL MISYS Status [id number] Wet Prep Many PMNs MISYS seen Comment: [...] differential and platelet (02/18/2006 6:45 PM CDT) [facility] gist Method Time Signature MCV 90 [...] LAB - BLOOD ORDERABLES Performing Organization Address City/[facility] Code Phon e Number MISYS HCG qualitative (02/18/2006 6:45 PM CDT) [facility] Method Time Signature HCG Qualitative Negative NEG MISYS Serum Specimen Anatomical Collection Method Collection Time Receive d Time (Source) Location / / Volume Laterality 02/18/2006 6:45 PM 6 6:36 CDT PM CDT Harris James MD LAB - BLOOD ORDERABLES Performing Organization Address City/State/ZIP Code Phon e Number MISYS (ABNORMAL) Routine UA with microscopic (02/18/2006 6:13 PM CDT) [facility] [place] Method Time Signature Source Midstream MISYS Urine Color Urine Yellow MISYS Appearance Urine Clear MISYS Glucose Urine Negative NEG mg/dL MISYS Bilirubin Urine Negative NEG MISYS Ketones Urine Negative NEG mg/dL MISYS Specific [place] 1.018 1.003 - MISYS Urine 1.035 Blood [...] LAB - URINE ORDERABLES Performing Organization Address City/[facility]/ZIP Code Phon e Number MISYS HCG qualitative urine (02/18/2006 6:13 PM CDT) P athologist Signature HCG Qual Urine Negative NEG MISYS Specimen Anatomical Collection Method Collection Time Receive d Time (Source) Location / / Volume Laterality 02/18/2006 6:13 PM 6 6:13 CDT PM CDT Harris James MD LAB - URINE ORDERABLES Performing Organization Address City/[facility]/ZIP Code Phon e Number MISYS documented in this encounter Visit Diagnoses Not on filedocumented in this encounter Care Teams Reel Hooker Relationship Specialty Start Date End Date Melvin Palacios MD PCP - General 06/22/99 09/20/10 [address] [address] documented as of this encounter
--- OUTSIDE RECORDS SUMMARY | 2022-05-20 09:10 | XMS_ITS | Encounter Summary ---
:1975 Author Organization [place] Address [address] [place] [address] Care Team Providers Name Role Phone Melvin Palacios MD Primary Care Provider Reason for Visit Reason Onset Date Comments Medication Request 04/24/2006 Lexapro samples Encounter Details Date Type Department Care Team Description 04/24/2006 Telephone [facility] Melvin Palacios MD Medication Request [facility] [place] [address] (Lexapro samples) [address] [place] [phone] (Wo rk) Social History Tobacco Use Types Packs/Day Years Used Date Smoking Tobacco: Former Alcohol Use Standard Drinks/Week Comments Yes 0 (1 standard drink = 0.6 oz pure alcoho l) social Sex Assigned at Date Recorded Not on file documented as of this encounter Miscellaneous Notes Telephone Encounter - Melvin Palacios - 04/24/2006 3:43 PM CST Give lotsa samples ENERGY CONSULTANT Telephone Encounter - Stefanie Palumbo - 04/24/2006 2:57 PM HOME ENERGY CONSULTANT Staff Message copied by STEFANIE PALUMBO on 04/24/2006 at 2:57 PM ------ Message from: LE TYSON Created: 04/24/2006 at 2:13 PM Regarding: cl Dariana would like more samples of lexapro sh is all out. Pt does have appt w/ Dr Palacios on 04-28 Pls call [phone] thanks ENERGY CONSULTANT documented in this encounter Plan of Treatment Not on filedocumented as of this encounter Visit Diagnoses Not on filedocumented in this encounter Care Teams Hard Candy Spinner Relationship Specialty Start Date End Date Melvin Palacios MD PCP - General 06/22/99 09/20/10 [address] [id number] documented as of this encounter
--- OUTSIDE RECORDS SUMMARY | 2022-05-20 09:10 | XMS_ITS | Encounter Summary ---
:1975 Author Organization [place] Address [address] [place] [address] Care Team Providers Name Role Phone Melvin Palacios MD Primary Care Provider Encounter Details Date Type Department Care Team Description 02/18/2006 Results Only [facility] Harris James MD Hospital Results EMERGENCY PH[facility]SI [facility] [address] [place], [place] [address] (Wo rk) Social History [...] on filedocumented in this encounter Care Teams Consumer Services Consultant Relationship Specialty Start Date End Date Melvin Palacios MD PCP - General 06/22/99 09/20/10 [address] [id number] documented as of this encounter
--- OUTSIDE RECORDS SUMMARY | 2022-05-20 09:10 | XMS_ITS | Encounter Summary ---
:1975 Author Organization [place] Address [address] [place] [address] Care Team Providers Name Role Phone Melvin Palacios MD Primary Care Provider Reason for Visit Reason Onset Date Comments Refill Request 11/12/2005 lexapro samples, not due to come in for follow up for 2 months Encounter Details Date Type Department Care Team Description 11/12/2005 Refill [facility] Melvin Palacios MD Refill Request (lexapro Clinic [place] [address] samples, not due to come [address] [place] [address] in for follow up for 2 [place] [address] months) [phone] Social History Tobacco Use Types Packs/Day Years [...] 8 weeks of samples left for 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 Karol Avalos LPN documented in this encounter Plan of Treatment Not on filedocumented as of this encounter Visit Diagnoses Diagnosis Adjustment disorder with depressed mood Generalized anxiety disorder Depressive disorder, not elsewhere class ified documented in this encounter Care Teams Supervisor Wet End Relationship Specialty Start Date End Date Melvin Palacios MD PCP - General 06/22/99 09/20/10 [address] [address] documented as of this encounter
--- OUTSIDE RECORDS SUMMARY | 2022-05-20 09:10 | XMS_ITS | Encounter Summary ---
:1975 Author Organization [place] Address [address] [place] [address] Care Team Providers Name Role Phone Melvin Palacios MD Primary Care Provider Reason for Visit Reason Comments Consult biten by becky [facility] a.[facility] on right hand and elbow Encounter Details Date Type Department Care Team Description 03/07/2006 Office Visit [facility] Melvin Palacios MD ENDOMETRIOSIS NOS (Primary Dx); Clinic [place] [address] ANIMAL BITE NEC [address] [place], [place] SONJA KRUEGER [address] [phone] Social History Tobacco Use Types Packs/Day Years [...] by 13 week old (nonwild) ferret at [facility] one hour ago. Td is [...] - biten by ferret this a.m. at [facility] on right hand and elbow Initial BP [...] arthropod documented in this encounter Care Teams Reservations Sales Supervisor Relationship Specialty Start Date End Date Melvin Palacios MD PCP - General 06/22/99 09/20/10 [address] [address] documented as of this encounter
--- OUTSIDE RECORDS SUMMARY | 2022-05-20 09:10 | XMS_ITS | Encounter Summary ---
:1975 Author Organization [place] Address [address] [place] [address]. [place] [address] Care Team Providers Name Role Phone Melvin Palacios MD Primary Care Provider Encounter Details Date Type Department Care Team Description 08/16/2005 Orders Only [facility] NOT YET Clinic [place] ZENON Maddox DEFINED (Primary Dx) [address] [facility] [address] [place] [address] [phone] Social History Tobacco Use Types Packs/Day Years [...] Primary documented in this encounter Care Teams Table Games Floor Supervisor Relationship Specialty Start Date End Date Melvin Palacios MD PCP - General 06/22/99 09/20/10 [address] [address] documented as of this encounter
--- OUTSIDE RECORDS SUMMARY | 2022-05-20 09:10 | XMS_ITS | Encounter Summary ---
:1975 Author Organization [place] Address [address] [place] [address] Care Team Providers Name Role Phone Melvin Palacios MD Primary Care Provider Reason for Visit Reason Comments RECHECK pt has questions about incre asing her meds dosage Encounter Details Date Type Department Care Team Description 01/15/2006 Office Visit [facility] Melvin Palacios MD ADJUSTMENT DISORDER WITH DEPRESSED MOOD; Clinic [address] GENERALIZED ANXIETY DIS; [address] [place] [address] DEPRESSIVE DISORDER [place], [place] SONJA KRUEGER [address] [phone] Social History Tobacco Use Types Packs/Day Years [...] ified documented in this encounter Care Teams Aoc Operations Intelligence Officer Relationship Specialty Start Date End Date Melvin Palacios MD PCP - General 06/22/99 09/20/10 [address] [address] documented as of this encounter
--- OUTSIDE RECORDS SUMMARY | 2022-05-20 09:10 | XMS_ITS | Encounter Summary ---
:1975 Author Organization [place] Address [address] [place] [address] Care Team Providers Name Role Phone Melvin Palacios MD Primary Care Provider Reason for Visit Reason Comments RECHECK follow-up on effexpaty - nandini jones for the anxiety, fatigue during the day - very low engery, HAYES - discuss if side effects could be due to stress Encounter Details Date Type Department Care Team Description 05/28/2005 Office Visit [facility] [place] VE DISORDER NEC; Clinic [place] ZENON Maddox HEADACHE [address] [place] [phone] Social History Tobacco Use Types Packs/Day Years Used Date Smoking Tobacco: Every Day Comments: socially Alcohol Use Standard Drinks/Week Comments Yes 0 (1 standard drink = 0.6 oz pure alcoho l) social Sex Assigned at Date Recorded Not on file documented as of this encounter Last Filed Vital Signs Vital Sign Reading Time Taken Comments Blood Pressure 104/72 05/28/2005 10:30 AM GOLF SHOE SPIKE ASSEMBLER Pulse - - Temperature - - Respiratory Rate - - Oxygen Saturation - - Inhaled Oxygen Concentration - - Weight 71.7 kg (158 lb) 05/28/2005 10:30 AM GOLF SHOE SPIKE ASSEMBLER Height 170.2 cm (5' 7) 05/28/2005 10:30 AM GOLF SHOE SPIKE ASSEMBLER Body Mass Index 24.75 05/28/2005 10:30 AM GOLF SHOE SPIKE ASSEMBLER documented in this encounter Progress Notes Tobi [...] light touch good and equal bilaterally. Normal [id number] testing. Normal Rhomberg and pronator drift testing. [...] given. F/u in 1 month for recheck. SHOE SPIKE ASSEMBLER documented in this encounter Nursing Notes 05/28/2005 [...] completed using cuff size regular. Kelli Antonio, Yarder Operator documented in this encounter Plan of Treatment Not on filedocumented as of this encounter Visit Diagnoses Diagnosis Depressive disorder, not elsewhere class ified Headache(784.0) Headache documented in this encounter Care Teams Emergency Medicine Physician Relationship Specialty Start Date End Date Melvin Palacios MD PCP - General 06/22/99 09/20/10 [address] [phone] documented as of this encounter
--- OUTSIDE RECORDS SUMMARY | 2022-05-20 09:10 | XMS_ITS | Encounter Summary ---
:1975 Author Organization [place] Address [address] [place] [address] Care Team Providers Name Role Phone Melvin Palacios MD Primary Care Provider Encounter Details Date Type Department Care Team Description 08/21/2006 Results Only [facility] Will Zacarias, Hospital Results [place] [address] Social History Tobacco Use Types Packs/Day Years Used Date Smoking Tobacco: Former Alcohol Use Standard Drinks/Week Comments Yes 0 (1 standard drink = 0.6 oz pure alcoho l) social Sex Assigned at Date Recorded Not on file documented as of this encounter Plan of Treatment Not on filedocumented as of this encounter Procedures Procedure Name Priority Date/Time Associated Diagnosis Comme [facility] CT ABDOMEN W/O Routine 08/21/2006 11:08 [...] report relayed to referring physician by radiologist emerging solutions executive. Will Zacarias MD SPECIAL IMAGING STUDIES documented in this encounter Visit Diagnoses Not on filedocumented in this encounter Care Teams Program Control Analyst Relationship Specialty Start Date End Date Melvin Palacios MD PCP - General 06/22/99 09/20/10 [address] [phone] documented as of this encounter
--- OUTSIDE RECORDS SUMMARY | 2022-05-20 09:10 | XMS_ITS | Encounter Summary ---
:1975 Author Organization [place] Address [address] [place] [address] Care Team Providers Name Role Phone Melvin Palacios MD Primary Care Provider Reason for Visit Reason Comments Medication Request Encounter Details Date Type Department Care Team Description 03/07/2005 Office Visit [facility] [place] VE DISORDER Clinic [place] ZENON Maddox NEC (Primary Dx) [address] [address] [phone] Social History Tobacco Use Types Packs/Day Years [...] completed using cuff size: regular Karol Avalos CLINICAL TEAM LEAD documented in this encounter Plan of Treatment Not on filedocumented as of this encounter Visit Diagnoses Diagnosis Depressive disorder, not elsewhere class ified - Primary documented in this encounter Care Teams Director Of Science Relationship Specialty Start Date End Date Melvin Palacios MD PCP - General 06/22/99 09/20/10 [address] [address] documented as of this encounter
--- OUTSIDE RECORDS SUMMARY | 2022-05-20 09:10 | XMS_ITS | Encounter Summary ---
:1975 Author Organization [place] Address [address] [place] [address] Care Team Providers Name Role Phone Melvin Palacios MD Primary Care Provider Reason for Visit Reason Onset Date Comments Refill Request 12/11/2006 lunesta and lexapro samples Encounter Details Date Type Department Care Team Description 12/11/2006 Refill [facility] [place] efill Request (lunesta [place] ZENON Maddox and lexapro samples) [address] [place] [address] [phone] (Wo rk) Social History Tobacco Use Types [...] disorder documented in this encounter Care Teams Data Entry Analyst Relationship Specialty Start Date End Date Melvin Palacios MD PCP - General 06/22/99 09/20/10 [address] [address] documented as of this encounter
--- OUTSIDE RECORDS SUMMARY | 2022-05-20 09:10 | XMS_ITS | Encounter Summary ---
:1975 Author Organization [place] Address [address] [facility] 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 Nonsmoker, occasional alcohol. She had a vaginal [...] 1-2 p.o. q.4-6h. p.r.n. pain. Follow with MICROSOFT SYSTEMS ENGINEER for reevaluation in the next 7 days. Return for fever, new symptoms orworse symptoms. If it is a stone, will also her strain all urine, keep stone and take to her PMD. Electronically signed on 03/16/2006 16:22 by HARRIS MCMAHAN MD MT: [id number] Name: DARIANA VALDEZ MRN: [id number] Account: [id number] : 1975 Visit Date: 02/18/2006 Document: [id number] cc: [facility] documented in this encounter Plan of Treatment Not on filedocumented as of this encounter Visit Diagnoses Not on filedocumented in this encounter Care Teams Java Technical Architect Relationship Specialty Start Date End Date Melvin Palacios MD PCP - General 06/22/99 09/20/10 [address] [phone] documented as of this encounter
--- OUTSIDE RECORDS SUMMARY | 2022-05-20 09:10 | XMS_ITS | Encounter Summary ---
:1975 Author Organization [place] Address [address] [place] [address]. [place] [address] Care Team Providers Name Role Phone Melvin Palacios MD Primary Care Provider Reason for Visit Reason Comments Depression Encounter Details Date Type Department Care Team Description 10/18/2005 Office Visit [facility] Melvin Palacios MD DEPRESSIVE DISORDER NEC; Clinic [place] [address] [place] [address] GENERALIZED ANXIETY DIS; [address] [facility] ADJUSTMENT DISORDER WITH DEPRESSED MOOD [place], [place] [address] [phone] Social History Tobacco Use Types Packs/Day Years [...] mood documented in this encounter Care Teams Agricultural Labor Camp Manager Relationship Specialty Start Date End Date Melvin Palacios MD PCP - General 06/22/99 09/20/10 [address] [address] documented as of this encounter
--- OUTSIDE RECORDS SUMMARY | 2022-05-20 09:10 | XMS_ITS | Encounter Summary ---
:1975 Author Organization [place] Address [address] [place] [address] Care Team Providers Name Role Phone Melvin Palacios MD Primary Care Provider Reason for Referral Referral not Required - Closed Specialty Diagnoses / Procedures Referred By Contact Refer red To Contact Diagnoses Anxiety state, unspecified Backache, unspecified Melvin Palacios MD PAIN MANAGEMENT & [address] [place] [address] [facility] [address] SONJA SWIFT [phone] Phone: Referral ID Status Reason Start Date Expiration Date Visits Requ ested Visits Authorized [id number] Closed 03/18/2007 06/08/2011 1 1 Reason for Visit Reason Comments Anxiety usually in pm- pt feels lik e she's having anxiety attacks- also some back pain Encounter Details Date Type Department Care Team Description 03/18/2007 Office Visit [facility] Melvin Palacios MD ANXIETY STATE NOS (Primary Dx); Clinic [place] [address] BACKACHE NOS [address] [place], [place] [place] [address] [phone] Social History Tobacco Use Types Packs/Day Years [...] mg starter pack given #42, lot # [id number] exp 11/15 42 0 ??? LUNESTA 3 MG OR TABS Oral 1 TABLET AT BEDTIME [id number] EXP 10/14 10 0 ROS: C: NEGATIVE [...] unspecified documented in this encounter Care Teams Sweatband Perforator Relationship Specialty Start Date End Date Melvin Palacios MD PCP - General 06/22/99 09/20/10 [address] [address] documented as of this encounter
--- OUTSIDE RECORDS SUMMARY | 2022-05-20 09:11 | XMS_ITS | Encounter Summary ---
:1975 Author Organization [place] Address [address] [place] [address]. [place] [address] Care Team Providers Name Role Phone Melvin Palacios MD Primary Care Provider Reason for Visit Reason Onset Date Comments Medication Request 11/06/2004 wellbutrin Encounter Details Date Type Department Care Team Description 11/06/[address] [facility] [place] on Request Clinic [place] ZENON Maddox (wellbutrin) [address] [place] [phone] [phone] Social History Tobacco Use Types Packs/Day Years [...] Primary documented in this encounter Care Teams Operations Section Manager Relationship Specialty Start Date End Date Melivn Palacios MD PCP - General 06/22/99 09/20/10 [address]za [id number] documented as of this encounter
--- OUTSIDE RECORDS SUMMARY | 2022-05-20 09:11 | XMS_ITS | Encounter Summary ---
:1975 Author Organization [place] Address [address] [place] [address] Care Team Providers Name Role Phone Melvin Palacios MD Primary Care Provider Encounter Details Date Type Department Care Team Description 11/04/[address] [facility] Andreea Keita [address] [place], [place] [address] Social History Tobacco Use [...] on filedocumented in this encounter Care Teams Conveyor Installer Relationship Specialty Start Date End Date Melvin Palacios MD PCP - General 06/22/99 09/20/10 [address] [id number] documented as of this encounter
--- OUTSIDE RECORDS SUMMARY | 2022-05-20 09:11 | XMS_ITS | Encounter Summary ---
:1975 Author Organization [place] Address [address] [place] [address] Care Team Providers Name Role Phone Melvin Palacios MD Primary Care Provider Encounter Details Date Type Department Care Team Description 11/04/2002 Office Visit [facility] DINORA GNOSIS NOT YET DEFINED [place] (Primary Dx) [address] [place] [address] Social History Tobacco Use Types [...] Analysis Performed At [facility] gist Range Method Time Signature Specimen Throat [place] Description [facility] Culture Micro No Beta [place] Streptococcus [facility] Report status FINAL [id number] [facility] Specimen Anatomical Collection Method Collection Time Receive d Time (Source) Location / / Volume Laterality 11/04/2002 9:28 AM 3 9:33 CDT AM CDT Transcripton Interface LABORATORY Performing Organization Address City/[facility]/ZIP Code Phon e Number [facility] [address] [place] [address] [facility] STREP GROUP A AG (RAPID) (11/04/2002 9:28 AM CDT) Component Value Ref Test Analysis Performed At [facility] Range Method Time Signature Specimen Throat [place] Description [facility] Rapid Strep A NEGATIVE: No Group A strepto coccal antigen detected by immunoassay, await [place] Screen culture report. [facility] Report status FINAL [id number] [facility] Specimen Anatomical Collection Method Collection Time Receive d Time (Source) Location / / Volume Laterality 11/04/2002 9:28 AM 3 9:33 CDT AM CDT Transcripton Interface LABORATORY Performing Organization Address [facility]/ZIP Code Phon e Number [facility] [address] [place] [address] [facility] documented in this encounter Visit Diagnoses Diagnosis DIAGNOSIS NOT YET DEFINED - Primary documented in this encounter Care Teams Physical Security Engineer Relationship Specialty Start Date End Date Melvin Palacios MD PCP - General 06/22/99 09/20/10 [address] [id number] documented as of this encounter
--- OUTSIDE RECORDS SUMMARY | 2022-05-20 09:11 | XMS_ITS | Encounter Summary ---
:1975 Author Organization [place] Address [address] [place] [address]. [place] [address] Care Team Providers Name Role Phone Melvin Palacios MD Primary Care Provider Encounter Details Date Type Department Care Team Description 11/16/2003 Delivery Summary [facility] Pilar Sandy, (Waitstaff Captain) Waitstaff Captain [address] [facility] [phone] [facility] [place] [address] [place] [address] (Wo rk) Social History Tobacco [...] [id number] _ PILAR SANDY MD [place]: Document: [id number] [place], [place] Name: DARIANA VALDEZ DELIVERY SUMMARY Page 2 of 1 LCN: ASHLEY DSC: 11/18/2003 [place], [place] Name: MR#: : Admit Date: DARIANA VALDEZ [id number] 1975 11/16/2003 Doctor: PILAR SANDY MD DELIVERY SUMMARY Page 1 of 1 documented in this encounter Plan of Treatment Not on filedocumented as of this encounter Visit Diagnoses Not on filedocumented in this encounter Care Teams Consulting Services Manager Relationship Specialty Start Date End Date Melvin Palacios MD PCP - General 06/22/99 09/20/10 [address] [id number] documented as of this encounter
--- OUTSIDE RECORDS SUMMARY | 2022-05-20 09:11 | XMS_ITS | Encounter Summary ---
:1975 Author Organization [place] Address [address] [place] [address] Care Team Providers Name Role Phone Melvin Palacios MD Primary Care Provider Reason for Visit Reason Comments Consult Encounter Details Date Type Department Care Team Description 03/29/2004 Office Visit [facility] [place] DEPRESSYobani VE DISORDER Clinic [place] ZENON Maddox N[place] (Primary Dx) [address] [facility] [address] [place] [address] [phone] Social History Tobacco Use Types Packs/Day Years [...] Primary documented in this encounter Care Teams Cuprous Chloride Operator Relationship Specialty Start Date End Date Melvin Palacios MD PCP - General 06/22/99 09/20/10 [address] [id number] documented as of this encounter
--- OUTSIDE RECORDS SUMMARY | 2022-05-20 09:11 | XMS_ITS | Encounter Summary ---
:1975 Author Organization [place] Address [address] [place] [address]. [place] [address] Care Team Providers Name Role Phone Melvin Palacios MD Primary Care Provider Reason for Visit Reason Comments Refill Request Encounter Details Date Type Department Care Team Description 03/23/2003 Refill [facility] Edilia Carlos PA-C Refill Request [address] [place], [place] [phone] Social History Tobacco Use Types Packs/Day Years Used Date Smoking Tobacco: Never Assessed Sex Assigned at Date Recorded Not on file documented as of this encounter Miscellaneous Notes Telephone Encounter - 03/23/2003 11:59 PM CDT >> EDILIA CARLOS [facility] Mar 24, 2003 4:43 PM Rx faxed. Tiff >> DAMARI Cruz Mar 23, 2003 9:46 AM >> CALL RECEIVED. Contact: Pt. is requesting to go down to 20 mg of prozac, pharmacy in place. Nikolas Bowman CMA documented in this encounter Plan of Treatment Not on filedocumented as of this encounter Visit Diagnoses Not on filedocumented in this encounter Care Teams Oyster Opener Relationship Specialty Start Date End Date Melvin Palacios MD PCP - General 06/22/99 09/20/10 [address] [id number] documented as of this encounter
--- OUTSIDE RECORDS SUMMARY | 2022-05-20 09:11 | XMS_ITS | Encounter Summary ---
:1975 Author Organization [place] Address [address] [place] [address] Care Team Providers Name Role Phone Melvin Palacios MD Primary Care Provider Reason for Visit Reason Comments Refill Request Breanna kathleen [place] Encounter Details Date Type Department Care Team Description 02/18/2003 Refill [facility] Reed Carlos PA-C Refill Request Clinic [facility] INTEGRATIVE (Breanna kathleen [place] [address] [place] [address] ISAIAS MONCADA [facility] [phone] [facility] [phone] [place], [place] [address] (Wo rk) Social History Tobacco Use Types Packs/Day Years Used Date Smoking Tobacco: Never Assessed Sex Assigned at Date Recorded Not on file documented as of this encounter Miscellaneous Notes Telephone Encounter - 02/18/2003 11:59 PM CDT >> DAMARI BOWMAN FriFeb 18, 2003 4:24 PM notified needs appt. Nikolas Bowman BARN HAND >> MELVIN PALACIOS FriFeb 18, 2003 4:14 PM needs to be seen within 1 month >> ERIKA WEBB FriFeb 18, 2003 4:02 PM >> CALL RECEIVED. Contact: LAST FILLED 01/20/03 LAST SEEN 03/15/03 Erika Webb CNA documented in this encounter Plan of Treatment Not on filedocumented as of this encounter Visit Diagnoses Not on filedocumented in this encounter Care Teams Customs Broker Relationship Specialty Start Date End Date Melvin Palacios MD PCP - General 06/22/99 09/20/10 [address] [id number] documented as of this encounter
--- OUTSIDE RECORDS SUMMARY | 2022-05-20 09:11 | XMS_ITS | Encounter Summary ---
:1975 Author Organization [place] Address [address] [place] [address] Care Team Providers Name Role Phone Melvin Palacios MD Primary Care Provider Reason for Visit Reason Comments Imm/Inj record Encounter Details Date Type Department Care Team Description 10/18/1999 Telephone [facility] Autumn Leach LP N Imm/Inj (record) Physicians [address] [address] Social History Tobacco Use [...] on filedocumented in this encounter Care Teams Oil Well Logger Relationship Specialty Start Date End Date Melvin Palacios MD PCP - General 06/22/99 09/20/10 [address] [address] documented as of this encounter
--- OUTSIDE RECORDS SUMMARY | 2022-05-20 09:11 | XMS_ITS | Encounter Summary ---
:1975 Author Organization [place] Address [address] [facility] [place] [address] Care Team Providers Name Role Phone Melvin Palacios MD Primary Care Provider Reason for Visit Reason Comments RECHECK medication - Wellbutrin Encounter Details Date Type Department Care Team Description 05/17/2004 Office Visit [facility] [place] DEPRESSYobani VE DISORDER Clinic [place] ZENON Maddox [facility] (Primary Dx) [address] [address] [phone] Social History Tobacco Use Types Packs/Day Years Used Date Smoking Tobacco: Never Alcohol Use Standard Drinks/Week Comments Yes 0 (1 standard drink = 0.6 oz pure alcoho l) social Sex Assigned at Date Recorded Not on file documented as of this encounter Last Filed Vital Signs Vital Sign Reading Time Taken Comments Blood Pressure 110/64 05/17/2004 9:51 AM PAPER HANDLER Pulse - - Temperature - - Respiratory Rate - - Oxygen Saturation - - Inhaled Oxygen Concentration - - Weight - - Height - - Body Mass Index - - documented in this encounter Progress Notes 05/17/2004 9:30 AM PAPER HANDLER Dariana Osman presents to clinic today for [...] Primary documented in this encounter Care Teams Oil Burner Installer Relationship Specialty Start Date End Date Melvin Palacios MD PCP - General 06/22/99 09/20/10 [address] [id number] documented as of this encounter
--- OUTSIDE RECORDS SUMMARY | 2022-05-20 09:11 | XMS_ITS | Encounter Summary ---
:1975 Author Organization [place] Address [address] [place] [address] Care Team Providers Name Role Phone Melvin Palacios MD Primary Care Provider Reason for Visit Reason Comments Medication Request prozac Encounter Details Date Type Department Care Team Description 11/15/2002 [facility] (prozac ) [address] [place] [address] ISAIAS MONCADA [facility] [address] [facility] [phone] [place], [place] [address] (Wo rk) Social History Tobacco Use Types Packs/Day Years Used Date Smoking Tobacco: Never Assessed Sex Assigned at Date Recorded Not on file documented as of this encounter Miscellaneous Notes Telephone Encounter - 11/15/2002 11:59 PM CDT >> DAMARI Goldman Nov 16, 2002 8:57 AM pt. states she was already notified. Nikolas Bowman MOPPER >> SRIDEVI MAGALLON FriNov 15, 2002 4:43 PM LMTCB to [facility] desk. Sridevi Magallon RN >> DARLINE QUEEN FriNov 15, 2002 3:33 PM O.K. to increase dose, will do for 3mos and then should reevaluate. Tiff >> DESIRE BISHOP [facility] Nov 15, 2002 1:57 PM Started prozac [...] up the dose/ please cll to discuss #[id number]/ chart requested documented in this encounter Plan of Treatment Not on filedocumented as of this encounter Visit Diagnoses Not on filedocumented in this encounter Care Teams Sharples Machine Operator Relationship Specialty Start Date End Date Melvin Palacios MD PCP - General 06/22/99 09/20/10 [address] [id number] documented as of this encounter
--- OUTSIDE RECORDS SUMMARY | 2022-05-20 09:11 | XMS_ITS | Encounter Summary ---
:1975 Author Organization [place] Address [address] [place] [address]. [place] [address] Care Team Providers Name Role Phone Melvin Palacios MD Primary Care Provider Reason for Visit Reason Onset Date Comments Patient Inquiry 07/24/2004 Encounter Details Date Type Department Care Team Description 07/24/2004 Telephone [facility] [place] atient Inquiry [place] ZENON Maddox [address] [place] [phone] Social History Tobacco Use Types Packs/Day Years Used Date Smoking Tobacco: Never Alcohol Use Standard Drinks/Week Comments Yes 0 (1 standard drink = 0.6 oz pure alcoho l) social Sex Assigned at Date Recorded Not on file documented as of this encounter Miscellaneous Notes Telephone Encounter - Melissa Pickett - 07/27/2004 1:25 PM CST Pt informed. Melissa Pickett RN ER PATCHER Telephone Encounter - Tobi Beltran - 07/26/2004 8:25 PM VENEER PATCHER please call Dariana know that I sent 1 year rx of OrthoTriCyclen to [facility]. If she would prefer to go back to the patch for any particular reason, I would be happy to change rx. I attempted to reachher [place], but she was unavailable. ER PATCHER Telephone Encounter - Sridevi Magallon - 07/26/2004 [...] November and had post in December at [facility] BALANCE WHEEL MOTION INSPECTOR. Used to be on Ortho Tri Cyclen and then Ortho Evra. Is going to be coming in on Friday with her son, she said she could talk to you at this time too ifyou needed her to. Sridevi Magallon RN ER PATCHER Telephone Encounter - 07/24/2004 10:20 AM VENEER PATCHER Staff Message copied by PAU FRANKLIN on 07/24/2004 at 10:20 AM ------ Message from: DILLON RODAS Created: 07/24/2004 at 10:05 AM Regarding: AW-pres [phone] Wants to get a pres for regulating hormones.....ALso has a question about Wellbutrin ER PATCHER documented in this encounter Plan of Treatment Not on filedocumented as of this encounter Visit Diagnoses Diagnosis Other general counseling and advice for contraceptive management - Primary documented in this encounter Care Teams Topstitcher Zigzag Relationship Specialty Start Date End Date Melvin Palacios MD PCP - General 06/22/99 09/20/10 [address] [phone] documented as of this encounter
--- OUTSIDE RECORDS SUMMARY | 2022-05-20 09:11 | XMS_ITS | Encounter Summary ---
:1975 Author Organization [place] Address [address] [place] [address] Care Team Providers Name Role Phone Melvin Palacios MD Primary Care Provider Reason for Visit Reason Comments UTI Encounter Details Date Type Department Care Team Description 03/11/2003 Office Visit [facility] Harris Garcia DYSURIA (Primary Dx); Clinic [place] MD Otoniel SPRYOSSI SHOULDER/ARM NOS; [address] [facility] IRREGULAR MENSTRUATION [place], [place] [address] [place] [address] [address] [place] [address] Social History Tobacco Use Types [...] HCG, QUAL URINE (03/11/2003 10:26 AM CDT) [facility] gist Method Time Signature HCG Qual Urine Positive (A) NEG [facility] Specimen Anatomical Collection Method Collection Time Receive d Time (Source) Location / / Volume Laterality 03/11/2003 10:26 03/11/2003 AM CDT 10:27 AM CDT Harris Garcia MD LABORATORY Performing Organization Address City/State/[facility] Code Phon e Number [facility] [address] [place], [place] [id number] [facility] UA MICRO IF POSITIVE (03/11/2003 10:08 AM CDT) Analysis Performed At [facility] logist Time Signature Color Urine Yellow [place] Yellow [facility] Appearance Clear [place] Urine Clear [facility] Glucose Urine Negative NEG mg/dL [place] Negative [facility] Bilirubin Urine Negative NEG [place] Negative [facility] Ketones Urine Negative NEG mg/dL [place] Negative [facility] Specific 1.025 1.001 - [place] Urine 1.035 [facility] Comment: 1.025 Blood Urine Negative NEG [facility] Negative pH Urine 5.0 5.0 - 7.0 pH [facility] RI DGE [facility] Comment: 5.0 Protein Albumin Urine Negative NEG mg/dL [facility] Negative Urobilinogen Urine 0.2 0.2 - 1.0 EU/dL [facility] Comment: 0.2 Nitrite Urine Negative NEG [facility] R IDGE [facility] Negative Leukocyte Esterase Urine Negative NEG [facility] Negative Source Midstream Urine [facility] Midstream Urine Specimen Anatomical Collection Method Collection Time Receive d Time (Source) Location / / Volume Laterality 03/11/2003 10:08 03/11/2003 AM CDT 10:13 AM CDT Harris Garcia MD LABORATORY Performing Organization Address City/State/ZIP Code Phon e Number [facility] [address] [place] [address] [facility] documented in this encounter Visit Diagnoses Diagnosis Dysuria - Primary Sprain and strain of unspecified site of shoulder and upper arm Irregular menstrual cycle documented in this encounter Care Teams Ornamental Metal Fabricator Apprentice Relationship Specialty Start Date End Date Melvin Palacios MD PCP - General 06/22/99 09/20/10 [address] [id number] documented as of this encounter
== END 2022-05-20 08:57 | disposition home or self-care (01) ==
LOC: OP CLINIC 08:57
PROVIDERS: PCP Family Medicine; Visit Provider Internal Medicine
DX: R93.3 Abnormal findings on diagnostic imaging of other parts of digestive tract (principal); K63.5 Polyp of colon; K57.30 Diverticulosis of large intestine without perforation or abscess without bleeding
CPT/HCPCS: 45380; 45385; 88305; J2250; J3010

== ENCOUNTER 2022-08-06 08:17 | Outpatient (CLI) | payer OTHER, SELFPAY ==
[2022-08-06 09:48] LABS: Albumin* 4.1 g/dL (3.3-5.0); Chloride* 108 mmol/L (96-114)
[2022-08-06 09:49] LABS: Potassium* 4.4 mmol/L (3.6-5.1); Sodium* 140 mmol/L (135-149)
[2022-08-06 09:51] LABS: Aspartate Amino Transferase* 18 U/L (12-35); Bilirubin Total* 0.5 mg/dL (0.1-1.5); Blood Urea Nitrogen* 12 mg/dL (5-24); Carbon Dioxide* 28 mmol/L (20-32); Cholesterol* 176 mg/dL (90-199); Creatinine* 0.8 mg/dL (0.5-1.5); Estimated Glomerular Filt Rate 93 ml/min; Glucose* 100 mg/dL (60-115); Total Protein* 6.5 g/dL (6.0-8.3)
[2022-08-06 09:52] LABS: Alanine Aminotransferase* 15 U/L (4-35); Alkaline Phosphatase* 48 U/L (40-150); HDL Cholesterol* 60 mg/dL (>=50); LDL Cholesterol Calculated 89 mg/dL (<100); Triglycerides* 136 mg/dL (40-149)
[2022-08-06 10:09] LABS: Vitamin D 25 Hydroxy* 27 ng/mL (30-80)
== END 2022-08-06 08:18 | disposition home or self-care (01) ==
PROVIDERS: PCP Family Medicine; Visit Provider Family Medicine
DX: E55.9 Vitamin D deficiency, unspecified (principal); Z13.6 Encounter for screening for cardiovascular disorders
CPT/HCPCS: 80053; 80061; 82306

== ENCOUNTER 2022-09-02 15:43 | Outpatient (CLI) | payer OTHER, SELFPAY | END 2022-09-02 15:44 | disposition home or self-care (01) | LOC: NFLDREF 09-03 11:17 | PROVIDERS: PCP Family Medicine; Referring Provider Family Medicine; Visit Provider Internal Medicine | DX: R30.0 Dysuria (principal); N30.90 Cystitis, unspecified without hematuria | CPT/HCPCS: 87086; 87186 ==

== ENCOUNTER 2022-10-11 08:51 | Outpatient (CLI) | payer OTHER, SELFPAY | END 2022-10-11 08:52 | disposition home or self-care (01) | PROVIDERS: PCP Family Medicine; Visit Provider Family Medicine | DX: E55.9 Vitamin D deficiency, unspecified (principal); E66.9 Obesity, unspecified; R53.83 Other fatigue | CPT/HCPCS: 82306; 84443 ==

== ENCOUNTER 2022-12-13 08:33 | Outpatient (CLI) | payer OTHER, SELFPAY | END 2022-12-13 08:34 | disposition home or self-care (01) | PROVIDERS: PCP Family Medicine; Visit Provider Family Medicine | DX: R35.0 Frequency of micturition (principal); R30.0 Dysuria | CPT/HCPCS: 87086; 87186 ==

== ENCOUNTER 2023-09-03 08:05 | Outpatient (CLI) | payer OTHER, SELFPAY | END 2023-09-03 08:06 | disposition home or self-care (01) | LOC: NFLDREF 09-05 10:19 | PROVIDERS: PCP Family Medicine; Referring Provider Family Medicine; Visit Provider Family Medicine | DX: Z00.00 Encounter for general adult medical examination without abnormal findings (principal); E55.9 Vitamin D deficiency, unspecified; R03.0 Elevated blood-pressure reading, without diagnosis of hypertension; E66.9 Obesity, unspecified; Z13.6 Encounter for screening for cardiovascular disorders; Z13.9 Encounter for screening, unspecified | CPT/HCPCS: 80053; 80061; 82306 ==

== ENCOUNTER 2023-09-09 12:50 | Outpatient (CLI) | payer OTHER, SELFPAY ==
--- NOTE | 2023-09-09 13:00 | MM_ITS ---
Patient: JUAN CARLOS VALDEZ Facility:?[facility] Patient ID:?[id number] Site Patient ID:?[id number]. Site :?1975 Study:?XRay-Breast Bilateral 3D screening mammogram w/cad-09/09/2023 1:16:18 PM Ordering Physician:ARASH Final Report: BILATERAL SCREENING MAMMOGRAM WITH COMPUTER-AIDED DETECTION AND TOMOSYNTHESIS TECHNIQUE: CC and MLO views were obtained. These mammographic images have been obtained using full-field digital technique. These mammographic images were interpreted with the benefit of computer-aided detection. Breast Tomosynthesis was used in this interpretation. COMPARISON FILM: 10/29/22, 03/21/21, 03/14/20. FINDINGS: There are scattered areas of fibroglandular density. IMPRESSION: There is no radiographic evidence for malignancy. ASSESSMENT: BI-RADS Category 2: Benign RECOMMENDATION: Routine screening mammogram in 1 year. A lay language report of this examination will be provided to the patient. Elton Roman M.D. Diagnostic Radiologist [email or web address] DSM/sp R& Transcribed: 1:49 p.m. SP/Dictated by: Elton Roman MD @ 09/10/2023 9:47:00 AM Signed by:Zander Roman MD @09/10/2023 3:07:19 PM (Electronic Signature)
== END 2023-09-09 12:51 | disposition home or self-care (01) ==
LOC: MAMMO 12:51
PROVIDERS: PCP Family Medicine; Visit Provider Family Medicine
DX: Z12.31 Encounter for screening mammogram for malignant neoplasm of breast (principal)
CPT/HCPCS: 77063; 77067

== ENCOUNTER 2023-09-15 07:30 | Outpatient (RCR) | payer OTHER, SELFPAY | END 2023-10-30 13:22 | disposition home or self-care (01) | PROVIDERS: PCP Family Medicine; Visit Provider Orthopaedic Surgery | DX: M17.12 Unilateral primary osteoarthritis, left knee (principal); Z51.89 Encounter for other specified aftercare | CPT/HCPCS: 97110; 97161 ==